=== PATIENT | female | born 1945 | race Caucasian/White ===

== ENCOUNTER 2016-08-24 09:00 | Inpatient (IN) ==
--- NOTE | 2016-08-24 09:12 | Emergency Department Note ---
Disposition Clinical Impression: Acute exacerbation of chronic obstructive airways disease Acute and chronic respiratory failure Qualifiers: Respiratory failure complication: hypoxia Qualified Code(s): J96.21 - Acute and chronic respiratory failure with hypoxia Warfarin toxicity Qualifiers: Encounter type: initial encounter Injury intent: accidental or unintentional Qualified Code(s): T45.511A - Poisoning by anticoagulants, accidental ( unintentional), initial encounter Disposition: Admitted As Inpatient Referrals: Christoph Hughes DO [Primary Care Provider] - SOB HPI - General Stated Complaint: DEBBIE, COPD Time Seen by Provider: 08/24/16 09:10 Source: patient Mode of arrival: ambulatory Limitations: no limitations Nursing Notes Reviewed: Yes Vital Signs Reviewed: Yes - History of Present Illness Pt Subjective Complaint: shortness of breath, cough Onset (ago): day(s) (3) Context: recent illness Severity: moderate Consistency/Duration: constant, gradually worsening Improves with: oxygen, rest, bronchodilators Worsens with: lying flat, exertion Known history of: COPD Treatment prior to arrival: oxygen Cough present: Yes Cough Description: Involuntary Cough Frequency: Intermittent Sputum production: Yes Sputum Amount: Scant Sputum Color: Clear - Related Data Home oxygen amount: 2 liters Home Medications Medication Instructions Recorded Confirmed Albuterol Sulfate [Albuterol 1 - 2 puff IH Q4HR PRN 11/24/15 04/16/16 Inhaler] Allopurinol [Zyloprim 100 MG] 100 mg PO DAILY 11/24/15 04/16/16 Bran/Gum/Fib/Na/Psyl/Kelp/Pec 1,000 mg PO DAILY 11/24/15 04/16/16 [Fiber 6 Tablet] Budesonide/Formoterol 160/4.5 2 puff IH BIDR 11/24/15 04/16/16 [Symbicort 160/4.5] Calcium Carbonate [Calcium] 500 mg PO BID 11/24/15 04/16/16 Cholecalciferol (D-3) [Vitamin D] 2,000 unit PO DAILY 11/24/15 04/16/16 Esomeprazole Magnesium [Nexium] 40 mg PO DAILY 11/24/15 04/16/16 Fluticasone Propionate Nasal 1 spray NS DAILY 11/24/15 04/16/16 [Flonase] Folic Acid 1 mg PO DAILY 11/24/15 04/16/16 Furosemide [Lasix] 40 mg PO BID 11/24/15 04/16/16 Gabapentin [Neurontin] 200 mg PO HS 11/24/15 04/16/16 Loratadine [Claritin] 10 mg PO DAILY 11/24/15 04/16/16 Metoprolol XL (24 HR) Succ [Toprol 12.5 mg PO BID 11/24/15 04/16/16 Xl] Montelukast [Singulair] 10 mg PO DAILY 11/24/15 04/16/16 Nitroglycerin [Nitrostat] 0.4 mg SL AD PRN 11/24/15 04/16/16 Nortriptyline [Pamelor] 10 mg PO HS 11/24/15 04/16/16 Potassium Chloride [K-Tab ER] 20 meq PO BID 11/24/15 04/16/16 Roflumilast [Daliresp] 500 mcg PO DAILY 11/24/15 04/16/16 Vitamin B Complex [B Complex] 1 tab PO DAILY 11/24/15 04/16/16 Warfarin [Coumadin] 5 mg PO AD 11/24/15 04/16/16 L. Rhamnosus GG/Inulin [Culturelle 1 tab PO BID 12/17/15 04/16/16 Capsule] Umeclidinium [place] [Incruse 1 puff IH DAILY 12/17/15 04/16/16 Ellipta] Atorvastatin [Lipitor] 10 mg PO HS 01/01/16 04/16/16 Docusate Sodium [Dok] 200 mg PO BID 01/01/16 04/16/16 Previous Rx's Medication Instructions Recorded Amoxicillin/Clavulanate [Augmentin] 875 mg PO BIDWM #14 tablet 04/12/16 Fluconazole [Diflucan] 100 mg PO DAILY #7 tablet 04/12/16 PredniSONE [Prednisone] 10 mg PO DAILY #63 tab.ds.pk 04/12/16 Pantoprazole [Protonix] 40 mg IV DAILY vial 04/17/16 PredniSONE [Prednisone] 50 mg PO DAILY #5 tablet 06/05/16 Sulfamethoxazole/Trimeth DS 1 each PO BID #14 tablet 06/05/16 [Bactrim DS] Allergies Allergy/AdvReac Type Severity Reaction Status Date / Time ceftriaxone [From Rocephin] Allergy Severe Hives Verified 06/05/16 09:12 ciprofloxacin [From Cipro HC] Allergy Severe Hives Verified 06/05/16 09:12 levofloxacin [From Levaquin] Allergy Severe Hives Verified 06/05/16 09:12 vancomycin Allergy Severe Rash Verified 06/05/16 09:12 hydrocortisone Allergy Intermediate Hives Verified 06/05/16 09:12 [From [facility]] All systems ED: reviewed and negative except as stated. Constitutional: Denies: fever Respiratory: Reports: cough, dyspnea, wheezes Gastrointestinal: Denies: nausea, vomiting, diarrhea Past Medical History - Past Medical History Source: patient, old records reviewed, nursing notes reviewed Medical history: Reports: arthritis, atrial fibrillation, cardiomyopathy, CHF, COPD, fibromyalgia, hypertension, myocardial infarction, osteoporosis, RA, other Surgical history: Reports: colectomy Psychiatric history: Reports: no psych history - Social History Smoking Status: Former smoker Smokeless Tobacco Status: No Alcohol use: Reports: none Drug use: Reports: none Physical Exam - General Limitations: no limitations General appearance: alert, in no apparent distress - Head Head exam: atraumatic, normocephalic, normal inspection - Eye Eye exam: Present: normal appearance, PERRL, EOMI - Expanded Eye Exam Pupils: Left: reactive - ENT ENT exam: normal exam, normal oropharynx, mucous membranes moist - Expanded ENT Exam External ear exam: Present: normal external inspection Mouth exam: Present: normal external inspection Teeth exam: Present: normal inspection Throat exam: Present: normal inspection - Neck Neck exam: Present: normal inspection, full ROM, trachea midline - Chest Chest inspection: Present: normal inspection, symmetric chest wall rise - Respiratory Respiratory exam: Present: wheezes (scattered, dyspneic speaks in short phrases) - Cardiovascular Cardiovascular exam: Present: regular rate, normal rhythm, normal heart sounds - Abdominal Exam Abdominal exam: Present: soft, Non-Tender. Absent: tenderness, distention, guarding, rebound, rigidity - Extremities Exam Extremities exam: Present: normal inspection, full ROM. Absent: tenderness, pedal edema - Expanded Upper Extremity Exam Shoulder exam: Present: normal inspection, full ROM Arm exam: Present: normal inspection, full ROM Elbow exam: Present: normal inspection, full ROM Forearm/Wrist exam: Present: normal inspection, full ROM Hand exam: Present: other (clubbing of nails) Vascular exam: Normal: capillary refill, radial pulse - Expanded Lower Extremity Exam Hip/Pelvis exam: Present: normal inspection, full ROM Upper leg exam: Present: normal inspection, full ROM Knee exam: Present: normal inspection, full ROM Lower leg exam: Present: normal inspection, full ROM Ankle exam: Present: normal inspection, full ROM Foot/toe exam: Present: normal inspection, full ROM Neurovascular/Tendon exam: Absent: motor deficit, sensory deficit, tendon deficit - Back Exam Back exam: Present: normal inspection, full ROM. Absent: tenderness - Neurological Exam Neurological exam: Present: alert, oriented X3 - Expanded Neurological Exam Patient oriented to: Present: person, place, time Coma Scale Eye Opening: Spontaneous Coma Scale Motor Response: Obeys Commands Coma Scale Verbal Response: Oriented Coma Scale Total: 15 - Psychiatric Psychiatric exam: Present: normal affect, normal mood - Skin Skin exam: Present: warm, dry, intact, normal color Course Vital Signs Temperature 98.1 F 08/24/16 09:04 Pulse Rate 86 08/24/16 09:04 Respiratory Rate 20 08/24/16 09:04 Blood Pressure 116/70 08/24/16 09:04 O2 Sat by Pulse Oximetry 100 08/24/16 09:04 Temperature 98.1 F 08/24/16 09:04 Pulse Rate 86 08/24/16 09:04 Respiratory Rate 21 08/24/16 09:45 Blood Pressure 116/70 08/24/16 09:04 O2 Sat by Pulse Oximetry 98 08/24/16 09:45 Oxygen Delivery Oxygen Delivery Nasal Cannula Shortness of Breath/Dyspnea - Differential Diagnosis Likely: acute exacerbation of chronic obstructive airways disease, congestive heart failure, pneumonia, asthma with exacerbation, pulmonary embolism, pneumothorax, arrhythmia - Medical Records Medical records reviewed: Yes I reviewed the patient's medical records. - Lab Data Lab results reviewed: Yes I reviewed the patient's lab results. Result diagrams: 08/24/16 09:44 08/24/16 09:44 Lab Results 08/24/16 08/24/16 08/24/16 Range/Units 09:44 09:44 09:44 WBC 7.6 (4.3-11.1) K/mcL RBC 4.74 (3.82-4.97) M/mcL Hgb 12.7 (11.5-15.4) g/dL Hct 39.5 (35.3-44.9) % MCV 83.3 (83.0-100.0) fL MCH 26.8 L (28.0-33.3) pg MCHC 32.2 (31.6-35.5) g/dL RDW 15.1 H (11.5-14.5) % Plt Count 171 (140-400) K/mcL MPV 10.1 (9.4-12.4) fL Immature Gran % 0.4 (0-4) % Seg Neutrophils % 78.0 % Lymphocytes % 11.6 % Monocytes % 9.5 % Eosinophils % 0.0 % Basophils % 0.5 % Neutrophils # 5.9 (1.6-8.9) K/mcL Lymphocytes # 0.9 (0.6-4.6) K/mcL Monocytes # 0.7 (0.0-1.3) K/mcL Eosinophils # 0.0 (0.0-0.6) K/mcL Basophils # 0.0 (0.0-0.2) K/mcL PT (9.4-12.1) Seconds INR APTT (26.0-36.0) Seconds Sodium 135 L (136-145) mEq/L Potassium 3.2 L (3.5-4.5) mEq/L Chloride 101 (98-109) mEq/L Carbon Dioxide 24 (19-29) mEq/L BUN 17 (7-20) mg/dL Creatinine 0.86 (0.57-1.11) mg/dL Est GFR ( Amer) > 60 (> 60) Est GFR (Non-Af Amer) > 60 (> 60) BUN/Creatinine Ratio 20 (6-26) Glucose 78 (70-99) mg/dL Calculated Osmolality 280 (280-300) Calcium 9.0 (8.6-10.8) mg/dL Troponin I 0.00 (0-0.03) ng/mL B-Natriuretic Peptide (0-100) pg/mL 08/24/16 08/24/16 Range/Units 09:44 09:44 WBC (4.3-11.1) K/mcL RBC (3.82-4.97) M/mcL Hgb (11.5-15.4) g/dL Hct (35.3-44.9) % MCV (83.0-100.0) fL MCH (28.0-33.3) pg MCHC (31.6-35.5) g/dL RDW (11.5-14.5) % Plt Count (140-400) K/mcL MPV (9.4-12.4) fL Immature Gran % (0-4) % Seg Neutrophils % % Lymphocytes % % Monocytes % % Eosinophils % % Basophils % % Neutrophils # (1.6-8.9) K/mcL Lymphocytes # (0.6-4.6) K/mcL Monocytes # (0.0-1.3) K/mcL Eosinophils # (0.0-0.6) K/mcL Basophils # (0.0-0.2) K/mcL PT 88.8 H* (9.4-12.1) Seconds INR 7.7 H* APTT 80.6 H (26.0-36.0) Seconds Sodium (136-145) mEq/L Potassium (3.5-4.5) mEq/L Chloride (98-109) mEq/L Carbon Dioxide (19-29) mEq/L BUN (7-20) mg/dL Creatinine (0.57-1.11) mg/dL Est GFR ( Amer) (> 60) Est GFR (Non-Af Amer) (> 60) BUN/Creatinine Ratio (6-26) Glucose (70-99) mg/dL Calculated Osmolality (280-300) Calcium (8.6-10.8) mg/dL Troponin I (0-0.03) ng/mL B-Natriuretic Peptide 132 H (0-100) pg/mL - Radiology Data Radiology results reviewed: Yes I reviewed the patient's radiology results. - EKG Data EKG attestation: Yes I reviewed and interpreted this EKG. EKG shows normal: Reports: sinus rhythm Rate: Reports: normal (85) Rhythm: Reports: NSR [place]/QRS: Reports: normal Interpretation: Reports: no acute changes
[2016-08-24] MEDS ORDERED: Ipratropium/Albuterol Neb 3 ML IH ONE (09:21)
[2016-08-24] MEDS ORDERED: methylPREDNISolone 125 MG/2 ML VIAL IVP ONE (09:21)
[2016-08-24 09:53] LABS: Basophils % 0.5 %; Hematocrit 39.5 % (35.3-44.9); Hemoglobin 12.7 g/dL (11.5-15.4); Immature Granulocytes % 0.4 % (0-4); Lymphocytes # 0.9 K/mcL (0.6-4.6); Lymphocytes % 11.6 %; Mean Corpuscular HGB Conc 32.2 g/dL (31.6-35.5); Mean Corpuscular Hemoglobin 26.8 pg (28.0-33.3); Mean Corpuscular Volume 83.3 fL (83.0-100.0); Mean Platelet Volume 10.1 fL (9.4-12.4); Monocytes # 0.7 K/mcL (0.0-1.3); Monocytes % 9.5 %; Neutrophils # 5.9 K/mcL (1.6-8.9); Platelet Count 171 K/mcL (140-400); Red Blood Count 4.74 M/mcL (3.82-4.97); Red Cell Distribution Width 15.1 % (11.5-14.5)
[2016-08-24 10:00] LABS: Activated Partial Thrombo Time 80.6 Seconds (26.0-36.0)
[2016-08-24 10:07] LABS: BUN/Creatinine Ratio 20 (6-26); Blood Urea Nitrogen 17 mg/dL (7-20); Carbon Dioxide 24 mEq/L (19-29); Chloride 101 mEq/L (98-109); Glucose 78 mg/dL (70-99); INR 7.7; Osmolality,Calculated 280 (280-300); Potassium 3.2 mEq/L (3.5-4.5); Prothrombin Time 88.8 Seconds (9.4-12.1); Sodium 135 mEq/L (136-145); eGFR For African Americans > 60 (> 60); eGFR For Non-African Americans > 60 (> 60)
[2016-08-24] MEDS ORDERED: Doxycycline 100 MG CAPSULE PO ONE (10:39)
[2016-08-24] MEDS ORDERED: Acetaminophen 325 MG TABLET PO PRN (10:53)
[2016-08-24] MEDS ORDERED: Ondansetron 4 MG/2 ML VIAL IVP PRN (10:53)
[2016-08-24] MEDS: Budesonide/Formoterol 160/4.5 MDI IH SCH ×2 (11:16→19:43)
[2016-08-24] MEDS: Ipratropium/Albuterol Neb 3 ML IH SCH ×3 (11:16→19:43)
--- NOTE | 2016-08-24 11:19 | Internal Med History&Physical ---
Date of Encounter: 08/24/16 Time of Encounter: 10:50 Assessment and Plan (1) Acute exacerbation of chronic obstructive airways disease Current visit: Yes Status: Acute Secondary to sinusitis. Today, she comes because of shortness of breath and productive cough. A week ago she developed upper respiratory symptoms with runny nose and postnasal drip. 2 days later her shortness of breath and cough worsen with increase amount of a brownish color sputum. no fever. No chills. No hemoptysis. Chest x-ray showed unchanged bibasilar opacities and blunting of left costophrenic angle. Albuterol Atrovent nebulizations IV Solu-Medrol Mucinex Oral doxycycline (2) Supratherapeutic INR Current visit: Yes Status: Acute INR 7.7. Upon questioning, patient stated that last June her INR was 2.3, INR goal is 2.5-3.5. She admits not eating well due to her respiratory symptoms and that might have contributed to her INR being so high. History of MVR with St Tj mechanical valve in 2007 on anticoagulation with Coumadin. Patient had an episode of acute blood loss anemia secondary to large retroperitoneal hematoma/right psoas hematoma with hemoperitoneum and right pericolic gutter with associated supratherapeutic INR 7.1 on 04/17/16. Hold Coumadin. close monitoring of INR and hemoglobin. No external bleeding. Patient is hemodynamically stable. (3) Chronic respiratory failure with hypoxia Current visit: Yes Status: Acute COPD, oxygen dependent at 2 L NC at bedtime and prn at baseline. (4) CKD (chronic kidney disease) stage 3, GFR 30-59 ml/min Current visit: No Status: Chronic at baseline. avoid nephrotoxins as possible. (5) H/O mitral valve replacement with mechanical valve Current visit: No Status: Chronic MVR with St Tj mechanical valve in 2007 on anticoagulation with Coumadin. Patient had an episode of acute blood loss anemia secondary to large retroperitoneal hematoma/right psoas hematoma with hemoperitoneum and right pericolic gutter with associated supratherapeutic INR 7.1 on 04/17/16. Patient has a MediPort because of hard to get IV access on her. INR is 7.7. Upon questioning, patient stated that last June her INR was 2.3 , INR goal is 2.5-3.5. She admits not eating well due to her respiratory symptoms and that might have contributed to her INR being so high. (6) Hypertension Current visit: No Status: Chronic BP is adequate Qualifiers: Hypertension type: essential hypertension Qualified Code(s): I10 - Essential (primary) hypertension (7) Warfarin toxicity Current visit: Yes Status: Acute INR 7.7. plan as above Qualifiers: Encounter type: initial encounter Injury intent: accidental or unintentional Qualified Code(s): T45.511A - Poisoning by anticoagulants, accidental (unintentional), initial encounter Internal Medicine - H&P: HPI Chief complaint: Progress shortness of breath and productive cough for 5 days. Admitted From: Home Plans for Post Hospital Care: Home History of present illness: Ms. Dewitt is a 70 year old female with past medical history of COPD, oxygen dependent at 2 L NC at bedtime and prn, CKD 3, and MVR with St Tj mechanical valve in 2007 on anticoagulation with Coumadin. Patient had an episode of acute blood loss anemia secondary to large retroperitoneal hematoma/right psoas hematoma with hemoperitoneum and right pericolic gutter with associated supratherapeutic INR 7.1 on 04/17/16. Patient has a MediPort because of hard to get IV access on her. Today, she comes because of shortness of breath and productive cough. A week ago she developed upper respiratory symptoms with runny nose and postnasal drip. 2 days later her shortness of breath and cough worsen with increase amount of a brownish color sputum. no fever. No chills. No hemoptysis. No bleeding. No abdominal pain. No urinary complaints. No focal deficit. No lower extremity edema. No Skin lesions. In ED, patient was in respiratory distress. She received duo nebs, IV Solu-Medrol 125 mg x 1 and oral doxycycline. INR is 7.7. Upon questioning, patient stated that last June her INR was 2.3, INR goal is 2.5-3.5. She admits not eating well due to her respiratory symptoms and that might have contributed to her INR being so high. Past Med Surg Social Fam HX - Past Medical History Medical history: arthritis, atrial fibrillation, cardiomyopathy, CHF, COPD, fibromyalgia, hypertension, myocardial infarction, osteoporosis, RA, other Psychiatric history: no psych history - Past Surgical History Surgical History: colectomy - Social History Smoking Status: Former smoker Smokeless Tobacco Status: No Alcohol use: none Drug use: none - Family History Mother Living Status: Hx Family Respiratory Disorders: Yes (emphysema) Hx Family Cancer: Yes Internal Medicine - H&P: Meds Albuterol Sulfate [Albuterol Inhaler] 1 - 2 puff IH Q4HR PRN 11/24/15 [History] Allopurinol [Zyloprim 100 MG] 100 mg PO DAILY 11/24/15 [History] Bran/Gum/Fib/Na/Psyl/Kelp/Pec [Fiber 6 Tablet] 1,000 mg PO DAILY 11/24/15 [ History] Budesonide/Formoterol 160/4.5 [Symbicort 160/4.5] 2 puff IH BIDR 11/24/15 [ History] Calcium Carbonate [Calcium] 500 mg PO BID 11/24/15 [History] Cholecalciferol (D-3) [Vitamin D] 2,000 unit PO DAILY 11/24/15 [History] Esomeprazole Magnesium [Nexium] 40 mg PO DAILY 11/24/15 [History] Fluticasone Propionate Nasal [Flonase] 1 spray NS DAILY 11/24/15 [History] Folic Acid 1 mg PO DAILY 11/24/15 [History] Furosemide [Lasix] 40 mg PO BID 11/24/15 [History] Gabapentin [Neurontin] 200 mg PO HS 11/24/15 [History] Loratadine [Claritin] 10 mg PO DAILY 11/24/15 [History] Metoprolol XL (24 HR) Succ [Toprol Xl] 12.5 mg PO BID 11/24/15 [History] Montelukast [Singulair] 10 mg PO DAILY 11/24/15 [History] Nitroglycerin [Nitrostat] 0.4 mg SL AD PRN 11/24/15 [History] Nortriptyline [Pamelor] 10 mg PO HS 11/24/15 [History] Potassium Chloride [K-Tab ER] 20 meq PO BID 11/24/15 [History] Roflumilast [Daliresp] 500 mcg PO DAILY 11/24/15 [History] Vitamin B Complex [B Complex] 1 tab PO DAILY 11/24/15 [History] Warfarin [Coumadin] 5 mg PO AD 11/24/15 [History] L. Rhamnosus GG/Inulin [Culturelle Capsule] 1 tab PO BID 12/17/15 [History] Umeclidinium [place] [Incruse Ellipta] 1 puff IH DAILY 12/17/15 [History] Atorvastatin [Lipitor] 10 mg PO HS 01/01/16 [History] Docusate Sodium [Dok] 200 mg PO BID 01/01/16 [History] Amoxicillin/Clavulanate [Augmentin] 875 mg PO BIDWM #14 tablet 04/12/16 [Rx] Fluconazole [Diflucan] 100 mg PO DAILY #7 tablet 04/12/16 [Rx] PredniSONE [Prednisone] 10 mg PO DAILY #63 tab.ds.pk 04/12/16 [Rx] Pantoprazole [Protonix] 40 mg IV DAILY vial 04/17/16 [Rx] PredniSONE [Prednisone] 50 mg PO DAILY #5 tablet 06/05/16 [Rx] Sulfamethoxazole/Trimeth DS [Bactrim DS] 1 each PO BID #14 tablet 06/05/16 [Rx] Allergies ceftriaxone [From Rocephin] Allergy (Severe, Verified 06/05/16 09:12) Hives ciprofloxacin [From Cipro HC] Allergy (Severe, Verified 06/05/16 09:12) Hives levofloxacin [From Levaquin] Allergy (Severe, Verified 06/05/16 09:12) Hives vancomycin Allergy (Severe, Verified 06/05/16 09:12) Rash hydrocortisone [From Cipro HC] Allergy (Intermediate, Verified 06/05/16 09:12) Hives All Systems PM: A 10-system review of systems was performed and is negative for pertinent findings except as documented above in the HPI. - Constitutional Vitals: Temp Pulse Resp BP Pulse Ox 98.1 F 91 20 116/81 100 08/24/16 09:04 08/24/16 11:00 08/24/16 11:00 08/24/16 11:00 08/24/16 11:00 General appearance: Present: cooperative, A&O X 3, pleasant, no acute distress, answers questions appropriately Exam: Speaking full sentences. - Head Head exam: Present: atraumatic, normocephalic - Eye Eye exam: Present: PERRL, sclera anicteric - ENT ENT exam: Present: mucous membranes dry - Neck Neck exam general surgery: Present: supple, trachea midline. Absent: lymphadenopathy - Respiratory Respiratory exam: Present: decreased breath sounds, wheezes (Mild wheezes) - Cardiovascular Cardiovascular exam: Present: RRR - GI/Abdominal GI/Abdominal exam: Present: normal bowel sounds, soft. Absent: distended, tenderness - Extremities Exam Extremities exam: Present: radial pulses palpable and symetrical. Absent: pedal edema - Back Exam Back exam: Absent: CVA tenderness (L), CVA tenderness (R) - Neurological Exam Neurological exam: Present: alert, oriented X3, no focal deficits, strengths equal and symetr throughout. Absent: facial droop, speech deficit - Skin Skin exam: Absent: rash Internal Med - H&P Results - Labs CBC & Chem 7: 08/24/16 09:44 08/24/16 09:44 - EKG Data Prior EKG available for review: yes When compared to previous EKG: there is no significant change EKG comments: 08/24/16 11:29 SR Hr 85
[2016-08-24] MEDS ORDERED: Albuterol 2.5 MG/3 ML NEBULIZER IH PRN (11:27)
[2016-08-24] MEDS: Doxycycline 100 MG CAPSULE PO SCH (21:39)
[2016-08-25] MEDS: Ipratropium/Albuterol Neb 3 ML IH SCH ×7 (01:02→22:47)
[2016-08-25 05:02] LABS: Basophils % 0.2 %; Hematocrit 33.9 % (35.3-44.9); Immature Granulocytes % 0.2 % (0-4); Lymphocytes % 11.4 %; Mean Corpuscular HGB Conc 32.7 g/dL (31.6-35.5); Mean Corpuscular Hemoglobin 27.3 pg (28.0-33.3); Mean Corpuscular Volume 83.5 fL (83.0-100.0); Mean Platelet Volume 10.8 fL (9.4-12.4); Monocytes # 0.8 K/mcL (0.0-1.3); Neutrophils # 7.1 K/mcL (1.6-8.9); Platelet Count 178 K/mcL (140-400); Red Blood Count 4.06 M/mcL (3.82-4.97); Segmented Neutrophils % 79.2 %
[2016-08-25 05:07] LABS: Hemoglobin 11.1 g/dL (11.5-15.4)
[2016-08-25 05:15] LABS: Prothrombin Time 89.6 Seconds (9.4-12.1)
[2016-08-25 05:16] LABS: INR 7.8
[2016-08-25 05:37] LABS: BUN/Creatinine Ratio 27 (6-26); Blood Urea Nitrogen 29 mg/dL (7-20); Calcium 8.7 mg/dL (8.6-10.8); Carbon Dioxide 24 mEq/L (19-29); Chloride 105 mEq/L (98-109); Glucose 105 mg/dL (70-99); Magnesium 1.5 mg/dL (1.6-2.6); Osmolality,Calculated 292 (280-300); Phosphorous 3.8 mg/dL (2.3-4.7); Potassium 3.5 mEq/L (3.5-4.5); Sodium 138 mEq/L (136-145); eGFR For African Americans > 60 (> 60); eGFR For Non-African Americans 50 (> 60)
[2016-08-25] MEDS: Doxycycline 100 MG CAPSULE PO SCH ×2 (08:14→20:44)
[2016-08-25] MEDS: predniSONE 20 MG TABLET PO SCH (08:15)
[2016-08-25] MEDS: Budesonide/Formoterol 160/4.5 MDI IH SCH ×2 (08:17→20:04)
[2016-08-25] MEDS ORDERED: Benzonatate 100 MG CAPSULE PO PRN (10:12)
[2016-08-25] MEDS ORDERED: *HR* Acetaminophen w/Cod 300-30 mg 1 TAB TABLET PO PRN (10:12)
[2016-08-25] MEDS ORDERED: Roflumilast [Daliresp] 500 MCG) PO SCH (10:15)
--- NOTE | 2016-08-25 10:22 | Internal Med Progress Note ---
Date of Encounter: 08/25/16 Time of Encounter: 09:15 - Assessment and plan (1) Acute exacerbation of chronic obstructive airways disease Current Visit: Yes Status: Acute Assessment and plan: Continue aerosols, prednisone. Added Fenesin. Continue doxycycline. Chest x- ray unremarkable for acute processes. She does currently have increased O2 requirement. Tessalon Perles during the day for cough, codeine at bedtime as needed for cough. She is still more short of breath than usual. She continues to have a mildly productive cough and had a scant amount of hemoptysis this morning, we will continue to trend. She is able to speak in complete sentences. ITS Impressions Chest X-Ray 08/24/16 09:21 IMPRESSION: 1. Grossly unchanged bibasilar opacification. 2. Unchanged blunting of the left costophrenic angle, which may be related to pleural fluid versus volume loss. D/ / Yong Aguila MD / Yong Aguila MD Interpreting Provider: Yong Aguila MD (2) Supratherapeutic INR Current Visit: Yes Status: Acute Assessment and plan: No signs of active bleeding. Patient had a scant amount of hemoptysis this morning, no signs of active bleeding. Likely secondary to bronchial irritation. No indication for reversal agent at this time. (3) Acute and chronic respiratory failure Current Visit: Yes Status: Acute Assessment and plan: At home, patient uses 2 L per nasal cannula intermittently as needed as well as at night. She is currently on 3 L continuously, we will continue to adjust (4) COPD (chronic obstructive pulmonary disease) Current Visit: No Status: Chronic Qualifiers: COPD type: unspecified COPD Qualified Code(s): J44.9 - Chronic obstructive pulmonary disease, unspecified (5) Constipation Current Visit: No Status: Chronic Qualifiers: Constipation type: unspecified constipation type Qualified Code(s): K59.00 - Constipation, unspecified (6) DVT prophylaxis Current Visit: No Status: Acute Assessment and plan: Supratherapeutic INR (7) CKD (chronic kidney disease) stage 3, GFR 30-59 ml/min Current Visit: No Status: Chronic Assessment and plan: stable; will continue to trend (8) Diastolic heart failure Current Visit: No Status: Chronic Assessment and plan: No acute exacerbation. She is on furosemide at home, suspect chronic diastolic heart failure. Lasix and potassium supplementation continued. Euvolemic on examination. Qualifiers: Heart failure chronicity: chronic Qualified Code(s): I50.32 - Chronic diastolic (congestive) heart failure (9) H/O mitral valve replacement with mechanical valve Current Visit: No Status: Chronic Assessment and plan: Goal INR 2.5-3.5 (10) Hypertension Current Visit: No Status: Chronic Assessment and plan: Controlled, borderline hypotensive at times, we will continues to trend and adjust medications as indicated. Qualifiers: Hypertension type: essential hypertension Qualified Code(s): I10 - Essential (primary) hypertension (11) Anxiety Current Visit: No Status: Chronic - Subjective Interval history: Agency and examined. On examination, patient sitting upright in bed watching television. Patient continued to endorse shortness of breath above her norm. She is continuing to endorse coughing. This morning, she had a scant amount of hemoptysis in her sputum. She is endorsing chest pain with coughing. - Constitutional Vitals: Temp Pulse Resp BP Pulse Ox 97.6 F 89 20 107/69 97 08/25/16 07:47 08/25/16 07:47 08/25/16 07:47 08/25/16 07:47 08/25/16 08:17 General appearance: Present: cooperative, mild distress (moderate), A&O X 3, pleasant, answers questions appropriately - Head Head exam: Present: atraumatic, normocephalic - Eye Eye exam: Present: PERRL, conjuntiva pink, sclera anicteric Pupils: Present: PERRL - Neck Neck exam general surgery: Present: supple, trachea midline. Absent: lymphadenopathy - Respiratory Respiratory exam: Present: accessory muscle use, decreased breath sounds, prolonged expiratory phase, respiratory distress. Absent: rales, rhonchi, wheezes - Cardiovascular Cardiovascular exam: Present: RRR, +S1, +S2. Absent: diastolic murmur, gallop, rubs, systolic murmur - GI/Abdominal GI/Abdominal exam: Present: normal bowel sounds, soft, no peritoneal signs. Absent: distended, tenderness - Extremities Exam Extremities exam: Present: warm, radial pulses palpable and symetrical. Absent : calf tenderness, cyanotic, pedal edema - Neurological Exam Neurological exam: Present: alert, CN II-XII intact, oriented X3, no focal deficits, strengths equal and symetr throughout. Absent: pronater drift, facial droop, speech deficit - Skin Skin exam: Present: dry, intact, pallor, warm Internal Medicine: Result - Labs CBC & Chem 7: 08/25/16 04:48 08/25/16 04:48 Labs: Short CBC 08/25/16 Range/Units 04:48 WBC 8.9 (4.3-11.1) K/mcL Hgb 11.1 L D (11.5-15.4) g/dL Hct 33.9 L (35.3-44.9) % Plt Count 178 (140-400) K/mcL Neutrophils # 7.1 (1.6-8.9) K/mcL BMP 08/25/16 04:48 Sodium 138 Potassium 3.5 Chloride 105 Carbon Dioxide 24 BUN 29 H D Creatinine 1.08 Glucose 105 H Calcium 8.7 - ABG Interpretation ABG results: PT/INR, D-dimer PT 89.6 Seconds (9.4-12.1) H* 08/25/16 04:48 Consult Discharge Plan - Plan
[2016-08-25] MEDS: Loratadine 10 MG TABLET PO SCH (11:40)
[2016-08-25] MEDS: Furosemide 40 MG TABLET PO SCH ×2 (11:40→20:45)
[2016-08-25] MEDS: Metoprolol XL (24 HR) Succ 25 MG TAB.ER.24H PO SCH ×2 (11:40→20:44)
[2016-08-25] MEDS: Fluticasone Propionate Nasal 50 MCG/SPRAY BOTTLE NS SCH (13:32)
--- NOTE | 2016-08-25 17:49 | Electrocardiograph Report ---
[place] [id number] Test Date: 2016-08-24 Pat Name: Yasmeen Dewitt Department: 103 Room: 3B48 Gender: F Hub Borer: : 1945 Requested By: Tony Montelongo Order Number: [id number] Reading MD: Amelia Page Measurements Intervals [place] Rate: 85 P: 50 [place]: 148 QRS: 36 QRSD: 87 T: 70 QT: 381 QTc: 423 Interpretive Statements SINUS RHYTHM LOW QRS VOLTAGE IN EXTREMITY LEADS Electronically Signed On 08-25-2016 17:47:34 EST by Amelia Page
[2016-08-25] MEDS ORDERED: Gabapentin 100 MG CAPSULE PO SCH (21:00)
[2016-08-26 04:09] LABS: Basophils % 0.3 %; Eosinophils % 0.1 %; Hematocrit 35.5 % (35.3-44.9); Hemoglobin 11.7 g/dL (11.5-15.4); Immature Granulocytes % 0.7 % (0-4); Lymphocytes # 1.4 K/mcL (0.6-4.6); Lymphocytes % 15.3 %; Mean Corpuscular Hemoglobin 27.4 pg (28.0-33.3); Mean Corpuscular Volume 83.1 fL (83.0-100.0); Mean Platelet Volume 10.5 fL (9.4-12.4); Monocytes # 0.9 K/mcL (0.0-1.3); Monocytes % 9.8 %; Neutrophils # 6.7 K/mcL (1.6-8.9); Platelet Count 194 K/mcL (140-400); Red Blood Count 4.27 M/mcL (3.82-4.97); Red Cell Distribution Width 15.3 % (11.5-14.5); Segmented Neutrophils % 73.8 %
[2016-08-26 04:22] LABS: BUN/Creatinine Ratio 38 (6-26); Blood Urea Nitrogen 34 mg/dL (7-20); Calcium 9.3 mg/dL (8.6-10.8); Carbon Dioxide 27 mEq/L (19-29); Chloride 105 mEq/L (98-109); Glucose 101 mg/dL (70-99); Magnesium 1.5 mg/dL (1.6-2.6); Osmolality,Calculated 300 (280-300); Potassium 3.7 mEq/L (3.5-4.5); Sodium 141 mEq/L (136-145); eGFR For African Americans > 60 (> 60); eGFR For Non-African Americans > 60 (> 60)
[2016-08-26] MEDS: Ipratropium/Albuterol Neb 3 ML IH SCH ×3 (04:23→11:49)
[2016-08-26 04:37] LABS: INR 3.6; Prothrombin Time 40.2 Seconds (9.4-12.1)
[2016-08-26 07:14] VITALS: BP 116/77
[2016-08-26] MEDS: Furosemide 40 MG TABLET PO SCH (08:22)
[2016-08-26] MEDS: Doxycycline 100 MG CAPSULE PO SCH (08:22)
[2016-08-26] MEDS: Fluticasone Propionate Nasal 50 MCG/SPRAY BOTTLE NS SCH (08:23)
[2016-08-26] MEDS: predniSONE 20 MG TABLET PO SCH (08:24)
[2016-08-26] MEDS: Metoprolol XL (24 HR) Succ 25 MG TAB.ER.24H PO SCH (08:24)
[2016-08-26] MEDS: Budesonide/Formoterol 160/4.5 MDI IH SCH (08:41)
[2016-08-26] MEDS ORDERED: Roflumilast [Daliresp] 500 MCG) PO SCH (09:00)
[2016-08-26] MEDS ORDERED: Folic Acid 1 MG TABLET PO SCH (09:00)
--- NOTE | 2016-08-26 09:52 | Discharge Summary ---
Date of Encounter: 08/26/16 Time of Encounter: 08:45 - Discharge Diagnosis (1) Acute exacerbation of chronic obstructive airways disease Priority: Primary Status: Acute Comments: Patient stating she was nearly back to her baseline on day of discharge. She did qualify for 2 L per nasal cannula continuously. Follow-up outpatient. (2) Supratherapeutic INR Priority: Primary Status: Acute Comments: Nearly resolved with INR 3.6 on the discharge. I spoke to Coumadin clinic prior to discharge to adjust her warfarin dosing. (3) Acute and chronic respiratory failure Priority: Primary Status: Acute (4) COPD (chronic obstructive pulmonary disease) Priority: Secondary Status: Chronic Qualifiers: COPD type: unspecified COPD Qualified Code(s): J44.9 - Chronic obstructive pulmonary disease, unspecified (5) Constipation Priority: Secondary Status: Chronic Qualifiers: Constipation type: unspecified constipation type Qualified Code(s): K59.00 - Constipation, unspecified (6) DVT prophylaxis Priority: Primary Status: Acute Comments: Supratherapeutic INR while admitted (7) CKD (chronic kidney disease) stage 3, GFR 30-59 ml/min Priority: Secondary Status: Chronic Comments: Normal renal functioning on the day of discharge, follow-up outpatient (8) Diastolic heart failure Priority: Secondary Status: Chronic Comments: No acute exacerbation. She is on furosemide at home for chronic diastolic heart failure. Lasix and potassium supplementation continued. Euvolemic on examination. Follow-up outpatient. Qualifiers: Heart failure chronicity: chronic Qualified Code(s): I50.32 - Chronic diastolic (congestive) heart failure (9) H/O mitral valve replacement with mechanical valve Priority: Secondary Status: Chronic (10) Hypertension Priority: Secondary Status: Chronic Comments: Controlled, follow-up outpatient Qualifiers: Hypertension type: essential hypertension Qualified Code(s): I10 - Essential (primary) hypertension (11) Anxiety Priority: Secondary Status: Chronic - Discharge Medications Prescriptions: Benzonatate [Tessalon] 100 mg PO TID PRN #20 capsule PRN Reason: Cough Doxycycline 100 mg PO BID #10 capsule GuaiFENesin ER [Mucinex] 600 mg PO BID #14 tbbp.12hr Oxygen 2 l IN CONT #1 each PredniSONE 10 mg PO DAILY #41 tablet Warfarin [Coumadin] 5 mg PO SUMOWETHSA #30 tablet Warfarin [Coumadin] 7.5 mg PO TUFR #15 tablet Home Medications: Albuterol Sulfate [Albuterol Inhaler] 1 - 2 puff IH Q4HR PRN 11/24/15 [History] Allopurinol [Zyloprim 100 MG] 100 mg PO DAILY 11/24/15 [History] Bran/Gum/Fib/Na/Psyl/Kelp/Pec [Fiber 6 Tablet] 1,000 mg PO DAILY 11/24/15 [ History] Budesonide/Formoterol 160/4.5 [Symbicort 160/4.5] 2 puff IH BIDR 11/24/15 [ History] Calcium Carbonate [Calcium] 500 mg PO BID 11/24/15 [History] Cholecalciferol (D-3) [Vitamin D] 2,000 unit PO DAILY 11/24/15 [History] Esomeprazole Magnesium [Nexium] 40 mg PO DAILY 11/24/15 [History] Fluticasone Propionate Nasal [Flonase] 1 spray NS DAILY 11/24/15 [History] Folic Acid 1 mg PO DAILY 11/24/15 [History] Furosemide [Lasix] 40 mg PO BID 11/24/15 [History] Gabapentin [Neurontin] 200 mg PO HS 11/24/15 [History] Loratadine [Claritin] 10 mg PO DAILY 11/24/15 [History] Metoprolol XL (24 HR) Succ [Toprol Xl] 12.5 mg PO BID 11/24/15 [History] Montelukast [Singulair] 10 mg PO DAILY 11/24/15 [History] Nitroglycerin [Nitrostat] 0.4 mg SL Q5M PRN 11/24/15 [History] Nortriptyline [Pamelor] 10 mg PO HS 11/24/15 [History] Potassium Chloride [K-Tab ER] 20 meq PO BID 11/24/15 [History] Roflumilast [Daliresp] 500 mcg PO DAILY 11/24/15 [History] Vitamin B Complex [B Complex] 1 tab PO DAILY 11/24/15 [History] Umeclidinium [place] [Incruse Ellipta] 1 puff IH DAILY 12/17/15 [History] Atorvastatin [Lipitor] 10 mg PO HS 01/01/16 [History] Docusate Sodium [Dok] 300 mg PO BID 01/01/16 [History] Albuterol Neb [Proventil Neb] 2.5 mg IH Q4HR PRN 08/25/16 [History] Bifidobacterium Infantis [Align] 4 mg PO DAILY 08/25/16 [History] Benzonatate [Tessalon] 100 mg PO TID PRN #20 capsule 08/26/16 [Rx] Doxycycline 100 mg PO BID #10 capsule 08/26/16 [Rx] GuaiFENesin ER [Mucinex] 600 mg PO BID #14 tbbp.12hr 08/26/16 [Rx] Oxygen 2 l IN CONT #1 each 08/26/16 [Rx] PredniSONE 10 mg PO DAILY #41 tablet 08/26/16 [Rx] Warfarin [Coumadin] 5 mg PO SUMOWETHSA #30 tablet 08/26/16 [Rx] Warfarin [Coumadin] 7.5 mg PO TUFR #15 tablet 08/26/16 [Rx] Allergies/Adverse Reactions: Allergies ceftriaxone [From Rocephin] Allergy (Severe, Verified 08/25/16 08:19) Hives ciprofloxacin [From Cipro HC] Allergy (Severe, Verified 08/25/16 08:19) Hives levofloxacin [From Levaquin] Allergy (Severe, Verified 08/25/16 08:19) Hives vancomycin Allergy (Severe, Verified 08/25/16 08:19) Rash hydrocortisone [From Cipro HC] Allergy (Intermediate, Verified 08/25/16 08:19) Hives Date of admission: 08/24/16 11:00 Primary care physician: Christoph Hughes Discharging clinician: Rachel Gonzales Anticipated date of discharge: 08/26/16 - Patient Status Disposition: Home, Self-Care Condition: Fair Functional capacity at discharge: independent ambulation Overall status at discharge: patient is progressing back to baseline - Discharge Instructions Follow Up With: Christoph Hughes DO [Primary Care Provider] - (Please follow up with in 5-7 days ) Coagulation, CLinic [Other] Forms: ED Satisfaction Letter Additional Instructions: Follow-up with primary care provider within one to 2 weeks, follow-up with coagulation clinic this Wednesday at 1:30 PM - Diet and Activity Activity: increase activity as tolerated, wear oxygen at all times Diet: regular diet Hospital course: Ms. Dewitt is a 70 year old female with past medical history of COPD on 2 L nasal cannula at night and as needed, chronic kidney disease stage III, mitral valve replacement mechanical valve on Coumadin, diastolic heart failure, former tobacco abuse. Patient presented to the emergency department chief complaint shortness of breath and productive cough 1 week. Patient's symptoms started 1 week prior to presentation with URI symptoms with runny nose and postnasal drip. 2 days after the symptoms, shortness of breath and cough worsened and sputum became brownish colored. She denied fever or chills. She denied hemoptysis or signs of active bleeding. She denied abdominal pain or urinary complaints. She denied lower extremity edema. Workup in the emergency department notable for supratherapeutic INR of 7.7. Chest x-ray unremarkable for acute processes. Patient was admitted to the hospitalist service for further evaluation and management. She was treated for COPD exacerbation. Her Coumadin was held and she was admitted and observed over the course of 3 days. She did not have any signs of active bleeding and she remained hemodynamically stable and no reversal agents were indicated during this admission. On day of discharge, INR 3.6. I spoke to Anthony, the pharmacist at the coagulation clinic, who recommended changing her dosing of Coumadin from 10 mg twice a week and 7.5 mg the other days down to 7.5 mg twice a week and 5 mg on the other days. She is discharged on a Wednesday and is going to follow up with the clinic on Wednesday. She did require continuous oxygen during this admission and on day of discharge, she qualified for continuous supplemental oxygenation. On day of discharge, she stated that her shortness of breath had nearly returned to her baseline. She was discharged home in stable condition with close outpatient follow-up recommended. ITS Impressions Chest X-Ray 08/24/16 09:21 IMPRESSION: 1. Grossly unchanged bibasilar opacification. 2. Unchanged blunting of the left costophrenic angle, which may be related to pleural fluid versus volume loss. D/ / Yong Aguila MD / Yong Aguila MD Interpreting Provider: Yong Aguila MD - Time Spent with Patient Total time spent providing and/or coordinating discharge services: - Constitutional Vitals: Temp Pulse Resp BP Pulse Ox 97.7 F 106 16 116/77 98 08/26/16 07:11 08/26/16 07:11 08/26/16 08:41 08/26/16 07:11 08/26/16 08:41 General appearance: Present: cooperative, mild distress (Baseline), A&O X 3, pleasant, answers questions appropriately - Head Head exam: Present: atraumatic, normocephalic - Eye Eye exam: Present: PERRL, conjuntiva pink, sclera anicteric Pupils: Present: PERRL - Neck Neck exam general surgery: Present: supple, trachea midline. Absent: lymphadenopathy - Respiratory Respiratory exam: Present: accessory muscle use, decreased breath sounds (Fair to good aeration). Absent: rales, respiratory distress, rhonchi, wheezes - Cardiovascular Cardiovascular exam: Present: RRR, +S1, +S2. Absent: diastolic murmur, gallop, rubs, systolic murmur - GI/Abdominal GI/Abdominal exam: Present: normal bowel sounds, soft, no peritoneal signs. Absent: distended, tenderness - Extremities Exam Extremities exam: Present: warm, radial pulses palpable and symetrical. Absent : calf tenderness, cyanotic, pedal edema - Neurological Exam Neurological exam: Present: alert, CN II-XII intact, normal gait, oriented X3, no focal deficits, strengths equal and symetr throughout. Absent: pronater drift, facial droop, speech deficit - Skin Skin exam: Present: dry, intact, normal color, warm
[2016-08-26] MEDS: Loratadine 10 MG TABLET PO SCH (10:29)
== END 2016-08-26 12:28 | disposition home or self-care (01) | DRG 190 ==
LOC: EMEROO 09:00 → 3BNU 09:00 → SUATTDRO 11:00 → 3BNU 11:35
PROVIDERS: ADMIT Internal Medicine; ATTEND Nurse Practitioner Family

== ENCOUNTER 2016-09-13 09:36 | Inpatient (IN) ==
[2016-09-13] MEDS ORDERED: methylPREDNISolone 125 MG/2 ML VIAL IVP ONE (10:01)
[2016-09-13] MEDS ORDERED: Ipratropium/Albuterol Neb 3 ML IH ONE (10:01)
--- NOTE | 2016-09-13 10:06 | Emergency Department Note ---
Disposition Clinical Impression: Pneumonia Qualifiers: Pneumonia type: due to unspecified organism Laterality: bilateral Lung location : lower lobe of lung Qualified Code(s): J18.9 - Pneumonia, unspecified organism Disposition: Admitted As Inpatient Condition: Fair Time of Disposition: 15:44 SOB HPI - General Chief Complaint: ED Shortness of Breath/Dyspnea Stated Complaint: DEBBIE, coughing Time Seen by Provider: 09/13/16 09:42 Source: patient Limitations: no limitations Nursing Notes Reviewed: Yes Vital Signs Reviewed: Yes - History of Present Illness Patient is a 71-year-old female who presents to [facility] ED with a chief complaint of difficulty breathing. States her symptoms have worsened over the last 2 days. She was recently hospitalized for COPD exacerbation/pneumonia and placed on doxycycline and a steroid burst followed by a taper. States she just finished her last bit of medication on and then started getting worse again. Denies any nausea, vomiting, fever or chills. No chest pain or abdominal pain. No problems with urination or bowel movements. Past medical history significant for COPD and mechanical heart valve on Coumadin. Pt Subjective Complaint: shortness of breath, cough Onset (ago): day(s) Context: recent illness Severity: moderate Consistency/Duration: gradually worsening Improves with: nothing Worsens with: coughing Known history of: COPD Associated symptoms: Reports: denies other symptoms, cough, wheezing, sputum production. Denies: chest pain, fever, nausea/vomiting, abdominal pain Treatment prior to arrival: none Cough present: Yes Cough Description: Involuntary Cough Frequency: Intermittent Sputum production: Yes Sputum Amount: Moderate Sputum Color: Yellow - Related Data Home oxygen amount: none Home Medications Medication Instructions Recorded Confirmed Albuterol Sulfate [Albuterol 1 - 2 puff IH Q4HR PRN 11/24/15 08/25/16 Inhaler] Allopurinol [Zyloprim 100 MG] 100 mg PO DAILY 11/24/15 08/25/16 Bran/Gum/Fib/Na/Psyl/Kelp/Pec 1,000 mg PO DAILY 11/24/15 08/25/16 [Fiber 6 Tablet] Budesonide/Formoterol 160/4.5 2 puff IH BIDR 11/24/15 08/25/16 [Symbicort 160/4.5] Calcium Carbonate [Calcium] 500 mg PO BID 11/24/15 08/25/16 Cholecalciferol (D-3) [Vitamin D] 2,000 unit PO DAILY 11/24/15 08/25/16 Esomeprazole Magnesium [Nexium] 40 mg PO DAILY 11/24/15 08/25/16 Fluticasone Propionate Nasal 1 spray NS DAILY 11/24/15 08/25/16 [Flonase] Folic Acid 1 mg PO DAILY 11/24/15 08/25/16 Furosemide [Lasix] 40 mg PO BID 11/24/15 08/25/16 Gabapentin [Neurontin] 200 mg PO HS 11/24/15 08/25/16 Loratadine [Claritin] 10 mg PO DAILY 11/24/15 08/25/16 Metoprolol XL (24 HR) Succ [Toprol 12.5 mg PO BID 11/24/15 08/25/16 Xl] Montelukast [Singulair] 10 mg PO DAILY 11/24/15 08/25/16 Nitroglycerin [Nitrostat] 0.4 mg SL Q5M PRN 11/24/15 08/25/16 Nortriptyline [Pamelor] 10 mg PO HS 11/24/15 08/25/16 Potassium Chloride [K-Tab ER] 20 meq PO BID 11/24/15 08/25/16 Roflumilast [Daliresp] 500 mcg PO DAILY 11/24/15 08/25/16 Vitamin B Complex [B Complex] 1 tab PO DAILY 11/24/15 08/25/16 Umeclidinium [place] [Incruse 1 puff IH DAILY 12/17/15 08/25/16 Ellipta] Atorvastatin [Lipitor] 10 mg PO HS 01/01/16 08/25/16 Docusate Sodium [Dok] 300 mg PO BID 01/01/16 08/25/16 Albuterol Neb [Proventil Neb] 2.5 mg IH Q4HR PRN 08/25/16 08/25/16 Bifidobacterium Infantis [Align] 4 mg PO DAILY 08/25/16 08/25/16 Previous Rx's Medication Instructions Recorded Benzonatate [Tessalon] 100 mg PO TID PRN #20 capsule 08/26/16 Doxycycline 100 mg PO BID #10 capsule 08/26/16 GuaiFENesin ER [Mucinex] 600 mg PO BID #14 tbbp.12hr 08/26/16 Oxygen 2 l IN CONT #1 each 08/26/16 PredniSONE 10 mg PO DAILY #41 tablet 08/26/16 Warfarin [Coumadin] 5 mg PO SUMOWETHSA #30 tablet 08/26/16 Warfarin [Coumadin] 7.5 mg PO TUFR #15 tablet 08/26/16 Allergies Allergy/AdvReac Type Severity Reaction Status Date / Time ceftriaxone [From Rocephin] Allergy Severe Hives Verified 08/25/16 08:19 ciprofloxacin [From Cipro HC] Allergy Severe Hives Verified 08/25/16 08:19 levofloxacin [From Levaquin] Allergy Severe Hives Verified 08/25/16 08:19 vancomycin Allergy Severe Rash Verified 08/25/16 08:19 hydrocortisone Allergy Intermediate Hives Verified 08/25/16 08:19 [From Cipro HC] All systems ED: reviewed and negative except as stated. Past Medical History - Past Medical History Attestation: Yes The following information was validated with the patient. Source: patient Medical history: Reports: arthritis, atrial fibrillation, cardiomyopathy, CHF, COPD, fibromyalgia, hypertension, myocardial infarction, osteoporosis, RA, other Surgical history: Reports: cholecystectomy, coronary bypass (CABG), heart valve replacement Psychiatric history: Reports: no psych history - Social History Smoking Status: Former smoker Smokeless Tobacco Status: No Alcohol use: Reports: none Drug use: Reports: none Physical Exam - General Limitations: no limitations General appearance: alert, in no apparent distress - Head Head exam: atraumatic, normocephalic, normal inspection - Eye Eye exam: Present: normal appearance, PERRL, EOMI - ENT ENT exam: normal exam, normal oropharynx, mucous membranes moist - Neck Neck exam: Present: normal inspection - Chest Chest inspection: Present: normal inspection, symmetric chest wall rise - Respiratory Respiratory exam: Present: wheezes (RLL), other - Cardiovascular Cardiovascular exam: Present: regular rate, normal rhythm, normal heart sounds - Abdominal Exam Abdominal exam: Present: soft, Non-Tender. Absent: tenderness, distention, guarding, rebound, rigidity - Extremities Exam Extremities exam: Present: normal inspection, full ROM. Absent: tenderness, pedal edema - Back Exam Back exam: Present: normal inspection, full ROM. Absent: tenderness - Neurological Exam Neurological exam: Present: alert, oriented X3 - Psychiatric Psychiatric exam: Present: normal affect, normal mood - Skin Skin exam: Present: warm, dry, intact, normal color Course Course Narrative: Patient seen and examined. Difficulty breathing and recent history of COPD/ pneumonia. Cardiopulmonary workup initiated. She does have right lower lobe wheezes and crackles. We will order her a breathing treatment and Solu-Medrol. - Reevaluation(s) Reevaluation #1: Patient's lab work appears unremarkable. Her chest x-ray does show slightly worsening pneumonia in the right lower lobe. We will treat with a dose of IV Zosyn here and she is allergic to multiple other antibiotics. We will do a CTA of the chest to rule out any other pathology and evaluate this persistent pneumonia better. Family is very concerned about the fact that this pneumonia has persisted and she is getting more short of breath. 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 It does show persistent pneumonia right greater than left. Due to failing outpatient treatment, we will go ahead and admit to hospitalist service. I spoke with nurse practitioner Brittany Paez who has accepted patient for admission. Time: 15:43 Vital Signs Temperature 98.3 F 09/13/16 09:36 Pulse Rate 92 09/13/16 09:36 Respiratory Rate 18 09/13/16 09:36 Blood Pressure 104/69 09/13/16 09:36 O2 Sat by Pulse Oximetry 97 09/13/16 09:36 Temperature 98.3 F 09/13/16 09:36 Pulse Rate 92 09/13/16 12:30 Respiratory Rate 16 09/13/16 12:30 Blood Pressure 112/72 09/13/16 12:30 O2 Sat by Pulse Oximetry 99 09/13/16 12:30 Oxygen Delivery Oxygen Delivery Nasal Cannula Shortness of Breath/Dyspnea - Medical Records Medical records reviewed: Yes I reviewed the patient's medical records. - Lab Data Lab results reviewed: Yes I reviewed the patient's lab results. Result diagrams: 09/13/16 10:21 09/13/16 10:21 Lab Results 09/13/16 09/13/16 09/13/16 Range/Units 10:21 10:21 10:21 WBC 7.6 (4.3-11.1) K/mcL RBC 4.83 (3.82-4.97) M/mcL Hgb 13.1 (11.5-15.4) g/dL Hct 41.2 (35.3-44.9) % MCV 85.3 (83.0-100.0) fL MCH 27.1 L (28.0-33.3) pg MCHC 31.8 (31.6-35.5) g/dL RDW 17.0 H (11.5-14.5) % Plt Count 156 (140-400) K/mcL MPV 10.3 (9.4-12.4) fL Immature Gran % 0.7 (0-4) % Seg Neutrophils % 80.8 % Lymphocytes % 9.7 % Monocytes % 8.4 % Eosinophils % 0.0 % Basophils % 0.4 % Neutrophils # 6.1 (1.6-8.9) K/mcL Lymphocytes # 0.7 (0.6-4.6) K/mcL Monocytes # 0.6 (0.0-1.3) K/mcL Eosinophils # 0.0 (0.0-0.6) K/mcL Basophils # 0.0 (0.0-0.2) K/mcL PT (9.4-12.1) Seconds INR APTT (26.0-36.0) Seconds Sodium 138 (136-145) mEq/L Potassium 3.2 L (3.5-4.5) mEq/L Chloride 100 (98-109) mEq/L Carbon Dioxide 28 (19-29) mEq/L BUN 15 (7-20) mg/dL Creatinine 0.86 (0.57-1.11) mg/dL Est GFR ( Amer) > 60 (> 60) Est GFR (Non-Af Amer) > 60 (> 60) BUN/Creatinine Ratio 17 (6-26) Glucose 83 (70-99) mg/dL Calculated Osmolality 286 (280-300) Lactic Acid 1.0 (0.5-2.2) mmol/L Calcium 8.5 L (8.6-10.8) mg/dL Troponin I (0-0.03) ng/mL B-Natriuretic Peptide (0-100) pg/mL 09/13/16 09/13/16 09/13/16 Range/Units 10:21 10:21 10:21 WBC (4.3-11.1) K/mcL RBC (3.82-4.97) M/mcL Hgb (11.5-15.4) g/dL Hct (35.3-44.9) % MCV (83.0-100.0) fL MCH (28.0-33.3) pg MCHC (31.6-35.5) g/dL RDW (11.5-14.5) % Plt Count (140-400) K/mcL MPV (9.4-12.4) fL Immature Gran % (0-4) % Seg Neutrophils % % Lymphocytes % % Monocytes % % Eosinophils % % Basophils % % Neutrophils # (1.6-8.9) K/mcL Lymphocytes # (0.6-4.6) K/mcL Monocytes # (0.0-1.3) K/mcL Eosinophils # (0.0-0.6) K/mcL Basophils # (0.0-0.2) K/mcL PT 30.8 H (9.4-12.1) Seconds INR 2.8 APTT 49.4 H (26.0-36.0) Seconds Sodium (136-145) mEq/L Potassium (3.5-4.5) mEq/L Chloride (98-109) mEq/L Carbon Dioxide (19-29) mEq/L BUN (7-20) mg/dL Creatinine (0.57-1.11) mg/dL Est GFR ( Amer) (> 60) Est GFR (Non-Af Amer) (> 60) BUN/Creatinine Ratio (6-26) Glucose (70-99) mg/dL Calculated Osmolality (280-300) Lactic Acid (0.5-2.2) mmol/L Calcium (8.6-10.8) mg/dL Troponin I 0.01 (0-0.03) ng/mL B-Natriuretic Peptide 80 (0-100) pg/mL - Radiology Data Radiology results reviewed: Yes I reviewed the patient's radiology results. Chest X-Ray 09/13/16 10:01 IMPRESSION: Patchy right basilar airspace disease may represent recurrent or persistent pneumonia slightly more prominent than the prior exam. Minimal blunting of the left costophrenic angle consistent with a miniscule effusion or pleural scar. D/ / Josias Menjivar MD / Josias Menjivar MD Interpreting Provider: Josias Menjivar MD Chest X-Ray 09/13/16 10:01 IMPRESSION: Patchy right basilar airspace disease may represent recurrent or persistent pneumonia slightly more prominent than the prior exam. Minimal blunting of the left costophrenic angle consistent with a miniscule effusion or pleural scar. D/ / Josias Menjivar MD / Josias Menjivar MD Interpreting Provider: Josias Menjivar MD Chest CTA 09/13/16 12:09 IMPRESSION: No findings to suggest large central pulmonary embolism. Improved aeration of the left lower lobe as compared to prior examination though there is heterogeneous consolidation within bilateral lower lobes, right greater than left, suggestive of pneumonia. Bibasilar mucous plugging and bronchiectasis. Enlarged mediastinal and hilar lymph nodes can be reactive or neoplastic. Follow-up to resolution is recommended. 2 subcentimeter pulmonary nodules have increased slightly as compared to prior though remain too small to characterize by PET. Given the underlying emphysema, malignancy cannot be excluded and continued attention on follow-up recommended. Atherosclerosis, including coronary artery calcification. D/ / Josias Moser MD / Josias Moser MD Interpreting Provider: Josias Moser MD - EKG Data EKG attestation: Yes I reviewed and interpreted this EKG. EKG results narrative: EKG done at 949 shows normal sinus rhythm with a rate of [address] elevation or depression. Normal axis. Attestation Statement - Attestation Attestation: Patient was seen with resident physician. I reviewed the history, physical, assessment and plan, and agree with the findings. I also personally evaluated this patient and had [id number] time with this patient. 71-year-old female patient presents to the emergency department with chief complaint shortness of breath. Patient was recently admitted to the hospital for COPD exacerbation recently finished a course of doxycycline. She said that her treatment stopped on she immediately began getting short of breath again. To the point that today she feels very short of breath and she said she is coughing up significant amount of brown stuff. She denies fevers or chills no chest pain no swelling of extremities she is on 2 L of home O2 for her COPD. On examination ENT is unremarkable. Heart normal. Lungs diffuse wheezing and rhonchi throughout slightly worse in the right base. Abdomen is soft and nontender. Extremities no swelling otherwise unremarkable. Neurologically intact. We will do pneumonia workup also treat patient for COPD exacerbation. Her pulse ox was 96% on home O2 2 L, Chest x-ray does appear to show a worsening pneumonia. This correlates with CT scan findings which were obtained because the patient's clinical parents was worse than her labs suggest. Family was concerned about attempting to discharge patient because she has essentially failed outpatient management. At this point we agree she is given a dose of IV Zosyn and will be brought into the hospital for IV antibiotics and further pulmonary management. Hospitalist was notified. I agree with resident physician assessment and plan.
[2016-09-13 10:29] LABS: Basophils % 0.4 %; Hematocrit 41.2 % (35.3-44.9); Hemoglobin 13.1 g/dL (11.5-15.4); Immature Granulocytes % 0.7 % (0-4); Lymphocytes # 0.7 K/mcL (0.6-4.6); Lymphocytes % 9.7 %; Mean Corpuscular HGB Conc 31.8 g/dL (31.6-35.5); Mean Corpuscular Hemoglobin 27.1 pg (28.0-33.3); Mean Corpuscular Volume 85.3 fL (83.0-100.0); Mean Platelet Volume 10.3 fL (9.4-12.4); Monocytes # 0.6 K/mcL (0.0-1.3); Monocytes % 8.4 %; Neutrophils # 6.1 K/mcL (1.6-8.9); Platelet Count 156 K/mcL (140-400); Red Blood Count 4.83 M/mcL (3.82-4.97); Segmented Neutrophils % 80.8 %
[2016-09-13 10:34] LABS: INR 2.8; Prothrombin Time 30.8 Seconds (9.4-12.1)
[2016-09-13 10:37] LABS: Activated Partial Thrombo Time 49.4 Seconds (26.0-36.0)
[2016-09-13 10:46] LABS: BUN/Creatinine Ratio 17 (6-26); Blood Urea Nitrogen 15 mg/dL (7-20); Calcium 8.5 mg/dL (8.6-10.8); Carbon Dioxide 28 mEq/L (19-29); Chloride 100 mEq/L (98-109); Glucose 83 mg/dL (70-99); Osmolality,Calculated 286 (280-300); Potassium 3.2 mEq/L (3.5-4.5); Sodium 138 mEq/L (136-145); eGFR For African Americans > 60 (> 60); eGFR For Non-African Americans > 60 (> 60)
[2016-09-13] MEDS ORDERED: Piperacillin/Tazobactam 3.375 GM in D5% in Water (Mini-Bag+) 100 ML IVPB ONE (10:57)
[2016-09-13] MEDS ORDERED: 0.9 % Sodium Chloride 1,000 ML IVC ONE (12:11)
[2016-09-13] MEDS ORDERED: Naloxone 0.4 MG/ML INJ IVP PRN (18:17)
[2016-09-13] MEDS ORDERED: Nitroglycerin 0.4 MG TAB.SUBL SL PRN (18:22)
[2016-09-13] MEDS ORDERED: *HR* Warfarin 5 MG TABLET PO SCH (18:30)
[2016-09-13] MEDS ORDERED: Albuterol 2.5 MG/3 ML NEBULIZER IH PRN (18:31)
[2016-09-13] MEDS: traMADol 50 MG TABLET PO PRN (20:04)
[2016-09-13] MEDS: Ipratropium/Albuterol Neb 3 ML IH SCH ×2 (20:33→23:32)
--- NOTE | 2016-09-13 22:09 | Internal Med History&Physical ---
<Isamar Cardona M - Last Filed: 09/14/16 01:10> Date of Encounter: 09/13/16 Time of Encounter: 22:07 Assessment and Plan (1) HCAP (healthcare-associated pneumonia) Current visit: Yes Status: Acute Patient presents with increasing productive cough and shortness of breath. She was recently discharged on August 26 for a COPD exacerbation. Chest x-ray showed patchy right basilar airspace disease recurrent or persistent pneumonia. CT of the chest showed heterogeneous consolidation in bilateral lower lobes right greater than left bibasilar mucous plugging and bronchiectasis. On exam patient has bilateral rhonchi and bilateral rales in the bases. Her blood cell count normal at 7.6. She is afebrile. Heart rate is in the 80s to 90s, blood pressure is on the low end of normal. She is satting 94% on 2 L. Lactic acid normal at 1.0. DuoNeb treatments 4 times a day Albuterol nebulizer every 2 hours when necessary Sputum culture ordered Blood cultures ordered Zosyn IV piggyback every 8 hours Patient has allergies to vancomycin, Levaquin and Rocephin. (2) Acute exacerbation of chronic obstructive pulmonary disease (COPD) Current visit: No Status: Acute Patient with productive cough, shortness of breath. She was recently discharged on August 26 with exacerbation of COPD and pneumonia. She was discharged on doxycycline and prednisone taper. She finished prednisone taper on , and has had increasing productive cough and difficulty in breathing since that time. She follows with Dr. Arteaga as an outpatient. Patient with rhonchi and crackles on exam. Continue home dose of Symbicort and Singulair DuoNeb treatments 4 times a day Albuterol every 2 hours when necessary Solu-Medrol 80 mg IV push twice a day Treat HCAP with Zosyn. Titrate oxygen to maintain oxygen saturation greater than 92%. (3) Chronic respiratory failure with hypoxia Current visit: No Status: Acute Patient follows with Dr. Gimenez as an outpatient. She has a diagnosis of COPD. Prior to her previous hospitalization she was not on oxygen. Postdischarge on 2 L nasal cannula in August. She is currently satting 94% on 2 L (4) Hypokalemia Current visit: Yes Status: Acute Potassium of 3.2. 40 mEq of by mouth potassium ordered. Serum Magnesium ordered. Recheck chemistry in the morning. (5) DVT prophylaxis Current visit: No Status: Acute Encourage ambulation Antiembolic stockings Patient on Coumadin and INR is therapeutic. Internal Medicine - H&P: HPI Chief complaint: shortness of breath Admitted From: Emergency Dept Plans for Post Hospital Care: Home History of present illness: Ms. Dewitt is a 71 year old female with hypertension, coronary artery disease, atrial fibrillation, mitral valve replacement on Coumadin, COPD who presented to the emergency department today with complaints of a productive cough and difficulty breathing. She reports she was admitted last month with COPD exacerbation and pneumonia and was discharged with a prednisone taper and antibiotic. She finished up her prednisone taper on and reports her cough started up again. She reports the cough is productive of thick green sputum. She reports shortness of breath. She wears 2 L at home and was satting 94% on 2 L. she denies any chest pain, palpitations, headache, dizziness or lightheadedness. She denies any nausea, vomiting, abdominal pain or diarrhea. Evaluation in the emergency department included a chest x-ray which showed patchy right basilar airspace disease recurrent or persistent pneumonia. CT of the chest showed a heterogeneous consolidation in bilateral lower lobes with right greater than left, bibasilar mucous plugging and bronchiectasis. white blood cell count was normal at 7.6. Patient was mildly hypokalemic with potassium of 3.2. Lactic acid was normal 1.0, troponin was normal at 0.01, BNP was normal at 80. Her INR was therapeutic at 2.8. EKG showed normal sinus rhythm with no ST elevations or depressions. On exam, patient is alert and oriented in no acute distress. Chest bilateral rhonchi and bilateral crackles in the bases. Past Med Surg Social Fam HX - Past Medical History Source: patient Medical history: arthritis, atrial fibrillation, cardiomyopathy, CHF, COPD, fibromyalgia, hypertension, myocardial infarction, osteoporosis, RA, other Psychiatric history: no psych history - Past Surgical History Surgical History: cholecystectomy, coronary bypass (CABG), heart valve replacement, orthopedic, other - Social History Smoking Status: Former smoker Smokeless Tobacco Status: No Alcohol use: none Drug use: none - Family History Mother Living Status: Hx Family Respiratory Disorders: Yes (emphysema) Hx Family Cancer: Yes Father Living Status: Age at : 62 Hx Family Cardiac Disorders: Yes Hx Family Cancer: Yes Internal Medicine - H&P: Meds Albuterol Sulfate [Albuterol Inhaler] 1 - 2 puff IH Q4HR PRN 11/24/15 [History] Allopurinol [Zyloprim 100 MG] 100 mg PO DAILY 11/24/15 [History] Bran/Gum/Fib/Na/Psyl/Kelp/Pec [Fiber 6 Tablet] 1,000 mg PO DAILY 11/24/15 [ History] Budesonide/Formoterol 160/4.5 [Symbicort 160/4.5] 2 puff IH BIDR 11/24/15 [ History] Calcium Carbonate [Calcium] 500 mg PO BID 11/24/15 [History] Cholecalciferol (D-3) [Vitamin D] 2,000 unit PO DAILY 11/24/15 [History] Esomeprazole Magnesium [Nexium] 40 mg PO DAILY 11/24/15 [History] Fluticasone Propionate Nasal [Flonase] 50 mcg NS DAILY 11/24/15 [History] Folic Acid 1 mg PO DAILY 11/24/15 [History] Furosemide [Lasix] 40 mg PO BID 11/24/15 [History] Gabapentin [Neurontin] 200 mg PO HS 11/24/15 [History] Loratadine [Claritin] 10 mg PO DAILY 11/24/15 [History] Metoprolol XL (24 HR) Succ [Toprol Xl] 12.5 mg PO BID 11/24/15 [History] Montelukast [Singulair] 10 mg PO DAILY 11/24/15 [History] Nitroglycerin [Nitrostat] 0.4 mg SL Q5M PRN 11/24/15 [History] Nortriptyline [Pamelor] 10 mg PO HS 11/24/15 [History] Potassium Chloride [K-Tab ER] 20 meq PO DAILY 11/24/15 [History] Roflumilast [Daliresp] 500 mcg PO DAILY 11/24/15 [History] Vitamin B Complex [B Complex] 1 tab PO DAILY 11/24/15 [History] Umeclidinium Telford [Incruse Ellipta] 1 puff IH DAILY 12/17/15 [History] Atorvastatin [Lipitor] 10 mg PO HS 01/01/16 [History] Docusate Sodium [Dok] 300 mg PO BID 01/01/16 [History] Albuterol Neb [Proventil Neb] 2.5 mg IH Q4HR PRN 08/25/16 [History] Bifidobacterium Infantis [Align] 4 mg PO DAILY 08/25/16 [History] Oxygen 2 l IN CONT #1 each 08/26/16 [Rx] Tramadol HCl [Tramadol HCl] 50 - 100 mg PO QID PRN 09/13/16 [History] Warfarin [Coumadin] 7.5 mg PO QPM 09/13/16 [History] Allergies ceftriaxone [From Rocephin] Allergy (Severe, Verified 08/25/16 08:19) Hives ciprofloxacin [From Cipro HC] Allergy (Severe, Verified 08/25/16 08:19) Hives levofloxacin [From Levaquin] Allergy (Severe, Verified 08/25/16 08:19) Hives vancomycin Allergy (Severe, Verified 08/25/16 08:19) Rash hydrocortisone [From Cipro HC] Allergy (Intermediate, Verified 08/25/16 08:19) Hives All Systems PM: A 10-system review of systems was performed and is negative for pertinent findings except as documented above in the HPI. - Constitutional Constitutional: no chills, no fever(s), no night sweats - EENT Eyes: no change in vision, no discharge, no pain, no photophobia Ears: no ear discharge, no ear pain, no tinnitus Nose, mouth and throat: no dysphagia, no nasal discharge, no neck pain, no sore throat - Cardiovascular Cardiovascular ROS IM: no chest pain, no diaphoresis, no dyspnea, no lightheadedness, no palpitations, no syncope - Respiratory Respiratory: cough, dyspnea, dyspnea on exertion, wheezing, excessive phlegm production - Gastrointestinal Gastrointestinal: no abdominal pain, no diarrhea, no hematemesis, no hematochezia, no melena, no nausea, no vomiting - Genitourinary Genitourinary: no change in urinary stream, no dysuria, no flank pain, no hematuria - Musculoskeletal Musculoskeletal ROS IM: no numbness, no tingling - Integumentary Integumentary IM: no rash, no unusual bruising - Neurological Neurological ROS: no confusion, no convulsions, no focal weakness, no numbness, no tingling, no tremor(s) - Hematologic/Lymphatic Hematologic/Lymphatic: no easy bruising - Constitutional Vitals: Temp Pulse Resp BP Pulse Ox 97.9 F 99 18 99/65 98 09/13/16 19:07 09/13/16 19:07 09/13/16 19:07 09/13/16 19:07 09/13/16 19:07 General appearance: Present: A&O X 3, pleasant, no acute distress - Head Head exam: Present: atraumatic, normocephalic - Eye Eye exam: Present: PERRL, conjuntiva pink, sclera anicteric Pupils: Present: PERRL - Neck Neck exam general surgery: Present: supple, trachea midline. Absent: lymphadenopathy - Respiratory Respiratory exam: Present: rales (bilateral bases), rhonchi (bilaterally). Absent: accessory muscle use, wheezes - Cardiovascular Cardiovascular exam: Present: +S1, +S2. Absent: diastolic murmur, gallop, rubs , systolic murmur - GI/Abdominal GI/Abdominal exam: Present: normal bowel sounds, soft, no peritoneal signs. Absent: distended, tenderness - Extremities Exam Extremities exam: Present: warm, radial pulses palpable and symetrical. Absent : calf tenderness, cyanotic, pedal edema - Neurological Exam Neurological exam: Present: CN II-XII intact, oriented X3, no focal deficits. Absent: facial droop, speech deficit - Skin Skin exam: Present: dry, intact Internal Med - H&P Results - Labs CBC & Chem 7: 09/13/16 10:21 09/13/16 10:21 - Diagnostic Studies Chest x-ray Additional comments: Chest X-Ray 09/13/16 10:01 IMPRESSION: Patchy right basilar airspace disease may represent recurrent or persistent pneumonia slightly more prominent than the prior exam. Minimal blunting of the left costophrenic angle consistent with a miniscule effusion or pleural scar. D/ / Josias Menjivar MD / Josias Menjivar MD Interpreting Provider: Josias Menjivar MD CT scan - chest Additional comments: Chest CTA 09/13/16 12:09 IMPRESSION: No findings to suggest large central pulmonary embolism. Improved aeration of the left lower lobe as compared to prior examination though there is heterogeneous consolidation within bilateral lower lobes, right greater than left, suggestive of pneumonia. Bibasilar mucous plugging and bronchiectasis. Enlarged mediastinal and hilar lymph nodes can be reactive or neoplastic. Follow-up to resolution is recommended. 2 subcentimeter pulmonary nodules have increased slightly as compared to prior though remain too small to characterize by PET. Given the underlying emphysema, malignancy cannot be excluded and continued attention on follow-up recommended. Atherosclerosis, including coronary artery calcification. D/ / Josias Moser MD / Josias Moser MD Interpreting Provider: Josias Moser MD <Eugenia Fried R - Last Filed: 09/14/16 03:57> Assessment and Plan (1) Bronchiectasis Current visit: Yes Status: Acute Continue zosyn. Pulmonary consult Qualifiers: Bronchiectasis type: with acute lower respiratory infection Qualified Code( s): J47.0 - Bronchiectasis with acute lower respiratory infection (2) Pulmonary nodule Current visit: Yes Status: Chronic Left upper lobe nodule Internal Medicine - H&P: HPI History of present illness: Ms. Dewitt is a 71 year old female All Systems PM: A 10-system review of systems was performed and is negative for pertinent findings except as documented above in the HPI. - Constitutional Vitals: Temp Pulse Resp BP Pulse Ox 97.5 F L 72 15 98/61 99 09/14/16 03:32 09/14/16 03:32 09/14/16 03:32 09/14/16 03:32 09/14/16 03:32 Internal Med - H&P Results - Labs CBC & Chem 7: 09/14/16 03:40 09/13/16 10:21 Labs: Short CBC 09/14/16 Range/Units 03:40 WBC 6.9 (4.3-11.1) K/mcL Hgb 11.1 L D (11.5-15.4) g/dL Hct 33.9 L (35.3-44.9) % Plt Count 146 (140-400) K/mcL Neutrophils # 5.5 (1.6-8.9) K/mcL - Attending Attestation I examined this patient and my medical decision-making was reviewed with the TELEPHONE DIRECTORY DELIVERER/ Advanced Practice Nurse. I agree with the documented findings, disposition and treatment plan as described except to the extent set forth below. 71 year old female with hypertension, coronary artery disease, atrial fibrillation, mitral valve replacement on Coumadin, COPD - presented to the emergency department today with complaints of shortness of breath and cough with brown/yellow productive sputum. Imaging in the emergency department showed heterogeneous consolidation within bilateral lower lobes, right greater than left, suggestive of pneumonia. Bibasilar mucous plugging and bronchiectasis. Pulmonary nodules and mediastinal and hilar lymphadenopathy. O/E: Bilateral posterior basal crackles heard basal crackles heard. A/P: Bilateral lower lobe pneumonia (R>L): and bronchiectasis. Pt has allergies to multiple antibiotics. Continue Zosyn. Will obtain sputum cultures. Will consult pulmonary physician due to increasing size of the pulmonary nodules.
[2016-09-13] MEDS: Metoprolol XL (24 HR) Succ 25 MG TAB.ER.24H PO SCH (22:16)
[2016-09-13] MEDS: Gabapentin 100 MG CAPSULE PO SCH (22:17)
[2016-09-13] MEDS: Budesonide/Formoterol 160/4.5 MDI IH SCH (23:30)
[2016-09-13] MEDS: Piperacillin/Tazobactam 3.375 GM in D5% in Water (Mini-Bag+) 100 ML IVPB SCH (23:41)
[2016-09-14 03:48] LABS: Basophils % 0.1 %; Hematocrit 33.9 % (35.3-44.9); Immature Granulocytes % 0.4 % (0-4); Immature Platelets 3.8 % (1.1-6.1); Lymphocytes % 10.5 %; Mean Corpuscular HGB Conc 32.7 g/dL (31.6-35.5); Mean Corpuscular Hemoglobin 27.5 pg (28.0-33.3); Mean Corpuscular Volume 83.9 fL (83.0-100.0); Mean Platelet Volume 10.3 fL (9.4-12.4); Monocytes % 8.5 %; Platelet Count 146 K/mcL (140-400); Red Blood Count 4.04 M/mcL (3.82-4.97); Red Cell Distribution Width 16.2 % (11.5-14.5); Segmented Neutrophils % 80.5 %
[2016-09-14 03:49] LABS: Lymphocytes # 0.7 K/mcL (0.6-4.6); Monocytes # 0.6 K/mcL (0.0-1.3); Neutrophils # 5.5 K/mcL (1.6-8.9)
[2016-09-14 03:50] LABS: Hemoglobin 11.1 g/dL (11.5-15.4)
[2016-09-14 04:04] LABS: BUN/Creatinine Ratio 23 (6-26); Blood Urea Nitrogen 22 mg/dL (7-20); Calcium 8.3 mg/dL (8.6-10.8); Carbon Dioxide 29 mEq/L (19-29); Chloride 101 mEq/L (98-109); Glucose 138 mg/dL (70-99); Osmolality,Calculated 290 (280-300); Potassium 3.7 mEq/L (3.5-4.5); Sodium 137 mEq/L (136-145); eGFR For African Americans > 60 (> 60); eGFR For Non-African Americans 57 (> 60)
[2016-09-14] MEDS: Ipratropium/Albuterol Neb 3 ML IH SCH ×4 (04:55→23:36)
[2016-09-14] MEDS ORDERED: methylPREDNISolone 125 MG/2 ML VIAL IVP SCH (06:00)
[2016-09-14] MEDS ORDERED: OXYGEN IH SCH (07:00)
--- NOTE | 2016-09-14 07:35 | Internal Med Progress Note ---
<Yeimi Ballard - Last Filed: 09/14/16 11:30> Date of Encounter: 09/14/16 Time of Encounter: 08:11 - Assessment and plan (1) HCAP (healthcare-associated pneumonia) Current Visit: Yes Status: Acute Assessment and plan: Patient with HCAP, Chest x-ray showed patchy right basilar airspace disease recurrent or persistent pneumonia. CT of the chest showed heterogeneous consolidation in bilateral lower lobes right greater than left bibasilar mucous plugging and bronchiectasis. Recent hospitalization with discharge 08/26 for COPD exacerbation. Zosyn day #2 Remains afebril, WBC 6.9 Patient oxygen saturation 99% on 3L NC, patient is on 2L at home Sputum culture preliminary report: gram positive cocci observed, final report pending Plan: -Continue zosyn -Cancel pulm consult, patient sees Dr. Arteaga who has been following the pulmonary nodules for some time. Plan to f/u outpatient. -Wean oxygent to 2L as able but titrate to keep >92% -Continue duonebs, solumedrol (2) Acute exacerbation of chronic obstructive airways disease Current Visit: Yes Status: Acute Assessment and plan: As above (3) Chronic respiratory failure with hypoxia Current Visit: No Status: Acute Assessment and plan: as above (4) Bronchiectasis Current Visit: Yes Status: Acute Assessment and plan: as above Qualifiers: Bronchiectasis type: with acute lower respiratory infection Qualified Code( s): J47.0 - Bronchiectasis with acute lower respiratory infection (5) Pulmonary nodule Current Visit: Yes Status: Chronic (6) Atrial fibrillation Current Visit: Yes Status: Acute Assessment and plan: History of afib, anticoagulated on coumadin. INR 2.8 09/13 Plan: -PT/INR today -Pharmacy to dose coumadin Qualifiers: Atrial fibrillation type: chronic Qualified Code(s): I48.2 - Chronic atrial fibrillation (7) Anemia Current Visit: Yes Status: Acute Assessment and plan: Hgb 09/14 11.1, Hgb 09/13 13.1 Patient has stated history of JERICHO, not currently on iron supplements. History of colon polyps, last colonoscopy 08/2105. Diarrhea yesterday with no blood or melena noted. Inr 2.8 09/13 May be hemodilutional. Will continue to follow. Plan: -PT/INR -Occult stool test Qualifiers: Anemia type: unspecified type Qualified Code(s): D64.9 - Anemia, unspecified (8) Hypokalemia Current Visit: Yes Status: Resolved Assessment and plan: Resolved, 3.7 (9) DVT prophylaxis Current Visit: Yes Status: Acute Assessment and plan: Encourage ambulation Antiembolic stockings Patient on Coumadin and INR is therapeutic. - Subjective Interval history: Patient seen and examined. She states that she feels better than yesterday. She does note that she feels SOB with ambulation. She is currently on 3L O2 via NC, and is normally on 2L at home. She is still coughing up brown/yellow sputum. She has been experiencing some nausea overnight. She states that she had 2 episodes of diarrhea yesterday that was "very loose." She did not notice any blood or melena, but admits that she did not look to check. She has a history of anemia and has been on iron supplements in the past, but has not been on them recently. She has a history of colon polyps, her last colonoscopy was in August 2015. She denies bloody stool, melena, hematuria, hematemesis or hemoptysis prior to admission. She did state that her INR was around 5 one week ago and that her coumadin dosing was adjusted. She states she was admitted to [facility] ICU for 2 weeks April 2016 with a hematoma. She denies CP, abdominal pain, vomiting, hemoptysis, hematemesis, hematuria, dysuria, bloody stool, melena. - Constitutional Vitals: Temp Pulse Resp BP Pulse Ox 97.8 F 78 20 124/71 99 09/14/16 07:05 09/14/16 07:05 09/14/16 07:05 09/14/16 07:05 09/14/16 07:05 General appearance: Present: cooperative, A&O X 3, pleasant, no acute distress, answers questions appropriately - Head Head exam: Present: atraumatic, normocephalic - Eye Eye exam: Present: EOMI, normal appearance, PERRL. Absent: nystagmus - ENT ENT exam: Present: mucous membranes moist - Neck Neck exam general surgery: Present: supple, trachea midline. Absent: lymphadenopathy, tenderness - Respiratory Respiratory exam: Present: decreased breath sounds, rales (b/l bases), rhonchi ( b/l). Absent: chest wall tenderness, respiratory distress Additional comments: Port in place left anterior chest. No surrounding erythema. Clubbing noted b/l - Cardiovascular Cardiovascular exam: Present: RRR, +S1, +S2. Absent: diastolic murmur, gallop, rubs, systolic murmur - GI/Abdominal GI/Abdominal exam: Present: normal bowel sounds, soft, no peritoneal signs. Absent: distended, tenderness - Extremities Exam Extremities exam: Present: normal capillary refill, warm, radial pulses palpable and symetrical. Absent: calf tenderness, cyanotic, pedal edema - Neurological Exam Neurological exam: Present: alert, oriented X3. Absent: facial droop, speech deficit - Psychiatric Psychiatric exam: Present: normal affect, normal mood - Skin Skin exam: Present: dry, intact, warm. Absent: erythema, rash Internal Medicine: Result - Labs CBC & Chem 7: 09/14/16 03:40 09/14/16 03:40 Labs: Short CBC 09/14/16 Range/Units 03:40 WBC 6.9 (4.3-11.1) K/mcL Hgb 11.1 L D (11.5-15.4) g/dL Hct 33.9 L (35.3-44.9) % Plt Count 146 (140-400) K/mcL Neutrophils # 5.5 (1.6-8.9) K/mcL BMP 09/14/16 03:40 Sodium 137 Potassium 3.7 Chloride 101 Carbon Dioxide 29 BUN 22 H Creatinine 0.97 Glucose 138 H Calcium 8.3 L - ABG Interpretation ABG results: PT/INR, D-dimer PT 30.8 Seconds (9.4-12.1) H 09/13/16 10:21 - VTE Documentation of Mechanical Device: Graduated compression elastic hosiery Consult Discharge Plan - Plan Referrals: Christoph Hughes DO [Primary Care Provider] - <Larry Jean-Baptiste - Last Filed: 09/14/16 18:18> - Constitutional Vitals: Temp Pulse Resp BP Pulse Ox 97.4 F L 93 16 95/61 98 09/14/16 16:12 09/14/16 16:12 09/14/16 16:12 09/14/16 16:12 09/14/16 16:12 Internal Medicine: Result - Labs CBC & Chem 7: 09/14/16 03:40 09/14/16 03:40 Labs: Short CBC 09/14/16 Range/Units 03:40 WBC 6.9 (4.3-11.1) K/mcL Hgb 11.1 L D (11.5-15.4) g/dL Hct 33.9 L (35.3-44.9) % Plt Count 146 (140-400) K/mcL Neutrophils # 5.5 (1.6-8.9) K/mcL BMP 09/14/16 03:40 Sodium 137 Potassium 3.7 Chloride 101 Carbon Dioxide 29 BUN 22 H Creatinine 0.97 Glucose 138 H Calcium 8.3 L - ABG Interpretation ABG results: PT/INR, D-dimer PT 46.4 Seconds (9.4-12.1) H* D 09/14/16 14:00 - Attending Attestation I examined this patient and my medical decision-making was reviewed with the ETHYL BLENDER/PA/Advanced Practice Nurse/Resident Physician. I agree with the documented findings, disposition and treatment plan as described except to the extent set forth below. home soon if start ambulation.
[2016-09-14] MEDS: Furosemide 40 MG TABLET PO SCH ×2 (08:06→17:35)
[2016-09-14] MEDS: Vitamin B Complex/Vit C/Vit E 1 EACH TABLET PO SCH (08:07)
[2016-09-14] MEDS: Metoprolol XL (24 HR) Succ 25 MG TAB.ER.24H PO SCH ×2 (08:07→21:30)
[2016-09-14] MEDS: Loratadine 10 MG TABLET PO SCH (08:08)
[2016-09-14] MEDS: Folic Acid 1 MG TABLET PO SCH (08:08)
[2016-09-14] MEDS: Cholecalciferol (D-3) 1,000 UNIT TABLET PO SCH (08:08)
[2016-09-14] MEDS: (Bifidobacterium Infantis [Align] 4 MG) PO SCH (08:09)
[2016-09-14] MEDS: [UNRECOGNIZED DRUG - OTHER] PO SCH (08:09)
[2016-09-14] MEDS: Piperacillin/Tazobactam 3.375 GM in D5% in Water (Mini-Bag+) 100 ML IVPB SCH ×2 (08:09→17:36)
[2016-09-14] MEDS: Fluticasone Propionate Nasal 50 MCG/SPRAY BOTTLE NS SCH (08:09)
[2016-09-14] MEDS: (Umeclidinium Bromide [Incruse Ellipta] 1 PUFF) IH SCH (08:10)
[2016-09-14] MEDS: (Roflumilast [Daliresp] 500 MCG) PO SCH (08:10)
[2016-09-14] MEDS: traMADol 50 MG TABLET PO PRN ×2 (08:21→19:57)
[2016-09-14] MEDS: Budesonide/Formoterol 160/4.5 MDI IH SCH ×2 (11:15→23:36)
[2016-09-14 14:13] LABS: INR 4.1
[2016-09-14 14:17] LABS: Prothrombin Time 46.4 Seconds (9.4-12.1)
--- NOTE | 2016-09-14 15:30 | Electrocardiograph Report ---
[place] [id number] Test Date: 2016-09-13 Pat Name: Yasmeen Dewitt Department: 105 Room: 3B14 Gender: F Coding Compliance Specialist: : [id number] Requested By: Janell Herrera Order Number: [id number] Reading MD: Greg Cadet MD Measurements Intervals [place] Rate: 89 P: 35 LA: 141 QRS: 32 QRSD: 82 T: 62 QT: 375 QTc: 421 Interpretive Statements SINUS RHYTHM Electronically Signed On 09-14-2016 15:29:07 EDT by Greg Cadet MD
[2016-09-14] MEDS: methylPREDNISolone 125 MG/2 ML VIAL IVP SCH (17:35)
[2016-09-14] MEDS: Gabapentin 100 MG CAPSULE PO SCH (21:37)
[2016-09-15] MEDS: Piperacillin/Tazobactam 3.375 GM in D5% in Water (Mini-Bag+) 100 ML IVPB SCH ×4 (00:11→23:24)
[2016-09-15] MEDS: Ipratropium/Albuterol Neb 3 ML IH SCH ×4 (04:25→22:58)
[2016-09-15 05:14] LABS: Basophils % 0.1 %; Hematocrit 36.6 % (35.3-44.9); Hemoglobin 11.9 g/dL (11.5-15.4); Immature Granulocytes % 0.4 % (0-4); Lymphocytes # 1.1 K/mcL (0.6-4.6); Lymphocytes % 12.1 %; Mean Corpuscular HGB Conc 32.5 g/dL (31.6-35.5); Mean Corpuscular Hemoglobin 27.5 pg (28.0-33.3); Mean Corpuscular Volume 84.7 fL (83.0-100.0); Mean Platelet Volume 10.2 fL (9.4-12.4); Monocytes # 0.5 K/mcL (0.0-1.3); Monocytes % 5.8 %; Neutrophils # 7.4 K/mcL (1.6-8.9); Platelet Count 155 K/mcL (140-400); Red Blood Count 4.32 M/mcL (3.82-4.97); Red Cell Distribution Width 16.6 % (11.5-14.5); Segmented Neutrophils % 81.6 %
[2016-09-15 05:18] LABS: INR 3.2; Prothrombin Time 35.2 Seconds (9.4-12.1)
[2016-09-15 05:24] LABS: BUN/Creatinine Ratio 24 (6-26); Blood Urea Nitrogen 26 mg/dL (7-20); Calcium 8.6 mg/dL (8.6-10.8); Carbon Dioxide 25 mEq/L (19-29); Chloride 104 mEq/L (98-109); Glucose 124 mg/dL (70-99); Osmolality,Calculated 294 (280-300); Potassium 3.4 mEq/L (3.5-4.5); Sodium 139 mEq/L (136-145); eGFR For African Americans > 60 (> 60); eGFR For Non-African Americans 50 (> 60)
[2016-09-15] MEDS: methylPREDNISolone 125 MG/2 ML VIAL IVP SCH ×2 (06:16→17:04)
[2016-09-15] MEDS: (Roflumilast [Daliresp] 500 MCG) PO SCH (08:11)
[2016-09-15] MEDS: [UNRECOGNIZED DRUG - OTHER] PO SCH (08:11)
[2016-09-15] MEDS: (Bifidobacterium Infantis [Align] 4 MG) PO SCH (08:11)
[2016-09-15] MEDS: (Umeclidinium Bromide [Incruse Ellipta] 1 PUFF) IH SCH (08:12)
[2016-09-15] MEDS: Metoprolol XL (24 HR) Succ 25 MG TAB.ER.24H PO SCH ×3 (08:16→21:00)
[2016-09-15] MEDS: Vitamin B Complex/Vit C/Vit E 1 EACH TABLET PO SCH (08:16)
[2016-09-15] MEDS: Cholecalciferol (D-3) 1,000 UNIT TABLET PO SCH (08:16)
[2016-09-15] MEDS: Loratadine 10 MG TABLET PO SCH (08:16)
[2016-09-15] MEDS: Folic Acid 1 MG TABLET PO SCH (08:17)
[2016-09-15] MEDS: Fluticasone Propionate Nasal 50 MCG/SPRAY BOTTLE NS SCH (08:17)
[2016-09-15] MEDS: Furosemide 40 MG TABLET PO SCH ×2 (08:17→17:04)
[2016-09-15] MEDS: Budesonide/Formoterol 160/4.5 MDI IH SCH ×2 (10:33→22:58)
--- NOTE | 2016-09-15 13:03 | Internal Med Progress Note ---
Date of Encounter: 09/15/16 Time of Encounter: 10:30 - Assessment and plan (1) HCAP (healthcare-associated pneumonia) Current Visit: Yes Status: Acute Assessment and plan: Continue Zosyn today Vitals WNL, no fever, no tachycardia WBC 9.0 today on CBC Pt is now back to the normal 2L that she wears at home, will continue Contine duonebs and steroids today. Monitor VS Mucinex 600mg po bid scheduled. Pt states that she just does not feel well still. Lungs with ronchi and wheezing in all post lobes. Pt states that cough is non-productive now and feels "tight". (2) Acute exacerbation of chronic obstructive airways disease Current Visit: Yes Status: Acute Assessment and plan: Plan as above. (3) Atrial fibrillation Current Visit: Yes Status: Acute Assessment and plan: INR therapeutic today 3.2. Pharmacy to continue to dose Coumadin. Monitor labs. Qualifiers: Atrial fibrillation type: chronic Qualified Code(s): I48.2 - Chronic atrial fibrillation (4) Anemia Current Visit: Yes Status: Acute Assessment and plan: Hgb 11.9 today. Pt is not on iron supplementation. Pt is aware that stool sample is needed for occult stool test, however she states that she is normally constipated and may not be able to provide sample. She denies n/v/d, hematachezia, hematemesis, melena, or abd pain. Will continue to monitor labs and vitals. PT/INR and Coumadin dosing by pharmacy. Qualifiers: Anemia type: unspecified type Qualified Code(s): D64.9 - Anemia, unspecified (5) Bronchiectasis Current Visit: Yes Status: Acute Assessment and plan: Plan as above Qualifiers: Bronchiectasis type: with acute lower respiratory infection Qualified Code( s): J47.0 - Bronchiectasis with acute lower respiratory infection (6) Pulmonary nodule Current Visit: Yes Status: Chronic Assessment and plan: Pt sees Dr. Arteaga and it is being monitored. (7) Hypokalemia Current Visit: Yes Status: Resolved Assessment and plan: Today, 3.4 KCl 20meq po now. Monitor labs. (8) Chronic respiratory failure with hypoxia Current Visit: No Status: Acute Assessment and plan: Plan as above - Time Spent With Patient less than 15 minutes - Subjective Interval history: Pt states that she is not feeling much better today. STates that cough is no longer productive and that she feels like it is "tight" now. She does not feel well enough to amb in dept or go home. Denies pain or fevers. - Constitutional Vitals: Temp Pulse Resp BP Pulse Ox 98.1 F 100 18 113/68 98 09/15/16 11:48 09/15/16 11:48 09/15/16 11:48 09/15/16 11:48 09/15/16 11:48 General appearance: Present: cooperative, A&O X 3, pleasant, no acute distress, answers questions appropriately - Head Head exam: Present: atraumatic, normal inspection - Eye Eye exam: Present: normal appearance, conjuntiva pink - ENT ENT exam: Present: mucous membranes moist, normal exam, normal external ear exam , normal oropharynx - Neck Neck exam general surgery: Present: normal inspection. Absent: lymphadenopathy , tenderness - Respiratory Respiratory exam: Present: decreased breath sounds, rhonchi, wheezes. Absent: chest wall tenderness, CTAB, stridor - Cardiovascular Cardiovascular exam: Present: RRR, +S1, +S2. Absent: diastolic murmur, systolic murmur - GI/Abdominal GI/Abdominal exam: Present: normal bowel sounds, soft. Absent: mass, tenderness - Extremities Exam Extremities exam: Present: full ROM, normal capillary refill, normal inspection , warm, radial pulses palpable and symetrical. Absent: calf tenderness, cyanotic, joint swelling, mottling, pedal edema, tenderness Additional comments: +2 johanna pedal pulses. - Neurological Exam Neurological exam: Present: alert, oriented X3. Absent: no focal deficits, facial droop, speech deficit Internal Medicine: Result - Labs CBC & Chem 7: 09/15/16 05:00 09/15/16 05:00 Labs: Short CBC 09/15/16 Range/Units 05:00 WBC 9.0 (4.3-11.1) K/mcL Hgb 11.9 (11.5-15.4) g/dL Hct 36.6 (35.3-44.9) % Plt Count 155 (140-400) K/mcL Neutrophils # 7.4 (1.6-8.9) K/mcL BMP 09/15/16 05:00 Sodium 139 Potassium 3.4 L Chloride 104 Carbon Dioxide 25 BUN 26 H Creatinine 1.08 Glucose 124 H Calcium 8.6 - ABG Interpretation ABG results: PT/INR, D-dimer PT 35.2 Seconds (9.4-12.1) H 09/15/16 05:00 - VTE Documentation of Mechanical Device: Graduated compression elastic hosiery Consult Discharge Plan - Plan Referrals: Christoph Hughes DO [Primary Care Provider] -
[2016-09-15] MEDS ORDERED: *HR* Warfarin 2.5 MG TABLET PO ONE (18:00)
[2016-09-15] MEDS ORDERED: Warfarin perPT PO PRN (18:00)
[2016-09-15] MEDS: Gabapentin 100 MG CAPSULE PO SCH (20:59)
[2016-09-16] MEDS: Ipratropium/Albuterol Neb 3 ML IH SCH ×3 (03:56→15:59)
[2016-09-16 03:58] LABS: Basophils % 0.2 %; Hematocrit 35.4 % (35.3-44.9); Hemoglobin 11.2 g/dL (11.5-15.4); Immature Granulocytes % 0.6 % (0-4); Lymphocytes # 1.1 K/mcL (0.6-4.6); Lymphocytes % 13.6 %; Mean Corpuscular HGB Conc 31.6 g/dL (31.6-35.5); Mean Corpuscular Hemoglobin 27.2 pg (28.0-33.3); Mean Corpuscular Volume 85.9 fL (83.0-100.0); Mean Platelet Volume 10.1 fL (9.4-12.4); Monocytes # 0.6 K/mcL (0.0-1.3); Monocytes % 7.5 %; Neutrophils # 6.5 K/mcL (1.6-8.9); Platelet Count 165 K/mcL (140-400); Red Blood Count 4.12 M/mcL (3.82-4.97); Segmented Neutrophils % 78.1 %
[2016-09-16 04:03] LABS: INR 2.2
[2016-09-16 04:11] LABS: Calcium 8.4 mg/dL (8.6-10.8); Potassium 3.7 mEq/L (3.5-4.5)
[2016-09-16] MEDS: methylPREDNISolone 125 MG/2 ML VIAL IVP SCH (04:58)
[2016-09-16] MEDS: Metoprolol XL (24 HR) Succ 25 MG TAB.ER.24H PO SCH (09:54)
[2016-09-16] MEDS: Loratadine 10 MG TABLET PO SCH (09:54)
[2016-09-16] MEDS: Folic Acid 1 MG TABLET PO SCH (09:54)
[2016-09-16] MEDS: Cholecalciferol (D-3) 1,000 UNIT TABLET PO SCH (09:54)
[2016-09-16] MEDS: Furosemide 40 MG TABLET PO SCH (09:55)
[2016-09-16] MEDS: Vitamin B Complex/Vit C/Vit E 1 EACH TABLET PO SCH (09:55)
[2016-09-16] MEDS: Piperacillin/Tazobactam 3.375 GM in D5% in Water (Mini-Bag+) 100 ML IVPB SCH (09:55)
[2016-09-16] MEDS: (Umeclidinium Bromide [Incruse Ellipta] 1 PUFF) IH SCH (09:56)
[2016-09-16] MEDS: [UNRECOGNIZED DRUG - OTHER] PO SCH (09:56)
[2016-09-16] MEDS: (Bifidobacterium Infantis [Align] 4 MG) PO SCH (09:56)
[2016-09-16] MEDS: Fluticasone Propionate Nasal 50 MCG/SPRAY BOTTLE NS SCH (09:56)
[2016-09-16] MEDS: (Roflumilast [Daliresp] 500 MCG) PO SCH (09:56)
[2016-09-16] MEDS: traMADol 50 MG TABLET PO PRN (10:11)
[2016-09-16] MEDS ORDERED: 0.9 % Sodium Chloride 1,000 ML IVC SCH (10:30)
[2016-09-16] MEDS: Budesonide/Formoterol 160/4.5 MDI IH SCH (11:02)
[2016-09-16 15:14] VITALS: BP 129/76
--- NOTE | 2016-09-16 17:03 | Discharge Summary ---
Date of Encounter: 09/16/16 Time of Encounter: 14:00 - Discharge Diagnosis (1) HCAP (healthcare-associated pneumonia) Priority: Primary Status: Acute Comments: Pt was recently inpatient for pna in Aug, doxycyline at that time. Pt now in Zosyn and states that she tolerates Augmentin well. Will be sent home on Augmentin 875mg po bid x 7 days. Pt states that she feels much better today. Lungs are clear ant and post. Pt has been afebrile, normotensive, and no leukocytosis. Chest xray showed patch y right basilar airspace disease recurrent or persistent pneumonia. Final sputum culture, few gram positive cocci , and moderate yeast. (2) Acute exacerbation of chronic obstructive airways disease Priority: Secondary Status: Chronic Comments: Pt is well controlled at home. Will continue home medications and will be treated for PNA with antibiotic and continue nebulizers and inhalers. Pts sats have been high 90s with 02. (3) Atrial fibrillation Priority: Secondary Status: Chronic Comments: Chronic. EKG on admission shows sinus rhythm rate 89, OK int 141, PRs 82, QTc 421. Apical and radial RRR, s1s2. Qualifiers: Atrial fibrillation type: chronic Qualified Code(s): I48.2 - Chronic atrial fibrillation (4) Anemia Priority: Secondary Status: Acute Comments: Hgb 11.2 today. Pt has stated history of JERICHO, does not take iron supplements. Qualifiers: Anemia type: unspecified type Qualified Code(s): D64.9 - Anemia, unspecified (5) Bronchiectasis Priority: Secondary Status: Acute Comments: Plan as above. Qualifiers: Bronchiectasis type: with acute lower respiratory infection Qualified Code( s): J47.0 - Bronchiectasis with acute lower respiratory infection (6) Pulmonary nodule Priority: Secondary Status: Chronic Comments: Pt follows with Dr. Arteaga for this. Will need to follow up as scheduled. (7) Hypokalemia Priority: Secondary Status: Resolved Comments: Resolved today. 3.7. (8) Chronic respiratory failure with hypoxia Priority: Secondary Status: Chronic Comments: Plan as above. Pt is back to baseline home 02 use of 2L . (9) Diastolic CHF Priority: Secondary Status: Chronic Comments: Chronic. Will continue home medications. Qualifiers: Congestive heart failure chronicity: unspecified congestive heart failure chronicity Qualified Code(s): I50.30 - Unspecified diastolic (congestive) heart failure - Discharge Medications Prescriptions: Amoxicillin/Clavulanate [Augmentin] 875 mg PO BIDWM #14 tablet PredniSONE 10 mg PO DAILY #31 tablet Home Medications: Albuterol Sulfate [Albuterol Inhaler] 1 - 2 puff IH Q4HR PRN 11/24/15 [History] Allopurinol [Zyloprim 100 MG] 100 mg PO DAILY 11/24/15 [History] Bran/Gum/Fib/Na/Psyl/Kelp/Pec [Fiber 6 Tablet] 1,000 mg PO DAILY 11/24/15 [ History] Budesonide/Formoterol 160/4.5 [Symbicort 160/4.5] 2 puff IH BIDR 11/24/15 [ History] Calcium Carbonate [Calcium] 500 mg PO BID 11/24/15 [History] Cholecalciferol (D-3) [Vitamin D] 2,000 unit PO DAILY 11/24/15 [History] Esomeprazole Magnesium [Nexium] 40 mg PO DAILY 11/24/15 [History] Fluticasone Propionate Nasal [Flonase] 50 mcg NS DAILY 11/24/15 [History] Folic Acid 1 mg PO DAILY 11/24/15 [History] Furosemide [Lasix] 40 mg PO BID 11/24/15 [History] Gabapentin [Neurontin] 200 mg PO HS 11/24/15 [History] Loratadine [Claritin] 10 mg PO DAILY 11/24/15 [History] Metoprolol XL (24 HR) Succ [Toprol Xl] 12.5 mg PO BID 11/24/15 [History] Montelukast [Singulair] 10 mg PO DAILY 11/24/15 [History] Nitroglycerin [Nitrostat] 0.4 mg SL Q5M PRN 11/24/15 [History] Nortriptyline [Pamelor] 10 mg PO HS 11/24/15 [History] Potassium Chloride [K-Tab ER] 20 meq PO DAILY 11/24/15 [History] Roflumilast [Daliresp] 500 mcg PO DAILY 11/24/15 [History] Vitamin B Complex [B Complex] 1 tab PO DAILY 11/24/15 [History] Umeclidinium [place] [Incruse Ellipta] 1 puff IH DAILY 12/17/15 [History] Atorvastatin [Lipitor] 10 mg PO HS 01/01/16 [History] Docusate Sodium [Dok] 300 mg PO BID 01/01/16 [History] Albuterol Neb [Proventil Neb] 2.5 mg IH Q4HR PRN 08/25/16 [History] Bifidobacterium Infantis [Align] 4 mg PO DAILY 08/25/16 [History] Oxygen 2 l IN CONT #1 each 08/26/16 [Rx] Tramadol HCl 50 - 100 mg PO QID PRN 09/13/16 [History] Warfarin [Coumadin] 7.5 mg PO QPM 09/13/16 [History] Amoxicillin/Clavulanate [Augmentin] 875 mg PO BIDWM #14 tablet 09/16/16 [Rx] PredniSONE 10 mg PO DAILY #31 tablet 09/16/16 [Rx] Allergies/Adverse Reactions: Allergies ceftriaxone [From Rocephin] Allergy (Severe, Verified 08/25/16 08:19) Hives ciprofloxacin [From Cipro HC] Allergy (Severe, Verified 08/25/16 08:19) Hives levofloxacin [From Levaquin] Allergy (Severe, Verified 08/25/16 08:19) Hives vancomycin Allergy (Severe, Verified 08/25/16 08:19) Rash hydrocortisone [From Cipro HC] Allergy (Intermediate, Verified 08/25/16 08:19) Hives Date of admission: 09/13/16 18:17 Primary care physician: Christoph Hughes Discharging clinician: Lilliam Colon Anticipated date of discharge: 09/16/16 - Patient Status Disposition: Home, Self-Care Functional capacity at discharge: independent ambulation Overall status at discharge: patient is progressing back to baseline - Discharge Instructions Follow Up With: Christoph Hughes DO [Primary Care Provider] - Additional Instructions: Take your medications as written Follow up with Dr. Negrete as scheduled. Please call your primary care physician tomorrow and make an appointment for evaluation within the next week or so. Please return with any problems or concerns. - Diet and Activity Activity: resume usual activities as tolerated Diet: advance to your usual diet Hospital course: Ms. Dewitt is a 71 year old female with history of chronic respiratory failure, home 02 use, chf, copd, recent pneumonia and anemia. Pt was admitted on 09/14 for prod cough and SOB . Pt was recently inpt for pna in Aug, treated with Doxycycline at that time. Chest xray showed R basilar airspace disease and recurrent or persistent pna. CT showed the same with R > L bibasilar mucous plugging and bronchiectasis. Pt states that cough is no longer productive and lungs are clear and diminshed throughout. Pt received zosyn q8h and will be sent home on Augmentin 875mg po bid x 7 days and a steroid taper. No leukocytosis on discharge. Pt with SOLEDAD today, creatinine 1.15, up from 0.86 on admission. I did start fluids for gentle hydration for 6 hours and am redrawing chemistry prior to discharge. Hgb is baseline for pt. She does not take iron supplementation. Pt denies melena , hematochezia, and states that she is aware of her Hgb and will follow up with her pcp for supplementation. - Time Spent with Patient Total time spent providing and/or coordinating discharge services: - Constitutional Vitals: Temp Pulse Resp BP Pulse Ox 97.6 F 99 18 129/76 100 09/16/16 15:14 09/16/16 15:14 09/16/16 16:02 09/16/16 15:14 09/16/16 16:02 General appearance: Present: cooperative, A&O X 3, pleasant, no acute distress, answers questions appropriately - Respiratory Respiratory exam: Present: decreased breath sounds, CTAB. Absent: rales, respiratory distress, rhonchi, stridor, wheezes, tachypnea - Cardiovascular Cardiovascular exam: Present: RRR, +S1, +S2 - Extremities Exam Extremities exam: Present: normal capillary refill, normal inspection, warm, radial pulses palpable and symetrical. Absent: pedal edema, tenderness - Neurological Exam Neurological exam: Present: alert, oriented X3 - VTE Documentation of Mechanical Device: Graduated compression elastic hosiery
[2016-09-16 17:49] LABS: Calcium 8.9 mg/dL (8.6-10.8); Potassium 3.9 mEq/L (3.5-4.5)
[2016-09-16] MEDS ORDERED: *HR* Warfarin 5 MG TABLET PO ONE (18:00)
--- NOTE | 2016-09-16 19:14 | Event Note ---
Date of Encounter: 09/16/16 Time of Encounter: 19:00 Pt was accidentally discharged prior to results of chemistry were back and reviewed by me. Creatinine decreased to 1.12 prior to discharge. Pt states that she does see Dr. Negrete for renal problem and has an appointment with him on . Pt says that she will call her PCP in the a.m for a follow up appointment with Dr. Rory Live in [place], [place]. I did try to call Dr Hughes and Dr Cervantes , his partner, to make them aware, both numbers went to voicemail and I did not leave a message on unsecured line.
== END 2016-09-16 18:47 | disposition home or self-care (01) | DRG 191 ==
LOC: 3BNU 09:36 → EMEROO 09:36 → 3BNU 16:22 → SUATTDRO 18:17
PROVIDERS: ADMIT Nurse Practitioner Acute Care; ATTEND Internal Medicine

== ENCOUNTER 2016-09-25 14:30 | Inpatient (IN) ==
[2016-09-25] MEDS ORDERED: Ipratropium/Albuterol Neb 3 ML IH ONE (15:28)
[2016-09-25] MEDS ORDERED: methylPREDNISolone 125 MG/2 ML VIAL IV ONE (15:28)
--- NOTE | 2016-09-25 15:31 | Emergency Department Note ---
Disposition Clinical Impression: Acute exacerbation of chronic obstructive pulmonary disease (COPD) Chronic respiratory failure Qualifiers: Respiratory failure complication: hypoxia Qualified Code(s): J96.11 - Chronic respiratory failure with hypoxia Dyspnea Qualifiers: Dyspnea type: dyspnea on exertion Qualified Code(s): R06.09 - Other forms of dyspnea Disposition: Admitted As Inpatient Condition: Good Referrals: Christoph Hughes DO [Primary Care Provider] - Forms: ED Satisfaction Letter SOB HPI - General Chief Complaint: ED Shortness of Breath/Dyspnea Stated Complaint: DEBBIE Time Seen by Provider: 09/25/16 14:52 Source: patient Limitations: no limitations Nursing Notes Reviewed: Yes Vital Signs Reviewed: Yes - History of Present Illness Pt Subjective Complaint: shortness of breath, cough, pain with inspiration Onset (ago): week(s) (1) Severity: moderate Consistency/Duration: intermittent, gradually worsening Improves with: oxygen, rest, bronchodilators Worsens with: exertion, coughing Known history of: COPD, recurrent pneumonia Associated symptoms: Reports: pain with inspiration, cough, wheezing. Denies: fever Treatment prior to arrival: oxygen, bronchodilator Cough present: Yes Cough Description: Involuntary Cough Frequency: Intermittent Sputum production: No - Related Data Home Medications Medication Instructions Recorded Confirmed Albuterol Sulfate [Albuterol 1 - 2 puff IH Q4HR PRN 11/24/15 09/13/16 Inhaler] Allopurinol [Zyloprim 100 MG] 100 mg PO DAILY 11/24/15 09/13/16 Bran/Gum/Fib/Na/Psyl/Kelp/Pec 1,000 mg PO DAILY 11/24/15 09/13/16 [Fiber 6 Tablet] Budesonide/Formoterol 160/4.5 2 puff IH BIDR 11/24/15 09/13/16 [Symbicort 160/4.5] Calcium Carbonate [Calcium] 500 mg PO BID 11/24/15 09/13/16 Cholecalciferol (D-3) [Vitamin D] 2,000 unit PO DAILY 11/24/15 09/13/16 Esomeprazole Magnesium [Nexium] 40 mg PO DAILY 11/24/15 09/13/16 Fluticasone Propionate Nasal 50 mcg NS DAILY 11/24/15 09/13/16 [Flonase] Folic Acid 1 mg PO DAILY 11/24/15 09/13/16 Furosemide [Lasix] 40 mg PO BID 11/24/15 09/13/16 Gabapentin [Neurontin] 200 mg PO HS 11/24/15 09/13/16 Loratadine [Claritin] 10 mg PO DAILY 11/24/15 09/13/16 Metoprolol XL (24 HR) Succ [Toprol 12.5 mg PO BID 11/24/15 09/13/16 Xl] Montelukast [Singulair] 10 mg PO DAILY 11/24/15 09/13/16 Nitroglycerin [Nitrostat] 0.4 mg SL Q5M PRN 11/24/15 09/13/16 Nortriptyline [Pamelor] 10 mg PO HS 11/24/15 09/13/16 Potassium Chloride [K-Tab ER] 20 meq PO DAILY 11/24/15 09/13/16 Roflumilast [Daliresp] 500 mcg PO DAILY 11/24/15 09/13/16 Vitamin B Complex [B Complex] 1 tab PO DAILY 11/24/15 09/13/16 Umeclidinium [place] [Incruse 1 puff IH DAILY 12/17/15 09/13/16 Ellipta] Atorvastatin [Lipitor] 10 mg PO HS 01/01/16 09/13/16 Docusate Sodium [Dok] 300 mg PO BID 01/01/16 09/13/16 Albuterol Neb [Proventil Neb] 2.5 mg IH Q4HR PRN 08/25/16 09/13/16 Bifidobacterium Infantis [Align] 4 mg PO DAILY 08/25/16 09/13/16 Tramadol HCl 50 - 100 mg PO QID PRN 09/13/16 09/13/16 Warfarin [Coumadin] 7.5 mg PO QPM 09/13/16 09/13/16 Previous Rx's Medication Instructions Recorded Oxygen 2 l IN CONT #1 each 08/26/16 Amoxicillin/Clavulanate [Augmentin] 875 mg PO BIDWM #14 tablet 09/16/16 PredniSONE 10 mg PO DAILY #31 tablet 09/16/16 Allergies Allergy/AdvReac Type Severity Reaction Status Date / Time ceftriaxone [From Rocephin] Allergy Severe Hives Verified 08/25/16 08:19 ciprofloxacin [From Cipro HC] Allergy Severe Hives Verified 08/25/16 08:19 levofloxacin [From Levaquin] Allergy Severe Hives Verified 08/25/16 08:19 vancomycin Allergy Severe Rash Verified 08/25/16 08:19 hydrocortisone Allergy Intermediate Hives Verified 08/25/16 08:19 [From Cipro HC] All systems ED: reviewed and negative except as stated. Constitutional: Denies: fever Respiratory: Reports: dyspnea, wheezes Gastrointestinal: Denies: nausea, vomiting Past Medical History - Past Medical History Source: patient, old records reviewed, obtained from family, nursing notes reviewed Medical history: Reports: arthritis, atrial fibrillation, cardiomyopathy, CHF, COPD, fibromyalgia, hypertension, myocardial infarction, osteoporosis, RA, other Surgical history: Reports: cholecystectomy, coronary bypass (CABG), heart valve replacement, orthopedic, other Psychiatric history: Reports: no psych history - Social History Smoking Status: Former smoker Smokeless Tobacco Status: No Alcohol use: Reports: none Drug use: Reports: none Physical Exam - General Limitations: no limitations General appearance: alert - Head Head exam: atraumatic, normocephalic, normal inspection - Eye Eye exam: Present: normal appearance, PERRL, EOMI - Expanded Eye Exam Pupils: Left: reactive - ENT ENT exam: normal exam, normal oropharynx, mucous membranes moist - Expanded ENT Exam External ear exam: Present: normal external inspection Mouth exam: Present: normal external inspection Teeth exam: Present: normal inspection Throat exam: Present: normal inspection - Neck Neck exam: Present: normal inspection, full ROM, trachea midline - Chest Chest inspection: Present: normal inspection, symmetric chest wall rise - Respiratory Respiratory exam: Present: prolonged expiratory phase (With in expiratory wheeze ). Absent: respiratory distress - Cardiovascular Cardiovascular exam: Present: systolic murmur (Mechanical) - Abdominal Exam Abdominal exam: Present: soft, Non-Tender. Absent: tenderness, distention, guarding, rebound, rigidity - Extremities Exam Extremities exam: Present: normal inspection, full ROM. Absent: tenderness, pedal edema - Expanded Upper Extremity Exam Shoulder exam: Present: normal inspection, full ROM Arm exam: Present: normal inspection, full ROM Elbow exam: Present: normal inspection, full ROM Forearm/Wrist exam: Present: normal inspection, full ROM Hand exam: Present: normal inspection, full ROM Vascular exam: Normal: capillary refill, radial pulse - Expanded Lower Extremity Exam Hip/Pelvis exam: Present: normal inspection, full ROM Upper leg exam: Present: normal inspection, full ROM Knee exam: Present: normal inspection, full ROM Lower leg exam: Present: normal inspection, full ROM Ankle exam: Present: normal inspection, full ROM Foot/toe exam: Present: normal inspection, full ROM Neurovascular/Tendon exam: Absent: motor deficit, sensory deficit, tendon deficit - Back Exam Back exam: Present: normal inspection, full ROM. Absent: tenderness - Neurological Exam Neurological exam: Present: alert, oriented X3 - Expanded Neurological Exam Patient oriented to: Present: person, place, time Coma Scale Eye Opening: Spontaneous Coma Scale Motor Response: Obeys Commands Coma Scale Verbal Response: Oriented Coma Scale Total: 15 - Psychiatric Psychiatric exam: Present: normal affect, normal mood - Skin Skin exam: Present: warm, dry, intact, normal color Course Vital Signs Temperature 99.2 F 09/25/16 14:45 Pulse Rate 95 09/25/16 14:45 Respiratory Rate 20 09/25/16 14:45 Blood Pressure 109/78 09/25/16 14:45 O2 Sat by Pulse Oximetry 93 L 09/25/16 14:45 Temperature 99.2 F 09/25/16 14:45 Pulse Rate 95 09/25/16 14:45 Respiratory Rate 16 09/25/16 16:27 Blood Pressure 109/78 09/25/16 14:45 O2 Sat by Pulse Oximetry 96 09/25/16 16:27 Oxygen Delivery Oxygen Delivery Nasal Cannula Shortness of Breath/Dyspnea - Differential Diagnosis Likely: acute exacerbation of chronic obstructive airways disease, congestive heart failure, pneumonia, asthma with exacerbation, pulmonary embolism, pneumothorax, arrhythmia - Medical Records Medical records reviewed: Yes I reviewed the patient's medical records. - Lab Data Lab results reviewed: Yes I reviewed the patient's lab results. Result diagrams: 09/25/16 15:39 09/25/16 15:39 Lab Results 09/25/16 09/25/16 09/25/16 Range/Units 15:39 15:39 15:39 WBC 6.2 (4.3-11.1) K/mcL RBC 4.84 (3.82-4.97) M/mcL Hgb 13.2 (11.5-15.4) g/dL Hct 41.3 (35.3-44.9) % MCV 85.3 (83.0-100.0) fL MCH 27.3 L (28.0-33.3) pg MCHC 32.0 (31.6-35.5) g/dL RDW 17.0 H (11.5-14.5) % Plt Count 147 (140-400) K/mcL MPV 10.1 (9.4-12.4) fL Immature Gran % 0.6 (0-4) % Seg Neutrophils % 84.6 % Lymphocytes % 7.4 % Monocytes % 7.1 % Eosinophils % 0.0 % Basophils % 0.3 % Neutrophils # 5.2 (1.6-8.9) K/mcL Lymphocytes # 0.5 L (0.6-4.6) K/mcL Monocytes # 0.4 (0.0-1.3) K/mcL Eosinophils # 0.0 (0.0-0.6) K/mcL Basophils # 0.0 (0.0-0.2) K/mcL Immature Plt Fraction 2.9 (1.1-6.1) % PT 21.0 H (9.4-12.1) Seconds INR 1.9 APTT 48.4 H (26.0-36.0) Seconds Sodium 137 (136-145) mEq/L Potassium 3.7 (3.5-4.5) mEq/L Chloride 103 (98-109) mEq/L Carbon Dioxide 24 (19-29) mEq/L BUN 27 H (7-20) mg/dL Creatinine 0.94 (0.57-1.11) mg/dL Est GFR ( Amer) > 60 (> 60) Est GFR (Non-Af Amer) 59 L (> 60) BUN/Creatinine Ratio 29 H (6-26) Glucose 93 (70-99) mg/dL Calculated Osmolality 289 (280-300) Calcium 8.9 (8.6-10.8) mg/dL Troponin I (0-0.03) ng/mL B-Natriuretic Peptide (0-100) pg/mL 09/25/16 09/25/16 Range/Units 15:39 15:39 WBC (4.3-11.1) K/mcL RBC (3.82-4.97) M/mcL Hgb (11.5-15.4) g/dL Hct (35.3-44.9) % MCV (83.0-100.0) fL MCH (28.0-33.3) pg MCHC (31.6-35.5) g/dL RDW (11.5-14.5) % Plt Count (140-400) K/mcL MPV (9.4-12.4) fL Immature Gran % (0-4) % Seg Neutrophils % % Lymphocytes % % Monocytes % % Eosinophils % % Basophils % % Neutrophils # (1.6-8.9) K/mcL Lymphocytes # (0.6-4.6) K/mcL Monocytes # (0.0-1.3) K/mcL Eosinophils # (0.0-0.6) K/mcL Basophils # (0.0-0.2) K/mcL Immature Plt Fraction (1.1-6.1) % PT (9.4-12.1) Seconds INR APTT (26.0-36.0) Seconds Sodium (136-145) mEq/L Potassium (3.5-4.5) mEq/L Chloride (98-109) mEq/L Carbon Dioxide (19-29) mEq/L BUN (7-20) mg/dL Creatinine (0.57-1.11) mg/dL Est GFR ( Amer) (> 60) Est GFR (Non-Af Amer) (> 60) BUN/Creatinine Ratio (6-26) Glucose (70-99) mg/dL Calculated Osmolality (280-300) Calcium (8.6-10.8) mg/dL Troponin I 0.01 (0-0.03) ng/mL B-Natriuretic Peptide 67 (0-100) pg/mL - Radiology Data Radiology results reviewed: Yes I reviewed the patient's radiology results. - EKG Data EKG attestation: Yes I reviewed and interpreted this EKG. EKG shows normal: Reports: sinus rhythm Rate: Reports: normal Rhythm: Reports: NSR Interpretation: Reports: no acute changes
[2016-09-25 15:47] LABS: Basophils % 0.3 %; Hematocrit 41.3 % (35.3-44.9); Hemoglobin 13.2 g/dL (11.5-15.4); Immature Granulocytes % 0.6 % (0-4); Immature Platelets 2.9 % (1.1-6.1); Lymphocytes # 0.5 K/mcL (0.6-4.6); Lymphocytes % 7.4 %; Mean Corpuscular Hemoglobin 27.3 pg (28.0-33.3); Mean Corpuscular Volume 85.3 fL (83.0-100.0); Mean Platelet Volume 10.1 fL (9.4-12.4); Monocytes # 0.4 K/mcL (0.0-1.3); Monocytes % 7.1 %; Neutrophils # 5.2 K/mcL (1.6-8.9); Platelet Count 147 K/mcL (140-400); Red Blood Count 4.84 M/mcL (3.82-4.97); Segmented Neutrophils % 84.6 %
[2016-09-25 15:52] LABS: INR 1.9
[2016-09-25 15:54] LABS: Activated Partial Thrombo Time 48.4 Seconds (26.0-36.0)
[2016-09-25 16:00] LABS: BUN/Creatinine Ratio 29 (6-26); Blood Urea Nitrogen 27 mg/dL (7-20); Calcium 8.9 mg/dL (8.6-10.8); Carbon Dioxide 24 mEq/L (19-29); Chloride 103 mEq/L (98-109); Glucose 93 mg/dL (70-99); Osmolality,Calculated 289 (280-300); Potassium 3.7 mEq/L (3.5-4.5); Sodium 137 mEq/L (136-145); eGFR For African Americans > 60 (> 60); eGFR For Non-African Americans 59 (> 60)
[2016-09-25] MEDS ORDERED: *HR* Promethazine 25 MG/ML VIAL IVP PRN (21:42)
[2016-09-25] MEDS ORDERED: traMADol 50 MG TABLET PO PRN (21:46)
[2016-09-25] MEDS ORDERED: Albuterol 2.5 MG/3 ML NEBULIZER IH PRN (21:46)
[2016-09-25] MEDS ORDERED: Nitroglycerin 0.4 MG TAB.SUBL SL PRN (21:46)
--- NOTE | 2016-09-25 22:22 | Internal Med History&Physical ---
<Sydnie Akins - Last Filed: 09/26/16 01:24> Date of Encounter: 09/25/16 Time of Encounter: 22:15 Assessment and Plan (1) Acute and chronic respiratory failure Current visit: No Status: Resolved CXR evidence of R basilar patchy airspace disease, acute vs chronic pneumonia COPD poorly controlled with recurrent admissions, last admitted 2 weeks ago for COPD exacerbation, pneumonia allergy to levaquin and cipro recently on zosyn, doxycycline abx IV solumedrol bronchodilator therapy sputum ctx respiratory panel consult to respiratory sees Dr. Siddiqi in outpt Qualifiers: Respiratory failure complication: unspecified whether with hypoxia or hypercapnia Qualified Code(s): J96.20 - Acute and chronic respiratory failure , unspecified whether with hypoxia or hypercapnia (2) Acute exacerbation of chronic obstructive pulmonary disease (COPD) Current visit: Yes Status: Acute (3) Diastolic heart failure Current visit: No Status: Chronic lBNP 678 trop .07 asix Qualifiers: Heart failure chronicity: chronic Qualified Code(s): I50.32 - Chronic diastolic (congestive) heart failure (4) Anxiety Current visit: No Status: Chronic continue home meds (5) CKD (chronic kidney disease) Current visit: No Status: Acute monitor renal fxn Qualifiers: Chronic kidney disease stage: stage 3 (moderate) Qualified Code(s): N18.3 - Chronic kidney disease, stage 3 (moderate) (6) Acute exacerbation of chronic obstructive airways disease Current visit: No Status: Chronic (7) Chronic respiratory failure with hypoxia Current visit: No Status: Chronic (8) Pulmonary nodule Current visit: No Status: Chronic follows with Dr. Siddiqi in outpt (9) Atrial fibrillation Current visit: No Status: Chronic continue warfarin and other home meds monitor coags Qualifiers: Atrial fibrillation type: chronic Qualified Code(s): I48.2 - Chronic atrial fibrillation (10) Dyspnea Current visit: Yes Status: Acute Qualifiers: Dyspnea type: dyspnea on exertion Qualified Code(s): R06.09 - Other forms of dyspnea Internal Medicine - H&P: HPI Chief complaint: SOB Admitted From: Home Plans for Post Hospital Care: Home History of present illness: Ms. Dewitt is a 71 year old female c/o SOB. PMHx Afib, CHF,CABG x3, poorly controlled COPD. Pt c/o worsening dyspnea, cough with yellow-white sputum, wheezing above her baseline COPD symptoms. Pt is on home O2 at 2L, recently had to increase the amount of O2 to 4 L. Pt states she was recently hospitalized for pneumonia less then two weeks ago and has not been back to her baseline since. States she uses her daily inhalers as prescribed by Dr. Siddiqi who she sees for pulmonary, and they have not been as helpful as previously. She also states increased use of rescue inhaler. Denies sick contacts, smoking, any triggering exposure. Denies fever, chills,headache, dizziness CP, hemoptysis, nightsweats, numbness/tingling. Past Med Surg Social Fam HX - Past Medical History Medical history: arthritis, atrial fibrillation, cardiomyopathy, CHF, COPD, fibromyalgia, hypertension, myocardial infarction, osteoporosis, RA, other Psychiatric history: no psych history - Past Surgical History Surgical History: angioplasty/stent, cholecystectomy, coronary bypass (CABG), heart valve replacement, orthopedic, other - Social History Smoking Status: Former smoker Smokeless Tobacco Status: No Alcohol use: none Drug use: none - Family History Father Living Status: Hx Family Cardiac Disorders: Yes Hx Family Cancer: Yes (liver) Mother Living Status: Hx Family Respiratory Disorders: Yes (emphysema) Hx Family Cancer: Yes (bone) Internal Medicine - H&P: Meds Albuterol Sulfate [Albuterol Inhaler] 1 - 2 puff IH Q4HR PRN 11/24/15 [History] Allopurinol [Zyloprim 100 MG] 100 mg PO DAILY 11/24/15 [History] Budesonide/Formoterol 160/4.5 [Symbicort 160/4.5] 2 puff IH BIDR 11/24/15 [ History] Calcium Carbonate [Calcium] 500 mg PO BID 11/24/15 [History] Cholecalciferol (D-3) [Vitamin D] 2,000 unit PO DAILY 11/24/15 [History] Esomeprazole Magnesium [Nexium] 40 mg PO DAILY 11/24/15 [History] Fluticasone Propionate Nasal [Flonase] 50 mcg NS DAILY 11/24/15 [History] Folic Acid 1 mg PO DAILY 11/24/15 [History] Furosemide [Lasix] 40 mg PO BID 11/24/15 [History] Gabapentin [Neurontin] 200 mg PO HS 11/24/15 [History] Loratadine [Claritin] 10 mg PO DAILY 11/24/15 [History] Metoprolol XL (24 HR) Succ [Toprol Xl] 12.5 mg PO BID 11/24/15 [History] Montelukast [Singulair] 10 mg PO DAILY 11/24/15 [History] Nitroglycerin [Nitrostat] 0.4 mg SL Q5M PRN 11/24/15 [History] Nortriptyline [Pamelor] 10 mg PO HS 11/24/15 [History] Potassium Chloride [K-Tab ER] 20 meq PO DAILY 11/24/15 [History] Roflumilast [Daliresp] 500 mcg PO DAILY 11/24/15 [History] Vitamin B Complex [B Complex] 1 tab PO DAILY 11/24/15 [History] Umeclidinium [place] [Incruse Ellipta] 1 puff IH DAILY 12/17/15 [History] Atorvastatin [Lipitor] 10 mg PO HS 01/01/16 [History] Docusate Sodium [Dok] 300 mg PO BID 01/01/16 [History] Albuterol Neb [Proventil Neb] 2.5 mg IH Q4HR PRN 08/25/16 [History] Bifidobacterium Infantis [Align] 4 mg PO DAILY 08/25/16 [History] Oxygen 2 l IN CONT #1 each 08/26/16 [Rx] Tramadol HCl 50 - 100 mg PO QID PRN 09/13/16 [History] Warfarin [Coumadin] 5 mg PO TUWE 09/13/16 [History] Warfarin [Coumadin] 7.5 mg PO SUMOTHFR09/25/16 [History] Allergies ceftriaxone [From Rocephin] Allergy (Severe, Verified 08/25/16 08:19) Hives ciprofloxacin [From Cipro HC] Allergy (Severe, Verified 08/25/16 08:19) Hives levofloxacin [From Levaquin] Allergy (Severe, Verified 08/25/16 08:19) Hives vancomycin Allergy (Severe, Verified 08/25/16 08:19) Rash hydrocortisone [From Cipro HC] Allergy (Intermediate, Verified 08/25/16 08:19) Hives All Systems PM: A 10-system review of systems was performed and is negative for pertinent findings except as documented above in the HPI. - Constitutional Constitutional: no chills, no fever(s), no night sweats - EENT Eyes: no change in vision, no discharge, no pain, no photophobia - Cardiovascular Cardiovascular ROS IM: no chest pain, no diaphoresis, no dyspnea, no lightheadedness, no palpitations, no syncope - Respiratory Respiratory: cough, dyspnea, dyspnea on exertion, wheezing, excessive phlegm production, change in phlegm color, no hemoptysis, no pain on inspiration - Gastrointestinal Gastrointestinal: no abdominal pain, no diarrhea, no hematemesis, no hematochezia, no melena, no nausea, no vomiting - Genitourinary Genitourinary: no change in urinary stream, no dysuria, no flank pain, no hematuria - Musculoskeletal Musculoskeletal ROS IM: no numbness, no tingling - Integumentary Integumentary IM: no rash, no unusual bruising - Neurological Neurological ROS: no confusion, no convulsions, no focal weakness, no numbness, no tingling, no tremor(s) - Constitutional Vitals: Temp Pulse Resp BP Pulse Ox 98.2 F 88 16 114/74 98 09/25/16 19:56 09/25/16 19:56 09/25/16 19:56 09/25/16 19:56 09/25/16 19:56 General appearance: Present: A&O X 3, pleasant, no acute distress, answers questions appropriately - Head Head exam: Present: atraumatic, normocephalic - Eye Eye exam: Present: PERRL, conjuntiva pink, sclera anicteric Pupils: Present: PERRL - ENT ENT exam: Present: mucous membranes moist Additional comments: MP3 - Neck Neck exam general surgery: Present: supple, trachea midline. Absent: lymphadenopathy - Respiratory Respiratory exam: Present: decreased breath sounds, rales, rhonchi, wheezes. Absent: accessory muscle use, chest wall tenderness, respiratory distress, tachypnea - Expanded Respiratory Exam Location: decreased breath sounds: Left, Right, rales: Left, Right, Lower (bases ), rhonchi: Left, Right (lower lung fletcher), wheezes: Left, Right (throughout anterior and posterio) - Cardiovascular Cardiovascular exam: Present: clicks, RRR, +S1, +S2 - GI/Abdominal GI/Abdominal exam: Present: normal bowel sounds, soft, no peritoneal signs. Absent: distended, tenderness - Extremities Exam Extremities exam: Present: warm, radial pulses palpable and symetrical. Absent : calf tenderness, cyanotic, pedal edema - Neurological Exam Neurological exam: Present: CN II-XII intact, oriented X3, no focal deficits. Absent: pronater drift, facial droop, speech deficit Internal Med - H&P Results - Labs CBC & Chem 7: 09/25/16 15:39 09/25/16 15:39 <Ryan Lenz - Last Filed: 09/26/16 05:06> Internal Medicine - H&P: HPI History of present illness: Ms. Dewitt is a 71 year old female All Systems PM: A 10-system review of systems was performed and is negative for pertinent findings except as documented above in the HPI. - Constitutional Vitals: Temp Pulse Resp BP Pulse Ox 97.5 F L 77 16 102/65 100 09/26/16 03:28 09/26/16 03:28 09/26/16 03:28 09/26/16 03:28 09/26/16 03:28 Internal Med - H&P Results - Labs CBC & Chem 7: 09/26/16 04:40 09/25/16 15:39 Labs: Short CBC 09/26/16 Range/Units 04:40 WBC 2.8 L D (4.3-11.1) K/mcL Hgb 12.3 (11.5-15.4) g/dL Hct 37.5 (35.3-44.9) % Plt Count 145 (140-400) K/mcL - Attending Attestation I examined this patient and my medical decision-making was reviewed with the CRYPTOLOGIC TECHNICIAN TECHNICAL/PA/Advanced Practice Nurse/Resident Physician. I agree with the documented findings, disposition and treatment plan as described except to the extent set forth below. Agree with Dr. Akins. Continue with current management. Tamiflu in light of positive influenza testing.
[2016-09-25] MEDS: Furosemide 40 MG TABLET PO SCH (23:04)
[2016-09-25] MEDS: Gabapentin 100 MG CAPSULE PO SCH (23:04)
[2016-09-25] MEDS: methylPREDNISolone 125 MG/2 ML VIAL IVP SCH (23:05)
[2016-09-25] MEDS: *HR* Warfarin 7.5 MG TABLET PO SCH (23:05)
[2016-09-25] MEDS: Loratadine 10 MG TABLET PO SCH (23:05)
[2016-09-25] MEDS: DALIRESP 500 MCG PO SCH (23:27)
[2016-09-25] MEDS: Metoprolol XL (24 HR) Succ 25 MG TAB.ER.24H PO SCH (23:30)
[2016-09-25] MEDS: Fluticasone Propionate Nasal 50 MCG/SPRAY BOTTLE NS SCH (23:44)
[2016-09-26] MEDS ORDERED: Piperacillin/Tazobactam 3.375 GM in D5% in Water (Mini-Bag+) 100 ML IVPB SCH
[2016-09-26 01:13] LABS: Adenovirus Not Detected (Not Detect); Bordetella Pertussis Not Detected (Not Detect); Chlamydophila pneumoniae Not Detected (Not Detect); Coronavirus 229E Not Detected (Not Detect); Coronavirus HKU1 Not Detected (Not Detect); Coronavirus NL63 Not Detected (Not Detect); Coronavirus OC43 Not Detected (Not Detect); Human Metapneumovirus Not Detected (Not Detect); Human Rhinovirus/Enterovirus Not Detected (Not Detect); Influenza A Subtype 2009 H1 Not Detected (Not Detect); Influenza A Untypeable Not Detected (Not Detect); Mycoplasma pneumoniae Not Detected (Not Detect); Parainfluenza Virus 1 Not Detected (Not Detect); Parainfluenza Virus 2 Not Detected (Not Detect); Parainfluenza Virus 3 Not Detected (Not Detect); Parainfluenza Virus 4 Not Detected (Not Detect); Respiratory Syncytial Virus Not Detected (Not Detect)
[2016-09-26 01:15] LABS: Influenza B ***DETECTED*** (Not Detect)
[2016-09-26] MEDS: Budesonide/Formoterol 160/4.5 MDI IH SCH ×3 (03:32→20:16)
[2016-09-26 04:58] LABS: Hematocrit 37.5 % (35.3-44.9); Hemoglobin 12.3 g/dL (11.5-15.4); Mean Corpuscular HGB Conc 32.8 g/dL (31.6-35.5); Mean Corpuscular Hemoglobin 27.8 pg (28.0-33.3); Mean Corpuscular Volume 84.7 fL (83.0-100.0); Mean Platelet Volume 10.5 fL (9.4-12.4); Platelet Count 145 K/mcL (140-400); Red Blood Count 4.43 M/mcL (3.82-4.97); Red Cell Distribution Width 16.7 % (11.5-14.5)
[2016-09-26 05:01] LABS: INR 1.9; Prothrombin Time 20.4 Seconds (9.4-12.1)
[2016-09-26 05:04] LABS: Activated Partial Thrombo Time 42.3 Seconds (26.0-36.0)
[2016-09-26 05:32] LABS: Calcium 8.7 mg/dL (8.6-10.8); Potassium 3.9 mEq/L (3.5-4.5)
[2016-09-26] MEDS ORDERED: Doxycycline 100 MG in 0.9 % Sodium Chloride Mini Bag 100 ML IVPB SCH (06:00)
[2016-09-26] MEDS: Metoprolol XL (24 HR) Succ 25 MG TAB.ER.24H PO SCH ×2 (08:25→19:48)
[2016-09-26] MEDS: Furosemide 40 MG TABLET PO SCH ×2 (08:25→16:59)
[2016-09-26] MEDS: Fluticasone Propionate Nasal 50 MCG/SPRAY BOTTLE NS SCH (08:26)
[2016-09-26] MEDS: methylPREDNISolone 125 MG/2 ML VIAL IVP SCH ×2 (08:26→16:59)
[2016-09-26] MEDS: DALIRESP 500 MCG PO SCH (08:27)
--- NOTE | 2016-09-26 11:40 | Internal Med Progress Note ---
Date of Encounter: 09/26/16 Time of Encounter: 09:15 - Assessment and plan (1) HCAP (healthcare-associated pneumonia) Current Visit: No Status: Acute Assessment and plan: In the last month, this is the patient's third admission. On 08/26/16, patient was admitted for 2 days for a COPD exacerbation and sent home on doxycycline. During this visit, the patient transitioned from 2 L per nasal cannula at night to 2 L per nasal cannula continuously. Then on 09/13/16, she was admitted for 3 days, this time for pneumonia and was treated with Zosyn while admitted and sent home on Augmentin. She is now back 9 days after her most recent discharge and her chest x-ray is again consistent with persistent/recurrent pneumonia. She was treated with Zosyn and emergency department, and is currently on doxycycline. She is allergic to cephalosporins, fluoroquinolones, and vancomycin. It does not appear as if the doxycycline or Zosyn were successful in the past, we will place her on meropenem and gentamicin with sputum culture pending. Will bring pulmonology on board given her recurrent pneumonia. Will also treat for COPD exacerbation. ITS Impressions Chest X-Ray 09/25/16 14:53 IMPRESSION: Right infrahilar and bibasilar airspace disease with a meniscus at the left costophrenic angle which could represent a trace effusion or pleural scar. These changes appear similar, and could represent persistent or recurrent pneumonia. D/ / Elmer Lopez MD / Elmer Lopez MD Interpreting Provider: Elmer Lopez MD (2) Acute exacerbation of chronic obstructive pulmonary disease (COPD) Current Visit: Yes Status: Acute (3) Failure of outpatient treatment Current Visit: No Status: Acute (4) Influenza B Current Visit: Yes Status: Acute Assessment and plan: Tamiflu, isolation precautions (5) Hypertension Current Visit: No Status: Chronic Assessment and plan: Controlled, her home Toprol 12.5 mg twice a day, furosemide 40 mg twice a day have been continued, we will continue to trend Qualifiers: Hypertension type: essential hypertension Qualified Code(s): I10 - Essential (primary) hypertension (6) H/O mitral valve replacement with mechanical valve Current Visit: No Status: Chronic (7) DVT prophylaxis Current Visit: No Status: Acute Assessment and plan: On Coumadin, will trend INR (8) Acute and chronic respiratory failure Current Visit: No Status: Acute Assessment and plan: Patient is on 2 L per nasal cannula at home but over the past couple weeks she had increased that. She is currently on 4 L and is still more short of breath than usual. We will continue to monitor Qualifiers: Respiratory failure complication: unspecified whether with hypoxia or hypercapnia Qualified Code(s): J96.20 - Acute and chronic respiratory failure , unspecified whether with hypoxia or hypercapnia (9) Diastolic heart failure Current Visit: No Status: Chronic Assessment and plan: Appears euvolemic on examination, home dosing of furosemide continued. No acute exacerbation. (10) Anxiety Current Visit: No Status: Chronic (11) COPD (chronic obstructive pulmonary disease) Current Visit: No Status: Chronic Qualifiers: COPD type: unspecified COPD Qualified Code(s): J44.9 - Chronic obstructive pulmonary disease, unspecified (12) CKD (chronic kidney disease) stage 3, GFR 30-59 ml/min Current Visit: No Status: Chronic Assessment and plan: Stable and consistent with her baseline, mild acute kidney injury overnight, will trend (13) Pulmonary nodule Current Visit: No Status: Chronic Assessment and plan: Continue follow-up outpatient (14) Atrial fibrillation Current Visit: No Status: Chronic Assessment and plan: Rate controlled, on Coumadin - Subjective Interval history: Patient seen and examined. On examination, patient is sitting upright in bed watching television. Patient stating she continues to have a persistent, hoarse hacking cough and states she does not feel any better than she did yesterday. She states her cough is no longer productive. She denies pain other than her "normal artery pain." She states she is eating well. - Constitutional Vitals: Temp Pulse Resp BP Pulse Ox 97.9 F 83 16 133/83 99 09/26/16 11:12 09/26/16 11:12 09/26/16 11:31 09/26/16 11:12 09/26/16 11:31 General appearance: Present: A&O X 3, pleasant, no acute distress, answers questions appropriately - Head Head exam: Present: atraumatic, normocephalic - Eye Eye exam: Present: PERRL, conjuntiva pink, sclera anicteric Pupils: Present: PERRL - Neck Neck exam general surgery: Present: supple, trachea midline. Absent: lymphadenopathy - Respiratory Respiratory exam: Present: decreased breath sounds, prolonged expiratory phase. Absent: accessory muscle use, rales, respiratory distress, rhonchi - Cardiovascular Cardiovascular exam: Present: RRR, +S1, +S2. Absent: diastolic murmur, gallop, rubs, systolic murmur - GI/Abdominal GI/Abdominal exam: Present: normal bowel sounds, soft, no peritoneal signs. Absent: distended, tenderness - Extremities Exam Extremities exam: Present: warm, radial pulses palpable and symetrical. Absent : calf tenderness, cyanotic, pedal edema - Neurological Exam Neurological exam: Present: alert, CN II-XII intact, oriented X3, no focal deficits, strengths equal and symetr throughout. Absent: pronater drift, facial droop, speech deficit - Skin Skin exam: Present: dry, intact, pallor, warm Internal Medicine: Result - Labs CBC & Chem 7: 09/26/16 04:40 09/26/16 04:40 - ABG Interpretation ABG results: PT/INR, D-dimer PT 20.4 Seconds (9.4-12.1) H 09/26/16 04:40 Consult Discharge Plan - Plan Referrals: Christoph Hughes DO [Primary Care Provider] -
[2016-09-26] MEDS ORDERED: Albuterol 2.5 MG/3 ML NEBULIZER IH SCH (12:00)
[2016-09-26] MEDS ORDERED: Gentamicin 270 MG in 0.9 % Sodium Chloride 100 ML IVPB SCH (12:00)
[2016-09-26] MEDS ORDERED: Benzonatate 100 MG CAPSULE PO PRN (12:03)
[2016-09-26] MEDS ORDERED: Naloxone 0.4 MG/ML INJ IVP PRN (12:04)
[2016-09-26] MEDS ORDERED: *HR* Morphine 2 MG/ML SYRINGE IVP PRN (12:04)
[2016-09-26] MEDS ORDERED: Albuterol 2.5 MG/3 ML NEBULIZER IH PRN (12:04)
[2016-09-26] MEDS ORDERED: Acetaminophen 325 MG TABLET PO PRN (12:04)
[2016-09-26] MEDS ORDERED: Gentamicin 370 MG in 0.9 % Sodium Chloride 100 ML IVPB SCH (14:00)
[2016-09-26] MEDS: traMADol 50 MG TABLET PO PRN ×2 (14:49→21:06)
[2016-09-26] MEDS: Acetylcysteine 10% 2 ML INHSOL IH SCH ×3 (15:55→20:17)
[2016-09-26] MEDS: Ipratropium/Albuterol Neb 3 ML IH SCH ×3 (15:56→20:17)
[2016-09-26] MEDS: Meropenem 1,000 MG in 0.9 % Sodium Chloride Mini Bag 100 ML IVPB SCH (16:59)
[2016-09-26] MEDS: *HR* Warfarin 7.5 MG TABLET PO SCH (17:04)
[2016-09-26] MEDS: Oseltamivir 6 MG/ML UDC PO SCH (19:48)
[2016-09-26] MEDS: Gabapentin 100 MG CAPSULE PO SCH (19:48)
[2016-09-26] MEDS: Loratadine 10 MG TABLET PO SCH (19:48)
[2016-09-27] MEDS: methylPREDNISolone 125 MG/2 ML VIAL IVP SCH ×4 (00:17→23:58)
[2016-09-27 01:46] LABS: Hematocrit 36.6 % (35.3-44.9); Hemoglobin 11.6 g/dL (11.5-15.4); Immature Granulocytes % 0.6 % (0-4); Lymphocytes # 0.4 K/mcL (0.6-4.6); Lymphocytes % 8.3 %; Mean Corpuscular HGB Conc 31.7 g/dL (31.6-35.5); Mean Corpuscular Hemoglobin 26.9 pg (28.0-33.3); Mean Corpuscular Volume 84.7 fL (83.0-100.0); Mean Platelet Volume 10.4 fL (9.4-12.4); Monocytes # 0.4 K/mcL (0.0-1.3); Monocytes % 7.2 %; Platelet Count 135 K/mcL (140-400); Red Blood Count 4.32 M/mcL (3.82-4.97); Red Cell Distribution Width 16.4 % (11.5-14.5); Segmented Neutrophils % 83.9 %
[2016-09-27 01:49] LABS: Neutrophils # 4.5 K/mcL (1.6-8.9)
[2016-09-27 02:00] LABS: Calcium 8.5 mg/dL (8.6-10.8); Potassium 3.3 mEq/L (3.5-4.5)
[2016-09-27 02:06] LABS: Anisocytosis 1+ (Not Present); Platelet Estimate Slight Decrease (Normal); Reactive Lymphocytes Present (Not Present)
[2016-09-27 02:07] LABS: Microcytosis Present (Not Present)
[2016-09-27 02:10] LABS: INR 2.9; Prothrombin Time 32.3 Seconds (9.4-12.1)
[2016-09-27] MEDS: Ipratropium/Albuterol Neb 3 ML IH SCH ×4 (03:35→20:58)
[2016-09-27] MEDS: Acetylcysteine 10% 2 ML INHSOL IH SCH ×4 (03:35→20:58)
[2016-09-27] MEDS: Meropenem 1,000 MG in 0.9 % Sodium Chloride Mini Bag 100 ML IVPB SCH ×2 (05:52→17:59)
[2016-09-27] MEDS: Metoprolol XL (24 HR) Succ 25 MG TAB.ER.24H PO SCH ×2 (09:15→20:48)
[2016-09-27] MEDS: Furosemide 40 MG TABLET PO SCH ×2 (09:15→16:02)
[2016-09-27] MEDS: Oseltamivir 6 MG/ML UDC PO SCH ×2 (09:16→20:47)
[2016-09-27] MEDS: DALIRESP 500 MCG PO SCH (09:16)
[2016-09-27] MEDS: Fluticasone Propionate Nasal 50 MCG/SPRAY BOTTLE NS SCH (09:16)
[2016-09-27] MEDS ORDERED: Aminoglycoside Consult 1 EACH MC ONE (09:53)
--- NOTE | 2016-09-27 10:13 | Pulmonology Consult Note ---
Date of Encounter: 09/27/16 Time of Encounter: 09:00 Assessment and Plan (1) Mucus plugging of bronchi Current Visit: No Status: Acute Patient feeling better this morning and she has evidence of mucous plugging. I have explained to the patient about bronchoscopy and risks associated with the procedure mainly bleeding since she is on Coumadin and she prefers to wait which is reasonable while trying an alternative method such as Acapella and Mucomyst and given chest PT. (2) Acute exacerbation of chronic obstructive pulmonary disease (COPD) Current Visit: Yes Status: Acute I feel the patient has advanced COPD and it could be a progression of her underlying COPD/emphysema and I expressed this to her and she understand. Patient on appropriate bronchodilators and systemic steroids (3) Anticoagulated on Coumadin Current Visit: Yes Status: Chronic Patient needs to be on pelvic radiation for her cardiac history. (4) Influenza B Current Visit: Yes Status: Acute Patient is being treated and discussed with primary team about adjusting her antibiotics. Thank you for the consultation we will follow History of Present Illness Consult date: 09/27/16 Requesting physician: Rachel Gonzales Reason for consult: pneumonia Chief complaint: Shortness of breath History of present illness: This is very pleasant 71-year-old female with multiple medical problems and she is on warfarin who has been treated for recurrent pneumonia and today she is feeling better. Patient was recently hospitalized for pneumonia less than 2 weeks ago and she is an established patient in the clinic for her COPD. Patient has been having worsening dyspnea as well as productive yellow to white sputum and she has been using rescue inhalers more frequently. Patient has wheezing. Patient denies any smoking or sick contact. She denies any chest pain and no hemoptysis. Past Med Surg Social Fam HX - Past Medical History Medical history: arthritis, atrial fibrillation, cardiomyopathy, CHF, COPD, fibromyalgia, hypertension, myocardial infarction, osteoporosis, RA, other Psychiatric history: no psych history - Past Surgical History Surgical History: angioplasty/stent, cholecystectomy, coronary bypass (CABG), heart valve replacement, orthopedic, other - Social History Smoking Status: Former smoker Smokeless Tobacco Status: No Alcohol use: none Drug use: none - Family History Father Living Status: Hx Family Cardiac Disorders: Yes Hx Family Cancer: Yes (liver) Mother Living Status: Hx Family Respiratory Disorders: Yes (emphysema) Hx Family Cancer: Yes (bone) Medications and Allergies Albuterol Sulfate [Albuterol Inhaler] 1 - 2 puff IH Q4HR PRN 11/24/15 [History] Allopurinol [Zyloprim 100 MG] 100 mg PO DAILY 11/24/15 [History] Budesonide/Formoterol 160/4.5 [Symbicort 160/4.5] 2 puff IH BIDR 11/24/15 [ History] Calcium Carbonate [Calcium] 500 mg PO BID 11/24/15 [History] Cholecalciferol (D-3) [Vitamin D] 2,000 unit PO DAILY 11/24/15 [History] Esomeprazole Magnesium [Nexium] 40 mg PO DAILY 11/24/15 [History] Fluticasone Propionate Nasal [Flonase] 50 mcg NS DAILY 11/24/15 [History] Folic Acid 1 mg PO DAILY 11/24/15 [History] Furosemide [Lasix] 40 mg PO BID 11/24/15 [History] Gabapentin [Neurontin] 200 mg PO HS 11/24/15 [History] Loratadine [Claritin] 10 mg PO DAILY 11/24/15 [History] Metoprolol XL (24 HR) Succ [Toprol Xl] 12.5 mg PO BID 11/24/15 [History] Montelukast [Singulair] 10 mg PO DAILY 11/24/15 [History] Nitroglycerin [Nitrostat] 0.4 mg SL Q5M PRN 11/24/15 [History] Nortriptyline [Pamelor] 10 mg PO HS 11/24/15 [History] Potassium Chloride [K-Tab ER] 20 meq PO DAILY 11/24/15 [History] Roflumilast [Daliresp] 500 mcg PO DAILY 11/24/15 [History] Vitamin B Complex [B Complex] 1 tab PO DAILY 11/24/15 [History] Umeclidinium [place] [Incruse Ellipta] 1 puff IH DAILY 12/17/15 [History] Atorvastatin [Lipitor] 10 mg PO HS 01/01/16 [History] Docusate Sodium [Dok] 300 mg PO BID 01/01/16 [History] Albuterol Neb [Proventil Neb] 2.5 mg IH Q4HR PRN 08/25/16 [History] Bifidobacterium Infantis [Align] 4 mg PO DAILY 08/25/16 [History] Oxygen 2 l IN CONT #1 each 08/26/16 [Rx] Tramadol HCl 50 - 100 mg PO QID PRN 09/13/16 [History] Warfarin [Coumadin] 5 mg PO TUWE 09/13/16 [History] Warfarin [Coumadin] 7.5 mg PO SUMOTHFRSA 09/25/16 [History] Allergies ceftriaxone [From Rocephin] Allergy (Severe, Verified 08/25/16 08:19) Hives ciprofloxacin [From Cipro HC] Allergy (Severe, Verified 08/25/16 08:19) Hives levofloxacin [From Levaquin] Allergy (Severe, Verified 08/25/16 08:19) Hives vancomycin Allergy (Severe, Verified 08/25/16 08:19) Rash hydrocortisone [From Cipro HC] Allergy (Intermediate, Verified 08/25/16 08:19) Hives All Systems: A 10-system review of systems was performed and is negative for pertinent findings except as documented above in the HPI. Physical Examination Vital Signs: Vital Signs, Last 4 Hours Temp Pulse Resp BP Pulse Ox 09/27/16 08:25 100 09/27/16 06:38 97.6 F 65 15 122/78 100 General appearance: no acute distress Eyes: nonicteric ENT: oropharynx moist Mallampati (class): 2 Neck: supple, no lymphadenopathy Effort: normal Inspection: hyperextended Auscultation: right: rhonchi, bilateral: diminished breath sounds Percussion: bilateral: not dull Cardiovascular: regular rate and rhythm, murmur noted Gastrointestinal: normoactive bowel sounds Extremities: no cyanosis, edema normal mental status, non-focal exam mood appropriate Results - Laboratory Findings CBC and BMP: 09/27/16 01:40 09/27/16 01:40 PT/INR, D-dimer PT 32.3 Seconds (9.4-12.1) H D 09/27/16 01:40 Abnormal lab findings: Abnormal lab results MCH 26.9 pg (28.0-33.3) L 09/27/16 01:40 RDW 16.4 % (11.5-14.5) H 09/27/16 01:40 Plt Count 135 K/mcL (140-400) L 09/27/16 01:40 Lymphocytes # 0.4 K/mcL (0.6-4.6) L 09/27/16 01:40 Reactive Lymphocytes Present (Not Present) A 09/27/16 01:40 Platelet Estimate Slight Decrease (Normal) L 09/27/16 01:40 Anisocytosis 1+ (Not Present) A 09/27/16 01:40 Microcytosis Present (Not Present) A 09/27/16 01:40 PT 32.3 Seconds (9.4-12.1) H D 09/27/16 01:40 APTT 42.3 Seconds (26.0-36.0) H 09/26/16 04:40 Potassium 3.3 mEq/L (3.5-4.5) L 09/27/16 01:40 BUN 32 mg/dL (7-20) H 09/27/16 01:40 Creatinine 1.32 mg/dL (0.57-1.11) H 09/27/16 01:40 Est GFR ( Amer) 48 (> 60) L 09/27/16 01:40 Est GFR (Non-Af Amer) 40 (> 60) L 09/27/16 01:40 Glucose 158 mg/dL (70-99) H 09/27/16 01:40 POC Glucose 119 (58-89) H 09/27/16 06:33 Calcium 8.5 mg/dL (8.6-10.8) L 09/27/16 01:40 Influenza Type B (PCR) DETECTED (Not Detect) A 09/25/16 23:46 - Diagnostic Findings CT scan - chest: report reviewed, image reviewed - Clinical Findings Intake & Output: Intake & Output 09/26/16 09/27/16 09/27/16 23:59 07:59 15:59 Intake Total 520 / 520 Output Total 700 / 700 Balance -180 / -180 Weight 57.606 kg Consult Discharge Plan - Plan Referrals: Christoph Hughes, [Primary Care Provider] -
[2016-09-27] MEDS: Budesonide/Formoterol 160/4.5 MDI IH SCH ×2 (10:43→20:58)
[2016-09-27] MEDS: traMADol 50 MG TABLET PO PRN (16:03)
--- NOTE | 2016-09-27 17:52 | Internal Med Progress Note ---
Date of Encounter: 09/27/16 Time of Encounter: 09:30 - Assessment and plan (1) HCAP (healthcare-associated pneumonia) Current Visit: No Status: Acute Assessment and plan: Patient has improved clinically. She was seen by pulmonology this morning who decided a bronchoscopy was not indicated at this time. We will de-escalate her antibiotics and continue to monitor. On examination, fair to good aeration throughout with coarse wheezing present. Will trial Acapella and Mucomyst with chest physiotherapy. Preliminary sputum culture unremarkable, will await final results. 09/03/16 In the last month, this is the patient's third admission. On 08/26/16, patient was admitted for 2 days for a COPD exacerbation and sent home on doxycycline. During this visit, the patient transitioned from 2 L per nasal cannula at night to 2 L per nasal cannula continuously. Then on 09/13/16, she was admitted for 3 days, this time for pneumonia and was treated with Zosyn while admitted and sent home on Augmentin. She is now back 9 days after her most recent discharge and her chest x-ray is again consistent with persistent/recurrent pneumonia. She was treated with Zosyn and emergency department, and is currently on doxycycline. She is allergic to cephalosporins, fluoroquinolones, and vancomycin. It does not appear as if the doxycycline or Zosyn were successful in the past, we will place her on meropenem and gentamicin with sputum culture pending. Will bring pulmonology on board given her recurrent pneumonia. Will also treat for COPD exacerbation. ITS Impressions Chest X-Ray 09/25/16 14:53 IMPRESSION: Right infrahilar and bibasilar airspace disease with a meniscus at the left costophrenic angle which could represent a trace effusion or pleural scar. These changes appear similar, and could represent persistent or recurrent pneumonia. D/ / Elmer Lopez MD / Elmer Lopez MD Interpreting Provider: Elmer Lopez MD (2) Acute exacerbation of chronic obstructive pulmonary disease (COPD) Current Visit: Yes Status: Acute (3) Failure of outpatient treatment Current Visit: No Status: Acute (4) Influenza B Current Visit: Yes Status: Acute Assessment and plan: Tamiflu, isolation precautions (5) Hypertension Current Visit: No Status: Chronic Assessment and plan: Controlled, her home Toprol 12.5 mg twice a day, furosemide 40 mg twice a day have been continued, we will continue to trend Qualifiers: Hypertension type: essential hypertension Qualified Code(s): I10 - Essential (primary) hypertension (6) H/O mitral valve replacement with mechanical valve Current Visit: No Status: Chronic (7) DVT prophylaxis Current Visit: No Status: Acute Assessment and plan: On Coumadin, will trend INR. 1.2 and her INR noted overnight, will hold her Coumadin for tonight and trend her INR (8) Acute and chronic respiratory failure Current Visit: No Status: Acute Assessment and plan: Patient is on 2 L per nasal cannula at home but over the past couple weeks prior to presentation, she required increased oxygen. She is currently on 3 L and is still more short of breath than usual but improving, was on 4L yesterday. We will continue to monitor Qualifiers: Respiratory failure complication: unspecified whether with hypoxia or hypercapnia Qualified Code(s): J96.20 - Acute and chronic respiratory failure , unspecified whether with hypoxia or hypercapnia (9) Diastolic heart failure Current Visit: No Status: Chronic Assessment and plan: Appears euvolemic on examination, home dosing of furosemide continued. No acute exacerbation. (10) Anxiety Current Visit: No Status: Chronic (11) COPD (chronic obstructive pulmonary disease) Current Visit: No Status: Chronic Qualifiers: COPD type: unspecified COPD Qualified Code(s): J44.9 - Chronic obstructive pulmonary disease, unspecified (12) CKD (chronic kidney disease) stage 3, GFR 30-59 ml/min Current Visit: No Status: Chronic Assessment and plan: Stable and consistent with her baseline, mild acute kidney injury overnight, will hold lasix and monitor. Deescalating antibiotics as well. (13) Pulmonary nodule Current Visit: No Status: Chronic Assessment and plan: Continue follow-up outpatient (14) Atrial fibrillation Current Visit: No Status: Chronic Assessment and plan: Rate controlled, on Coumadin - Subjective Interval history: Patient seen and examined. On examination, patient is sitting upright in her chair eating breakfast. On examination, patient is alert and oriented 3 and states that her breathing is improved from yesterday. She denies pain and is endorsing a normal appetite. - Constitutional Vitals: Temp Pulse Resp BP Pulse Ox 98.1 F 90 16 108/74 100 09/27/16 15:05 09/27/16 15:05 09/27/16 16:19 09/27/16 15:05 09/27/16 16:19 General appearance: Present: mild distress, A&O X 3, pleasant, answers questions appropriately - Head Head exam: Present: atraumatic, normocephalic - Eye Eye exam: Present: PERRL, conjuntiva pink, sclera anicteric Pupils: Present: PERRL - Neck Neck exam general surgery: Present: supple, trachea midline. Absent: lymphadenopathy - Respiratory Respiratory exam: Present: decreased breath sounds, rhonchi, wheezes. Absent: accessory muscle use, rales, respiratory distress - Cardiovascular Cardiovascular exam: Present: RRR, +S1, +S2. Absent: diastolic murmur, gallop, rubs, systolic murmur - GI/Abdominal GI/Abdominal exam: Present: normal bowel sounds, soft, no peritoneal signs. Absent: distended, tenderness - Extremities Exam Extremities exam: Present: warm, radial pulses palpable and symetrical. Absent : calf tenderness, cyanotic, pedal edema - Neurological Exam Neurological exam: Present: alert, CN II-XII intact, oriented X3, no focal deficits, strengths equal and symetr throughout. Absent: pronater drift, facial droop, speech deficit - Skin Skin exam: Present: dry, intact, normal color, warm Internal Medicine: Result - Labs CBC & Chem 7: 09/27/16 01:40 09/27/16 01:40 Labs: Short CBC 09/27/16 Range/Units 01:40 WBC 5.3 D (4.3-11.1) K/mcL Hgb 11.6 (11.5-15.4) g/dL Hct 36.6 (35.3-44.9) % Plt Count 135 L (140-400) K/mcL Neutrophils # 4.5 (1.6-8.9) K/mcL BMP 09/27/16 01:40 Sodium 140 Potassium 3.3 L Chloride 102 Carbon Dioxide 28 BUN 32 H Creatinine 1.32 H Glucose 158 H Calcium 8.5 L - ABG Interpretation ABG results: PT/INR, D-dimer PT 32.3 Seconds (9.4-12.1) H D 09/27/16 01:40 - Impressions Impressions Chest CT 09/26/16 12:10 IMPRESSION: 1. Interval development of complete left lower lobe collapse secondary to dense mucous plugging within the left lower lobe bronchi. Pulmonary consultation is suggested. 2. No significant change in appearance of right lower lobe pneumonia. 3. Stable small left pleural effusion. 4. Severe emphysema. 5. Two stable pulmonary nodules, the larger measuring 7 mm within the left upper lobe. Further follow-up of these nodules is as suggested below. 6. Stable mild mediastinal lymphadenopathy. RECOMMENDATIONS: Fleischner Society guidelines for follow-up and management of incidentally detected pulmonary nodules: Multiple Solid Nodules: Nodule size equals 6-8 mm In a low-risk patient, CT at 3-6 months, then consider CT at 18-24 months. In a high-risk patient, CT at 3-6 months, then CT at 18-24 months. - Low risk patients include individuals with minimal or absent history of smoking and other known risk factors. - High risk patients include individuals with a history or smoking or known risk factors. Radiology 2017 http://pubs.rsna.org/doi/full/10.1148/[email or web address] D/ / 09/26/2016 15:52:52 Jose Roberto Sadler MD / nubia Interpreting Provider: Jose Roberto Sadler MD Consult Discharge Plan - Plan Referrals: Christoph Hughes DO [Primary Care Provider] -
[2016-09-27] MEDS ORDERED: Potassium Chloride Elixir 20 MEQ/15 ML UDC PO ONE (18:07)
[2016-09-27] MEDS: Gabapentin 100 MG CAPSULE PO SCH (20:48)
[2016-09-27] MEDS: Loratadine 10 MG TABLET PO SCH (20:49)
--- NOTE | 2016-09-27 21:04 | Electrocardiograph Report ---
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
[2016-09-28 04:09] LABS: Basophils % 0.2 %; Hematocrit 37.4 % (35.3-44.9); Hemoglobin 11.9 g/dL (11.5-15.4); Lymphocytes # 0.6 K/mcL (0.6-4.6); Lymphocytes % 8.8 %; Mean Corpuscular HGB Conc 31.8 g/dL (31.6-35.5); Mean Corpuscular Volume 84.8 fL (83.0-100.0); Mean Platelet Volume 10.5 fL (9.4-12.4); Monocytes # 0.4 K/mcL (0.0-1.3); Monocytes % 5.6 %; Neutrophils # 5.2 K/mcL (1.6-8.9); Platelet Count 143 K/mcL (140-400); Red Blood Count 4.41 M/mcL (3.82-4.97); Red Cell Distribution Width 16.5 % (11.5-14.5); Segmented Neutrophils % 84.4 %
[2016-09-28 04:13] LABS: INR 3.8; Prothrombin Time 42.7 Seconds (9.4-12.1)
[2016-09-28 04:23] LABS: Calcium 8.8 mg/dL (8.6-10.8); Magnesium 1.8 mg/dL (1.6-2.6); Potassium 3.8 mEq/L (3.5-4.5)
[2016-09-28 04:28] LABS: Platelet Estimate Slight Decrease (Normal)
[2016-09-28 04:37] LABS: Poikilocytosis 1+ (Not Present)
[2016-09-28] MEDS: Acetylcysteine 10% 2 ML INHSOL IH SCH ×4 (04:57→23:55)
[2016-09-28] MEDS: Ipratropium/Albuterol Neb 3 ML IH SCH ×5 (04:57→23:55)
[2016-09-28] MEDS: Meropenem 1,000 MG in 0.9 % Sodium Chloride Mini Bag 100 ML IVPB SCH ×2 (06:11→17:50)
[2016-09-28] MEDS: Metoprolol XL (24 HR) Succ 25 MG TAB.ER.24H PO SCH ×2 (09:25→20:08)
[2016-09-28] MEDS: traMADol 50 MG TABLET PO PRN ×2 (09:26→20:14)
[2016-09-28] MEDS: Oseltamivir 6 MG/ML UDC PO SCH ×2 (09:26→20:09)
[2016-09-28] MEDS: Fluticasone Propionate Nasal 50 MCG/SPRAY BOTTLE NS SCH (09:26)
[2016-09-28] MEDS: methylPREDNISolone 125 MG/2 ML VIAL IVP SCH ×2 (09:26→17:51)
[2016-09-28] MEDS: Furosemide 40 MG TABLET PO SCH ×2 (09:26→17:50)
[2016-09-28] MEDS: DALIRESP 500 MCG PO SCH (09:26)
--- NOTE | 2016-09-28 10:12 | Pulmonology Progress Note ---
<Sandra Rubio - Last Filed: 09/28/16 13:25> Date of Encounter: 09/28/16 Time of Encounter: 10:07 Assessment and Plan (1) Mucus plugging of bronchi Current Visit: No Status: Acute CXR concerning for mucus plugging but due to anticoagulation, bronchoscopy is not indicated at this time. Patient is improving with conservative measures. 1. Continue Acapella, mucomyst and chest physiotherapy. (2) Acute exacerbation of chronic obstructive airways disease Current Visit: No Status: Chronic Acute exacerbation of COPD likely secondary to acute influenza B infection. Patient has also recently had multilobular pneumonia with minimal improvement on previous antibiotics. This could also be related to progression of underlying disease. Continue supportive care. 1. Wean O2 as tolerated to baseline of 2L 2. Continue bronchodilators 3. With wheezing, will continue systemic steroids 4. CXR tomorrow to evaluate progression/improvement of disease 5. Sputum cultures negative, may consider narrowing antibiotic range. (3) Influenza B Current Visit: Yes Status: Acute Respiratory panel positive for influenza B. Continue Tamiflu and supportive care. (4) Anticoagulated on Coumadin Current Visit: Yes Status: Chronic Continue anticoagulation with warfarin. Subjective Principal diagnosis: Mucus plugging, acute COPD exacerbation, influenza B Interval history: No acute events overnight. Patient afebrile, vital signs within normal limits. She reports that she is feeling a little better than when she was admitted. She says that her shortness of breath with walking around is not as severe as it was. She still has a dry hacking cough. Breathing treatments help however she is not bringing up any mucous. On exam, patient is awake and alert, in no acute distress. She is conversing with no shortness of breath. O2 saturation 100% on 3L. Lungs with diffuse rhonchi and fine expiratory wheezing. No pedal edema. Objective PUL Vital signs: Last Vital Signs Temp 97.5 F L 09/28/16 06:44 Pulse 83 09/28/16 06:44 Resp 16 09/28/16 06:44 BP 147/81 09/28/16 06:44 Pulse Ox 100 09/28/16 06:44 General appearance: no acute distress, alert Eyes: nonicteric ENT: oropharynx moist Mallampati (class): 2 Effort: normal Auscultation: bilateral: diminished breath sounds, wheezes, rhonchi Cardiovascular: regular rate and rhythm Gastrointestinal: soft, non-tender, non-distended Integumentary: normal Extremities: no cyanosis, no edema Musculoskeletal: no deformities normal mental status, non-focal exam mood appropriate, affect normal Results - Laboratory Findings CBC and BMP: 09/28/16 04:00 09/28/16 04:00 PT/INR, D-dimer PT 42.7 Seconds (9.4-12.1) H 09/28/16 04:00 Abnormal lab findings: Abnormal lab results MCH 27.0 pg (28.0-33.3) L 09/28/16 04:00 RDW 16.5 % (11.5-14.5) H 09/28/16 04:00 Reactive Lymphocytes Present (Not Present) A 09/27/16 01:40 Platelet Estimate Slight Decrease (Normal) L 09/28/16 04:00 Poikilocytosis 1+ (Not Present) A 09/28/16 04:00 Anisocytosis 1+ (Not Present) A 09/27/16 01:40 Microcytosis Present (Not Present) A 09/27/16 01:40 PT 42.7 Seconds (9.4-12.1) H 09/28/16 04:00 APTT 42.3 Seconds (26.0-36.0) H 09/26/16 04:40 Carbon Dioxide 30 mEq/L (19-29) H 09/28/16 04:00 BUN 33 mg/dL (7-20) H 09/28/16 04:00 Creatinine 1.31 mg/dL (0.57-1.11) H 09/28/16 04:00 Est GFR ( Amer) 49 (> 60) L 09/28/16 04:00 Est GFR (Non-Af Amer) 40 (> 60) L 09/28/16 04:00 Glucose 111 mg/dL (70-99) H 09/28/16 04:00 POC Glucose 105 (58-89) H 09/28/16 06:50 Influenza Type B (PCR) DETECTED (Not Detect) A 09/25/16 23:46 - Clinical Findings Intake & Output: Intake & Output 09/27/16 09/28/16 09/28/16 23:59 07:59 15:59 Intake Total 100 / 100 100 / 100 120 / 120 Output Total 1200 / 1200 Balance -1100 / -1100 100 / 100 120 / 120 Weight 57.425 kg Consult Discharge Plan - Plan Referrals: Christoph Hughes DO [Primary Care Provider] - <Wagner Rodarte - Last Filed: 09/28/16 14:21> Objective PUL Vital signs: Last Vital Signs Temp 97.8 F 09/28/16 11:12 Pulse 79 09/28/16 11:12 Resp 16 09/28/16 11:35 BP 124/75 09/28/16 11:12 Pulse Ox 98 09/28/16 11:35 Results - Laboratory Findings CBC and BMP: 09/28/16 04:00 09/28/16 04:00 PT/INR, D-dimer PT 42.7 Seconds (9.4-12.1) H 09/28/16 04:00 Abnormal lab findings: Abnormal lab results MCH 27.0 pg (28.0-33.3) L 09/28/16 04:00 RDW 16.5 % (11.5-14.5) H 09/28/16 04:00 Reactive Lymphocytes Present (Not Present) A 09/27/16 01:40 Platelet Estimate Slight Decrease (Normal) L 09/28/16 04:00 Poikilocytosis 1+ (Not Present) A 09/28/16 04:00 Anisocytosis 1+ (Not Present) A 09/27/16 01:40 Microcytosis Present (Not Present) A 09/27/16 01:40 PT 42.7 Seconds (9.4-12.1) H 09/28/16 04:00 APTT 42.3 Seconds (26.0-36.0) H 09/26/16 04:40 Carbon Dioxide 30 mEq/L (19-29) H 09/28/16 04:00 BUN 33 mg/dL (7-20) H 09/28/16 04:00 Creatinine 1.31 mg/dL (0.57-1.11) H 09/28/16 04:00 Est GFR ( Amer) 49 (> 60) L 09/28/16 04:00 Est GFR (Non-Af Amer) 40 (> 60) L 09/28/16 04:00 Glucose 111 mg/dL (70-99) H 09/28/16 04:00 POC Glucose 93 (58-89) H 09/28/16 11:15 Influenza Type B (PCR) DETECTED (Not Detect) A 09/25/16 23:46 - Clinical Findings Intake & Output: Intake & Output 09/27/16 09/28/16 09/28/16 23:59 07:59 15:59 Intake Total 100 / 100 100 / 100 320 / 320 Output Total 1200 / 1200 Balance -1100 / -1100 100 / 100 320 / 320 Weight 57.425 kg - Attending Attestation I examined this patient and my medical decision-making was reviewed with the WAREHOUSE ASSOCIATE/PA/Advanced Practice Nurse/Resident Physician. I agree with the documented findings, disposition and treatment plan as described except to the extent set forth below. Feeling better today. Cough is still non productive Impression: 1. PNA s/t Influenza B 2. Acute on Chronic Hypoxic respiratory failure 3. COPD with Exacerbation Plan: Cont Ostelamivir cont another day of IV steroid then can transition to enteral prednisone 40mg with 2 week taper cont bronchodilators and MDIs deescalate Abx to azithro x 5 days (z pack) cont BPT via [facility], ambulation, mucomyst, and, Acapella No plan for bronch acutely given risk benefit with LTA- repeat CXR tomorrow
[2016-09-28] MEDS: Budesonide/Formoterol 160/4.5 MDI IH SCH ×2 (11:35→19:49)
--- NOTE | 2016-09-28 17:11 | Internal Med Progress Note ---
Date of Encounter: 09/28/16 Time of Encounter: 15:30 - Assessment and plan (1) HCAP (healthcare-associated pneumonia) Current Visit: No Status: Acute Assessment and plan: Clinically stable from yesterday. She remains with diffuse expiratory wheezing and prolonged expiratory phase with few, scattered coarse breath sounds present. Sputum culture negative. We will continue meropenem and possibly switch her to azithromycin prior to discharge. She has allergies to cephalosporins, fluoroquinolones, and vancomycin. Pulmonology on board, plan is for outpatient bronchoscopy if clinically indicated. We will continue his Acapella, Mucomyst, and chest physiotherapy. She has completed her Tamiflu course. 09/04/16 Patient has improved clinically. She was seen by pulmonology this morning who decided a bronchoscopy was not indicated at this time. We will de-escalate her antibiotics and continue to monitor. On examination, fair to good aeration throughout with coarse wheezing present. Will trial Acapella and Mucomyst with chest physiotherapy. Preliminary sputum culture unremarkable, will await final results. 09/03/16 In the last month, this is the patient's third admission. On 08/26/16, patient was admitted for 2 days for a COPD exacerbation and sent home on doxycycline. During this visit, the patient transitioned from 2 L per nasal cannula at night to 2 L per nasal cannula continuously. Then on 09/13/16, she was admitted for 3 days, this time for pneumonia and was treated with Zosyn while admitted and sent home on Augmentin. She is now back 9 days after her most recent discharge and her chest x-ray is again consistent with persistent/recurrent pneumonia. She was treated with Zosyn and emergency department, and is currently on doxycycline. She is allergic to cephalosporins, fluoroquinolones, and vancomycin. It does not appear as if the doxycycline or Zosyn were successful in the past, we will place her on meropenem and gentamicin with sputum culture pending. Will bring pulmonology on board given her recurrent pneumonia. Will also treat for COPD exacerbation. ITS Impressions Chest X-Ray 09/25/16 14:53 IMPRESSION: Right infrahilar and bibasilar airspace disease with a meniscus at the left costophrenic angle which could represent a trace effusion or pleural scar. These changes appear similar, and could represent persistent or recurrent pneumonia. D/ / Elmer Lopez MD / Elmer Lopez MD Interpreting Provider: Elmer Lopez MD (2) Acute exacerbation of chronic obstructive pulmonary disease (COPD) Current Visit: Yes Status: Acute (3) Failure of outpatient treatment Current Visit: No Status: Acute (4) Influenza B Current Visit: Yes Status: Acute Assessment and plan: Tamiflu course completed, isolation precautions (5) Hypertension Current Visit: No Status: Chronic Assessment and plan: Controlled, her home Toprol 12.5 mg twice a day, furosemide 40 mg twice a day have been continued, we will continue to trend Qualifiers: Hypertension type: essential hypertension Qualified Code(s): I10 - Essential (primary) hypertension (6) H/O mitral valve replacement with mechanical valve Current Visit: No Status: Chronic (7) DVT prophylaxis Current Visit: No Status: Acute Assessment and plan: On Coumadin, will trend INR. A rapid increase in her INR yesterday was noted in her dosage of Coumadin last night was held. She had another one point increase in her INR today, Coumadin dosing per pharmacy. (8) Acute and chronic respiratory failure Current Visit: No Status: Acute Assessment and plan: Patient is on 2 L per nasal cannula at home but over the past couple weeks prior to presentation, she required increased oxygen. She is currently on 3 L and is still more short of breath than usual but improving, was initially on 4L upon being admitted. We will continue to monitor and attempt to wean her back to her baseline at 2 L per nasal cannula continuously. Qualifiers: Respiratory failure complication: unspecified whether with hypoxia or hypercapnia Qualified Code(s): J96.20 - Acute and chronic respiratory failure , unspecified whether with hypoxia or hypercapnia (9) Diastolic heart failure Current Visit: No Status: Chronic Assessment and plan: Appears euvolemic on examination, home dosing of furosemide continued. No acute exacerbation. (10) Anxiety Current Visit: No Status: Chronic Assessment and plan: Patient is endorsing a lot of anxiety regarding returning home. She is worried that she will have to come back into the hospital. This is her third admission over the last couple months. Reassurance provided and will continue to discuss plan of care. (11) COPD (chronic obstructive pulmonary disease) Current Visit: No Status: Chronic Qualifiers: COPD type: unspecified COPD Qualified Code(s): J44.9 - Chronic obstructive pulmonary disease, unspecified (12) CKD (chronic kidney disease) stage 3, GFR 30-59 ml/min Current Visit: No Status: Chronic Assessment and plan: Stable and consistent with her baseline, will continue to hold lasix and monitor. Deescalated antibiotics as well. (13) Pulmonary nodule Current Visit: No Status: Chronic Assessment and plan: Continue follow-up outpatient (14) Atrial fibrillation Current Visit: No Status: Chronic Assessment and plan: Rate controlled, on Coumadin - Subjective Interval history: Patient seen and examined. On examination, patient is sitting upright in her chair watching television. Patient states she has feels about the same as yesterday. She states she is eating well. She states that she is able to get up and go to the bathroom and move about her room but is still more short of breath with exertion than usual. Patient states she is very concerned and worried about being discharged to early for fear of having to come back. - Constitutional Vitals: Temp Pulse Resp BP Pulse Ox 98.3 F 94 16 115/74 92 L 09/28/16 15:29 09/28/16 15:29 09/28/16 15:56 09/28/16 15:29 09/28/16 15:56 General appearance: Present: mild distress, A&O X 3, pleasant, answers questions appropriately - Head Head exam: Present: atraumatic, normocephalic - Eye Eye exam: Present: PERRL, conjuntiva pink, sclera anicteric Pupils: Present: PERRL - Neck Neck exam general surgery: Present: supple, trachea midline. Absent: lymphadenopathy - Respiratory Respiratory exam: Present: decreased breath sounds, prolonged expiratory phase, respiratory distress, rhonchi, wheezes. Absent: accessory muscle use, rales - Cardiovascular Cardiovascular exam: Present: RRR, +S1, +S2. Absent: diastolic murmur, gallop, rubs, systolic murmur - GI/Abdominal GI/Abdominal exam: Present: normal bowel sounds, soft, no peritoneal signs. Absent: distended, tenderness - Extremities Exam Extremities exam: Present: warm, radial pulses palpable and symetrical. Absent : calf tenderness, cyanotic, pedal edema - Neurological Exam Neurological exam: Present: alert, CN II-XII intact, normal gait, oriented X3, no focal deficits, strengths equal and symetr throughout. Absent: pronater drift, facial droop, speech deficit - Skin Skin exam: Present: dry, intact, normal color, warm Internal Medicine: Result - Labs CBC & Chem 7: 09/28/16 04:00 09/28/16 04:00 Labs: Short CBC 09/28/16 Range/Units 04:00 WBC 6.2 (4.3-11.1) K/mcL Hgb 11.9 (11.5-15.4) g/dL Hct 37.4 (35.3-44.9) % Plt Count 143 (140-400) K/mcL Neutrophils # 5.2 (1.6-8.9) K/mcL BMP 09/28/16 04:00 Sodium 139 Potassium 3.8 Chloride 102 Carbon Dioxide 30 H BUN 33 H Creatinine 1.31 H Glucose 111 H Calcium 8.8 - ABG Interpretation ABG results: PT/INR, D-dimer PT 42.7 Seconds (9.4-12.1) H 09/28/16 04:00 Consult Discharge Plan - Plan Referrals: Christoph Hughes DO [Primary Care Provider] -
[2016-09-28] MEDS: Nystatin SUSP 5 ML UD.LIQ PO SCH ×2 (17:50→20:09)
[2016-09-28] MEDS: Gabapentin 100 MG CAPSULE PO SCH (20:08)
[2016-09-28] MEDS: Loratadine 10 MG TABLET PO SCH (20:08)
[2016-09-29] MEDS: methylPREDNISolone 125 MG/2 ML VIAL IVP SCH ×2 (00:26→08:36)
[2016-09-29 03:56] LABS: INR 2.6; Prothrombin Time 28.9 Seconds (9.4-12.1)
[2016-09-29 04:02] LABS: Calcium 9.2 mg/dL (8.6-10.8); Potassium 3.5 mEq/L (3.5-4.5)
[2016-09-29] MEDS: Acetylcysteine 10% 2 ML INHSOL IH SCH ×4 (04:35→19:33)
[2016-09-29] MEDS: Ipratropium/Albuterol Neb 3 ML IH SCH ×6 (04:35→23:41)
[2016-09-29] MEDS: Meropenem 1,000 MG in 0.9 % Sodium Chloride Mini Bag 100 ML IVPB SCH ×2 (05:36→18:05)
[2016-09-29] MEDS: Budesonide/Formoterol 160/4.5 MDI IH SCH ×2 (07:59→19:32)
[2016-09-29] MEDS: Nystatin SUSP 5 ML UD.LIQ PO SCH ×4 (08:36→21:02)
[2016-09-29] MEDS: Furosemide 40 MG TABLET PO SCH ×2 (08:36→18:08)
[2016-09-29] MEDS: Metoprolol XL (24 HR) Succ 25 MG TAB.ER.24H PO SCH ×2 (08:43→21:03)
[2016-09-29] MEDS: Fluticasone Propionate Nasal 50 MCG/SPRAY BOTTLE NS SCH (08:49)
[2016-09-29] MEDS: DALIRESP 500 MCG PO SCH (08:51)
[2016-09-29] MEDS: Oseltamivir 6 MG/ML UDC PO SCH ×2 (09:16→21:04)
[2016-09-29] MEDS: traMADol 50 MG TABLET PO PRN ×2 (09:17→21:02)
--- NOTE | 2016-09-29 11:57 | Pulmonology Progress Note ---
Date of Encounter: 09/29/16 Time of Encounter: 11:57 Assessment and Plan (1) Mucus plugging of bronchi Current Visit: No Status: Acute CXR still with evidence of LLL collapse although generally this has been chronic. Discussed with patient will continue with conservative treatment. cont Acapella add AccuPAP Cont NAC Ambulation and OOBTC Incentive Ang Repeat CXR in 1 month with F/u in Pulmonary Pulmonary will sign off please call with questions (2) Acute exacerbation of chronic obstructive pulmonary disease (COPD) Current Visit: Yes Status: Acute enteral prednisone 40mg wean over 2 weeks at discharge cont home MDIs (3) Dyspnea Current Visit: Yes Status: Acute improving - s/t copd exacerbation Qualifiers: Dyspnea type: dyspnea on exertion Qualified Code(s): R06.09 - Other forms of dyspnea (4) Influenza B Current Visit: Yes Status: Acute treated with Tamiflu (5) H/O mitral valve replacement with mechanical valve Current Visit: No Status: Chronic cont anticoagulation as routine Subjective Principal diagnosis: Mucus plugging, acute COPD exacerbation, influenza B Interval history: Feels much improved overnight. Still with infrequent non productive cough. Objective PUL Vital signs: Last Vital Signs Temp 98.1 F 09/29/16 11:32 Pulse 96 09/29/16 11:32 Resp 16 09/29/16 11:32 BP 131/75 09/29/16 11:32 Pulse Ox 97 09/29/16 11:32 General appearance: no acute distress Auscultation: left: diminished breath sounds, rhonchi (LLL ), bilateral: wheezes (scattered wheeze ) Cardiovascular: regular rate and rhythm Extremities: no edema, other (+ clubbing ) normal mental status, non-focal exam mood appropriate Results - Laboratory Findings CBC and BMP: 09/28/16 04:00 09/29/16 03:45 PT/INR, D-dimer PT 28.9 Seconds (9.4-12.1) H 09/29/16 03:45 Abnormal lab findings: Abnormal lab results MCH 27.0 pg (28.0-33.3) L 09/28/16 04:00 RDW 16.5 % (11.5-14.5) H 09/28/16 04:00 Reactive Lymphocytes Present (Not Present) A 09/27/16 01:40 Platelet Estimate Slight Decrease (Normal) L 09/28/16 04:00 Poikilocytosis 1+ (Not Present) A 09/28/16 04:00 Anisocytosis 1+ (Not Present) A 09/27/16 01:40 Microcytosis Present (Not Present) A 09/27/16 01:40 PT 28.9 Seconds (9.4-12.1) H 09/29/16 03:45 APTT 42.3 Seconds (26.0-36.0) H 09/26/16 04:40 Carbon Dioxide 31 mEq/L (19-29) H 09/29/16 03:45 BUN 34 mg/dL (7-20) H 09/29/16 03:45 Creatinine 1.13 mg/dL (0.57-1.11) H 09/29/16 03:45 Est GFR ( Amer) 58 (> 60) L 09/29/16 03:45 Est GFR (Non-Af Amer) 48 (> 60) L 09/29/16 03:45 BUN/Creatinine Ratio 30 (6-26) H 09/29/16 03:45 Glucose 124 mg/dL (70-99) H 09/29/16 03:45 POC Glucose 138 (58-89) H 09/29/16 11:25 Calculated Osmolality 303 (280-300) H 09/29/16 03:45 Influenza Type B (PCR) DETECTED (Not Detect) A 09/25/16 23:46 - Diagnostic Findings Chest x-ray: report reviewed, image reviewed - Clinical Findings Intake & Output: Intake & Output 09/28/16 09/29/16 09/29/16 23:59 07:59 15:59 Intake Total 690 / 690 450 / 450 Output Total 1300 / 1300 300 / 300 Balance -610 / -610 150 / 150 Weight 57.5 kg Consult Discharge Plan - Plan Referrals: Christoph Hughes DO [Primary Care Provider] -
--- NOTE | 2016-09-29 13:32 | Internal Med Progress Note ---
<Sylvia Almaguer - Last Filed: 09/29/16 15:30> Time of Encounter: 13:25 - Assessment and plan (1) HCAP (healthcare-associated pneumonia) Current Visit: No Status: Acute Assessment and plan: Patient hospitalized three times in past months. Admitted 08/26/16 for 2 days for COPD exacerbation, sent home on doxycycline. Transitioned from 2L NC at night to 2L NC continuously. Admitted 09/13/16 for 3 days for pneumonia, treated with zosyn. Discharged on augmentin. Clinically stable from yesterday. Remains with scattered rhonchi Sputum culture negative. Continue meropenem (has received 6 doses over 4 days), may consider switching to azithromycin on discharge Allergies to cephalosporins, fluoroquinolones, and vancomycin. Pulmonology consulted, appreciate input and expertise. Plan for possible outpatient bronchoscopy Continue his Acapella, Mucomyst, and chest physiotherapy. ITS Impressions Chest X-Ray 09/25/16 14:53 IMPRESSION: Right infrahilar and bibasilar airspace disease with a meniscus at the left costophrenic angle which could represent a trace effusion or pleural scar. These changes appear similar, and could represent persistent or recurrent pneumonia. D/ / Elmer Lopez MD / Elmer Lopez MD Interpreting Provider: Elmer Lopez MD (2) Acute exacerbation of chronic obstructive airways disease Current Visit: No Status: Chronic Assessment and plan: Secondary to Influenza B and HCAP Treat with IV steroids (currently day 4), consider switching to oral steroids COntinnue duo-neb scheduled and albuterol PRN Continue 2L NC continuously Pulmonology consulted, recommend further follow up as outpatient for possible bronchoscopy (3) Influenza B Current Visit: Yes Status: Acute Assessment and plan: RIDP positive for Influenza B Treated with tamiflu, has received 6 of 9 doses Other treatment as per COPD and HCAP (4) Acute and chronic respiratory failure Current Visit: No Status: Acute Assessment and plan: Patient is on 2 L per nasal cannula at home, transitioned at prior visit from 2L NC at night Will continue to monitor and attempt to wean her back to her baseline of 2L NC to keep Sp)2 > 88% Acute worsening of hypoxia likely secondary to undelrying pneumonia and influenza B Qualifiers: Respiratory failure complication: unspecified whether with hypoxia or hypercapnia Qualified Code(s): J96.20 - Acute and chronic respiratory failure , unspecified whether with hypoxia or hypercapnia (5) Hypertension Current Visit: No Status: Chronic Assessment and plan: Controlled, Continue home toprol and lasix Continue to monitor vitals Qualifiers: Hypertension type: essential hypertension Qualified Code(s): I10 - Essential (primary) hypertension (6) H/O mitral valve replacement with mechanical valve Current Visit: No Status: Chronic (7) Diastolic heart failure Current Visit: No Status: Chronic Assessment and plan: Appears euvolemic on examination, no evidence of exacerbation Continue lasix as above. Qualifiers: Heart failure chronicity: chronic Qualified Code(s): I50.32 - Chronic diastolic (congestive) heart failure (8) Anxiety Current Visit: No Status: Chronic Assessment and plan: Patient remains very anxious about returning home. Also seems to believe that IV antibiotics are better than oral. Reassurance provided that IV and oral antibiotics were equally effective. (9) CKD (chronic kidney disease) stage 3, GFR 30-59 ml/min Current Visit: No Status: Chronic Assessment and plan: Stable and consistent with her baseline Continue to monitor (10) Pulmonary nodule Current Visit: No Status: Chronic Assessment and plan: Continue follow-up outpatient (11) Atrial fibrillation Current Visit: No Status: Chronic Assessment and plan: Rate controlled, on Coumadin Qualifiers: Atrial fibrillation type: chronic Qualified Code(s): I48.2 - Chronic atrial fibrillation - Subjective Interval history: Patient is seen and examined, she is sitting in chair resting comfortably. Patient admitted for shortness of breath secondary to COPD exacerbation and was found to be positive for influenza B. She has completed her course of tamiflu. Patient reports that she is stll feeling about the same. She does not feel like her breathing is back to her baseline. She remains concerned about going home and having to come back quickly because she was only home for a short time after last hospitalization prior to having to come back She remains extremely concerned about going home too soon. - Constitutional Vitals: Temp Pulse Resp BP Pulse Ox 98.1 F 96 16 131/75 97 09/29/16 11:32 09/29/16 11:32 09/29/16 11:32 09/29/16 11:32 09/29/16 11:32 General appearance: Present: mild distress, A&O X 3, pleasant, answers questions appropriately - Head Head exam: Present: atraumatic, normocephalic - Eye Eye exam: Present: normal appearance. Absent: conjunctival injection - ENT ENT exam: Present: mucous membranes moist, normal external ear exam Additional comments: nasal canula in place - Neck Neck exam general surgery: Present: supple, trachea midline - Respiratory Respiratory exam: Present: prolonged expiratory phase, rhonchi (bilaterally ). Absent: rales, stridor, wheezes - Cardiovascular Cardiovascular exam: Present: RRR, +S1, +S2. Absent: clicks, diastolic murmur, gallop, rubs, systolic murmur - GI/Abdominal GI/Abdominal exam: Present: normal bowel sounds, soft. Absent: distended, guarding, rebound, tenderness - Extremities Exam Extremities exam: Present: normal capillary refill. Absent: pedal edema - Psychiatric Psychiatric exam: Present: normal affect, normal mood - Skin Skin exam: Present: dry, intact, warm Internal Medicine: Result - Labs CBC & Chem 7: 09/28/16 04:00 09/29/16 03:45 Labs: BMP 09/29/16 03:45 Sodium 142 Potassium 3.5 Chloride 100 Carbon Dioxide 31 H BUN 34 H Creatinine 1.13 H Glucose 124 H Calcium 9.2 - ABG Interpretation ABG results: PT/INR, D-dimer PT 28.9 Seconds (9.4-12.1) H 09/29/16 03:45 - Impressions Impressions Chest X-Ray 09/29/16 07:00 IMPRESSION: Persistent left basilar opacity compatible with small left pleural effusion with associated atelectasis or infiltrate along with complete to near complete collapse of left lower lobe, similar to recent CT exam. Improved aeration to the right lung base with still trace right pleural effusion and associated mild right basilar atelectasis or infiltrate. D/ / 09/29/2016 09:17:37 Ryan Cadet MD / earnold Interpreting Provider: Ryan Cadet MD Consult Discharge Plan - Plan Referrals: Christoph Hughes DO [Primary Care Provider] - <Tadeo Tolbert - Last Filed: 09/29/16 15:47> Date of Encounter: 09/29/16 - Constitutional Vitals: Temp Pulse Resp BP Pulse Ox 98.1 F 103 14 121/79 100 09/29/16 15:22 09/29/16 15:22 09/29/16 15:22 09/29/16 15:22 09/29/16 15:22 Internal Medicine: Result - Labs CBC & Chem 7: 09/28/16 04:00 09/29/16 03:45 Labs: BMP 09/29/16 03:45 Sodium 142 Potassium 3.5 Chloride 100 Carbon Dioxide 31 H BUN 34 H Creatinine 1.13 H Glucose 124 H Calcium 9.2 - ABG Interpretation ABG results: PT/INR, D-dimer PT 28.9 Seconds (9.4-12.1) H 09/29/16 03:45 - Impressions Impressions Chest X-Ray 09/29/16 07:00 IMPRESSION: Persistent left basilar opacity compatible with small left pleural effusion with associated atelectasis or infiltrate along with complete to near complete collapse of left lower lobe, similar to recent CT exam. Improved aeration to the right lung base with still trace right pleural effusion and associated mild right basilar atelectasis or infiltrate. D/ / 09/29/2016 09:17:37 Ryan Cadet MD / earnold Interpreting Provider: Ryan Cadet MD - Attending Attestation Acute COPD exacerbation likely secondary to healthcare associated pneumonia present upon admission and influenza B Decrease dose of IV steroids down to 40 mg twice a day, continue meropenem day 5 and Tamiflu day 4 Mild diffuse wheezing worse on the right I examined this patient and my medical decision-making was reviewed with the SHIRT MARKER/PA/Advanced Practice Nurse/Resident Physician. I agree with the documented findings, disposition and treatment plan as described except to the extent set forth below.
[2016-09-29] MEDS ORDERED: Warfarin perPT PO PRN (18:00)
[2016-09-29] MEDS ORDERED: *HR* Warfarin 5 MG TABLET PO SCH (18:00)
[2016-09-29] MEDS: *HR* Warfarin 5 MG TABLET PO SCH (18:08)
[2016-09-29] MEDS ORDERED: methylPREDNISolone 125 MG/2 ML VIAL IVP SCH (21:00)
[2016-09-29] MEDS: Loratadine 10 MG TABLET PO SCH (21:02)
[2016-09-29] MEDS: Gabapentin 100 MG CAPSULE PO SCH (21:02)
[2016-09-30] MEDS: Ipratropium/Albuterol Neb 3 ML IH SCH ×5 (04:01→20:13)
[2016-09-30] MEDS: Acetylcysteine 10% 2 ML INHSOL IH SCH ×4 (04:01→20:13)
[2016-09-30] MEDS: Meropenem 1,000 MG in 0.9 % Sodium Chloride Mini Bag 100 ML IVPB SCH ×2 (05:08→17:38)
[2016-09-30 05:38] LABS: INR 1.8; Prothrombin Time 19.6 Seconds (9.4-12.1)
[2016-09-30 05:44] LABS: BUN/Creatinine Ratio 42 (6-26); Blood Urea Nitrogen 39 mg/dL (7-20); Calcium 8.9 mg/dL (8.6-10.8); Carbon Dioxide 34 mEq/L (19-29); Chloride 98 mEq/L (98-109); Glucose 126 mg/dL (70-99); Osmolality,Calculated 305 (280-300); Potassium 3.5 mEq/L (3.5-4.5); Sodium 142 mEq/L (136-145); eGFR For African Americans > 60 (> 60); eGFR For Non-African Americans > 60 (> 60)
[2016-09-30] MEDS: Budesonide/Formoterol 160/4.5 MDI IH SCH ×2 (07:32→20:13)
[2016-09-30] MEDS: Nystatin SUSP 5 ML UD.LIQ PO SCH ×4 (09:22→21:13)
[2016-09-30] MEDS: Fluticasone Propionate Nasal 50 MCG/SPRAY BOTTLE NS SCH (09:22)
[2016-09-30] MEDS: traMADol 50 MG TABLET PO PRN ×2 (09:23→17:52)
[2016-09-30] MEDS: MethylPREDNISolone 40 MG/ML VIAL IVP SCH ×2 (09:23→21:16)
[2016-09-30] MEDS: Furosemide 40 MG TABLET PO SCH ×3 (09:23→21:14)
[2016-09-30] MEDS: Metoprolol XL (24 HR) Succ 25 MG TAB.ER.24H PO SCH ×2 (09:24→21:13)
[2016-09-30] MEDS: DALIRESP 500 MCG PO SCH (09:25)
[2016-09-30] MEDS: Oseltamivir 6 MG/ML UDC PO SCH ×2 (09:34→21:16)
--- NOTE | 2016-09-30 11:09 | Internal Med Progress Note ---
<Sylvia Almaguer - Last Filed: 09/30/16 11:24> Date of Encounter: 09/30/16 Time of Encounter: 11:06 - Assessment and plan (1) Acute exacerbation of chronic obstructive airways disease Current Visit: No Status: Chronic Assessment and plan: Acute exacerbation of COPD likely secondary to influenza B and healthcare associated oneum[place] present on admission Treat with IV steroids (currently day 5), switched from q6 hours to q 12 hours, will continue to wean and transition to an oral taper Continue duo-neb scheduled and albuterol PRN Continue 2L NC continuously Pulmonology consulted, recommend further follow up as outpatient for possible bronchoscopy. Have signed off. (2) HCAP (healthcare-associated pneumonia) Current Visit: No Status: Acute Assessment and plan: Present on admission. Patient hospitalized three times in past months. Admitted 08/26/16 for 2 days for COPD exacerbation, sent home on doxycycline. Transitioned from 2L NC at night to 2L NC continuously. Admitted 09/13/16 for 3 days for pneumonia, treated with zosyn. Discharged on augmentin. Clinically stable from yesterday. Sputum culture negative. Continue meropenem (day 5) Allergies to cephalosporins, fluoroquinolones, and vancomycin which limit outpatient treatment options Pulmonology consulted, appreciate input and expertise. Plan for possible outpatient bronchoscopy Continue his Acapella, Mucomyst, and chest physiotherapy. ITS Impressions Chest X-Ray 09/25/16 14:53 IMPRESSION: Right infrahilar and bibasilar airspace disease with a meniscus at the left costophrenic angle which could represent a trace effusion or pleural scar. These changes appear similar, and could represent persistent or recurrent pneumonia. D/ / Elmer Lopez MD / Elmer Lopez MD Interpreting Provider: Elmer Lopez MD (3) Influenza B Current Visit: Yes Status: Acute Assessment and plan: RIDP positive for Influenza B. Present on admission. Treated with tamiflu, has completed 8 of 9 doses. Last dose today. Other treatment as per COPD and HCAP (4) Acute and chronic respiratory failure Current Visit: No Status: Acute Assessment and plan: Acute worsening of hypoxia likely secondary to underlying pneumonia and influenza B which were both present on admission. Patient is on 2 L per nasal cannula at home, transitioned at prior visit from 2L NC at night Will continue to monitor and attempt to wean her back to her baseline of 2L NC to keep Sp02 > 88% Qualifiers: Respiratory failure complication: unspecified whether with hypoxia or hypercapnia Qualified Code(s): J96.20 - Acute and chronic respiratory failure , unspecified whether with hypoxia or hypercapnia (5) Hypertension Current Visit: No Status: Chronic Assessment and plan: Controlled, Continue home toprol and lasix Continue to monitor vitals Qualifiers: Hypertension type: essential hypertension Qualified Code(s): I10 - Essential (primary) hypertension (6) H/O mitral valve replacement with mechanical valve Current Visit: No Status: Chronic (7) Diastolic heart failure Current Visit: No Status: Chronic Assessment and plan: Appears euvolemic on examination, no evidence of exacerbation Continue lasix as above. Qualifiers: Heart failure chronicity: chronic Qualified Code(s): I50.32 - Chronic diastolic (congestive) heart failure (8) Anxiety Current Visit: No Status: Chronic Assessment and plan: Patient remains very anxious about returning home. Reassurance provided. (9) CKD (chronic kidney disease) stage 3, GFR 30-59 ml/min Current Visit: No Status: Chronic Assessment and plan: Stable and consistent with her baseline Continue to monitor (10) Pulmonary nodule Current Visit: No Status: Chronic Assessment and plan: Continue follow-up outpatient (11) Atrial fibrillation Current Visit: No Status: Chronic Assessment and plan: Rate controlled, on Coumadin Qualifiers: Atrial fibrillation type: chronic Qualified Code(s): I48.2 - Chronic atrial fibrillation - Subjective Interval history: Patient is seen and examined, she is sitting in chair resting comfortably. Patient admitted for shortness of breath secondary to COPD exacerbation and was found to be positive for influenza B. She has beenr eceiving tamiflu and merrepenem. Patient reports that she continues to feel slowly better. She feels like she is making slow but steady improvement daily. She states she feels like her shortness of breath with walking is improving and she can walk to the bathroom with no increasing dyspnea. She is tolerating diet with no nausea or vomiting. She has no additional concerns or complaints today. - Constitutional Vitals: Temp Pulse Resp BP Pulse Ox 97.9 F 85 16 129/79 95 09/30/16 07:26 09/30/16 07:26 09/30/16 07:32 09/30/16 07:32 09/30/16 07:32 General appearance: Present: mild distress, A&O X 3, pleasant, answers questions appropriately - Head Head exam: Present: atraumatic, normocephalic - Eye Eye exam: Present: normal appearance. Absent: conjunctival injection - ENT ENT exam: Present: mucous membranes moist, normal external ear exam Additional comments: nasal canula in place - Neck Neck exam general surgery: Present: supple, trachea midline - Respiratory Respiratory exam: Present: prolonged expiratory phase, wheezes (expiratory wheezes bilaterally, improved from yesterday ). Absent: rales, rhonchi, stridor - Cardiovascular Cardiovascular exam: Present: RRR, +S1, +S2. Absent: clicks, diastolic murmur, gallop, rubs, systolic murmur - GI/Abdominal GI/Abdominal exam: Present: normal bowel sounds, soft. Absent: distended, guarding, rebound, tenderness - Extremities Exam Extremities exam: Present: normal capillary refill. Absent: pedal edema - Psychiatric Psychiatric exam: Present: normal affect, normal mood Internal Medicine: Result - Labs CBC & Chem 7: 09/28/16 04:00 09/30/16 05:15 Labs: BMP 09/30/16 05:15 Sodium 142 Potassium 3.5 Chloride 98 Carbon Dioxide 34 H BUN 39 H Creatinine 0.92 Glucose 126 H Calcium 8.9 - ABG Interpretation ABG results: PT/INR, D-dimer PT 19.6 Seconds (9.4-12.1) H 09/30/16 05:15 - Impressions Impressions Chest X-Ray 09/29/16 07:00 IMPRESSION: Persistent left basilar opacity compatible with small left pleural effusion with associated atelectasis or infiltrate along with complete to near complete collapse of left lower lobe, similar to recent CT exam. Improved aeration to the right lung base with still trace right pleural effusion and associated mild right basilar atelectasis or infiltrate. D/ / 09/29/2016 09:17:37 Ryan Cadet MD / earnold Interpreting Provider: Ryan Cadet MD Consult Discharge Plan - Plan Referrals: Christoph Hughes DO [Primary Care Provider] - <Tadeo Tolbert - Last Filed: 09/30/16 11:42> - Constitutional Vitals: Temp Pulse Resp BP Pulse Ox 97.9 F 88 20 129/79 97 09/30/16 11:37 09/30/16 11:37 09/30/16 11:37 09/30/16 11:37 09/30/16 11:37 Internal Medicine: Result - Labs CBC & Chem 7: 09/28/16 04:00 09/30/16 05:15 Labs: BMP 09/30/16 05:15 Sodium 142 Potassium 3.5 Chloride 98 Carbon Dioxide 34 H BUN 39 H Creatinine 0.92 Glucose 126 H Calcium 8.9 - ABG Interpretation ABG results: PT/INR, D-dimer PT 19.6 Seconds (9.4-12.1) H 09/30/16 05:15 - Impressions Impressions Chest X-Ray 09/29/16 07:00 IMPRESSION: Persistent left basilar opacity compatible with small left pleural effusion with associated atelectasis or infiltrate along with complete to near complete collapse of left lower lobe, similar to recent CT exam. Improved aeration to the right lung base with still trace right pleural effusion and associated mild right basilar atelectasis or infiltrate. D/ / 09/29/2016 09:17:37 Ryan Cadet MD / earnold Interpreting Provider: Ryan Cadet MD - Attending Attestation Hypoxia due to Acute COPD exacerbation likely secondary to healthcare associated pneumonia present upon admission and influenza B, in combination with possible acute diastolic chf exacerbation COntinue Solumedrol 40 mg twice a day, continue meropenem day 5 and Tamiflu day 5 increase lasix to 40 mg TID Mild diffuse wheezing and crackles worse on the right I examined this patient and my medical decision-making was reviewed with the ACTIVITIES OFFICER/PA/Advanced Practice Nurse/Resident Physician. I agree with the documented findings, disposition and treatment plan as described except to the extent set forth below.
[2016-09-30] MEDS: *HR* Warfarin 5 MG TABLET PO SCH (17:38)
[2016-09-30] MEDS: Loratadine 10 MG TABLET PO SCH (21:14)
[2016-09-30] MEDS: Gabapentin 100 MG CAPSULE PO SCH (21:15)
[2016-10-01] MEDS: Ipratropium/Albuterol Neb 3 ML IH SCH ×7 (00:21→23:15)
[2016-10-01] MEDS: Acetylcysteine 10% 2 ML INHSOL IH SCH ×4 (04:25→19:33)
[2016-10-01] MEDS: Meropenem 1,000 MG in 0.9 % Sodium Chloride Mini Bag 100 ML IVPB SCH ×2 (05:20→17:03)
[2016-10-01 05:46] LABS: INR 1.9; Prothrombin Time 21.4 Seconds (9.4-12.1)
[2016-10-01] MEDS: Budesonide/Formoterol 160/4.5 MDI IH SCH ×2 (07:35→19:34)
[2016-10-01] MEDS: Nystatin SUSP 5 ML UD.LIQ PO SCH ×4 (08:02→21:17)
[2016-10-01] MEDS: MethylPREDNISolone 40 MG/ML VIAL IVP SCH ×2 (08:02→21:17)
[2016-10-01] MEDS: Furosemide 40 MG TABLET PO SCH ×3 (08:02→21:20)
[2016-10-01] MEDS: Metoprolol XL (24 HR) Succ 25 MG TAB.ER.24H PO SCH ×2 (08:02→21:20)
[2016-10-01] MEDS: DALIRESP 500 MCG PO SCH (08:03)
[2016-10-01] MEDS: Fluticasone Propionate Nasal 50 MCG/SPRAY BOTTLE NS SCH (08:04)
--- NOTE | 2016-10-01 08:31 | ECHO - Doppler Report ---
Echocardiogram Name: Yasmeen Dewitt Date of Study: 09/30/2016 Date: 1945 Ht: 62.0 in Medical Record#: [id number] Age: 71 Wt: 127.0 lb Gender: Female BSA: 1.58 Order #: [id number] Location: [facility] Room #: [id number] Reading Physician: Star Lees MD, [facility] Straightedge Man: Janneth Delaney RDCS Ordering Physician: Tadeo Tolbert MD Primary Physician: Christoph Hughes DO Indications: Congestive heart failure Impressions: Normal LV systolic function, LVEF 65-70%. Atypical septal motion consistent with prior cardiac surgery. Mild left ventricular diastolic dysfunction. Normal right ventricular size and function. Severely dilated left atrium. Mechanical mitral valve with normal function. Unable to estimate RVSP due to lack of TR jet. Left Ventricular Wall Motion: Rest Echo Findings All wall segments showed normal motion. Findings: Study Quality * Technically sub-optimal due to poor echocardiographic windows. ECG Findings * Normal sinus rhythm. Left Ventricle * Normal LV systolic function, LVEF 65-70%. * Atypical septal motion consistent with prior cardiac surgery. * Normal LV chamber size and wall thickness. * Mild left ventricular diastolic dysfunction. Right Ventricle * Normal right ventricular size and function. Left Atrium * Severely dilated left atrium. Right Atrium * Normal right atrial size. Aorta * Normally sized aortic root. Pericardium * There is a trivial pericardial effusion present. IVC * Normal IVC dimensions and inspiratory collapse. Aortic Valve * Aortic valve not well visualized. * No aortic stenosis. * No aortic regurgitation. Mitral Valve * Mechanical mitral valve with normal function. * No mitral stenosis. Trace mitral regurgitation. Tricuspid Valve * Tricuspid valve not well visualized. * No tricuspid stenosis. * Trace tricuspid regurgitation. * Unable to estimate RVSP due to lack of TR jet. Pulmonic Valve * Pulmonic valve not well visualized. * No pulmonic stenosis. * No pulmonic regurgitation. History Hypertension Family History of CAD History of CAD/PTCA Myocardial Infarction Congestive Heart Failure Valvular Disease Valve Replacement MV Prosthesis Mechanical 12/29/2014 a Previous Echo was performed. Measurements: BP: 117/ 74 2D Normal Values RVIDd: 2.76 cm IVSd: .72 cm 0.6 - 1.0 cm LVIDd: 3.51 cm 3.7 - 5.6 cm LVPWd: .79 cm 0.6 - 1.1 cm LVIDs: 2.02 cm 1.5 - 3.6 cm AO: 3.00 cm < 4.0 cm %FS: 42.50 cm >25 % LA volume: 80 Mitral Valve Peak Velocity 1.54 m/sec Peak Grad:9.00 mmHg Mean Grad:4.00 mmHg Peak E:1.14 m/sec Peak A:1.54 m/sec E/A Ratio:0.7 Updated by Star Lees MD, [facility] on 10/01/2016 8:25:02 AM electronically signed on 10/01/2016 8:25:32 AM with status of Final Wall Motion Hemphill: 1=Normal, 2=Hypokinesis, 3=Akinesis, 4=Dyskinesis, 5=Aneurysmal, 6=Hyperkinetic, X=Not Visualized (Blank)=Missing
--- NOTE | 2016-10-01 09:47 | Internal Med Progress Note ---
<Sylvia Almaguer - Last Filed: 10/01/16 09:44> Date of Encounter: 09/30/16 Time of Encounter: 09:45 - Assessment and plan (1) Acute exacerbation of chronic obstructive airways disease Current Visit: No Status: Chronic Assessment and plan: Acute exacerbation of COPD likely secondary to influenza B and healthcare associated oneumonia present on admission Treat with IV steroids (currently day 6), continue every 12 hours will plan on 12 day taper on discharge Continue duo-neb scheduled and albuterol PRN Continue 2L NC continuously Pulmonology consulted, recommend further follow up as outpatient for possible bronchoscopy. Have signed off. (2) HCAP (healthcare-associated pneumonia) Current Visit: No Status: Acute Assessment and plan: Present on admission. Patient hospitalized three times in past months. Admitted 08/26/16 for 2 days for COPD exacerbation, sent home on doxycycline. Transitioned from 2L NC at night to 2L NC continuously. Admitted 09/13/16 for 3 days for pneumonia, treated with zosyn. Discharged on augmentin. Clinically stable from yesterday. Sputum culture negative. Continue meropenem (day 6 of 7) Allergies to cephalosporins, fluoroquinolones, and vancomycin which limit outpatient treatment options Pulmonology consulted, appreciate input and expertise. Plan for possible outpatient bronchoscopy Continue his Acapella, Mucomyst, and chest physiotherapy. ITS Impressions Chest X-Ray 09/25/16 14:53 IMPRESSION: Right infrahilar and bibasilar airspace disease with a meniscus at the left costophrenic angle which could represent a trace effusion or pleural scar. These changes appear similar, and could represent persistent or recurrent pneumonia. D/ / Elmer Lopez MD / Elmer Lopez MD Interpreting Provider: Elmer Lopez MD (3) Influenza B Current Visit: Yes Status: Acute Assessment and plan: RIDP positive for Influenza B. Present on admission. Treated with tamiflu, has completed course of tamiflu Other treatment as per COPD and HCAP (4) Acute and chronic respiratory failure Current Visit: No Status: Acute Assessment and plan: Acute worsening of hypoxia likely secondary to underlying pneumonia and influenza B which were both present on admission in presence of underlying COPD Patient is on 2 L per nasal cannula at home, transitioned at prior visit from 2L NC at night Will continue to monitor and attempt to wean her back to her baseline of 2L NC to keep Sp02 > 88% Qualifiers: Respiratory failure complication: unspecified whether with hypoxia or hypercapnia Qualified Code(s): J96.20 - Acute and chronic respiratory failure , unspecified whether with hypoxia or hypercapnia (5) Hypertension Current Visit: No Status: Chronic Assessment and plan: Controlled, Continue home toprol and lasix Continue to monitor vitals Qualifiers: Hypertension type: essential hypertension Qualified Code(s): I10 - Essential (primary) hypertension (6) H/O mitral valve replacement with mechanical valve Current Visit: No Status: Chronic (7) Diastolic heart failure Current Visit: No Status: Chronic Assessment and plan: Will increase lasix from BID to TID, plan to decrease back to BID prior to discharge Moinitor electrolytes and kidney function Qualifiers: Heart failure chronicity: chronic Qualified Code(s): I50.32 - Chronic diastolic (congestive) heart failure (8) CKD (chronic kidney disease) stage 3, GFR 30-59 ml/min Current Visit: No Status: Chronic Assessment and plan: Stable and consistent with her baseline Continue to monitor Will recheck BMP given administration of extra lasix in morning (9) Pulmonary nodule Current Visit: No Status: Chronic Assessment and plan: Continue follow-up outpatient (10) Atrial fibrillation Current Visit: No Status: Chronic Assessment and plan: Rate controlled, on Coumadin Qualifiers: Atrial fibrillation type: chronic Qualified Code(s): I48.2 - Chronic atrial fibrillation - Subjective Interval history: Patient is seen and examined, she is sitting in chair resting comfortably. Patient admitted for shortness of breath secondary to COPD exacerbation and was found to be positive for influenza B. She has completed her course of tamiflu, she continues to be on merrepenem. Patient reports that she continues to feel slowly better. She continues to feel like she is making slow but steady progress on a daily basis. She remains able to walk to the bathroom with no increase in dyspnea. She is tolerating diet with no nausea or vomiting. She has no additional concerns or complaints today. - Constitutional Vitals: Temp Pulse Resp BP Pulse Ox 97.6 F 83 14 128/85 88 L 10/01/16 08:09 10/01/16 08:09 10/01/16 08:09 10/01/16 08:09 10/01/16 08:09 General appearance: Present: mild distress, A&O X 3, pleasant, answers questions appropriately - Head Head exam: Present: atraumatic, normocephalic - Eye Eye exam: Present: normal appearance. Absent: conjunctival injection - ENT ENT exam: Present: mucous membranes moist, normal external ear exam Additional comments: nasal canula in place - Neck Neck exam general surgery: Present: supple, trachea midline - Respiratory Respiratory exam: Present: decreased breath sounds (right lower lobe), prolonged expiratory phase, rhonchi (bilaterally ), wheezes (end expiratory bilaterally ). Absent: accessory muscle use, rales, respiratory distress, stridor - Cardiovascular Cardiovascular exam: Present: RRR, +S1, +S2. Absent: clicks, diastolic murmur, gallop, rubs, systolic murmur - GI/Abdominal GI/Abdominal exam: Present: normal bowel sounds, soft. Absent: distended, guarding, rebound, tenderness - Extremities Exam Extremities exam: Present: normal capillary refill. Absent: pedal edema - Psychiatric Psychiatric exam: Present: normal affect, normal mood Internal Medicine: Result - Labs CBC & Chem 7: 09/28/16 04:00 09/30/16 05:15 - ABG Interpretation ABG results: PT/INR, D-dimer PT 21.4 Seconds (9.4-12.1) H 10/01/16 05:20 Consult Discharge Plan - Plan Referrals: Christoph Hughes DO [Primary Care Provider] - <Tadeo Tolbert H - Last Filed: 10/01/16 11:07> Date of Encounter: 09/30/16 - Constitutional Vitals: Temp Pulse Resp BP Pulse Ox 97.6 F 83 14 128/85 88 L 10/01/16 08:09 10/01/16 08:09 10/01/16 08:09 10/01/16 08:09 10/01/16 08:09 Internal Medicine: Result - Labs CBC & Chem 7: 09/28/16 04:00 09/30/16 05:15 - ABG Interpretation ABG results: PT/INR, D-dimer PT 21.4 Seconds (9.4-12.1) H 10/01/16 05:20 - Attending Attestation Hypoxia due to Acute COPD exacerbation likely secondary to healthcare associated pneumonia present upon admission and influenza B, in combination with possible acute diastolic chf exacerbation COntinue Solumedrol 40 mg twice a day, continue meropenem day 6 and completed Tamiflu increased lasix to 40 mg TID Mild diffuse wheezing and crackles worse on the right I examined this patient and my medical decision-making was reviewed with the STOCK PARTS INSPECTOR/PA/Advanced Practice Nurse/Resident Physician. I agree with the documented findings, disposition and treatment plan as described except to the extent set forth below.
[2016-10-01] MEDS: traMADol 50 MG TABLET PO PRN ×2 (11:22→21:18)
[2016-10-01] MEDS: *HR* Warfarin 5 MG TABLET PO SCH (16:01)
[2016-10-01] MEDS: Gabapentin 100 MG CAPSULE PO SCH (21:19)
[2016-10-01] MEDS: Loratadine 10 MG TABLET PO SCH (21:20)
[2016-10-02 03:10] LABS: Hemoglobin 13.3 g/dL (11.5-15.4); Mean Corpuscular HGB Conc 31.7 g/dL (31.6-35.5); Mean Corpuscular Hemoglobin 27.7 pg (28.0-33.3); Mean Corpuscular Volume 87.5 fL (83.0-100.0); Mean Platelet Volume 10.3 fL (9.4-12.4); Platelet Count 199 K/mcL (140-400); Red Cell Distribution Width 17.4 % (11.5-14.5)
[2016-10-02 03:29] LABS: Prothrombin Time 22.4 Seconds (9.4-12.1)
[2016-10-02] MEDS: Acetylcysteine 10% 2 ML INHSOL IH SCH ×4 (04:03→20:14)
[2016-10-02] MEDS: Ipratropium/Albuterol Neb 3 ML IH SCH ×6 (04:03→23:28)
[2016-10-02 04:19] LABS: Calcium 8.7 mg/dL (8.6-10.8); Potassium 3.7 mEq/L (3.5-4.5)
[2016-10-02] MEDS: Meropenem 1,000 MG in 0.9 % Sodium Chloride Mini Bag 100 ML IVPB SCH ×2 (06:05→18:18)
[2016-10-02] MEDS: Budesonide/Formoterol 160/4.5 MDI IH SCH ×2 (07:57→20:14)
[2016-10-02] MEDS: Metoprolol XL (24 HR) Succ 25 MG TAB.ER.24H PO SCH ×2 (08:31→20:49)
[2016-10-02] MEDS: MethylPREDNISolone 40 MG/ML VIAL IVP SCH (08:31)
[2016-10-02] MEDS: Nystatin SUSP 5 ML UD.LIQ PO SCH ×4 (08:31→20:40)
[2016-10-02] MEDS: Furosemide 40 MG TABLET PO SCH ×2 (08:31→20:40)
[2016-10-02] MEDS: Fluticasone Propionate Nasal 50 MCG/SPRAY BOTTLE NS SCH (08:32)
[2016-10-02] MEDS: DALIRESP 500 MCG PO SCH (08:32)
--- NOTE | 2016-10-02 08:51 | Internal Med Progress Note ---
Date of Encounter: 10/02/16 Time of Encounter: 08:49 - Assessment and plan (1) Acute and chronic respiratory failure Current Visit: No Status: Acute Assessment and plan: Acute worsening of hypoxia secondary to Acute COPD exacerbation secondary to healthcare associated pneumonia present on admission and influenza B in combination with acute diastolic CHF exacerbation Patient is on 2 L per nasal cannula at home, transitioned at prior visit from 2L NC at night Improving Initial increasing supplemental oxygen requirements, currently back to baseline of 2L NC Qualifiers: Respiratory failure complication: hypoxia Qualified Code(s): J96.21 - Acute and chronic respiratory failure with hypoxia (2) Acute exacerbation of chronic obstructive airways disease Current Visit: No Status: Chronic Assessment and plan: Acute exacerbation of COPD likely secondary to influenza B and healthcare associated oneumonia present on admission Treat with IV steroids (currently day 7), continue every 12 hours will plan on 12 day taper on discharge Continue duo-neb scheduled and albuterol PRN Continue 2L NC continuously Pulmonology consulted, recommend further follow up as outpatient for possible bronchoscopy. Have signed off. (3) HCAP (healthcare-associated pneumonia) Current Visit: No Status: Acute Assessment and plan: Present on admission. Patient hospitalized three times in past months. Admitted 08/26/16 for 2 days for COPD exacerbation, sent home on doxycycline. Transitioned from 2L NC at night to 2L NC continuously. Admitted 09/13/16 for 3 days for pneumonia, treated with zosyn. Discharged on augmentin. Sputum culture negative. Continue meropenem (day 7) Allergies to cephalosporins, fluoroquinolones, and vancomycin which limit outpatient treatment options Pulmonology consulted, appreciate input and expertise. Plan for possible outpatient bronchoscopy Continue his Acapella, Mucomyst, and chest physiotherapy. (4) Influenza B Current Visit: Yes Status: Acute Assessment and plan: RIDP positive for Influenza B. Present on admission. Treated with tamiflu, has completed course of tamiflu Other treatment as per COPD and HCAP (5) Diastolic heart failure Current Visit: No Status: Chronic Assessment and plan: Possible component of acute exacerbation of chronic diastolic heart failure Monitor electrolytes and kidney function Qualifiers: Heart failure chronicity: acute on chronic Qualified Code(s): I50.33 - Acute on chronic diastolic (congestive) heart failure (6) Hypertension Current Visit: No Status: Chronic Qualifiers: Hypertension type: essential hypertension Qualified Code(s): I10 - Essential (primary) hypertension (7) H/O mitral valve replacement with mechanical valve Current Visit: No Status: Chronic (8) CKD (chronic kidney disease) stage 3, GFR 30-59 ml/min Current Visit: No Status: Chronic (9) Pulmonary nodule Current Visit: No Status: Chronic (10) Atrial fibrillation Current Visit: No Status: Chronic Qualifiers: Atrial fibrillation type: chronic Qualified Code(s): I48.2 - Chronic atrial fibrillation - Subjective Interval history: Patient is seen and examined, she is sitting in chair resting comfortably. Patient admitted for shortness of breath secondary to COPD exacerbation and was found to be positive for influenza B. She has completed her course of tamiflu, she continues to be on merrepenem. Patient reports that she continues to feel slowly better. She continues to feel like she is making slow but steady progress on a daily basis. She reports that she is able to walk farther before becoming short of breath. She feels as if she is approximately 75% of the way back to her baseline, she states she feels as if she may be ready to go home today. She is tolerating diet with no nausea or vomiting. She has no additional concerns or complaints today. - Constitutional Vitals: Temp Pulse Resp BP Pulse Ox 97.8 F 69 17 115/82 94 L 10/02/16 07:59 10/02/16 07:59 10/02/16 07:59 10/02/16 07:59 10/02/16 07:59 General appearance: Present: mild distress, A&O X 3, pleasant, answers questions appropriately - Head Head exam: Present: atraumatic, normocephalic - Eye Eye exam: Present: normal appearance. Absent: conjunctival injection - ENT ENT exam: Present: mucous membranes moist, normal external ear exam Additional comments: nasal canula in place - Neck Neck exam general surgery: Present: supple, trachea midline - Respiratory Respiratory exam: Present: prolonged expiratory phase, rhonchi (bilaterally), wheezes (scattered bilaterally ). Absent: rales, stridor - Cardiovascular Cardiovascular exam: Present: RRR, +S1, +S2. Absent: clicks, diastolic murmur, gallop, rubs, systolic murmur - GI/Abdominal GI/Abdominal exam: Present: normal bowel sounds, soft. Absent: distended, guarding, rebound, tenderness - Extremities Exam Extremities exam: Present: normal capillary refill. Absent: pedal edema Internal Medicine: Result - Labs CBC & Chem 7: 10/02/16 03:00 10/02/16 03:00 Labs: Short CBC 10/02/16 Range/Units 03:00 WBC 12.5 H D (4.3-11.1) K/mcL Hgb 13.3 (11.5-15.4) g/dL Hct 42.0 (35.3-44.9) % Plt Count 199 (140-400) K/mcL BMP 10/02/16 03:00 Sodium 142 Potassium 3.7 Chloride 95 L Carbon Dioxide 38 H BUN 47 H Creatinine 1.26 H Glucose 145 H Calcium 8.7 - ABG Interpretation ABG results: PT/INR, D-dimer PT 22.4 Seconds (9.4-12.1) H 10/02/16 03:00 Consult Discharge Plan - Plan Referrals: Christoph Hughes DO [Primary Care Provider] - 10/07/16 10:15 am
--- NOTE | 2016-10-02 10:14 | Internal Med Progress Note ---
<Sylvia Almaguer - Last Filed: 10/02/16 10:11> Date of Encounter: 10/02/16 Time of Encounter: 10:11 - Assessment and plan (1) Acute and chronic respiratory failure Current Visit: No Status: Acute Assessment and plan: Acute worsening of hypoxia secondary to acute exacerbation of COPD due to health care associated pneumonia and Influenza B with possible acute exacerbation of chronic diastolic heart failure. Patient was previously on 2L NC at night and at prio admission was transitioned to 2L NC continuously Improved currently Initially required > 2L NC to maintain O2 saturations, she is currently back down to her baseline of 2L NC continuously Qualifiers: Respiratory failure complication: hypoxia Qualified Code(s): J96.21 - Acute and chronic respiratory failure with hypoxia (2) Acute exacerbation of chronic obstructive airways disease Current Visit: No Status: Chronic Assessment and plan: Acute exacerbation of COPD secondary to healthcare associated pneumonia present on admission and influenza B treat with IV steroids (day 7) q 12 hours, will plan on prolonged taper outpatient COntinue duo-neb scheduled and albuterol prn Pulmonology consulted, recommend further follow up as outpatient for possible bronchoscopy. Have signed off. Continue 2L NC continuously (3) Diastolic heart failure Current Visit: No Status: Chronic Assessment and plan: Component of acute exacerbation on admission Continue lasix TID Will transition to oral lasix on discharge Continue to monitor I/O's Qualifiers: Heart failure chronicity: acute on chronic Qualified Code(s): I50.33 - Acute on chronic diastolic (congestive) heart failure (4) HCAP (healthcare-associated pneumonia) Current Visit: No Status: Acute Assessment and plan: present on admission Patient hospitalized three times in past 3 months. Admitted 08/26/16 for 2 days for COPD exacerbation, sent home on doxycycline. Transitioned from 2L NC at night to 2L NC continously. Admitted 09/13/16 for 3 days for pneumonia, treated with zosyn and discharged on augmentin. Clinically stable and continues to improve Sputum culture negative Finished dose of meropenem (day 7) Allergies to cephalosporins, fluroquinolones and vancomycine which limit options for treatment outpatient Pulmonology consulted, appreciate input and expertise. Recommend outpateint follow up with possible bronchoscopy. continue acapella, mucomyst and chest physiotherapy. (5) Influenza B Current Visit: Yes Status: Acute Assessment and plan: RIDP positive for influenza B, present on admission Patient had completed course of tamiflu while in hospital Other treatment as detailed in COPD and HCAP (6) Hypertension Current Visit: No Status: Chronic Assessment and plan: Controlled, Continue home toprol Continue to monitor vitals Qualifiers: Hypertension type: essential hypertension Qualified Code(s): I10 - Essential (primary) hypertension (7) H/O mitral valve replacement with mechanical valve Current Visit: No Status: Chronic (8) CKD (chronic kidney disease) stage 3, GFR 30-59 ml/min Current Visit: No Status: Chronic Assessment and plan: Stable and consistent with her baseline BUN and creatinine increased today form yesterday to 47 and 1.28, likely secondary to administration of lasix Will continue to monitor BMP (9) Pulmonary nodule Current Visit: No Status: Chronic Assessment and plan: Continue follow-up outpatient (10) Atrial fibrillation Current Visit: No Status: Chronic Assessment and plan: Rate controlled, on Coumadin Qualifiers: Atrial fibrillation type: chronic Qualified Code(s): I48.2 - Chronic atrial fibrillation - Subjective Interval history: Patient seend and examined, she is resting comfortably in bed. Patient admitted for shortness of breath secondaryto COPD exacerbation and was found to be positive for influenza B. She has completed her course of tamiflu and merrepenem. Patient today reports she continues to slowly feel better day by day. She is able to walk farther around the room without becoming short of breath. She feels as if she is approximately 76% back to her normal baseline function. She is tolerating diet with no nausea or vomiting. She has no additional concerns or complaints at this time. - Constitutional Vitals: Temp Pulse Resp BP Pulse Ox 97.8 F 69 17 115/82 94 L 10/02/16 07:59 10/02/16 07:59 10/02/16 07:59 10/02/16 07:59 10/02/16 07:59 General appearance: Present: mild distress, A&O X 3, pleasant, answers questions appropriately - Head Head exam: Present: atraumatic, normocephalic - Eye Eye exam: Present: normal appearance. Absent: conjunctival injection - ENT ENT exam: Present: mucous membranes moist, normal external ear exam Additional comments: nasal canula in place - Neck Neck exam general surgery: Present: supple, trachea midline - Respiratory Respiratory exam: Present: prolonged expiratory phase, rhonchi (bilaterally ), wheezes (scattered end expiratory bilaterally R>L ). Absent: rales, stridor - Cardiovascular Cardiovascular exam: Present: RRR, +S1, +S2. Absent: clicks, diastolic murmur, gallop, rubs, systolic murmur - GI/Abdominal GI/Abdominal exam: Present: normal bowel sounds, soft. Absent: distended, guarding, rebound, tenderness - Extremities Exam Extremities exam: Present: normal capillary refill. Absent: pedal edema - Psychiatric Psychiatric exam: Present: normal affect, normal mood Internal Medicine: Result - Labs CBC & Chem 7: 10/02/16 03:00 10/02/16 03:00 Labs: Short CBC 10/02/16 Range/Units 03:00 WBC 12.5 H D (4.3-11.1) K/mcL Hgb 13.3 (11.5-15.4) g/dL Hct 42.0 (35.3-44.9) % Plt Count 199 (140-400) K/mcL BMP 10/02/16 03:00 Sodium 142 Potassium 3.7 Chloride 95 L Carbon Dioxide 38 H BUN 47 H Creatinine 1.26 H Glucose 145 H Calcium 8.7 - ABG Interpretation ABG results: PT/INR, D-dimer PT 22.4 Seconds (9.4-12.1) H 10/02/16 03:00 Consult Discharge Plan - Plan Referrals: Christoph Hughes DO [Primary Care Provider] - 10/07/16 10:15 am <Tadeo Tolbert H - Last Filed: 10/02/16 10:53> Date of Encounter: 10/02/16 - Constitutional Vitals: Temp Pulse Resp BP Pulse Ox 97.8 F 69 17 115/82 94 L 10/02/16 07:59 10/02/16 07:59 10/02/16 07:59 10/02/16 07:59 10/02/16 07:59 Internal Medicine: Result - Labs CBC & Chem 7: 10/02/16 03:00 10/02/16 03:00 Labs: Short CBC 10/02/16 Range/Units 03:00 WBC 12.5 H D (4.3-11.1) K/mcL Hgb 13.3 (11.5-15.4) g/dL Hct 42.0 (35.3-44.9) % Plt Count 199 (140-400) K/mcL BMP 10/02/16 03:00 Sodium 142 Potassium 3.7 Chloride 95 L Carbon Dioxide 38 H BUN 47 H Creatinine 1.26 H Glucose 145 H Calcium 8.7 - ABG Interpretation ABG results: PT/INR, D-dimer PT 22.4 Seconds (9.4-12.1) H 10/02/16 03:00 - Attending Attestation decrease lasix to BID, continue solumedrol. COmplete last doses of merrem today , completed tamiflu. May discharge in the morning if stable I examined this patient and my medical decision-making was reviewed with the FLOOR LAYER HELPER/PA/Advanced Practice Nurse/Resident Physician. I agree with the documented findings, disposition and treatment plan as described except to the extent set forth below.
[2016-10-02] MEDS: *HR* Warfarin 5 MG TABLET PO SCH (18:18)
[2016-10-02] MEDS: traMADol 50 MG TABLET PO PRN (20:00)
[2016-10-02] MEDS: Gabapentin 100 MG CAPSULE PO SCH (20:39)
[2016-10-02] MEDS: Loratadine 10 MG TABLET PO SCH (20:39)
[2016-10-03] MEDS: Ipratropium/Albuterol Neb 3 ML IH SCH ×2 (04:25→07:16)
[2016-10-03] MEDS: Acetylcysteine 10% 2 ML INHSOL IH SCH (04:25)
[2016-10-03 04:53] LABS: Hematocrit 42.6 % (35.3-44.9); Mean Corpuscular HGB Conc 30.5 g/dL (31.6-35.5); Mean Corpuscular Hemoglobin 27.1 pg (28.0-33.3); Mean Corpuscular Volume 88.8 fL (83.0-100.0); Mean Platelet Volume 10.9 fL (9.4-12.4); Platelet Count 193 K/mcL (140-400); Red Cell Distribution Width 17.2 % (11.5-14.5)
[2016-10-03 04:57] LABS: INR 2.2; Prothrombin Time 24.3 Seconds (9.4-12.1)
[2016-10-03 05:17] LABS: BUN/Creatinine Ratio 52 (6-26); Blood Urea Nitrogen 47 mg/dL (7-20); Calcium 8.8 mg/dL (8.6-10.8); Carbon Dioxide 39 mEq/L (19-29); Chloride 95 mEq/L (98-109); Glucose 80 mg/dL (70-99); Osmolality,Calculated 307 (280-300); Potassium 3.5 mEq/L (3.5-4.5); Sodium 143 mEq/L (136-145); eGFR For African Americans > 60 (> 60); eGFR For Non-African Americans > 60 (> 60)
[2016-10-03] MEDS ORDERED: Nystatin POWDER 30 GM BOTTLE TP SCH (05:30)
[2016-10-03] MEDS: Meropenem 1,000 MG in 0.9 % Sodium Chloride Mini Bag 100 ML IVPB SCH (06:29)
[2016-10-03] MEDS: Budesonide/Formoterol 160/4.5 MDI IH SCH (07:21)
[2016-10-03 08:03] VITALS: BP 111/80
--- NOTE | 2016-10-03 08:15 | Discharge Summary ---
Date of Encounter: 10/03/16 Time of Encounter: 08:13 - Discharge Diagnosis (1) Acute and chronic respiratory failure Priority: Primary Status: Acute Comments: Acute on chronic hypoxic respiratory failure secondary to acute COPD exacerbation due to health care associated pneumonia present upon admission / gram negative pneumonia and Influenza B in conbination with acute exacerbation of chronic diastolic heart failure. Qualifiers: Respiratory failure complication: hypoxia Qualified Code(s): J96.21 - Acute and chronic respiratory failure with hypoxia (2) Pneumonia Priority: Primary Status: Acute Qualifiers: Pneumonia type: due to unspecified organism Laterality: right Lung location: lower lobe of lung Qualified Code(s): J18.9 - Pneumonia, unspecified organism (3) Diastolic heart failure Priority: Primary Status: Chronic Qualifiers: Heart failure chronicity: acute on chronic Qualified Code(s): I50.33 - Acute on chronic diastolic (congestive) heart failure (4) Acute exacerbation of chronic obstructive pulmonary disease (COPD) Priority: Primary Status: Acute (5) CKD (chronic kidney disease) stage 3, GFR 30-59 ml/min Priority: Secondary Status: Chronic (6) HCAP (healthcare-associated pneumonia) Priority: Primary Status: Acute (7) Atrial fibrillation Priority: Secondary Status: Chronic Qualifiers: Atrial fibrillation type: chronic Qualified Code(s): I48.2 - Chronic atrial fibrillation (8) Influenza B Priority: Primary Status: Acute - Discharge Medications Prescriptions: Esomeprazole Magnesium [Nexium] 40 mg PO DAILY #30 capsule.dr Furosemide [Lasix] 40 mg PO BID #60 tablet Potassium Chloride [K-Tab ER] 20 meq PO DAILY #30 tablet.er PredniSONE 10 mg PO DAILY 20 Days Home Medications: Albuterol Sulfate [Albuterol Inhaler] 1 - 2 puff IH Q4HR PRN 11/24/15 [History] Allopurinol [Zyloprim 100 MG] 100 mg PO DAILY 11/24/15 [History] Budesonide/Formoterol 160/4.5 [Symbicort 160/4.5] 2 puff IH BIDR 11/24/15 [ History] Calcium Carbonate [Calcium] 500 mg PO BID 11/24/15 [History] Cholecalciferol (D-3) [Vitamin D] 2,000 unit PO DAILY 11/24/15 [History] Fluticasone Propionate Nasal [Flonase] 50 mcg NS DAILY 11/24/15 [History] Folic Acid 1 mg PO DAILY 11/24/15 [History] Gabapentin [Neurontin] 200 mg PO HS 11/24/15 [History] Loratadine [Claritin] 10 mg PO DAILY 11/24/15 [History] Metoprolol XL (24 HR) Succ [Toprol Xl] 12.5 mg PO BID 11/24/15 [History] Montelukast [Singulair] 10 mg PO DAILY 11/24/15 [History] Nitroglycerin [Nitrostat] 0.4 mg SL Q5M PRN 11/24/15 [History] Nortriptyline [Pamelor] 10 mg PO HS 11/24/15 [History] Roflumilast [Daliresp] 500 mcg PO DAILY 11/24/15 [History] Vitamin B Complex [B Complex] 1 tab PO DAILY 11/24/15 [History] Umeclidinium [place] [Incruse Ellipta] 1 puff IH DAILY 12/17/15 [History] Atorvastatin [Lipitor] 10 mg PO HS 01/01/16 [History] Docusate Sodium [Dok] 300 mg PO BID 01/01/16 [History] Albuterol Neb [Proventil Neb] 2.5 mg IH Q4HR PRN 08/25/16 [History] Bifidobacterium Infantis [Align] 4 mg PO DAILY 08/25/16 [History] Oxygen 2 l IN CONT #1 each 08/26/16 [Rx] Tramadol HCl 50 - 100 mg PO QID PRN 09/13/16 [History] Warfarin [Coumadin] 5 mg PO TUWE 09/13/16 [History] Warfarin [Coumadin] 7.5 mg PO SUMOTHFR09/25/16 [History] Esomeprazole Magnesium [Nexium] 40 mg PO DAILY #30 capsule. 10/03/16 [Rx] Furosemide [Lasix] 40 mg PO BID #60 tablet 10/03/16 [Rx] Potassium Chloride [K-Tab ER] 20 meq PO DAILY #30 tablet.er 10/03/16 [Rx] PredniSONE 10 mg PO DAILY 20 Days 10/03/16 [Rx] Allergies/Adverse Reactions: Allergies ceftriaxone [From Rocephin] Allergy (Severe, Verified 08/25/16 08:19) Hives ciprofloxacin [From Cipro HC] Allergy (Severe, Verified 08/25/16 08:19) Hives levofloxacin [From Levaquin] Allergy (Severe, Verified 08/25/16 08:19) Hives vancomycin Allergy (Severe, Verified 08/25/16 08:19) Rash hydrocortisone [From Cipro HC] Allergy (Intermediate, Verified 08/25/16 08:19) Hives Procedures/tests Complete & Pending: Procedures Performed prior 72 hours Category Date Time Status EV echocardiogram Routine Y 09/30/16 11:39 Completed Date of admission: 09/26/16 05:04 Primary care physician: Christoph Hughes Consults: 09/26/16 12:01 Consult to Pulmonology [CONS] Routine Consulting Provider: [facility] Reason for Consult: 3rd admission for pna this month. increased 02 need Time Notified: 12:02 Call Completed: Yes 09/29/16 11:13 Consult to Respiratory Therapy [CONS] Routine Reason for Consult: BEDSIDE PAP THERAPY 4X DAILY Call Completed: Yes - Patient Status Disposition: Home Health Service Condition: Fair Overall status at discharge: patient is progressing back to baseline - Discharge Instructions Follow Up With: Christoph Hughes DO [Primary Care Provider] - 10/07/16 10:15 am Additional Instructions: Follow with primary care physician within the next 7 days. Continue prednisone taper. Continue Lasix and decrease fluid intake. Continue oxygen therapy and follow up with pulmonary service within the next 4-6 weeks. - Diet and Activity Activity: increase activity as tolerated, wear oxygen at all times Diet: low fat, low cholesterol Hospital course: Ms. Dewitt is a 71 year old female with a past medical history of mechanical mitral valve, Afib, diastolic CHF,CABG x3, poorly controlled COPD oxygen dependent. Pt c/o worsening dyspnea, cough with yellow-white sputum, wheezing above her baseline COPD symptoms. Pt is on home O2 at 2L, recently had to increase the amount of O2 to 4 L. Pt stated she was recently hospitalized for pneumonia less then two weeks prior to this new admission and has not been back to her baseline since. Stated she used her daily inhalers as prescribed by Dr. Siddiqi who she sees for pulmonary, and they were not as helpful as previously. Patient hospitalized three times in past 3 months. Admitted 08/26/16 for 2 days for COPD exacerbation, sent home on doxycycline. Transitioned from 2L NC at night to 2L NC continously. Admitted on 09/13/16 for 3 days for pneumonia, treated with zosyn and discharged on augmentin. CT scan of the chest showed dense mucus plugging in the left lower lobe, persistent right lower lobe pneumonia, severe emphysema and 2 stable pulmonary nodules with mild mid mediastinal lymphadenopathy. The patient tested positive for influenza B and was started on Tamiflu, she completed 5 days. She was continued on Merrem and completed 7 days. Sputum culture negative Finished dose of meropenem (day 7) Echocardiogram showed an ejection fraction of 65-70% with atypical septal motion is severely dilated left atrium, mechanical mitral valve with normal function Solu-Medrol and Lasix were continued. Warfarin was continued. - Time Spent with Patient Total time spent providing and/or coordinating discharge services: Greater than 30 minutes (40 min) - Constitutional Vitals: Temp Pulse Resp BP Pulse Ox 97.8 F 86 16 111/80 90 10/03/16 08:02 10/03/16 08:02 10/03/16 08:02 10/03/16 08:02 10/03/16 08:02 General appearance: Present: mild distress, A&O X 3, pleasant, answers questions appropriately - Head Head exam: Present: atraumatic, normocephalic - Eye Eye exam: Present: PERRL, conjuntiva pink, sclera anicteric Pupils: Present: PERRL - Neck Neck exam general surgery: Present: supple, trachea midline. Absent: lymphadenopathy - Respiratory Respiratory exam: Present: CTAB, rales (Minimal bibasilar fine crackles). Absent: accessory muscle use, rhonchi, wheezes - Cardiovascular Cardiovascular exam: Present: RRR, +S1, +S2. Absent: diastolic murmur, gallop, rubs, systolic murmur - GI/Abdominal GI/Abdominal exam: Present: normal bowel sounds, soft, no peritoneal signs. Absent: distended, tenderness - Extremities Exam Extremities exam: Present: warm, radial pulses palpable and symetrical. Absent : calf tenderness, cyanotic, pedal edema - Neurological Exam Neurological exam: Present: CN II-XII intact, oriented X3, no focal deficits. Absent: pronater drift, facial droop, speech deficit - Skin Skin exam: Present: dry, intact
[2016-10-03] MEDS: Furosemide 40 MG TABLET PO SCH (08:30)
[2016-10-03] MEDS: Metoprolol XL (24 HR) Succ 25 MG TAB.ER.24H PO SCH (08:30)
[2016-10-03] MEDS: DALIRESP 500 MCG PO SCH (08:31)
[2016-10-03] MEDS: Nystatin SUSP 5 ML UD.LIQ PO SCH (08:31)
[2016-10-03] MEDS: Fluticasone Propionate Nasal 50 MCG/SPRAY BOTTLE NS SCH (08:31)
--- NOTE | 2016-10-03 08:35 | Physician Discharge Referral ---
Home Health/Hosp Referral Info Transfer to: Home Health Provider in Charge Post Discharge: PCP - Diagnosis (1) Acute and chronic respiratory failure Status: Acute (2) Pneumonia Status: Acute (3) Diastolic heart failure Status: Chronic (4) Acute exacerbation of chronic obstructive pulmonary disease (COPD) Status: Acute (5) CKD (chronic kidney disease) stage 3, GFR 30-59 ml/min Status: Chronic (6) HCAP (healthcare-associated pneumonia) Status: Acute (7) Atrial fibrillation Status: Chronic (8) Influenza B Status: Acute - Respiratory Orders Oxygen / L per min (2 L) Smoking Cessation: Smoking cessation has been advised. For more information, call the [place] Tobacco Quit Line at 6-792-LKXZ-NOW. - Diet/Nutrition Diet/Nutrition Orders: No Added Salt (CHATO) - Services Needed Following services are medically necessary services: Physical Therapy Home Care Orders: Follow with primary care physician within the next 7 days. Continue prednisone taper. Continue Lasix and decrease fluid intake. Continue oxygen therapy and follow up with pulmonary service within the next 4-6 weeks. - Transfer Medications Prescriptions: Esomeprazole Magnesium [Nexium] 40 mg PO DAILY #30 capsule. Furosemide [Lasix] 40 mg PO BID #60 tablet Potassium Chloride [K-Tab ER] 20 meq PO DAILY #30 tablet.er PredniSONE 10 mg PO DAILY 20 Days Home Medications: Albuterol Sulfate [Albuterol Inhaler] 1 - 2 puff IH Q4HR PRN 11/24/15 [History] Allopurinol [Zyloprim 100 MG] 100 mg PO DAILY 11/24/15 [History] Budesonide/Formoterol 160/4.5 [Symbicort 160/4.5] 2 puff IH BIDR 11/24/15 [ History] Calcium Carbonate [Calcium] 500 mg PO BID 11/24/15 [History] Cholecalciferol (D-3) [Vitamin D] 2,000 unit PO DAILY 11/24/15 [History] Fluticasone Propionate Nasal [Flonase] 50 mcg NS DAILY 11/24/15 [History] Folic Acid 1 mg PO DAILY 11/24/15 [History] Gabapentin [Neurontin] 200 mg PO HS 11/24/15 [History] Loratadine [Claritin] 10 mg PO DAILY 11/24/15 [History] Metoprolol XL (24 HR) Succ [Toprol Xl] 12.5 mg PO BID 11/24/15 [History] Montelukast [Singulair] 10 mg PO DAILY 11/24/15 [History] Nitroglycerin [Nitrostat] 0.4 mg SL Q5M PRN 11/24/15 [History] Nortriptyline [Pamelor] 10 mg PO HS 11/24/15 [History] Roflumilast [Daliresp] 500 mcg PO DAILY 11/24/15 [History] Vitamin B Complex [B Complex] 1 tab PO DAILY 11/24/15 [History] Umeclidinium [place] [Incruse Ellipta] 1 puff IH DAILY 12/17/15 [History] Atorvastatin [Lipitor] 10 mg PO HS 01/01/16 [History] Docusate Sodium [Dok] 300 mg PO BID 01/01/16 [History] Albuterol Neb [Proventil Neb] 2.5 mg IH Q4HR PRN 08/25/16 [History] Bifidobacterium Infantis [Align] 4 mg PO DAILY 08/25/16 [History] Oxygen 2 l IN CONT #1 each 08/26/16 [Rx] Tramadol HCl 50 - 100 mg PO QID PRN 09/13/16 [History] Warfarin [Coumadin] 5 mg PO TUWE 09/13/16 [History] Warfarin [Coumadin] 7.5 mg PO SUMOTHFRSA 09/25/16 [History] Esomeprazole Magnesium [Nexium] 40 mg PO DAILY #30 capsule. 10/03/16 [Rx] Furosemide [Lasix] 40 mg PO BID #60 tablet 10/03/16 [Rx] Potassium Chloride [K-Tab ER] 20 meq PO DAILY #30 tablet.er 10/03/16 [Rx] PredniSONE 10 mg PO DAILY 20 Days 10/03/16 [Rx] Allergies/Adverse Reactions: Allergies ceftriaxone [From Rocephin] Allergy (Severe, Verified 08/25/16 08:19) Hives ciprofloxacin [From Cipro HC] Allergy (Severe, Verified 08/25/16 08:19) Hives levofloxacin [From Levaquin] Allergy (Severe, Verified 08/25/16 08:19) Hives vancomycin Allergy (Severe, Verified 08/25/16 08:19) Rash hydrocortisone [From Cipro HC] Allergy (Intermediate, Verified 08/25/16 08:19) Hives Certification: Further, I certify that my clinical findings support that this patient is homebound (i.e. absences from home require considerable and taxing effort and are for medical reasons or christianity services or infrequently or short duration when for other reasons) because: Homebound Reason: Patient requires assistance of a person or device to safely leave home Attestation: My signature below is to certify that this patient is under my care and that I, or nurse practitioner, or a physician's legal administrative assistant working with me, has a face-to -face encounter with this patient.
[2016-10-03] MEDS: traMADol 50 MG TABLET PO PRN (08:40)
[2016-10-03] MEDS ORDERED: MethylPREDNISolone 40 MG/ML VIAL IVP SCH (09:00)
== END 2016-10-03 11:11 | disposition home health service (06) | DRG 177 ==
LOC: EMEROO 14:30 → 3BNU 14:30 → SUATTDRO 09-26 05:04
PROVIDERS: ADMIT Nurse Practitioner Family; ATTEND Internal Medicine

== ENCOUNTER 2016-10-08 11:52 | Inpatient (IN) ==
--- NOTE | 2016-10-08 12:06 | Emergency Department Note ---
Disposition Clinical Impression: COPD exacerbation, Hypoxemia, Hospital-acquired pneumonia Disposition: Admitted As Inpatient Condition: Fair SOB HPI - General Chief Complaint: ED Shortness of Breath/Dyspnea Stated Complaint: SOB Time Seen by Provider: 10/08/16 12:03 Source: patient, family Limitations: no limitations - History of Present Illness Presents with shortness of breath which is severe and she does have a history of emphysema as well as coronary artery disease and she was admitted for 9 days and discharged 4 days ago. The patient states that she is short of breath with exertion but also now short of breath at rest and is worsened at home this morning. Is here with her . Postoperative cough productive of yellow sputum. No hemoptysis. Does have rhinorrhea. No sneezing. No fever or blurred vision. No chest pain. No blood in the urine or stool, pain or swelling or numbness of extremities. No skin rash or bruising of the skin. Social history: Stopped smoking 25 years ago. She does use home oxygen - Related Data Home Medications Medication Instructions Recorded Confirmed Albuterol Sulfate [Albuterol 1 - 2 puff IH Q4HR PRN 11/24/15 10/08/16 Inhaler] Allopurinol [Zyloprim 100 MG] 100 mg PO DAILY 11/24/15 10/08/16 Budesonide/Formoterol 160/4.5 2 puff IH BIDR 11/24/15 10/08/16 [Symbicort 160/4.5] Calcium Carbonate [Calcium] 500 mg PO BID 11/24/15 10/08/16 Cholecalciferol (D-3) [Vitamin D] 2,000 unit PO DAILY 11/24/15 10/08/16 Fluticasone Propionate Nasal 50 mcg NS DAILY 11/24/15 10/08/16 [Flonase] Folic Acid 1 mg PO DAILY 11/24/15 10/08/16 Gabapentin [Neurontin] 200 mg PO HS 11/24/15 10/08/16 Loratadine [Claritin] 10 mg PO DAILY 11/24/15 10/08/16 Metoprolol XL (24 HR) Succ [Toprol 12.5 mg PO BID 11/24/15 10/08/16 Xl] Montelukast [Singulair] 10 mg PO DAILY 11/24/15 10/08/16 Nitroglycerin [Nitrostat] 0.4 mg SL Q5M PRN 11/24/15 10/08/16 Nortriptyline [Pamelor] 10 mg PO HS 11/24/15 10/08/16 Roflumilast [Daliresp] 500 mcg PO DAILY 11/24/15 10/08/16 Vitamin B Complex [B Complex] 1 tab PO DAILY 11/24/15 10/08/16 Umeclidinium [place] [Incruse 1 puff IH DAILY 12/17/15 10/08/16 Ellipta] Atorvastatin [Lipitor] 10 mg PO HS 01/01/16 10/08/16 Docusate Sodium [Dok] 300 mg PO BID 01/01/16 10/08/16 Albuterol Neb [Proventil Neb] 2.5 mg IH Q4HR PRN 08/25/16 10/08/16 Bifidobacterium Infantis [Align] 4 mg PO DAILY 08/25/16 10/08/16 Tramadol HCl 50 - 100 mg PO QID PRN 09/13/16 10/08/16 Warfarin [Coumadin] 5 mg PO TUWE 09/13/16 10/08/16 Warfarin [Coumadin] 7.5 mg PO SUMOTHFRSA 09/25/16 10/08/16 Acetylcysteine 600 mg PO BID 10/08/16 10/08/16 [S-Abgcuw-t-Cysteine] Previous Rx's Medication Instructions Recorded Oxygen 2 l IN CONT #1 each 08/26/16 Esomeprazole Magnesium [Nexium] 40 mg PO DAILY #30 capsule. 10/03/16 Furosemide [Lasix] 40 mg PO BID #60 tablet 10/03/16 Potassium Chloride [K-Tab ER] 20 meq PO DAILY #30 tablet.er 10/03/16 PredniSONE 10 mg PO DAILY 20 Days 10/03/16 Allergies Allergy/AdvReac Type Severity Reaction Status Date / Time ceftriaxone [From Rocephin] Allergy Severe Hives Verified 08/25/16 08:19 ciprofloxacin [From Cipro HC] Allergy Severe Hives Verified 08/25/16 08:19 levofloxacin [From Levaquin] Allergy Severe Hives Verified 08/25/16 08:19 vancomycin Allergy Severe Rash Verified 08/25/16 08:19 hydrocortisone Allergy Intermediate Hives Verified 08/25/16 08:19 [From Cipro HC] Review of Systems: Refer to history of present illness Past Medical History - Past Medical History Medical history: Reports: arthritis, atrial fibrillation, cardiomyopathy, CHF, COPD, fibromyalgia, hypertension, myocardial infarction, osteoporosis, RA, other Surgical history: Reports: angioplasty/stent, cholecystectomy, coronary bypass ( CABG), heart valve replacement, orthopedic, other Psychiatric history: Reports: no psych history - Social History Smoking Status: Former smoker Smokeless Tobacco Status: No Alcohol use: Reports: none Drug use: Reports: none Physical Exam CONSTITUTIONAL: Well-appearing; well-nourished; A&O X 3, in moderate respiratory distress HEAD: Normocephalic; atraumatic EYES: PERRL, no scleral icterus NOSE: The nose is normal in appearance without rhinorrhea NECK: No JVD or distended neck veins RESP: Normal chest excursion with respiration; breath sounds with bilateral wheezing and rhonchi CARD: Regular rhythm, without murmurs, rub or gallop ABD: Non-distended; non-tender, soft, without rigidity, rebound or guarding,no pulsatile mass CHEST: No pain with palpation SKIN: Normal for age and race; warm and dry without diaphoresis ; no apparent lesions EXTREMITIES: Pulses are 2 plus and equal times 4 extremities, no peripheral edema or calf muscle pain - General Limitations: no limitations General appearance: alert, in no apparent distress Course Vital Signs Temperature 98.4 F 10/08/16 11:53 Pulse Rate 93 10/08/16 11:53 Respiratory Rate 22 10/08/16 11:53 Blood Pressure 152/90 10/08/16 11:53 O2 Sat by Pulse Oximetry 94 10/08/16 11:53 Temperature 98 F 10/08/16 18:51 Pulse Rate 81 10/08/16 18:51 Respiratory Rate 20 10/08/16 20:00 Blood Pressure 103/68 10/08/16 18:51 O2 Sat by Pulse Oximetry 97 10/08/16 20:00 Oxygen Delivery Oxygen Delivery Nasal Cannula Shortness of Breath/Dyspnea - [facility] Narrative Medical decision making narrative: Patient's symptoms most consistent with COPD exacerbation and will receive Decadron 10 mg IV, DuoNeb and chest x-rays pending for consideration of antibiotic selection. The patient will be admitted. Oxygen saturation currently 91% on nasal cannula 1206 I did review the patient's EKG showed normal sinus rhythm with a rate of 87 without acute ischemic change. I did compare this to previous EKG from September 25 which is similar in appearance 1232 I did review the patient's labs. CT scan is pending. X-ray without acute change. I did speak with Dr. Fischer who accepted the patient for admission. 1401 I did just see the patient again several minutes ago but she does have worsening infiltrates on chest x-rays will be admitted and treated with IV Zosyn. She does have an allergy to ceftriaxone but not to penicillin. We will hold on vancomycin as she is allergic to that. Clinically she is somewhat improved at this time. 1403 - Medical Records Medical records reviewed: Yes I reviewed the patient's medical records. - Lab Data Lab results reviewed: Yes I reviewed the patient's lab results. Result diagrams: 10/08/16 12:17 10/08/16 12:17 Lab Results 10/08/16 10/08/16 10/08/16 Range/Units 12:17 12:17 12:17 WBC 12.1 H (4.3-11.1) K/mcL RBC 4.62 (3.82-4.97) M/mcL Hgb 12.6 (11.5-15.4) g/dL Hct 40.5 (35.3-44.9) % MCV 87.7 (83.0-100.0) fL MCH 27.3 L (28.0-33.3) pg MCHC 31.1 L (31.6-35.5) g/dL RDW 17.2 H (11.5-14.5) % Plt Count 155 (140-400) K/mcL MPV 11.0 (9.4-12.4) fL Immature Gran % 0.7 (0-4) % Seg Neutrophils % 91.2 % Lymphocytes % 3.6 % Monocytes % 4.3 % Eosinophils % 0.0 % Basophils % 0.2 % Neutrophils # 11.0 H (1.6-8.9) K/mcL Lymphocytes # 0.4 L (0.6-4.6) K/mcL Monocytes # 0.5 (0.0-1.3) K/mcL Eosinophils # 0.0 (0.0-0.6) K/mcL Basophils # 0.0 (0.0-0.2) K/mcL PT (9.4-12.1) Seconds INR Sodium 141 (136-145) mEq/L Potassium 3.9 (3.5-4.5) mEq/L Chloride 104 (98-109) mEq/L Carbon Dioxide 28 (19-29) mEq/L BUN 29 H (7-20) mg/dL Creatinine 0.91 (0.57-1.11) mg/dL Est GFR ( Amer) > 60 (> 60) Est GFR (Non-Af Amer) > 60 (> 60) BUN/Creatinine Ratio 32 H (6-26) Glucose 132 H (70-99) mg/dL Calculated Osmolality 300 (280-300) Calcium 8.6 (8.6-10.8) mg/dL Troponin I 0.01 (0-0.03) ng/mL B-Natriuretic Peptide (0-100) pg/mL 10/08/16/12/19 Range/Units 12:17 12:17 WBC (4.3-11.1) K/mcL RBC (3.82-4.97) M/mcL Hgb (11.5-15.4) g/dL Hct (35.3-44.9) % MCV (83.0-100.0) fL MCH (28.0-33.3) pg MCHC (31.6-35.5) g/dL RDW (11.5-14.5) % Plt Count (140-400) K/mcL MPV (9.4-12.4) fL Immature Gran % (0-4) % Seg Neutrophils % % Lymphocytes % % Monocytes % % Eosinophils % % Basophils % % Neutrophils # (1.6-8.9) K/mcL Lymphocytes # (0.6-4.6) K/mcL Monocytes # (0.0-1.3) K/mcL Eosinophils # (0.0-0.6) K/mcL Basophils # (0.0-0.2) K/mcL PT 35.3 H (9.4-12.1) Seconds INR 3.2 Sodium (136-145) mEq/L Potassium (3.5-4.5) mEq/L Chloride (98-109) mEq/L Carbon Dioxide (19-29) mEq/L BUN (7-20) mg/dL Creatinine (0.57-1.11) mg/dL Est GFR ( Amer) (> 60) Est GFR (Non-Af Amer) (> 60) BUN/Creatinine Ratio (6-26) Glucose (70-99) mg/dL Calculated Osmolality (280-300) Calcium (8.6-10.8) mg/dL Troponin I (0-0.03) ng/mL B-Natriuretic Peptide 104 H (0-100) pg/mL - Radiology Data Radiology results reviewed: Yes I reviewed the patient's radiology results. Chest X-Ray 10/08/16 12:06 IMPRESSION: Bibasilar airspace disease and small pleural effusions, mildly worsened. No new infiltrate. COPD. D/ / Elmer Lopez MD / Elmer Lopez MD Interpreting Provider: Elmer Lopez MD
[2016-10-08] MEDS ORDERED: Dexamethasone 4 MG/ML VIAL IVP ONE (12:07)
[2016-10-08] MEDS ORDERED: Ipratropium/Albuterol Neb 3 ML IH ONE (12:07)
[2016-10-08 12:36] LABS: Basophils % 0.2 %; Hematocrit 40.5 % (35.3-44.9); Hemoglobin 12.6 g/dL (11.5-15.4); Immature Granulocytes % 0.7 % (0-4); Lymphocytes # 0.4 K/mcL (0.6-4.6); Lymphocytes % 3.6 %; Mean Corpuscular HGB Conc 31.1 g/dL (31.6-35.5); Mean Corpuscular Hemoglobin 27.3 pg (28.0-33.3); Mean Corpuscular Volume 87.7 fL (83.0-100.0); Monocytes # 0.5 K/mcL (0.0-1.3); Monocytes % 4.3 %; Platelet Count 155 K/mcL (140-400); Red Blood Count 4.62 M/mcL (3.82-4.97); Red Cell Distribution Width 17.2 % (11.5-14.5); Segmented Neutrophils % 91.2 %
[2016-10-08 12:41] LABS: INR 3.2; Prothrombin Time 35.3 Seconds (9.4-12.1)
[2016-10-08 12:49] LABS: BUN/Creatinine Ratio 32 (6-26); Blood Urea Nitrogen 29 mg/dL (7-20); Calcium 8.6 mg/dL (8.6-10.8); Carbon Dioxide 28 mEq/L (19-29); Chloride 104 mEq/L (98-109); Glucose 132 mg/dL (70-99); Osmolality,Calculated 300 (280-300); Potassium 3.9 mEq/L (3.5-4.5); Sodium 141 mEq/L (136-145); eGFR For African Americans > 60 (> 60); eGFR For Non-African Americans > 60 (> 60)
[2016-10-08] MEDS ORDERED: Piperacillin/Tazobactam 4.5 GM in D5% in Water (Mini-Bag+) 100 ML IVPB ONE (13:59)
--- NOTE | 2016-10-08 16:04 | Electrocardiograph Report ---
[address] [address] Test Date: 2016-10-08 Pat Name: Yasmeen Dewitt Department: 103 Room: 3B Gender: F Assistant Media Planner: JEFRY : 1945 Requested By: Star Meraz Order Number: [id number] Reading MD: Greg Cadet MD Measurements Intervals [place] Rate: 87 P: 44 NE: 138 QRS: 38 QRSD: 76 T: 62 QT: 353 QTc: 398 Interpretive Statements SINUS RHYTHM Electronically Signed On 10-08-2016 16:02:56 EDT by Greg Cadet MD
[2016-10-08] MEDS ORDERED: Ondansetron 4 MG/2 ML VIAL IVP PRN (16:26)
[2016-10-08] MEDS ORDERED: Naloxone 0.4 MG/ML INJ IVP PRN (16:26)
[2016-10-08] MEDS ORDERED: Nitroglycerin 0.4 MG TAB.SUBL SL PRN (16:29)
[2016-10-08] MEDS ORDERED: 0.9 % Sodium Chloride 1,000 ML IVC SCH (16:30)
--- NOTE | 2016-10-08 16:52 | Internal Med History&Physical ---
<Brittany Paez - Last Filed: 10/08/16 17:09> Date of Encounter: 10/08/16 Time of Encounter: 16:00 Assessment and Plan (1) Acute exacerbation of chronic obstructive pulmonary disease (COPD) Current visit: No Status: Acute 1 patient has history of COPD she is oxygen dependent at home. She has audible wheezes scattered rhonchi throughout. She has been experiencing increasing shortness of breath not relieved with oxygen or nebulizers. We will continue with oxygen titrated to maintain SPO2 greater than 92% 2 she was discharged 4 days ago and is on steroid taper and will continue with the 40 mg prednisone and extend taper 3 we will continue with bronchodilators Singulair daily rasp 4 we will consult pulmonary rehabilitation as well as physical therapy (2) Chronic respiratory failure with hypoxia Current visit: No Status: Chronic 1 over the past 2 months patient has been experiencing a decline in respiratory status requiring increasing oxygen. We will continue with O2 titrated to maintain SPO2 greater than 92% 2 we will continue with bronchodilators 3 pulmonary rehabilitation 4 patient to follow-up with pulmonary as outpatient we will consult as needed (3) Anticoagulated on Coumadin Current visit: No Status: Chronic 1 she is on Coumadin for mechanical valve. We will continue with Coumadin and monitor INR daily maintain INR between 2.5 and 3 pharmacy to dose (4) CKD (chronic kidney disease) stage 3, GFR 30-59 ml/min Current visit: No Status: Chronic 1 presently creatinine is stable at 0.91. We will continue to monitor creatinine 2 we will avoid nephrotoxins 3 monitor intake and output daily weights (5) Diastolic CHF Current visit: No Status: Chronic 1 presently stable. We will continue with Lasix 2 low sodium diet 3 monitor intake and output 4 daily weights Qualifiers: Congestive heart failure chronicity: unspecified congestive heart failure chronicity Qualified Code(s): I50.30 - Unspecified diastolic (congestive) heart failure (6) Paroxysmal a-fib Current visit: Yes Status: Acute 1 is only in sinus rhythm controlled rate. We will continue with metoprolol as well as Coumadin (7) Physical deconditioning Current visit: Yes Status: Acute 1 patient has been experiencing increased weakness and fatigue she has had several hospitalizations over the past 3 months. She is unable to complete her ADLs due to weakness and shortness of breath. We will consult physical therapy as well as pulmonary rehabilitation for strengthening and reconditioning (8) DVT prophylaxis Current visit: Yes Status: Acute Patient is on Coumadin-continue Internal Medicine - H&P: HPI Chief complaint: SOB Admitted From: Emergency Dept Plans for Post Hospital Care: Home History of present illness: Ms. Dewitt is a 71 year old female Past history of rheumatoid arthritis atrial fibrillation cardiomyopathy congestive heart failure COPD hypertension fibromyalgia CABG mechanical mitral valve. Patient has had several admissions over the past 3 months approximate 4 altogether related to COPD exacerbation and pneumonia. She was recently admitted on 325 was positive for influenza B it was treated for age. She received 7 days of meropenem and 5 days of Tamiflu and was discharged home on a steroid taper. She did home approximately 4 days and has been experiencing a increasing shortness of breath on exertion, weakness and fatigue. She is unable to complete her ADLs and her has been assisting her. She denies any fevers chills nausea vomiting diarrhea she does have a productive cough with yellow sputum however she states this is unchanged from previous. She denies any sick contacts at this time she is on continuous home oxygen at 2 L nasal cannula she uses breathing treatments which do not relieve her symptoms. She has been taking her medication as prescribed. She presented to the ER with the above complaints. According to records patient presented tachypneic oxygen saturation is 91% on nasal cannula. EKG was obtained normal sinus rhythm x-ray will without any acute changes. Lab work did reveal a WBC of 12.1 she is on steroids at home rest of lab work unremarkable. She was given breathing treatments as well as steroids she was given Zosyn IV. Patient was admitted for further workup and evaluation. Presently patient does not appear to be in respiratory distress she denies any shortness of breath or chest pain at this time. Upon auscultation of lungs sounds patient does have an audible expiratory wheeze with scattered rhonchi throughout. Heart sounds with S1-S2 with notable click. No murmurs rubs gallops noted presently she appears to be hemodynamically stable. I reviewed this case with who agrees with plan. Past Med Surg Social Fam HX - Past Medical History Medical history: arthritis, atrial fibrillation, cardiomyopathy, CHF, COPD, fibromyalgia, hypertension, myocardial infarction, osteoporosis, RA, other Psychiatric history: no psych history - Past Surgical History Surgical History: angioplasty/stent, cholecystectomy, coronary bypass (CABG), heart valve replacement, orthopedic, other - Social History Smoking Status: Former smoker Smokeless Tobacco Status: No Alcohol use: none Drug use: none - Family History Father Living Status: Hx Family Cardiac Disorders: Yes (open heart surgery) Hx Family Respiratory Disorders: No Hx Family Cancer: Yes (Liver cancer w/ mets) Hx Family GI Disorders: No Hx Family Genitourinary Disorders: No Hx Family Endocrine Disorder: No Hx Family Musculoskeletal Disorders: No Hx Family Neuromuscular Disorders: No Hx Family Neurologic Disorders: No Hx Family HEENT Disorders: No Hx Family Autoimmune Disorders: No Hx Family Reproductive Disorders: No Hx Family Psychosocial Disorders: No Hx Family Medical Disorders: No Mother Living Status: Hx Family Cardiac Disorders: No Hx Family Respiratory Disorders: Yes Hx Family Cancer: Yes (bone, lung) Hx Family GI Disorders: No Hx Family Genitourinary Disorders: No Hx Family Endocrine Disorder: No Hx Family Musculoskeletal Disorders: No Hx Family Neuromuscular Disorders: No Hx Family Neurologic Disorders: No Hx Family HEENT Disorders: No Hx Family Autoimmune Disorders: No Hx Family Reproductive Disorders: No Hx Family Psychosocial Disorders: No Hx Family Medical Disorders: No Internal Medicine - H&P: Meds Albuterol Sulfate [Albuterol Inhaler] 1 - 2 puff IH Q4HR PRN 11/24/15 [History] Allopurinol [Zyloprim 100 MG] 100 mg PO DAILY 11/24/15 [History] Budesonide/Formoterol 160/4.5 [Symbicort 160/4.5] 2 puff IH BIDR 11/24/15 [ History] Calcium Carbonate [Calcium] 500 mg PO BID 11/24/15 [History] Cholecalciferol (D-3) [Vitamin D] 2,000 unit PO DAILY 11/24/15 [History] Fluticasone Propionate Nasal [Flonase] 50 mcg NS DAILY 11/24/15 [History] Folic Acid 1 mg PO DAILY 11/24/15 [History] Gabapentin [Neurontin] 200 mg PO HS 11/24/15 [History] Loratadine [Claritin] 10 mg PO DAILY 11/24/15 [History] Metoprolol XL (24 HR) Succ [Toprol Xl] 12.5 mg PO BID 11/24/15 [History] Montelukast [Singulair] 10 mg PO DAILY 11/24/15 [History] Nitroglycerin [Nitrostat] 0.4 mg SL Q5M PRN 11/24/15 [History] Nortriptyline [Pamelor] 10 mg PO HS 11/24/15 [History] Roflumilast [Daliresp] 500 mcg PO DAILY 11/24/15 [History] Vitamin B Complex [B Complex] 1 tab PO DAILY 11/24/15 [History] Umeclidinium Jasper [Incruse Ellipta] 1 puff IH DAILY 12/17/15 [History] Atorvastatin [Lipitor] 10 mg PO HS 01/01/16 [History] Docusate Sodium [Dok] 300 mg PO BID 01/01/16 [History] Albuterol Neb [Proventil Neb] 2.5 mg IH Q4HR PRN 08/25/16 [History] Bifidobacterium Infantis [Align] 4 mg PO DAILY 08/25/16 [History] Oxygen 2 l IN CONT #1 each 08/26/16 [Rx] Tramadol HCl 50 - 100 mg PO QID PRN 09/13/16 [History] Warfarin [Coumadin] 5 mg PO TUWE 09/13/16 [History] Warfarin [Coumadin] 7.5 mg PO SUMOTHFRSA 09/25/16 [History] Esomeprazole Magnesium [Nexium] 40 mg PO DAILY #30 capsule. 10/03/16 [Rx] Furosemide [Lasix] 40 mg PO BID #60 tablet 10/03/16 [Rx] Potassium Chloride [K-Tab ER] 20 meq PO DAILY #30 tablet.er 10/03/16 [Rx] PredniSONE 10 mg PO DAILY 20 Days 10/03/16 [Rx] Acetylcysteine [T-Hxyfkz-v-Cysteine] 600 mg PO BID 10/08/16 [History] Allergies ceftriaxone [From Rocephin] Allergy (Severe, Verified 08/25/16 08:19) Hives ciprofloxacin [From Cipro HC] Allergy (Severe, Verified 08/25/16 08:19) Hives levofloxacin [From Levaquin] Allergy (Severe, Verified 08/25/16 08:19) Hives vancomycin Allergy (Severe, Verified 08/25/16 08:19) Rash hydrocortisone [From Cipro HC] Allergy (Intermediate, Verified 08/25/16 08:19) Hives All Systems PM: A 10-system review of systems was performed and is negative for pertinent findings except as documented above in the HPI. - Constitutional Constitutional: fatigue, lethargy - Cardiovascular Cardiovascular ROS IM: no chest pain, no diaphoresis, no dyspnea, no lightheadedness, no palpitations, no syncope - Respiratory Respiratory: cough, dyspnea, dyspnea on exertion, wheezing - Gastrointestinal Gastrointestinal: no abdominal pain, no diarrhea, no hematemesis, no hematochezia, no melena, no nausea, no vomiting - Genitourinary Genitourinary: no change in urinary stream, no dysuria, no flank pain, no hematuria - Musculoskeletal Musculoskeletal ROS IM: no numbness, no tingling - Integumentary Integumentary IM: no rash, no unusual bruising - Neurological Neurological ROS: no confusion, no convulsions, no focal weakness, no numbness, no tingling, no tremor(s) - Hematologic/Lymphatic Hematologic/Lymphatic: no easy bruising - Constitutional Vitals: Temp Pulse Resp BP Pulse Ox 97.6 F 78 16 118/69 95 10/08/16 14:59 10/08/16 14:59 10/08/16 14:59 10/08/16 14:59 10/08/16 14:59 General appearance: Present: A&O X 3, answers questions appropriately - Head Head exam: Present: atraumatic, normocephalic - Respiratory Respiratory exam: Present: rhonchi, wheezes - Cardiovascular Cardiovascular exam: Present: clicks, RRR, +S1, +S2. Absent: diastolic murmur, gallop, rubs, systolic murmur - GI/Abdominal GI/Abdominal exam: Present: normal bowel sounds, soft, no peritoneal signs. Absent: distended, tenderness - Extremities Exam Extremities exam: Present: warm, radial pulses palpable and symetrical. Absent : calf tenderness, cyanotic, pedal edema - Neurological Exam Neurological exam: Present: CN II-XII intact, oriented X3, no focal deficits. Absent: pronater drift, facial droop, speech deficit - Skin Skin exam: Present: dry, intact Internal Med - H&P Results - Labs CBC & Chem 7: 10/08/16 12:17 10/08/16 12:17 - EKG Data EKG shows normal: sinus rhythm - EKG Data Prior EKG available for review: yes When compared to previous EKG: there is no significant change - Diagnostic Studies Chest x-ray Additional comments: Chest X-Ray 10/08/16 12:06 IMPRESSION: Bibasilar airspace disease and small pleural effusions, mildly worsened. No new infiltrate. COPD. D/ / Elmer Lopez MD / Elmer Lopez MD Interpreting Provider: Elmer Lopez MD <[email or web address] T - Last Filed: 10/08/16 17:41> Date of Encounter: 10/08/16 Internal Medicine - H&P: HPI History of present illness: Ms. Dewitt is a 71 year old female All Systems PM: A 10-system review of systems was performed and is negative for pertinent findings except as documented above in the HPI. - Constitutional Vitals: Temp Pulse Resp BP Pulse Ox 97.6 F 78 16 118/69 95 10/08/16 14:59 10/08/16 14:59 10/08/16 14:59 10/08/16 14:59 10/08/16 14:59 Internal Med - H&P Results - Labs CBC & Chem 7: 10/08/16 12:17 10/08/16 12:17 - Attending Attestation I have independently interviewed and examined this patient. I agree with the resident/nurse practitioner with extensions as stated below. The plan of care has been discussed with the patient 71 Y/O F with chronic hypoxic respiratory failure, recently discharged from this facility 10/04/16, she also has a PMH of COPD, CHFpEF, Afib , CAD s/p CABG, MVR on Coumadin, CKD III. She represented to the hospital because of exertional dyspnea, she believes her breathing has not changed since she was discharged especially when she ambulates or exerts herself with her daily chores. She denies new fever or chills, new or worsening cough, no other symptoms. She has not been requiring higher doses of her oxygen. Physical exam reveals a deconditioned elderly female, diffuse bilateral wheezing and rhonchi. Other systemic exam unremarkable. Labs and Imaging reviewed and noted: Leukpcytosis improved from values at discharge, even though patient was on prednisone at home, labs are otherwise unremarkable, INR is therapeutic, CXR is not different from CXR done on 09/29. Assessment/Plan: COPDE, physical deconditioning, continue steroids, and nebs, consult pulmonary rehab and PT/OT eval. Other chronic conditions stable, resume home meds. Rest of details as in [facility] documentation..
[2016-10-08] MEDS ORDERED: *HR* Warfarin 7.5 MG TABLET PO SCH (18:00)
[2016-10-08] MEDS ORDERED: Warfarin perPT PO PRN (18:00)
[2016-10-08] MEDS: Budesonide/Formoterol 160/4.5 MDI IH SCH (19:58)
[2016-10-08] MEDS: Albuterol 2.5 MG/3 ML NEBULIZER IH PRN (19:58)
[2016-10-08] MEDS: Gabapentin 100 MG CAPSULE PO SCH (20:27)
[2016-10-08] MEDS: Metoprolol XL (24 HR) Succ 25 MG TAB.ER.24H PO SCH (20:28)
[2016-10-08] MEDS: Furosemide 40 MG TABLET PO SCH (20:28)
[2016-10-08] MEDS: traMADol 50 MG TABLET PO PRN (20:36)
[2016-10-09] MEDS: Albuterol 2.5 MG/3 ML NEBULIZER IH PRN ×3 (00:15→08:05)
[2016-10-09 05:05] LABS: Basophils % 0.1 %; Hematocrit 33.8 % (35.3-44.9); Immature Granulocytes % 0.8 % (0-4); Lymphocytes # 0.8 K/mcL (0.6-4.6); Lymphocytes % 8.8 %; Mean Corpuscular HGB Conc 31.7 g/dL (31.6-35.5); Mean Corpuscular Hemoglobin 27.5 pg (28.0-33.3); Mean Corpuscular Volume 86.9 fL (83.0-100.0); Monocytes # 0.8 K/mcL (0.0-1.3); Monocytes % 8.2 %; Neutrophils # 7.5 K/mcL (1.6-8.9); Platelet Count 132 K/mcL (140-400); Red Blood Count 3.89 M/mcL (3.82-4.97); Red Cell Distribution Width 16.9 % (11.5-14.5); Segmented Neutrophils % 82.1 %
[2016-10-09 05:10] LABS: Hemoglobin 10.7 g/dL (11.5-15.4)
[2016-10-09 05:19] LABS: BUN/Creatinine Ratio 33 (6-26); Blood Urea Nitrogen 27 mg/dL (7-20); Carbon Dioxide 28 mEq/L (19-29); Chloride 106 mEq/L (98-109); Glucose 58 mg/dL (70-99); Osmolality,Calculated 299 (280-300); Potassium 3.6 mEq/L (3.5-4.5); Sodium 143 mEq/L (136-145); eGFR For African Americans > 60 (> 60); eGFR For Non-African Americans > 60 (> 60)
[2016-10-09] MEDS: Budesonide/Formoterol 160/4.5 MDI IH SCH ×2 (08:05→20:49)
[2016-10-09] MEDS: Folic Acid 1 MG TABLET PO SCH (08:21)
[2016-10-09] MEDS: Vitamin B Complex/Vit C/Vit E 1 EACH TABLET PO SCH (08:21)
[2016-10-09] MEDS: traMADol 50 MG TABLET PO PRN ×2 (08:21→21:08)
[2016-10-09] MEDS: Loratadine 10 MG TABLET PO SCH (08:21)
[2016-10-09] MEDS: Furosemide 40 MG TABLET PO SCH ×2 (08:21→21:09)
[2016-10-09] MEDS: Metoprolol XL (24 HR) Succ 25 MG TAB.ER.24H PO SCH ×2 (08:22→21:09)
[2016-10-09] MEDS: Cholecalciferol (D-3) 1,000 UNIT TABLET PO SCH (08:22)
[2016-10-09] MEDS: (Roflumilast [Daliresp] 500 MCG) PO SCH (08:23)
[2016-10-09] MEDS: (Umeclidinium Bromide [Incruse Ellipta] 1 PUFF) IH SCH (08:23)
[2016-10-09] MEDS: Fluticasone Propionate Nasal 50 MCG/SPRAY BOTTLE NS SCH (08:51)
[2016-10-09] MEDS ORDERED: predniSONE 20 MG TABLET PO SCH (09:00)
[2016-10-09] MEDS: Ipratropium/Albuterol Neb 3 ML IH SCH ×4 (11:11→23:04)
--- NOTE | 2016-10-09 13:51 | Internal Med Progress Note ---
Date of Encounter: 10/09/16 Time of Encounter: 09:30 - Assessment and plan (1) Acute exacerbation of chronic obstructive pulmonary disease (COPD) Current Visit: No Status: Acute Assessment and plan: Patient has had several recent admissions for the same. This is her fourth admission in 3 months. Chest x-ray consistent with COPD. She has had increased need for supplemental oxygenation. Of note, patient was on CPAP at home and use it every night when she was asleep for 7 years but her insurance changed and she is no longer able to afford her CPAP. She has not used since July which could likely be a contributing factor for frequent readmissions since the beginning of this year. We will order CPAP while she is here and bring psychologist social on board to hopefully assist with resources. We will also bring pulmonology on board due to her frequent readmissions. Last admission, she was noted to have mucus plugging and collapse of her left lower lobe. Initially, we are going to proceed with a bronchoscopy however we chose to hold off as her INR was elevated and she also had influenza. Possible bronchoscopy this admission, we will hold Coumadin and placed on Lovenox. We will repeat a chest CT. (2) Mucus plugging of bronchi Current Visit: No Status: Acute Assessment and plan: Acute on chronic. Last time she was admitted last week, initial thought was for a possible bronchoscopy however patient's INR was elevated and she also had influenza since the decision was made to wait. We will bring pulmonology on board for possible bronchoscopy. Will hold her Coumadin and place her on Lovenox. (3) Hypertension Current Visit: No Status: Chronic Assessment and plan: Controlled. At home, patient is on metoprolol XL 12.5 mg twice a day, furosemide 40 mg twice a day and these both have been continued. We will continue to trend. Qualifiers: Hypertension type: essential hypertension Qualified Code(s): I10 - Essential (primary) hypertension (4) H/O mitral valve replacement with mechanical valve Current Visit: No Status: Chronic Assessment and plan: INR therapeutic (5) DVT prophylaxis Current Visit: No Status: Acute Assessment and plan: On Coumadin with therapeutic INR (6) Acute and chronic respiratory failure Current Visit: No Status: Chronic Assessment and plan: Acute on chronic. At home, patient is on 2 L per nasal cannula continuously. At home over the last couple weeks, she has had increase her oxygen to 3-3-1/2 L. She is currently on 3.5 L here. We will continue to titrate oxygen as needed. Patient also stating she used to wear CPAP every night for 7 years but states her insurance changed in July she has not been able to wear it. We will order here and bring psychologist social on board for resources. Strong suspicion that inability to use her CPAP may be contributing to her frequent readmissions this year. Qualifiers: Respiratory failure complication: hypoxia Qualified Code(s): J96.21 - Acute and chronic respiratory failure with hypoxia (7) Diastolic heart failure Current Visit: No Status: Chronic Assessment and plan: She is euvolemic on examination. We will continue to monitor. Chronic diastolic heart failure. Qualifiers: Heart failure chronicity: chronic Qualified Code(s): I50.32 - Chronic diastolic (congestive) heart failure (8) Anxiety Current Visit: No Status: Chronic (9) Leukocytosis Current Visit: No Status: Resolved Qualifiers: Leukocytosis type: unspecified Qualified Code(s): D72.829 - Elevated white blood cell count, unspecified (10) COPD (chronic obstructive pulmonary disease) Current Visit: No Status: Chronic Qualifiers: COPD type: unspecified COPD Qualified Code(s): J44.9 - Chronic obstructive pulmonary disease, unspecified (11) Atrial fibrillation Current Visit: No Status: Chronic Assessment and plan: Rate controlled, therapeutic on Coumadin Qualifiers: Atrial fibrillation type: chronic Qualified Code(s): I48.2 - Chronic atrial fibrillation (12) Anticoagulated on Coumadin Current Visit: No Status: Chronic (13) Physical deconditioning Current Visit: Yes Status: Acute Assessment and plan: Acute on chronic and likely related to her advancing COPD. PT is on board. Pulmonology rehabilitation also on board. - Subjective Interval history: Patient seen and examined. On examination, patient sitting upright on the side of her bed. Patient alert and oriented 3 and quite verbose. She continues to endorse shortness of breath above her norm. She is endorsing a normal appetite. Patient stating she also feels pretty weak but states she is still able to get around her room pretty well. - Constitutional Vitals: Temp Pulse Resp BP Pulse Ox 98.0 F 98 17 113/72 99 10/09/16 10:35 10/09/16 10:35 10/09/16 11:12 10/09/16 10:35 10/09/16 11:12 General appearance: Present: mild distress (moderate), A&O X 3, pleasant, answers questions appropriately - Head Head exam: Present: atraumatic, normocephalic - Eye Eye exam: Present: PERRL, conjuntiva pink, sclera anicteric Pupils: Present: PERRL - Neck Neck exam general surgery: Present: supple, trachea midline. Absent: lymphadenopathy - Respiratory Respiratory exam: Present: accessory muscle use, decreased breath sounds, prolonged expiratory phase, respiratory distress, rhonchi, wheezes. Absent: CTAB, rales - Cardiovascular Cardiovascular exam: Present: RRR, +S1, +S2. Absent: diastolic murmur, gallop, rubs, systolic murmur - GI/Abdominal GI/Abdominal exam: Present: normal bowel sounds, soft, no peritoneal signs. Absent: distended, tenderness - Extremities Exam Extremities exam: Present: warm, radial pulses palpable and symetrical. Absent : calf tenderness, cyanotic, pedal edema - Neurological Exam Neurological exam: Present: alert, CN II-XII intact, oriented X3, no focal deficits, strengths equal and symetr throughout. Absent: pronater drift, facial droop, speech deficit - Skin Skin exam: Present: dry, intact, pallor, warm Internal Medicine: Result - Labs CBC & Chem 7: 10/09/16 04:00 10/09/16 04:00 Labs: Short CBC 10/09/16 Range/Units 04:00 WBC 9.2 (4.3-11.1) K/mcL Hgb 10.7 L D (11.5-15.4) g/dL Hct 33.8 L (35.3-44.9) % Plt Count 132 L (140-400) K/mcL Neutrophils # 7.5 (1.6-8.9) K/mcL BMP 10/09/16 04:00 Sodium 143 Potassium 3.6 Chloride 106 Carbon Dioxide 28 BUN 27 H Creatinine 0.83 Glucose 58 L Calcium 8.0 L - ABG Interpretation ABG results: PT/INR, D-dimer PT 35.3 Seconds (9.4-12.1) H 10/08/16 12:17 Consult Discharge Plan - Plan Referrals: Christoph Hughes DO [Primary Care Provider] -
[2016-10-09] MEDS ORDERED: *HR* Morphine 2 MG/ML SYRINGE IVP PRN (14:04)
[2016-10-09] MEDS ORDERED: Acetaminophen 325 MG TABLET PO PRN (14:04)
[2016-10-09] MEDS ORDERED: Albuterol 2.5 MG/3 ML NEBULIZER IH PRN (14:06)
--- NOTE | 2016-10-09 14:32 | Pulmonology Consult Note ---
<Edy Wang - Last Filed: 10/09/16 16:16> Date of Encounter: 10/09/16 Time of Encounter: 14:25 Assessment and Plan (1) Acute and chronic respiratory failure Current Visit: Yes Status: Acute 71 F admitted multiple times in the past three months for COPD exacerbation and pneumonia. CT scan om 09/26 showed LLL collapse due to mucous plugging. SHe was evaluated by pulmonology then for bronchoscopy however, due to elevated INR from warfarin use and influenza infection the decision was made not to undergo the procedure. Patient was readmitted yesterday for COPD exacerbation. Her symptoms have improved with bronchodialators, steroids and antibiotics. She is on 3L O2 with SPO2 96%. 2nd to severe COPD in setting of diastolic CHF, deconditioning Plan: -continue steroids, symbicort, -descalate antibiotics if sputum and blood cultures normal. -will undergo bronchoscopy onece INR is <1.5 -patient is already being transitioned to lovenox from coumadin -CBC, PT/INR in morning. Patient's insurance was changed and she cannot affort CPAP, symbicort, daliresp. litigation services manager on board. Qualifiers: Respiratory failure complication: hypoxia Qualified Code(s): J96.21 - Acute and chronic respiratory failure with hypoxia (2) Mucus plugging of bronchi Current Visit: Yes Status: Acute plan as above. History of Present Illness Consult date: 10/09/16 Requesting physician: Rachel Gonzales Reason for consult: other (mucous plugging) Chief complaint: sob History of present illness: 71 y/o female hx of RA, afib, CHF, COPD, CABG and mechanical mitral valve. Presents with SOB. Has had repeat admissions in the last three months related to COPD exacerbation and pneumonia. During previous visit Patient had CT scan of chest showing complete collapse of LLL due to mucous plugging. She was evaluated by press feeder and decision was made to wait for bronchoscopy as patient is on warfarin and had elevated INR and also was admitted for influenza. However, patient is now back due to COPD exacerbation. Her symptoms have improved with steroids, antibiotics and nebulizer treatments. She is on 2L saturating at 96%. Due to frequent admissions, pulmonology was consulted to evaluate for possible bronchoscopy for mucous plugging. Patient has no hx of cancer but has stable pulmonary nodules 7mm within left upper lobe and stable mild mediastinal lympadenopathy. SHe is a former smoker quit 30 years ago and smoked for 15 years. Past Med Surg Social Fam HX - Past Medical History Medical history: arthritis, atrial fibrillation, cardiomyopathy, CHF, COPD, fibromyalgia, hypertension, myocardial infarction, osteoporosis, RA, other Psychiatric history: no psych history - Past Surgical History Surgical History: angioplasty/stent, cholecystectomy, coronary bypass (CABG), heart valve replacement, orthopedic, other - Social History Smoking Status: Former smoker Smokeless Tobacco Status: No Alcohol use: none Drug use: none - Family History Father Living Status: Hx Family Cardiac Disorders: Yes (open heart surgery) Hx Family Respiratory Disorders: No Hx Family Cancer: Yes (Liver cancer w/ mets) Hx Family GI Disorders: No Hx Family Genitourinary Disorders: No Hx Family Endocrine Disorder: No Hx Family Musculoskeletal Disorders: No Hx Family Neuromuscular Disorders: No Hx Family Neurologic Disorders: No Hx Family HEENT Disorders: No Hx Family Autoimmune Disorders: No Hx Family Reproductive Disorders: No Hx Family Psychosocial Disorders: No Hx Family Medical Disorders: No Mother Living Status: Hx Family Cardiac Disorders: No Hx Family Respiratory Disorders: Yes Hx Family Cancer: Yes (bone, lung) Hx Family GI Disorders: No Hx Family Genitourinary Disorders: No Hx Family Endocrine Disorder: No Hx Family Musculoskeletal Disorders: No Hx Family Neuromuscular Disorders: No Hx Family Neurologic Disorders: No Hx Family HEENT Disorders: No Hx Family Autoimmune Disorders: No Hx Family Reproductive Disorders: No Hx Family Psychosocial Disorders: No Hx Family Medical Disorders: No Medications and Allergies Albuterol Sulfate [Albuterol Inhaler] 1 - 2 puff IH Q4HR PRN 11/24/15 [History] Allopurinol [Zyloprim 100 MG] 100 mg PO DAILY 11/24/15 [History] Budesonide/Formoterol 160/4.5 [Symbicort 160/4.5] 2 puff IH BIDR 11/24/15 [ History] Calcium Carbonate [Calcium] 500 mg PO BID 11/24/15 [History] Cholecalciferol (D-3) [Vitamin D] 2,000 unit PO DAILY 11/24/15 [History] Fluticasone Propionate Nasal [Flonase] 50 mcg NS DAILY 11/24/15 [History] Folic Acid 1 mg PO DAILY 11/24/15 [History] Gabapentin [Neurontin] 200 mg PO HS 11/24/15 [History] Loratadine [Claritin] 10 mg PO DAILY 11/24/15 [History] Metoprolol XL (24 HR) Succ [Toprol Xl] 12.5 mg PO BID 11/24/15 [History] Montelukast [Singulair] 10 mg PO DAILY 11/24/15 [History] Nitroglycerin [Nitrostat] 0.4 mg SL Q5M PRN 11/24/15 [History] Nortriptyline [Pamelor] 10 mg PO HS 11/24/15 [History] Roflumilast [Daliresp] 500 mcg PO DAILY 11/24/15 [History] Vitamin B Complex [B Complex] 1 tab PO DAILY 11/24/15 [History] Umeclidinium [place] [Incruse Ellipta] 1 puff IH DAILY 12/17/15 [History] Atorvastatin [Lipitor] 10 mg PO HS 01/01/16 [History] Docusate Sodium [Dok] 300 mg PO BID 01/01/16 [History] Albuterol Neb [Proventil Neb] 2.5 mg IH Q4HR PRN 08/25/16 [History] Bifidobacterium Inf[place] [Align] 4 mg PO DAILY 08/25/16 [History] Oxygen 2 l IN CONT #1 each 08/26/16 [Rx] Tramadol HCl 50 - 100 mg PO QID PRN 09/13/16 [History] Warfarin [Coumadin] 5 mg PO TUWE 09/13/16 [History] Warfarin [Coumadin] 7.5 mg PO SUMOTHFRSA 09/25/16 [History] Esomeprazole Magnesium [Nexium] 40 mg PO DAILY #30 capsule. 10/03/16 [Rx] Furosemide [Lasix] 40 mg PO BID #60 tablet 10/03/16 [Rx] Potassium Chloride [K-Tab ER] 20 meq PO DAILY #30 tablet.er 10/03/16 [Rx] PredniSONE 10 mg PO DAILY 20 Days 10/03/16 [Rx] Acetylcysteine [H-Lcsjat-q-Cysteine] 600 mg PO BID 10/08/16 [History] Allergies ceftriaxone [From Rocephin] Allergy (Severe, Verified 08/25/16 08:19) Hives ciprofloxacin [From Cipro HC] Allergy (Severe, Verified 08/25/16 08:19) Hives levofloxacin [From Levaquin] Allergy (Severe, Verified 08/25/16 08:19) Hives vancomycin Allergy (Severe, Verified 08/25/16 08:19) Rash hydrocortisone [From Cipro HC] Allergy (Intermediate, Verified 08/25/16 08:19) Hives All Systems: A 10-system review of systems was performed and is negative for pertinent findings except as documented above in the HPI. - Constitutional Constitutional: fatigue, weakness, no chills, no fever(s) - EENT Nose, mouth and throat: no dizziness, no sore throat - Cardiovascular Cardiovascular: dyspnea, dyspnea on exertion, edema, leg edema, orthopnea, no chest pain, no diaphoresis - Respiratory Respiratory: cough, dyspnea, chest congestion, excessive phlegm production - Gastrointestinal Gastrointestinal: no abdominal pain, no cramping, no diarrhea - Genitourinary Genitourinary: no difficulty urinating - Musculoskeletal Musculoskeletal: weakness, back pain - Neurological Neurological: no numbness, no tingling Physical Examination Vital Signs: Vital Signs, Last 4 Hours Temp Pulse Resp BP Pulse Ox 10/09/16 11:12 17 99 10/09/16 10:35 98.0 F 98 17 113/72 99 General appearance: no acute distress, alert Eyes: nonicteric ENT: oropharynx moist Mallampati (class): 2 Neck: no lymphadenopathy Effort: normal Inspection: kyphosis Auscultation: bilateral: diminished breath sounds Percussion: bilateral: dull Cardiovascular: regular rate and rhythm Gastrointestinal: normoactive bowel sounds, soft, non-tender, non-distended Integumentary: normal Extremities: no cyanosis, pink and warm, pulses normal, edema (1+), other ( clubbing b/l upper digits ) normal mental status mood appropriate, affect normal Results - Laboratory Findings CBC and BMP: 10/09/16 04:00 10/09/16 04:00 PT/INR, D-dimer PT 35.3 Seconds (9.4-12.1) H 10/08/16 12:17 Abnormal lab findings: Abnormal lab results Hgb 10.7 g/dL (11.5-15.4) L D 10/09/16 04:00 Hct 33.8 % (35.3-44.9) L 10/09/16 04:00 MCH 27.5 pg (28.0-33.3) L 10/09/16 04:00 RDW 16.9 % (11.5-14.5) H 10/09/16 04:00 Plt Count 132 K/mcL (140-400) L 10/09/16 04:00 PT 35.3 Seconds (9.4-12.1) H 10/08/16 12:17 BUN 27 mg/dL (7-20) H 10/09/16 04:00 BUN/Creatinine Ratio 33 (6-26) H 10/09/16 04:00 Glucose 58 mg/dL (70-99) L 10/09/16 04:00 Calcium 8.0 mg/dL (8.6-10.8) L 10/09/16 04:00 B-Natriuretic Peptide 104 pg/mL (0-100) H 10/08/16 12:17 - Diagnostic Findings Chest x-ray: report reviewed CT scan - chest: report reviewed - Clinical Findings Intake & Output: Intake & Output 10/08/16 10/09/16 10/09/16 23:59 07:59 15:59 Intake Total 1000 / 1000 480 / 480 Output Total 200 / 200 800 / 800 300 / 300 Balance -200 / -200 200 / 200 180 / 180 Weight 59.874 kg Consult Discharge Plan - Plan Referrals: Christoph Hughes DO [Primary Care Provider] - 10/19/16 3:30 pm <Jose Siddiqi - Last Filed: 10/10/16 00:04> Date of Encounter: 10/10/16 All Systems: A 10-system review of systems was performed and is negative for pertinent findings except as documented above in the HPI. Results - Laboratory Findings CBC and BMP: 10/09/16 04:00 10/09/16 04:00 PT/INR, D-dimer PT 25.6 Seconds (9.4-12.1) H 10/09/16 15:44 Abnormal lab findings: Abnormal lab results Hgb 10.7 g/dL (11.5-15.4) L D 10/09/16 04:00 Hct 33.8 % (35.3-44.9) L 10/09/16 04:00 MCH 27.5 pg (28.0-33.3) L 10/09/16 04:00 RDW 16.9 % (11.5-14.5) H 10/09/16 04:00 Plt Count 132 K/mcL (140-400) L 10/09/16 04:00 PT 25.6 Seconds (9.4-12.1) H 10/09/16 15:44 BUN 27 mg/dL (7-20) H 10/09/16 04:00 BUN/Creatinine Ratio 33 (6-26) H 10/09/16 04:00 Glucose 58 mg/dL (70-99) L 10/09/16 04:00 Calcium 8.0 mg/dL (8.6-10.8) L 10/09/16 04:00 B-Natriuretic Peptide 104 pg/mL (0-100) H 10/08/16 12:17 - Attending Attestation I examined this patient and my medical decision-making was reviewed with the DESIGN ENGINEER/PA/Advanced Practice Nurse/Resident Physician. I agree with the documented findings, disposition and treatment plan as described except to the extent set forth below. Patient seen and examined. Labs, radiology, chart personally reviewed. Agree with resident's history and physical, assessment, plan with following comments: NEWS WRITER: Patient follows commands, Pulmonary: Acceptable oxygenation and ventilation. Patient has mucus plugging and will plan for bronchoscopy. Explained to patient all risks, mainly bleeding , benefits and alternatives of procedure and she agreed to have it done. Patient will be on therapeutic Lovenox and hold her Coumadin for now. I'm hoping this help patient and need social worker psychiatric consult to make sure patient can take recommended inhalers and treatment for her copd. Cardiovascular: Patient understand having mechanical valve and holding anticoagulation, it put patient at risks for clot formation. Thanks for the consult will follow up.
[2016-10-09] MEDS ORDERED: Piperacillin/Tazobactam 3.375 GM in D5% in Water (Mini-Bag+) 100 ML IVPB SCH (15:00)
[2016-10-09] MEDS: Acetylcysteine 10% 2 ML INHSOL IH SCH ×3 (15:54→23:04)
[2016-10-09 16:05] LABS: INR 2.3; Prothrombin Time 25.6 Seconds (9.4-12.1)
[2016-10-09] MEDS: Piperacillin/Tazobactam 3.375 GM in D5% in Water (Mini-Bag+) 100 ML IVPB SCH (17:12)
[2016-10-09] MEDS: MethylPREDNISolone 40 MG/ML VIAL IVP SCH (17:12)
[2016-10-09] MEDS: *HR* Enoxaparin 60 MG/0.6 ML SYRINGE SQ SCH (17:13)
[2016-10-09] MEDS ORDERED: *HR* Warfarin 5 MG TABLET PO SCH (18:00)
[2016-10-09] MEDS ORDERED: *HR* Enoxaparin 60 MG/0.6 ML SYRINGE SQ SCH (18:00)
[2016-10-09 18:27] LABS: Adenovirus Not Detected (Not Detect); Bordetella Pertussis Not Detected (Not Detect); Chlamydophila pneumoniae Not Detected (Not Detect); Coronavirus 229E Not Detected (Not Detect); Coronavirus HKU1 Not Detected (Not Detect); Coronavirus NL63 Not Detected (Not Detect); Coronavirus OC43 Not Detected (Not Detect); Human Metapneumovirus Not Detected (Not Detect); Human Rhinovirus/Enterovirus Not Detected (Not Detect); Influenza A Subtype 2009 H1 Not Detected (Not Detect); Influenza A Untypeable Not Detected (Not Detect); Influenza B Not Detected (Not Detect); Parainfluenza Virus 1 Not Detected (Not Detect); Parainfluenza Virus 2 Not Detected (Not Detect); Parainfluenza Virus 3 Not Detected (Not Detect); Parainfluenza Virus 4 Not Detected (Not Detect); Respiratory Syncytial Virus Not Detected (Not Detect)
[2016-10-09 18:28] LABS: Mycoplasma pneumoniae Not Detected (Not Detect)
[2016-10-09] MEDS: Gabapentin 100 MG CAPSULE PO SCH (21:09)
[2016-10-10] MEDS: MethylPREDNISolone 40 MG/ML VIAL IVP SCH ×4 (00:04→23:49)
[2016-10-10] MEDS: Piperacillin/Tazobactam 3.375 GM in D5% in Water (Mini-Bag+) 100 ML IVPB SCH ×4 (00:04→23:49)
[2016-10-10] MEDS: Acetylcysteine 10% 2 ML INHSOL IH SCH ×6 (03:51→23:13)
[2016-10-10] MEDS: Ipratropium/Albuterol Neb 3 ML IH SCH ×6 (03:51→23:13)
[2016-10-10 04:50] LABS: Basophils % 0.1 %; Hematocrit 37.9 % (35.3-44.9); Hemoglobin 11.9 g/dL (11.5-15.4); Lymphocytes # 0.5 K/mcL (0.6-4.6); Lymphocytes % 4.8 %; Mean Corpuscular HGB Conc 31.4 g/dL (31.6-35.5); Mean Corpuscular Hemoglobin 27.5 pg (28.0-33.3); Mean Corpuscular Volume 87.5 fL (83.0-100.0); Mean Platelet Volume 10.8 fL (9.4-12.4); Monocytes # 0.3 K/mcL (0.0-1.3); Monocytes % 3.4 %; Neutrophils # 8.9 K/mcL (1.6-8.9); Platelet Count 131 K/mcL (140-400); Red Blood Count 4.33 M/mcL (3.82-4.97); Segmented Neutrophils % 90.7 %
[2016-10-10 04:56] LABS: INR 1.7; Prothrombin Time 18.8 Seconds (9.4-12.1)
[2016-10-10 05:06] LABS: Calcium 8.5 mg/dL (8.6-10.8); Potassium 3.9 mEq/L (3.5-4.5)
[2016-10-10] MEDS ORDERED: *HR* Enoxaparin 40 MG/0.4 ML SYRINGE SQ SCH (07:00)
[2016-10-10] MEDS ORDERED: Lidocaine Viscous Oral Soln 15 ML SOLUTION ONE (07:29)
[2016-10-10] MEDS ORDERED: *HR* FentaNYL (PF) 100 MCG/2 ML VIAL ONE (07:29)
[2016-10-10] MEDS ORDERED: *HR* Midazolam HCl 5 MG/5 ML VIAL IVP ONE (07:29)
[2016-10-10] MEDS ORDERED: *HR* EPINEPHrine 1 MG/10 ML SYRINGE INTRATRACH PRN (07:33)
[2016-10-10] MEDS: Budesonide/Formoterol 160/4.5 MDI IH SCH ×2 (07:33→19:50)
[2016-10-10] MEDS ORDERED: Tetracaine/Benzocaine/Butamben 200MG/SPRAY (100SPY/BOT) MM ONE (07:33)
[2016-10-10] MEDS ORDERED: *HR* Midazolam HCl 5 MG/5 ML VIAL IVP PRN (07:33)
[2016-10-10] MEDS ORDERED: Lidocaine Viscous Oral Soln 15 ML SOLUTION MM ONE (07:33)
--- NOTE | 2016-10-10 07:33 | Pre-Sedation Evaluation ---
Pre-sedation evaluation - Pre-sedation checklist Date of procedure: 10/10/16 Procedure: bronch Recent Vitals: Last Vital Signs Temp 97.9 F 10/10/16 07:27 Pulse 86 10/10/16 07:27 Resp 15 10/10/16 07:27 BP 107/54 10/10/16 07:27 Pulse Ox 92 10/10/16 07:27 H&P (including ROS) documented in medical record: Yes Previous reaction to sedatives/anesthetics: No Dietary Status: NPO after Midnight Dentition: dentures removed Possible difficult airway: No ASA Classification *see protocol: CLASS III-Severe systemic disease Plan of Care: Pt appropriate candidate for procedure/moderate/conscious sedation , Risks/benefits of procedure/sedation discussed w/ patient/family
[2016-10-10] MEDS ORDERED: 0.9 % Sodium Chloride 1,000 ML IVC SCH (07:45)
[2016-10-10] MEDS: *HR* FentaNYL (PF) 100 MCG/2 ML VIAL IVP PRN ×2 (07:59→08:14)
[2016-10-10] MEDS ORDERED: Albuterol 2.5 MG/3 ML NEBULIZER IH ONE (08:08)
[2016-10-10] MEDS ORDERED: Albuterol 2.5 MG/3 ML NEBULIZER ONE (08:08)
[2016-10-10] MEDS: (Roflumilast [Daliresp] 500 MCG) PO SCH (09:50)
[2016-10-10] MEDS: (Umeclidinium Bromide [Incruse Ellipta] 1 PUFF) IH SCH (09:51)
[2016-10-10] MEDS: Cholecalciferol (D-3) 1,000 UNIT TABLET PO SCH (09:56)
[2016-10-10] MEDS: Folic Acid 1 MG TABLET PO SCH (09:57)
[2016-10-10] MEDS: Loratadine 10 MG TABLET PO SCH (09:57)
[2016-10-10] MEDS: Furosemide 40 MG TABLET PO SCH ×2 (09:57→22:01)
[2016-10-10] MEDS: Vitamin B Complex/Vit C/Vit E 1 EACH TABLET PO SCH (09:57)
[2016-10-10] MEDS: Metoprolol XL (24 HR) Succ 25 MG TAB.ER.24H PO SCH ×2 (09:58→22:01)
[2016-10-10] MEDS: Fluticasone Propionate Nasal 50 MCG/SPRAY BOTTLE NS SCH (09:58)
[2016-10-10] MEDS: traMADol 50 MG TABLET PO PRN ×3 (10:02→22:00)
[2016-10-10 11:26] LABS: Appearance of Body Fluid Cloudy (Clear); Volume of Body Fluid 10 mL
--- NOTE | 2016-10-10 12:17 | Internal Med Progress Note ---
Date of Encounter: 10/10/16 Time of Encounter: 09:30 - Assessment and plan (1) Acute exacerbation of chronic obstructive pulmonary disease (COPD) Current Visit: No Status: Acute Assessment and plan: Much improved today. Status post bronchoscopy from yesterday. Per endoscopy report, copious secretions were noted with partially obstruction dynamic collapse of the trachea, mucous plugs in the right lower lobe. BAL performed a left lower lobe. Patient states she feels much better today. On examination, respirations are less labored and aeration has improved from yesterday. She remains with fair to good aeration and coarse rales noted bilateral lower lobes. She is much more alert and interactive. For some reason her ordered CPAP was not delivered, we will ensure's delivery today and have her use it tonight. We will continue Zosyn. Continue current plan of care. ITS Impressions Chest X-Ray 10/08/16 12:06 IMPRESSION: Bibasilar airspace disease and small pleural effusions, mildly worsened. No new infiltrate. COPD. D/ / Elmer Lopez MD / Elmer Lopez MD Interpreting Provider: Elmer Lopez MD Chest CT 10/09/16 16:00 IMPRESSION: 1. Stable consolidation in the right lower lobe suspected to represent pneumonia. 2. Mucous plugging is observed in both lower lobes with near complete atelectasis of the left lower lobe, slightly improved from prior exam. 3. Centrilobular emphysema with 2 stable pulmonary nodules dating back over period of at least 2 years. RECOMMENDATIONS: Fleischner Society guidelines for follow-up and management of incidentally detected pulmonary nodules: Single Solid Nodule: Nodule size less than 6 mm In a low-risk patient, no routine follow-up. In a high-risk patient, optional CT at 12 months. Nodule size equals 6-8 mm In a low-risk patient, CT at 6-12 months, then consider CT at 18-24 months. In a high-risk patient, CT at 6-12 months, then CT at 18-24 months. Nodule size greater than 8 mm In a low-risk patient, consider CT, PET/CT, or tissue sampling at 3 months. In a high-risk patient, consider CT, PET/CT, or tissue sampling at 3 months. Multiple Solid Nodules: Nodule size less than 6 mm In a low-risk patient, no routine follow-up. In a high-risk patient, optional CT at 12 months. Nodule size equals 6-8 mm In a low-risk patient, CT at 3-6 months, then consider CT at 18-24 months. In a high-risk patient, CT at 3-6 months, then CT at 18-24 months. Nodule size greater than 8 mm In a low-risk patient, CT at 3-6 months, then consider CT at 18-24 months. In a high-risk patient, CT at 3-6 months, then CT at 18-24 months. - Low risk patients include individuals with minimal or absent history of smoking and other known risk factors. - High risk patients include individuals with a history or smoking or known risk factors. Radiology 2017 http://pubs.rsna.org/doi/full/10.1148/radiol.[email or web address] D/ / Liu Escobar MD / Liu Escobar MD Interpreting Provider: Liu Escobar MD Bronchoscopy impression: Bilateral atelectasis. Mucous plug. Abnormal CT scan of the chest. Copious, mucopurulent secretions were found throughout the tracheobronchial tree. Dynamic collapse was found in the trachea. A mucous plug was found in the right lower lobe. Bronchial alveolar lavage was performed. Recommendation: Await BAL results. Bronchial hygiene. 10/09/16 Patient has had several recent admissions for the same. This is her fourth admission in 3 months. Chest x-ray consistent with COPD. She has had increased need for supplemental oxygenation. Of note, patient was on CPAP at home and use it every night when she was asleep for 7 years but her insurance changed and she is no longer able to afford her CPAP. She has not used since July which could likely be a contributing factor for frequent readmissions since the beginning of this year. We will order CPAP while she is here and bring high school social studies tutor on board to hopefully assist with resources. We will also bring pulmonology on board due to her frequent readmissions. Last admission, she was noted to have mucus plugging and collapse of her left lower lobe. Initially, we are going to proceed with a bronchoscopy however we chose to hold off as her INR was elevated and she also had influenza. Possible bronchoscopy this admission, we will hold Coumadin and placed on Lovenox. We will repeat a chest CT. (2) Mucus plugging of bronchi Current Visit: Yes Status: Acute Assessment and plan: Acute on chronic. Status post BAL. Continue to follow BAL results. Continue Zosyn. Aeration has improved after her bronchoscopy. Resuming her Coumadin with Lovenox bridge (3) Hypertension Current Visit: No Status: Chronic Assessment and plan: Controlled. At home, patient is on metoprolol XL 12.5 mg twice a day, furosemide 40 mg twice a day and these both have been continued. We will continue to trend. Qualifiers: Hypertension type: essential hypertension Qualified Code(s): I10 - Essential (primary) hypertension (4) H/O mitral valve replacement with mechanical valve Current Visit: No Status: Chronic Assessment and plan: INR slightly subtherapeutic, Coumadin resumed, Lovenox bridge (5) DVT prophylaxis Current Visit: No Status: Acute Assessment and plan: On Coumadin with Lovenox bridge (6) Acute and chronic respiratory failure Current Visit: Yes Status: Acute Assessment and plan: Acute on chronic. At home, patient is on 2 L per nasal cannula continuously. Currently tolerating 2 L, will continue to trend. Again, CPAP was ordered, will ensure she has it for tonight. Qualifiers: Respiratory failure complication: hypoxia Qualified Code(s): J96.21 - Acute and chronic respiratory failure with hypoxia (7) Diastolic heart failure Current Visit: No Status: Chronic Assessment and plan: She is euvolemic on examination. We will continue to monitor. Chronic diastolic heart failure. Qualifiers: Heart failure chronicity: chronic Qualified Code(s): I50.32 - Chronic diastolic (congestive) heart failure (8) Anxiety Current Visit: No Status: Chronic (9) Leukocytosis Current Visit: No Status: Resolved Qualifiers: Leukocytosis type: unspecified Qualified Code(s): D72.829 - Elevated white blood cell count, unspecified (10) COPD (chronic obstructive pulmonary disease) Current Visit: No Status: Chronic Qualifiers: COPD type: unspecified COPD Qualified Code(s): J44.9 - Chronic obstructive pulmonary disease, unspecified (11) Atrial fibrillation Current Visit: No Status: Chronic Assessment and plan: Rate controlled, on Coumadin with Lovenox bridge Qualifiers: Atrial fibrillation type: chronic Qualified Code(s): I48.2 - Chronic atrial fibrillation (12) Anticoagulated on Coumadin Current Visit: No Status: Chronic (13) Physical deconditioning Current Visit: Yes Status: Acute Assessment and plan: Acute on chronic and likely related to her advancing COPD. PT surmised she has no needs. Pulmonology rehabilitation also on board. (14) CKD (chronic kidney disease) stage 3, GFR 30-59 ml/min Current Visit: Yes Status: Chronic Assessment and plan: It appears as if the patient had acute kidney injury overnight however current values are more consistent with her baseline. We will continue to trend. - Subjective Interval history: Patient seen and examined. On examination, patient sitting upright in bed watching television. Patient stating she feels a lot better today. She states that she is less short of breath and feels that her coughing has lessened. She is endorsing a normal appetite. - Constitutional Vitals: Temp Pulse Resp BP Pulse Ox 98.1 F 97 15 132/85 97 10/10/16 10:39 10/10/16 10:39 10/10/16 10:39 10/10/16 10:39 10/10/16 10:39 General appearance: Present: mild distress, A&O X 3, pleasant, answers questions appropriately - Head Head exam: Present: atraumatic, normocephalic - Eye Eye exam: Present: PERRL, conjuntiva pink, sclera anicteric Pupils: Present: PERRL - Neck Neck exam general surgery: Present: supple, trachea midline. Absent: lymphadenopathy - Respiratory Respiratory exam: Present: accessory muscle use, rales, respiratory distress ( mild). Absent: CTAB, rhonchi, wheezes - Cardiovascular Cardiovascular exam: Present: RRR, +S1, +S2. Absent: diastolic murmur, gallop, rubs, systolic murmur - GI/Abdominal GI/Abdominal exam: Present: normal bowel sounds, soft, no peritoneal signs. Absent: distended, tenderness - Extremities Exam Extremities exam: Present: warm, radial pulses palpable and symetrical. Absent : calf tenderness, cyanotic, pedal edema - Neurological Exam Neurological exam: Present: alert, CN II-XII intact, normal gait, oriented X3, no focal deficits, strengths equal and symetr throughout. Absent: pronater drift, facial droop, speech deficit - Skin Skin exam: Present: dry, intact, normal color, warm Internal Medicine: Result - Labs CBC & Chem 7: 10/10/16 04:40 10/10/16 04:40 Labs: Short CBC 10/10/16 Range/Units 04:40 WBC 9.9 (4.3-11.1) K/mcL Hgb 11.9 (11.5-15.4) g/dL Hct 37.9 (35.3-44.9) % Plt Count 131 L (140-400) K/mcL Neutrophils # 8.9 (1.6-8.9) K/mcL BMP 10/10/16 04:40 Sodium 141 Potassium 3.9 Chloride 104 Carbon Dioxide 29 BUN 29 H Creatinine 1.25 H D Glucose 167 H Calcium 8.5 L - ABG Interpretation ABG results: PT/INR, D-dimer PT 18.8 Seconds (9.4-12.1) H 10/10/16 04:40 Consult Discharge Plan - Plan Referrals: Christoph Hughes DO [Primary Care Provider] - 10/19/16 3:30 pm
[2016-10-10] MEDS: *HR* Enoxaparin 60 MG/0.6 ML SYRINGE SQ SCH (12:29)
[2016-10-10] MEDS ORDERED: *HR* Warfarin 7.5 MG TABLET PO ONE (18:00)
[2016-10-10] MEDS ORDERED: Warfarin perPT PO PRN (18:00)
[2016-10-10] MEDS: Gabapentin 100 MG CAPSULE PO SCH (22:02)
[2016-10-11 04:14] LABS: INR 1.2; Prothrombin Time 13.2 Seconds (9.4-12.1)
[2016-10-11] MEDS: Acetylcysteine 10% 2 ML INHSOL IH SCH ×6 (04:24→23:39)
[2016-10-11] MEDS: Ipratropium/Albuterol Neb 3 ML IH SCH ×6 (04:24→23:39)
[2016-10-11 07:27] LABS: Calcium 9.7 mg/dL (8.6-10.8); Potassium 3.9 mEq/L (3.5-4.5)
[2016-10-11] MEDS: Budesonide/Formoterol 160/4.5 MDI IH SCH ×2 (07:36→20:03)
[2016-10-11] MEDS: Cholecalciferol (D-3) 1,000 UNIT TABLET PO SCH (09:33)
[2016-10-11] MEDS: Furosemide 40 MG TABLET PO SCH ×2 (09:33→20:52)
[2016-10-11] MEDS: Loratadine 10 MG TABLET PO SCH (09:33)
[2016-10-11] MEDS: Vitamin B Complex/Vit C/Vit E 1 EACH TABLET PO SCH (09:33)
[2016-10-11] MEDS: traMADol 50 MG TABLET PO PRN (09:34)
[2016-10-11] MEDS: Folic Acid 1 MG TABLET PO SCH (09:34)
[2016-10-11] MEDS: MethylPREDNISolone 40 MG/ML VIAL IVP SCH ×2 (09:35→17:47)
[2016-10-11] MEDS: Metoprolol XL (24 HR) Succ 25 MG TAB.ER.24H PO SCH ×2 (09:35→20:52)
[2016-10-11] MEDS: Piperacillin/Tazobactam 3.375 GM in D5% in Water (Mini-Bag+) 100 ML IVPB SCH ×2 (09:35→17:49)
[2016-10-11] MEDS: (Roflumilast [Daliresp] 500 MCG) PO SCH (10:00)
[2016-10-11] MEDS: (Umeclidinium Bromide [Incruse Ellipta] 1 PUFF) IH SCH (10:00)
[2016-10-11] MEDS: Fluticasone Propionate Nasal 50 MCG/SPRAY BOTTLE NS SCH (10:01)
--- NOTE | 2016-10-11 10:56 | Pulmonology Progress Note ---
Date of Encounter: 10/11/16 Time of Encounter: 09:10 Assessment and Plan (1) Pneumonia Current Visit: No Status: Acute Continue current antibiotic and follow up on culture and sensitivity from the BAL from bronchoscopy. Patient has multiple allergies to different antibiotics. Qualifiers: Pneumonia type: due to unspecified organism Laterality: right Lung location: lower lobe of lung Qualified Code(s): J18.1 - Lobar pneumonia, unspecified organism (2) Acute and chronic respiratory failure Current Visit: Yes Status: Suspected Wean off FiO2 to keep his PO2 around 92% Qualifiers: Respiratory failure complication: hypoxia Qualified Code(s): J96.21 - Acute and chronic respiratory failure with hypoxia (3) Mucus plugging of bronchi Current Visit: Yes Status: Resolved Status post bronchoscopy and continue pulmonary hygiene with incentive spirometry/acapella. (4) COPD exacerbation Current Visit: No Status: Resolved Recurrent exacerbation due to not being able to afford treatment and case management social worker follow-up. This was discussed with primary team. (5) KYLIE (obstructive sleep apnea) Current Visit: Yes Status: Chronic Patient on CPAP as outpatient and not able to afford it. BiPAP is acceptable to use it while she is in the hospital. extension worker to evaluate. Subjective Principal diagnosis: Recurrent pneumonia Interval history: Patient is feeling better today after bronchoscopy and denies any complaints Objective PUL Vital signs: Last Vital Signs Temp 97.6 F 10/11/16 07:27 Pulse 87 10/11/16 07:27 Resp 16 10/11/16 07:38 BP 132/88 10/11/16 07:27 Pulse Ox 98 10/11/16 07:38 General appearance: no acute distress Eyes: nonicteric ENT: oropharynx moist Neck: supple Effort: normal Auscultation: bilateral: diminished breath sounds Percussion: bilateral: not dull Cardiovascular: regular rate and rhythm, murmur noted Gastrointestinal: normoactive bowel sounds, non-distended Extremities: no cyanosis normal mental status, non-focal exam mood appropriate Results - Laboratory Findings CBC and BMP: 10/10/16 04:40 10/11/16 05:04 PT/INR, D-dimer PT 13.2 Seconds (9.4-12.1) H 10/11/16 04:05 Abnormal lab findings: Abnormal lab results MCH 27.5 pg (28.0-33.3) L 10/10/16 04:40 MCHC 31.4 g/dL (31.6-35.5) L 10/10/16 04:40 RDW 17.0 % (11.5-14.5) H 10/10/16 04:40 Plt Count 131 K/mcL (140-400) L 10/10/16 04:40 Lymphocytes # 0.5 K/mcL (0.6-4.6) L 10/10/16 04:40 PT 13.2 Seconds (9.4-12.1) H 10/11/16 04:05 BUN 38 mg/dL (7-20) H 10/11/16 05:04 Creatinine 1.43 mg/dL (0.57-1.11) H 10/11/16 05:04 Est GFR ( Amer) 44 (> 60) L 10/11/16 05:04 Est GFR (Non-Af Amer) 36 (> 60) L 10/11/16 05:04 BUN/Creatinine Ratio 27 (6-26) H 10/11/16 05:04 Glucose 138 mg/dL (70-99) H 10/11/16 05:04 B-Natriuretic Peptide 104 pg/mL (0-100) H 10/08/16 12:17 Fluid Appearance Cloudy (Clear) A 10/10/16 08:38 - Microbiology Findings Microbiology Findings: Microbiology, Last 48 Hours 10/10/16 08:38 Gram Stain - Final Left Lower Lobe Lung - Clinical Findings Intake & Output: Intake & Output 10/10/16 10/11/16 10/11/16 23:59 07:59 15:59 Intake Total 840 / 840 600 / 600 120 / 120 Output Total 600 / 600 1000 / 1000 Balance 840 / 840 0 / 0 -880 / -880 Weight 59.874 kg Consult Discharge Plan - Plan Referrals: Christoph Hughes DO [Primary Care Provider] - 10/19/16 3:30 pm
--- NOTE | 2016-10-11 13:35 | Internal Med Progress Note ---
Date of Encounter: 10/11/16 Time of Encounter: 10:30 - Assessment and plan (1) Acute exacerbation of chronic obstructive pulmonary disease (COPD) Current Visit: No Status: Acute Assessment and plan: Patient continues to improve and remained stable. She has diffuse expiratory wheezing with fair to good aeration. No coarse breath sounds present on examination. We will continue Zosyn. Awaiting bronchoscopy BAL cultures. She wore BiPAP last night and states she cannot tell difference or treated BiPAP versus CPAP. Spoke to Dr. Siddiqi this morning as he wrote for CPAP for her. He states that the sleep study indicated that it was her KYLIE that was causing her desaturations and not her COPD since he states that CPAP would be more appropriate for this patient. We will continue to assist her to get resources said that she can have her replacement parts and start using her CPAP again. Of note, she has changed oxygen companies, oncology social worker on board. Possible discharge tomorrow pending clinical outcomes. This is her fourth admission in 6 weeks. 10/10/16 Much improved today. Status post bronchoscopy from yesterday. Per endoscopy report, copious secretions were noted with partially obstruction dynamic collapse of the trachea, mucous plugs in the right lower lobe. BAL performed a left lower lobe. Patient states she feels much better today. On examination, respirations are less labored and aeration has improved from yesterday. She remains with fair to good aeration and coarse rales noted bilateral lower lobes. She is much more alert and interactive. For some reason her ordered CPAP was not delivered, we will ensure's delivery today and have her use it tonight. We will continue Zosyn. Continue current plan of care. ITS Impressions Chest X-Ray 10/08/16 12:06 IMPRESSION: Bibasilar airspace disease and small pleural effusions, mildly worsened. No new infiltrate. COPD. D/ / Elmer Lopez MD / Elmer Lopez MD Interpreting Provider: Elmer Lopez MD Chest CT 10/09/16 16:00 IMPRESSION: 1. Stable consolidation in the right lower lobe suspected to represent pneumonia. 2. Mucous plugging is observed in both lower lobes with near complete atelectasis of the left lower lobe, slightly improved from prior exam. 3. Centrilobular emphysema with 2 stable pulmonary nodules dating back over period of at least 2 years. RECOMMENDATIONS: Fleischner Society guidelines for follow-up and management of incidentally detected pulmonary nodules: Single Solid Nodule: Nodule size less than 6 mm In a low-risk patient, no routine follow-up. In a high-risk patient, optional CT at 12 months. Nodule size equals 6-8 mm In a low-risk patient, CT at 6-12 months, then consider CT at 18-24 months. In a high-risk patient, CT at 6-12 months, then CT at 18-24 months. Nodule size greater than 8 mm In a low-risk patient, consider CT, PET/CT, or tissue sampling at 3 months. In a high-risk patient, consider CT, PET/CT, or tissue sampling at 3 months. Multiple Solid Nodules: Nodule size less than 6 mm In a low-risk patient, no routine follow-up. In a high-risk patient, optional CT at 12 months. Nodule size equals 6-8 mm In a low-risk patient, CT at 3-6 months, then consider CT at 18-24 months. In a high-risk patient, CT at 3-6 months, then CT at 18-24 months. Nodule size greater than 8 mm In a low-risk patient, CT at 3-6 months, then consider CT at 18-24 months. In a high-risk patient, CT at 3-6 months, then CT at 18-24 months. - Low risk patients include individuals with minimal or absent history of smoking and other known risk factors. - High risk patients include individuals with a history or smoking or known risk factors. Radiology 2017 http://pubs.rsna.org/doi/full/10.1148/radiol.[email or web address] D/ / Liu Escobar MD / Liu Escobar MD Interpreting Provider: Liu Escobar MD Bronchoscopy impression: Bilateral atelectasis. Mucous plug. Abnormal CT scan of the chest. Copious, mucopurulent secretions were found throughout the tracheobronchial tree. Dynamic collapse was found in the trachea. A mucous plug was found in the right lower lobe. Bronchial alveolar lavage was performed. Recommendation: Await BAL results. Bronchial hygiene. 10/09/16 Patient has had several recent admissions for the same. This is her fourth admission in 3 months. Chest x-ray consistent with COPD. She has had increased need for supplemental oxygenation. Of note, patient was on CPAP at home and use it every night when she was asleep for 7 years but her insurance changed and she is no longer able to afford her CPAP. She has not used since July which could likely be a contributing factor for frequent readmissions since the beginning of this year. We will order CPAP while she is here and bring oncology social worker on board to hopefully assist with resources. We will also bring pulmonology on board due to her frequent readmissions. Last admission, she was noted to have mucus plugging and collapse of her left lower lobe. Initially, we are going to proceed with a bronchoscopy however we chose to hold off as her INR was elevated and she also had influenza. Possible bronchoscopy this admission, we will hold Coumadin and placed on Lovenox. We will repeat a chest CT. (2) Mucus plugging of bronchi Current Visit: Yes Status: Resolved Assessment and plan: Acute on chronic. Status post BAL. Continue to follow BAL results. Continue Zosyn. Aeration has improved after her bronchoscopy. Resumed her Coumadin with Lovenox bridge (3) Hypertension Current Visit: No Status: Chronic Assessment and plan: Controlled. At home, patient is on metoprolol XL 12.5 mg twice a day, furosemide 40 mg twice a day and these both have been continued. We will continue to trend. Qualifiers: Hypertension type: essential hypertension Qualified Code(s): I10 - Essential (primary) hypertension (4) H/O mitral valve replacement with mechanical valve Current Visit: No Status: Chronic Assessment and plan: Coumadin resumed yesterday. Lovenox bridge INR subtherapeutic at 1.2. Continue Lovenox bridge. (5) DVT prophylaxis Current Visit: No Status: Acute Assessment and plan: On Coumadin with Lovenox bridge (6) Acute and chronic respiratory failure Current Visit: Yes Status: Suspected Assessment and plan: Acute on chronic. At home, patient is on 2 L per nasal cannula continuously. Currently tolerating 2 L, will continue to trend. She tolerated BiPAP well last night. Qualifiers: Respiratory failure complication: hypoxia Qualified Code(s): J96.21 - Acute and chronic respiratory failure with hypoxia (7) Diastolic heart failure Current Visit: No Status: Chronic Assessment and plan: She is euvolemic on examination. We will continue to monitor. Chronic diastolic heart failure. Qualifiers: Heart failure chronicity: chronic Qualified Code(s): I50.32 - Chronic diastolic (congestive) heart failure (8) Anxiety Current Visit: No Status: Chronic (9) Leukocytosis Current Visit: No Status: Resolved Qualifiers: Leukocytosis type: unspecified Qualified Code(s): D72.829 - Elevated white blood cell count, unspecified (10) COPD (chronic obstructive pulmonary disease) Current Visit: No Status: Chronic Qualifiers: COPD type: unspecified COPD Qualified Code(s): J44.9 - Chronic obstructive pulmonary disease, unspecified (11) Atrial fibrillation Current Visit: No Status: Chronic Assessment and plan: Rate controlled, on Coumadin with Lovenox bridge Qualifiers: Atrial fibrillation type: chronic Qualified Code(s): I48.2 - Chronic atrial fibrillation (12) Anticoagulated on Coumadin Current Visit: No Status: Chronic (13) Physical deconditioning Current Visit: Yes Status: Acute Assessment and plan: Acute on chronic and likely related to her advancing COPD. PT surmised she has no needs. Pulmonology rehabilitation also on board. (14) CKD (chronic kidney disease) stage 3, GFR 30-59 ml/min Current Visit: Yes Status: Chronic Assessment and plan: Mild acute kidney injury superimposed on chronic kidney disease stage III. The patient has good by mouth intake, we will continue to trend. No indication for IV fluids at this time. - Subjective Interval history: Patient seen and examined. On examination, patient sitting upright in her chair. She states she feels really good right now. She states her shortness of breath has much improved but she states she is no more back to her baseline from prior to these last couple months. She states she is eating well. She states she is ambulatory about the room without his much shortness of breath with exertion as she had on the last several months. - Constitutional Vitals: Temp Pulse Resp BP Pulse Ox 98.0 F 56 18 115/85 98 10/11/16 11:14 10/11/16 11:14 10/11/16 11:25 10/11/16 11:14 10/11/16 11:25 General appearance: Present: mild distress (baseline), A&O X 3, pleasant, answers questions appropriately - Head Head exam: Present: atraumatic, normocephalic - Eye Eye exam: Present: PERRL, conjuntiva pink, sclera anicteric Pupils: Present: PERRL - Neck Neck exam general surgery: Present: supple, trachea midline. Absent: lymphadenopathy - Respiratory Respiratory exam: Present: accessory muscle use, decreased breath sounds, respiratory distress (mild; baseline), wheezes. Absent: CTAB, rales, rhonchi - Cardiovascular Cardiovascular exam: Present: RRR, +S1, +S2. Absent: diastolic murmur, gallop, rubs, systolic murmur - GI/Abdominal GI/Abdominal exam: Present: normal bowel sounds, soft, no peritoneal signs. Absent: distended, tenderness - Extremities Exam Extremities exam: Present: warm, radial pulses palpable and symetrical. Absent : calf tenderness, cyanotic, pedal edema - Neurological Exam Neurological exam: Present: alert, CN II-XII intact, normal gait, oriented X3, no focal deficits, strengths equal and symetr throughout. Absent: pronater drift, facial droop, speech deficit - Skin Skin exam: Present: dry, intact, normal color, warm Internal Medicine: Result - Labs CBC & Chem 7: 10/10/16 04:40 10/11/16 05:04 Labs: BMP 10/11/16 05:04 Sodium 139 Potassium 3.9 Chloride 102 Carbon Dioxide 24 BUN 38 H Creatinine 1.43 H Glucose 138 H Calcium 9.7 - ABG Interpretation ABG results: PT/INR, D-dimer PT 13.2 Seconds (9.4-12.1) H 10/11/16 04:05 Consult Discharge Plan - Plan Referrals: Christoph Hughes DO [Primary Care Provider] - 10/19/16 3:30 pm
[2016-10-11] MEDS: *HR* Enoxaparin 60 MG/0.6 ML SYRINGE SQ SCH (17:45)
[2016-10-11] MEDS ORDERED: *HR* Warfarin 7.5 MG TABLET PO SCH (18:00)
[2016-10-11] MEDS: Nystatin SUSP 5 ML UD.LIQ PO SCH (20:52)
[2016-10-11] MEDS: Gabapentin 100 MG CAPSULE PO SCH (20:52)
[2016-10-12] MEDS: MethylPREDNISolone 40 MG/ML VIAL IVP SCH ×4 (03:02→23:27)
[2016-10-12] MEDS: Piperacillin/Tazobactam 3.375 GM in D5% in Water (Mini-Bag+) 100 ML IVPB SCH ×3 (03:02→18:01)
[2016-10-12] MEDS: Ipratropium/Albuterol Neb 3 ML IH SCH ×6 (04:37→23:44)
[2016-10-12] MEDS: Acetylcysteine 10% 2 ML INHSOL IH SCH ×6 (04:37→23:44)
[2016-10-12 07:27] LABS: INR 1.8; Prothrombin Time 19.2 Seconds (9.4-12.1)
[2016-10-12] MEDS: Budesonide/Formoterol 160/4.5 MDI IH SCH ×2 (07:37→19:57)
[2016-10-12 07:43] LABS: Calcium 9.5 mg/dL (8.6-10.8); Potassium 4.3 mEq/L (3.5-4.5)
[2016-10-12] MEDS ORDERED: 0.9 % Sodium Chloride 1,000 ML ONE (08:58)
[2016-10-12] MEDS ORDERED: 0.9 % Sodium Chloride 1,000 ML IVC SCH (09:00)
[2016-10-12] MEDS: Fluticasone Propionate Nasal 50 MCG/SPRAY BOTTLE NS SCH (09:09)
[2016-10-12] MEDS: Metoprolol XL (24 HR) Succ 25 MG TAB.ER.24H PO SCH ×2 (09:09→20:28)
[2016-10-12] MEDS: Cholecalciferol (D-3) 1,000 UNIT TABLET PO SCH (09:10)
[2016-10-12] MEDS: Vitamin B Complex/Vit C/Vit E 1 EACH TABLET PO SCH (09:11)
[2016-10-12] MEDS: Nystatin SUSP 5 ML UD.LIQ PO SCH ×4 (09:11→20:28)
[2016-10-12] MEDS: Loratadine 10 MG TABLET PO SCH (09:11)
[2016-10-12] MEDS: Folic Acid 1 MG TABLET PO SCH (09:11)
[2016-10-12] MEDS: (Roflumilast [Daliresp] 500 MCG) PO SCH (09:12)
[2016-10-12] MEDS: (Umeclidinium Bromide [Incruse Ellipta] 1 PUFF) IH SCH (09:12)
[2016-10-12] MEDS: *HR* Enoxaparin 60 MG/0.6 ML SYRINGE SQ SCH ×2 (11:34→18:00)
--- NOTE | 2016-10-12 13:44 | Internal Med Progress Note ---
Date of Encounter: 10/12/16 Time of Encounter: 10:30 - Assessment and plan (1) Acute exacerbation of chronic obstructive pulmonary disease (COPD) Current Visit: No Status: Acute Assessment and plan: Patient had an eventful night after her port was leaking and there were several attempts to place a peripheral IV. She states she did not sleep longer than about an hour or 2 and states that she feels fatigued and shortness of breath is slightly worsened today. Vital examination: She is attempting to speak to her family but she has to stop to take breaths which is new for her during this admission. Slightly decreased breath sounds on the left lower lobe, will obtain chest x-ray. Preliminary BAL results gram-negative rods, awaiting sensitivities prior to discharge. 10/11/16 Patient continues to improve and remained stable. She has diffuse expiratory wheezing with fair to good aeration. No coarse breath sounds present on examination. We will continue Zosyn. Awaiting bronchoscopy BAL cultures. She wore BiPAP last night and states she cannot tell difference or treated BiPAP versus CPAP. Spoke to Dr. Siddiqi this morning as he wrote for CPAP for her. He states that the sleep study indicated that it was her KYLIE that was causing her desaturations and not her COPD since he states that CPAP would be more appropriate for this patient. We will continue to assist her to get resources said that she can have her replacement parts and start using her CPAP again. Of note, she has changed oxygen companies, hospital social worker on board. Possible discharge tomorrow pending clinical outcomes. This is her fourth admission in 6 weeks. 10/10/16 Much improved today. Status post bronchoscopy from yesterday. Per endoscopy report, copious secretions were noted with partially obstruction dynamic collapse of the trachea, mucous plugs in the right lower lobe. BAL performed a left lower lobe. Patient states she feels much better today. On examination, respirations are less labored and aeration has improved from yesterday. She remains with fair to good aeration and coarse rales noted bilateral lower lobes. She is much more alert and interactive. For some reason her ordered CPAP was not delivered, we will ensure's delivery today and have her use it tonight. We will continue Zosyn. Continue current plan of care. ITS Impressions Chest X-Ray 10/08/16 12:06 IMPRESSION: Bibasilar airspace disease and small pleural effusions, mildly worsened. No new infiltrate. COPD. D/ / Elmer Lopez MD / Elmer Lopez MD Interpreting Provider: Elmer Lopez MD Chest CT 10/09/16 16:00 IMPRESSION: 1. Stable consolidation in the right lower lobe suspected to represent pneumonia. 2. Mucous plugging is observed in both lower lobes with near complete atelectasis of the left lower lobe, slightly improved from prior exam. 3. Centrilobular emphysema with 2 stable pulmonary nodules dating back over period of at least 2 years. RECOMMENDATIONS: Fleischner Society guidelines for follow-up and management of incidentally detected pulmonary nodules: Single Solid Nodule: Nodule size less than 6 mm In a low-risk patient, no routine follow-up. In a high-risk patient, optional CT at 12 months. Nodule size equals 6-8 mm In a low-risk patient, CT at 6-12 months, then consider CT at 18-24 months. In a high-risk patient, CT at 6-12 months, then CT at 18-24 months. Nodule size greater than 8 mm In a low-risk patient, consider CT, PET/CT, or tissue sampling at 3 months. In a high-risk patient, consider CT, PET/CT, or tissue sampling at 3 months. Multiple Solid Nodules: Nodule size less than 6 mm In a low-risk patient, no routine follow-up. In a high-risk patient, optional CT at 12 months. Nodule size equals 6-8 mm In a low-risk patient, CT at 3-6 months, then consider CT at 18-24 months. In a high-risk patient, CT at 3-6 months, then CT at 18-24 months. Nodule size greater than 8 mm In a low-risk patient, CT at 3-6 months, then consider CT at 18-24 months. In a high-risk patient, CT at 3-6 months, then CT at 18-24 months. - Low risk patients include individuals with minimal or absent history of smoking and other known risk factors. - High risk patients include individuals with a history or smoking or known risk factors. Radiology 2017 http://pubs.rsna.org/doi/full/10.1148/[email or web address] D/ / Liu Escobar MD / Liu Escobar MD Interpreting Provider: Liu Escobar MD Bronchoscopy impression: Bilateral atelectasis. Mucous plug. Abnormal CT scan of the chest. Copious, mucopurulent secretions were found throughout the tracheobronchial tree. Dynamic collapse was found in the trachea. A mucous plug was found in the right lower lobe. Bronchial alveolar lavage was performed. Recommendation: Await BAL results. Bronchial hygiene. 10/09/16 Patient has had several recent admissions for the same. This is her fourth admission in 3 months. Chest x-ray consistent with COPD. She has had increased need for supplemental oxygenation. Of note, patient was on CPAP at home and use it every night when she was asleep for 7 years but her insurance changed and she is no longer able to afford her CPAP. She has not used since July which could likely be a contributing factor for frequent readmissions since the beginning of this year. We will order CPAP while she is here and bring hospital social worker on board to hopefully assist with resources. We will also bring pulmonology on board due to her frequent readmissions. Last admission, she was noted to have mucus plugging and collapse of her left lower lobe. Initially, we are going to proceed with a bronchoscopy however we chose to hold off as her INR was elevated and she also had influenza. Possible bronchoscopy this admission, we will hold Coumadin and placed on Lovenox. We will repeat a chest CT. (2) Mucus plugging of bronchi Current Visit: Yes Status: Resolved Assessment and plan: Acute on chronic. Status post BAL. Continue to follow BAL results. Continue Zosyn. Aeration has improved after her bronchoscopy. Resumed her Coumadin with Lovenox bridge (3) Hypertension Current Visit: No Status: Chronic Assessment and plan: Controlled. At home, patient is on metoprolol XL 12.5 mg twice a day, furosemide 40 mg twice a day and these both have been continued. We will continue to trend. Qualifiers: Hypertension type: essential hypertension Qualified Code(s): I10 - Essential (primary) hypertension (4) H/O mitral valve replacement with mechanical valve Current Visit: No Status: Chronic Assessment and plan: Coumadin resumed yesterday. Lovenox bridge INR subtherapeutic at 1.8. Continue Lovenox bridge-she may need Lovenox shots at home which is going to be difficult given that she has no prescription coverage right now. environmental field services technician on board. Goal 2.5-3.5. (5) DVT prophylaxis Current Visit: No Status: Acute Assessment and plan: On Coumadin with Lovenox bridge (6) Acute and chronic respiratory failure Current Visit: Yes Status: Chronic Assessment and plan: Acute on chronic. At home, patient is on 2 L per nasal cannula continuously. Currently tolerating 2 L, will continue to trend. She tolerated BiPAP well 2 nights ago. She did not have any positive pressure overnight last night because she did not sleep very long. We will have her wear BiPAP tonight. Qualifiers: Respiratory failure complication: hypoxia Qualified Code(s): J96.21 - Acute and chronic respiratory failure with hypoxia (7) Diastolic heart failure Current Visit: No Status: Chronic Assessment and plan: She is euvolemic on examination. We will continue to monitor. Chronic diastolic heart failure. Qualifiers: Heart failure chronicity: chronic Qualified Code(s): I50.32 - Chronic diastolic (congestive) heart failure (8) Anxiety Current Visit: No Status: Chronic (9) Leukocytosis Current Visit: No Status: Resolved Qualifiers: Leukocytosis type: unspecified Qualified Code(s): D72.829 - Elevated white blood cell count, unspecified (10) COPD (chronic obstructive pulmonary disease) Current Visit: No Status: Chronic Qualifiers: COPD type: unspecified COPD Qualified Code(s): J44.9 - Chronic obstructive pulmonary disease, unspecified (11) Atrial fibrillation Current Visit: No Status: Chronic Assessment and plan: Rate controlled, on Coumadin with Lovenox bridge Qualifiers: Atrial fibrillation type: chronic Qualified Code(s): I48.2 - Chronic atrial fibrillation (12) Anticoagulated on Coumadin Current Visit: No Status: Chronic (13) Physical deconditioning Current Visit: Yes Status: Acute Assessment and plan: Acute on chronic and likely related to her advancing COPD. PT surmised she has no needs. Pulmonology rehabilitation also on board. (14) CKD (chronic kidney disease) stage 3, GFR 30-59 ml/min Current Visit: Yes Status: Chronic Assessment and plan: Mild acute kidney injury superimposed on chronic kidney disease stage III. Furosemide held for today and gentle IV fluids totaling 500 mL's initiated. She is not to receive more than 500 mL's for IV fluids, will recheck in the morning. - Subjective Interval history: Patient seen and examined. On examination, patient sitting upright on the side of her bed conversing with her and niece. She states she feels a little bit rough today stating that she did not sleep very well last night secondary to peripheral IV attempts after her port leaked. She states she is eating well. She states shortness of breath is slightly worsened since yesterday. - Constitutional Vitals: Temp Pulse Resp BP Pulse Ox 97.7 F 91 17 103/68 92 10/12/16 10:59 10/12/16 10:59 10/12/16 10:59 10/12/16 10:59 10/12/16 10:59 General appearance: Present: mild distress (baseline), A&O X 3, pleasant, answers questions appropriately - Head Head exam: Present: atraumatic, normocephalic - Eye Eye exam: Present: PERRL, conjuntiva pink, sclera anicteric Pupils: Present: PERRL - Neck Neck exam general surgery: Present: supple, trachea midline. Absent: lymphadenopathy - Respiratory Respiratory exam: Present: decreased breath sounds (LLL), prolonged expiratory phase, rales, respiratory distress (mild/baseline), wheezes. Absent: accessory muscle use, CTAB, rhonchi - Cardiovascular Cardiovascular exam: Present: RRR, +S1, +S2. Absent: diastolic murmur, gallop, rubs, systolic murmur - GI/Abdominal GI/Abdominal exam: Present: normal bowel sounds, soft, no peritoneal signs. Absent: distended, tenderness - Extremities Exam Extremities exam: Present: warm, radial pulses palpable and symetrical. Absent : calf tenderness, cyanotic, pedal edema - Neurological Exam Neurological exam: Present: alert, CN II-XII intact, normal gait, oriented X3, no focal deficits, strengths equal and symetr throughout. Absent: pronater drift, facial droop, speech deficit - Skin Skin exam: Present: dry, intact, normal color, warm Internal Medicine: Result - Labs CBC & Chem 7: 10/10/16 04:40 10/12/16 06:52 Labs: BMP 10/12/16 06:52 Sodium 139 Potassium 4.3 Chloride 99 Carbon Dioxide 25 BUN 49 H D Creatinine 1.52 H Glucose 127 H Calcium 9.5 - ABG Interpretation ABG results: PT/INR, D-dimer PT 19.2 Seconds (9.4-12.1) H 10/12/16 06:52 Consult Discharge Plan - Plan Referrals: Christoph Hughes DO [Primary Care Provider] - 10/19/16 3:30 pm
[2016-10-12] MEDS ORDERED: *HR* Warfarin 5 MG TABLET PO ONE (18:00)
[2016-10-12] MEDS: Gabapentin 100 MG CAPSULE PO SCH (20:27)
[2016-10-12] MEDS: traMADol 50 MG TABLET PO PRN (20:27)
[2016-10-13] MEDS: Piperacillin/Tazobactam 3.375 GM in D5% in Water (Mini-Bag+) 100 ML IVPB SCH ×3 (02:37→17:49)
[2016-10-13] MEDS: Ipratropium/Albuterol Neb 3 ML IH SCH ×5 (03:47→20:22)
[2016-10-13] MEDS: Acetylcysteine 10% 2 ML INHSOL IH SCH ×5 (03:47→20:22)
[2016-10-13 06:10] LABS: INR 2.4; Prothrombin Time 26.3 Seconds (9.4-12.1)
[2016-10-13 06:19] LABS: Potassium 4.1 mEq/L (3.5-4.5)
[2016-10-13] MEDS: Budesonide/Formoterol 160/4.5 MDI IH SCH ×2 (07:52→20:22)
[2016-10-13] MEDS: Fluticasone Propionate Nasal 50 MCG/SPRAY BOTTLE NS SCH (09:53)
[2016-10-13] MEDS: MethylPREDNISolone 40 MG/ML VIAL IVP SCH ×2 (09:53→16:20)
[2016-10-13] MEDS: Vitamin B Complex/Vit C/Vit E 1 EACH TABLET PO SCH (09:54)
[2016-10-13] MEDS: Cholecalciferol (D-3) 1,000 UNIT TABLET PO SCH (09:54)
[2016-10-13] MEDS: Metoprolol XL (24 HR) Succ 25 MG TAB.ER.24H PO SCH ×2 (09:54→21:42)
[2016-10-13] MEDS: Loratadine 10 MG TABLET PO SCH (09:55)
[2016-10-13] MEDS: Folic Acid 1 MG TABLET PO SCH (09:55)
[2016-10-13] MEDS: Nystatin SUSP 5 ML UD.LIQ PO SCH ×4 (09:55→21:42)
[2016-10-13] MEDS: (Umeclidinium Bromide [Incruse Ellipta] 1 PUFF) IH SCH (09:55)
[2016-10-13] MEDS: (Roflumilast [Daliresp] 500 MCG) PO SCH (09:55)
[2016-10-13] MEDS: traMADol 50 MG TABLET PO PRN ×2 (10:00→21:42)
[2016-10-13] MEDS: *HR* Enoxaparin 60 MG/0.6 ML SYRINGE SQ SCH (17:49)
[2016-10-13] MEDS ORDERED: *HR* Warfarin 2.5 MG TABLET PO ONE (18:00)
[2016-10-13] MEDS ORDERED: *HR* Warfarin 5 MG TABLET PO SCH ×2 (18:00)
--- NOTE | 2016-10-13 18:09 | Internal Med Progress Note ---
Date of Encounter: 10/13/16 Time of Encounter: 09:45 - Assessment and plan (1) Acute exacerbation of chronic obstructive pulmonary disease (COPD) Current Visit: No Status: Acute Assessment and plan: Today patient is wearing oxygen at 3 L by nasal cannula to maintain her room air sats above 92%. Patient states that she is feeling better, but states that she has not better enough to go home. She has coarse rhonchi throughout all lung fletcher anterior and posteriorly. Faint expiratory wheezing in left base. Patient has been afebrile. Labs within normal limits. Continue breathing treatments scheduled and when necessary Continue inhalers Continue oxygen to maintain sats greater than 92% Pulse ox Continue steroids Continue Zosyn. (2) Dyspnea Current Visit: No Status: Acute Assessment and plan: Plan as above. Qualifiers: Dyspnea type: dyspnea on exertion Qualified Code(s): R06.09 - Other forms of dyspnea (3) Pneumonia Current Visit: No Status: Acute Assessment and plan: Patient had BAL done with bronchoscopy on October 10. BAL culture shows Stenotrophomonas maltophilia. Patient is being treated with Zosyn. This bacteria is susceptible to Levaquin and Bactrim. Patient is allergic to Levaquin. May treat with Bactrim outpatient switchover. Continue to monitor Plan as above Qualifiers: Pneumonia type: due to unspecified organism Laterality: right Lung location: lower lobe of lung Qualified Code(s): J18.1 - Lobar pneumonia, unspecified organism (4) Hypertension Current Visit: No Status: Chronic Assessment and plan: Chronic. Well-controlled as inpatient. Continue home medications. Qualifiers: Hypertension type: essential hypertension Qualified Code(s): I10 - Essential (primary) hypertension (5) H/O mitral valve replacement with mechanical valve Current Visit: No Status: Chronic Assessment and plan: INR is 2.4 today. food and nutrition services supervisor on board for prescriptions, resources have been given. Patient is doing both Coumadin and Lovenox at this time. Bridging (6) DVT prophylaxis Current Visit: No Status: Acute Assessment and plan: Patient on Coumadin and Lovenox. (7) Acute and chronic respiratory failure Current Visit: Yes Status: Chronic Assessment and plan: Chronic. Acute on chronic now. Plan as above Qualifiers: Respiratory failure complication: hypoxia Qualified Code(s): J96.21 - Acute and chronic respiratory failure with hypoxia (8) Diastolic heart failure Current Visit: No Status: Chronic Assessment and plan: Patient had echo done on 09/30/2016. LVEF 65-70% with normal systolic function. Atypical septal motion consistent with prior cardiac surgery. Mild LV diastolic dysfunction. Normal RV size and function. Severely dilated left atrium. Mechanical mitral valve with normal function. Patient has no peripheral edema. She is euvolemic at this time. We will continue to monitor. Phosphoric Acid Supervisor labs Monitor patient condition Qualifiers: Heart failure chronicity: chronic Qualified Code(s): I50.32 - Chronic diastolic (congestive) heart failure (9) Anxiety Current Visit: No Status: Chronic Assessment and plan: Chronic. Continue home medications. - Time Spent With Patient less than 15 minutes - Subjective Interval history: Patient was seen at about 945 this morning. She was sitting up on her bedside wearing her oxygen. She had family at bedside. She reports dyspnea on exertion and shortness of breath with walking even a short distance. She does have rhonchi throughout all lung fletcher. Expiratory wheezing heard in left base. She has no peripheral edema. She says that she is better, but states that she is not well enough to go home at this time. Patient does speak in long phrases. - Constitutional Vitals: Temp Pulse Resp BP Pulse Ox 98.4 F 96 18 139/82 99 10/13/16 15:04 10/13/16 15:04 10/13/16 16:07 10/13/16 15:04 10/13/16 16:07 General appearance: Present: mild distress (baseline), A&O X 3, pleasant, answers questions appropriately - Head Head exam: Present: normal inspection - Eye Eye exam: Present: normal appearance, conjuntiva pink - ENT ENT exam: Present: mucous membranes moist, normal exam - Neck Neck exam general surgery: Present: normal inspection. Absent: lymphadenopathy , tenderness - Respiratory Respiratory exam: Present: respiratory distress, rhonchi, wheezes. Absent: rales Additional comments: Patient in mild respiratory distress on oxygen.. Speaks in long phrases. - Cardiovascular Cardiovascular exam: Present: RRR, +S1, +S2. Absent: diastolic murmur, systolic murmur, tachycardia - Expanded Cardiovascular Exam Peripheral pulses: 2+: Dorsalis Pedis (L) PM, Dorsalis Pedis (R) PM - GI/Abdominal GI/Abdominal exam: Present: normal bowel sounds. Absent: distended, tenderness - Extremities Exam Extremities exam: Present: normal capillary refill, radial pulses palpable and symetrical. Absent: pedal edema, tenderness - Neurological Exam Neurological exam: Present: alert, oriented X3, no focal deficits. Absent: facial droop, speech deficit Internal Medicine: Result - Labs CBC & Chem 7: 10/10/16 04:40 10/13/16 05:33 Labs: BMP 10/13/16 05:33 Sodium 140 Potassium 4.1 Chloride 106 Carbon Dioxide 26 BUN 42 H Creatinine 1.25 H Glucose 137 H Calcium 9.0 - ABG Interpretation ABG results: PT/INR, D-dimer PT 26.3 Seconds (9.4-12.1) H 10/13/16 05:33 Consult Discharge Plan - Plan Referrals: Christoph Hughes DO [Primary Care Provider] - 10/19/16 3:30 pm
[2016-10-13] MEDS: Gabapentin 100 MG CAPSULE PO SCH (21:41)
[2016-10-14] MEDS: MethylPREDNISolone 40 MG/ML VIAL IVP SCH ×3 (00:18→17:54)
[2016-10-14] MEDS: Ipratropium/Albuterol Neb 3 ML IH SCH ×5 (00:21→16:16)
[2016-10-14] MEDS: Acetylcysteine 10% 2 ML INHSOL IH SCH ×5 (00:21→16:16)
[2016-10-14] MEDS: Piperacillin/Tazobactam 3.375 GM in D5% in Water (Mini-Bag+) 100 ML IVPB SCH ×2 (03:20→10:30)
[2016-10-14 03:46] LABS: Hematocrit 32.8 % (35.3-44.9); Hemoglobin 10.4 g/dL (11.5-15.4); Immature Granulocytes % 1.9 % (0-4); Lymphocytes # 0.5 K/mcL (0.6-4.6); Lymphocytes % 6.1 %; Mean Corpuscular HGB Conc 31.7 g/dL (31.6-35.5); Mean Corpuscular Hemoglobin 28.3 pg (28.0-33.3); Mean Corpuscular Volume 89.1 fL (83.0-100.0); Mean Platelet Volume 11.3 fL (9.4-12.4); Monocytes # 0.3 K/mcL (0.0-1.3); Monocytes % 4.4 %; Neutrophils # 6.6 K/mcL (1.6-8.9); Platelet Count 126 K/mcL (140-400); Red Blood Count 3.68 M/mcL (3.82-4.97); Red Cell Distribution Width 17.3 % (11.5-14.5); Segmented Neutrophils % 87.6 %
[2016-10-14 03:56] LABS: BUN/Creatinine Ratio 39 (6-26); Blood Urea Nitrogen 34 mg/dL (7-20); Calcium 8.2 mg/dL (8.6-10.8); Carbon Dioxide 24 mEq/L (19-29); Chloride 107 mEq/L (98-109); Glucose 139 mg/dL (70-99); Osmolality,Calculated 298 (280-300); Potassium 4.4 mEq/L (3.5-4.5); Sodium 139 mEq/L (136-145); eGFR For African Americans > 60 (> 60); eGFR For Non-African Americans > 60 (> 60)
[2016-10-14] MEDS: Budesonide/Formoterol 160/4.5 MDI IH SCH (07:35)
[2016-10-14] MEDS: Vitamin B Complex/Vit C/Vit E 1 EACH TABLET PO SCH (08:02)
[2016-10-14] MEDS: Nystatin SUSP 5 ML UD.LIQ PO SCH ×3 (08:02→17:54)
[2016-10-14] MEDS: Cholecalciferol (D-3) 1,000 UNIT TABLET PO SCH (08:03)
[2016-10-14] MEDS: Folic Acid 1 MG TABLET PO SCH (08:03)
[2016-10-14] MEDS: Metoprolol XL (24 HR) Succ 25 MG TAB.ER.24H PO SCH (08:03)
[2016-10-14] MEDS: Loratadine 10 MG TABLET PO SCH (08:04)
[2016-10-14] MEDS: Fluticasone Propionate Nasal 50 MCG/SPRAY BOTTLE NS SCH (08:08)
[2016-10-14] MEDS: (Roflumilast [Daliresp] 500 MCG) PO SCH (08:08)
[2016-10-14] MEDS: (Umeclidinium Bromide [Incruse Ellipta] 1 PUFF) IH SCH (08:08)
[2016-10-14] MEDS: traMADol 50 MG TABLET PO PRN (08:12)
[2016-10-14 13:05] LABS: INR 1.9; Prothrombin Time 21.3 Seconds (9.4-12.1)
--- NOTE | 2016-10-14 13:56 | Pulmonology Progress Note ---
Date of Encounter: 10/14/16 Time of Encounter: 12:00 Assessment and Plan (1) Pneumonia Current Visit: No Status: Acute BAL cx reveals presence of Stenotrophomonas. First line recommended therapy is Bactrim and agree with planned change. Recommend total course of at least 14 days. Pt to follow up with Pulmonary as outpt. Qualifiers: Pneumonia type: due to other aerobic Gram-negative bacteria Laterality: bilateral Lung location: lower lobe of lung Qualified Code(s): J15.6 - Pneumonia due to other aerobic Gram-negative bacteria (2) Acute exacerbation of chronic obstructive pulmonary disease (COPD) Current Visit: No Status: Acute Clinically improved but remaining coarse rhonchi and wheezing. Pt nearing baseline respiratory and will follow up with Pulmonary as outpt. Subjective Principal diagnosis: Recurrent pneumonia Interval history: Pt feeling well today. States that breathing has improved close to baseline. BAL cx results show S.maltophilia. Pt feels close to be ready for discharge. Objective PUL Vital signs: Last Vital Signs Temp 98.2 F 10/14/16 11:23 Pulse 83 10/14/16 11:23 Resp 16 10/14/16 11:23 BP 131/72 10/14/16 11:23 Pulse Ox 98 10/14/16 11:23 General appearance: no acute distress Eyes: nonicteric Effort: normal Auscultation: bilateral: wheezes (diffuse, mild expiratory wheezing), rhonchi ( Coarse rhonchi diffusely) Gastrointestinal: non-tender Extremities: no cyanosis normal mental status mood appropriate, affect normal Results - Laboratory Findings CBC and BMP: 10/14/16 03:25 10/14/16 03:25 PT/INR, D-dimer PT 21.3 Seconds (9.4-12.1) H 10/14/16 12:53 Abnormal lab findings: Abnormal lab results RBC 3.68 M/mcL (3.82-4.97) L 10/14/16 03:25 Hgb 10.4 g/dL (11.5-15.4) L D 10/14/16 03:25 Hct 32.8 % (35.3-44.9) L 10/14/16 03:25 RDW 17.3 % (11.5-14.5) H 10/14/16 03:25 Plt Count 126 K/mcL (140-400) L 10/14/16 03:25 Lymphocytes # 0.5 K/mcL (0.6-4.6) L 10/14/16 03:25 PT 21.3 Seconds (9.4-12.1) H 10/14/16 12:53 BUN 34 mg/dL (7-20) H 10/14/16 03:25 BUN/Creatinine Ratio 39 (6-26) H 10/14/16 03:25 Glucose 139 mg/dL (70-99) H 10/14/16 03:25 Calcium 8.2 mg/dL (8.6-10.8) L 10/14/16 03:25 B-Natriuretic Peptide 104 pg/mL (0-100) H 10/08/16 12:17 Fluid Appearance Cloudy (Clear) A 10/10/16 08:38 - Microbiology Findings Microbiology Findings: Microbiology, Last 48 Hours 10/10/16 08:38 Respiratory Culture - Final Left Lower Lobe Lung Stenotrophomonas maltophilia - Clinical Findings Intake & Output: Intake & Output 10/13/16 10/14/16 10/14/16 23:59 07:59 15:59 Intake Total 1040 / 1040 100 / 100 480 / 480 Output Total 700 / 700 Balance 1040 / 1040 -600 / -600 480 / 480 Consult Discharge Plan - Plan Referrals: Christoph Hughes DO [Primary Care Provider] - 10/19/16 3:30 pm
--- NOTE | 2016-10-14 15:14 | Discharge Summary ---
Date of Encounter: 10/14/16 Time of Encounter: 09:30 - Discharge Diagnosis (1) Acute exacerbation of chronic obstructive pulmonary disease (COPD) Priority: Primary Status: Acute Comments: Patient was admitted on 10/09/2016 for acute exacerbation of chronic obstructive pulmonary disease. Patient is wearing 3 L oxygen by nasal cannula. Room air sats above 92%. She does have home O2. Patient states that today she feels better and is ready to go home. Patient actually has improved aeration today, however coarse rhonchi and faint expiratory wheezing at bases remain she remains afebrile. No leukocytosis. Patient has been having difficulty affording some of her medications at home. She has been given resources by the clinical social work therapist to obtain medications at a lower cost or with some assistance. Patient states that she has plenty of inhalers and nebulizer treatments at home. Patient will follow up with pulmonary outpatient as scheduled. I will send patient home on a steroid taper. (2) Pneumonia Priority: Secondary Status: Acute Comments: Patient is being treated for S. Maltophilia. She has been on Zosyn 3 times a day. We will change her over to Bactrim DS one tablet by mouth twice a day for 14 days. I did discuss this with Dr. Tolentino who agrees with plan. She remains afebrile and without leukocytosis. Patient does wear home oxygen. She is on 3 L here. She actually has better aeration in her posterior lung fletcher today. She still has coarse rhonchi, which actually sounds looser today. Faint expiratory wheezing remains in basis. Patient will follow up with pulmonology outpatient as scheduled. Qualifiers: Pneumonia type: due to other aerobic Gram-negative bacteria Laterality: bilateral Lung location: lower lobe of lung Qualified Code(s): J15.6 - Pneumonia due to other aerobic Gram-negative bacteria (3) Dyspnea Priority: Secondary Status: Acute Comments: Patient was sitting up in chair today. She is able speak in full sentences. She says that she is feeling better and is almost back at her baseline. Patient has home O2 We will continue plan as above. Qualifiers: Dyspnea type: dyspnea on exertion Qualified Code(s): R06.09 - Other forms of dyspnea (4) Hypertension Priority: Secondary Status: Chronic Qualifiers: Hypertension type: essential hypertension Qualified Code(s): I10 - Essential (primary) hypertension (5) H/O mitral valve replacement with mechanical valve Priority: Secondary Status: Chronic Comments: Pt will be given her normal dose of Coumadin tonight, in addition to her Lovenox 60mg. She will be given a prescription for Lovenox for 3 syringes. Pt will take her normal dose of both and follow up with the Coumadin clinic tomorrow for redraw and to make future appointments. (6) DVT prophylaxis Priority: Secondary Status: Acute Comments: Plan as above. (7) Acute and chronic respiratory failure Priority: Secondary Status: Chronic Comments: Plan as above. Pt has home 02. She denies need for prescriptions for anything other than antibiotic for home. Qualifiers: Respiratory failure complication: hypoxia Qualified Code(s): J96.21 - Acute and chronic respiratory failure with hypoxia (8) Diastolic heart failure Priority: Secondary Status: Chronic Comments: Chronic. Continue home medications. Qualifiers: Heart failure chronicity: chronic Qualified Code(s): I50.32 - Chronic diastolic (congestive) heart failure (9) Anxiety Priority: Secondary Status: Chronic Comments: Chronic. Continue home medications. - Discharge Medications Prescriptions: Enoxaparin [Lovenox] 60 mg SQ DAILY@1800 #3 syringe Sulfamethoxazole/Trimeth DS [Bactrim DS] 1 each PO BID #28 tablet Home Medications: Albuterol Sulfate [Albuterol Inhaler] 1 - 2 puff IH Q4HR PRN 11/24/15 [History] Allopurinol [Zyloprim 100 MG] 100 mg PO DAILY 11/24/15 [History] Budesonide/Formoterol 160/4.5 [Symbicort 160/4.5] 2 puff IH BIDR 11/24/15 [ History] Calcium Carbonate [Calcium] 500 mg PO BID 11/24/15 [History] Cholecalciferol (D-3) [Vitamin D] 2,000 unit PO DAILY 11/24/15 [History] Fluticasone Propionate Nasal [Flonase] 50 mcg NS DAILY 11/24/15 [History] Folic Acid 1 mg PO DAILY 11/24/15 [History] Gabapentin [Neurontin] 200 mg PO HS 11/24/15 [History] Loratadine [Claritin] 10 mg PO DAILY 11/24/15 [History] Metoprolol XL (24 HR) Succ [Toprol Xl] 12.5 mg PO BID 11/24/15 [History] Montelukast [Singulair] 10 mg PO DAILY 11/24/15 [History] Nitroglycerin [Nitrostat] 0.4 mg SL Q5M PRN 11/24/15 [History] Nortriptyline [Pamelor] 10 mg PO HS 11/24/15 [History] Roflumilast [Daliresp] 500 mcg PO DAILY 11/24/15 [History] Vitamin B Complex [B Complex] 1 tab PO DAILY 11/24/15 [History] Umeclidinium [place] [Incruse Ellipta] 1 puff IH DAILY 12/17/15 [History] Atorvastatin [Lipitor] 10 mg PO HS 01/01/16 [History] Docusate Sodium [Dok] 300 mg PO BID 01/01/16 [History] Albuterol Neb [Proventil Neb] 2.5 mg IH Q4HR PRN 08/25/16 [History] Bifidobacterium Infantis [Align] 4 mg PO DAILY 08/25/16 [History] Oxygen 2 l IN CONT #1 each 08/26/16 [Rx] Tramadol HCl 50 - 100 mg PO QID PRN 09/13/16 [History] Warfarin [Coumadin] 5 mg PO TUWE 09/13/16 [History] Esomeprazole Magnesium [Nexium] 40 mg PO DAILY #30 capsule. 10/03/16 [Rx] Furosemide [Lasix] 40 mg PO BID #60 tablet 10/03/16 [Rx] Potassium Chloride [K-Tab ER] 20 meq PO DAILY #30 tablet.er 10/03/16 [Rx] PredniSONE 10 mg PO DAILY 20 Days 10/03/16 [Rx] Acetylcysteine [X-Bjlbhn-k-Cysteine] 600 mg PO BID 10/08/16 [History] Enoxaparin [Lovenox] 60 mg SQ DAILY@1800 #3 syringe 10/14/16 [Rx] Sulfamethoxazole/Trimeth DS [Bactrim DS] 1 each PO BID #28 tablet 10/14/16 [Rx] Allergies/Adverse Reactions: Allergies ceftriaxone [From Rocephin] Allergy (Severe, Verified 08/25/16 08:19) Hives ciprofloxacin [From Cipro HC] Allergy (Severe, Verified 08/25/16 08:19) Hives levofloxacin [From Levaquin] Allergy (Severe, Verified 08/25/16 08:19) Hives vancomycin Allergy (Severe, Verified 08/25/16 08:19) Rash hydrocortisone [From Cipro HC] Allergy (Intermediate, Verified 08/25/16 08:19) Hives Date of admission: 10/09/16 16:04 Primary care physician: Christoph Hughes Discharging clinician: Lilliam Colon Anticipated date of discharge: 10/14/16 - Patient Status Disposition: Home, Self-Care Condition: Good Functional capacity at discharge: uses cane/walker Overall status at discharge: patient is progressing back to baseline - Discharge Instructions Instructions: Chronic Obstructive Pulmonary Disease (DC), Pneumonia (DC) Follow Up With: Christoph Hughes, [Primary Care Provider] - 10/19/16 3:30 pm Additional Instructions: Please follow up with the Coumadin clinic on Wednesday. Take your medications as directed. Continue all of your other home medications, except for the 7.5mg Coumadin. Take 5mg Coumadin until you follow up at the Coumadin clinic. Take your antibiotic, Bactrim twice daily (every 12 hours) until they are gone. Keep them on schedule and take them until they are gone . Please return to the ED for any problems, concerns, or change in your condition. - Diet and Activity Activity: increase activity as tolerated, wear oxygen at all times Diet: advance to your usual diet Hospital course: Ms. Dewitt is a 71 year old female with a history of COPD/emphysema, coronary artery disease, atrial valve replacement, atrial fibrillation, cardiomyopathy, congestive heart failure, fibromyalgia, hypertension, [place], osteoporosis, RA. She presented to the emergency department on October 08 with shortness of breath. She has several recent admissions for the same. She reported shortness of breath with exertion, but was short of breath at rest as well as at that time. She complains of a productive cough and yellow sputum, no hemoptysis. She reported clear rhinorrhea without fevers. Patient was seen by pulmonology the next day. Her CAT scan dated 09/26 showed left lower lobe collapse due to mucous plugging. She did not have a bronchoscopy at that time due to her elevated INR flu. She had a bronchoscopy done on October 12. She revealed copious amounts of mucus and bronchial plugging. BAL results were positive for S. maltophilia. She was treated inpatient with Zosyn IV every 8 hours. She is being discharged on Bactrim DS 1 tablet twice daily for 14 days. Patient's INR is 1.4 today. She is bridging with Lovenox from Coumadin due to bleeding issues prior to the last bronchoscopy. She does need to be anticoagulated due to the prosthetic valve. Patient will get 7.5 mg by mouth Coumadin in addition to her Lovenox tonight before leaving. She will take 5 mg by mouth Coumadin tomorrow as well as Lovenox subcutaneous. She will follow up with the Coumadin clinic on Wednesday for reevaluation. I will be sending her home with 3 syringes of Lovenox. Patient states that she feels better today and that she is ready to go home. This is quite a change from yesterday where she said she did not feel well enough to go home. Patient has multiple resources from clinical social work therapist upon how to obtain her medications. She has had difficulty obtaining her medications due to cost recently. [employer] worker is working on getting her Lovenox paid for , as well as her antibiotics. Patient will resume her home medications as normal other than the Coumadin as described above. Patient does wear home oxygen, she will also maintain that. is here to take patient home. She is stable for discharge. - Time Spent with Patient Total time spent providing and/or coordinating discharge services: - Constitutional Vitals: Temp Pulse Resp BP Pulse Ox 98.2 F 83 16 131/72 98 10/14/16 11:23 10/14/16 11:23 10/14/16 11:23 10/14/16 11:23 10/14/16 11:23 General appearance: Present: mild distress (baseline), A&O X 3, pleasant, answers questions appropriately - Head Head exam: Present: normal inspection - Eye Eye exam: Present: normal appearance, conjuntiva pink - ENT ENT exam: Present: mucous membranes moist, normal exam - Neck Neck exam general surgery: Present: normal inspection. Absent: lymphadenopathy , tenderness - Respiratory Respiratory exam: Present: decreased breath sounds, rhonchi, wheezes. Absent: rales, respiratory distress, stridor, tachypnea - Cardiovascular Cardiovascular exam: Present: RRR Additional comments: Prosthetic mitral valve. - Extremities Exam Extremities exam: Present: normal capillary refill, warm, radial pulses palpable and symetrical. Absent: pedal edema, tenderness Additional comments: Patient has +2 nonpitting pretibial edema bilaterally. No pedal edema. +2 palpable pedal pulses bilaterally. - Neurological Exam Neurological exam: Present: alert, oriented X3, no focal deficits, strengths equal and symetr throughout
[2016-10-14 15:35] VITALS: BP 146/81
[2016-10-14] MEDS: *HR* Enoxaparin 60 MG/0.6 ML SYRINGE SQ SCH (17:49)
[2016-10-14] MEDS ORDERED: *HR* Warfarin 7.5 MG TABLET PO ONE (18:00)
== END 2016-10-14 18:22 | disposition home or self-care (01) | DRG 166 ==
LOC: EMEROO 11:52 → 3BNU 11:52
PROVIDERS: ADMIT Internal Medicine; ATTEND Registered Nurse

== ENCOUNTER 2016-12-31 10:00 | Inpatient (IN) ==
--- NOTE | 2016-12-31 10:10 | Emergency Department Note ---
Disposition Clinical Impression: Pneumonia, Acute exacerbation of chronic obstructive pulmonary disease (COPD) Disposition: Admitted As Inpatient SOB HPI - General Chief Complaint: ED Shortness of Breath/Dyspnea Stated Complaint: DEBBIE Source: patient Limitations: no limitations Nursing Notes Reviewed: Yes Vital Signs Reviewed: Yes - History of Present Illness Pt Subjective Complaint: shortness of breath, cough Onset (ago): day(s) (3) Context: recent illness Severity: moderate Consistency/Duration: intermittent Improves with: oxygen, rest, bronchodilators Worsens with: exertion Known history of: COPD, recurrent pneumonia Associated symptoms: Reports: cough, wheezing, sputum production. Denies: fever Treatment prior to arrival: oxygen, bronchodilator Cough present: Yes Cough Description: Involuntary Cough Frequency: Intermittent Sputum production: Yes Sputum Amount: Small Sputum Color: Yellow - Related Data Home oxygen amount: 2 liters Home Medications Medication Instructions Recorded Confirmed Albuterol Sulfate [Albuterol 1 - 2 puff IH Q4HR PRN 11/24/15 12/31/16 Inhaler] Allopurinol [Zyloprim 100 MG] 100 mg PO DAILY 11/24/15 12/31/16 Budesonide/Formoterol 160/4.5 2 puff IH BIDR 11/24/15 12/31/16 [Symbicort 160/4.5] Calcium Carbonate [Calcium] 500 mg PO BID 11/24/15 12/31/16 Cholecalciferol (D-3) [Vitamin D] 2,000 unit PO DAILY 11/24/15 12/31/16 Fluticasone Propionate Nasal 1 spray NS DAILY 11/24/15 12/31/16 [Flonase] Gabapentin [Neurontin] 200 mg PO HS 11/24/15 12/31/16 Loratadine [Claritin] 10 mg PO DAILY 11/24/15 12/31/16 Metoprolol XL (24 HR) Succ [Toprol 12.5 mg PO BID 11/24/15 12/31/16 Xl] Montelukast [Singulair] 10 mg PO DAILY 11/24/15 12/31/16 Nitroglycerin [Nitrostat] 0.4 mg SL Q5M PRN 11/24/15 12/31/16 Nortriptyline [Pamelor] 10 mg PO HS 11/24/15 12/31/16 Roflumilast [Daliresp] 500 mcg PO DAILY 11/24/15 12/31/16 Vitamin B Complex [B Complex] 1 tab PO DAILY 11/24/15 12/31/16 Umeclidinium [place] [Incruse 1 puff IH DAILY 12/17/15 12/31/16 Ellipta] Atorvastatin [Lipitor] 10 mg PO HS 01/01/16 12/31/16 Docusate Sodium [Dok] 300 mg PO BID 01/01/16 12/31/16 Albuterol Neb [Proventil Neb] 2.5 mg IH Q4HR PRN 08/25/16 12/31/16 Bifidobacterium Infantis [Align] 4 mg PO DAILY 08/25/16 12/31/16 Tramadol HCl 50 - 100 mg PO QID PRN 09/13/16 12/31/16 Warfarin [Coumadin] 5 mg PO [id number] 09/13/16 12/31/16 Acetylcysteine 600 mg PO BID 10/08/16 12/31/16 [O-Vtjynf-e-Cysteine] Warfarin [Coumadin] 7.5 mg PO SUTUTH 12/31/16 12/31/16 Previous Rx's Medication Instructions Recorded Oxygen 2 l IN CONT #1 each 08/26/16 Esomeprazole Magnesium [Nexium] 40 mg PO DAILY #30 capsule. 10/03/16 Furosemide [Lasix] 40 mg PO BID #60 tablet 10/03/16 Potassium Chloride [K-Tab ER] 20 meq PO DAILY #30 tablet.er 10/03/16 Allergies Allergy/AdvReac Type Severity Reaction Status Date / Time ceftriaxone [From Rocephin] Allergy Severe Hives Verified 12/31/16 10:05 ciprofloxacin [From Cipro HC] Allergy Severe Hives Verified 12/31/16 10:05 levofloxacin [From Levaquin] Allergy Severe Hives Verified 12/31/16 10:05 vancomycin Allergy Severe Rash Verified 12/31/16 10:05 hydrocortisone Allergy Intermediate Hives Verified 12/31/16 10:05 [From Cipro HC] All systems ED: reviewed and negative except as stated. Constitutional: Denies: fever, chills, weakness Respiratory: Reports: dyspnea, wheezes Gastrointestinal: Denies: nausea, vomiting Past Medical History - Past Medical History Source: patient, old records reviewed, nursing notes reviewed Medical history: Reports: arthritis, atrial fibrillation, cardiomyopathy, CHF, COPD, fibromyalgia, hypertension, myocardial infarction, osteoporosis, RA, other Surgical history: Reports: angioplasty/stent, cholecystectomy, coronary bypass ( CABG), heart valve replacement, orthopedic, other Psychiatric history: Reports: no psych history - Social History Smoking Status: Former smoker Smokeless Tobacco Status: No Alcohol use: Reports: none Drug use: Reports: none Physical Exam - General Limitations: no limitations General appearance: alert, in no apparent distress - Head Head exam: atraumatic, normocephalic, normal inspection - Eye Eye exam: Present: normal appearance, PERRL, EOMI - Expanded Eye Exam Pupils: Left: reactive - ENT ENT exam: normal exam, normal oropharynx, mucous membranes moist - Expanded ENT Exam External ear exam: Present: normal external inspection Mouth exam: Present: normal external inspection Teeth exam: Present: normal inspection Throat exam: Present: normal inspection - Neck Neck exam: Present: normal inspection, full ROM, trachea midline - Chest Chest inspection: Present: normal inspection, symmetric chest wall rise - Respiratory Respiratory exam: Present: prolonged expiratory phase (scattered rhonchi and wheezing). Absent: respiratory distress - Cardiovascular Cardiovascular exam: Present: regular rate, normal rhythm, normal heart sounds - Abdominal Exam Abdominal exam: Present: soft, Non-Tender. Absent: tenderness, distention, guarding, rebound, rigidity - Extremities Exam Extremities exam: Present: normal inspection, full ROM. Absent: tenderness, pedal edema - Expanded Upper Extremity Exam Shoulder exam: Present: normal inspection, full ROM Arm exam: Present: normal inspection, full ROM Elbow exam: Present: normal inspection, full ROM Forearm/Wrist exam: Present: normal inspection, full ROM Hand exam: Present: normal inspection, full ROM Vascular exam: Normal: capillary refill, radial pulse - Expanded Lower Extremity Exam Hip/Pelvis exam: Present: normal inspection, full ROM Upper leg exam: Present: normal inspection, full ROM Knee exam: Present: normal inspection, full ROM Lower leg exam: Present: normal inspection, full ROM Ankle exam: Present: normal inspection, full ROM Foot/toe exam: Present: normal inspection, full ROM Neurovascular/Tendon exam: Absent: motor deficit, sensory deficit, tendon deficit - Back Exam Back exam: Present: normal inspection, full ROM. Absent: tenderness - Neurological Exam Neurological exam: Present: alert, oriented X3 - Expanded Neurological Exam Patient oriented to: Present: person, place, time Coma Scale Eye Opening: Spontaneous Coma Scale Motor Response: Obeys Commands Coma Scale Verbal Response: Oriented Coma Scale Total: 15 - Psychiatric Psychiatric exam: Present: normal affect, normal mood - Skin Skin exam: Present: warm, dry, intact, normal color Course Vital Signs Temperature 98 F 12/31/16 10:02 Pulse Rate 89 12/31/16 10:02 Respiratory Rate 18 12/31/16 10:02 Blood Pressure 104/61 12/31/16 10:02 O2 Sat by Pulse Oximetry 93 12/31/16 10:02 Temperature 98 F 12/31/16 10:02 Pulse Rate 89 12/31/16 10:02 Respiratory Rate 18 12/31/16 12:47 Blood Pressure 110/64 12/31/16 12:47 O2 Sat by Pulse Oximetry 94 12/31/16 11:34 Oxygen Delivery Oxygen Delivery Room Air Shortness of Breath/Dyspnea - Differential Diagnosis Likely: acute exacerbation of chronic obstructive airways disease, congestive heart failure, pneumonia, asthma with exacerbation, pneumothorax - Medical Records Medical records reviewed: Yes I reviewed the patient's medical records. - Lab Data Lab results reviewed: Yes I reviewed the patient's lab results. Result diagrams: 12/31/16 10:56 12/31/16 10:56 Lab Results 12/31/16 12/31/16 12/31/16 Range/Units 10:56 10:56 10:56 WBC 6.7 (4.3-11.1) K/mcL RBC 4.85 (3.82-4.97) M/mcL Hgb 12.5 (11.5-15.4) g/dL Hct 40.3 (35.3-44.9) % MCV 83.1 (83.0-100.0) fL MCH 25.8 L (28.0-33.3) pg MCHC 31.0 L (31.6-35.5) g/dL RDW 15.3 H (11.5-14.5) % Plt Count 222 (140-400) K/mcL MPV 10.4 (9.4-12.4) fL Immature Gran % 0.1 (0-4) % Seg Neutrophils % 77.8 % Lymphocytes % 12.0 % Monocytes % 9.4 % Eosinophils % 0.0 % Basophils % 0.7 % Neutrophils # 5.2 (1.6-8.9) K/mcL Lymphocytes # 0.8 (0.6-4.6) K/mcL Monocytes # 0.6 (0.0-1.3) K/mcL Eosinophils # 0.0 (0.0-0.6) K/mcL Basophils # 0.1 (0.0-0.2) K/mcL PT 35.1 H (9.4-12.1) Seconds INR 3.1 APTT 65.7 H (26.0-36.0) Seconds Sodium 137 (136-145) mEq/L Potassium 3.4 L (3.5-4.5) mEq/L Chloride 104 (98-109) mEq/L Carbon Dioxide 25 (19-29) mEq/L BUN 16 (7-20) mg/dL Creatinine 0.84 (0.57-1.11) mg/dL Est GFR ( Amer) > 60 (> 60) Est GFR (Non-Af Amer) > 60 (> 60) BUN/Creatinine Ratio 19 (6-26) Glucose 97 (70-99) mg/dL Calculated Osmolality 285 (280-300) Lactic Acid (0.5-2.2) mmol/L Calcium 8.5 L (8.6-10.8) mg/dL Troponin I (0-0.03) ng/mL B-Natriuretic Peptide (0-100) pg/mL 12/31/16 12/31/16 12/31/16 Range/Units 10:56 10:56 10:56 WBC (4.3-11.1) K/mcL RBC (3.82-4.97) M/mcL Hgb (11.5-15.4) g/dL Hct (35.3-44.9) % MCV (83.0-100.0) fL MCH (28.0-33.3) pg MCHC (31.6-35.5) g/dL RDW (11.5-14.5) % Plt Count (140-400) K/mcL MPV (9.4-12.4) fL Immature Gran % (0-4) % Seg Neutrophils % % Lymphocytes % % Monocytes % % Eosinophils % % Basophils % % Neutrophils # (1.6-8.9) K/mcL Lymphocytes # (0.6-4.6) K/mcL Monocytes # (0.0-1.3) K/mcL Eosinophils # (0.0-0.6) K/mcL Basophils # (0.0-0.2) K/mcL PT (9.4-12.1) Seconds INR APTT (26.0-36.0) Seconds Sodium (136-145) mEq/L Potassium (3.5-4.5) mEq/L Chloride (98-109) mEq/L Carbon Dioxide (19-29) mEq/L BUN (7-20) mg/dL Creatinine (0.57-1.11) mg/dL Est GFR ( Amer) (> 60) Est GFR (Non-Af Amer) (> 60) BUN/Creatinine Ratio (6-26) Glucose (70-99) mg/dL Calculated Osmolality (280-300) Lactic Acid 1.1 (0.5-2.2) mmol/L Calcium (8.6-10.8) mg/dL Troponin I 0.00 (0-0.03) ng/mL B-Natriuretic Peptide 127 H (0-100) pg/mL - Radiology Data Radiology results reviewed: Yes I reviewed the patient's radiology results.
[2016-12-31] MEDS ORDERED: methylPREDNISolone 125 MG/2 ML VIAL IVP ONE (10:46)
[2016-12-31] MEDS ORDERED: Ipratropium/Albuterol Neb 3 ML IH ONE (10:46)
[2016-12-31 11:09] LABS: Basophils # 0.1 K/mcL (0.0-0.2); Basophils % 0.7 %; Hematocrit 40.3 % (35.3-44.9); Hemoglobin 12.5 g/dL (11.5-15.4); Immature Granulocytes % 0.1 % (0-4); Lymphocytes # 0.8 K/mcL (0.6-4.6); Mean Corpuscular Hemoglobin 25.8 pg (28.0-33.3); Mean Corpuscular Volume 83.1 fL (83.0-100.0); Mean Platelet Volume 10.4 fL (9.4-12.4); Monocytes # 0.6 K/mcL (0.0-1.3); Monocytes % 9.4 %; Neutrophils # 5.2 K/mcL (1.6-8.9); Platelet Count 222 K/mcL (140-400); Red Blood Count 4.85 M/mcL (3.82-4.97); Red Cell Distribution Width 15.3 % (11.5-14.5); Segmented Neutrophils % 77.8 %
[2016-12-31 11:10] LABS: INR 3.1; Prothrombin Time 35.1 Seconds (9.4-12.1)
[2016-12-31 11:12] LABS: Activated Partial Thrombo Time 65.7 Seconds (26.0-36.0)
[2016-12-31 11:17] LABS: BUN/Creatinine Ratio 19 (6-26); Blood Urea Nitrogen 16 mg/dL (7-20); Calcium 8.5 mg/dL (8.6-10.8); Carbon Dioxide 25 mEq/L (19-29); Chloride 104 mEq/L (98-109); Glucose 97 mg/dL (70-99); Osmolality,Calculated 285 (280-300); Potassium 3.4 mEq/L (3.5-4.5); Sodium 137 mEq/L (136-145); eGFR For African Americans > 60 (> 60); eGFR For Non-African Americans > 60 (> 60)
[2016-12-31] MEDS ORDERED: Naloxone 0.4 MG/ML INJ IVP PRN (12:50)
[2016-12-31] MEDS ORDERED: Acetaminophen 325 MG TABLET PO PRN (12:50)
[2016-12-31] MEDS ORDERED: Albuterol 2.5 MG/3 ML NEBULIZER IH PRN (12:52)
--- NOTE | 2016-12-31 13:21 | Internal Med History&Physical ---
<Brittany Paez - Last Filed: 12/31/16 13:31> Date of Encounter: 12/31/16 Time of Encounter: 13:17 Assessment and Plan (1) Pneumonia Current visit: Yes Status: Acute 1 patient has been experiencing increased shortness of breath on exertion cough with yellow sputum production chest x-ray showed infiltrate versus atelectasis the leukocytosis. Blood cultures have been obtained we will obtain sputum culture. 2. Initiate patient on doxycycline as well as Zosyn 3 bronchodilators 4 oxygen as needed to maintain SPO2 greater than 92% Qualifiers: Pneumonia type: due to unspecified organism Laterality: right Lung location: lower lobe of lung Qualified Code(s): J18.1 - Lobar pneumonia, unspecified organism (2) H/O mitral valve replacement with mechanical valve Current visit: No Status: Chronic 1 patient is anticoagulated on Coumadin present INR is 3.1 we will continue to check INR daily, goal 2.5-3 pharmacy to dose Coumadin (3) Diastolic heart failure Current visit: No Status: Chronic 1 e September of this year EF 6570% mild diastolic dysfunction. We will continue with Lasix 2 monitor intake and output daily weight 3 low sodium diet Qualifiers: Heart failure chronicity: chronic Qualified Code(s): I50.32 - Chronic diastolic (congestive) heart failure (4) COPD (chronic obstructive pulmonary disease) Current visit: No Status: Chronic 1 presently appears to be stable no wheezes noted. We will continue with oxygen as needed to maintain SPO2 greater than 92% 2 continue with bronchodilators Qualifiers: COPD type: unspecified COPD Qualified Code(s): J44.9 - Chronic obstructive pulmonary disease, unspecified (5) CKD (chronic kidney disease) stage 3, GFR 30-59 ml/min Current visit: No Status: Chronic 1 presently creatinine stable at 0.84 we will continue to monitor 2 avoid nephrotoxins 3 monitor intake and output daily weights (6) Hypokalemia Current visit: Yes Status: Acute 1 potassium is 3.4 we will replace and recheck (7) DVT prophylaxis Current visit: No Status: Acute 1 patient is on Coumadin Internal Medicine - H&P: HPI Chief complaint: SOB cough Admitted From: Emergency Dept Plans for Post Hospital Care: Home History of present illness: Ms. Dewitt is a 71 year old female past medical history of COPD oxygen dependent atrial fibrillation mechanical mitral valve on Coumadin diastolic heart failure C KD stage III. Patient has been experiencing increasing shortness of breath and cough for the past 3 days. She was breathless worse with exertion and relieved with rest as well as oxygen use and bronchodilators. Cough is producing small amounts of yellow sputum. She denies any fevers or chills abdominal pain chest pain nausea vomiting or diarrhea. Denies any swelling to extremities. She presented to the ER with the above complaint. ER records chest x-ray did show some infiltrate versus atelectasis right lower lung. Lab work did show some hypokalemia noted leukocytosis patient is afebrile lactate is 1.1 BNP was 1.7. She was given duo nebs as well as Solu-Medrol blood cultures were obtained. She has been admitted for further work reevaluation. Presently patient is to appear to be in any respiratory distress she denies any chest pain. Lung sounds are clear except for occasional faint expiratory wheeze she does have a moist cough. Heart sounds are regular S1-S2 no rubs gallops or murmurs noted there is a click noted. Abdomen soft nontender no pedal edema noted. Presently she is hemodynamically stable. I reviewed this case with DR Fischer who agrees with plan Past Med Surg Social Fam HX - Past Medical History Medical history: arthritis, atrial fibrillation, cardiomyopathy, CHF, COPD, fibromyalgia, hypertension, myocardial infarction, osteoporosis, RA, other Psychiatric history: no psych history - Past Surgical History Surgical History: angioplasty/stent, cholecystectomy, coronary bypass (CABG), heart valve replacement, orthopedic, other - Social History Smoking Status: Former smoker Smokeless Tobacco Status: No Alcohol use: none Drug use: none - Family History Father Living Status: Hx Family Cardiac Disorders: Yes (open heart surgery) Hx Family Respiratory Disorders: No Hx Family Cancer: Yes (Liver cancer w/ mets) Hx Family GI Disorders: No Hx Family Endocrine Disorder: No Hx Family Neuromuscular Disorders: No Hx Family Neurologic Disorders: No Hx Family HEENT Disorders: No Hx Family Autoimmune Disorders: No Mother Living Status: Hx Family Cardiac Disorders: No Hx Family Respiratory Disorders: Yes Hx Family Cancer: Yes (bone, lung) Hx Family GI Disorders: No Hx Family Endocrine Disorder: No Hx Family Neuromuscular Disorders: No Hx Family Neurologic Disorders: No Hx Family HEENT Disorders: No Hx Family Autoimmune Disorders: No Internal Medicine - H&P: Meds Albuterol Sulfate [Albuterol Inhaler] 1 - 2 puff IH Q4HR PRN 11/24/15 [History] Allopurinol [Zyloprim 100 MG] 100 mg PO DAILY 11/24/15 [History] Budesonide/Formoterol 160/4.5 [Symbicort 160/4.5] 2 puff IH BIDR 11/24/15 [ History] Calcium Carbonate [Calcium] 500 mg PO BID 11/24/15 [History] Cholecalciferol (D-3) [Vitamin D] 2,000 unit PO DAILY 11/24/15 [History] Fluticasone Propionate Nasal [Flonase] 1 spray NS DAILY 11/24/15 [History] Gabapentin [Neurontin] 200 mg PO HS 11/24/15 [History] Loratadine [Claritin] 10 mg PO DAILY 11/24/15 [History] Metoprolol XL (24 HR) Succ [Toprol Xl] 12.5 mg PO BID 11/24/15 [History] Montelukast [Singulair] 10 mg PO DAILY 11/24/15 [History] Nitroglycerin [Nitrostat] 0.4 mg SL Q5M PRN 11/24/15 [History] Nortriptyline [Pamelor] 10 mg PO HS 11/24/15 [History] Roflumilast [Daliresp] 500 mcg PO DAILY 11/24/15 [History] Vitamin B Complex [B Complex] 1 tab PO DAILY 11/24/15 [History] Umeclidinium [place] [Incruse Ellipta] 1 puff IH DAILY 12/17/15 [History] Atorvastatin [Lipitor] 10 mg PO HS 01/01/16 [History] Docusate Sodium [Dok] 300 mg PO BID 01/01/16 [History] Albuterol Neb [Proventil Neb] 2.5 mg IH Q4HR PRN 08/25/16 [History] Bifidobacterium Infantis [Align] 4 mg PO DAILY 08/25/16 [History] Oxygen 2 l IN CONT #1 each 08/26/16 [Rx] Tramadol HCl 50 - 100 mg PO QID PRN 09/13/16 [History] Warfarin [Coumadin] 5 mg PO MOWEFRSA 09/13/16 [History] Esomeprazole Magnesium [Nexium] 40 mg PO DAILY #30 capsule. 10/03/16 [Rx] Furosemide [Lasix] 40 mg PO BID #60 tablet 10/03/16 [Rx] Potassium Chloride [K-Tab ER] 20 meq PO DAILY #30 tablet.er 10/03/16 [Rx] Acetylcysteine [Y-Fbpzhc-u-Cysteine] 600 mg PO BID 10/08/16 [History] Warfarin [Coumadin] 7.5 mg PO SUTUTH 12/31/16 [History] Allergies ceftriaxone [From Rocephin] Allergy (Severe, Verified 12/31/16 10:05) Hives ciprofloxacin [From Cipro HC] Allergy (Severe, Verified 12/31/16 10:05) Hives levofloxacin [From Levaquin] Allergy (Severe, Verified 12/31/16 10:05) Hives vancomycin Allergy (Severe, Verified 12/31/16 10:05) Rash hydrocortisone [From Cipro HC] Allergy (Intermediate, Verified 12/31/16 10:05) Hives All Systems PM: A 10-system review of systems was performed and is negative for pertinent findings except as documented above in the HPI. - Constitutional Constitutional: no chills, no fever(s), no night sweats - EENT Eyes: no change in vision, no discharge, no pain, no photophobia - Cardiovascular Cardiovascular ROS IM: no chest pain, no diaphoresis, no dyspnea, no lightheadedness, no palpitations, no syncope - Respiratory Respiratory: cough, dyspnea on exertion, change in phlegm color - Gastrointestinal Gastrointestinal: no abdominal pain, no diarrhea, no hematemesis, no hematochezia, no melena, no nausea, no vomiting - Genitourinary Genitourinary: no change in urinary stream, no dysuria, no flank pain, no hematuria - Musculoskeletal Musculoskeletal ROS IM: no numbness, no tingling - Integumentary Integumentary IM: no rash, no unusual bruising - Neurological Neurological ROS: no confusion, no convulsions, no focal weakness, no numbness, no tingling, no tremor(s) - Hematologic/Lymphatic Hematologic/Lymphatic: no easy bruising - Constitutional Vitals: Temp Pulse Resp BP Pulse Ox 98 F 89 18 110/64 94 12/31/16 10:02 12/31/16 10:02 12/31/16 12:47 12/31/16 12:47 12/31/16 11:34 General appearance: Present: A&O X 3, answers questions appropriately - Head Head exam: Present: atraumatic, normocephalic - Eye Eye exam: Present: PERRL, conjuntiva pink, sclera anicteric Pupils: Present: PERRL - Neck Neck exam general surgery: Present: supple, trachea midline. Absent: lymphadenopathy - Respiratory Respiratory exam: Present: CTAB, wheezes. Absent: accessory muscle use, rales, rhonchi - Cardiovascular Cardiovascular exam: Present: RRR, +S1, +S2. Absent: diastolic murmur, gallop, rubs, systolic murmur - GI/Abdominal GI/Abdominal exam: Present: normal bowel sounds, soft, no peritoneal signs. Absent: distended, tenderness - Extremities Exam Extremities exam: Present: warm, radial pulses palpable and symetrical. Absent : calf tenderness, cyanotic, pedal edema - Neurological Exam Neurological exam: Present: CN II-XII intact, oriented X3, no focal deficits. Absent: pronater drift, facial droop, speech deficit - Skin Skin exam: Present: dry, intact Internal Med - H&P Results - Labs CBC & Chem 7: 12/31/16 10:56 12/31/16 10:56 - EKG Data EKG shows normal: sinus rhythm - EKG Data Prior EKG available for review: yes When compared to previous EKG: there is no significant change - Diagnostic Studies Other Images Additional comments: Chest X-Ray 12/31/16 10:08 IMPRESSION: 1. Increased density involving the right lower lung zone likely representing atelectasis and/or infiltrate. 2. COPD. D/ / Kelvin Hernandez MD / Kelvin Hernandez MD Interpreting Provider: Kelvin Hernandez MD <Santos Fischer T - Last Filed: 12/31/16 14:12> Date of Encounter: 12/31/16 Internal Medicine - H&P: HPI History of present illness: Ms. Dewitt is a 71 year old female All Systems PM: A 10-system review of systems was performed and is negative for pertinent findings except as documented above in the HPI. - Constitutional Vitals: Temp Pulse Resp BP Pulse Ox 98 F 89 18 110/64 94 12/31/16 10:02 12/31/16 10:02 12/31/16 12:47 12/31/16 12:47 12/31/16 11:34 Internal Med - H&P Results - Labs CBC & Chem 7: 12/31/16 10:56 12/31/16 10:56 - Attending Attestation I have independently seen and examined this patient and discussed plan of care with VANESSA Paez Ms Dewitt is a 71 F with PMH of s/p MVR on warfarin, HTN, CHFpEF, CKD III, and Chronic respiratory failure on home O2, COPD She presents with worsening cough and copious sputum production, yellowish, no fever or chills. She has not required more O2 than her baseline. ON physical exam, vital signs are stable, she has Right lung zone rhonchi, no wheezing, heart sounds S1, S2, systolic murmur, abdomen is benign, no pedal edema Labs and Imaging reviewed: K 3.4, CR at baseline, CXR with R LL pneumonia A/P: Pneumonia: Obtain sputum culture: Zosyn and Doxy-Patient with multiple antibiotic allergies, anticipate early discharge, IRNR is therapeutic for Mechanical valve, replace K, other chronic medical conditions remain stable Rest of details as in MIS Paez documentation
[2016-12-31] MEDS ORDERED: Nitroglycerin 0.4 MG TAB.SUBL SL PRN (13:31)
--- NOTE | 2016-12-31 14:05 | Electrocardiograph Report ---
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
[2016-12-31] MEDS: Piperacillin/Tazobactam 3.375 GM in D5% in Water (Mini-Bag+) 100 ML IVPB SCH ×2 (16:12→23:15)
[2016-12-31] MEDS: Ipratropium/Albuterol Neb 3 ML IH SCH ×2 (16:37→22:59)
[2016-12-31] MEDS ORDERED: Warfarin perPT PO PRN (18:00)
[2016-12-31] MEDS ORDERED: *HR* Warfarin 5 MG TABLET PO SCH (18:00)
[2016-12-31] MEDS: Doxycycline 100 MG in 0.9 % Sodium Chloride Mini Bag 100 ML IVPB SCH (20:26)
[2016-12-31] MEDS: Metoprolol XL (24 HR) Succ 25 MG TAB.ER.24H PO SCH (20:27)
[2016-12-31] MEDS: Furosemide 40 MG TABLET PO SCH (20:27)
[2016-12-31] MEDS: Gabapentin 100 MG CAPSULE PO SCH (20:28)
[2016-12-31] MEDS: traMADol 50 MG TABLET PO PRN (20:35)
[2016-12-31] MEDS: Budesonide/Formoterol 160/4.5 MDI IH SCH (22:59)
[2017-01-01] MEDS: Ipratropium/Albuterol Neb 3 ML IH SCH ×4 (04:42→22:02)
[2017-01-01 05:47] LABS: INR 3.4; Prothrombin Time 38.3 Seconds (9.4-12.1)
[2017-01-01 05:52] LABS: Basophils % 0.3 %; Hematocrit 35.6 % (35.3-44.9); Hemoglobin 11.4 g/dL (11.5-15.4); Immature Granulocytes % 0.3 % (0-4); Lymphocytes # 1.1 K/mcL (0.6-4.6); Lymphocytes % 16.5 %; Mean Corpuscular Hemoglobin 26.6 pg (28.0-33.3); Mean Platelet Volume 10.7 fL (9.4-12.4); Monocytes # 0.6 K/mcL (0.0-1.3); Monocytes % 9.6 %; Neutrophils # 4.9 K/mcL (1.6-8.9); Platelet Count 202 K/mcL (140-400); Red Blood Count 4.29 M/mcL (3.82-4.97); Red Cell Distribution Width 15.2 % (11.5-14.5); Segmented Neutrophils % 73.3 %
[2017-01-01 06:03] LABS: BUN/Creatinine Ratio 25 (6-26); Blood Urea Nitrogen 25 mg/dL (7-20); Calcium 9.5 mg/dL (8.6-10.8); Carbon Dioxide 26 mEq/L (19-29); Chloride 107 mEq/L (98-109); Glucose 97 mg/dL (70-99); Magnesium 1.8 mg/dL (1.6-2.6); Osmolality,Calculated 294 (280-300); Potassium 3.6 mEq/L (3.5-4.5); Sodium 140 mEq/L (136-145); eGFR For African Americans > 60 (> 60); eGFR For Non-African Americans 54 (> 60)
[2017-01-01] MEDS: Piperacillin/Tazobactam 3.375 GM in D5% in Water (Mini-Bag+) 100 ML IVPB SCH ×3 (06:07→22:49)
[2017-01-01] MEDS: Metoprolol XL (24 HR) Succ 25 MG TAB.ER.24H PO SCH ×2 (07:27→21:12)
[2017-01-01] MEDS: Vitamin B Complex/Vit C/Vit E 1 EACH TABLET PO SCH (07:27)
[2017-01-01] MEDS: Lactobacillus 1 EACH CAP.SPRINK PO SCH (07:28)
[2017-01-01] MEDS: Furosemide 40 MG TABLET PO SCH ×2 (07:28→16:10)
[2017-01-01] MEDS: Loratadine 10 MG TABLET PO SCH (07:28)
[2017-01-01] MEDS: Cholecalciferol (D-3) 1,000 UNIT TABLET PO SCH (07:28)
[2017-01-01] MEDS: Fluticasone Propionate Nasal 50 MCG/SPRAY BOTTLE NS SCH (07:29)
[2017-01-01] MEDS: traMADol 50 MG TABLET PO PRN ×2 (07:52→16:23)
[2017-01-01] MEDS ORDERED: (Umeclidinium Bromide [Incruse Ellipta] 1 PUFF) IH SCH (09:00)
[2017-01-01] MEDS ORDERED: (Roflumilast [Daliresp] 500 MCG) PO SCH (09:00)
[2017-01-01] MEDS: Budesonide/Formoterol 160/4.5 MDI IH SCH ×2 (11:14→22:02)
[2017-01-01] MEDS: Doxycycline 100 MG in 0.9 % Sodium Chloride Mini Bag 100 ML IVPB SCH (11:33)
--- NOTE | 2017-01-01 12:46 | Discharge Summary ---
Date of Encounter: 01/01/17 Time of Encounter: 08:45 - Discharge Medications Prescriptions: Enoxaparin [Lovenox] 60 mg SQ Q12HR #10 syr Home Medications: Albuterol Sulfate [Albuterol Inhaler] 1 - 2 puff IH Q4HR PRN 11/24/15 [History] Allopurinol [Zyloprim 100 MG] 100 mg PO DAILY 11/24/15 [History] Budesonide/Formoterol 160/4.5 [Symbicort 160/4.5] 2 puff IH BIDR 11/24/15 [ History] Calcium Carbonate [Calcium] 500 mg PO BID 11/24/15 [History] Cholecalciferol (D-3) [Vitamin D] 2,000 unit PO DAILY 11/24/15 [History] Fluticasone Propionate Nasal [Flonase] 1 spray NS DAILY 11/24/15 [History] Gabapentin [Neurontin] 200 mg PO HS 11/24/15 [History] Loratadine [Claritin] 10 mg PO DAILY 11/24/15 [History] Metoprolol XL (24 HR) Succ [Toprol Xl] 12.5 mg PO BID 11/24/15 [History] Montelukast [Singulair] 10 mg PO DAILY 11/24/15 [History] Nitroglycerin [Nitrostat] 0.4 mg SL Q5M PRN 11/24/15 [History] Nortriptyline [Pamelor] 10 mg PO HS 11/24/15 [History] Roflumilast [Daliresp] 500 mcg PO DAILY 11/24/15 [History] Vitamin B Complex [B Complex] 1 tab PO DAILY 11/24/15 [History] Umeclidinium [place] [Incruse Ellipta] 1 puff IH DAILY 12/17/15 [History] Atorvastatin [Lipitor] 10 mg PO HS 01/01/16 [History] Docusate Sodium [Dok] 300 mg PO BID 01/01/16 [History] Albuterol Neb [Proventil Neb] 2.5 mg IH Q4HR PRN 08/25/16 [History] Bifidobacterium Infantis [Align] 4 mg PO DAILY 08/25/16 [History] Oxygen 2 l IN CONT #1 each 08/26/16 [Rx] Tramadol HCl 50 - 100 mg PO QID PRN 09/13/16 [History] Warfarin [Coumadin] 5 mg PO MOWEFRSA 09/13/16 [History] Esomeprazole Magnesium [Nexium] 40 mg PO DAILY #30 capsule. 10/03/16 [Rx] Furosemide [Lasix] 40 mg PO BID #60 tablet 10/03/16 [Rx] Potassium Chloride [K-Tab ER] 20 meq PO DAILY #30 tablet.er 10/03/16 [Rx] Acetylcysteine [D-Jksnqp-y-Cysteine] 600 mg PO BID 10/08/16 [History] Warfarin [Coumadin] 7.5 mg PO SUTUTH 12/31/16 [History] Enoxaparin [Lovenox] 60 mg SQ Q12HR #10 syr 01/01/17 [Rx] Allergies/Adverse Reactions: Allergies ceftriaxone [From Rocephin] Allergy (Severe, Verified 12/31/16 10:05) Hives ciprofloxacin [From Cipro HC] Allergy (Severe, Verified 12/31/16 10:05) Hives levofloxacin [From Levaquin] Allergy (Severe, Verified 12/31/16 10:05) Hives hydrocortisone [From Cipro HC] Allergy (Intermediate, Verified 12/31/16 10:05) Hives vancomycin Allergy (Mild, Verified 12/31/16 14:42) Rash Spoke with ID from [facility], in 2007 presented with skin rash which was subsequently attributed to either vancomycin, amiodarone, or another medicine as all other causes were ruled out. Important to note this was recorded as a rash and not hives, trouble breathing, etc. Procedures/tests Complete & Pending: Procedures Performed prior 72 hours Category Date Time Status IR contrast injection percutan [IR] Routine IR 01/01/17 Taken Date of admission: 12/31/16 12:38 Primary care physician: Christoph Hughes Consults: 01/01/17 09:29 Consult to Interventional Radiology [CONS] Routine Consulting Provider: Radiology Interventional Cols Reason for Consult: Port Study Time Notified: 09:32 Call Completed: Yes 01/01/17 12:37 Consult to Interventional Radiology [CONS] Routine Consulting Provider: Radiology Interventional Cols Reason for Consult: Port Replacement. Okay to do Wednesday. Time Notified: 12:38 Call Completed: Yes - Patient Status Condition: Fair - Discharge Instructions Follow Up With: Christoph Hughes DO [Primary Care Provider] - Hospital course: Ms. Dewitt is a 71 year old female - Time Spent with Patient Total time spent providing and/or coordinating discharge services: - Constitutional Vitals: Temp Pulse Resp BP Pulse Ox 98.3 F 99 16 108/72 94 01/01/17 11:00 01/01/17 11:00 01/01/17 11:16 01/01/17 11:00 01/01/17 11:16 General appearance: Present: A&O X 3, answers questions appropriately
[2017-01-01] MEDS ORDERED: *HR* Warfarin 5 MG TABLET PO SCH (18:00)
--- NOTE | 2017-01-01 18:44 | Internal Med Progress Note ---
Date of Encounter: 01/01/17 Time of Encounter: 13:00 - Assessment and plan (1) Acute respiratory failure with hypoxia Current Visit: Yes Status: Acute Assessment and plan: Oxygen supplementation weaning as able. (2) Pneumonia Current Visit: Yes Status: Suspected Assessment and plan: ON IV abx. Slow improvement. Qualifiers: Pneumonia type: due to Pneumococcus Laterality: right Lung location: lower lobe of lung Qualified Code(s): J13 - Pneumonia due to Streptococcus pneumoniae (3) COPD exacerbation Current Visit: Yes Status: Acute Assessment and plan: Oxygen, aerosols, supportive care. (4) CKD (chronic kidney disease) stage 3, GFR 30-59 ml/min Current Visit: No Status: Chronic Assessment and plan: Monitor and avoid nephrotoxins. (5) Diastolic CHF Current Visit: No Status: Chronic Assessment and plan: Supportive care for now. Qualifiers: Congestive heart failure chronicity: chronic Qualified Code(s): I50.32 - Chronic diastolic (congestive) heart failure (6) Hypertension Current Visit: No Status: Chronic Assessment and plan: Monitor. Home meds. Qualifiers: Hypertension type: essential hypertension Qualified Code(s): I10 - Essential (primary) hypertension (7) H/O mitral valve replacement with mechanical valve Current Visit: Yes Status: Chronic Assessment and plan: Coumadin on hold - needs port replaced. - Subjective Interval history: Ms. Dewitt is currently admitted for acute pneumonia and COPD. She is moderate to high risk due to potential for worsening respiratory status. Ms. Dewitt is still coughing and congested. She is more wheezy today. Had port study and is cracked and needs removed (next week). No fever. No GI symptoms. - Constitutional Vitals: Temp Pulse Resp BP Pulse Ox 98.1 F 93 18 120/79 97 01/01/17 15:20 01/01/17 15:20 01/01/17 15:20 01/01/17 15:20 01/01/17 15:20 General appearance: Present: A&O X 3, answers questions appropriately - Head Head exam: Present: normocephalic - Eye Eye exam: Present: EOMI, conjuntiva pink - ENT ENT exam: Present: mucous membranes dry - Respiratory Respiratory exam: Present: rhonchi, wheezes - Cardiovascular Cardiovascular exam: Present: clicks, RRR. Absent: tachycardia - GI/Abdominal GI/Abdominal exam: Present: soft. Absent: tenderness - Extremities Exam Extremities exam: Present: warm. Absent: tenderness - Neurological Exam Neurological exam: Present: alert, oriented X3 - Skin Skin exam: Present: dry, warm. Absent: rash Internal Medicine: Result - Labs CBC & Chem 7: 01/01/17 05:02 01/01/17 05:02 Labs: Short CBC 01/01/17 Range/Units 05:02 WBC 6.7 (4.3-11.1) K/mcL Hgb 11.4 L (11.5-15.4) g/dL Hct 35.6 (35.3-44.9) % Plt Count 202 (140-400) K/mcL Neutrophils # 4.9 (1.6-8.9) K/mcL BMP 01/01/17 05:02 Sodium 140 Potassium 3.6 Chloride 107 Carbon Dioxide 26 BUN 25 H Creatinine 1.02 Glucose 97 Calcium 9.5 - ABG Interpretation ABG results: PT/INR, D-dimer PT 38.3 Seconds (9.4-12.1) H 01/01/17 05:02 - Impressions Impressions Contrast Injection 01/01/17 00:00 IMPRESSION: Fibrin sheath at the tip of the chest port catheter within the proximal superior vena cava. There is leakage of contrast from the port, possibly related to breakdown of the accessible portion given the number of times this port has been accessed over the many years this patient has had this in. If a port is still needed, removal of this port is recommended, with placement of a new port as well as catheter. D/ / Elmer Lopez MD / Elmer Lopez MD Interpreting Provider: Elmer Lopez MD Consult Discharge Plan - Plan Referrals: Christoph Hughes DO [Primary Care Provider] - Prescriptions: Enoxaparin [Lovenox] 60 mg SQ Q12HR #10 syr
[2017-01-01] MEDS: Gabapentin 100 MG CAPSULE PO SCH (21:12)
[2017-01-02] MEDS: Ipratropium/Albuterol Neb 3 ML IH SCH ×4 (04:08→22:35)
[2017-01-02] MEDS: Piperacillin/Tazobactam 3.375 GM in D5% in Water (Mini-Bag+) 100 ML IVPB SCH ×3 (05:44→21:21)
[2017-01-02 06:04] LABS: Hematocrit 36.9 % (35.3-44.9); Hemoglobin 11.9 g/dL (11.5-15.4); Immature Platelets 2.5 % (1.1-6.1); Mean Corpuscular HGB Conc 32.2 g/dL (31.6-35.5); Mean Corpuscular Hemoglobin 26.9 pg (28.0-33.3); Mean Corpuscular Volume 83.5 fL (83.0-100.0); Mean Platelet Volume 10.3 fL (9.4-12.4); Red Blood Count 4.42 M/mcL (3.82-4.97); Red Cell Distribution Width 15.5 % (11.5-14.5)
[2017-01-02 06:11] LABS: INR 2.3; Prothrombin Time 25.3 Seconds (9.4-12.1)
[2017-01-02 06:22] LABS: BUN/Creatinine Ratio 27 (6-26); Blood Urea Nitrogen 29 mg/dL (7-20); Calcium 9.9 mg/dL (8.6-10.8); Carbon Dioxide 27 mEq/L (19-29); Chloride 102 mEq/L (98-109); Glucose 89 mg/dL (70-99); Magnesium 1.7 mg/dL (1.6-2.6); Osmolality,Calculated 293 (280-300); Potassium 3.6 mEq/L (3.5-4.5); Sodium 139 mEq/L (136-145); eGFR For African Americans > 60 (> 60); eGFR For Non-African Americans 51 (> 60)
--- NOTE | 2017-01-02 08:59 | Internal Med Progress Note ---
Date of Encounter: 01/02/17 Time of Encounter: 08:00 - Assessment and plan (1) Acute respiratory failure with hypoxia Current Visit: Yes Status: Acute Assessment and plan: Oxygen supplementation weaning as able. Seems to be slowly improving with treatment. (2) Pneumonia Current Visit: Yes Status: Suspected Assessment and plan: Continues on IV abx. Slow improvement. Steroids added today. Qualifiers: Pneumonia type: due to Pneumococcus Laterality: right Lung location: lower lobe of lung Qualified Code(s): J13 - Pneumonia due to Streptococcus pneumoniae (3) COPD exacerbation Current Visit: No Status: Acute Assessment and plan: Currently on aerosols, abx, oxygen. Steroids added today. (4) Hypertension Current Visit: No Status: Chronic Assessment and plan: Monitor. Home meds. Qualifiers: Hypertension type: essential hypertension Qualified Code(s): I10 - Essential (primary) hypertension (5) H/O mitral valve replacement with mechanical valve Current Visit: Yes Status: Chronic Assessment and plan: Coumadin on hold and INR now 2.4. Start Lovenox tonight. (6) CKD (chronic kidney disease) stage 3, GFR 30-59 ml/min Current Visit: No Status: Chronic Assessment and plan: Supportive care. Avoid nephrotoxins. (7) Diastolic CHF Current Visit: No Status: Chronic Assessment and plan: Supportive care for now. Qualifiers: Congestive heart failure chronicity: chronic Qualified Code(s): I50.32 - Chronic diastolic (congestive) heart failure (8) KYLIE (obstructive sleep apnea) Current Visit: No Status: Chronic Assessment and plan: Home treatment. - Subjective Interval history: Ms. Dewitt is currently admitted for acute pneumonia and COPD. She is moderate to high risk due to potential for worsening respiratory status. Ms. Dewitt slept a little better last evening but is still coughing quite a bit. No fever or chills. She can tolerate steroids. No GI symptoms. Still wheezing. - Constitutional Vitals: Temp Pulse Resp BP Pulse Ox 98 F 90 19 114/77 96 01/02/17 08:13 01/02/17 08:13 01/02/17 08:13 01/02/17 08:13 01/02/17 08:13 General appearance: Present: A&O X 3, answers questions appropriately - Head Head exam: Present: normocephalic - Eye Eye exam: Present: EOMI, conjuntiva pink - ENT ENT exam: Present: mucous membranes moist - Respiratory Respiratory exam: Present: prolonged expiratory phase, rhonchi, wheezes - Cardiovascular Cardiovascular exam: Present: RRR. Absent: tachycardia - GI/Abdominal GI/Abdominal exam: Present: soft. Absent: tenderness - Extremities Exam Extremities exam: Present: warm Additional comments: Changes consistent with RA - Neurological Exam Neurological exam: Present: alert, oriented X3, no focal deficits - Psychiatric Psychiatric exam: Present: normal affect, normal mood - Skin Skin exam: Present: dry, warm. Absent: rash Internal Medicine: Result - Labs CBC & Chem 7: 01/02/17 05:39 01/02/17 05:39 Labs: Short CBC 01/02/17 Range/Units 05:39 WBC 5.5 (4.3-11.1) K/mcL Hgb 11.9 (11.5-15.4) g/dL Hct 36.9 (35.3-44.9) % Plt Count 205 (140-400) K/mcL BMP 01/02/17 05:39 Sodium 139 Potassium 3.6 Chloride 102 Carbon Dioxide 27 BUN 29 H Creatinine 1.07 Glucose 89 Calcium 9.9 - ABG Interpretation ABG results: PT/INR, D-dimer PT 25.3 Seconds (9.4-12.1) H 01/02/17 05:39 - Impressions Impressions Contrast Injection 01/01/17 00:00 IMPRESSION: Fibrin sheath at the tip of the chest port catheter within the proximal superior vena cava. There is leakage of contrast from the port, possibly related to breakdown of the accessible portion given the number of times this port has been accessed over the many years this patient has had this in. If a port is still needed, removal of this port is recommended, with placement of a new port as well as catheter. D/ / Elmer Lopez MD / Elmer Lopez MD Interpreting Provider: Elmer Lopez MD Consult Discharge Plan - Plan Referrals: Christoph Hughes DO [Primary Care Provider] - Prescriptions: Enoxaparin [Lovenox] 60 mg SQ Q12HR #10 syr
[2017-01-02] MEDS: Lactobacillus 1 EACH CAP.SPRINK PO SCH (09:18)
[2017-01-02] MEDS: Loratadine 10 MG TABLET PO SCH (09:18)
[2017-01-02] MEDS: Furosemide 40 MG TABLET PO SCH ×2 (09:18→17:19)
[2017-01-02] MEDS: Vitamin B Complex/Vit C/Vit E 1 EACH TABLET PO SCH (09:18)
[2017-01-02] MEDS: Cholecalciferol (D-3) 1,000 UNIT TABLET PO SCH (09:18)
[2017-01-02] MEDS: Fluticasone Propionate Nasal 50 MCG/SPRAY BOTTLE NS SCH (09:19)
[2017-01-02] MEDS: Metoprolol XL (24 HR) Succ 25 MG TAB.ER.24H PO SCH ×2 (09:19→21:21)
[2017-01-02] MEDS: traMADol 50 MG TABLET PO PRN ×2 (09:31→21:20)
[2017-01-02] MEDS: Budesonide/Formoterol 160/4.5 MDI IH SCH ×2 (10:08→22:35)
[2017-01-02] MEDS: methylPREDNISolone 125 MG/2 ML VIAL IVP SCH ×2 (17:19→23:26)
[2017-01-02] MEDS: *HR* Enoxaparin 60 MG/0.6 ML SYRINGE SQ SCH (19:29)
[2017-01-02] MEDS: Gabapentin 100 MG CAPSULE PO SCH (21:21)
[2017-01-02] MEDS: GuaiFENesin/Codeine Oral Soln 5 ML UDC PO PRN (21:37)
[2017-01-03] MEDS ORDERED: 0.9 % Sodium Chloride 500 ML ONE (02:15)
[2017-01-03] MEDS: Ipratropium/Albuterol Neb 3 ML IH SCH ×4 (04:28→22:56)
[2017-01-03 05:21] LABS: Hematocrit 37.6 % (35.3-44.9); Hemoglobin 12.1 g/dL (11.5-15.4); INR 1.4; Mean Corpuscular HGB Conc 32.2 g/dL (31.6-35.5); Mean Corpuscular Hemoglobin 26.7 pg (28.0-33.3); Mean Corpuscular Volume 82.8 fL (83.0-100.0); Mean Platelet Volume 10.8 fL (9.4-12.4); Platelet Count 228 K/mcL (140-400); Prothrombin Time 15.2 Seconds (9.4-12.1); Red Blood Count 4.54 M/mcL (3.82-4.97); Red Cell Distribution Width 15.4 % (11.5-14.5)
[2017-01-03 05:28] LABS: Calcium 10.1 mg/dL (8.6-10.8); Potassium 3.8 mEq/L (3.5-4.5)
[2017-01-03] MEDS: Piperacillin/Tazobactam 3.375 GM in D5% in Water (Mini-Bag+) 100 ML IVPB SCH ×3 (05:47→21:01)
[2017-01-03] MEDS: *HR* Enoxaparin 60 MG/0.6 ML SYRINGE SQ SCH (05:48)
[2017-01-03] MEDS: Metoprolol XL (24 HR) Succ 25 MG TAB.ER.24H PO SCH ×2 (08:33→21:01)
[2017-01-03] MEDS: methylPREDNISolone 125 MG/2 ML VIAL IVP SCH ×3 (08:33→23:49)
[2017-01-03] MEDS: Cholecalciferol (D-3) 1,000 UNIT TABLET PO SCH (08:34)
[2017-01-03] MEDS: Vitamin B Complex/Vit C/Vit E 1 EACH TABLET PO SCH (08:34)
[2017-01-03] MEDS: Furosemide 40 MG TABLET PO SCH ×2 (08:35→16:37)
[2017-01-03] MEDS: Lactobacillus 1 EACH CAP.SPRINK PO SCH (08:35)
[2017-01-03] MEDS: Loratadine 10 MG TABLET PO SCH (08:35)
[2017-01-03] MEDS: Fluticasone Propionate Nasal 50 MCG/SPRAY BOTTLE NS SCH (08:40)
[2017-01-03] MEDS: Benzonatate 100 MG CAPSULE PO PRN ×2 (08:49→13:33)
[2017-01-03] MEDS: traMADol 50 MG TABLET PO PRN ×2 (08:49→16:42)
[2017-01-03] MEDS: Diltiazem CD (24hr) 120 MG CAPSULE PO SCH (09:58)
[2017-01-03] MEDS: Budesonide/Formoterol 160/4.5 MDI IH SCH ×2 (10:43→22:56)
--- NOTE | 2017-01-03 16:55 | Internal Med Progress Note ---
Date of Encounter: 01/03/17 Time of Encounter: 07:45 - Assessment and plan (1) Atrial fibrillation Current Visit: No Status: Chronic Assessment and plan: Episode of rapid a fib during the night. Now on Card drip. Will transition to PO. Qualifiers: Atrial fibrillation type: paroxysmal Qualified Code(s): I48.0 - Paroxysmal atrial fibrillation (2) Acute respiratory failure with hypoxia Current Visit: Yes Status: Acute Assessment and plan: Weaning oxygen as able. Seems to be doing better with addition of steroids. Continue supportive care. (3) Pneumonia Current Visit: Yes Status: Suspected Assessment and plan: Continues on IV abx. Doing somewhat better on IV steroids as well. Qualifiers: Pneumonia type: due to Pneumococcus Laterality: right Lung location: lower lobe of lung Qualified Code(s): J13 - Pneumonia due to Streptococcus pneumoniae (4) COPD exacerbation Current Visit: No Status: Acute Assessment and plan: Currently on aerosols, abx, oxygen and steroids. Slow improvement. (5) Hypertension Current Visit: No Status: Chronic Assessment and plan: Monitor. Home meds. Qualifiers: Hypertension type: essential hypertension Qualified Code(s): I10 - Essential (primary) hypertension (6) H/O mitral valve replacement with mechanical valve Current Visit: Yes Status: Chronic Assessment and plan: Coumadin on hold. Bridging with Lovenox. Hold Lovenox for potential line placement tomorrow. (7) CKD (chronic kidney disease) stage 3, GFR 30-59 ml/min Current Visit: No Status: Chronic Assessment and plan: Supportive care. Avoid nephrotoxins. (8) Diastolic CHF Current Visit: No Status: Chronic Assessment and plan: Supportive care for now. Qualifiers: Congestive heart failure chronicity: chronic Qualified Code(s): I50.32 - Chronic diastolic (congestive) heart failure (9) KYLIE (obstructive sleep apnea) Current Visit: No Status: Chronic Assessment and plan: Home treatment. - Subjective Interval history: Ms. Dewitt is currently admitted for acute pneumonia and COPD. She is moderate to high risk due to potential for worsening respiratory status. Ms. Dewitt had episode of rapid a fib last night and was placed on cardizem drip. Rate is better now. No CP or worsening dyspnea. No fever or chills. Seems to be less congested. - Constitutional Vitals: Temp Pulse Resp BP Pulse Ox 97.9 F 84 19 118/68 94 07/02/17 16:00 01/03/17 16:00 01/03/17 16:00 01/03/17 16:00 01/03/17 16:00 General appearance: Present: A&O X 3, pleasant, answers questions appropriately - Head Head exam: Present: normocephalic - Eye Eye exam: Present: EOMI, conjuntiva pink - ENT ENT exam: Present: mucous membranes moist - Respiratory Respiratory exam: Present: decreased breath sounds, rhonchi, wheezes Additional comments: Rhonchi and wheeze less than yesterday. - Cardiovascular Cardiovascular exam: Present: RRR. Absent: tachycardia - GI/Abdominal GI/Abdominal exam: Present: soft. Absent: tenderness - Extremities Exam Extremities exam: Present: warm. Absent: tenderness - Neurological Exam Neurological exam: Present: alert, oriented X3, no focal deficits - Skin Skin exam: Present: warm. Absent: rash Internal Medicine: Result - Labs CBC & Chem 7: 01/03/17 05:07 01/03/17 05:07 Labs: Short CBC 01/03/17 Range/Units 05:07 WBC 4.1 L (4.3-11.1) K/mcL Hgb 12.1 (11.5-15.4) g/dL Hct 37.6 (35.3-44.9) % Plt Count 228 (140-400) K/mcL [facility] 01/03/17 05:07 Sodium 139 Potassium 3.8 Chloride 101 Carbon Dioxide 28 BUN 31 H Creatinine 1.20 H Glucose 172 H Calcium 10.1 - ABG Interpretation ABG results: PT/INR, D-dimer PT 15.2 Seconds (9.4-12.1) H 01/03/17 05:07 Consult Discharge Plan - Plan Instructions: Implanted Venous Access Port (GEN) Referrals: Christoph Hughes DO [Primary Care Provider] -
[2017-01-03] MEDS: GuaiFENesin/Codeine Oral Soln 5 ML UDC PO PRN (21:00)
[2017-01-03] MEDS: Gabapentin 100 MG CAPSULE PO SCH (21:01)
[2017-01-04] MEDS: Ipratropium/Albuterol Neb 3 ML IH SCH ×4 (04:23→23:04)
[2017-01-04] MEDS: Piperacillin/Tazobactam 3.375 GM in D5% in Water (Mini-Bag+) 100 ML IVPB SCH ×3 (05:25→21:39)
[2017-01-04] MEDS ORDERED: *HR* Enoxaparin 60 MG/0.6 ML SYRINGE SQ SCH (06:00)
[2017-01-04] MEDS ORDERED: Heparin 1,000 UNITS/500 mL NS 500 ML ONE ×2 (08:11→08:43)
[2017-01-04] MEDS ORDERED: Clindamycin 600 MG/50 ML 600 MG/50 ML IV.SOLN IVPB ONE (08:17)
[2017-01-04] MEDS ORDERED: *HR* Midazolam HCl 2 MG/2 ML VIAL IVP PRN (08:17)
[2017-01-04] MEDS ORDERED: 0.9 % Sodium Chloride 500 ML ONE (08:36)
[2017-01-04] MEDS: *HR* FentaNYL (PF) 100 MCG/2 ML VIAL IVP PRN ×2 (08:57→09:10)
--- NOTE | 2017-01-04 09:45 | IR Procedure Note ---
Date of procedure: 01/04/17 Consent Obtained: Written consent Timeout: Correct patient and procedure verified, Correct site verified, Time out performed, Skin prep completed Local anesthetic: Lidocaine 1% Indications: Port malfuction on left, leak, in since 2006 Procedure Performed: Left port removal. New right port placement Site/Technique: Left removed without difficulty. RIJV access for new port. Results/Findings: Working well. Ok to use. Estimated blood loss (cc): 2 Complications: None; Tolerated procedure well Post Procedure Treatment Plan: Monitoring in pts room
[2017-01-04] MEDS: Budesonide/Formoterol 160/4.5 MDI IH SCH ×2 (10:35→23:06)
[2017-01-04] MEDS: Vitamin B Complex/Vit C/Vit E 1 EACH TABLET PO SCH (11:15)
[2017-01-04] MEDS: Lactobacillus 1 EACH CAP.SPRINK PO SCH (11:15)
[2017-01-04] MEDS: Loratadine 10 MG TABLET PO SCH (11:15)
[2017-01-04] MEDS: Metoprolol XL (24 HR) Succ 25 MG TAB.ER.24H PO SCH ×2 (11:15→21:37)
[2017-01-04] MEDS: Cholecalciferol (D-3) 1,000 UNIT TABLET PO SCH (11:15)
[2017-01-04] MEDS: Diltiazem CD (24hr) 120 MG CAPSULE PO SCH (11:16)
[2017-01-04] MEDS: methylPREDNISolone 125 MG/2 ML VIAL IVP SCH (11:16)
[2017-01-04] MEDS: Furosemide 40 MG TABLET PO SCH ×2 (11:16→17:27)
[2017-01-04] MEDS: Fluticasone Propionate Nasal 50 MCG/SPRAY BOTTLE NS SCH (11:17)
[2017-01-04] MEDS: traMADol 50 MG TABLET PO PRN ×2 (12:22→23:13)
--- NOTE | 2017-01-04 15:28 | Electrocardiograph Report ---
[place] [id number] Test Date: 2017-01-03 Pat Name: Yasmeen Dewitt Department: 112 Room: [facility] Gender: F Director Of Quality Control: CORRINE : 1945 Requested By: Naveen Hatfield Order Number: [id number] Reading MD: Teddy Fierro Measurements Intervals [place] Rate: 152 P: OR: 0 QRS: 58 QRSD: 81 T: 0 QT: 233 QTc: 319 Interpretive Statements ATRIAL FIBRILLATION WITH RAPID VENTRICULAR RESPONSE NONSPECIFIC ST \T\ T-WAVE ABNORMALITY ABNORMAL RHYTHM ECG Electronically Signed On 01-04-2017 15:26:59 EDT by Teddy Fierro
[2017-01-04] MEDS: *HR* Enoxaparin 60 MG/0.6 ML SYRINGE SQ SCH (15:33)
[2017-01-04] MEDS: *HR* Warfarin 5 MG TABLET PO SCH (17:27)
[2017-01-04] MEDS: Benzonatate 100 MG CAPSULE PO PRN (17:29)
[2017-01-04] MEDS ORDERED: Warfarin perPT PO PRN (18:00)
--- NOTE | 2017-01-04 19:25 | Internal Med Progress Note ---
Date of Encounter: 01/04/17 Time of Encounter: 12:50 - Assessment and plan (1) Atrial fibrillation Current Visit: No Status: Chronic Assessment and plan: In sinus now. On PO Cardizem. Continue as is for now. Qualifiers: Atrial fibrillation type: paroxysmal Qualified Code(s): I48.0 - Paroxysmal atrial fibrillation (2) Acute respiratory failure with hypoxia Current Visit: Yes Status: Acute Assessment and plan: Weaning oxygen as able. Slowly improving at this time. (3) Pneumonia Current Visit: Yes Status: Suspected Assessment and plan: Continues on IV abx. Will complete 7 days of IV Qualifiers: Pneumonia type: due to Pneumococcus Laterality: right Lung location: lower lobe of lung Qualified Code(s): J13 - Pneumonia due to Streptococcus pneumoniae (4) COPD exacerbation Current Visit: No Status: Acute Assessment and plan: Currently on aerosols, abx, oxygen and steroids. Slow improvement. (5) Hypertension Current Visit: No Status: Chronic Assessment and plan: Monitor. Home meds. Qualifiers: Hypertension type: essential hypertension Qualified Code(s): I10 - Essential (primary) hypertension (6) H/O mitral valve replacement with mechanical valve Current Visit: Yes Status: Chronic Assessment and plan: Bridging with Lovenox. Restart coumadin tonight. (7) CKD (chronic kidney disease) stage 3, GFR 30-59 ml/min Current Visit: No Status: Chronic Assessment and plan: Supportive care. Avoid nephrotoxins. (8) Diastolic CHF Current Visit: No Status: Chronic Assessment and plan: Supportive care for now. Qualifiers: Congestive heart failure chronicity: chronic Qualified Code(s): I50.32 - Chronic diastolic (congestive) heart failure (9) KYLIE (obstructive sleep apnea) Current Visit: No Status: Chronic Assessment and plan: Home treatment. - Subjective Interval history: Ms. Dewitt is currently admitted for acute pneumonia and COPD. She is moderate to high risk due to potential for worsening respiratory status. Ms. Dewitt had line replaced today. No further a fib. Less cough. No fever or chills. No GI symptoms. - Constitutional Vitals: Temp Pulse Resp BP Pulse Ox 97.5 F L 90 18 124/78 96 01/04/17 15:53 01/04/17 15:53 01/04/17 16:01 01/04/17 15:53 01/04/17 16:01 General appearance: Present: A&O X 3, pleasant, answers questions appropriately - Head Head exam: Present: normocephalic - Eye Eye exam: Present: EOMI, conjuntiva pink - ENT ENT exam: Present: mucous membranes moist - Respiratory Respiratory exam: Present: decreased breath sounds, wheezes - Cardiovascular Cardiovascular exam: Present: RRR. Absent: tachycardia - GI/Abdominal GI/Abdominal exam: Present: soft. Absent: tenderness - Extremities Exam Extremities exam: Present: warm. Absent: tenderness - Neurological Exam Neurological exam: Present: alert, oriented X3, no focal deficits - Skin Skin exam: Present: warm. Absent: rash Internal Medicine: Result - Labs CBC & Chem 7: 01/03/17 05:07 01/03/17 05:07 - ABG Interpretation ABG results: PT/INR, D-dimer PT 15.2 Seconds (9.4-12.1) H 01/03/17 05:07 - Impressions Impressions Guidance Ultrasound 01/04/17 00:00 IMPRESSION: Successful left chest port removal. Successful right chest port placement. This may be used immediately. D/ / Elmer Lopez MD / Elmer Lopez MD Interpreting Provider: Elmer Lopez MD Insertion Tunneled Catheter 01/04/17 00:00 IMPRESSION: Successful left chest port removal. Successful right chest port placement. This may be used immediately. D/ / Elmer Lopez MD / Elmer Lopez MD Interpreting Provider: Elmer Lopez MD Tunnelled Catheter Removal 01/04/17 00:00 IMPRESSION: Successful left chest port removal. Successful right chest port placement. This may be used immediately. D/ / Elmer Lopez MD / Elmer Lopez MD Interpreting Provider: Elmer Lopez MD Consult Discharge Plan - Plan Instructions: Implanted Venous Access Port (GEN) Referrals: Christoph Hughes DO [Primary Care Provider] -
[2017-01-04] MEDS: Gabapentin 100 MG CAPSULE PO SCH (21:37)
[2017-01-04] MEDS: GuaiFENesin/Codeine Oral Soln 5 ML UDC PO PRN (21:37)
[2017-01-05] MEDS: Ipratropium/Albuterol Neb 3 ML IH SCH ×4 (04:43→23:28)
[2017-01-05] MEDS: predniSONE 20 MG TABLET PO SCH (06:00)
[2017-01-05] MEDS: Piperacillin/Tazobactam 3.375 GM in D5% in Water (Mini-Bag+) 100 ML IVPB SCH ×3 (06:00→21:47)
[2017-01-05] MEDS: Vitamin B Complex/Vit C/Vit E 1 EACH TABLET PO SCH (07:45)
[2017-01-05] MEDS: Metoprolol XL (24 HR) Succ 25 MG TAB.ER.24H PO SCH ×2 (07:45→21:46)
[2017-01-05] MEDS: Lactobacillus 1 EACH CAP.SPRINK PO SCH (07:45)
[2017-01-05] MEDS: Furosemide 40 MG TABLET PO SCH ×2 (07:45→17:01)
[2017-01-05] MEDS: Loratadine 10 MG TABLET PO SCH (07:46)
[2017-01-05] MEDS: Diltiazem CD (24hr) 120 MG CAPSULE PO SCH (07:46)
[2017-01-05] MEDS: Cholecalciferol (D-3) 1,000 UNIT TABLET PO SCH (07:46)
[2017-01-05] MEDS: Fluticasone Propionate Nasal 50 MCG/SPRAY BOTTLE NS SCH (07:49)
--- NOTE | 2017-01-05 08:03 | Internal Med Progress Note ---
<Talon Bobo - Last Filed: 01/05/17 13:43> Date of Encounter: 01/05/17 Time of Encounter: 07:45 - Assessment and plan (1) Acute respiratory failure with hypoxia Current Visit: Yes Status: Acute Assessment and plan: - Likely secondary to pneumonia and COPD exacerbation. - Improved as patient is able to maintain O2 sat on 2L oxygen. - Continue IV Zosyn for pneumonia. - Continue steroid and bronchodilators for COPD. (2) Pneumonia Current Visit: Yes Status: Suspected Assessment and plan: - Continue IV Zosyn (since 12/31) and plan to complete 7-day course. Qualifiers: Pneumonia type: due to Pneumococcus Laterality: right Lung location: lower lobe of lung Qualified Code(s): J13 - Pneumonia due to Streptococcus pneumoniae (3) COPD exacerbation Current Visit: Yes Status: Acute Assessment and plan: - Continue steroid, bronchodilators and supplemental oxygen. (4) Atrial fibrillation Current Visit: No Status: Chronic Assessment and plan: - Currently on sinus rhythm. - Continue PO Cardizem for rate control. - Currently anticoagulated with Lovenox and Coumadin. Qualifiers: Atrial fibrillation type: paroxysmal Qualified Code(s): I48.0 - Paroxysmal atrial fibrillation (5) H/O mitral valve replacement with mechanical valve Current Visit: Yes Status: Chronic Assessment and plan: - Currently on Coumadin with bridging with Lovenox. - INR 1.1 today. - Continue to monitor as therapeutic INR goal is 3.0. (6) Diastolic heart failure Current Visit: No Status: Chronic Assessment and plan: - Continue Lasix. Qualifiers: Heart failure chronicity: chronic Qualified Code(s): I50.32 - Chronic diastolic (congestive) heart failure (7) Hypertension Current Visit: No Status: Chronic Assessment and plan: - BP within normal range. - Continue current antihypertensive regimen. Qualifiers: Hypertension type: essential hypertension Qualified Code(s): I10 - Essential (primary) hypertension (8) Constipation Current Visit: No Status: Chronic Assessment and plan: - Will give Ducolax. Qualifiers: Constipation type: unspecified constipation type Qualified Code(s): K59.00 - Constipation, unspecified - Subjective Interval history: Patient was seen and examined at bedside this morning. Patient still has some soreness from port replacement yesterday. Patient reports breathing better with decreased sputum production. Patient denies fever, chills, nausea, vomiting, diarrhea, abdominal pain, chest pain. - Constitutional Vitals: Temp Pulse Resp BP Pulse Ox 98.4 F 86 16 122/75 100 01/05/17 07:34 01/05/17 07:34 01/05/17 07:34 01/05/17 07:34 01/05/17 07:34 General appearance: Present: A&O X 3, pleasant, answers questions appropriately - Head Head exam: Present: atraumatic, normocephalic - Eye Eye exam: Present: EOMI, PERRL, conjuntiva pink, sclera anicteric - Neck Neck exam general surgery: Present: supple, trachea midline. Absent: lymphadenopathy - Respiratory Respiratory exam: Present: chest wall tenderness (around port site.), CTAB. Absent: accessory muscle use, rales, rhonchi, wheezes - Cardiovascular Cardiovascular exam: Present: RRR, +S1, +S2. Absent: diastolic murmur, gallop, rubs, systolic murmur - GI/Abdominal GI/Abdominal exam: Present: normal bowel sounds, soft, no peritoneal signs. Absent: distended, tenderness - Extremities Exam Extremities exam: Present: warm, radial pulses palpable and symetrical. Absent : calf tenderness, cyanotic, pedal edema - Neurological Exam Neurological exam: Present: CN II-XII intact, oriented X3, no focal deficits. Absent: pronater drift, facial droop, speech deficit - Skin Skin exam: Present: dry, intact, warm Internal Medicine: Result - Labs CBC & Chem 7: 01/05/17 07:54 01/05/17 07:54 - ABG Interpretation ABG results: PT/INR, D-dimer PT 15.2 Seconds (9.4-12.1) H 01/03/17 05:07 - Impressions Impressions Guidance Ultrasound 01/04/17 00:00 IMPRESSION: Successful left chest port removal. Successful right chest port placement. This may be used immediately. D/ / Elmer Lopez MD / Elmer Lopez MD Interpreting Provider: Elmer Lopez MD Insertion Tunneled Catheter 01/04/17 00:00 IMPRESSION: Successful left chest port removal. Successful right chest port placement. This may be used immediately. D/ / Elmer Lopez MD / Elmer Lopez MD Interpreting Provider: Elmer Lopez MD Tunnelled Catheter Removal 01/04/17 00:00 IMPRESSION: Successful left chest port removal. Successful right chest port placement. This may be used immediately. D/ / Elmer Lopez MD / Elmer Lopez MD Interpreting Provider: Elmer Lopez MD Consult Discharge Plan - Plan Instructions: Implanted Venous Access Port (GEN) Referrals: Christoph Hughes DO [Primary Care Provider] - <Naveen Hatfield - Last Filed: 01/05/17 14:11> Date of Encounter: 01/05/17 - Assessment and plan (1) Acute respiratory failure with hypoxia Current Visit: Yes Status: Acute (2) Pneumonia Current Visit: Yes Status: Suspected Qualifiers: Pneumonia type: due to Pneumococcus Laterality: right Lung location: lower lobe of lung Qualified Code(s): J13 - Pneumonia due to Streptococcus pneumoniae (3) Atrial fibrillation Current Visit: Yes Status: Chronic Qualifiers: Atrial fibrillation type: paroxysmal Qualified Code(s): I48.0 - Paroxysmal atrial fibrillation (4) COPD exacerbation Current Visit: Yes Status: Acute (5) Hypertension Current Visit: Yes Status: Chronic Qualifiers: Hypertension type: essential hypertension Qualified Code(s): I10 - Essential (primary) hypertension (6) H/O mitral valve replacement with mechanical valve Current Visit: Yes Status: Chronic (7) CKD (chronic kidney disease) stage 3, GFR 30-59 ml/min Current Visit: Yes Status: Chronic (8) Diastolic CHF Current Visit: Yes Status: Chronic Qualifiers: Congestive heart failure chronicity: chronic Qualified Code(s): I50.32 - Chronic diastolic (congestive) heart failure (9) KYLIE (obstructive sleep apnea) Current Visit: Yes Status: Chronic - Constitutional Vitals: Temp Pulse Resp BP Pulse Ox 97.5 F L 108 20 142/84 95 01/05/17 11:19 01/05/17 11:19 01/05/17 11:19 01/05/17 11:19 01/05/17 11:19 Internal Medicine: Result - Labs CBC & Chem 7: 01/05/17 07:54 01/05/17 07:54 Labs: Short CBC 01/05/17 Range/Units 07:54 WBC 9.7 D (4.3-11.1) K/mcL Hgb 13.1 (11.5-15.4) g/dL Hct 42.1 (35.3-44.9) % Plt Count 240 (140-400) K/mcL BMP 01/05/17 07:54 Sodium 140 Potassium 3.7 Chloride 101 Carbon Dioxide 31 H BUN 40 H Creatinine 1.05 Glucose 106 H Calcium 9.9 - ABG Interpretation ABG results: PT/INR, D-dimer PT 11.7 Seconds (9.4-12.1) 01/05/17 07:44 - Attending Attestation I examined this patient and my medical decision-making was reviewed with the Resident Physician on 01/05/17. I agree with the documented findings, disposition and treatment plan as described except to the extent set forth below. Ms. Dewitt is currently admitted for acute hypoxic resp failure related to pneumonia and COPD. She is moderate to high risk due to med adjustments and potential worsening of respiratory status. Ms. Dewitt feels OK. No issues with new port. Still on IV abx to cover gram neg. (multiple allergies). INR still low. On PO steroids. Unable to mobilize sputum at this time. Constipated. Exam Alert. Comfortable Heart reg Scant end exp wheeze Abd soft No edema I/P 1. Hypoxia 2. COPD/Pneumonia - ? pneumococcus or gram neg Further diagnoses and plan as above.
[2017-01-05] MEDS: GuaiFENesin/Codeine Oral Soln 5 ML UDC PO PRN ×3 (08:17→23:31)
[2017-01-05 08:20] LABS: Hematocrit 42.1 % (35.3-44.9); Hemoglobin 13.1 g/dL (11.5-15.4); Immature Platelets 4.1 % (1.1-6.1); Mean Corpuscular HGB Conc 31.1 g/dL (31.6-35.5); Mean Corpuscular Hemoglobin 26.4 pg (28.0-33.3); Mean Corpuscular Volume 84.7 fL (83.0-100.0); Mean Platelet Volume 10.6 fL (9.4-12.4); Red Blood Count 4.97 M/mcL (3.82-4.97); Red Cell Distribution Width 15.6 % (11.5-14.5)
[2017-01-05 08:25] LABS: INR 1.1; Prothrombin Time 11.7 Seconds (9.4-12.1)
[2017-01-05 08:31] LABS: BUN/Creatinine Ratio 38 (6-26); Blood Urea Nitrogen 40 mg/dL (7-20); Calcium 9.9 mg/dL (8.6-10.8); Carbon Dioxide 31 mEq/L (19-29); Chloride 101 mEq/L (98-109); Glucose 106 mg/dL (70-99); Magnesium 1.9 mg/dL (1.6-2.6); Osmolality,Calculated 300 (280-300); Potassium 3.7 mEq/L (3.5-4.5); Sodium 140 mEq/L (136-145); eGFR For African Americans > 60 (> 60); eGFR For Non-African Americans 52 (> 60)
[2017-01-05] MEDS: Budesonide/Formoterol 160/4.5 MDI IH SCH ×2 (10:58→23:28)
[2017-01-05] MEDS: Benzonatate 100 MG CAPSULE PO PRN (14:13)
[2017-01-05] MEDS: traMADol 50 MG TABLET PO PRN (14:13)
[2017-01-05] MEDS: *HR* Enoxaparin 60 MG/0.6 ML SYRINGE SQ SCH (14:14)
[2017-01-05] MEDS ORDERED: *HR* Warfarin 7.5 MG TABLET PO SCH (18:00)
[2017-01-05] MEDS: Gabapentin 100 MG CAPSULE PO SCH (21:46)
[2017-01-05] MEDS ORDERED: Sennosides 8.6 MG TABLET PO PRN (23:37)
[2017-01-06] MEDS: Ipratropium/Albuterol Neb 3 ML IH SCH ×4 (04:35→23:24)
[2017-01-06 05:06] LABS: INR 1.1; Prothrombin Time 11.6 Seconds (9.4-12.1)
[2017-01-06 05:11] LABS: Calcium 9.6 mg/dL (8.6-10.8); Potassium 3.4 mEq/L (3.5-4.5)
[2017-01-06 05:23] LABS: Basophils % 0.2 %; Hematocrit 41.3 % (35.3-44.9); Hemoglobin 12.7 g/dL (11.5-15.4); Immature Granulocytes % 0.8 % (0-4); Lymphocytes # 1.7 K/mcL (0.6-4.6); Lymphocytes % 16.2 %; Mean Corpuscular HGB Conc 30.8 g/dL (31.6-35.5); Mean Corpuscular Volume 84.5 fL (83.0-100.0); Mean Platelet Volume 10.4 fL (9.4-12.4); Monocytes # 1.3 K/mcL (0.0-1.3); Monocytes % 12.4 %; Neutrophils # 7.5 K/mcL (1.6-8.9); Platelet Count 257 K/mcL (140-400); Red Blood Count 4.89 M/mcL (3.82-4.97); Red Cell Distribution Width 15.6 % (11.5-14.5); Segmented Neutrophils % 70.4 %
[2017-01-06] MEDS: Piperacillin/Tazobactam 3.375 GM in D5% in Water (Mini-Bag+) 100 ML IVPB SCH ×3 (05:32→21:14)
[2017-01-06] MEDS: Diltiazem CD (24hr) 120 MG CAPSULE PO SCH (07:45)
[2017-01-06] MEDS: Metoprolol XL (24 HR) Succ 25 MG TAB.ER.24H PO SCH ×2 (07:46→21:13)
[2017-01-06] MEDS: Cholecalciferol (D-3) 1,000 UNIT TABLET PO SCH (07:47)
[2017-01-06] MEDS: Vitamin B Complex/Vit C/Vit E 1 EACH TABLET PO SCH (07:48)
[2017-01-06] MEDS: Lactobacillus 1 EACH CAP.SPRINK PO SCH (07:48)
[2017-01-06] MEDS: Furosemide 40 MG TABLET PO SCH ×2 (07:49→17:26)
[2017-01-06] MEDS: predniSONE 20 MG TABLET PO SCH (07:50)
[2017-01-06] MEDS: Loratadine 10 MG TABLET PO SCH (07:56)
[2017-01-06] MEDS: GuaiFENesin/Codeine Oral Soln 5 ML UDC PO PRN ×2 (07:56→21:25)
--- NOTE | 2017-01-06 09:04 | Internal Med Progress Note ---
<Talon Bobo - Last Filed: 01/06/17 11:16> Date of Encounter: 01/06/17 Time of Encounter: 08:45 - Assessment and plan (1) Acute respiratory failure with hypoxia Current Visit: Yes Status: Acute Assessment and plan: - Likely secondary to pneumonia and COPD exacerbation. - Improved as patient is able to maintain good O2 sat on 2L oxygen. - Continue IV Zosyn for pneumonia. - Continue steroid and bronchodilators for COPD. (2) Pneumonia Current Visit: Yes Status: Suspected Assessment and plan: - Continue IV Zosyn (since 12/31) and plan to complete 7-day course with last dose later today. Qualifiers: Pneumonia type: due to Pneumococcus Laterality: right Lung location: lower lobe of lung Qualified Code(s): J13 - Pneumonia due to Streptococcus pneumoniae (3) COPD exacerbation Current Visit: Yes Status: Acute Assessment and plan: - Continue steroid, bronchodilators and supplemental oxygen. (4) Atrial fibrillation Current Visit: Yes Status: Chronic Assessment and plan: - Sinus rhythm at this time. - PO Cardizem was held this morning given low BP. - Currently anticoagulated with Lovenox and Coumadin. - Continue to monitor. Qualifiers: Atrial fibrillation type: paroxysmal Qualified Code(s): I48.0 - Paroxysmal atrial fibrillation (5) H/O mitral valve replacement with mechanical valve Current Visit: Yes Status: Chronic Assessment and plan: - Currently on Coumadin with bridging with Lovenox. - INR 1.1 today. - Continue to monitor as therapeutic INR goal is 3.0. (6) Diastolic heart failure Current Visit: No Status: Chronic Assessment and plan: - Continue Lasix. Qualifiers: Heart failure chronicity: chronic Qualified Code(s): I50.32 - Chronic diastolic (congestive) heart failure (7) Hypertension Current Visit: Yes Status: Chronic Assessment and plan: - Low BP this morning and PO Cardizem has been held. - Continue to monitor BP. Qualifiers: Hypertension type: essential hypertension Qualified Code(s): I10 - Essential (primary) hypertension (8) Constipation Current Visit: No Status: Chronic Assessment and plan: - Patient still reports no bowel movement yet. - Will give one dose of milk of magnesium. Qualifiers: Constipation type: unspecified constipation type Qualified Code(s): K59.00 - Constipation, unspecified (9) Hypokalemia Current Visit: Yes Status: Acute Assessment and plan: - K 3.4 today. - Will replenish with 20 meq of KCl. - Subjective Interval history: Patient was seen and examined at bedside this morning. Patient has no complaint except constipation. She has some cough but no sputum production and her breathing stays well. Patient denies fever, chills, nausea, vomiting, diarrhea, abdominal pain, chest pain. - Constitutional Vitals: Temp Pulse Resp BP Pulse Ox 97.7 F 86 20 112/74 95 01/06/17 08:01 01/06/17 08:01 01/06/17 08:01 01/06/17 08:01 01/06/17 08:01 General appearance: Present: A&O X 3, pleasant, answers questions appropriately - Head Head exam: Present: atraumatic, normocephalic - Eye Eye exam: Present: EOMI, PERRL, conjuntiva pink, sclera anicteric - Neck Neck exam general surgery: Present: supple, trachea midline. Absent: lymphadenopathy - Respiratory Respiratory exam: Present: chest wall tenderness (Around port site), wheezes ( Occasional wheezes). Absent: accessory muscle use, rales, rhonchi - Cardiovascular Cardiovascular exam: Present: RRR, +S1, +S2. Absent: diastolic murmur, gallop, rubs, systolic murmur - GI/Abdominal GI/Abdominal exam: Present: normal bowel sounds, soft, no peritoneal signs. Absent: distended, tenderness - Extremities Exam Extremities exam: Present: warm, radial pulses palpable and symetrical. Absent : calf tenderness, cyanotic, pedal edema - Neurological Exam Neurological exam: Present: CN II-XII intact, oriented X3, no focal deficits. Absent: pronater drift, facial droop, speech deficit - Skin Skin exam: Present: dry, intact, warm Internal Medicine: Result - Labs CBC & Chem 7: 01/06/17 04:23 01/06/17 04:23 Labs: Short CBC 01/06/17 Range/Units 04:23 WBC 10.6 (4.3-11.1) K/mcL Hgb 12.7 (11.5-15.4) g/dL Hct 41.3 (35.3-44.9) % Plt Count 257 (140-400) K/mcL Neutrophils # 7.5 (1.6-8.9) K/mcL BMP 01/06/17 04:23 Sodium 140 Potassium 3.4 L Chloride 100 Carbon Dioxide 30 H BUN 42 H Creatinine 1.10 Glucose 96 Calcium 9.6 - ABG Interpretation ABG results: PT/INR, D-dimer PT 11.6 Seconds (9.4-12.1) 01/06/17 04:23 Consult Discharge Plan - Plan Instructions: Implanted Venous Access Port (GEN) Referrals: Christoph Hughes, [Primary Care Provider] - 01/13/17 11:15 am (please follow up as schedule...) <Naveen Hatfield - Last Filed: 01/06/17 14:59> Date of Encounter: 01/06/17 - Assessment and plan (1) Acute respiratory failure with hypoxia Current Visit: Yes Status: Acute (2) Pneumonia Current Visit: Yes Status: Suspected Qualifiers: Pneumonia type: due to Pneumococcus Laterality: right Lung location: lower lobe of lung Qualified Code(s): J13 - Pneumonia due to Streptococcus pneumoniae (3) Atrial fibrillation Current Visit: Yes Status: Chronic Qualifiers: Atrial fibrillation type: paroxysmal Qualified Code(s): I48.0 - Paroxysmal atrial fibrillation (4) COPD exacerbation Current Visit: Yes Status: Acute (5) Hypertension Current Visit: Yes Status: Chronic Qualifiers: Hypertension type: essential hypertension Qualified Code(s): I10 - Essential (primary) hypertension (6) H/O mitral valve replacement with mechanical valve Current Visit: Yes Status: Chronic (7) CKD (chronic kidney disease) stage 3, GFR 30-59 ml/min Current Visit: Yes Status: Chronic (8) Diastolic CHF Current Visit: Yes Status: Chronic Qualifiers: Congestive heart failure chronicity: chronic Qualified Code(s): I50.32 - Chronic diastolic (congestive) heart failure (9) KYLIE (obstructive sleep apnea) Current Visit: Yes Status: Chronic - Constitutional Vitals: Temp Pulse Resp BP Pulse Ox 97.5 F L 95 20 126/84 98 01/06/17 11:35 01/06/17 11:35 01/06/17 11:35 01/06/17 11:35 01/06/17 11:35 Internal Medicine: Result - Labs CBC & Chem 7: 01/06/17 04:23 01/06/17 04:23 Labs: Short CBC 01/06/17 Range/Units 04:23 WBC 10.6 (4.3-11.1) K/mcL Hgb 12.7 (11.5-15.4) g/dL Hct 41.3 (35.3-44.9) % Plt Count 257 (140-400) K/mcL Neutrophils # 7.5 (1.6-8.9) K/mcL BMP 01/06/17 04:23 Sodium 140 Potassium 3.4 L Chloride 100 Carbon Dioxide 30 H BUN 42 H Creatinine 1.10 Glucose 96 Calcium 9.6 - ABG Interpretation ABG results: PT/INR, D-dimer PT 11.6 Seconds (9.4-12.1) 01/06/17 04:23 - Attending Attestation I examined this patient and my medical decision-making was reviewed with the Resident Physician on 01/06/17. I agree with the documented findings, disposition and treatment plan as described except to the extent set forth below. Ms. Dewitt is currently admitted for acute exac COPD/pneumonia. She remains moderate to high risk due to potential for worsening respiratory status. Ms. Dewitt is doing OK but still has a lot of chest congestion. She is still having difficulty mobilizing it. Thinks she may need a bronch if doesn't improve. Today is day 7 antibiotics. No GI symptoms. INR still low. Exam Alert. Comfortable Heart reg Lungs with coarse rhonchi bilaterally. Abd soft No edema I/P 1. Hypoxia 2. Pneumonia 3. Parox a fib Further diagnoses and plan as above.
[2017-01-06] MEDS ORDERED: MOM Conc 10 ML UD.LIQ PO ONE (09:24)
[2017-01-06] MEDS: Fluticasone Propionate Nasal 50 MCG/SPRAY BOTTLE NS SCH (09:54)
[2017-01-06] MEDS: traMADol 50 MG TABLET PO PRN ×2 (09:54→21:25)
[2017-01-06] MEDS: Budesonide/Formoterol 160/4.5 MDI IH SCH ×2 (10:26→23:24)
[2017-01-06] MEDS: *HR* Enoxaparin 60 MG/0.6 ML SYRINGE SQ SCH (14:02)
[2017-01-06] MEDS ORDERED: NON-FORMULARY MEDICATION 1 EACH EACH (Oxygen [Oxygen] 2 L) IN SCH (15:15)
[2017-01-06] MEDS: *HR* Warfarin 5 MG TABLET PO SCH (17:26)
[2017-01-06] MEDS: Gabapentin 100 MG CAPSULE PO SCH (21:13)
[2017-01-07] MEDS: Ipratropium/Albuterol Neb 3 ML IH SCH ×4 (04:07→22:58)
[2017-01-07 05:00] LABS: INR 1.2; Prothrombin Time 12.6 Seconds (9.4-12.1)
[2017-01-07 05:10] LABS: BUN/Creatinine Ratio 36 (6-26); Blood Urea Nitrogen 38 mg/dL (7-20); Calcium 9.1 mg/dL (8.6-10.8); Carbon Dioxide 30 mEq/L (19-29); Chloride 100 mEq/L (98-109); Glucose 116 mg/dL (70-99); Magnesium 2.2 mg/dL (1.6-2.6); Osmolality,Calculated 300 (280-300); Potassium 3.4 mEq/L (3.5-4.5); Sodium 140 mEq/L (136-145); eGFR For African Americans > 60 (> 60); eGFR For Non-African Americans 51 (> 60)
[2017-01-07] MEDS: Piperacillin/Tazobactam 3.375 GM in D5% in Water (Mini-Bag+) 100 ML IVPB SCH (05:58)
--- NOTE | 2017-01-07 08:26 | Internal Med Progress Note ---
<Talon Bobo - Last Filed: 01/07/17 16:13> Date of Encounter: 01/07/17 Time of Encounter: 08:00 - Assessment and plan (1) Acute respiratory failure with hypoxia Current Visit: Yes Status: Acute Assessment and plan: - Likely secondary to pneumonia and COPD exacerbation. - Improved as patient is able to maintain good O2 sat on 2L oxygen. - Patient has finished 7-day course of IV Zosyn for pneumonia. - Continue steroid and bronchodilators for COPD. (2) Pneumonia Current Visit: Yes Status: Suspected Assessment and plan: - CXR on admission found increased density involving the right lower lung, likely pneumonia. - Patient had finished 7-day course of IV Zosyn. - Pulmonology was consulted for potential bronchoscopy given persistent cough raises the concern of other underlying causes such as mucus plug. - Pulmonology recommends starting patient on Bactrim and may have bronchoscopy later. Qualifiers: Pneumonia type: due to unspecified organism Laterality: unspecified laterality Lung location: unspecified part of lung Qualified Code(s): J18.9 - Pneumonia, unspecified organism (3) COPD exacerbation Current Visit: Yes Status: Acute Assessment and plan: - Continue steroid, bronchodilators and supplemental oxygen. (4) Atrial fibrillation Current Visit: Yes Status: Chronic Assessment and plan: - Sinus rhythm at this time. - PO Cardizem was held this morning given low BP. - Currently anticoagulated with Lovenox and Coumadin. - Continue to monitor. Qualifiers: Atrial fibrillation type: paroxysmal Qualified Code(s): I48.0 - Paroxysmal atrial fibrillation (5) H/O mitral valve replacement with mechanical valve Current Visit: Yes Status: Chronic Assessment and plan: - Therapeutic INR goal is 3.0 for mechanical mitral valve. - Currently on Coumadin with bridging with Lovenox. - INR 1.2 today. - Pulmonology recommends to hold Coumadin for now for possible bronchoscopy - Continue to monitor. (6) Diastolic heart failure Current Visit: No Status: Chronic Assessment and plan: - Continue Lasix. Qualifiers: Heart failure chronicity: chronic Qualified Code(s): I50.32 - Chronic diastolic (congestive) heart failure (7) Hypertension Current Visit: Yes Status: Chronic Assessment and plan: - Continue to monitor BP. Qualifiers: Hypertension type: essential hypertension Qualified Code(s): I10 - Essential (primary) hypertension (8) Hypokalemia Current Visit: Yes Status: Acute Assessment and plan: - K 3.4 today. - Continue KCl supplement. - Subjective Interval history: No significant event noted overnight. Patient was seen and examined at bedside this morning. Patient has no complaint except persistent cough. Patient reports no sputum production or significant shortness of breath. Patient denies fever, chills, nausea, vomiting, diarrhea, abdominal pain, chest pain. Patient reports constipation resolved she had bowel movement last night. - Constitutional Vitals: Temp Pulse Resp BP Pulse Ox 97.7 F 93 18 110/76 96 01/07/17 06:54 01/07/17 06:54 01/07/17 06:54 01/07/17 06:54 01/07/17 06:54 General appearance: Present: A&O X 3, pleasant, answers questions appropriately - Head Head exam: Present: atraumatic, normocephalic - Eye Eye exam: Present: EOMI, PERRL, conjuntiva pink, sclera anicteric - Neck Neck exam general surgery: Present: supple, trachea midline. Absent: lymphadenopathy - Respiratory Respiratory exam: Present: wheezes (Few). Absent: accessory muscle use, rales, rhonchi - Cardiovascular Cardiovascular exam: Present: RRR, +S1, +S2. Absent: diastolic murmur, gallop, rubs, systolic murmur - GI/Abdominal GI/Abdominal exam: Present: normal bowel sounds, soft, no peritoneal signs. Absent: distended, tenderness - Extremities Exam Extremities exam: Present: warm, radial pulses palpable and symetrical. Absent : calf tenderness, cyanotic, pedal edema - Neurological Exam Neurological exam: Present: CN II-XII intact, oriented X3, no focal deficits. Absent: pronater drift, facial droop, speech deficit - Skin Skin exam: Present: dry, intact, warm Internal Medicine: Result - Labs CBC & Chem 7: 01/06/17 04:23 01/07/17 04:43 Labs: BMP 01/07/17 04:43 Sodium 140 Potassium 3.4 L Chloride 100 Carbon Dioxide 30 H BUN 38 H Creatinine 1.07 Glucose 116 H Calcium 9.1 - ABG Interpretation ABG results: PT/INR, D-dimer PT 12.6 Seconds (9.4-12.1) H 01/07/17 04:43 Consult Discharge Plan - Plan Instructions: Implanted Venous Access Port (GEN) Referrals: Christoph Hughes DO [Primary Care Provider] - 01/13/17 11:15 am (please follow up as schedule...) <Naveen Hatfield - Last Filed: 01/07/17 18:11> Date of Encounter: 01/07/17 - Assessment and plan (1) Acute respiratory failure with hypoxia Current Visit: Yes Status: Acute (2) Pneumonia Current Visit: Yes Status: Suspected Qualifiers: Pneumonia type: due to unspecified organism Laterality: unspecified laterality Lung location: unspecified part of lung Qualified Code(s): J18.9 - Pneumonia, unspecified organism (3) Atrial fibrillation Current Visit: Yes Status: Chronic Qualifiers: Atrial fibrillation type: paroxysmal Qualified Code(s): I48.0 - Paroxysmal atrial fibrillation (4) COPD exacerbation Current Visit: Yes Status: Acute (5) Hypertension Current Visit: Yes Status: Chronic Qualifiers: Hypertension type: essential hypertension Qualified Code(s): I10 - Essential (primary) hypertension (6) H/O mitral valve replacement with mechanical valve Current Visit: Yes Status: Chronic (7) CKD (chronic kidney disease) stage 3, GFR 30-59 ml/min Current Visit: Yes Status: Chronic (8) Diastolic CHF Current Visit: Yes Status: Chronic Qualifiers: Congestive heart failure chronicity: chronic Qualified Code(s): I50.32 - Chronic diastolic (congestive) heart failure (9) KYLIE (obstructive sleep apnea) Current Visit: Yes Status: Chronic - Constitutional Vitals: Temp Pulse Resp BP Pulse Ox 97.6 F 95 18 115/56 99 01/07/17 15:33 01/07/17 15:33 01/07/17 15:33 01/07/17 15:33 01/07/17 15:33 Internal Medicine: Result - Labs CBC & Chem 7: 01/06/17 04:23 01/07/17 04:43 Labs: BMP 01/07/17 04:43 Sodium 140 Potassium 3.4 L Chloride 100 Carbon Dioxide 30 H BUN 38 H Creatinine 1.07 Glucose 116 H Calcium 9.1 - ABG Interpretation ABG results: PT/INR, D-dimer PT 12.6 Seconds (9.4-12.1) H 01/07/17 04:43 - Attending Attestation I examined this patient and my medical decision-making was reviewed with the Resident Physician on 01/07/17. I agree with the documented findings, disposition and treatment plan as described except to the extent set forth below. Ms. Dewitt is currently admitted for hypoxia and pneumonia. She is moderate to high risk due to potential for worsening respiratory status. Ms. Dewitt is still congested and coughing. Her abx are now different. Appreciate pulm input. No fever or chills. No GI symptoms. Exam Alert. Comfortable Heart reg Rhonchi heard I/P 1. Hypoxia 2. Pneumonia Further diagnoses and plan as above.
--- NOTE | 2017-01-07 09:30 | Pulmonology Consult Note ---
Date of Encounter: 01/07/17 Time of Encounter: 09:30 Assessment and Plan (1) Pneumonia Current Visit: Yes Status: Suspected Impression: 71-year-old woman with long-standing COPD complicated by bronchiectasis with recurrent exacerbation here for worsening shortness of breath overall picture consistent with likely acute infectious process and its reasonable to call this pneumonia which is triggered COPD exacerbation despite antimicrobial therapy steroids and bronchodilators which she has been slow to resolve. I suspect this is in part related to antimicrobial selection given history of stenotrophomonas and nature of organism causing repeated complicated infections in individuals with chronic structural lung disease such as advanced and emphysema, it is likely the cause of this acute infection/exacerbation. Patient remains at high-risk for complications related to bronchoscopy given need for chronic long-term anticoagulation for mitral valve and thus given limitations I favor conservative approach at present and can reevaluate the need for bronchoscopy over the next 24-72 hours Recs: -I have consulted respiratory therapy to perform induced sputum on patient we will send this for broad sputum culture including AFB (NTM) -I have added N-acetylcysteine 3 times a day to her current regimen -Agree with continued use of steroids enteral prednisone 40 mg a day is reasonable -Continue schedule bronchodilators and metered-dose inhalers -Continue to wean FiO2 to keep saturation around 89-92% -Stop Zosyn start Bactrim (DS) twice a day; I discussed this with pharmacist regarding dosing. INR and kidney monitoring -I would go ahead and allow patient to return resume normal diet today keep nothing by mouth at midnight -Would maintain patient on Lovenox for the next 24-48 hours pending possible bronchoscopy -Recommend out of bed to chair ambulation as tolerated and thrice daily Accapella (airway clearance) We will continue to follow; thank you for consulting on this patient Qualifiers: Pneumonia type: due to unspecified organism Laterality: unspecified laterality Lung location: unspecified part of lung Qualified Code(s): J18.9 - Pneumonia, unspecified organism (2) H/O mitral valve replacement with mechanical valve Current Visit: Yes Status: Chronic (3) Acute and chronic respiratory failure Current Visit: No Status: Chronic Qualifiers: Respiratory failure complication: hypoxia Qualified Code(s): J96.21 - Acute and chronic respiratory failure with hypoxia (4) Acute exacerbation of chronic obstructive pulmonary disease (COPD) Current Visit: Yes Status: Acute History of Present Illness Consult date: 01/07/17 Requesting physician: Naveen Hatfield Chief complaint: Shortness of Breath History of present illness: This is a pleasant 71-year-old woman who is well-known to the pulmonary service and follows with Dr. Siddiqi for advanced COPD with chronic bronchiectasis. She is subject to frequent exacerbations precipitated by infection. On this admission she presented with worsening shortness of breath and cough which was primarily nonproductive but occasionally productive of yellow sputum. Chest x- ray was suggestive of right lower lobe opacification and she has been treated for pneumonia for nearly a week. Despite treatment she has not progressed and there was a question whether she would benefit from repeat bronchoscopy. She underwent bronchoscopy last in October of this year with the BAL microbiology positive for stenotrophomonas she was treated with Bactrim and did well for last several months at home. She denies fevers chills weight loss or increased fatigue she has not had a significant increase in oxygen requirement. Her past medical history is also significant for a mechanical heart valve for which she is on long-term anticoagulation with warfarin on this admission she is currently on Lovenox as she was still subtherapeutic with warfarin for several days. Additionally, she has several drug allergies which makes empiric antimicrobial selection challenging When I spoke with her at the bedside today she was her usual pleasant self joined by her and while she does not feel "terrible" she still has quite a bit of congestion in her chest and is anxious to improve to get back home. Past Med Surg Social Fam HX - Past Medical History Medical history: arthritis, atrial fibrillation, cardiomyopathy, CHF, COPD, fibromyalgia, hypertension, myocardial infarction, osteoporosis, RA, other Psychiatric history: no psych history - Past Surgical History Surgical History: angioplasty/stent, cholecystectomy, coronary bypass (CABG), heart valve replacement, orthopedic, other - Social History Smoking Status: Former smoker Smokeless Tobacco Status: No Alcohol use: none Drug use: none - Family History Father Living Status: Hx Family Cardiac Disorders: Yes (open heart surgery) Hx Family Respiratory Disorders: No Hx Family Cancer: Yes (Liver cancer w/ mets) Hx Family GI Disorders: No Hx Family Endocrine Disorder: No Hx Family Neuromuscular Disorders: No Hx Family Neurologic Disorders: No Hx Family HEENT Disorders: No Hx Family Autoimmune Disorders: No Mother Living Status: Hx Family Cardiac Disorders: No Hx Family Respiratory Disorders: Yes Hx Family Cancer: Yes (bone, lung) Hx Family GI Disorders: No Hx Family Endocrine Disorder: No Hx Family Neuromuscular Disorders: No Hx Family Neurologic Disorders: No Hx Family HEENT Disorders: No Hx Family Autoimmune Disorders: No Medications and Allergies Albuterol Sulfate [Albuterol Inhaler] 1 - 2 puff IH Q4HR PRN 11/24/15 [History] Allopurinol [Zyloprim 100 MG] 100 mg PO DAILY 11/24/15 [History] Budesonide/Formoterol 160/4.5 [Symbicort 160/4.5] 2 puff IH BIDR 11/24/15 [ History] Calcium Carbonate [Calcium] 500 mg PO BID 11/24/15 [History] Cholecalciferol (D-3) [Vitamin D] 2,000 unit PO DAILY 11/24/15 [History] Fluticasone Propionate Nasal [Flonase] 1 spray NS DAILY 11/24/15 [History] Gabapentin [Neurontin] 200 mg PO HS 11/24/15 [History] Loratadine [Claritin] 10 mg PO DAILY 11/24/15 [History] Metoprolol XL (24 HR) Succ [Toprol Xl] 12.5 mg PO BID 11/24/15 [History] Montelukast [Singulair] 10 mg PO DAILY 11/24/15 [History] Nitroglycerin [Nitrostat] 0.4 mg SL Q5M PRN 11/24/15 [History] Nortriptyline [Pamelor] 10 mg PO HS 11/24/15 [History] Roflumilast [Daliresp] 500 mcg PO DAILY 11/24/15 [History] Vitamin B Complex [B Complex] 1 tab PO DAILY 11/24/15 [History] Umeclidinium Harlan [Incruse Ellipta] 1 puff IH DAILY 12/17/15 [History] Atorvastatin [Lipitor] 10 mg PO HS 01/01/16 [History] Docusate Sodium [Dok] 300 mg PO BID 01/01/16 [History] Albuterol Neb [Proventil Neb] 2.5 mg IH Q4HR PRN 08/25/16 [History] Bifidobacterium Infantis [Align] 4 mg PO DAILY 08/25/16 [History] Oxygen 2 l IN CONT #1 each 08/26/16 [Rx] Tramadol HCl 50 - 100 mg PO QID PRN 09/13/16 [History] Warfarin [Coumadin] 5 mg PO MOWEFRSA 09/13/16 [History] Esomeprazole Magnesium [Nexium] 40 mg PO DAILY #30 capsule.dr 10/03/16 [Rx] Furosemide [Lasix] 40 mg PO BID #60 tablet 10/03/16 [Rx] Potassium Chloride [K-Tab ER] 20 meq PO DAILY #30 tablet.er 10/03/16 [Rx] Acetylcysteine [N-Dwgxmm-v-Cysteine] 600 mg PO BID 10/08/16 [History] Warfarin [Coumadin] 7.5 mg PO SUTUTH 12/31/16 [History] Enoxaparin [Lovenox] 60 mg SQ Q12HR #10 syr 01/01/17 [Rx] Allergies ceftriaxone [From Rocephin] Allergy (Severe, Verified 12/31/16 10:05) Hives ciprofloxacin [From Cipro HC] Allergy (Severe, Verified 12/31/16 10:05) Hives levofloxacin [From Levaquin] Allergy (Severe, Verified 12/31/16 10:05) Hives hydrocortisone [From Cipro HC] Allergy (Intermediate, Verified 12/31/16 10:05) Hives vancomycin Allergy (Mild, Verified 12/31/16 14:42) Rash Spoke with ID from [facility], in 2007 presented with skin rash which was subsequently attributed to either vancomycin, amiodarone, or another medicine as all other causes were ruled out. Important to note this was recorded as a rash and not hives, trouble breathing, etc. All Systems: A 10-system review of systems was performed and is negative for pertinent findings except as documented above in the HPI. Physical Examination Vital Signs: Vital Signs, Last 4 Hours Temp Pulse Resp BP Pulse Ox 01/07/17 06:54 97.7 F 93 18 110/76 96 General appearance: no acute distress Eyes: nonicteric Effort: normal Auscultation: bilateral: diminished breath sounds, rhonchi Cardiovascular: regular rate and rhythm Gastrointestinal: normoactive bowel sounds, non-tender Integumentary: normal Extremities: no edema Musculoskeletal: no deformities normal mental status, non-focal exam mood appropriate Results - Laboratory Findings CBC and BMP: 01/06/17 04:23 01/07/17 04:43 PT/INR, D-dimer PT 12.6 Seconds (9.4-12.1) H 01/07/17 04:43 Abnormal lab findings: Abnormal lab results MCH 26.0 pg (28.0-33.3) L 01/06/17 04:23 MCHC 30.8 g/dL (31.6-35.5) L 01/06/17 04:23 RDW 15.6 % (11.5-14.5) H 01/06/17 04:23 PT 12.6 Seconds (9.4-12.1) H 01/07/17 04:43 APTT 65.7 Seconds (26.0-36.0) H 12/31/16 10:56 Potassium 3.4 mEq/L (3.5-4.5) L 01/07/17 04:43 Carbon Dioxide 30 mEq/L (19-29) H 01/07/17 04:43 BUN 38 mg/dL (7-20) H 01/07/17 04:43 Est GFR (Non-Af Amer) 51 (> 60) L 01/07/17 04:43 BUN/Creatinine Ratio 36 (6-26) H 01/07/17 04:43 Glucose 116 mg/dL (70-99) H 01/07/17 04:43 B-Natriuretic Peptide 127 pg/mL (0-100) H 12/31/16 10:56 - Diagnostic Findings Chest x-ray: report reviewed, image reviewed - Clinical Findings Intake & Output: Intake & Output 01/06/17 01/07/17 01/07/17 23:59 07:59 15:59 Intake Total 540 / 540 640 / 640 Output Total 0 / 0 Balance 540 / 540 640 / 640 Weight 59.058 kg Consult Discharge Plan - Plan Instructions: Implanted Venous Access Port (GEN) Referrals: Christoph Hughes DO [Primary Care Provider] - 01/13/17 11:15 am (please follow up as schedule...)
[2017-01-07] MEDS ORDERED: Sodium Chloride for inhalation 3 ML VIAL IH ONE (09:40)
[2017-01-07] MEDS: Lactobacillus 1 EACH CAP.SPRINK PO SCH (10:19)
[2017-01-07] MEDS: Furosemide 40 MG TABLET PO SCH ×2 (10:19→17:50)
[2017-01-07] MEDS: predniSONE 20 MG TABLET PO SCH (10:19)
[2017-01-07] MEDS: Metoprolol XL (24 HR) Succ 25 MG TAB.ER.24H PO SCH ×2 (10:19→20:42)
[2017-01-07] MEDS: Cholecalciferol (D-3) 1,000 UNIT TABLET PO SCH (10:20)
[2017-01-07] MEDS: Fluticasone Propionate Nasal 50 MCG/SPRAY BOTTLE NS SCH (10:20)
[2017-01-07] MEDS: Vitamin B Complex/Vit C/Vit E 1 EACH TABLET PO SCH (10:20)
[2017-01-07] MEDS: Loratadine 10 MG TABLET PO SCH (10:20)
[2017-01-07] MEDS: Diltiazem CD (24hr) 120 MG CAPSULE PO SCH (10:20)
[2017-01-07] MEDS: Sulfamethoxazole/Trimeth DS 1 EACH TABLET PO SCH ×2 (10:24→20:42)
[2017-01-07] MEDS: Budesonide/Formoterol 160/4.5 MDI IH SCH ×2 (11:13→22:57)
[2017-01-07] MEDS: Acetylcysteine 10% 2 ML INHSOL IH SCH ×2 (15:27→22:58)
[2017-01-07] MEDS: *HR* Enoxaparin 60 MG/0.6 ML SYRINGE SQ SCH (17:50)
[2017-01-07] MEDS: Gabapentin 100 MG CAPSULE PO SCH (20:41)
[2017-01-07] MEDS: traMADol 50 MG TABLET PO PRN (21:18)
[2017-01-07] MEDS: GuaiFENesin/Codeine Oral Soln 5 ML UDC PO PRN (21:18)
[2017-01-08] MEDS: traMADol 50 MG TABLET PO PRN ×2 (03:41→21:12)
[2017-01-08] MEDS: Ipratropium/Albuterol Neb 3 ML IH SCH ×4 (04:54→22:32)
[2017-01-08 05:52] LABS: INR 1.3; Prothrombin Time 14.1 Seconds (9.4-12.1)
[2017-01-08 06:10] LABS: Hematocrit 37.6 % (35.3-44.9); Hemoglobin 11.8 g/dL (11.5-15.4); Mean Corpuscular HGB Conc 31.4 g/dL (31.6-35.5); Mean Corpuscular Hemoglobin 26.2 pg (28.0-33.3); Mean Corpuscular Volume 83.6 fL (83.0-100.0); Platelet Count 217 K/mcL (140-400); Red Cell Distribution Width 15.9 % (11.5-14.5)
--- NOTE | 2017-01-08 07:17 | Pulmonology Progress Note ---
Date of Encounter: 01/08/17 Time of Encounter: 07: Assessment and Plan (1) Pneumonia Current Visit: Yes Status: Suspected IMpression: 1. PNA with concern for stenotrophomonas 2. COPD exacerbation 3. Chronic Bronchiectasis 4. Need for long-term anticoagulation Recs: - Continue Bactrim pending cultures continue daily monitoring of renal function -Continue steroids for COPD exacerbation along with bronchodilators dilators which been scheduled and metered-dose inhalers -Continue inhaled Mucomyst 3-4 times daily -Aggressive airway clearance including percussor out of bed to chair ambulation acappella -Continue Lovenox we will reevaluate need for bronchoscopy tomorrow if it appears that she continues to make progress she can be transitioned to oral vitamin K antagonist Qualifiers: Qualified Code(s): J18.9 - Pneumonia, unspecified organism (2) H/O mitral valve replacement with mechanical valve Current Visit: Yes Status: Chronic (3) Acute and chronic respiratory failure Current Visit: No Status: Chronic Qualifiers: Qualified Code(s): J96.21 - Acute and chronic respiratory failure with hypoxia (4) Acute exacerbation of chronic obstructive pulmonary disease (COPD) Current Visit: Yes Status: Acute Subjective Principal diagnosis: COPD exacerbation Interval history: Mrs. Dewitt feels little bit better overnight she was able to bring up some more sputum with the interventions yesterday including inhaled Mucomyst Objective PUL Vital signs: Last Vital Signs Temp 98.2 F 01/08/17 04:44 Pulse 84 01/08/17 04:44 Resp 18 01/08/17 04:54 BP 108/70 01/08/17 04:44 Pulse Ox 96 01/08/17 04:54 General appearance: no acute distress Auscultation: bilateral: diminished breath sounds, rhonchi Cardiovascular: regular rate and rhythm Extremities: no edema normal mental status Results - Laboratory Findings CBC and BMP: 01/08/17 05:35 01/07/17 04:43 PT/INR, D-dimer PT 14.1 Seconds (9.4-12.1) H 01/08/17 05:35 Abnormal lab findings: Abnormal lab results MCH 26.2 pg (28.0-33.3) L 01/08/17 05:35 MCHC 31.4 g/dL (31.6-35.5) L 01/08/17 05:35 RDW 15.9 % (11.5-14.5) H 01/08/17 05:35 PT 14.1 Seconds (9.4-12.1) H 01/08/17 05:35 APTT 65.7 Seconds (26.0-36.0) H 12/31/16 10:56 Potassium 3.4 mEq/L (3.5-4.5) L 01/07/17 04:43 Carbon Dioxide 30 mEq/L (19-29) H 01/07/17 04:43 BUN 38 mg/dL (7-20) H 01/07/17 04:43 Est GFR (Non-Af Amer) 51 (> 60) L 01/07/17 04:43 BUN/Creatinine Ratio 36 (6-26) H 01/07/17 04:43 Glucose 116 mg/dL (70-99) H 01/07/17 04:43 B-Natriuretic Peptide 127 pg/mL (0-100) H 12/31/16 10:56 - Microbiology Findings Microbiology Findings: Microbiology, Last 48 Hours 01/07/17 15:29 Sputum Culture - Preliminary Sputum - Clinical Findings Intake & Output: Intake & Output 01/07/17 01/07/17 01/08/17 15:59 23:59 07:59 Intake Total 120 / 120 0 / 0 Balance 120 / 120 0 / 0 Weight 59.058 kg 59 kg Consult Discharge Plan - Plan Instructions: Implanted Venous Access Port (GEN) Referrals: Christoph Hughes DO [Primary Care Provider] - 01/13/17 11:15 am (please follow up as schedule...)
[2017-01-08] MEDS: Acetylcysteine 10% 2 ML INHSOL IH SCH ×4 (08:30→22:32)
[2017-01-08] MEDS: Loratadine 10 MG TABLET PO SCH (09:41)
[2017-01-08] MEDS: predniSONE 20 MG TABLET PO SCH (09:41)
[2017-01-08] MEDS: Vitamin B Complex/Vit C/Vit E 1 EACH TABLET PO SCH (09:41)
[2017-01-08] MEDS: Lactobacillus 1 EACH CAP.SPRINK PO SCH (09:41)
[2017-01-08] MEDS: Sulfamethoxazole/Trimeth DS 1 EACH TABLET PO SCH ×2 (09:41→21:12)
[2017-01-08] MEDS: Furosemide 40 MG TABLET PO SCH ×2 (09:41→16:38)
[2017-01-08] MEDS: Cholecalciferol (D-3) 1,000 UNIT TABLET PO SCH (09:41)
[2017-01-08] MEDS: Diltiazem CD (24hr) 120 MG CAPSULE PO SCH (09:41)
[2017-01-08] MEDS: Metoprolol XL (24 HR) Succ 25 MG TAB.ER.24H PO SCH ×2 (09:41→21:12)
[2017-01-08] MEDS: *HR* Enoxaparin 60 MG/0.6 ML SYRINGE SQ SCH ×2 (09:42→16:38)
[2017-01-08] MEDS: Fluticasone Propionate Nasal 50 MCG/SPRAY BOTTLE NS SCH (09:46)
[2017-01-08] MEDS: Budesonide/Formoterol 160/4.5 MDI IH SCH ×2 (10:19→22:31)
--- NOTE | 2017-01-08 10:54 | Internal Med Progress Note ---
<Talon Bobo - Last Filed: 01/08/17 15:39> Date of Encounter: 01/08/17 Time of Encounter: 09:30 - Assessment and plan (1) Acute respiratory failure with hypoxia Current Visit: Yes Status: Acute Assessment and plan: - Likely secondary to pneumonia and COPD exacerbation. - Improved as patient is able to maintain good O2 sat on 2L oxygen. - Patient has finished 7-day course of IV Zosyn for pneumonia. Currently on Bactrim. - Continue steroid and bronchodilators for COPD. (2) Pneumonia Current Visit: Yes Status: Suspected Assessment and plan: - CXR on admission found increased density involving the right lower lung, likely pneumonia. - Induced sputum culture from 01/07/17 is negative. - Patient had finished 7-day course of IV Zosyn. Currently on Bactrim as recommended by pulmonology - Based on patient's clinical progression, pulmonology may consider bronchoscopy for further evaluation.. Qualifiers: Pneumonia type: due to unspecified organism Laterality: unspecified laterality Lung location: unspecified part of lung Qualified Code(s): J18.9 - Pneumonia, unspecified organism (3) Atrial fibrillation Current Visit: Yes Status: Chronic Assessment and plan: - Sinus rhythm at this time. - Currently anticoagulated with Lovenox. - Continue rate control with PO Cardizem and Toprol XL. May consider increase dose of Toprol XL if patient continues to have episode(s) of A-fib RVR. - Continue to monitor. Qualifiers: Atrial fibrillation type: paroxysmal Qualified Code(s): I48.0 - Paroxysmal atrial fibrillation (4) COPD exacerbation Current Visit: Yes Status: Acute Assessment and plan: - Continue steroid, bronchodilators and supplemental oxygen. (5) H/O mitral valve replacement with mechanical valve Current Visit: Yes Status: Chronic Assessment and plan: - Therapeutic INR goal is 3.0 for mechanical mitral valve. - Currently on Lovenox. - INR 1.3 today. - Pulmonology recommends to hold Coumadin for now for possible bronchoscopy - Continue to monitor. (6) Diastolic heart failure Current Visit: No Status: Chronic Assessment and plan: - Continue Lasix. Qualifiers: Heart failure chronicity: chronic Qualified Code(s): I50.32 - Chronic diastolic (congestive) heart failure (7) Hypertension Current Visit: Yes Status: Chronic Assessment and plan: - Continue to monitor BP. Qualifiers: Hypertension type: essential hypertension Qualified Code(s): I10 - Essential (primary) hypertension (8) Hypokalemia Current Visit: Yes Status: Acute Assessment and plan: - K 3.4 yesterday. - Continue KCl supplement as needed. - Subjective Interval history: Per nurse, patient had A-fib with rate as high as 150s last night but self- converted in a hour. Patient was seen and examined at bedside this morning. Patient still has some cough but reports able to cough up some sputum. Patient denies fever, chills, nausea, vomiting, diarrhea, abdominal pain, chest pain. - Constitutional Vitals: Temp Pulse Resp BP Pulse Ox 97.9 F 80 20 121/79 97 01/08/17 08:00 01/08/17 08:00 01/08/17 10:20 01/08/17 08:00 01/08/17 10:20 General appearance: Present: cooperative, A&O X 3, pleasant, answers questions appropriately - Head Head exam: Present: atraumatic, normocephalic - Eye Eye exam: Present: EOMI, PERRL, conjuntiva pink, sclera anicteric - Neck Neck exam general surgery: Present: supple, trachea midline. Absent: lymphadenopathy - Respiratory Respiratory exam: Present: rhonchi (Occasional), wheezes (occasional). Absent: accessory muscle use, rales - Cardiovascular Cardiovascular exam: Present: RRR, +S1, +S2. Absent: diastolic murmur, gallop, rubs, systolic murmur - GI/Abdominal GI/Abdominal exam: Present: normal bowel sounds, soft, no peritoneal signs. Absent: distended, tenderness - Extremities Exam Extremities exam: Present: warm, radial pulses palpable and symetrical. Absent : calf tenderness, cyanotic, pedal edema - Neurological Exam Neurological exam: Present: CN II-XII intact, oriented X3, no focal deficits. Absent: pronater drift, facial droop, speech deficit - Skin Skin exam: Present: dry, intact, warm Internal Medicine: Result - Labs CBC & Chem 7: 01/08/17 05:35 01/07/17 04:43 Labs: Short CBC 01/08/17 Range/Units 05:35 WBC 9.7 (4.3-11.1) K/mcL Hgb 11.8 (11.5-15.4) g/dL Hct 37.6 (35.3-44.9) % Plt Count 217 (140-400) K/mcL - ABG Interpretation ABG results: PT/INR, D-dimer PT 14.1 Seconds (9.4-12.1) H 01/08/17 05:35 Consult Discharge Plan - Plan Instructions: Implanted Venous Access Port (GEN) Referrals: Christoph Hughes, [Primary Care Provider] - 01/13/17 11:15 am (please follow up as schedule...) <Naveen Hatfield - Last Filed: 01/08/17 17:37> Date of Encounter: 01/08/17 - Assessment and plan (1) Acute respiratory failure with hypoxia Current Visit: Yes Status: Acute (2) Pneumonia Current Visit: Yes Status: Suspected Qualifiers: Pneumonia type: due to unspecified organism Laterality: unspecified laterality Lung location: unspecified part of lung Qualified Code(s): J18.9 - Pneumonia, unspecified organism (3) Atrial fibrillation Current Visit: Yes Status: Chronic Qualifiers: Atrial fibrillation type: paroxysmal Qualified Code(s): I48.0 - Paroxysmal atrial fibrillation (4) COPD exacerbation Current Visit: Yes Status: Acute (5) Hypertension Current Visit: Yes Status: Chronic Qualifiers: Hypertension type: essential hypertension Qualified Code(s): I10 - Essential (primary) hypertension (6) H/O mitral valve replacement with mechanical valve Current Visit: Yes Status: Chronic (7) CKD (chronic kidney disease) stage 3, GFR 30-59 ml/min Current Visit: Yes Status: Chronic (8) Diastolic CHF Current Visit: Yes Status: Chronic Qualifiers: Congestive heart failure chronicity: chronic Qualified Code(s): I50.32 - Chronic diastolic (congestive) heart failure (9) KYLIE (obstructive sleep apnea) Current Visit: Yes Status: Chronic - Constitutional Vitals: Temp Pulse Resp BP Pulse Ox 98.3 F 96 18 109/68 96 01/08/17 15:01 01/08/17 15:01 01/08/17 16:17 01/08/17 15:01 01/08/17 16:17 Internal Medicine: Result - Labs CBC & Chem 7: 01/08/17 05:35 01/07/17 04:43 Labs: Short CBC 01/08/17 Range/Units 05:35 WBC 9.7 (4.3-11.1) K/mcL Hgb 11.8 (11.5-15.4) g/dL Hct 37.6 (35.3-44.9) % Plt Count 217 (140-400) K/mcL - ABG Interpretation ABG results: PT/INR, D-dimer PT 14.1 Seconds (9.4-12.1) H 01/08/17 05:35 - Attending Attestation I examined this patient and my medical decision-making was reviewed with the Resident Physician on 01/08/17. I agree with the documented findings, disposition and treatment plan as described except to the extent set forth below. Ms. Dewitt is currently admitted for acute pneumonia and hypoxia. She is moderate to high risk due to potential for worsening respiratory status. Ms. Dewitt feels OK at this time. She is still coughing quite a bit. No fever or chills. No abd pain. Has noticed a small lump in R axillary area. Had some rapid a fib yesterday. Exam Alert. Comfortable Heart irreg - not tachy Lungs with rhonchi ? small lymph node in R side I/P 1. Pneumonia 2 Hypoxia 3. Lymph node - outpatient mammogram Further diagnoses and plan as above.
--- NOTE | 2017-01-08 17:46 | Electrocardiograph Report ---
[address] [address] Test Date: 2017-01-08 Pat Name: Yasmeen Dewitt Department: 112 Room: 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
[2017-01-08 18:50] LABS: Calcium 9.8 mg/dL (8.6-10.8)
[2017-01-08 20:00] LABS: Potassium 4.6 mEq/L (3.5-4.5)
[2017-01-08] MEDS: GuaiFENesin/Codeine Oral Soln 5 ML UDC PO PRN (21:11)
[2017-01-08] MEDS: Gabapentin 100 MG CAPSULE PO SCH (21:12)
[2017-01-09] MEDS: Ipratropium/Albuterol Neb 3 ML IH SCH ×4 (04:49→22:27)
[2017-01-09] MEDS: Acetylcysteine 10% 2 ML INHSOL IH SCH ×4 (04:49→22:27)
[2017-01-09] MEDS: *HR* Enoxaparin 60 MG/0.6 ML SYRINGE SQ SCH (06:13)
[2017-01-09 06:57] LABS: INR 1.1; Prothrombin Time 11.7 Seconds (9.4-12.1)
[2017-01-09 07:07] LABS: Calcium 9.2 mg/dL (8.6-10.8)
--- NOTE | 2017-01-09 07:07 | Pulmonology Progress Note ---
Date of Encounter: 01/09/17 Time of Encounter: 07:07 Assessment and Plan (1) Pneumonia Current Visit: Yes Status: Suspected IMpression: 1. PNA with concern for stenotrophomonas 2. COPD exacerbation 3. Chronic Bronchiectasis 4. Need for long-term anticoagulation Recs: - Continue Bactrim pending cultures continue daily monitoring of renal function -Continue steroids for COPD exacerbation along with bronchodilators dilators which been scheduled and metered-dose inhalers -Continue inhaled Mucomyst 3-4 times daily -Aggressive airway clearance including percussor out of bed to chair ambulation acappella -Continue Lovenox we will reevaluate need for bronchoscopy tomorrow if it appears that she continues to make progress she can be transitioned to oral vitamin K antagonist Qualifiers: Pneumonia type: due to unspecified organism Laterality: unspecified laterality Lung location: unspecified part of lung Qualified Code(s): J18.9 - Pneumonia, unspecified organism (2) H/O mitral valve replacement with mechanical valve Current Visit: Yes Status: Chronic (3) Acute and chronic respiratory failure Current Visit: No Status: Chronic Qualifiers: Respiratory failure complication: hypoxia Qualified Code(s): J96.21 - Acute and chronic respiratory failure with hypoxia (4) Acute exacerbation of chronic obstructive pulmonary disease (COPD) Current Visit: Yes Status: Acute Subjective Principal diagnosis: COPD exacerbation Interval history: Mrs. Dewitt feels little bit better overnight she was able to bring up some more sputum with the interventions yesterday including inhaled Mucomyst Objective PUL Vital signs: Last Vital Signs Temp 97.7 F 01/09/17 04:44 Pulse 82 01/09/17 04:44 Resp 18 01/09/17 04:49 BP 103/65 01/09/17 04:44 Pulse Ox 97 01/09/17 04:51 Results - Laboratory Findings CBC and BMP: 01/08/17 05:35 01/08/17 17:25 PT/INR, D-dimer PT 11.7 Seconds (9.4-12.1) 01/09/17 06:36 Abnormal lab findings: Abnormal lab results MCH 26.2 pg (28.0-33.3) L 01/08/17 05:35 MCHC 31.4 g/dL (31.6-35.5) L 01/08/17 05:35 RDW 15.9 % (11.5-14.5) H 01/08/17 05:35 APTT 65.7 Seconds (26.0-36.0) H 12/31/16 10:56 Potassium 4.6 mEq/L (3.5-4.5) H D 01/08/17 17:25 BUN 37 mg/dL (7-20) H 01/08/17 17:25 Creatinine 1.27 mg/dL (0.57-1.11) H 01/08/17 17:25 Est GFR ( Amer) 51 (> 60) L 01/08/17 17:25 Est GFR (Non-Af Amer) 42 (> 60) L 01/08/17 17:25 BUN/Creatinine Ratio 29 (6-26) H 01/08/17 17:25 Glucose 142 mg/dL (70-99) H 01/08/17 17:25 B-Natriuretic Peptide 127 pg/mL (0-100) H 12/31/16 10:56 - Microbiology Findings Microbiology Findings: Microbiology, Last 48 Hours 01/07/17 15:29 Sputum Culture - Preliminary Sputum Gram Negative Aleks 01/07/17 15:29 Acid Fast Stain - Final Sputum - Clinical Findings Intake & Output: Intake & Output 01/08/17 01/08/17 01/09/17 15:59 23:59 07:59 Intake Total 480 / 480 1040 / 1040 Output Total 0 / 0 Balance 480 / 480 1040 / 1040 Weight 59 kg 54.4 kg Consult Discharge Plan - Plan Instructions: Implanted Venous Access Port (GEN) Referrals: Christoph Hughes DO [Primary Care Provider] - 01/13/17 11:15 am (please follow up as schedule...)
[2017-01-09 07:08] LABS: Potassium 3.4 mEq/L (3.5-4.5)
[2017-01-09] MEDS: Lactobacillus 1 EACH CAP.SPRINK PO SCH (09:57)
[2017-01-09] MEDS: Furosemide 40 MG TABLET PO SCH ×2 (09:57→17:15)
[2017-01-09] MEDS: predniSONE 20 MG TABLET PO SCH (09:57)
[2017-01-09] MEDS: Loratadine 10 MG TABLET PO SCH (09:57)
[2017-01-09] MEDS: Metoprolol XL (24 HR) Succ 25 MG TAB.ER.24H PO SCH ×2 (09:58→21:48)
[2017-01-09] MEDS: Vitamin B Complex/Vit C/Vit E 1 EACH TABLET PO SCH (09:58)
[2017-01-09] MEDS: Diltiazem CD (24hr) 120 MG CAPSULE PO SCH (09:58)
[2017-01-09] MEDS: Sulfamethoxazole/Trimeth DS 1 EACH TABLET PO SCH ×2 (09:59→21:48)
[2017-01-09] MEDS: Cholecalciferol (D-3) 1,000 UNIT TABLET PO SCH (09:59)
[2017-01-09] MEDS: Fluticasone Propionate Nasal 50 MCG/SPRAY BOTTLE NS SCH (10:00)
--- NOTE | 2017-01-09 10:55 | Internal Med Progress Note ---
<Talon Bobo - Last Filed: 01/09/17 12:49> Date of Encounter: 01/09/17 Time of Encounter: 09:00 - Assessment and plan (1) Acute respiratory failure with hypoxia Current Visit: Yes Status: Acute Assessment and plan: - Likely secondary to pneumonia and COPD exacerbation. - Improved as patient is able to maintain good O2 sat on 2L oxygen. - Patient has finished 7-day course of IV Zosyn for pneumonia. Currently on Bactrim. - Continue steroid and bronchodilators for COPD. (2) Pneumonia Current Visit: Yes Status: Suspected Assessment and plan: - CXR on admission found increased density involving the right lower lung, likely pneumonia. - Induced sputum culture from 01/07/17 is negative. - Patient had finished 7-day course of IV Zosyn. Currently on Bactrim (since 01/07 ). - Pulmonology plans to have bronchoscopy tomorrow for further evaluation. Qualifiers: Pneumonia type: due to unspecified organism Laterality: unspecified laterality Lung location: unspecified part of lung Qualified Code(s): J18.9 - Pneumonia, unspecified organism (3) Atrial fibrillation Current Visit: Yes Status: Chronic Assessment and plan: - Sinus rhythm at this time. - Currently anticoagulated with Lovenox. - Continue rate control with PO Cardizem and Toprol XL. May consider increase dose of Toprol XL if patient continues to have episode(s) of A-fib RVR. - Continue to monitor. Qualifiers: Atrial fibrillation type: paroxysmal Qualified Code(s): I48.0 - Paroxysmal atrial fibrillation (4) COPD exacerbation Current Visit: Yes Status: Acute Assessment and plan: - Continue steroid, bronchodilators and supplemental oxygen. (5) H/O mitral valve replacement with mechanical valve Current Visit: Yes Status: Chronic Assessment and plan: - Therapeutic INR goal is 3.0 for mechanical mitral valve. - Currently on Lovenox. - INR 1.1 today. - Will hold Lovenox given pulmonology plans to have bronchoscopy tomorrow. - Continue to monitor. (6) Diastolic heart failure Current Visit: No Status: Chronic Assessment and plan: - Continue Lasix. Qualifiers: Heart failure chronicity: chronic Qualified Code(s): I50.32 - Chronic diastolic (congestive) heart failure (7) Hypertension Current Visit: Yes Status: Chronic Assessment and plan: - Continue to monitor BP. Qualifiers: Hypertension type: essential hypertension Qualified Code(s): I10 - Essential (primary) hypertension (8) Hypokalemia Current Visit: Yes Status: Acute Assessment and plan: - K 3.4 today. - Continue KCl supplement. (9) Axillary lymphadenopathy Current Visit: Yes Status: Acute Assessment and plan: - Right axillary lymph node on palpation. - Likely associated with new port placement on right chest. - Patient has been complaint on her routine mammogram and is scheduled to have one after discharge. - Subjective Interval history: No significant event noted overnight. Patient was seen and examined at bedside this morning. Patient still has some cough but feels being able to move mucus better. Patient denies fever, chills, nausea, vomiting, diarrhea, abdominal pain , chest pain. - Constitutional Vitals: Temp Pulse Resp BP Pulse Ox 98.8 F 82 16 107/71 96 01/09/17 07:45 01/09/17 07:45 01/09/17 07:45 01/09/17 07:45 01/09/17 07:45 General appearance: Present: cooperative, A&O X 3, pleasant, answers questions appropriately - Head Head exam: Present: atraumatic, normocephalic - Eye Eye exam: Present: EOMI, PERRL, conjuntiva pink, sclera anicteric - Neck Neck exam general surgery: Present: supple, trachea midline. Absent: lymphadenopathy - Respiratory Respiratory exam: Present: rhonchi (Few). Absent: accessory muscle use, rales, wheezes - Cardiovascular Cardiovascular exam: Present: RRR, +S1, +S2. Absent: diastolic murmur, gallop, rubs, systolic murmur - GI/Abdominal GI/Abdominal exam: Present: normal bowel sounds, soft, no peritoneal signs. Absent: distended, tenderness - Extremities Exam Extremities exam: Present: warm, radial pulses palpable and symetrical. Absent : calf tenderness, cyanotic, pedal edema Additional comments: Right axillary lymph node noted with no tenderness to palpation. - Neurological Exam Neurological exam: Present: CN II-XII intact, oriented X3, no focal deficits. Absent: pronater drift, facial droop, speech deficit - Skin Skin exam: Present: dry, intact, warm Internal Medicine: Result - Labs CBC & Chem 7: 01/08/17 05:35 01/09/17 06:36 Labs: BMP 01/08/17 01/09/17 17:25 06:36 Sodium 137 138 Potassium 4.6 H D 3.4 L D Chloride 99 98 Carbon Dioxide 24 31 H BUN 37 H 41 H Creatinine 1.27 H 1.30 H Glucose 142 H 106 H Calcium 9.8 9.2 - ABG Interpretation ABG results: PT/INR, D-dimer PT 11.7 Seconds (9.4-12.1) 01/09/17 06:36 Consult Discharge Plan - Plan Instructions: Implanted Venous Access Port (GEN) Referrals: Christoph Hughes DO [Primary Care Provider] - 01/13/17 11:15 am (please follow up as schedule...) <Naveen Hatfield - Last Filed: 01/09/17 17:05> Date of Encounter: 01/09/17 - Assessment and plan (1) Acute respiratory failure with hypoxia Current Visit: Yes Status: Acute (2) Pneumonia Current Visit: Yes Status: Suspected Qualifiers: Pneumonia type: due to unspecified organism Laterality: unspecified laterality Lung location: unspecified part of lung Qualified Code(s): J18.9 - Pneumonia, unspecified organism (3) Atrial fibrillation Current Visit: Yes Status: Chronic Qualifiers: Atrial fibrillation type: paroxysmal Qualified Code(s): I48.0 - Paroxysmal atrial fibrillation (4) COPD exacerbation Current Visit: Yes Status: Acute (5) Hypertension Current Visit: Yes Status: Chronic Qualifiers: Hypertension type: essential hypertension Qualified Code(s): I10 - Essential (primary) hypertension (6) CKD (chronic kidney disease) stage 3, GFR 30-59 ml/min Current Visit: Yes Status: Chronic (7) H/O mitral valve replacement with mechanical valve Current Visit: Yes Status: Chronic (8) Diastolic CHF Current Visit: Yes Status: Chronic Qualifiers: Congestive heart failure chronicity: chronic Qualified Code(s): I50.32 - Chronic diastolic (congestive) heart failure (9) KYLIE (obstructive sleep apnea) Current Visit: Yes Status: Chronic - Constitutional Vitals: Temp Pulse Resp BP Pulse Ox 97.9 F 88 16 108/72 97 01/09/17 11:13 01/09/17 11:13 01/09/17 16:05 01/09/17 11:13 07/08/17 16:05 Internal Medicine: Result - Labs CBC & Chem 7: 01/08/17 05:35 01/09/17 06:36 Labs: BMP 01/08/17 01/09/17 17:25 06:36 Sodium 137 138 Potassium 4.6 H D 3.4 L D Chloride 99 98 Carbon Dioxide 24 31 H BUN 37 H 41 H Creatinine 1.27 H 1.30 H Glucose 142 H 106 H Calcium 9.8 9.2 - ABG Interpretation ABG results: PT/INR, D-dimer PT 11.7 Seconds (9.4-12.1) 01/09/17 06:36 - Attending Attestation I examined this patient and my medical decision-making was reviewed with the Resident Physician on 01/09/17. I agree with the documented findings, disposition and treatment plan as described except to the extent set forth below. Ms. Dewitt is currently admitted for acute PNA and COPD exacerbation. She remains moderate to high risk due to potential for worsening respiratory status. Ms. Dewitt is still coughing a lot. No fever or chills. No pain. Up a lot at night. No GI symptoms. Exam Alert. Comfortable Heart reg Rhonchi throughout No edema Abd soft I/P 1. Hypoxia 2. Pneumonia Plan is for bronch tomorrow. Sputum cx final pending.
[2017-01-09] MEDS: Budesonide/Formoterol 160/4.5 MDI IH SCH ×2 (11:16→22:27)
--- NOTE | 2017-01-09 15:50 | Event Note ---
Date of Encounter: 01/09/17 Time of Encounter: 15:48 She remains congested despite ongoing airway clearance antimicrobials bronchodilators and st plan to proceed with bronchoscopy tomorrow for suctioning and additional microbiological samples. Of note she is growing gram- negative rods from sputum this may be consistent with resistant pseudomonas we will have to see what the final cultures come back as. I would not change any of her antimicrobials in the interim. Keep nothing by mouth at midnight would not give evening dose of Lovenox she will need a set of coags including PTT and PT/INR prior to bronchoscopy tomorrow which should happen early approximately 7 to 7:30 AM I discussed my observations and plan with the primary medicine service under the care of Dr. Hatfield
[2017-01-09] MEDS: traMADol 50 MG TABLET PO PRN (18:25)
[2017-01-09] MEDS: Gabapentin 100 MG CAPSULE PO SCH (21:48)
[2017-01-09] MEDS: GuaiFENesin/Codeine Oral Soln 5 ML UDC PO PRN (21:55)
[2017-01-10] MEDS: Ipratropium/Albuterol Neb 3 ML IH SCH ×4 (03:35→21:09)
[2017-01-10] MEDS: Acetylcysteine 10% 2 ML INHSOL IH SCH ×4 (03:35→21:09)
[2017-01-10 03:53] LABS: Hematocrit 39.9 % (35.3-44.9); Hemoglobin 12.6 g/dL (11.5-15.4); Mean Corpuscular HGB Conc 31.6 g/dL (31.6-35.5); Mean Corpuscular Hemoglobin 26.5 pg (28.0-33.3); Mean Corpuscular Volume 83.8 fL (83.0-100.0); Platelet Count 259 K/mcL (140-400); Red Blood Count 4.76 M/mcL (3.82-4.97); Red Cell Distribution Width 15.9 % (11.5-14.5)
[2017-01-10 03:58] LABS: INR 1.1; Prothrombin Time 11.4 Seconds (9.4-12.1)
[2017-01-10 04:12] LABS: Calcium 9.3 mg/dL (8.6-10.8); Potassium 3.6 mEq/L (3.5-4.5)
[2017-01-10] MEDS ORDERED: *HR* Midazolam HCl 5 MG/5 ML VIAL IVP ONE (06:37)
[2017-01-10] MEDS ORDERED: *HR* FentaNYL (PF) 100 MCG/2 ML VIAL ONE (06:38)
[2017-01-10] MEDS ORDERED: Lidocaine Viscous Oral Soln 15 ML SOLUTION ONE (06:38)
[2017-01-10] MEDS ORDERED: *HR* FentaNYL (PF) 100 MCG/2 ML VIAL IVP PRN (07:04)
[2017-01-10] MEDS ORDERED: Tetracaine/Benzocaine/Butamben 200MG/SPRAY (100SPY/BOT) MM ONE (07:04)
[2017-01-10] MEDS ORDERED: *HR* EPINEPHrine 1 MG/10 ML SYRINGE INTRATRACH PRN (07:04)
[2017-01-10] MEDS ORDERED: *HR* Midazolam HCl 5 MG/5 ML VIAL IVP PRN (07:04)
--- NOTE | 2017-01-10 07:04 | Pre-Sedation Evaluation ---
Pre-sedation evaluation - Pre-sedation checklist Date of procedure: 01/10/17 Procedure: Broncoscopy Recent Vitals: Last Vital Signs Temp 98.2 F 01/10/17 06:54 Pulse 88 01/10/17 06:54 Resp 18 01/10/17 06:54 BP 120/78 01/10/17 06:54 Pulse Ox 95 01/10/17 06:54 H&P (including ROS) documented in medical record: Yes Previous reaction to sedatives/anesthetics: No Dietary Status: NPO after Midnight Airway Assessment: Patient can open mouth completely, TMJ function normal Dentition: dentures removed Possible difficult airway: No ASA Classification *see protocol: CLASS IV-Severe systemic disease/constant threat to pt's life Plan of Care: Pt appropriate candidate for procedure/moderate/conscious sedation , Risks/benefits of procedure/sedation discussed w/ patient/family
[2017-01-10] MEDS ORDERED: 0.9 % Sodium Chloride 1,000 ML IVC SCH (07:15)
[2017-01-10] MEDS ORDERED: *HR* EPINEPHrine 1 MG/10 ML SYRINGE ONE (08:33)
[2017-01-10] MEDS: Vitamin B Complex/Vit C/Vit E 1 EACH TABLET PO SCH (09:44)
[2017-01-10] MEDS: Cholecalciferol (D-3) 1,000 UNIT TABLET PO SCH (09:44)
[2017-01-10] MEDS: Metoprolol XL (24 HR) Succ 25 MG TAB.ER.24H PO SCH ×2 (09:45→22:42)
[2017-01-10] MEDS: Furosemide 40 MG TABLET PO SCH ×2 (09:45→18:30)
[2017-01-10] MEDS: Loratadine 10 MG TABLET PO SCH (09:45)
[2017-01-10] MEDS: Lactobacillus 1 EACH CAP.SPRINK PO SCH (09:45)
[2017-01-10] MEDS: Sulfamethoxazole/Trimeth DS 1 EACH TABLET PO SCH (09:45)
[2017-01-10] MEDS: predniSONE 20 MG TABLET PO SCH (09:45)
[2017-01-10] MEDS: Diltiazem CD (24hr) 120 MG CAPSULE PO SCH (09:46)
[2017-01-10] MEDS: Fluticasone Propionate Nasal 50 MCG/SPRAY BOTTLE NS SCH (09:47)
[2017-01-10] MEDS: Budesonide/Formoterol 160/4.5 MDI IH SCH ×2 (10:58→21:09)
--- NOTE | 2017-01-10 11:28 | Internal Med Progress Note ---
<Talon Bobo - Last Filed: 01/10/17 13:55> Date of Encounter: 01/10/17 Time of Encounter: 08:45 - Assessment and plan (1) Acute respiratory failure with hypoxia Current Visit: Yes Status: Acute Assessment and plan: - Likely secondary to pneumonia and COPD exacerbation. - Improved as patient is able to maintain good O2 sat on 2L oxygen. - Continue Bactrim for pneumonia. - Continue steroid, bronchodilators and supplemental oxygen for COPD. - Continue to monitor. (2) Pneumonia Current Visit: Yes Status: Suspected Assessment and plan: - CXR on admission found increased density involving the right lower lung, likely pneumonia. - Induced sputum culture from 01/07/17 grew Stenotrophomonas maltophilia, sensitive to levofloxacin and Bactrim. - Bronchoscopy today found acute on chronic bronchitic changes with mucopurulent secretions throughout the tracheobronchial tree, especially in the right lower lobe. - Pending BAL culture. - Continue Bactrim (since 01/07). - Pulmonology on board. Appreciate recommendations. Qualifiers: Pneumonia type: due to other aerobic Gram-negative bacteria Laterality: bilateral Lung location: unspecified part of lung Qualified Code(s): J15.6 - Pneumonia due to other aerobic Gram-negative bacteria (3) COPD exacerbation Current Visit: Yes Status: Acute Assessment and plan: - Continue steroid, bronchodilators and supplemental oxygen. (4) Atrial fibrillation Current Visit: Yes Status: Chronic Assessment and plan: - Sinus rhythm at this time. - Currently anticoagulated with Lovenox and Coumadin - Continue rate control with PO Cardizem and Toprol XL. May consider increase dose of Toprol XL if patient continues to have episode(s) of A-fib RVR. - Continue to monitor. Qualifiers: Atrial fibrillation type: paroxysmal Qualified Code(s): I48.0 - Paroxysmal atrial fibrillation (5) H/O mitral valve replacement with mechanical valve Current Visit: Yes Status: Chronic Assessment and plan: - Therapeutic INR goal is 3.0 for mechanical mitral valve. - INR 1.1 today. - Will restart Lovenox and Coumadin. - Continue to monitor. (6) Diastolic heart failure Current Visit: No Status: Chronic Assessment and plan: - Continue Lasix. Qualifiers: Heart failure chronicity: chronic Qualified Code(s): I50.32 - Chronic diastolic (congestive) heart failure (7) Hypertension Current Visit: Yes Status: Chronic Assessment and plan: - Continue to monitor BP. Qualifiers: Hypertension type: essential hypertension Qualified Code(s): I10 - Essential (primary) hypertension (8) Hypokalemia Current Visit: Yes Status: Acute Assessment and plan: - Resolved as K 3.6 today. - Continue KCl supplement. (9) Axillary lymphadenopathy Current Visit: Yes Status: Acute Assessment and plan: - Right axillary lymph node on palpation. - Likely associated with new port placement on right chest. - Patient has been compliant on her routine mammogram and is scheduled to have one after discharge. - Subjective Interval history: No significant event noted overnight. Patient was seen and examined this morning right after patient coming back from bronchoscopy. Patient still has some cough but overall feels better for her breathing. Patient denies fever, chills, nausea, vomiting, diarrhea, abdominal pain, chest pain. - Constitutional Vitals: Temp Pulse Resp BP Pulse Ox 97.4 F L 83 16 104/70 94 01/10/17 08:05 01/10/17 08:05 01/10/17 08:05 01/10/17 10:02 01/10/17 08:05 General appearance: Present: cooperative, A&O X 3, pleasant, answers questions appropriately - Head Head exam: Present: atraumatic, normocephalic - Eye Eye exam: Present: EOMI, PERRL, conjuntiva pink, sclera anicteric - Neck Neck exam general surgery: Present: supple, trachea midline. Absent: lymphadenopathy - Respiratory Respiratory exam: Present: CTAB. Absent: accessory muscle use, rales, rhonchi, wheezes - Cardiovascular Cardiovascular exam: Present: RRR, +S1, +S2. Absent: diastolic murmur, gallop, rubs, systolic murmur - GI/Abdominal GI/Abdominal exam: Present: normal bowel sounds, soft, no peritoneal signs. Absent: distended, tenderness - Extremities Exam Extremities exam: Present: warm, radial pulses palpable and symetrical. Absent : calf tenderness, cyanotic, pedal edema - Neurological Exam Neurological exam: Present: CN II-XII intact, oriented X3, no focal deficits. Absent: pronater drift, facial droop, speech deficit - Skin Skin exam: Present: dry, intact, warm Internal Medicine: Result - Labs CBC & Chem 7: 01/10/17 03:06 01/10/17 03:06 Labs: Short CBC 01/10/17 Range/Units 03:06 WBC 13.3 H (4.3-11.1) K/mcL Hgb 12.6 (11.5-15.4) g/dL Hct 39.9 (35.3-44.9) % Plt Count 259 (140-400) K/mcL BMP 01/10/17 03:06 Sodium 138 Potassium 3.6 Chloride 99 Carbon Dioxide 32 H BUN 42 H Creatinine 1.26 H Glucose 93 Calcium 9.3 - ABG Interpretation ABG results: PT/INR, D-dimer PT 11.4 Seconds (9.4-12.1) 01/10/17 03:06 Consult Discharge Plan - Plan Instructions: Implanted Venous Access Port (GEN) Referrals: Christoph Hughes DO [Primary Care Provider] - 01/13/17 11:15 am (please follow up as schedule...) <Naveen Hatfield - Last Filed: 01/10/17 15:10> Date of Encounter: 01/10/17 - Assessment and plan (1) Acute respiratory failure with hypoxia Current Visit: Yes Status: Acute (2) Pneumonia Current Visit: Yes Status: Suspected Qualifiers: Pneumonia type: due to other aerobic Gram-negative bacteria Laterality: bilateral Lung location: unspecified part of lung Qualified Code(s): J15.6 - Pneumonia due to other aerobic Gram-negative bacteria (3) Infection due to multidrug-resistant Stenotrophomonas maltophilia Current Visit: Yes Status: Acute (4) Atrial fibrillation Current Visit: Yes Status: Chronic Qualifiers: Atrial fibrillation type: paroxysmal Qualified Code(s): I48.0 - Paroxysmal atrial fibrillation (5) COPD exacerbation Current Visit: Yes Status: Acute (6) Hypertension Current Visit: Yes Status: Chronic Qualifiers: Hypertension type: essential hypertension Qualified Code(s): I10 - Essential (primary) hypertension (7) CKD (chronic kidney disease) stage 3, GFR 30-59 ml/min Current Visit: Yes Status: Chronic (8) H/O mitral valve replacement with mechanical valve Current Visit: Yes Status: Chronic (9) Diastolic CHF Current Visit: Yes Status: Chronic Qualifiers: Congestive heart failure chronicity: chronic Qualified Code(s): I50.32 - Chronic diastolic (congestive) heart failure (10) KYLIE (obstructive sleep apnea) Current Visit: Yes Status: Chronic - Constitutional Vitals: Temp Pulse Resp BP Pulse Ox 97.4 F L 83 16 104/70 94 01/10/17 08:05 01/10/17 08:05 01/10/17 08:05 01/10/17 10:02 01/10/17 08:05 Internal Medicine: Result - Labs CBC & Chem 7: 01/10/17 03:06 01/10/17 03:06 Labs: Short CBC 01/10/17 Range/Units 03:06 WBC 13.3 H (4.3-11.1) K/mcL Hgb 12.6 (11.5-15.4) g/dL Hct 39.9 (35.3-44.9) % Plt Count 259 (140-400) K/mcL BMP 01/10/17 03:06 Sodium 138 Potassium 3.6 Chloride 99 Carbon Dioxide 32 H BUN 42 H Creatinine 1.26 H Glucose 93 Calcium 9.3 - ABG Interpretation ABG results: PT/INR, D-dimer PT 11.4 Seconds (9.4-12.1) 01/10/17 03:06 - Attending Attestation I examined this patient and my medical decision-making was reviewed with the Resident Physician on 01/10/17. I agree with the documented findings, disposition and treatment plan as described except to the extent set forth below. Ms. Dewitt is currently admitted for hypoxia and pneumonia. She is currently moderate to high risk due to potential for worsening resp status. Ms. Dewitt had bronch this AM. Secretions removed. Culture with Stenotrophomonas. She feels OK now. No fever or chills. No GI symptoms. Exam Alert. Comfortable Mucus membranes dry Heart reg Coarse rhonchi present Abd soft I/P 1. Hypoxia 2. Pneumonia - Stenotrophomonas Further diagnoses and plan as above. Restart coumadin today.
--- NOTE | 2017-01-10 12:04 | Event Note ---
Date of Encounter: 01/10/17 Time of Encounter: 12:01 Status post bronchoscopy which she tolerated fairly well. She had evidence of acute on chronic bronchitic changes with mucopurulent secretions throughout the tracheobronchial tree but most notable in the right lower lobe. I performed suctioning on both sides of the tracheobronchial tree and perform BAL in the right middle lobe.Sputum culture from sample obtained 2 days ago is positive for stenotrophomonas and she remains on Bactrim therapy We do follow-up the results of BAL and see if there is any additional antimicrobials that would be necessary. From pulmonary standpoint she can be restarted on her senior care anticoagulation whenever the primary medicine team is ready. Continue all other therapies as outlined in Dr. Siddiqi will be made aware of the patient being in the hospital and he will stop by early part of this week to check in on her
[2017-01-10] MEDS ORDERED: Warfarin perPT PO PRN (18:00)
[2017-01-10] MEDS ORDERED: *HR* Warfarin 7.5 MG TABLET PO SCH (18:00)
[2017-01-10] MEDS: GuaiFENesin/Codeine Oral Soln 5 ML UDC PO PRN (22:41)
[2017-01-10] MEDS: Gabapentin 100 MG CAPSULE PO SCH (22:41)
[2017-01-10] MEDS: Sulfamethoxazole/Trimeth SS 1 TAB PO SCH (22:41)
[2017-01-10] MEDS: traMADol 50 MG TABLET PO PRN (22:41)
[2017-01-11 03:38] LABS: Hematocrit 38.1 % (35.3-44.9); Hemoglobin 11.8 g/dL (11.5-15.4); Mean Corpuscular Hemoglobin 26.4 pg (28.0-33.3); Mean Corpuscular Volume 85.2 fL (83.0-100.0); Mean Platelet Volume 10.7 fL (9.4-12.4); Platelet Count 201 K/mcL (140-400); Red Blood Count 4.47 M/mcL (3.82-4.97); Red Cell Distribution Width 15.9 % (11.5-14.5)
[2017-01-11 03:48] LABS: Prothrombin Time 11.3 Seconds (9.4-12.1)
[2017-01-11 03:51] LABS: Calcium 9.1 mg/dL (8.6-10.8)
[2017-01-11] MEDS: Ipratropium/Albuterol Neb 3 ML IH SCH ×4 (04:47→22:22)
[2017-01-11] MEDS: Acetylcysteine 10% 2 ML INHSOL IH SCH ×4 (04:49→22:22)
[2017-01-11] MEDS: *HR* Enoxaparin 60 MG/0.6 ML SYRINGE SQ SCH (05:41)
[2017-01-11] MEDS: traMADol 50 MG TABLET PO PRN ×2 (08:08→21:58)
[2017-01-11] MEDS: Vitamin B Complex/Vit C/Vit E 1 EACH TABLET PO SCH (08:08)
[2017-01-11] MEDS: Diltiazem CD (24hr) 120 MG CAPSULE PO SCH (08:08)
[2017-01-11] MEDS: Sulfamethoxazole/Trimeth SS 1 TAB PO SCH (08:08)
[2017-01-11] MEDS: Metoprolol XL (24 HR) Succ 25 MG TAB.ER.24H PO SCH ×2 (08:09→21:56)
[2017-01-11] MEDS: Lactobacillus 1 EACH CAP.SPRINK PO SCH (08:09)
[2017-01-11] MEDS: predniSONE 20 MG TABLET PO SCH (08:09)
[2017-01-11] MEDS: Loratadine 10 MG TABLET PO SCH (08:09)
[2017-01-11] MEDS: Cholecalciferol (D-3) 1,000 UNIT TABLET PO SCH (08:09)
[2017-01-11] MEDS: Furosemide 40 MG TABLET PO SCH ×2 (08:09→17:03)
[2017-01-11] MEDS: Fluticasone Propionate Nasal 50 MCG/SPRAY BOTTLE NS SCH (08:14)
--- NOTE | 2017-01-11 10:51 | Internal Med Progress Note ---
<Talon Bobo - Last Filed: 01/11/17 15:00> Date of Encounter: 01/11/17 Time of Encounter: 09:30 - Assessment and plan (1) Acute respiratory failure with hypoxia Current Visit: Yes Status: Acute Assessment and plan: - Likely secondary to pneumonia and COPD exacerbation. - Improved as patient is able to maintain good O2 sat on 2L oxygen. - Continue Bactrim for pneumonia. - Continue steroid, bronchodilators and supplemental oxygen for COPD. - Continue to monitor. (2) Pneumonia Current Visit: Yes Status: Suspected Assessment and plan: - CXR on admission found increased density involving the right lower lung, likely pneumonia. - Induced sputum culture from 01/07/17 grew Stenotrophomonas maltophilia, sensitive to levofloxacin and Bactrim. - Bronchoscopy on 01/10/17 found acute on chronic bronchitic changes with mucopurulent secretions throughout the tracheobronchial tree, especially in the right lower lobe. Extensive suctioning on both lungs were performed. - BAL culture from 01/10/17 grew normal upper respiratory tract brenda. - Continue Bactrim (since 01/07). Typically needs 7-day course for pneumonia but may consider longer duration (10-14 days) given this is second time this year patient has respiratory infection from Stenotrophomonas. - Pulmonology on board. Appreciate recommendations. Qualifiers: Pneumonia type: due to other aerobic Gram-negative bacteria Laterality: bilateral Lung location: unspecified part of lung Qualified Code(s): J15.6 - Pneumonia due to other aerobic Gram-negative bacteria (3) Atrial fibrillation Current Visit: Yes Status: Chronic Assessment and plan: - Sinus rhythm at this time. - Continue rate control with PO Cardizem and Toprol XL. - Currently anticoagulated with Lovenox and Coumadin - Continue to monitor. Qualifiers: Atrial fibrillation type: paroxysmal Qualified Code(s): I48.0 - Paroxysmal atrial fibrillation (4) COPD exacerbation Current Visit: Yes Status: Acute Assessment and plan: - Continue steroid, bronchodilators and supplemental oxygen. (5) H/O mitral valve replacement with mechanical valve Current Visit: Yes Status: Chronic Assessment and plan: - Therapeutic INR goal is 3.0 for mechanical mitral valve. - INR 1.0 today. - Continue Lovenox and Coumadin. - Continue to monitor. (6) Diastolic heart failure Current Visit: No Status: Chronic Assessment and plan: - Continue Lasix. Qualifiers: Heart failure chronicity: chronic Qualified Code(s): I50.32 - Chronic diastolic (congestive) heart failure (7) Hypertension Current Visit: Yes Status: Chronic Assessment and plan: - Continue to monitor BP. Qualifiers: Hypertension type: essential hypertension Qualified Code(s): I10 - Essential (primary) hypertension (8) Hypokalemia Current Visit: Yes Status: Acute Assessment and plan: - Resolved as K 4.0 today. - Continue KCl supplement. (9) Axillary lymphadenopathy Current Visit: Yes Status: Acute Assessment and plan: - Right axillary lymph node on palpation. - Likely associated with new port placement on right chest. - Patient has been compliant on her routine mammogram and is scheduled to have one after discharge. - Subjective Interval history: No significant event noted overnight. Patient was seen and examined this morning. Patient reports breathing is still not her baseline yet but overall is better than before. Patient still has some cough but feels being able to move mucus better. Patient denies fever, chills, nausea, vomiting, diarrhea, abdominal pain, chest pain. - Constitutional Vitals: Temp Pulse Resp BP Pulse Ox 98.1 F 87 20 123/81 93 01/11/17 07:51 01/11/17 07:51 01/11/17 07:51 01/11/17 07:51 01/11/17 08:16 General appearance: Present: cooperative, A&O X 3, pleasant, answers questions appropriately - Head Head exam: Present: atraumatic, normocephalic - Eye Eye exam: Present: EOMI, PERRL, conjuntiva pink, sclera anicteric - Neck Neck exam general surgery: Present: supple, trachea midline. Absent: lymphadenopathy - Respiratory Respiratory exam: Present: wheezes (occasional). Absent: accessory muscle use, rales, rhonchi - Cardiovascular Cardiovascular exam: Present: RRR, +S1, +S2. Absent: diastolic murmur, gallop, rubs, systolic murmur - GI/Abdominal GI/Abdominal exam: Present: normal bowel sounds, soft, no peritoneal signs. Absent: distended, tenderness - Extremities Exam Extremities exam: Present: warm, radial pulses palpable and symetrical. Absent : calf tenderness, cyanotic, pedal edema - Neurological Exam Neurological exam: Present: CN II-XII intact, oriented X3, no focal deficits. Absent: pronater drift, facial droop, speech deficit - Skin Skin exam: Present: dry, intact, warm Internal Medicine: Result - Labs CBC & Chem 7: 01/11/17 03:24 01/11/17 03:24 Labs: Short CBC 01/11/17 Range/Units 03:24 WBC 10.5 (4.3-11.1) K/mcL Hgb 11.8 (11.5-15.4) g/dL Hct 38.1 (35.3-44.9) % Plt Count 201 (140-400) K/mcL BMP 01/11/17 03:24 Sodium 139 Potassium 4.0 Chloride 101 Carbon Dioxide 31 H BUN 42 H Creatinine 1.42 H Glucose 90 Calcium 9.1 - ABG Interpretation ABG results: PT/INR, D-dimer PT 11.3 Seconds (9.4-12.1) 01/11/17 03:24 Consult Discharge Plan - Plan Instructions: Implanted Venous Access Port (GEN) Referrals: Christoph Hughes DO [Primary Care Provider] - 01/13/17 11:15 am (please follow up as schedule...) <Naveen Hatfield - Last Filed: 01/11/17 17:53> Date of Encounter: 01/11/17 - Assessment and plan (1) Acute respiratory failure with hypoxia Current Visit: Yes Status: Acute (2) Pneumonia Current Visit: Yes Status: Suspected Qualifiers: Pneumonia type: due to other aerobic Gram-negative bacteria Laterality: bilateral Lung location: unspecified part of lung Qualified Code(s): J15.6 - Pneumonia due to other aerobic Gram-negative bacteria (3) Infection due to multidrug-resistant Stenotrophomonas maltophilia Current Visit: Yes Status: Acute (4) Atrial fibrillation Current Visit: Yes Status: Chronic Qualifiers: Atrial fibrillation type: paroxysmal Qualified Code(s): I48.0 - Paroxysmal atrial fibrillation (5) COPD exacerbation Current Visit: Yes Status: Acute (6) Hypertension Current Visit: Yes Status: Chronic Qualifiers: Hypertension type: essential hypertension Qualified Code(s): I10 - Essential (primary) hypertension (7) CKD (chronic kidney disease) stage 3, GFR 30-59 ml/min Current Visit: Yes Status: Chronic (8) H/O mitral valve replacement with mechanical valve Current Visit: Yes Status: Chronic (9) Diastolic CHF Current Visit: Yes Status: Chronic Qualifiers: Congestive heart failure chronicity: chronic Qualified Code(s): I50.32 - Chronic diastolic (congestive) heart failure (10) KYLIE (obstructive sleep apnea) Current Visit: Yes Status: Chronic - Constitutional Vitals: Temp Pulse Resp BP Pulse Ox 97.4 F L 83 20 127/71 99 01/11/17 16:48 01/11/17 16:48 01/11/17 16:48 01/11/17 16:48 01/11/17 16:48 Internal Medicine: Result - Labs CBC & Chem 7: 01/11/17 03:24 01/11/17 03:24 Labs: Short CBC 01/11/17 Range/Units 03:24 WBC 10.5 (4.3-11.1) K/mcL Hgb 11.8 (11.5-15.4) g/dL Hct 38.1 (35.3-44.9) % Plt Count 201 (140-400) K/mcL BMP 01/11/17 03:24 Sodium 139 Potassium 4.0 Chloride 101 Carbon Dioxide 31 H BUN 42 H Creatinine 1.42 H Glucose 90 Calcium 9.1 - ABG Interpretation ABG results: PT/INR, D-dimer PT 11.3 Seconds (9.4-12.1) 01/11/17 03:24 - Attending Attestation I examined this patient and my medical decision-making was reviewed with the Resident Physician on 01/11/17. I agree with the documented findings, disposition and treatment plan as described except to the extent set forth below. Ms. Dewitt is currently admitted for hypoxic resp failure and parox a fib. She remains moderate risk due to potential for worsening respiratory status. Ms Dewitt feels a little better today. Still with a lot of congestion. No fever. No GI symptoms. Slept OK. Exam Alert. Comfortable Heart irreg Still with rhonchi Abd soft I/P 1. Hypoxia 2. Pna Further diagnoses and plan as above. Currently bridging coumadin with Lovenox.
[2017-01-11] MEDS: Budesonide/Formoterol 160/4.5 MDI IH SCH ×2 (10:54→22:22)
--- NOTE | 2017-01-11 13:10 | Pulmonology Progress Note ---
Date of Encounter: 01/11/17 Time of Encounter: 07:45 Assessment and Plan (1) Mucus plugging of bronchi Current Visit: No Status: Resolved I have explained to the patient even when she was seen in the clinic that this is will be a chronic problem due to her underlying chronic lung disease and pulmonary hygiene is extremely important with bronchodilators and percussion device. Continue current treatment. (2) Pneumonia Current Visit: No Status: Acute Qualifiers: Pneumonia type: due to unspecified organism Laterality: right Lung location: lower lobe of lung Qualified Code(s): J18.9 - Pneumonia, unspecified organism Subjective Principal diagnosis: COPD exacerbation Interval history: Patient feels slightly better after bronchoscopy Objective PUL Vital signs: Last Vital Signs Temp 98.4 F 01/11/17 11:30 Pulse 91 01/11/17 11:30 Resp 20 01/11/17 11:30 BP 125/77 01/11/17 11:30 Pulse Ox 94 01/11/17 11:30 General appearance: no acute distress ENT: oropharynx moist Neck: supple Auscultation: bilateral: diminished breath sounds Percussion: bilateral: not dull Cardiovascular: regular rate and rhythm, murmur noted Gastrointestinal: normoactive bowel sounds normal mental status, non-focal exam mood appropriate Results - Laboratory Findings CBC and BMP: 01/11/17 03:24 01/11/17 03:24 PT/INR, D-dimer PT 11.3 Seconds (9.4-12.1) 01/11/17 03:24 Abnormal lab findings: Abnormal lab results MCH 26.4 pg (28.0-33.3) L 01/11/17 03:24 MCHC 31.0 g/dL (31.6-35.5) L 01/11/17 03:24 RDW 15.9 % (11.5-14.5) H 01/11/17 03:24 APTT 65.7 Seconds (26.0-36.0) H 12/31/16 10:56 Carbon Dioxide 31 mEq/L (19-29) H 01/11/17 03:24 BUN 42 mg/dL (7-20) H 01/11/17 03:24 Creatinine 1.42 mg/dL (0.57-1.11) H 01/11/17 03:24 Est GFR ( Amer) 44 (> 60) L 01/11/17 03:24 Est GFR (Non-Af Amer) 37 (> 60) L 01/11/17 03:24 BUN/Creatinine Ratio 30 (6-26) H 01/11/17 03:24 B-Natriuretic Peptide 127 pg/mL (0-100) H 12/31/16 10:56 - Microbiology Findings Microbiology Findings: Microbiology, Last 48 Hours 01/10/17 07:27 Respiratory Culture - Preliminary Right Middle Lobe Lung Normal upper respiratory tract brenda. No apparent pathogens isolated. 01/10/17 07:27 Gram Stain - Final Right Middle Lobe Lung 01/07/17 15:29 Sputum Culture - Final Sputum Stenotrophomonas maltophilia - Clinical Findings Intake & Output: Intake & Output 01/10/17 01/11/17 01/11/17 23:59 07:59 15:59 Intake Total 240 / 240 170 / 170 Balance 240 / 240 170 / 170 Weight 53.2 kg Consult Discharge Plan - Plan Instructions: Implanted Venous Access Port (GEN) Referrals: Christoph Hughes DO [Primary Care Provider] - 01/13/17 11:15 am (please follow up as schedule...)
--- NOTE | 2017-01-11 16:01 | Electrocardiograph Report ---
[place] [id number] Test Date: 2017-01-10 Pat Name: Yasmeen Dewitt Department: 112 Room: 2A Gender: F Child Care Director: CORRINE : 1945 Requested By: Naveen Hatfield Order Number: [id number] Reading MD: Teddy Fierro Measurements Intervals [place] Rate: 120 P: SD: 0 QRS: 48 QRSD: 89 T: 63 QT: 331 QTc: 402 Interpretive Statements ATRIAL FIBRILLATION WITH RAPID VENTRICULAR RESPONSE MODERATE ST DEPRESSION Electronically Signed On 01-11-2017 15:59:25 EDT by Teddy Fierro
[2017-01-11] MEDS ORDERED: *HR* Warfarin 5 MG TABLET PO SCH (18:00)
[2017-01-11] MEDS: Gabapentin 100 MG CAPSULE PO SCH (21:42)
[2017-01-11] MEDS: Sulfamethoxazole/Trimeth DS 1 EACH TABLET PO SCH (21:55)
[2017-01-11] MEDS: GuaiFENesin/Codeine Oral Soln 5 ML UDC PO PRN (21:58)
[2017-01-11] MEDS ORDERED: 0.9 % Sodium Chloride 500 ML IVC ONE (23:44)
[2017-01-11] MEDS ORDERED: 0.9 % Sodium Chloride 500 ML ONE (23:51)
[2017-01-12] MEDS: Ipratropium/Albuterol Neb 3 ML IH SCH ×3 (03:36→16:18)
[2017-01-12] MEDS: Acetylcysteine 10% 2 ML INHSOL IH SCH ×3 (03:37→16:17)
[2017-01-12] MEDS: *HR* Enoxaparin 60 MG/0.6 ML SYRINGE SQ SCH (05:25)
[2017-01-12 05:47] LABS: INR 1.1; Prothrombin Time 11.4 Seconds (9.4-12.1)
[2017-01-12 05:54] LABS: Potassium 3.8 mEq/L (3.5-4.5)
[2017-01-12 05:59] LABS: Hemoglobin 12.5 g/dL (11.5-15.4); Mean Corpuscular HGB Conc 30.5 g/dL (31.6-35.5); Mean Corpuscular Hemoglobin 25.9 pg (28.0-33.3); Mean Corpuscular Volume 84.9 fL (83.0-100.0); Mean Platelet Volume 10.4 fL (9.4-12.4); Platelet Count 227 K/mcL (140-400); Red Blood Count 4.83 M/mcL (3.82-4.97); Red Cell Distribution Width 15.9 % (11.5-14.5)
[2017-01-12] MEDS: Vitamin B Complex/Vit C/Vit E 1 EACH TABLET PO SCH (08:24)
[2017-01-12] MEDS: predniSONE 20 MG TABLET PO SCH (08:25)
[2017-01-12] MEDS: Cholecalciferol (D-3) 1,000 UNIT TABLET PO SCH (08:25)
[2017-01-12] MEDS: Lactobacillus 1 EACH CAP.SPRINK PO SCH (08:25)
[2017-01-12] MEDS: Diltiazem CD (24hr) 120 MG CAPSULE PO SCH (08:25)
[2017-01-12] MEDS: Metoprolol XL (24 HR) Succ 25 MG TAB.ER.24H PO SCH (08:26)
[2017-01-12] MEDS: Furosemide 40 MG TABLET PO SCH (08:26)
[2017-01-12] MEDS: Loratadine 10 MG TABLET PO SCH (08:26)
[2017-01-12] MEDS: Sulfamethoxazole/Trimeth DS 1 EACH TABLET PO SCH (08:26)
[2017-01-12] MEDS: Fluticasone Propionate Nasal 50 MCG/SPRAY BOTTLE NS SCH (08:29)
[2017-01-12] MEDS: Budesonide/Formoterol 160/4.5 MDI IH SCH (10:59)
[2017-01-12 11:49] VITALS: BP 91/53
--- NOTE | 2017-01-12 13:47 | Discharge Summary ---
<Santos Fischer T - Last Filed: 01/12/17 16:28> Date of Encounter: 01/12/17 - Discharge Medications Prescriptions: Diltiazem CD (24hr) [Cardizem CD] 120 mg PO DAILY #30 cap.er.24h Enoxaparin [Lovenox] 60 mg SQ Q24H #5 syringe predniSONE [PredniSONE] See Taper PO DAILY #18 tablet Sulfamethoxazole/Trimeth DS [Bactrim Ds] 1 each PO BID #17 tablet Home Medications: Albuterol Sulfate [Albuterol Inhaler] 1 - 2 puff IH Q4HR PRN 11/24/15 [History] Allopurinol [Zyloprim 100 MG] 100 mg PO DAILY 11/24/15 [History] Budesonide/Formoterol 160/4.5 [Symbicort 160/4.5] 2 puff IH BIDR 11/24/15 [ History] Calcium Carbonate [Calcium] 500 mg PO BID 11/24/15 [History] Cholecalciferol (D-3) [Vitamin D] 2,000 unit PO DAILY 11/24/15 [History] Fluticasone Propionate Nasal [Flonase] 1 spray NS DAILY 11/24/15 [History] Gabapentin [Neurontin] 200 mg PO HS 11/24/15 [History] Loratadine [Claritin] 10 mg PO DAILY 11/24/15 [History] Metoprolol XL (24 HR) Succ [Toprol Xl] 12.5 mg PO BID 11/24/15 [History] Montelukast [Singulair] 10 mg PO DAILY 11/24/15 [History] Nitroglycerin [Nitrostat] 0.4 mg SL Q5M PRN 11/24/15 [History] Nortriptyline [Pamelor] 10 mg PO HS 11/24/15 [History] Roflumilast [Daliresp] 500 mcg PO DAILY 11/24/15 [History] Vitamin B Complex [B Complex] 1 tab PO DAILY 11/24/15 [History] Umeclidinium [place] [Incruse Ellipta] 1 puff IH DAILY 12/17/15 [History] Atorvastatin [Lipitor] 10 mg PO HS 01/01/16 [History] Docusate Sodium [Dok] 300 mg PO BID 01/01/16 [History] Albuterol Neb [Proventil Neb] 2.5 mg IH Q4HR PRN 08/25/16 [History] Bifidobacterium Infantis [Align] 4 mg PO DAILY 08/25/16 [History] Oxygen 2 l IN CONT #1 each 08/26/16 [Rx] Tramadol HCl 50 - 100 mg PO QID PRN 09/13/16 [History] Esomeprazole Magnesium [Nexium] 40 mg PO DAILY #30 capsule.dr 10/03/16 [Rx] Furosemide [Lasix] 40 mg PO BID #60 tablet 10/03/16 [Rx] Potassium Chloride [K-Tab ER] 20 meq PO DAILY #30 tablet.er 10/03/16 [Rx] Acetylcysteine [S-Tahqqp-i-Cysteine] 600 mg PO BID 10/08/16 [History] Enoxaparin [Lovenox] 60 mg SQ Q12HR #10 syr 01/01/17 [Rx] Diltiazem CD (24hr) [Cardizem CD] 120 mg PO DAILY #30 cap.er.24h 01/12/17 [Rx] Enoxaparin [Lovenox] 60 mg SQ Q24H #5 syringe 01/12/17 [Rx] Sulfamethoxazole/Trimeth DS [Bactrim Ds] 1 each PO BID #17 tablet 01/12/17 [Rx] Warfarin [Coumadin] 7.5 mg PO DAILY #0 01/12/17 [Rx] predniSONE [PredniSONE] See Taper PO DAILY #18 tablet 01/12/17 [Rx] Allergies/Adverse Reactions: Allergies ceftriaxone [From Rocephin] Allergy (Severe, Verified 12/31/16 10:05) Hives ciprofloxacin [From Cipro HC] Allergy (Severe, Verified 12/31/16 10:05) Hives levofloxacin [From Levaquin] Allergy (Severe, Verified 12/31/16 10:05) Hives hydrocortisone [From Cipro HC] Allergy (Intermediate, Verified 12/31/16 10:05) Hives vancomycin Allergy (Mild, Verified 12/31/16 14:42) Rash Spoke with ID from [facility], in 2007 presented with skin rash which was subsequently attributed to either vancomycin, amiodarone, or another medicine as all other causes were ruled out. Important to note this was recorded as a rash and not hives, trouble breathing, etc. Procedures/tests Complete & Pending: Procedures Performed prior 72 hours Category Date Time Status ECG 12 lead ECG [ECG] Routine Y 01/10/17 04:21 Completed Date of admission: 01/02/17 18:10 Primary care physician: Christoph Hughes Consults: 01/05/17 11:30 Consult to Public Relations Manager [CONS] Routine Reason for SW Consult: financial concerns with prescriptions/supplies for cpap 01/07/17 08:22 Consult to Pulmonology [CONS] Routine Consulting Provider: [facility] Jennifer Reason for Consult: Finished 7-day IV Zosyn for PNA. Sutum production resolved but cough persists. Appreciate bronchoscopy for possible mucus plug. Dr. Hatfield has discussed the case with Dr. Rodarte. INR 1.2 today Call Completed: Yes 01/07/17 09:32 Consult to Respiratory Therapy [CONS] Routine Reason for Consult: induced sputum Call Completed: Yes 01/08/17 07:29 Consult to Respiratory Therapy [CONS] Routine Reason for Consult: Flutter valve Time Notified: 07:31 Call Completed: Yes 01/08/17 08:30 Consult to Respiratory Therapy [CONS] Routine Reason for Consult: CPT Qshift Time Notified: 08:31 Call Completed: Yes - Patient Status Disposition: Home, Self-Care Condition: Fair - Discharge Instructions Instructions: Diltiazem (By mouth), Enoxaparin (Injection), Atrial Fibrillation (DC), Implanted Venous Access Port (GEN) Follow Up With: Clinic, Anticoagulation [Other] - 01/15/17 8:15 am Manuel Andrade CNP [Advanced Practice Nurse] - Christoph Hughes DO [Primary Care Provider] - 01/13/17 11:15 am (please follow up as schedule...) Jose Siddiqi MD [Partnered Physician] - Additional Instructions: Please take Coumadin 7.5 mg daily until further adjustment by Anticoagulation clinic. Please continue bridging Lovenox 60 mg subcutaneous every 24 hours until your INR reaches therapeutic level (between 2.5 and 3.5) Please follow up with Anticoagulation clinic at 8:15 am on 01/15/17. Please continue Bactrim DS 1 tablet twice a day for 8 more days to finish total 14-day course of treatment for pneumonia. Please follow up with your primary care physician within a week. Please follow up with outpatient cardiology and pulmonology. Hospital course: Ms. Dewitt is a 71 year old female - Time Spent with Patient Total time spent providing and/or coordinating discharge services: - Constitutional Vitals: Temp Pulse Resp BP Pulse Ox 98.0 F 84 16 91/53 95 01/12/17 11:48 01/12/17 11:48 01/12/17 11:48 01/12/17 11:48 01/12/17 11:48 - Attending Attestation I examined this patient and my medical decision-making was reviewed with the Resident Physician on 01/12/17. I agree with the documented findings, disposition and treatment plan as described except to the extent set forth below. Patient seen and evaluated at bedside Has multiple chronic problems, no new complains today Physical exam with rhonchi, chronic Discharge patient home on Loveno-she states she has had to use LOvenox in the past, also discharge on Bactrim, ensure follow up at INR clinic this week-3 days , continue coumadin Rest of details as in resident's documentation Patient is clinically stable <Talon Bobo - Last Filed: 01/12/17 18:31> Date of Encounter: 01/12/17 Time of Encounter: 10:15 - Discharge Diagnosis (1) Acute respiratory failure with hypoxia Priority: Primary Status: Acute (2) Pneumonia Priority: Primary Status: Suspected Qualifiers: Pneumonia type: due to other aerobic Gram-negative bacteria Laterality: bilateral Lung location: unspecified part of lung Qualified Code(s): J15.6 - Pneumonia due to other aerobic Gram-negative bacteria (3) Atrial fibrillation Priority: Primary Status: Chronic Qualifiers: Atrial fibrillation type: paroxysmal Qualified Code(s): I48.0 - Paroxysmal atrial fibrillation (4) COPD exacerbation Priority: Secondary Status: Acute (5) H/O mitral valve replacement with mechanical valve Priority: Secondary Status: Chronic (6) Diastolic heart failure Priority: Secondary Status: Chronic Qualifiers: Heart failure chronicity: chronic Qualified Code(s): I50.32 - Chronic diastolic (congestive) heart failure (7) Hypertension Priority: Secondary Status: Chronic Qualifiers: Hypertension type: essential hypertension Qualified Code(s): I10 - Essential (primary) hypertension (8) Hypokalemia Priority: Secondary Status: Acute (9) Axillary lymphadenopathy Priority: Secondary Status: Acute Procedures/tests Complete & Pending: Procedures Performed prior 72 hours Category Date Time Status ECG 12 lead ECG [ECG] Routine Y 01/10/17 04:21 Completed Date of admission: 01/02/17 18:10 Primary care physician: Christoph Hughes Consults: 01/05/17 11:30 Consult to Public Relations Manager [CONS] Routine Reason for SW Consult: financial concerns with prescriptions/supplies for cpap 01/07/17 08:22 Consult to Pulmonology [CONS] Routine Consulting Provider: [facility] Jennifer Reason for Consult: Finished 7-day IV Zosyn for PNA. Sutum production resolved but cough persists. Appreciate bronchoscopy for possible mucus plug. Dr. Hatfield has discussed the case with Dr. Rodarte. INR 1.2 today Call Completed: Yes 01/07/17 09:32 Consult to Respiratory Therapy [CONS] Routine Reason for Consult: induced sputum Call Completed: Yes 01/08/17 07:29 Consult to Respiratory Therapy [CONS] Routine Reason for Consult: Flutter valve Time Notified: 07:31 Call Completed: Yes 01/08/17 08:30 Consult to Respiratory Therapy [CONS] Routine Reason for Consult: CPT Qshift Time Notified: 08:31 Call Completed: Yes Discharging clinician: Talon Bobo Anticipated date of discharge: 01/12/17 - Patient Status Functional capacity at discharge: independent ambulation Overall status at discharge: patient is progressing back to baseline - Diet and Activity Activity: increase activity as tolerated Diet: low fat, low cholesterol, low salt diet Hospital course: Ms. Dewitt is a 71 year old female with PMH of COPD (on 2L home oxygen), diastolic CHF, A-fib and mechanical mitral valve on Coumadin. Patient presented with 3-day history of worsening shortness of breath and cough with yellow sputum. CXR in ED showed increased density involving the right lower lung suggestive of infiltrates. Patient was admitted on 12/31/16 for pneumonia and started on doxycycline and Zosyn. Patient had cracked port needing removal so patient's Coumadin was held and started on Lovenox. Patient had an episode of A- fib RVR on 01/02/17 night and started on cardizem drip, which was later changed to PO Cardizem. Patient had old port (on left chest) removed and new port placed (on right chest) by IR on 01/04/17. Patient finished 7-day course of Zosyn on 01/07/17 with breathing and sputum production improved but cough persisted. Pulmonology was consulted for possible bronchoscopy for further evaluation and Bactrim was started on 01/07/17 given patient had BAL culture from 10/10/16 positive for Stenotrophomonas maltophilia. Bronchoscopy on 01/10/17 found acute on chronic bronchitis with diffuse mucopurulent secretions which were extensively suctioned. Sputum culture from 01/07/17 grew Stenotrophomonas maltophilia sensitive to Bactrim and levofloxacin. BAL culture from 01/10/17 preliminarily grew GNR. Patient's respiratory status continues to improve with Bactrim. Patient was resumed on Coumadin with Lovenox for bridging. Latest INR at 1.1 on 01/12/17. Patient will be discharged home today with Bactrim DS 1 tablet twice a day for 8 more days to finish total 14-day course of treatment for pneumonia. Patient will also continue prescribed Cardizem CD 120 mg PO daily. Patient is instructed to take Coumadin 7.5 mg daily until further adjustment by Anticoagulation clinic, which will see patient at 8:15 am on . Patient will also continue bridging Lovenox 60 mg subcutaneous every 24 hours until INR reaches therapeutic level (between 2.5 and 3.5). Patient will follow up with her primary care physician within a week and with outpatient cardiology and pulmonology as well. Patient and her verbalized their understanding and agreed with the plan. All questions answered. - Time Spent with Patient Total time spent providing and/or coordinating discharge services: Greater than 30 minutes - Constitutional Vitals: Temp Pulse Resp BP Pulse Ox 98.0 F 84 16 91/53 95 01/12/17 11:48 01/12/17 11:48 01/12/17 11:48 01/12/17 11:48 01/12/17 11:48 General appearance: Present: cooperative, A&O X 3, pleasant, answers questions appropriately - Head Head exam: Present: atraumatic, normocephalic - Eye Eye exam: Present: EOMI, PERRL, conjuntiva pink, sclera anicteric - Neck Neck exam general surgery: Present: supple, trachea midline. Absent: lymphadenopathy - Respiratory Respiratory exam: Present: CTAB. Absent: accessory muscle use, rales, rhonchi, wheezes - Cardiovascular Cardiovascular exam: Present: RRR, +S1, +S2. Absent: diastolic murmur, gallop, rubs, systolic murmur - GI/Abdominal GI/Abdominal exam: Present: normal bowel sounds, soft, no peritoneal signs. Absent: distended, tenderness - Extremities Exam Extremities exam: Present: warm, radial pulses palpable and symetrical. Absent : calf tenderness, cyanotic, pedal edema - Neurological Exam Neurological exam: Present: CN II-XII intact, oriented X3, no focal deficits. Absent: pronater drift, facial droop, speech deficit - Skin Skin exam: Present: dry, intact, warm
== END 2017-01-12 16:19 | disposition home or self-care (01) | DRG 166 ==
LOC: EMEROO 10:00 → 2ANU 10:00 → SUATTDRO 01-02 18:10
PROVIDERS: ADMIT Internal Medicine; ATTEND Internal Medicine

== ENCOUNTER 2017-01-18 09:11 | Inpatient (IN) ==
[2017-01-18] MEDS ORDERED: Ipratropium/Albuterol Neb 3 ML IH ONE (09:25)
--- NOTE | 2017-01-18 09:26 | Emergency Department Note ---
Disposition Clinical Impression: COPD exacerbation, Abnormal chest x-ray, History of atrial fibrillation Dyspnea Qualifiers: Dyspnea type: unspecified Qualified Code(s): R06.00 - Dyspnea, unspecified Disposition: Admitted As Inpatient Condition: Fair Referrals: Christoph Hughes DO [Primary Care Provider] - Forms: ED Satisfaction Letter Time of Disposition: 11:21 Arrhythmia/Palpitations HPI - General Chief Complaint: ED Arrhythmia/Palpitations Stated Complaint: A-fib, DEBBIE Time Seen by Provider: 01/18/17 09:21 Source: patient, family Mode of arrival: ambulatory Limitations: no limitations Nursing Notes Reviewed: Yes Vital Signs Reviewed: Yes - History of Present Illness HPI Narrative: Patient is a 71-year-old female with past medical history of CHF, COPD, A. fib. She was recently admitted to the hospital for shortness of breath and A. fib. She was also recently started on diltiazem for rate control. She was discharged from the hospital on the and sent home with Bactrim for a diagnosed pneumonia and prednisone. She is currently on prednisone 10 mg daily and continuing her Bactrim, has 2-3 days left of this medication. She presents today due to palpitations and shortness of breath, productive cough. She says that her breathing has worsened since discharge, she is usually on 2-3 L of nasal cannula oxygen at home but has become significantly worse short of breath , producing sputum above baseline. She denies any chest pain, fevers, nausea, vomiting, abdominal pain. She is concerned that her pneumonia can be worsening. Otherwise, she is on chronic inhalers, and inhaled steroids. - Related Data Home Medications Medication Instructions Recorded Confirmed Albuterol Sulfate [Albuterol 1 - 2 puff IH Q4HR PRN 11/24/15 12/31/16 Inhaler] Allopurinol [Zyloprim 100 MG] 100 mg PO DAILY 11/24/15 12/31/16 Budesonide/Formoterol 160/4.5 2 puff IH BIDR 11/24/15 12/31/16 [Symbicort 160/4.5] Calcium Carbonate [Calcium] 500 mg PO BID 11/24/15 12/31/16 Cholecalciferol (D-3) [Vitamin D] 2,000 unit PO DAILY 11/24/15 12/31/16 Fluticasone Propionate Nasal 1 spray NS DAILY 11/24/15 12/31/16 [Flonase] Gabapentin [Neurontin] 200 mg PO HS 11/24/15 12/31/16 Loratadine [Claritin] 10 mg PO DAILY 11/24/15 12/31/16 Metoprolol XL (24 HR) Succ [Toprol 12.5 mg PO BID 11/24/15 12/31/16 Xl] Montelukast [Singulair] 10 mg PO DAILY 11/24/15 12/31/16 Nitroglycerin [Nitrostat] 0.4 mg SL Q5M PRN 11/24/15 12/31/16 Nortriptyline [Pamelor] 10 mg PO HS 11/24/15 12/31/16 Roflumilast [Daliresp] 500 mcg PO DAILY 11/24/15 12/31/16 Vitamin B Complex [B Complex] 1 tab PO DAILY 11/24/15 12/31/16 Umeclidinium Rhame [Incruse 1 puff IH DAILY 12/17/15 12/31/16 Ellipta] Atorvastatin [Lipitor] 10 mg PO HS 01/01/16 12/31/16 Docusate Sodium [Dok] 300 mg PO BID 01/01/16 12/31/16 Albuterol Neb [Proventil Neb] 2.5 mg IH Q4HR PRN 08/25/16 12/31/16 Bifidobacterium Infantis [Align] 4 mg PO DAILY 08/25/16 12/31/16 Tramadol HCl 50 - 100 mg PO QID PRN 09/13/16 12/31/16 Acetylcysteine 600 mg PO BID 10/08/16 12/31/16 [U-Zzstsn-l-Cysteine] Previous Rx's Medication Instructions Recorded Oxygen 2 l IN CONT #1 each 08/26/16 Esomeprazole Magnesium [Nexium] 40 mg PO DAILY #30 capsule. 10/03/16 Furosemide [Lasix] 40 mg PO BID #60 tablet 10/03/16 Potassium Chloride [K-Tab ER] 20 meq PO DAILY #30 tablet.er 10/03/16 Enoxaparin [Lovenox] 60 mg SQ Q12HR #10 syr 01/01/17 Diltiazem CD (24hr) [Cardizem CD] 120 mg PO DAILY #30 cap.er.24h 01/12/17 Enoxaparin [Lovenox] 60 mg SQ Q24H #5 syringe 01/12/17 Sulfamethoxazole/Trimeth DS 1 each PO BID #17 tablet 01/12/17 [Bactrim Ds] Warfarin [Coumadin] 7.5 mg PO DAILY #0 01/12/17 predniSONE [PredniSONE] See Taper PO DAILY #18 tablet 01/12/17 Allergies Allergy/AdvReac Type Severity Reaction Status Date / Time ceftriaxone [From Rocephin] Allergy Severe Hives Verified 01/18/17 09:26 ciprofloxacin [From Cipro HC] Allergy Severe Hives Verified 01/18/17 09:26 levofloxacin [From Levaquin] Allergy Severe Hives Verified 01/18/17 09:26 hydrocortisone Allergy Intermediate Hives Verified 01/18/17 09:26 [From Cipro HC] vancomycin Allergy Mild Rash Verified 01/18/17 09:26 All systems ED: reviewed and negative except as stated. Constitutional: Denies: fever Cardiovascular: Reports: dyspnea on exertion. Denies: chest pain Respiratory: Reports: dyspnea Gastrointestinal: Denies: abdominal pain, nausea, vomiting, diarrhea Neurological: Denies: headache, weakness, numbness, paresthesias Past Medical History - Past Medical History Attestation: Yes The following information was validated with the patient. Source: patient Medical history: Reports: arthritis, atrial fibrillation, cardiomyopathy, CHF, COPD, fibromyalgia, hypertension, myocardial infarction, osteoporosis, RA, other Surgical history: Reports: angioplasty/stent, cholecystectomy, coronary bypass ( CABG), heart valve replacement, orthopedic, other Psychiatric history: Reports: no psych history - Social History Smoking Status: Former smoker Smokeless Tobacco Status: No Alcohol use: Reports: none Drug use: Reports: none Physical Exam - General Limitations: no limitations General appearance: alert - Head Head exam: atraumatic, normocephalic, normal inspection - Eye Eye exam: Present: normal appearance, PERRL, EOMI - ENT ENT exam: normal exam, normal oropharynx, mucous membranes moist - Neck Neck exam: Present: normal inspection, full ROM, trachea midline - Chest Chest inspection: Present: normal inspection, symmetric chest wall rise - Respiratory Respiratory exam: Present: respiratory distress (Moderate), accessory muscle use , other (Decreased breath sounds in all lung fletcher.) - Cardiovascular Cardiovascular exam: Present: tachycardia, irregular rhythm, normal heart sounds - Abdominal Exam Abdominal exam: Present: soft, Non-Tender. Absent: tenderness, distention, guarding, rebound, rigidity - Extremities Exam Extremities exam: Present: normal inspection, full ROM. Absent: tenderness, pedal edema - Neurological Exam Neurological exam: Present: alert, oriented X3 - Psychiatric Psychiatric exam: Present: normal affect, normal mood - Skin Skin exam: Present: warm, dry, intact, normal color Course Course Narrative: Patient afebrile, mildly tachycardic and low 100s. Moderate respiratory distress, decreased aeration in all lung fletcher. The rest of the physical exam was fairly benign. DuoNeb 3, Solu-Medrol, dyspnea workup including EKG, chest x-ray, troponin ordered. Patient is currently on Bactrim twice a day for pneumonia diagnosis. Patient will likely be readmitted to the significant shortness of breath and bounce back. 11:17 labs show leukocytosis. Creatinine is near baseline for the patient. Troponin negative. Chest x-ray showed stable right lower lobe infiltrate/ airspace disease that could represent pneumonia, atelectasis, aspiration, malignancy could also be considered. She said that she had bronch done last week during her most recent stay. She believes that a BAL or biopsy was completed but she has not heard any results from this. Due to shortness of breath, patient only satting 93% on 4 L nasal cannula oxygen which is increased from her home oxygen, desaturation when ambulating, and she will right lower lobe infiltrate versus malignancy, will admit for further care. Will not start antibiotics at this time as the right lower lobe lesion has been present for at least 2-3 months on previous x-rays and CT scans. I am not convinced that this is pneumonia at this time. Chest X-Ray 01/18/17 09:21 IMPRESSION: Stable chest x-ray at over the past 3 weeks with ill-defined airspace disease of the right lung base which may be due to pneumonia, atelectasis, aspiration or a combination. Underlying malignancy is a consideration given the lack of change. Unchanged atelectasis of the left lower lobe. Advanced emphysema D/ / Jewel Collins MD / Jewel Collins MD Interpreting Provider: Jewel Collins MD Vital Signs Temperature 97.8 F 01/18/17 09:15 Pulse Rate 105 01/18/17 09:15 Respiratory Rate 26 01/18/17 09:15 Blood Pressure 138/88 01/18/17 09:15 O2 Sat by Pulse Oximetry 96 01/18/17 09:15 Temperature 97.8 F 01/18/17 09:15 Pulse Rate 22 01/18/17 10:23 Respiratory Rate 108 01/18/17 10:23 Blood Pressure 116/83 01/18/17 10:23 O2 Sat by Pulse Oximetry 95 01/18/17 10:23 Oxygen Delivery Oxygen Delivery Nasal Cannula Arrhythmia/Palpitations - [facility] Narrative Medical decision making narrative: I examined this patient and my medical decision-making was reviewed with the Resident Physician. I agree with the documented findings, disposition and treatment plan as described except to the extent set forth below. Patient seen and evaluated by Dr. Quiles and myself, I agree with his evaluation and management plan, and supervised the care of the patient's stay. Patient has some COPD exacerbation today has a history of A. fib but is in sinus rhythm now. Check a chest x-ray lab work and reassess. - Kazee: labs show leukocytosis. Creatinine is near baseline for the patient. Troponin negative. Chest x-ray showed stable right lower lobe infiltrate/ airspace disease that could represent pneumonia, atelectasis, aspiration, malignancy could also be considered. She said that she had bronch done last week during her most recent stay. She believes that a BAL or biopsy was completed but she has not heard any results from this. Due to shortness of breath, patient only satting 93% on 4 L nasal cannula oxygen which is increased from her home oxygen, desaturation when ambulating, and she will right lower lobe infiltrate versus malignancy, will admit for further care. Will not start antibiotics at this time as the right lower lobe lesion has been present for at least 2-3 months on previous x-rays and CT scans. I am not convinced that this is pneumonia at this time. - Medical Records Medical records reviewed: Yes I reviewed the patient's medical records. - Lab Data Lab results reviewed: Yes I reviewed the patient's lab results. Result diagrams: 01/18/17 09:42 01/18/17 09:42 Lab Results 0701/18/17 01/18/17 Range/Units 09:42 09:42 09:42 WBC 13.6 H (4.3-11.1) K/mcL RBC 5.10 H (3.82-4.97) M/mcL Hgb 13.5 (11.5-15.4) g/dL Hct 42.7 (35.3-44.9) % MCV 83.7 (83.0-100.0) fL MCH 26.5 L (28.0-33.3) pg MCHC 31.6 (31.6-35.5) g/dL RDW 17.0 H (11.5-14.5) % Plt Count 198 (140-400) K/mcL MPV 10.6 (9.4-12.4) fL Immature Gran % 0.6 (0-4) % Seg Neutrophils % 76.9 % Lymphocytes % 11.1 % Monocytes % 11.0 % Eosinophils % 0.0 % Basophils % 0.4 % Neutrophils # 10.5 H (1.6-8.9) K/mcL Lymphocytes # 1.5 (0.6-4.6) K/mcL Monocytes # 1.5 H (0.0-1.3) K/mcL Eosinophils # 0.0 (0.0-0.6) K/mcL Basophils # 0.1 (0.0-0.2) K/mcL Sodium 138 (136-145) mEq/L Potassium 3.2 L (3.5-4.5) mEq/L Chloride 103 (98-109) mEq/L Carbon Dioxide 27 (19-29) mEq/L BUN 31 H (7-20) mg/dL Creatinine 1.27 H (0.57-1.11) mg/dL Est GFR ( Amer) 51 L (> 60) Est GFR (Non-Af Amer) 42 L (> 60) BUN/Creatinine Ratio 24 (6-26) Glucose 93 (70-99) mg/dL Calculated Osmolality 292 (280-300) Lactic Acid 1.4 (0.5-2.2) mmol/L Calcium 8.6 (8.6-10.8) mg/dL Troponin I (0-0.03) ng/mL B-Natriuretic Peptide (0-100) pg/mL 01/18/17 01/18/17 Range/Units 09:42 09:42 WBC (4.3-11.1) K/mcL RBC (3.82-4.97) M/mcL Hgb (11.5-15.4) g/dL Hct (35.3-44.9) % MCV (83.0-100.0) fL MCH (28.0-33.3) pg MCHC (31.6-35.5) g/dL RDW (11.5-14.5) % Plt Count (140-400) K/mcL MPV (9.4-12.4) fL Immature Gran % (0-4) % Seg Neutrophils % % Lymphocytes % % Monocytes % % Eosinophils % % Basophils % % Neutrophils # (1.6-8.9) K/mcL Lymphocytes # (0.6-4.6) K/mcL Monocytes # (0.0-1.3) K/mcL Eosinophils # (0.0-0.6) K/mcL Basophils # (0.0-0.2) K/mcL Sodium (136-145) mEq/L Potassium (3.5-4.5) mEq/L Chloride (98-109) mEq/L Carbon Dioxide (19-29) mEq/L BUN (7-20) mg/dL Creatinine (0.57-1.11) mg/dL Est GFR ( Amer) (> 60) Est GFR (Non-Af Amer) (> 60) BUN/Creatinine Ratio (6-26) Glucose (70-99) mg/dL Calculated Osmolality (280-300) Lactic Acid (0.5-2.2) mmol/L Calcium (8.6-10.8) mg/dL Troponin I 0.02 (0-0.03) ng/mL B-Natriuretic Peptide 214 H (0-100) pg/mL - Radiology Data Radiology results reviewed: Yes I reviewed the patient's radiology results. Chest X-Ray 01/18/17 09:21 IMPRESSION: Stable chest x-ray at over the past 3 weeks with ill-defined airspace disease of the right lung base which may be due to pneumonia, atelectasis, aspiration or a combination. Underlying malignancy is a consideration given the lack of change. Unchanged atelectasis of the left lower lobe. Advanced emphysema D/ / Jewel Collins MD / Jewel Collins MD Interpreting Provider: Jewel Collins MD - EKG Data EKG attestation: Yes I reviewed and interpreted this EKG. EKG results narrative: 01/18/2017 and 09:20. A. fib. Rate 11. ME 100. QRS 80. QTC 388. No acute ST elevation or depression. T-wave inversion in V2, V1. This is chronic for the patient. Previous EKG comparison was 01/10/2017 Katya - Katya Situation: Demographics, MOA Background: Presenting Complaint, Relevant PMH, Meds, & Allergies Assessment: Vital Signs, Course and respsone to treatment, Exam Concerns, Patient/Family Expectation, Pertinant Lab Results Recommendation: Barrier(s) to disposition, Recommendation based on pending studies, treatments, or consults Katya Report Given to: Dr. Carmen Aldana Repor Time: 11:21
[2017-01-18 09:50] LABS: Basophils # 0.1 K/mcL (0.0-0.2); Basophils % 0.4 %; Hematocrit 42.7 % (35.3-44.9); Hemoglobin 13.5 g/dL (11.5-15.4); Immature Granulocytes % 0.6 % (0-4); Lymphocytes # 1.5 K/mcL (0.6-4.6); Lymphocytes % 11.1 %; Mean Corpuscular HGB Conc 31.6 g/dL (31.6-35.5); Mean Corpuscular Hemoglobin 26.5 pg (28.0-33.3); Mean Corpuscular Volume 83.7 fL (83.0-100.0); Mean Platelet Volume 10.6 fL (9.4-12.4); Monocytes # 1.5 K/mcL (0.0-1.3); Neutrophils # 10.5 K/mcL (1.6-8.9); Platelet Count 198 K/mcL (140-400); Segmented Neutrophils % 76.9 %
[2017-01-18 10:06] LABS: Calcium 8.6 mg/dL (8.6-10.8); Potassium 3.2 mEq/L (3.5-4.5)
[2017-01-18] MEDS ORDERED: Naloxone 0.4 MG/ML INJ IVP PRN (12:17)
[2017-01-18] MEDS ORDERED: Ondansetron 4 MG/2 ML VIAL IVP PRN (12:17)
[2017-01-18] MEDS ORDERED: Albuterol 2.5 MG/3 ML NEBULIZER IH PRN (12:19)
--- NOTE | 2017-01-18 12:47 | Internal Med History&Physical ---
Date of Encounter: 01/18/17 Time of Encounter: 12:00 Assessment and Plan (1) Pneumonia Current visit: Yes Status: Acute 1 patiently was recently admitted to this facility with pneumonia sputum and bronchial cultures did reveal stenotrophomonas patient was started on Bactrim as well as steroid tapering was discharged home. She continued to experience increasing shortness of breath despite the use of her oxygen and inhalers and presented back to the ER. She has been compliant with her medications. Cytopathology report prompted reveal some atypical cells suspicious for malignancy patient's chest x-ray ill-defined airspace diseaseof the right lung base which may be due to pneumonia, atelectasis, aspiration or a combination. Underlying malignancy is a consideration- will continue with oxygen titrated maintaining SPO2 greater than 92% 2 continue with bronchodilators and on some Mucomyst due to increased sputum production 3 we will continue with Bactrim patient has 3 days left 4 steroid taper 5 we did consult pulmonary 6 blood cultures have been obtained we will obtain sputum culture Qualifiers: Pneumonia type: due to other aerobic Gram-negative bacteria Laterality: bilateral Lung location: unspecified part of lung Qualified Code(s): J15.6 - Pneumonia due to other aerobic Gram-negative bacteria (2) H/O mitral valve replacement with mechanical valve Current visit: No Status: Chronic 1 patient is on Coumadin and we will check INR pharmacy to adjust (3) Diastolic heart failure Current visit: No Status: Chronic EF 65-70% -recently stable-continue with home medications Low-sodium diet Qualifiers: Heart failure chronicity: chronic Qualified Code(s): I50.32 - Chronic diastolic (congestive) heart failure (4) COPD (chronic obstructive pulmonary disease) Current visit: No Status: Chronic Continue with oxygen and bronchodilators Qualifiers: COPD type: unspecified COPD Qualified Code(s): J44.9 - Chronic obstructive pulmonary disease, unspecified (5) CKD (chronic kidney disease) stage 3, GFR 30-59 ml/min Current visit: No Status: Chronic Creatinine is 1.27 which appears to be baseline we will continue to monitor 2 avoid nephrotoxins 3 monitor intake and output daily weights (6) Hypokalemia Current visit: No Status: Acute Replace potassium and recheck (7) DVT prophylaxis Current visit: No Status: Acute Patient is on Coumadin Internal Medicine - H&P: HPI Chief complaint: SOB Admitted From: Emergency Dept Plans for Post Hospital Care: Home History of present illness: Ms. Dewitt is a 71 year old female status of cardiac history including CABG w/ mitral valve replacement with mechanical valve (2007) diastolic heart failure COPD oxygen dependent CK D stage III atrial fibrillation. She was recently admitted to this hospital on 12/31/16 for shortness of breath and during admission she had an episode of A. fib RVR she was started on diltiazem for rate control. Sputum cultures revealed stenotrophonas, bronchoscopy completed on 01/10/17 which also confirmed growth of stenotrophonas, sensitive to Levaquin as well as Bactrim. She was discharged home on prednisone taper as well as 14 day regime of Bactrim which she has approximately 2-3 days left. She has been compliant with her medications however has been experiencing increasing shortness of breath on exertion as well as cough with some yellow sputum production. The symptoms have been present since discharge however the symptoms were relieved with rest as well as breathing treatments. Over the past few days, exertional dyspnea has worsened to the point that difficult to recover with rest even with oxygen use. She is frequently using her bronchodilators with little relief. She denies any fevers or chills chest pain abdominal pain nausea vomiting or diarrhea. Early in the morning patient was awakened to her heart racing she checked her pulse it was 148 she was having difficulty breathing and gave herself multiple breathing treatments. She somewhat improved however her dyspnea continued and she came to the ER for evaluation. Presently patient does not appear to be in any respiratory distress however she does display some conversational dyspnea. Her heart sounds are irregular S1-S2 with a click noted. Lungs sounds with coarse rhonchi patient does have a moist cough. Abdomen soft and nontender no pedal edema. Atrial fibrillation on the monitor with a rate 98-100 SPO2 is 96% on 2 L nasal cannula. She is hemodynamic stable this time. I reviewed this case with who agrees with plan. Past Med Surg Social Fam HX - Past Medical History Medical history: arthritis, atrial fibrillation, cardiomyopathy, CHF, COPD, fibromyalgia, hypertension, myocardial infarction, osteoporosis, RA, other Psychiatric history: no psych history - Past Surgical History Surgical History: angioplasty/stent, cholecystectomy, coronary bypass (CABG), heart valve replacement, orthopedic, other - Social History Smoking Status: Former smoker Smokeless Tobacco Status: No Alcohol use: none Drug use: none - Family History Father Living Status: Hx Family Cardiac Disorders: Yes (open heart surgery) Hx Family Respiratory Disorders: No Hx Family Cancer: Yes (Liver cancer w/ mets) Hx Family GI Disorders: No Hx Family Endocrine Disorder: No Hx Family Neuromuscular Disorders: No Hx Family Neurologic Disorders: No Hx Family HEENT Disorders: No Hx Family Autoimmune Disorders: No Mother Living Status: Hx Family Cardiac Disorders: No Hx Family Respiratory Disorders: Yes Hx Family Cancer: Yes (bone, lung) Hx Family GI Disorders: No Hx Family Endocrine Disorder: No Hx Family Neuromuscular Disorders: No Hx Family Neurologic Disorders: No Hx Family HEENT Disorders: No Hx Family Autoimmune Disorders: No Internal Medicine - H&P: Meds Albuterol Sulfate [Albuterol Inhaler] 1 - 2 puff IH Q4HR PRN 11/24/15 [History] Allopurinol [Zyloprim 100 MG] 100 mg PO DAILY 11/24/15 [History] Budesonide/Formoterol 160/4.5 [Symbicort 160/4.5] 2 puff IH BIDR 11/24/15 [ History] Calcium Carbonate [Calcium] 500 mg PO BID 11/24/15 [History] Cholecalciferol (D-3) [Vitamin D] 2,000 unit PO DAILY 11/24/15 [History] Fluticasone Propionate Nasal [Flonase] 1 spray NS DAILY 11/24/15 [History] Gabapentin [Neurontin] 200 mg PO HS 11/24/15 [History] Loratadine [Claritin] 10 mg PO DAILY 11/24/15 [History] Metoprolol XL (24 HR) Succ [Toprol Xl] 12.5 mg PO BID 11/24/15 [History] Montelukast [Singulair] 10 mg PO DAILY 11/24/15 [History] Nitroglycerin [Nitrostat] 0.4 mg SL Q5M PRN 11/24/15 [History] Nortriptyline [Pamelor] 10 mg PO HS 11/24/15 [History] Roflumilast [Daliresp] 500 mcg PO DAILY 11/24/15 [History] Vitamin B Complex [B Complex] 1 tab PO DAILY 11/24/15 [History] Umeclidinium [place] [Incruse Ellipta] 1 puff IH DAILY 12/17/15 [History] Atorvastatin [Lipitor] 10 mg PO HS 01/01/16 [History] Docusate Sodium [Dok] 300 mg PO BID 01/01/16 [History] Albuterol Neb [Proventil Neb] 2.5 mg IH Q4HR PRN 08/25/16 [History] Bifidobacterium Infantis [Align] 4 mg PO DAILY 08/25/16 [History] Oxygen 2 l IN CONT #1 each 08/26/16 [Rx] Tramadol HCl 50 - 100 mg PO QID PRN 09/13/16 [History] Esomeprazole Magnesium [Nexium] 40 mg PO DAILY #30 capsule.dr 10/03/16 [Rx] Furosemide [Lasix] 40 mg PO BID #60 tablet 10/03/16 [Rx] Potassium Chloride [K-Tab ER] 20 meq PO DAILY #30 tablet.er 10/03/16 [Rx] Acetylcysteine [T-Hljpls-b-Cysteine] 600 mg PO BID 10/08/16 [History] Enoxaparin [Lovenox] 60 mg SQ Q12HR #10 syr 01/01/17 [Rx] Diltiazem CD (24hr) [Cardizem CD] 120 mg PO DAILY #30 cap.er.24h 01/12/17 [Rx] Enoxaparin [Lovenox] 60 mg SQ Q24H #5 syringe 01/12/17 [Rx] Sulfamethoxazole/Trimeth DS [Bactrim Ds] 1 each PO BID #17 tablet 01/12/17 [Rx] Warfarin [Coumadin] 7.5 mg PO DAILY #0 01/12/17 [Rx] predniSONE [PredniSONE] See Taper PO DAILY #18 tablet 01/12/17 [Rx] Allergies ceftriaxone [From Rocephin] Allergy (Severe, Verified 01/18/17 09:26) Hives ciprofloxacin [From Cipro HC] Allergy (Severe, Verified 01/18/17 09:26) Hives levofloxacin [From Levaquin] Allergy (Severe, Verified 01/18/17 09:26) Hives hydrocortisone [From Cipro HC] Allergy (Intermediate, Verified 01/18/17 09:26) Hives vancomycin Allergy (Mild, Verified 01/18/17 09:26) Rash Spoke with ID from [facility], in 2007 presented with skin rash which was subsequently attributed to either vancomycin, amiodarone, or another medicine as all other causes were ruled out. Important to note this was recorded as a rash and not hives, trouble breathing, etc. All Systems PM: A 10-system review of systems was performed and is negative for pertinent findings except as documented above in the HPI. - Constitutional Constitutional: weakness - EENT Eyes: no change in vision, no discharge, no pain, no photophobia Nose, mouth and throat: no dysphagia, no nasal discharge, no neck pain, no sore throat - Cardiovascular Cardiovascular ROS IM: no chest pain, no diaphoresis, no dyspnea, no lightheadedness, no palpitations, no syncope - Respiratory Respiratory: cough, dyspnea on exertion, no dyspnea, no wheezing, no excessive phlegm production - Gastrointestinal Gastrointestinal: no abdominal pain, no diarrhea, no hematemesis, no hematochezia, no melena, no nausea, no vomiting - Genitourinary Genitourinary: no change in urinary stream, no dysuria, no flank pain, no hematuria - Musculoskeletal Musculoskeletal ROS IM: no numbness, no tingling - Integumentary Integumentary IM: no rash, no unusual bruising - Neurological Neurological ROS: no confusion, no convulsions, no focal weakness, no numbness, no tingling, no tremor(s) - Hematologic/Lymphatic Hematologic/Lymphatic: easy bruising - Constitutional Vitals: Temp Pulse Resp BP Pulse Ox 97.8 F 22 20 106/58 95 01/18/17 09:15 01/18/17 10:23 01/18/17 11:51 01/18/17 11:51 01/18/17 10:23 General appearance: Present: A&O X 3 - Head Head exam: Present: atraumatic, normocephalic - Eye Eye exam: Present: PERRL, conjuntiva pink, sclera anicteric Pupils: Present: PERRL - Neck Neck exam general surgery: Present: supple, trachea midline. Absent: lymphadenopathy - Respiratory Respiratory exam: Present: rhonchi. Absent: accessory muscle use, rales, wheezes - Cardiovascular Cardiovascular exam: Present: RRR, +S1, +S2. Absent: diastolic murmur, gallop, rubs, systolic murmur - GI/Abdominal GI/Abdominal exam: Present: normal bowel sounds, soft, no peritoneal signs. Absent: distended, tenderness - Extremities Exam Extremities exam: Present: warm, radial pulses palpable and symetrical. Absent : calf tenderness, cyanotic, pedal edema - Neurological Exam Neurological exam: Present: CN II-XII intact, oriented X3, no focal deficits. Absent: pronater drift, facial droop, speech deficit - Skin Skin exam: Present: dry, intact Internal Med - H&P Results - Labs CBC & Chem 7: 01/18/17 09:42 01/18/17 09:42 - Impressions Atrial fibrillation - Diagnostic Studies Chest x-ray Additional comments: Chest X-Ray 01/18/17 09:21 IMPRESSION: Stable chest x-ray at over the past 3 weeks with ill-defined airspace disease of the right lung base which may be due to pneumonia, atelectasis, aspiration or a combination. Underlying malignancy is a consideration given the lack of change. Unchanged atelectasis of the left lower lobe. Advanced emphysema D/ / Jewel Collins MD / Jewel Collins MD Interpreting Provider: Jewel Collins MD
[2017-01-18 13:16] LABS: INR 3.1; Prothrombin Time 34.3 Seconds (9.4-12.1)
[2017-01-18] MEDS ORDERED: Acetylcysteine 10% 2 ML INHSOL IH SCH (13:30)
--- NOTE | 2017-01-18 14:07 | Pulmonology Consult Note ---
Date of Encounter: 01/18/17 Time of Encounter: 14:02 Assessment and Plan (1) Acute on chronic respiratory failure with hypoxemia Current Visit: Yes Status: Acute Acute chronic respiratory failure with hypoxia in this particular individual is mainly due to advanced COPD ("acute-chronic exacerbation") with emphysematous and bronchitic clinical features. Per evaluation of the radiograph of the chest (including CT scans), the patient also has mild fibrosis and bronchiectasis and bronchiolitis. The chest imaging study also suggests propensity for mucous obstruction of airways particularly right lower lobe. At this time, I do not believe that the patient has an active respiratory infection. The patient has nearly completed a two-week course of Bactrim for treatment of possible Stenotrophomonas respiratory infection and aside from change in the character of her sputum, treatment directed towards this pathogen is not provided a substantial clinical respiratory improvement. Therefore, at this point, I think it would be prudent to not provide any additional antibiotic therapy rather direct treatment towards improvement of pulmonary hygiene aggressive management of COPD. I did tell the patient that atypical cells were identified from bronchoscopy. Atypical cells may be due to high airway inflammatory atypia as opposed to malignancy however, this patient certainly is at increased risk of chest malignancy and I believe would be best served by undergoing repeat bronchoscopy with sampling within the next 4-6 weeks (assuming that she progresses in the favorable manner). Aside from supplemental oxygen, bronchodilator therapy and systemic steroids ( which can be provided anterolaterally), the patient should utilize a flutter valve for enhancement of pulmonary hygiene. I would recommend early mobilization as much as possible. Although the patient does have a history of atrial fibrillation and prosthetic valve replacement, I do not think that her cardiac status is currently culprit for the development of respiratory issues. Patient longer smokes. Immunizations are up-to-date. She has attended pulmonary rehabilitation in the past and I recommended at some point would be to her advantage to re-attending pulmonary rehabilitation. I reviewed my impressions and recommendations with the patient as well as her son-in-law. Margaret Cloud [phone] Code(s): J96.21 - Acute and chronic respiratory failure with hypoxia SNOMED Code(s): 32465327151656514 History of Present Illness Consult date: 01/18/17 Chief complaint: Dyspnea History of present illness: Is is no is a 71-year-old female well known to the pulmonary service to was just recently admitted to the hospital discharged after an approximate 7-8 day stay within the facility. She was originally admitted to the hospital with progressive dyspnea, cough with dark pablo sputum production, increasing volume of secretions, progressive breathlessness and activity limitation and fatigue. The evaluation during her last hospitalization included bronchoscopy with assessment of the right lower lobe given the progressive unresolving infiltrate noted from chest imaging. Reportedly, Stenotrophomonas was identified from the microbiological analysis specimens from the right lower lobe (atypical cells were also noted as well) and hence the patient was placed on Bactrim. In spite of completing a nearly 14 day course of therapy, the patient noted no significant improvement in her respiratory symptoms (other than a modest clearing of the crease color). She sought evaluation and readmission to the hospital given her lack of substantial improvement. In fact, other than the clearing of the secretion color, she really did not note any substantial overall improvement of her clinical and functional status at the time of discharge versus the time of her initial admission to the hospital. Currently, the patient denies fever, chills, hemoptysis. Furthermore, she denies any substantial change in her weight. Patient admits to easy fatigability malaise mild depression but additional comprehensive review of systems unremarkable. She is a former extensive smoker. She has well-defined COPD with emphysematous bronchitic clinical features. She would be deemed a frequent exacerbator phenotype based upon her history and clinical features. The patient also likely has underlying mild pulmonary fibrosis and bronchiectasis based upon my review of imaging studies. Past Med Surg Social Fam HX - Past Medical History Medical history: arthritis, atrial fibrillation, cardiomyopathy, CHF, COPD, fibromyalgia, hypertension, myocardial infarction, osteoporosis, RA, other Psychiatric history: no psych history - Past Surgical History Surgical History: angioplasty/stent, cholecystectomy, coronary bypass (CABG), heart valve replacement, orthopedic, other - Social History Smoking Status: Former smoker Smokeless Tobacco Status: No Alcohol use: none Drug use: none - Family History Father Living Status: Hx Family Cardiac Disorders: Yes (open heart surgery) Hx Family Respiratory Disorders: No Hx Family Cancer: Yes (Liver cancer w/ mets) Hx Family GI Disorders: No Hx Family Genitourinary Disorders: No Hx Family Endocrine Disorder: No Hx Family Musculoskeletal Disorders: No Hx Family Neuromuscular Disorders: No Hx Family Neurologic Disorders: No Hx Family HEENT Disorders: No Hx Family Autoimmune Disorders: No Hx Family Reproductive Disorders: No Hx Family Psychosocial Disorders: No Hx Family Medical Disorders: No Mother Living Status: Hx Family Cardiac Disorders: No Hx Family Respiratory Disorders: Yes Hx Family Cancer: Yes (bone, lung) Hx Family GI Disorders: No Hx Family Genitourinary Disorders: No Hx Family Endocrine Disorder: No Hx Family Musculoskeletal Disorders: No Hx Family Neuromuscular Disorders: No Hx Family Neurologic Disorders: No Hx Family HEENT Disorders: No Hx Family Autoimmune Disorders: No Hx Family Reproductive Disorders: No Hx Family Psychosocial Disorders: No Hx Family Medical Disorders: No Medications and Allergies Albuterol Sulfate [Albuterol Inhaler] 1 - 2 puff IH Q4HR PRN 11/24/15 [History] Allopurinol [Zyloprim 100 MG] 100 mg PO DAILY 11/24/15 [History] Budesonide/Formoterol 160/4.5 [Symbicort 160/4.5] 2 puff IH BIDR 11/24/15 [ History] Calcium Carbonate [Calcium] 500 mg PO BID 11/24/15 [History] Cholecalciferol (D-3) [Vitamin D] 2,000 unit PO DAILY 11/24/15 [History] Fluticasone Propionate Nasal [Flonase] 1 spray NS DAILY 11/24/15 [History] Gabapentin [Neurontin] 200 mg PO HS 11/24/15 [History] Loratadine [Claritin] 10 mg PO DAILY 11/24/15 [History] Metoprolol XL (24 HR) Succ [Toprol Xl] 12.5 mg PO BID 11/24/15 [History] Montelukast [Singulair] 10 mg PO DAILY 11/24/15 [History] Nitroglycerin [Nitrostat] 0.4 mg SL Q5M PRN 11/24/15 [History] Nortriptyline [Pamelor] 10 mg PO HS 11/24/15 [History] Roflumilast [Daliresp] 500 mcg PO DAILY 11/24/15 [History] Vitamin B Complex [B Complex] 1 tab PO DAILY 11/24/15 [History] Umeclidinium [place] [Incruse Ellipta] 1 puff IH DAILY 12/17/15 [History] Atorvastatin [Lipitor] 10 mg PO HS 01/01/16 [History] Docusate Sodium [Dok] 300 mg PO BID 01/01/16 [History] Albuterol Neb [Proventil Neb] 2.5 mg IH Q4HR PRN 08/25/16 [History] Bifidobacterium Infantis [Align] 4 mg PO DAILY 08/25/16 [History] Oxygen 2 l IN CONT #1 each 08/26/16 [Rx] Tramadol HCl 50 - 100 mg PO QID PRN 09/13/16 [History] Esomeprazole Magnesium [Nexium] 40 mg PO DAILY #30 capsule.dr 10/03/16 [Rx] Furosemide [Lasix] 40 mg PO BID #60 tablet 10/03/16 [Rx] Potassium Chloride [K-Tab ER] 20 meq PO DAILY #30 tablet.er 10/03/16 [Rx] Acetylcysteine [J-Uympgq-y-Cysteine] 600 mg PO BID 10/08/16 [History] Enoxaparin [Lovenox] 60 mg SQ Q12HR #10 syr 01/01/17 [Rx] Diltiazem CD (24hr) [Cardizem CD] 120 mg PO DAILY #30 cap.er.24h 01/12/17 [Rx] Enoxaparin [Lovenox] 60 mg SQ Q24H #5 syringe 01/12/17 [Rx] Sulfamethoxazole/Trimeth DS [Bactrim Ds] 1 each PO BID #17 tablet 01/12/17 [Rx] Warfarin [Coumadin] 7.5 mg PO DAILY #0 01/12/17 [Rx] predniSONE [PredniSONE] See Taper PO DAILY #18 tablet 01/12/17 [Rx] Allergies ceftriaxone [From Rocephin] Allergy (Severe, Verified 01/18/17 09:26) Hives ciprofloxacin [From Cipro HC] Allergy (Severe, Verified 01/18/17 09:26) Hives levofloxacin [From Levaquin] Allergy (Severe, Verified 01/18/17 09:26) Hives hydrocortisone [From Cipro HC] Allergy (Intermediate, Verified 01/18/17 09:26) Hives vancomycin Allergy (Mild, Verified 01/18/17 09:26) Rash Spoke with ID from [facility], in 2007 presented with skin rash which was subsequently attributed to either vancomycin, amiodarone, or another medicine as all other causes were ruled out. Important to note this was recorded as a rash and not hives, trouble breathing, etc. All Systems: A 10-system review of systems was performed and is negative for pertinent findings except as documented above in the HPI. - Constitutional Constitutional: as per HPI - Cardiovascular Cardiovascular: as per HPI - Respiratory Respiratory: as per HPI Physical Examination Vital Signs: Vital Signs, Last 4 Hours Resp BP 01/18/17 11:51 20 106/58 General appearance: no acute distress, other (Cushingoid-appearing female appears much older than her stated age, vitals reviewed.) Eyes: nonicteric ENT: oropharynx moist Neck: supple, no lymphadenopathy, JVD Effort: mildly labored Inspection: kyphosis Auscultation: bilateral: diminished breath sounds, other (No prolonged expiratory phase with end expiratory wheeze and inspiratory squeaks within the right lower lobe distribution.) Cardiovascular: regular rate and rhythm, murmur noted, other (Prosthetic valve click noted. Anterior chest notable for well-healed sternotomy.) Gastrointestinal: normoactive bowel sounds, non-distended Integumentary: other (Ecchymosis of the upper extremities and lower extremities , mild venous stasis changes lower extremities.) Extremities: no cyanosis, edema, other (Mild clubbing of the fingers) Musculoskeletal: other (Osteoarthritic deformity of hands) normal mental status, non-focal exam mood appropriate Results - Laboratory Findings CBC and BMP: 01/18/17 09:42 01/18/17 09:42 PT/INR, D-dimer PT 34.3 Seconds (9.4-12.1) H D 01/18/17 13:00 Abnormal lab findings: Abnormal lab results WBC 13.6 K/mcL (4.3-11.1) H 01/18/17 09:42 RBC 5.10 M/mcL (3.82-4.97) H 01/18/17 09:42 MCH 26.5 pg (28.0-33.3) L 01/18/17 09:42 RDW 17.0 % (11.5-14.5) H 01/18/17 09:42 Neutrophils # 10.5 K/mcL (1.6-8.9) H 01/18/17 09:42 Monocytes # 1.5 K/mcL (0.0-1.3) H 01/18/17 09:42 PT 34.3 Seconds (9.4-12.1) H D 01/18/17 13:00 Potassium 3.2 mEq/L (3.5-4.5) L 01/18/17 09:42 BUN 31 mg/dL (7-20) H 01/18/17 09:42 Creatinine 1.27 mg/dL (0.57-1.11) H 01/18/17 09:42 Est GFR ( Amer) 51 (> 60) L 01/18/17 09:42 Est GFR (Non-Af Amer) 42 (> 60) L 01/18/17 09:42 B-Natriuretic Peptide 214 pg/mL (0-100) H 01/18/17 09:42 Consult Discharge Plan - Plan Referrals: Christoph Hughes DO [Primary Care Provider] -
[2017-01-18] MEDS ORDERED: Nitroglycerin 0.4 MG TAB.SUBL SL PRN (15:02)
[2017-01-18] MEDS: Ipratropium/Albuterol Neb 3 ML IH SCH ×3 (15:44→23:53)
[2017-01-18] MEDS: Acetylcysteine 10% 2 ML INHSOL IH SCH ×3 (15:44→20:06)
[2017-01-18] MEDS ORDERED: *HR* Warfarin 5 MG TABLET PO ONE (18:00)
[2017-01-18] MEDS ORDERED: Warfarin perPT PO PRN (18:00)
[2017-01-18] MEDS: MethylPREDNISolone 40 MG/ML VIAL IVP SCH (18:01)
[2017-01-18] MEDS: Budesonide/Formoterol 160/4.5 MDI IH SCH (20:06)
[2017-01-18] MEDS: Sulfamethoxazole/Trimeth DS 1 EACH TABLET PO SCH (21:19)
[2017-01-18] MEDS: Gabapentin 100 MG CAPSULE PO SCH (21:20)
[2017-01-18] MEDS: Furosemide 40 MG TABLET PO SCH (21:20)
[2017-01-18] MEDS: Metoprolol XL (24 HR) Succ 25 MG TAB.ER.24H PO SCH (21:20)
[2017-01-19] MEDS: MethylPREDNISolone 40 MG/ML VIAL IVP SCH ×5 (00:15→23:39)
[2017-01-19] MEDS: Ipratropium/Albuterol Neb 3 ML IH SCH ×6 (03:57→23:09)
[2017-01-19] MEDS: Acetylcysteine 10% 2 ML INHSOL IH SCH ×4 (03:57→19:53)
[2017-01-19 04:06] LABS: Hematocrit 36.9 % (35.3-44.9); Immature Granulocytes % 0.9 % (0-4); Lymphocytes # 0.3 K/mcL (0.6-4.6); Lymphocytes % 4.6 %; Mean Corpuscular HGB Conc 31.7 g/dL (31.6-35.5); Mean Corpuscular Hemoglobin 26.4 pg (28.0-33.3); Mean Corpuscular Volume 83.3 fL (83.0-100.0); Mean Platelet Volume 10.6 fL (9.4-12.4); Monocytes # 0.2 K/mcL (0.0-1.3); Monocytes % 2.6 %; Neutrophils # 6.5 K/mcL (1.6-8.9); Platelet Count 172 K/mcL (140-400); Red Blood Count 4.43 M/mcL (3.82-4.97); Red Cell Distribution Width 16.4 % (11.5-14.5); Segmented Neutrophils % 91.9 %
[2017-01-19 04:07] LABS: Hemoglobin 11.7 g/dL (11.5-15.4)
[2017-01-19 04:10] LABS: INR 3.5; Prothrombin Time 39.7 Seconds (9.4-12.1)
[2017-01-19 04:16] LABS: Calcium 8.9 mg/dL (8.6-10.8); Potassium 4.2 mEq/L (3.5-4.5)
--- NOTE | 2017-01-19 06:28 | Electrocardiograph Report ---
[address] [address] Test Date: 2017-01-18 Pat Name: Yasmeen Dewitt Department: 105 Room: 3B22 Gender: F Post Closer: [facility] : 1945 Requested By: Hang Paris Order Number: [id number] Reading MD: Greg Cadet MD Measurements Intervals [place] Rate: 101 P: -39 HI: 100 QRS: 52 QRSD: 80 T: 70 QT: 330 QTc: 388 Interpretive Statements ACCELERATED JUNCTION RHYTHM WITH INTERPOLATED PACS OR SINUS BEATS Electronically Signed On 01-19-2017 6:26:24 EDT by Greg Cadet MD
[2017-01-19] MEDS: Budesonide/Formoterol 160/4.5 MDI IH SCH ×2 (07:43→19:53)
[2017-01-19] MEDS: Metoprolol XL (24 HR) Succ 25 MG TAB.ER.24H PO SCH ×2 (09:17→20:44)
[2017-01-19] MEDS: Cholecalciferol (D-3) 1,000 UNIT TABLET PO SCH (09:17)
[2017-01-19] MEDS: Vitamin B Complex/Vit C/Vit E 1 EACH TABLET PO SCH (09:17)
[2017-01-19] MEDS: Sulfamethoxazole/Trimeth DS 1 EACH TABLET PO SCH (09:17)
[2017-01-19] MEDS: Umeclidinium Bromide [Incruse Ellipta] 1 PUFF IH SCH (09:18)
[2017-01-19] MEDS: Roflumilast [Daliresp] 500 MCG PO SCH (09:18)
[2017-01-19] MEDS: Diltiazem CD (24hr) 120 MG CAPSULE PO SCH (09:18)
[2017-01-19] MEDS: Bifidobacterium Infantis [Align] 4 MG PO SCH (09:18)
[2017-01-19] MEDS: Furosemide 40 MG TABLET PO SCH ×2 (09:18→20:44)
[2017-01-19] MEDS: Fluticasone Propionate Nasal 50 MCG/SPRAY BOTTLE NS SCH (10:12)
--- NOTE | 2017-01-19 12:11 | Internal Med Progress Note ---
Date of Encounter: 01/19/17 Time of Encounter: 09:20 - Assessment and plan (1) Pneumonia Current Visit: Yes Status: Acute Assessment and plan: Patient reports increased shortness breath over the last few days despite use for oxygen and inhalers. She says she is consistently diligent with taking her medications as prescribed. Patient continued course of Bactrim by mouth that she started. She will also continue her normal amount of home O2, IV steroids, breathing treatments, and Mucomyst treatments. Patient has been seen by pulmonology during this visit. They do not feel that she has an active respiratory infection. We will finish her Bactrim, as they do not recommend providing additional antibiotic therapy. I also recommend that she follow up outpatient for repeat bronchoscopy in 4-6 weeks. Patient is aware. We will continue her flutter valve here, patient is also getting up to the bedside and ambulating in her room. She says she feels better and has noticed a difference because she did not do that when she arrived and was admitted. Lungs are diminished, sound tight, with expiratory wheezing in all posterior fletcher. There is no stridor, rhonchi, or rales. Patient speaks easily in long phrases. Continue telemetry Finish antibiotic Breathing treatments and Mucomyst treatments Qualifiers: Pneumonia type: due to other aerobic Gram-negative bacteria Laterality: bilateral Lung location: unspecified part of lung Qualified Code(s): J15.6 - Pneumonia due to other aerobic Gram-negative bacteria (2) Hypertension Current Visit: Yes Status: Chronic Assessment and plan: Continue home medications. Continue to monitor vital signs her blood pressure. Qualifiers: Hypertension type: essential hypertension Qualified Code(s): I10 - Essential (primary) hypertension (3) H/O mitral valve replacement with mechanical valve Current Visit: Yes Status: Chronic Assessment and plan: Continue Coumadin. INR is 3.5 today. Pharmacy is dosing. Continue to monitor. (4) Acute and chronic respiratory failure Current Visit: Yes Status: Chronic Assessment and plan: Plan as above. Patient is maintaining sats greater than 92% on 3 L of oxygen. Patient does have home O2 at 3 L. Qualifiers: Respiratory failure complication: hypoxia Qualified Code(s): J96.21 - Acute and chronic respiratory failure with hypoxia (5) Diastolic heart failure Current Visit: Yes Status: Chronic Assessment and plan: No acute exacerbation. Continue home medications. Qualifiers: Heart failure chronicity: chronic Qualified Code(s): I50.32 - Chronic diastolic (congestive) heart failure (6) COPD (chronic obstructive pulmonary disease) Current Visit: Yes Status: Chronic Assessment and plan: Plan as above. Qualifiers: COPD type: unspecified COPD Qualified Code(s): J44.9 - Chronic obstructive pulmonary disease, unspecified (7) Hypokalemia Current Visit: Yes Status: Resolved Assessment and plan: Resolved. Potassium 4.2 today. Continue to monitor. (8) DVT prophylaxis Current Visit: Yes Status: Acute Assessment and plan: Patient is on Coumadin. Patient is also ambulatory in room as much as possible. Continue to monitor. - Time Spent With Patient less than 15 minutes - Subjective Interval history: Pt sitting up in chair at bedside. She reports 4-5 day history of DEBBIE, states that she did not ever get better after her last admission and discharge on . Pt does appear to be in mild respiratory distress. She is wearing 02 at 4L during exam and lungs are diminished with faint expiratory wheezing in all post fletcher. Due to patient's history and recent admissions, I will keep her for a few more days and monitor her and continue the IV Solumedrol. Pt speaks easily in long phrases. - Constitutional Vitals: Temp Pulse Resp BP Pulse Ox 98.1 F 66 16 112/63 95 01/19/17 11:01 01/19/17 11:01 01/19/17 11:01 01/19/17 11:01 01/19/17 11:01 General appearance: Present: cooperative, A&O X 3, pleasant, answers questions appropriately Exam: moderate distress - Head Head exam: Present: normal inspection - Eye Eye exam: Present: EOMI, normal appearance, conjuntiva pink - ENT ENT exam: Present: mucous membranes moist, normal exam, normal external ear exam - Neck Neck exam general surgery: Present: normal inspection. Absent: lymphadenopathy , tenderness - Respiratory Respiratory exam: Present: decreased breath sounds, prolonged expiratory phase, respiratory distress, wheezes. Absent: chest wall tenderness, rales, rhonchi, stridor, tachypnea - Cardiovascular Cardiovascular exam: Present: RRR, +S1, +S2. Absent: clicks, diastolic murmur, gallop, systolic murmur - GI/Abdominal GI/Abdominal exam: Present: distended, normal bowel sounds, soft. Absent: hepatomegaly, tenderness - Extremities Exam Extremities exam: Present: normal capillary refill, warm, radial pulses palpable and symetrical. Absent: pedal edema, tenderness - Neurological Exam Neurological exam: Present: alert, oriented X3, no focal deficits, strengths equal and symetr throughout. Absent: facial droop, speech deficit - Skin Skin exam: Present: dry, intact, normal color, warm. Absent: petechiae, rash Internal Medicine: Result - Labs CBC & Chem 7: 01/19/17 03:50 01/19/17 03:50 Labs: Short CBC 01/19/17 Range/Units 03:50 WBC 7.0 (4.3-11.1) K/mcL Hgb 11.7 D (11.5-15.4) g/dL Hct 36.9 (35.3-44.9) % Plt Count 172 (140-400) K/mcL Neutrophils # 6.5 (1.6-8.9) K/mcL BMP 01/19/17 03:50 Sodium 135 L Potassium 4.2 D Chloride 102 Carbon Dioxide 28 BUN 30 H Creatinine 1.17 H Glucose 141 H Calcium 8.9 Cardiac Enzymes 01/18/17 01/18/17 Range/Units 15:00 23:00 Troponin I 0.01 0.01 (0-0.03) ng/mL - ABG Interpretation ABG results: PT/INR, D-dimer PT 39.7 Seconds (9.4-12.1) H 01/19/17 03:50 Consult Discharge Plan - Plan Referrals: Christoph Hughes DO [Primary Care Provider] -
--- NOTE | 2017-01-19 12:22 | Pulmonology Progress Note ---
Date of Encounter: 01/19/17 Time of Encounter: 09:00 Assessment and Plan (1) Acute on chronic respiratory failure with hypoxemia Current Visit: Yes Status: Acute Acute chronic respiratory failure with hypoxia this individual is due to advanced COPD combined with interstitial fibrotic lung disease, bronchiectasis and bronchiolitis. I have a recommend continued bronchodilator therapy as provided by the primary service to be using conjunction with the flutter valve device for enhanced pulmonary toilet. I agree with the current use of systemic steroids, these could be switched to enteral route within the next 24 hours. Given the severity of her lung disease, I think she should undergo a gradual taper of steroid as opposed to just the 5-7 day course as typically provided. I have stopped Bactrim since I do not believe the patient has an active respiratory infection. Stenotrophomonas identified at the time of bronchoscopy may very well represent colonization (edification of this organism from pulmonary cultures is always a sign of advanced lung disease). The patient will require follow-up evaluation in several weeks with the outpatient pulmonary service in light of atypical cells noted from bronchoscopy during evaluation of right lower lobe abnormality (likely mucoid retained secretions bronchiectasis as the radiographic abnormality). I did review with the patient the importance of really attending pulmonary rehabilitation a local facility ([facility]). 5 patient's clinical respiratory status continued to improve, she may be a candidate for release within the next 48 hours. Please feel free to call if you have any questions. Marleny Cloud [phone] Code(s): J96.21 - Acute and chronic respiratory failure with hypoxia SNOMED Code(s): [id number] Subjective Principal diagnosis: COPD, abnormal chest CT scan Interval history: Since admission, the patient notes an improvement in her sense of breathlessness. She continues to cough expectorating secretions following use of nebulizer treatments as well as a flutter valve notes a mucoid character to the secretions. She also notes an improvement in her ability to perform perform volitional activities within the hospital room. Objective PUL Vital signs: Last Vital Signs Temp 98.1 F 01/19/17 11:01 Pulse 66 01/19/17 11:01 Resp 16 01/19/17 11:01 BP 112/63 01/19/17 11:01 Pulse Ox 95 01/19/17 11:01 General appearance: no acute distress, other (Patient appears older than her stated age) Eyes: nonicteric ENT: oropharynx moist Auscultation: right: rhonchi (Faint rhonchi and inspiratory squeaks noted within the right lower lung zone, improved in comparison to yesterday's evaluation.), bilateral: diminished breath sounds Cardiovascular: regular rate and rhythm Gastrointestinal: normoactive bowel sounds, non-distended Extremities: edema, other (Mild nailbed clubbing) Results - Laboratory Findings CBC and BMP: 01/19/17 03:50 01/19/17 03:50 PT/INR, D-dimer PT 39.7 Seconds (9.4-12.1) H 01/19/17 03:50 Abnormal lab findings: Abnormal lab results MCH 26.4 pg (28.0-33.3) L 01/19/17 03:50 RDW 16.4 % (11.5-14.5) H 01/19/17 03:50 Lymphocytes # 0.3 K/mcL (0.6-4.6) L 01/19/17 03:50 PT 39.7 Seconds (9.4-12.1) H 01/19/17 03:50 Sodium 135 mEq/L (136-145) L 01/19/17 03:50 BUN 30 mg/dL (7-20) H 01/19/17 03:50 Creatinine 1.17 mg/dL (0.57-1.11) H 01/19/17 03:50 Est GFR ( Amer) 56 (> 60) L 01/19/17 03:50 Est GFR (Non-Af Amer) 46 (> 60) L 01/19/17 03:50 Glucose 141 mg/dL (70-99) H 01/19/17 03:50 B-Natriuretic Peptide 214 pg/mL (0-100) H 01/18/17 09:42 - Microbiology Findings Microbiology Findings: Microbiology, Last 48 Hours 01/19/17 06:45 Sputum Culture - Preliminary Sputum - Clinical Findings Intake & Output: Intake & Output 01/18/17 01/19/17 01/19/17 23:59 07:59 15:59 Intake Total 240 / 240 Balance 240 / 240 Weight 55.5 kg Consult Discharge Plan - Plan Referrals: Christoph Hughes DO [Primary Care Provider] -
[2017-01-19] MEDS ORDERED: *HR* Warfarin 2.5 MG TABLET PO ONE (18:00)
[2017-01-19] MEDS: Acetaminophen 325 MG TABLET PO PRN (20:43)
[2017-01-19] MEDS: Gabapentin 100 MG CAPSULE PO SCH (20:44)
[2017-01-20] MEDS: Ipratropium/Albuterol Neb 3 ML IH SCH ×6 (04:01→23:53)
[2017-01-20] MEDS: Acetylcysteine 10% 2 ML INHSOL IH SCH ×4 (04:01→19:59)
[2017-01-20 04:03] LABS: Hematocrit 35.5 % (35.3-44.9); Hemoglobin 11.5 g/dL (11.5-15.4); Immature Granulocytes % 0.7 % (0-4); Lymphocytes # 0.5 K/mcL (0.6-4.6); Lymphocytes % 4.5 %; Mean Corpuscular HGB Conc 32.4 g/dL (31.6-35.5); Mean Corpuscular Hemoglobin 26.8 pg (28.0-33.3); Mean Corpuscular Volume 82.8 fL (83.0-100.0); Mean Platelet Volume 10.6 fL (9.4-12.4); Monocytes # 0.5 K/mcL (0.0-1.3); Neutrophils # 9.4 K/mcL (1.6-8.9); Platelet Count 167 K/mcL (140-400); Red Blood Count 4.29 M/mcL (3.82-4.97); Red Cell Distribution Width 16.7 % (11.5-14.5); Segmented Neutrophils % 89.8 %
[2017-01-20 04:19] LABS: Prothrombin Time 44.3 Seconds (9.4-12.1)
[2017-01-20 04:20] LABS: INR 3.9
[2017-01-20 04:35] LABS: Calcium 9.2 mg/dL (8.6-10.8); Potassium 4.1 mEq/L (3.5-4.5)
[2017-01-20] MEDS: MethylPREDNISolone 40 MG/ML VIAL IVP SCH ×4 (06:16→23:56)
[2017-01-20] MEDS: Budesonide/Formoterol 160/4.5 MDI IH SCH ×2 (07:55→20:00)
[2017-01-20] MEDS: Fluticasone Propionate Nasal 50 MCG/SPRAY BOTTLE NS SCH (08:34)
[2017-01-20] MEDS: Furosemide 40 MG TABLET PO SCH ×2 (09:47→20:06)
[2017-01-20] MEDS: Cholecalciferol (D-3) 1,000 UNIT TABLET PO SCH (09:48)
[2017-01-20] MEDS: Acetaminophen 325 MG TABLET PO PRN ×2 (09:48→21:04)
[2017-01-20] MEDS: Diltiazem CD (24hr) 120 MG CAPSULE PO SCH (09:49)
[2017-01-20] MEDS: Metoprolol XL (24 HR) Succ 25 MG TAB.ER.24H PO SCH ×2 (09:50→20:06)
[2017-01-20] MEDS: Vitamin B Complex/Vit C/Vit E 1 EACH TABLET PO SCH (09:51)
[2017-01-20] MEDS: Umeclidinium Bromide [Incruse Ellipta] 1 PUFF IH SCH (09:52)
[2017-01-20] MEDS: Roflumilast [Daliresp] 500 MCG PO SCH (09:52)
[2017-01-20] MEDS: Bifidobacterium Infantis [Align] 4 MG PO SCH (09:52)
--- NOTE | 2017-01-20 10:42 | Palliative - Consult Note ---
Date of Encounter: 01/20/17 Time of Encounter: 10:00 - Assessment and Plan (1) Dyspnea Current Visit: Yes Status: Acute Assessment and plan: This is secondary to her COPD and CHF. I believe this is primarily due to her COPD. Is currently being followed by pulmonary, pulmonary's note indicates the patient's Jackie slow taper with her steroids. The patient states categorically that this is something that works for her and is also part of the problem she feels with her number of hospitalizations. Patient is currently responding well to medications, and you current medications per hospitalist and pulmonary plans and plan for slow taper as per pulmonary instructions. Qualifiers: Dyspnea type: shortness of breath Qualified Code(s): R06.02 - Shortness of breath (2) COPD exacerbation Current Visit: Yes Status: Acute Assessment and plan: Patient certainly has COPD the patient is still able to get around pretty well. Patient does use 2 L/m at home as needed and she knows when to use it and how to use it. Her the pulmonary note the Teare identified on bronchoscopy presents colonization is a sign of advanced lung disease pulmonary does not believe the patient requires any further Bactrim. (3) Goals of care, counseling/discussion Current Visit: Yes Status: Acute Assessment and plan: Long very good discussion with patient, and her also came in towards the end. The patient wishes to be a full code and understands the ramifications of this. We did discuss at length for goals of care and she wishes to return home. She understands were hospice fits in this situation given her multiple hospitalizations, however at this time she is not feeling sick and tired of being sick and tired he feels that she has a good chance at returning back to a more reasonable baseline. Paco her self of hospice when she feels this is appropriate. More important is the patient does now understand the need for a medical power of workers compensation defense attorney and doing her advanced directives and she is open to getting this done. I will discuss with social work. (4) Failure of outpatient treatment Current Visit: No Status: Acute Assessment and plan: Per the pulmonary note the patient will require a (5) Constipation Current Visit: No Status: Chronic Assessment and plan: Patient states is normal for her to have a bowel movement about every day. She has not had one for several days. She is on large doses of Colace, but on no bowel stimulant I will place her on bowel stimulation regimen for this at this time. Qualifiers: Constipation type: slow transit constipation Qualified Code(s): K59.01 - Slow transit constipation Palliative-CN HPI - Data of Consult Patient: new to practice Requesting Physician: Samantha Everett Primary Care Provider: Christoph Hughes - Consult Narrative Palliative Care/Comfort Measures: Palliative care Reason for consult: goals of care, code status History of present illness: Ms. Dewitt is a 71 year old female History of COPD, A. fib chronic kidney disease post mitral valve replacement recently hospitalized for right lower lobe pneumonia and acute COPD. Patient presented to the back to the emergency room stated that she really never felt better and was discharged. She felt like she was discharged bit early. She has been hospitalized multiple times this last 6 months and although she does state that this has been a worsening six-month for her she feels that her hospitalizations have been largely due to being discharged to soon or having her steroids not tapered off in an appropriate fashion. She states she does much better with a long taper rather than just a short burst. He has been complaining about difficulty with shortness of breath is present with any exertion. She does use oxygen at home but does not need to have it on all the time especially if she is at rest moving around she does not feel much need for it. She states that she does not have much in the way of leg swelling unless her salt gets out of whack, she does recognize she has congestive heart failure and knows that if she just takes too much salt he will have swelling and more trouble breathing. Has not had much cough she has had no fever there has been no production with little bit of cough that she has had. Had no chest pain he has no nausea vomiting no diarrhea she does have trouble with constipation. The only pain issues is that she has rheumatoid arthritis which of course gets better when she is on her steroids for her COPD. He states this is a very deep achy pain that is primarily in her hands and feet and is worse in the morning and takes a while to wring out. Steroids do help. Palliative care is consulted regarding the number of hospitalizations patient's had the last 6 months. Please see above patient really feels that if she had longer tapers on her steroids and was not aggressive out of the hospital quite so quick she would have had nearly so many hospitalizations. We see the assessment and plan for full for full discussion. CC: Samantha Everett sob Past Med Surg Social Fam HX - Past Medical History Medical history: arthritis, atrial fibrillation, cardiomyopathy, CHF, COPD, fibromyalgia, hypertension, myocardial infarction, osteoporosis, RA, other Psychiatric history: no psych history - Past Surgical History Surgical History: angioplasty/stent, cholecystectomy, coronary bypass (CABG), heart valve replacement, orthopedic, other - Social History Smoking Status: Former smoker Smokeless Tobacco Status: No Alcohol use: none Drug use: none - Family History Father Living Status: Hx Family Cardiac Disorders: Yes (open heart surgery) Hx Family Respiratory Disorders: No Hx Family Cancer: Yes (Liver cancer w/ mets) Hx Family GI Disorders: No Hx Family Genitourinary Disorders: No Hx Family Endocrine Disorder: No Hx Family Musculoskeletal Disorders: No Hx Family Neuromuscular Disorders: No Hx Family Neurologic Disorders: No Hx Family HEENT Disorders: No Hx Family Autoimmune Disorders: No Hx Family Reproductive Disorders: No Hx Family Psychosocial Disorders: No Hx Family Medical Disorders: No Mother Living Status: Hx Family Cardiac Disorders: No Hx Family Respiratory Disorders: Yes Hx Family Cancer: Yes (bone, lung) Hx Family GI Disorders: No Hx Family Genitourinary Disorders: No Hx Family Endocrine Disorder: No Hx Family Musculoskeletal Disorders: No Hx Family Neuromuscular Disorders: No Hx Family Neurologic Disorders: No Hx Family HEENT Disorders: No Hx Family Autoimmune Disorders: No Hx Family Reproductive Disorders: No Hx Family Psychosocial Disorders: No Hx Family Medical Disorders: No Medications and Allergies Albuterol Sulfate [Albuterol Inhaler] 1 - 2 puff IH Q4HR PRN 11/24/15 [History] Allopurinol [Zyloprim 100 MG] 100 mg PO DAILY 11/24/15 [History] Budesonide/Formoterol 160/4.5 [Symbicort 160/4.5] 2 puff IH BIDR 11/24/15 [ History] Calcium Carbonate [Calcium] 500 mg PO BID 11/24/15 [History] Cholecalciferol (D-3) [Vitamin D] 2,000 unit PO DAILY 11/24/15 [History] Fluticasone Propionate Nasal [Flonase] 1 spray NS DAILY 11/24/15 [History] Gabapentin [Neurontin] 200 mg PO HS 11/24/15 [History] Loratadine [Claritin] 10 mg PO DAILY 11/24/15 [History] Metoprolol XL (24 HR) Succ [Toprol Xl] 12.5 mg PO BID 11/24/15 [History] Montelukast [Singulair] 10 mg PO DAILY 11/24/15 [History] Nitroglycerin [Nitrostat] 0.4 mg SL Q5M PRN 11/24/15 [History] Nortriptyline [Pamelor] 10 mg PO HS 11/24/15 [History] Roflumilast [Daliresp] 500 mcg PO DAILY 11/24/15 [History] Vitamin B Complex [B Complex] 1 tab PO DAILY 11/24/15 [History] Umeclidinium Bucks [Incruse Ellipta] 1 puff IH DAILY 12/17/15 [History] Atorvastatin [Lipitor] 10 mg PO HS 01/01/16 [History] Docusate Sodium [Dok] 300 mg PO BID 01/01/16 [History] Albuterol Neb [Proventil Neb] 2.5 mg IH Q4HR PRN 08/25/16 [History] Bifidobacterium Infantis [Align] 4 mg PO DAILY 08/25/16 [History] Oxygen 2 l IN CONT #1 each 08/26/16 [Rx] Tramadol HCl 50 - 100 mg PO QID PRN 09/13/16 [History] Esomeprazole Magnesium [Nexium] 40 mg PO DAILY #30 capsule. 10/03/16 [Rx] Furosemide [Lasix] 40 mg PO BID #60 tablet 10/03/16 [Rx] Potassium Chloride [K-Tab ER] 20 meq PO DAILY #30 tablet.er 10/03/16 [Rx] Acetylcysteine [S-Wtemzd-r-Cysteine] 600 mg PO BID 10/08/16 [History] Diltiazem CD (24hr) [Cardizem CD] 120 mg PO DAILY #30 cap.er.24h 01/12/17 [Rx] Sulfamethoxazole/Trimeth DS [Bactrim Ds] 1 each PO BID #17 tablet 01/12/17 [Rx] predniSONE [PredniSONE] See Taper PO DAILY #18 tablet 01/12/17 [Rx] Warfarin [Coumadin] 2.5 mg PO FR 01/18/17 [History] Warfarin [Coumadin] 5 mg PO [place] 01/18/17 [History] Warfarin [Coumadin] 7.5 mg PO TUTH 01/18/17 [History] Allergies ceftriaxone [From Rocephin] Allergy (Severe, Verified 01/18/17 09:26) Hives ciprofloxacin [From Cipro HC] Allergy (Severe, Verified 01/18/17 09:26) Hives levofloxacin [From Levaquin] Allergy (Severe, Verified 01/18/17 09:26) Hives hydrocortisone [From Cipro HC] Allergy (Intermediate, Verified 01/18/17 09:26) Hives vancomycin Allergy (Mild, Verified 01/18/17 09:26) Rash Spoke with ID from [facility], in 2007 presented with skin rash which was subsequently attributed to either vancomycin, amiodarone, or another medicine as all other causes were ruled out. Important to note this was recorded as a rash and not hives, trouble breathing, etc. - Constitutional Constitutional ROS PAL: no decreased appetite, no anorexia, no chills, no fever( s), no lethargy, no malaise - EENT Eyes: no discharge, no pain Ears: no ear discharge, no ear pain Ears, nose, mouth, throat: no nasal congestion, no nasal discharge, no neck mass - Cardiovascular Cardiovascular ROS: dyspnea on exertion, edema, irregular heart rhythm, no chest pain, no chest pain at rest, no chest pain with activity - Respiratory Respiratory: cough (Slight), dyspnea, dyspnea on exertion, wheezing, chest congestion, no pain on inspiration, no excessive phlegm production - Gastrointestinal Gastrointestinal: constipation, no diarrhea, no nausea, no vomiting - Genitourinary Palliative ROS female: no flank pain, no nocturia, no pelvic pain, no urinary incontinence, no urinary urgency - Musculoskeletal Musculoskeletal ROS IM: arthralgias, joint swelling, no muscle weakness, no myalgias, no neck pain - Integumentary ROS Integumentary: no rash, no wounds, no jaundice - Neurological Neurological ROS: no behavioral changes, no burning sensations, no confusion, no focal weakness, no frequent falls - Psychiatric Psychiatric general PM: no anxiety, no change in appetite, no confusion, no depression, no difficulty concentrating, no homicidal ideation, no memory loss - Endocrine Endocrine IM: as per HPI Palliative Care-Exam - Constitutional Vitals: Temp Pulse Resp BP Pulse Ox 98.1 F 81 14 122/84 98 01/20/17 08:00 01/20/17 08:00 01/20/17 08:00 01/20/17 08:00 01/20/17 08:00 General appearance: Present: no acute distress - Head Head Exam: Present: atraumatic, normal inspection - Eye Eye exam: Present: EOMI, normal appearance - ENT ENT exam: Present: mucous membranes moist - Respiratory Respiratory exam: Present: decreased breath sounds - Cardiovascular Cardiovascular exam: Present: irregular rhythm - GI/Abdominal Exam GI/Abdominal exam: Present: normal bowel sounds, soft. Absent: tenderness - Extremities Exam Extremities exam: Present: pedal edema. Absent: normal inspection, tenderness - Neurological Exam Neurological exam: Present: alert, CN II-XII intact, oriented X3 - Psychiatric Psychiatric exam: Present: normal affect, normal mood. Absent: agitated, anxious - Skin Skin exam: Present: dry, warm Internal Medicine - CN: Reslt - Labs CBC & Chem 7: 01/20/17 03:50 01/20/17 03:50 Labs: Short CBC 01/20/17 Range/Units 03:50 WBC 10.5 (4.3-11.1) K/mcL Hgb 11.5 (11.5-15.4) g/dL Hct 35.5 (35.3-44.9) % Plt Count 167 (140-400) K/mcL Neutrophils # 9.4 H (1.6-8.9) K/mcL BMP 01/20/17 03:50 Sodium 138 Potassium 4.1 Chloride 103 Carbon Dioxide 29 BUN 45 H D Creatinine 1.37 H Glucose 125 H Calcium 9.2 - ABG Interpretation ABG results: PT/INR, D-dimer PT 44.3 Seconds (9.4-12.1) H* 01/20/17 03:50 Consult Discharge Plan - Plan Referrals: Christoph Hughes DO [Primary Care Provider] - Palliative Quality Palliative Quality: Screen for Code Status: Yes, Screen for Goals of Care: Yes, Screen for Pain: Yes, If Pain Regimen Started, Initiate Bowel Regimen: Yes, Screen for Nausea/Vomitting: Yes
--- NOTE | 2017-01-20 17:30 | Internal Med Progress Note ---
Date of Encounter: 01/20/17 Time of Encounter: 14:00 - Assessment and plan (1) Acute on chronic respiratory failure with hypoxemia Current Visit: Yes Status: Acute Assessment and plan: Secondary to acute exacerbation of COPD, Patient presented with a chief complaint of progressive shortness of breath. She is known to have advanced emphysema, interstitial fibrotic lung disease, bronchiectasis and bronchiolitis. She is oxygen dependent on 2 L nasal cannula. Patient recently underwent bronchoscopy and atrial stenotrophomonas that could be colonization. Chest x-ray shows ill defined area spaces disease over the right lung base, unchanged atelectasis of the left lower lobe, advanced emphysema. Appreciate pulmonology input. Continue nebulizations, glucocorticosteroids, Mucinex. No need for antibiotics. Continue slowly improving. (2) COPD exacerbation Current Visit: Yes Status: Acute Assessment and plan: Plan as above. (3) Atrial fibrillation Current Visit: No Status: Chronic Assessment and plan: Heart rate is controlled. Continue home medications. Qualifiers: Atrial fibrillation type: paroxysmal Qualified Code(s): I48.0 - Paroxysmal atrial fibrillation (4) CKD (chronic kidney disease) stage 3, GFR 30-59 ml/min Current Visit: No Status: Chronic Assessment and plan: At baseline. Avoid nephrotoxic agents as possible. (5) Diastolic heart failure Current Visit: Yes Status: Chronic Assessment and plan: No acute exacerbation. Continue home medications. Qualifiers: Heart failure chronicity: chronic Qualified Code(s): I50.32 - Chronic diastolic (congestive) heart failure (6) Goals of care, counseling/discussion Current Visit: Yes Status: Acute Assessment and plan: Appreciate palliative input. (7) Hypertension Current Visit: Yes Status: Chronic Assessment and plan: Continue home medications. Well-controlled. Qualifiers: Hypertension type: essential hypertension Qualified Code(s): I10 - Essential (primary) hypertension - Subjective Interval history: patient reports her shortness of breath is improved, she still has dyspnea on exertion. no chest pain. - Constitutional Vitals: Temp Pulse Resp BP Pulse Ox 98.4 F 100 17 119/69 99 01/20/17 16:05 01/20/17 16:05 01/20/17 16:05 01/20/17 16:05 01/20/17 16:05 General appearance: Present: cooperative, A&O X 3, pleasant, answers questions appropriately - Neck Neck exam general surgery: Present: supple, trachea midline. Absent: lymphadenopathy - Respiratory Respiratory exam: Present: CTAB - Cardiovascular Cardiovascular exam: Present: RRR - GI/Abdominal GI/Abdominal exam: Present: normal bowel sounds, soft. Absent: distended, tenderness - Extremities Exam Extremities exam: Present: pedal edema (1+ LE edema) - Back Exam Back exam: Absent: CVA tenderness (L), CVA tenderness (R) - Neurological Exam Neurological exam: Present: alert, oriented X3, no focal deficits, strengths equal and symetr throughout. Absent: facial droop, speech deficit - Skin Skin exam: Absent: rash Internal Medicine: Result - Labs CBC & Chem 7: 01/20/17 03:50 01/20/17 03:50 Labs: Short CBC 01/20/17 Range/Units 03:50 WBC 10.5 (4.3-11.1) K/mcL Hgb 11.5 (11.5-15.4) g/dL Hct 35.5 (35.3-44.9) % Plt Count 167 (140-400) K/mcL Neutrophils # 9.4 H (1.6-8.9) K/mcL BMP 01/20/17 03:50 Sodium 138 Potassium 4.1 Chloride 103 Carbon Dioxide 29 BUN 45 H D Creatinine 1.37 H Glucose 125 H Calcium 9.2 - ABG Interpretation ABG results: PT/INR, D-dimer PT 44.3 Seconds (9.4-12.1) H* 01/20/17 03:50 - VTE Documentation of Mechanical Device: Graduated compression elastic hosiery Consult Discharge Plan - Plan Referrals: Manuel Andrade CNP [Advanced Practice Nurse] - 02/08/17 4:00 pm Christoph Hughes DO [Primary Care Provider] -
[2017-01-20] MEDS ORDERED: *HR* Warfarin 2.5 MG TABLET PO ONE (18:00)
[2017-01-20] MEDS: Sennosides/Docusate Sodium TABLET PO SCH (20:06)
[2017-01-20] MEDS: Gabapentin 100 MG CAPSULE PO SCH (20:07)
[2017-01-20] MEDS ORDERED: traMADol 50 MG TABLET PO PRN (20:42)
[2017-01-21] MEDS ORDERED: 0.9 % Sodium Chloride 1,000 ML ONE (00:03)
[2017-01-21] MEDS ORDERED: *HR* Digoxin 0.5 MG/2 ML AMPUL IVP ONE (01:49)
[2017-01-21] MEDS: Acetylcysteine 10% 2 ML INHSOL IH SCH ×2 (04:08→07:56)
[2017-01-21] MEDS: Ipratropium/Albuterol Neb 3 ML IH SCH ×6 (04:08→23:52)
[2017-01-21 06:03] LABS: Basophils % 0.1 %; Hematocrit 37.5 % (35.3-44.9); Hemoglobin 11.9 g/dL (11.5-15.4); Immature Granulocytes % 0.7 % (0-4); Lymphocytes # 0.5 K/mcL (0.6-4.6); Mean Corpuscular HGB Conc 31.7 g/dL (31.6-35.5); Mean Corpuscular Hemoglobin 26.6 pg (28.0-33.3); Mean Corpuscular Volume 83.7 fL (83.0-100.0); Mean Platelet Volume 10.5 fL (9.4-12.4); Monocytes # 0.6 K/mcL (0.0-1.3); Monocytes % 5.9 %; Neutrophils # 9.5 K/mcL (1.6-8.9); Platelet Count 176 K/mcL (140-400); Red Blood Count 4.48 M/mcL (3.82-4.97); Red Cell Distribution Width 16.4 % (11.5-14.5); Segmented Neutrophils % 88.3 %
[2017-01-21 06:08] LABS: INR 2.5; Prothrombin Time 27.4 Seconds (9.4-12.1)
[2017-01-21] MEDS: MethylPREDNISolone 40 MG/ML VIAL IVP SCH ×2 (06:13→11:53)
[2017-01-21 06:26] LABS: Calcium 8.9 mg/dL (8.6-10.8); Potassium 3.8 mEq/L (3.5-4.5)
[2017-01-21] MEDS: Budesonide/Formoterol 160/4.5 MDI IH SCH ×2 (07:54→19:49)
[2017-01-21] MEDS: Cholecalciferol (D-3) 1,000 UNIT TABLET PO SCH (08:32)
[2017-01-21] MEDS: Sennosides/Docusate Sodium TABLET PO SCH ×2 (08:33→20:53)
[2017-01-21] MEDS: Metoprolol XL (24 HR) Succ 25 MG TAB.ER.24H PO SCH ×2 (08:33→20:54)
[2017-01-21] MEDS: Diltiazem CD (24hr) 120 MG CAPSULE PO SCH (08:33)
[2017-01-21] MEDS: Furosemide 40 MG TABLET PO SCH ×2 (08:33→20:54)
[2017-01-21] MEDS: Vitamin B Complex/Vit C/Vit E 1 EACH TABLET PO SCH (08:33)
[2017-01-21] MEDS: Roflumilast [Daliresp] 500 MCG PO SCH (08:34)
[2017-01-21] MEDS: Umeclidinium Bromide [Incruse Ellipta] 1 PUFF IH SCH (08:34)
[2017-01-21] MEDS: Bifidobacterium Infantis [Align] 4 MG PO SCH (08:34)
[2017-01-21] MEDS: Fluticasone Propionate Nasal 50 MCG/SPRAY BOTTLE NS SCH (08:35)
--- NOTE | 2017-01-21 09:50 | Palliative - Consult Note ---
Date of Encounter: 01/21/17 Time of Encounter: 07:40 - Assessment and Plan (1) Dyspnea Current Visit: Yes Status: Acute Qualifiers: Dyspnea type: shortness of breath Qualified Code(s): R06.02 - Shortness of breath (2) COPD exacerbation Current Visit: Yes Status: Acute (3) Goals of care, counseling/discussion Current Visit: Yes Status: Acute (4) Failure of outpatient treatment Current Visit: No Status: Acute (5) Constipation Current Visit: No Status: Chronic Qualifiers: Constipation type: slow transit constipation Qualified Code(s): K59.01 - Slow transit constipation Palliative-CN HPI - Data of Consult Patient: new to practice Requesting Physician: Samantha Everett Primary Care Provider: Christoph Hughes - Consult Narrative Palliative Care/Comfort Measures: Palliative care History of present illness: Ms. Dewitt is a 71 year old female CC: Samantha Everett Shortness of breath Past Med Surg Social Fam HX - Past Medical History Medical history: arthritis, atrial fibrillation, cardiomyopathy, CHF, COPD, fibromyalgia, hypertension, myocardial infarction, osteoporosis, RA, other Psychiatric history: no psych history - Past Surgical History Surgical History: angioplasty/stent, cholecystectomy, coronary bypass (CABG), heart valve replacement, orthopedic, other - Social History Smoking Status: Former smoker Smokeless Tobacco Status: No Alcohol use: none Drug use: none - Family History Father Living Status: Hx Family Cardiac Disorders: Yes (open heart surgery) Hx Family Respiratory Disorders: No Hx Family Cancer: Yes (Liver cancer w/ mets) Hx Family GI Disorders: No Hx Family Genitourinary Disorders: No Hx Family Endocrine Disorder: No Hx Family Musculoskeletal Disorders: No Hx Family Neuromuscular Disorders: No Hx Family Neurologic Disorders: No Hx Family HEENT Disorders: No Hx Family Autoimmune Disorders: No Hx Family Reproductive Disorders: No Hx Family Psychosocial Disorders: No Hx Family Medical Disorders: No Mother Living Status: Hx Family Cardiac Disorders: No Hx Family Respiratory Disorders: Yes Hx Family Cancer: Yes (bone, lung) Hx Family GI Disorders: No Hx Family Genitourinary Disorders: No Hx Family Endocrine Disorder: No Hx Family Musculoskeletal Disorders: No Hx Family Neuromuscular Disorders: No Hx Family Neurologic Disorders: No Hx Family HEENT Disorders: No Hx Family Autoimmune Disorders: No Hx Family Reproductive Disorders: No Hx Family Psychosocial Disorders: No Hx Family Medical Disorders: No Medications and Allergies Albuterol Sulfate [Albuterol Inhaler] 1 - 2 puff IH Q4HR PRN 11/24/15 [History] Allopurinol [Zyloprim 100 MG] 100 mg PO DAILY 11/24/15 [History] Budesonide/Formoterol 160/4.5 [Symbicort 160/4.5] 2 puff IH BIDR 11/24/15 [ History] Calcium Carbonate [Calcium] 500 mg PO BID 11/24/15 [History] Cholecalciferol (D-3) [Vitamin D] 2,000 unit PO DAILY 11/24/15 [History] Fluticasone Propionate Nasal [Flonase] 1 spray NS DAILY 11/24/15 [History] Gabapentin [Neurontin] 200 mg PO HS 11/24/15 [History] Loratadine [Claritin] 10 mg PO DAILY 11/24/15 [History] Metoprolol XL (24 HR) Succ [Toprol Xl] 12.5 mg PO BID 11/24/15 [History] Montelukast [Singulair] 10 mg PO DAILY 11/24/15 [History] Nitroglycerin [Nitrostat] 0.4 mg SL Q5M PRN 11/24/15 [History] Nortriptyline [Pamelor] 10 mg PO HS 11/24/15 [History] Roflumilast [Daliresp] 500 mcg PO DAILY 11/24/15 [History] Vitamin B Complex [B Complex] 1 tab PO DAILY 11/24/15 [History] Umeclidinium [place] [Incruse Ellipta] 1 puff IH DAILY 12/17/15 [History] Atorvastatin [Lipitor] 10 mg PO HS 01/01/16 [History] Docusate Sodium [Dok] 300 mg PO BID 01/01/16 [History] Albuterol Neb [Proventil Neb] 2.5 mg IH Q4HR PRN 08/25/16 [History] Bifidobacterium Infantis [Align] 4 mg PO DAILY 08/25/16 [History] Oxygen 2 l IN CONT #1 each 08/26/16 [Rx] Tramadol HCl 50 - 100 mg PO QID PRN 09/13/16 [History] Esomeprazole Magnesium [Nexium] 40 mg PO DAILY #30 dianne. 10/03/16 [Rx] Furosemide [Lasix] 40 mg PO BID #60 tablet 10/03/16 [Rx] Potassium Chloride [K-Tab ER] 20 meq PO DAILY #30 tablet.er 10/03/16 [Rx] Acetylcysteine [P-Rpuxwg-k-Cysteine] 600 mg PO BID 10/08/16 [History] Diltiazem CD (24hr) [Cardizem CD] 120 mg PO DAILY #30 cap.er.24h 01/12/17 [Rx] Sulfamethoxazole/Trimeth DS [Bactrim Ds] 1 each PO BID #17 tablet 01/12/17 [Rx] predniSONE [PredniSONE] See Taper PO DAILY #18 tablet 01/12/17 [Rx] Warfarin [Coumadin] 2.5 mg PO FR 01/18/17 [History] Warfarin [Coumadin] 5 mg PO [place] 01/18/17 [History] Warfarin [Coumadin] 7.5 mg PO TUTH 01/18/17 [History] Allergies ceftriaxone [From Rocephin] Allergy (Severe, Verified 01/18/17 09:26) Hives ciprofloxacin [From Cipro HC] Allergy (Severe, Verified 01/18/17 09:26) Hives levofloxacin [From Levaquin] Allergy (Severe, Verified 01/18/17 09:26) Hives hydrocortisone [From Cipro HC] Allergy (Intermediate, Verified 01/18/17 09:26) Hives vancomycin Allergy (Mild, Verified 01/18/17 09:26) Rash Spoke with ID from [facility], in 2007 presented with skin rash which was subsequently attributed to either vancomycin, amiodarone, or another medicine as all other causes were ruled out. Important to note this was recorded as a rash and not hives, trouble breathing, etc. Palliative Care-Exam - Constitutional Vitals: Temp Pulse Resp BP Pulse Ox 98.2 F 95 18 108/75 98 01/21/17 07:15 01/21/17 07:15 01/21/17 07:57 01/21/17 07:15 01/21/17 07:57 General appearance: Present: no acute distress Internal Medicine - CN: Reslt - Labs CBC & Chem 7: 01/21/17 05:45 01/21/17 05:45 Labs: Short CBC 01/21/17 Range/Units 05:45 WBC 10.7 (4.3-11.1) K/mcL Hgb 11.9 (11.5-15.4) g/dL Hct 37.5 (35.3-44.9) % Plt Count 176 (140-400) K/mcL Neutrophils # 9.5 H (1.6-8.9) K/mcL BMP 01/21/17 05:45 Sodium 135 L Potassium 3.8 Chloride 100 Carbon Dioxide 33 H BUN 44 H Creatinine 1.18 H Glucose 158 H Calcium 8.9 - ABG Interpretation ABG results: PT/INR, D-dimer PT 27.4 Seconds (9.4-12.1) H 01/21/17 05:45 Consult Discharge Plan - Plan Referrals: Manuel Andrade, VANESSA [Advanced Practice Nurse] - 02/08/17 4:00 pm Christoph Hughes DO [Primary Care Provider] - Palliative Quality Palliative Quality: Screen for Code Status: Yes, Screen for Goals of Care: Yes, Screen for Pain: Yes, If Pain Regimen Started, Initiate Bowel Regimen: Yes, Screen for Nausea/Vomitting: Yes
--- NOTE | 2017-01-21 09:52 | Palliative Progress Note ---
Date of Encounter: 01/21/17 Time of Encounter: 07:40 - Assessment and plan (1) Dyspnea Current Visit: Yes Status: Acute Assessment and plan: Doing better this morning, last night he did have problems with atrial fibrillation and was short of breath during that period of time but this has resolved with current medications. Qualifiers: Dyspnea type: shortness of breath Qualified Code(s): R06.02 - Shortness of breath (2) COPD exacerbation Current Visit: Yes Status: Acute Assessment and plan: This seems to be resolving slowly, plan per hospitalist team and pulmonary (3) Goals of care, counseling/discussion Current Visit: Yes Status: Acute Assessment and plan: Patient is a full code, she is discussing this actively with her family, however at this time it will remain full code. Her goal of care is to return home. (4) Failure of outpatient treatment Current Visit: No Status: Acute Assessment and plan: Per the patient and also looking at pulmonary notes this may have been due to adequate steroid taper. She believes that this has been part of the problem with her being hospitalized so many times thus far this year. He did share with her that pulmonary does not feel that she has any infection at this time. (5) Constipation Current Visit: No Status: Chronic Assessment and plan: No BM recorded, patient is on a bowel regimen we will continue to watch. Qualifiers: Constipation type: slow transit constipation Qualified Code(s): K59.01 - Slow transit constipation - Time Spent With Patient Total time spent is greater than 50% in coordination of care (as documented) at patient's floor/unit and/or counseling patient: - Subjective Interval history: She reports having had a bad night due to atrial fibrillation, however this morning she is breathing much better. He also does not feel her heart thumping out of her chest this morning. - Constitutional Vitals: Abnormal lab results MCH 26.6 pg (28.0-33.3) L 01/21/17 05:45 RDW 16.4 % (11.5-14.5) H 01/21/17 05:45 Neutrophils # 9.5 K/mcL (1.6-8.9) H 01/21/17 05:45 Lymphocytes # 0.5 K/mcL (0.6-4.6) L 01/21/17 05:45 PT 27.4 Seconds (9.4-12.1) H 01/21/17 05:45 Sodium 135 mEq/L (136-145) L 01/21/17 05:45 Carbon Dioxide 33 mEq/L (19-29) H 01/21/17 05:45 BUN 44 mg/dL (7-20) H 01/21/17 05:45 Creatinine 1.18 mg/dL (0.57-1.11) H 01/21/17 05:45 Est GFR ( Amer) 55 (> 60) L 01/21/17 05:45 Est GFR (Non-Af Amer) 45 (> 60) L 01/21/17 05:45 BUN/Creatinine Ratio 37 (6-26) H 01/21/17 05:45 Glucose 158 mg/dL (70-99) H 01/21/17 05:45 B-Natriuretic Peptide 214 pg/mL (0-100) H 01/18/17 09:42 General appearance: Present: no acute distress - Head Head exam: Present: atraumatic, normal inspection - Eye Eye exam: Present: normal appearance - ENT ENT exam: Present: mucous membranes moist - Neck Neck exam: Present: normal inspection - Respiratory Respiratory exam: Present: decreased breath sounds - Cardiovascular Cardiovascular exam: Present: irregular rhythm (Rate is well-controlled) - GI/Abdominal GI/Abdominal exam: Present: normal bowel sounds, soft. Absent: tenderness - Extremities Exam Extremities exam: Present: normal inspection. Absent: pedal edema, tenderness - Neurological Exam Neurological exam: Present: alert, oriented X3 - Psychiatric Psychiatric exam: Absent: agitated, anxious - Skin Skin exam: Present: dry, warm Palliative Quality Palliative Quality: Screen for Code Status: Yes, Screen for Goals of Care: Yes, Screen for Pain: Yes, If Pain Regimen Started, Initiate Bowel Regimen: Yes, Screen for Nausea/Vomitting: Yes - Labs CBC & Chem 7: 01/21/17 05:45 01/21/17 05:45 Labs: Laboratory Results - last 24 hr 01/21/17 01/21/17 01/21/17 05:45 05:45 05:45 WBC 10.7 RBC 4.48 Hgb 11.9 Hct 37.5 MCV 83.7 MCH 26.6 L MCHC 31.7 RDW 16.4 H Plt Count 176 MPV 10.5 Immature Gran % 0.7 Seg Neutrophils % 88.3 Lymphocytes % 5.0 Monocytes % 5.9 Eosinophils % 0.0 Basophils % 0.1 Neutrophils # 9.5 H Lymphocytes # 0.5 L Monocytes # 0.6 Eosinophils # 0.0 Basophils # 0.0 PT 27.4 H INR 2.5 Sodium 135 L Potassium 3.8 Chloride 100 Carbon Dioxide 33 H BUN 44 H Creatinine 1.18 H Est GFR ( Amer) 55 L Est GFR (Non-Af Amer) 45 L BUN/Creatinine Ratio 37 H Glucose 158 H Calculated Osmolality 294 Calcium 8.9 Magnesium 2.0 - ABG Interpretation ABG results: PT/INR, D-dimer PT 27.4 Seconds (9.4-12.1) H 01/21/17 05:45 Consult Discharge Plan - Plan Referrals: Manuel Andrade CNP [Advanced Practice Nurse] - 02/08/17 4:00 pm Christoph Hughes DO [Primary Care Provider] -
--- NOTE | 2017-01-21 10:40 | Cardiology Consult Note ---
Date of Encounter: 01/21/17 Time of Encounter: 09:30 Assessment and Plan (1) Acute exacerbation of chronic obstructive pulmonary disease (COPD) Current Visit: No Status: Acute Per cardiology: -ADmitted for acute exacerbation of COPD. -ON nebulizers and steroids. -Seen by pulmonary. -Has long standing history of pulmonary issues. -Management per primary and pulmonary services. (2) Paroxysmal a-fib Current Visit: No Status: Chronic Per cardiology: -Known PAF. -Had episode last night of atrial fibrillation with RVR. Was started on cardizem drip briefly and given one time IV dose of digoxin per primary service. -Currently on cardizem CD 120mg and toprol 12.5mg BID. -AVerage HR overnight noted to be 118. -AT time of assessment, patient's HR 90-100s sinus rhythm. -Chads 2 vasc score 5 (age, HTN, CHF, gender, and vascular disease). ON coumadin. INR supratherpeutic yesterday. Today, INR 2.5. -Denies bleeding or blood loss. -Will increase cardizem to 180mg daily. -Will continue to monitor HR and BP. (3) H/O mitral valve replacement with mechanical valve Current Visit: Yes Status: Chronic Per cardiology: -Known mitral disease with mitral valve replacement 2007 at [facility]. -Last echo 09/30/16 with mechanical mitral valve with normal function. (4) CAD (coronary artery disease) Current Visit: Yes Status: Acute Per cardiology: -Known CAD with CABG x3 2007 at [facility]. -Denies chest pain. -Echo 09/2016 with LVEF 65-70%, mild diastolic dysfunction, severely dilated left atrium, mechanical mitral valve with normal function, all wall segments with normal motion. -Nuclear stress 2013 negative for ischemia or infarct. -ECG with no ischemic changes. -Troponins negative x3. -On statin, beta halle. Patient refuses to take asa due to hematoma that occurred while on asa. -Will continue to monitor. Qualifiers: Coronary Disease-Associated Artery/Lesion type: [place] artery [place] vs. transplanted heart: [place] heart Associated angina: without angina Qualified Code(s): I25.10 - Atherosclerotic heart disease of [place] coronary artery without angina pectoris Discussion w patient/family: The assessment and plan as outlined above was discussed with the patient who expressed understanding and agreement. All questions were answered. Thank you for involving us in the care of your patient. Please call with any questions. Discussed and reviewed with . History of Present Illness Consult date: 01/21/17 Requesting physician: Adelso Obrien Consult reason: [email or web address] RVR Chief complaint: shortness of breath History of present illness: Ms. Dewitt is a 71 year old female with a relevant past medical history of COPD, emphysema, HTN, pulmonary hypertension, CHF, [place], CAD with CABG x3, mitral valve stenosis with replacement, atrial fibrillation, hematoma to right side. Patient has long standing history of pulmonary issues and wears home O2 at all times. Patient states she was at home and could not catch her breath. She presented to [facility] and was subsequently admitted for COPD exacerbation. Cardiology has been consulted for atrial fibrillation with RVR. Per review of records, patient was briefly on cardizem drip and was given one dose of IV digoxin. At time of assessment, patient's HRs 90-100s Sinus rhythm. Patient denies palpitations/ fluttering. Patient denies chest pain. Patient is on coumadin for atrial fibrillation and denies bleeding or blood loss. Past Med Surg Social Fam HX - Past Medical History Attestation: Yes The following information was validated with the patient. Source: patient, old records reviewed Medical history: arthritis, atrial fibrillation, cardiomyopathy, CHF, COPD, fibromyalgia, hypertension, myocardial infarction, osteoporosis, RA, other Psychiatric history: no psych history - Past Surgical History Surgical History: angioplasty/stent, cholecystectomy, coronary bypass (CABG), heart valve replacement, orthopedic, other - Social History Smoking Status: Former smoker Smokeless Tobacco Status: No Alcohol use: none Drug use: none - Family History Father Living Status: Hx Family Cardiac Disorders: Yes (open heart surgery) Hx Family Respiratory Disorders: No Hx Family Cancer: Yes (Liver cancer w/ mets) Hx Family GI Disorders: No Hx Family Genitourinary Disorders: No Hx Family Endocrine Disorder: No Hx Family Musculoskeletal Disorders: No Hx Family Neuromuscular Disorders: No Hx Family Neurologic Disorders: No Hx Family HEENT Disorders: No Hx Family Autoimmune Disorders: No Hx Family Reproductive Disorders: No Hx Family Psychosocial Disorders: No Hx Family Medical Disorders: No Mother Living Status: Hx Family Cardiac Disorders: No Hx Family Respiratory Disorders: Yes Hx Family Cancer: Yes (bone, lung) Hx Family GI Disorders: No Hx Family Genitourinary Disorders: No Hx Family Endocrine Disorder: No Hx Family Musculoskeletal Disorders: No Hx Family Neuromuscular Disorders: No Hx Family Neurologic Disorders: No Hx Family HEENT Disorders: No Hx Family Autoimmune Disorders: No Hx Family Reproductive Disorders: No Hx Family Psychosocial Disorders: No Hx Family Medical Disorders: No Medications and Allergies Albuterol Sulfate [Albuterol Inhaler] 1 - 2 puff IH Q4HR PRN 11/24/15 [History] Allopurinol [Zyloprim 100 MG] 100 mg PO DAILY 11/24/15 [History] Budesonide/Formoterol 160/4.5 [Symbicort 160/4.5] 2 puff IH BIDR 11/24/15 [ History] Calcium Carbonate [Calcium] 500 mg PO BID 11/24/15 [History] Cholecalciferol (D-3) [Vitamin D] 2,000 unit PO DAILY 11/24/15 [History] Fluticasone Propionate Nasal [Flonase] 1 spray NS DAILY 11/24/15 [History] Gabapentin [Neurontin] 200 mg PO HS 11/24/15 [History] Loratadine [Claritin] 10 mg PO DAILY 11/24/15 [History] Metoprolol XL (24 HR) Succ [Toprol Xl] 12.5 mg PO BID 11/24/15 [History] Montelukast [Singulair] 10 mg PO DAILY 11/24/15 [History] Nitroglycerin [Nitrostat] 0.4 mg SL Q5M PRN 11/24/15 [History] Nortriptyline [Pamelor] 10 mg PO HS 11/24/15 [History] Roflumilast [Daliresp] 500 mcg PO DAILY 11/24/15 [History] Vitamin B Complex [B Complex] 1 tab PO DAILY 11/24/15 [History] Umeclidinium [place] [Incruse Ellipta] 1 puff IH DAILY 12/17/15 [History] Atorvastatin [Lipitor] 10 mg PO HS 01/01/16 [History] Docusate Sodium [Dok] 300 mg PO BID 01/01/16 [History] Albuterol Neb [Proventil Neb] 2.5 mg IH Q4HR PRN 08/25/16 [History] Bifidobacterium Infantis [Align] 4 mg PO DAILY 08/25/16 [History] Oxygen 2 l IN CONT #1 each 08/26/16 [Rx] Tramadol HCl 50 - 100 mg PO QID PRN 09/13/16 [History] Esomeprazole Magnesium [Nexium] 40 mg PO DAILY #30 capsule. 10/03/16 [Rx] Furosemide [Lasix] 40 mg PO BID #60 tablet 10/03/16 [Rx] Potassium Chloride [K-Tab ER] 20 meq PO DAILY #30 tablet.er 10/03/16 [Rx] Acetylcysteine [B-Nrhkgg-r-Cysteine] 600 mg PO BID 10/08/16 [History] Diltiazem CD (24hr) [Cardizem CD] 120 mg PO DAILY #30 cap.er.24h 01/12/17 [Rx] Sulfamethoxazole/Trimeth DS [Bactrim Ds] 1 each PO BID #17 tablet 01/12/17 [Rx] predniSONE [PredniSONE] See Taper PO DAILY #18 tablet 01/12/17 [Rx] Warfarin [Coumadin] 2.5 mg PO FR 01/18/17 [History] Warfarin [Coumadin] 5 mg PO [place] 01/18/17 [History] Warfarin [Coumadin] 7.5 mg PO TUTH 01/18/17 [History] Allergies ceftriaxone [From Rocephin] Allergy (Severe, Verified 01/18/17 09:26) Hives ciprofloxacin [From Cipro HC] Allergy (Severe, Verified 01/18/17 09:26) Hives levofloxacin [From Levaquin] Allergy (Severe, Verified 01/18/17 09:26) Hives hydrocortisone [From Cipro HC] Allergy (Intermediate, Verified 01/18/17 09:26) Hives vancomycin Allergy (Mild, Verified 01/18/17 09:26) Rash Spoke with ID from [facility], in 2007 presented with skin rash which was subsequently attributed to either vancomycin, amiodarone, or another medicine as all other causes were ruled out. Important to note this was recorded as a rash and not hives, trouble breathing, etc. All Systems Review: A 10-system review of systems was performed and is negative for pertinent findings except as documented above in the HPI. - Cardiovascular Cardiovascular: as per HPI, dyspnea on exertion Physical Examination Vital Signs, Last 4 Hours Temp Pulse Resp BP Pulse Ox 01/21/17 07:57 18 98 01/21/17 07:15 98.2 F 95 18 108/75 96 General: Conversant, No Apparent Distress HEENT: Atraumatic, Normocephaly, Mucus Membranes Moist Neck: No JVD, Normal carotid pulses Cardiac: Reg Rate and Rhythm, Normal S1 and S2, No Murmur Lungs: Other (Expiratory wheezes noted throughout. ) Neuro: Alert and responsive, No focal deficits noted Abdomen: Soft, Non-Tender Skin: No rashes noted on visualized skin Musculoskeletal: No Chest Wall Tenderness Extremities: No Clubbing, No Cyanosis, No Edema, Normal Pulses Results 01/21/17 05:45 01/21/17 05:45 Lab Results Active Medications Acetaminophen (Tylenol) 650 mg PO Q6HR PRN PRN Reason: Mild Pain (1-3) Stop: 07/20/17 12:18 Last Admin: 01/20/17 21:04 Dose: 650 mg Acetylcysteine (Acetylcysteine 10%) 2 ml IH [id number] [facility] Stop: 07/20/17 16:01 Last Admin: 01/21/17 07:56 Dose: 2 ml Albuterol Sulfate (Proventil Neb) 2.5 mg IH Q2H PRN PRN Reason: Shortness Of Breath/Wheezing Stop: 07/20/17 12:20 Albuterol/Ipratropium (Duoneb) 3 ml IH [id number] [facility] Stop: 07/20/17 16:01 Last Admin: 01/21/17 07:54 Dose: 3 ml Allopurinol (Zyloprim) 100 mg PO DAILY [facility] Stop: 07/21/17 09:01 Last Admin: 01/21/17 08:33 Dose: 100 mg Atorvastatin Calcium (Lipitor) 10 mg PO HS [facility] Stop: 07/20/17 21:01 Last Admin: 01/20/17 20:06 Dose: 10 mg Budesonide/Formoterol Fumarate (Symbicort) 2 puff IH BIDR [facility] PRN Reason: Protocol Stop: 07/20/17 22:01 Last Admin: 01/21/17 07:54 Dose: 2 puff Calcium Carbonate (Tums) 500 mg PO BID [facility] Stop: 07/20/17 21:01 Last Admin: 01/21/17 08:32 Dose: 500 mg Diltiazem HCl (Cardizem Cd) 120 mg PO DAILY [facility] Stop: 07/21/17 09:01 Last Admin: 01/21/17 08:33 Dose: 120 mg Docusate Sodium (Colace) 300 mg PO BID [facility] PRN Reason: Protocol Stop: 07/20/17 21:01 Last Admin: 01/21/17 08:32 Dose: 300 mg Fluticasone Propionate (Flonase) 50 mcg NS DAILY [facility] PRN Reason: Protocol Stop: 07/21/17 09:01 Last Admin: 01/21/17 08:35 Dose: 50 mcg Furosemide (Lasix) 40 mg PO BID [facility] Stop: 07/20/17 21:01 Last Admin: 01/21/17 08:33 Dose: 40 mg Gabapentin (Neurontin) 200 mg PO HS [facility] Stop: 07/20/17 21:01 Last Admin: 01/20/17 20:07 Dose: 200 mg Diltiazem HCl 125 mg/ Dextrose 125 mls @ 5 mls/hr IVC .Q24H CAYLA; 5 MG/HR PRN Reason: Protocol Stop: 07/22/17 23:16 Last Titration: 01/21/17 05:23 Dose: 0 mg/hr, 0 mls/hr Methylprednisolone (Solu-Medrol) 40 mg IVP Q6HR [facility] Stop: 07/20/17 18:01 Last Admin: 01/21/17 06:13 Dose: 40 mg Metoprolol Succinate (Toprol Xl) 12.5 mg PO BID [facility] Stop: 07/20/17 21:01 Last Admin: 01/21/17 08:33 Dose: 12.5 mg Naloxone HCl (Narcan) 0.4 mg IVP Q2MIN PRN PRN Reason: Opioid Reversal Stop: 07/20/17 12:18 Nitroglycerin (Nitroglycerin) 0.4 mg SL Q5M PRN PRN Reason: Chest Pain Stop: 07/20/17 15:03 Nortriptyline HCl (Pamelor) 10 mg PO HS [facility] Stop: 07/20/17 21:01 Last Admin: 01/20/17 20:07 Dose: 10 mg Omeprazole (Prilosec) 40 mg PO DAILY [facility] PRN Reason: Protocol Stop: 07/21/17 09:01 Last Admin: 01/21/17 08:32 Dose: 40 mg Ondansetron HCl (Zofran) 4 mg IVP Q8HR PRN PRN Reason: Nausea And Vomiting Stop: 07/20/17 12:18 Pharmacy Profile Note (Patient Taking Own Medication) 4 each PO DAILY [facility] Stop: 07/21/17 09:01 Last Admin: 01/21/17 08:34 Dose: Not Given Pharmacy Profile Note (Patient Taking Own Medication) 500 each PO DAILY [facility] Stop: 07/21/17 09:01 Last Admin: 01/21/17 08:34 Dose: Not Given Pharmacy Profile Note (Patient Taking Own Medication) 1 each IH DAILY [facility] Stop: 07/21/17 09:01 Last Admin: 01/21/17 08:34 Dose: Not Given Potassium Chloride (Potassium Chloride) 20 meq PO DAILY [facility] Stop: 07/21/17 09:01 Last Admin: 01/21/17 08:33 Dose: 20 meq Senna/Docusate Sodium (Senna Plus) 2 each PO BID [facility] PRN Reason: Protocol Stop: 07/22/17 21:01 Last Admin: 01/21/17 08:33 Dose: 2 each Tramadol HCl (Ultram) 50 mg PO QID PRN PRN Reason: Pain Stop: 07/22/17 20:43 Vitamin B Complex/Vit C/Vit E (Stresstab) 1 each PO DAILY [facility] Stop: 07/21/17 09:01 Last Admin: 01/21/17 08:33 Dose: 1 each Vitamin D (Vitamin D) 2,000 unit PO DAILY [facility] Stop: 07/21/17 09:01 Last Admin: 01/21/17 08:32 Dose: 2,000 unit Warfarin Sodium (Coumadin Perpt) 1 each PO DAILY@1800 PRN PRN Reason: SEE COMMENTS Stop: 07/20/17 18:01 Warfarin Sodium (Coumadin) 7.5 mg PO 1800 ONE Stop: 01/21/17 15:01 Laboratory Tests 01/18/17 01/18/17 01/18/17 09:42 15:00 23:00 Hgb INR Potassium Creatinine Magnesium Troponin I 0.02 0.01 0.01 01/21/17 01/21/17 01/21/17 05:45 05:45 05:45 Hgb 11.9 INR 2.5 Potassium 3.8 Creatinine 1.18 H Magnesium 2.0 Troponin I - Imaging and Cardiology Chest Xray: report reviewed Echo: report reviewed - EKG Interpretation EKG results cardiology: personally reviewed (ECG with atrial fibrillation with RVR, HR 165.), other (Telemetry reviewed with average HR previous 12 hours noted to be 118. Intermittent atrial fibrillation and sinus rhythm. PVCs noted.) Consult Discharge Plan - Plan Referrals: Manuel Andrade, VANESSA [Advanced Practice Nurse] - 02/08/17 4:00 pm Christoph Hughes DO [Primary Care Provider] -
[2017-01-21] MEDS ORDERED: *HR* Warfarin 7.5 MG TABLET PO ONE ×2 (15:00→18:00)
[2017-01-21] MEDS: Acetaminophen 325 MG TABLET PO PRN (15:04)
--- NOTE | 2017-01-21 15:16 | Electrocardiograph Report ---
[place] [id number] Test Date: 2017-01-20 Pat Name: Yasmeen Dewitt Department: 113 Room: 3B22 Gender: F Ssis Developer: EDILBERTO : 1945 Requested By: Samantha Everett Order Number: [id number] Reading MD: Greg Cadet MD Measurements Intervals [place] Rate: 165 P: LA: 0 QRS: 50 QRSD: 80 T: 65 QT: 261 QTc: 352 Interpretive Statements ATRIAL FIBRILLATION WITH RAPID VENTRICULAR RESPONSE Electronically Signed On 01-21-2017 15:14:45 EDT by Greg Cadet MD
--- NOTE | 2017-01-21 18:26 | Internal Med Progress Note ---
Date of Encounter: 01/21/17 Time of Encounter: 18:00 - Assessment and plan (1) Atrial fibrillation with RVR Current Visit: Yes Status: Acute Assessment and plan: Overnight heart rate went up to 150s. She was started on Cardizem drip. After she had cardiology input. Diltiazem increased to 180 mg daily. 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 (2) Acute on chronic respiratory failure with hypoxemia Current Visit: Yes Status: Acute Assessment and plan: Secondary to acute exacerbation of COPD, Patient presented with a chief complaint of progressive shortness of breath. She is known to have advanced emphysema, interstitial fibrotic lung disease, bronchiectasis and bronchiolitis. She is oxygen dependent on 2 L nasal cannula. Patient recently underwent bronchoscopy and atrial stenotrophomonas that could be colonization. Chest x-ray shows ill defined area spaces disease over the right lung base, unchanged atelectasis of the left lower lobe, advanced emphysema. Appreciate pulmonology input. Continue nebulizations, glucocorticosteroids, and Mucinex. No need for antibiotics. Continue slowly improving. (3) COPD exacerbation Current Visit: Yes Status: Acute Assessment and plan: Plan as above. (4) CKD (chronic kidney disease) stage 3, GFR 30-59 ml/min Current Visit: No Status: Chronic Assessment and plan: At baseline. Avoid nephrotoxic agents as possible. (5) Diastolic heart failure Current Visit: Yes Status: Chronic Assessment and plan: No acute exacerbation. Continue home medications. Qualifiers: Heart failure chronicity: chronic Qualified Code(s): I50.32 - Chronic diastolic (congestive) heart failure (6) Goals of care, counseling/discussion Current Visit: Yes Status: Acute Assessment and plan: Appreciate palliative input. (7) Hypertension Current Visit: Yes Status: Chronic Assessment and plan: Continue home medications. Well-controlled. Qualifiers: Hypertension type: essential hypertension Qualified Code(s): I10 - Essential (primary) hypertension - Subjective Interval history: patient went into afib with rvr overnight and was started on cardizem drip. - Constitutional Vitals: Temp Pulse Resp BP Pulse Ox 98.2 F 90 20 104/66 99 01/21/17 15:18 01/21/17 15:18 01/21/17 15:51 01/21/17 15:18 01/21/17 15:51 General appearance: Present: cooperative, A&O X 3, pleasant, answers questions appropriately - Neck Neck exam general surgery: Present: supple, trachea midline. Absent: lymphadenopathy - Respiratory Respiratory exam: Present: decreased breath sounds, wheezes - Cardiovascular Cardiovascular exam: Present: irregular rhythm, tachycardia - GI/Abdominal GI/Abdominal exam: Present: normal bowel sounds, soft. Absent: distended, tenderness - Back Exam Back exam: Absent: CVA tenderness (L), CVA tenderness (R) - Neurological Exam Neurological exam: Present: alert, oriented X3, no focal deficits, strengths equal and symetr throughout. Absent: facial droop, speech deficit - Skin Skin exam: Absent: rash Internal Medicine: Result - Labs CBC & Chem 7: 01/21/17 05:45 01/21/17 05:45 Labs: Short CBC 01/21/17 Range/Units 05:45 WBC 10.7 (4.3-11.1) K/mcL Hgb 11.9 (11.5-15.4) g/dL Hct 37.5 (35.3-44.9) % Plt Count 176 (140-400) K/mcL Neutrophils # 9.5 H (1.6-8.9) K/mcL BMP 01/21/17 05:45 Sodium 135 L Potassium 3.8 Chloride 100 Carbon Dioxide 33 H BUN 44 H Creatinine 1.18 H Glucose 158 H Calcium 8.9 - ABG Interpretation ABG results: PT/INR, D-dimer PT 27.4 Seconds (9.4-12.1) H 01/21/17 05:45 - VTE Documentation of Mechanical Device: Graduated compression elastic hosiery Consult Discharge Plan - Plan Referrals: Manuel Andrade CNP [Advanced Practice Nurse] - 02/08/17 4:00 pm Christoph Hughes DO [Primary Care Provider] -
[2017-01-21] MEDS: Gabapentin 100 MG CAPSULE PO SCH (20:54)
[2017-01-22] MEDS: Ipratropium/Albuterol Neb 3 ML IH SCH ×3 (03:48→11:17)
[2017-01-22 05:03] LABS: Basophils % 0.1 %; Hematocrit 38.5 % (35.3-44.9); Hemoglobin 12.2 g/dL (11.5-15.4); Immature Granulocytes % 0.7 % (0-4); Lymphocytes # 1.6 K/mcL (0.6-4.6); Lymphocytes % 11.8 %; Mean Corpuscular HGB Conc 31.7 g/dL (31.6-35.5); Mean Corpuscular Hemoglobin 26.8 pg (28.0-33.3); Mean Corpuscular Volume 84.4 fL (83.0-100.0); Mean Platelet Volume 10.4 fL (9.4-12.4); Monocytes # 1.2 K/mcL (0.0-1.3); Monocytes % 8.8 %; Neutrophils # 10.5 K/mcL (1.6-8.9); Platelet Count 173 K/mcL (140-400); Red Blood Count 4.56 M/mcL (3.82-4.97); Red Cell Distribution Width 16.3 % (11.5-14.5); Segmented Neutrophils % 78.6 %
[2017-01-22 05:12] LABS: INR 1.6; Prothrombin Time 17.1 Seconds (9.4-12.1)
[2017-01-22 05:16] LABS: Calcium 9.2 mg/dL (8.6-10.8); Magnesium 1.9 mg/dL (1.6-2.6); Potassium 3.4 mEq/L (3.5-4.5)
[2017-01-22] MEDS: Budesonide/Formoterol 160/4.5 MDI IH SCH (07:27)
[2017-01-22 07:41] VITALS: BP 104/70
[2017-01-22] MEDS: Sennosides/Docusate Sodium TABLET PO SCH (08:26)
[2017-01-22] MEDS: Cholecalciferol (D-3) 1,000 UNIT TABLET PO SCH (08:26)
[2017-01-22] MEDS: Metoprolol XL (24 HR) Succ 25 MG TAB.ER.24H PO SCH (08:26)
[2017-01-22] MEDS: Furosemide 40 MG TABLET PO SCH (08:27)
[2017-01-22] MEDS: Vitamin B Complex/Vit C/Vit E 1 EACH TABLET PO SCH (08:27)
[2017-01-22] MEDS: Fluticasone Propionate Nasal 50 MCG/SPRAY BOTTLE NS SCH (08:28)
[2017-01-22] MEDS ORDERED: Diltiazem CD (24hr) 180 MG CAPSULE PO SCH (09:00)
--- NOTE | 2017-01-22 09:12 | Palliative Progress Note ---
Date of Encounter: 01/22/17 Time of Encounter: 07:45 - Assessment and plan (1) Dyspnea Current Visit: Yes Status: Acute Assessment and plan: Doing better this morning, no further problems with A. fib with rapid ventricular response.. Qualifiers: Dyspnea type: shortness of breath Qualified Code(s): R06.02 - Shortness of breath (2) COPD exacerbation Current Visit: Yes Status: Acute Assessment and plan: This seems to be resolving slowly, plan per hospitalist team and pulmonary (3) Goals of care, counseling/discussion Current Visit: Yes Status: Acute Assessment and plan: Patient is a full code, she is discussing this actively with her family, however at this time it will remain full code. Her goal of care is to return home. She has started the discussion with the family, however she has made no changes thus far, has no questions at this time she does have all the forms. She has had full discussions on all of this. I believe she will probably be discharged soon, palliative, will follow from a distance at this point. (4) Failure of outpatient treatment Current Visit: No Status: Acute Assessment and plan: Per the patient and also looking at pulmonary notes this may have been due to adequate steroid taper. She believes that this has been part of the problem with her being hospitalized so many times thus far this year. sHe did share with her that pulmonary does not feel that she has any infection at this time. (5) Constipation Current Visit: No Status: Chronic Assessment and plan: No BM recorded, patient is on a bowel regimen she is having small amounts of stool has not been recorded. We will continue to follow. Qualifiers: Constipation type: slow transit constipation Qualified Code(s): K59.01 - Slow transit constipation - Time Spent With Patient Total time spent is greater than 50% in coordination of care (as documented) at patient's floor/unit and/or counseling patient: - Subjective Interval history: She reports having had a a good night, no further problems with A. fib. Breathing is the somewhat better. No complaints of this morning she had no questions regarding her aunts directives.. - Constitutional Vitals: Abnormal lab results WBC 13.3 K/mcL (4.3-11.1) H 01/22/17 04:45 MCH 26.8 pg (28.0-33.3) L 01/22/17 04:45 RDW 16.3 % (11.5-14.5) H 01/22/17 04:45 Neutrophils # 10.5 K/mcL (1.6-8.9) H 01/22/17 04:45 PT 17.1 Seconds (9.4-12.1) H 01/22/17 04:45 Potassium 3.4 mEq/L (3.5-4.5) L 01/22/17 04:45 Carbon Dioxide 31 mEq/L (19-29) H 01/22/17 04:45 BUN 42 mg/dL (7-20) H 01/22/17 04:45 Est GFR (Non-Af Amer) 49 (> 60) L 01/22/17 04:45 BUN/Creatinine Ratio 38 (6-26) H 01/22/17 04:45 B-Natriuretic Peptide 214 pg/mL (0-100) H 01/18/17 09:42 General appearance: Present: no acute distress - Head Head exam: Present: atraumatic, normal inspection - Eye Eye exam: Present: normal appearance - ENT ENT exam: Present: mucous membranes moist - Neck Neck exam: Present: normal inspection - Respiratory Respiratory exam: Present: decreased breath sounds, wheezes - Cardiovascular Cardiovascular exam: Present: irregular rhythm (The rate is very well controlled and it is nearly regular.) - GI/Abdominal GI/Abdominal exam: Present: normal bowel sounds, soft. Absent: tenderness - Extremities Exam Extremities exam: Present: normal inspection. Absent: tenderness - Neurological Exam Neurological exam: Present: alert, oriented X3 - Psychiatric Psychiatric exam: Absent: agitated, anxious - Skin Skin exam: Present: dry, warm Palliative Quality Palliative Quality: Screen for Code Status: Yes, Screen for Goals of Care: Yes, Screen for Pain: Yes, If Pain Regimen Started, Initiate Bowel Regimen: Yes, Screen for Nausea/Vomitting: Yes - Labs CBC & Chem 7: 01/22/17 04:45 01/22/17 04:45 Labs: Laboratory Results - last 24 hr 01/22/17 01/22/17 01/22/17 04:45 04:45 04:45 WBC 13.3 H RBC 4.56 Hgb 12.2 Hct 38.5 MCV 84.4 MCH 26.8 L MCHC 31.7 RDW 16.3 H Plt Count 173 MPV 10.4 Immature Gran % 0.7 Seg Neutrophils % 78.6 Lymphocytes % 11.8 Monocytes % 8.8 Eosinophils % 0.0 Basophils % 0.1 Neutrophils # 10.5 H Lymphocytes # 1.6 Monocytes # 1.2 Eosinophils # 0.0 Basophils # 0.0 PT 17.1 H INR 1.6 Sodium 140 Potassium 3.4 L Chloride 102 Carbon Dioxide 31 H BUN 42 H Creatinine 1.10 Est GFR ( Amer) 60 Est GFR (Non-Af Amer) 49 L BUN/Creatinine Ratio 38 H Glucose 94 Calculated Osmolality 300 Calcium 9.2 Magnesium 1.9 - ABG Interpretation ABG results: PT/INR, D-dimer PT 17.1 Seconds (9.4-12.1) H 01/22/17 04:45 Consult Discharge Plan - Plan Referrals: Manuel Andrade CNP [Advanced Practice Nurse] - 02/08/17 4:00 pm Christoph Hughes DO [Primary Care Provider] -
[2017-01-22] MEDS ORDERED: predniSONE 20 MG TABLET PO ONE (09:30)
--- NOTE | 2017-01-22 10:10 | Discharge Summary ---
Date of Encounter: 01/23/17 Time of Encounter: 10:08 - Discharge Diagnosis (1) Atrial fibrillation with RVR Priority: Primary Status: Acute (2) Acute on chronic respiratory failure with hypoxemia Priority: Primary Status: Acute (3) COPD exacerbation Priority: Primary Status: Acute (4) CKD (chronic kidney disease) stage 3, GFR 30-59 ml/min Priority: Secondary Status: Chronic (5) Diastolic heart failure Priority: Secondary Status: Chronic Qualifiers: Heart failure chronicity: chronic Qualified Code(s): I50.32 - Chronic diastolic (congestive) heart failure (6) Goals of care, counseling/discussion Priority: Primary Status: Acute (7) Hypertension Priority: Secondary Status: Chronic Qualifiers: Hypertension type: essential hypertension Qualified Code(s): I10 - Essential (primary) hypertension - Discharge Medications Prescriptions: Diltiazem CD (24hr) [Cardizem CD] 180 mg PO DAILY #30 predniSONE [PredniSONE] 40 mg PO AD #21 tablet Home Medications: Albuterol Sulfate [Albuterol Inhaler] 1 - 2 puff IH Q4HR PRN 11/24/15 [History] Allopurinol [Zyloprim 100 MG] 100 mg PO DAILY 11/24/15 [History] Budesonide/Formoterol 160/4.5 [Symbicort 160/4.5] 2 puff IH BIDR 11/24/15 [ History] Calcium Carbonate [Calcium] 500 mg PO BID 11/24/15 [History] Cholecalciferol (D-3) [Vitamin D] 2,000 unit PO DAILY 11/24/15 [History] Fluticasone Propionate Nasal [Flonase] 1 spray NS DAILY 11/24/15 [History] Gabapentin [Neurontin] 200 mg PO HS 11/24/15 [History] Loratadine [Claritin] 10 mg PO DAILY 11/24/15 [History] Metoprolol XL (24 HR) Succ [Toprol Xl] 12.5 mg PO BID 11/24/15 [History] Montelukast [Singulair] 10 mg PO DAILY 11/24/15 [History] Nitroglycerin [Nitrostat] 0.4 mg SL Q5M PRN 11/24/15 [History] Nortriptyline [Pamelor] 10 mg PO HS 11/24/15 [History] Roflumilast [Daliresp] 500 mcg PO DAILY 11/24/15 [History] Vitamin B Complex [B Complex] 1 tab PO DAILY 11/24/15 [History] Umeclidinium Parker [Incruse Ellipta] 1 puff IH DAILY 12/17/15 [History] Atorvastatin [Lipitor] 10 mg PO HS 01/01/16 [History] Docusate Sodium [Dok] 300 mg PO BID 01/01/16 [History] Albuterol Neb [Proventil Neb] 2.5 mg IH Q4HR PRN 08/25/16 [History] Bifidobacterium Infantis [Align] 4 mg PO DAILY 08/25/16 [History] Oxygen 2 l IN CONT #1 each 08/26/16 [Rx] Tramadol HCl 50 - 100 mg PO QID PRN 09/13/16 [History] Esomeprazole Magnesium [Nexium] 40 mg PO DAILY #30 capsule. 10/03/16 [Rx] Furosemide [Lasix] 40 mg PO BID #60 tablet 10/03/16 [Rx] Potassium Chloride [K-Tab ER] 20 meq PO DAILY #30 tablet.er 10/03/16 [Rx] Acetylcysteine [E-Xjnpcz-l-Cysteine] 600 mg PO BID 10/08/16 [History] Warfarin [Coumadin] 2.5 mg PO FR 01/18/17 [History] Warfarin [Coumadin] 5 mg PO [place] 01/18/17 [History] Warfarin [Coumadin] 7.5 mg PO TUTH 01/18/17 [History] Diltiazem CD (24hr) [Cardizem CD] 180 mg PO DAILY #30 01/22/17 [Rx] predniSONE [PredniSONE] 40 mg PO AD #21 tablet 01/22/17 [Rx] Allergies/Adverse Reactions: Allergies ceftriaxone [From Rocephin] Allergy (Severe, Verified 01/18/17 09:26) Hives ciprofloxacin [From Cipro HC] Allergy (Severe, Verified 01/18/17 09:26) Hives levofloxacin [From Levaquin] Allergy (Severe, Verified 01/18/17 09:26) Hives hydrocortisone [From Cipro HC] Allergy (Intermediate, Verified 01/18/17 09:26) Hives vancomycin Allergy (Mild, Verified 01/18/17 09:26) Rash Spoke with ID from [facility], in 2007 presented with skin rash which was subsequently attributed to either vancomycin, amiodarone, or another medicine as all other causes were ruled out. Important to note this was recorded as a rash and not hives, trouble breathing, etc. Procedures/tests Complete & Pending: Procedures Performed prior 72 hours Category Date Time Status ECG 12 lead ECG [ECG] Routine Y 01/20/17 22:46 Completed Date of admission: 01/19/17 12:05 Primary care physician: Christoph Hughes Consults: 01/19/17 17:34 Consult to Palliative Care [CONS] Routine Comment: Consulting Provider: Palliative Care Jennifer Reason for Consult: patient has long-term diagnoses. Multipul re-admissions. Call Completed: No 01/21/17 02:57 Consult to Cardiology [CONS] Routine Comment: Consulting Provider: Cardiology Jennifer Reason for Consult: a.fib with RVR Call Completed: No - Patient Status Disposition: Home, Self-Care Condition: Fair Functional capacity at discharge: uses cane/walker Overall status at discharge: patient is progressing back to baseline - Discharge Instructions Instructions: Chronic Obstructive Pulmonary Disease (DC), Chronic Hypertension (DC) Follow Up With: Manuel Andrade CNP [Advanced Practice Nurse] - 02/08/17 4:00 pm Christoph Hughes DO [Primary Care Provider] - 02/03/17 9:45 am - Diet and Activity Activity: resume usual activities as tolerated, wear oxygen at all times (3L NC) Diet: low fat, low cholesterol Interval History: patient feels better. she reports unchanged brownish productive cough. Hospital course: Ms. Dewitt is a 71 year old female with past medical history of advanced COPD/ emphysema, interstitial fibrotic lung disease, bronchiectasis and bronchiolitis uses 2 L of oxygen at home. She recently underwent bronchoscopy and BAL revealed stenotrophomonas that could be colonization. She presented with a chief complaint of progressive shortness of breath and was admitted with acute exacerbation of COPD. Chest x-ray showed unchanged atelectasis and advanced emphysema. She continue nebulization, IV glucocorticoid steroids and Mucinex with no improvement. Her hospital course was complicated by A. fib with RVR that required Cardizem drip and then she was transitioned to an increased dose of Cardizem. Plan: Follow-up in the pulmonology clinic in 1-2 weeks. - Time Spent with Patient Total time spent providing and/or coordinating discharge services: - Constitutional Vitals: Temp Pulse Resp BP Pulse Ox 97.1 F L 100 17 104/70 96 01/22/17 07:35 01/22/17 07:35 01/22/17 07:35 01/22/17 07:35 01/22/17 07:35 General appearance: Present: cooperative, A&O X 3, pleasant, answers questions appropriately - Neck Neck exam general surgery: Present: supple, trachea midline - Respiratory Respiratory exam: Present: decreased breath sounds, wheezes - Cardiovascular Cardiovascular exam: Present: RRR - GI/Abdominal GI/Abdominal exam: Present: soft. Absent: distended, tenderness - Extremities Exam Extremities exam: Absent: pedal edema - Neurological Exam Neurological exam: Present: alert, oriented X3, no focal deficits, strengths equal and symetr throughout. Absent: facial droop, speech deficit - VTE Documentation of Mechanical Device: Graduated compression elastic hosiery
[2017-01-22] MEDS ORDERED: *HR* Warfarin 7.5 MG TABLET PO ONE (18:00)
== END 2017-01-22 12:15 | disposition home or self-care (01) | DRG 190 ==
LOC: 3BNU 09:11 → EMEROO 09:11 → 3BNU 12:15 → SUATTDRO 01-19 12:05
PROVIDERS: ADMIT Internal Medicine; ATTEND Internal Medicine

== ENCOUNTER 2017-02-01 15:35 | Inpatient (IN) ==
[2017-02-01 17:12] LABS: Red Blood Count 4.97 M/mcL (3.82-4.97)
[2017-02-01 17:13] LABS: Basophils % 0.1 %; Hematocrit 41.2 % (35.3-44.9); Immature Granulocytes % 0.6 % (0-4); Lymphocytes # 0.5 K/mcL (0.6-4.6); Lymphocytes % 4.5 %; Mean Corpuscular HGB Conc 31.6 g/dL (31.6-35.5); Mean Corpuscular Hemoglobin 26.2 pg (28.0-33.3); Mean Corpuscular Volume 82.9 fL (83.0-100.0); Mean Platelet Volume 10.9 fL (9.4-12.4); Monocytes # 0.4 K/mcL (0.0-1.3); Monocytes % 3.6 %; Platelet Count 181 K/mcL (140-400); Red Cell Distribution Width 16.7 % (11.5-14.5); Segmented Neutrophils % 91.2 %
[2017-02-01 17:18] LABS: Activated Partial Thrombo Time 47.6 Seconds (26.0-36.0)
[2017-02-01 17:22] LABS: BUN/Creatinine Ratio 24 (6-26); Blood Urea Nitrogen 21 mg/dL (7-20); Calcium 9.1 mg/dL (8.6-10.8); Carbon Dioxide 29 mEq/L (19-29); Chloride 101 mEq/L (98-109); Glucose 132 mg/dL (70-99); INR 4.7; Osmolality,Calculated 295 (280-300); Potassium 3.7 mEq/L (3.5-4.5); Prothrombin Time 53.3 Seconds (9.4-12.1); Sodium 140 mEq/L (136-145); eGFR For African Americans > 60 (> 60); eGFR For Non-African Americans > 60 (> 60)
--- NOTE | 2017-02-01 17:26 | Emergency Department Note ---
Disposition Clinical Impression: Atrial flutter Qualifiers: Atrial flutter type: typical Qualified Code(s): I48.3 - Typical atrial flutter Pneumonia Qualifiers: Pneumonia type: due to unspecified organism Laterality: right Lung location: lower lobe of lung Qualified Code(s): J18.1 - Lobar pneumonia, unspecified organism Disposition: Admitted As Inpatient Condition: Fair Time of Disposition: 18:45 General Adult HPI - General Chief complaint: ED Arrhythmia/Palpitations Stated complaint: In A-fib i think Time Seen by Provider: 02/01/17 16:48 Source: patient Limitations: no limitations Nursing Notes Reviewed: Yes Vital Signs Reviewed: Yes - History of Present Illness HPI Narrative: Patient emergency department. Patient was shortness of breath palpitations. History of A. fib. She has had multiple episodes over the past 8 months. Recent admission and started on Cardizem. She is on Coumadin as well. Pain Scale: 4 - Related Data Home Medications Medication Instructions Recorded Confirmed Albuterol Sulfate [Albuterol 1 - 2 puff IH Q4HR PRN 11/24/15 02/01/17 Inhaler] Allopurinol [Zyloprim 100 MG] 100 mg PO DAILY 11/24/15 02/01/17 Budesonide/Formoterol 160/4.5 2 puff IH BIDR 11/24/15 02/01/17 [Symbicort 160/4.5] Calcium Carbonate [Calcium] 500 mg PO BID 11/24/15 02/01/17 Cholecalciferol (D-3) [Vitamin D] 2,000 unit PO DAILY 11/24/15 02/01/17 Fluticasone Propionate Nasal 1 spray NS DAILY 11/24/15 02/01/17 [Flonase] Gabapentin [Neurontin] 200 mg PO HS 11/24/15 02/01/17 Loratadine [Claritin] 10 mg PO DAILY 11/24/15 02/01/17 Metoprolol XL (24 HR) Succ [Toprol 12.5 mg PO BID 11/24/15 02/01/17 Xl] Montelukast [Singulair] 10 mg PO DAILY 11/24/15 02/01/17 Nitroglycerin [Nitrostat] 0.4 mg SL Q5M PRN 11/24/15 02/01/17 Nortriptyline [Pamelor] 10 mg PO HS 11/24/15 02/01/17 Roflumilast [Daliresp] 500 mcg PO DAILY 11/24/15 02/01/17 Vitamin B Complex [B Complex] 1 tab PO DAILY 11/24/15 02/01/17 Umeclidinium Almo [Incruse 1 puff IH DAILY 12/17/15 02/01/17 Ellipta] Atorvastatin [Lipitor] 10 mg PO HS 01/01/16 02/01/17 Albuterol Neb [Proventil Neb] 2.5 mg IH Q4HR PRN 08/25/16 02/01/17 Bifidobacterium Infantis [Align] 4 mg PO DAILY 08/25/16 02/01/17 Tramadol HCl 50 - 100 mg PO QID PRN 09/13/16 02/01/17 Acetylcysteine 600 mg PO BID 10/08/16 02/01/17 [D-Juegka-z-Cysteine] Warfarin [Coumadin] 2.5 mg PO FRSA 01/18/17 02/01/17 Warfarin [Coumadin] 5 mg PO SUWE 01/18/17 02/01/17 Warfarin [Coumadin] 7.5 mg PO TUTH 01/18/17 02/01/17 Potassium Chloride [K-Tab ER] 30 meq PO DAILY 02/01/17 02/01/17 predniSONE [PredniSONE] See Taper PO TAPER 02/01/17 02/01/17 Previous Rx's Medication Instructions Recorded Oxygen 2 l IN CONT #1 each 08/26/16 Esomeprazole Magnesium [Nexium] 40 mg PO DAILY #30 capsule. 10/03/16 Furosemide [Lasix] 40 mg PO BID #60 tablet 10/03/16 Diltiazem CD (24hr) [Cardizem CD] 180 mg PO DAILY #30 01/22/17 Allergies Allergy/AdvReac Type Severity Reaction Status Date / Time ceftriaxone [From Rocephin] Allergy Severe Hives Verified 01/18/17 09:26 ciprofloxacin [From Cipro HC] Allergy Severe Hives Verified 01/18/17 09:26 levofloxacin [From Levaquin] Allergy Severe Hives Verified 01/18/17 09:26 hydrocortisone Allergy Intermediate Hives Verified 01/18/17 09:26 [From Cipro HC] vancomycin Allergy Mild Rash Verified 01/18/17 09:26 All systems ED: reviewed and negative except as stated. Constitutional: Denies: fever Cardiovascular: Reports: palpitations. Denies: chest pain Respiratory: Reports: dyspnea Gastrointestinal: Denies: abdominal pain Past Medical History - Past Medical History Attestation: Yes The following information was validated with the patient. Source: patient Medical history: Reports: arthritis, atrial fibrillation, cardiomyopathy, CHF, COPD, fibromyalgia, hypertension, myocardial infarction, osteoporosis, RA, other Surgical history: Reports: angioplasty/stent, cholecystectomy, coronary bypass ( CABG), heart valve replacement, orthopedic, other Psychiatric history: Reports: no psych history - Social History Smoking Status: Former smoker Smokeless Tobacco Status: No Alcohol use: Reports: none Drug use: Reports: none Physical Exam Patient sitting up in bed in no acute distress. Heart tachycardia and regular. Lungs diminished. No pedal edema. - General Limitations: no limitations General appearance: alert, in no apparent distress - Head Head exam: atraumatic, normocephalic - Eye Eye exam: Present: normal appearance, PERRL - ENT ENT exam: normal exam - Neck Neck exam: Present: normal inspection - Chest Chest inspection: Present: normal inspection, symmetric chest wall rise - Respiratory Respiratory exam: Absent: respiratory distress - Cardiovascular Cardiovascular exam: Present: normal rhythm, tachycardia - Abdominal Exam Abdominal exam: Present: soft, Non-Tender - Neurological Exam Neurological exam: Present: alert, oriented X3 - Psychiatric Psychiatric exam: Present: normal affect - Skin Skin exam: Present: warm, dry, intact Course - Reevaluation(s) Reevaluation #1: Patient saw the heart rate in the 150s. Increasing Cardizem at this time. Blood pressure stable 110 systolic. Patient has a worsening infiltrate in the right lung base. Cultures from early January reveal stenotrophomonas. It was sensitive to Bactrim. We will give her dose of Bactrim and also give her a dose of meropenem to cover her for hospital-acquired pneumonia. Patient hemodynamically stable other than her elevated heart rate at this time. He has elevated white blood cell count, however this is improved. Her heart rate is high from a flutter. She is not felt to be septic. She is admitted to medicine. Time: 18:03 - Consultations Consultation #1: Brittany ABEBE accepts Time: 18:04 Vital Signs Temperature 98.7 F 02/01/17 16:20 Pulse Rate 165 07/31/17 16:20 Respiratory Rate 16 02/01/17 16:20 Blood Pressure 98/69 02/01/17 16:20 O2 Sat by Pulse Oximetry 99 02/01/17 16:20 Temperature 98.7 F 02/01/17 16:20 Pulse Rate 154 02/01/17 18:22 Respiratory Rate 18 02/01/17 18:48 Blood Pressure 118/84 02/01/17 18:48 O2 Sat by Pulse Oximetry 97 02/01/17 18:22 Oxygen Delivery Oxygen Delivery Nasal Cannula Medical Decision Making - Lab Data Result diagrams: 02/01/17 16:58 02/01/17 16:58 Lab Results 02/01/17 02/01/17 02/01/17 Range/Units 16:58 16:58 16:58 WBC 12.1 H (4.3-11.1) K/mcL RBC 4.97 (3.82-4.97) M/mcL Hgb 13.0 (11.5-15.4) g/dL Hct 41.2 (35.3-44.9) % MCV 82.9 L (83.0-100.0) fL MCH 26.2 L (28.0-33.3) pg MCHC 31.6 (31.6-35.5) g/dL RDW 16.7 H (11.5-14.5) % Plt Count 181 (140-400) K/mcL MPV 10.9 (9.4-12.4) fL Immature Gran % 0.6 (0-4) % Seg Neutrophils % 91.2 % Lymphocytes % 4.5 % Monocytes % 3.6 % Eosinophils % 0.0 % Basophils % 0.1 % Neutrophils # 11.0 H (1.6-8.9) K/mcL Lymphocytes # 0.5 L (0.6-4.6) K/mcL Monocytes # 0.4 (0.0-1.3) K/mcL Eosinophils # 0.0 (0.0-0.6) K/mcL Basophils # 0.0 (0.0-0.2) K/mcL PT 53.3 H* (9.4-12.1) Seconds INR 4.7 H* APTT 47.6 H (26.0-36.0) Seconds Sodium 140 (136-145) mEq/L Potassium 3.7 (3.5-4.5) mEq/L Chloride 101 (98-109) mEq/L Carbon Dioxide 29 (19-29) mEq/L BUN 21 H (7-20) mg/dL Creatinine 0.86 (0.57-1.11) mg/dL Est GFR ( Amer) > 60 (> 60) Est GFR (Non-Af Amer) > 60 (> 60) BUN/Creatinine Ratio 24 (6-26) Glucose 132 H (70-99) mg/dL Calculated Osmolality 295 (280-300) Lactic Acid (0.5-2.2) mmol/L Calcium 9.1 (8.6-10.8) mg/dL Troponin I (0-0.03) ng/mL TSH 1.510 (0.350-4.840) mcIU/mL 02/01/17 02/01/17 Range/Units 16:58 18:28 WBC (4.3-11.1) K/mcL RBC (3.82-4.97) M/mcL Hgb (11.5-15.4) g/dL Hct (35.3-44.9) % MCV (83.0-100.0) fL MCH (28.0-33.3) pg MCHC (31.6-35.5) g/dL RDW (11.5-14.5) % Plt Count (140-400) K/mcL MPV (9.4-12.4) fL Immature Gran % (0-4) % Seg Neutrophils % % Lymphocytes % % Monocytes % % Eosinophils % % Basophils % % Neutrophils # (1.6-8.9) K/mcL Lymphocytes # (0.6-4.6) K/mcL Monocytes # (0.0-1.3) K/mcL Eosinophils # (0.0-0.6) K/mcL Basophils # (0.0-0.2) K/mcL PT (9.4-12.1) Seconds INR APTT (26.0-36.0) Seconds Sodium (136-145) mEq/L Potassium (3.5-4.5) mEq/L Chloride (98-109) mEq/L Carbon Dioxide (19-29) mEq/L BUN (7-20) mg/dL Creatinine (0.57-1.11) mg/dL Est GFR ( Amer) (> 60) Est GFR (Non-Af Amer) (> 60) BUN/Creatinine Ratio (6-26) Glucose (70-99) mg/dL Calculated Osmolality (280-300) Lactic Acid 2.0 (0.5-2.2) mmol/L Calcium (8.6-10.8) mg/dL Troponin I 0.01 (0-0.03) ng/mL TSH (0.350-4.840) mcIU/mL - Radiology Data Radiology results reviewed: Yes I reviewed the patient's radiology results. Chest X-Ray 02/01/17 16:49 IMPRESSION: 1. Chronic ill-defined airspace disease of the right lower lobe with supra ankle post increased right basilar opacities. Recommend clinical correlation to exclude pneumonia. 2. Findings suggesting bilateral pleural effusions. 3. Chronic emphysematous changes. D/ / Carrillo Mcclelland MD / Carrillo Mcclelland MD Interpreting Provider: Carrillo Mcclelland MD - EKG Data EKG #1 EKG attestation: Yes I reviewed and interpreted this EKG. EKG results narrative: Atrial flutter 164. Anteroseptal ST depressions. Normal axis. QTC to 55 QTC 345 Critical Care Time Critical Care Time: Yes Total Critical Care Time: 40 Attestation: 40 minutes of critical care exclusive of separately billable procedures
[2017-02-01] MEDS ORDERED: 0.9 % Sodium Chloride 500 ML ONE (17:30)
[2017-02-01] MEDS ORDERED: Piperacillin/Tazobactam 3.375 GM in D5% in Water (Mini-Bag+) 100 ML IVPB ONE (17:56)
[2017-02-01] MEDS ORDERED: Meropenem 1,000 MG in 0.9 % Sodium Chloride Mini Bag 100 ML IVPB STA (17:57)
[2017-02-01] MEDS ORDERED: Sulfamethoxazole/Trimeth DS 1 EACH TABLET PO ONE (18:03)
[2017-02-01] MEDS ORDERED: *HR* Digoxin 0.5 MG/2 ML AMPUL IVP ONE (20:39)
[2017-02-01] MEDS ORDERED: Naloxone 0.4 MG/ML INJ IVP PRN (20:45)
[2017-02-01] MEDS ORDERED: Ondansetron 4 MG/2 ML VIAL IVP PRN (20:45)
--- NOTE | 2017-02-01 21:13 | Internal Med History&Physical ---
<Brittany Paez - Last Filed: 02/01/17 21:53> Date of Encounter: 02/01/17 Time of Encounter: 20:00 Assessment and Plan (1) Atrial flutter with rapid ventricular response Current visit: Yes Status: Acute 1 patient has a history of paroxysmal atrial fibrillation she recently had her Cardizem increased from 120-180.Today she has been experiencing shortness of breath and palpitations. Today she presented to the ER in atrial flutter with rapid ventricular response rate of 164. She was initiated on a Cardizem drip which we will continue 2 we will give IV digoxin 0.25 now and repeat 2 doses then we will continue .125 every 6 hours starting tomorrow 3 consult cardiology-consult order placed day shift will follow up on consult in a.m. 4 continuous cardiac monitoring 5. Patient is anticoagulated on Coumadin however being held presently due to supratherapeutic INR-will resume once back to baseline 6 continue with beta halle (2) Supratherapeutic INR Current visit: No Status: Acute 1 patient is on Coumadin for mechanical valve INR today is 4.7. We will hold for now-goal is 2.5-3-however anticipating possible bronchoscopy we will continue to hold/ monitor INR (3) Chronic respiratory failure Current visit: Yes Status: Chronic 1 patient experiencing increasing shortness of breath and requiring increase in oxygen supplementation. She stable at this 0.4 L nasal cannula 96%. She has been experiencing atrial flutter with RVR as well as a continued pneumonia. We will attempt to control her heart rate with Cardizem drip as well as digoxin 2 we will continue with oxygen titrating to maintain SPO2 greater than 92% 3 we will continue with bronchodilators and aggressive pulmonary toilet - 4 Mucomyst for sputum production Qualifiers: Respiratory failure complication: unspecified whether with hypoxia or hypercapnia Qualified Code(s): J96.10 - Chronic respiratory failure, unspecified whether with hypoxia or hypercapnia (4) CAD (coronary artery disease) Current visit: No Status: Acute 1 continue with statin beta halle nitrates and oxygen 2 continuous cardiac monitoring Qualifiers: Coronary Disease-Associated Artery/Lesion type: [place] artery [place] vs. transplanted heart: [place] heart Associated angina: without angina Qualified Code(s): I25.10 - Atherosclerotic heart disease of [place] coronary artery without angina pectoris (5) Pneumonia Current visit: No Status: Acute 1 patiently was admitted to this facility 01/18/2017 with pneumonia- sputum and bronchial cultures did reveal stenotrophomonas patient was started on Bactrim as well as steroid tapering was discharged home. She continued to experience increasing shortness of breath readmitted on 01/22/2017 for COPD exacerbation-blood cultures and sputum cultures at that time -with no growth She has been compliant with her medications. patient's chest x-ray ill- defined airspace diseaseof the right lung base. She was discharged home on steroid taper. She presented back today with increasing shortness of breath chest x-ray did reveal an infiltrate in right lung base. She was scheduled to follow-up with as an outpatient on 02/02/17 for bronchoscopy. She was initiated on meropenem in the ER which we will continue. We will continue with Bactrim since it was sensitive prior in January. 2 continue with bronchodilators and on some Mucomyst due to increased sputum production 3 aggressive pulmonary toilet 4 steroid taper 5 we did consult pulmonary 6 blood cultures have been obtained we will obtain sputum culture 7 we will consult pulmonary-consult has been ordered, follow-up with consult per day team 8 we will consult infectious disease-consult has been ordered, follow-up with consult per day team Qualifiers: Pneumonia type: due to other aerobic Gram-negative bacteria Laterality: right Lung location: lower lobe of lung Qualified Code(s): J15.6 - Pneumonia due to other aerobic Gram-negative bacteria (6) CKD (chronic kidney disease) stage 3, GFR 30-59 ml/min Current visit: No Status: Chronic 1 presently stable creatinine 0.86 we will continue to monitor 2 monitor intake and output daily weights 3 avoid nephrotoxins 4 renal dose antibiotics (7) COPD (chronic obstructive pulmonary disease) Current visit: No Status: Chronic 1 we will continue with oxygen and bronchodilators 2 continue with steroids Qualifiers: COPD type: unspecified COPD Qualified Code(s): J44.9 - Chronic obstructive pulmonary disease, unspecified (8) Diastolic CHF Current visit: No Status: Chronic F 65-70% -recently stable-continue with Lasix Low-sodium diet Monitor intake and output daily weights Qualifiers: Congestive heart failure chronicity: chronic Qualified Code(s): I50.32 - Chronic diastolic (congestive) heart failure (9) H/O mitral valve replacement with mechanical valve Current visit: No Status: Chronic Patient is on Coumadin for mechanical valve presently supratherapeutic at 4.7. We will hold for now continue to monitor INR. Goal is 2.5-3 (10) DVT prophylaxis Current visit: No Status: Acute Patient is on Coumadin-we will add SCDs Internal Medicine - H&P: HPI Chief complaint: SOB Admitted From: Emergency Dept Plans for Post Hospital Care: Home History of present illness: Ms. Dewitt is a 71 year old female past medical history of CABG with mitral valve replacement mechanical valve(2007) diastolic heart failure COPD oxygen dependent CK D stage III atrial fibrillation.She was admitted to this hospital on 12/31/16 for shortness of breath and during admission she had an episode of Juma eli RVR she was started on diltiazem for rate control. Sputum cultures revealed stenotrophonas, bronchoscopy completed on 01/10/17 which also confirmed growth of stenotrophonas, sensitive to Levaquin as well as Bactrim. She was discharged home on prednisone taper as well as 14 day regime of Bactrim she was recently readmitted on 01/18/2017 for increasing shortness of breath she was admitted with acute exacerbation of COPD at that time chest x-ray showed unchanged atelectasis and advanced emphysema she was continued on nebulizers and IV glucorticoid steroids and Mucinex. Her hospital course was called. By Juma eli with RVR that required Cardizem drip and she was transitioned to oral and increased dose. She was discharged home on oral steroid taper and increased dose of Cardizem and was to follow up as outpatient with pulmonary as well as cardiology. Over the past couple days the patient has been experiencing increasing shortness of breath despite the use of oxygen as well as palpitations. She continues to have a productive cough of yellow to orange color sputum. She denies any fevers chills nausea vomiting or diarrhea. She does have an appointment with pulmonary on 02/02/2017 for an outpatient bronchoscopy. She did call her mail handler sorter who advised her to go to the ER palpitations continued. Patient presented to the ER with the above complaints. According to ER records from presentation EKG did reveal atrial flutter with rapid ventricular response heart rate of 164. She was given bolus of IV Cardizem and started on Cardizem drip titrating to maintain rate. Lab work revealed that she had a supratherapeutic INR 4.7 white count was 12.1 she was afebrile SPO2 is 99%. Chest x-ray did reveal worsening infiltrate in the right lung base. Blood cultures were obtained as well sputum culture ordered. She was given meropenem as well as Bactrim since culture in January stenotrophomonas sensitive to Bactrim. She has been admitted for further work up evaluation. Oneil patient does not appear to be restaurant distress oxygen saturation is 98% on 4 L nasal cannula she continues to be an atrial flutter heart rate of 110 -120. Systolic blood pressure is 118. She is at the maximum dose of Cardizem at 15 mL's an hour. Her lung sounds have scattered rhonchi throughout she has a moist cough. Heart sounds are irregular S1-S2 with a noted click no murmurs or gallops. No pedal edema. She denies any chest pain at this time. She appears hemodynamically stable at this time.I reviewed this case with DR Evans who agrees with plan ( Past Med Surg Social Fam HX - Past Medical History Medical history: arthritis, atrial fibrillation, cardiomyopathy, CHF, COPD, fibromyalgia, hypertension, myocardial infarction, osteoporosis, RA, other Psychiatric history: no psych history - Past Surgical History Surgical History: angioplasty/stent, cholecystectomy, coronary bypass (CABG), heart valve replacement, orthopedic, other - Social History Smoking Status: Former smoker Smokeless Tobacco Status: No Alcohol use: none Drug use: none - Family History Father Living Status: Hx Family Cardiac Disorders: Yes (open heart surgery) Hx Family Respiratory Disorders: No Hx Family Cancer: Yes (Liver cancer w/ mets) Hx Family GI Disorders: No Hx Family Endocrine Disorder: No Hx Family Neuromuscular Disorders: No Hx Family Neurologic Disorders: No Hx Family HEENT Disorders: No Hx Family Autoimmune Disorders: No Mother Living Status: Hx Family Cardiac Disorders: No Hx Family Respiratory Disorders: Yes Hx Family Cancer: Yes (bone, lung) Hx Family GI Disorders: No Hx Family Endocrine Disorder: No Hx Family Neuromuscular Disorders: No Hx Family Neurologic Disorders: No Hx Family HEENT Disorders: No Hx Family Autoimmune Disorders: No Internal Medicine - H&P: Meds Albuterol Sulfate [Albuterol Inhaler] 1 - 2 puff IH Q4HR PRN 11/24/15 [History] Allopurinol [Zyloprim 100 MG] 100 mg PO DAILY 11/24/15 [History] Budesonide/Formoterol 160/4.5 [Symbicort 160/4.5] 2 puff IH BIDR 11/24/15 [ History] Calcium Carbonate [Calcium] 500 mg PO BID 11/24/15 [History] Cholecalciferol (D-3) [Vitamin D] 2,000 unit PO DAILY 11/24/15 [History] Fluticasone Propionate Nasal [Flonase] 1 spray NS DAILY 11/24/15 [History] Gabapentin [Neurontin] 200 mg PO HS 11/24/15 [History] Loratadine [Claritin] 10 mg PO DAILY 11/24/15 [History] Metoprolol XL (24 HR) Succ [Toprol Xl] 12.5 mg PO BID 11/24/15 [History] Montelukast [Singulair] 10 mg PO DAILY 11/24/15 [History] Nitroglycerin [Nitrostat] 0.4 mg SL Q5M PRN 11/24/15 [History] Nortriptyline [Pamelor] 10 mg PO HS 11/24/15 [History] Roflumilast [Daliresp] 500 mcg PO DAILY 11/24/15 [History] Vitamin B Complex [B Complex] 1 tab PO DAILY 11/24/15 [History] Umeclidinium Benedict [Incruse Ellipta] 1 puff IH DAILY 12/17/15 [History] Atorvastatin [Lipitor] 10 mg PO HS 01/01/16 [History] Albuterol Neb [Proventil Neb] 2.5 mg IH Q4HR PRN 08/25/16 [History] Bifidobacterium Infantis [Align] 4 mg PO DAILY 08/25/16 [History] Oxygen 2 l IN CONT #1 each 08/26/16 [Rx] Tramadol HCl 50 - 100 mg PO QID PRN 09/13/16 [History] Esomeprazole Magnesium [Nexium] 40 mg PO DAILY #30 capsule. 10/03/16 [Rx] Furosemide [Lasix] 40 mg PO BID #60 tablet 10/03/16 [Rx] Acetylcysteine [M-Ypbhlf-t-Cysteine] 600 mg PO BID 10/08/16 [History] Warfarin [Coumadin] 2.5 mg PO FRSA 01/18/17 [History] Warfarin [Coumadin] 5 mg PO SUWE 01/18/17 [History] Warfarin [Coumadin] 7.5 mg PO TUTH 01/18/17 [History] Diltiazem CD (24hr) [Cardizem CD] 180 mg PO DAILY #30 01/22/17 [Rx] Potassium Chloride [K-Tab ER] 30 meq PO DAILY 02/01/17 [History] predniSONE [PredniSONE] See Taper PO TAPER 02/01/17 [History] Allergies ceftriaxone [From Rocephin] Allergy (Severe, Verified 01/18/17 09:26) Hives ciprofloxacin [From Cipro HC] Allergy (Severe, Verified 01/18/17 09:26) Hives levofloxacin [From Levaquin] Allergy (Severe, Verified 01/18/17 09:26) Hives hydrocortisone [From Cipro HC] Allergy (Intermediate, Verified 01/18/17 09:26) Hives vancomycin Allergy (Mild, Verified 01/18/17 09:26) Rash Spoke with ID from [facility], in 2007 presented with skin rash which was subsequently attributed to either vancomycin, amiodarone, or another medicine as all other causes were ruled out. Important to note this was recorded as a rash and not hives, trouble breathing, etc. All Systems PM: A 10-system review of systems was performed and is negative for pertinent findings except as documented above in the HPI. - Constitutional Constitutional: no chills, no fever(s), no night sweats - EENT Eyes: no change in vision, no discharge, no pain, no photophobia Nose, mouth and throat: no dysphagia, no nasal discharge, no neck pain, no sore throat - Cardiovascular Cardiovascular ROS IM: dyspnea, no chest pain, no diaphoresis, no lightheadedness, no palpitations, no syncope - Respiratory Respiratory: cough, dyspnea, excessive phlegm production, change in phlegm color - Gastrointestinal Gastrointestinal: no abdominal pain, no diarrhea, no hematemesis, no hematochezia, no melena, no nausea, no vomiting - Genitourinary Genitourinary: no change in urinary stream, no dysuria, no flank pain, no hematuria - Musculoskeletal Musculoskeletal ROS IM: no numbness, no tingling - Integumentary Integumentary IM: no rash, no unusual bruising - Neurological Neurological ROS: no confusion, no convulsions, no focal weakness, no numbness, no tingling, no tremor(s) - Hematologic/Lymphatic Hematologic/Lymphatic: no easy bruising - Constitutional Vitals: Temp Pulse Resp BP Pulse Ox 98.7 F 154 18 118/84 97 02/01/17 16:20 02/01/17 18:22 02/01/17 18:48 02/01/17 18:48 02/01/17 18:22 General appearance: Present: A&O X 3, answers questions appropriately - Head Head exam: Present: atraumatic, normocephalic - Eye Eye exam: Present: PERRL, conjuntiva pink, sclera anicteric Pupils: Present: PERRL - Neck Neck exam general surgery: Present: supple, trachea midline. Absent: lymphadenopathy - Respiratory Respiratory exam: Present: rhonchi. Absent: accessory muscle use, rales, wheezes - Cardiovascular Cardiovascular exam: Present: clicks, irregular rhythm, +S1, +S2. Absent: diastolic murmur, gallop, rubs, systolic murmur - GI/Abdominal GI/Abdominal exam: Present: normal bowel sounds, soft, no peritoneal signs. Absent: distended, tenderness - Extremities Exam Extremities exam: Present: warm, radial pulses palpable and symetrical. Absent : calf tenderness, cyanotic, pedal edema - Neurological Exam Neurological exam: Present: CN II-XII intact, oriented X3, no focal deficits. Absent: pronater drift, facial droop, speech deficit - Skin Skin exam: Present: dry, intact Internal Med - H&P Results - Labs CBC & Chem 7: 02/01/17 16:58 02/01/17 16:58 - EKG Data EKG comments: 02/01/17 21:27 Atrial flutter with rapid ventricular response rate of 164 - Diagnostic Studies Chest x-ray Additional comments: Chest X-Ray 02/01/17 16:49 IMPRESSION: 1. Chronic ill-defined airspace disease of the right lower lobe with supra ankle post increased right basilar opacities. Recommend clinical correlation to exclude pneumonia. 2. Findings suggesting bilateral pleural effusions. 3. Chronic emphysematous changes. D/ / Carrillo Mcclelland MD / Carrillo Mcclelland MD Interpreting Provider: Carrillo Mcclelland MD <Otf Evans - Last Filed: 02/01/17 23:58> Date of Encounter: 02/01/17 Internal Medicine - H&P: HPI History of present illness: Ms. Dewitt is a 71 year old female All Systems PM: A 10-system review of systems was performed and is negative for pertinent findings except as documented above in the HPI. - Constitutional Vitals: Temp Pulse Resp BP Pulse Ox 98.2 F 115 18 112/85 96 02/01/17 21:55 02/01/17 21:55 02/01/17 23:04 02/01/17 21:55 02/01/17 23:04 Internal Med - H&P Results - Labs CBC & Chem 7: 02/01/17 16:58 02/01/17 16:58 - Attending Attestation I independently obtained history and examined this patient and my medical decision-making was reviewed with the nurse practitioner, Brittany Paez. I agree with the documented findings, disposition and treatment plan as described. My findings are summarized below: Patient with significant shortness of breath and cough. On exam heart is irregularly irregular and tachycardic. Plan we will treat her with meropenem and Bactrim. Consult cardiology. Consult pulmonary.
[2017-02-01] MEDS: Acetylcysteine 10% 2 ML INHSOL IH SCH (22:28)
[2017-02-01] MEDS: Budesonide/Formoterol 160/4.5 MDI IH SCH (22:38)
[2017-02-01] MEDS: Albuterol 2.5 MG/3 ML NEBULIZER IH PRN (23:02)
[2017-02-01] MEDS: Gabapentin 100 MG CAPSULE PO SCH (23:17)
[2017-02-01] MEDS: Furosemide 40 MG TABLET PO SCH (23:55)
[2017-02-01] MEDS: Metoprolol XL (24 HR) Succ 25 MG TAB.ER.24H PO SCH (23:56)
[2017-02-02] MEDS ORDERED: *HR* Digoxin 0.5 MG/2 ML AMPUL IVP SCH (03:00)
[2017-02-02] MEDS: Acetylcysteine 10% 2 ML INHSOL IH SCH ×4 (04:27→22:45)
[2017-02-02] MEDS: Albuterol 2.5 MG/3 ML NEBULIZER IH PRN ×2 (04:27→10:48)
[2017-02-02 05:48] LABS: Basophils % 0.1 %; Hematocrit 33.7 % (35.3-44.9); Hemoglobin 10.6 g/dL (11.5-15.4); Immature Granulocytes % 0.6 % (0-4); Lymphocytes # 1.2 K/mcL (0.6-4.6); Lymphocytes % 13.1 %; Mean Corpuscular HGB Conc 31.5 g/dL (31.6-35.5); Mean Corpuscular Hemoglobin 25.9 pg (28.0-33.3); Mean Corpuscular Volume 82.2 fL (83.0-100.0); Mean Platelet Volume 10.7 fL (9.4-12.4); Monocytes # 0.7 K/mcL (0.0-1.3); Monocytes % 7.4 %; Neutrophils # 7.1 K/mcL (1.6-8.9); Platelet Count 159 K/mcL (140-400); Red Cell Distribution Width 16.4 % (11.5-14.5); Segmented Neutrophils % 78.8 %
[2017-02-02 05:56] LABS: INR 5.1
[2017-02-02 05:57] LABS: Prothrombin Time 57.5 Seconds (9.4-12.1)
[2017-02-02] MEDS ORDERED: Meropenem 1,000 MG in 0.9 % Sodium Chloride Mini Bag 100 ML IVPB SCH (07:00)
[2017-02-02 07:59] LABS: BUN/Creatinine Ratio 26 (6-26); Blood Urea Nitrogen 24 mg/dL (7-20); Calcium 8.3 mg/dL (8.6-10.8); Carbon Dioxide 27 mEq/L (19-29); Chloride 106 mEq/L (98-109); Glucose 74 mg/dL (70-99); Osmolality,Calculated 293 (280-300); Potassium 3.5 mEq/L (3.5-4.5); Sodium 140 mEq/L (136-145); eGFR For African Americans > 60 (> 60); eGFR For Non-African Americans 59 (> 60)
[2017-02-02] MEDS ORDERED: (Umeclidinium Bromide [Incruse Ellipta] 1 PUFF) IH SCH (09:00)
[2017-02-02] MEDS ORDERED: predniSONE 20 MG TABLET PO SCH ×2 (09:00)
[2017-02-02] MEDS ORDERED: (Roflumilast [Daliresp] 500 MCG) PO SCH (09:00)
[2017-02-02] MEDS ORDERED: (Bifidobacterium Infantis [Align] 4 MG) PO SCH (09:00)
[2017-02-02] MEDS: Metoprolol XL (24 HR) Succ 25 MG TAB.ER.24H PO SCH ×2 (09:11→21:01)
[2017-02-02] MEDS: Loratadine 10 MG TABLET PO SCH (09:12)
[2017-02-02] MEDS: Sulfamethoxazole/Trimeth DS 1 EACH TABLET PO SCH ×2 (09:12→21:01)
[2017-02-02] MEDS: Cholecalciferol (D-3) 1,000 UNIT TABLET PO SCH (09:12)
[2017-02-02] MEDS: Furosemide 40 MG TABLET PO SCH (09:12)
[2017-02-02] MEDS: Budesonide/Formoterol 160/4.5 MDI IH SCH (10:47)
--- NOTE | 2017-02-02 13:54 | Infectious Disease Consult ---
Date of Encounter: 02/02/17 Time of Encounter: 13:24 Assessment and Plan (1) Hospital-acquired pneumonia Status: Acute Assessment and plan: questionable pneumonia vs chronic left base infiltrate Labs on admission revealed a initial white blood count 12.1 with 91% neutrophils and lactic acid of 2.0, She has met two SIRS criteria with WBC 12.1 and tachycardia. Chest x-ray revealed worsening infiltrates in the right lung base. Blood and sputum Cultures were collected. Patient was given Bactrim given prior sensitivity results and Merrem to cover for Hospital acquired pneumonia. Recommendations: Sputum culture collected. Blood cultures pending. CT chest w/o contrast pending Discontinue Merrem. Start Zosyn. Continue Bactrim. Duration of antibiotics will depend on clinical picture. Please continue to monitor for drug toxicities. Creatinine clearance 53. Please continue to follow renal function. (2) Failure of outpatient treatment Status: Acute Assessment and plan: Patient has been admitted multiple times since October 2016 for pneumonia and was previously treated with Doxycycline, Bactrim, and Zosyn. Patient reports she has very limited IV access and required new port placement by IR on 01/04/17. Bronchoscopy completed on 01/10/17 confirmed growth of persistent Stenotrophomonas maltophilia found on sputum culture as far back as 10/10/2016 sensitive to Bactrim and levofloxacin. She was most recently discharged on 01/12 with Bactrim DS to finish total 14-day course of treatment for pneumonia. (3) Acute exacerbation of chronic obstructive pulmonary disease (COPD) Status: Acute Assessment and plan: Current management per primary team (4) Mucus plugging of bronchi Status: Chronic Assessment and plan: Pulmonology following (5) Atrial flutter with rapid ventricular response Status: Acute Assessment and plan: Heart rate currently controlled on sotalol. Cardiology following Infectious Disease HPI - Data of Consult Requesting Physician: eJssie Fernandez MD Primary Care Provider: Christoph Hughes - Consult Narrative Reason for consult: continued pneumonia- previous culture stenotrophomonas History of present illness: Ms. Dewitt is a 71 year old female that was admitted on 02/01/17 for palpitations and increased shortness of breath. Infectious disease is consulted on 02/01/17 for continued pneumonia- previous culture stenotrophomonas Ms. Dewitt is a 71 year old female with pmh significant for diastolic heart failure, oxygen dependent COPD, CKD stage III, atrial fibrillation, CAD, mechanical mitral valve on Coumadin, and recent hospitalization on 01/02/17 for pneumonia and A. fib with a RVR. Of note, patient has been admitted multiple times since October 2016 for pneumonia and was previously treated with Doxycycline , Bactrim, and Zosyn. Patient reports she has very limited IV access and required new port placement by IR on 01/04/17. Bronchoscopy completed on 01/10/17 confirmed growth of persistent Stenotrophomonas maltophilia found on sputum culture as far back as 10/10/2016 sensitive to Bactrim and levofloxacin. She was most recently discharged on 01/12/17 with Bactrim DS to finish total 14-day course of treatment for pneumonia. In the ED, patient's heart rate was in the 150s and hemodynamically stable. Since admission she has met two SIRS criteria with WBC 12.1 and tachycardia. Heart rate is now controlled on Sotalol. Labs on admission revealed a initial white blood count 12.1 with 91% neutrophils and lactic acid of 2.0 Chest x-ray revealed worsening infiltrates in the right lung base. Blood and sputum Cultures were collected. Patient was given Bactrim given prior sensitivity results and Merrom to cover for Hospital acquired pneumonia. Other consultants include cardiology and pulmonology. Today the patient complains of increasing shortness of breath despite the use of oxygen as well as palpitations. She continues to have a productive cough of yellow to orange colored sputum. She denies fevers, chills, nausea, vomiting, or diarrhea. CC: Jessie Fernandez MD Past Med Surg Social Fam HX - Past Medical History Medical history: arthritis, atrial fibrillation, cardiomyopathy, CHF, COPD, fibromyalgia, hypertension, myocardial infarction, osteoporosis, RA, other Psychiatric history: no psych history - Past Surgical History Surgical History: angioplasty/stent, cholecystectomy, coronary bypass (CABG), heart valve replacement, orthopedic, other - Social History Smoking Status: Former smoker Smokeless Tobacco Status: No Alcohol use: none Drug use: none - Family History Father Living Status: Hx Family Cardiac Disorders: Yes (open heart surgery) Hx Family Respiratory Disorders: No Hx Family Cancer: Yes (Liver cancer w/ mets) Hx Family GI Disorders: No Hx Family Endocrine Disorder: No Hx Family Neuromuscular Disorders: No Hx Family Neurologic Disorders: No Hx Family HEENT Disorders: No Hx Family Autoimmune Disorders: No Mother Living Status: Hx Family Cardiac Disorders: No Hx Family Respiratory Disorders: Yes Hx Family Cancer: Yes (bone, lung) Hx Family GI Disorders: No Hx Family Endocrine Disorder: No Hx Family Neuromuscular Disorders: No Hx Family Neurologic Disorders: No Hx Family HEENT Disorders: No Hx Family Autoimmune Disorders: No Infectious Disease-CN:Meds Albuterol Sulfate [Albuterol Inhaler] 1 - 2 puff IH Q4HR PRN 11/24/15 [History] Allopurinol [Zyloprim 100 MG] 100 mg PO DAILY 11/24/15 [History] Budesonide/Formoterol 160/4.5 [Symbicort 160/4.5] 2 puff IH BIDR 11/24/15 [ History] Calcium Carbonate [Calcium] 500 mg PO BID 11/24/15 [History] Cholecalciferol (D-3) [Vitamin D] 2,000 unit PO DAILY 11/24/15 [History] Fluticasone Propionate Nasal [Flonase] 1 spray NS DAILY 11/24/15 [History] Gabapentin [Neurontin] 200 mg PO HS 11/24/15 [History] Loratadine [Claritin] 10 mg PO DAILY 11/24/15 [History] Metoprolol XL (24 HR) Succ [Toprol Xl] 12.5 mg PO BID 11/24/15 [History] Montelukast [Singulair] 10 mg PO DAILY 11/24/15 [History] Nitroglycerin [Nitrostat] 0.4 mg SL Q5M PRN 11/24/15 [History] Nortriptyline [Pamelor] 10 mg PO HS 11/24/15 [History] Roflumilast [Daliresp] 500 mcg PO DAILY 11/24/15 [History] Vitamin B Complex [B Complex] 1 tab PO DAILY 11/24/15 [History] Umeclidinium [place] [Incruse Ellipta] 1 puff IH DAILY 12/17/15 [History] Atorvastatin [Lipitor] 10 mg PO HS 01/01/16 [History] Albuterol Neb [Proventil Neb] 2.5 mg IH Q4HR PRN 08/25/16 [History] Bifidobacterium Infantis [Align] 4 mg PO DAILY 08/25/16 [History] Oxygen 2 l IN CONT #1 each 08/26/16 [Rx] Tramadol HCl 50 - 100 mg PO QID PRN 09/13/16 [History] Esomeprazole Magnesium [Nexium] 40 mg PO DAILY #30 capsule. 10/03/16 [Rx] Furosemide [Lasix] 40 mg PO BID #60 tablet 10/03/16 [Rx] Acetylcysteine [A-Efqpav-j-Cysteine] 600 mg PO BID 10/08/16 [History] Warfarin [Coumadin] 2.5 mg PO FRSA 01/18/17 [History] Warfarin [Coumadin] 5 mg PO SUWE 01/18/17 [History] Warfarin [Coumadin] 7.5 mg PO TUTH 01/18/17 [History] Diltiazem CD (24hr) [Cardizem CD] 180 mg PO DAILY #30 01/22/17 [Rx] Potassium Chloride [K-Tab ER] 30 meq PO DAILY 02/01/17 [History] predniSONE [PredniSONE] See Taper PO TAPER 02/01/17 [History] Allergies ceftriaxone [From Rocephin] Allergy (Severe, Verified 01/18/17 09:26) Hives ciprofloxacin [From Cipro HC] Allergy (Severe, Verified 01/18/17 09:26) Hives levofloxacin [From Levaquin] Allergy (Severe, Verified 01/18/17 09:26) Hives hydrocortisone [From Cipro HC] Allergy (Intermediate, Verified 01/18/17 09:26) Hives vancomycin Allergy (Mild, Verified 01/18/17 09:26) Rash Spoke with ID from [facility], in 2007 presented with skin rash which was subsequently attributed to either vancomycin, amiodarone, or another medicine as all other causes were ruled out. Important to note this was recorded as a rash and not hives, trouble breathing, etc. Review of systems: Travel: denies recent travel Animal exposure: Denies Sick contacts: Denies. Denies exposure to sick contacts Diet: denies ingestion of undercooked or raw meats. Dental: denies recent dental procedures - Constitutional Constitutional: Present: fatigue. Absent: chills, fever(s), night sweats, weight gain, weight loss - EENT Eyes: Absent: change in vision Nose, mouth and throat: Present: sore throat. Absent: nasal congestion, nasal discharge - Cardiovascular Cardiovascular: Present: irregular heart rhythm, orthopnea, palpitations - Respiratory Respiratory: Present: cough, dyspnea on exertion, wheezing, chest congestion, excessive phlegm production, change in phlegm color (Yellow to green). Absent: pain on inspiration - Gastrointestinal Gastrointestinal: Absent: abdominal pain, constipation, diarrhea, loose stools, nausea, vomiting - Genitourinary Genitourinary: Absent: dysuria, urinary frequency - Musculoskeletal Musculoskeletal: Absent: arthralgias, myalgias - Integumentary Integumentary: Absent: change in hair, change in nails, lesions, rash, swelling - Neurological Neurological: Absent: dizziness, numbness, tingling, weakness - Endocrine Endocrine: Absent: cold intolerance, palpitations, polydipsia, polyphagia, polyuria Exam - Constitutional Vitals: Temp Pulse Resp BP Pulse Ox 98.1 F 105 18 144/80 92 02/02/17 12:13 02/02/17 12:13 02/02/17 12:13 02/02/17 12:13 02/02/17 12:13 General appearance: cooperative, no acute distress, no febrile - Head Head exam: Present: atraumatic, normal inspection, normocephalic - Eye Eye exam: Present: PERRL - ENT ENT exam: Present: mucous membranes moist, normal oropharynx - Neck Neck exam: Present: normal inspection. Absent: lymphadenopathy, tenderness, thyromegaly - Respiratory Respiratory exam: Present: decreased breath sounds, prolonged expiratory phase, rales. Absent: CTAB - Cardiovascular Cardiovascular exam: Present: +S1, +S2, systolic murmur, tachycardia. Absent: diastolic murmur Additional comments: Port-A-Cath present right chest - GI/Abdominal GI/Abdominal exam: Present: normal bowel sounds, soft. Absent: distended, guarding, rebound - Extremities Exam Extremities exam: Present: full ROM, normal inspection. Absent: pedal edema, tenderness - Skin Skin exam: Present: normal color, warm. Absent: erythema, rash Additional comments: Port-A-Cath present right upper chest with no surrounding erythema Infectious Disease CN: Results - Labs CBC & Chem 7: 02/02/17 05:39 02/02/17 05:39 Cultures: Cultures 02/01/17 23:52 Sputum Culture - Preliminary Sputum Consult Discharge Plan - Plan Referrals: Christoph Hughes DO [Primary Care Provider] - - Attending Attestation I examined this patient and my medical decision-making was reviewed with the Resident Physician. I agree with the documented findings, disposition and treatment plan as described except to the extent set forth below. Patient is a 71-year-old woman who has an extensive past medical history mentioned below was admitted to [facility] for worsening shortness of breath and A. fib with RVR. Patient apparently with severe COPD on home oxygen who has severe emphysema noted on the CT chest in November of this year has been having worsening shortness of breath, dyspnea on exertion and palpitation. Patient apparently was admitted back here for times this year the most recent time was in January where she was noted to have pneumonia on the left base. Patient's previous sputum culture were positive for Stenotrophomonas maltophilia that is resistant to ceftazidime and resistant to levofloxacin. Patient was started with Bactrim. Ration states she went home and she did not feel any better with Bactrim. Patient came back to the hospital where she finished a course of Bactrim and was on high dose steroids and continued to not feel better. Patient was discharged in a few days later came back with continued to have significant shortness of breath and A. fib with RVR. After reviewing everything I'm not sure if this patient has an active pneumonia on the left base or infiltrates for other reasoning including malignancy or pleural effusion or fibrosis. I would repeat a CT scan without contrast to compare with the one in November. Consult Dr. villanueva who was supposed to be seeing the patient in clinic in the next day or 2 to schedule a bronchoscopy as per patient's information. [facility] [place] [facility] [place] she still here. I'm not sure what we are treating right now, consider either stopping all antibiotics or discontinue Bactrim and Zosyn while Dr. villanueva evaluates the patient. Overall prognosis is very poor based on her pulmonary function. We'll continue to follow closely. Monitor labs and for drug toxicity.
[2017-02-02] MEDS ORDERED: Albuterol 2.5 MG/3 ML NEBULIZER IH PRN (14:28)
[2017-02-02] MEDS ORDERED: Furosemide 40 MG/4 ML VIAL IVP ONE (14:41)
--- NOTE | 2017-02-02 15:13 | Cardiology Consult Note ---
Date of Encounter: 02/02/17 Time of Encounter: 08:30 Assessment and Plan (1) Atrial fibrillation with RVR Current Visit: No Status: Acute Per Cardiology: History of paroxysmal atrial fibrillation at outside hospital late 2016 in setting of retroperitoneal bleed with cirrhosis hematoma with small left hemoperitoneum while on aspirin and Coumadin. Aspirin discontinued at that time. Was on amiodarone with no recurrence of A. fib noted. Patient now with hospitalization a few weeks ago with A. fib with RVR with rate control strategy during that hospital stay. Patient now readmitted with A. fib with RVR. Received digoxin IV load by primary service. Remains on beta halle. Currently A. fib in the 90s to 100s upon evaluation. Remains anticoagulated with Coumadin be managed by [facility]. Per discussion with Dr. Teddy Fierro, will initiate sotalol 80 mg by mouth twice a day and monitor ECGs. Patient reevaluated now in sinus rhythm in the 80s. (2) Acute blood loss anemia Current Visit: No Status: Acute Per Cardiology: Again on Coumadin being managed by [facility]. INR supratherapeutic upon arrival. Hemoglobin now down from 13-10. Coumadin on hold. Continue to monitor for any active bleeding or blood loss. Resume Coumadin when able. (3) Acute and chronic respiratory failure Current Visit: No Status: Acute Per Cardiology: Pulmonology and ID consult pending. Qualifiers: Respiratory failure complication: hypoxia Qualified Code(s): J96.21 - Acute and chronic respiratory failure with hypoxia (4) CAD (coronary artery disease) Current Visit: No Status: Chronic Per Cardiology: Known history of CAD with CABG 3 including the clinic in 2007 with negative stress test September 2013. Last echo September 2016 showed EF 65-70%, no segment wall motion abnormalities, mild diastolic dysfunction, normal RV size and function, severe dilated left atrium, chemical mitral valve with normal function. Chest pain-free. Troponin negative 1. Qualifiers: Coronary Disease-Associated Artery/Lesion type: [place] artery [place] vs. transplanted heart: [place] heart Associated angina: without angina Qualified Code(s): I25.10 - Atherosclerotic heart disease of [place] coronary artery without angina pectoris (5) Supratherapeutic INR Current Visit: No Status: Acute Per Cardiology: Present with supratherapeutic INR. Coumadin on hold. Denies any active bleeding and blood loss. Continue to monitor closely. (6) H/O mitral valve replacement with mechanical valve Current Visit: No Status: Chronic Per Cardiology: Again history of mechanical mitral valve with normal function on echo September 2016. Coumadin will need to be resumed once INR improves. Discussion w patient/family: The assessment and plan as outlined above was discussed with the patient and/or family members who expressed understanding and agreement. All questions were answered. Thank you for involving us in the care of your patient. Please call with any questions. History of Present Illness Consult date: 02/02/17 Consult reason: afib Chief complaint: fast HR History of present illness: Ms. Dewitt is a 71 year old female with a relevant past medical history of CAD with CABG 3 at [facility] in 2007 and mechanical mitral valve replacement on Coumadin being managed by [facility], history of paroxysmal atrial fibrillation late 2015 at outside facility in setting of retroperitoneal bleed with acute blood loss anemia requiring transfusion with short-term use of amiodarone, COPD, emphysema, hypertension, pulmonary hypertension, objective sleep apnea, restless leg syndrome, history of CHF. Patient has had multiple hospitalizations over the past year for COPD exacerbations, pneumonia, and influenza. Patient reports pending repeat bronchoscopy with pulmonology in the future. Also reports pending ID consult during this hospitalization. Patient recently seen by cardiology team during hospitalization a few weeks ago with recurrent A. fib with RVR. At that time rate control strategy implemented and continued with anticoagulation. Patient scheduled for follow-up with myself next week for hospital follow-up. Patient seen today with at bedside. She reports since discharge to home intermittent episodes of rapid heart rates. She reports over the past few days episodes of heart rates in the 110s to 120s and yesterday was elevated in the 140s to 150s. She reports compliance with medications. She reports she is on Coumadin managed by [facility] denies any active bleeding or blood loss. She reports worsening shortness of breath at rest and with exertion over the past few days as well. Denies any fever, chills, nausea, vomiting, diarrhea. Past Med Surg Social Fam HX - Past Medical History Attestation: Yes The following information was validated with the patient. Source: patient, old records reviewed, obtained from family Medical history: arthritis, atrial fibrillation, cardiomyopathy, CHF, COPD, fibromyalgia, hypertension, myocardial infarction, osteoporosis, RA, other Psychiatric history: no psych history - Past Surgical History Surgical History: angioplasty/stent, cholecystectomy, coronary bypass (CABG), heart valve replacement, orthopedic, other - Social History Smoking Status: Former smoker Smokeless Tobacco Status: No Alcohol use: none Drug use: none - Family History Father Living Status: Hx Family Cardiac Disorders: Yes (open heart surgery) Hx Family Respiratory Disorders: No Hx Family Cancer: Yes (Liver cancer w/ mets) Hx Family GI Disorders: No Hx Family Endocrine Disorder: No Hx Family Neuromuscular Disorders: No Hx Family Neurologic Disorders: No Hx Family HEENT Disorders: No Hx Family Autoimmune Disorders: No Mother Living Status: Hx Family Cardiac Disorders: No Hx Family Respiratory Disorders: Yes Hx Family Cancer: Yes (bone, lung) Hx Family GI Disorders: No Hx Family Endocrine Disorder: No Hx Family Neuromuscular Disorders: No Hx Family Neurologic Disorders: No Hx Family HEENT Disorders: No Hx Family Autoimmune Disorders: No Medications and Allergies Albuterol Sulfate [Albuterol Inhaler] 1 - 2 puff IH Q4HR PRN 11/24/15 [History] Allopurinol [Zyloprim 100 MG] 100 mg PO DAILY 11/24/15 [History] Budesonide/Formoterol 160/4.5 [Symbicort 160/4.5] 2 puff IH BIDR 11/24/15 [ History] Calcium Carbonate [Calcium] 500 mg PO BID 11/24/15 [History] Cholecalciferol (D-3) [Vitamin D] 2,000 unit PO DAILY 11/24/15 [History] Fluticasone Propionate Nasal [Flonase] 1 spray NS DAILY 11/24/15 [History] Gabapentin [Neurontin] 200 mg PO HS 11/24/15 [History] Loratadine [Claritin] 10 mg PO DAILY 11/24/15 [History] Metoprolol XL (24 HR) Succ [Toprol Xl] 12.5 mg PO BID 11/24/15 [History] Montelukast [Singulair] 10 mg PO DAILY 11/24/15 [History] Nitroglycerin [Nitrostat] 0.4 mg SL Q5M PRN 11/24/15 [History] Nortriptyline [Pamelor] 10 mg PO HS 11/24/15 [History] Roflumilast [Daliresp] 500 mcg PO DAILY 05/22/16 [History] Vitamin B Complex [B Complex] 1 tab PO DAILY 11/24/15 [History] Umeclidinium [place] [Incruse Ellipta] 1 puff IH DAILY 12/17/15 [History] Atorvastatin [Lipitor] 10 mg PO HS 01/01/16 [History] Albuterol Neb [Proventil Neb] 2.5 mg IH Q4HR PRN 08/25/16 [History] Bifidobacterium Infantis [Align] 4 mg PO DAILY 08/25/16 [History] Oxygen 2 l IN CONT #1 each 08/26/16 [Rx] Tramadol HCl 50 - 100 mg PO QID PRN 09/13/16 [History] Esomeprazole [place] [Nexium] 40 mg PO DAILY #30 capsule. 10/03/16 [Rx] Furosemide [Lasix] 40 mg PO BID #60 tablet 10/03/16 [Rx] Acetylcysteine [Y-Daemqd-u-Cysteine] 600 mg PO BID 10/08/16 [History] Warfarin [Coumadin] 2.5 mg PO FRSA 01/18/17 [History] Warfarin [Coumadin] 5 mg PO SUWE 01/18/17 [History] Warfarin [Coumadin] 7.5 mg PO TUTH 01/18/17 [History] Diltiazem CD (24hr) [Cardizem CD] 180 mg PO DAILY #30 01/22/17 [Rx] Potassium Chloride [K-Tab ER] 30 meq PO DAILY 02/01/17 [History] predniSONE [PredniSONE] See Taper PO TAPER 02/01/17 [History] Allergies ceftriaxone [From Rocephin] Allergy (Severe, Verified 01/18/17 09:26) Hives ciprofloxacin [From Cipro HC] Allergy (Severe, Verified 01/18/17 09:26) Hives levofloxacin [From Levaquin] Allergy (Severe, Verified 01/18/17 09:26) Hives hydrocortisone [From Cipro HC] Allergy (Intermediate, Verified 01/18/17 09:26) Hives vancomycin Allergy (Mild, Verified 01/18/17 09:26) Rash Spoke with ID from [facility], in 2007 presented with skin rash which was subsequently attributed to either vancomycin, amiodarone, or another medicine as all other causes were ruled out. Important to note this was recorded as a rash and not hives, trouble breathing, etc. All Systems Review: A 10-system review of systems was performed and is negative for pertinent findings except as documented above in the HPI. - Constitutional Constitutional: fatigue - Cardiovascular Cardiovascular: as per HPI, dyspnea at rest, dyspnea on exertion, irregular heart rhythm, palpitations, rapid heart rate - Respiratory Respiratory: cough, dyspnea, wheezing Physical Examination Vital Signs, Last 4 Hours Temp Pulse Resp BP Pulse Ox 02/02/17 12:13 98.1 F 105 18 144/80 92 General: Conversant, No Apparent Distress HEENT: Atraumatic, Normocephaly, Mucus Membranes Moist Neck: No JVD, Normal carotid pulses Cardiac: Normal S1 and S2, No Murmur, Other (Irregular rate and rhythm) Lungs: Other (Expiratory wheezes noted, diminished breath sounds throughout, respirations mildly labored at rest and with conversation) Neuro: Alert and responsive, No focal deficits noted Abdomen: Soft, Non-Tender Skin: No rashes noted on visualized skin Musculoskeletal: No Chest Wall Tenderness Extremities: No Clubbing, No Cyanosis, No Edema, Normal Pulses Results 02/02/17 05:39 02/02/17 05:39 Lab Results - Imaging and Cardiology Chest Xray: report reviewed Stress Test: report reviewed Echo: report reviewed - EKG Interpretation EKG results cardiology: personally reviewed (afib RVR 160's), other (afib 90-100 's on tele) Consult Discharge Plan - Plan Referrals: Christoph Hughes DO [Primary Care Provider] -
--- NOTE | 2017-02-02 15:26 | Electrocardiograph Report ---
[address] [address] Test Date: 2017-02-01 Pat Name: Yasmeen Dewitt Department: 102 Room: [facility] Gender: F Drilling Manager: Tamie : 1945 Requested By: Janneth See Order Number: [id number] Reading MD: Lori Fierro Measurements Intervals [facility] Rate: 164 P: ND: 0 QRS: 67 QRSD: 70 T: 0 QT: 255 QTc: 345 Interpretive Statements Atrial fibrillation with rapid ventricular response MODERATE ST DEPRESSION [0.05+ mV ST DEPRESSION] Electronically Signed On 02-02-2017 15:24:55 EDT by Lori Fierro
[2017-02-02] MEDS: Ipratropium/Albuterol Neb 3 ML IH SCH ×2 (16:10→22:17)
[2017-02-02] MEDS: Levalbuterol Neb 1.25 MG/3 ML IH SCH ×2 (16:12→22:44)
[2017-02-02] MEDS: MethylPREDNISolone 40 MG/ML VIAL IVP SCH (16:35)
[2017-02-02] MEDS: Gabapentin 100 MG CAPSULE PO SCH (21:01)
[2017-02-02] MEDS: traMADol 50 MG TABLET PO PRN (21:14)
[2017-02-03] MEDS: MethylPREDNISolone 40 MG/ML VIAL IVP SCH ×4 (00:36→22:46)
[2017-02-03] MEDS: Piperacillin/Tazobactam 3.375 GM in D5% in Water (Mini-Bag+) 100 ML IVPB SCH ×3 (00:36→16:29)
[2017-02-03] MEDS: Ipratropium/Albuterol Neb 3 ML IH SCH ×4 (01:07→10:23)
[2017-02-03] MEDS: Levalbuterol Neb 1.25 MG/3 ML IH SCH ×4 (04:44→22:10)
[2017-02-03] MEDS: Acetylcysteine 10% 2 ML INHSOL IH SCH ×4 (04:44→22:10)
[2017-02-03 05:16] LABS: Hematocrit 35.6 % (35.3-44.9); Immature Granulocytes % 0.6 % (0-4); Lymphocytes # 0.6 K/mcL (0.6-4.6); Lymphocytes % 6.9 %; Mean Corpuscular HGB Conc 30.9 g/dL (31.6-35.5); Mean Corpuscular Hemoglobin 25.3 pg (28.0-33.3); Mean Corpuscular Volume 81.8 fL (83.0-100.0); Mean Platelet Volume 10.7 fL (9.4-12.4); Monocytes # 0.2 K/mcL (0.0-1.3); Monocytes % 2.1 %; Neutrophils # 7.3 K/mcL (1.6-8.9); Platelet Count 172 K/mcL (140-400); Red Blood Count 4.35 M/mcL (3.82-4.97); Red Cell Distribution Width 16.1 % (11.5-14.5); Segmented Neutrophils % 90.4 %
[2017-02-03 05:20] LABS: INR 2.4; Prothrombin Time 26.6 Seconds (9.4-12.1)
--- NOTE | 2017-02-03 08:17 | Infectious Disease Progress No ---
Date of Encounter: 02/03/17 Time of Encounter: 08:16 - Assessment and Plan (1) Hospital-acquired pneumonia Current Visit: No Status: Acute Patient with severe COPD on home oxygen who has severe emphysema noted on the CT chest from November 2016 and has been having worsening shortness of breath, dyspnea on exertion, and palpitations. Patient was admitted here four times this year, the most recent time was in January where she was noted to have pneumonia. Patient's previous sputum culture were positive for Stenotrophomonas maltophilia that is resistant to ceftazidime and resistant to levofloxacin. Patient was started with Bactrim. Patient states she went home and she did not feel any better with Bactrim. Patient came back to the hospital where she finished a course of Bactrim and was on high dose steroids and continued to not feel better. Patient was discharged in a few days later and came back with continued shortness of breath and A. fib with RVR. Differential diagnosis for infiltrates on the left base includes active pneumonia, malignancy, pleural effusion or fibrosis. 02/02/17 CT chest without contrast reveals interval development of small right pleural effusion with increased dense consolidation in the right lower lobe, most compatible with pneumonia. Set opacification of basilar segmental bronchi suggesting mucous secretions and/or aspiration. Mediastinal and right hilar adenopathy is identified; the right hilar adenopathy is confluent with very dense perihilar masslike consolidation. Underlying neoplasm should be considered. Blood cultures collected 02/01/17 reveal no growth to date Sputum cultures collected 02/01/17 reveal normal upper respiratory tract brenda Currently on Bactrim DS PO BID and Zosyn 3.375mg IV q8h since 02/02/17 Recommendations: Bronchoscopy on 01/11/17 revealed atypical cells, suspicious for malignancy on right middle lobe, bronchoalveolar lavage and CT chest 02/02/17 suggests underlying neoplasm should be considered. Pulmonary consulted, Dr. Siddiqi was supposed to see the patient in clinic in the next day or 2 to schedule a bronchoscopy. He might want to perform a bronchoscopy while she still here. I'm not sure what we are treating right now, consider either stopping all antibiotics or continue Bactrim and Zosyn until Dr. Siddiqi evaluates the patient. Overall prognosis is very poor based on her pulmonary function. We'll continue to follow closely. Monitor renal function/ labs for drug toxicity, will renally adjust antibiotic dose as needed. (2) Failure of outpatient treatment Current Visit: No Status: Acute Patient has been admitted multiple times since October 2016 for pneumonia and was previously treated with Doxycycline, Bactrim, and Zosyn. Patient reports she has very limited IV access and required new port placement by IR on 01/04/17. Bronchoscopy completed on 01/10/17 confirmed growth of persistent Stenotrophomonas maltophilia found on sputum culture as far back as 10/10/2016. She was most recently discharged on 01/12/17 with Bactrim DS to finish total 14 -day course of treatment for pneumonia. (3) Acute exacerbation of chronic obstructive pulmonary disease (COPD) Current Visit: No Status: Acute Current management per primary team: Solu-Medrol, Bactrim, Zosyn Duonebs, Mucinex (4) Mucus plugging of bronchi Current Visit: No Status: Chronic See above. Pulmonology following (5) Atrial flutter with rapid ventricular response Current Visit: Yes Status: Chronic Heart rate currently controlled on sotalol. Cardiology following - Subjective Interval history: Patient seen and examined. Patient is sitting up at bedside eating breakfast and reports no acute events overnight. Her fecal occult blood test was positive and her INR has decreased from 5.1 to 2.4. Her heart rate is currently between 70 - 80 on Sotalol. Patient is requiring less supplemental oxygen today and is currently on 3L O2 via [place]. Her baseline O2 requirement is 2L. She reports yellow sputum production and denies fever, chills, CP, worsening SOB, abd pain, N/V/D/C, dysuria, or leg edema. Family is not present during the time of exam. Infect Dis PN-Objective Data - Labs CBC & Chem 7: 02/04/17 04:55 02/04/17 04:55 Labs: Laboratory Results - last 24 hr 02/03/17 02/03/17 02/03/17 00:45 03:58 03:58 WBC 8.1 RBC 4.35 Hgb 11.0 L Hct 35.6 MCV 81.8 L MCH 25.3 L MCHC 30.9 L RDW 16.1 H Plt Count 172 MPV 10.7 Immature Gran % 0.6 Seg Neutrophils % 90.4 Lymphocytes % 6.9 Monocytes % 2.1 Eosinophils % 0.0 Basophils % 0.0 Neutrophils # 7.3 Lymphocytes # 0.6 Monocytes # 0.2 Eosinophils # 0.0 Basophils # 0.0 PT 26.6 H D INR 2.4 D Stool Occult Blood Positive A Cultures: Cultures 02/01/17 23:52 Sputum Culture - Preliminary Sputum Serology 02/03/17 Range/Units 00:45 Stool Occult Blood Positive A (Negative) - Impressions Impressions Chest CT 02/02/17 18:30 IMPRESSION: Interval development of small right pleural effusion with increased dense consolidation in the right lower lobe, most compatible with pneumonia. Set opacification of basilar segmental bronchi suggesting mucous secretions and/or aspiration. Mediastinal and right hilar adenopathy is identified; the right hilar adenopathy is confluent with very dense perihilar masslike consolidation. Underlying neoplasm should be considered. Follow-up to complete resolution or PET-CT would be helpful to further evaluate. D/ / Norma Burnett Cha, MD / Norma Burnett Cha, MD Interpreting Provider: Nroma Burnett Cha, MD Exam - Constitutional Vitals: Temp Pulse Resp BP Pulse Ox 98.1 F 77 16 115/68 96 02/03/17 07:53 02/03/17 07:53 02/03/17 07:53 02/03/17 07:53 02/03/17 07:53 General appearance: cooperative, no acute distress, no febrile, no obese - Head Head exam: Present: atraumatic, normal inspection, normocephalic - Eye Eye exam: Present: PERRL, conjuntiva pink - ENT ENT exam: Present: mucous membranes moist, normal oropharynx - Neck Neck exam: Present: normal inspection. Absent: lymphadenopathy, tenderness, thyromegaly - Respiratory Respiratory exam: Present: decreased breath sounds, prolonged expiratory phase, wheezes (Right lower lobe) - Cardiovascular Cardiovascular exam: Present: RRR, +S1, +S2. Absent: diastolic murmur, systolic murmur Additional comments: Port-A-Cath present right upper chest - GI/Abdominal GI/Abdominal exam: Present: normal bowel sounds, soft. Absent: distended, guarding, organomegaly, tenderness - Extremities Exam Extremities exam: Present: normal inspection. Absent: pedal edema, tenderness - Neurological Exam Neurological exam: Present: alert, altered, oriented X3. Absent: motor sensory deficit, no focal deficits - Psychiatric Psychiatric exam: Present: flat affect, normal affect - Skin Skin exam: Present: dry, normal color, warm. Absent: erythema, pallor Additional comments: Port-A-Cath present right upper chest with no surrounding erythema Consult Discharge Plan - Plan Referrals: Christoph Hughes DO [Primary Care Provider] - - Attending Attestation I examined this patient and my medical decision-making was reviewed with the Resident Physician. I agree with the documented findings, disposition and treatment plan as described except to the extent set forth below. Patient has been seen by Dr. kay mac. Awaiting pulmonary evaluation and recommendations.
[2017-02-03] MEDS: Metoprolol XL (24 HR) Succ 25 MG TAB.ER.24H PO SCH (09:53)
[2017-02-03] MEDS: Sulfamethoxazole/Trimeth DS 1 EACH TABLET PO SCH (10:42)
[2017-02-03] MEDS: Cholecalciferol (D-3) 1,000 UNIT TABLET PO SCH (10:42)
[2017-02-03] MEDS: Loratadine 10 MG TABLET PO SCH (10:43)
[2017-02-03 10:55] LABS: Calcium 9.4 mg/dL (8.6-10.8); Potassium 3.9 mEq/L (3.5-4.5)
--- NOTE | 2017-02-03 11:27 | Cardiology Progress Note ---
Date of Encounter: 02/03/17 Time of Encounter: 10:00 Assessment and Plan (1) Atrial fibrillation with RVR Current Visit: No Status: Acute Per Cardiology: History of paroxysmal atrial fibrillation at outside hospital late 2016 in setting of retroperitoneal bleed with cirrhosis hematoma with small left hemoperitoneum while on aspirin and Coumadin. Aspirin discontinued at that time. Was on amiodarone with no recurrence of A. fib noted. Patient now with hospitalization a few weeks ago with A. fib with RVR with rate control strategy during that hospital stay. Patient now readmitted with A. fib with RVR. Received digoxin IV load by primary service. Per discussion with Dr. Teddy Fierro, on sotalol 80 mg by mouth twice a day and monitor ECGs. Currently sinus rhythm in the 70s and 80s on telemetry. Upon review medications sotalol dose last night held by primary service due to concerns of hypotension. Will discontinue Toprol. Per discussion with Dr. Teddy Fierro, will continue with sotalol and please do not hold unless directed by cardiology. QT/QTc baseline 331/382 ms and current ECG 388/413 ms. We'll continue to monitor ECGs and adjust sotalol accordingly. Remains anticoagulated with Coumadin be managed by [facility]. Supratherapeutic INR now improved to 2.4. Patient has mechanical mitral valve and atrial fibrillation. Target INR 2.5-3.5. H&H slightly downward trend, however stable. Concern for dark tarry stool this morning with occult stool positive. Unfortunately, Coumadin needs to be resumed due to her mechanical mitral valve. Will continue. May need heparin drip bridging if INR becomes subtherapeutic. Continue to monitor closely for any significant bleeding or blood loss. Recommend consideration for GI evaluation. Discussed and reviewed with Dr. Teddy Fierro. (2) H/O mitral valve replacement with mechanical valve Current Visit: No Status: Chronic Per Cardiology: Again history of mechanical mitral valve with normal function on echo September 2016. Anticoagulation as above. (3) Acute blood loss anemia Current Visit: No Status: Acute Per Cardiology: Again, on Coumadin being managed by [facility]. See above. (4) Acute and chronic respiratory failure Current Visit: No Status: Acute Per Cardiology: Pulmonology consult pending. ID following. Qualifiers: Respiratory failure complication: hypoxia Qualified Code(s): J96.21 - Acute and chronic respiratory failure with hypoxia (5) CAD (coronary artery disease) Current Visit: No Status: Chronic Per Cardiology: Known history of CAD with CABG 3 including the clinic in 2007 with negative stress test September 2013. Last echo September 2016 showed EF 65-70%, no segment wall motion abnormalities, mild diastolic dysfunction, normal RV size and function, severe dilated left atrium, chemical mitral valve with normal function. Chest pain-free. Troponin negative 1. Qualifiers: Coronary Disease-Associated Artery/Lesion type: [place] artery [place] vs. transplanted heart: [place] heart Associated angina: without angina Qualified Code(s): I25.10 - Atherosclerotic heart disease of [place] coronary artery without angina pectoris Discussion w patient/family: The assessment and plan as outlined above was discussed with the patient and/or family members who expressed understanding and agreement. All questions were answered. Thank you for involving us in the care of your patient. Please call with any questions. Subjective Principal diagnosis: Afib Interval history: Patient reports improvement in palpitations and chest tightness. She reports her shortness of breath at rest remains about baseline. She reports a brief episode of coughing up some bright red blood which is now resolved. Reports dark tarry stool this morning. Prior to admission denies any awareness to active bleeding or blood loss. Objective Vital Signs, Last 4 Hours Temp Pulse Resp BP Pulse Ox 02/03/17 10:23 18 94 02/03/17 07:53 98.1 F 77 16 115/68 96 General: Conversant, No Apparent Distress HEENT: Atraumatic, Normocephaly, Mucus Membranes Moist Neck: No JVD, Normal carotid pulses Cardiac: Reg Rate and Rhythm, Normal S1 and S2, No Murmur Lungs: Other (Diminished breath sounds throughout) Neuro: Alert and responsive, No focal deficits noted Abdomen: Soft, Non-Tender Skin: No rashes noted on visualized skin Musculoskeletal: No Chest Wall Tenderness Extremities: No Clubbing, No Cyanosis, Normal Pulses, Other (+1 nonpitting edema to bilateral lower extremities) Results 02/03/17 03:58 02/03/17 10:30 Lab Results Laboratory Tests 02/01/17 02/01/17 02/01/17 16:58 16:58 16:58 Hgb 13.0 Hct 41.2 INR 4.7 H* Potassium Creatinine Est GFR (Non-Af Amer) Troponin I TSH 1.510 Stool Occult Blood 02/01/17 02/02/17 02/02/17 16:58 05:39 05:39 Hgb 10.6 L D Hct 33.7 L INR 5.1 H* Potassium Creatinine Est GFR (Non-Af Amer) Troponin I 0.01 TSH Stool Occult Blood 02/03/17 02/03/17 02/03/17 00:45 03:58 03:58 Hgb 11.0 L Hct 35.6 INR 2.4 D Potassium Creatinine Est GFR (Non-Af Amer) Troponin I TSH Stool Occult Blood Positive A 02/03/17 10:30 Hgb Hct INR Potassium 3.9 Creatinine 1.29 H Est GFR (Non-Af Amer) 41 L Troponin I TSH Stool Occult Blood Impressions Chest CT 02/02/17 18:30 IMPRESSION: Interval development of small right pleural effusion with increased dense consolidation in the right lower lobe, most compatible with pneumonia. Set opacification of basilar segmental bronchi suggesting mucous secretions and/or aspiration. Mediastinal and right hilar adenopathy is identified; the right hilar adenopathy is confluent with very dense perihilar masslike consolidation. Underlying neoplasm should be considered. Follow-up to complete resolution or PET-CT would be helpful to further evaluate. D/ / Norma Burnett Cha, MD / Norma Burnett Cha, MD Interpreting Provider: Norma Burnett Cha, MD Intake & Output 01/31/17 02/01/17 02/02/17 02/03/17 23:59 23:59 23:59 23:59 Intake Total 100 / 100 640 / 640 340 / 340 Output Total 300 / 300 1500 / 1500 Balance 100 / 100 340 / 340 -1160 / -1160 Weight 59.3 kg 59.3 kg Active Medications Acetylcysteine (Acetylcysteine 10%) 2 ml IH [id number] [facility] Stop: 08/03/17 22:01 Last Admin: 02/03/17 10:23 Dose: 2 ml Albuterol/Ipratropium (Duoneb) 3 ml IH [id number] [facility] Stop: 08/04/17 16:01 Last Admin: 02/03/17 10:23 Dose: Not Given Allopurinol (Zyloprim) 100 mg PO DAILY [facility] Stop: 08/04/17 09:01 Last Admin: 02/03/17 10:44 Dose: 100 mg Atorvastatin Calcium (Lipitor) 10 mg PO HS [facility] Stop: 08/03/17 21:01 Last Admin: 02/02/17 21:01 Dose: 10 mg Calcium Carbonate (Tums) 500 mg PO BID [facility] Stop: 08/03/17 21:01 Last Admin: 02/03/17 10:43 Dose: 500 mg Gabapentin (Neurontin) 200 mg PO HS [facility] Stop: 08/03/17 21:01 Last Admin: 02/02/17 21:01 Dose: 200 mg Guaifenesin (Mucinex) 1,200 mg PO BID [facility] Stop: 08/04/17 21:01 Last Admin: 02/03/17 10:43 Dose: 1,200 mg Piperacillin Sod/Tazobactam (Sod 3.375 gm/ Dextrose) 100 mls @ 25 mls/hr IVPB Q8HR [facility] Stop: 08/05/17 00:01 Last Admin: 02/03/17 10:43 Dose: 25 mls/hr Levalbuterol HCl (Xopenex) 1.25 mg IH [id number] [facility] Stop: 08/04/17 16:01 Last Admin: 02/03/17 10:22 Dose: 1.25 mg Loratadine (Claritin) 10 mg PO DAILY [facility] PRN Reason: Protocol Stop: 08/04/17 09:01 Last Admin: 02/03/17 10:43 Dose: 10 mg Methylprednisolone (Solu-Medrol) 40 mg IVP Q8H [facility] Stop: 08/04/17 14:31 Last Admin: 02/03/17 06:41 Dose: 40 mg Montelukast Sodium (Singulair) 10 mg PO DAILY [facility] Stop: 08/04/17 09:01 Last Admin: 02/03/17 10:43 Dose: 10 mg Naloxone HCl (Narcan) 0.4 mg IVP Q2MIN PRN PRN Reason: Opioid Reversal Stop: 08/03/17 20:46 Nortriptyline HCl (Pamelor) 10 mg PO HS [facility] Stop: 08/03/17 21:01 Last Admin: 02/02/17 21:01 Dose: 10 mg Omeprazole (Prilosec) 40 mg PO DAILY [facility] Stop: 08/04/17 09:01 Last Admin: 02/03/17 10:43 Dose: 40 mg Potassium Chloride (Potassium Chloride) 40 meq PO DAILY [facility] Stop: 08/04/17 14:31 Last Admin: 02/03/17 10:43 Dose: 40 meq Sotalol HCl (Betapace) 80 mg PO Q12H [facility] Stop: 08/04/17 12:01 Last Admin: 02/03/17 10:43 Dose: 80 mg Tramadol HCl (Ultram) 50 mg PO QID PRN PRN Reason: Moderate Pain Stop: 08/03/17 21:56 Last Admin: 02/02/17 21:14 Dose: 50 mg Trimethoprim/Sulfamethoxazole (Bactrim Ds) 1 each PO BID [facility] Stop: 08/04/17 09:01 Last Admin: 02/03/17 10:42 Dose: 1 each Vitamin D (Vitamin D) 1,000 unit PO DAILY [facility] Stop: 08/04/17 09:01 Last Admin: 02/03/17 10:42 Dose: 1,000 unit Warfarin Sodium (Coumadin Perpt) 1 each PO DAILY@1800 PRN PRN Reason: SEE COMMENTS Stop: 08/05/17 18:01 - EKG Interpretation EKG results cardiology: other (Tele shows avg HR 78, SR) Consult Discharge Plan - Plan Referrals: Christoph Hughes DO [Primary Care Provider] -
[2017-02-03] MEDS ORDERED: *HR* Heparin 5,000 UNIT/ML VIAL IVP ONE (12:51)
[2017-02-03] MEDS ORDERED: *HR* Heparin 5,000 UNIT/ML VIAL IVP PRN ×2 (12:51)
[2017-02-03] MEDS ORDERED: Ipratropium/Albuterol Neb 3 ML IH PRN (13:30)
[2017-02-03] MEDS: Heparin 25,000 UNIT/500 ML D5W 25,000 UNIT/500 ML MLS IVC SCH (13:43)
[2017-02-03] MEDS: Ipratropium Neb 0.5 MG NEBULIZER IH SCH ×2 (15:43→22:10)
--- NOTE | 2017-02-03 17:34 | Internal Med Progress Note ---
Date of Encounter: 02/03/17 Time of Encounter: 17:27 - Assessment and plan (1) Pneumonia Current Visit: Yes Status: Acute Qualifiers: Pneumonia type: due to other aerobic Gram-negative bacteria Laterality: right Lung location: lower lobe of lung Qualified Code(s): J15.6 - Pneumonia due to other aerobic Gram-negative bacteria (2) Diastolic CHF Current Visit: Yes Status: Chronic Qualifiers: Congestive heart failure chronicity: chronic Qualified Code(s): I50.32 - Chronic diastolic (congestive) heart failure (3) CKD (chronic kidney disease) stage 3, GFR 30-59 ml/min Current Visit: Yes Status: Chronic (4) COPD exacerbation Current Visit: Yes Status: Acute (5) Atrial fibrillation with RVR Current Visit: Yes Status: Acute (6) GI bleed Current Visit: Yes Status: Acute Qualifiers: Qualified Code(s): K92.2 - Gastrointestinal hemorrhage, unspecified - Subjective Interval history: Mrs. Chris Dewitt s a 71-year-old female admitted founcontrolled atrial fibrillation. Previously she was tried on beta Blockers and amiodarone. Cardiologyconsulted who have restarted her on sotalol Patient is in sinus rhythm. She has prosthetic mitral valve A. fib and she is on Coumadin with target INR 2.5-3.5. However on admission her INR was 5 therefore Coumadin was put on hold. patient was noted to have right sided consolidation and lymphadenopathy and previous BAL showed atypical cells. Since she planned to have bronchoscopy therefore Coumadin is on hold and per cardiology she will be bridgewith IV heparinin the meantime. Pulmonology was consulted. Apparently she was scheduled to get bronchoscopy as outpatient According o cardiologypractitioner she had ablack tarry stool this morning. Her hemoglobin is only modestly dropped from admission from 13-11 and seems reasonably stable. GI is consulted as this would be a high time to do while she will be off Coumadin. She will be on PPI. this morning and noted that she has bilateral rales and extra dose of IV Lasix given. For her COPD she has been started on IV steroids nebulizers and Mucinex.cardiology has requested to switch her from albuterol to Xopenex. she has left-sided consolidation with effusioni consistent with pneumonia. Previous BAL showed Stenotrophomonas maltophilia. Infectious disease is on case. - Constitutional Vitals: Temp Pulse Resp BP Pulse Ox 97 F L 72 18 122/74 99 02/03/17 15:29 02/03/17 15:29 02/03/17 15:43 02/03/17 15:29 02/03/17 15:43 General appearance: Present: A&O X 3, answers questions appropriately - Head Head exam: Present: atraumatic, normocephalic - Eye Eye exam: Present: PERRL, conjuntiva pink, sclera anicteric Pupils: Present: PERRL - Neck Neck exam general surgery: Present: supple, trachea midline. Absent: lymphadenopathy - Respiratory Respiratory exam: Present: CTAB. Absent: accessory muscle use, rales, rhonchi, wheezes Additional comments: left basal Ralesand breath sounds are shallowscattered wheezing - Cardiovascular Cardiovascular exam: Present: RRR, +S1, +S2. Absent: diastolic murmur, gallop, rubs, systolic murmur - GI/Abdominal GI/Abdominal exam: Present: normal bowel sounds, soft, no peritoneal signs. Absent: distended, tenderness - Extremities Exam Extremities exam: Present: warm, radial pulses palpable and symetrical. Absent : calf tenderness, cyanotic, pedal edema - Neurological Exam Neurological exam: Present: CN II-XII intact, oriented X3, no focal deficits. Absent: pronater drift, facial droop, speech deficit - Skin Skin exam: Present: dry, intact Internal Medicine: Result - Labs CBC & Chem 7: 02/03/17 03:58 02/03/17 10:30 Labs: Short CBC 02/03/17 Range/Units 03:58 WBC 8.1 (4.3-11.1) K/mcL Hgb 11.0 L (11.5-15.4) g/dL Hct 35.6 (35.3-44.9) % Plt Count 172 (140-400) K/mcL Neutrophils # 7.3 (1.6-8.9) K/mcL BMP 02/03/17 10:30 Sodium 137 Potassium 3.9 Chloride 102 Carbon Dioxide 28 BUN 34 H D Creatinine 1.29 H Glucose 168 H Calcium 9.4 - ABG Interpretation ABG results: PT/INR, D-dimer PT 26.6 Seconds (9.4-12.1) H D 02/03/17 03:58 - Impressions Impressions Chest CT 02/02/17 18:30 IMPRESSION: Interval development of small right pleural effusion with increased dense consolidation in the right lower lobe, most compatible with pneumonia. Set opacification of basilar segmental bronchi suggesting mucous secretions and/or aspiration. Mediastinal and right hilar adenopathy is identified; the right hilar adenopathy is confluent with very dense perihilar masslike consolidation. Underlying neoplasm should be considered. Follow-up to complete resolution or PET-CT would be helpful to further evaluate. D/ / Norma Burnett Cha, MD / Norma Burnett Cha, MD Interpreting Provider: Norma Burnett Cha, MD Consult Discharge Plan - Plan Referrals: Christoph Hughes DO [Primary Care Provider] -
--- NOTE | 2017-02-03 17:45 | Internal Med Progress Note ---
Date of Encounter: 02/03/17 (late entry) Time of Encounter: 17:44 (late entry) - Assessment and plan (1) Pneumonia Current Visit: Yes Status: Acute Qualifiers: Pneumonia type: due to other aerobic Gram-negative bacteria Laterality: right Lung location: lower lobe of lung Qualified Code(s): J15.6 - Pneumonia due to other aerobic Gram-negative bacteria (2) Diastolic CHF Current Visit: Yes Status: Chronic Qualifiers: Congestive heart failure chronicity: chronic Qualified Code(s): I50.32 - Chronic diastolic (congestive) heart failure (3) CKD (chronic kidney disease) stage 3, GFR 30-59 ml/min Current Visit: Yes Status: Chronic (4) COPD exacerbation Current Visit: Yes Status: Acute (5) Atrial fibrillation with RVR Current Visit: Yes Status: Acute - Subjective Interval history: Mrs. Chris Dewitt s a 71-year-old female admitted founcontrolled atrial fibrillation. Previously she was tried on beta Blockers and amiodarone. Cardiologyconsulted who have restarted her on sotalol Patient is in sinus rhythm. She has prosthetic mitral valve A. fib and she is on Coumadin with target INR 2.5-3.5. However on admission her INR was 5 therefore Coumadin was put on hold. patient was noted to have right sided consolidation and lymphadenopathy and previous BAL showed atypical cells. Since she planned to have bronchoscopy therefore Coumadin is on hold and per cardiology she will be bridgewith IV heparinin the meantime. Pulmonology was consulted. Apparently she was scheduled to get bronchoscopy as outpatient According o cardiologypractitioner she had ablack tarry stool this morning. Her hemoglobin is only modestly dropped from admission from 13-11 and seems reasonably stable. GI is consulted as this would be a high time to do while she will be off Coumadin. She will be on PPI. she has left-sided consolidation with effusioni consistent with pneumonia. Previous BAL showed Stenotrophomonas maltophilia. Infectious disease is on case. - Constitutional Vitals: Temp Pulse Resp BP Pulse Ox 97 F L 72 18 122/74 99 02/03/17 15:29 02/03/17 15:29 02/03/17 15:43 02/03/17 15:29 02/03/17 15:43 General appearance: Present: A&O X 3, answers questions appropriately - Head Head exam: Present: atraumatic, normocephalic - Eye Eye exam: Present: PERRL, conjuntiva pink, sclera anicteric Pupils: Present: PERRL - Neck Neck exam general surgery: Present: supple, trachea midline. Absent: lymphadenopathy - Respiratory Respiratory exam: Present: decreased breath sounds, CTAB, rales, rhonchi, wheezes. Absent: accessory muscle use - Cardiovascular Cardiovascular exam: Present: RRR, +S1, +S2. Absent: diastolic murmur, gallop, rubs, systolic murmur - GI/Abdominal GI/Abdominal exam: Present: normal bowel sounds, soft, no peritoneal signs. Absent: distended, tenderness - Extremities Exam Extremities exam: Present: warm, radial pulses palpable and symetrical. Absent : calf tenderness, cyanotic, pedal edema - Neurological Exam Neurological exam: Present: CN II-XII intact, oriented X3, no focal deficits. Absent: pronater drift, facial droop, speech deficit - Skin Skin exam: Present: dry, intact Internal Medicine: Result - Labs CBC & Chem 7: 02/03/17 03:58 02/03/17 10:30 Labs: Short CBC 02/03/17 Range/Units 03:58 WBC 8.1 (4.3-11.1) K/mcL Hgb 11.0 L (11.5-15.4) g/dL Hct 35.6 (35.3-44.9) % Plt Count 172 (140-400) K/mcL Neutrophils # 7.3 (1.6-8.9) K/mcL BMP 02/03/17 10:30 Sodium 137 Potassium 3.9 Chloride 102 Carbon Dioxide 28 BUN 34 H D Creatinine 1.29 H Glucose 168 H Calcium 9.4 - ABG Interpretation ABG results: PT/INR, D-dimer PT 26.6 Seconds (9.4-12.1) H D 02/03/17 03:58 - Impressions Impressions Chest CT 02/02/17 18:30 IMPRESSION: Interval development of small right pleural effusion with increased dense consolidation in the right lower lobe, most compatible with pneumonia. Set opacification of basilar segmental bronchi suggesting mucous secretions and/or aspiration. Mediastinal and right hilar adenopathy is identified; the right hilar adenopathy is confluent with very dense perihilar masslike consolidation. Underlying neoplasm should be considered. Follow-up to complete resolution or PET-CT would be helpful to further evaluate. D/ / Norma Burnett Cha, MD / Norma Burnett Cha, MD Interpreting Provider: Norma Burnett Cha, MD Consult Discharge Plan - Plan Referrals: Christoph Hughes DO [Primary Care Provider] -
[2017-02-03] MEDS ORDERED: *HR* Warfarin 5 MG TABLET PO SCH (18:00)
[2017-02-03] MEDS ORDERED: *HR* Warfarin 2.5 MG TABLET PO ONE (18:00)
[2017-02-03] MEDS ORDERED: Warfarin perPT PO PRN (18:00)
--- NOTE | 2017-02-03 20:36 | Electrocardiograph Report ---
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
[2017-02-03 21:06] LABS: Activated Partial Thrombo Time 172.3 Seconds (26.0-36.0)
[2017-02-03 21:13] LABS: Heparin anti-factor XA UFH 0.37 IU/mL (0.30-0.70)
[2017-02-03] MEDS: traMADol 50 MG TABLET PO PRN (21:52)
[2017-02-03] MEDS: Gabapentin 100 MG CAPSULE PO SCH (21:53)
[2017-02-03] MEDS: Sulfamethoxazole/Trimeth SS 1 TAB PO SCH (22:46)
--- NOTE | 2017-02-03 22:53 | Electrocardiograph Report ---
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
[2017-02-04] MEDS: Piperacillin/Tazobactam 3.375 GM in D5% in Water (Mini-Bag+) 100 ML IVPB SCH ×3 (00:46→16:31)
[2017-02-04] MEDS: Levalbuterol Neb 1.25 MG/3 ML IH SCH ×2 (03:59→08:01)
[2017-02-04] MEDS: Ipratropium Neb 0.5 MG NEBULIZER IH SCH ×4 (03:59→08:01)
[2017-02-04] MEDS: Acetylcysteine 10% 2 ML INHSOL IH SCH ×4 (03:59→20:05)
[2017-02-04 05:33] LABS: Basophils % 0.1 %; Hematocrit 36.2 % (35.3-44.9); Hemoglobin 11.3 g/dL (11.5-15.4); Immature Granulocytes % 0.8 % (0-4); Lymphocytes # 0.7 K/mcL (0.6-4.6); Lymphocytes % 4.6 %; Mean Corpuscular HGB Conc 31.2 g/dL (31.6-35.5); Mean Corpuscular Hemoglobin 25.7 pg (28.0-33.3); Mean Corpuscular Volume 82.5 fL (83.0-100.0); Mean Platelet Volume 10.7 fL (9.4-12.4); Monocytes % 4.2 %; Neutrophils # 13.9 K/mcL (1.6-8.9); Platelet Count 210 K/mcL (140-400); Red Blood Count 4.39 M/mcL (3.82-4.97); Red Cell Distribution Width 16.2 % (11.5-14.5); Segmented Neutrophils % 90.3 %
[2017-02-04 05:34] LABS: INR 2.1; Prothrombin Time 22.8 Seconds (9.4-12.1)
[2017-02-04 05:50] LABS: Calcium 9.3 mg/dL (8.6-10.8); Potassium 4.7 mEq/L (3.5-4.5)
[2017-02-04 05:59] LABS: Monocytes # 0.7 K/mcL (0.0-1.3)
[2017-02-04 06:25] LABS: Activated Partial Thrombo Time 103.7 Seconds (26.0-36.0)
[2017-02-04 06:31] LABS: ABG Base Excess 2.4 mEq/L (-2.0 to 3.0); ABG HCO3 27.2 mEQ/L (21-27); ABG Oxygen Saturation 99 % (95-98); ABG PCO2 42 mmHg (35-45); ABG PH 7.42 pH Units (7.32-7.45); ABG PO2 129 mmHg (85-104); ABG TCO2 28.5 mEq/L (20-26); Blood Gas FiO2 32 %; Blood Gas Liter Flow 3 L/MIN
[2017-02-04] MEDS: MethylPREDNISolone 40 MG/ML VIAL IVP SCH ×3 (06:33→21:48)
--- NOTE | 2017-02-04 08:05 | Infectious Disease Progress No ---
Date of Encounter: 02/04/17 Time of Encounter: 08:05 - Assessment and Plan (1) Hospital-acquired pneumonia Current Visit: No Status: Acute Differential diagnosis for infiltrates on the left base includes active pneumonia, malignancy, pleural effusion or fibrosis. 02/02/17 CT chest without contrast reveals interval development of small right pleural effusion with increased dense consolidation in the right lower lobe, most compatible with pneumonia. Set opacification of basilar segmental bronchi suggesting mucous secretions and/or aspiration. Mediastinal and right hilar adenopathy is identified; the right hilar adenopathy is confluent with very dense perihilar masslike consolidation. Underlying neoplasm should be considered. Blood cultures collected 02/01/17 reveal no growth to date Sputum cultures collected 02/01/17 reveal gram positive cocci WBC 15.4, but patient is currently on Solumedrol Currently on Bactrim DS PO BID and Zosyn 3.375mg IV q8h since 02/02/17 Recommendations: Bronchoscopy on 01/11/17 revealed atypical cells, suspicious for malignancy on right middle lobe, bronchoalveolar lavage and CT chest 02/02/17 suggests underlying neoplasm should be considered. Case discussed with Pulmonary, Dr. Siddiqi. Patient has agreed to bronchoscopy after consultation with her family. She agrees that a bronchoscopy is the best way to diagnose her condition. Given elevated WBC and gram positive cocci on sputum culture, continue Bactrim and Zosyn at this time. Will adjust antibiotic regimen based on bronchoscopy results. Overall prognosis is very poor based on her pulmonary function. We'll continue to follow closely. Monitor renal function/ labs for drug toxicity, will renally adjust antibiotic dose as needed. (2) Failure of outpatient treatment Current Visit: No Status: Acute Patient has been admitted multiple times since October 2016 for pneumonia and was previously treated with Doxycycline, Bactrim, and Zosyn. Patient reports she has very limited IV access and required new port placement by IR on 01/04/17. Bronchoscopy completed on 01/10/17 confirmed growth of persistent Stenotrophomonas maltophilia found on sputum culture as far back as 10/10/2016. She was most recently discharged on 01/12/17 with Bactrim DS to finish total 14 -day course of treatment for pneumonia. (3) Acute exacerbation of chronic obstructive pulmonary disease (COPD) Current Visit: No Status: Acute Current management per primary team: Solu-Medrol, Bactrim, Zosyn Duonebs, Mucinex (4) Mucus plugging of bronchi Current Visit: No Status: Chronic Pulmonology following. Anticipate Bronchoscopy 02/05/17. (5) Atrial flutter with rapid ventricular response Current Visit: Yes Status: Chronic Heart rate currently controlled on sotalol. Cardiology following - Subjective Interval history: Patient seen and examined. Patient is sitting up at bedside and reports worsening SOB overnight and nonproductive cough. Patient is requiring 4 L supplemental oxygen today, her baseline 2L O2 requirement. She reports yellow sputum production and denies fever, chills, CP, abd pain, N/V/D/C, dysuria, or leg edema. Family is not present during the time of exam. Infect Dis PN-Objective Data - Labs CBC & Chem 7: 02/04/17 04:55 02/04/17 04:55 Labs: Laboratory Results - last 24 hr 02/03/17 02/03/17 02/04/17 10:30 20:34 04:55 WBC 15.4 H D RBC 4.39 Hgb 11.3 L Hct 36.2 MCV 82.5 L MCH 25.7 L MCHC 31.2 L RDW 16.2 H Plt Count 210 MPV 10.7 Immature Gran % 0.8 Seg Neutrophils % 90.3 Lymphocytes % 4.6 Monocytes % 4.2 Eosinophils % 0.0 Basophils % 0.1 Neutrophils # 13.9 H Lymphocytes # 0.7 Monocytes # 0.7 Eosinophils # 0.0 Basophils # 0.0 PT INR APTT 172.3 H* D Heparin Anti-Xa, Unfract 0.37 ABG pH ABG pCO2 ABG pO2 ABG HCO3 ABG Total CO2 ABG O2 Saturation ABG Base Excess Liter Flow Blood Gas Modality Inspired O2 Sodium 137 Potassium 3.9 Chloride 102 Carbon Dioxide 28 BUN 34 H D Creatinine 1.29 H Est GFR ( Amer) 50 L Est GFR (Non-Af Amer) 41 L BUN/Creatinine Ratio 26 Glucose 168 H Calculated Osmolality 295 Calcium 9.4 02/04/17 02/04/17 02/04/17 04:55 04:55 06:20 WBC RBC Hgb Hct MCV MCH MCHC RDW Plt Count MPV Immature Gran % Seg Neutrophils % Lymphocytes % Monocytes % Eosinophils % Basophils % Neutrophils # Lymphocytes # Monocytes # Eosinophils # Basophils # PT 22.8 H INR 2.1 APTT 103.7 H Heparin Anti-Xa, Unfract ABG pH 7.42 ABG pCO2 42 ABG pO2 129 H ABG HCO3 27.2 H ABG Total CO2 28.5 H ABG O2 Saturation 99 H ABG Base Excess 2.4 Liter Flow 3 Blood Gas Modality NC Inspired O2 32 Sodium 137 Potassium 4.7 H Chloride 106 Carbon Dioxide 28 BUN 38 H Creatinine 1.17 H Est GFR ( Amer) 56 L Est GFR (Non-Af Amer) 46 L BUN/Creatinine Ratio 32 H Glucose 112 H Calculated Osmolality 294 Calcium 9.3 Cultures: Cultures 02/01/17 23:52 Sputum Culture - Preliminary Sputum Gram Positive Cocci Serology 02/03/17 Range/Units 00:45 Stool Occult Blood Positive A (Negative) Exam - Constitutional Vitals: Temp Pulse Resp BP Pulse Ox 97.6 F 73 16 151/83 99 02/04/17 05:19 02/04/17 08:00 02/04/17 08:02 02/04/17 08:00 02/04/17 08:02 - Head Head exam: Present: atraumatic, normal inspection, normocephalic - Eye Eye exam: Present: PERRL, conjuntiva pink - ENT ENT exam: Present: mucous membranes moist, normal oropharynx - Neck Neck exam: Present: normal inspection. Absent: lymphadenopathy, tenderness, thyromegaly - Respiratory Respiratory exam: Present: prolonged expiratory phase, wheezes (Expiratory wheezing bilateral bases). Absent: accessory muscle use, decreased breath sounds, rales, respiratory distress - Cardiovascular Cardiovascular exam: Present: RRR, +S1, +S2. Absent: diastolic murmur, systolic murmur - GI/Abdominal GI/Abdominal exam: Present: normal bowel sounds, soft. Absent: organomegaly, tenderness - Extremities Exam Extremities exam: Present: normal inspection. Absent: pedal edema - Neurological Exam Neurological exam: Present: alert, oriented X3. Absent: altered - Psychiatric Psychiatric exam: Present: normal affect, normal mood - Skin Skin exam: Present: dry, warm. Absent: rash Consult Discharge Plan - Plan Referrals: Christoph Hughes DO [Primary Care Provider] - - Attending Attestation I examined this patient and my medical decision-making was reviewed with the Resident Physician. I agree with the documented findings, disposition and treatment plan as described except to the extent set forth below.
[2017-02-04] MEDS: Furosemide 40 MG TABLET PO SCH ×2 (08:26→16:31)
[2017-02-04] MEDS: Cholecalciferol (D-3) 1,000 UNIT TABLET PO SCH (08:26)
[2017-02-04] MEDS: Sulfamethoxazole/Trimeth SS 1 TAB PO SCH ×2 (08:26→21:46)
[2017-02-04] MEDS: Loratadine 10 MG TABLET PO SCH (08:26)
[2017-02-04] MEDS: traMADol 50 MG TABLET PO PRN ×2 (08:30→21:46)
--- NOTE | 2017-02-04 09:07 | Pulmonology Consult Note ---
<Compa Walker - Last Filed: 02/04/17 10:42> Date of Encounter: 02/04/17 Assessment and Plan (1) Pneumonia Current Visit: Yes Status: Acute Patient's CT scan showed right pleural effusion, right lower lobe pneumonia, mediastinal and right hilar adenopathy. -Blood cultures were collected on 02/01/17; revealed no growth -Sputum cultures collected on 02/01/17 revealed gram-positive cocci -Patient's white count is currently 15.4, up from 12.1 on admission. -Ration is currently on Bactrim double strength by mouth twice a day and Zosyn 3.375 mg IV every 8 since 02/02/17. -Chest CT performed on 02/02/17 suggests possible under not underlying neoplasm. Previous bronchoscopy on 01/11/17 revealed atypical cells. -Patient's Coumadin has been held. Patient has agreed to bronchoscopy after consultation with her family. She agrees that a bronchoscopy is the best way to diagnose her condition. Qualifiers: Pneumonia type: due to other aerobic Gram-negative bacteria Laterality: right Lung location: lower lobe of lung Qualified Code(s): J15.6 - Pneumonia due to other aerobic Gram-negative bacteria (2) Atrial fibrillation with RVR Current Visit: Yes Status: Acute Patient is currently receiving sotalol for her heart rate. -Initial EKG showed atrial flutter with a rate of 164 bpm. -Patient's heart rate is currently stable. -Was previously on Cardizem, but this was ineffective. -Patient normally takes Coumadin for atrial fibrillation. -Patient's Coumadin has been held for possible bronchoscopy. (3) COPD exacerbation Current Visit: Yes Status: Acute Patient admits to being a former smoker. Patient states that she started smoking when she was 22 years old. She quit when she was 42. -During this time she smoked approximately 1 pack per day. -Patient is normally on 2 L of home oxygen. -Patient is currently on oxygen via nasal cannula. -Patient is short of breath this morning, although does not display any signs of acute distress. -Continue oxygen and bronchodilators. (4) Diastolic CHF Current Visit: Yes Status: Chronic Patient's last echocardiogram was performed in September 2016. Ejection fraction 65 -70%. Severe dilated left atrium. -Patient was given a dose of Lasix earlier. -Low-sodium diet -Continue to monitor intake and output. Qualifiers: Congestive heart failure chronicity: chronic Qualified Code(s): I50.32 - Chronic diastolic (congestive) heart failure History of Present Illness Consult date: 02/04/17 Requesting physician: Compa Walker Reason for consult: dyspnea, cough, COPD, pneumonia, abnormal CXR/CT Chief complaint: Shortness of breath History of present illness: Patient was seen and examined at bedside this morning. Patient states the shortness of breath as she was having on admission has been persistent since her arrival. She states that that this has been an ongoing problem for the last 6 months. She has had a number of admissions to the hospital, all of which have similar presentations. She states that she becomes short of breath and has a productive cough, and that her condition never completely resolves. She states that this morning, she is having difficulty breathing, especially with exertion. Patient however does not appear to be in acute distress. Patient denies having any chest pain or palpitations. Patient's heart rate has been well controlled since her admission. She currently denies having any fever or chills. This morning, she has not had much of a productive cough. When she does bring up sputum, she describes it as being brown in color. She denies seeing any blood in her sputum. She currently denies having any nausea, vomiting, hemoptysis, chest pain, palpitations, or wheezing. When asked about a bronchoscopy, patient says that she wants to have it done. She states that she has spoken with her family about being scoped, and she agrees that this is the best option to treat the underlying cause. Medications and Allergies Albuterol Sulfate [Albuterol Inhaler] 1 - 2 puff IH Q4HR PRN 11/24/15 [History] Allopurinol [Zyloprim 100 MG] 100 mg PO DAILY 11/24/15 [History] Budesonide/Formoterol 160/4.5 [Symbicort 160/4.5] 2 puff IH BIDR 11/24/15 [ History] Calcium Carbonate [Calcium] 500 mg PO BID 11/24/15 [History] Cholecalciferol (D-3) [Vitamin D] 2,000 unit PO DAILY 11/24/15 [History] Fluticasone Propionate Nasal [Flonase] 1 spray NS DAILY 11/24/15 [History] Gabapentin [Neurontin] 200 mg PO HS 11/24/15 [History] Loratadine [Claritin] 10 mg PO DAILY 11/24/15 [History] Metoprolol XL (24 HR) Succ [Toprol Xl] 12.5 mg PO BID 11/24/15 [History] Montelukast [Singulair] 10 mg PO DAILY 11/24/15 [History] Nitroglycerin [Nitrostat] 0.4 mg SL Q5M PRN 11/24/15 [History] Nortriptyline [Pamelor] 10 mg PO HS 11/24/15 [History] Roflumilast [Daliresp] 500 mcg PO DAILY 11/24/15 [History] Vitamin B Complex [B Complex] 1 tab PO DAILY 11/24/15 [History] Umeclidinium Delano [Incruse Ellipta] 1 puff IH DAILY 12/17/15 [History] Atorvastatin [Lipitor] 10 mg PO HS 01/01/16 [History] Albuterol Neb [Proventil Neb] 2.5 mg IH Q4HR PRN 08/25/16 [History] Bifidobacterium Infantis [Align] 4 mg PO DAILY 08/25/16 [History] Oxygen 2 l IN CONT #1 each 08/26/16 [Rx] Tramadol HCl 50 - 100 mg PO QID PRN 09/13/16 [History] Esomeprazole Magnesium [Nexium] 40 mg PO DAILY #30 capsule. 10/03/16 [Rx] Furosemide [Lasix] 40 mg PO BID #60 tablet 10/03/16 [Rx] Acetylcysteine [Q-Idhdbm-m-Cysteine] 600 mg PO BID 10/08/16 [History] Warfarin [Coumadin] 2.5 mg PO FRSA 01/18/17 [History] Warfarin [Coumadin] 5 mg PO SUWE 01/18/17 [History] Warfarin [Coumadin] 7.5 mg PO TUTH 01/18/17 [History] Diltiazem CD (24hr) [Cardizem CD] 180 mg PO DAILY #30 01/22/17 [Rx] Potassium Chloride [K-Tab ER] 30 meq PO DAILY 02/01/17 [History] predniSONE [PredniSONE] See Taper PO TAPER 02/01/17 [History] Allergies ceftriaxone [From Rocephin] Allergy (Severe, Verified 01/18/17 09:26) Hives ciprofloxacin [From Cipro HC] Allergy (Severe, Verified 01/18/17 09:26) Hives levofloxacin [From Levaquin] Allergy (Severe, Verified 01/18/17 09:26) Hives hydrocortisone [From Cipro HC] Allergy (Intermediate, Verified 01/18/17 09:26) Hives vancomycin Allergy (Mild, Verified 01/18/17 09:26) Rash Spoke with ID from [facility], in 2007 presented with skin rash which was subsequently attributed to either vancomycin, amiodarone, or another medicine as all other causes were ruled out. Important to note this was recorded as a rash and not hives, trouble breathing, etc. All Systems: A 10-system review of systems was performed and is negative for pertinent findings except as documented above in the HPI. - Constitutional Constitutional: no chills, no fever(s), no witnessed apnea - EENT Nose, mouth and throat: dry mouth, no nasal congestion - Cardiovascular Cardiovascular: dyspnea, dyspnea on exertion, irregular heart rhythm (Patient has atrial fibrillation.), no chest pain, no chest pain at rest - Respiratory Respiratory: cough, dyspnea - Hematologic/Lymphatic Hematologic/Lymphatic: no lymphadenopathy Physical Examination Vital Signs: Vital Signs, Last 4 Hours Pulse Resp BP Pulse Ox 02/04/17 08:02 16 99 02/04/17 08:00 73 18 151/83 95 Auscultation: bilateral: rhonchi (Rhonchi are heard bilaterally, primarily in the right lower lung fletcher.) Percussion: right: dull Cardiovascular: irregular rhythm Extremities: no edema Results - Laboratory Findings CBC and BMP: 02/04/17 04:55 02/04/17 04:55 ABG ABG pH 7.42 pH Units (7.32-7.45) 02/04/17 06:20 ABG pCO2 42 mmHg (35-45) 02/04/17 06:20 ABG pO2 129 mmHg (85-104) H 02/04/17 06:20 ABG O2 Saturation 99 % (95-98) H 02/04/17 06:20 PT/INR, D-dimer PT 22.8 Seconds (9.4-12.1) H 02/04/17 04:55 Abnormal lab findings: Abnormal lab results WBC 15.4 K/mcL (4.3-11.1) H D 02/04/17 04:55 Hgb 11.3 g/dL (11.5-15.4) L 02/04/17 04:55 MCV 82.5 fL (83.0-100.0) L 02/04/17 04:55 MCH 25.7 pg (28.0-33.3) L 02/04/17 04:55 MCHC 31.2 g/dL (31.6-35.5) L 02/04/17 04:55 RDW 16.2 % (11.5-14.5) H 02/04/17 04:55 Neutrophils # 13.9 K/mcL (1.6-8.9) H 02/04/17 04:55 PT 22.8 Seconds (9.4-12.1) H 02/04/17 04:55 APTT 103.7 Seconds (26.0-36.0) H 02/04/17 04:55 ABG pO2 129 mmHg (85-104) H 02/04/17 06:20 ABG HCO3 27.2 mEQ/L (21-27) H 02/04/17 06:20 ABG Total CO2 28.5 mEq/L (20-26) H 02/04/17 06:20 ABG O2 Saturation 99 % (95-98) H 02/04/17 06:20 Potassium 4.7 mEq/L (3.5-4.5) H 02/04/17 04:55 BUN 38 mg/dL (7-20) H 02/04/17 04:55 Creatinine 1.17 mg/dL (0.57-1.11) H 02/04/17 04:55 Est GFR ( Amer) 56 (> 60) L 02/04/17 04:55 Est GFR (Non-Af Amer) 46 (> 60) L 02/04/17 04:55 BUN/Creatinine Ratio 32 (6-26) H 02/04/17 04:55 Glucose 112 mg/dL (70-99) H 02/04/17 04:55 Stool Occult Blood Positive (Negative) A 02/03/17 00:45 - Microbiology Findings Microbiology Findings: Microbiology, Last 48 Hours 02/01/17 23:52 Sputum Culture - Preliminary Sputum Gram Positive Cocci - Clinical Findings Intake & Output: Intake & Output 02/03/17 02/04/17 02/04/17 23:59 07:59 15:59 Intake Total 230 / 230 1220 / 1220 Output Total 3000 / 3000 Balance 230 / 230 -1780 / -1780 Weight 60.3 kg Consult Discharge Plan - Plan Referrals: Christoph Hughes DO [Primary Care Provider] - <Jose Siddiqi - Last Filed: 02/04/17 20:24> Date of Encounter: 02/04/17 Time of Encounter: 08:30 Past Med Surg Social Fam HX - Past Medical History Medical history: arthritis, atrial fibrillation, cardiomyopathy, CHF, COPD, fibromyalgia, hypertension, myocardial infarction, osteoporosis, RA, other Psychiatric history: no psych history - Past Surgical History Surgical History: angioplasty/stent, cholecystectomy, coronary bypass (CABG), heart valve replacement, orthopedic, other - Social History Smoking Status: Former smoker Smokeless Tobacco Status: No Alcohol use: none Drug use: none - Family History Father Living Status: Hx Family Cardiac Disorders: Yes (open heart surgery) Hx Family Respiratory Disorders: No Hx Family Cancer: Yes (Liver cancer w/ mets) Hx Family GI Disorders: No Hx Family Endocrine Disorder: No Hx Family Neuromuscular Disorders: No Hx Family Neurologic Disorders: No Hx Family HEENT Disorders: No Hx Family Autoimmune Disorders: No Mother Living Status: Hx Family Cardiac Disorders: No Hx Family Respiratory Disorders: Yes Hx Family Cancer: Yes (bone, lung) Hx Family GI Disorders: No Hx Family Endocrine Disorder: No Hx Family Neuromuscular Disorders: No Hx Family Neurologic Disorders: No Hx Family HEENT Disorders: No Hx Family Autoimmune Disorders: No All Systems: A 10-system review of systems was performed and is negative for pertinent findings except as documented above in the HPI. Physical Examination Vital Signs: Vital Signs, Last 4 Hours Temp Pulse Resp BP Pulse Ox 02/04/17 08:02 16 99 02/04/17 08:00 73 18 151/83 95 02/04/17 05:19 97.6 F 72 12 100/65 94 Results - Laboratory Findings CBC and BMP: 02/04/17 04:55 02/04/17 04:55 ABG ABG pH 7.42 pH Units (7.32-7.45) 02/04/17 06:20 ABG pCO2 42 mmHg (35-45) 02/04/17 06:20 ABG pO2 129 mmHg (85-104) H 02/04/17 06:20 ABG O2 Saturation 99 % (95-98) H 02/04/17 06:20 PT/INR, D-dimer PT 22.8 Seconds (9.4-12.1) H 02/04/17 04:55 Abnormal lab findings: Abnormal lab results WBC 15.4 K/mcL (4.3-11.1) H D 02/04/17 04:55 Hgb 11.3 g/dL (11.5-15.4) L 02/04/17 04:55 MCV 82.5 fL (83.0-100.0) L 02/04/17 04:55 MCH 25.7 pg (28.0-33.3) L 02/04/17 04:55 MCHC 31.2 g/dL (31.6-35.5) L 02/04/17 04:55 RDW 16.2 % (11.5-14.5) H 02/04/17 04:55 Neutrophils # 13.9 K/mcL (1.6-8.9) H 02/04/17 04:55 PT 22.8 Seconds (9.4-12.1) H 02/04/17 04:55 APTT 103.7 Seconds (26.0-36.0) H 02/04/17 04:55 ABG pO2 129 mmHg (85-104) H 02/04/17 06:20 ABG HCO3 27.2 mEQ/L (21-27) H 02/04/17 06:20 ABG Total CO2 28.5 mEq/L (20-26) H 02/04/17 06:20 ABG O2 Saturation 99 % (95-98) H 02/04/17 06:20 Potassium 4.7 mEq/L (3.5-4.5) H 02/04/17 04:55 BUN 38 mg/dL (7-20) H 02/04/17 04:55 Creatinine 1.17 mg/dL (0.57-1.11) H 02/04/17 04:55 Est GFR ( Amer) 56 (> 60) L 02/04/17 04:55 Est GFR (Non-Af Amer) 46 (> 60) L 02/04/17 04:55 BUN/Creatinine Ratio 32 (6-26) H 02/04/17 04:55 Glucose 112 mg/dL (70-99) H 02/04/17 04:55 Stool Occult Blood Positive (Negative) A 02/03/17 00:45 - Microbiology Findings Microbiology Findings: Microbiology, Last 48 Hours 02/01/17 23:52 Sputum Culture - Preliminary Sputum Gram Positive Cocci - Clinical Findings Intake & Output: Intake & Output 02/03/17 02/04/17 02/04/17 23:59 07:59 15:59 Intake Total 230 / 230 1220 / 1220 Output Total 3000 / 3000 Balance 230 / 230 -1780 / -1780 Weight 60.3 kg - Attending Attestation I examined this patient and my medical decision-making was reviewed with the Resident Physician. I agree with the documented findings, disposition and treatment plan as described except to the extent set forth below. Patient seen and examined. Labs, radiology, chart personally reviewed. Agree with resident's history and physical, assessment, plan with following comments: WOOD [employer] HAND: Patient follows commands, Pulmonary: Acceptable oxygenation and ventilation. Reviewed CT chest and I still feel this is most likely mucus plugs and chronic lung disease. Since there is question about pneumonia versus reactive adenopathy versus malignancies due finding atypical cells, will plan for bronchoscopy. All the risks, alternatives and benefits of the procedure explained to the patient and she agreed to have it done. Heme: DVT prophylaxis per routine. Patient will be on heparin drip. This is discussed with primary team and thanks for the consult. Will proceed to arrange bronchoscopy tomorrow.
--- NOTE | 2017-02-04 09:57 | Gastroenterology Consult Note ---
<Ryann Ahn - Last Filed: 02/04/17 11:27> Date of Encounter: 02/04/17 Time of Encounter: 10:40 - Assessment and plan (1) Melena Current Visit: Yes Status: Acute Assessment and plan: Plan for EGD tomorrow if INR < 1.5. Heparin gtt needs to be d/c 6 hours prior to procedure. (2) Atrial flutter with rapid ventricular response Current Visit: Yes Status: Chronic Assessment and plan: on Sotalol (3) Pneumonia Current Visit: No Status: Chronic Assessment and plan: Being managed by ID and pulmonology. Patient had abnormal bronchoscopy. (4) Supratherapeutic INR Current Visit: No Status: Acute (5) Anemia Current Visit: No Status: Chronic Assessment and plan: Mild drop in hgb, 11.3 this am. Continue to monitor - Time Spent With Patient Total time spent is greater than 50% in coordination of care (as documented) at patient's floor/unit and/or counseling patient: less than 15 minutes GI History of Present Illness - Data of Consult Patient: known to practice within the last 3 years Consult date: 02/04/17 Requesting Physician: Jessie Fernandez MD - Consult Narrative Reason for consult: melena History of present illness: Ms. Dewitt is a 71 year old female with PMH of diastolic heart failure, COPD, oxygen dependence, CKD III, a fib, CAD, mechanical heart valve on long-term anticoagulation. Recent hospitalization on 01/02/17 for pneumonia and A. fib with RVR. Patient has been admitted multiple times since October 2016 for pneumonia and was previously treated with Doxycycline, Bactrim, and Zosyn. Patient reports she has very limited IV access and required new port placement by IR on 01/04/17. Bronchoscopy completed on 01/10/17 confirmed growth of persistent Stenotrophomonas maltophilia found on sputum culture as far back as 10/10/2016 sensitive to Bactrim and levofloxacin. She was most recently discharged on 01/12 with Bactrim DS to finish total 14-day course of treatment for pneumonia. In the ED, patient's heart rate was in the 150s and hemodynamically stable. Since admission she has met two SIRS criteria with WBC 12.1 and tachycardia. Heart rate is now controlled on Sotalol. Cardiology, ID and pulmonology are consulted. GI consulted today due to appearance of black stools yesterday x 1. Patient states dysphagia symptoms are stable, increase in acid reflux symptoms over the past month or so. Prior to admission, stools were brown, no blood or black stools. Colonoscopy: 09/2015 G - 3 5-6mm tubular adenoma, diverticulosis EGD: 09/2015 G - wnl, s/p dilation Past Med Surg Social Fam HX - Past Medical History Medical history: arthritis, atrial fibrillation, cardiomyopathy, CHF, COPD, fibromyalgia, hypertension, myocardial infarction, osteoporosis, RA, other Psychiatric history: no psych history - Past Surgical History Surgical History: angioplasty/stent, cholecystectomy, coronary bypass (CABG), heart valve replacement, orthopedic, other - Social History Smoking Status: Former smoker Smokeless Tobacco Status: No Alcohol use: none Drug use: none - Family History Father Living Status: Hx Family Cardiac Disorders: Yes (open heart surgery) Hx Family Respiratory Disorders: No Hx Family Cancer: Yes (Liver cancer w/ mets) Hx Family GI Disorders: No Hx Family Endocrine Disorder: No Hx Family Neuromuscular Disorders: No Hx Family Neurologic Disorders: No Hx Family HEENT Disorders: No Hx Family Autoimmune Disorders: No Mother Living Status: Hx Family Cardiac Disorders: No Hx Family Respiratory Disorders: Yes Hx Family Cancer: Yes (bone, lung) Hx Family GI Disorders: No Hx Family Endocrine Disorder: No Hx Family Neuromuscular Disorders: No Hx Family Neurologic Disorders: No Hx Family HEENT Disorders: No Hx Family Autoimmune Disorders: No - Gastrointestinal NSAID use: None noted Anticoagulation Use: Coumadin, now heparin gtt Number of BM Per Day: daily Gastrointestinal: Present: dyspepsia, heartburn, melena - Constitutional Constitutional: as per HPI - EENT Eyes: as per HPI Ears: Present: as per HPI Nose, mouth and throat: Present: dysphagia - Cardiovascular Cardiovascular ROS: Present: irregular heart rhythm, palpitations - Respiratory Respiratory IM: Present: dyspnea - Neurological ROS Neurological GI: Present: as per HPI - Hematologic/Lymphatic Hematologic/Lymphatic pediatric: Present: as per HPI - Musculoskeletal Musculoskeletal ROS GI: Present: as per HPI - Integumentary Integumentary GI: Present: as per HPI - Psychiatric ROS Psychiatric GI: Present: as per HPI - Endocrine Endocrine IM: Present: as per HPI - Constitutional Vitals: Temp Pulse Resp BP Pulse Ox 97.6 F 73 16 151/83 99 02/04/17 05:19 02/04/17 08:00 02/04/17 08:02 02/04/17 08:00 02/04/17 08:02 General appearance: Present: cooperative, A&O X 3, no acute distress, answers questions appropriately - Head Head exam: Present: atraumatic, normocephalic - Eye Eye exam: Present: normal appearance, sclera anicteric - ENT ENT exam: Present: mucous membranes moist - Neck Neck exam general surgery: Present: normal inspection, trachea midline - Respiratory Respiratory exam: Present: decreased breath sounds, wheezes - Cardiovascular Cardiovascular exam: Present: RRR, +S1, +S2 - GI/Abdominal GI/Abdominal exam: Present: normal bowel sounds, soft, no peritoneal signs - Rectal Rectal exam: Present: deferred - Extremities Exam Extremities exam: Present: warm - Neurological Exam Neurological exam: Present: no focal deficits - Psychiatric Psychiatric exam: Present: normal affect, normal mood - Skin Skin exam: Present: dry, intact, normal color, warm Results - Labs CBC & Chem 7: 02/04/17 04:55 02/04/17 04:55 Labs: Last Result Calcium 9.3 mg/dL (8.6-10.8) 02/04/17 04:55 Troponin I 0.01 ng/mL (0-0.03) 02/01/17 16:58 Stool Occult Blood Positive (Negative) A 02/03/17 00:45 Entire Visit Hgb 11.3 g/dL (11.5-15.4) L 02/04/17 04:55 Hct 36.2 % (35.3-44.9) 02/04/17 04:55 PT 22.8 Seconds (9.4-12.1) H 02/04/17 04:55 - ABG ABG results: ABG ABG pH 7.42 pH Units (7.32-7.45) 02/04/17 06:20 ABG pCO2 42 mmHg (35-45) 02/04/17 06:20 ABG pO2 129 mmHg (85-104) H 02/04/17 06:20 ABG O2 Saturation 99 % (95-98) H 02/04/17 06:20 PT/INR, D-dimer PT 22.8 Seconds (9.4-12.1) H 02/04/17 04:55 Consult Discharge Plan - Plan Referrals: Christoph Hughes DO [Primary Care Provider] - <Yael Robertheed - Last Filed: 02/04/17 18:56> Date of Encounter: 02/04/17 Time of Encounter: 17:30 - Time Spent With Patient Total time spent is greater than 50% in coordination of care (as documented) at patient's floor/unit and/or counseling patient: GI History of Present Illness - Data of Consult Requesting Physician: Jessie Fernandez MD - Consult Narrative History of present illness: Ms. Dewitt is a 71 year old female - Constitutional Vitals: Temp Pulse Resp BP Pulse Ox 97.6 F 75 16 118/71 98 02/04/17 05:19 02/04/17 15:00 02/04/17 16:11 02/04/17 15:00 02/04/17 16:11 Results - Labs CBC & Chem 7: 02/04/17 04:55 02/04/17 04:55 Labs: Last Result Calcium 9.3 mg/dL (8.6-10.8) 02/04/17 04:55 Troponin I 0.01 ng/mL (0-0.03) 02/01/17 16:58 Stool Occult Blood Positive (Negative) A 02/03/17 00:45 Entire Visit Hgb 11.3 g/dL (11.5-15.4) L 02/04/17 04:55 Hct 36.2 % (35.3-44.9) 02/04/17 04:55 PT 22.8 Seconds (9.4-12.1) H 02/04/17 04:55 - ABG ABG results: ABG ABG pH 7.42 pH Units (7.32-7.45) 02/04/17 06:20 ABG pCO2 42 mmHg (35-45) 02/04/17 06:20 ABG pO2 129 mmHg (85-104) H 02/04/17 06:20 ABG O2 Saturation 99 % (95-98) H 02/04/17 06:20 PT/INR, D-dimer PT 22.8 Seconds (9.4-12.1) H 02/04/17 04:55 - Attending Attestation I examined this patient and my medical decision-making was reviewed with the Resident Physician. I agree with the documented findings, disposition and treatment plan as described except to the extent set forth below.
--- NOTE | 2017-02-04 10:30 | Internal Med Progress Note ---
Date of Encounter: 02/05/17 Time of Encounter: 10:25 - Assessment and plan (1) Pneumonia Current Visit: Yes Status: Acute Qualifiers: Pneumonia type: due to other aerobic Gram-negative bacteria Laterality: right Lung location: lower lobe of lung Qualified Code(s): J15.6 - Pneumonia due to other aerobic Gram-negative bacteria (2) Diastolic CHF Current Visit: Yes Status: Chronic Qualifiers: Congestive heart failure chronicity: chronic Qualified Code(s): I50.32 - Chronic diastolic (congestive) heart failure (3) CKD (chronic kidney disease) stage 3, GFR 30-59 ml/min Current Visit: Yes Status: Chronic (4) COPD exacerbation Current Visit: Yes Status: Acute (5) Atrial fibrillation with RVR Current Visit: Yes Status: Acute - Subjective Interval history: Mrs. Chris Dewitt s a 71-year-old female admitted founcontrolled atrial fibrillation. Previously she was tried on beta Blockers and amiodarone. Cardiologyconsulted who have restarted her on sotalol Patient is in sinus rhythm. She has prosthetic mitral valve A. fib and she is on Coumadin with target INR 2.5-3.5. However on admission her INR was 5 therefore Coumadin was put on hold. patient was noted to have right sided consolidation and lymphadenopathy and previous BAL showed atypical cells. Since she planned to have bronchoscopy therefore Coumadin is on hold and per cardiology she will be bridgewith IV heparinin the meantime. Pulmonology was consulted. Apparently she was scheduled to get bronchoscopy as outpatient According o cardiologypractitioner she had ablack tarry stool this morning. Her hemoglobin is only modestly dropped from admission from 13-11 and seems reasonably stable. GI is consulted as this would be a high time to do while she will be off Coumadin. She will be on PPI. she has left-sided consolidation with effusioni consistent with pneumonia. Previous BAL showed Stenotrophomonas maltophilia. Infectious disease is on case. 02/04 #1 admitted for uncontrolled A. fib and now very well controlled with sotalol. She has a prosthetic mitral valve and therefore target INR is between 2.5 and 3.5 on Coumadin which is on hold for possible bronchoscopy #2 recurrent pneumonia with Stenotrophomonas maltophilia. On recent CT chest bilateral infiltrates with effusion off which left infiltrate has been present for a while. Currently on Zosyn and Bactrim. Renal functions are satisfactory and will be monitored as well as CBC. This morning white count has increased to 15,000. Patient has failed multiple antibiotic treatment in the past. Infectious disease on the case. Also has COPD for which she gets nebulizer treatments and seems to have responded well as reflected by the ABG drawn yesterday. She will be okay with 1-2 L oxygen only. #3 consent for malignancy raised from infectious disease especially because she has confluent right hilar lymphadenopathy and also bilateral to basal consolidation which could be pneumonia versus malignancy especially tender on the left side. Previous bronchoscopy yielded not satisfactory and Dr. Schultz plans to do another one after INR drops down further. She is on IV heparin and Coumadin is on hold for the same reason. #4 positive Hemoccult of stool but hemoglobin is quite stable and actually improving. She has seen Dr. Chauhan in the past who presented to endoscopy's as outpatient. I think continue current morbidity and her stable hemoglobin we can hold on her colonoscopy. #5 her CHF COPD CKD - Constitutional Vitals: Temp Pulse Resp BP Pulse Ox 97.6 F 73 16 151/83 99 02/04/17 05:19 02/04/17 08:00 02/04/17 08:02 02/04/17 08:00 02/04/17 08:02 General appearance: Present: A&O X 3, answers questions appropriately - Head Head exam: Present: atraumatic, normocephalic - Eye Eye exam: Present: PERRL, conjuntiva pink, sclera anicteric Pupils: Present: PERRL - Neck Neck exam general surgery: Present: supple, trachea midline. Absent: lymphadenopathy - Respiratory Respiratory exam: Present: CTAB. Absent: accessory muscle use, rales, rhonchi, wheezes - Cardiovascular Cardiovascular exam: Present: RRR, +S1, +S2. Absent: diastolic murmur, gallop, rubs, systolic murmur - GI/Abdominal GI/Abdominal exam: Present: normal bowel sounds, soft, no peritoneal signs. Absent: distended, tenderness - Extremities Exam Extremities exam: Present: warm, radial pulses palpable and symetrical. Absent : calf tenderness, cyanotic, pedal edema - Neurological Exam Neurological exam: Present: CN II-XII intact, oriented X3, no focal deficits. Absent: pronater drift, facial droop, speech deficit - Skin Skin exam: Present: dry, intact Internal Medicine: Result - Labs CBC & Chem 7: 02/05/17 04:20 02/04/17 04:55 Labs: Short CBC 02/04/17 Range/Units 04:55 WBC 15.4 H D (4.3-11.1) K/mcL Hgb 11.3 L (11.5-15.4) g/dL Hct 36.2 (35.3-44.9) % Plt Count 210 (140-400) K/mcL Neutrophils # 13.9 H (1.6-8.9) K/mcL BMP 02/03/17 02/04/17 10:30 04:55 Sodium 137 137 Potassium 3.9 4.7 H Chloride 102 106 Carbon Dioxide 28 28 BUN 34 H D 38 H Creatinine 1.29 H 1.17 H Glucose 168 H 112 H Calcium 9.4 9.3 - ABG Interpretation ABG results: ABG ABG pH 7.42 pH Units (7.32-7.45) 02/04/17 06:20 ABG pCO2 42 mmHg (35-45) 02/04/17 06:20 ABG pO2 129 mmHg (85-104) H 02/04/17 06:20 ABG O2 Saturation 99 % (95-98) H 02/04/17 06:20 PT/INR, D-dimer PT 22.8 Seconds (9.4-12.1) H 02/04/17 04:55 Consult Discharge Plan - Plan Referrals: Christoph Hughes DO [Primary Care Provider] -
--- NOTE | 2017-02-04 11:19 | Cardiology Progress Note ---
Date of Encounter: 02/04/17 Time of Encounter: 11:18 Assessment and Plan (1) Atrial fibrillation with RVR Current Visit: Yes Status: Acute Per Cardiology: History of paroxysmal atrial fibrillation at outside hospital late 2016 in setting of retroperitoneal bleed with cirrhosis hematoma with small left hemoperitoneum while on aspirin and Coumadin. Aspirin discontinued at that time. Was on amiodarone with no recurrence of A. fib noted. Patient now with hospitalization a few weeks ago with A. fib with RVR with rate control strategy during that hospital stay. Patient now readmitted with A. fib with RVR. Received digoxin IV load by primary service. Per discussion with Dr. Teddy Fierro, on sotalol 80 mg by mouth twice a day and monitor ECGs. Currently sinus rhythm in the 70s and 80s on telemetry. One dose was held evening of 02/02 due to concerns of hypotension. Will discontinue Toprol. Per discussion with Dr. Teddy Fierro, will continue with sotalol and please do not hold unless directed by cardiology. QT/QTc baseline 331/382 ms and current ECG 395/411 ms. We'll continue to monitor ECGs and adjust sotalol accordingly. Daily EKGs demonstrate QTc has remained <500ms. Will continue to monitor for 5 doses, which will be tomorrow AM. Anticoagulated with Coumadin be managed by [facility]. Supratherapeutic INR initially , now subtherapeutic due to Coumadin being held pending possible bronchoscopy and EGD. INR 2.1 today. Patient has mechanical mitral valve and atrial fibrillation. Target INR 2.5-3.5. H&H slightly downward trended, however stable today. Concern for dark tarry stool yesterday morning with occult stool positive. Coumadin needs to be resumed when able due to her mechanical mitral valve. Will need to continue heparin gtt in the meantime. If heparin gtt needs to be stopped for procedures, recommend stopping 4 hours prior to procedures, with a maximum time of 6 hours off heparin due to her mechanical mitral valve and need for lowering the risk of thrombosis. (2) Acute and chronic respiratory failure Current Visit: No Status: Acute Per Cardiology: Pulmonology following. ID following. Pt with HCAP, pleural effusion, COPD exacerbation. Potential bronchoscopy per pulm. Qualifiers: Respiratory failure complication: hypoxia Qualified Code(s): J96.21 - Acute and chronic respiratory failure with hypoxia (3) Acute blood loss anemia Current Visit: No Status: Acute Per Cardiology: GI following with plan for EGD once INR <1.5. Coumadin on hold with heparin gtt bridging. Need to continue heparin gtt until Coumadin can be resumed/target INR achieved of 2.5-3.5 due to mechanical mitral valve. If heparin gtt needs to be stopped for procedures, recommend stopping 4 hours prior to procedures, with a maximum time of 6 hours off heparin due to her mechanical mitral valve and need for lowering the risk of thrombosis. (4) CAD (coronary artery disease) Current Visit: No Status: Chronic Per Cardiology: Known history of CAD with CABG 3 including the clinic in 2007 with negative stress test September 2013. Last echo September 2016 showed EF 65-70%, no segment wall motion abnormalities, mild diastolic dysfunction, normal RV size and function, severe dilated left atrium, chemical mitral valve with normal function. Chest pain-free. Troponin negative 1. Qualifiers: Coronary Disease-Associated Artery/Lesion type: [place] artery [place] vs. transplanted heart: [place] heart Associated angina: without angina Qualified Code(s): I25.10 - Atherosclerotic heart disease of [place] coronary artery without angina pectoris (5) H/O mitral valve replacement with mechanical valve Current Visit: No Status: Chronic Per Cardiology: Again history of mechanical mitral valve with normal function on echo September 2016. Anticoagulation as above, goal 2.5-3.5. On heparin gtt for now with Coumadin on hold for upcoming procedures. If heparin gtt needs to be stopped for procedures, recommend stopping 4 hours prior to procedures, with a maximum time of 6 hours off heparin due to her mechanical mitral valve and need for lowering the risk of valve thrombosis. Discussion w patient/family: The assessment and plan as outlined above was discussed with the patient and/or family members who expressed understanding and agreement. All questions were answered. Thank you for involving us in the care of your patient. Please call with any questions. I will discuss all the above with Dr. Teddy Fierro and make changes as necessary. Subjective Principal diagnosis: Afib Interval history: Pt reports dyspnea has worsened. She denies palpitations or chest pain this AM. SR on telemetry. Denies any recurrence of blood in stool or sputum. HGB stable. Has received 3 doses of Sotalol. Coumadin on hold due to possible bronchoscopy and EGD. INR subtherapeutic 2.1 (goal 2.5-3.5), on heparin gtt. Objective Vital Signs, Last 4 Hours Pulse Resp BP Pulse Ox 02/04/17 08:02 16 99 02/04/17 08:00 73 18 151/83 95 Vital Signs Temp Pulse Resp BP Pulse Ox 02/04/17 08:02 16 99 02/04/17 08:00 73 18 151/83 95 02/04/17 05:19 97.6 F 72 12 100/65 94 02/04/17 04:04 15 95 02/03/17 22:13 15 97 02/03/17 19:10 98.0 F 82 16 117/67 98 02/03/17 15:43 18 99 02/03/17 15:29 97 F L 72 16 122/74 98 Intake and Output 02/03/17 02/04/17 02/04/17 23:59 07:59 15:59 Intake Total 230 / 230 1220 / 1220 200 / 200 Output Total 3000 / 3000 Balance 230 / 230 -1780 / -1780 200 / 200 Intake: IV Fluids 230 / 230 220 / 220 Heparin 25,000 UNIT/500 130 / 130 120 / 120 ML D5W 25,000 unit In 500 ml @ 14 UNIT/KG/HR 16. 604 mls/hr IVC .Q24H [facility] Rx#:[id number] Zosyn 3.375 GM In 100 / 100 100 / 100 Dextrose 5% (Minibag+) 100 ML 100 ML @ 25 mls/hr IVPB Q8HR [facility] Rx#: [id number] Oral 0 / 0 1000 / 1000 200 / 200 Output: Urine 3000 / 3000 Other: Meal Breakfast Percent of Meal Consumed 90% # Voids 1 Weight 60.3 kg Patient Weight 02/04/17 23:59 Weight 60.3 kg General: Conversant, No Apparent Distress HEENT: Atraumatic, Normocephaly, Mucus Membranes Moist Neck: No JVD, Normal carotid pulses Cardiac: Reg Rate and Rhythm, Normal S1 and S2, No Murmur Lungs: Other (diminished) Neuro: Alert and responsive, No focal deficits noted Abdomen: Soft, Non-Tender Skin: No rashes noted on visualized skin Musculoskeletal: No Chest Wall Tenderness Extremities: No Clubbing, No Cyanosis, No Edema, Normal Pulses Results 02/04/17 04:55 02/04/17 04:55 Lab Results 02/03/17 02/04/17 02/04/17 20:34 04:55 04:55 WBC 15.4 H D Hgb 11.3 L Hct 36.2 Plt Count 210 INR APTT 172.3 H* D Sodium 137 Potassium 4.7 H Chloride 106 Carbon Dioxide 28 BUN 38 H Creatinine 1.17 H Glucose 112 H Calcium 9.3 02/04/17 04:55 WBC Hgb Hct Plt Count INR 2.1 APTT 103.7 H Sodium Potassium Chloride Carbon Dioxide BUN Creatinine Glucose Calcium Short CBC 02/04/17 Range/Units 04:55 WBC 15.4 H D (4.3-11.1) K/mcL Hgb 11.3 L (11.5-15.4) g/dL Hct 36.2 (35.3-44.9) % Plt Count 210 (140-400) K/mcL Neutrophils # 13.9 H (1.6-8.9) K/mcL BMP 02/04/17 Range/Units 04:55 Sodium 137 (136-145) mEq/L Potassium 4.7 H (3.5-4.5) mEq/L Chloride 106 (98-109) mEq/L Carbon Dioxide 28 (19-29) mEq/L BUN 38 H (7-20) mg/dL Creatinine 1.17 H (0.57-1.11) mg/dL Glucose 112 H (70-99) mg/dL Calcium 9.3 (8.6-10.8) mg/dL Active Medications Acetylcysteine (Acetylcysteine 10%) 2 ml IH [id number] [facility] Stop: 08/03/17 22:01 Last Admin: 02/04/17 08:01 Dose: 2 ml Albuterol/Ipratropium (Duoneb) 3 ml IH [id number] [facility] Stop: 08/06/17 12:01 Allopurinol (Zyloprim) 100 mg PO DAILY [facility] Stop: 08/04/17 09:01 Last Admin: 02/04/17 08:26 Dose: 100 mg Atorvastatin Calcium (Lipitor) 10 mg PO HS [facility] Stop: 08/03/17 21:01 Last Admin: 02/03/17 21:53 Dose: 10 mg Budesonide/Formoterol Fumarate (Symbicort) 2 puff IH BIDR [facility] PRN Reason: Protocol Stop: 08/06/17 11:16 Calcium Carbonate (Tums) 500 mg PO BID [facility] Stop: 08/03/17 21:01 Last Admin: 02/04/17 08:26 Dose: 500 mg Furosemide (Lasix) 40 mg PO BIDDIURETIC [facility] Stop: 08/06/17 08:01 Last Admin: 02/04/17 08:26 Dose: 40 mg Gabapentin (Neurontin) 200 mg PO HS [facility] Stop: 08/03/17 21:01 Last Admin: 02/03/17 21:53 Dose: 200 mg Guaifenesin (Mucinex) 1,200 mg PO BID [facility] Stop: 08/04/17 21:01 Last Admin: 02/04/17 08:27 Dose: 1,200 mg Heparin Sodium (Porcine) (Heparin) 4,200 unit 70 unit/kg (4200 unit) IVP Q6HR PRN PRN Reason: SEE COMMENTS Stop: 08/05/17 12:52 Heparin Sodium (Porcine) (Heparin) 2,100 unit 35 unit/kg (2100 unit) IVP Q6H PRN PRN Reason: SEE COMMENTS Stop: 08/05/17 12:52 Piperacillin Sod/Tazobactam (Sod 3.375 gm/ Dextrose) 100 mls @ 25 mls/hr IVPB Q8HR [facility] Stop: 08/05/17 00:01 Last Admin: 02/04/17 08:27 Dose: 25 mls/hr Heparin Sodium/Dextrose (Heparin 25,000 Unit/500 Ml D5w) 25,000 unit in 500 mls @ 16.604 mls/hr IVC .Q24H [facility]; 14 UNIT/KG/HR PRN Reason: Protocol Stop: 08/05/17 12:46 Last Titration: 02/04/17 06:35 Dose: 8.43 unit/kg/hr, 10 mls/hr Loratadine (Claritin) 10 mg PO DAILY [facility] PRN Reason: Protocol Stop: 08/04/17 09:01 Last Admin: 02/04/17 08:26 Dose: 10 mg Methylprednisolone (Solu-Medrol) 40 mg IVP Q8H [facility] Stop: 08/04/17 14:31 Last Admin: 02/04/17 06:33 Dose: 40 mg Montelukast Sodium (Singulair) 10 mg PO DAILY [facility] Stop: 08/04/17 09:01 Last Admin: 02/04/17 08:26 Dose: 10 mg Naloxone HCl (Narcan) 0.4 mg IVP Q2MIN PRN PRN Reason: Opioid Reversal Stop: 08/03/17 20:46 Nortriptyline HCl (Pamelor) 10 mg PO HS [facility] Stop: 08/03/17 21:01 Last Admin: 02/03/17 21:53 Dose: 10 mg Omeprazole (Prilosec) 40 mg PO DAILY [facility] Stop: 08/04/17 09:01 Last Admin: 02/04/17 08:26 Dose: 40 mg Potassium Chloride (Potassium Chloride) 40 meq PO DAILY [facility] Stop: 08/04/17 14:31 Last Admin: 02/04/17 08:26 Dose: 40 meq Sotalol HCl (Betapace) 80 mg PO Q12H [facility] Stop: 08/04/17 12:01 Last Admin: 02/04/17 00:46 Dose: 80 mg Tramadol HCl (Ultram) 50 mg PO QID PRN PRN Reason: Moderate Pain Stop: 08/03/17 21:56 Last Admin: 02/04/17 08:30 Dose: 50 mg Trimethoprim/Sulfamethoxazole (Bactrim Ss) 1 tab PO BID [facility] Stop: 08/04/17 09:01 Last Admin: 02/04/17 08:26 Dose: 1 tab Vitamin D (Vitamin D) 1,000 unit PO DAILY [facility] Stop: 08/04/17 09:01 Last Admin: 02/04/17 08:26 Dose: 1,000 unit - EKG Interpretation EKG results cardiology: other (12 hr tele AVG HR 76, appears to be maintaining SR.) Consult Discharge Plan - Plan Referrals: Christoph Hughes DO [Primary Care Provider] -
[2017-02-04] MEDS: Budesonide/Formoterol 160/4.5 MDI IH SCH ×2 (11:30→20:05)
[2017-02-04] MEDS: Ipratropium/Albuterol Neb 3 ML IH SCH ×4 (11:30→23:32)
[2017-02-04] MEDS ORDERED: Ipratropium/Albuterol Neb 3 ML IH PRN (16:25)
[2017-02-04] MEDS: Pantoprazole 40 MG VIAL IVP SCH (16:30)
[2017-02-04] MEDS: Gabapentin 100 MG CAPSULE PO SCH (21:47)
[2017-02-05] MEDS: Piperacillin/Tazobactam 3.375 GM in D5% in Water (Mini-Bag+) 100 ML IVPB SCH ×2 (00:42→09:11)
[2017-02-05] MEDS: Heparin 25,000 UNIT/500 ML D5W 25,000 UNIT/500 ML MLS IVC SCH (03:07)
[2017-02-05] MEDS: Acetylcysteine 10% 2 ML INHSOL IH SCH ×2 (03:54→10:50)
[2017-02-05] MEDS: Ipratropium/Albuterol Neb 3 ML IH SCH ×7 (03:56→23:13)
[2017-02-05 04:36] LABS: Hematocrit 35.6 % (35.3-44.9); Hemoglobin 11.2 g/dL (11.5-15.4); Immature Granulocytes % 1.1 % (0-4); Lymphocytes # 0.8 K/mcL (0.6-4.6); Mean Corpuscular HGB Conc 31.5 g/dL (31.6-35.5); Mean Corpuscular Hemoglobin 25.9 pg (28.0-33.3); Mean Corpuscular Volume 82.2 fL (83.0-100.0); Mean Platelet Volume 10.6 fL (9.4-12.4); Monocytes # 0.5 K/mcL (0.0-1.3); Monocytes % 4.5 %; Neutrophils # 9.5 K/mcL (1.6-8.9); Platelet Count 200 K/mcL (140-400); Red Blood Count 4.33 M/mcL (3.82-4.97); Segmented Neutrophils % 87.4 %
[2017-02-05 04:43] LABS: INR 1.4; Prothrombin Time 15.5 Seconds (9.4-12.1)
[2017-02-05 04:56] LABS: Activated Partial Thrombo Time 168.1 Seconds (26.0-36.0)
[2017-02-05 05:05] LABS: Heparin anti-factor XA UFH 0.38 IU/mL (0.30-0.70)
[2017-02-05] MEDS: Pantoprazole 40 MG VIAL IVP SCH ×2 (05:47→17:48)
[2017-02-05] MEDS: MethylPREDNISolone 40 MG/ML VIAL IVP SCH ×3 (05:47→22:06)
--- NOTE | 2017-02-05 07:48 | Electrocardiograph Report ---
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
--- NOTE | 2017-02-05 08:00 | Infectious Disease Progress No ---
Date of Encounter: 02/05/17 Time of Encounter: 08:00 - Assessment and Plan (1) Hospital-acquired pneumonia Current Visit: No Status: Acute Differential diagnosis for infiltrates on the left base includes active pneumonia, malignancy, pleural effusion or fibrosis. 02/02/17 CT chest without contrast reveals interval development of small right pleural effusion with increased dense consolidation in the right lower lobe, most compatible with pneumonia. Set opacification of basilar segmental bronchi suggesting mucous secretions and/or aspiration. Mediastinal and right hilar adenopathy is identified; the right hilar adenopathy is confluent with very dense perihilar masslike consolidation. Underlying neoplasm should be considered. Blood cultures collected 02/01/17 reveal no growth to date Sputum cultures collected 02/01/17 reveal Staphylococcus aureus sensitive to Bactrim, Zyvox, doxycycline, vancomycin, (patient is allergic to Rocephin, Cipro , Levaquin, and vancomycin) Leukocytosis resolved Currently on Bactrim DS PO BID and Zosyn 3.375mg IV q8h since 02/02/17 Recommendations: Bronchoscopy on 01/11/17 revealed atypical cells, suspicious for malignancy on right middle lobe, bronchoalveolar lavage and CT chest 02/02/17 suggests underlying neoplasm should be considered. Case discussed with Pulmonary, Dr. Siddiqi. Anticipate bronchoscopy today. Staphylococcus aureus on sputum culture, continue Zosyn at this time. Stop Bactrim. Will further adjust antibiotic regimen as needed based on bronchoscopy results. Will start Augmentin upon discharge. Overall prognosis is very poor based on her pulmonary function. We'll continue to follow closely. Monitor renal function/ labs for drug toxicity, will renally adjust antibiotic dose as needed. (2) Failure of outpatient treatment Current Visit: No Status: Acute Patient has been admitted multiple times since October 2016 for pneumonia and was previously treated with Doxycycline, Bactrim, and Zosyn. Patient reports she has very limited IV access and required new port placement by IR on 01/04/17. Bronchoscopy completed on 01/10/17 confirmed growth of persistent Stenotrophomonas maltophilia found on sputum culture as far back as 10/10/2016. She was most recently discharged on 01/12/17 with Bactrim DS to finish total 14 -day course of treatment for pneumonia. (3) Acute exacerbation of chronic obstructive pulmonary disease (COPD) Current Visit: No Status: Acute Current management per primary team: Solu-Medrol, Bactrim, Zosyn Duonebs, Mucinex (4) Mucus plugging of bronchi Current Visit: No Status: Chronic Pulmonology following. Anticipate Bronchoscopy 02/05/17. (5) Atrial flutter with rapid ventricular response Current Visit: Yes Status: Chronic Heart rate currently controlled on sotalol. Cardiology following - Subjective Interval history: Patient seen and examined. Patient is sitting up at bedside and reports decreased difficulty breathing today. She reports shortness of breath while showering earlier this morning. She is currently nothing by mouth status awaiting bronchoscopy and EGD this afternoon. Patient is requiring 3 L supplemental oxygen today, her baseline 2L O2 requirement. She denies fever, chills, CP, abd pain, N/V/D/C, dysuria, or leg edema. Family is not present during the time of exam. Infect Dis PN-Objective Data - Labs CBC & Chem 7: 02/05/17 04:20 02/04/17 04:55 Labs: Laboratory Results - last 24 hr 02/04/17 02/04/17 02/05/17 15:20 22:05 04:20 WBC 10.9 RBC 4.33 Hgb 11.2 L Hct 35.6 MCV 82.2 L MCH 25.9 L MCHC 31.5 L RDW 16.0 H Plt Count 200 MPV 10.6 Immature Gran % 1.1 Seg Neutrophils % 87.4 Lymphocytes % 7.0 Monocytes % 4.5 Eosinophils % 0.0 Basophils % 0.0 Neutrophils # 9.5 H Lymphocytes # 0.8 Monocytes # 0.5 Eosinophils # 0.0 Basophils # 0.0 PT INR APTT 49.6 H D 84.5 H D Heparin Anti-Xa, Unfract 02/05/17 04:20 WBC RBC Hgb Hct MCV MCH MCHC RDW Plt Count MPV Immature Gran % Seg Neutrophils % Lymphocytes % Monocytes % Eosinophils % Basophils % Neutrophils # Lymphocytes # Monocytes # Eosinophils # Basophils # PT 15.5 H INR 1.4 APTT 168.1 H* D Heparin Anti-Xa, Unfract 0.38 Cultures: Cultures 02/01/17 23:52 Sputum Culture - Final Sputum Staphylococcus aureus Serology 02/03/17 Range/Units 00:45 Stool Occult Blood Positive A (Negative) Exam - Constitutional Vitals: Temp Pulse Resp BP Pulse Ox 97.8 F 70 18 114/72 94 08/04/17 07:46 02/05/17 07:46 02/05/17 07:46 02/05/17 07:46 02/05/17 07:46 General appearance: average body habitus, cooperative, no acute distress, no febrile Exam: Conversational dyspnea - Head Head exam: Present: atraumatic, normal inspection, normocephalic - Eye Eye exam: Present: conjuntiva pink Pupils: Present: PERRL - ENT ENT exam: Present: mucous membranes moist, normal oropharynx Additional comments: No leukoplakia - Neck Neck exam: Present: normal inspection. Absent: lymphadenopathy, meningismus, tenderness, thyromegaly - Respiratory Respiratory exam: Present: decreased breath sounds, prolonged expiratory phase. Absent: rales, rhonchi, wheezes Additional comments: Good air movement bilaterally - Cardiovascular Cardiovascular exam: Present: RRR, +S1, +S2 - GI/Abdominal GI/Abdominal exam: Present: normal bowel sounds, soft. Absent: guarding, tenderness - Extremities Exam Extremities exam: Present: normal inspection, pedal edema (1+ edema bilateral lower extremities) Additional comments: clubbing - Neurological Exam Neurological exam: Present: alert, altered, CN II-XII intact - Psychiatric Psychiatric exam: Present: anxious, normal mood - Skin Skin exam: Present: dry, warm. Absent: rash Consult Discharge Plan - Plan Referrals: Christoph Hughes DO [Primary Care Provider] - - Attending Attestation I examined this patient and my medical decision-making was reviewed with the Resident Physician. I agree with the documented findings, disposition and treatment plan as described except to the extent set forth below.
--- NOTE | 2017-02-05 09:38 | Cardiology Progress Note ---
Date of Encounter: 02/05/17 Time of Encounter: 09:37 Assessment and Plan (1) Atrial fibrillation with RVR Current Visit: Yes Status: Acute Per Cardiology: Hx of PAF, now on sotalol 80 mg by mouth twice a day. Currently sinus rhythm in the 70s and 80s on telemetry. One dose was held evening of 8 due to concerns of hypotension. Discontinued Toprol. Continue with sotalol and please do not hold unless directed by cardiology. QT/QTc baseline 331/382 ms and current ECG 456/459ms. Daily EKGs demonstrate QTc has remained <500ms. Pt has received 5 doses. Anticoagulated with Coumadin managed by [facility]. INR subtherapeutic due to Coumadin being held pending bronchoscopy and EGD. INR 1.4 today. Patient has mechanical mitral valve and atrial fibrillation. Target INR 2.5-3.5. Coumadin needs to be resumed when able due to her mechanical mitral valve. Heparin gtt stopped this AM for procedures (EGD and bronchoscopy) today. Recommend stopping 4 hours prior to procedures, with a maximum time of 6 hours off heparin due to her mechanical mitral valve and need for lowering the risk of thrombosis. Resume Coumadin tonight. Restart heparin gtt once back from procedures. Will need bridged until INR at goal of 2.5-3.5. Cardiology signing off. Reconsult PRN. Follow-up as outpt in 2-3 weeks. Will coordinate. (2) Acute and chronic respiratory failure Current Visit: No Status: Acute Per Cardiology: Pulmonology following. ID following. Pt with HCAP, pleural effusion, COPD exacerbation. Qualifiers: Respiratory failure complication: hypoxia Qualified Code(s): J96.21 - Acute and chronic respiratory failure with hypoxia (3) Acute blood loss anemia Current Visit: No Status: Acute Per Cardiology: GI following with plan for EGD today. Coumadin on hold with heparin gtt bridging , currently on hold. Need to continue heparin gtt after procedures until target INR achieved of 2.5-3.5 due to mechanical mitral valve. Heparin stopped tis AM. Recommend stopping 4 hours prior to procedures, with a maximum time of 6 hours off heparin due to her mechanical mitral valve and need for lowering the risk of thrombosis. (4) CAD (coronary artery disease) Current Visit: No Status: Chronic Per Cardiology: Known history of CAD with CABG 3 including the clinic in 2007 with negative stress test September 2013. Last echo September 2016 showed EF 65-70%, no segment wall motion abnormalities, mild diastolic dysfunction, normal RV size and function, severe dilated left atrium, chemical mitral valve with normal function. Chest pain-free. Troponin negative 1. Qualifiers: Coronary Disease-Associated Artery/Lesion type: king [place] artery [place] vs. transplanted heart: king salmon heart Associated angina: without angina Qualified Code(s): I25.10 - Atherosclerotic heart disease of king salmon coronary artery without angina pectoris (5) H/O mitral valve replacement with mechanical valve Current Visit: No Status: Chronic Per Cardiology: Again history of mechanical mitral valve with normal function on echo September 2016. Anticoagulation as above, goal 2.5-3.5. Resume heparin gtt after procedures. Resume Coumadin tonight. Needs bridging until INR at goal of 2.5- 3.5. Discussion w patient/family: The assessment and plan as outlined above was discussed with the patient and/or family members who expressed understanding and agreement. All questions were answered. Thank you for involving us in the care of your patient. Please call with any questions. I will discuss all the above with Dr. Teddy Fierro and make changes as necessary. Subjective Principal diagnosis: Afib Interval history: Pt reports dyspnea has improved since yesterday, but still persists. She denies palpitations or chest pain this AM. SR on telemetry. Denies any recurrence of blood in stool or sputum. HGB stable. Has received 5 doses of Sotalol. Coumadin on hold due to bronchoscopy and EGD today. INR subtherapeutic 1.4 (goal 2.5-3.5) , heparin gtt on hold as of 729 for procedures today. Objective Vital Signs, Last 4 Hours Temp Pulse Resp BP Pulse Ox 02/05/17 07:46 97.8 F 70 18 114/72 94 Vital Signs Temp Pulse Resp BP Pulse Ox 02/05/17 07:46 97.8 F 70 18 114/72 94 02/05/17 04:15 97.7 F 65 15 100/61 96 02/05/17 03:56 20 96 02/04/17 23:32 16 02/04/17 22:00 96 02/04/17 20:26 18 96 02/04/17 19:18 98 F 75 18 112/74 96 08/03/17 16:11 16 98 02/04/17 15:00 75 17 118/71 96 02/04/17 11:31 16 93 Intake and Output 02/04/17 02/05/17 02/05/17 23:59 07:59 15:59 Intake Total 560 / 560 155 / 155 Output Total 3400 / 3400 Balance -2840 / -2840 155 / 155 Intake: IV Fluids 320 / 320 155 / 155 Heparin 25,000 UNIT/500 220 / 220 55 / 55 ML D5W 25,000 unit In 500 ml @ 14 UNIT/KG/HR 16. 604 mls/hr IVC .Q24H [facility] Rx#:[id number] Zosyn 3.375 GM In 100 / 100 100 / 100 Dextrose 5% (Minibag+) 100 ML 100 ML @ 25 mls/hr IVPB Q8HR CAYLA Rx#: [id number] Oral 240 / 240 Output: Urine 3400 / 3400 Other: Meal Dinner Percent of Meal Consumed 80% Weight 59 kg Patient Weight 02/05/17 23:59 Weight 59 kg General: Conversant, No Apparent Distress HEENT: Atraumatic, Normocephaly, Mucus Membranes Moist Neck: No JVD, Normal carotid pulses Cardiac: Reg Rate and Rhythm, Normal S1 and S2, No Murmur Lungs: Other (diminished) Neuro: Alert and responsive, No focal deficits noted Abdomen: Soft, Non-Tender Skin: No rashes noted on visualized skin Musculoskeletal: No Chest Wall Tenderness Extremities: Other (mild BLE edema) Results 02/05/17 04:20 02/04/17 04:55 Lab Results 02/04/17 02/04/17 02/05/17 15:20 22:05 04:20 WBC 10.9 Hgb 11.2 L Hct 35.6 Plt Count 200 INR APTT 49.6 H D 84.5 H D 02/05/17 04:20 WBC Hgb Hct Plt Count INR 1.4 APTT 168.1 H* D Short CBC 02/05/17 Range/Units 04:20 WBC 10.9 (4.3-11.1) K/mcL Hgb 11.2 L (11.5-15.4) g/dL Hct 35.6 (35.3-44.9) % Plt Count 200 (140-400) K/mcL Neutrophils # 9.5 H (1.6-8.9) K/mcL Active Medications Acetylcysteine (Acetylcysteine 10%) 2 ml IH [id number] [facility] Stop: 08/03/17 22:01 Last Admin: 02/05/17 03:54 Dose: 2 ml Albuterol/Ipratropium (Duoneb) 3 ml IH [id number] [facility] Stop: 08/06/17 12:01 Last Admin: 02/05/17 03:56 Dose: 3 ml Albuterol/Ipratropium (Duoneb) 3 ml IH Q2HR PRN PRN Reason: Shortness Of Breath/Wheezing Stop: 08/06/17 16:26 Allopurinol (Zyloprim) 100 mg PO DAILY [facility] Stop: 08/04/17 09:01 Last Admin: 02/04/17 08:26 Dose: 100 mg Atorvastatin Calcium (Lipitor) 10 mg PO HS [facility] Stop: 08/03/17 21:01 Last Admin: 02/04/17 21:46 Dose: 10 mg Budesonide/Formoterol Fumarate (Symbicort) 2 puff IH BIDR [facility]LA PRN Reason: Protocol Stop: 08/06/17 11:16 Last Admin: 02/04/17 20:05 Dose: 2 puff Calcium Carbonate (Tums) 500 mg PO BID [facility] Stop: 08/03/17 21:01 Last Admin: 02/04/17 21:47 Dose: 500 mg Furosemide (Lasix) 40 mg PO BIDDIURETIC [facility] Stop: 08/06/17 08:01 Last Admin: 02/04/17 16:31 Dose: 40 mg Gabapentin (Neurontin) 200 mg PO HS [facility] Stop: 08/03/17 21:01 Last Admin: 02/04/17 21:47 Dose: 200 mg Guaifenesin (Mucinex) 1,200 mg PO BID [facility] Stop: 08/04/17 21:01 Last Admin: 02/05/17 09:14 Dose: Not Given Heparin Sodium (Porcine) (Heparin) 4,200 unit 70 unit/kg (4200 unit) IVP Q6HR PRN PRN Reason: SEE COMMENTS Stop: 08/05/17 12:52 Heparin Sodium (Porcine) (Heparin) 2,100 unit 35 unit/kg (2100 unit) IVP Q6H PRN PRN Reason: SEE COMMENTS Stop: 08/05/17 12:52 Last Admin: 02/04/17 16:30 Dose: 2,100 unit Piperacillin Sod/Tazobactam (Sod 3.375 gm/ Dextrose) 100 mls @ 25 mls/hr IVPB Q8HR [facility] Stop: 08/05/17 00:01 Last Admin: 02/05/17 09:11 Dose: 25 mls/hr Heparin Sodium/Dextrose (Heparin 25,000 Unit/500 Ml D5w) 25,000 unit in 500 mls @ 16.604 mls/hr IVC .Q24H [facility]LA; 14 UNIT/KG/HR PRN Reason: Protocol Stop: 08/05/17 12:46 Last Titration: 02/05/17 06:20 Dose: 7.96 unit/kg/hr, 9.441 mls/hr Loratadine (Claritin) 10 mg PO DAILY [facility] PRN Reason: Protocol Stop: 08/04/17 09:01 Last Admin: 02/04/17 08:26 Dose: 10 mg Methylprednisolone (Solu-Medrol) 40 mg IVP Q8H [facility] Stop: 08/04/17 14:31 Last Admin: 02/05/17 05:47 Dose: 40 mg Montelukast Sodium (Singulair) 10 mg PO DAILY [facility] Stop: 08/04/17 09:01 Last Admin: 02/04/17 08:26 Dose: 10 mg Naloxone HCl (Narcan) 0.4 mg IVP Q2MIN PRN PRN Reason: Opioid Reversal Stop: 08/03/17 20:46 Nortriptyline HCl (Pamelor) 10 mg PO HS [facility] Stop: 08/03/17 21:01 Last Admin: 02/04/17 21:47 Dose: 10 mg Pantoprazole Sodium (Protonix) 40 mg IVP Q12HR [facility] Stop: 08/06/17 18:01 Last Admin: 02/05/17 05:47 Dose: 40 mg Potassium Chloride (Potassium Chloride) 40 meq PO DAILY [facility] Stop: 08/04/17 14:31 Last Admin: 02/04/17 08:26 Dose: 40 meq Sotalol HCl (Betapace) 80 mg PO Q12H [facility] Stop: 08/06/17 22:01 Last Admin: 02/05/17 09:28 Dose: 80 mg Tramadol HCl (Ultram) 50 mg PO QID PRN PRN Reason: Moderate Pain Stop: 08/03/17 21:56 Last Admin: 02/04/17 21:46 Dose: 50 mg Trimethoprim/Sulfamethoxazole (Bactrim Ss) 1 tab PO BID [facility] Stop: 08/04/17 09:01 Last Admin: 02/04/17 21:46 Dose: 1 tab Vitamin D (Vitamin D) 1,000 unit PO DAILY [facility] Stop: 08/04/17 09:01 Last Admin: 02/04/17 08:26 Dose: 1,000 unit - EKG Interpretation EKG results cardiology: other (12 hr tele AVG HR 69, SR. No significant pauses or arrhythmias) Consult Discharge Plan - Plan Referrals: Christoph Hughes DO [Primary Care Provider] -
[2017-02-05] MEDS ORDERED: Lidocaine -MPF 4% 5 ML AMPUL TP ONE (09:48)
[2017-02-05] MEDS ORDERED: EPHEDrine 50 MG/ML VIAL IVP ONE (09:48)
[2017-02-05] MEDS ORDERED: *HR* Propofol 500 MG/50 ML BOTTLE IVC ONE (09:48)
[2017-02-05] MEDS ORDERED: *HR* Propofol 200 MG/20 ML VIAL IVP ONE (09:48)
--- NOTE | 2017-02-05 10:39 | Anesthesia Evaluation PreOp ---
Date of Encounter: 02/05/17 Time of Encounter: 10:37 - Past History Planned Operation: EGD/EBUS/Bronchoscopy Cardiac History: MA, HTN, Hyperlipidemia, Arrhythmia (Afib RVR this admission), Cardiac Surgery (MVE), Cardiac Stent Pulmonary History: Former smoker, COPD (O2 as needed at night), KYLIE Dx, Other ( Chronic Resp fauilure) DIRECTOR OF INVESTIGATIONS History: Denies Any Significant HX Other Medical History: GERD (Hiatal hernia) Anesthesia History: No Prior Anesthetic Complications, Past Anesthesia ( mastoidectomy, tubal, L-TSR, CABG, MVR, aport, Bronchoscopy) : No Alcohol Use: none Drug use: none Medications and Allergies Albuterol Sulfate [Albuterol Inhaler] 1 - 2 puff IH Q4HR PRN 11/24/15 [History] Allopurinol [Zyloprim 100 MG] 100 mg PO DAILY 11/24/15 [History] Budesonide/Formoterol 160/4.5 [Symbicort 160/4.5] 2 puff IH BIDR 11/24/15 [ History] Calcium Carbonate [Calcium] 500 mg PO BID 11/24/15 [History] Cholecalciferol (D-3) [Vitamin D] 2,000 unit PO DAILY 11/24/15 [History] Fluticasone Propionate Nasal [Flonase] 1 spray NS DAILY 11/24/15 [History] Gabapentin [Neurontin] 200 mg PO HS 11/24/15 [History] Loratadine [Claritin] 10 mg PO DAILY 11/24/15 [History] Metoprolol XL (24 HR) Succ [Toprol Xl] 12.5 mg PO BID 11/24/15 [History] Montelukast [Singulair] 10 mg PO DAILY 11/24/15 [History] Nitroglycerin [Nitrostat] 0.4 mg SL Q5M PRN 11/24/15 [History] Nortriptyline [Pamelor] 10 mg PO HS 11/24/15 [History] Roflumilast [Daliresp] 500 mcg PO DAILY 11/24/15 [History] Vitamin B Complex [B Complex] 1 tab PO DAILY 11/24/15 [History] Umeclidinium Dunnegan [Incruse Ellipta] 1 puff IH DAILY 12/17/15 [History] Atorvastatin [Lipitor] 10 mg PO HS 01/01/16 [History] Albuterol Neb [Proventil Neb] 2.5 mg IH Q4HR PRN 08/25/16 [History] Bifidobacterium Infantis [Align] 4 mg PO DAILY 08/25/16 [History] Oxygen 2 l IN CONT #1 each 08/26/16 [Rx] Tramadol HCl 50 - 100 mg PO QID PRN 09/13/16 [History] Esomeprazole Magnesium [Nexium] 40 mg PO DAILY #30 capsule. 10/03/16 [Rx] Furosemide [Lasix] 40 mg PO BID #60 tablet 10/03/16 [Rx] Acetylcysteine [E-Exoivt-e-Cysteine] 600 mg PO BID 10/08/16 [History] Warfarin [Coumadin] 2.5 mg PO FRSA 01/18/17 [History] Warfarin [Coumadin] 5 mg PO SUWE 01/18/17 [History] Warfarin [Coumadin] 7.5 mg PO TUTH 01/18/17 [History] Diltiazem CD (24hr) [Cardizem CD] 180 mg PO DAILY #30 01/22/17 [Rx] Potassium Chloride [K-Tab ER] 30 meq PO DAILY 02/01/17 [History] predniSONE [PredniSONE] See Taper PO TAPER 02/01/17 [History] Allergies ceftriaxone [From Rocephin] Allergy (Severe, Verified 01/18/17 09:26) Hives ciprofloxacin [From Cipro HC] Allergy (Severe, Verified 01/18/17 09:26) Hives levofloxacin [From Levaquin] Allergy (Severe, Verified 01/18/17 09:26) Hives hydrocortisone [From Cipro HC] Allergy (Intermediate, Verified 01/18/17 09:26) Hives vancomycin Allergy (Mild, Verified 01/18/17 09:26) Rash Spoke with ID from [facility], in 2007 presented with skin rash which was subsequently attributed to either vancomycin, amiodarone, or another medicine as all other causes were ruled out. Important to note this was recorded as a rash and not hives, trouble breathing, etc. - Meds/Allergy Pre-op Review Medications Reviewed: Yes Allergies Reviewed: Yes Beta Blockers on Current Med List: Yes If Beta Blockers taken, Date/Time (Last Dose taken): 09:28 02/05/2017 Anesthesia Results - Labs 02/05/17 04:20 02/04/17 04:55 echocardiogram Name: aYsmeen Dewitt Date of Study: 09/30/2016 Indications: Congestive heart failure Impressions: Normal LV systolic function, LVEF 65-70%. Atypical septal motion consistent with prior cardiac surgery. Mild left ventricular diastolic dysfunction. Normal right ventricular size and function. Severely dilated left atrium. Mechanical mitral valve with normal function. Unable to estimate RVSP due to lack of TR jet. Stress 2014 EF-75% No ischemia - Imaging EKG: report reviewed (SINUS RHYTHM WITH SINUS ARRHYTHMIA LOW QRS VOLTAGE IN EXTREMITY LEADS) Anesthesia Exam O2 Sat Weight 59 kg Weight 60.3 kg O2 Sat by Pulse Oximetry 94 O2 Sat by Pulse Oximetry 96 O2 Sat by Pulse Oximetry 96 O2 Sat by Pulse Oximetry 96 O2 Sat by Pulse Oximetry 96 O2 Sat by Pulse Oximetry 96 O2 Sat by Pulse Oximetry 98 O2 Sat by Pulse Oximetry 96 O2 Sat by Pulse Oximetry 93 Vital Signs Temp Pulse Resp BP Pulse Ox 98.7 F 165 16 98/69 99 02/01/17 16:20 02/01/17 16:20 02/01/17 16:20 02/01/17 16:20 02/01/17 16:20 Vital Signs/O2 Sat, Most Current Temp Pulse Resp BP Pulse Ox 97.8 F 70 18 114/72 94 02/05/17 07:46 02/05/17 07:46 02/05/17 07:46 02/05/17 07:46 02/05/17 07:46 Height: 4'9'' Weight: 130# NPO (# of Hours): > 8 hrs Pain Scale: 0 Pain Scale Used: Numeric (1 - 10) - HEENT Pupil (Motor): Pupils equal, EOMI Teeth: Edentulous Oral Opening: Greater than 3 - DIRECTOR OF INVESTIGATIONS LOC: Oriented DIRECTOR OF INVESTIGATIONS Motor: Normal RUE, Normal LUE, Normal RLE, Normal LLE, Normal Face DIRECTOR OF INVESTIGATIONS Sensory: Normal: RUE, LUE, RLE, LLE, Face - Cardiac Rhythm: Regular Murmur: None JVD: No Carotid Bruit: No - Pulmonary Breath Sounds: bilateral Clear Respiratory Effort: Symmetrical Anesthesia Assess/Plan ASA Score: 4 Modified Erich Scale for Level of Consciousness: Cooperative, oriented, and tranquil Anesthetic Plan: General Autologous Blood: Yes Monitoring Plan: Standard Monitors Recovery Plan: PACU
[2017-02-05] MEDS: Budesonide/Formoterol 160/4.5 MDI IH SCH ×2 (10:50→20:27)
--- NOTE | 2017-02-05 11:45 | Electrocardiograph Report ---
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
[2017-02-05] MEDS ORDERED: Ondansetron 4 MG/2 ML VIAL IVP ONE ×2 (12:37→16:29)
[2017-02-05] MEDS ORDERED: *HR* Promethazine 25 MG/ML VIAL IVP PRN (12:37)
[2017-02-05] MEDS ORDERED: Albuterol 2.5 MG/3 ML NEBULIZER IH ONE (12:37)
[2017-02-05] MEDS ORDERED: *HR* EPINEPHrine 1 MG/10 ML SYRINGE IVP ONE (13:02)
[2017-02-05] MEDS ORDERED: *HR* FentaNYL (PF) 100 MCG/2 ML VIAL ONE (14:59)
[2017-02-05] MEDS ORDERED: *HR* EPINEPHrine 1 MG/10 ML SYRINGE ONE (14:59)
[2017-02-05 15:30] LABS: Appearance of Body Fluid Cloudy (Clear); Volume of Body Fluid 24 mL
[2017-02-05] MEDS: Loratadine 10 MG TABLET PO SCH (16:08)
[2017-02-05] MEDS: Cholecalciferol (D-3) 1,000 UNIT TABLET PO SCH (16:08)
[2017-02-05] MEDS: Furosemide 40 MG TABLET PO SCH ×2 (16:09)
[2017-02-05] MEDS ORDERED: *HR* Water for inj. (sterile) 10 ML VIAL IV ONE (16:29)
[2017-02-05] MEDS ORDERED: 0.9 % Sodium Chloride 10 ML PF VIAL IVP ONE (16:29)
[2017-02-05] MEDS ORDERED: *HR* Phenylephrine 10 MG/ML VIAL IVC ONE (16:29)
[2017-02-05] MEDS ORDERED: *HR* Succinylcholine 200 MG/10 ML VIAL IVP ONE (16:29)
[2017-02-05] MEDS ORDERED: Lidocaine -MPF 2% 5 ML VIAL INFILT ONE (16:29)
[2017-02-05] MEDS: Amoxicillin/Clavulanate 500 MG TABLET PO SCH (17:53)
[2017-02-05] MEDS: *HR* Enoxaparin 60 MG/0.6 ML SYRINGE SQ SCH (17:53)
[2017-02-05] MEDS ORDERED: Warfarin perPT PO PRN (18:00)
[2017-02-05] MEDS ORDERED: *HR* Warfarin 5 MG TABLET PO ONE (18:00)
--- NOTE | 2017-02-05 18:09 | Internal Med Progress Note ---
Date of Encounter: 02/05/17 Time of Encounter: 18:08 - Assessment and plan (1) Pneumonia Current Visit: Yes Status: Acute Qualifiers: Pneumonia type: due to other aerobic Gram-negative bacteria Laterality: right Lung location: lower lobe of lung Qualified Code(s): J15.6 - Pneumonia due to other aerobic Gram-negative bacteria (2) Diastolic CHF Current Visit: Yes Status: Chronic Qualifiers: Congestive heart failure chronicity: chronic Qualified Code(s): I50.32 - Chronic diastolic (congestive) heart failure (3) CKD (chronic kidney disease) stage 3, GFR 30-59 ml/min Current Visit: Yes Status: Chronic (4) COPD exacerbation Current Visit: Yes Status: Acute (5) Atrial fibrillation with RVR Current Visit: Yes Status: Acute - Subjective Interval history: Mrs. Chris Dewitt s a 71-year-old female admitted founcontrolled atrial fibrillation. Previously she was tried on beta Blockers and amiodarone. Cardiologyconsulted who have restarted her on sotalol Patient is in sinus rhythm. She has prosthetic mitral valve A. fib and she is on Coumadin with target INR 2.5-3.5. However on admission her INR was 5 therefore Coumadin was put on hold. patient was noted to have right sided consolidation and lymphadenopathy and previous BAL showed atypical cells. Since she planned to have bronchoscopy therefore Coumadin is on hold and per cardiology she will be bridgewith IV heparinin the meantime. Pulmonology was consulted. Apparently she was scheduled to get bronchoscopy as outpatient According o cardiologypractitioner she had ablack tarry stool this morning. Her hemoglobin is only modestly dropped from admission from 13-11 and seems reasonably stable. GI is consulted as this would be a high time to do while she will be off Coumadin. She will be on PPI. she has left-sided consolidation with effusioni consistent with pneumonia. Previous BAL showed Stenotrophomonas maltophilia. Infectious disease is on case. 02/04 #1 admitted for uncontrolled A. fib and now very well controlled with sotalol. She has a prosthetic mitral valve and therefore target INR is between 2.5 and 3.5 on Coumadin which is on hold for possible bronchoscopy #2 recurrent pneumonia with Stenotrophomonas maltophilia. On recent CT chest bilateral infiltrates with effusion off which left infiltrate has been present for a while. Currently on Zosyn and Bactrim. Renal functions are satisfactory and will be monitored as well as CBC. This morning white count has increased to 15,000. Patient has failed multiple antibiotic treatment in the past. Infectious disease on the case. Also has COPD for which she gets nebulizer treatments and seems to have responded well as reflected by the ABG drawn yesterday. She will be okay with 1-2 L oxygen only. #3 consent for malignancy raised from infectious disease especially because she has confluent right hilar lymphadenopathy and also bilateral to basal consolidation which could be pneumonia versus malignancy especially tender on the left side. Previous bronchoscopy yielded not satisfactory and Dr. Schultz plans to do another one after INR drops down further. She is on IV heparin and Coumadin is on hold for the same reason. #4 positive Hemoccult of stool but hemoglobin is quite stable and actually improving. She has seen Dr. Chauhan in the past who presented to endoscopy's as outpatient. I think continue current morbidity and her stable hemoglobin we can hold on her colonoscopy. #5 her CHF COPD CKD No complaints. INR is below 1.4. Plan to get endoscopies and bronched/biopsy today. Infectious disease plan to keep her on Augmentin and Bactrim as outpatient. If she goes home she will be on Coumadin and Lovenox for bridging as he has prosthetic mitral valve and will certainly need bridging. I will keep her day after procedures to see if she remains stable. - Constitutional Vitals: Temp Pulse Resp BP Pulse Ox 97.7 F 67 18 123/67 95 02/05/17 15:13 02/05/17 15:13 02/05/17 16:38 02/05/17 15:13 02/05/17 16:38 General appearance: Present: A&O X 3, answers questions appropriately - Head Head exam: Present: atraumatic, normocephalic - Eye Eye exam: Present: PERRL, conjuntiva pink, sclera anicteric Pupils: Present: PERRL - Neck Neck exam general surgery: Present: supple, trachea midline. Absent: lymphadenopathy - Respiratory Respiratory exam: Present: CTAB. Absent: accessory muscle use, rales, rhonchi, wheezes - Cardiovascular Cardiovascular exam: Present: RRR, +S1, +S2. Absent: diastolic murmur, gallop, rubs, systolic murmur - GI/Abdominal GI/Abdominal exam: Present: normal bowel sounds, soft, no peritoneal signs. Absent: distended, tenderness - Extremities Exam Extremities exam: Present: warm, radial pulses palpable and symetrical. Absent : calf tenderness, cyanotic, pedal edema - Neurological Exam Neurological exam: Present: CN II-XII intact, oriented X3, no focal deficits. Absent: pronater drift, facial droop, speech deficit - Skin Skin exam: Present: dry, intact Internal Medicine: Result - Labs CBC & Chem 7: 02/05/17 04:20 02/04/17 04:55 Labs: Short CBC 02/05/17 Range/Units 04:20 WBC 10.9 (4.3-11.1) K/mcL Hgb 11.2 L (11.5-15.4) g/dL Hct 35.6 (35.3-44.9) % Plt Count 200 (140-400) K/mcL Neutrophils # 9.5 H (1.6-8.9) K/mcL - ABG Interpretation ABG results: ABG ABG pH 7.42 pH Units (7.32-7.45) 02/04/17 06:20 ABG pCO2 42 mmHg (35-45) 02/04/17 06:20 ABG pO2 129 mmHg (85-104) H 02/04/17 06:20 ABG O2 Saturation 99 % (95-98) H 02/04/17 06:20 PT/INR, D-dimer PT 15.5 Seconds (9.4-12.1) H 02/05/17 04:20 Consult Discharge Plan - Plan Referrals: Christoph Hughes DO [Primary Care Provider] -
[2017-02-05] MEDS: Gabapentin 100 MG CAPSULE PO SCH (22:06)
[2017-02-05] MEDS: traMADol 50 MG TABLET PO PRN (22:06)
[2017-02-06] MEDS: Ipratropium/Albuterol Neb 3 ML IH SCH ×6 (04:01→23:50)
[2017-02-06] MEDS: Pantoprazole 40 MG VIAL IVP SCH ×2 (05:29→17:52)
[2017-02-06] MEDS: MethylPREDNISolone 40 MG/ML VIAL IVP SCH ×3 (05:29→22:15)
[2017-02-06 05:49] LABS: INR 1.2; Prothrombin Time 12.6 Seconds (9.4-12.1)
[2017-02-06 05:57] LABS: Alanine Aminotransferase 20 Units/L (0-55); Albumin 2.6 g/dL (3.5-5.0); Alkaline Phosphatase 134 Units/L (38-126); Aspartate Amino Transferase 16 Units/L (5-34); BUN/Creatinine Ratio 34 (6-26); Blood Urea Nitrogen 38 mg/dL (7-20); Calcium 8.3 mg/dL (8.6-10.8); Carbon Dioxide 33 mEq/L (19-29); Chloride 102 mEq/L (98-109); Globulin 2.6 g/dL (2.4-3.5); Glucose 108 mg/dL (70-99); Osmolality,Calculated 298 (280-300); Potassium 4.8 mEq/L (3.5-4.5); Sodium 139 mEq/L (136-145); Total Protein 5.2 g/dL (6.0-8.3); eGFR For African Americans 58 (> 60); eGFR For Non-African Americans 48 (> 60)
[2017-02-06 06:04] LABS: Bilirubin,Total < 0.3 mg/dL (0.2-1.2)
[2017-02-06] MEDS: Budesonide/Formoterol 160/4.5 MDI IH SCH ×2 (08:01→19:38)
[2017-02-06] MEDS: Cholecalciferol (D-3) 1,000 UNIT TABLET PO SCH (09:09)
[2017-02-06] MEDS: Loratadine 10 MG TABLET PO SCH (09:09)
[2017-02-06] MEDS: Amoxicillin/Clavulanate 500 MG TABLET PO SCH ×2 (09:09→17:52)
[2017-02-06] MEDS: Furosemide 40 MG TABLET PO SCH ×2 (09:09→17:52)
--- NOTE | 2017-02-06 11:18 | Pulmonology Progress Note ---
Date of Encounter: 02/06/17 Time of Encounter: 10:35 Assessment and Plan (1) Mediastinal adenopathy Current Visit: Yes Status: Acute Status post bronchoscopy and biopsy and preliminary are normal waiting for final report. This is discussed with the patient as well as family. (2) Chronic respiratory failure Current Visit: Yes Status: Chronic Keep SPO2 around 90% Qualifiers: Respiratory failure complication: unspecified whether with hypoxia or hypercapnia Qualified Code(s): J96.10 - Chronic respiratory failure, unspecified whether with hypoxia or hypercapnia (3) Pneumonia Current Visit: Yes Status: Acute Patient is on antibiotics and the BAL result is pending. Qualifiers: Pneumonia type: due to other aerobic Gram-negative bacteria Laterality: right Lung location: lower lobe of lung Qualified Code(s): J15.6 - Pneumonia due to other aerobic Gram-negative bacteria Subjective Principal diagnosis: Afib Interval history: Patient is feeling slightly better after bronchoscopy Objective PUL Vital signs: Last Vital Signs Temp 97.8 F 02/06/17 07:00 Pulse 65 02/06/17 07:00 Resp 17 02/06/17 07:00 BP 125/76 02/06/17 07:00 Pulse Ox 98 02/06/17 08:00 General appearance: no acute distress Eyes: nonicteric ENT: oropharynx moist Neck: supple, no lymphadenopathy Effort: normal Auscultation: bilateral: egophony Percussion: bilateral: not dull Cardiovascular: irregular rhythm, murmur noted Gastrointestinal: normoactive bowel sounds, non-distended Extremities: no cyanosis, edema normal mental status, non-focal exam mood appropriate Results - Laboratory Findings CBC and BMP: 02/05/17 04:20 02/06/17 05:36 ABG ABG pH 7.42 pH Units (7.32-7.45) 02/04/17 06:20 ABG pCO2 42 mmHg (35-45) 02/04/17 06:20 ABG pO2 129 mmHg (85-104) H 02/04/17 06:20 ABG O2 Saturation 99 % (95-98) H 02/04/17 06:20 PT/INR, D-dimer PT 12.6 Seconds (9.4-12.1) H 02/06/17 05:36 Abnormal lab findings: Abnormal lab results Hgb 11.2 g/dL (11.5-15.4) L 02/05/17 04:20 MCV 82.2 fL (83.0-100.0) L 02/05/17 04:20 MCH 25.9 pg (28.0-33.3) L 02/05/17 04:20 MCHC 31.5 g/dL (31.6-35.5) L 02/05/17 04:20 RDW 16.0 % (11.5-14.5) H 02/05/17 04:20 Neutrophils # 9.5 K/mcL (1.6-8.9) H 02/05/17 04:20 PT 12.6 Seconds (9.4-12.1) H 02/06/17 05:36 APTT 168.1 Seconds (26.0-36.0) H* D 02/05/17 04:20 ABG pO2 129 mmHg (85-104) H 02/04/17 06:20 ABG HCO3 27.2 mEQ/L (21-27) H 02/04/17 06:20 ABG Total CO2 28.5 mEq/L (20-26) H 02/04/17 06:20 ABG O2 Saturation 99 % (95-98) H 02/04/17 06:20 Potassium 4.8 mEq/L (3.5-4.5) H 02/06/17 05:36 Carbon Dioxide 33 mEq/L (19-29) H 02/06/17 05:36 BUN 38 mg/dL (7-20) H 02/06/17 05:36 Creatinine 1.13 mg/dL (0.57-1.11) H 02/06/17 05:36 Est GFR ( Amer) 58 (> 60) L 02/06/17 05:36 Est GFR (Non-Af Amer) 48 (> 60) L 02/06/17 05:36 BUN/Creatinine Ratio 34 (6-26) H 02/06/17 05:36 Glucose 108 mg/dL (70-99) H 02/06/17 05:36 Calcium 8.3 mg/dL (8.6-10.8) L 02/06/17 05:36 Alkaline Phosphatase 134 Units/L (38-126) H 02/06/17 05:36 Serum Total Protein 5.2 g/dL (6.0-8.3) L 02/06/17 05:36 Albumin 2.6 g/dL (3.5-5.0) L 02/06/17 05:36 Albumin/Globulin Ratio 1.0 (1.1-2.2) L 02/06/17 05:36 Fluid Appearance Cloudy (Clear) A 02/05/17 15:14 Stool Occult Blood Positive (Negative) A 02/03/17 00:45 - Microbiology Findings Microbiology Findings: Microbiology, Last 48 Hours 02/05/17 15:14 Gram Stain - Final Right Lower Lobe Lung 02/01/17 23:52 Sputum Culture - Final Sputum Staphylococcus aureus - Clinical Findings Intake & Output: Intake & Output 02/05/17 02/06/17 02/06/17 23:59 07:59 15:59 Intake Total 390 / 390 240 / 240 Balance 390 / 390 240 / 240 Weight 58.6 kg Consult Discharge Plan - Plan Referrals: Christoph Hughes DO [Primary Care Provider] -
[2017-02-06] MEDS ORDERED: Vancomycin 1,000 MG in D5% in Water 250 ML IVPB SCH ×2 (17:00→18:00)
--- NOTE | 2017-02-06 17:05 | Internal Med Progress Note ---
Date of Encounter: 02/06/17 Time of Encounter: 17:00 - Assessment and plan (1) Pneumonia Current Visit: Yes Status: Acute Qualifiers: Pneumonia type: due to methicillin-resistant Staphylococcus aureus (MRSA) Laterality: right Lung location: lower lobe of lung Qualified Code(s): J15.212 - Pneumonia due to Methicillin resistant Staphylococcus aureus (2) Diastolic CHF Current Visit: Yes Status: Chronic Qualifiers: Congestive heart failure chronicity: acute on chronic Qualified Code(s): I50.33 - Acute on chronic diastolic (congestive) heart failure (3) CKD (chronic kidney disease) stage 3, GFR 30-59 ml/min Current Visit: Yes Status: Chronic (4) COPD exacerbation Current Visit: Yes Status: Acute (5) Atrial fibrillation with RVR Current Visit: Yes Status: Acute - Subjective Interval history: Mrs. Chris Dewitt s a 71-year-old female admitted founcontrolled atrial fibrillation. Previously she was tried on beta Blockers and amiodarone. Cardiologyconsulted who have restarted her on sotalol Patient is in sinus rhythm. She has prosthetic mitral valve A. fib and she is on Coumadin with target INR 2.5-3.5. However on admission her INR was 5 therefore Coumadin was put on hold. patient was noted to have right sided consolidation and lymphadenopathy and previous BAL showed atypical cells. Since she planned to have bronchoscopy therefore Coumadin is on hold and per cardiology she will be bridgewith IV heparinin the meantime. Pulmonology was consulted. Apparently she was scheduled to get bronchoscopy as outpatient According o cardiologypractitioner she had ablack tarry stool this morning. Her hemoglobin is only modestly dropped from admission from 13-11 and seems reasonably stable. GI is consulted as this would be a high time to do while she will be off Coumadin. She will be on PPI. she has left-sided consolidation with effusioni consistent with pneumonia. Previous BAL showed Stenotrophomonas maltophilia. Infectious disease is on case. 02/04 #1 admitted for uncontrolled A. fib and now very well controlled with sotalol. She has a prosthetic mitral valve and therefore target INR is between 2.5 and 3.5 on Coumadin which is restarted. Bridging lovenox. #2 recurrent pneumonia with Stenotrophomonas maltophilia. On recent CT chest bilateral infiltrates with effusion off which left infiltrate has been present for a while. Currently on Augmentin SPUTUM CULTURE SHOWED MRSA THEREFORE VANCOMYCIN ADDED, PHARMACY TO DOSE.. Renal functions are satisfactory and will be monitored as well as CBC. Patient has failed multiple antibiotic treatment in the past. Infectious disease on the case. Also has COPD for which she gets nebulizer treatments and seems to have responded well as reflected by the ABG drawn yesterday. She will be okay with 1-2 L oxygen only. #3 Concern for malignancy raised from infectious disease especially because she has confluent right hilar lymphadenopathy and also bilateral to basal consolidation which could be pneumonia versus malignancy especially tender on the left side. Dr. Matias did bronch/biopsy and results are pending. #4 positive Hemoccult of stool but hemoglobin is quite stable and actually improving. Dr. Chauhan did EGD which showed prepyloric gastritis. Biopsy pending. #5 her CHF COPD CKD she will be on Coumadin and Lovenox for bridging as she has prosthetic mitral valve and will certainly need bridging. Dr Cohen asked to keep her until biopsy results. - Constitutional Vitals: Temp Pulse Resp BP Pulse Ox 97.5 F L 63 19 131/72 100 02/06/17 15:00 02/06/17 15:00 02/06/17 15:00 02/06/17 15:00 02/06/17 15:00 General appearance: Present: A&O X 3, answers questions appropriately - Head Head exam: Present: atraumatic, normocephalic - Eye Eye exam: Present: PERRL, conjuntiva pink, sclera anicteric Pupils: Present: PERRL - Neck Neck exam general surgery: Present: supple, trachea midline. Absent: lymphadenopathy - Respiratory Respiratory exam: Present: CTAB. Absent: accessory muscle use, rales, rhonchi, wheezes - Cardiovascular Cardiovascular exam: Present: RRR, +S1, +S2. Absent: diastolic murmur, gallop, rubs, systolic murmur - GI/Abdominal GI/Abdominal exam: Present: normal bowel sounds, soft, no peritoneal signs. Absent: distended, tenderness - Extremities Exam Extremities exam: Present: warm, radial pulses palpable and symetrical. Absent : calf tenderness, cyanotic, pedal edema - Neurological Exam Neurological exam: Present: CN II-XII intact, oriented X3, no focal deficits. Absent: pronater drift, facial droop, speech deficit - Skin Skin exam: Present: dry, intact Internal Medicine: Result - Labs CBC & Chem 7: 02/05/17 04:20 02/06/17 05:36 Labs: BMP 02/06/17 05:36 Sodium 139 Potassium 4.8 H Chloride 102 Carbon Dioxide 33 H BUN 38 H Creatinine 1.13 H Glucose 108 H Calcium 8.3 L Liver Function 02/06/17 Range/Units 05:36 Total Bilirubin < 0.3 (0.2-1.2) mg/dL AST 16 (5-34) Units/L ALT 20 (0-55) Units/L Alkaline Phosphatase 134 H (38-126) Units/L Albumin 2.6 L (3.5-5.0) g/dL - ABG Interpretation ABG results: ABG ABG pH 7.42 pH Units (7.32-7.45) 02/04/17 06:20 ABG pCO2 42 mmHg (35-45) 02/04/17 06:20 ABG pO2 129 mmHg (85-104) H 02/04/17 06:20 ABG O2 Saturation 99 % (95-98) H 02/04/17 06:20 PT/INR, D-dimer PT 12.6 Seconds (9.4-12.1) H 02/06/17 05:36 Consult Discharge Plan - Plan Referrals: Christoph Hughes DO [Primary Care Provider] -
[2017-02-06] MEDS: *HR* Enoxaparin 60 MG/0.6 ML SYRINGE SQ SCH (17:52)
[2017-02-06] MEDS ORDERED: *HR* Warfarin 5 MG TABLET PO ONE (18:00)
[2017-02-06] MEDS: Gabapentin 100 MG CAPSULE PO SCH (21:13)
[2017-02-06] MEDS: traMADol 50 MG TABLET PO PRN (22:15)
[2017-02-07] MEDS: Ipratropium/Albuterol Neb 3 ML IH SCH ×6 (03:44→23:40)
[2017-02-07 04:34] LABS: INR 1.3; Prothrombin Time 13.7 Seconds (9.4-12.1)
[2017-02-07 04:45] LABS: Alanine Aminotransferase 21 Units/L (0-55); Albumin 2.7 g/dL (3.5-5.0); Alkaline Phosphatase 152 Units/L (38-126); Aspartate Amino Transferase 21 Units/L (5-34); BUN/Creatinine Ratio 34 (6-26); Bilirubin,Total < 0.3 mg/dL (0.2-1.2); Blood Urea Nitrogen 38 mg/dL (7-20); Calcium 8.2 mg/dL (8.6-10.8); Carbon Dioxide 32 mEq/L (19-29); Chloride 98 mEq/L (98-109); Globulin 2.7 g/dL (2.4-3.5); Glucose 154 mg/dL (70-99); Osmolality,Calculated 296 (280-300); Potassium 4.3 mEq/L (3.5-4.5); Sodium 137 mEq/L (136-145); Total Protein 5.4 g/dL (6.0-8.3); eGFR For African Americans 59 (> 60); eGFR For Non-African Americans 49 (> 60)
[2017-02-07] MEDS: Pantoprazole 40 MG VIAL IVP SCH (05:40)
[2017-02-07] MEDS: MethylPREDNISolone 40 MG/ML VIAL IVP SCH ×3 (05:43→21:57)
[2017-02-07] MEDS: Budesonide/Formoterol 160/4.5 MDI IH SCH ×2 (08:02→19:54)
--- NOTE | 2017-02-07 08:40 | Pulmonology Progress Note ---
Date of Encounter: 02/07/17 Time of Encounter: 08:40 Assessment and Plan (1) Mediastinal adenopathy Current Visit: Yes Status: Acute This was biopsied and final pathology result is pending. Suspicious for malignancies. (2) Chronic respiratory failure Current Visit: Yes Status: Chronic Patient is on long-term oxygen therapy and to keep SPO2 around 90%. Qualifiers: Respiratory failure complication: unspecified whether with hypoxia or hypercapnia Qualified Code(s): J96.10 - Chronic respiratory failure, unspecified whether with hypoxia or hypercapnia (3) Pneumonia Current Visit: Yes Status: Acute Final result on the BAL showed normal upper respiratory tract brenda and I was to recommend to continue current antibiotics. Qualifiers: Pneumonia type: due to methicillin-resistant Staphylococcus aureus (MRSA) Laterality: right Lung location: lower lobe of lung Qualified Code(s): J15.212 - Pneumonia due to Methicillin resistant Staphylococcus aureus Subjective Principal diagnosis: Afib Interval history: Patient continued to improve clinically after bronchoscopy. Objective PUL Vital signs: Last Vital Signs Temp 97.9 F 02/07/17 07:00 Pulse 72 02/07/17 07:00 Resp 16 02/07/17 08:09 BP 129/82 02/07/17 07:00 Pulse Ox 96 02/07/17 08:09 General appearance: no acute distress Eyes: nonicteric ENT: oropharynx moist Neck: supple Effort: normal Auscultation: bilateral: rhonchi Tactile fremitus: bilateral: normal Cardiovascular: irregular rhythm, murmur noted Gastrointestinal: normoactive bowel sounds Extremities: no cyanosis, edema normal mental status, non-focal exam mood appropriate Results - Laboratory Findings CBC and BMP: 02/05/17 04:20 02/07/17 04:16 ABG ABG pH 7.42 pH Units (7.32-7.45) 02/04/17 06:20 ABG pCO2 42 mmHg (35-45) 02/04/17 06:20 ABG pO2 129 mmHg (85-104) H 02/04/17 06:20 ABG O2 Saturation 99 % (95-98) H 02/04/17 06:20 PT/INR, D-dimer PT 13.7 Seconds (9.4-12.1) H 02/07/17 04:16 Abnormal lab findings: Abnormal lab results Hgb 11.2 g/dL (11.5-15.4) L 02/05/17 04:20 MCV 82.2 fL (83.0-100.0) L 02/05/17 04:20 MCH 25.9 pg (28.0-33.3) L 02/05/17 04:20 MCHC 31.5 g/dL (31.6-35.5) L 02/05/17 04:20 RDW 16.0 % (11.5-14.5) H 02/05/17 04:20 Neutrophils # 9.5 K/mcL (1.6-8.9) H 02/05/17 04:20 PT 13.7 Seconds (9.4-12.1) H 02/07/17 04:16 APTT 168.1 Seconds (26.0-36.0) H* D 02/05/17 04:20 ABG pO2 129 mmHg (85-104) H 02/04/17 06:20 ABG HCO3 27.2 mEQ/L (21-27) H 02/04/17 06:20 ABG Total CO2 28.5 mEq/L (20-26) H 02/04/17 06:20 ABG O2 Saturation 99 % (95-98) H 02/04/17 06:20 Carbon Dioxide 32 mEq/L (19-29) H 02/07/17 04:16 BUN 38 mg/dL (7-20) H 02/07/17 04:16 Est GFR ( Amer) 59 (> 60) L 02/07/17 04:16 Est GFR (Non-Af Amer) 49 (> 60) L 02/07/17 04:16 BUN/Creatinine Ratio 34 (6-26) H 02/07/17 04:16 Glucose 154 mg/dL (70-99) H 02/07/17 04:16 Calcium 8.2 mg/dL (8.6-10.8) L 02/07/17 04:16 Alkaline Phosphatase 152 Units/L (38-126) H 02/07/17 04:16 Serum Total Protein 5.4 g/dL (6.0-8.3) L 02/07/17 04:16 Albumin 2.7 g/dL (3.5-5.0) L 02/07/17 04:16 Albumin/Globulin Ratio 1.0 (1.1-2.2) L 02/07/17 04:16 Fluid Appearance Cloudy (Clear) A 02/05/17 15:14 Stool Occult Blood Positive (Negative) A 02/03/17 00:45 - Microbiology Findings Microbiology Findings: Microbiology, Last 48 Hours 02/05/17 15:14 Acid Fast Stain - Final Right Lower Lobe Lung 02/05/17 15:14 Respiratory Culture - Preliminary Right Lower Lobe Lung Normal upper respiratory tract brenda. No apparent pathogens isolated. 02/05/17 15:14 Gram Stain - Final Right Lower Lobe Lung 02/01/17 23:52 Sputum Culture - Final Sputum Staphylococcus aureus - Clinical Findings Intake & Output: Intake & Output 02/06/17 02/07/17 02/07/17 23:59 07:59 15:59 Intake Total 120 / 120 Balance 120 / 120 Consult Discharge Plan - Plan Referrals: Christoph Hughes DO [Primary Care Provider] -
[2017-02-07] MEDS: Loratadine 10 MG TABLET PO SCH (09:21)
[2017-02-07] MEDS: traMADol 50 MG TABLET PO PRN ×2 (09:21→15:46)
[2017-02-07] MEDS: Amoxicillin/Clavulanate 500 MG TABLET PO SCH ×2 (09:21→16:56)
[2017-02-07] MEDS: Furosemide 40 MG TABLET PO SCH ×2 (09:21→16:56)
[2017-02-07] MEDS: Cholecalciferol (D-3) 1,000 UNIT TABLET PO SCH (09:21)
--- NOTE | 2017-02-07 15:54 | Internal Med Progress Note ---
Date of Encounter: 02/07/17 Time of Encounter: 15:49 - Assessment and plan (1) Pneumonia Current Visit: Yes Status: Acute Qualifiers: Pneumonia type: due to methicillin-resistant Staphylococcus aureus (MRSA) Laterality: right Lung location: lower lobe of lung Qualified Code(s): J15.212 - Pneumonia due to Methicillin resistant Staphylococcus aureus (2) Diastolic CHF Current Visit: Yes Status: Chronic Qualifiers: Congestive heart failure chronicity: acute on chronic Qualified Code(s): I50.33 - Acute on chronic diastolic (congestive) heart failure (3) CKD (chronic kidney disease) stage 3, GFR 30-59 ml/min Current Visit: Yes Status: Chronic (4) COPD exacerbation Current Visit: Yes Status: Acute (5) Atrial fibrillation with RVR Current Visit: Yes Status: Acute - Subjective Interval history: Mrs. Chris Dewitt s a 71-year-old female admitted founcontrolled atrial fibrillation. Previously she was tried on beta Blockers and amiodarone. Cardiologyconsulted who have restarted her on sotalol Patient is in sinus rhythm. She has prosthetic mitral valve A. fib and she is on Coumadin with target INR 2.5-3.5. However on admission her INR was 5 therefore Coumadin was put on hold. patient was noted to have right sided consolidation and lymphadenopathy and previous BAL showed atypical cells. Since she planned to have bronchoscopy therefore Coumadin is on hold and per cardiology she will be bridgewith IV heparinin the meantime. Pulmonology was consulted. Apparently she was scheduled to get bronchoscopy as outpatient According o cardiologypractitioner she had ablack tarry stool this morning. Her hemoglobin is only modestly dropped from admission from 13-11 and seems reasonably stable. GI is consulted as this would be a high time to do while she will be off Coumadin. She will be on PPI. she has left-sided consolidation with effusioni consistent with pneumonia. Previous BAL showed Stenotrophomonas maltophilia. Infectious disease is on case. 02/07 #1 admitted for uncontrolled A. fib and now very well controlled with sotalol. She has a prosthetic mitral valve and therefore target INR is between 2.5 and 3.5 on Coumadin which is restarted. Bridging lovenox. #2 recurrent pneumonia with Stenotrophomonas maltophilia historically but NOW sputum cultures have shown MRSA. On recent CT chest bilateral infiltrates with effusion of which left infiltrate has been present for a while. Currently on Augmentin SPUTUM CULTURE SHOWED MRSA THEREFORE VANCOMYCIN ADDED yesterday but nursing did not start it as patient has hx of turning red on Vanc??? , I have switch him to Doxycycline. Renal functions are satisfactory and will be monitored as well as CBC. Patient has failed multiple antibiotic treatment in the past. Infectious disease on the case #3 COPD. Also has COPD for which she gets nebulizer treatments and seems to have responded well as reflected by the ABG drawn previously. She will be okay with 1-2 L oxygen only. #4 Concern for malignancy raised from infectious disease especially because she has confluent right hilar lymphadenopathy and also bilateral to basal consolidation which could be pneumonia versus malignancy especially tender on the left side. Dr. Matias did bronch/biopsy and results are pending. #5 positive Hemoccult of stool but hemoglobin is quite stable and actually improving. Dr. Chauhan did EGD which showed prepyloric gastritis. Biopsy pending. On protonix. #5 her CHF COPD CKD. Patient is a full soft. She has noted increased and pedal edema. Lungs are still clear. I will resume her Lasix now. she will be on Coumadin and Lovenox for bridging as she has prosthetic mitral valve and will certainly need bridging. Dr Cohen asked to keep her until biopsy results. Patient will use gentle biopsy results are available upon request of pulmonology. - Constitutional Vitals: Temp Pulse Resp BP Pulse Ox 97.9 F 72 16 129/82 97 02/07/17 07:00 02/07/17 07:00 02/07/17 11:41 02/07/17 07:00 02/07/17 11:41 General appearance: Present: A&O X 3, answers questions appropriately - Head Head exam: Present: atraumatic, normocephalic - Eye Eye exam: Present: PERRL, conjuntiva pink, sclera anicteric Pupils: Present: PERRL - Neck Neck exam general surgery: Present: supple, trachea midline. Absent: lymphadenopathy - Respiratory Respiratory exam: Present: CTAB. Absent: accessory muscle use, rales, rhonchi, wheezes - Cardiovascular Cardiovascular exam: Present: RRR, +S1, +S2. Absent: diastolic murmur, gallop, rubs, systolic murmur - GI/Abdominal GI/Abdominal exam: Present: normal bowel sounds, soft, no peritoneal signs. Absent: distended, tenderness - Extremities Exam Extremities exam: Present: warm, radial pulses palpable and symetrical. Absent : calf tenderness, cyanotic, pedal edema - Neurological Exam Neurological exam: Present: CN II-XII intact, oriented X3, no focal deficits. Absent: pronater drift, facial droop, speech deficit - Skin Skin exam: Present: dry, intact Internal Medicine: Result - Labs CBC & Chem 7: 02/05/17 04:20 02/07/17 04:16 Labs: BMP 02/07/17 04:16 Sodium 137 Potassium 4.3 Chloride 98 Carbon Dioxide 32 H BUN 38 H Creatinine 1.11 Glucose 154 H Calcium 8.2 L Liver Function 02/07/17 Range/Units 04:16 Total Bilirubin < 0.3 (0.2-1.2) mg/dL AST 21 (5-34) Units/L ALT 21 (0-55) Units/L Alkaline Phosphatase 152 H (38-126) Units/L Albumin 2.7 L (3.5-5.0) g/dL - ABG Interpretation ABG results: ABG ABG pH 7.42 pH Units (7.32-7.45) 02/04/17 06:20 ABG pCO2 42 mmHg (35-45) 02/04/17 06:20 ABG pO2 129 mmHg (85-104) H 02/04/17 06:20 ABG O2 Saturation 99 % (95-98) H 02/04/17 06:20 PT/INR, D-dimer PT 13.7 Seconds (9.4-12.1) H 02/07/17 04:16 Consult Discharge Plan - Plan Referrals: Christoph Hughes DO [Primary Care Provider] -
[2017-02-07] MEDS: Doxycycline 100 MG in 0.9 % Sodium Chloride Mini Bag 100 ML IVPB SCH (16:56)
[2017-02-07] MEDS: *HR* Enoxaparin 60 MG/0.6 ML SYRINGE SQ SCH (16:57)
[2017-02-07] MEDS ORDERED: *HR* Warfarin 7.5 MG TABLET PO ONE (18:00)
[2017-02-07] MEDS: Gabapentin 100 MG CAPSULE PO SCH (20:14)
[2017-02-08] MEDS: traMADol 50 MG TABLET PO PRN ×2 (01:11→09:54)
[2017-02-08] MEDS: Ipratropium/Albuterol Neb 3 ML IH SCH ×5 (03:27→19:56)
[2017-02-08 04:21] LABS: INR 1.4; Prothrombin Time 14.8 Seconds (9.4-12.1)
[2017-02-08 04:29] LABS: Albumin 2.9 g/dL (3.5-5.0); Albumin/Globulin Ratio 0.9 (1.1-2.2); Bilirubin,Total 0.3 mg/dL (0.2-1.2); Calcium 8.8 mg/dL (8.6-10.8); Globulin 3.2 g/dL (2.4-3.5); Potassium 4.2 mEq/L (3.5-4.5); Total Protein 6.1 g/dL (6.0-8.3)
[2017-02-08] MEDS: MethylPREDNISolone 40 MG/ML VIAL IVP SCH (05:35)
[2017-02-08] MEDS: Doxycycline 100 MG in 0.9 % Sodium Chloride Mini Bag 100 ML IVPB SCH (05:37)
[2017-02-08] MEDS: Budesonide/Formoterol 160/4.5 MDI IH SCH ×2 (07:45→19:56)
--- NOTE | 2017-02-08 07:56 | Infectious Disease Progress No ---
Date of Encounter: 02/08/17 Time of Encounter: 07:54 - Assessment and Plan (1) Hospital-acquired pneumonia Current Visit: No Status: Acute Differential diagnosis for infiltrates on the left base includes active pneumonia, malignancy, pleural effusion or fibrosis. 02/02/17 CT chest without contrast reveals interval development of small right pleural effusion with increased dense consolidation in the right lower lobe, most compatible with pneumonia. Set opacification of basilar segmental bronchi suggesting mucous secretions and/or aspiration. Mediastinal and right hilar adenopathy is identified; the right hilar adenopathy is confluent with very dense perihilar masslike consolidation. Underlying neoplasm should be considered. Blood cultures collected 02/01/17 reveal no growth to date Sputum cultures collected 02/01/17 revealed MRSA sensitive to Bactrim, Zyvox, doxycycline, vancomycin, (patient is allergic to Rocephin, Cipro, Levaquin, and vancomycin) Previously on Bactrim and Zosyn since 02/02/17 Currently on Augmentin 500 mg by mouth BID since 02/05/17 Started on Doxycycline 100 mg IV twice a day since 02/07/17 Recommendations: MSSA on sputum culture, continue Augmentin and doxycycline Bronchoscopy biopsy results pending. Pulmonary, Dr. Siddiqi following Final result on the BAL showed normal upper respiratory tract brenda. Will further adjust antibiotic regimen as needed based on bronchoscopy results. Monitor renal function/ labs for drug toxicity, will renally adjust antibiotic dose as needed. Overall prognosis is very poor based on her pulmonary function. We'll continue to follow closely. (2) Failure of outpatient treatment Current Visit: No Status: Acute Patient has been admitted multiple times since October 2016 for pneumonia and was previously treated with Doxycycline, Bactrim, and Zosyn. Patient reports she has very limited IV access and required new port placement by IR on 01/04/17. Bronchoscopy completed on 01/10/17 confirmed growth of persistent Stenotrophomonas maltophilia found on sputum culture as far back as 10/10/2016. She was most recently discharged on 01/12/17 with Bactrim DS to finish total 14 -day course of treatment for pneumonia. (3) Acute exacerbation of chronic obstructive pulmonary disease (COPD) Current Visit: No Status: Acute Continue management per primary team (4) Mucus plugging of bronchi Current Visit: No Status: Chronic Pulmonology following. (5) Atrial flutter with rapid ventricular response Current Visit: Yes Status: Chronic Heart rate currently controlled on sotalol. Cardiology following - Subjective Interval history: Patient seen and examined. Patient is sitting up at bedside eating breakfast. Patient inquiring if biopsy results her back yet. She is requiring 2.5 L supplemental oxygen today, her baseline 2L O2 requirement. She denies fever, chills, worsening shortness of breath, CP, abd pain, N/V/D/C, dysuria, or leg edema. is a bedside during the time of exam. Infect Dis PN-Objective Data - Labs CBC & Chem 7: 02/05/17 04:20 02/08/17 04:00 Labs: Laboratory Results - last 24 hr 02/08/17 02/08/17 04:00 04:00 PT 14.8 H INR 1.4 Sodium 141 Potassium 4.2 Chloride 101 Carbon Dioxide 32 H BUN 48 H D Creatinine 1.36 H Est GFR ( Amer) 47 L Est GFR (Non-Af Amer) 39 L BUN/Creatinine Ratio 35 H Glucose 176 H Calculated Osmolality 309 H Calcium 8.8 Total Bilirubin 0.3 AST 22 ALT 24 Alkaline Phosphatase 176 H Serum Total Protein 6.1 Albumin 2.9 L Globulin 3.2 Albumin/Globulin Ratio 0.9 L Cultures: Cultures 02/05/17 15:14 Respiratory Culture - Final Right Lower Lobe Lung Normal upper respiratory tract brenda. No apparent pathogens isolated. 02/05/17 15:14 Acid Fast Stain - Final Right Lower Lobe Lung 02/05/17 15:14 Gram Stain - Final Right Lower Lobe Lung 02/01/17 23:52 Sputum Culture - Final Sputum Staphylococcus aureus Serology 02/05/17 02/03/17 Range/Units 15:14 00:45 Fluid Source rll bal Fluid Volume 24 mL Fluid Appearance Cloudy A (Clear) Fluid RBC TNP Fld Tot Nucleated Cell TNP Fluid Seg Neutrophil % 23.0 % Fld Band Neutrophil % Test Not Performed Fluid Lymphocytes % 13.0 % Fluid Monocytes % 1.0 % Fluid Eosinophils % Test Not Performed Fluid Basophils % Test Not Performed Fluid Other Cells % 63.0 % Stool Occult Blood Positive A (Negative) Exam - Constitutional Vitals: Temp Pulse Resp BP Pulse Ox 97.9 F 86 16 147/92 95 02/08/17 06:55 02/08/17 06:55 02/08/17 07:48 02/08/17 06:55 02/08/17 07:48 General appearance: cooperative, no acute distress, no febrile - Head Head exam: Present: atraumatic, normal inspection, normocephalic - Eye Eye exam: Present: PERRL - ENT ENT exam: Present: mucous membranes moist, normal oropharynx - Neck Neck exam: Present: normal inspection. Absent: lymphadenopathy, tenderness, thyromegaly - Respiratory Respiratory exam: Present: decreased breath sounds, prolonged expiratory phase Additional comments: Good air movement bilaterally - Cardiovascular Cardiovascular exam: Present: RRR, +S1, +S2 - GI/Abdominal GI/Abdominal exam: Present: normal bowel sounds, soft. Absent: distended, guarding - Extremities Exam Extremities exam: Absent: pedal edema Additional comments: Clubbing - Neurological Exam Neurological exam: Present: alert. Absent: altered, motor sensory deficit, speech deficit - Skin Skin exam: Present: dry, warm. Absent: rash - VTE Documentation of Mechanical Device: Intermittent pneumatic compression device Consult Discharge Plan - Plan Referrals: Christoph Hughes DO [Primary Care Provider] - 02/11/17 3:00 pm - Attending Attestation I examined this patient and my medical decision-making was reviewed with the Resident Physician. I agree with the documented findings, disposition and treatment plan as described except to the extent set forth below.
--- NOTE | 2017-02-08 09:16 | Internal Med Progress Note ---
Date of Encounter: 02/08/17 Time of Encounter: 09:08 - Assessment and plan (1) Pneumonia Current Visit: Yes Status: Acute Qualifiers: Pneumonia type: due to methicillin-resistant Staphylococcus aureus (MRSA) Laterality: right Lung location: lower lobe of lung Qualified Code(s): J15.212 - Pneumonia due to Methicillin resistant Staphylococcus aureus (2) Diastolic CHF Current Visit: Yes Status: Chronic Qualifiers: Congestive heart failure chronicity: acute on chronic Qualified Code(s): I50.33 - Acute on chronic diastolic (congestive) heart failure (3) CKD (chronic kidney disease) stage 3, GFR 30-59 ml/min Current Visit: Yes Status: Chronic (4) COPD exacerbation Current Visit: Yes Status: Acute (5) Atrial fibrillation with RVR Current Visit: Yes Status: Acute - Subjective Interval history: Mrs. Chris Dewitt s a 71-year-old female admitted founcontrolled atrial fibrillation. Previously she was tried on beta Blockers and amiodarone. Cardiologyconsulted who have restarted her on sotalol Patient is in sinus rhythm. She has prosthetic mitral valve A. fib and she is on Coumadin with target INR 2.5-3.5. However on admission her INR was 5 therefore Coumadin was put on hold. patient was noted to have right sided consolidation and lymphadenopathy and previous BAL showed atypical cells. Since she planned to have bronchoscopy therefore Coumadin is on hold and per cardiology she will be bridgewith IV heparinin the meantime. Pulmonology was consulted. Apparently she was scheduled to get bronchoscopy as outpatient According o cardiologypractitioner she had ablack tarry stool this morning. Her hemoglobin is only modestly dropped from admission from 13-11 and seems reasonably stable. GI is consulted as this would be a high time to do while she will be off Coumadin. She will be on PPI. she has left-sided consolidation with effusioni consistent with pneumonia. Previous BAL showed Stenotrophomonas maltophilia. Infectious disease is on case. 02/08 #1 admitted for uncontrolled A. fib and now very well controlled with sotalol. She has a prosthetic mitral valve and therefore target INR is between 2.5 and 3.5 on Coumadin which is restarted. Bridging lovenox. Pharmacy is managing Coumadin dosing #2 recurrent pneumonia with Stenotrophomonas maltophilia historically but NOW sputum cultures have shown MRSA. On recent CT chest bilateral infiltrates with effusion of which left infiltrate has been present for a while. Currently on Augmentin SPUTUM CULTURE SHOWED MRSA THEREFORE VANCOMYCIN ADDED yesterday but nursing did not start it as patient has hx of turning red on Vanc??? , I have switch him to Doxycycline. Renal functions are satisfactory and will be monitored as well as CBC. Patient has failed multiple antibiotic treatment in the past. Infectious disease on the case and will decide about MRSA coverage #3 COPD. Also has COPD for which she gets nebulizer treatments and seems to have responded well as reflected by the ABG drawn previously. She will be okay with 1-2 L oxygen only. #4 Concern for malignancy raised from infectious disease especially because she has confluent right hilar lymphadenopathy and also bilateral to basal consolidation which could be pneumonia versus malignancy especially tender on the left side. Dr. Matias did bronch/biopsy and results are pending. #5 positive Hemoccult of stool but hemoglobin is quite stable and actually improving. Dr. Chauhan did EGD which showed prepyloric gastritis. Biopsy pending. On protonix. #5 her CHF COPD CKD. Patient is a full soft. She has noted increased and pedal edema. Lungs are still clear. I will resume her Lasix now. she will be on Coumadin and Lovenox for bridging as she has prosthetic mitral valve and will certainly need bridging. Dr Cohen asked to keep her until biopsy results. Patient will use gentle biopsy results are available upon request of pulmonology. Today I heard a few rhonchi bilaterally. Did give an extra dose of Lasix yesterday and this morning she is -1600 but as a consequence creatinine has also gone up. We have restarted her Lasix 40 by mouth twice a day which she can use at home and will continue to monitor her creatinine. I will switch her from IV Solu-Medrol to prednisone 40 twice a day and that does need to be tapered down very slowly. - Constitutional Vitals: Temp Pulse Resp BP Pulse Ox 97.9 F 86 16 147/92 95 02/08/17 06:55 02/08/17 06:55 02/08/17 07:48 02/08/17 06:55 02/08/17 07:48 General appearance: Present: A&O X 3, answers questions appropriately - Head Head exam: Present: atraumatic, normocephalic - Eye Eye exam: Present: PERRL, conjuntiva pink, sclera anicteric Pupils: Present: PERRL - Neck Neck exam general surgery: Present: supple, trachea midline. Absent: lymphadenopathy - Respiratory Respiratory exam: Present: CTAB, rhonchi. Absent: accessory muscle use, rales, wheezes - Cardiovascular Cardiovascular exam: Present: RRR, +S1, +S2. Absent: diastolic murmur, gallop, rubs, systolic murmur - GI/Abdominal GI/Abdominal exam: Present: normal bowel sounds, soft, no peritoneal signs. Absent: distended, tenderness - Extremities Exam Extremities exam: Present: warm, radial pulses palpable and symetrical. Absent : calf tenderness, cyanotic, pedal edema - Neurological Exam Neurological exam: Present: CN II-XII intact, oriented X3, no focal deficits. Absent: pronater drift, facial droop, speech deficit - Skin Skin exam: Present: dry, intact Internal Medicine: Result - Labs CBC & Chem 7: 02/05/17 04:20 02/08/17 04:00 Labs: BMP 02/08/17 04:00 Sodium 141 Potassium 4.2 Chloride 101 Carbon Dioxide 32 H BUN 48 H D Creatinine 1.36 H Glucose 176 H Calcium 8.8 Liver Function 02/08/17 Range/Units 04:00 Total Bilirubin 0.3 (0.2-1.2) mg/dL AST 22 (5-34) Units/L ALT 24 (0-55) Units/L Alkaline Phosphatase 176 H (38-126) Units/L Albumin 2.9 L (3.5-5.0) g/dL - ABG Interpretation ABG results: ABG ABG pH 7.42 pH Units (7.32-7.45) 02/04/17 06:20 ABG pCO2 42 mmHg (35-45) 02/04/17 06:20 ABG pO2 129 mmHg (85-104) H 02/04/17 06:20 ABG O2 Saturation 99 % (95-98) H 02/04/17 06:20 PT/INR, D-dimer PT 14.8 Seconds (9.4-12.1) H 02/08/17 04:00 - VTE Documentation of Mechanical Device: Intermittent pneumatic compression device Consult Discharge Plan - Plan Referrals: Christoph Hughes DO [Primary Care Provider] -
[2017-02-08] MEDS: Cholecalciferol (D-3) 1,000 UNIT TABLET PO SCH (09:53)
[2017-02-08] MEDS: Furosemide 40 MG TABLET PO SCH ×2 (09:53→17:50)
[2017-02-08] MEDS: Amoxicillin/Clavulanate 500 MG TABLET PO SCH ×2 (09:53→17:50)
[2017-02-08] MEDS: Loratadine 10 MG TABLET PO SCH (09:54)
[2017-02-08] MEDS: *HR* Enoxaparin 60 MG/0.6 ML SYRINGE SQ SCH (17:49)
[2017-02-08] MEDS: predniSONE 20 MG TABLET PO SCH (17:50)
[2017-02-08] MEDS ORDERED: *HR* Warfarin 7.5 MG TABLET PO ONE (18:00)
[2017-02-08] MEDS: Gabapentin 100 MG CAPSULE PO SCH (22:10)
[2017-02-09] MEDS: Ipratropium/Albuterol Neb 3 ML IH SCH ×7 (00:15→23:34)
[2017-02-09 04:14] LABS: Prothrombin Time 22.2 Seconds (9.4-12.1)
[2017-02-09 04:18] LABS: Alanine Aminotransferase 23 Units/L (0-55); Albumin 2.8 g/dL (3.5-5.0); Alkaline Phosphatase 170 Units/L (38-126); Aspartate Amino Transferase 21 Units/L (5-34); BUN/Creatinine Ratio 46 (6-26); Bilirubin,Total 0.3 mg/dL (0.2-1.2); Blood Urea Nitrogen 47 mg/dL (7-20); Calcium 8.3 mg/dL (8.6-10.8); Carbon Dioxide 34 mEq/L (19-29); Chloride 102 mEq/L (98-109); Globulin 2.8 g/dL (2.4-3.5); Glucose 156 mg/dL (70-99); Osmolality,Calculated 311 (280-300); Sodium 143 mEq/L (136-145); Total Protein 5.6 g/dL (6.0-8.3); eGFR For African Americans > 60 (> 60); eGFR For Non-African Americans 54 (> 60)
[2017-02-09 04:19] LABS: Potassium 4.1 mEq/L (3.5-4.5)
[2017-02-09] MEDS: Budesonide/Formoterol 160/4.5 MDI IH SCH ×2 (07:56→20:09)
--- NOTE | 2017-02-09 08:45 | Infectious Disease Progress No ---
Date of Encounter: 02/09/17 Time of Encounter: 08:44 - Assessment and Plan (1) Adenocarcinoma of lung Current Visit: Yes Status: Acute Bronchoscopy biopsy results 02/05/17 Subcarinal, fine-needle aspiration: Positive for metastatic carcinoma. Immunohistochemical stains performed are consistent with adenocarcinoma of lung origin. Qualifiers: Laterality: unspecified laterality Qualified Code(s): C34.90 - Malignant neoplasm of unspecified part of unspecified bronchus or lung (2) Hospital-acquired pneumonia Current Visit: No Status: Acute 02/02/17 CT chest without contrast reveals interval development of small right pleural effusion with increased dense consolidation in the right lower lobe, most compatible with pneumonia. Set opacification of basilar segmental bronchi suggesting mucous secretions and/or aspiration. Mediastinal and right hilar adenopathy is identified; the right hilar adenopathy is confluent with very dense perihilar masslike consolidation. Underlying neoplasm should be considered. Blood cultures collected 02/01/17 reveal no growth to date Sputum cultures collected 02/01/17 revealed MRSA sensitive to Bactrim, Zyvox, doxycycline, vancomycin, (patient is allergic to Rocephin, Cipro, Levaquin, and vancomycin) Previously on Bactrim and Zosyn since 02/02/17 Currently on Augmentin 500 mg by mouth BID since 02/05/17 Recommendations: MSSA on sputum culture, continue Augmentin for duration of inpatient course. Bronchoscopy biopsy results 02/05/17 Subcarinal, fine-needle aspiration: Positive for metastatic carcinoma. Immunohistochemical stains performed are consistent with adenocarcinoma of lung origin. Pulmonary, Dr. Siddiqi following Final result on the BAL showed normal upper respiratory tract brenda. Monitor renal function/ labs for drug toxicity, will renally adjust antibiotic dose as needed. Overall prognosis is very poor based on her pulmonary function. We'll continue to follow closely. (3) Failure of outpatient treatment Current Visit: No Status: Acute Patient has been admitted multiple times since October 2016 for pneumonia and was previously treated with Doxycycline, Bactrim, and Zosyn. Patient reports she has very limited IV access and required new port placement by IR on 01/04/17. Bronchoscopy completed on 01/10/17 confirmed growth of persistent Stenotrophomonas maltophilia found on sputum culture as far back as 10/10/2016. She was most recently discharged on 01/12/17 with Bactrim DS to finish total 14 -day course of treatment for pneumonia. (4) Acute exacerbation of chronic obstructive pulmonary disease (COPD) Current Visit: No Status: Acute Continue management per primary team (5) Mucus plugging of bronchi Current Visit: No Status: Chronic Pulmonology following. (6) Atrial flutter with rapid ventricular response Current Visit: Yes Status: Chronic Heart rate currently controlled on sotalol. Cardiology following - Subjective Interval history: Patient seen and examined. Patient is sitting up at bedside. Patient still waiting for biopsy results this AM. She is requiring 2 L supplemental oxygen today, her baseline 2L O2 requirement. She denies fever, chills, worsening shortness of breath, CP, abd pain, N/V/D/C, dysuria, or leg edema. Infect Dis PN-Objective Data - Labs CBC & Chem 7: 02/05/17 04:20 02/10/17 05:50 Labs: Laboratory Results - last 24 hr 02/09/17 02/09/17 03:50 03:50 PT 22.2 H INR 2.0 Sodium 143 Potassium 4.1 Chloride 102 Carbon Dioxide 34 H BUN 47 H Creatinine 1.02 Est GFR ( Amer) > 60 Est GFR (Non-Af Amer) 54 L BUN/Creatinine Ratio 46 H Glucose 156 H Calculated Osmolality 311 H Calcium 8.3 L Total Bilirubin 0.3 AST 21 ALT 23 Alkaline Phosphatase 170 H Serum Total Protein 5.6 L Albumin 2.8 L Globulin 2.8 Albumin/Globulin Ratio 1.0 L Pathology report: 02/05/17 Subcarinal, fine-needle aspiration: Positive for metastatic carcinoma. Immunohistochemical stains performed are consistent with adenocarcinoma of lung origin. Cultures: Cultures 02/05/17 15:14 Respiratory Culture - Final Right Lower Lobe Lung Normal upper respiratory tract brenda. No apparent pathogens isolated. 02/05/17 15:14 Acid Fast Stain - Final Right Lower Lobe Lung 02/05/17 15:14 Gram Stain - Final Right Lower Lobe Lung 02/01/17 23:52 Sputum Culture - Final Sputum Staphylococcus aureus Serology 02/05/17 02/03/17 Range/Units 15:14 00:45 Fluid Source rll bal Fluid Volume 24 mL Fluid Appearance Cloudy A (Clear) Fluid RBC TNP Fld Tot Nucleated Cell TNP Fluid Seg Neutrophil % 23.0 % Fld Band Neutrophil % Test Not Performed Fluid Lymphocytes % 13.0 % Fluid Monocytes % 1.0 % Fluid Eosinophils % Test Not Performed Fluid Basophils % Test Not Performed Fluid Other Cells % 63.0 % Stool Occult Blood Positive A (Negative) Exam - Constitutional Vitals: Temp Pulse Resp BP Pulse Ox 97.6 F 75 16 100/80 94 02/09/17 07:14 02/09/17 07:14 02/09/17 07:58 02/09/17 07:14 02/09/17 07:58 General appearance: cooperative, no acute distress, no febrile - Head Head exam: Present: atraumatic, normal inspection, normocephalic - Eye Eye exam: Present: PERRL. Absent: conjuntiva pink - ENT ENT exam: Present: mucous membranes moist, normal oropharynx - Neck Neck exam: Present: normal inspection. Absent: lymphadenopathy, tenderness, thyromegaly - Respiratory Respiratory exam: Absent: accessory muscle use Additional comments: Good air movement bilaterally. Back to baseline O2 requirement. - Cardiovascular Cardiovascular exam: Present: RRR, +S1, +S2 - GI/Abdominal GI/Abdominal exam: Present: normal bowel sounds, soft. Absent: distended, guarding, rebound - Extremities Exam Extremities exam: Absent: pedal edema Additional comments: clubbing - Neurological Exam Neurological exam: Present: alert, oriented X3. Absent: altered, motor sensory deficit - Psychiatric Psychiatric exam: Present: anxious, normal affect - Skin Skin exam: Present: dry, warm. Absent: rash - VTE Documentation of Mechanical Device: Intermittent pneumatic compression device Consult Discharge Plan - Plan Referrals: Christoph Hughes DO [Primary Care Provider] - 02/11/17 3:00 pm - Attending Attestation I examined this patient and my medical decision-making was reviewed with the Resident Physician. I agree with the documented findings, disposition and treatment plan as described except to the extent set forth below.
[2017-02-09] MEDS: Amoxicillin/Clavulanate 500 MG TABLET PO SCH ×2 (08:53→17:20)
[2017-02-09] MEDS: predniSONE 20 MG TABLET PO SCH ×2 (08:53→17:21)
[2017-02-09] MEDS: Cholecalciferol (D-3) 1,000 UNIT TABLET PO SCH (08:53)
[2017-02-09] MEDS: Furosemide 40 MG TABLET PO SCH ×2 (08:53→17:20)
[2017-02-09] MEDS: Loratadine 10 MG TABLET PO SCH (08:54)
[2017-02-09] MEDS: *HR* Enoxaparin 60 MG/0.6 ML SYRINGE SQ SCH (17:21)
[2017-02-09] MEDS ORDERED: *HR* Warfarin 5 MG TABLET PO ONE (18:00)
--- NOTE | 2017-02-09 18:05 | Internal Med Progress Note ---
Date of Encounter: 02/09/17 Time of Encounter: 12:00 - Assessment and plan (1) Atrial fibrillation Current Visit: Yes Status: Chronic Assessment and plan: Patient presented with atrial fibrillation with rapid ventricular response, has been evaluated by cardiology and started on sotalol. Currently heart rate is well controlled. Continue anticoagulation with bridging Lovenox and Coumadin. Qualifiers: Atrial fibrillation type: paroxysmal Qualified Code(s): I48.0 - Paroxysmal atrial fibrillation (2) Acute and chronic respiratory failure Current Visit: Yes Status: Chronic Assessment and plan: Due to underlying COPD and CHF. Noted to be on home oxygen at 4 L/m via nasal cannula. Continue when necessary supplemental oxygen. Qualifiers: Respiratory failure complication: hypoxia Qualified Code(s): J96.21 - Acute and chronic respiratory failure with hypoxia (3) GI bleed Current Visit: Yes Status: Resolved Assessment and plan: Patient was noted to have suspicion for GI bleed during this admission, GI evaluation was completed and patient underwent EGD which showed no evidence of active bleed. Anti-coagulation has been subsequently restarted. Qualifiers: GI bleed type/associated pathology: melena Qualified Code(s): K92.1 - Melena (4) Pneumonia Current Visit: Yes Status: Acute Assessment and plan: Patient was noted to have multiple admissions with recurrent pneumonias and imaging showing infiltrates/mass like opacity suggestive of infection versus underlying malignancy. Pulmonology was consulted and patient underwent bronchoscopy with EBUS, pathology reports pending. Infectious diseases on board , currently recommend oral Augmentin therapy. Continue supportive care and supplemental oxygen. Qualifiers: Pneumonia type: due to methicillin-sensitive Staphylococcus aureus (MSSA) Laterality: right Lung location: lower lobe of lung Qualified Code(s): J15.211 - Pneumonia due to Methicillin susceptible Staphylococcus aureus (5) Hypertension Current Visit: Yes Status: Chronic Qualifiers: Hypertension type: essential hypertension Qualified Code(s): I10 - Essential (primary) hypertension (6) H/O mitral valve replacement with mechanical valve Current Visit: Yes Status: Chronic Assessment and plan: Continue anticoagulation with Lovenox bridging and Coumadin for goal INR 2.5- 3.5. (7) Anxiety Current Visit: Yes Status: Chronic (8) CKD (chronic kidney disease) stage 3, GFR 30-59 ml/min Current Visit: Yes Status: Chronic (9) KYLIE (obstructive sleep apnea) Current Visit: Yes Status: Chronic (10) CAD (coronary artery disease) Current Visit: Yes Status: Chronic Qualifiers: Coronary Disease-Associated Artery/Lesion type: [place] artery [place] vs. transplanted heart: [place] heart Associated angina: without angina Qualified Code(s): I25.10 - Atherosclerotic heart disease of [place] coronary artery without angina pectoris - Subjective Interval history: Reports feeling well; no chest pain, palpitations, has intermittent cough and dyspnea; waiting Pathology results from bronchoscopy; - Constitutional Vitals: Temp Pulse Resp BP Pulse Ox 98.1 F 82 16 119/78 95 02/09/17 16:14 02/09/17 16:14 02/09/17 16:14 02/09/17 16:14 02/09/17 16:14 General appearance: Present: A&O X 3, answers questions appropriately - Respiratory Respiratory exam: Present: CTAB. Absent: accessory muscle use, rales, rhonchi, wheezes - Cardiovascular Cardiovascular exam: Present: irregular rhythm, +S1, +S2. Absent: diastolic murmur, gallop, rubs, systolic murmur - GI/Abdominal GI/Abdominal exam: Present: normal bowel sounds, soft, no peritoneal signs. Absent: distended, tenderness - Neurological Exam Neurological exam: Present: CN II-XII intact, oriented X3, no focal deficits. Absent: pronater drift, facial droop, speech deficit Internal Medicine: Result - Labs CBC & Chem 7: 02/05/17 04:20 02/10/17 05:50 Labs: BMP 02/09/17 03:50 Sodium 143 Potassium 4.1 Chloride 102 Carbon Dioxide 34 H BUN 47 H Creatinine 1.02 Glucose 156 H Calcium 8.3 L Liver Function 02/09/17 Range/Units 03:50 Total Bilirubin 0.3 (0.2-1.2) mg/dL AST 21 (5-34) Units/L ALT 23 (0-55) Units/L Alkaline Phosphatase 170 H (38-126) Units/L Albumin 2.8 L (3.5-5.0) g/dL - ABG Interpretation ABG results: ABG ABG pH 7.42 pH Units (7.32-7.45) 02/04/17 06:20 ABG pCO2 42 mmHg (35-45) 02/04/17 06:20 ABG pO2 129 mmHg (85-104) H 02/04/17 06:20 ABG O2 Saturation 99 % (95-98) H 02/04/17 06:20 PT/INR, D-dimer PT 22.2 Seconds (9.4-12.1) H 02/09/17 03:50 - VTE Documentation of Mechanical Device: Intermittent pneumatic compression device Consult Discharge Plan - Plan Referrals: Christoph Hughes DO [Primary Care Provider] - 02/11/17 3:00 pm
[2017-02-09] MEDS: Gabapentin 100 MG CAPSULE PO SCH (20:36)
[2017-02-09] MEDS: traMADol 50 MG TABLET PO PRN (22:55)
[2017-02-10] MEDS: Ipratropium/Albuterol Neb 3 ML IH SCH ×6 (03:57→23:17)
[2017-02-10 06:09] LABS: INR 2.4; Prothrombin Time 26.7 Seconds (9.4-12.1)
[2017-02-10 06:18] LABS: Alanine Aminotransferase 24 Units/L (0-55); Albumin 2.8 g/dL (3.5-5.0); Albumin/Globulin Ratio 0.9 (1.1-2.2); Alkaline Phosphatase 163 Units/L (38-126); Aspartate Amino Transferase 25 Units/L (5-34); BUN/Creatinine Ratio 51 (6-26); Bilirubin,Total 0.3 mg/dL (0.2-1.2); Blood Urea Nitrogen 46 mg/dL (7-20); Calcium 8.6 mg/dL (8.6-10.8); Carbon Dioxide 33 mEq/L (19-29); Chloride 101 mEq/L (98-109); Glucose 125 mg/dL (70-99); Osmolality,Calculated 307 (280-300); Potassium 4.3 mEq/L (3.5-4.5); Sodium 142 mEq/L (136-145); Total Protein 5.8 g/dL (6.0-8.3); eGFR For African Americans > 60 (> 60); eGFR For Non-African Americans > 60 (> 60)
--- NOTE | 2017-02-10 06:49 | Pulmonology Progress Note ---
Date of Encounter: 02/10/17 Time of Encounter: 06:49 Assessment and Plan (1) Adenocarcinoma of lung Current Visit: Yes Status: Acute Impression: 1. Acute on Chronic Hypoxic Hypercarbic Respiratory failure 2. AdenoCA of the Lung 3. MSSA PNA 4. COPD with acute flare Recs: -Wean Fio2 to keep O2 sat around 89-92%, Chest physiotherapy. IS, Acapella OOBTC ambulation -Oncology Consult, will need likely outpatient staging I discussed with the patient this new diagnosis and answered all question -ID follwoing cont ABx for a least 7 days -Cont Scheduled MDIs and Bronchodilators as needed. I do not feel she has clear need for enteral steroids at this time. Qualifiers: Laterality: unspecified laterality Qualified Code(s): C34.90 - Malignant neoplasm of unspecified part of unspecified bronchus or lung (2) COPD exacerbation Current Visit: Yes Status: Acute (3) Pneumonia Current Visit: Yes Status: Acute Qualifiers: Pneumonia type: due to methicillin-resistant Staphylococcus aureus (MRSA) Laterality: right Lung location: lower lobe of lung Qualified Code(s): J15.212 - Pneumonia due to Methicillin resistant Staphylococcus aureus (4) Chronic respiratory failure Current Visit: Yes Status: Chronic Qualifiers: Respiratory failure complication: unspecified whether with hypoxia or hypercapnia Qualified Code(s): J96.10 - Chronic respiratory failure, unspecified whether with hypoxia or hypercapnia Subjective Principal diagnosis: Afib Interval history: Feels pretty good today. She was up eating breakfast. Feels like she has improved enough to go home. Objective PUL Vital signs: Last Vital Signs Temp 97.9 F 02/10/17 04:47 Pulse 74 02/10/17 04:47 Resp 16 02/10/17 04:47 BP 119/69 02/10/17 04:47 Pulse Ox 94 02/10/17 04:47 General appearance: no acute distress Auscultation: right: diminished breath sounds Cardiovascular: regular rate and rhythm Extremities: no edema normal mental status, non-focal exam Results - Laboratory Findings CBC and BMP: 02/05/17 04:20 02/10/17 05:50 ABG ABG pH 7.42 pH Units (7.32-7.45) 02/04/17 06:20 ABG pCO2 42 mmHg (35-45) 02/04/17 06:20 ABG pO2 129 mmHg (85-104) H 02/04/17 06:20 ABG O2 Saturation 99 % (95-98) H 02/04/17 06:20 PT/INR, D-dimer PT 26.7 Seconds (9.4-12.1) H 02/10/17 05:50 Abnormal lab findings: Abnormal lab results Hgb 11.2 g/dL (11.5-15.4) L 02/05/17 04:20 MCV 82.2 fL (83.0-100.0) L 02/05/17 04:20 MCH 25.9 pg (28.0-33.3) L 02/05/17 04:20 MCHC 31.5 g/dL (31.6-35.5) L 02/05/17 04:20 RDW 16.0 % (11.5-14.5) H 02/05/17 04:20 Neutrophils # 9.5 K/mcL (1.6-8.9) H 02/05/17 04:20 PT 26.7 Seconds (9.4-12.1) H 02/10/17 05:50 APTT 168.1 Seconds (26.0-36.0) H* D 02/05/17 04:20 ABG pO2 129 mmHg (85-104) H 02/04/17 06:20 ABG HCO3 27.2 mEQ/L (21-27) H 02/04/17 06:20 ABG Total CO2 28.5 mEq/L (20-26) H 02/04/17 06:20 ABG O2 Saturation 99 % (95-98) H 02/04/17 06:20 Carbon Dioxide 33 mEq/L (19-29) H 02/10/17 05:50 BUN 46 mg/dL (7-20) H 02/10/17 05:50 BUN/Creatinine Ratio 51 (6-26) H 02/10/17 05:50 Glucose 125 mg/dL (70-99) H 02/10/17 05:50 Calculated Osmolality 307 (280-300) H 02/10/17 05:50 Alkaline Phosphatase 163 Units/L (38-126) H 02/10/17 05:50 Serum Total Protein 5.8 g/dL (6.0-8.3) L 02/10/17 05:50 Albumin 2.8 g/dL (3.5-5.0) L 02/10/17 05:50 Albumin/Globulin Ratio 0.9 (1.1-2.2) L 02/10/17 05:50 Fluid Appearance Cloudy (Clear) A 02/05/17 15:14 Stool Occult Blood Positive (Negative) A 02/03/17 00:45 - Clinical Findings Intake & Output: Intake & Output 02/09/17 02/09/17 02/10/17 15:59 23:59 07:59 Intake Total 360 / 360 240 / 240 Balance 360 / 360 240 / 240 - VTE Documentation of Mechanical Device: Intermittent pneumatic compression device Consult Discharge Plan - Plan Referrals: Christoph Hughes DO [Primary Care Provider] - 02/11/17 3:00 pm
[2017-02-10] MEDS: Budesonide/Formoterol 160/4.5 MDI IH SCH ×2 (07:29→20:34)
--- NOTE | 2017-02-10 08:16 | Infectious Disease Progress No ---
Date of Encounter: 02/10/17 Time of Encounter: 08:15 - Assessment and Plan (1) Adenocarcinoma of lung Current Visit: Yes Status: Acute Bronchoscopy biopsy results 02/05/17 Subcarinal, fine-needle aspiration: Positive for metastatic carcinoma. Immunohistochemical stains performed are consistent with adenocarcinoma of lung origin. Oncology Consult, will need outpatient staging, new diagnosis discussed with the patient and answered all questions. Qualifiers: Laterality: unspecified laterality Qualified Code(s): C34.90 - Malignant neoplasm of unspecified part of unspecified bronchus or lung (2) Hospital-acquired pneumonia Current Visit: No Status: Acute 02/02/17 CT chest without contrast reveals interval development of small right pleural effusion with increased dense consolidation in the right lower lobe, most compatible with pneumonia. Set opacification of basilar segmental bronchi suggesting mucous secretions and/or aspiration. Mediastinal and right hilar adenopathy is identified; the right hilar adenopathy is confluent with very dense perihilar masslike consolidation. Underlying neoplasm should be considered. Blood cultures collected 02/01/17 reveal no growth to date Sputum cultures collected 02/01/17 revealed MRSA sensitive to Bactrim, Zyvox, doxycycline, vancomycin, (patient is allergic to Rocephin, Cipro, Levaquin, and vancomycin) Previously on Bactrim and Zosyn since 02/02/17 Currently on Augmentin 500 mg by mouth BID since 02/05/17 Recommendations: MSSA pneumonia on sputum culture, continue Augmentin for duration of inpatient course. Bronchoscopy biopsy results 02/05/17 Subcarinal, fine-needle aspiration: Positive for metastatic carcinoma. Immunohistochemical stains performed are consistent with adenocarcinoma of lung origin. Oncology consulted Pulmonary, Dr. Rodarte following Final result on the BAL showed normal upper respiratory tract brenda. Monitor renal function/ labs for drug toxicity, will renally adjust antibiotic dose as needed. Overall prognosis is very poor based on her pulmonary function. We'll continue to follow closely. (3) Failure of outpatient treatment Current Visit: No Status: Acute Patient has been admitted multiple times since October 2016 for pneumonia and was previously treated with Doxycycline, Bactrim, and Zosyn. Patient reports she has very limited IV access and required new port placement by IR on 01/04/17. Bronchoscopy completed on 01/10/17 confirmed growth of persistent Stenotrophomonas maltophilia found on sputum culture as far back as 10/10/2016. She was most recently discharged on 01/12/17 with Bactrim DS to finish total 14 -day course of treatment for pneumonia. (4) Acute exacerbation of chronic obstructive pulmonary disease (COPD) Current Visit: No Status: Acute Continue management per primary team and pulmonology (5) Mucus plugging of bronchi Current Visit: No Status: Chronic Pulmonology following. (6) Atrial flutter with rapid ventricular response Current Visit: Yes Status: Chronic Heart rate currently controlled on sotalol. Cardiology following - Subjective Interval history: Patient seen and examined. Patient is sitting up at bedside this morning after she was told about adenocarcinoma on biopsy results. Oncology has been consulted and all questions were answered. She is requiring 2 L supplemental oxygen today, her baseline 2L O2 requirement. She denies fever, chills, worsening shortness of breath, CP, abd pain, N/V/D/C, dysuria, or leg edema. Infect Dis PN-Objective Data - Labs CBC & Chem 7: 02/05/17 04:20 02/10/17 05:50 Labs: Laboratory Results - last 24 hr 02/10/17 02/10/17 05:50 05:50 PT 26.7 H INR 2.4 Sodium 142 Potassium 4.3 Chloride 101 Carbon Dioxide 33 H BUN 46 H Creatinine 0.91 Est GFR ( Amer) > 60 Est GFR (Non-Af Amer) > 60 BUN/Creatinine Ratio 51 H Glucose 125 H Calculated Osmolality 307 H Calcium 8.6 Total Bilirubin 0.3 AST 25 ALT 24 Alkaline Phosphatase 163 H Serum Total Protein 5.8 L Albumin 2.8 L Globulin 3.0 Albumin/Globulin Ratio 0.9 L Cultures: Cultures 02/05/17 15:14 Respiratory Culture - Final Right Lower Lobe Lung Normal upper respiratory tract brenda. No apparent pathogens isolated. 02/05/17 15:14 Acid Fast Stain - Final Right Lower Lobe Lung 02/05/17 15:14 Gram Stain - Final Right Lower Lobe Lung 02/01/17 23:52 Sputum Culture - Final Sputum Staphylococcus aureus Serology 02/05/17 02/03/17 Range/Units 15:14 00:45 Fluid Source rll bal Fluid Volume 24 mL Fluid Appearance Cloudy A (Clear) Fluid RBC TNP Fld Tot Nucleated Cell TNP Fluid Seg Neutrophil % 23.0 % Fld Band Neutrophil % Test Not Performed Fluid Lymphocytes % 13.0 % Fluid Monocytes % 1.0 % Fluid Eosinophils % Test Not Performed Fluid Basophils % Test Not Performed Fluid Other Cells % 63.0 % Stool Occult Blood Positive A (Negative) Exam - Constitutional Vitals: Temp Pulse Resp BP Pulse Ox 97.6 F 65 20 132/84 93 02/10/17 07:01 02/10/17 07:01 02/10/17 07:31 02/10/17 07:01 02/10/17 07:31 General appearance: cooperative, no acute distress, no febrile - Head Head exam: Present: atraumatic, normal inspection, normocephalic - Eye Eye exam: Present: PERRL, conjuntiva pink - ENT ENT exam: Present: mucous membranes moist, normal oropharynx - Neck Neck exam: Present: normal inspection. Absent: lymphadenopathy, tenderness, thyromegaly - Respiratory Respiratory exam: Present: decreased breath sounds (Right greater than left), prolonged expiratory phase, wheezes (mild expiratory wheezes) - Cardiovascular Cardiovascular exam: Present: RRR, +S1, +S2 - GI/Abdominal GI/Abdominal exam: Present: normal bowel sounds. Absent: firm, guarding, rebound, soft, tenderness - Extremities Exam Extremities exam: Present: normal inspection. Absent: pedal edema, tenderness - Neurological Exam Neurological exam: Present: alert, oriented X3. Absent: altered, motor sensory deficit - Psychiatric Psychiatric exam: Present: anxious, flat affect - Skin Skin exam: Present: dry, rash. Absent: erythema - VTE Documentation of Mechanical Device: Intermittent pneumatic compression device Consult Discharge Plan - Plan Referrals: Christoph Hughes DO [Primary Care Provider] - 02/11/17 3:00 pm - Attending Attestation I examined this patient and my medical decision-making was reviewed with the Resident Physician. I agree with the documented findings, disposition and treatment plan as described except to the extent set forth below.
[2017-02-10] MEDS: predniSONE 20 MG TABLET PO SCH (10:10)
[2017-02-10] MEDS: Amoxicillin/Clavulanate 500 MG TABLET PO SCH ×2 (10:10→16:17)
[2017-02-10] MEDS: Furosemide 40 MG TABLET PO SCH ×2 (10:13→16:17)
[2017-02-10] MEDS: traMADol 50 MG TABLET PO PRN ×3 (10:13→22:25)
[2017-02-10] MEDS: Loratadine 10 MG TABLET PO SCH (10:13)
[2017-02-10] MEDS: Cholecalciferol (D-3) 1,000 UNIT TABLET PO SCH (10:13)
--- NOTE | 2017-02-10 17:11 | Oncology Inp Consult Note ---
Date of Encounter: 02/10/17 Time of Encounter: 17:00 Assessment and Plan (1) Adenocarcinoma of lung Status: Acute Assessment and plan: s/p bx 02/05/17 bronchoscopy and a subcarinal lymph node biopsy shows a TTF-1 positive, and one positive metastatic carcinoma suggestive of lung primary. We reviewed lab results in detail with patient currently she is also treated with antibiotics for staph in sputum culture clinically improving. CT imaging findings showing right hilar lung consolidation and subcarinal mediastinal lymphadenopathy. We discussed up PET imaging MRI scan to further stage, possibly treated with chemoradiation therapy if there is no evidence of distant metastatic disease. She will be scheduled on outpatient basis for these testing upon discharge from the hospital. Multiple comorbidities noted, recurrent pneumonia, COPD on O2 rheumatoid arthritis currently not taking any immunosuppressive sense. She also has a Mediport. Plan as above was discussed with the patient and her daughters in detail Qualifiers: Laterality: unspecified laterality Qualified Code(s): C34.90 - Malignant neoplasm of unspecified part of unspecified bronchus or lung - Data of Consult Requesting Physician: Suzanna Pierre MD Primary Care Provider: Christoph Hughes - Consult Narrative Reason for consult: lung cancer History of present illness: Ms. Dewitt is a 71 year old female with multiple medical history, significant for emphysema, COPD, atrial fibrillation, history of congestive heart failure, myocardial infarction hypertension, rheumatoid arthritis with deformity, cardiomyopathy status post cardiac valve replacement, history of adenocarcinoma of the lungs status post bronchoscopy and subcarinal lymph node biopsy from 10/2016, patient also has some MRSA pneumonia in sputum culture, she is hospitalized with shortness of breath which is improved, she is baseline at home oxygen. She denies any chest discomfort or back pain she has joint aches from arthritis. Patient has been admitted several times since October 2016 for pneumonia treated with multiple antibiotics, for organisms in sputum culture infectious disease following the patient. Patient had a CT imaging without contrast 02/02/2017 that shows mediastinal and right hilar adenopathy, masslike consolidation in the right lung, right hilum small right pleural effusion and consolidation right lower lobe compatible with postobstructive pneumonia/aspiration. Past Med Surg Social Fam HX - Past Medical History Medical history: arthritis, atrial fibrillation, cardiomyopathy, CHF, COPD, fibromyalgia, hypertension, myocardial infarction, osteoporosis, RA, other Psychiatric history: no psych history - Past Surgical History Surgical History: angioplasty/stent, cholecystectomy, coronary bypass (CABG), heart valve replacement, orthopedic, other - Social History Smoking Status: Former smoker Smokeless Tobacco Status: No Alcohol use: none Drug use: none - Family History Father Living Status: Hx Family Cardiac Disorders: Yes (open heart surgery) Hx Family Respiratory Disorders: No Hx Family Cancer: Yes (Liver cancer w/ mets) Hx Family GI Disorders: No Hx Family Endocrine Disorder: No Hx Family Neuromuscular Disorders: No Hx Family Neurologic Disorders: No Hx Family HEENT Disorders: No Hx Family Autoimmune Disorders: No Mother Living Status: Hx Family Cardiac Disorders: No Hx Family Respiratory Disorders: Yes Hx Family Cancer: Yes (bone, lung) Hx Family GI Disorders: No Hx Family Endocrine Disorder: No Hx Family Neuromuscular Disorders: No Hx Family Neurologic Disorders: No Hx Family HEENT Disorders: No Hx Family Autoimmune Disorders: No Medications and Allergies Albuterol Sulfate [Albuterol Inhaler] 1 - 2 puff IH Q4HR PRN 11/24/15 [History] Allopurinol [Zyloprim 100 MG] 100 mg PO DAILY 11/24/15 [History] Budesonide/Formoterol 160/4.5 [Symbicort 160/4.5] 2 puff IH BIDR 11/24/15 [ History] Calcium Carbonate [Calcium] 500 mg PO BID 11/24/15 [History] Cholecalciferol (D-3) [Vitamin D] 2,000 unit PO DAILY 11/24/15 [History] Fluticasone Propionate Nasal [Flonase] 1 spray NS DAILY 11/24/15 [History] Gabapentin [Neurontin] 200 mg PO HS 11/24/15 [History] Loratadine [Claritin] 10 mg PO DAILY 11/24/15 [History] Metoprolol XL (24 HR) Succ [Toprol Xl] 12.5 mg PO BID 11/24/15 [History] Montelukast [Singulair] 10 mg PO DAILY 11/24/15 [History] Nitroglycerin [Nitrostat] 0.4 mg SL Q5M PRN 11/24/15 [History] Nortriptyline [Pamelor] 10 mg PO HS 11/24/15 [History] Roflumilast [Daliresp] 500 mcg PO DAILY 11/24/15 [History] Vitamin B Complex [B Complex] 1 tab PO DAILY 11/24/15 [History] Umeclidinium [place] [Incruse Ellipta] 1 puff IH DAILY 12/17/15 [History] Atorvastatin [Lipitor] 10 mg PO HS 01/01/16 [History] Albuterol Neb [Proventil Neb] 2.5 mg IH Q4HR PRN 08/25/16 [History] Bifidobacterium Infantis [Align] 4 mg PO DAILY 08/25/16 [History] Oxygen 2 l IN CONT #1 each 08/26/16 [Rx] Tramadol HCl 50 - 100 mg PO QID PRN 09/13/16 [History] Esomeprazole Magnesium [Nexium] 40 mg PO DAILY #30 capsule. 10/03/16 [Rx] Furosemide [Lasix] 40 mg PO BID #60 tablet 10/03/16 [Rx] Acetylcysteine [K-Noibkn-n-Cysteine] 600 mg PO BID 10/08/16 [History] Warfarin [Coumadin] 2.5 mg PO FRSA 01/18/17 [History] Warfarin [Coumadin] 5 mg PO SUWE 01/18/17 [History] Warfarin [Coumadin] 7.5 mg PO TUTH 01/18/17 [History] Diltiazem CD (24hr) [Cardizem CD] 180 mg PO DAILY #30 01/22/17 [Rx] Potassium Chloride [K-Tab ER] 30 meq PO DAILY 02/01/17 [History] predniSONE [PredniSONE] See Taper PO TAPER 02/01/17 [History] Allergies ceftriaxone [From Rocephin] Allergy (Severe, Verified 01/18/17 09:26) Hives ciprofloxacin [From Cipro HC] Allergy (Severe, Verified 01/18/17 09:26) Hives levofloxacin [From Levaquin] Allergy (Severe, Verified 01/18/17 09:26) Hives vancomycin Allergy (Severe, Verified 02/07/17 09:49) Rash 02/07/17: pt states when given vancomycin before she "broke out in a rash all over and itching"-Isamar Yates.......Spoke with ID from [facility], in 2007 presented with skin rash which was subsequently attributed to either vancomycin, amiodarone, or another medicine as all other causes were ruled out. Important to note this was recorded as a rash and not hives, trouble breathing, etc. hydrocortisone [From Cipro ] Allergy (Intermediate, Verified 01/18/17 09:26) Hives All systems: reviewed and no additional remarkable complaints except as stated Review of systems: as noted in hpi Oncology - Exam - Constitutional Vitals: Temp Pulse Resp BP Pulse Ox 97.9 F 75 16 115/60 95 02/10/17 16:27 02/10/17 16:27 02/10/17 16:27 02/10/17 16:27 02/10/17 16:27 General appearance: mild distress - Head Head exam: Present: atraumatic, normal inspection - Eye Eye exam: Present: sclera anicteric - ENT ENT exam: Present: mucous membranes moist - Respiratory Respiratory exam: Present: CTAB - Cardiovascular Cardiovascular exam: Present: +S1, +S2 - GI/Abdominal GI/Abdominal exam: Present: normal bowel sounds, soft - Extremities Exam Extremities exam: Present: joint swelling, normal inspection - Back Exam Back exam: Present: normal inspection - Psychiatric Psychiatric exam: Present: normal affect Oncology - Results - Labs Labs: [facility] 02/10/17 05:50 Sodium 142 Potassium 4.3 Chloride 101 Carbon Dioxide 33 H BUN 46 H Creatinine 0.91 Glucose 125 H Calcium 8.6 Liver Function 02/10/17 Range/Units 05:50 Total Bilirubin 0.3 (0.2-1.2) mg/dL AST 25 (5-34) Units/L ALT 24 (0-55) Units/L Alkaline Phosphatase 163 H (38-126) Units/L Albumin 2.8 L (3.5-5.0) g/dL - Imaging and Cardiology CT scan - chest Status: image reviewed by me Consult Discharge Plan - Plan Referrals: Christoph Hughes DO [Primary Care Provider] - 02/11/17 3:00 pm
--- NOTE | 2017-02-10 17:46 | Internal Med Progress Note ---
Date of Encounter: 02/10/17 Time of Encounter: 12:00 - Assessment and plan (1) Atrial fibrillation Current Visit: Yes Status: Chronic Assessment and plan: Patient presented with atrial fibrillation with rapid ventricular response, has been evaluated by cardiology and started on sotalol. Currently heart rate is well controlled. Continue anticoagulation with bridging Lovenox and Coumadin. INR noted to be 2.4 today, target INR 2.5-3.5. Qualifiers: Atrial fibrillation type: paroxysmal Qualified Code(s): I48.0 - Paroxysmal atrial fibrillation (2) Acute and chronic respiratory failure Current Visit: Yes Status: Chronic Assessment and plan: Due to underlying COPD and CHF. Noted to be on home oxygen at 2-3 L/m via nasal cannula. Continue when necessary supplemental oxygen. Qualifiers: Respiratory failure complication: hypoxia Qualified Code(s): J96.21 - Acute and chronic respiratory failure with hypoxia (3) GI bleed Current Visit: Yes Status: Resolved Qualifiers: GI bleed type/associated pathology: melena Qualified Code(s): K92.1 - Melena (4) Pneumonia Current Visit: Yes Status: Acute Assessment and plan: Patient was noted to have multiple admissions with recurrent pneumonias and imaging showing infiltrates/mass like opacity suggestive of infection versus underlying malignancy. Pulmonology was consulted and patient underwent bronchoscopy with EBUS, pathology report noted-consistent with adenocarcinoma of the right lung involving subcarinal lymph nodes . Consulted oncology. Sputum culture grows MSSA, continue Augmentin. Infectious diseases on board, currently recommend oral Augmentin therapy. Continue supportive care and supplemental oxygen. Qualifiers: Pneumonia type: due to methicillin-sensitive Staphylococcus aureus (MSSA) Laterality: right Lung location: lower lobe of lung Qualified Code(s): J15.211 - Pneumonia due to Methicillin susceptible Staphylococcus aureus (5) Hypertension Current Visit: Yes Status: Chronic Qualifiers: Hypertension type: essential hypertension Qualified Code(s): I10 - Essential (primary) hypertension (6) H/O mitral valve replacement with mechanical valve Current Visit: Yes Status: Chronic Assessment and plan: Continue anticoagulation with Lovenox bridging and Coumadin for goal INR 2.5- 3.5. (7) Anxiety Current Visit: Yes Status: Chronic (8) CKD (chronic kidney disease) stage 3, GFR 30-59 ml/min Current Visit: Yes Status: Chronic (9) KYLIE (obstructive sleep apnea) Current Visit: Yes Status: Chronic (10) CAD (coronary artery disease) Current Visit: Yes Status: Chronic Qualifiers: Coronary Disease-Associated Artery/Lesion type: [place] artery [place] vs. transplanted heart: [place] heart Associated angina: without angina Qualified Code(s): I25.10 - Atherosclerotic heart disease of [place] coronary artery without angina pectoris - Subjective Interval history: Reports feeling well; no chest pain, palpitations, has intermittent cough and dyspnea; - Constitutional Vitals: Temp Pulse Resp BP Pulse Ox 97.9 F 75 16 115/60 95 02/10/17 16:27 02/10/17 16:27 02/10/17 16:27 02/10/17 16:27 02/10/17 16:27 General appearance: Present: A&O X 3, answers questions appropriately - Respiratory Respiratory exam: Present: CTAB. Absent: accessory muscle use, rales, rhonchi, wheezes - Cardiovascular Cardiovascular exam: Present: RRR, +S1, +S2. Absent: diastolic murmur, gallop, rubs, systolic murmur - GI/Abdominal GI/Abdominal exam: Present: normal bowel sounds, soft, no peritoneal signs. Absent: distended, tenderness Internal Medicine: Result - Labs CBC & Chem 7: 02/05/17 04:20 02/10/17 05:50 Labs: BMP 02/10/17 05:50 Sodium 142 Potassium 4.3 Chloride 101 Carbon Dioxide 33 H BUN 46 H Creatinine 0.91 Glucose 125 H Calcium 8.6 Liver Function 02/10/17 Range/Units 05:50 Total Bilirubin 0.3 (0.2-1.2) mg/dL AST 25 (5-34) Units/L ALT 24 (0-55) Units/L Alkaline Phosphatase 163 H (38-126) Units/L Albumin 2.8 L (3.5-5.0) g/dL - ABG Interpretation ABG results: ABG ABG pH 7.42 pH Units (7.32-7.45) 02/04/17 06:20 ABG pCO2 42 mmHg (35-45) 02/04/17 06:20 ABG pO2 129 mmHg (85-104) H 02/04/17 06:20 ABG O2 Saturation 99 % (95-98) H 02/04/17 06:20 PT/INR, D-dimer PT 26.7 Seconds (9.4-12.1) H 02/10/17 05:50 - VTE Documentation of Mechanical Device: Intermittent pneumatic compression device Consult Discharge Plan - Plan Instructions: Atrial Flutter (DC), Atrial Fibrillation (DC), Acute Respiratory Distress Syndrome (DC), Chronic Obstructive Pulmonary Disease (DC), Sepsis (DC) , Anemia (GEN), Pneumonia (DC) Additional Instructions: office will call patient with new appointment F/up with [facility]- in 1 week; she needs appointment prior to discharge Referrals: Christoph Hughes DO [Primary Care Provider] - 02/11/17 3:00 pm Prescriptions: Amoxicillin/Clavulanate [Augmentin] 500 mg PO BIDWM #10 tab predniSONE [PredniSONE] 40 mg PO DAILY #8 tab
[2017-02-10] MEDS ORDERED: *HR* Warfarin 7.5 MG TABLET PO ONE (18:00)
[2017-02-10] MEDS: Gabapentin 100 MG CAPSULE PO SCH (22:25)
[2017-02-11] MEDS: Ipratropium/Albuterol Neb 3 ML IH SCH ×3 (04:46→11:43)
[2017-02-11 05:34] LABS: Prothrombin Time 33.6 Seconds (9.4-12.1)
[2017-02-11] MEDS: Budesonide/Formoterol 160/4.5 MDI IH SCH (07:38)
[2017-02-11 07:57] VITALS: BP 110/74
[2017-02-11] MEDS: Amoxicillin/Clavulanate 500 MG TABLET PO SCH (08:37)
[2017-02-11] MEDS: Loratadine 10 MG TABLET PO SCH (08:37)
[2017-02-11] MEDS: Cholecalciferol (D-3) 1,000 UNIT TABLET PO SCH (08:37)
[2017-02-11] MEDS: Furosemide 40 MG TABLET PO SCH (08:38)
[2017-02-11] MEDS ORDERED: predniSONE 20 MG TABLET PO SCH (09:00)
[2017-02-11] MEDS: traMADol 50 MG TABLET PO PRN (11:00)
--- NOTE | 2017-02-11 11:04 | Discharge Summary ---
Date of Encounter: 02/11/17 Time of Encounter: 10:54 - Discharge Diagnosis (1) Adenocarcinoma of lung Priority: Primary Status: Acute Qualifiers: Laterality: right Qualified Code(s): C34.91 - Malignant neoplasm of unspecified part of right bronchus or lung (2) Atrial fibrillation Priority: Primary Status: Chronic Qualifiers: Atrial fibrillation type: paroxysmal Qualified Code(s): I48.0 - Paroxysmal atrial fibrillation (3) Acute and chronic respiratory failure Priority: Primary Status: Chronic Qualifiers: Respiratory failure complication: hypoxia Qualified Code(s): J96.21 - Acute and chronic respiratory failure with hypoxia (4) GI bleed Priority: Primary Status: Resolved Qualifiers: GI bleed type/associated pathology: melena Qualified Code(s): K92.1 - Melena (5) Pneumonia Priority: Primary Status: Acute Qualifiers: Pneumonia type: due to methicillin-sensitive Staphylococcus aureus (MSSA) Laterality: right Lung location: lower lobe of lung Qualified Code(s): J15.211 - Pneumonia due to Methicillin susceptible Staphylococcus aureus (6) Hypertension Priority: Secondary Status: Chronic Qualifiers: Hypertension type: essential hypertension Qualified Code(s): I10 - Essential (primary) hypertension (7) H/O mitral valve replacement with mechanical valve Priority: Secondary Status: Chronic (8) Anxiety Priority: Secondary Status: Chronic (9) CKD (chronic kidney disease) stage 3, GFR 30-59 ml/min Priority: Secondary Status: Chronic (10) KYLIE (obstructive sleep apnea) Priority: Secondary Status: Chronic (11) CAD (coronary artery disease) Priority: Secondary Status: Chronic Qualifiers: Coronary Disease-Associated Artery/Lesion type: [place] artery [place] vs. transplanted heart: [place] heart Associated angina: without angina Qualified Code(s): I25.10 - Atherosclerotic heart disease of [place] coronary artery without angina pectoris - Discharge Medications Prescriptions: Amoxicillin/Clavulanate [Augmentin] 500 mg PO BIDWM #10 tab predniSONE [PredniSONE] 40 mg PO DAILY #8 tab Home Medications: Albuterol Sulfate [Albuterol Inhaler] 1 - 2 puff IH Q4HR PRN 11/24/15 [History] Allopurinol [Zyloprim 100 MG] 100 mg PO DAILY 11/24/15 [History] Budesonide/Formoterol 160/4.5 [Symbicort 160/4.5] 2 puff IH BIDR 11/24/15 [ History] Calcium Carbonate [Calcium] 500 mg PO BID 11/24/15 [History] Cholecalciferol (D-3) [Vitamin D] 2,000 unit PO DAILY 11/24/15 [History] Fluticasone Propionate Nasal [Flonase] 1 spray NS DAILY 11/24/15 [History] Gabapentin [Neurontin] 200 mg PO HS 11/24/15 [History] Loratadine [Claritin] 10 mg PO DAILY 11/24/15 [History] Montelukast [Singulair] 10 mg PO DAILY 11/24/15 [History] Nitroglycerin [Nitrostat] 0.4 mg SL Q5M PRN 11/24/15 [History] Nortriptyline [Pamelor] 10 mg PO HS 11/24/15 [History] Roflumilast [Daliresp] 500 mcg PO DAILY 11/24/15 [History] Vitamin B Complex [B Complex] 1 tab PO DAILY 11/24/15 [History] Umeclidinium [place] [Incruse Ellipta] 1 puff IH DAILY 12/17/15 [History] Atorvastatin [Lipitor] 10 mg PO HS 01/01/16 [History] Albuterol Neb [Proventil Neb] 2.5 mg IH Q4HR PRN 08/25/16 [History] Bifidobacterium Infantis [Align] 4 mg PO DAILY 08/25/16 [History] Oxygen 2 l IN CONT #1 each 08/26/16 [Rx] Tramadol HCl 50 - 100 mg PO QID PRN 09/13/16 [History] Esomeprazole Magnesium [Nexium] 40 mg PO DAILY #30 capsule. 10/03/16 [Rx] Furosemide [Lasix] 40 mg PO BID #60 tablet 10/03/16 [Rx] Acetylcysteine [E-Ldjzgz-q-Cysteine] 600 mg PO BID 10/08/16 [History] Warfarin [Coumadin] 2.5 mg PO FRSA 01/18/17 [History] Warfarin [Coumadin] 5 mg PO SUWE 01/18/17 [History] Warfarin [Coumadin] 7.5 mg PO TUTH 01/18/17 [History] Potassium Chloride [K-Tab ER] 30 meq PO DAILY 02/01/17 [History] Amoxicillin/Clavulanate [Augmentin] 500 mg PO BIDWM #10 tab 02/11/17 [Rx] Sotalol [Betapace] 80 mg PO Q12H tab 02/11/17 [Rx] predniSONE [PredniSONE] 40 mg PO DAILY #8 tab 02/11/17 [Rx] Allergies/Adverse Reactions: Allergies ceftriaxone [From Rocephin] Allergy (Severe, Verified 01/18/17 09:26) Hives ciprofloxacin [From Cipro HC] Allergy (Severe, Verified 01/18/17 09:26) Hives levofloxacin [From Levaquin] Allergy (Severe, Verified 01/18/17 09:26) Hives vancomycin Allergy (Severe, Verified 02/07/17 09:49) Rash 02/07/17: pt states when given vancomycin before she "broke out in a rash all over and itching"-Isamar Yates.......Spoke with ID from [facility], in 2007 presented with skin rash which was subsequently attributed to either vancomycin, amiodarone, or another medicine as all other causes were ruled out. Important to note this was recorded as a rash and not hives, trouble breathing, etc. hydrocortisone [From Cipro HC] Allergy (Intermediate, Verified 01/18/17 09:26) Hives Date of admission: 02/01/17 20:45 Primary care physician: Christoph Hughes Consults: 02/01/17 20:47 Consult to Cardiology [CONS] Routine Comment: Consulting Provider: Cardiology Jennifer Reason for Consult: afib RVR Time Notified: 20:48 Call Completed: No 02/01/17 20:48 Consult to Infectious Diseases [CONS] Routine Consulting Provider: Infectious Disease Jennifer Reason for Consult: continued pneumonia- previous culture stenotrophomonas Time Notified: 20:50 Call Completed: No 02/01/17 20:50 Consult to Pulmonology [CONS] Routine Consulting Provider: [facility] [place] Reason for Consult: pneumonia stenotrophomonas in past- COPD Time Notified: 20:52 Call Completed: No 02/01/17 21:09 Consult to Respiratory Therapy [CONS] Routine Reason for Consult: Flutter valve Time Notified: 21:09 Call Completed: No 02/03/17 12:54 Consult to Respiratory Therapy [CONS] Routine Reason for Consult: Patient needs to get nocturnal pulse ox study done to determine if patient needs bipap on discharge. Call Completed: Yes 02/03/17 17:26 Consult to Gastroenterology [CONS] Routine Consulting Provider: Jessie Rodriguez Reason for Consult: michelle Time Notified: 17:27 Call Completed: No 02/10/17 11:04 Consult to Oncology Hematology [CONS] Routine Consulting Provider: Capri Jordan Reason for Consult: New right lung cancer Call Completed: Yes Discharging clinician: Suzanna Pierre Anticipated date of discharge: 02/11/17 - Patient Status Disposition: Home Health Service Condition: Fair Functional capacity at discharge: uses cane/walker Overall status at discharge: patient is progressing back to baseline - Discharge Instructions Instructions: Atrial Flutter (DC), Atrial Fibrillation (DC), Acute Respiratory Distress Syndrome (DC), Chronic Obstructive Pulmonary Disease (DC), Sepsis (DC) , Anemia (GEN), Pneumonia (DC) Follow Up With: Christoph Hughes DO [Primary Care Provider] - 02/11/17 3:00 pm Additional Instructions: office will call patient with new appointment F/up with [facility]- in 1 week; she needs appointment prior to discharge - Diet and Activity Activity: as per physical therapy, wear oxygen at all times Diet: low fat, low cholesterol, low salt diet Hospital course: Ms. Dewitt is a 71 year old female with the above medical problems who was initially admitted with shortness of breath and palpitations. She was noted to have atrial fibrillation with rapid ventricular response and has been on oral Cardizem at home. Cardiology was consulted and she was subsequently stabilized on oral sotalol, beta halle and calcium channel halle have been held. Patient has been on Coumadin for long-term anticoagulation with target INR 2.5- 3.54 mechanical mitral valve and atrial fibrillation. She was also noted to have recurrent episodes of pneumonia at least 2 in January 2017 and chest x-ray during this admission also revealed right basal infiltrate. Patient has been compliant to her medications/antibiotics in the past. At this point, underlying malignancy and postobstructive pneumonia is suspected. Infectious diseases has been on board and patient was subsequently started on a short course of oral Augmentin, with which she is currently being discharged. Pulmonology was consulted and patient underwent bronchoscopy and pathology report eventually was consistent with right lung adenocarcinoma involving subcarinal lymph nodes. Oncology was consulted and patient would need outpatient follow-up for further testing and staging before deciding treatment options. Patient is otherwise medically stable for discharge. Referral for home health services has been completed. - Time Spent with Patient Total time spent providing and/or coordinating discharge services: Greater than 30 minutes (40 min) - Constitutional Vitals: Temp Pulse Resp BP Pulse Ox 97.6 F 77 24 110/74 87 02/11/17 07:00 02/11/17 07:00 02/11/17 07:38 02/11/17 07:00 02/11/17 09:02 General appearance: Present: A&O X 3, answers questions appropriately - Respiratory Respiratory exam: Present: CTAB. Absent: accessory muscle use, rales, rhonchi, wheezes - Cardiovascular Cardiovascular exam: Present: RRR, +S1, +S2. Absent: diastolic murmur, gallop, rubs, systolic murmur - VTE Documentation of Mechanical Device: Intermittent pneumatic compression device
--- NOTE | 2017-02-11 11:08 | Physician Discharge Referral ---
Home Health/Hosp Referral Info Transfer to: Home Health Attending Provider: Suzanna Pierre Provider in Charge Post Discharge: PCP - Diagnosis (1) Adenocarcinoma of lung Priority: Primary Status: Acute (2) Atrial fibrillation Priority: Primary Status: Chronic (3) Acute and chronic respiratory failure Priority: Primary Status: Chronic (4) GI bleed Priority: Primary Status: Resolved (5) Pneumonia Priority: Primary Status: Acute (6) Hypertension Priority: Secondary Status: Chronic (7) H/O mitral valve replacement with mechanical valve Priority: Secondary Status: Chronic (8) Anxiety Priority: Secondary Status: Chronic (9) CKD (chronic kidney disease) stage 3, GFR 30-59 ml/min Priority: Secondary Status: Chronic (10) KYLIE (obstructive sleep apnea) Priority: Secondary Status: Chronic (11) CAD (coronary artery disease) Priority: Secondary Status: Chronic - Respiratory Orders Oxygen / L per min (2-3L/min via NC) Smoking Cessation: Smoking cessation has been advised. For more information, call the [facility] Quit Line at 7-807-OKSO-NOW. - Diet/Nutrition Diet/Nutrition Orders: Renal, Cardiac - Activity Activity Orders: Ambulate - Services Needed Following services are medically necessary services: Nursing, Physical Therapy, Occupational Therapy - Transfer Medications Prescriptions: Amoxicillin/Clavulanate [Augmentin] 500 mg PO BIDWM #10 tab predniSONE [PredniSONE] 40 mg PO DAILY #8 tab Home Medications: Albuterol Sulfate [Albuterol Inhaler] 1 - 2 puff IH Q4HR PRN 11/24/15 [History] Allopurinol [Zyloprim 100 MG] 100 mg PO DAILY 11/24/15 [History] Budesonide/Formoterol 160/4.5 [Symbicort 160/4.5] 2 puff IH BIDR 11/24/15 [ History] Calcium Carbonate [Calcium] 500 mg PO BID 11/24/15 [History] Cholecalciferol (D-3) [Vitamin D] 2,000 unit PO DAILY 11/24/15 [History] Fluticasone Propionate Nasal [Flonase] 1 spray NS DAILY 11/24/15 [History] Gabapentin [Neurontin] 200 mg PO HS 11/24/15 [History] Loratadine [Claritin] 10 mg PO DAILY 11/24/15 [History] Montelukast [Singulair] 10 mg PO DAILY 11/24/15 [History] Nitroglycerin [Nitrostat] 0.4 mg SL Q5M PRN 11/24/15 [History] Nortriptyline [Pamelor] 10 mg PO HS 11/24/15 [History] Roflumilast [Daliresp] 500 mcg PO DAILY 11/24/15 [History] Vitamin B Complex [B Complex] 1 tab PO DAILY 11/24/15 [History] Umeclidinium [place] [Incruse Ellipta] 1 puff IH DAILY 12/17/15 [History] Atorvastatin [Lipitor] 10 mg PO HS 01/01/16 [History] Albuterol Neb [Proventil Neb] 2.5 mg IH Q4HR PRN 08/25/16 [History] Bifidobacterium Infantis [Align] 4 mg PO DAILY 08/25/16 [History] Oxygen 2 l IN CONT #1 each 08/26/16 [Rx] Tramadol HCl 50 - 100 mg PO QID PRN 09/13/16 [History] Esomeprazole Magnesium [Nexium] 40 mg PO DAILY #30 capsule. 10/03/16 [Rx] Furosemide [Lasix] 40 mg PO BID #60 tablet 10/03/16 [Rx] Acetylcysteine [N-Gdrtsx-o-Cysteine] 600 mg PO BID 10/08/16 [History] Warfarin [Coumadin] 2.5 mg PO FRSA 01/18/17 [History] Warfarin [Coumadin] 5 mg PO SUWE 01/18/17 [History] Warfarin [Coumadin] 7.5 mg PO TUTH 01/18/17 [History] Potassium Chloride [K-Tab ER] 30 meq PO DAILY 02/01/17 [History] Amoxicillin/Clavulanate [Augmentin] 500 mg PO BIDWM #10 tab 02/11/17 [Rx] Sotalol [Betapace] 80 mg PO Q12H tab 02/11/17 [Rx] predniSONE [PredniSONE] 40 mg PO DAILY #8 tab 02/11/17 [Rx] Allergies/Adverse Reactions: Allergies ceftriaxone [From Rocephin] Allergy (Severe, Verified 01/18/17 09:26) Hives ciprofloxacin [From Cipro HC] Allergy (Severe, Verified 01/18/17 09:26) Hives levofloxacin [From Levaquin] Allergy (Severe, Verified 01/18/17 09:26) Hives vancomycin Allergy (Severe, Verified 02/07/17 09:49) Rash 02/07/17: pt states when given vancomycin before she "broke out in a rash all over and itching"-Isamar Yates.......Spoke with ID from [facility], in 2007 presented with skin rash which was subsequently attributed to either vancomycin, amiodarone, or another medicine as all other causes were ruled out. Important to note this was recorded as a rash and not hives, trouble breathing, etc. hydrocortisone [From Cipro HC] Allergy (Intermediate, Verified 01/18/17 09:26) Hives Certification: Further, I certify that my clinical findings support that this patient is homebound (i.e. absences from home require considerable and taxing effort and are for medical reasons or latter-day services or infrequently or short duration when for other reasons) because: Homebound Reason: Patient requires assistance of a person or device to safely leave home, Severity of cardiac or pulmonary status limits activity tolerance Attestation: My signature below is to certify that this patient is under my care and that I, or nurse practitioner, or a physician's fleet assistant working with me, has a face-to -face encounter with this patient.
[2017-02-11] MEDS ORDERED: Aminoglycoside Consult 1 EACH MC ONE (16:29)
[2017-02-11] MEDS ORDERED: *HR* Warfarin 3 MG TABLET PO ONE (18:00)
== END 2017-02-11 16:30 | disposition home health service (06) | DRG 166 ==
LOC: 2NENU 15:35 → EMEROO 15:35 → 2NENU 19:32 → SUATTDRO 20:45
PROVIDERS: ADMIT Internal Medicine; ATTEND Internal Medicine
PROC: ENDOEBX (2017-02-05 12:00)

== ENCOUNTER 2017-02-23 14:07 | Inpatient (IN) ==
[2017-02-23] MEDS ORDERED: methylPREDNISolone 125 MG/2 ML VIAL IVP ONE (16:27)
[2017-02-23] MEDS ORDERED: Ipratropium/Albuterol Neb 3 ML IH ONE (16:27)
--- NOTE | 2017-02-23 16:27 | Emergency Department Note ---
Disposition Clinical Impression: Hypoxia, Pleural effusion Disposition: Admitted As Inpatient Condition: Good Referrals: Christoph Hughes DO [Primary Care Provider] - Forms: ED Satisfaction Letter Time of Disposition: 19:49 SOB HPI - General Chief Complaint: ED Shortness of Breath/Dyspnea Stated Complaint: DEBBIE Time Seen by Provider: 02/23/17 15:49 Source: patient, family Limitations: no limitations Nursing Notes Reviewed: Yes Vital Signs Reviewed: Yes - History of Present Illness 71 year old female with HX of COPD, and newly diagnosed lung cancer and was recently admitted to the hospital and discharged a few days ago. Bobbi and her family at bedside state that she has been in the hospital all summer for pneumonia, lung cancer She most recently had a lung bronchoscopy and biopsy done for the lung cancer. Kalen states she feels like she is retaining fluid but also has a productive cough with red/brown/yellow sputum. Patient sttes that she is increasingly more short of breath but denies chest pain. She has a history fo 3x bypass, artifical valve, and 2 stents placed all since 2007. Patient denies fevers, abdominal pain, nausea, vomitting, UTI symptoms or hemturia/bloody stool. She rayo shave a history of atrial fibrillation and was most recently taken off cardizem and started on sotalol, she is not on digoxin therapy. - Related Data Home Medications Medication Instructions Recorded Confirmed Albuterol Sulfate [Albuterol 1 - 2 puff IH Q4HR PRN 11/24/15 02/23/17 Inhaler] Allopurinol [Zyloprim 100 MG] 100 mg PO DAILY 11/24/15 02/23/17 Budesonide/Formoterol 160/4.5 2 puff IH BIDR 11/24/15 02/23/17 [Symbicort 160/4.5] Calcium Carbonate [Calcium] 500 mg PO BID 11/24/15 02/23/17 Cholecalciferol (D-3) [Vitamin D] 2,000 unit PO DAILY 11/24/15 02/23/17 Fluticasone Propionate Nasal 1 spray NS DAILY 11/24/15 02/23/17 [Flonase] Gabapentin [Neurontin] 200 mg PO HS 11/24/15 02/23/17 Loratadine [Claritin] 10 mg PO DAILY 11/24/15 02/23/17 Montelukast [Singulair] 10 mg PO DAILY 11/24/15 02/23/17 Nitroglycerin [Nitrostat] 0.4 mg SL Q5M PRN 11/24/15 02/23/17 Nortriptyline [Pamelor] 10 mg PO HS 11/24/15 02/23/17 Roflumilast [Daliresp] 500 mcg PO DAILY 11/24/15 02/23/17 Vitamin B Complex [B Complex] 1 tab PO DAILY 11/24/15 02/23/17 Umeclidinium [place] [Incruse 1 puff IH DAILY 12/17/15 02/23/17 Ellipta] Atorvastatin [Lipitor] 10 mg PO HS 01/01/16 02/23/17 Albuterol Neb [Proventil Neb] 2.5 mg IH Q4HR PRN 08/25/16 02/23/17 Bifidobacterium Inf[place] [Align] 4 mg PO DAILY 08/25/16 02/23/17 Tramadol HCl 50 - 100 mg PO QID PRN 09/13/16 02/23/17 Warfarin [Coumadin] 5 mg PO SUMOWEFRSA 01/18/17 02/23/17 Warfarin [Coumadin] 7.5 mg PO TUTH 01/18/17 02/23/17 Potassium Chloride [K-Tab ER] 20 meq PO DAILY 02/01/17 02/23/17 Docusate [Colace] 300 mg PO BID 02/19/17 02/23/17 Diltiazem CD (24hr) [Cardizem CD] 180 mg PO DAILY 02/23/17 02/23/17 Enoxaparin [Lovenox] 60 mg SQ Q12HR 02/23/17 02/23/17 Previous Rx's Medication Instructions Recorded Oxygen 2 l IN CONT #1 each 08/26/16 Esomeprazole Magnesium [Nexium] 40 mg PO DAILY #30 capsule. 10/03/16 Furosemide [Lasix] 40 mg PO BID #60 tablet 10/03/16 Sotalol [Betapace] 80 mg PO Q12H tab 02/11/17 Allergies Allergy/AdvReac Type Severity Reaction Status Date / Time ceftriaxone Allergy Hives Verified 02/18/17 16:28 ciprofloxacin Allergy Hives Verified 02/18/17 16:28 levofloxacin Allergy Hives Verified 02/18/17 16:28 vancomycin Allergy Rash Verified 02/18/17 16:28 Constitutional: Denies: fever, chills, weakness, weight change Eyes: Denies: eye pain, eye discharge, vision change ENT ED: Denies: ear pain, throat pain, dental pain, hearing loss, epistaxis, congestion, dysphagia Cardiovascular: Reports: dyspnea on exertion. Denies: chest pain, palpitations , edema, syncope Respiratory: Denies: cough, dyspnea, wheezes, hemoptysis, stridor Gastrointestinal: Denies: abdominal pain, nausea, vomiting, diarrhea, constipation, hematemesis, melena, hematochezia Genitourinary: Denies: dysuria, frequency, hematuria, discharge Musculoskeletal: Denies: back pain, neck pain, arthralgia, myalgia Integumentary: Denies: rash, abrasion, lesions Neurological: Denies: headache, weakness, numbness, paresthesias, confusion, abnormal gait, vertigo Psychiatric: Denies: anxiety, depression, suicidal thoughts, homicidal thoughts , auditory hallucinations, visual hallucinations Endocrine: Denies: fatigue Hematological/Lymphatic: Denies: easy bleeding, easy bruising Allergic/Immunologic: Denies: facial swelling, urticaria Past Medical History - Past Medical History Medical history: Reports: arthritis, atrial fibrillation, cancer, cardiomyopathy , CHF, COPD, fibromyalgia, hypertension, myocardial infarction, osteoporosis, RA , other Surgical history: Reports: angioplasty/stent, cholecystectomy, coronary bypass ( CABG), heart valve replacement, orthopedic, other Psychiatric history: Reports: no psych history - Social History Smoking Status: Former smoker Smokeless Tobacco Status: No Alcohol use: Reports: none Drug use: Reports: none Physical Exam - General Limitations: no limitations General appearance: alert - Head Head exam: atraumatic, normocephalic, normal inspection - Eye Eye exam: Present: normal appearance, PERRL, EOMI - Expanded Eye Exam Pupils: Left: reactive - ENT ENT exam: normal exam, normal oropharynx, mucous membranes moist - Expanded ENT Exam External ear exam: Present: normal external inspection Mouth exam: Present: normal external inspection Teeth exam: Present: normal inspection Throat exam: Present: normal inspection - Neck Neck exam: Present: normal inspection, full ROM, trachea midline - Chest Chest inspection: Present: normal inspection, symmetric chest wall rise - Respiratory Respiratory exam: Present: wheezes - Cardiovascular Cardiovascular exam: Present: regular rate, normal rhythm, normal heart sounds - Abdominal Exam Abdominal exam: Present: soft, Non-Tender. Absent: tenderness, distention, guarding, rebound, rigidity - Extremities Exam Extremities exam: Present: normal inspection, full ROM. Absent: tenderness, pedal edema - Expanded Upper Extremity Exam Shoulder exam: Present: normal inspection, full ROM Arm exam: Present: normal inspection, full ROM Elbow exam: Present: normal inspection, full ROM Forearm/Wrist exam: Present: normal inspection, full ROM Hand exam: Present: normal inspection, full ROM Vascular exam: Normal: capillary refill, radial pulse - Expanded Lower Extremity Exam Hip/Pelvis exam: Present: normal inspection, full ROM Upper leg exam: Present: normal inspection, full ROM Knee exam: Present: normal inspection, full ROM Lower leg exam: Present: normal inspection, full ROM Ankle exam: Present: normal inspection, full ROM Foot/toe exam: Present: normal inspection, full ROM Neurovascular/Tendon exam: Absent: motor deficit, sensory deficit, tendon deficit - Back Exam Back exam: Present: normal inspection, full ROM. Absent: tenderness - Neurological Exam Neurological exam: Present: alert, oriented X3 - Expanded Neurological Exam Patient oriented to: Present: person, place, time Coma Scale Eye Opening: Spontaneous Coma Scale Motor Response: Obeys Commands Coma Scale Verbal Response: Oriented Coma Scale Total: 15 - Psychiatric Psychiatric exam: Present: normal affect, normal mood - Skin Skin exam: Present: warm, dry, intact, normal color Course Course Narrative: we will do a CTA chest to rule out PE, and dyspnea workup to evaluate for pneumonia. - Consultations Consultation #1: discussed case with Dr. Jara and he accepts patient to his service. Time: 19:48 Vital Signs Temperature 97.8 F 02/23/17 14:22 Pulse Rate 89 02/23/17 14:22 Respiratory Rate 18 02/23/17 14:22 Blood Pressure 102/70 02/23/17 14:22 O2 Sat by Pulse Oximetry 93 02/23/17 14:22 Temperature 98.1 F 02/23/17 16:00 Pulse Rate 88 02/23/17 19:48 Respiratory Rate 20 02/23/17 19:48 Blood Pressure 95/67 02/23/17 19:48 O2 Sat by Pulse Oximetry 94 02/23/17 19:48 Oxygen Delivery Oxygen Delivery Nasal Cannula Shortness of Breath/Dyspnea - Lab Data Result diagrams: 02/23/17 16:24 02/23/17 16:24 Lab Results 02/23/17 02/23/17 02/23/17 Range/Units 16:24 16:24 16:24 WBC 8.5 (4.3-11.1) K/mcL RBC 4.31 (3.82-4.97) M/mcL Hgb 11.2 L (11.5-15.4) g/dL Hct 35.2 L (35.3-44.9) % MCV 81.7 L (83.0-100.0) fL MCH 26.0 L (28.0-33.3) pg MCHC 31.8 (31.6-35.5) g/dL RDW 17.2 H (11.5-14.5) % Plt Count 123 L (140-400) K/mcL MPV 10.9 (9.4-12.4) fL Immature Gran % 0.5 (0-4) % Seg Neutrophils % 75.4 % Lymphocytes % 15.9 % Monocytes % 7.8 % Eosinophils % 0.0 % Basophils % 0.4 % Neutrophils # 6.4 (1.6-8.9) K/mcL Lymphocytes # 1.4 (0.6-4.6) K/mcL Monocytes # 0.7 (0.0-1.3) K/mcL Eosinophils # 0.0 (0.0-0.6) K/mcL Basophils # 0.0 (0.0-0.2) K/mcL PT (9.4-12.1) Seconds INR APTT (26.0-36.0) Seconds D-Dimer (0-500) ng/mLFEU ABG pH (7.32-7.45) pH Units ABG pCO2 (35-45) mmHg ABG pO2 (85-104) mmHg ABG HCO3 (21-27) mEQ/L ABG Total CO2 (20-26) mEq/L ABG O2 Saturation (95-98) % ABG Base Excess (-2.0 to 3.0) mEq/L Liter Flow L/MIN Blood Gas Modality Inspired O2 % Sodium 139 (136-145) mEq/L Potassium 3.2 L (3.5-4.5) mEq/L Chloride 103 (98-109) mEq/L Carbon Dioxide 30 H (19-29) mEq/L BUN 24 H (7-20) mg/dL Creatinine 0.70 (0.57-1.11) mg/dL Est GFR ( Amer) > 60 (> 60) Est GFR (Non-Af Amer) > 60 (> 60) BUN/Creatinine Ratio 34 H (6-26) Glucose 98 (70-99) mg/dL Calculated Osmolality 292 (280-300) Lactic Acid 0.8 (0.5-2.2) mmol/L Calcium 9.0 (8.6-10.8) mg/dL Total Bilirubin (0.2-1.2) mg/dL Direct Bilirubin (0.0-0.5) mg/dL Indirect Bilirubin (0.0-1.2) mg/dL AST (5-34) Units/L ALT (0-55) Units/L Alkaline Phosphatase (38-126) Units/L Troponin I (0-0.03) ng/mL B-Natriuretic Peptide (0-100) pg/mL Serum Total Protein (6.0-8.3) g/dL Albumin (3.5-5.0) g/dL Globulin (2.4-3.5) g/dL Albumin/Globulin Ratio (1.1-2.2) Lipase (8-78) Units/L 02/23/17 02/23/17 02/23/17 Range/Units 16:24 16:24 16:24 WBC (4.3-11.1) K/mcL RBC (3.82-4.97) M/mcL Hgb (11.5-15.4) g/dL Hct (35.3-44.9) % MCV (83.0-100.0) fL MCH (28.0-33.3) pg MCHC (31.6-35.5) g/dL RDW (11.5-14.5) % Plt Count (140-400) K/mcL MPV (9.4-12.4) fL Immature Gran % (0-4) % Seg Neutrophils % % Lymphocytes % % Monocytes % % Eosinophils % % Basophils % % Neutrophils # (1.6-8.9) K/mcL Lymphocytes # (0.6-4.6) K/mcL Monocytes # (0.0-1.3) K/mcL Eosinophils # (0.0-0.6) K/mcL Basophils # (0.0-0.2) K/mcL PT 13.7 H (9.4-12.1) Seconds INR 1.3 APTT 55.5 H (26.0-36.0) Seconds D-Dimer (0-500) ng/mLFEU ABG pH (7.32-7.45) pH Units ABG pCO2 (35-45) mmHg ABG pO2 (85-104) mmHg ABG HCO3 (21-27) mEQ/L ABG Total CO2 (20-26) mEq/L ABG O2 Saturation (95-98) % ABG Base Excess (-2.0 to 3.0) mEq/L Liter Flow L/MIN Blood Gas Modality Inspired O2 % Sodium (136-145) mEq/L Potassium (3.5-4.5) mEq/L Chloride (98-109) mEq/L Carbon Dioxide (19-29) mEq/L BUN (7-20) mg/dL Creatinine (0.57-1.11) mg/dL Est GFR ( Amer) (> 60) Est GFR (Non-Af Amer) (> 60) BUN/Creatinine Ratio (6-26) Glucose (70-99) mg/dL Calculated Osmolality (280-300) Lactic Acid (0.5-2.2) mmol/L Calcium (8.6-10.8) mg/dL Total Bilirubin (0.2-1.2) mg/dL Direct Bilirubin (0.0-0.5) mg/dL Indirect Bilirubin (0.0-1.2) mg/dL AST (5-34) Units/L ALT (0-55) Units/L Alkaline Phosphatase (38-126) Units/L Troponin I 0.02 (0-0.03) ng/mL B-Natriuretic Peptide 239 H (0-100) pg/mL Serum Total Protein (6.0-8.3) g/dL Albumin (3.5-5.0) g/dL Globulin (2.4-3.5) g/dL Albumin/Globulin Ratio (1.1-2.2) Lipase (8-78) Units/L 02/23/17 02/23/17 02/23/17 Range/Units 16:24 16:24 16:24 WBC (4.3-11.1) K/mcL RBC (3.82-4.97) M/mcL Hgb (11.5-15.4) g/dL Hct (35.3-44.9) % MCV (83.0-100.0) fL MCH (28.0-33.3) pg MCHC (31.6-35.5) g/dL RDW (11.5-14.5) % Plt Count (140-400) K/mcL MPV (9.4-12.4) fL Immature Gran % (0-4) % Seg Neutrophils % % Lymphocytes % % Monocytes % % Eosinophils % % Basophils % % Neutrophils # (1.6-8.9) K/mcL Lymphocytes # (0.6-4.6) K/mcL Monocytes # (0.0-1.3) K/mcL Eosinophils # (0.0-0.6) K/mcL Basophils # (0.0-0.2) K/mcL PT (9.4-12.1) Seconds INR APTT (26.0-36.0) Seconds D-Dimer 1718 H (0-500) ng/mLFEU ABG pH (7.32-7.45) pH Units ABG pCO2 (35-45) mmHg ABG pO2 (85-104) mmHg ABG HCO3 (21-27) mEQ/L ABG Total CO2 (20-26) mEq/L ABG O2 Saturation (95-98) % ABG Base Excess (-2.0 to 3.0) mEq/L Liter Flow L/MIN Blood Gas Modality Inspired O2 % Sodium (136-145) mEq/L Potassium (3.5-4.5) mEq/L Chloride (98-109) mEq/L Carbon Dioxide (19-29) mEq/L BUN (7-20) mg/dL Creatinine (0.57-1.11) mg/dL Est GFR ( Amer) (> 60) Est GFR (Non-Af Amer) (> 60) BUN/Creatinine Ratio (6-26) Glucose (70-99) mg/dL Calculated Osmolality (280-300) Lactic Acid (0.5-2.2) mmol/L Calcium (8.6-10.8) mg/dL Total Bilirubin 0.6 (0.2-1.2) mg/dL Direct Bilirubin 0.2 (0.0-0.5) mg/dL Indirect Bilirubin 0.4 (0.0-1.2) mg/dL AST 17 (5-34) Units/L ALT 15 (0-55) Units/L Alkaline Phosphatase 131 H (38-126) Units/L Troponin I (0-0.03) ng/mL B-Natriuretic Peptide 245 H (0-100) pg/mL Serum Total Protein 5.5 L (6.0-8.3) g/dL Albumin 2.4 L (3.5-5.0) g/dL Globulin 3.1 (2.4-3.5) g/dL Albumin/Globulin Ratio 0.8 L (1.1-2.2) Lipase (8-78) Units/L 02/23/17 02/23/17 Range/Units 16:24 18:06 WBC (4.3-11.1) K/mcL RBC (3.82-4.97) M/mcL Hgb (11.5-15.4) g/dL Hct (35.3-44.9) % MCV (83.0-100.0) fL MCH (28.0-33.3) pg MCHC (31.6-35.5) g/dL RDW (11.5-14.5) % Plt Count (140-400) K/mcL MPV (9.4-12.4) fL Immature Gran % (0-4) % Seg Neutrophils % % Lymphocytes % % Monocytes % % Eosinophils % % Basophils % % Neutrophils # (1.6-8.9) K/mcL Lymphocytes # (0.6-4.6) K/mcL Monocytes # (0.0-1.3) K/mcL Eosinophils # (0.0-0.6) K/mcL Basophils # (0.0-0.2) K/mcL PT (9.4-12.1) Seconds INR APTT (26.0-36.0) Seconds D-Dimer (0-500) ng/mLFEU ABG pH 7.46 H (7.32-7.45) pH Units ABG pCO2 37 (35-45) mmHg ABG pO2 92 (85-104) mmHg ABG HCO3 26.3 (21-27) mEQ/L ABG Total CO2 27.4 H (20-26) mEq/L ABG O2 Saturation 98 (95-98) % ABG Base Excess 2.5 (-2.0 to 3.0) mEq/L Liter Flow 5 L/MIN Blood Gas Modality [place] Inspired O2 40 % Sodium (136-145) mEq/L Potassium (3.5-4.5) mEq/L Chloride (98-109) mEq/L Carbon Dioxide (19-29) mEq/L BUN (7-20) mg/dL Creatinine (0.57-1.11) mg/dL Est GFR ( Amer) (> 60) Est GFR (Non-Af Amer) (> 60) BUN/Creatinine Ratio (6-26) Glucose (70-99) mg/dL Calculated Osmolality (280-300) Lactic Acid (0.5-2.2) mmol/L Calcium (8.6-10.8) mg/dL Total Bilirubin (0.2-1.2) mg/dL Direct Bilirubin (0.0-0.5) mg/dL Indirect Bilirubin (0.0-1.2) mg/dL AST (5-34) Units/L ALT (0-55) Units/L Alkaline Phosphatase (38-126) Units/L Troponin I (0-0.03) ng/mL B-Natriuretic Peptide (0-100) pg/mL Serum Total Protein (6.0-8.3) g/dL Albumin (3.5-5.0) g/dL Globulin (2.4-3.5) g/dL Albumin/Globulin Ratio (1.1-2.2) Lipase 18 (8-78) Units/L - EKG Data EKG attestation: Yes I reviewed and interpreted this EKG. EKG results narrative: NSR with rate of 85. NO STEMI. normal intervals. T wave inversion present in leads V1-3 although no change from 02/05/17. 1603 EKG #2: atrial fibrillation with rate of 128. EKG #3: NSR with rate of 83.
[2017-02-23 16:51] LABS: Basophils % 0.4 %; Hematocrit 35.2 % (35.3-44.9); Hemoglobin 11.2 g/dL (11.5-15.4); Immature Granulocytes % 0.5 % (0-4); Lymphocytes # 1.4 K/mcL (0.6-4.6); Lymphocytes % 15.9 %; Mean Corpuscular HGB Conc 31.8 g/dL (31.6-35.5); Mean Corpuscular Volume 81.7 fL (83.0-100.0); Mean Platelet Volume 10.9 fL (9.4-12.4); Monocytes # 0.7 K/mcL (0.0-1.3); Monocytes % 7.8 %; Neutrophils # 6.4 K/mcL (1.6-8.9); Platelet Count 123 K/mcL (140-400); Red Blood Count 4.31 M/mcL (3.82-4.97); Red Cell Distribution Width 17.2 % (11.5-14.5); Segmented Neutrophils % 75.4 %
[2017-02-23 16:55] LABS: INR 1.3; Prothrombin Time 13.7 Seconds (9.4-12.1)
[2017-02-23 16:58] LABS: Activated Partial Thrombo Time 55.5 Seconds (26.0-36.0)
[2017-02-23 17:03] LABS: BUN/Creatinine Ratio 34 (6-26); Blood Urea Nitrogen 24 mg/dL (7-20); Carbon Dioxide 30 mEq/L (19-29); Chloride 103 mEq/L (98-109); Glucose 98 mg/dL (70-99); Osmolality,Calculated 292 (280-300); Potassium 3.2 mEq/L (3.5-4.5); Sodium 139 mEq/L (136-145); eGFR For African Americans > 60 (> 60); eGFR For Non-African Americans > 60 (> 60)
[2017-02-23 17:04] LABS: Albumin 2.4 g/dL (3.5-5.0); Albumin/Globulin Ratio 0.8 (1.1-2.2); Bilirubin,Direct 0.2 mg/dL (0.0-0.5); Bilirubin,Indirect 0.4 mg/dL (0.0-1.2); Bilirubin,Total 0.6 mg/dL (0.2-1.2); Globulin 3.1 g/dL (2.4-3.5); Total Protein 5.5 g/dL (6.0-8.3)
[2017-02-23 18:15] LABS: ABG Base Excess 2.5 mEq/L (-2.0 to 3.0); ABG HCO3 26.3 mEQ/L (21-27); ABG Oxygen Saturation 98 % (95-98); ABG PCO2 37 mmHg (35-45); ABG PH 7.46 pH Units (7.32-7.45); ABG PO2 92 mmHg (85-104); ABG TCO2 27.4 mEq/L (20-26)
[2017-02-23 18:16] LABS: Blood Gas Liter Flow 5 L/MIN
[2017-02-23 18:17] LABS: Blood Gas FiO2 40 %
[2017-02-23 20:19] LABS: Bilirubin,Urine Negative (Negative); Blood,Urine Negative (Negative); Clarity,Urine Clear (Clear); Color,Urine Yellow (Yellow); Glucose,Urine (UA) Normal (Normal); Ketones,Urine Negative (Negative); Leukocyte Esterase,Urine Moderate (Negative); Nitrite,Urine Negative (Negative); Protein,Urine Negative (Neg-Trace); Specific Gravity,Urine > 1.030 (1.010-1.025); Urobilinogen,Urine Normal (Normal)
[2017-02-23 20:21] LABS: Bacteria,Urine None Seen per hpf (None-Few); Hyaline Casts,Urine None Seen per lpf (None-Few); Squamous Epithelial Cell,Urine Many per lpf (None-Few)
[2017-02-23] MEDS ORDERED: Naloxone 0.4 MG/ML INJ IVP PRN (21:06)
[2017-02-23] MEDS ORDERED: traMADol 50 MG TABLET PO PRN (21:08)
[2017-02-23] MEDS ORDERED: predniSONE 20 MG TABLET PO SCH (21:15)
--- NOTE | 2017-02-23 21:23 | Internal Med History&Physical ---
<Edy Wang - Last Filed: 02/23/17 23:22> Date of Encounter: 02/23/17 Time of Encounter: 21:17 Assessment and Plan (1) Acute on chronic respiratory failure with hypoxemia Current visit: Yes Status: Acute 71 F hx of stage IV adenocarcinoma presents with cc of sob O2 requirements increased from 2 L to 5 L afebrile, WBC WNL, HR<100 ABG shows pH 7.46 with P CO2 37 and bicarbonate of 26 CXR and CTA scan indicate stable right plueral effusion/ consolidation. Negative for PE lungs: diminished breath sounds, end expiratory ronchi diffuse, right lung base crackles b/l LE edema Worsening respiratory status 2nd to lung cancer, PNA Plan: solumedrol, chris duonebs, chest precussion theraphy, mucinex, symbicort, daliresp and incruse ellipta linezolid and zosyn (allergic to floroquinlonoes) if patient develops signs and symptoms of pneumonia may start antibiotics continue supplemental O2 procalcitonin regular diet (2) Diastolic CHF Current visit: Yes Status: Chronic BNP 245 Last echo September 2016 showed EF 65-70%, no segment wall motion abnormalities, mild diastolic dysfunction, normal RV size and function, severe dilated left atrium, chemical mitral valve with normal function. LE edema 1+ b/l which patient states is worsening Plan: patient reports fluid overload yet states she has barely taken in any fluids in the past week due to poor appetitie. Chemistry and ABG indicate contraction alkalosis. Will monitor strict I/O LE edema may be 2nd to albuminemia in setting of poor diet/stage IV lung cancer replace K+ continue home lasix but decrease dose to 40 daily. Qualifiers: Congestive heart failure chronicity: acute on chronic Qualified Code(s): I50.33 - Acute on chronic diastolic (congestive) heart failure (3) Adenocarcinoma of lung Current visit: Yes Status: Acute Stage IV PET shows left adrenal metastasis [facility] following. NO treatment started yet as patient was scheduled to undergo left adrenal biopsy this . [facility] on right chest, flushes with no discharge Plan: Oncology was notified and stated to hold patient's Lovenox (afib/ mitral valve replacement) for morning biopsy by IR. IR consult Regular diet, Ensure TID NPO midnight Qualifiers: Laterality: right Qualified Code(s): C34.91 - Malignant neoplasm of unspecified part of right bronchus or lung (4) DVT prophylaxis Current visit: Yes Status: Acute ON lovenox for mitral vavle replacement and afib plan: EPCD, withhold anticoagulation for morning IR biopsy (5) Goals of care, counseling/discussion Current visit: Yes Status: Acute Patient DNR-CCA-DNI would like to discuss goals of care consult to palliative care (6) H/O mitral valve replacement with mechanical valve Current visit: Yes Status: Chronic patient usually on warfarin for anticoagulation, however whas switched to lovenox as palnned for outpatient adrenal biopsy for evaluation of stage IV adenocarcinoma of lung with met to adrenal glads plan: hold Lovenox for biopsy tomorrow. Internal Medicine - H&P: HPI Chief complaint: sob Admitted From: Home Plans for Post Hospital Care: Home History of present illness: Ms. Dewitt is a 71 year old female recently diagnosed stage IV adenocarcinoma presents with chief complaint of shortness of breath. Patient states she was recently discharged on February 11 for MSSA pneumonia/postobstructive pneumonia secondary to lung cancer, COPD exacerbation. After that discharge patient states her respiratory symptoms were stable for a few days. Shortness of breath became worse in the last 5 days, requiring increased amount of oxygen from 2 L to 5 L. Patient reports chronic orange/yellow productive sputum. Reports worsening lower extremity edema bilaterally. Reports completing prednisone and Augmentin therapy after discharge. Reports that she has Acapella treatment at home which helped minimally. Denies fevers, chills, chest pain. Reports palpitations she has history of atrial fibrillation and this is chronic. Currently patient is in sinus rhythm with a heart rate of 80. Reports poor appetitie, but reviewing past records weight is stable (55-56kgs) . Past Med Surg Social Fam HX - Past Medical History Medical history: arthritis, atrial fibrillation, cancer, cardiomyopathy, CHF, COPD, fibromyalgia, hypertension, myocardial infarction, osteoporosis, RA, other Psychiatric history: no psych history - Past Surgical History Surgical History: angioplasty/stent, cholecystectomy, coronary bypass (CABG), heart valve replacement, orthopedic, other - Social History Smoking Status: Former smoker Smokeless Tobacco Status: No Alcohol use: none Drug use: none - Family History Father Living Status: Hx Family Cardiac Disorders: Yes (open heart surgery) Hx Family Respiratory Disorders: No Hx Family Cancer: Yes (Liver cancer w/ mets) Hx Family GI Disorders: No Hx Family Endocrine Disorder: No Hx Family Neuromuscular Disorders: No Hx Family Neurologic Disorders: No Hx Family HEENT Disorders: No Hx Family Autoimmune Disorders: No Mother Living Status: Hx Family Cardiac Disorders: No Hx Family Respiratory Disorders: Yes Hx Family Cancer: Yes (bone, lung) Hx Family GI Disorders: No Hx Family Endocrine Disorder: No Hx Family Neuromuscular Disorders: No Hx Family Neurologic Disorders: No Hx Family HEENT Disorders: No Hx Family Autoimmune Disorders: No Internal Medicine - H&P: Meds Albuterol Sulfate [Albuterol Inhaler] 1 - 2 puff IH Q4HR PRN 11/24/15 [History] Allopurinol [Zyloprim 100 MG] 100 mg PO DAILY 11/24/15 [History] Budesonide/Formoterol 160/4.5 [Symbicort 160/4.5] 2 puff IH BIDR 11/24/15 [ History] Calcium Carbonate [Calcium] 500 mg PO BID 11/24/15 [History] Cholecalciferol (D-3) [Vitamin D] 2,000 unit PO DAILY 11/24/15 [History] Fluticasone Propionate Nasal [Flonase] 1 spray NS DAILY 11/24/15 [History] Gabapentin [Neurontin] 200 mg PO HS 11/24/15 [History] Loratadine [Claritin] 10 mg PO DAILY 11/24/15 [History] Montelukast [Singulair] 10 mg PO DAILY 11/24/15 [History] Nitroglycerin [Nitrostat] 0.4 mg SL Q5M PRN 11/24/15 [History] Nortriptyline [Pamelor] 10 mg PO HS 11/24/15 [History] Roflumilast [Daliresp] 500 mcg PO DAILY 11/24/15 [History] Vitamin B Complex [B Complex] 1 tab PO DAILY 11/24/15 [History] Umeclidinium [place] [Incruse Ellipta] 1 puff IH DAILY 12/17/15 [History] Atorvastatin [Lipitor] 10 mg PO HS 01/01/16 [History] Albuterol Neb [Proventil Neb] 2.5 mg IH Q4HR PRN 08/25/16 [History] Bifidobacterium Infantis [Align] 4 mg PO DAILY 08/25/16 [History] Oxygen 2 l IN CONT #1 each 08/26/16 [Rx] Tramadol HCl 50 - 100 mg PO QID PRN 09/13/16 [History] Esomeprazole Magnesium [Nexium] 40 mg PO DAILY #30 capsule. 10/03/16 [Rx] Furosemide [Lasix] 40 mg PO BID #60 tablet 10/03/16 [Rx] Warfarin [Coumadin] 5 mg PO SUMOWEFRSA 01/18/17 [History] Warfarin [Coumadin] 7.5 mg PO TUTH 01/18/17 [History] Potassium Chloride [K-Tab ER] 20 meq PO DAILY 02/01/17 [History] Sotalol [Betapace] 80 mg PO Q12H tab 02/11/17 [Rx] Docusate [Colace] 300 mg PO BID 02/19/17 [History] Diltiazem CD (24hr) [Cardizem CD] 180 mg PO DAILY 02/23/17 [History] Enoxaparin [Lovenox] 60 mg SQ Q12HR 02/23/17 [History] 3 Allergy/AdvReac Type Severity Reaction Status Date / Time ceftriaxone Allergy Hives Verified 02/18/17 16:28 ciprofloxacin Allergy Hives Verified 02/18/17 16:28 levofloxacin Allergy Hives Verified 02/18/17 16:28 vancomycin Allergy Rash Verified 02/18/17 16:28 All Systems PM: A 10-system review of systems was performed and is negative for pertinent findings except as documented above in the HPI. Review of systems: Constitutional: Denies fever, chills HEENT: Denies headache, vision changes, neck pain, sore throat, rhinorrhea Heart: Denies chest pain. Reports palpitations Lungs: Reports worsening shortness of breath, yellow/orange productive sputum. Denies hemoptysis Abdomen: Denies abdominal pain nausea vomiting diarrhea, melena, hematemesis, hematochezia Back: Reports chronic low back pain Kidney: Denies dysuria, hematuria Extremities: Reports worsening lower extremity swelling, denies pain Skin: Denies bleeding, rash, open sores, wounds Neuro: Denies numbness, and tingling - Constitutional Vitals: Temp Pulse Resp BP Pulse Ox 98.2 F 78 22 101/73 97 02/23/17 21:07 02/23/17 21:07 02/23/17 21:07 02/23/17 21:07 02/23/17 21:07 - Other Additional findings: General: Pleasant without distress elderly female. HEENT: Head atraumatic, normocephalic, EOMI, PERRLA, neck nontender to palpation , Moist Mucous Membranes, Heart: Regular rate and rhythm with no murmur Chest: mediport on right flushes with no discharge Lungs: Diffuse expiratory rhonchi with crackles in the right lower base and diffuse diminished lung sounds. Abdomen: Soft nontender, nondistended positive bowel sounds Skin: Absent bruising, rash, open sores or wounds Extremities: 1+ pitting edema bilaterally Neuro: Cranial nerves II through XII intact, sensation equal bilaterally, strength upper and lower extremity 5/5, alert oriented 3 Vascular: Pedal and radial pulses 2 out of 4 Internal Med - H&P Results - Labs CBC & Chem 7: 02/23/17 16:24 02/23/17 16:24 <Otf Evans - Last Filed: 02/23/17 23:31> Date of Encounter: 02/23/17 Internal Medicine - H&P: HPI History of present illness: Ms. Dewitt is a 71 year old female All Systems PM: A 10-system review of systems was performed and is negative for pertinent findings except as documented above in the HPI. - Constitutional Vitals: Temp Pulse Resp BP Pulse Ox 98.2 F 78 18 101/73 96 02/23/17 21:07 02/23/17 21:07 02/23/17 22:41 02/23/17 21:07 02/23/17 22:41 Internal Med - H&P Results - Labs CBC & Chem 7: 02/23/17 16:24 02/23/17 16:24 - Attending Attestation I examined this patient and my medical decision-making was reviewed with the Resident Physician, Dr. Edy Perera. I agree with the documented findings, disposition and treatment plan as described except to the extent set forth below. I have independently obtained history and examined the patient and my findings are summarized below: The patient is in no acute distress, heart is regular S1-S2, lung auscultation reveals bilateral rhonchi Assessment: Acute hypoxic respiratory failure secondary to lung malignancy, postobstructive pneumonia and COPD. Plan: IV antibiotics Zosyn and later nasal and, IV Solu-Medrol for COPD, supplemental oxygen. Hold warfarin for planned biopsy. Check daily INR. Prognosis is poor. Consult palliative care.
[2017-02-23] MEDS ORDERED: Potassium Chloride Elixir 20 MEQ/15 ML UDC PO ONE (22:01)
[2017-02-23] MEDS: Budesonide/Formoterol 160/4.5 MDI IH SCH (22:39)
[2017-02-23] MEDS: Ipratropium/Albuterol Neb 3 ML IH SCH (22:39)
[2017-02-23] MEDS: Albuterol 2.5 MG/3 ML NEBULIZER IH SCH (23:33)
[2017-02-24] MEDS: *HR* Enoxaparin 60 MG/0.6 ML SYRINGE SQ SCH (00:02)
[2017-02-24] MEDS: Piperacillin/Tazobactam 3.375 GM in D5% in Water (Mini-Bag+) 100 ML IVPB SCH ×4 (00:23→22:54)
[2017-02-24] MEDS: Albuterol 2.5 MG/3 ML NEBULIZER IH SCH ×3 (04:11→10:51)
[2017-02-24] MEDS: Ipratropium/Albuterol Neb 3 ML IH SCH ×4 (05:10→22:27)
[2017-02-24] MEDS: MethylPREDNISolone 40 MG/ML VIAL IVP SCH ×2 (05:54→18:25)
[2017-02-24 06:03] LABS: Basophils % 0.2 %; Hematocrit 32.1 % (35.3-44.9); Hemoglobin 10.1 g/dL (11.5-15.4); Immature Granulocytes % 0.9 % (0-4); Lymphocytes # 0.7 K/mcL (0.6-4.6); Lymphocytes % 10.5 %; Mean Corpuscular HGB Conc 31.5 g/dL (31.6-35.5); Mean Corpuscular Hemoglobin 25.6 pg (28.0-33.3); Mean Corpuscular Volume 81.3 fL (83.0-100.0); Mean Platelet Volume 10.6 fL (9.4-12.4); Monocytes # 0.4 K/mcL (0.0-1.3); Monocytes % 6.4 %; Neutrophils # 5.3 K/mcL (1.6-8.9); Platelet Count 121 K/mcL (140-400); Red Blood Count 3.95 M/mcL (3.82-4.97)
[2017-02-24 06:09] LABS: INR 1.1; Prothrombin Time 12.2 Seconds (9.4-12.1)
[2017-02-24 06:13] LABS: BUN/Creatinine Ratio 32 (6-26); Blood Urea Nitrogen 23 mg/dL (7-20); Calcium 8.6 mg/dL (8.6-10.8); Carbon Dioxide 27 mEq/L (19-29); Chloride 108 mEq/L (98-109); Glucose 99 mg/dL (70-99); Magnesium 1.7 mg/dL (1.6-2.6); Osmolality,Calculated 296 (280-300); Sodium 141 mEq/L (136-145); eGFR For African Americans > 60 (> 60); eGFR For Non-African Americans > 60 (> 60)
[2017-02-24 06:18] LABS: Potassium 4.3 mEq/L (3.5-4.5)
--- NOTE | 2017-02-24 08:54 | Palliative - Consult Note ---
Date of Encounter: 02/24/17 Time of Encounter: 07:30 - Assessment and Plan (1) Acute exacerbation of chronic obstructive pulmonary disease (COPD) Current Visit: Yes Status: Acute Assessment and plan: At this point her lungs are probably her biggest problem, is being managed by the hospitalist team with oxygen bronchodilators and steroids. (2) Adenocarcinoma of lung Current Visit: Yes Status: Acute Assessment and plan: New diagnosis, the workup is ongoing. PET scan does reveal widely metastatic lung cancer. Patient understands that the treatment for this probably be palliative in nature but she is awaiting hearing from the oncology group. I did tell her that there was some possibility that some of the newer treatments may offer and even better prognosis, however overall health status we will have to improve to take advantage of them. She does understand this as does her family is interested in pursuing it as long as it is offered to her. Qualifiers: Laterality: right Qualified Code(s): C34.91 - Malignant neoplasm of unspecified part of right bronchus or lung (3) Goals of care, counseling/discussion Current Visit: Yes Status: Acute Assessment and plan: Patient and family have already decided on DNR CCA DNI status. And the patient' s problems with her lungs I think this is very reasonable. Also of care: Interested in knowing what is going on a type of cancer that she has, she is interested in any treatment for that that may be available. Understand that this will probably be palliative in nature she would like to try to slow down at that is possible. Course, if a curative treatment is available she will certainly avail herself of that. (4) HCAP (healthcare-associated pneumonia) Current Visit: No Status: Acute Assessment and plan: Treatment is ongoing, and per hospitalist team. (5) Constipation Current Visit: No Status: Chronic Assessment and plan: Start patient on senna and try to make bowel movements a little bit more frequent than once every 3-4 days. Qualifiers: Constipation type: slow transit constipation Qualified Code(s): K59.01 - Slow transit constipation Palliative-CN HPI - Data of Consult Patient: known to practice within the last 3 years Requesting Physician: Crista Rea MD Primary Care Provider: Christoph Hughes - Consult Narrative Palliative Care/Comfort Measures: Palliative care History of present illness: Ms. Dewitt is a 71 year old female With a history of severe COPD and multiple hospitalizations over the last year for her COPD. She states it has been a very long time since she has been able to walk 2 blocks without requiring rest and on oxygen at home as well. She was very recently diagnosed with lung cancer as well. There is a distinct possibility the lung cancer may be disposing her to pneumonia. She was recently treated for bacillin sensitive staph aureus area and she comes back in today with increasing shortness of breath and cough productive of a yellow sputum back pain which she rates it may be 4-5/10 but is easily controlled think seems to provoke relieve it. She has undergone PET scan which does show early metastatic lung cancer. She is due for a biopsy today, and then after that they will decide what kind of chemotherapy can be offered. Patient is also noticed increasing of her legs. And palpitations which she has a chronic history of atrial fibrillation. 5 care was consulted regarding CODE STATUS which has already been decided to be DNR CCA DNI, goals of care with her. They see the assessment and plan. She also reports chronic constipation no bowel movements usually for about 2-3 days. But no nausea or vomiting. Her appetite is down. There has been no weight loss that she is aware of. CC: Crista Rea MD sob Past Med Surg Social Fam HX - Past Medical History Medical history: arthritis, atrial fibrillation, cancer, cardiomyopathy, CHF, COPD, fibromyalgia, hypertension, myocardial infarction, osteoporosis, RA, other Psychiatric history: no psych history - Past Surgical History Surgical History: angioplasty/stent, cholecystectomy, coronary bypass (CABG), heart valve replacement, orthopedic, other - Social History Smoking Status: Former smoker Smokeless Tobacco Status: No Alcohol use: none Drug use: none - Family History Father Living Status: Hx Family Cardiac Disorders: Yes (open heart surgery) Hx Family Respiratory Disorders: No Hx Family Cancer: Yes (Liver cancer w/ mets) Hx Family GI Disorders: No Hx Family Endocrine Disorder: No Hx Family Neuromuscular Disorders: No Hx Family Neurologic Disorders: No Hx Family HEENT Disorders: No Hx Family Autoimmune Disorders: No Mother Living Status: Hx Family Cardiac Disorders: No Hx Family Respiratory Disorders: Yes Hx Family Cancer: Yes (bone, lung) Hx Family GI Disorders: No Hx Family Endocrine Disorder: No Hx Family Neuromuscular Disorders: No Hx Family Neurologic Disorders: No Hx Family HEENT Disorders: No Hx Family Autoimmune Disorders: No Medications and Allergies Albuterol Sulfate [Albuterol Inhaler] 1 - 2 puff IH Q4HR PRN 11/24/15 [History] Allopurinol [Zyloprim 100 MG] 100 mg PO DAILY 11/24/15 [History] Budesonide/Formoterol 160/4.5 [Symbicort 160/4.5] 2 puff IH BIDR 11/24/15 [ History] Calcium Carbonate [Calcium] 500 mg PO BID 11/24/15 [History] Cholecalciferol (D-3) [Vitamin D] 2,000 unit PO DAILY 11/24/15 [History] Fluticasone Propionate Nasal [Flonase] 1 spray NS DAILY 11/24/15 [History] Gabapentin [Neurontin] 200 mg PO HS 11/24/15 [History] Loratadine [Claritin] 10 mg PO DAILY 11/24/15 [History] Montelukast [Singulair] 10 mg PO DAILY 11/24/15 [History] Nitroglycerin [Nitrostat] 0.4 mg SL Q5M PRN 11/24/15 [History] Nortriptyline [Pamelor] 10 mg PO HS 11/24/15 [History] Roflumilast [Daliresp] 500 mcg PO DAILY 11/24/15 [History] Vitamin B Complex [B Complex] 1 tab PO DAILY 11/24/15 [History] Umeclidinium [place] [Incruse Ellipta] 1 puff IH DAILY 12/17/15 [History] Atorvastatin [Lipitor] 10 mg PO HS 01/01/16 [History] Albuterol Neb [Proventil Neb] 2.5 mg IH Q4HR PRN 08/25/16 [History] Bifidobacterium Infantis [Align] 4 mg PO DAILY 08/25/16 [History] Oxygen 2 l IN CONT #1 each 08/26/16 [Rx] Tramadol HCl 50 - 100 mg PO QID PRN 09/13/16 [History] Esomeprazole Magnesium [Nexium] 40 mg PO DAILY #30 capsule. 10/03/16 [Rx] Furosemide [Lasix] 40 mg PO BID #60 tablet 10/03/16 [Rx] Warfarin [Coumadin] 5 mg PO SUMOWEFRSA 01/18/17 [History] Warfarin [Coumadin] 7.5 mg PO TUTH 01/18/17 [History] Potassium Chloride [K-Tab ER] 20 meq PO DAILY 02/01/17 [History] Sotalol [Betapace] 80 mg PO Q12H tab 02/11/17 [Rx] Docusate [Colace] 300 mg PO BID 02/19/17 [History] Diltiazem CD (24hr) [Cardizem CD] 180 mg PO DAILY 02/23/17 [History] Enoxaparin [Lovenox] 60 mg SQ Q12HR 02/23/17 [History] 3 Allergy/AdvReac Type Severity Reaction Status Date / Time ceftriaxone Allergy Hives Verified 02/18/17 16:28 ciprofloxacin Allergy Hives Verified 02/18/17 16:28 levofloxacin Allergy Hives Verified 02/18/17 16:28 vancomycin Allergy Rash Verified 02/18/17 16:28 - Constitutional Constitutional ROS PAL: decreased appetite, anorexia, no weight loss - EENT Eyes: no discharge, no loss of vision, no pain Ears: no ear discharge, no ear pain Ears, nose, mouth, throat: no facial pain, no hoarseness, no lip swelling, no mouth pain - Cardiovascular Cardiovascular ROS: dyspnea on exertion, irregular heart rhythm, leg edema, no chest pain, no chest pain at rest, no chest pain with activity - Respiratory Respiratory: cough, dyspnea, dyspnea on exertion, excessive phlegm production, change in phlegm color, no hemoptysis, no pain on inspiration - Gastrointestinal Gastrointestinal: constipation, no diarrhea, no nausea, no vomiting - Genitourinary Palliative ROS female: no urinary frequency, no urinary hesitancy, no urinary incontinence, no urinary urgency - Musculoskeletal Musculoskeletal ROS IM: arthralgias, back pain - Integumentary ROS Integumentary: no skin ulcer, no sores - Neurological Neurological ROS: no confusion, no convulsions, no frequent falls, no headache(s ), no lack of coordination - Psychiatric Psychiatric general PM: no anxiety, no depression - Endocrine Additional comments: No diabetes or thyroid problems. Palliative Care-Exam - Constitutional Vitals: Temp Pulse Resp BP Pulse Ox 97.1 F L 72 16 138/83 99 02/24/17 07:57 02/24/17 07:57 02/24/17 07:57 02/24/17 07:57 02/24/17 07:57 General appearance: Present: no acute distress - Head Head Exam: Present: atraumatic, normal inspection - Eye Eye exam: Present: EOMI, normal appearance - ENT ENT exam: Present: mucous membranes moist, normal exam - Neck Neck exam: Present: normal inspection - Respiratory Respiratory exam: Present: decreased breath sounds, rhonchi - Cardiovascular Cardiovascular exam: Present: irregular rhythm - GI/Abdominal Exam GI/Abdominal exam: Present: normal bowel sounds, soft. Absent: tenderness - Extremities Exam Extremities exam: Present: pedal edema. Absent: normal inspection, tenderness - Neurological Exam Neurological exam: Present: alert, oriented X3 - Psychiatric Psychiatric exam: Present: normal affect, normal mood. Absent: agitated, anxious, depressed, flat affect, homicidal ideation, suicidal ideation - Skin Skin exam: Present: dry, warm Internal Medicine - CN: Reslt - Labs CBC & Chem 7: 02/24/17 05:30 02/24/17 05:30 Labs: Short CBC 02/24/17 Range/Units 05:30 WBC 6.5 (4.3-11.1) K/mcL Hgb 10.1 L (11.5-15.4) g/dL Hct 32.1 L (35.3-44.9) % Plt Count 121 L (140-400) K/mcL Neutrophils # 5.3 (1.6-8.9) K/mcL BMP 02/24/17 05:30 Sodium 141 Potassium 4.3 D Chloride 108 Carbon Dioxide 27 BUN 23 H Creatinine 0.72 Glucose 99 Calcium 8.6 - ABG Interpretation ABG results: ABG ABG pH 7.46 pH Units (7.32-7.45) H 02/23/17 18:06 ABG pCO2 37 mmHg (35-45) 02/23/17 18:06 ABG pO2 92 mmHg (85-104) 02/23/17 18:06 ABG O2 Saturation 98 % (95-98) 02/23/17 18:06 PT/INR, D-dimer PT 12.2 Seconds (9.4-12.1) H 02/24/17 05:30 D-Dimer 1718 ng/mLFEU (0-500) H 02/23/17 16:24 Consult Discharge Plan - Plan Referrals: Christoph Hughes DO [Primary Care Provider] - Palliative Quality Palliative Quality: Screen for Code Status: Yes, Screen for Goals of Care: Yes, Screen for Pain: Yes, If Pain Regimen Started, Initiate Bowel Regimen: Yes, Screen for Nausea/Vomitting: Yes
[2017-02-24] MEDS ORDERED: Furosemide 40 MG TABLET PO SCH (09:00)
[2017-02-24] MEDS ORDERED: *HR* Midazolam HCl 2 MG/2 ML VIAL IVP PRN (09:20)
[2017-02-24] MEDS ORDERED: *HR* FentaNYL (PF) 100 MCG/2 ML VIAL IVP PRN (09:20)
--- NOTE | 2017-02-24 09:22 | Pre-Sedation Evaluation ---
Pre-sedation evaluation - Pre-sedation checklist Date of procedure: 02/24/17 Procedure: Biopsy Recent Vitals: Last Vital Signs Temp 97.1 F L 02/24/17 07:57 Pulse 72 02/24/17 07:57 Resp 16 02/24/17 07:57 BP 138/83 02/24/17 07:57 Pulse Ox 99 02/24/17 07:57 H&P (including ROS) documented in medical record: Yes Previous reaction to sedatives/anesthetics: Yes; explain in comment Dietary Status: NPO after Midnight Airway Assessment: Patient can open mouth completely, TMJ function normal, Micrognathia (under-bite, receding chin) absent, Neck with adequate range of motion Dentition: dentures removed Possible difficult airway: No ASA Classification *see protocol: CLASS II-Mild systemic disease Plan of Care: Pt appropriate candidate for procedure/moderate/conscious sedation , Risks/benefits of procedure/sedation discussed w/ patient/family, If not NPO; Risk of intake outweiged by necessity to perform procedure
[2017-02-24] MEDS ORDERED: 0.9 % Sodium Chloride 500 ML ONE (09:31)
--- NOTE | 2017-02-24 10:04 | IR Procedure Note ---
Date of procedure: 02/24/17 Consent Obtained: Written consent Timeout: Correct patient and procedure verified, Correct site verified, Time out performed, Skin prep completed Indications: left adrenal mass Procedure Performed: adrenal biopsy Site/Technique: left Results/Findings: 4 18G cores, positive Estimated blood loss (cc): 2 Complications: None; Tolerated procedure well Post Procedure Treatment Plan: dc to floor
[2017-02-24] MEDS: Sennosides/Docusate Sodium TABLET PO SCH ×2 (10:30→20:38)
[2017-02-24] MEDS: Furosemide 40 MG TABLET PO SCH (10:30)
[2017-02-24] MEDS: (Roflumilast [Daliresp] 500 MCG) PO SCH (10:31)
[2017-02-24] MEDS: (Incruse Ellipta] 1 PUFF) IH SCH (10:31)
[2017-02-24] MEDS: (Bifidobacterium Infantis [Align] 4 MG) PO SCH (10:31)
[2017-02-24] MEDS: Budesonide/Formoterol 160/4.5 MDI IH SCH ×2 (10:51→22:27)
[2017-02-24] MEDS ORDERED: Acetaminophen 325 MG TABLET PO PRN (14:32)
--- NOTE | 2017-02-24 14:50 | Electrocardiograph Report ---
[address] [place], [place] [address] Test Date: 2017-02-23 Pat Name: Yasmeen Dewitt Department: 102 Room: 2NE29 Gender: F Optician: Shaylee : 1945 Requested By: Yong Saenz Order Number: [id number] Reading MD: Greg Cadet MD Measurements Intervals [place] Rate: 85 P: 35 TX: 154 QRS: 38 QRSD: 83 T: 62 QT: 394 QTc: 437 Interpretive Statements SINUS RHYTHM ANTERIOR ISCHEMIA Electronically Signed On 02-24-2017 14:48:31 EDT by Greg Cadet MD
--- NOTE | 2017-02-24 16:35 | Oncology Inp Consult Note ---
Date of Encounter: 02/25/17 Time of Encounter: 12:00 Assessment and Plan (1) Adenocarcinoma of lung Status: Acute Assessment and plan: Metastatic adenocarcinoma-s/p bx 02/05/17 bronchoscopy and a subcarinal lymph node biopsy shows a TTF-1 positive, and one positive metastatic carcinoma suggestive of lung primary. PET skeletal mets, lt lung, left adrenal uptake stage IV disease s/p adrenal bx for sequencing studies/PDL1 status, completed, await results which could take a wk or longer Rx to begin with immunotherapy if PDL1 >50% and targetable mutations neg. Otherwise plan chemotherapy Rx is palliative and patient and family wanted to pusue after knowing the options DEnosumab for bone mets. She takes toradol and is not in need of narcotics Hx MRSA pneumonia s/p abx symptoms improved COPD on home O2, requiring 6lt NC today Hospitalized with COPD exacerbation/SOB/CHF. Ct no changes or progression per report Hx rheumatoid arthritis currently not taking any immunosuppressive agents She also has a Mediport. Plan as above was discussed with the patient and her daughters in detail Qualifiers: Laterality: right Qualified Code(s): C34.91 - Malignant neoplasm of unspecified part of right bronchus or lung - Data of Consult Requesting Physician: Crista Rea MD Primary Care Provider: Christoph Hughes - Consult Narrative Reason for consult: lung cancer History of present illness: Ms. Dewitt is a 71 year old female with multiple medical history, significant for emphysema, COPD, atrial fibrillation, history of congestive heart failure, myocardial infarction hypertension, rheumatoid arthritis with deformity, cardiomyopathy status post cardiac valve replacement, history of adenocarcinoma of the lungs status post bronchoscopy and subcarinal lymph node biopsy from 10/2016--metastatic carcinoma TTF1 positive. She also had MRSA pneumonia in sputum culture, she was hospitalized with shortness of breath which is improved. She is baseline at home oxygen, hospitalized with SOB. Patient had a CT imaging without contrast 02/02/2017 that showed mediastinal and right hilar adenopathy, masslike consolidation in the right lung, right hilum small right pleural effusion and consolidation right lower lobe compatible with postobstructive pneumonia/aspiration. PET imaging 02/18 showed FDG activity rt perihilar mass 5X3.4cm, SUV max 10.8, RLL uptake (pneumonia), FRANCIS nodule, rt paratracheal, subcarinal adenopathy, left adrenal uptake and numerous skeletal mets CT imaging 02/18--no significant changes or PE. She has had adrenal bx for more studies Past Med Surg Social Fam HX - Past Medical History Medical history: arthritis, atrial fibrillation, cancer, cardiomyopathy, CHF, COPD, fibromyalgia, hypertension, myocardial infarction, osteoporosis, RA, other Psychiatric history: no psych history - Past Surgical History Surgical History: angioplasty/stent, cholecystectomy, coronary bypass (CABG), heart valve replacement, orthopedic, other - Social History Smoking Status: Former smoker Smokeless Tobacco Status: No Alcohol use: none Drug use: none - Family History Father Living Status: Hx Family Cardiac Disorders: Yes (open heart surgery) Hx Family Respiratory Disorders: No Hx Family Cancer: Yes (Liver cancer w/ mets) Hx Family GI Disorders: No Hx Family Endocrine Disorder: No Hx Family Neuromuscular Disorders: No Hx Family Neurologic Disorders: No Hx Family HEENT Disorders: No Hx Family Autoimmune Disorders: No Mother Living Status: Hx Family Cardiac Disorders: No Hx Family Respiratory Disorders: Yes Hx Family Cancer: Yes (bone, lung) Hx Family GI Disorders: No Hx Family Endocrine Disorder: No Hx Family Neuromuscular Disorders: No Hx Family Neurologic Disorders: No Hx Family HEENT Disorders: No Hx Family Autoimmune Disorders: No Medications and Allergies Albuterol Sulfate [Albuterol Inhaler] 1 - 2 puff IH Q4HR PRN 11/24/15 [History] Allopurinol [Zyloprim 100 MG] 100 mg PO DAILY 11/24/15 [History] Budesonide/Formoterol 160/4.5 [Symbicort 160/4.5] 2 puff IH BIDR 11/24/15 [ History] Calcium Carbonate [Calcium] 500 mg PO BID 11/24/15 [History] Cholecalciferol (D-3) [Vitamin D] 2,000 unit PO DAILY 11/24/15 [History] Fluticasone Propionate Nasal [Flonase] 1 spray NS DAILY 11/24/15 [History] Gabapentin [Neurontin] 200 mg PO HS 11/24/15 [History] Loratadine [Claritin] 10 mg PO DAILY 11/24/15 [History] Montelukast [Singulair] 10 mg PO DAILY 11/24/15 [History] Nitroglycerin [Nitrostat] 0.4 mg SL Q5M PRN 11/24/15 [History] Nortriptyline [Pamelor] 10 mg PO HS 11/24/15 [History] Roflumilast [Daliresp] 500 mcg PO DAILY 11/24/15 [History] Vitamin B Complex [B Complex] 1 tab PO DAILY 11/24/15 [History] Umeclidinium Maud [Incruse Ellipta] 1 puff IH DAILY 12/17/15 [History] Atorvastatin [Lipitor] 10 mg PO HS 01/01/16 [History] Albuterol Neb [Proventil Neb] 2.5 mg IH Q4HR PRN 08/25/16 [History] Bifidobacterium Infantis [Align] 4 mg PO DAILY 08/25/16 [History] Oxygen 2 l IN CONT #1 each 08/26/16 [Rx] Tramadol HCl 50 - 100 mg PO QID PRN 09/13/16 [History] Esomeprazole Magnesium [Nexium] 40 mg PO DAILY #30 capsule. 10/03/16 [Rx] Furosemide [Lasix] 40 mg PO BID #60 tablet 10/03/16 [Rx] Warfarin [Coumadin] 5 mg PO SUMOWEFRSA 01/18/17 [History] Warfarin [Coumadin] 7.5 mg PO TUTH 01/18/17 [History] Potassium Chloride [K-Tab ER] 20 meq PO DAILY 02/01/17 [History] Sotalol [Betapace] 80 mg PO Q12H tab 02/11/17 [Rx] Docusate [Colace] 300 mg PO BID 02/19/17 [History] Diltiazem CD (24hr) [Cardizem CD] 180 mg PO DAILY 02/23/17 [History] Enoxaparin [Lovenox] 60 mg SQ Q12HR 02/23/17 [History] 3 Allergy/AdvReac Type Severity Reaction Status Date / Time ceftriaxone Allergy Hives Verified 02/18/17 16:28 ciprofloxacin Allergy Hives Verified 02/18/17 16:28 levofloxacin Allergy Hives Verified 02/18/17 16:28 vancomycin Allergy Rash Verified 02/18/17 16:28 Respiratory: Present: cough, dyspnea Oncology - Exam - Constitutional Vitals: Temp Pulse Resp BP Pulse Ox 98 F 72 16 114/73 98 02/24/17 15:20 02/24/17 15:20 02/24/17 15:48 02/24/17 15:20 02/24/17 15:48 General appearance: mild distress - Head Head exam: Present: atraumatic - Eye Eye exam: Present: sclera anicteric - ENT ENT exam: Present: mucous membranes moist - Neck Neck exam: Present: full ROM, normal inspection - Respiratory Respiratory exam: Present: CTAB - Cardiovascular Cardiovascular exam: Present: +S1, +S2 - GI/Abdominal GI/Abdominal exam: Present: normal bowel sounds, soft - Extremities Exam Extremities exam: Present: pedal edema - Neurological Exam Neurological exam: Present: alert, CN II-XII intact, oriented X3 - Psychiatric Psychiatric exam: Present: normal mood - Skin Skin exam: Present: normal color Oncology - Results Labs: Short CBC 02/24/17 Range/Units 05:30 WBC 6.5 (4.3-11.1) K/mcL Hgb 10.1 L (11.5-15.4) g/dL Hct 32.1 L (35.3-44.9) % Plt Count 121 L (140-400) K/mcL Neutrophils # 5.3 (1.6-8.9) K/mcL BMP 02/24/17 05:30 Sodium 141 Potassium 4.3 D Chloride 108 Carbon Dioxide 27 BUN 23 H Creatinine 0.72 Glucose [address] CAP reviewed Consult Discharge Plan - Plan Referrals: Christoph Hughes DO [Primary Care Provider] -
[2017-02-24] MEDS ORDERED: Cyanocobalamin (B-12) 1,000 MCG/ML VIAL SQ ONE (17:27)
--- NOTE | 2017-02-24 19:00 | Internal Med Progress Note ---
Date of Encounter: 02/24/17 Time of Encounter: 18:57 - Assessment and plan (1) COPD exacerbation Current Visit: Yes Status: Acute (2) Adenocarcinoma of lung Current Visit: Yes Status: Acute Qualifiers: Laterality: right Qualified Code(s): C34.91 - Malignant neoplasm of unspecified part of right bronchus or lung (3) Pleural effusion Current Visit: Yes Status: Acute (4) Diastolic CHF Current Visit: Yes Status: Chronic Qualifiers: Congestive heart failure chronicity: acute on chronic Qualified Code(s): I50.33 - Acute on chronic diastolic (congestive) heart failure (5) H/O mitral valve replacement with mechanical valve Current Visit: Yes Status: Chronic (6) CKD (chronic kidney disease) Current Visit: Yes Status: Acute Qualifiers: Chronic kidney disease stage: stage 3 (moderate) Qualified Code(s): N18.3 - Chronic kidney disease, stage 3 (moderate) (7) Hypertension Current Visit: Yes Status: Chronic Qualifiers: Hypertension type: essential hypertension Qualified Code(s): I10 - Essential (primary) hypertension (8) KYLIE (obstructive sleep apnea) Current Visit: Yes Status: Chronic (9) DVT prophylaxis Current Visit: Yes Status: Acute (10) Goals of care, counseling/discussion Current Visit: Yes Status: Acute - Subjective Interval history: Mrs. Dennis is a 71-year-old female very well-known to me from previous admission. She has returned with increased shortness of breath and her oxygen demand increased from 3 L to 5 L. 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 Left-sided renal shows a mass which was biopsied today. Oncology is offering her palliative treatment. Admitting hospitalist has a started patient on nebulizer treatments. I looked at her chest x-ray which is not too different from the chest x-ray 2 weeks ago when I saw her last time. It has shows right-sided consolidation with some effusion and some pulmonary edema. I do not think she has accumulated too much fluid competitively. We discussed the possibility of thoracentesis however it appears that her lungs x-ray has not changed a lot and probably her symptomatology is more due to underlying lung cancer. Following is my previous note from last admission which outlined all her medical conditions Previous note: Mrs. Chris Dewitt s a 71-year-old female admitted founcontrolled atrial fibrillation. Previously she was tried on beta Blockers and amiodarone. Cardiologyconsulted who have restarted her on sotalol Patient is in sinus rhythm. She has prosthetic mitral valve A. fib and she is on Coumadin with target INR 2.5-3.5. However on admission her INR was 5 therefore Coumadin was put on hold. patient was noted to have right sided consolidation and lymphadenopathy and previous BAL showed atypical cells. Since she planned to have bronchoscopy therefore Coumadin is on hold and per cardiology she will be bridgewith IV heparinin the meantime. Pulmonology was consulted. Apparently she was scheduled to get bronchoscopy as outpatient According o cardiologypractitioner she had ablack tarry stool this morning. Her hemoglobin is only modestly dropped from admission from 13-11 and seems reasonably stable. GI is consulted as this would be a high time to do while she will be off Coumadin. She will be on PPI. she has left-sided consolidation with effusioni consistent with pneumonia. Previous BAL showed Stenotrophomonas maltophilia. Infectious disease is on case. 02/08 #1 admitted for uncontrolled A. fib and now very well controlled with sotalol. She has a prosthetic mitral valve and therefore target INR is between 2.5 and 3.5 on Coumadin which is restarted. Bridging lovenox. Pharmacy is managing Coumadin dosing #2 recurrent pneumonia with Stenotrophomonas maltophilia historically but NOW sputum cultures have shown MRSA. On recent CT chest bilateral infiltrates with effusion of which left infiltrate has been present for a while. Currently on Augmentin SPUTUM CULTURE SHOWED MRSA THEREFORE VANCOMYCIN ADDED yesterday but nursing did not start it as patient has hx of turning red on Vanc??? , I have switch him to Doxycycline. Renal functions are satisfactory and will be monitored as well as CBC. Patient has failed multiple antibiotic treatment in the past. Infectious disease on the case and will decide about MRSA coverage #3 COPD. Also has COPD for which she gets nebulizer treatments and seems to have responded well as reflected by the ABG drawn previously. She will be okay with 1-2 L oxygen only. #4 Concern for malignancy raised from infectious disease especially because she has confluent right hilar lymphadenopathy and also bilateral to basal consolidation which could be pneumonia versus malignancy especially tender on the left side. Dr. Matias did bronch/biopsy and results are pending. #5 positive Hemoccult of stool but hemoglobin is quite stable and actually improving. Dr. Chauhan did EGD which showed prepyloric gastritis. Biopsy pending. On protonix. #5 her CHF COPD CKD. Patient is a full soft. She has noted increased and pedal edema. Lungs are still clear. I will resume her Lasix now. she will be on Coumadin and Lovenox for bridging as she has prosthetic mitral valve and will certainly need bridging. Dr Cohen asked to keep her until biopsy results. Patient will use gentle biopsy results are available upon request of pulmonology. Today I heard a few rhonchi bilaterally. Did give an extra dose of Lasix yesterday and this morning she is -1600 but as a consequence creatinine has also gone up. We have restarted her Lasix 40 by mouth twice a day which she can use at home and will continue to monitor her creatinine. I will switch her from IV Solu-Medrol to prednisone 40 twice a day and that does need to be tapered down very slowly. - Constitutional Vitals: Temp Pulse Resp BP Pulse Ox 98 F 72 16 114/73 98 02/24/17 15:20 02/24/17 15:20 02/24/17 15:48 02/24/17 15:20 02/24/17 15:48 - Head Head exam: Present: atraumatic, normocephalic - Eye Eye exam: Present: PERRL, conjuntiva pink, sclera anicteric Pupils: Present: PERRL - Neck Neck exam general surgery: Present: supple, trachea midline. Absent: lymphadenopathy - Respiratory Respiratory exam: Present: CTAB. Absent: accessory muscle use, rales, rhonchi, wheezes Additional comments: Breath sounds are shallow on the right without any significant wheezing or rales - Cardiovascular Cardiovascular exam: Present: RRR, +S1, +S2. Absent: diastolic murmur, gallop, rubs, systolic murmur - GI/Abdominal GI/Abdominal exam: Present: normal bowel sounds, soft, no peritoneal signs. Absent: distended, tenderness - Extremities Exam Extremities exam: Present: warm, radial pulses palpable and symmetrical. Absent : calf tenderness, cyanotic, pedal edema - Neurological Exam Neurological exam: Present: CN II-XII intact, oriented X3, no focal deficits. Absent: pronater drift, facial droop, speech deficit - Skin Skin exam: Present: dry, intact Internal Medicine: Result - Labs CBC & Chem 7: 02/24/17 05:30 02/24/17 05:30 Labs: Short CBC 02/24/17 Range/Units 05:30 WBC 6.5 (4.3-11.1) K/mcL Hgb 10.1 L (11.5-15.4) g/dL Hct 32.1 L (35.3-44.9) % Plt Count 121 L (140-400) K/mcL Neutrophils # 5.3 (1.6-8.9) K/mcL BMP 02/24/17 05:30 Sodium 141 Potassium 4.3 D Chloride 108 Carbon Dioxide 27 BUN 23 H Creatinine 0.72 Glucose 99 Calcium 8.6 - ABG Interpretation ABG results: ABG ABG pH 7.46 pH Units (7.32-7.45) H 02/23/17 18:06 ABG pCO2 37 mmHg (35-45) 02/23/17 18:06 ABG pO2 92 mmHg (85-104) 02/23/17 18:06 ABG O2 Saturation 98 % (95-98) 02/23/17 18:06 PT/INR, D-dimer PT 12.2 Seconds (9.4-12.1) H 02/24/17 05:30 D-Dimer 1718 ng/mLFEU (0-500) H 02/23/17 16:24 - Impressions Impressions Biopsy CT 02/24/17 00:00 IMPRESSION: Successful CT guided core biopsy of the left adrenal mass. D/ / 02/24/2017 14:47:19 Kizzy Quevedo MD / [email or web address] Interpreting Provider: Kizzy Quevedo MD Consult Discharge Plan - Plan Referrals: Christoph Hughes DO [Primary Care Provider] -
[2017-02-24] MEDS: Gabapentin 100 MG CAPSULE PO SCH (20:38)
[2017-02-24] MEDS: *HR* HYDROcodone/Acet 5/325 mg TABLET PO PRN (20:38)
[2017-02-25 03:49] LABS: INR 1.1; Prothrombin Time 11.4 Seconds (9.4-12.1)
[2017-02-25] MEDS: Ipratropium/Albuterol Neb 3 ML IH SCH ×4 (04:23→22:57)
[2017-02-25] MEDS: MethylPREDNISolone 40 MG/ML VIAL IVP SCH ×2 (06:18→17:18)
[2017-02-25] MEDS: Piperacillin/Tazobactam 3.375 GM in D5% in Water (Mini-Bag+) 100 ML IVPB SCH ×2 (08:00→15:50)
[2017-02-25] MEDS: Sennosides/Docusate Sodium TABLET PO SCH ×2 (08:01→20:53)
[2017-02-25] MEDS: Folic Acid 1 MG TABLET PO SCH (08:01)
[2017-02-25] MEDS: Furosemide 40 MG TABLET PO SCH (08:01)
[2017-02-25] MEDS: (Roflumilast [Daliresp] 500 MCG) PO SCH (08:22)
[2017-02-25] MEDS: (Incruse Ellipta] 1 PUFF) IH SCH (08:22)
[2017-02-25] MEDS: (Bifidobacterium Infantis [Align] 4 MG) PO SCH (08:22)
[2017-02-25] MEDS: *HR* HYDROcodone/Acet 5/325 mg TABLET PO PRN ×2 (08:22→17:18)
[2017-02-25] MEDS: Budesonide/Formoterol 160/4.5 MDI IH SCH ×2 (10:36→22:57)
--- NOTE | 2017-02-25 12:38 | Infectious Disease Consult ---
Date of Encounter: 02/25/17 Time of Encounter: 12:33 Assessment and Plan (1) Pleural effusion Status: Acute Assessment and plan: Likely secondary to malignancy. The patient has no SIRS criteria. I am not sure there is an infectious process ongoing at this time. CT scan of the chest showed similar appearance of the right plerual effusion and mass-like consolidative changes throughout the RLL with opacification of the bilateral lower lobe bronchi with mucous or aspiration. Unchanged since previous admission. Consult pulmonology for evaluation. Will discuss CT results with Dr. Bojorquez. If thoracentesis performed, please send for culture (aerobic, anaerobic, AFB, and fungal), cell count with differential, LDH, and protein. Continue Zosyn 3.375 grams IV Q8H. Continue linezolid 600mg IV BID (patient is allergic to Vancomycin). Duration of treatment depends on the clinical picture. Monitor renal function and dose-adjust antibiotics. Will likely de-escalate soon. (2) Acute on chronic respiratory failure with hypoxemia Status: Acute Assessment and plan: Likely multifactorial--> COPD + lung mass + pleural effusion +?pneumonia + fluid overload. Improved per patient report. Continue supportive care as outlined by the primary team. Consult pulmonology. (3) Atrial fibrillation Status: Chronic Assessment and plan: Rate-controlled. Management per the primary team. Qualifiers: Atrial fibrillation type: paroxysmal Qualified Code(s): I48.0 - Paroxysmal atrial fibrillation (4) CKD (chronic kidney disease) stage 3, GFR 30-59 ml/min Status: Chronic Assessment and plan: Serum creatinine normal on admission. Continue to trend. Dose-adjust antibiotics. Avoid nephrotoxins as able. (5) CAD (coronary artery disease) Status: Chronic Qualifiers: Coronary Disease-Associated Artery/Lesion type: [place] artery [place] vs. transplanted heart: [place] heart Associated angina: without angina Qualified Code(s): I25.10 - Atherosclerotic heart disease of [place] coronary artery without angina pectoris (6) Adenocarcinoma of lung Status: Acute Assessment and plan: Newly-diagnosed adenocarcinoma of the lung with likely mets to the adrenal gland. Follows with [facility]. Status post adrenal mass biopsy yesterday. Pathology pending. Hem/Onc consulted and following. Qualifiers: Laterality: right Qualified Code(s): C34.91 - Malignant neoplasm of unspecified part of right bronchus or lung Infectious Disease HPI - Data of Consult Patient: known to practice within the last 3 years Consult date: 02/25/17 Requesting Physician: Crista Rea MD Primary Care Provider: Christoph Hughes - Consult Narrative Reason for consult: Pleural effusion History of present illness: Ms. Dewitt is a 71 year old female with a past medical history of COPD, A. fib, cardiomyopathy, CHF, hypertension, [place], rheumatoid arthritis, and newly diagnosed lung cancer. The patient was a mention the hospital February 23 for hypoxemia and pleural effusion. We are consulted February 25 for further evaluation and treatment recommendations regarding right-sided pleural effusion. The patient is a 71-year-old female, known to the infectious disease service as we have been consulted on her case during her recent hospitalization. The patient presented to the emergency department on the day of admission with complaints of worsening shortness of breath. Upon arrival, the patient was afebrile hemodynamically stable. Her white blood cell count was normal. Laboratory studies revealed a normal basic metabolic panel. Her lactic acid was normal as well. She had an elevated d-dimer and underwent a CTA of the chest that showed a similar appearance of a right-sided pleural effusion and masslike consolidative changes throughout the right lower lobe with opacification of the bilateral lower lobe bronchi with mucous or aspiration. The patient was started on empiric IV antibiotics and was admitted to the hospital for further evaluation and treatment. Since admission, the patient has remained afebrile hemodynamically stable. Her white blood cell count has remained normal. Blood cultures obtained February 24 are no growth to date 2 out of 2 sets. She did undergo a left adrenal mass biopsy yesterday and those results are currently pending. Palliative care team has been consulted to discuss long-term goals of care. Additionally, oncology is been consulted as well and the recommendations have been noted. Currently, the patient is on IV linezolid and Zosyn. We have been asked to evaluate and make further recommendations. During my exam today, the patient endorses a history as stated above. She denies any fevers or chills or rigors. She denies any headache or neck pain. She denies the congestion, earache, or sore throat. She reports shortness of breath that is chronic, but was worse over the past couple of days. She also reports a moist productive cough with yellow sputum. She denies any pain in her chest. She denies any vomiting or diarrhea or constipation. She does report some nausea prior to admission, but states this has resolved. She states that her appetite is okay and she denies any abdominal pain. She denies any dysuria, hematuria, or foul odor to her urine, but does report urinary frequency likely secondary to her diuretics. She reports some swelling to the bilateral lower extremities prior to admission, this is improved as well. She denies any oral thrush or new skin lesions. CC: Crista Rea MD Past Med Surg Social Fam HX - Past Medical History Attestation: Yes The following information was validated with the patient. Source: patient, old records reviewed, nursing notes reviewed Medical history: arthritis, atrial fibrillation, cancer (lung cancer), cardiomyopathy, CHF, COPD, fibromyalgia, hypertension, myocardial infarction, osteoporosis, RA, other Psychiatric history: no psych history - Past Surgical History Surgical History: angioplasty/stent, cholecystectomy, coronary bypass (CABG), heart valve replacement, orthopedic, other - Social History Smoking Status: Former smoker Smokeless Tobacco Status: No Alcohol use: none Drug use: none Occupational status: retired Current living situation: Home - Independent - Family History Father Living Status: Hx Family Cardiac Disorders: Yes (open heart surgery) Hx Family Respiratory Disorders: No Hx Family Cancer: Yes (Liver cancer w/ mets) Hx Family GI Disorders: No Hx Family Endocrine Disorder: No Hx Family Neuromuscular Disorders: No Hx Family Neurologic Disorders: No Hx Family HEENT Disorders: No Hx Family Autoimmune Disorders: No Mother Living Status: Hx Family Cardiac Disorders: No Hx Family Respiratory Disorders: Yes Hx Family Cancer: Yes (bone, lung) Hx Family GI Disorders: No Hx Family Endocrine Disorder: No Hx Family Neuromuscular Disorders: No Hx Family Neurologic Disorders: No Hx Family HEENT Disorders: No Hx Family Autoimmune Disorders: No Infectious Disease-CN:Meds Albuterol Sulfate [Albuterol Inhaler] 1 - 2 puff IH Q4HR PRN 11/24/15 [History] Allopurinol [Zyloprim 100 MG] 100 mg PO DAILY 11/24/15 [History] Budesonide/Formoterol 160/4.5 [Symbicort 160/4.5] 2 puff IH BIDR 11/24/15 [ History] Calcium Carbonate [Calcium] 500 mg PO BID 11/24/15 [History] Cholecalciferol (D-3) [Vitamin D] 2,000 unit PO DAILY 11/24/15 [History] Fluticasone Propionate Nasal [Flonase] 1 spray NS DAILY 11/24/15 [History] Gabapentin [Neurontin] 200 mg PO HS 11/24/15 [History] Loratadine [Claritin] 10 mg PO DAILY 11/24/15 [History] Montelukast [Singulair] 10 mg PO DAILY 11/24/15 [History] Nitroglycerin [Nitrostat] 0.4 mg SL Q5M PRN 11/24/15 [History] Nortriptyline [Pamelor] 10 mg PO HS 11/24/15 [History] Roflumilast [Daliresp] 500 mcg PO DAILY 11/24/15 [History] Vitamin B Complex [B Complex] 1 tab PO DAILY 11/24/15 [History] Umeclidinium [place] [Incruse Ellipta] 1 puff IH DAILY 12/17/15 [History] Atorvastatin [Lipitor] 10 mg PO HS 01/01/16 [History] Albuterol Neb [Proventil Neb] 2.5 mg IH Q4HR PRN 08/25/16 [History] Bifidobacterium Infantis [Align] 4 mg PO DAILY 08/25/16 [History] Oxygen 2 l IN CONT #1 each 08/26/16 [Rx] Tramadol HCl 50 - 100 mg PO QID PRN 09/13/16 [History] Esomeprazole Magnesium [Nexium] 40 mg PO DAILY #30 capsule. 10/03/16 [Rx] Furosemide [Lasix] 40 mg PO BID #60 tablet 10/03/16 [Rx] Warfarin [Coumadin] 5 mg PO SUMOWEFRSA 01/18/17 [History] Warfarin [Coumadin] 7.5 mg PO TUTH 01/18/17 [History] Potassium Chloride [K-Tab ER] 20 meq PO DAILY 02/01/17 [History] Sotalol [Betapace] 80 mg PO Q12H tab 02/11/17 [Rx] Docusate [Colace] 300 mg PO BID 02/19/17 [History] Diltiazem CD (24hr) [Cardizem CD] 180 mg PO DAILY 02/23/17 [History] Enoxaparin [Lovenox] 60 mg SQ Q12HR 02/23/17 [History] 3 Allergy/AdvReac Type Severity Reaction Status Date / Time ceftriaxone Allergy Hives Verified 02/18/17 16:28 ciprofloxacin Allergy Hives Verified 02/18/17 16:28 levofloxacin Allergy Hives Verified 02/18/17 16:28 vancomycin Allergy Rash Verified 02/18/17 16:28 All systems: reviewed and no additional remarkable complaints except as stated Exam - Constitutional Vitals: Temp Pulse Resp BP Pulse Ox 97.9 F 68 20 114/78 97 02/25/17 07:00 02/25/17 07:00 02/25/17 10:36 02/25/17 07:00 02/25/17 10:36 General appearance: average body habitus, cooperative, no acute distress - Head Head exam: Present: atraumatic, normal inspection, normocephalic - Eye Eye exam: Present: EOMI, normal appearance, PERRL Pupils: Present: normal accommodation - ENT ENT exam: Present: mucous membranes moist - Neck Neck exam: Present: normal inspection - Respiratory Respiratory exam: Present: rhonchi (throughout), wheezes (fine expiratory wheezes scattered.). Absent: rales, respiratory distress, tachypnea - Cardiovascular Cardiovascular exam: Present: irregular rhythm. Absent: tachycardia - GI/Abdominal GI/Abdominal exam: Present: normal bowel sounds, soft. Absent: distended, tenderness - Extremities Exam Extremities exam: Present: normal inspection, pedal edema (1+ BLE). Absent: joint swelling, tenderness - Neurological Exam Neurological exam: Present: alert, oriented X3, no focal deficits - Psychiatric Psychiatric exam: Present: normal affect, normal mood - Skin Skin exam: Present: dry, intact, normal color, warm Infectious Disease CN: Results - Labs CBC & Chem 7: 02/24/17 05:30 02/24/17 05:30 Cultures: Cultures 02/24/17 01:29 Blood Culture - Preliminary Peripheral Venipuncture No growth. 02/24/17 01:29 Blood Culture - Preliminary Peripheral Venipuncture No growth. Consult Discharge Plan - Plan Referrals: Christoph Hughes DO [Primary Care Provider] -
--- NOTE | 2017-02-25 14:24 | Pulmonology Consult Note ---
Date of Encounter: 02/25/17 Time of Encounter: 14:24 Assessment and Plan (1) Acute and chronic respiratory failure Current Visit: No Status: Chronic Impression: Ms. Dewitt returns for worsening respiratory status and increased oxygen requirement along with productive cough. She has radiographic evidence of an unresolved right lower lobe consolidation with a small pleural effusion. From the standpoint of the pleural effusion I do not think that this is continuing watched her symptomatology and if drainage is pursued would have to be done with interventional radiology. The standpoint of unresolved infiltrate this could be a representation of underlying lung malignancy versus unresolved infection. In the past she has been noted to have stenotrophomonas from the sputum this may be potential organism that could be contributing to her symptomatology and she also had fungal elements that grew out of last bronchoscopy unclear the significance of this finding although she would be at increased risk of chronic fungal infection given advanced lung disease and structural lung disease. This may all be a manifestation of worsening lung cancer I do not think that she has a new pneumonia on top of chronic findings. She may have a mild COPD exacerbation most likely the acute cause of her shortness of breath may be a reflection of heart failure with preserved ejection fraction requiring increased diuretics support. Infectious diseases also been consulted Recs: -I do not see an acute indication to start antimicrobials will continue to monitor -I will add acetylcysteine to her breathing treatments in addition to aggressive bronchopulmonary toileting has been outlined in the primary hospitalist note in addition she should continue Accupril a therapy at least 3 times a day incentives spirometry and out of bed to chair ambulation as tolerated -Increase diuretic regimen for goal negative at least 1/2 L to 1 L over the next 12-24 hours monitor renal function -Continue supplemental oxygen to keep saturation greater than 89% -Please add sputum culture 2 -I will send fungal serologies. -I think it is reasonable to continue empiric steroids although I think she can be transitioned to oral prednisone 40 mg. -Follow up on adrenal biopsy for further chemotherapeutic options. Oncology was also seen the patient -Long-term anticoagulation management per primary medicine service for mechanical heart valve -Overall prognosis is poor agree with palliative care consult; I also spoke candidly with the family and patient at bedside given new finding of metastatic lung cancer and underlying severity of her lung function continued to decline is unfortunately anticipated. Remain optimistic that a newer chemotherapeutic option for adenocarcinoma can be employed which has fewer side effects and generally relatively effective at least in the short-term Qualifiers: Respiratory failure complication: hypoxia and hypercapnia Qualified Code(s) : J96.21 - Acute and chronic respiratory failure with hypoxia; J96.22 - Acute and chronic respiratory failure with hypercapnia (2) Pneumonia Current Visit: No Status: Acute Qualifiers: Pneumonia type: due to methicillin-sensitive Staphylococcus aureus (MSSA) Laterality: right Lung location: lower lobe of lung Qualified Code(s): J15.211 - Pneumonia due to Methicillin susceptible Staphylococcus aureus (3) H/O mitral valve replacement with mechanical valve Current Visit: Yes Status: Chronic (4) DVT prophylaxis Current Visit: Yes Status: Acute (5) Diastolic heart failure Current Visit: No Status: Chronic Qualifiers: Heart failure chronicity: chronic Qualified Code(s): I50.32 - Chronic diastolic (congestive) heart failure (6) Acute exacerbation of chronic obstructive pulmonary disease (COPD) Current Visit: Yes Status: Acute (7) Diastolic CHF Current Visit: Yes Status: Chronic Qualifiers: Congestive heart failure chronicity: acute on chronic Qualified Code(s): I50.33 - Acute on chronic diastolic (congestive) heart failure (8) Adenocarcinoma of lung Current Visit: Yes Status: Acute Qualifiers: Laterality: right Qualified Code(s): C34.91 - Malignant neoplasm of unspecified part of right bronchus or lung (9) Pleural effusion Current Visit: Yes Status: Acute History of Present Illness Consult date: 02/25/17 Requesting physician: Crista Rea Reason for consult: abnormal CXR/CT Chief complaint: Shortness of breath History of present illness: This is a pleasant 71-year-old woman well known to the pulmonary service because of chronic respiratory failure advanced COPD recently diagnosed adenocarcinoma of the long heart failure and status post mechanical valve with long-term anticoagulation. She has been admitted to the hospital nearly every month for the last 4 months and returned for increasing shortness of breath. Had been discharged after treatment for MSSA pneumonia unfortunately at that admission she had endobronchial ultrasound performed for lymphadenopathy which was positive for adenocarcinoma staging appears to be advanced and including likely skeletal metastases and involvement in the adrenal gland recent biopsy during this admission for that results pending. She is at increase sputum with cough productive of orange yellow sputum she denies hemoptysis fevers chills sweating at night. She has had increased lower extremity edema despite a Lasix regimen for her heart failure. Since admission she has required 5 L up from normal to liters and remains dyspneic. Past Med Surg Social Fam HX - Past Medical History Medical history: arthritis, atrial fibrillation, cancer (lung cancer), cardiomyopathy, CHF, COPD, fibromyalgia, hypertension, myocardial infarction, osteoporosis, RA, other Psychiatric history: no psych history - Past Surgical History Surgical History: angioplasty/stent, cholecystectomy, coronary bypass (CABG), heart valve replacement, orthopedic, other - Social History Smoking Status: Former smoker Smokeless Tobacco Status: No Alcohol use: none Drug use: none - Family History Father Living Status: Hx Family Cardiac Disorders: Yes (open heart surgery) Hx Family Respiratory Disorders: No Hx Family Cancer: Yes (Liver cancer w/ mets) Hx Family GI Disorders: No Hx Family Endocrine Disorder: No Hx Family Neuromuscular Disorders: No Hx Family Neurologic Disorders: No Hx Family HEENT Disorders: No Hx Family Autoimmune Disorders: No Mother Living Status: Hx Family Cardiac Disorders: No Hx Family Respiratory Disorders: Yes Hx Family Cancer: Yes (bone, lung) Hx Family GI Disorders: No Hx Family Endocrine Disorder: No Hx Family Neuromuscular Disorders: No Hx Family Neurologic Disorders: No Hx Family HEENT Disorders: No Hx Family Autoimmune Disorders: No Medications and Allergies Albuterol Sulfate [Albuterol Inhaler] 1 - 2 puff IH Q4HR PRN 11/24/15 [History] Allopurinol [Zyloprim 100 MG] 100 mg PO DAILY 11/24/15 [History] Budesonide/Formoterol 160/4.5 [Symbicort 160/4.5] 2 puff IH BIDR 11/24/15 [ History] Calcium Carbonate [Calcium] 500 mg PO BID 11/24/15 [History] Cholecalciferol (D-3) [Vitamin D] 2,000 unit PO DAILY 11/24/15 [History] Fluticasone Propionate Nasal [Flonase] 1 spray NS DAILY 11/24/15 [History] Gabapentin [Neurontin] 200 mg PO HS 11/24/15 [History] Loratadine [Claritin] 10 mg PO DAILY 11/24/15 [History] Montelukast [Singulair] 10 mg PO DAILY 11/24/15 [History] Nitroglycerin [Nitrostat] 0.4 mg SL Q5M PRN 11/24/15 [History] Nortriptyline [Pamelor] 10 mg PO HS 11/24/15 [History] Roflumilast [Daliresp] 500 mcg PO DAILY 11/24/15 [History] Vitamin B Complex [B Complex] 1 tab PO DAILY 11/24/15 [History] Umeclidinium [place] [Incruse Ellipta] 1 puff IH DAILY 12/17/15 [History] Atorvastatin [Lipitor] 10 mg PO HS 01/01/16 [History] Albuterol Neb [Proventil Neb] 2.5 mg IH Q4HR PRN 08/25/16 [History] Bifidobacterium Infantis [Align] 4 mg PO DAILY 08/25/16 [History] Oxygen 2 l IN CONT #1 each 08/26/16 [Rx] Tramadol HCl 50 - 100 mg PO QID PRN 09/13/16 [History] Esomeprazole Magnesium [Nexium] 40 mg PO DAILY #30 capsule. 10/03/16 [Rx] Furosemide [Lasix] 40 mg PO BID #60 tablet 10/03/16 [Rx] Warfarin [Coumadin] 5 mg PO SUMOWEFRSA 01/18/17 [History] Warfarin [Coumadin] 7.5 mg PO TUTH 01/18/17 [History] Potassium Chloride [K-Tab ER] 20 meq PO DAILY 02/01/17 [History] Sotalol [Betapace] 80 mg PO Q12H tab 02/11/17 [Rx] Docusate [Colace] 300 mg PO BID 02/19/17 [History] Diltiazem CD (24hr) [Cardizem CD] 180 mg PO DAILY 02/23/17 [History] Enoxaparin [Lovenox] 60 mg SQ Q12HR 02/23/17 [History] 3 Allergy/AdvReac Type Severity Reaction Status Date / Time ceftriaxone Allergy Hives Verified 02/18/17 16:28 ciprofloxacin Allergy Hives Verified 02/18/17 16:28 levofloxacin Allergy Hives Verified 02/18/17 16:28 vancomycin Allergy Rash Verified 02/18/17 16:28 All Systems: A 10-system review of systems was performed and is negative for pertinent findings except as documented above in the HPI. Physical Examination Vital Signs: Vital Signs, Last 4 Hours Resp Pulse Ox 02/25/17 10:36 20 97 General appearance: no acute distress Eyes: nonicteric Effort: mildly labored Auscultation: right: rhonchi, bilateral: diminished breath sounds, rales Cardiovascular: regular rate and rhythm Integumentary: normal Extremities: edema Musculoskeletal: no deformities normal mental status, non-focal exam mood appropriate Results - Laboratory Findings CBC and BMP: 02/24/17 05:30 02/24/17 05:30 ABG ABG pH 7.46 pH Units (7.32-7.45) H 02/23/17 18:06 ABG pCO2 37 mmHg (35-45) 02/23/17 18:06 ABG pO2 92 mmHg (85-104) 02/23/17 18:06 ABG O2 Saturation 98 % (95-98) 02/23/17 18:06 PT/INR, D-dimer PT 11.4 Seconds (9.4-12.1) 02/25/17 03:20 D-Dimer 1718 ng/mLFEU (0-500) H 02/23/17 16:24 Abnormal lab findings: Abnormal lab results Hgb 10.1 g/dL (11.5-15.4) L 02/24/17 05:30 Hct 32.1 % (35.3-44.9) L 02/24/17 05:30 MCV 81.3 fL (83.0-100.0) L 02/24/17 05:30 MCH 25.6 pg (28.0-33.3) L 02/24/17 05:30 MCHC 31.5 g/dL (31.6-35.5) L 02/24/17 05:30 RDW 17.0 % (11.5-14.5) H 02/24/17 05:30 Plt Count 121 K/mcL (140-400) L 02/24/17 05:30 APTT 55.5 Seconds (26.0-36.0) H 02/23/17 16:24 D-Dimer 1718 ng/mLFEU (0-500) H 02/23/17 16:24 ABG pH 7.46 pH Units (7.32-7.45) H 02/23/17 18:06 ABG Total CO2 27.4 mEq/L (20-26) H 02/23/17 18:06 BUN 23 mg/dL (7-20) H 02/24/17 05:30 BUN/Creatinine Ratio 32 (6-26) H 02/24/17 05:30 Alkaline Phosphatase 131 Units/L (38-126) H 02/23/17 16:24 B-Natriuretic Peptide 245 pg/mL (0-100) H 02/23/17 16:24 Serum Total Protein 5.5 g/dL (6.0-8.3) L 02/23/17 16:24 Albumin 2.4 g/dL (3.5-5.0) L 02/23/17 16:24 Albumin/Globulin Ratio 0.8 (1.1-2.2) L 02/23/17 16:24 Procalcitonin 0.13 ng/mL (<=0.10) H 02/24/17 00:04 Ur Specific [place] > 1.030 (1.010-1.025) H 02/23/17 20:10 Ur Leukocyte Esterase Moderate (Negative) H 02/23/17 20:10 Urine Microscopic RBC 3-5 per hpf (0-3) H 02/23/17 20:10 Urine Microscopic WBC 3-5 per hpf (0-3) H 02/23/17 20:10 Ur Squamous Epith Cells Many per lpf (None-Few) H 02/23/17 20:10 Ur Culture Indicated? YES (NO) A 02/23/17 20:10 - Microbiology Findings Microbiology Findings: Microbiology, Last 48 Hours 02/24/17 01:29 Blood Culture - Preliminary Peripheral Venipuncture No growth. 02/24/17 01:29 Blood Culture - Preliminary Peripheral Venipuncture No growth. - Diagnostic Findings Chest x-ray: report reviewed, image reviewed CT scan - chest: report reviewed, image reviewed - Clinical Findings Intake & Output: Intake & Output 02/24/17 02/25/17 02/25/17 23:59 07:59 15:59 Intake Total 740 / 740 100 / 100 460 / 460 Output Total 0 / 0 600 / 600 Balance 740 / 740 100 / 100 -140 / -140 Weight 55.5 kg Consult Discharge Plan - Plan Referrals: Christoph Hughes, [Primary Care Provider] -
[2017-02-25] MEDS: Acetylcysteine 10% 2 ML INHSOL IH SCH ×2 (16:28→22:53)
[2017-02-25] MEDS: Furosemide 40 MG/4 ML VIAL IVP SCH (17:18)
[2017-02-25] MEDS ORDERED: *HR* Warfarin 10 MG TABLET PO ONE (17:50)
--- NOTE | 2017-02-25 17:54 | Internal Med Progress Note ---
Date of Encounter: 02/25/17 Time of Encounter: 17:52 - Assessment and plan (1) COPD exacerbation Current Visit: Yes Status: Acute (2) Adenocarcinoma of lung Current Visit: Yes Status: Acute Qualifiers: Laterality: right Qualified Code(s): C34.91 - Malignant neoplasm of unspecified part of right bronchus or lung (3) Pleural effusion Current Visit: Yes Status: Acute (4) Diastolic CHF Current Visit: Yes Status: Chronic Qualifiers: Congestive heart failure chronicity: acute on chronic Qualified Code(s): I50.33 - Acute on chronic diastolic (congestive) heart failure (5) H/O mitral valve replacement with mechanical valve Current Visit: Yes Status: Chronic (6) CKD (chronic kidney disease) Current Visit: Yes Status: Acute Qualifiers: Chronic kidney disease stage: stage 3 (moderate) Qualified Code(s): N18.3 - Chronic kidney disease, stage 3 (moderate) (7) Hypertension Current Visit: Yes Status: Chronic Qualifiers: Hypertension type: essential hypertension Qualified Code(s): I10 - Essential (primary) hypertension (8) YKLIE (obstructive sleep apnea) Current Visit: Yes Status: Chronic (9) DVT prophylaxis Current Visit: Yes Status: Acute (10) Goals of care, counseling/discussion Current Visit: Yes Status: Acute - Subjective Interval history: Mrs. Dennis is a 71-year-old female very well-known to me from previous admission. She has returned with increased shortness of breath and her oxygen demand increased from 3 L to 5 L. 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 Left-sided renal shows a mass which was biopsied today. Oncology is offering her palliative treatment. Admitting hospitalist has a started patient on nebulizer treatments. I looked at her chest x-ray which is not too different from the chest x-ray 2 weeks ago when I saw her last time. It has shows right-sided consolidation with some effusion and some pulmonary edema. I do not think she has accumulated too much fluid comparatively. We discussed the possibility of thoracentesis however it appears that her lungs x-ray has not changed a lot and probably her symptomatology is more due to underlying lung cancer. I did discuss the case with pulmonology who patient has been requesting to see her. Considering that she would not be a candidate for thoracentesis this time I will restart her Coumadin while she is on Lovenox. I have also changed her home Lasix 40 mg daily to 40 mg IV twice a day to keep her in negative as per pulmonology recommendations. Following is my previous note from last admission which outlined all her medical conditions Previous note: Mrs. Chris Dewitt s a 71-year-old female admitted founcontrolled atrial fibrillation. Previously she was tried on beta Blockers and amiodarone. Cardiologyconsulted who have restarted her on sotalol Patient is in sinus rhythm. She has prosthetic mitral valve A. fib and she is on Coumadin with target INR 2.5-3.5. However on admission her INR was 5 therefore Coumadin was put on hold. patient was noted to have right sided consolidation and lymphadenopathy and previous BAL showed atypical cells. Since she planned to have bronchoscopy therefore Coumadin is on hold and per cardiology she will be bridgewith IV heparinin the meantime. Pulmonology was consulted. Apparently she was scheduled to get bronchoscopy as outpatient According o cardiologypractitioner she had ablack tarry stool this morning. Her hemoglobin is only modestly dropped from admission from 13-11 and seems reasonably stable. GI is consulted as this would be a high time to do while she will be off Coumadin. She will be on PPI. she has left-sided consolidation with effusioni consistent with pneumonia. Previous BAL showed Stenotrophomonas maltophilia. Infectious disease is on case. 02/08 #1 admitted for uncontrolled A. fib and now very well controlled with sotalol. She has a prosthetic mitral valve and therefore target INR is between 2.5 and 3.5 on Coumadin which is restarted. Bridging lovenox. Pharmacy is managing Coumadin dosing #2 recurrent pneumonia with Stenotrophomonas maltophilia historically but NOW sputum cultures have shown MRSA. On recent CT chest bilateral infiltrates with effusion of which left infiltrate has been present for a while. Currently on Augmentin SPUTUM CULTURE SHOWED MRSA THEREFORE VANCOMYCIN ADDED yesterday but nursing did not start it as patient has hx of turning red on Vanc??? , I have switch him to Doxycycline. Renal functions are satisfactory and will be monitored as well as CBC. Patient has failed multiple antibiotic treatment in the past. Infectious disease on the case and will decide about MRSA coverage #3 COPD. Also has COPD for which she gets nebulizer treatments and seems to have responded well as reflected by the ABG drawn previously. She will be okay with 1-2 L oxygen only. #4 Concern for malignancy raised from infectious disease especially because she has confluent right hilar lymphadenopathy and also bilateral to basal consolidation which could be pneumonia versus malignancy especially tender on the left side. Dr. Matias did bronch/biopsy and results are pending. #5 positive Hemoccult of stool but hemoglobin is quite stable and actually improving. Dr. Chauhan did EGD which showed prepyloric gastritis. Biopsy pending. On protonix. #5 her CHF COPD CKD. Patient is a full soft. She has noted increased and pedal edema. Lungs are still clear. I will resume her Lasix now. she will be on Coumadin and Lovenox for bridging as she has prosthetic mitral valve and will certainly need bridging. Dr Cohen asked to keep her until biopsy results. Patient will use gentle biopsy results are available upon request of pulmonology. Today I heard a few rhonchi bilaterally. Did give an extra dose of Lasix yesterday and this morning she is -1600 but as a consequence creatinine has also gone up. We have restarted her Lasix 40 by mouth twice a day which she can use at home and will continue to monitor her creatinine. I will switch her from IV Solu-Medrol to prednisone 40 twice a day and that does need to be tapered down very slowly. - Constitutional Vitals: Temp Pulse Resp BP Pulse Ox 97.9 F 82 18 114/78 92 02/25/17 15:00 02/25/17 15:00 02/25/17 16:12 02/25/17 15:00 02/25/17 16:12 - Head Head exam: Present: atraumatic, normocephalic - Eye Eye exam: Present: PERRL, conjuntiva pink, sclera anicteric Pupils: Present: PERRL - Neck Neck exam general surgery: Present: supple, trachea midline. Absent: lymphadenopathy - Respiratory Respiratory exam: Present: CTAB. Absent: accessory muscle use, rales, rhonchi, wheezes - Cardiovascular Cardiovascular exam: Present: RRR, +S1, +S2. Absent: diastolic murmur, gallop, rubs, systolic murmur - GI/Abdominal GI/Abdominal exam: Present: normal bowel sounds, soft, no peritoneal signs. Absent: distended, tenderness - Extremities Exam Extremities exam: Present: warm, radial pulses palpable and symmetrical. Absent : calf tenderness, cyanotic, pedal edema - Neurological Exam Neurological exam: Present: CN II-XII intact, oriented X3, no focal deficits. Absent: pronater drift, facial droop, speech deficit - Skin Skin exam: Present: dry, intact Internal Medicine: Result - Labs CBC & Chem 7: 02/24/17 05:30 02/24/17 05:30 - ABG Interpretation ABG results: ABG ABG pH 7.46 pH Units (7.32-7.45) H 02/23/17 18:06 ABG pCO2 37 mmHg (35-45) 02/23/17 18:06 ABG pO2 92 mmHg (85-104) 02/23/17 18:06 ABG O2 Saturation 98 % (95-98) 02/23/17 18:06 PT/INR, D-dimer PT 11.4 Seconds (9.4-12.1) 02/25/17 03:20 D-Dimer 1718 ng/mLFEU (0-500) H 02/23/17 16:24 Consult Discharge Plan - Plan Referrals: Christoph Hughes DO [Primary Care Provider] -
[2017-02-25] MEDS ORDERED: Warfarin perPT PO PRN (18:00)
[2017-02-25] MEDS ORDERED: *HR* Warfarin 7.5 MG TABLET PO ONE (18:15)
[2017-02-25] MEDS: Gabapentin 100 MG CAPSULE PO SCH (20:53)
[2017-02-25] MEDS: *HR* Enoxaparin 60 MG/0.6 ML SYRINGE SQ SCH (20:54)
[2017-02-26] MEDS: Piperacillin/Tazobactam 3.375 GM in D5% in Water (Mini-Bag+) 100 ML IVPB SCH ×2 (00:33→08:52)
[2017-02-26] MEDS: *HR* HYDROcodone/Acet 5/325 mg TABLET PO PRN ×3 (00:40→20:10)
[2017-02-26 04:04] LABS: INR 1.1; Prothrombin Time 11.6 Seconds (9.4-12.1)
[2017-02-26 04:10] LABS: BUN/Creatinine Ratio 27 (6-26); Blood Urea Nitrogen 24 mg/dL (7-20); Calcium 8.2 mg/dL (8.6-10.8); Carbon Dioxide 30 mEq/L (19-29); Chloride 101 mEq/L (98-109); Glucose 105 mg/dL (70-99); Magnesium 1.6 mg/dL (1.6-2.6); Osmolality,Calculated 290 (280-300); Potassium 3.5 mEq/L (3.5-4.5); Sodium 138 mEq/L (136-145); eGFR For African Americans > 60 (> 60); eGFR For Non-African Americans > 60 (> 60)
[2017-02-26] MEDS: Ipratropium/Albuterol Neb 3 ML IH SCH ×2 (04:33→09:54)
[2017-02-26] MEDS: Acetylcysteine 10% 2 ML INHSOL IH SCH ×3 (04:34→22:34)
[2017-02-26] MEDS ORDERED: 0.9 % Sodium Chloride 500 ML IVC ONE (05:06)
[2017-02-26] MEDS: MethylPREDNISolone 40 MG/ML VIAL IVP SCH (06:08)
--- NOTE | 2017-02-26 06:33 | Pulmonology Progress Note ---
Date of Encounter: 02/26/17 Time of Encounter: 06:33 Assessment and Plan (1) Acute and chronic respiratory failure Current Visit: No Status: Chronic Qualifiers: Respiratory failure complication: hypoxia and hypercapnia Qualified Code(s) : J96.21 - Acute and chronic respiratory failure with hypoxia; J96.22 - Acute and chronic respiratory failure with hypercapnia (2) Pneumonia Current Visit: No Status: Acute Qualifiers: Pneumonia type: due to methicillin-sensitive Staphylococcus aureus (MSSA) Laterality: right Lung location: lower lobe of lung Qualified Code(s): J15.211 - Pneumonia due to Methicillin susceptible Staphylococcus aureus (3) H/O mitral valve replacement with mechanical valve Current Visit: Yes Status: Chronic (4) DVT prophylaxis Current Visit: Yes Status: Acute (5) Diastolic heart failure Current Visit: No Status: Chronic Qualifiers: Heart failure chronicity: chronic Qualified Code(s): I50.32 - Chronic diastolic (congestive) heart failure (6) Acute exacerbation of chronic obstructive pulmonary disease (COPD) Current Visit: Yes Status: Acute (7) Diastolic CHF Current Visit: Yes Status: Chronic Qualifiers: Congestive heart failure chronicity: acute on chronic Qualified Code(s): I50.33 - Acute on chronic diastolic (congestive) heart failure (8) Adenocarcinoma of lung Current Visit: Yes Status: Acute Qualifiers: Laterality: right Qualified Code(s): C34.91 - Malignant neoplasm of unspecified part of right bronchus or lung (9) Pleural effusion Current Visit: Yes Status: Acute Subjective Principal diagnosis: Respiratory Failure Interval history: [place] better after diuresis and had more productive cough with NAC however had Afib with RVR and low pressure and was given fluid back feels more short of breath now. Remains afebrile Objective PUL Vital signs: Last Vital Signs Temp 98.7 F 02/26/17 04:56 Pulse 128 02/26/17 04:56 Resp 20 02/26/17 04:56 BP 92/67 02/26/17 04:56 Pulse Ox 98 02/26/17 04:56 General appearance: no acute distress Auscultation: bilateral: diminished breath sounds Cardiovascular: regular rate and rhythm Gastrointestinal: normoactive bowel sounds Extremities: edema Results - Laboratory Findings CBC and BMP: 02/24/17 05:30 02/26/17 03:50 ABG ABG pH 7.46 pH Units (7.32-7.45) H 02/23/17 18:06 ABG pCO2 37 mmHg (35-45) 02/23/17 18:06 ABG pO2 92 mmHg (85-104) 02/23/17 18:06 ABG O2 Saturation 98 % (95-98) 02/23/17 18:06 PT/INR, D-dimer PT 11.6 Seconds (9.4-12.1) 02/26/17 03:50 D-Dimer 1718 ng/mLFEU (0-500) H 02/23/17 16:24 Abnormal lab findings: Abnormal lab results Hgb 10.1 g/dL (11.5-15.4) L 02/24/17 05:30 Hct 32.1 % (35.3-44.9) L 02/24/17 05:30 MCV 81.3 fL (83.0-100.0) L 02/24/17 05:30 MCH 25.6 pg (28.0-33.3) L 02/24/17 05:30 MCHC 31.5 g/dL (31.6-35.5) L 02/24/17 05:30 RDW 17.0 % (11.5-14.5) H 02/24/17 05:30 Plt Count 121 K/mcL (140-400) L 02/24/17 05:30 APTT 55.5 Seconds (26.0-36.0) H 02/23/17 16:24 D-Dimer 1718 ng/mLFEU (0-500) H 02/23/17 16:24 ABG pH 7.46 pH Units (7.32-7.45) H 02/23/17 18:06 ABG Total CO2 27.4 mEq/L (20-26) H 02/23/17 18:06 Carbon Dioxide 30 mEq/L (19-29) H 02/26/17 03:50 BUN 24 mg/dL (7-20) H 02/26/17 03:50 BUN/Creatinine Ratio 27 (6-26) H 02/26/17 03:50 Glucose 105 mg/dL (70-99) H 02/26/17 03:50 Calcium 8.2 mg/dL (8.6-10.8) L 02/26/17 03:50 Alkaline Phosphatase 131 Units/L (38-126) H 02/23/17 16:24 B-Natriuretic Peptide 245 pg/mL (0-100) H 02/23/17 16:24 Serum Total Protein 5.5 g/dL (6.0-8.3) L 02/23/17 16:24 Albumin 2.4 g/dL (3.5-5.0) L 02/23/17 16:24 Albumin/Globulin Ratio 0.8 (1.1-2.2) L 02/23/17 16:24 Procalcitonin 0.13 ng/mL (<=0.10) H 02/24/17 00:04 Ur Specific [place] > 1.030 (1.010-1.025) H 02/23/17 20:10 Ur Leukocyte Esterase Moderate (Negative) H 02/23/17 20:10 Urine Microscopic RBC 3-5 per hpf (0-3) H 02/23/17 20:10 Urine Microscopic WBC 3-5 per hpf (0-3) H 02/23/17 20:10 Ur Squamous Epith Cells Many per lpf (None-Few) H 02/23/17 20:10 Ur Culture Indicated? YES (NO) A 02/23/17 20:10 - Microbiology Findings Microbiology Findings: Microbiology, Last 48 Hours 02/25/17 23:27 Sputum Culture - Preliminary Sputum 02/24/17 01:29 Blood Culture - Preliminary Peripheral Venipuncture No growth. 02/24/17 01:29 Blood Culture - Preliminary Peripheral Venipuncture No growth. - Clinical Findings Intake & Output: Intake & Output 02/25/17 02/25/17 02/26/17 15:59 23:59 07:59 Intake Total 760 / 760 400 / 400 Output Total 900 / 900 Balance -140 / -140 400 / 400 Weight 56.1 kg Consult Discharge Plan - Plan Referrals: Christoph Hughes DO [Primary Care Provider] - Impression 1. Acute on chronic hypoxic respiratory failure increased O2 requirements 2. HFpEF volume overloaded on exam 3. Unresolved RLL Infiltrate: ?Maligancy vs PNA (possible albeit less likely chronic fungal PNA) 4. COPD with Bronchitic phenotypical features 5. Metastatic AdenoCa of lung s/p adrenal biopsy Oncology following 6. LTA for Mechanical Heart Valve RECS: -Cont Diuresis as BP tolerates daily renal function/electrolyte pain -cont supplemental O2 to keep SaO2 >88% -cont BDs and Steroids. Cont Aerosolized NAC treatments; aggressive Pulmonary Toilet -f/u stop ABx for now as low likelihood of active infection (Procalcitonin only very modestly elevated) Sputum culture and Fungal Serologies -Cont anticoagulation per primary Medicine Service.
--- NOTE | 2017-02-26 08:49 | Palliative Progress Note ---
Date of Encounter: 02/26/17 Time of Encounter: 07:45 - Assessment and plan (1) Acute exacerbation of chronic obstructive pulmonary disease (COPD) Current Visit: Yes Status: Acute Assessment and plan: Being followed by hospitalist team and pulmonary. Patient does have a pneumonia. He is on antibiotics. So being followed by ID. (2) Adenocarcinoma of lung Current Visit: Yes Status: Acute Assessment and plan: Awaiting full results of the biopsy. However here that oncology has [facility] for the patient. She wishes to avail herself of whatever is available. Qualifiers: Laterality: right Qualified Code(s): C34.91 - Malignant neoplasm of unspecified part of right bronchus or lung (3) Goals of care, counseling/discussion Current Visit: Yes Status: Acute Assessment and plan: She has already been established DNR CCA DNI. This is been reconfirmed. Also care: Patient wishes to be treated for her ammonia aggressively, to be treated aggressively for her cancer. She does understand that this cancer treatment may very well be palliative in nature she wants to see if she can shrink these tumors and oral awls are to be at home with her family joining them. Allergies of care was consulted regarding confirming status, and reaffirming the goals of care. This has been done we will sign off please feel free to reconsult if we can help in any way. (4) HCAP (healthcare-associated pneumonia) Current Visit: No Status: Acute Assessment and plan: Being followed by infectious disease, pulmonary in the hospitalist team. Plan per those 3. (5) Constipation Current Visit: No Status: Chronic Assessment and plan: She is now having bowel movements. Continue bowel regimen. Qualifiers: Constipation type: slow transit constipation Qualified Code(s): K59.01 - Slow transit constipation - Time Spent With Patient Total time spent is greater than 50% in coordination of care (as documented) at patient's floor/unit and/or counseling patient: - Subjective Interval history: Breathing better this morning, no complaints of. sHe is hopeful about the cancer treatment. - Constitutional Vitals: Abnormal lab results Hgb 10.1 g/dL (11.5-15.4) L 02/24/17 05:30 Hct 32.1 % (35.3-44.9) L 02/24/17 05:30 MCV 81.3 fL (83.0-100.0) L 02/24/17 05:30 MCH 25.6 pg (28.0-33.3) L 02/24/17 05:30 MCHC 31.5 g/dL (31.6-35.5) L 02/24/17 05:30 RDW 17.0 % (11.5-14.5) H 02/24/17 05:30 Plt Count 121 K/mcL (140-400) L 02/24/17 05:30 APTT 55.5 Seconds (26.0-36.0) H 02/23/17 16:24 D-Dimer 1718 ng/mLFEU (0-500) H 02/23/17 16:24 ABG pH 7.46 pH Units (7.32-7.45) H 02/23/17 18:06 ABG Total CO2 27.4 mEq/L (20-26) H 02/23/17 18:06 Carbon Dioxide 30 mEq/L (19-29) H 02/26/17 03:50 BUN 24 mg/dL (7-20) H 02/26/17 03:50 BUN/Creatinine Ratio 27 (6-26) H 02/26/17 03:50 Glucose 105 mg/dL (70-99) H 02/26/17 03:50 Calcium 8.2 mg/dL (8.6-10.8) L 02/26/17 03:50 Alkaline Phosphatase 131 Units/L (38-126) H 02/23/17 16:24 B-Natriuretic Peptide 245 pg/mL (0-100) H 02/23/17 16:24 Serum Total Protein 5.5 g/dL (6.0-8.3) L 02/23/17 16:24 Albumin 2.4 g/dL (3.5-5.0) L 02/23/17 16:24 Albumin/Globulin Ratio 0.8 (1.1-2.2) L 02/23/17 16:24 Procalcitonin 0.13 ng/mL (<=0.10) H 02/24/17 00:04 Ur Specific [place] > 1.030 (1.010-1.025) H 02/23/17 20:10 Ur Leukocyte Esterase Moderate (Negative) H 02/23/17 20:10 Urine Microscopic RBC 3-5 per hpf (0-3) H 02/23/17 20:10 Urine Microscopic WBC 3-5 per hpf (0-3) H 02/23/17 20:10 Ur Squamous Epith Cells Many per lpf (None-Few) H 02/23/17 20:10 Ur Culture Indicated? YES (NO) A 02/23/17 20:10 General appearance: Present: no acute distress - Head Head exam: Present: atraumatic, normal inspection - Eye Eye exam: Present: normal appearance - ENT ENT exam: Present: mucous membranes moist - Neck Neck exam: Present: normal inspection - Respiratory Respiratory exam: Present: decreased breath sounds - Cardiovascular Cardiovascular exam: Present: irregular rhythm (Mild) - Extremities Exam Extremities exam: Present: pedal edema. Absent: tenderness - Neurological Exam Neurological exam: Present: alert, oriented X3 - Psychiatric Psychiatric exam: Present: normal affect, normal mood. Absent: agitated, anxious - Skin Skin exam: Present: dry, warm Palliative Quality Palliative Quality: Screen for Code Status: Yes, Screen for Goals of Care: Yes, Screen for Pain: Yes, If Pain Regimen Started, Initiate Bowel Regimen: Yes, Screen for Nausea/Vomitting: Yes - Labs CBC & Chem 7: 02/24/17 05:30 02/26/17 03:50 Labs: Laboratory Results - last 24 hr 02/24/17 02/26/17 02/26/17 00:04 03:50 03:50 PT 11.6 INR 1.1 Sodium 138 Potassium 3.5 Chloride 101 Carbon Dioxide 30 H BUN 24 H Creatinine 0.88 Est GFR ( Amer) > 60 Est GFR (Non-Af Amer) > 60 BUN/Creatinine Ratio 27 H Glucose 105 H Calculated Osmolality 290 Calcium 8.2 L Magnesium 1.6 Troponin I Procalcitonin 0.13 H 02/26/17 06:25 PT INR Sodium Potassium Chloride Carbon Dioxide BUN Creatinine Est GFR ( Amer) Est GFR (Non-Af Amer) BUN/Creatinine Ratio Glucose Calculated Osmolality Calcium Magnesium Troponin I 0.03 Procalcitonin - ABG Interpretation ABG results: ABG ABG pH 7.46 pH Units (7.32-7.45) H 02/23/17 18:06 ABG pCO2 37 mmHg (35-45) 02/23/17 18:06 ABG pO2 92 mmHg (85-104) 02/23/17 18:06 ABG O2 Saturation 98 % (95-98) 02/23/17 18:06 PT/INR, D-dimer PT 11.6 Seconds (9.4-12.1) 02/26/17 03:50 D-Dimer 1718 ng/mLFEU (0-500) H 02/23/17 16:24 Consult Discharge Plan - Plan Referrals: Christoph Hughes DO [Primary Care Provider] -
[2017-02-26] MEDS: Furosemide 40 MG/4 ML VIAL IVP SCH (08:50)
[2017-02-26] MEDS: Folic Acid 1 MG TABLET PO SCH (09:02)
[2017-02-26] MEDS: predniSONE 20 MG TABLET PO SCH (09:02)
[2017-02-26] MEDS: Sennosides/Docusate Sodium TABLET PO SCH ×2 (09:02→20:04)
[2017-02-26] MEDS: *HR* Enoxaparin 60 MG/0.6 ML SYRINGE SQ SCH ×2 (09:03→20:10)
[2017-02-26] MEDS: Budesonide/Formoterol 160/4.5 MDI IH SCH ×2 (09:54→22:34)
--- NOTE | 2017-02-26 10:25 | Event Note ---
Date of Encounter: 02/26/17 Time of Encounter: 10:21 [employer] notes reviewed and case discussed with Dr. Bojorquez with pulmonology. Imaging and clinical picture not convincing for acute infection. Antibiotics have been stopped. Fungal serologies pending, although if they come back positive, I am not sure that the patient would be a good candidate for antifungals. Will defer further management to the pulmonology team at this time. Will sign off. Please re-consult if needed. We will be happy to re- evaluate.
[2017-02-26] MEDS: (Roflumilast [Daliresp] 500 MCG) PO SCH (10:51)
[2017-02-26] MEDS: (Incruse Ellipta] 1 PUFF) IH SCH (10:51)
[2017-02-26] MEDS: (Bifidobacterium Infantis [Align] 4 MG) PO SCH (10:51)
--- NOTE | 2017-02-26 15:22 | Electrocardiograph Report ---
[place] [id number] Test Date: 2017-02-23 Pat Name: Yasmeen Dewitt Department: 102 Room: 2NE29 Gender: F Psychologist Engineering: Shaylee : 1945 Requested By: Bill Patino Order Number: [id number] Reading MD: Amelia Page Measurements Intervals [place] Rate: 128 P: CT: 0 QRS: 55 QRSD: 81 T: 66 QT: 327 QTc: 403 Interpretive Statements ATRIAL FIBRILLATION WITH RAPID VENTRICULAR RESPONSE Electronically Signed On 02-26-2017 15:21:14 EDT by Amelia Page
--- NOTE | 2017-02-26 16:47 | Internal Med Progress Note ---
Date of Encounter: 02/26/17 Time of Encounter: 15:00 - Assessment and plan (1) Acute on chronic respiratory failure with hypoxemia Current Visit: Yes Status: Acute Assessment and plan: Pulmonology on board. Case discussed with pulmonology. Appreciate input and assistance. Continue oxygen supplementation. Gentle diuresis as blood pressure tolerates. Patient will be resumed on by mouth Lasix tomorrow. Patient is high risk due to risk of worsening respiratory failure. (2) Hypertension Current Visit: Yes Status: Chronic Assessment and plan: Controlled blood pressure. Continue current medications. Qualifiers: Hypertension type: essential hypertension Qualified Code(s): I10 - Essential (primary) hypertension (3) Atrial fibrillation Current Visit: Yes Status: Chronic Assessment and plan: Currently in sinus rhythm. Continue sotalol. On anticoagulation. Qualifiers: Atrial fibrillation type: paroxysmal Qualified Code(s): I48.0 - Paroxysmal atrial fibrillation (4) COPD (chronic obstructive pulmonary disease) Current Visit: Yes Status: Chronic Qualifiers: COPD type: unspecified COPD Qualified Code(s): J44.9 - Chronic obstructive pulmonary disease, unspecified (5) H/O mitral valve replacement with mechanical valve Current Visit: No Status: Chronic (6) Adenocarcinoma of lung Current Visit: No Status: Chronic Assessment and plan: Palliative onboard. Outpatient follow-up with oncology for possible chemotherapy. Qualifiers: Laterality: right Qualified Code(s): C34.91 - Malignant neoplasm of unspecified part of right bronchus or lung - Subjective Interval history: Patient states that her breathing is better. Overnight, the patient had an episode of rapid ventricular response due to atrial fibrillation. She received intravenous Cardizem. The patient also received Lasix yesterday. Her blood pressure was borderline low this morning and she received a 500 cc bolus of normal saline. Currently, denies any cough or sputum production. Reports intermittent wheezing. Denies any chest pain. Reports feeling weak. - Constitutional Vitals: Temp Pulse Resp BP Pulse Ox 97.6 F 79 19 120/71 94 02/26/17 15:23 02/26/17 15:23 02/26/17 15:23 02/26/17 15:23 02/26/17 15:23 Exam: Gen.: Lying in bed. No acute distress. Chest: Reduced breath sounds right lower lobe CVS: First and second heart sounds present. No murmurs, rubs or gallops. Abdomen: Soft, nontender. Bowel sounds present. No hepatosplenomegaly. Internal Medicine: Result - Labs CBC & Chem 7: 02/24/17 05:30 02/26/17 03:50 Labs: BMP 02/26/17 03:50 Sodium 138 Potassium 3.5 Chloride 101 Carbon Dioxide 30 H BUN 24 H Creatinine 0.88 Glucose 105 H Calcium 8.2 L Cardiac Enzymes 02/26/17 Range/Units 06:25 Troponin I 0.03 (0-0.03) ng/mL - ABG Interpretation ABG results: ABG ABG pH 7.46 pH Units (7.32-7.45) H 02/23/17 18:06 ABG pCO2 37 mmHg (35-45) 02/23/17 18:06 ABG pO2 92 mmHg (85-104) 02/23/17 18:06 ABG O2 Saturation 98 % (95-98) 02/23/17 18:06 PT/INR, D-dimer PT 11.6 Seconds (9.4-12.1) 02/26/17 03:50 D-Dimer 1718 ng/mLFEU (0-500) H 02/23/17 16:24 - Impressions Case discussed with pulmonology Consult Discharge Plan - Plan Referrals: Christoph Hughes DO [Primary Care Provider] -
[2017-02-26] MEDS: Ipratropium Neb 0.5 MG NEBULIZER IH SCH ×2 (16:49→22:34)
[2017-02-26] MEDS ORDERED: *HR* Warfarin 7.5 MG TABLET PO ONE (18:00)
[2017-02-26] MEDS: Gabapentin 100 MG CAPSULE PO SCH (20:10)
[2017-02-27] MEDS: Acetylcysteine 10% 2 ML INHSOL IH SCH ×3 (04:01→22:54)
[2017-02-27] MEDS: Ipratropium Neb 0.5 MG NEBULIZER IH SCH ×4 (04:01→22:53)
[2017-02-27 04:49] LABS: INR 1.5; Prothrombin Time 15.8 Seconds (9.4-12.1)
[2017-02-27] MEDS: Folic Acid 1 MG TABLET PO SCH (09:16)
[2017-02-27] MEDS: *HR* Enoxaparin 60 MG/0.6 ML SYRINGE SQ SCH ×2 (09:16→21:14)
[2017-02-27] MEDS: predniSONE 20 MG TABLET PO SCH (09:16)
[2017-02-27] MEDS: Sennosides/Docusate Sodium TABLET PO SCH ×3 (09:17→21:19)
[2017-02-27] MEDS: Furosemide 40 MG TABLET PO SCH ×2 (09:17→16:43)
[2017-02-27] MEDS: *HR* HYDROcodone/Acet 5/325 mg TABLET PO PRN ×3 (09:20→21:21)
[2017-02-27] MEDS: Budesonide/Formoterol 160/4.5 MDI IH SCH ×2 (11:01→22:53)
--- NOTE | 2017-02-27 13:19 | Internal Med Progress Note ---
Date of Encounter: 02/27/17 Time of Encounter: 13:17 - Assessment and plan (1) Acute on chronic respiratory failure with hypoxemia Current Visit: Yes Status: Acute Assessment and plan: Continue oxygen supplementation. Resume by mouth Lasix twice a day today. Patient is high risk due to risk of worsening respiratory failure and need for close monitoring. (2) Hypertension Current Visit: Yes Status: Chronic Assessment and plan: Stable blood pressure. Continue current medications. Qualifiers: Hypertension type: essential hypertension Qualified Code(s): I10 - Essential (primary) hypertension (3) Atrial fibrillation Current Visit: Yes Status: Chronic Assessment and plan: Continue sotalol. On anticoagulation. Continue bridging to Coumadin with subcutaneous Lovenox. Qualifiers: Atrial fibrillation type: paroxysmal Qualified Code(s): I48.0 - Paroxysmal atrial fibrillation (4) COPD (chronic obstructive pulmonary disease) Current Visit: Yes Status: Chronic Assessment and plan: Continue steroid therapy. Continue breathing treatments. Qualifiers: COPD type: COPD with acute exacerbation Qualified Code(s): J44.1 - Chronic obstructive pulmonary disease with (acute) exacerbation (5) H/O mitral valve replacement with mechanical valve Current Visit: No Status: Chronic Assessment and plan: Continue Coumadin (6) Adenocarcinoma of lung Current Visit: No Status: Chronic Assessment and plan: Palliative onboard. Outpatient follow-up with oncology for possible chemotherapy. Qualifiers: Laterality: right Qualified Code(s): C34.91 - Malignant neoplasm of unspecified part of right bronchus or lung - Subjective Interval history: Patient states that her shortness of breath is improving. She continues to require 5 L of oxygen. She denies any sputum production or wheezing. - Constitutional Vitals: Temp Pulse Resp BP Pulse Ox 97.6 F 84 16 139/95 91 02/27/17 08:36 02/27/17 08:36 02/27/17 11:01 02/27/17 08:36 02/27/17 11:01 Exam: Gen.: Sitting in bed. No acute distress. Chest: Clear to auscultation bilaterally. No adventitious sounds present. CVS: First and second heart sounds present. No murmurs, rubs or gallops. Abdomen: Soft, nontender, nondistended. Bowel sounds present. No hepatosplenomegaly. Internal Medicine: Result - Labs CBC & Chem 7: 02/24/17 05:30 02/26/17 03:50 - ABG Interpretation ABG results: ABG ABG pH 7.46 pH Units (7.32-7.45) H 02/23/17 18:06 ABG pCO2 37 mmHg (35-45) 02/23/17 18:06 ABG pO2 92 mmHg (85-104) 02/23/17 18:06 ABG O2 Saturation 98 % (95-98) 02/23/17 18:06 PT/INR, D-dimer PT 15.8 Seconds (9.4-12.1) H 02/27/17 04:34 D-Dimer 1718 ng/mLFEU (0-500) H 02/23/17 16:24 Consult Discharge Plan - Plan Referrals: Christoph Hughes DO [Primary Care Provider] -
[2017-02-27] MEDS ORDERED: *HR* Warfarin 7.5 MG TABLET PO ONE (18:00)
[2017-02-27] MEDS: Gabapentin 100 MG CAPSULE PO SCH (21:14)
[2017-02-28 00:30] LABS: A.galactomannan Ag Index 0.04
[2017-02-28 04:02] LABS: Basophils % 0.1 %; Hematocrit 37.7 % (35.3-44.9); Hemoglobin 11.5 g/dL (11.5-15.4); Immature Granulocytes % 0.3 % (0-4); Lymphocytes # 1.7 K/mcL (0.6-4.6); Lymphocytes % 19.4 %; Mean Corpuscular HGB Conc 30.5 g/dL (31.6-35.5); Mean Corpuscular Hemoglobin 25.1 pg (28.0-33.3); Mean Corpuscular Volume 82.3 fL (83.0-100.0); Mean Platelet Volume 10.4 fL (9.4-12.4); Monocytes # 0.9 K/mcL (0.0-1.3); Monocytes % 9.8 %; Neutrophils # 6.1 K/mcL (1.6-8.9); Platelet Count 194 K/mcL (140-400); Red Blood Count 4.58 M/mcL (3.82-4.97); Segmented Neutrophils % 70.4 %
[2017-02-28 04:12] LABS: BUN/Creatinine Ratio 27 (6-26); Blood Urea Nitrogen 26 mg/dL (7-20); Calcium 8.5 mg/dL (8.6-10.8); Carbon Dioxide 31 mEq/L (19-29); Chloride 103 mEq/L (98-109); Glucose 86 mg/dL (70-99); Osmolality,Calculated 298 (280-300); Potassium 3.4 mEq/L (3.5-4.5); Sodium 142 mEq/L (136-145); eGFR For African Americans > 60 (> 60); eGFR For Non-African Americans 58 (> 60)
[2017-02-28 04:14] LABS: INR 2.3; Prothrombin Time 24.8 Seconds (9.4-12.1)
[2017-02-28] MEDS: Ipratropium Neb 0.5 MG NEBULIZER IH SCH ×4 (04:21→23:17)
--- NOTE | 2017-02-28 05:40 | Event Note ---
Date of Encounter: 02/28/17 Time of Encounter: 02:00 Patient went back into A. fib with RVR. She has a history of paroxysmal A. fib currently being treated with sotalol. I gave her a bolus of IV Cardizem and started Cardizem drip, currently heart rate is controlled. She will likely need to resume her oral Cardizem prior to discharge.
[2017-02-28] MEDS ORDERED: Diltiazem CD (24hr) 180 MG CAPSULE PO SCH (09:00)
[2017-02-28] MEDS: *HR* Enoxaparin 60 MG/0.6 ML SYRINGE SQ SCH ×2 (09:20→21:31)
[2017-02-28] MEDS: Sennosides/Docusate Sodium TABLET PO SCH ×2 (09:20→21:31)
[2017-02-28] MEDS: Folic Acid 1 MG TABLET PO SCH (09:20)
[2017-02-28] MEDS: predniSONE 20 MG TABLET PO SCH ×2 (09:20→17:20)
[2017-02-28] MEDS: Furosemide 40 MG TABLET PO SCH ×2 (09:20→17:20)
--- NOTE | 2017-02-28 09:49 | Event Note ---
Date of Encounter: 02/28/17 Time of Encounter: 09:46 No clear evidence of acute infectious process. Follow up on possible chronic fungal pneumonia will take at least a week or longer to get full serology workup back she can follow up as outpatient for further investigation of this although again this appears less likely. The yeast species out of sputum is likely contaminated of Gaby and I will do not believe she needs treated for this. Overall picture of worsening A. fib with RVR and cardiogenic pulmonary edema is likely cause of worsening respiratory failure on this admission as noted multiple times she has extremely poor lung function and metastatic lung cancer which are also contributing factors. Biopsy of her adrenal gland has come back positive for adenocarcinoma this will need to be followed up by oncology. I agree with cardiology evaluation for antiarrhythmic therapy given persistence of atrial fibrillation. Pulmonary we will continue to follow peripherally and she will need close pulmonary clinic follow-up at time of discharge. Her primary timing machine operator Dr. Siddiqi is coming on service tomorrow and I will notify him of her admission and update him with plan of care. Thank you for this consultation I did directly discuss this case with the primary hospitalist Dr. Patino.
[2017-02-28] MEDS: Acetylcysteine 10% 2 ML INHSOL IH SCH ×3 (10:06→23:17)
[2017-02-28] MEDS: Budesonide/Formoterol 160/4.5 MDI IH SCH ×2 (10:06→23:17)
[2017-02-28] MEDS ORDERED: Potassium Chloride Elixir 20 MEQ/15 ML UDC PO ONE (13:05)
--- NOTE | 2017-02-28 13:42 | Internal Med Progress Note ---
Date of Encounter: 02/28/17 Time of Encounter: 13:40 - Assessment and plan (1) Atrial fibrillation Current Visit: Yes Status: Chronic Assessment and plan: Patient had rapid ventricular response overnight. Was on Cardizem drip. Cardiology has been consulted. Case discussed with cardiology. Will follow up recommendations by cardiology. Qualifiers: Atrial fibrillation type: paroxysmal Qualified Code(s): I48.0 - Paroxysmal atrial fibrillation (2) Acute on chronic respiratory failure with hypoxemia Current Visit: Yes Status: Acute Assessment and plan: Continue oxygen supplementation. Continue Lasix twice a day. Moderate risk due to risk of lethal arrhythmias. Case discussed with pulmonology. No further recommendations. Patient can follow up as outpatient with pulmonology regarding the results of fungal culture. (3) Hypertension Current Visit: Yes Status: Chronic Assessment and plan: Stable blood pressure. Continue current medications. Qualifiers: Hypertension type: essential hypertension Qualified Code(s): I10 - Essential (primary) hypertension (4) COPD (chronic obstructive pulmonary disease) Current Visit: Yes Status: Chronic Assessment and plan: Continue steroid therapy. Continue breathing treatments. Case discussed with pulmonology. Outpatient follow-up with pulmonology regarding the results of fungal cultures. Qualifiers: COPD type: COPD with acute exacerbation Qualified Code(s): J44.1 - Chronic obstructive pulmonary disease with (acute) exacerbation (5) H/O mitral valve replacement with mechanical valve Current Visit: No Status: Chronic Assessment and plan: Continue Coumadin (6) Adenocarcinoma of lung Current Visit: No Status: Chronic Assessment and plan: Outpatient follow-up with oncology for possible chemotherapy. Adrenal biopsy positive for adenocarcinoma. Qualifiers: Laterality: right Qualified Code(s): C34.91 - Malignant neoplasm of unspecified part of right bronchus or lung - Subjective Interval history: Patient states that she had a rough night. Overnight, patient had another episode of atrial fibrillation with rapid ventricular response. She was placed on Cardizem drip. Currently, she reports that her breathing is a little better. However, she states that she feels tired. - Constitutional Vitals: Temp Pulse Resp BP Pulse Ox 98.7 F 94 16 96/67 97 02/28/17 03:48 02/28/17 07:00 02/28/17 10:06 02/28/17 07:00 02/28/17 10:06 Exam: Gen.: Lying in bed. No acute distress. Chest: Reduced air entry bilaterally CVS: First and second heart sounds present. No murmurs, rubs or gallops. Abdomen: Soft, nontender, nondistended. Bowel sounds present. No hepatosplenomegaly. Internal Medicine: Result - Labs CBC & Chem 7: 02/28/17 03:51 02/28/17 03:51 Labs: Short CBC 02/28/17 Range/Units 03:51 WBC 8.6 (4.3-11.1) K/mcL Hgb 11.5 (11.5-15.4) g/dL Hct 37.7 (35.3-44.9) % Plt Count 194 D (140-400) K/mcL Neutrophils # 6.1 (1.6-8.9) K/mcL BMP 02/28/17 03:51 Sodium 142 Potassium 3.4 L Chloride 103 Carbon Dioxide 31 H BUN 26 H Creatinine 0.95 Glucose 86 Calcium 8.5 L - ABG Interpretation ABG results: ABG ABG pH 7.46 pH Units (7.32-7.45) H 02/23/17 18:06 ABG pCO2 37 mmHg (35-45) 02/23/17 18:06 ABG pO2 92 mmHg (85-104) 02/23/17 18:06 ABG O2 Saturation 98 % (95-98) 02/23/17 18:06 PT/INR, D-dimer PT 24.8 Seconds (9.4-12.1) H D 02/28/17 03:51 D-Dimer 1718 ng/mLFEU (0-500) H 02/23/17 16:24 Consult Discharge Plan - Plan Referrals: Christoph Hughes DO [Primary Care Provider] -
--- NOTE | 2017-02-28 15:19 | Cardiology Consult Note ---
Date of Encounter: 02/28/17 Time of Encounter: 15:17 Assessment and Plan (1) PAF (paroxysmal atrial fibrillation) Current Visit: Yes Status: Acute History of PAF. Previously placed on Sotalol 80 mg BID. Underlying pulmonary issues will make it difficult to maintain NSR. Since already on Sotalol and maintaining NSR a fair amount of time, we'll attempt increasing dose of Sotalol to 120 mg BID. Monitor ECG. Continue Coumadin therapy. We'll continue to monitor. (2) CAD in [place] artery Current Visit: Yes Status: Acute [place] CAD, prior CABG. Recommend continue statin. Already on Coumadin for mechanical MV and AF with prior anemia issues. Hold aspirin for now. (3) H/O mitral valve replacement with mechanical valve Current Visit: No Status: Chronic Mechanical MV. Recommend continue coumadin with goal INR 2.5 to 3.5. SBE prophylaxis recommended. Discussion w patient/family: The assessment and plan as outlined above was discussed with the patient and/or family members who expressed understanding and agreement. All questions were answered. Thank you for involving us in the care of your patient. Please call with any questions. History of Present Illness Consult date: 02/28/17 Requesting physician: Bill Patino Consult reason: PAF Chief complaint: Dyspnea, palpitations History of present illness: Ms. Dewitt is a 71 year old female with newly diagnosed lung adenocarcinoma, COPD. Known history of PAF. Periods of AF noted overnight. She is aware - becomes more short of breath. Placed on sotalol in 02/2017 - 80 mg BID. [place] history of CAD, prior CABG, mechanical MV replacement. Past Med Surg Social Fam HX - Past Medical History Medical history: arthritis, atrial fibrillation, cancer (lung cancer), cardiomyopathy, CHF, COPD, fibromyalgia, hypertension, myocardial infarction, osteoporosis, RA, other Psychiatric history: no psych history - Past Surgical History Surgical History: angioplasty/stent, cholecystectomy, coronary bypass (CABG), heart valve replacement, orthopedic, other - Social History Smoking Status: Former smoker Smokeless Tobacco Status: No Alcohol use: none Drug use: none - Family History Father Living Status: Hx Family Cardiac Disorders: Yes (open heart surgery) Hx Family Respiratory Disorders: No Hx Family Cancer: Yes (Liver cancer w/ mets) Hx Family GI Disorders: No Hx Family Endocrine Disorder: No Hx Family Neuromuscular Disorders: No Hx Family Neurologic Disorders: No Hx Family HEENT Disorders: No Hx Family Autoimmune Disorders: No Mother Living Status: Hx Family Cardiac Disorders: No Hx Family Respiratory Disorders: Yes Hx Family Cancer: Yes (bone, lung) Hx Family GI Disorders: No Hx Family Endocrine Disorder: No Hx Family Neuromuscular Disorders: No Hx Family Neurologic Disorders: No Hx Family HEENT Disorders: No Hx Family Autoimmune Disorders: No Medications and Allergies Albuterol Sulfate [Albuterol Inhaler] 1 - 2 puff IH Q4HR PRN 11/24/15 [History] Allopurinol [Zyloprim 100 MG] 100 mg PO DAILY 11/24/15 [History] Budesonide/Formoterol 160/4.5 [Symbicort 160/4.5] 2 puff IH BIDR 11/24/15 [ History] Calcium Carbonate [Calcium] 500 mg PO BID 11/24/15 [History] Cholecalciferol (D-3) [Vitamin D] 2,000 unit PO DAILY 11/24/15 [History] Fluticasone Propionate Nasal [Flonase] 1 spray NS DAILY 11/24/15 [History] Gabapentin [Neurontin] 200 mg PO HS 11/24/15 [History] Loratadine [Claritin] 10 mg PO DAILY 11/24/15 [History] Montelukast [Singulair] 10 mg PO DAILY 11/24/15 [History] Nitroglycerin [Nitrostat] 0.4 mg SL Q5M PRN 11/24/15 [History] Nortriptyline [Pamelor] 10 mg PO HS 11/24/15 [History] Roflumilast [Daliresp] 500 mcg PO DAILY 11/24/15 [History] Vitamin B Complex [B Complex] 1 tab PO DAILY 11/24/15 [History] Umeclidinium [place] [Incruse Ellipta] 1 puff IH DAILY 12/17/15 [History] Atorvastatin [Lipitor] 10 mg PO HS 01/01/16 [History] Albuterol Neb [Proventil Neb] 2.5 mg IH Q4HR PRN 08/25/16 [History] Bifidobacterium Infantis [Align] 4 mg PO DAILY 08/25/16 [History] Oxygen 2 l IN CONT #1 each 08/26/16 [Rx] Tramadol HCl 50 - 100 mg PO QID PRN 09/13/16 [History] Esomeprazole Magnesium [Nexium] 40 mg PO DAILY #30 capsule. 10/03/16 [Rx] Furosemide [Lasix] 40 mg PO BID #60 tablet 10/03/16 [Rx] Warfarin [Coumadin] 5 mg PO SUMOWEFRSA 01/18/17 [History] Warfarin [Coumadin] 7.5 mg PO TUTH 01/18/17 [History] Potassium Chloride [K-Tab ER] 20 meq PO DAILY 02/01/17 [History] Sotalol [Betapace] 80 mg PO Q12H tab 02/11/17 [Rx] Docusate [Colace] 300 mg PO BID 02/19/17 [History] Diltiazem CD (24hr) [Cardizem CD] 180 mg PO DAILY 02/23/17 [History] Enoxaparin [Lovenox] 60 mg SQ Q12HR 02/23/17 [History] 3 Allergy/AdvReac Type Severity Reaction Status Date / Time ceftriaxone Allergy Hives Verified 02/18/17 16:28 ciprofloxacin Allergy Hives Verified 02/18/17 16:28 levofloxacin Allergy Hives Verified 02/18/17 16:28 vancomycin Allergy Rash Verified 02/18/17 16:28 All Systems Review: A 10-system review of systems was performed and is negative for pertinent findings except as documented above in the HPI. Physical Examination General: Conversant, Other (Chronically ill appearing. ) Neck: No JVD, Normal carotid pulses Cardiac: Reg Rate and Rhythm, Normal S1 and S2, No Murmur Lungs: Other (Shallow breath sounds, rhochi, wheezing throughout) Neuro: Alert and responsive, No focal deficits noted Abdomen: Soft, Non-Tender Skin: No rashes noted on visualized skin Musculoskeletal: No Chest Wall Tenderness Extremities: No Clubbing, No Cyanosis Results 02/28/17 03:51 02/28/17 03:51 Lab Results 02/28/17 02/28/17 02/28/17 03:51 03:51 03:51 WBC 8.6 Hgb 11.5 Hct 37.7 Plt Count 194 D INR 2.3 D Sodium 142 Potassium 3.4 L Chloride 103 Carbon Dioxide 31 H BUN 26 H Creatinine 0.95 Glucose 86 Calcium 8.5 L - Imaging and Cardiology Echo: report reviewed - EKG Interpretation EKG results cardiology: personally reviewed Consult Discharge Plan - Plan Referrals: Christoph Hughes DO [Primary Care Provider] -
[2017-02-28] MEDS: *HR* HYDROcodone/Acet 5/325 mg TABLET PO PRN ×2 (17:28→21:40)
[2017-02-28] MEDS ORDERED: *HR* Warfarin 5 MG TABLET PO ONE (18:00)
[2017-02-28] MEDS: Gabapentin 100 MG CAPSULE PO SCH (21:30)
[2017-03-01] MEDS: Ipratropium Neb 0.5 MG NEBULIZER IH SCH ×4 (04:25→23:30)
[2017-03-01] MEDS: Acetylcysteine 10% 2 ML INHSOL IH SCH ×3 (04:25→23:34)
[2017-03-01 05:01] LABS: INR 2.6; Prothrombin Time 29.1 Seconds (9.4-12.1)
[2017-03-01] MEDS: Furosemide 40 MG TABLET PO SCH ×2 (09:55→17:07)
[2017-03-01] MEDS: predniSONE 20 MG TABLET PO SCH (09:55)
[2017-03-01] MEDS: Folic Acid 1 MG TABLET PO SCH (09:55)
[2017-03-01] MEDS: Sennosides/Docusate Sodium TABLET PO SCH ×2 (09:56→21:41)
[2017-03-01] MEDS: Budesonide/Formoterol 160/4.5 MDI IH SCH ×2 (10:01→23:30)
[2017-03-01] MEDS: Albuterol 2.5 MG/3 ML NEBULIZER IH PRN ×2 (10:02→16:08)
--- NOTE | 2017-03-01 12:06 | Cardiology Progress Note ---
Date of Encounter: 03/01/17 Time of Encounter: 11:00 Assessment and Plan (1) PAF (paroxysmal atrial fibrillation) Current Visit: Yes Status: Acute Per cardiology: -History of PAF. -Sotalol increased to 120mg BID per yesterday. -Underlying pulmonary issues will make it difficult to maintain NSR. -ECG today with SR, HR 67 Qt 514/ Qtc 530. Baseline QTC 459. -Patient currently SR with HR 70s. -ON coumadin for anticoagulation. -Will decrease sotalol back to 80mg q12 due to QTC prolongation. -Close telemetry monitoring. -Repeat ECG in am. -WIll continue to monitor. (2) CAD in [place] artery Current Visit: Yes Status: Acute Per cardiology: -[place] CAD, prior CABG. -Recommend continue statin. -Already on Coumadin for mechanical MV and AF with prior anemia issues. Hold aspirin for now. -Denies chest pain. -ECG with no ischemic changes. -Will continue to monitor. (3) H/O mitral valve replacement with mechanical valve Current Visit: No Status: Chronic Per cardiology: -Mechanical MV. -Recommend continue coumadin with goal INR 2.5 to 3.5. -Will continue to monitor. Discussion w patient/family: The assessment and plan as outlined above was discussed with the patient and/or family members who expressed understanding and agreement. All questions were answered. Thank you for involving us in the care of your patient. Please call with any questions. Discussed and reviewed with . Subjective Principal diagnosis: Respiratory Failure Interval history: Patient states she feels somewhat better today. Patient denies chest pain, admits to shortness of breath. Patient denies palpitations or fluttering. Objective Vital Signs, Last 4 Hours Temp Pulse Resp BP Pulse Ox 03/01/17 11:12 98.2 F 74 16 130/74 93 03/01/17 10:01 16 95 General: Conversant, Other (Conversational dyspnea noted. ) HEENT: Atraumatic, Normocephaly, Mucus Membranes Moist Neck: No JVD, Normal carotid pulses Cardiac: Reg Rate and Rhythm, Normal S1 and S2, No Murmur Lungs: Other (Lung sounds with rhonchi throughout. ) Neuro: Alert and responsive, No focal deficits noted Abdomen: Soft, Non-Tender Skin: No rashes noted on visualized skin Musculoskeletal: No Chest Wall Tenderness Extremities: No Clubbing, No Cyanosis, Normal Pulses, Other (Mild lower extremity pedal edema, non-pitting. ) Results 02/28/17 03:51 02/28/17 03:51 Lab Results Active Medications Acetaminophen (Tylenol) 650 mg PO Q6HR PRN PRN Reason: Pain Stop: 08/26/17 14:33 Last Admin: 02/24/17 15:33 Dose: 650 mg Hydrocodone Bitart/Acetaminophen ([place] 5-325 Mg) 1 tab PO Q4HR PRN PRN Reason: Severe Pain (7-10) Stop: 08/26/17 20:19 Last Admin: 02/28/17 21:40 Dose: 1 tab Acetylcysteine (Acetylcysteine 10%) 2 ml IH [id number] CAYLA Stop: 08/27/17 16:16 Last Admin: 03/01/17 04:25 Dose: 2 ml Albuterol Sulfate (Proventil Neb) 2.5 mg IH [id number] PRN; Protocol PRN Reason: Shortness Of Breath Stop: 08/26/17 00:01 Last Admin: 03/01/17 10:02 Dose: 2.5 mg Allopurinol (Zyloprim) 100 mg PO DAILY CAYLA Stop: 08/26/17 09:01 Last Admin: 03/01/17 09:55 Dose: 100 mg Atorvastatin Calcium (Lipitor) 10 mg PO HS CAYLA Stop: 08/26/17 21:01 Last Admin: 02/28/17 21:30 Dose: 10 mg Budesonide/Formoterol Fumarate (Symbicort) 2 puff IH BIDRESP CAYLA PRN Reason: Protocol Stop: 08/25/17 22:01 Last Admin: 03/01/17 10:01 Dose: 2 puff Folic Acid (Folic Acid) 1 mg PO DAILY CAYLA Stop: 08/27/17 09:01 Last Admin: 03/01/17 09:55 Dose: 1 mg Furosemide (Lasix) 40 mg PO BIDDIURETIC CAYLA Stop: 08/29/17 08:01 Last Admin: 03/01/17 09:55 Dose: 40 mg Gabapentin (Neurontin) 200 mg PO HS CAYLA Stop: 08/26/17 21:01 Last Admin: 02/28/17 21:30 Dose: 200 mg Ipratropium [place] (Atrovent Neb) 0.5 mg IH QIDR CAYLA Stop: 08/28/17 17:01 Last Admin: 03/01/17 10:01 Dose: 0.5 mg Montelukast Sodium (Singulair) 10 mg PO DAILY [facility] Stop: 08/26/17 09:01 Last Admin: 03/01/17 09:56 Dose: 10 mg Naloxone HCl (Narcan) 0.4 mg IVP Q2MIN PRN PRN Reason: Opioid Reversal Stop: 08/25/17 21:07 Omeprazole (Prilosec) 40 mg PO DAILY [facility] Stop: 08/26/17 09:01 Last Admin: 03/01/17 09:56 Dose: 40 mg Prednisone (Prednisone) 40 mg PO BIDWM [facility] Stop: 08/30/17 17:01 Last Admin: 03/01/17 09:55 Dose: 40 mg Senna/Docusate Sodium (Senna Plus) 2 each PO BID CAYLA PRN Reason: Protocol Stop: 08/26/17 09:01 Last Admin: 03/01/17 09:56 Dose: Not Given Sotalol HCl (Betapace) 80 mg PO Q12HR [facility] Stop: 08/31/17 18:01 Warfarin Sodium (Coumadin Perpt) 1 each PO DAILY@1800 PRN PRN Reason: SEE COMMENTS Stop: 08/27/17 18:01 Warfarin Sodium (Coumadin) 5 mg PO 1800 ONE Stop: 03/01/17 18:01 Laboratory Tests 02/28/17 02/28/17 03/01/17 03:51 03:51 04:40 Hgb 11.5 INR 2.6 Creatinine 0.95 - Imaging and Cardiology Chest Xray: report reviewed Echo: report reviewed - EKG Interpretation EKG results cardiology: other (Telemetry reviewed with average HR previous 12 hours noted to be 70, sinus rhythm. PVCs noted. 24 hour telemetry reviewed and patient converted to SR around 1200 02/28/17.) Consult Discharge Plan - Plan Additional Instructions: appt at cancer center on mar 10 at 10:30 for chemo and mar 11 at 2:00 for an injection Referrals: Niesha Cherry MD [Partnered Physician] - 03/04/17 1:20 pm Christoph Hughes DO [Primary Care Provider] -
--- NOTE | 2017-03-01 13:36 | Electrocardiograph Report ---
[place] [id number] Test Date: 2017-02-28 Pat Name: Yasmeen Dewitt Department: 111 Room: 2NE29 Gender: F Drum Tester: [facility] : 1945 Requested By: Juan Jose Stephens Order Number: [id number] Reading MD: Amelia Page Measurements Intervals [place] Rate: 77 P: 48 [place]: 147 QRS: 37 QRSD: 77 T: 80 QT: 439 QTc: 471 Interpretive Statements SINUS RHYTHM MODERATE T-WAVE ABNORMALITY, CONSIDER ANTERIOR ISCHEMIA Electronically Signed On 03-01-2017 13:34:46 EDT by Amelia Page
--- NOTE | 2017-03-01 14:04 | Internal Med Progress Note ---
Date of Encounter: 03/01/17 Time of Encounter: 11:45 - Assessment and plan (1) Atrial fibrillation Current Visit: Yes Status: Chronic Assessment and plan: Case discussed with cardiology. Sotalol has been reduced back to 80 mg by mouth twice a day due to QTC prolonging agent. Patient being monitored on her current medications. Will follow further determinations from cardiac. Patient is moderate risk due to risk of lethal arrhythmias. Qualifiers: Atrial fibrillation type: paroxysmal Qualified Code(s): I48.0 - Paroxysmal atrial fibrillation (2) Acute on chronic respiratory failure with hypoxemia Current Visit: Yes Status: Acute Assessment and plan: Continue oxygen supplementation and diuresis. Patient can follow up as outpatient with pulmonology regarding the results of fungal culture. (3) Hypertension Current Visit: Yes Status: Chronic Assessment and plan: Continue current medications. Qualifiers: Hypertension type: essential hypertension Qualified Code(s): I10 - Essential (primary) hypertension (4) COPD (chronic obstructive pulmonary disease) Current Visit: Yes Status: Chronic Assessment and plan: Continue steroid therapy. Will start dose reduction. Continue breathing treatments. Qualifiers: COPD type: COPD with acute exacerbation Qualified Code(s): J44.1 - Chronic obstructive pulmonary disease with (acute) exacerbation (5) H/O mitral valve replacement with mechanical valve Current Visit: No Status: Chronic Assessment and plan: Continue Coumadin to maintain an INR of 2.5-3.5 Discontinue Lovenox (6) Adenocarcinoma of lung Current Visit: No Status: Chronic Assessment and plan: Outpatient follow-up with oncology for possible chemotherapy. Adrenal biopsy positive for adenocarcinoma. Qualifiers: Laterality: right Qualified Code(s): C34.91 - Malignant neoplasm of unspecified part of right bronchus or lung - Subjective Interval history: Patient was placed on sotalol 120 mg twice a day last night. However, she has increase in her QTc interval. Hence, sotalol has been reduced back to 80 mg twice a day by cardiology. Patient states that she is feeling better today. She continues to report shortness of breath that worsens with exertion. Denies any cough, wheezing. Denies feeling lightheaded. - Constitutional Vitals: Temp Pulse Resp BP Pulse Ox 98.2 F 74 16 130/74 93 03/01/17 11:12 03/01/17 11:12 03/01/17 11:12 03/01/17 11:12 03/01/17 11:12 Exam: Gen.: Lying in bed. Mild to moderate distress. Chest: Clear to auscultation bilaterally. No adventitious sounds present. CVS: First and second heart sounds present. No murmurs, rubs or gallops. Abdomen: Soft, nontender, nondistended. Bowel sounds present. No hepatosplenomegaly. Internal Medicine: Result - Labs CBC & Chem 7: 02/28/17 03:51 02/28/17 03:51 - ABG Interpretation ABG results: ABG ABG pH 7.46 pH Units (7.32-7.45) H 02/23/17 18:06 ABG pCO2 37 mmHg (35-45) 02/23/17 18:06 ABG pO2 92 mmHg (85-104) 02/23/17 18:06 ABG O2 Saturation 98 % (95-98) 02/23/17 18:06 PT/INR, D-dimer PT 29.1 Seconds (9.4-12.1) H 03/01/17 04:40 D-Dimer 1718 ng/mLFEU (0-500) H 02/23/17 16:24 Consult Discharge Plan - Plan Additional Instructions: appt at cancer center on mar 10 at 10:30 for chemo and mar 11 at 2:00 for an injection Referrals: Niesha Cherry MD [Partnered Physician] - 03/04/17 1:20 pm Christoph Hughes DO [Primary Care Provider] -
--- NOTE | 2017-03-01 16:09 | Pulmonology Progress Note ---
Date of Encounter: 03/01/17 Time of Encounter: 15:30 Assessment and Plan (1) Acute and chronic respiratory failure Current Visit: No Status: Chronic Patient with cardiopulmonary diseases and with a recent diagnosis of lung cancer , combination of all makes the prognosis is poor. Keep SPO2 around 90% and titrate FiO2 according to that. Qualifiers: Respiratory failure complication: hypoxia and hypercapnia Qualified Code(s) : J96.21 - Acute and chronic respiratory failure with hypoxia; J96.22 - Acute and chronic respiratory failure with hypercapnia (2) COPD (chronic obstructive pulmonary disease) Current Visit: Yes Status: Chronic Continue bronchodilators and patient had questions about using rescue inhalers and I explained to her to use it. Qualifiers: COPD type: COPD with acute exacerbation Qualified Code(s): J44.1 - Chronic obstructive pulmonary disease with (acute) exacerbation (3) Adenocarcinoma of lung Current Visit: No Status: Chronic This is will be treated as outpatient. Qualifiers: Laterality: right Qualified Code(s): C34.91 - Malignant neoplasm of unspecified part of right bronchus or lung Subjective Principal diagnosis: Respiratory Failure Interval history: Patient continued to have issues with her heart rate and fluid retention, overall her breathing is stable Objective PUL Vital signs: Last Vital Signs Temp 98.5 F 03/01/17 15:55 Pulse 78 03/01/17 15:55 Resp 16 03/01/17 15:55 BP 131/82 03/01/17 15:55 Pulse Ox 93 03/01/17 15:55 General appearance: no acute distress Eyes: nonicteric ENT: oropharynx moist Neck: supple Effort: mildly labored Auscultation: bilateral: rhonchi Percussion: bilateral: not dull Cardiovascular: irregular rhythm, murmur noted Gastrointestinal: normoactive bowel sounds, non-distended Extremities: edema normal mental status, non-focal exam mood appropriate Results - Laboratory Findings CBC and BMP: 02/28/17 03:51 02/28/17 03:51 ABG ABG pH 7.46 pH Units (7.32-7.45) H 02/23/17 18:06 ABG pCO2 37 mmHg (35-45) 02/23/17 18:06 ABG pO2 92 mmHg (85-104) 02/23/17 18:06 ABG O2 Saturation 98 % (95-98) 02/23/17 18:06 PT/INR, D-dimer PT 29.1 Seconds (9.4-12.1) H 03/01/17 04:40 D-Dimer 1718 ng/mLFEU (0-500) H 02/23/17 16:24 Abnormal lab findings: Abnormal lab results MCV 82.3 fL (83.0-100.0) L 02/28/17 03:51 MCH 25.1 pg (28.0-33.3) L 02/28/17 03:51 MCHC 30.5 g/dL (31.6-35.5) L 02/28/17 03:51 RDW 17.0 % (11.5-14.5) H 02/28/17 03:51 PT 29.1 Seconds (9.4-12.1) H 03/01/17 04:40 APTT 55.5 Seconds (26.0-36.0) H 02/23/17 16:24 D-Dimer 1718 ng/mLFEU (0-500) H 02/23/17 16:24 ABG pH 7.46 pH Units (7.32-7.45) H 02/23/17 18:06 ABG Total CO2 27.4 mEq/L (20-26) H 02/23/17 18:06 Potassium 3.4 mEq/L (3.5-4.5) L 02/28/17 03:51 Carbon Dioxide 31 mEq/L (19-29) H 02/28/17 03:51 BUN 26 mg/dL (7-20) H 02/28/17 03:51 Est GFR (Non-Af Amer) 58 (> 60) L 02/28/17 03:51 BUN/Creatinine Ratio 27 (6-26) H 02/28/17 03:51 Calcium 8.5 mg/dL (8.6-10.8) L 02/28/17 03:51 Alkaline Phosphatase 131 Units/L (38-126) H 02/23/17 16:24 B-Natriuretic Peptide 245 pg/mL (0-100) H 02/23/17 16:24 Serum Total Protein 5.5 g/dL (6.0-8.3) L 02/23/17 16:24 Albumin 2.4 g/dL (3.5-5.0) L 02/23/17 16:24 Albumin/Globulin Ratio 0.8 (1.1-2.2) L 02/23/17 16:24 Procalcitonin 0.13 ng/mL (<=0.10) H 02/24/17 00:04 Ur Specific [place] > 1.030 (1.010-1.025) H 02/23/17 20:10 Ur Leukocyte Esterase Moderate (Negative) H 02/23/17 20:10 Urine Microscopic RBC 3-5 per hpf (0-3) H 02/23/17 20:10 Urine Microscopic WBC 3-5 per hpf (0-3) H 02/23/17 20:10 Ur Squamous Epith Cells Many per lpf (None-Few) H 02/23/17 20:10 Ur Culture Indicated? YES (NO) A 02/23/17 20:10 B-(1,3)-D-Glucan Intrp POSITIVE (Negative) A 02/26/17 09:10 - Microbiology Findings Microbiology Findings: Microbiology, Last 48 Hours 02/24/17 01:29 Blood Culture - Final Peripheral Venipuncture No growth. 02/24/17 01:29 Blood Culture - Final Peripheral Venipuncture No growth. 02/25/17 23:27 Sputum Culture - Final Sputum Gaby tropicalis - Clinical Findings Intake & Output: Intake & Output 03/01/17 03/01/17 03/01/17 07:59 15:59 23:59 Intake Total 800 / 800 360 / 360 Output Total 0 / 0 Balance 800 / 800 360 / 360 Weight 56.9 kg 56.9 kg Consult Discharge Plan - Plan Additional Instructions: appt at cancer center on mar 10 at 10:30 for chemo and mar 11 at 2:00 for an injection Referrals: Niesha Cherry MD [Partnered Physician] - 03/04/17 1:20 pm Christoph Hughes DO [Primary Care Provider] -
--- NOTE | 2017-03-01 17:14 | Electrocardiograph Report ---
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
[2017-03-01] MEDS ORDERED: *HR* Warfarin 5 MG TABLET PO ONE (18:00)
[2017-03-01] MEDS: Gabapentin 100 MG CAPSULE PO SCH (21:39)
[2017-03-01] MEDS: *HR* HYDROcodone/Acet 5/325 mg TABLET PO PRN (21:39)
[2017-03-02] MEDS: Ipratropium Neb 0.5 MG NEBULIZER IH SCH ×3 (04:13→16:27)
[2017-03-02 05:45] LABS: INR 3.1
[2017-03-02] MEDS ORDERED: predniSONE 20 MG TABLET PO SCH (09:00)
[2017-03-02] MEDS: Sennosides/Docusate Sodium TABLET PO SCH (09:51)
[2017-03-02] MEDS: Furosemide 40 MG TABLET PO SCH (09:52)
[2017-03-02] MEDS: Folic Acid 1 MG TABLET PO SCH (09:52)
[2017-03-02] MEDS: *HR* HYDROcodone/Acet 5/325 mg TABLET PO PRN (09:58)
--- NOTE | 2017-03-02 10:28 | Cardiology Progress Note ---
Date of Encounter: 03/02/17 Time of Encounter: 09:30 Assessment and Plan (1) PAF (paroxysmal atrial fibrillation) Current Visit: Yes Status: Acute Per cardiology: -History of PAF. -Sotalol increased to 120mg BID this admission. -Underlying pulmonary issues will make it difficult to maintain NSR. -ECG yesterday with SR, HR 67 Qt 514/ Qtc 530. Baseline QTC 459. -Sotalol was decreased back to previous dose of 80mg BID due to qtc prolongation. -ECG today with SR, HR 69, Qt 449, Qtc 466. -Patient currently SR with HR 70s. -ON coumadin for anticoagulation. -Recommend patient continue sotalol 80mg BID dose. -Can consider addition of low dose cardizem in outpatient setting. -Patient encouraged to call cardiology for elevated heart rates or worsening symptoms at home. -Cardiology will sign off and will follow in oupatient setting. Follow up set. -Can consider referral to EP, Dr.John Fierro in outpatient setting for further management/suggestions regarding atrial fibrillation. (2) CAD in [place] artery Current Visit: Yes Status: Acute Per cardiology: -[place] CAD, prior CABG. -Recommend continue statin. -Already on Coumadin for mechanical MV and AF with prior anemia issues. Hold aspirin for now. -Denies chest pain. -ECG with no ischemic changes. -Will continue to monitor in outpatient setting. (3) H/O mitral valve replacement with mechanical valve Current Visit: No Status: Chronic Per cardiology: -Mechanical MV. -Recommend continue coumadin with goal INR 2.5 to 3.5. -INR 3.1 today. -Will continue to monitor in outpatient setting. Discussion w patient/family: The assessment and plan as outlined above was discussed with the patient and/or family members who expressed understanding and agreement. All questions were answered. Thank you for involving us in the care of your patient. Please call with any questions. Discussed and reviewed with . Subjective Principal diagnosis: Respiratory Failure Interval history: Patient states she feels somewhat better today. Patient denies chest pain, admits to shortness of breath, however states improving. Patient denies palpitations or fluttering. Objective Vital Signs, Last 4 Hours Temp Pulse Resp BP Pulse Ox 03/02/17 07:46 97.9 F 77 17 129/64 94 General: Conversant, No Apparent Distress HEENT: Atraumatic, Normocephaly, Mucus Membranes Moist Neck: No JVD, Normal carotid pulses Cardiac: Reg Rate and Rhythm, Normal S1 and S2, No Murmur Lungs: Other (Expiratory wheezes noted throughout. ) Neuro: Alert and responsive, No focal deficits noted Abdomen: Soft, Non-Tender Skin: No rashes noted on visualized skin Musculoskeletal: No Chest Wall Tenderness Extremities: No Clubbing, No Cyanosis, Normal Pulses, Other (Mild bilateral pedal edema noted, non-pitting. ) Results 02/28/17 03:51 02/28/17 03:51 Lab Results Active Medications Acetaminophen (Tylenol) 650 mg PO Q6HR PRN PRN Reason: Pain Stop: 08/26/17 14:33 Last Admin: 02/24/17 15:33 Dose: 650 mg Hydrocodone Bitart/Acetaminophen ([place] 5-325 Mg) 1 tab PO Q4HR PRN PRN Reason: Severe Pain (7-10) Stop: 08/26/17 20:19 Last Admin: 03/02/17 09:58 Dose: 1 tab Acetylcysteine (Acetylcysteine 10%) 2 ml IH [id number] CAYLA Stop: 08/27/17 16:16 Last Admin: 03/01/17 23:34 Dose: Not Given Albuterol Sulfate (Proventil Neb) 2.5 mg IH [id number] PRN; Protocol PRN Reason: Shortness Of Breath Stop: 08/26/17 00:01 Last Admin: 03/01/17 16:08 Dose: 2.5 mg Allopurinol (Zyloprim) 100 mg PO DAILY CAYLA Stop: 08/26/17 09:01 Last Admin: 03/02/17 09:52 Dose: 100 mg Atorvastatin Calcium (Lipitor) 10 mg PO HS CAYLA Stop: 08/26/17 21:01 Last Admin: 03/01/17 21:39 Dose: 10 mg Budesonide/Formoterol Fumarate (Symbicort) 2 puff IH BIDRESP CAYLA PRN Reason: Protocol Stop: 08/25/17 22:01 Last Admin: 03/01/17 23:30 Dose: 2 puff Folic Acid (Folic Acid) 1 mg PO DAILY CAYLA Stop: 08/27/17 09:01 Last Admin: 03/02/17 09:52 Dose: 1 mg Furosemide (Lasix) 40 mg PO BIDDIURETIC CAYLA Stop: 08/29/17 08:01 Last Admin: 03/02/17 09:52 Dose: 40 mg Gabapentin (Neurontin) 200 mg PO HS CAYLA Stop: 08/26/17 21:01 Last Admin: 03/01/17 21:39 Dose: 200 mg Ipratropium [place] (Atrovent Neb) 0.5 mg IH QIDR CAYLA Stop: 08/28/17 17:01 Last Admin: 03/02/17 04:13 Dose: 0.5 mg Montelukast Sodium (Singulair) 10 mg PO DAILY CAYLA Stop: 08/26/17 09:01 Last Admin: 03/02/17 09:52 Dose: 10 mg Naloxone HCl (Narcan) 0.4 mg IVP Q2MIN PRN PRN Reason: Opioid Reversal Stop: 08/25/17 21:07 Omeprazole (Prilosec) 40 mg PO DAILY [facility] Stop: 08/26/17 09:01 Last Admin: 03/02/17 09:53 Dose: 40 mg Prednisone (Prednisone) 60 mg PO DAILY [facility] Stop: 09/01/17 09:01 Last Admin: 03/02/17 09:51 Dose: 60 mg Senna/Docusate Sodium (Senna Plus) 2 each PO BID CAYLA PRN Reason: Protocol Stop: 08/26/17 09:01 Last Admin: 03/02/17 09:51 Dose: 1 each Sotalol HCl (Betapace) 80 mg PO Q12HR [facility] Stop: 08/31/17 18:01 Last Admin: 03/02/17 05:31 Dose: 80 mg Warfarin Sodium (Coumadin Perpt) 1 each PO DAILY@1800 PRN PRN Reason: SEE COMMENTS Stop: 08/27/17 18:01 Laboratory Tests 02/28/17 03/02/17 03:51 05:28 WBC 8.6 INR 3.1 - Imaging and Cardiology Chest Xray: report reviewed Echo: report reviewed - EKG Interpretation EKG results cardiology: other (Telemetry reviewed with average HR previous 12 hours noted to be 75, sinus rhythm. PVCs, couplets, and PACs noted.) Consult Discharge Plan - Plan Additional Instructions: appt at cancer center on mar 10 at 10:30 for chemo and mar 11 at 2:00 for an injection Referrals: Niesha Cherry MD [Partnered Physician] - 03/04/17 1:20 pm Christoph Hughes, [Primary Care Provider] -
[2017-03-02] MEDS: Budesonide/Formoterol 160/4.5 MDI IH SCH (10:41)
[2017-03-02] MEDS: Acetylcysteine 10% 2 ML INHSOL IH SCH ×2 (10:41→16:27)
--- NOTE | 2017-03-02 13:29 | Discharge Summary ---
Date of Encounter: 03/02/17 Time of Encounter: 10:45 - Discharge Diagnosis (1) Acute on chronic respiratory failure with hypoxemia Priority: Primary Status: Acute (2) Atrial fibrillation Priority: Secondary Status: Chronic Qualifiers: Atrial fibrillation type: paroxysmal Qualified Code(s): I48.0 - Paroxysmal atrial fibrillation (3) Hypertension Priority: Secondary Status: Chronic Qualifiers: Hypertension type: essential hypertension Qualified Code(s): I10 - Essential (primary) hypertension (4) COPD (chronic obstructive pulmonary disease) Priority: Secondary Status: Chronic Qualifiers: COPD type: COPD with acute exacerbation Qualified Code(s): J44.1 - Chronic obstructive pulmonary disease with (acute) exacerbation (5) H/O mitral valve replacement with mechanical valve Priority: Secondary Status: Chronic (6) Adenocarcinoma of lung Priority: Secondary Status: Chronic Qualifiers: Laterality: right Qualified Code(s): C34.91 - Malignant neoplasm of unspecified part of right bronchus or lung (7) Diastolic CHF Priority: Secondary Status: Chronic Qualifiers: Congestive heart failure chronicity: chronic Qualified Code(s): I50.32 - Chronic diastolic (congestive) heart failure - Discharge Medications Prescriptions: HYDROcodone/Acet 5/325 mg [[place] 5-325 mg] 1 tab PO Q4HR PRN #14 tab PRN Reason: Severe Pain (7-10) Acetylcysteine 10% 2 ml IH Q8H #90 inhsol Folic Acid 1 mg PO DAILY #30 tablet predniSONE [PredniSONE] 20 mg PO AD #20 tablet Sennosides/Docusate Sodium [Senna Plus] 2 each PO BID #90 tab Home Medications: Albuterol Sulfate [Albuterol Inhaler] 1 - 2 puff IH Q4HR PRN 11/24/15 [History] Allopurinol [Zyloprim 100 MG] 100 mg PO DAILY 11/24/15 [History] Budesonide/Formoterol 160/4.5 [Symbicort 160/4.5] 2 puff IH BIDR 11/24/15 [ History] Calcium Carbonate [Calcium] 500 mg PO BID 11/24/15 [History] Cholecalciferol (D-3) [Vitamin D] 2,000 unit PO DAILY 11/24/15 [History] Fluticasone Propionate Nasal [Flonase] 1 spray NS DAILY 11/24/15 [History] Gabapentin [Neurontin] 200 mg PO HS 11/24/15 [History] Loratadine [Claritin] 10 mg PO DAILY 11/24/15 [History] Montelukast [Singulair] 10 mg PO DAILY 11/24/15 [History] Nitroglycerin [Nitrostat] 0.4 mg SL Q5M PRN 11/24/15 [History] Nortriptyline [Pamelor] 10 mg PO HS 11/24/15 [History] Roflumilast [Daliresp] 500 mcg PO DAILY 11/24/15 [History] Vitamin B Complex [B Complex] 1 tab PO DAILY 11/24/15 [History] Umeclidinium [place] [Incruse Ellipta] 1 puff IH DAILY 12/17/15 [History] Atorvastatin [Lipitor] 10 mg PO HS 01/01/16 [History] Albuterol Neb [Proventil Neb] 2.5 mg IH Q4HR PRN 08/25/16 [History] Bifidobacterium Infantis [Align] 4 mg PO DAILY 08/25/16 [History] Oxygen 2 l IN CONT #1 each 08/26/16 [Rx] Esomeprazole Magnesium [Nexium] 40 mg PO DAILY #30 capsule. 10/03/16 [Rx] Furosemide [Lasix] 40 mg PO BID #60 tablet 10/03/16 [Rx] Potassium Chloride [K-Tab ER] 20 meq PO DAILY 02/01/17 [History] Sotalol [Betapace] 80 mg PO Q12H tab 02/11/17 [Rx] Acetylcysteine 10% 2 ml IH Q8H #90 inhsol 03/02/17 [Rx] Folic Acid 1 mg PO DAILY #30 tablet 03/02/17 [Rx] HYDROcodone/Acet 5/325 mg [[place] 5-325 mg] 1 tab PO Q4HR PRN #14 tab 03/02/17 [ Rx] Sennosides/Docusate Sodium [Senna Plus] 2 each PO BID #90 tab 03/02/17 [Rx] Warfarin [Coumadin] 5 mg PO DAILY #0 03/02/17 [Rx] predniSONE [PredniSONE] 20 mg PO AD #20 tablet 03/02/17 [Rx] Allergies/Adverse Reactions: 3 Allergy/AdvReac Type Severity Reaction Status Date / Time ceftriaxone Allergy Hives Verified 02/18/17 16:28 ciprofloxacin Allergy Hives Verified 02/18/17 16:28 levofloxacin Allergy Hives Verified 02/18/17 16:28 vancomycin Allergy Rash Verified 02/18/17 16:28 Procedures/tests Complete & Pending: Procedures Performed prior 72 hours Category Date Time Status ECG 12 lead ECG [ECG] AM 0600 Y 03/02/17 06:00 Completed ECG 12 lead ECG [ECG] AM 0600 Y 03/03/17 06:00 Ordered ECG 12 lead ECG [ECG] Routine Y 02/28/17 19:42 Completed ECG 12 lead ECG [ECG] Stat Y 02/28/17 15:31 Completed ECG 12 lead ECG [ECG] Stat Y 03/01/17 19:38 Completed Date of admission: 02/23/17 23:26 Primary care physician: Christoph Hughes Consults: 02/24/17 13:27 Consult to Pulmonology [CONS] Routine Consulting Provider: Pulm Crit Care & Sleep Jennifer Reason for Consult: pulm effusion Call Completed: No 02/24/17 13:29 Consult to Infectious Diseases [CONS] Routine Consulting Provider: Infectious Disease Jennifer Reason for Consult: pulm effusion Call Completed: No 02/25/17 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 [Consult to Nutrition] [CONS] Routine Comment: add an ensure with meals, least amt of vit K Consulting Provider: NUTRITION Reason for Dietary Consult: PO Supplementation 02/28/17 08:17 Consult to Cardiology [CONS] Routine Comment: Consulting Provider: Cardiology [place] Reason for Consult: A.Fib with RVR on Sotalol Call Completed: Yes Discharging clinician: Bill Patino Anticipated date of discharge: 03/02/17 - Patient Status Disposition: Home Health Service Condition: Fair Functional capacity at discharge: uses cane/walker Overall status at discharge: patient is not back to baseline - Discharge Instructions Follow Up With: Niesha Cherry MD [Partnered Physician] - 03/04/17 1:20 pm Christoph Hughes DO [Primary Care Provider] - Juan Jose Stephens DO [Partnered Physician] - Jose Siddiqi MD [Partnered Physician] - (1-2 weeks) Additional Instructions: appt at cancer center on mar 10 at 10:30 for chemo and sept 7th at 2:00 for an injection - Diet and Activity Activity: increase activity as tolerated, resume usual activities as tolerated Diet: advance to your usual diet Hospital course: Ms. Dewitt is a 71 year old female with a history of recently diagnosed stage IV adenocarcinoma, COPD, diastolic CHF, coronary artery disease, atrial fibrillation presented to the emergency department due to shortness of breath. The patient was recently discharged from the hospital after treatment for MSSA postobstructive pneumonia due to lung cancer. She was admitted with a diagnosis of CHF and COPD exacerbation causing acute on chronic respiratory failure with hypoxia. She was given intravenous Lasix. She was placed on intravenous steroids. Palliative care, oncology, pulmonology were consulted. It was recommended by oncology that the patient have biopsy of a left adrenal mass which was found during the current admission. For this reason, her Coumadin was held. After the biopsy, the patient was placed on Lovenox and her Coumadin was resumed as the patient has a mechanical mitral valve. She was also elevated by infectious disease. There was a suspicion for fungal pneumonia. The patient had cultures sent for the same. Pulmonology was following the patient and the patient's respiratory status improved marginally with conservative management. Her steroids were tapered. The patient was continued on sotalol 80 mg twice a day for her atrial fibrillation. However, even though the patient was staying in sinus rhythm for most of the time, she was having episodes of atrial fibrillation with rapid ventilatory response. Hence, cardiology was consulted. Her sotalol was increased to 120 mg by mouth twice a day. However, the patient experienced prolonged additional for QT interval. Hence, sotalol was reduced back to 80 mg twice a day by mouth. The patient has remained in sinus rhythm on this regimen. Cardiology has signed off and cleared the patient from discharge from their standpoint on 80 mg twice a day of sotalol with instructions to follow-up as an outpatient. The patient is supposed to follow up with pulmonology as an outpatient for results of fungal cultures to determine if she requires antifungal antibiotic therapy. The patient is also to follow up with oncology as an outpatient to follow up on the results of adrenal biopsy and the neurological marker testing to determine if the patient would benefit from chemotherapy/immunotherapy. The patient required 5 L of oxygen to maintain her saturations. She has been qualified at this higher rate of oxygen supplementation. A prescription has been provided for the same. The patient has been deemed stable to be discharged home today. - Time Spent with Patient Total time spent providing and/or coordinating discharge services: Greater than 30 minutes (45 min) - Constitutional Vitals: Temp Pulse Resp BP Pulse Ox 97.9 F 77 20 129/64 80 03/02/17 07:46 03/02/17 07:46 03/02/17 10:44 03/02/17 07:46 03/02/17 11:00 Exam: Gen.: Sitting in bed. No acute distress. Chest: Clear to auscultation bilaterally. No adventitious sounds present. CVS: First and second heart sounds present. No murmurs, rubs or gallops.
--- NOTE | 2017-03-02 13:38 | Physician Discharge Referral ---
Home Health/Hosp Referral Info Transfer to: Home Health (O.P. Palliative care referral) Attending Provider: Dr. Bill Patino Provider in Charge Post Discharge: PCP - Diagnosis (1) Acute on chronic respiratory failure with hypoxemia Priority: Primary Status: Acute (2) Atrial fibrillation Priority: Secondary Status: Chronic (3) Hypertension Priority: Secondary Status: Chronic (4) COPD (chronic obstructive pulmonary disease) Priority: Secondary Status: Chronic (5) H/O mitral valve replacement with mechanical valve Priority: Secondary Status: Chronic (6) Adenocarcinoma of lung Priority: Secondary Status: Chronic (7) Diastolic CHF Priority: Secondary Status: Chronic - Respiratory Orders Oxygen / L per min (5) Smoking Cessation: Smoking cessation has been advised. For more information, call the [place] Tobacco Quit Line at 5-533-GVYQ-NOW. - Diet/Nutrition Diet/Nutrition Orders: Regular - Activity Activity Orders: Chair, Walker - Services Needed Following services are medically necessary services: Nursing, Home Health Aide - Transfer Medications Prescriptions: HYDROcodone/Acet 5/325 mg [[place] 5-325 mg] 1 tab PO Q4HR PRN #14 tab PRN Reason: Severe Pain (7-10) Acetylcysteine 10% 2 ml IH Q8H #90 inhsol Folic Acid 1 mg PO DAILY #30 tablet predniSONE [PredniSONE] 20 mg PO AD #20 tablet Sennosides/Docusate Sodium [Senna Plus] 2 each PO BID #90 tab Home Medications: Albuterol Sulfate [Albuterol Inhaler] 1 - 2 puff IH Q4HR PRN 11/24/15 [History] Allopurinol [Zyloprim 100 MG] 100 mg PO DAILY 11/24/15 [History] Budesonide/Formoterol 160/4.5 [Symbicort 160/4.5] 2 puff IH BIDR 11/24/15 [ History] Calcium Carbonate [Calcium] 500 mg PO BID 11/24/15 [History] Cholecalciferol (D-3) [Vitamin D] 2,000 unit PO DAILY 11/24/15 [History] Fluticasone Propionate Nasal [Flonase] 1 spray NS DAILY 11/24/15 [History] Gabapentin [Neurontin] 200 mg PO HS 11/24/15 [History] Loratadine [Claritin] 10 mg PO DAILY 11/24/15 [History] Montelukast [Singulair] 10 mg PO DAILY 11/24/15 [History] Nitroglycerin [Nitrostat] 0.4 mg SL Q5M PRN 11/24/15 [History] Nortriptyline [Pamelor] 10 mg PO HS 11/24/15 [History] Roflumilast [Daliresp] 500 mcg PO DAILY 11/24/15 [History] Vitamin B Complex [B Complex] 1 tab PO DAILY 11/24/15 [History] Umeclidinium [place] [Incruse Ellipta] 1 puff IH DAILY 12/17/15 [History] Atorvastatin [Lipitor] 10 mg PO HS 01/01/16 [History] Albuterol Neb [Proventil Neb] 2.5 mg IH Q4HR PRN 08/25/16 [History] Bifidobacterium Infantis [Align] 4 mg PO DAILY 08/25/16 [History] Oxygen 2 l IN CONT #1 each 08/26/16 [Rx] Esomeprazole Magnesium [Nexium] 40 mg PO DAILY #30 capsule. 10/03/16 [Rx] Furosemide [Lasix] 40 mg PO BID #60 tablet 10/03/16 [Rx] Potassium Chloride [K-Tab ER] 20 meq PO DAILY 02/01/17 [History] Sotalol [Betapace] 80 mg PO Q12H tab 02/11/17 [Rx] Acetylcysteine 10% 2 ml IH Q8H #90 inhsol 03/02/17 [Rx] Folic Acid 1 mg PO DAILY #30 tablet 03/02/17 [Rx] HYDROcodone/Acet 5/325 mg [[place] 5-325 mg] 1 tab PO Q4HR PRN #14 tab 03/02/17 [ Rx] Sennosides/Docusate Sodium [Senna Plus] 2 each PO BID #90 tab 03/02/17 [Rx] Warfarin [Coumadin] 5 mg PO DAILY #0 03/02/17 [Rx] predniSONE [PredniSONE] 20 mg PO AD #20 tablet 03/02/17 [Rx] Allergies/Adverse Reactions: 3 Allergy/AdvReac Type Severity Reaction Status Date / Time ceftriaxone Allergy Hives Verified 02/18/17 16:28 ciprofloxacin Allergy Hives Verified 02/18/17 16:28 levofloxacin Allergy Hives Verified 02/18/17 16:28 vancomycin Allergy Rash Verified 02/18/17 16:28 Certification: Further, I certify that my clinical findings support that this patient is homebound (i.e. absences from home require considerable and taxing effort and are for medical reasons or voodoo services or infrequently or short duration when for other reasons) because: Homebound Reason: Patient requires assistance of a person or device to safely leave home, Leaving home requires considerable and taxing effort due to condition, Severity of cardiac or pulmonary status limits activity tolerance Attestation: My signature below is to certify that this patient is under my care and that I, or nurse practitioner, or a physician's payroll human resources assistant working with me, has a face-to -face encounter with this patient.
--- NOTE | 2017-03-02 16:13 | Electrocardiograph Report ---
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
[2017-03-02 16:14] VITALS: BP 139/79
--- NOTE | 2017-03-02 17:06 | Electrocardiograph Report ---
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
--- NOTE | 2017-03-02 17:09 | Electrocardiograph Report ---
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
[2017-03-02] MEDS ORDERED: *HR* Warfarin 2.5 MG TABLET PO ONE (18:00)
--- NOTE | 2017-03-03 16:35 | Electrocardiograph Report ---
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
== END 2017-03-02 17:41 | disposition home health service (06) | DRG 190 ==
LOC: EMEROO 14:07 → 2NENU 14:07 → SUATTDRO 23:26
PROVIDERS: ADMIT Internal Medicine Hematology & Oncology; ATTEND Internal Medicine Sleep Medicine

== ENCOUNTER 2017-03-06 13:47 | Inpatient (IN) ==
--- NOTE | 2017-03-06 14:08 | Emergency Department Note ---
Disposition Clinical Impression: Atrial fibrillation with rapid ventricular response Disposition: Admitted As Inpatient Condition: Fair Arrhythmia/Palpitations HPI - General Chief Complaint: ED Arrhythmia/Palpitations Stated Complaint: been in and out of a fib// Dr. Feirro sent Time Seen by Provider: 03/06/17 13:56 Source: patient Mode of arrival: private vehicle Limitations: no limitations Nursing Notes Reviewed: Yes Vital Signs Reviewed: Yes - History of Present Illness HPI Narrative: 71-year-old female history of paroxysmal atrial fibrillation, COPD, newly diagnosed lung cancer who presents to the ER due to A. fib. Patient states she started getting short of breath last night. She states it feels like when she is in A. fib. They called her power regulator today who told her to come to the ER for evaluation. Family reports her heart rate has been in the 120s to 130s at home. She denies chest pain, dizziness, lightheadedness, nausea, vomiting. Has experienced worsening shortness of breath. Reports she wears 5 L nasal cannula at home. She was just recently hospitalized and discharged on steroids. She reports prior medications of amiodarone and Cardizem without improvement of her A. fib. I reviewed her last inpatient note showing they attempted to titrate sotalol but her QTC was prolonged she was placed on 80 mg twice a day. Denies any history of DVT or PE. Has not received chemotherapy for lung cancer today. No other complaints. Pt Subjective Complaint: palpitations Onset (ago): day(s) Duration: constant Severity: moderate Context: occurred during rest Arrhythmia History: atrial fibrillation Associated symptoms: Reports: shortness of breath. Denies: chest pain, syncope , near-syncope, nausea, vomiting - Related Data Home Medications Medication Instructions Recorded Confirmed Albuterol Sulfate [Albuterol 1 - 2 puff IH Q4HR PRN 11/24/15 03/06/17 Inhaler] Allopurinol [Zyloprim 100 MG] 100 mg PO DAILY 11/24/15 03/06/17 Budesonide/Formoterol 160/4.5 2 puff IH BIDR 11/24/15 03/06/17 [Symbicort 160/4.5] Calcium Carbonate [Calcium] 500 mg PO BID 11/24/15 03/06/17 Cholecalciferol (D-3) [Vitamin D] 2,000 unit PO DAILY 11/24/15 03/06/17 Fluticasone Propionate Nasal 1 spray NS DAILY 11/24/15 03/06/17 [Flonase] Gabapentin [Neurontin] 200 mg PO HS 11/24/15 03/06/17 Loratadine [Claritin] 10 mg PO DAILY 11/24/15 03/06/17 Montelukast [Singulair] 10 mg PO DAILY 11/24/15 03/06/17 Nitroglycerin [Nitrostat] 0.4 mg SL Q5M PRN 11/24/15 03/06/17 Nortriptyline [Pamelor] 10 mg PO HS 11/24/15 03/06/17 Roflumilast [Daliresp] 500 mcg PO DAILY 11/24/15 03/06/17 Vitamin B Complex [B Complex] 1 tab PO DAILY 11/24/15 03/06/17 Umeclidinium [place] [Incruse 1 puff IH DAILY 12/17/15 03/06/17 Ellipta] Atorvastatin [Lipitor] 10 mg PO HS 01/01/16 03/06/17 Albuterol Neb [Proventil Neb] 2.5 mg IH Q4HR PRN 08/25/16 03/06/17 Bifidobacterium Infantis [Align] 4 mg PO DAILY 08/25/16 03/06/17 Potassium Chloride [K-Tab ER] 20 meq PO DAILY 02/01/17 03/06/17 Enoxaparin [Lovenox] 60 mg SQ Q12HR 03/06/17 03/06/17 predniSONE [PredniSONE] See Taper PO AD 03/06/17 03/06/17 Previous Rx's Medication Instructions Recorded Oxygen 2 l IN CONT #1 each 08/26/16 Esomeprazole Magnesium [Nexium] 40 mg PO DAILY #30 capsule. 10/03/16 Furosemide [Lasix] 40 mg PO BID #60 tablet 10/03/16 Sotalol [Betapace] 80 mg PO Q12H tab 02/11/17 Acetylcysteine 10% 2 ml IH Q8H #90 inhsol 03/02/17 Folic Acid 1 mg PO DAILY #30 tablet 03/02/17 HYDROcodone/Acet 5/325 mg [[place] 1 tab PO Q4HR PRN #14 tab 03/02/17 5-325 mg] Sennosides/Docusate Sodium [Senna 2 each PO BID #90 tab 03/02/17 Plus] Warfarin [Coumadin] 5 mg PO DAILY #0 03/02/17 Allergies Allergy/AdvReac Type Severity Reaction Status Date / Time ceftriaxone Allergy Hives Verified 02/18/17 16:28 ciprofloxacin Allergy Hives Verified 02/18/17 16:28 levofloxacin Allergy Hives Verified 02/18/17 16:28 vancomycin Allergy Rash Verified 02/18/17 16:28 All systems ED: reviewed and negative except as stated. Constitutional: Denies: fever Cardiovascular: Reports: palpitations. Denies: chest pain Respiratory: Reports: cough, dyspnea Gastrointestinal: Denies: abdominal pain, nausea, vomiting, diarrhea Musculoskeletal: Denies: back pain, neck pain Past Medical History - Past Medical History Attestation: Yes The following information was validated with the patient. Source: patient Medical history: Reports: arthritis, atrial fibrillation, cancer, cardiomyopathy , CHF, COPD, fibromyalgia, hypertension, myocardial infarction, osteoporosis, RA , other Surgical history: Reports: angioplasty/stent, cholecystectomy, coronary bypass ( CABG), heart valve replacement, orthopedic, other Psychiatric history: Reports: no psych history - Social History Smoking Status: Former smoker Smokeless Tobacco Status: No Alcohol use: Reports: none Drug use: Reports: none Physical Exam - General Limitations: no limitations General appearance: alert, in no apparent distress - Head Head exam: atraumatic, normocephalic, normal inspection - Eye Eye exam: Present: normal appearance, EOMI - ENT ENT exam: normal exam - Neck Neck exam: Present: normal inspection, full ROM - Chest Chest inspection: Present: normal inspection, symmetric chest wall rise - Respiratory Respiratory exam: Present: wheezes (bilateral wheezing), prolonged expiratory phase. Absent: respiratory distress - Cardiovascular Cardiovascular exam: Present: tachycardia, irregular rhythm, normal heart sounds - Abdominal Exam Abdominal exam: Present: soft, Non-Tender. Absent: tenderness - Extremities Exam Extremities exam: Present: normal inspection, full ROM - Expanded Upper Extremity Exam Shoulder exam: Present: normal inspection, full ROM Arm exam: Present: normal inspection, full ROM Elbow exam: Present: normal inspection, full ROM Forearm/Wrist exam: Present: normal inspection, full ROM Hand exam: Present: normal inspection, full ROM Vascular exam: Normal: radial pulse - Expanded Lower Extremity Exam Hip/Pelvis exam: Present: normal inspection, full ROM Upper leg exam: Present: normal inspection, full ROM Knee exam: Present: normal inspection, full ROM Lower leg exam: Present: normal inspection, full ROM Ankle exam: Present: normal inspection, full ROM Foot/toe exam: Present: normal inspection, full ROM Neurovascular/Tendon exam: Absent: motor deficit, sensory deficit - Neurological Exam Neurological exam: Present: alert, other (GCS 15. Nonfocal neurologic exam. Moves all extremities equally.) - Psychiatric Psychiatric exam: Present: normal affect, normal mood - Skin Skin exam: Present: warm, dry, intact, normal color Course Course Narrative: Patient seen and examined. Tachycardic to 124 in triage. We will obtain EKG, chest x-ray as well as labs including INR, troponin and BNP. Patient will likely require rate control and admission for A. fib RVR. - Reevaluation(s) Reevaluation #1: I discussed results of imaging and lab work with the patient. Her heart rate is better controlled now on the low 100s with a stable blood pressure. She is accepted to the hospitalist service for A. fib RVR. Reevaluation #2: Hospital is called back requesting I speak with the power regulator on and make him aware that the patient is here. The power regulator has been paged. - Consultations Consultation #1: I spoke with the on-call power regulator at the request of the hospitalist. They are aware of the patient and a consult has been placed. Vital Signs Temperature 98.5 F 03/06/17 13:53 Pulse Rate 124 03/06/17 13:53 Respiratory Rate 18 03/06/17 13:53 Blood Pressure 84/63 03/06/17 13:53 O2 Sat by Pulse Oximetry 92 03/06/17 13:53 Temperature 98.5 F 03/06/17 13:53 Pulse Rate 108 03/06/17 14:55 Respiratory Rate 18 03/06/17 16:47 Blood Pressure 99/68 03/06/17 16:47 O2 Sat by Pulse Oximetry 91 03/06/17 15:49 Oxygen Delivery Oxygen Delivery Nasal Cannula Arrhythmia/Palpitations - [facility] Narrative Medical decision making narrative: 71-year-old female presents to the ER due to A. fib RVR. She has a history of poorly-controlled atrial fibrillation the past. She reports shortness of breath since last night otherwise no other symptoms. Denies any history of PE. She did have a CTA performed within the last month which was negative for pulmonary embolism. Her heart rate was initially in the 130s with hypotension. This is improved after Cardizem bolus and drip. Troponin is negative. Patient accepted to the hospitalist service. - Lab Data Lab results reviewed: Yes I reviewed the patient's lab results. Result diagrams: 03/06/17 14:20 03/06/17 14:20 Lab Results 03/06/17 03/06/17 03/06/17 Range/Units 14:20 14:20 14:20 WBC 12.9 H (4.3-11.1) K/mcL RBC 4.91 (3.82-4.97) M/mcL Hgb 12.5 (11.5-15.4) g/dL Hct 40.7 (35.3-44.9) % MCV 82.9 L (83.0-100.0) fL MCH 25.5 L (28.0-33.3) pg MCHC 30.7 L (31.6-35.5) g/dL RDW 17.4 H (11.5-14.5) % Plt Count 265 (140-400) K/mcL MPV 10.4 (9.4-12.4) fL Immature Gran % 1.4 (0-4) % Seg Neutrophils % 83.1 % Lymphocytes % 7.4 % Monocytes % 7.9 % Eosinophils % 0.0 % Basophils % 0.2 % Neutrophils # 10.7 H (1.6-8.9) K/mcL Lymphocytes # 1.0 (0.6-4.6) K/mcL Monocytes # 1.0 (0.0-1.3) K/mcL Eosinophils # 0.0 (0.0-0.6) K/mcL Basophils # 0.0 (0.0-0.2) K/mcL PT 35.5 H (9.4-12.1) Seconds INR 3.2 APTT 60.2 H (26.0-36.0) Seconds Sodium 142 (136-145) mEq/L Potassium 3.8 (3.5-4.5) mEq/L Chloride 102 (98-109) mEq/L Carbon Dioxide 32 H (19-29) mEq/L BUN 21 H (7-20) mg/dL Creatinine 0.81 (0.57-1.11) mg/dL Est GFR ( Amer) > 60 (> 60) Est GFR (Non-Af Amer) > 60 (> 60) BUN/Creatinine Ratio 26 (6-26) Glucose 137 H (70-99) mg/dL Calculated Osmolality 299 (280-300) Calcium 9.1 (8.6-10.8) mg/dL Troponin I (0-0.03) ng/mL TSH 3.068 (0.350-4.840) mcIU/mL 03/06/17 Range/Units 14:20 WBC (4.3-11.1) K/mcL RBC (3.82-4.97) M/mcL Hgb (11.5-15.4) g/dL Hct (35.3-44.9) % MCV (83.0-100.0) fL MCH (28.0-33.3) pg MCHC (31.6-35.5) g/dL RDW (11.5-14.5) % Plt Count (140-400) K/mcL MPV (9.4-12.4) fL Immature Gran % (0-4) % Seg Neutrophils % % Lymphocytes % % Monocytes % % Eosinophils % % Basophils % % Neutrophils # (1.6-8.9) K/mcL Lymphocytes # (0.6-4.6) K/mcL Monocytes # (0.0-1.3) K/mcL Eosinophils # (0.0-0.6) K/mcL Basophils # (0.0-0.2) K/mcL PT (9.4-12.1) Seconds INR APTT (26.0-36.0) Seconds Sodium (136-145) mEq/L Potassium (3.5-4.5) mEq/L Chloride (98-109) mEq/L Carbon Dioxide (19-29) mEq/L BUN (7-20) mg/dL Creatinine (0.57-1.11) mg/dL Est GFR ( Amer) (> 60) Est GFR (Non-Af Amer) (> 60) BUN/Creatinine Ratio (6-26) Glucose (70-99) mg/dL Calculated Osmolality (280-300) Calcium (8.6-10.8) mg/dL Troponin I 0.02 (0-0.03) ng/mL TSH (0.350-4.840) mcIU/mL - Radiology Data Radiology results reviewed: Yes I reviewed the patient's radiology results. Chest X-Ray 03/06/17 13:58 IMPRESSION: Stable chronic right lower lobe airspace disease unchanged from previous chest radiograph Small bilateral pleural effusions D/ / 03/06/2017 14:20:52 Gab Victor MD / ina Interpreting Provider: Gab Victor MD - EKG Data EKG attestation: Yes I reviewed and interpreted this EKG. EKG results narrative: EKG demonstrates atrial fibrillation with rapid ventricular response with a rate of 135. Normal axis. QRS duration 75 QTc 390. T-wave flattening in the lateral and inferior leads. No gross ST elevations or depressions. No acute ischemic findings. Changes from previous EKG and include atrial fibrillation with RVR. S.B.A.R. - S.B.A.R. Situation: Demographics, MOA Background: Presenting Complaint, Relevant PMH, Meds, & Allergies Assessment: Vital Signs, Course and respsone to treatment, Exam Concerns, Patient/Family Expectation, Pertinant Lab Results, Outstanding Labs Recommendation: Barrier(s) to disposition, Recommendation based on pending studies, treatments, or consults S.B.A.R. Report Given to: Brittany Aldana Repor Time: 16:12
[2017-03-06 14:31] LABS: Basophils % 0.2 %; Hematocrit 40.7 % (35.3-44.9); Hemoglobin 12.5 g/dL (11.5-15.4); Immature Granulocytes % 1.4 % (0-4); Lymphocytes % 7.4 %; Mean Corpuscular HGB Conc 30.7 g/dL (31.6-35.5); Mean Corpuscular Hemoglobin 25.5 pg (28.0-33.3); Mean Corpuscular Volume 82.9 fL (83.0-100.0); Mean Platelet Volume 10.4 fL (9.4-12.4); Monocytes % 7.9 %; Neutrophils # 10.7 K/mcL (1.6-8.9); Platelet Count 265 K/mcL (140-400); Red Blood Count 4.91 M/mcL (3.82-4.97); Red Cell Distribution Width 17.4 % (11.5-14.5); Segmented Neutrophils % 83.1 %
[2017-03-06 14:35] LABS: INR 3.2; Prothrombin Time 35.5 Seconds (9.4-12.1)
[2017-03-06 14:38] LABS: Activated Partial Thrombo Time 60.2 Seconds (26.0-36.0)
--- NOTE | 2017-03-06 14:43 | Emergency Department Note ---
Disposition Clinical Impression: Atrial fibrillation with rapid ventricular response Disposition: Admitted As Inpatient Condition: Fair General Adult HPI - General Chief complaint: ED Arrhythmia/Palpitations Stated complaint: been in and out of a fib// Dr. Fierro sent Time Seen by Provider: 03/06/17 13:56 Source: patient Mode of arrival: private vehicle Limitations: no limitations - History of Present Illness Pain Scale: 0 - Related Data Home Medications Medication Instructions Recorded Confirmed Albuterol Sulfate [Albuterol 1 - 2 puff IH Q4HR PRN 11/24/15 03/06/17 Inhaler] Allopurinol [Zyloprim 100 MG] 100 mg PO DAILY 11/24/15 03/06/17 Budesonide/Formoterol 160/4.5 2 puff IH BIDR 11/24/15 03/06/17 [Symbicort 160/4.5] Calcium Carbonate [Calcium] 500 mg PO BID 11/24/15 03/06/17 Cholecalciferol (D-3) [Vitamin D] 2,000 unit PO DAILY 11/24/15 03/06/17 Fluticasone Propionate Nasal 1 spray NS DAILY 11/24/15 03/06/17 [Flonase] Gabapentin [Neurontin] 200 mg PO HS 11/24/15 03/06/17 Loratadine [Claritin] 10 mg PO DAILY 11/24/15 03/06/17 Montelukast [Singulair] 10 mg PO DAILY 11/24/15 03/06/17 Nitroglycerin [Nitrostat] 0.4 mg SL Q5M PRN 11/24/15 03/06/17 Nortriptyline [Pamelor] 10 mg PO HS 11/24/15 03/06/17 Roflumilast [Daliresp] 500 mcg PO DAILY 11/24/15 03/06/17 Vitamin B Complex [B Complex] 1 tab PO DAILY 11/24/15 03/06/17 Umeclidinium [place] [Incruse 1 puff IH DAILY 12/17/15 03/06/17 Ellipta] Atorvastatin [Lipitor] 10 mg PO HS 01/01/16 03/06/17 Albuterol Neb [Proventil Neb] 2.5 mg IH Q4HR PRN 08/25/16 03/06/17 Bifidobacterium Infantis [Align] 4 mg PO DAILY 08/25/16 03/06/17 Potassium Chloride [K-Tab ER] 20 meq PO DAILY 02/01/17 03/06/17 Enoxaparin [Lovenox] 60 mg SQ Q12HR 03/06/17 03/06/17 predniSONE [PredniSONE] See Taper PO AD 03/06/17 03/06/17 Previous Rx's Medication Instructions Recorded Oxygen 2 l IN CONT #1 each 08/26/16 Esomeprazole Magnesium [Nexium] 40 mg PO DAILY #30 capsule. 10/03/16 Furosemide [Lasix] 40 mg PO BID #60 tablet 10/03/16 Sotalol [Betapace] 80 mg PO Q12H tab 02/11/17 Acetylcysteine 10% 2 ml IH Q8H #90 inhsol 03/02/17 Folic Acid 1 mg PO DAILY #30 tablet 03/02/17 HYDROcodone/Acet 5/325 mg [[place] 1 tab PO Q4HR PRN #14 tab 03/02/17 5-325 mg] Sennosides/Docusate Sodium [Senna 2 each PO BID #90 tab 03/02/17 Plus] Warfarin [Coumadin] 5 mg PO DAILY #0 03/02/17 Allergies Allergy/AdvReac Type Severity Reaction Status Date / Time ceftriaxone Allergy Hives Verified 02/18/17 16:28 ciprofloxacin Allergy Hives Verified 02/18/17 16:28 levofloxacin Allergy Hives Verified 02/18/17 16:28 vancomycin Allergy Rash Verified 02/18/17 16:28 Constitutional: Denies: fever Cardiovascular: Reports: palpitations. Denies: chest pain Respiratory: Reports: cough, dyspnea Gastrointestinal: Denies: abdominal pain, nausea, vomiting, diarrhea Musculoskeletal: Denies: back pain, neck pain Past Medical History - Past Medical History Medical history: Reports: arthritis, atrial fibrillation, cancer, cardiomyopathy , CHF, COPD, fibromyalgia, hypertension, myocardial infarction, osteoporosis, RA , other Surgical history: Reports: angioplasty/stent, cholecystectomy, coronary bypass ( CABG), heart valve replacement, orthopedic, other Psychiatric history: Reports: no psych history - Social History Smoking Status: Former smoker Smokeless Tobacco Status: No Alcohol use: Reports: none Drug use: Reports: none Physical Exam - General Limitations: no limitations General appearance: alert, in no apparent distress Course - Reevaluation(s) Reevaluation #1: I saw the patient with the resident, Dr. Lyons. patient presents with atrial fibrillation that she feels started last night. She has a history of same. On examination she is in atrial fibrillation with a rate between 1:30 and 140. Her blood pressure is 90 systolic. She says her normal blood pressure is in the low 100s but never usually in the 90s. Those weaker and more short of breath with exertion since slipping back into this atrial fibrillation. She has a recent diagnosis of lung cancer and is supposed to get her first chemotherapy on Wednesday. We will review the rate controlled and see if that brings the blood pressure back up. We will start her on [facility] area she will need to be admitted. Her INR is 3.2 at this time so we will need any other aggressive anticoagulation. Time: 14:43 Vital Signs Temperature 98.5 F 03/06/17 13:53 Pulse Rate 124 03/06/17 13:53 Respiratory Rate 18 03/06/17 13:53 Blood Pressure 84/63 03/06/17 13:53 O2 Sat by Pulse Oximetry 92 03/06/17 13:53 Temperature 98.3 F 03/06/17 17:49 Pulse Rate 119 03/06/17 17:49 Respiratory Rate 14 03/06/17 17:49 Blood Pressure 103/75 03/06/17 17:49 O2 Sat by Pulse Oximetry 91 03/06/17 17:49 Oxygen Delivery Oxygen Delivery Nasal Cannula Medical Decision Making - Lab Data Result diagrams: 03/06/17 14:20 03/06/17 14:20 Lab Results 03/06/17 03/06/17 03/06/17 Range/Units 14:20 14:20 14:20 WBC 12.9 H (4.3-11.1) K/mcL RBC 4.91 (3.82-4.97) M/mcL Hgb 12.5 (11.5-15.4) g/dL Hct 40.7 (35.3-44.9) % MCV 82.9 L (83.0-100.0) fL MCH 25.5 L (28.0-33.3) pg MCHC 30.7 L (31.6-35.5) g/dL RDW 17.4 H (11.5-14.5) % Plt Count 265 (140-400) K/mcL MPV 10.4 (9.4-12.4) fL Immature Gran % 1.4 (0-4) % Seg Neutrophils % 83.1 % Lymphocytes % 7.4 % Monocytes % 7.9 % Eosinophils % 0.0 % Basophils % 0.2 % Neutrophils # 10.7 H (1.6-8.9) K/mcL Lymphocytes # 1.0 (0.6-4.6) K/mcL Monocytes # 1.0 (0.0-1.3) K/mcL Eosinophils # 0.0 (0.0-0.6) K/mcL Basophils # 0.0 (0.0-0.2) K/mcL PT 35.5 H (9.4-12.1) Seconds INR 3.2 APTT 60.2 H (26.0-36.0) Seconds Sodium 142 (136-145) mEq/L Potassium 3.8 (3.5-4.5) mEq/L Chloride 102 (98-109) mEq/L Carbon Dioxide 32 H (19-29) mEq/L BUN 21 H (7-20) mg/dL Creatinine 0.81 (0.57-1.11) mg/dL Est GFR ( Amer) > 60 (> 60) Est GFR (Non-Af Amer) > 60 (> 60) BUN/Creatinine Ratio 26 (6-26) Glucose 137 H (70-99) mg/dL Calculated Osmolality 299 (280-300) Calcium 9.1 (8.6-10.8) mg/dL Troponin I (0-0.03) ng/mL TSH 3.068 (0.350-4.840) mcIU/mL 03/06/17 Range/Units 14:20 WBC (4.3-11.1) K/mcL RBC (3.82-4.97) M/mcL Hgb (11.5-15.4) g/dL Hct (35.3-44.9) % MCV (83.0-100.0) fL MCH (28.0-33.3) pg MCHC (31.6-35.5) g/dL RDW (11.5-14.5) % Plt Count (140-400) K/mcL MPV (9.4-12.4) fL Immature Gran % (0-4) % Seg Neutrophils % % Lymphocytes % % Monocytes % % Eosinophils % % Basophils % % Neutrophils # (1.6-8.9) K/mcL Lymphocytes # (0.6-4.6) K/mcL Monocytes # (0.0-1.3) K/mcL Eosinophils # (0.0-0.6) K/mcL Basophils # (0.0-0.2) K/mcL PT (9.4-12.1) Seconds INR APTT (26.0-36.0) Seconds Sodium (136-145) mEq/L Potassium (3.5-4.5) mEq/L Chloride (98-109) mEq/L Carbon Dioxide (19-29) mEq/L BUN (7-20) mg/dL Creatinine (0.57-1.11) mg/dL Est GFR ( Amer) (> 60) Est GFR (Non-Af Amer) (> 60) BUN/Creatinine Ratio (6-26) Glucose (70-99) mg/dL Calculated Osmolality (280-300) Calcium (8.6-10.8) mg/dL Troponin I 0.02 (0-0.03) ng/mL TSH (0.350-4.840) mcIU/mL Attestation Statement - Attestation Attestation: I, Dr. Tijerina, examined this patient [id number] and my medical decision- making was reviewed with the Resident Physician, Dr. Lyons. I agree with the documented findings, disposition and treatment plan as described except to the extent set forth below. Please see my progress notes for details.
[2017-03-06 14:44] LABS: BUN/Creatinine Ratio 26 (6-26); Blood Urea Nitrogen 21 mg/dL (7-20); Calcium 9.1 mg/dL (8.6-10.8); Carbon Dioxide 32 mEq/L (19-29); Chloride 102 mEq/L (98-109); Glucose 137 mg/dL (70-99); Osmolality,Calculated 299 (280-300); Potassium 3.8 mEq/L (3.5-4.5); Sodium 142 mEq/L (136-145); eGFR For African Americans > 60 (> 60); eGFR For Non-African Americans > 60 (> 60)
[2017-03-06] MEDS ORDERED: 0.9 % Sodium Chloride 250 ML IVC ONE (14:46)
[2017-03-06 15:06] LABS: Thyroid Stimulating Hormone 3.068 mcIU/mL (0.350-4.840)
[2017-03-06] MEDS ORDERED: Ipratropium/Albuterol Neb 3 ML IH ONE (15:23)
[2017-03-06] MEDS ORDERED: Nitroglycerin 0.4 MG TAB.SUBL SL PRN (18:23)
[2017-03-06] MEDS ORDERED: Naloxone 0.4 MG/ML INJ IVP PRN (18:29)
[2017-03-06] MEDS ORDERED: *HR* Morphine 2 MG/ML SYRINGE IVP PRN (18:29)
[2017-03-06] MEDS ORDERED: Acetaminophen 325 MG TABLET PO PRN (18:29)
[2017-03-06] MEDS ORDERED: Ondansetron 4 MG/2 ML VIAL IVP PRN (18:29)
[2017-03-06] MEDS ORDERED: D5% in Water 1,000 ML IVC PRN (18:47)
[2017-03-06] MEDS ORDERED: *HR* Dextrose 50 % in Water (Syg) 50 ML SYRINGE IVP PRN (18:47)
[2017-03-06] MEDS ORDERED: Dextrose Gel 15 GM PO PRN ×2 (18:47)
--- NOTE | 2017-03-06 18:54 | Internal Med History&Physical ---
<Kenneth Carrero - Last Filed: 03/06/17 21:44> Date of Encounter: 03/06/17 Time of Encounter: 16:00 Assessment and Plan (1) Atrial fibrillation with rapid ventricular response Current visit: Yes Status: Acute Patient presents with history of chronic paroxysmal atrial fibrillation and now presents with RVR during this admission. Initial troponin level on admission was 0.02. Patient reports that during previous admission amiodarone and Cardizem were used to control her HR which were ineffective. Patient also failed IV sotalol due to QT prolongation and was placed on PO sotalol on discharge. Cardiology consult ordered. Patient is currently on Cardizem drip per cardiology. Patient also placed on continuous cardiac telemetry and supplemental O2. Troponin to be trended x2. (2) Leukocytosis Current visit: Yes Status: Acute Patient presents with WBC of 12.9 on admission today. Patient was placed on PO outpatient steroid therapy during last admission last week for dyspnea which is most likely responsible for patient's current leukocytosis and hyperglycemia. Will monitor patient for signs of increasing WBC through follow-up labs and consider adding antibiotic coverage if infection is suspected or warranted. Qualifiers: Leukocytosis type: unspecified Qualified Code(s): D72.829 - Elevated white blood cell count, unspecified (3) Dyspnea Current visit: Yes Status: Acute Patient presents with acute dyspnea related to current acute exacerbation of COPD. Patient also reports recent diagnosis of lung cancer. DuoNebs ordered Q4 scheduled. Patient to be placed on supplemental O2 at 4L with titration if SpO2 <92%. Continuous SpO2 monitoring. Monitor patient and VS. CPAP ordered HS. ABGs ordered. Pulmonology consult ordered and discussed with Dr. Arteaga. Qualifiers: Dyspnea type: dyspnea on exertion Qualified Code(s): R06.09 - Other forms of dyspnea (4) Lung cancer Current visit: Yes Status: Acute Patient reports being recently diagnosed with lung cancer. 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 Patient is followed by Dr. Jeter and will need to follow up as outpatient. Qualifiers: Laterality: unspecified laterality Lung location: unspecified part of lung Qualified Code(s): C34.90 - Malignant neoplasm of unspecified part of unspecified bronchus or lung (5) CAD (coronary artery disease) Current visit: Yes Status: Chronic Patient presents with history of chronic coronary artery disease. No acute signs of angina present at this time. Will continue patient's home medications. Patient placed on continuous cardiac telemetry due to current A. fib with RVR. Qualifiers: Coronary Disease-Associated Artery/Lesion type: [place] artery Habematolel vs. transplanted heart: [place]ze heart Associated angina: without angina Qualified Code(s): I25.10 - Atherosclerotic heart disease of [place] coronary artery without angina pectoris (6) Diastolic CHF Current visit: Yes Status: Chronic Patient presents with history of chronic diastolic CHF. Patient is currently asymptomatic for CHF exacerbation versus acute exacerbation of COPD. Will continue patient's PO lasix daily. Qualifiers: Congestive heart failure chronicity: chronic Qualified Code(s): I50.32 - Chronic diastolic (congestive) heart failure (7) Hypertension Current visit: Yes Status: Chronic Patient presents with history of chronic hypertension. Patient has been hypotensive since admission today with latest BP at 96/84. Will monitor patient and VS and hold sotalol since patient is on cardizem drip currently. Qualifiers: Hypertension type: essential hypertension Qualified Code(s): I10 - Essential (primary) hypertension (8) HLD (hyperlipidemia) Current visit: Yes Status: Chronic Patient presents with history of chronic hyperlipidemia. Lipid panel ordered and will continue patient's Lipitor Qualifiers: Hyperlipidemia type: pure hypercholesterolemia Qualified Code(s): E78.00 - Pure hypercholesterolemia, unspecified; E78.0 - Pure hypercholesterolemia (9) DVT prophylaxis Current visit: Yes Status: Acute Patient to be placed on DVT prophylaxis due to current admission protocol and symptoms. Patient is currently on Warfarin daily and will be dosed through pharmacy. Per pharmacy, will hold patient's Warfarin due to current PT of 35.5, INR of 3.2, and APTT of 60.2. Bilateral SCDs to be placed on patient's LEs. Internal Medicine - H&P: HPI Chief complaint: Arrhythmia/Palpitations Admitted From: Emergency Dept Plans for Post Hospital Care: Home History of present illness: Ms. Dewitt is a 71 year old female who presents from the ED with chief complaint of heart arrhythmia and palpitations caused by atrial fibrillation with RVR. Patient reports she started to feel short of breath last night and felt it was the same as when her heart goes into Afib. She called her thermometer tester who told her to come to the ED. She states that her HR was >120 at home. Upon admission to the ED, patient's HR was 124. She states that she uses home O2 @ 5L. Patient denies nausea, vomiting, fever, chills, chest pain, DVT hx, PE hx, dizziness, lightheadedness, abdominal pain, changes in vision, pre-syncope, or syncope. Patient was hospitalized and discharged last week and sent home on PO steroids. During previous admission, they attempted to titrate sotalol but due to QT prolongation, she was discharged with 80 mg BID PO daily. She reports they attempted amiodarone and Cardizem which were ineffective. Patient was recently diagnosed with lung cancer and sees Dr. Jeter. She states that she has not started treatments yet. 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 Patient had angioplasty with 2 stents placed, CABG, and mitral valve replacement. Patient continues to have cough with production excessive sputum. Cardiology consult placed in ED and will need to address current RVR. Pulmonology consult ordered and discussed with Dr. Arteaga for current acute exacerbation of COPD. Patient is currently hemodynamically stable and in no acute distress. Time spent with patient and family >40 minutes. Past Med Surg Social Fam HX - Past Medical History Source: patient Medical history: arthritis, atrial fibrillation, cancer (Adenocarcinoma of the spine and adrenal gland), cardiomyopathy, CHF, COPD, fibromyalgia, hypertension , myocardial infarction, osteoporosis, RA, other Psychiatric history: no psych history - Past Surgical History Surgical History: angioplasty/stent, cholecystectomy, coronary bypass (CABG), heart valve replacement (Mitral valve), orthopedic, other - Social History Smoking Status: Former smoker Packs per day: 1.5 PPD - reports quitting 20 years ago Smokeless Tobacco Status: No Alcohol use: none Drug use: none Current living situation: Home, With Family Activity Level: Uses cane/walker Recent Out of Country Travel Within the Last 8 Weeks: No Exposure or Possible Exposure to Illness During Travel: No - Family History Father Race: Family Member Ethnicity: Non- Living Status: Age at : 61 Cause of : Lung cancer Hx Family Cardiac Disorders: Yes (VA, HTN, HD) Hx Family Cancer: Yes (Lung ) Mother Age: 63 Race: Family Member Ethnicity: Non- Living Status: Age at : 62 Cause of : Lung cancer Hx Family Cancer: Yes (Lung, bone) Brother Race: Family Member Ethnicity: Non- Living Status: Age at : 38 Cause of : VA Hx Family Cardiac Disorders: Yes (VA) Hx Family Psychosocial Disorders: Yes Internal Medicine - H&P: Meds Albuterol Sulfate [Albuterol Inhaler] 1 - 2 puff IH Q4HR PRN 11/24/15 [History] Allopurinol [Zyloprim 100 MG] 100 mg PO DAILY 11/24/15 [History] Budesonide/Formoterol 160/4.5 [Symbicort 160/4.5] 2 puff IH BIDR 11/24/15 [ History] Calcium Carbonate [Calcium] 500 mg PO BID 11/24/15 [History] Cholecalciferol (D-3) [Vitamin D] 2,000 unit PO DAILY 11/24/15 [History] Fluticasone Propionate Nasal [Flonase] 1 spray NS DAILY 11/24/15 [History] Gabapentin [Neurontin] 200 mg PO HS 11/24/15 [History] Loratadine [Claritin] 10 mg PO DAILY 11/24/15 [History] Montelukast [Singulair] 10 mg PO DAILY 11/24/15 [History] Nitroglycerin [Nitrostat] 0.4 mg SL Q5M PRN 11/24/15 [History] Nortriptyline [Pamelor] 10 mg PO HS 11/24/15 [History] Roflumilast [Daliresp] 500 mcg PO DAILY 11/24/15 [History] Vitamin B Complex [B Complex] 1 tab PO DAILY 11/24/15 [History] Umeclidinium [place] [Incruse Ellipta] 1 puff IH DAILY 12/17/15 [History] Atorvastatin [Lipitor] 10 mg PO HS 01/01/16 [History] Albuterol Neb [Proventil Neb] 2.5 mg IH Q4HR PRN 08/25/16 [History] Bifidobacterium Infantis [Align] 4 mg PO DAILY 08/25/16 [History] Oxygen 2 l IN CONT #1 each 08/26/16 [Rx] Esomeprazole Magnesium [Nexium] 40 mg PO DAILY #30 capsule. 10/03/16 [Rx] Furosemide [Lasix] 40 mg PO BID #60 tablet 10/03/16 [Rx] Potassium Chloride [K-Tab ER] 20 meq PO DAILY 02/01/17 [History] Sotalol [Betapace] 80 mg PO Q12H tab 02/11/17 [Rx] Acetylcysteine 10% 2 ml IH Q8H #90 inhsol 03/02/17 [Rx] Folic Acid 1 mg PO DAILY #30 tablet 03/02/17 [Rx] HYDROcodone/Acet 5/325 mg [[place] 5-325 mg] 1 tab PO Q4HR PRN #14 tab 03/02/17 [ Rx] Sennosides/Docusate Sodium [Senna Plus] 2 each PO BID #90 tab 03/02/17 [Rx] Warfarin [Coumadin] 5 mg PO DAILY #0 03/02/17 [Rx] Enoxaparin [Lovenox] 60 mg SQ Q12HR 03/06/17 [History] predniSONE [PredniSONE] See Taper PO AD 03/06/17 [History] 3 Allergy/AdvReac Type Severity Reaction Status Date / Time ceftriaxone Allergy Hives Verified 02/18/17 16:28 ciprofloxacin Allergy Hives Verified 02/18/17 16:28 levofloxacin Allergy Hives Verified 02/18/17 16:28 vancomycin Allergy Rash Verified 02/18/17 16:28 All Systems PM: A 10-system review of systems was performed and is negative for pertinent findings except as documented above in the HPI. - Constitutional Constitutional: no chills, no fever(s), no night sweats - EENT Eyes: no change in vision, no discharge, no pain, no photophobia Ears: no ear discharge, no ear pain, no tinnitus Nose, mouth and throat: no dysphagia, no nasal discharge, no neck pain, no sore throat - Breasts Breasts: as per HPI - Cardiovascular Cardiovascular ROS IM: dyspnea, dyspnea on exertion, irregular heart rhythm, no chest pain, no diaphoresis, no lightheadedness, no palpitations, no syncope - Respiratory Respiratory: as per HPI, cough, dyspnea, dyspnea on exertion, wheezing, excessive phlegm production, change in phlegm color - Gastrointestinal Gastrointestinal: no abdominal pain, no diarrhea, no hematemesis, no hematochezia, no melena, no nausea, no vomiting - Genitourinary Genitourinary: no change in urinary stream, no dysuria, no flank pain, no hematuria Menstruation: as per HPI - Musculoskeletal Musculoskeletal ROS IM: no numbness, no tingling - Integumentary Integumentary IM: no rash, no unusual bruising - Neurological Neurological ROS: no confusion, no convulsions, no focal weakness, no numbness, no tingling, no tremor(s) - Psychiatric Psychiatric: as per HPI - Endocrine Endocrine IM: as per HPI - Hematologic/Lymphatic Hematologic/Lymphatic: no easy bruising - Allergic/Immunologic Allergic/Immunologic: as per HPI - Constitutional Vitals: Temp Pulse Resp BP Pulse Ox 98.3 F 119 14 103/75 91 03/06/17 17:49 03/06/17 17:49 03/06/17 17:49 03/06/17 17:49 03/06/17 17:49 General appearance: Present: cooperative, mild distress, A&O X 3, pleasant, obese, answers questions appropriately - Eye Eye exam: Present: PERRL, conjuntiva pink, sclera anicteric Pupils: Present: PERRL - ENT ENT exam: Present: normal exam, normal external ear exam - Neck Neck exam general surgery: Present: normal inspection, supple, trachea midline. Absent: lymphadenopathy - Respiratory Respiratory exam: Present: accessory muscle use, decreased breath sounds, wheezes - Cardiovascular Cardiovascular exam: Present: irregular rhythm - GI/Abdominal GI/Abdominal exam: Present: normal bowel sounds, soft, no peritoneal signs. Absent: distended, tenderness - Rectal Rectal exam: Present: deferred - Additional comments: exam deferred. - Extremities Exam Extremities exam: Present: warm, radial pulses palpable and symmetrical. Absent : calf tenderness, cyanotic, pedal edema - Back Exam Back exam: Present: normal inspection - Neurological Exam Neurological exam: Present: CN II-XII intact, oriented X3, no focal deficits. Absent: pronater drift, facial droop, speech deficit - Psychiatric Psychiatric exam: Present: normal affect, normal mood - Skin Skin exam: Present: dry, intact Internal Med - H&P Results - Labs CBC & Chem 7: 03/06/17 14:20 03/06/17 14:20 - EKG Data Prior EKG available for review: yes When compared to previous EKG: there are significant changes EKG comments: 03/06/17 20:56 EKG dated 03/02/17 shows sinus rhythm with low QRS voltage in precordial leads. EKG dated 03/06/17 shows atrial fibrillation with rapid ventricular response, minimal ST depression, abnormal rhythm ECG. - Diagnostic Studies Chest x-ray Additional comments: Impressions Chest X-Ray 03/06/17 13:58 IMPRESSION: Stable chronic right lower lobe airspace disease unchanged from previous chest radiograph Small bilateral pleural effusions D/ / 03/06/2017 14:20:52 Gab Victor MD / ina Interpreting Provider: Gab Victor MD <NoelRichard - Last Filed: 03/07/17 03:02> Date of Encounter: 03/07/17 Internal Medicine - H&P: HPI History of present illness: Ms. Dewitt is a 71 year old female All Systems PM: A 10-system review of systems was performed and is negative for pertinent findings except as documented above in the HPI. - Constitutional Vitals: Temp Pulse Resp BP Pulse Ox 98.5 F 71 16 97/73 92 03/06/17 23:56 03/06/17 23:56 03/06/17 23:56 03/06/17 23:56 03/06/17 23:56 Internal Med - H&P Results - Labs CBC & Chem 7: 03/06/17 14:20 03/06/17 14:20 Labs: Cardiac Enzymes 03/06/17 Range/Units 21:48 Troponin I 0.02 (0-0.03) ng/mL - Attending Attestation I saw and examined this patient independently. I have discussed the with ESTHETICIAN Mr Carrero regarding the management plan. I have reviewed and agree with the documentation. Patient presented with A. fib with RVR. On Cardizem drip. When I saw patient, heart rate switched to sinus already. Vital signs stable. Will continue close loop monitor patient. Cardiac consult for further medication adjustment.
[2017-03-06] MEDS: Ipratropium/Albuterol Neb 3 ML IH SCH ×2 (19:47→23:08)
[2017-03-06] MEDS: Pantoprazole 40 MG VIAL IVP SCH (19:51)
[2017-03-06] MEDS ORDERED: *HR* Warfarin 2 MG TABLET PO ONE (20:57)
[2017-03-06] MEDS: Sennosides/Docusate Sodium TABLET PO SCH (22:46)
[2017-03-06] MEDS: Gabapentin 100 MG CAPSULE PO SCH (22:46)
[2017-03-06] MEDS: Furosemide 40 MG TABLET PO SCH (22:49)
[2017-03-06] MEDS: Insulin LISPRO 300 UNITS/3 ML VIAL SQ SCH (22:50)
[2017-03-06] MEDS: Acetylcysteine 10% 2 ML INHSOL IH SCH (23:08)
[2017-03-07] MEDS: Ipratropium/Albuterol Neb 3 ML IH SCH ×5 (04:37→21:05)
[2017-03-07 05:43] LABS: Basophils % 0.1 %; Hematocrit 39.1 % (35.3-44.9); Hemoglobin 11.8 g/dL (11.5-15.4); Immature Granulocytes % 1.4 % (0-4); Lymphocytes # 1.8 K/mcL (0.6-4.6); Lymphocytes % 14.7 %; Mean Corpuscular HGB Conc 30.2 g/dL (31.6-35.5); Mean Corpuscular Hemoglobin 24.7 pg (28.0-33.3); Mean Corpuscular Volume 81.8 fL (83.0-100.0); Mean Platelet Volume 9.8 fL (9.4-12.4); Monocytes # 1.3 K/mcL (0.0-1.3); Monocytes % 10.5 %; Platelet Count 246 K/mcL (140-400); Red Blood Count 4.78 M/mcL (3.82-4.97); Red Cell Distribution Width 17.2 % (11.5-14.5); Segmented Neutrophils % 73.3 %
[2017-03-07 05:50] LABS: INR 3.1; Prothrombin Time 34.1 Seconds (9.4-12.1)
[2017-03-07 05:52] LABS: Activated Partial Thrombo Time 43.1 Seconds (26.0-36.0)
[2017-03-07 05:58] LABS: BUN/Creatinine Ratio 24 (6-26); Blood Urea Nitrogen 20 mg/dL (7-20); Calcium 8.9 mg/dL (8.6-10.8); Carbon Dioxide 35 mEq/L (19-29); Chloride 100 mEq/L (98-109); Chol/HDL Ratio 3.7 (0-4.9); Cholesterol 184 mg/dL (< 200); Glucose 75 mg/dL (70-99); HDL Cholesterol 50 mg/dL (40-59); LDL Cholesterol,Calculated 84 mg/dL (0-99); Magnesium 1.7 mg/dL (1.6-2.6); Osmolality,Calculated 295 (280-300); Potassium 3.2 mEq/L (3.5-4.5); Sodium 142 mEq/L (136-145); Triglycerides 249 mg/dL (< 150); eGFR For African Americans > 60 (> 60); eGFR For Non-African Americans > 60 (> 60)
[2017-03-07] MEDS ORDERED: ENOXAPARIN 60 MG SQ SCH (06:00)
[2017-03-07] MEDS: Acetylcysteine 10% 2 ML INHSOL IH SCH ×2 (07:36→16:43)
[2017-03-07] MEDS: Insulin LISPRO 300 UNITS/3 ML VIAL SQ SCH ×4 (08:32→20:24)
[2017-03-07] MEDS: Folic Acid 1 MG TABLET PO SCH (08:39)
[2017-03-07] MEDS: Furosemide 40 MG TABLET PO SCH ×2 (08:39→16:29)
[2017-03-07] MEDS: Sennosides/Docusate Sodium TABLET PO SCH ×2 (08:39→20:22)
[2017-03-07] MEDS: Loratadine 10 MG TABLET PO SCH (08:39)
[2017-03-07] MEDS: (Roflumilast [Daliresp] 500 MCG) PO SCH (08:39)
[2017-03-07] MEDS: Pantoprazole 40 MG VIAL IVP SCH (08:39)
[2017-03-07] MEDS: Cholecalciferol (D-3) 1,000 UNIT TABLET PO SCH (08:39)
[2017-03-07] MEDS: (Bifidobacterium Infantis [Align] 4 MG) PO SCH (08:39)
[2017-03-07] MEDS: Fluticasone Propionate Nasal 50 MCG/SPRAY BOTTLE NS SCH (08:40)
[2017-03-07] MEDS: *HR* HYDROcodone/Acet 5/325 mg TABLET PO PRN ×2 (08:47→16:40)
--- NOTE | 2017-03-07 10:03 | Pulmonology Consult Note ---
Date of Encounter: 03/07/17 Time of Encounter: 08:35 Assessment and Plan (1) Acute and chronic respiratory failure Current Visit: No Status: Acute Patient has recently been discharged from the hospital and also she was seen in the office, even though her COPD have played a role in this hospitalization and was acute on chronic respiratory failure, however patient stated her breathing is worse and after she started to have palpitation which could be triggering by hypoxia. She has been treated multiple times with systemic steroid and they do not feel strongly this is a COPD exacerbation as an etiology, but primarily her A. fib RVR. Cardiology has seen the patient. Keep SPO2 around 90% and will have office staff to follow up with the [employer] company about her oxygen concentrator. Qualifiers: Respiratory failure complication: hypoxia Qualified Code(s): J96.21 - Acute and chronic respiratory failure with hypoxia (2) Chronic respiratory failure with hypoxia Current Visit: No Status: Chronic I do not feel this is a COPD exacerbation and presumed tear Symbicort and to continue her bronchodilators. I have explained this to the patient and also her family at the bedside. Overall prognosis is poor. (3) Atrial fibrillation with RVR Current Visit: No Status: Acute (4) Adenocarcinoma of lung Current Visit: No Status: Chronic Treatment has not been started yet Qualifiers: Laterality: right Qualified Code(s): C34.91 - Malignant neoplasm of unspecified part of right bronchus or lung History of Present Illness Consult date: 03/07/17 Requesting physician: Kenneth Carrero Reason for consult: COPD Chief complaint: Palpitation History of present illness: This is a pleasant 71-year-old female with multiple comorbidities mainly cardiopulmonary and she has been previously hospitalized multiple times for essentially the same diagnosis. Patient presented to the ED complaining of palpitation and she stated when she felt that her breathing became worse and was difficult for her to breathe and patient was found to have A. fib RVR and she is feeling somewhat better now with her heart rate and rate uncontrolled. Patient with advanced COPD and she is on long-term oxygen therapy. Recently she discharged from the hospital and she required 5 L/m that is what she is on at this time keeping her SPO2 around 90%. Patient denies any chest pain and wheezing as well as sputum production which is difficult for her to bring it out is about the same. She denies any hemoptysis. She was recently diagnosed with adenocarcinoma and has not started treatment yet. She was recently seen in the office for the oxygen qualification and she needed 3 L/m at that time. Past Med Surg Social Fam HX - Past Medical History Medical history: arthritis, atrial fibrillation, cancer (Adenocarcinoma of the spine and adrenal gland), cardiomyopathy, CHF, COPD, fibromyalgia, hypertension , myocardial infarction, osteoporosis, RA, other Psychiatric history: no psych history - Past Surgical History Surgical History: angioplasty/stent, cholecystectomy, coronary bypass (CABG), heart valve replacement (Mitral valve), orthopedic, other - Social History Smoking Status: Former smoker Packs per day: 1.5 PPD - reports quitting 20 years ago Smokeless Tobacco Status: No Alcohol use: none Drug use: none - Family History Father Age: 62 Race: Family Member Ethnicity: Non- Living Status: Age at : 61 Cause of : Lung cancer Hx Family Cardiac Disorders: Yes (DC, HTN, HD) Hx Family Respiratory Disorders: No Hx Family Cancer: Yes (Lung ) Hx Family GI Disorders: No Hx Family Endocrine Disorder: No Hx Family Neuromuscular Disorders: No Hx Family Neurologic Disorders: No Hx Family HEENT Disorders: No Hx Family Autoimmune Disorders: No Brother Race: Family Member Ethnicity: Non- Living Status: Age at : 38 Cause of : DC Hx Family Cardiac Disorders: Yes (DC) Hx Family Psychosocial Disorders: Yes Mother Age: 63 Race: Family Member Ethnicity: Non- Living Status: Age at : 62 Cause of : Lung cancer Hx Family Cardiac Disorders: No Hx Family Respiratory Disorders: Yes (COPD) Hx Family Cancer: Yes (Lung, bone) Hx Family GI Disorders: No Hx Family Endocrine Disorder: No Hx Family Neuromuscular Disorders: No Hx Family Neurologic Disorders: No Hx Family HEENT Disorders: No Hx Family Autoimmune Disorders: No Medications and Allergies Albuterol Sulfate [Albuterol Inhaler] 1 - 2 puff IH Q4HR PRN 11/24/15 [History] Allopurinol [Zyloprim 100 MG] 100 mg PO DAILY 11/24/15 [History] Budesonide/Formoterol 160/4.5 [Symbicort 160/4.5] 2 puff IH BIDR 11/24/15 [ History] Calcium Carbonate [Calcium] 500 mg PO BID 11/24/15 [History] Cholecalciferol (D-3) [Vitamin D] 2,000 unit PO DAILY 11/24/15 [History] Fluticasone Propionate Nasal [Flonase] 1 spray NS DAILY 11/24/15 [History] Gabapentin [Neurontin] 200 mg PO HS 11/24/15 [History] Loratadine [Claritin] 10 mg PO DAILY 11/24/15 [History] Montelukast [Singulair] 10 mg PO DAILY 11/24/15 [History] Nitroglycerin [Nitrostat] 0.4 mg SL Q5M PRN 11/24/15 [History] Nortriptyline [Pamelor] 10 mg PO HS 11/24/15 [History] Roflumilast [Daliresp] 500 mcg PO DAILY 11/24/15 [History] Vitamin B Complex [B Complex] 1 tab PO DAILY 11/24/15 [History] Umeclidinium [place] [Incruse Ellipta] 1 puff IH DAILY 12/17/15 [History] Atorvastatin [Lipitor] 10 mg PO HS 01/01/16 [History] Albuterol Neb [Proventil Neb] 2.5 mg IH Q4HR PRN 08/25/16 [History] Bifidobacterium Infantis [Align] 4 mg PO DAILY 08/25/16 [History] Oxygen 2 l IN CONT #1 each 08/26/16 [Rx] Esomeprazole Magnesium [Nexium] 40 mg PO DAILY #30 capsule. 10/03/16 [Rx] Furosemide [Lasix] 40 mg PO BID #60 tablet 10/03/16 [Rx] Potassium Chloride [K-Tab ER] 20 meq PO DAILY 02/01/17 [History] Sotalol [Betapace] 80 mg PO Q12H tab 02/11/17 [Rx] Acetylcysteine 10% 2 ml IH Q8H #90 inhsol 03/02/17 [Rx] Folic Acid 1 mg PO DAILY #30 tablet 03/02/17 [Rx] HYDROcodone/Acet 5/325 mg [[place] 5-325 mg] 1 tab PO Q4HR PRN #14 tab 03/02/17 [ Rx] Sennosides/Docusate Sodium [Senna Plus] 2 each PO BID #90 tab 03/02/17 [Rx] Warfarin [Coumadin] 5 mg PO DAILY #0 03/02/17 [Rx] Enoxaparin [Lovenox] 60 mg SQ Q12HR 03/06/17 [History] predniSONE [PredniSONE] See Taper PO AD 03/06/17 [History] 3 Allergy/AdvReac Type Severity Reaction Status Date / Time ceftriaxone Allergy Hives Verified 02/18/17 16:28 ciprofloxacin Allergy Hives Verified 02/18/17 16:28 levofloxacin Allergy Hives Verified 02/18/17 16:28 vancomycin Allergy Rash Verified 02/18/17 16:28 All Systems: A 10-system review of systems was performed and is negative for pertinent findings except as documented above in the HPI. Physical Examination Vital Signs: Vital Signs, Last 4 Hours Temp Pulse Resp BP Pulse Ox 03/07/17 06:51 97.4 F L 89 16 103/67 91 General appearance: no acute distress Eyes: nonicteric ENT: oropharynx moist Mallampati (class): 3 Neck: supple Effort: mildly labored Inspection: hyperextended Auscultation: bilateral: diminished breath sounds, rhonchi Percussion: bilateral: not dull Cardiovascular: irregular rhythm, murmur noted Gastrointestinal: normoactive bowel sounds, non-distended Extremities: no cyanosis, edema, other (Clubbing so fingers) normal mental status, non-focal exam mood appropriate Results - Laboratory Findings CBC and BMP: 03/07/17 05:30 03/07/17 05:30 PT/INR, D-dimer PT 34.1 Seconds (9.4-12.1) H 03/07/17 05:30 Abnormal lab findings: Abnormal lab results WBC 12.2 K/mcL (4.3-11.1) H 03/07/17 05:30 MCV 81.8 fL (83.0-100.0) L 03/07/17 05:30 MCH 24.7 pg (28.0-33.3) L 03/07/17 05:30 MCHC 30.2 g/dL (31.6-35.5) L 03/07/17 05:30 RDW 17.2 % (11.5-14.5) H 03/07/17 05:30 Neutrophils # 9.0 K/mcL (1.6-8.9) H 03/07/17 05:30 PT 34.1 Seconds (9.4-12.1) H 03/07/17 05:30 APTT 43.1 Seconds (26.0-36.0) H 03/07/17 05:30 Potassium 3.2 mEq/L (3.5-4.5) L 03/07/17 05:30 Carbon Dioxide 35 mEq/L (19-29) H 03/07/17 05:30 POC Glucose 91 (58-89) H 03/07/17 06:55 Triglycerides 249 mg/dL (< 150) H 03/07/17 05:30 VLDL Cholesterol, Calc 50 mg/dL (< 31) H 03/07/17 05:30 - Diagnostic Findings Chest x-ray: report reviewed, image reviewed - Clinical Findings Intake & Output: Intake & Output 03/06/17 03/07/17 03/07/17 23:59 07:59 15:59 Intake Total 280 / 280 40 / 40 240 / 240 Output Total 400 / 400 1000 / 1000 Balance -120 / -120 -960 / -960 240 / 240 Consult Discharge Plan - Plan Referrals: Christoph Hughes DO [Primary Care Provider] -
--- NOTE | 2017-03-07 10:16 | Cardiology Consult Note ---
Date of Encounter: 03/07/17 Time of Encounter: 09:30 Assessment and Plan (1) Atrial fibrillation with rapid ventricular response Current Visit: Yes Status: Acute Per Cardiology: History of paroxysmal atrial fibrillation that initially developed in setting of retroperitoneal bleed with acute blood loss with transfusion. Patient with recurrent A. fib with RVR during recent hospitalization and now on sotalol 80 mg by mouth twice a day. Continues to have recurrent episodes of afib RVR. Nos in SR. IV Cardizem gtt off. Discussed and reviewed with Dr. Teddy Fierro, will dc sotalol (had am dose) and washout. Plan to start amiodarone 200mg PO BID tomorrow evening. On Coumadin managed by [facility]. INR ok. Will need to monitor closely and adjust Coumadin with addition of amiodarone. (2) Acute and chronic respiratory failure Current Visit: No Status: Acute Per Cardiology: Pulm following. Clinically stable and appears about her baseline. 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 Pulm following. Reports starting chemo Wednesday. Qualifiers: Laterality: unspecified laterality Lung location: unspecified part of lung Qualified Code(s): C34.90 - Malignant neoplasm of unspecified part of unspecified bronchus or lung (4) CAD (coronary artery disease) Current Visit: Yes Status: Chronic Per Cardiology: Trops negative x 3. CP free. Known history of CAD with CABG 3 at [facility] in 2007. Negative stress test 2013. Qualifiers: Coronary Disease-Associated Artery/Lesion type: [place] artery [place] vs. transplanted heart: [place] heart Associated angina: without angina Qualified Code(s): I25.10 - Atherosclerotic heart disease of [place] coronary artery without angina pectoris (5) H/O mitral valve replacement with mechanical valve Current Visit: No Status: Chronic Per Cardiology: Has a history of mechanical mitral valve replacement with [facility] T[facility] valve at [facility] in 2007 with last echo September 2016 showing normal functioning mechanical mitral valve. Remains on Coumadin being managed by [facility] with target INR 2.5-3.5 Discussion w patient/family: The assessment and plan as outlined above was discussed with the patient and/or family members who expressed understanding and agreement. All questions were answered. Thank you for involving us in the care of your patient. Please call with any questions. History of Present Illness Consult date: 03/07/17 Consult reason: Afib RVR Chief complaint: SOB, Palps History of present illness: 71-year-old female I last saw in November 2016 with a relevant past medical history of CAD/CABG, mechanical mitral valve replacement on Coumadin being managed by [facility], paroxysmal atrial fibrillation, COPD, obstructive sleep apnea, restless leg syndrome, hypertension, and history of CHF. Patient recently seen during hospitalization January 2017 for COPD exacerbation and A. fib with RVR. Patient started on sotalol therapy. I last saw patient a few weeks ago for hosp f/u and had outpatient eval for her newly diagnosed lung cancer. Has had recurrent admit for COPD exac and was supposed to see me this week in clinic (Cardiology not consulted during that stay, but she reports she had episodes of afib RVR at that time as well).. Cardiology consult for afib RVR. Patient reports developed episode yesterday of rapid HR 120's-130's and worsening anxiety, SOB. Denies any CP. Denies any infectious process. Reports remains on Sotalol 80mg PO BID and Coumadin followed by [facility]. Reports starting chemo Wednesday for new lung cancer. Currently symptoms resolved and breathing back to her baseline. Past Med Surg Social Fam HX - Past Medical History Attestation: Yes The following information was validated with the patient. Source: patient, old records reviewed Medical history: arthritis, atrial fibrillation, cancer (Adenocarcinoma of the spine and adrenal gland), cardiomyopathy, CHF, COPD, fibromyalgia, hypertension , myocardial infarction, osteoporosis, RA, other Psychiatric history: no psych history - Past Surgical History Surgical History: angioplasty/stent, cholecystectomy, coronary bypass (CABG), heart valve replacement (Mitral valve), orthopedic, other - Social History Smoking Status: Former smoker Packs per day: 1.5 PPD - reports quitting 20 years ago Smokeless Tobacco Status: No Alcohol use: none Drug use: none - Family History Father Age: 62 Race: Family Member Ethnicity: Non- Living Status: Age at : 61 Cause of : Lung cancer Hx Family Cardiac Disorders: Yes (MA, HTN, HD) Hx Family Respiratory Disorders: No Hx Family Cancer: Yes (Lung ) Hx Family GI Disorders: No Hx Family Endocrine Disorder: No Hx Family Neuromuscular Disorders: No Hx Family Neurologic Disorders: No Hx Family HEENT Disorders: No Hx Family Autoimmune Disorders: No Brother Race: Family Member Ethnicity: Non- Living Status: Age at : 38 Cause of : MA Hx Family Cardiac Disorders: Yes (MA) Hx Family Psychosocial Disorders: Yes Mother Age: 63 Race: Family Member Ethnicity: Non- Living Status: Age at : 62 Cause of : Lung cancer Hx Family Cardiac Disorders: No Hx Family Respiratory Disorders: Yes (COPD) Hx Family Cancer: Yes (Lung, bone) Hx Family GI Disorders: No Hx Family Endocrine Disorder: No Hx Family Neuromuscular Disorders: No Hx Family Neurologic Disorders: No Hx Family HEENT Disorders: No Hx Family Autoimmune Disorders: No Medications and Allergies Albuterol Sulfate [Albuterol Inhaler] 1 - 2 puff IH Q4HR PRN 11/24/15 [History] Allopurinol [Zyloprim 100 MG] 100 mg PO DAILY 11/24/15 [History] Budesonide/Formoterol 160/4.5 [Symbicort 160/4.5] 2 puff IH BIDR 11/24/15 [ History] Calcium Carbonate [Calcium] 500 mg PO BID 11/24/15 [History] Cholecalciferol (D-3) [Vitamin D] 2,000 unit PO DAILY 11/24/15 [History] Fluticasone Propionate Nasal [Flonase] 1 spray NS DAILY 11/24/15 [History] Gabapentin [Neurontin] 200 mg PO HS 11/24/15 [History] Loratadine [Claritin] 10 mg PO DAILY 11/24/15 [History] Montelukast [Singulair] 10 mg PO DAILY 11/24/15 [History] Nitroglycerin [Nitrostat] 0.4 mg SL Q5M PRN 11/24/15 [History] Nortriptyline [Pamelor] 10 mg PO HS 11/24/15 [History] Roflumilast [Daliresp] 500 mcg PO DAILY 11/24/15 [History] Vitamin B Complex [B Complex] 1 tab PO DAILY 11/24/15 [History] Umeclidinium [place] [Incruse Ellipta] 1 puff IH DAILY 12/17/15 [History] Atorvastatin [Lipitor] 10 mg PO HS 01/01/16 [History] Albuterol Neb [Proventil Neb] 2.5 mg IH Q4HR PRN 08/25/16 [History] Bifidobacterium Infantis [Align] 4 mg PO DAILY 08/25/16 [History] Oxygen 2 l IN CONT #1 each 08/26/16 [Rx] Esomeprazole Magnesium [Nexium] 40 mg PO DAILY #30 capsule. 10/03/16 [Rx] Furosemide [Lasix] 40 mg PO BID #60 tablet 10/03/16 [Rx] Potassium Chloride [K-Tab ER] 20 meq PO DAILY 02/01/17 [History] Sotalol [Betapace] 80 mg PO Q12H tab 02/11/17 [Rx] Acetylcysteine 10% 2 ml IH Q8H #90 inhsol 03/02/17 [Rx] Folic Acid 1 mg PO DAILY #30 tablet 03/02/17 [Rx] HYDROcodone/Acet 5/325 mg [[place] 5-325 mg] 1 tab PO Q4HR PRN #14 tab 03/02/17 [ Rx] Sennosides/Docusate Sodium [Senna Plus] 2 each PO BID #90 tab 03/02/17 [Rx] Warfarin [Coumadin] 5 mg PO DAILY #0 03/02/17 [Rx] Enoxaparin [Lovenox] 60 mg SQ Q12HR 03/06/17 [History] predniSONE [PredniSONE] See Taper PO AD 03/06/17 [History] 3 Allergy/AdvReac Type Severity Reaction Status Date / Time ceftriaxone Allergy Hives Verified 02/18/17 16:28 ciprofloxacin Allergy Hives Verified 02/18/17 16:28 levofloxacin Allergy Hives Verified 02/18/17 16:28 vancomycin Allergy Rash Verified 02/18/17 16:28 All Systems Review: A 10-system review of systems was performed and is negative for pertinent findings except as documented above in the HPI. - Constitutional Constitutional: fatigue - Cardiovascular Cardiovascular: as per HPI, dyspnea at rest, dyspnea on exertion, irregular heart rhythm, leg edema (intermittent), palpitations - Psychiatric Psychiatric: anxiety Physical Examination Vital Signs, Last 4 Hours Temp Pulse Resp BP Pulse Ox 03/07/17 06:51 97.4 F L 89 16 103/67 91 General: Conversant, No Apparent Distress HEENT: Atraumatic, Normocephaly Cardiac: Reg Rate and Rhythm, Normal S1 and S2, No Murmur Lungs: Other (mildly labored at rest, diminished throughout) Neuro: Alert and responsive, No focal deficits noted Abdomen: Soft, Non-Tender Skin: No rashes noted on visualized skin Musculoskeletal: No Chest Wall Tenderness Extremities: No Edema Results 03/07/17 05:30 03/07/17 05:30 Lab Results Laboratory Tests 03/06/17 03/06/17 03/06/17 14:20 14:20 21:48 INR Potassium Troponin I 0.02 0.02 LDL Cholesterol, Calc TSH 3.068 03/07/17 03/07/17 03/07/17 05:30 05:30 05:30 INR 3.1 Potassium 3.2 L Troponin I 0.02 LDL Cholesterol, Calc 84 TSH ITS Impressions Chest X-Ray 03/06/17 13:58 IMPRESSION: Stable chronic right lower lobe airspace disease unchanged from previous chest radiograph Small bilateral pleural effusions D/ / 03/06/2017 14:20:52 Gab Victor MD / [facility] Interpreting Provider: Gab Victor MD Active Medications Acetaminophen (Tylenol) 650 mg PO Q6HR PRN PRN Reason: Mild Pain (1-3) Stop: 09/05/17 18:30 Hydrocodone Bitart/Acetaminophen ([place] 5-325 Mg) 1 tab PO Q4HR PRN PRN Reason: Moderate Pain (4-6) Stop: 09/05/17 18:30 Last Admin: 03/07/17 08:47 Dose: 1 tab Acetylcysteine (Acetylcysteine 10%) 2 ml IH [id number] [facility] Stop: 09/05/17 23:01 Last Admin: 03/07/17 07:36 Dose: 2 ml Albuterol/Ipratropium (Duoneb) 3 ml IH [id number] [facility] Stop: 09/05/17 20:01 Last Admin: 03/07/17 07:36 Dose: 3 ml Allopurinol (Zyloprim) 100 mg PO DAILY [facility] Stop: 09/06/17 09:01 Last Admin: 03/07/17 08:39 Dose: 100 mg Atorvastatin Calcium (Lipitor) 10 mg PO HS [facility] Stop: 09/05/17 21:01 Last Admin: 03/06/17 22:46 Dose: 10 mg Budesonide/Formoterol Fumarate (Symbicort) 2 puff IH BIDR [facility] PRN Reason: Protocol Stop: 09/06/17 10:01 Calcium Carbonate (Tums) 500 mg PO BID [facility] Stop: 09/05/17 21:01 Last Admin: 03/07/17 08:39 Dose: 500 mg Dextrose/Water (Dextrose 50% (Syg)) 25 ml IVP AD PRN PRN Reason: Hypoglycemia Stop: 09/05/17 18:48 Fluticasone Propionate (Flonase) 50 mcg NS DAILY [facility] PRN Reason: Protocol Stop: 09/06/17 09:01 Last Admin: 03/07/17 08:40 Dose: 50 mcg Folic Acid (Folic Acid) 1 mg PO DAILY [facility] Stop: 09/06/17 09:01 Last Admin: 03/07/17 08:39 Dose: 1 mg Furosemide (Lasix) 40 mg PO BIDDIURETIC CAYLA Stop: 09/05/17 21:01 Last Admin: 03/07/17 08:39 Dose: 40 mg Gabapentin (Neurontin) 200 mg PO HS [facility] Stop: 09/05/17 21:01 Last Admin: 03/06/17 22:46 Dose: 200 mg Glucagon (Glucagen) 1 mg IM ONCE PRN PRN Reason: Hypoglycemia Stop: 09/05/17 18:48 Glucose (Gluctose) 15 gm PO ONCE PRN PRN Reason: Hypoglycemia Stop: 09/05/17 18:48 Glucose (Gluctose) 30 gm PO ONCE PRN PRN Reason: Hypoglycemia Stop: 09/05/17 18:48 Dextrose (Dextrose 5%) 1,000 mls @ 100 mls/hr IVC .Q10H PRN PRN Reason: HYPOGLYCEMIA Stop: 09/05/17 18:48 Insulin Human Lispro (Humalog) 0 units SQ TIDAC [facility] PRN Reason: Protocol Stop: 09/06/17 07:31 Last Admin: 03/07/17 08:32 Dose: Not Given Insulin Human Lispro (Humalog) 0 units SQ [facility] PRN Reason: Protocol Stop: 09/05/17 21:01 Last Admin: 03/06/17 22:50 Dose: Not Given Loratadine (Claritin) 10 mg PO DAILY [facility] PRN Reason: Protocol Stop: 09/06/17 09:01 Last Admin: 03/07/17 08:39 Dose: 10 mg Montelukast Sodium (Singulair) 10 mg PO DAILY [facility] Stop: 09/06/17 09:01 Last Admin: 03/07/17 08:39 Dose: 10 mg Morphine Sulfate (Morphine Sulfate) 2 mg IVP Q4HR PRN PRN Reason: Severe Pain (7-10) Stop: 09/05/17 18:30 Naloxone HCl (Narcan) 0.4 mg IVP Q2MIN PRN PRN Reason: Opioid Reversal Stop: 09/05/17 18:30 Nitroglycerin (Nitroglycerin) 0.4 mg SL Q5M PRN PRN Reason: Chest Pain Stop: 09/05/17 18:24 Nortriptyline HCl (Pamelor) 10 mg PO HS [facility] Stop: 09/05/17 21:01 Last Admin: 03/06/17 22:45 Dose: 10 mg Ondansetron HCl (Zofran) 4 mg IVP Q8HR PRN PRN Reason: Nausea And Vomiting Stop: 09/05/17 18:30 Pantoprazole Sodium (Protonix) 40 mg IVP DAILY [facility] Stop: 09/05/17 18:31 Last Admin: 03/07/17 08:39 Dose: 40 mg Pharmacy Profile Note (Patient Taking Own Medication) 0 each PO DAILY [facility] Stop: 09/06/17 09:01 Last Admin: 03/07/17 08:39 Dose: Not Given Pharmacy Profile Note (Patient Taking Own Medication) 0 each PO DAILY [facility] Stop: 09/06/17 09:01 Last Admin: 03/07/17 08:39 Dose: Not Given Potassium Chloride (Potassium Chloride) 20 meq PO DAILY [facility] Stop: 09/06/17 09:01 Last Admin: 03/07/17 08:39 Dose: 20 meq Senna/Docusate Sodium (Senna Plus) 2 each PO BID [facility] PRN Reason: Protocol Stop: 09/05/17 21:01 Last Admin: 03/07/17 08:39 Dose: Not Given Vitamin D (Vitamin D) 1,000 unit PO DAILY [facility] Stop: 09/06/17 09:01 Last Admin: 03/07/17 08:39 Dose: 1,000 unit Warfarin Sodium (Coumadin Perpt) 1 each PO DAILY@1800 PRN PRN Reason: SEE COMMENTS Stop: 09/06/17 18:01 - Imaging and Cardiology Chest Xray: report reviewed - EKG Interpretation EKG results cardiology: personally reviewed (afib RVR 130's), other (currently SR 80's) Consult Discharge Plan - Plan Referrals: Christoph Hughes DO [Primary Care Provider] -
[2017-03-07] MEDS: Budesonide/Formoterol 160/4.5 MDI IH SCH (12:00)
--- NOTE | 2017-03-07 15:37 | Internal Med Progress Note ---
Date of Encounter: 03/07/17 Time of Encounter: 15:34 - Assessment and plan (1) Atrial fibrillation with rapid ventricular response Current Visit: Yes Status: Acute Assessment and plan: Followed by cardiology Sotalol has been stopped, planning to start amiodarone tomorrow's night Continue warfarin, may hold tonight's dose as the INR is supratherapeutic (2) COPD (chronic obstructive pulmonary disease) Current Visit: No Status: Chronic Assessment and plan: Followed by pulmonary service Treated for COPD exacerbation during last admission, Continue prednisone taper Qualifiers: COPD type: COPD with acute exacerbation Qualified Code(s): J44.1 - Chronic obstructive pulmonary disease with (acute) exacerbation (3) Acute on chronic respiratory failure with hypoxemia Current Visit: No Status: Acute Assessment and plan: Continue oxygen therapy (4) CKD (chronic kidney disease) stage 3, GFR 30-59 ml/min Current Visit: No Status: Chronic Assessment and plan: Stable (5) Adenocarcinoma of lung Current Visit: No Status: Chronic Assessment and plan: Follow-up with oncology Qualifiers: Laterality: right Qualified Code(s): C34.91 - Malignant neoplasm of unspecified part of right bronchus or lung (6) Pleural effusion Current Visit: No Status: Acute Assessment and plan: Likely related to chronic diastolic CHF and atrial fibrillation with rapid ventricular response Chest x-ray shows small bilateral pleural effusions and the right lower lobe airspace disease/patchy opacity unchanged from prior exams Continue Lasix (7) CAD in [place] artery Current Visit: No Status: Acute Assessment and plan: Continue Lipitor (8) HLD (hyperlipidemia) Current Visit: Yes Status: Chronic Qualifiers: Hyperlipidemia type: pure hypercholesterolemia Qualified Code(s): E78.00 - Pure hypercholesterolemia, unspecified; E78.0 - Pure hypercholesterolemia - Subjective Interval history: Feels mildly short of breath, denies any chest pain, no further palpitations, no abdominal pain, no dysuria, no diarrhea no fevers - Constitutional Vitals: Temp Pulse Resp BP Pulse Ox 98 F 85 20 98/70 89 03/07/17 11:28 03/07/17 11:28 03/07/17 11:59 03/07/17 11:28 03/07/17 11:59 General appearance: Present: cooperative, mild distress, A&O X 3, pleasant, obese, answers questions appropriately - Head Head exam: Present: atraumatic, normocephalic - Eye Eye exam: Present: PERRL, conjuntiva pink, sclera anicteric Pupils: Present: PERRL - Neck Neck exam general surgery: Present: supple, trachea midline. Absent: lymphadenopathy - Respiratory Respiratory exam: Present: CTAB, rales (Bibasilar fine crackles). Absent: accessory muscle use, rhonchi, wheezes - Cardiovascular Cardiovascular exam: Present: RRR, +S1, +S2. Absent: diastolic murmur, gallop, rubs, systolic murmur - GI/Abdominal GI/Abdominal exam: Present: normal bowel sounds, soft, no peritoneal signs. Absent: distended, tenderness - Extremities Exam Extremities exam: Present: pedal edema (+1 pitting edema in both lower extremities), warm, radial pulses palpable and symmetrical. Absent: calf tenderness, cyanotic - Neurological Exam Neurological exam: Present: CN II-XII intact, oriented X3, no focal deficits. Absent: pronater drift, facial droop, speech deficit - Skin Skin exam: Present: dry, intact Internal Medicine: Result - Labs CBC & Chem 7: 03/07/17 05:30 03/07/17 05:30 Labs: Short CBC 03/07/17 Range/Units 05:30 WBC 12.2 H (4.3-11.1) K/mcL Hgb 11.8 (11.5-15.4) g/dL Hct 39.1 (35.3-44.9) % Plt Count 246 (140-400) K/mcL Neutrophils # 9.0 H (1.6-8.9) K/mcL BMP 03/07/17 05:30 Sodium 142 Potassium 3.2 L Chloride 100 Carbon Dioxide 35 H BUN 20 Creatinine 0.83 Glucose 75 Calcium 8.9 Cardiac Enzymes 03/06/17 03/07/17 Range/Units 21:48 05:30 Troponin I 0.02 0.02 (0-0.03) ng/mL - ABG Interpretation ABG results: PT/INR, D-dimer PT 34.1 Seconds (9.4-12.1) H 03/07/17 05:30 Consult Discharge Plan - Plan Referrals: Christoph Hughes DO [Primary Care Provider] -
[2017-03-07] MEDS: predniSONE 20 MG TABLET PO SCH (16:29)
[2017-03-07] MEDS ORDERED: Warfarin perPT PO PRN (18:00)
[2017-03-07] MEDS: Gabapentin 100 MG CAPSULE PO SCH (20:22)
[2017-03-07 20:40] LABS: Bilirubin,Urine Negative (Negative); Blood,Urine Negative (Negative); Clarity,Urine Clear (Clear); Color,Urine Yellow (Yellow); Glucose,Urine (UA) Normal (Normal); Ketones,Urine Negative (Negative); Leukocyte Esterase,Urine Negative (Negative); Nitrite,Urine Negative (Negative); PH,Urine 6.5 pH Units (5.0-8.0); Protein,Urine Negative (Neg-Trace); Specific Gravity,Urine 1.013 (1.010-1.025); Urobilinogen,Urine Normal (Normal)
[2017-03-08] MEDS: Budesonide/Formoterol 160/4.5 MDI IH SCH ×3 (00:25→21:31)
[2017-03-08] MEDS: Ipratropium/Albuterol Neb 3 ML IH SCH ×6 (00:26→21:31)
[2017-03-08] MEDS: Acetylcysteine 10% 2 ML INHSOL IH SCH ×3 (00:26→15:49)
[2017-03-08 04:36] LABS: INR 2.7; Prothrombin Time 29.6 Seconds (9.4-12.1)
[2017-03-08 04:40] LABS: BUN/Creatinine Ratio 29 (6-26); Blood Urea Nitrogen 26 mg/dL (7-20); Calcium 8.8 mg/dL (8.6-10.8); Carbon Dioxide 31 mEq/L (19-29); Chloride 104 mEq/L (98-109); Glucose 102 mg/dL (70-99); Osmolality,Calculated 297 (280-300); Potassium 4.1 mEq/L (3.5-4.5); Sodium 141 mEq/L (136-145); eGFR For African Americans > 60 (> 60); eGFR For Non-African Americans > 60 (> 60)
--- NOTE | 2017-03-08 08:27 | Cardiology Progress Note ---
Date of Encounter: 03/08/17 Time of Encounter: 08:25 Assessment and Plan (1) Atrial fibrillation with rapid ventricular response Current Visit: Yes Status: Acute Per Cardiology: History of paroxysmal atrial fibrillation that initially developed in setting of retroperitoneal bleed with acute blood loss with transfusion. Continues to have recurrent episodes of afib RVR. Sotalol washout. On IV Cardizem gtt at 5mg/ hr. Plan to start amiodarone 200mg PO BID tonight. On Coumadin managed by [facility]. INR ok. Will need to monitor closely and adjust Coumadin with addition of amiodarone. (2) Acute and chronic respiratory failure Current Visit: No Status: Acute Per Cardiology: Pulm following. Clinically stable and appears about her baseline. 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 Pulm following. Reports starting chemo Wednesday. Patient is DNR /DNI/CCA. Qualifiers: Laterality: right Lung location: unspecified part of lung Qualified Code( s): C34.91 - Malignant neoplasm of unspecified part of right bronchus or lung (4) CAD (coronary artery disease) Current Visit: Yes Status: Chronic Per Cardiology: Trops negative x 3. CP free. Known history of CAD with CABG 3 at [facility] in 2007. Negative stress test 2013. Qualifiers: Coronary Disease-Associated Artery/Lesion type: deering artery [place] vs. transplanted heart: deering heart Associated angina: without angina Qualified Code(s): I25.10 - Atherosclerotic heart disease of deering coronary artery without angina pectoris (5) H/O mitral valve replacement with mechanical valve Current Visit: No Status: Chronic Per Cardiology: Has a history of mechanical mitral valve replacement with St. Tj valve at [facility] in 2007 with last echo September 2016 showing normal functioning mechanical mitral valve. Remains on Coumadin being managed by [facility] with target INR 2.5-3.5. Discussion w patient/family: The assessment and plan as outlined above was discussed with the patient and/or family members who expressed understanding and agreement. All questions were answered. Thank you for involving us in the care of your patient. Please call with any questions. Subjective Principal diagnosis: Afib RVR Interval history: Reports SOB stable. Objective Vital Signs, Last 4 Hours Temp Pulse Resp BP Pulse Ox 03/08/17 07:58 16 86 03/08/17 07:15 98.2 F 103 16 93/72 88 03/08/17 05:44 97.9 F 140 20 86/78 92 03/08/17 04:27 19 91 General: Conversant, No Apparent Distress HEENT: Atraumatic, Normocephaly, Mucus Membranes Moist Cardiac: No Murmur, Other (ierregularly irregular) Lungs: Normal Breath Sounds, No Wheeze, Rales, Rhonchi Neuro: Alert and responsive, No focal deficits noted Abdomen: Soft, Non-Tender Skin: No rashes noted on visualized skin Extremities: No Clubbing, No Cyanosis, No Edema, Normal Pulses Results 03/07/17 05:30 03/08/17 04:00 Lab Results Laboratory Tests 03/08/17 04:00 INR 2.7 Active Medications Acetaminophen (Tylenol) 650 mg PO Q6HR PRN PRN Reason: Mild Pain (1-3) Stop: 09/05/17 18:30 Hydrocodone Bitart/Acetaminophen (Denio 5-325 Mg) 1 tab PO Q4HR PRN PRN Reason: Moderate Pain (4-6) Stop: 09/05/17 18:30 Last Admin: 03/07/17 16:40 Dose: 1 tab Acetylcysteine (Acetylcysteine 10%) 2 ml IH [id number] [facility] Stop: 09/05/17 23:01 Last Admin: 03/08/17 07:55 Dose: 2 ml Albuterol/Ipratropium (Duoneb) 3 ml IH [id number] [facility] Stop: 09/05/17 20:01 Last Admin: 03/08/17 07:55 Dose: 3 ml Allopurinol (Zyloprim) 100 mg PO DAILY [facility] Stop: 09/06/17 09:01 Last Admin: 03/07/17 08:39 Dose: 100 mg Atorvastatin Calcium (Lipitor) 10 mg PO HS [facility] Stop: 09/05/17 21:01 Last Admin: 03/07/17 20:22 Dose: 10 mg Budesonide/Formoterol Fumarate (Symbicort) 2 puff IH BIDR [facility] PRN Reason: Protocol Stop: 09/06/17 10:01 Last Admin: 03/08/17 07:55 Dose: 2 puff Calcium Carbonate (Tums) 500 mg PO BID [facility] Stop: 09/05/17 21:01 Last Admin: 03/07/17 20:22 Dose: 500 mg Dextrose/Water (Dextrose 50% (Syg)) 25 ml IVP AD PRN PRN Reason: Hypoglycemia Stop: 09/05/17 18:48 Fluticasone Propionate (Flonase) 50 mcg NS DAILY [facility] PRN Reason: Protocol Stop: 09/06/17 09:01 Last Admin: 03/07/17 08:40 Dose: 50 mcg Folic Acid (Folic Acid) 1 mg PO DAILY [facility] Stop: 09/06/17 09:01 Last Admin: 03/07/17 08:39 Dose: 1 mg Furosemide (Lasix) 40 mg PO BIDDIURETIC [facility] Stop: 09/05/17 21:01 Last Admin: 03/07/17 16:29 Dose: 40 mg Gabapentin (Neurontin) 200 mg PO HS [facility] Stop: 09/05/17 21:01 Last Admin: 03/07/17 20:22 Dose: 200 mg Glucagon (Glucagen) 1 mg IM ONCE PRN PRN Reason: Hypoglycemia Stop: 09/05/17 18:48 Glucose (Gluctose) 15 gm PO ONCE PRN PRN Reason: Hypoglycemia Stop: 09/05/17 18:48 Glucose (Gluctose) 30 gm PO ONCE PRN PRN Reason: Hypoglycemia Stop: 09/05/17 18:48 Dextrose (Dextrose 5%) 1,000 mls @ 100 mls/hr IVC .Q10H PRN PRN Reason: HYPOGLYCEMIA Stop: 09/05/17 18:48 Diltiazem HCl 125 mg/ Dextrose 125 mls @ 5 mls/hr IVC .Q24H [facility]; 5 MG/HR PRN Reason: Protocol Stop: 09/07/17 00:16 Last Admin: 03/08/17 03:32 Dose: 5 mg/hr, 5 mls/hr Insulin Human Lispro (Humalog) 0 units SQ TIDAC [facility] PRN Reason: Protocol Stop: 09/06/17 07:31 Last Admin: 03/07/17 16:26 Dose: Not Given Insulin Human Lispro (Humalog) 0 units SQ HS [facility] PRN Reason: Protocol Stop: 09/05/17 21:01 Last Admin: 03/07/17 20:24 Dose: Not Given Loratadine (Claritin) 10 mg PO DAILY [facility] PRN Reason: Protocol Stop: 09/06/17 09:01 Last Admin: 03/07/17 08:39 Dose: 10 mg Montelukast Sodium (Singulair) 10 mg PO DAILY [facility] Stop: 09/06/17 09:01 Last Admin: 03/07/17 08:39 Dose: 10 mg Morphine Sulfate (Morphine Sulfate) 2 mg IVP Q4HR PRN PRN Reason: Severe Pain (7-10) Stop: 09/05/17 18:30 Naloxone HCl (Narcan) 0.4 mg IVP Q2MIN PRN PRN Reason: Opioid Reversal Stop: 09/05/17 18:30 Nitroglycerin (Nitroglycerin) 0.4 mg SL Q5M PRN PRN Reason: Chest Pain Stop: 09/05/17 18:24 Nortriptyline HCl (Pamelor) 10 mg PO HS [facility] Stop: 09/05/17 21:01 Last Admin: 03/07/17 20:22 Dose: 10 mg Omeprazole (Prilosec) 40 mg PO DAILY [facility] Stop: 09/07/17 09:01 Ondansetron HCl (Zofran) 4 mg IVP Q8HR PRN PRN Reason: Nausea And Vomiting Stop: 09/05/17 18:30 Pantoprazole Sodium (Protonix) 40 mg IVP DAILY [facility] Stop: 09/05/17 18:31 Last Admin: 03/07/17 08:39 Dose: 40 mg Pharmacy Profile Note (Patient Taking Own Medication) 0 each PO DAILY [facility] Stop: 09/06/17 09:01 Last Admin: 03/07/17 08:39 Dose: Not Given Pharmacy Profile Note (Patient Taking Own Medication) 0 each PO DAILY [facility] Stop: 09/06/17 09:01 Last Admin: 03/07/17 08:39 Dose: Not Given Potassium Chloride (Potassium Chloride) 20 meq PO DAILY [facility] Stop: 09/06/17 09:01 Last Admin: 03/07/17 08:39 Dose: 20 meq Prednisone (Prednisone) 20 mg PO DAILY [facility] Stop: 09/06/17 15:46 Last Admin: 03/07/17 16:29 Dose: 20 mg Senna/Docusate Sodium (Senna Plus) 2 each PO BID [facility] PRN Reason: Protocol Stop: 09/05/17 21:01 Last Admin: 03/07/17 20:22 Dose: Not Given Vitamin D (Vitamin D) 1,000 unit PO DAILY [facility] Stop: 09/06/17 09:01 Last Admin: 03/07/17 08:39 Dose: 1,000 unit Warfarin Sodium (Coumadin Perpt) 1 each PO DAILY@1800 PRN PRN Reason: SEE COMMENTS Stop: 09/06/17 18:01 - EKG Interpretation EKG results cardiology: other (Telemetry reviewed with average heart rate the past 12 hours 107, sinus rhythm/sinus tach with episodes of paroxysmal A. fib with RVR, currently sinus tachycardia in the 110s on telemetry) Consult Discharge Plan - Plan Referrals: Christoph Hughes DO [Primary Care Provider] -
[2017-03-08] MEDS: Insulin LISPRO 300 UNITS/3 ML VIAL SQ SCH ×4 (08:48→21:13)
[2017-03-08] MEDS: (Roflumilast [Daliresp] 500 MCG) PO SCH (08:49)
[2017-03-08] MEDS: (Bifidobacterium Infantis [Align] 4 MG) PO SCH (08:49)
[2017-03-08] MEDS: Furosemide 40 MG TABLET PO SCH ×2 (09:41→16:58)
[2017-03-08] MEDS: Fluticasone Propionate Nasal 50 MCG/SPRAY BOTTLE NS SCH (09:42)
[2017-03-08] MEDS: Pantoprazole 40 MG VIAL IVP SCH (09:42)
[2017-03-08] MEDS: predniSONE 20 MG TABLET PO SCH (09:42)
[2017-03-08] MEDS: Sennosides/Docusate Sodium TABLET PO SCH ×3 (09:42→21:04)
[2017-03-08] MEDS: *HR* HYDROcodone/Acet 5/325 mg TABLET PO PRN ×2 (09:42→21:04)
[2017-03-08] MEDS: Folic Acid 1 MG TABLET PO SCH (09:42)
[2017-03-08] MEDS: Cholecalciferol (D-3) 1,000 UNIT TABLET PO SCH (09:42)
[2017-03-08] MEDS: Loratadine 10 MG TABLET PO SCH (09:42)
--- NOTE | 2017-03-08 10:01 | Pulmonology Progress Note ---
Date of Encounter: 03/08/17 Time of Encounter: 09:00 Assessment and Plan (1) Acute and chronic respiratory failure Current Visit: No Status: Chronic Patient says she uses 4-5 litres at home. Patient currently on 5-6 litres. This episode more look like diastolic dysfunction secondary to atrial fibrillation with RVR . I dont think it is COPD exacerbation . Qualifiers: Qualified Code(s): J96.21 - Acute and chronic respiratory failure with hypoxia; J96.22 - Acute and chronic respiratory failure with hypercapnia (2) COPD (chronic obstructive pulmonary disease) Current Visit: No Status: Chronic To continue Symbicort , if she has episodic wheezing it is reasonable try to Xopenex as needed for wheezing . Will hold off oral steroids will monitor her symptoms. Qualifiers: Qualified Code(s): J44.1 - Chronic obstructive pulmonary disease with (acute ) exacerbation (3) Lung cancer Current Visit: Yes Status: Acute Doesnt look like disease progression might able to start chemotherapy this week if she gets stabilized Qualifiers: Qualified Code(s): C34.91 - Malignant neoplasm of unspecified part of right bronchus or lung (4) Atrial fibrillation with RVR Current Visit: No Status: Acute Patient had few episodes of paroxysmal a fib , patient is on cardizem she is transitioned to PO amiodarone.Cardiology following. To continue diuresis. Subjective Principal diagnosis: Afib RVR Interval history: Patient says she had rough morning today now she is lot better , her cough and sputum are at baseline , she says whenever the heart rate goes she gets shortness of breadth , denies any chest pain or chest tightness. Objective PUL Vital signs: Last Vital Signs Temp 98.2 F 03/08/17 07:15 Pulse 103 03/08/17 07:15 Resp 16 03/08/17 07:58 BP 93/72 03/08/17 07:15 Pulse Ox 86 03/08/17 07:58 General appearance: other (Mild respiratory distress) Effort: mildly labored Auscultation: bilateral: clear (no wheezes ) Cardiovascular: irregular rhythm (Paroxysmal atrial fibrillation) Results - Laboratory Findings CBC and BMP: 03/07/17 05:30 03/08/17 04:00 PT/INR, D-dimer PT 29.6 Seconds (9.4-12.1) H 03/08/17 04:00 Abnormal lab findings: Abnormal lab results WBC 12.2 K/mcL (4.3-11.1) H 03/07/17 05:30 MCV 81.8 fL (83.0-100.0) L 03/07/17 05:30 MCH 24.7 pg (28.0-33.3) L 03/07/17 05:30 MCHC 30.2 g/dL (31.6-35.5) L 03/07/17 05:30 RDW 17.2 % (11.5-14.5) H 03/07/17 05:30 Neutrophils # 9.0 K/mcL (1.6-8.9) H 03/07/17 05:30 PT 29.6 Seconds (9.4-12.1) H 03/08/17 04:00 APTT 43.1 Seconds (26.0-36.0) H 03/07/17 05:30 Carbon Dioxide 31 mEq/L (19-29) H 03/08/17 04:00 BUN 26 mg/dL (7-20) H 03/08/17 04:00 BUN/Creatinine Ratio 29 (6-26) H 03/08/17 04:00 Glucose 102 mg/dL (70-99) H 03/08/17 04:00 POC Glucose 100 (58-89) H 03/08/17 07:16 Triglycerides 249 mg/dL (< 150) H 03/07/17 05:30 VLDL Cholesterol, Calc 50 mg/dL (< 31) H 03/07/17 05:30 - Clinical Findings Intake & Output: Intake & Output 03/07/17 03/08/17 03/08/17 23:59 07:59 15:59 Intake Total 0 / 0 0 / 0 120 / 120 Output Total 600 / 600 2 / 2 Balance -600 / -600 -2 / -2 120 / 120 Weight 55 kg Consult Discharge Plan - Plan Referrals: Christoph Hughes DO [Primary Care Provider] -
--- NOTE | 2017-03-08 15:05 | Internal Med Progress Note ---
Date of Encounter: 03/08/17 Time of Encounter: 15:03 - Assessment and plan (1) Atrial fibrillation with rapid ventricular response Current Visit: Yes Status: Acute Assessment and plan: Followed by cardiology Sotalol has been stopped, planning to start amiodarone tonight Continue Cardizem drip Continue warfarin, pharmacy to manage dosing, check INR in the morning (2) COPD (chronic obstructive pulmonary disease) Current Visit: No Status: Chronic Assessment and plan: Followed by pulmonary service Treated for COPD exacerbation during last admission, Pulmonary service recommended to hold steroids Qualifiers: COPD type: COPD with acute exacerbation Qualified Code(s): J44.1 - Chronic obstructive pulmonary disease with (acute) exacerbation (3) Acute on chronic respiratory failure with hypoxemia Current Visit: No Status: Acute Assessment and plan: Continue oxygen therapy (4) CKD (chronic kidney disease) stage 3, GFR 30-59 ml/min Current Visit: No Status: Chronic Assessment and plan: Stable (5) Adenocarcinoma of lung Current Visit: No Status: Chronic Assessment and plan: Follow-up with oncology Qualifiers: Laterality: right Qualified Code(s): C34.91 - Malignant neoplasm of unspecified part of right bronchus or lung (6) Pleural effusion Current Visit: No Status: Acute Assessment and plan: Likely related to chronic diastolic CHF and atrial fibrillation with rapid ventricular response Chest x-ray shows small bilateral pleural effusions and the right lower lobe airspace disease/patchy opacity unchanged from prior exams Continue Lasix (7) CAD in three affiliated artery Current Visit: No Status: Acute Assessment and plan: Continue Lipitor (8) HLD (hyperlipidemia) Current Visit: Yes Status: Chronic Qualifiers: Hyperlipidemia type: pure hypercholesterolemia Qualified Code(s): E78.00 - Pure hypercholesterolemia, unspecified; E78.0 - Pure hypercholesterolemia - Subjective Interval history: Less short of breath, denies any chest pain, no palpitations, no abdominal pain , no dysuria, no diarrhea no fevers - Constitutional Vitals: Temp Pulse Resp BP Pulse Ox 98.6 F 107 16 103/64 90 03/08/17 10:46 03/08/17 10:46 03/08/17 11:34 03/08/17 10:46 03/08/17 11:34 General appearance: Present: cooperative, mild distress, A&O X 3, pleasant, obese, answers questions appropriately - Head Head exam: Present: atraumatic, normocephalic - Eye Eye exam: Present: PERRL, conjuntiva pink, sclera anicteric Pupils: Present: PERRL - Neck Neck exam general surgery: Present: supple, trachea midline. Absent: lymphadenopathy - Respiratory Respiratory exam: Present: CTAB. Absent: accessory muscle use, rales, rhonchi, wheezes - Cardiovascular Cardiovascular exam: Present: RRR, +S1, +S2. Absent: diastolic murmur, gallop, rubs, systolic murmur - GI/Abdominal GI/Abdominal exam: Present: normal bowel sounds, soft, no peritoneal signs. Absent: distended, tenderness - Extremities Exam Extremities exam: Present: warm, radial pulses palpable and symmetrical. Absent : calf tenderness, cyanotic, pedal edema - Neurological Exam Neurological exam: Present: CN II-XII intact, oriented X3, no focal deficits. Absent: pronater drift, facial droop, speech deficit - Skin Skin exam: Present: dry, intact Internal Medicine: Result - Labs CBC & Chem 7: 03/07/17 05:30 03/08/17 04:00 Labs: BMP 03/08/17 04:00 Sodium 141 Potassium 4.1 Chloride 104 Carbon Dioxide 31 H BUN 26 H Creatinine 0.89 Glucose 102 H Calcium 8.8 Urine 03/07/17 Range/Units 20:30 Urine Color Yellow (Yellow) Urine Clarity Clear (Clear) Urine pH 6.5 (5.0-8.0) pH Units Ur Specific [place] 1.013 (1.010-1.025) Urine Protein Negative (Neg-Trace) mg/dL Urine Glucose (UA) Normal (Normal) mg/dL - ABG Interpretation ABG results: PT/INR, D-dimer PT 29.6 Seconds (9.4-12.1) H 03/08/17 04:00 Consult Discharge Plan - Plan Referrals: Christoph Hughes DO [Primary Care Provider] -
[2017-03-08] MEDS ORDERED: *HR* Warfarin 4 MG TABLET PO SCH (18:00)
[2017-03-08] MEDS: *HR* Amiodarone 200 MG TABLET PO SCH (21:05)
[2017-03-08] MEDS: Gabapentin 100 MG CAPSULE PO SCH (21:05)
[2017-03-09] MEDS: Ipratropium/Albuterol Neb 3 ML IH SCH ×3 (00:24→07:48)
[2017-03-09] MEDS: Acetylcysteine 10% 2 ML INHSOL IH SCH ×5 (00:24→21:41)
[2017-03-09 04:23] LABS: INR 2.5; Prothrombin Time 27.4 Seconds (9.4-12.1)
--- NOTE | 2017-03-09 07:34 | Pulmonology Progress Note ---
Date of Encounter: 03/09/17 Time of Encounter: 07:30 Assessment and Plan (1) COPD (chronic obstructive pulmonary disease) Current Visit: No Status: Chronic To continue Symbicort , if she has episodic wheezing it is reasonable try to Xopenex as needed for wheezing . Will hold off oral steroids will monitor her symptoms. Qualifiers: COPD type: COPD with acute exacerbation Qualified Code(s): J44.1 - Chronic obstructive pulmonary disease with (acute) exacerbation (2) Acute and chronic respiratory failure Current Visit: No Status: Chronic Patient says she uses 4-5 litres at home. Patient currently on 5-6 litres. This episode more look like diastolic dysfunction secondary to atrial fibrillation with RVR . Patient had some rhonchi i discontinued the duo neb which can worsen the Afib with RVR started on Xopenex and to continue symbicort . Becuase of recent change in color of the sputum . Will start on doxycycline. Qualifiers: Respiratory failure complication: hypoxia and hypercapnia Qualified Code(s) : J96.21 - Acute and chronic respiratory failure with hypoxia; J96.22 - Acute and chronic respiratory failure with hypercapnia (3) Lung cancer Current Visit: Yes Status: Acute Doesnt look like disease progression might able to start chemotherapy this week if she gets stabilized . To start with advanced stage of Lung cancer going to get chemotherapy if this acute condition resolves Qualifiers: Laterality: right Lung location: unspecified part of lung Qualified Code( s): C34.91 - Malignant neoplasm of unspecified part of right bronchus or lung (4) Atrial fibrillation with RVR Current Visit: No Status: Acute Patient worsening Atrial fibrillation with RVR refractory current regimen most likely due to underlying pulmonary issues. Cardiology team is going to start with Amiodarone bolus and Amiodarone gtt. Subjective Principal diagnosis: Afib RVR Interval history: Patient had recurrent episodes of Atrial fibrillation paroxysmal in nature , Cardizem gtt was increased, amiodarone started yesterday . Patient is worsened shortness of breadth , she also had recent change in color of the sputum . HR'S in the monitor shows atrial fibrillation with RVR with HR'S 140-150. Objective PUL Vital signs: Last Vital Signs Temp 97.8 F 03/09/17 06:53 Pulse 100 03/09/17 06:53 Resp 110 03/09/17 06:53 BP 127/95 03/09/17 06:53 Pulse Ox 92 03/09/17 06:53 General appearance: other (mild distress) Effort: mildly labored Auscultation: bilateral: rhonchi Cardiovascular: irregular rhythm Gastrointestinal: normoactive bowel sounds Extremities: edema Results - Laboratory Findings CBC and BMP: 03/07/17 05:30 03/08/17 04:00 PT/INR, D-dimer PT 27.4 Seconds (9.4-12.1) H 03/09/17 04:10 Abnormal lab findings: Abnormal lab results WBC 12.2 K/mcL (4.3-11.1) H 03/07/17 05:30 MCV 81.8 fL (83.0-100.0) L 03/07/17 05:30 MCH 24.7 pg (28.0-33.3) L 03/07/17 05:30 MCHC 30.2 g/dL (31.6-35.5) L 03/07/17 05:30 RDW 17.2 % (11.5-14.5) H 03/07/17 05:30 Neutrophils # 9.0 K/mcL (1.6-8.9) H 03/07/17 05:30 PT 27.4 Seconds (9.4-12.1) H 03/09/17 04:10 APTT 43.1 Seconds (26.0-36.0) H 03/07/17 05:30 Carbon Dioxide 31 mEq/L (19-29) H 03/08/17 04:00 BUN 26 mg/dL (7-20) H 03/08/17 04:00 BUN/Creatinine Ratio 29 (6-26) H 03/08/17 04:00 Glucose 102 mg/dL (70-99) H 03/08/17 04:00 POC Glucose 163 (58-89) H 03/08/17 20:36 Triglycerides 249 mg/dL (< 150) H 03/07/17 05:30 VLDL Cholesterol, Calc 50 mg/dL (< 31) H 03/07/17 05:30 - Clinical Findings Intake & Output: Intake & Output 03/08/17 03/08/17 03/09/17 15:59 23:59 07:59 Intake Total 240 / 240 201.1 / 201.1 23.9 / 23.9 Output Total 250 / 250 Balance 240 / 240 -48.9 / -48.9 23.9 / 23.9 Weight 54 kg Consult Discharge Plan - Plan Referrals: Manuel Andrade, VANESSA [Advanced Practice Nurse] - 03/23/17 1:00 pm Christoph Hughes DO [Primary Care Provider] -
[2017-03-09] MEDS: Budesonide/Formoterol 160/4.5 MDI IH SCH ×2 (07:48→21:40)
--- NOTE | 2017-03-09 08:12 | Cardiology Progress Note ---
Date of Encounter: 03/09/17 Time of Encounter: 08:15 Assessment and Plan (1) Atrial fibrillation with rapid ventricular response Current Visit: Yes Status: Acute Per Cardiology: History of paroxysmal atrial fibrillation that initially developed in setting of retroperitoneal bleed with acute blood loss with transfusion. Continues to have recurrent episodes of afib RVR. Sotalol washout-- last dose Wednesday am. On IV Cardizem gtt at 15mg/hr. Now on amiodarone 200mg PO BID. Currently afib RVR 130's-150's, will obtain ECG and discuss with Dr. Nabeel Parry gtt. On Coumadin managed by [facility]. INR 2.5. Will need to monitor closely and adjust Coumadin with addition of amiodarone. (2) Acute and chronic respiratory failure Current Visit: No Status: Acute Per Cardiology: Pulm following. Clinically stable and appears about her baseline. 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 Pulm following. Reports starting chemo Wednesday. Patient is DNR /DNI/CCA. I had preliminary discussions with family regarding re-consult palliative to evaluate long-term goals (Hospice). Qualifiers: Laterality: right Lung location: unspecified part of lung Qualified Code( s): C34.91 - Malignant neoplasm of unspecified part of right bronchus or lung (4) CAD (coronary artery disease) Current Visit: Yes Status: Chronic Per Cardiology: Trops negative x 3. CP free. Known history of CAD with CABG x 3 at [facility] in 2007. Negative stress test 2013. Last echo 09/2016 showed EF 65-70%, mechanical MV well seated, NSWMA. Qualifiers: Coronary Disease-Associated Artery/Lesion type: [place] artery [place] vs. transplanted heart: [place] heart Associated angina: without angina Qualified Code(s): I25.10 - Atherosclerotic heart disease of [place] coronary artery without angina pectoris (5) H/O mitral valve replacement with mechanical valve Current Visit: No Status: Chronic Per Cardiology: Has a history of mechanical mitral valve replacement with [facility] Tj valve at [facility] in 2007 with last echo September 2016 showing normal functioning mechanical mitral valve. Remains on Coumadin being managed by [facility] with target INR 2.5-3.5. Discussion w patient/family: The assessment and plan as outlined above was discussed with the patient and/or family members who expressed understanding and agreement. All questions were answered. Thank you for involving us in the care of your patient. Please call with any questions. Subjective Principal diagnosis: Afib RVR Interval history: Patient reports she "had a rough night ". Reports rapid heart rate with palpitations, increased shortness of breath from baseline and overall anxiousness. She denies any chest pain. Denies any dizziness. Denies any active bleeding or blood loss. Objective Vital Signs, Last 4 Hours Temp Pulse Resp BP Pulse Ox 03/09/17 06:53 97.8 F 100 110 127/95 92 03/09/17 06:43 108 114/70 03/09/17 06:30 105 113/76 03/09/17 06:15 106 109/73 03/09/17 05:45 91 118/75 03/09/17 05:30 99 113/70 03/09/17 05:15 110 104/78 03/09/17 05:00 120 100/72 03/09/17 04:45 86 99/65 03/09/17 04:30 87 96/79 03/09/17 04:15 97.9 F 111 18 112/82 99 General: Conversant HEENT: Atraumatic, Normocephaly, Mucus Membranes Moist Cardiac: No Murmur, Other (Irregularly irregular) Lungs: Other (Diminished throughout, mild conversational dyspnea noted) Neuro: Alert and responsive, No focal deficits noted Skin: No rashes noted on visualized skin Extremities: No Edema, Normal Pulses Results 03/07/17 05:30 03/08/17 04:00 Lab Results 03/09/17 04:10 INR 2.5 Active Medications Acetaminophen (Tylenol) 650 mg PO Q6HR PRN PRN Reason: Mild Pain (1-3) Stop: 09/05/17 18:30 Hydrocodone Bitart/Acetaminophen ([place] 5-325 Mg) 1 tab PO Q4HR PRN PRN Reason: Moderate Pain (4-6) Stop: 09/05/17 18:30 Last Admin: 03/08/17 21:04 Dose: 1 tab Acetylcysteine (Acetylcysteine 10%) 2 ml IH [id number] CAYLA Stop: 09/05/17 23:01 Last Admin: 03/09/17 07:48 Dose: Not Given Albuterol/Ipratropium (Duoneb) 3 ml IH [id number] [facility] Stop: 09/05/17 20:01 Last Admin: 03/09/17 07:48 Dose: Not Given Allopurinol (Zyloprim) 100 mg PO DAILY CAYLA Stop: 09/06/17 09:01 Last Admin: 03/08/17 09:42 Dose: 100 mg Amiodarone HCl (Cordarone) 200 mg PO BID [facility] Stop: 09/07/17 21:01 Last Admin: 03/08/17 21:05 Dose: 200 mg Atorvastatin Calcium (Lipitor) 10 mg PO HS [facility] Stop: 09/05/17 21:01 Last Admin: 03/08/17 21:04 Dose: 10 mg Budesonide/Formoterol Fumarate (Symbicort) 2 puff IH BIDR [facility] PRN Reason: Protocol Stop: 09/06/17 10:01 Last Admin: 03/09/17 07:48 Dose: 2 puff Calcium Carbonate (Tums) 500 mg PO BID [facility] Stop: 09/05/17 21:01 Last Admin: 03/08/17 21:05 Dose: 500 mg Dextrose/Water (Dextrose 50% (Syg)) 25 ml IVP AD PRN PRN Reason: Hypoglycemia Stop: 09/05/17 18:48 Fluticasone Propionate (Flonase) 50 mcg NS DAILY [facility] PRN Reason: Protocol Stop: 09/06/17 09:01 Last Admin: 03/08/17 09:42 Dose: 50 mcg Folic Acid (Folic Acid) 1 mg PO DAILY [facility] Stop: 09/06/17 09:01 Last Admin: 03/08/17 09:42 Dose: 1 mg Furosemide (Lasix) 40 mg PO BIDDIURETIC [facility] Stop: 09/05/17 21:01 Last Admin: 03/08/17 16:58 Dose: 40 mg Gabapentin (Neurontin) 200 mg PO HS [facility] Stop: 09/05/17 21:01 Last Admin: 03/08/17 21:05 Dose: 200 mg Glucagon (Glucagen) 1 mg IM ONCE PRN PRN Reason: Hypoglycemia Stop: 09/05/17 18:48 Glucose (Gluctose) 15 gm PO ONCE PRN PRN Reason: Hypoglycemia Stop: 09/05/17 18:48 Glucose (Gluctose) 30 gm PO ONCE PRN PRN Reason: Hypoglycemia Stop: 09/05/17 18:48 Dextrose (Dextrose 5%) 1,000 mls @ 100 mls/hr IVC .Q10H PRN PRN Reason: HYPOGLYCEMIA Stop: 09/05/17 18:48 Diltiazem HCl 125 mg/ Dextrose 125 mls @ 5 mls/hr IVC .Q24H CAYLA; 5 MG/HR PRN Reason: Protocol Stop: 09/07/17 00:16 Last Admin: 03/09/17 00:51 Dose: 15 mg/hr, 15 mls/hr Doxycycline Hyclate 100 mg/ (Sodium Chloride) 100 mls @ 100 mls/hr IVPB Q12HR [facility] Stop: 09/08/17 18:01 Insulin Human Lispro (Humalog) 0 units SQ TIDAC [facility] PRN Reason: Protocol Stop: 09/06/17 07:31 Last Admin: 03/08/17 16:58 Dose: 4 units Insulin Human Lispro (Humalog) 0 units SQ HS [facility] PRN Reason: Protocol Stop: 09/05/17 21:01 Last Admin: 03/08/17 21:13 Dose: Not Given Levalbuterol HCl (Xopenex) 0.63 mg IH [id number] SCH Stop: 09/08/17 08:01 Loratadine (Claritin) 10 mg PO DAILY [facility] PRN Reason: Protocol Stop: 09/06/17 09:01 Last Admin: 03/08/17 09:42 Dose: 10 mg Montelukast Sodium (Singulair) 10 mg PO DAILY [facility] Stop: 09/06/17 09:01 Last Admin: 03/08/17 09:42 Dose: 10 mg Morphine Sulfate (Morphine Sulfate) 2 mg IVP Q4HR PRN PRN Reason: Severe Pain (7-10) Stop: 09/05/17 18:30 Naloxone HCl (Narcan) 0.4 mg IVP Q2MIN PRN PRN Reason: Opioid Reversal Stop: 09/05/17 18:30 Nitroglycerin (Nitroglycerin) 0.4 mg SL Q5M PRN PRN Reason: Chest Pain Stop: 09/05/17 18:24 Nortriptyline HCl (Pamelor) 10 mg PO [facility] Stop: 09/05/17 21:01 Last Admin: 03/08/17 21:05 Dose: 10 mg Omeprazole (Prilosec) 40 mg PO DAILY [facility] Stop: 09/07/17 09:01 Last Admin: 03/08/17 09:42 Dose: 40 mg Ondansetron HCl (Zofran) 4 mg IVP Q8HR PRN PRN Reason: Nausea And Vomiting Stop: 09/05/17 18:30 Pantoprazole Sodium (Protonix) 40 mg IVP DAILY [facility] Stop: 09/05/17 18:31 Last Admin: 03/08/17 09:42 Dose: 40 mg Pharmacy Profile Note (Patient Taking Own Medication) 0 each PO DAILY [facility] Stop: 09/06/17 09:01 Last Admin: 03/08/17 08:49 Dose: Not Given Pharmacy Profile Note (Patient Taking Own Medication) 0 each PO DAILY [facility] Stop: 09/06/17 09:01 Last Admin: 03/08/17 08:49 Dose: Not Given Potassium Chloride (Potassium Chloride) 20 meq PO DAILY [facility] Stop: 09/06/17 09:01 Last Admin: 03/08/17 09:41 Dose: 20 meq Senna/Docusate Sodium (Senna Plus) 2 each PO BID [facility] PRN Reason: Protocol Stop: 09/05/17 21:01 Last Admin: 03/08/17 21:04 Dose: Not Given Vitamin D (Vitamin D) 1,000 unit PO DAILY [facility] Stop: 09/06/17 09:01 Last Admin: 03/08/17 09:42 Dose: 1,000 unit Warfarin Sodium (Coumadin Perpt) 1 each PO DAILY@1800 PRN PRN Reason: SEE COMMENTS Stop: 09/06/17 18:01 Warfarin Sodium (Coumadin) 4 mg PO DAILY@1800 [facility] Stop: 09/07/17 18:01 Last Admin: 03/08/17 16:58 Dose: 4 mg - EKG Interpretation EKG results cardiology: other (afib 130's-140's) Consult Discharge Plan - Plan Referrals: Christoph Hughes DO [Primary Care Provider] -
--- NOTE | 2017-03-09 08:16 | Electrocardiograph Report ---
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
[2017-03-09] MEDS: Levalbuterol Neb 0.63 MG/3 ML IH SCH ×4 (08:26→21:40)
[2017-03-09] MEDS: (Bifidobacterium Infantis [Align] 4 MG) PO SCH (08:29)
[2017-03-09] MEDS: (Roflumilast [Daliresp] 500 MCG) PO SCH (08:29)
[2017-03-09] MEDS: Insulin LISPRO 300 UNITS/3 ML VIAL SQ SCH ×4 (08:29→20:24)
[2017-03-09] MEDS: Fluticasone Propionate Nasal 50 MCG/SPRAY BOTTLE NS SCH (08:48)
[2017-03-09] MEDS: Cholecalciferol (D-3) 1,000 UNIT TABLET PO SCH (08:48)
[2017-03-09] MEDS: Loratadine 10 MG TABLET PO SCH (08:48)
[2017-03-09] MEDS: Folic Acid 1 MG TABLET PO SCH (08:48)
[2017-03-09] MEDS: Furosemide 40 MG TABLET PO SCH ×2 (08:48→17:15)
[2017-03-09] MEDS: *HR* HYDROcodone/Acet 5/325 mg TABLET PO PRN ×2 (08:48→20:17)
[2017-03-09] MEDS: *HR* Amiodarone 200 MG TABLET PO SCH ×2 (08:48→20:14)
[2017-03-09] MEDS: Sennosides/Docusate Sodium TABLET PO SCH ×2 (08:49→20:13)
[2017-03-09] MEDS ORDERED: Amiodarone Premix 150 MG/100 ML BAG IVPB ONE (11:34)
[2017-03-09] MEDS ORDERED: Amiodarone Premix 360 MG/200 ML BAG IVC ONE ×2 (11:34→12:19)
--- NOTE | 2017-03-09 11:42 | Event Note ---
Date of Encounter: 03/09/17 Time of Encounter: 11:30 - Cardiology Event Note Remains afib RVR. Discussed with Nabeel Francis, will transfer to and proceed with amio bolus and gtt.
[2017-03-09] MEDS ORDERED: Amiodarone Premix 360 MG/200 ML BAG IVC SCH (11:45)
[2017-03-09] MEDS ORDERED: Dextrose Gel 15 GM PO PRN ×2 (12:19)
[2017-03-09] MEDS ORDERED: Nitroglycerin 0.4 MG TAB.SUBL SL PRN (12:19)
[2017-03-09] MEDS ORDERED: *HR* Dextrose 50 % in Water (Syg) 50 ML SYRINGE IVP PRN (12:19)
[2017-03-09] MEDS ORDERED: Acetaminophen 325 MG TABLET PO PRN (12:19)
[2017-03-09] MEDS ORDERED: Warfarin perPT PO PRN (12:19)
[2017-03-09] MEDS ORDERED: Ondansetron 4 MG/2 ML VIAL IVP PRN (12:19)
[2017-03-09] MEDS ORDERED: *HR* Morphine 2 MG/ML SYRINGE IVP PRN (12:19)
[2017-03-09] MEDS ORDERED: Naloxone 0.4 MG/ML INJ IVP PRN (12:19)
[2017-03-09] MEDS ORDERED: D5% in Water 1,000 ML IVC PRN (12:19)
[2017-03-09] MEDS: Doxycycline 100 MG in 0.9 % Sodium Chloride Mini Bag 100 ML IVPB SCH (14:53)
[2017-03-09] MEDS ORDERED: Ipratropium/Albuterol Neb 3 ML IH SCH (16:00)
[2017-03-09] MEDS ORDERED: *HR* Warfarin 3 MG TABLET PO ONE (18:00)
[2017-03-09] MEDS ORDERED: Doxycycline 100 MG in 0.9 % Sodium Chloride Mini Bag 100 ML IVPB SCH (18:00)
[2017-03-09] MEDS ORDERED: *HR* Warfarin 4 MG TABLET PO SCH (18:00)
[2017-03-09] MEDS: Amiodarone Premix 360 MG/200 ML BAG IVC SCH (18:18)
--- NOTE | 2017-03-09 18:32 | Oncology Inp Consult Note ---
Date of Encounter: 03/09/17 Time of Encounter: 17:00 Assessment and Plan (1) Lung cancer Status: Acute Assessment and plan: Metastatic bony disease, stage IV, PDL1/ sequencing studies sent awaiting report - on repeat adrenal gland biopsy. She was scheduled to begin carboplatin, pemetrexed today, patient is again hospitalized with atrial fibrillation and rapid ventricular rate, we discussed in detail multiple comorbidities and risks benefits of chemotherapy again. Hospice option was also discussed in detail. A family wanted to discuss this again with palliative care team. We will obtain PDL1 results soon as available as she wants to consider immunotherapy option once she feels improved. Imaging from 02/23/17 reviewed, patient's family is also concerned about any progression of cancer in the interim, consider reimaging. Will reschedule treatments in a wk. Plan discussed bedside with patient and two daughters. Qualifiers: Laterality: right Lung location: unspecified part of lung Qualified Code( s): C34.91 - Malignant neoplasm of unspecified part of right bronchus or lung - Data of Consult Requesting Physician: Otf Evans MD Primary Care Provider: Christoph Hughes - Consult Narrative Reason for consult: lung cancer History of present illness: Ms. Dewitt is a 71 year old female with a recent diagnosis of metastatic adenocarcinoma-s/p bx 02/05/17 bronchoscopy and a subcarinal lymph node biopsy showed a TTF-1 positive, metastatic carcinoma suggestive of lung primary. PET skeletal mets, lt lung, left adrenal uptake stage IV disease She has then undergone additional biopsy of adrenal for sequencing studies/PDL1 status, results pending. she has been hospitalized twice since then, once with COPD exacerbation, she was scheduled to begin chemotherapy this week but hospitalized with atrial fibrillation, rapid ventricular rate. Patient is on amiodarone, was started on Cardizem drip per records, on coumadin for valuvular/A fib, COPD on home oxygen. That she has not felt well over the last few weeks and wants to feel better. She is short of breath with minimal exertion, palpitations and denies chest pain. Past Med Surg Social Fam HX - Past Medical History Medical history: arthritis, atrial fibrillation, cancer (Adenocarcinoma of the spine and adrenal gland), cardiomyopathy, CHF, COPD, fibromyalgia, hypertension , myocardial infarction, osteoporosis, RA, other Psychiatric history: no psych history - Past Surgical History Surgical History: angioplasty/stent, cholecystectomy, coronary bypass (CABG), heart valve replacement (Mitral valve), orthopedic, other - Social History Smoking Status: Former smoker Packs per day: 1.5 PPD - reports quitting 20 years ago Smokeless Tobacco Status: No Alcohol use: none Drug use: none - Family History Father Age: 62 Race: Family Member Ethnicity: Non- Living Status: Age at : 61 Cause of : Lung cancer Hx Family Cardiac Disorders: Yes (OK, HTN, HD) Hx Family Respiratory Disorders: No Hx Family Cancer: Yes (Lung ) Hx Family GI Disorders: No Hx Family Endocrine Disorder: No Hx Family Neuromuscular Disorders: No Hx Family Neurologic Disorders: No Hx Family HEENT Disorders: No Hx Family Autoimmune Disorders: No Brother Race: Family Member Ethnicity: Non- Living Status: Age at : 38 Cause of : OK Hx Family Cardiac Disorders: Yes (OK) Hx Family Psychosocial Disorders: Yes Mother Age: 63 Race: Family Member Ethnicity: Non- Living Status: Age at : 62 Cause of : Lung cancer Hx Family Cardiac Disorders: No Hx Family Respiratory Disorders: Yes (COPD) Hx Family Cancer: Yes (Lung, bone) Hx Family GI Disorders: No Hx Family Endocrine Disorder: No Hx Family Neuromuscular Disorders: No Hx Family Neurologic Disorders: No Hx Family HEENT Disorders: No Hx Family Autoimmune Disorders: No Medications and Allergies Albuterol Sulfate [Albuterol Inhaler] 1 - 2 puff IH Q4HR PRN 11/24/15 [History] Allopurinol [Zyloprim 100 MG] 100 mg PO DAILY 11/24/15 [History] Budesonide/Formoterol 160/4.5 [Symbicort 160/4.5] 2 puff IH BIDR 11/24/15 [ History] Calcium Carbonate [Calcium] 500 mg PO BID 11/24/15 [History] Cholecalciferol (D-3) [Vitamin D] 2,000 unit PO DAILY 11/24/15 [History] Fluticasone Propionate Nasal [Flonase] 1 spray NS DAILY 11/24/15 [History] Gabapentin [Neurontin] 200 mg PO HS 11/24/15 [History] Loratadine [Claritin] 10 mg PO DAILY 11/24/15 [History] Montelukast [Singulair] 10 mg PO DAILY 11/24/15 [History] Nitroglycerin [Nitrostat] 0.4 mg SL Q5M PRN 11/24/15 [History] Nortriptyline [Pamelor] 10 mg PO HS 11/24/15 [History] Roflumilast [Daliresp] 500 mcg PO DAILY 11/24/15 [History] Vitamin B Complex [B Complex] 1 tab PO DAILY 11/24/15 [History] Umeclidinium [place] [Incruse Ellipta] 1 puff IH DAILY 12/17/15 [History] Atorvastatin [Lipitor] 10 mg PO HS 01/01/16 [History] Albuterol Neb [Proventil Neb] 2.5 mg IH Q4HR PRN 08/25/16 [History] Bifidobacterium Infantis [Align] 4 mg PO DAILY 08/25/16 [History] Oxygen 2 l IN CONT #1 each 08/26/16 [Rx] Esomeprazole Magnesium [Nexium] 40 mg PO DAILY #30 capsule. 10/03/16 [Rx] Furosemide [Lasix] 40 mg PO BID #60 tablet 10/03/16 [Rx] Potassium Chloride [K-Tab ER] 20 meq PO DAILY 02/01/17 [History] Sotalol [Betapace] 80 mg PO Q12H tab 02/11/17 [Rx] Acetylcysteine 10% 2 ml IH Q8H #90 inhsol 03/02/17 [Rx] Folic Acid 1 mg PO DAILY #30 tablet 03/02/17 [Rx] HYDROcodone/Acet 5/325 mg [[place] 5-325 mg] 1 tab PO Q4HR PRN #14 tab 03/02/17 [ Rx] Sennosides/Docusate Sodium [Senna Plus] 2 each PO BID #90 tab 03/02/17 [Rx] Warfarin [Coumadin] 5 mg PO DAILY #0 03/02/17 [Rx] Enoxaparin [Lovenox] 60 mg SQ Q12HR 03/06/17 [History] predniSONE [PredniSONE] See Taper PO AD 03/06/17 [History] 3 Allergy/AdvReac Type Severity Reaction Status Date / Time ceftriaxone Allergy Hives Verified 02/18/17 16:28 ciprofloxacin Allergy Hives Verified 02/18/17 16:28 levofloxacin Allergy Hives Verified 02/18/17 16:28 vancomycin Allergy Rash Verified 02/18/17 16:28 Review of systems: as in HPI otherwise neg Oncology - Exam - Constitutional Vitals: Temp Pulse Resp BP Pulse Ox 97.9 F 133 18 111/89 93 03/09/17 15:58 03/09/17 15:58 03/09/17 16:01 03/09/17 15:58 03/09/17 16:01 General appearance: mild distress - Head Head exam: Present: atraumatic, normal inspection - Eye Eye exam: Present: sclera anicteric - ENT Additional comments: O2 NC - Neck Neck exam: Present: full ROM - Respiratory Respiratory exam: Present: CTAB, wheezes - Cardiovascular Cardiovascular exam: Present: irregular rhythm, +S1, +S2 - GI/Abdominal GI/Abdominal exam: Present: normal bowel sounds, soft - Extremities Exam Extremities exam: Present: normal inspection - Neurological Exam Neurological exam: Present: alert, CN II-XII intact, oriented X3 - Psychiatric Psychiatric exam: Present: normal mood Oncology - Results CTA 02/23/17-Grossly similar appearance of right pleural effusion and masslike consolidative changes throughout the right lower lobe as well as opacification of the bilateral lower lobe bronchi with mucous and/or aspiration. 3. Re- demonstration of mediastinal and right hilar adenopathy 1 which also appears grossly similar to prior exams. 4. 1.5 cm left adrenal lesion corresponding to findings on prior PET-CT and again concerning for metastasis.- Consult Discharge Plan - Plan Referrals: Manuel Andrade CNP [Advanced Practice Nurse] - 03/23/17 1:00 pm Christoph Hughes DO [Primary Care Provider] -
[2017-03-09] MEDS: Gabapentin 100 MG CAPSULE PO SCH (20:12)
[2017-03-09] MEDS: Lactobacillus 1 EACH CAP.SPRINK PO SCH (20:14)
[2017-03-10] MEDS: Doxycycline 100 MG in 0.9 % Sodium Chloride Mini Bag 100 ML IVPB SCH ×2 (02:47→15:21)
[2017-03-10] MEDS: Levalbuterol Neb 0.63 MG/3 ML IH SCH ×4 (03:52→21:54)
[2017-03-10 05:27] LABS: INR 3.1
[2017-03-10] MEDS: Amiodarone Premix 360 MG/200 ML BAG IVC SCH (06:36)
[2017-03-10] MEDS: Insulin LISPRO 300 UNITS/3 ML VIAL SQ SCH ×4 (07:47→20:34)
[2017-03-10] MEDS: Loratadine 10 MG TABLET PO SCH (08:57)
[2017-03-10] MEDS: Folic Acid 1 MG TABLET PO SCH (08:57)
[2017-03-10] MEDS: Lactobacillus 1 EACH CAP.SPRINK PO SCH ×2 (08:57→20:27)
[2017-03-10] MEDS: *HR* Amiodarone 200 MG TABLET PO SCH ×2 (08:58→20:27)
[2017-03-10] MEDS: Furosemide 40 MG TABLET PO SCH ×2 (08:58→18:19)
[2017-03-10] MEDS: Cholecalciferol (D-3) 1,000 UNIT TABLET PO SCH (08:58)
[2017-03-10] MEDS: Fluticasone Propionate Nasal 50 MCG/SPRAY BOTTLE NS SCH (08:59)
[2017-03-10] MEDS: Sennosides/Docusate Sodium TABLET PO SCH ×2 (08:59→20:27)
[2017-03-10] MEDS ORDERED: (Bifidobacterium Infantis [Align] 4 MG) PO SCH (09:00)
[2017-03-10] MEDS ORDERED: Pantoprazole 40 MG VIAL IVP SCH (09:00)
--- NOTE | 2017-03-10 09:40 | Cardiology Progress Note ---
Date of Encounter: 03/10/17 Time of Encounter: 09:38 Assessment and Plan (1) Atrial fibrillation with rapid ventricular response Current Visit: Yes Status: Acute Per Cardiology: History of paroxysmal atrial fibrillation that initially developed in setting of retroperitoneal bleed with acute blood loss with transfusion. Continues to have recurrent episodes of afib RVR. Sotalol washout-- last dose Wednesday am. On IV Cardizem gtt at 7.5mg/hr, amiodarone 200mg PO BID. RVR with HR 130s-150s yesterday so amiodarone gtt was started--currently at 0.5mg/min. HR 110s-120s at beside, improved but still RVR. 12 hr tele AVG HR 100, A-Fib. Obtain EKG today. Continue current meds. Will check back later today. Once rate controlled will transition to PO Cardizem and d/c amio gtt. On Coumadin managed by [facility]. INR 3.1. Will need to monitor closely and adjust Coumadin with addition of amiodarone. (2) H/O mitral valve replacement with mechanical valve Current Visit: No Status: Chronic Per Cardiology: Has a history of mechanical mitral valve replacement with [facility] Tj valve at [facility] in 2007 with last echo September 2016 showing normal functioning mechanical mitral valve. Remains on Coumadin being managed by [facility] with target INR 2.5-3.5. INR 3.1 today. (3) CAD (coronary artery disease) Current Visit: Yes Status: Chronic Per Cardiology: Trops negative x 3. CP free. Known history of CAD with CABG x [address] [facility] in 2007. Negative stress test 2013. Last echo 09/2016 showed EF 65-70%, mechanical MV well seated, [place]MA. Qualifiers: Coronary Disease-Associated Artery/Lesion type: [place] artery [place] vs. 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 Pulm following. Reports starting chemo Wednesday. Patient is DNR /DNI/CCA. Qualifiers: Laterality: right Lung location: unspecified part of lung Qualified Code( s): C34.91 - Malignant neoplasm of unspecified part of right bronchus or lung (5) Acute and chronic respiratory failure Current Visit: No Status: Acute Per Cardiology: Pulm following. Clinically stable and appears about her baseline. Qualifiers: Respiratory failure complication: hypoxia Qualified Code(s): J96.21 - Acute and chronic respiratory failure with hypoxia Discussion w patient/family: The assessment and plan as outlined above was discussed with the patient and/or family members who expressed understanding and agreement. All questions were answered. Thank you for involving us in the care of your patient. Please call with any questions. I will discuss all the above with Dr. Lees and make changes as necessary. Subjective Principal diagnosis: Afib RVR Interval history: Pt reports breathing is mildly improved today. She denies chest pain. She does report palpitations. 12 hr tele AVG HR 100 A-Fib. Objective Vital Signs, Last 4 Hours Pulse Resp BP Pulse Ox 03/10/17 07:00 109 22 103/75 91 03/10/17 06:00 101 18 107/69 97 Vital Signs Temp Pulse Resp BP Pulse Ox 03/10/17 07:00 109 22 103/75 91 03/10/17 06:00 101 18 107/69 97 03/10/17 05:00 91 117/70 03/10/17 04:05 103 104/68 03/10/17 03:53 17 100 03/10/17 03:00 96 104/72 03/10/17 02:00 97 106/67 03/10/17 01:00 97 120/73 03/10/17 00:00 97.9 F 98 104/73 03/09/17 23:00 96 111/70 03/09/17 22:33 119 124/91 03/09/17 21:42 17 92 03/09/17 21:00 104 114/67 03/09/17 20:00 106 18 100/83 91 03/09/17 19:00 98 F 106 18 117/72 91 03/09/17 18:00 110 120/79 03/09/17 17:00 127 99/43 03/09/17 16:01 18 93 03/09/17 16:00 142 112/80 03/09/17 15:58 97.9 F 133 18 111/89 91 03/09/17 15:00 136 101/88 03/09/17 14:00 124 111/89 09/05/17 13:00 134 106/77 03/09/17 12:00 115 96/78 03/09/17 10:30 144 106/79 03/09/17 10:21 20 94 03/09/17 10:00 142 107/55 Intake and Output 03/09/17 03/10/17 03/10/17 23:59 07:59 15:59 Intake Total 365 / 365 550 / 550 240 / 240 Output Total 800 / 800 Balance 365 / 365 -250 / -250 240 / 240 Intake: IV Fluids 125 / 125 300 / 300 Amiodarone Drip Premix 200 / 200 360mg/200mL 360 mg In 200 ml @ 0.5 MG/MIN 16.667 mls/hr IVC CONT [facility] Rx#: [id number] Cardizem 125 MG In 25 / 25 100 / 100 Dextrose 5% 100 ML @ 5 MG /HR 5 mls/hr IVC .Q24H [facility] Rx#:[id number] Doxycycline 100 MG In 0.9 100 / 100 % Sodium Chloride (Mini- Bag +) 100 ML @ 100 mls/ hr IVPB Q12H [facility] Rx#: [id number] Oral 240 / 240 250 / 250 240 / 240 Output: Urine 800 / 800 Other: Meal Dinner Breakfast Percent of Meal Consumed 30% 95% # Voids 2 Blood Glucose* 130 99 General: Conversant, No Apparent Distress HEENT: Atraumatic, Normocephaly, Mucus Membranes Moist Neck: No JVD, Normal carotid pulses Cardiac: Other (irregularly irregular) Lungs: Other (diminished) Neuro: Alert and responsive, No focal deficits noted Abdomen: Soft, Non-Tender Skin: No rashes noted on visualized skin Musculoskeletal: No Chest Wall Tenderness Extremities: No Clubbing, No Cyanosis, No Edema, Normal Pulses Results 03/07/17 05:30 03/08/17 04:00 Lab Results 03/10/17 05:10 INR 3.1 Active Medications Acetaminophen (Tylenol) 650 mg PO Q6HR PRN PRN Reason: Mild Pain (1-3) Stop: 09/05/17 18:30 Hydrocodone Bitart/Acetaminophen ([place] 5-325 Mg) 1 tab PO Q4HR PRN PRN Reason: Moderate Pain (4-6) Stop: 09/05/17 18:30 Last Admin: 03/09/17 20:17 Dose: 1 tab Acetylcysteine (Acetylcysteine 10%) 2 ml IH [id number] [facility] Stop: 09/05/17 23:01 Last Admin: 03/09/17 21:41 Dose: 2 ml Allopurinol (Zyloprim) 100 mg PO DAILY [facility] Stop: 09/06/17 09:01 Last Admin: 03/10/17 08:58 Dose: 100 mg Amiodarone HCl (Cordarone) 200 mg PO BID [facility] Stop: 09/07/17 21:01 Last Admin: 03/10/17 08:58 Dose: 200 mg Atorvastatin Calcium (Lipitor) 10 mg PO HS [facility] Stop: 09/05/17 21:01 Last Admin: 03/09/17 20:14 Dose: 10 mg Budesonide/Formoterol Fumarate (Symbicort) 2 puff IH BIDR [facility] PRN Reason: Protocol Stop: 09/06/17 10:01 Last Admin: 03/09/17 21:40 Dose: 2 puff Calcium Carbonate (Tums) 500 mg PO BID [facility] Stop: 09/05/17 21:01 Last Admin: 03/10/17 08:58 Dose: 500 mg Dextrose/Water (Dextrose 50% (Syg)) 25 ml IVP AD PRN PRN Reason: Hypoglycemia Stop: 09/05/17 18:48 Fluticasone Propionate (Flonase) 50 mcg NS DAILY [facility] PRN Reason: Protocol Stop: 09/06/17 09:01 Last Admin: 03/10/17 08:59 Dose: 50 mcg Folic Acid (Folic Acid) 1 mg PO DAILY [facility] Stop: 09/06/17 09:01 Last Admin: 03/10/17 08:57 Dose: 1 mg Furosemide (Lasix) 40 mg PO BIDDIURETIC [facility] Stop: 09/05/17 21:01 Last Admin: 03/10/17 08:58 Dose: 40 mg Gabapentin (Neurontin) 200 mg PO HS [facility] Stop: 09/05/17 21:01 Last Admin: 03/09/17 20:12 Dose: 200 mg Glucagon (Glucagen) 1 mg IM ONCE PRN PRN Reason: Hypoglycemia Stop: 09/05/17 18:48 Glucose (Gluctose) 15 gm PO ONCE PRN PRN Reason: Hypoglycemia Stop: 09/05/17 18:48 Glucose (Gluctose) 30 gm PO ONCE PRN PRN Reason: Hypoglycemia Stop: 09/05/17 18:48 Amiodarone HCl/Dextrose (Amiodarone Drip Premix 360mg/200ml) 360 mg in 200 mls @ 16.667 mls/hr IVC CONT [facility] PRN Reason: 0.5 MG/MIN Stop: 09/08/17 11:46 Last Admin: 03/10/17 06:36 Dose: 0.5 mg/min, 16.667 mls/hr Dextrose (Dextrose 5%) 1,000 mls @ 100 mls/hr IVC .Q10H PRN PRN Reason: HYPOGLYCEMIA Stop: 09/05/17 18:48 Diltiazem HCl 125 mg/ Dextrose 125 mls @ 5 mls/hr IVC .Q24H [facility]; 5 MG/HR PRN Reason: Protocol Stop: 09/07/17 00:16 Last Admin: 03/10/17 06:35 Dose: 7.5 mg/hr, 7.5 mls/hr Doxycycline Hyclate 100 mg/ (Sodium Chloride) 100 mls @ 100 mls/hr IVPB Q12H [facility] Stop: 09/08/17 14:01 Last Admin: 03/10/17 02:47 Dose: 100 mls/hr Insulin Human Lispro (Humalog) 0 units SQ TIDAC [facility] PRN Reason: Protocol Stop: 09/06/17 07:31 Last Admin: 03/10/17 07:47 Dose: Not Given Insulin Human Lispro (Humalog) 0 units SQ HS [facility] PRN Reason: Protocol Stop: 09/05/17 21:01 Last Admin: 03/09/17 20:24 Dose: Not Given Lactobacillus Acidophilus/Rhamnosus (Culturelle) 1 each PO BID [facility] Stop: 09/08/17 21:01 Last Admin: 03/10/17 08:57 Dose: 1 each Levalbuterol HCl (Xopenex) 0.63 mg IH [id number] [facility] Stop: 09/08/17 08:01 Last Admin: 03/10/17 03:52 Dose: 0.63 mg Loratadine (Claritin) 10 mg PO DAILY [facility] PRN Reason: Protocol Stop: 09/06/17 09:01 Last Admin: 03/10/17 08:57 Dose: 10 mg Montelukast Sodium (Singulair) 10 mg PO DAILY [facility] Stop: 09/06/17 09:01 Last Admin: 03/10/17 08:57 Dose: 10 mg Morphine Sulfate (Morphine Sulfate) 2 mg IVP Q4HR PRN PRN Reason: Severe Pain (7-10) Stop: 09/05/17 18:30 Naloxone HCl (Narcan) 0.4 mg IVP Q2MIN PRN PRN Reason: Opioid Reversal Stop: 09/05/17 18:30 Nitroglycerin (Nitroglycerin) 0.4 mg SL Q5M PRN PRN Reason: Chest Pain Stop: 09/05/17 18:24 Nortriptyline HCl (Pamelor) 10 mg PO HS [facility] Stop: 09/05/17 21:01 Last Admin: 03/09/17 20:25 Dose: Not Given Omeprazole (Prilosec) 40 mg PO DAILY@0730 [facility] Stop: 09/09/17 09:01 Last Admin: 03/10/17 08:59 Dose: 40 mg Ondansetron HCl (Zofran) 4 mg IVP Q8HR PRN PRN Reason: Nausea And Vomiting Stop: 09/05/17 18:30 Pharmacy Profile Note (Patient Taking Own Medication) 0 each PO DAILY [facility] Stop: 09/06/17 09:01 Potassium Chloride (Potassium Chloride) 20 meq PO DAILY [facility] Stop: 09/06/17 09:01 Last Admin: 03/10/17 08:59 Dose: 20 meq Senna/Docusate Sodium (Senna Plus) 2 each PO BID [facility] PRN Reason: Protocol Stop: 09/05/17 21:01 Last Admin: 03/10/17 08:59 Dose: Not Given Vitamin D (Vitamin D) 1,000 unit PO DAILY [facility] Stop: 09/06/17 09:01 Last Admin: 03/10/17 08:58 Dose: 1,000 unit Warfarin Sodium (Coumadin Perpt) 1 each PO DAILY@1800 PRN PRN Reason: SEE COMMENTS Stop: 09/06/17 18:01 - EKG Interpretation EKG results cardiology: other (12 hr tele AVG HR 100bpm, A-Fib) Consult Discharge Plan - Plan Referrals: Manuel Andrade CNP [Advanced Practice Nurse] - 03/23/17 1:00 pm Christoph Hughes DO [Primary Care Provider] - 03/19/17 10:00 am ()
[2017-03-10] MEDS: Budesonide/Formoterol 160/4.5 MDI IH SCH ×2 (10:03→21:55)
[2017-03-10] MEDS: Acetylcysteine 10% 2 ML INHSOL IH SCH ×3 (10:03→21:55)
[2017-03-10] MEDS: (Roflumilast [Daliresp] 500 MCG) PO SCH (10:39)
[2017-03-10 11:46] LABS: Basophils % 0.2 %; Hematocrit 39.2 % (35.3-44.9); Hemoglobin 11.9 g/dL (11.5-15.4); Immature Granulocytes % 1.8 % (0-4); Lymphocytes # 1.1 K/mcL (0.6-4.6); Mean Corpuscular HGB Conc 30.4 g/dL (31.6-35.5); Mean Corpuscular Hemoglobin 24.7 pg (28.0-33.3); Mean Corpuscular Volume 81.3 fL (83.0-100.0); Mean Platelet Volume 9.8 fL (9.4-12.4); Monocytes # 1.4 K/mcL (0.0-1.3); Monocytes % 8.5 %; Neutrophils # 13.4 K/mcL (1.6-8.9); Nucleated Red Blood Cells 0.1 /100 WBC (0); Platelet Count 230 K/mcL (140-400); Red Blood Count 4.82 M/mcL (3.82-4.97); Red Cell Distribution Width 17.2 % (11.5-14.5); Segmented Neutrophils % 82.5 %
[2017-03-10] MEDS: Diltiazem CD (24hr) 240 MG CAPSULE PO SCH (11:47)
[2017-03-10 11:59] LABS: BUN/Creatinine Ratio 21 (6-26); Blood Urea Nitrogen 23 mg/dL (7-20); Calcium 8.4 mg/dL (8.6-10.8); Carbon Dioxide 29 mEq/L (19-29); Chloride 99 mEq/L (98-109); Glucose 226 mg/dL (70-99); Magnesium 1.5 mg/dL (1.6-2.6); Osmolality,Calculated 295 (280-300); Sodium 137 mEq/L (136-145); eGFR For African Americans > 60 (> 60); eGFR For Non-African Americans 50 (> 60)
[2017-03-10 12:00] LABS: Potassium 2.8 mEq/L (3.5-4.5)
--- NOTE | 2017-03-10 12:11 | Pulmonology Progress Note ---
Date of Encounter: 03/10/17 Time of Encounter: 12:30 Assessment and Plan (1) Acute and chronic respiratory failure Current Visit: No Status: Chronic Patient says she uses 4-5 litres at home. Patient currently on 5-6 litres. This episode more look like diastolic dysfunction secondary to atrial fibrillation with RVR . Patient had some rhonchi i discontinued the duo neb which can worsen the Afib with RVR started on Xopenex and to continue symbicort . Becuase of recent change in color of the sputum . Will start on doxycycline. Qualifiers: Respiratory failure complication: hypoxia and hypercapnia Qualified Code(s) : J96.21 - Acute and chronic respiratory failure with hypoxia; J96.22 - Acute and chronic respiratory failure with hypercapnia (2) COPD (chronic obstructive pulmonary disease) Current Visit: No Status: Chronic To continue Symbicort , if she has episodic wheezing it is reasonable to continue Xopenex as needed for wheezing . Will hold off oral steroids will monitor her symptoms. Qualifiers: COPD type: COPD with acute exacerbation Qualified Code(s): J44.1 - Chronic obstructive pulmonary disease with (acute) exacerbation (3) Lung cancer Current Visit: Yes Status: Acute Waiting for Chemotherapy as outpatient Qualifiers: Laterality: right Lung location: unspecified part of lung Qualified Code( s): C34.91 - Malignant neoplasm of unspecified part of right bronchus or lung (4) Atrial fibrillation with RVR Current Visit: No Status: Acute Patient is still in Atrial fibrillation with RVR patient is on amiodarone infusion cardiology following . Subjective Principal diagnosis: Afib RVR Interval history: Patient had recurrent episodes of Atrial fibrillation paroxysmal in nature patient had amiodarone bolus now on infusion still she is A fib with RVR , cardiology is following . Patient has this on and off wheezing same as before . Objective PUL Vital signs: Last Vital Signs Temp 97.4 F L 03/10/17 11:00 Pulse 113 03/10/17 11:00 Resp 20 03/10/17 11:00 BP 118/73 03/10/17 11:00 Pulse Ox 91 03/10/17 11:00 Auscultation: bilateral: wheezes Cardiovascular: irregular rhythm Results - Laboratory Findings CBC and BMP: 03/10/17 11:37 03/10/17 11:37 PT/INR, D-dimer PT 34.0 Seconds (9.4-12.1) H 03/10/17 05:10 Abnormal lab findings: Abnormal lab results WBC 16.2 K/mcL (4.3-11.1) H 03/10/17 11:37 MCV 81.3 fL (83.0-100.0) L 03/10/17 11:37 MCH 24.7 pg (28.0-33.3) L 03/10/17 11:37 MCHC 30.4 g/dL (31.6-35.5) L 03/10/17 11:37 RDW 17.2 % (11.5-14.5) H 03/10/17 11:37 Neutrophils # 13.4 K/mcL (1.6-8.9) H 03/10/17 11:37 Monocytes # 1.4 K/mcL (0.0-1.3) H 03/10/17 11:37 Nucleated RBCs/100 WBC 0.1 /100 WBC (0) H 03/10/17 11:37 PT 34.0 Seconds (9.4-12.1) H 03/10/17 05:10 APTT 43.1 Seconds (26.0-36.0) H 03/07/17 05:30 Potassium 2.8 mEq/L (3.5-4.5) L D 03/10/17 11:37 BUN 23 mg/dL (7-20) H 03/10/17 11:37 Est GFR (Non-Af Amer) 50 (> 60) L 03/10/17 11:37 Glucose 226 mg/dL (70-99) H 03/10/17 11:37 POC Glucose 130 (58-89) H 03/09/17 20:24 Calcium 8.4 mg/dL (8.6-10.8) L 03/10/17 11:37 Magnesium 1.5 mg/dL (1.6-2.6) L 03/10/17 11:37 Triglycerides 249 mg/dL (< 150) H 03/07/17 05:30 VLDL Cholesterol, Calc 50 mg/dL (< 31) H 03/07/17 05:30 - Clinical Findings Intake & Output: Intake & Output 03/09/17 03/10/17 03/10/17 23:59 07:59 15:59 Intake Total 365 / 365 550 / 550 240 / 240 Output Total 800 / 800 Balance 365 / 365 -250 / -250 240 / 240 Consult Discharge Plan - Plan Referrals: Manuel Andrade CNP [Advanced Practice Nurse] - 03/23/17 1:00 pm Christoph Hughes DO [Primary Care Provider] - 03/19/17 10:00 am ()
--- NOTE | 2017-03-10 12:28 | Electrocardiograph Report ---
[place] [address] Test Date: 2017-03-07 Pat Name: Yasmeen Dewitt Department: 111 Room: 11 Gender: F Director Of Science: [facility] : 1945 Requested By: Otf Evans Order Number: [id number] Reading MD: Lori Fierro Measurements Intervals [place] Rate: 143 P: [place]: 0 QRS: 51 QRSD: 70 T: 33 QT: 288 QTc: 371 Interpretive Statements ATRIAL FIBRILLATION WITH RAPID VENTRICULAR RESPONSE MODERATE ST DEPRESSION Electronically Signed On 03-10-2017 12:26:32 EDT by Lori Fierro
[2017-03-10] MEDS ORDERED: Magnesium Sulfate 2 GM in D5% in Water 100 ML IVPB ONE (14:07)
--- NOTE | 2017-03-10 14:18 | Oncology Inp Progress Note ---
<Capri Jordan - Last Filed: 03/10/17 14:12> Date of Encounter: 03/10/17 Time of Encounter: 13:15 (1) Lung cancer Current Visit: Yes Status: Acute Assessment and plan: Awaiting Adrenal bx results, and PDL1 testing. Will ask palliative care to see patient Plan to start chemotherapy next week. Will need f/u scheduled upon discharge. Qualifiers: Laterality: right Lung location: unspecified part of lung Qualified Code( s): C34.91 - Malignant neoplasm of unspecified part of right bronchus or lung Oncology: Subj Interval history: Patient seen and examined at bedside, records reviewed. Patient reports that she does not really feel much better. Still short of breath even with talking. She does want to have chemotherapy after discharge. She understands that chemotherapy doses with be reduced secondary to her overall condition and other health problems. We are waiting PDL1 testing to determine if immunotherapy is an option. She is concerned about not having proper O2 concentrator at home to meet her needs. Upon discharge she will need f/u with oncology. - Constitutional Vitals: Vital Signs Temp Pulse Resp BP Pulse Ox 03/10/17 11:00 97.4 F L 113 20 118/73 91 03/10/17 10:04 20 95 03/10/17 07:00 109 22 103/75 91 03/10/17 06:00 101 18 107/69 97 03/10/17 05:00 91 117/70 03/10/17 04:05 103 104/68 03/10/17 03:53 17 100 03/10/17 03:00 96 104/72 03/10/17 02:00 97 106/67 03/10/17 01:00 97 120/73 03/10/17 00:00 97.9 F 98 104/73 03/09/17 23:00 96 111/70 03/09/17 22:33 119 124/91 03/09/17 21:42 17 92 03/09/17 21:00 104 114/67 03/09/17 20:00 106 18 100/83 91 03/09/17 19:00 98 F 106 18 117/72 91 03/09/17 18:00 110 120/79 03/09/17 17:00 127 99/43 03/09/17 16:01 18 93 03/09/17 16:00 142 112/80 09/05/17 15:58 97.9 F 133 18 111/89 91 03/09/17 15:00 136 101/88 Intake and Output 03/09/17 03/10/17 03/10/17 23:59 07:59 15:59 Intake Total 365 / 365 550 / 550 240 / 240 Output Total 800 / 800 Balance 365 / 365 -250 / -250 240 / 240 Intake: IV Fluids 125 / 125 300 / 300 Amiodarone Drip Premix 200 / 200 360mg/200mL 360 mg In 200 ml @ 0.5 MG/MIN 16.667 mls/hr IVC CONT [facility] Rx#: [id number] Cardizem 125 MG In 25 / 25 100 / 100 Dextrose 5% 100 ML @ 5 MG /HR 5 mls/hr IVC .Q24H [facility] Rx#:[id number] Doxycycline 100 MG In 0.9 100 / 100 % Sodium Chloride (Mini- Bag +) 100 ML @ 100 mls/ hr IVPB Q12H [facility] Rx#: [id number] Oral 240 / 240 250 / 250 240 / 240 Output: Urine 800 / 800 Other: Meal Dinner Breakfast Percent of Meal Consumed 30% 95% # Voids 2 Blood Glucose* 130 99 General appearance: cooperative, mild distress - Head Head exam: Present: normal inspection, normocephalic - ENT ENT exam: Present: mucous membranes moist - Respiratory Respiratory exam: Present: decreased breath sounds, rhonchi, wheezes Additional comments: bilateral, O2 on at 6 LMP - Cardiovascular Cardiovascular exam: Present: RRR - GI/Abdominal GI/Abdominal exam: Present: soft (non tender) - Extremities Exam Extremities exam: Present: pedal edema (mild with brownish discoloration of lower legs.) Oncology: Obj Data - Labs CBC & Chem 7: 03/10/17 11:37 03/10/17 11:37 Labs: Laboratory Results - last 24 hr 03/09/17 03/09/17 03/10/17 15:56 20:24 05:10 WBC RBC Hgb Hct MCV MCH MCHC RDW Plt Count MPV Immature Gran % Seg Neutrophils % Lymphocytes % Monocytes % Eosinophils % Basophils % Neutrophils # Lymphocytes # Monocytes # Eosinophils # Basophils # Nucleated RBCs/100 WBC PT 34.0 H INR 3.1 Sodium Potassium Chloride Carbon Dioxide BUN Creatinine Est GFR ( Amer) Est GFR (Non-Af Amer) BUN/Creatinine Ratio Glucose POC Glucose 134 H 130 H Calculated Osmolality Calcium Magnesium 03/10/17 03/10/17 11:37 11:37 WBC 16.2 H RBC 4.82 Hgb 11.9 Hct 39.2 MCV 81.3 L MCH 24.7 L MCHC 30.4 L RDW 17.2 H Plt Count 230 MPV 9.8 Immature Gran % 1.8 Seg Neutrophils % 82.5 Lymphocytes % 7.0 Monocytes % 8.5 Eosinophils % 0.0 Basophils % 0.2 Neutrophils # 13.4 H Lymphocytes # 1.1 Monocytes # 1.4 H Eosinophils # 0.0 Basophils # 0.0 Nucleated RBCs/100 WBC 0.1 H PT INR Sodium 137 Potassium 2.8 L D Chloride 99 Carbon Dioxide 29 BUN 23 H Creatinine 1.09 Est GFR ( Amer) > 60 Est GFR (Non-Af Amer) 50 L BUN/Creatinine Ratio 21 Glucose 226 H POC Glucose Calculated Osmolality 295 Calcium 8.4 L Magnesium 1.5 L - ABG Interpretation ABG results: PT/INR, D-dimer PT 34.0 Seconds (9.4-12.1) H 03/10/17 05:10 Consult Discharge Plan - Plan Referrals: Manuel Andrade CNP [Advanced Practice Nurse] - 03/23/17 1:00 pm Christoph Hughes DO [Primary Care Provider] - 03/19/17 10:00 am () <Niesha Cherry - Last Filed: 03/10/17 17:19> Date of Encounter: 03/10/17 (1) Lung cancer Current Visit: Yes Status: Acute Assessment and plan: I examined this patient and my medical decision-making was reviewed with the Advanced Practice Nurse. I agree with the documented findings, disposition and treatment plan as described except to the extent set forth below. Qualifiers: Laterality: right Lung location: unspecified part of lung Qualified Code( s): C34.91 - Malignant neoplasm of unspecified part of right bronchus or lung - Constitutional Vitals: Vital Signs Temp Pulse Resp BP Pulse Ox 03/10/17 16:29 97.7 F 120 22 110/85 93 03/10/17 15:51 20 92 03/10/17 11:00 97.4 F L 113 20 118/73 91 03/10/17 10:04 20 95 03/10/17 07:00 109 22 103/75 91 03/10/17 06:00 101 18 107/69 97 03/10/17 05:00 91 117/70 03/10/17 04:05 103 104/68 03/10/17 03:53 17 100 03/10/17 03:00 96 104/72 03/10/17 02:00 97 106/67 03/10/17 01:00 97 120/73 03/10/17 00:00 97.9 F 98 104/73 03/09/17 23:00 96 111/70 03/09/17 22:33 119 124/91 03/09/17 21:42 17 92 03/09/17 21:00 104 114/67 03/09/17 20:00 106 18 100/83 91 03/09/17 19:00 98 F 106 18 117/72 91 03/09/17 18:00 110 120/79 Intake and Output 03/10/17 03/10/17 03/10/17 07:59 15:59 23:59 Intake Total 650 / 650 240 / 240 Output Total 800 / 800 Balance -150 / -150 240 / 240 Intake: IV Fluids 400 / 400 Amiodarone Drip Premix 200 / 200 360mg/200mL 360 mg In 200 ml @ 0.5 MG/MIN 16.667 mls/hr IVC CONT [facility] Rx#: [id number] Cardizem 125 MG In 100 / 100 Dextrose 5% 100 ML @ 5 MG /HR 5 mls/hr IVC .Q24H [facility] Rx#:[id number] Doxycycline 100 MG In 0.9 100 / 100 % Sodium Chloride (Mini- Bag +) 100 ML @ 100 mls/ hr IVPB Q12H [facility] Rx#: [id number] Oral 250 / 250 240 / 240 Output: Urine 800 / 800 Other: Meal Breakfast Percent of Meal Consumed 95% Blood Glucose* 99 149 Oncology: Obj Data - Labs CBC & Chem 7: 03/10/17 11:37 03/10/17 11:37 Labs: Laboratory Results - last 24 hr 03/09/17 03/09/17 03/10/17 15:56 20:24 05:10 WBC RBC Hgb Hct MCV MCH MCHC RDW Plt Count MPV Immature Gran % Seg Neutrophils % Lymphocytes % Monocytes % Eosinophils % Basophils % Neutrophils # Lymphocytes # Monocytes # Eosinophils # Basophils # Nucleated RBCs/100 WBC PT 34.0 H INR 3.1 Sodium Potassium Chloride Carbon Dioxide BUN Creatinine Est GFR ( Amer) Est GFR (Non-Af Amer) BUN/Creatinine Ratio Glucose POC Glucose 134 H 130 H Calculated Osmolality Calcium Magnesium 03/10/17 03/10/17 11:37 11:37 WBC 16.2 H RBC 4.82 Hgb 11.9 Hct 39.2 MCV 81.3 L MCH 24.7 L MCHC 30.4 L RDW 17.2 H Plt Count 230 MPV 9.8 Immature Gran % 1.8 Seg Neutrophils % 82.5 Lymphocytes % 7.0 Monocytes % 8.5 Eosinophils % 0.0 Basophils % 0.2 Neutrophils # 13.4 H Lymphocytes # 1.1 Monocytes # 1.4 H Eosinophils # 0.0 Basophils # 0.0 Nucleated RBCs/100 WBC 0.1 H PT INR Sodium 137 Potassium 2.8 L D Chloride 99 Carbon Dioxide 29 BUN 23 H Creatinine 1.09 Est GFR ( Amer) > 60 Est GFR (Non-Af Amer) 50 L BUN/Creatinine Ratio 21 Glucose 226 H POC Glucose Calculated Osmolality 295 Calcium 8.4 L Magnesium 1.5 L - ABG Interpretation ABG results: PT/INR, D-dimer PT 34.0 Seconds (9.4-12.1) H 03/10/17 05:10
--- NOTE | 2017-03-10 14:51 | Electrocardiograph Report ---
[place] [id number] Test Date: 2017-03-09 Pat Name: Yasmeen Dewitt Department: 111 Room: 11 Gender: F [employer] Vehicle [employer] Officer: [facility] : 1945 Requested By: Otf Evans Order Number: [id number] Reading MD: Lori Fierro Measurements Intervals [place] Rate: 125 P: [place]: 0 QRS: 48 QRSD: 74 T: 0 QT: 223 QTc: 297 Interpretive Statements ATRIAL FIBRILLATION WITH RAPID VENTRICULAR RESPONSE NONSPECIFIC ST & T-WAVE ABNORMALITY ABNORMAL RHYTHM ECG Electronically Signed On 03-10-2017 14:49:20 EDT by Lori Fierro
--- NOTE | 2017-03-10 15:35 | Palliative - Consult Note ---
Date of Encounter: 03/10/17 Time of Encounter: 14:00 - Assessment and Plan (1) Constipation by delayed colonic transit Current Visit: Yes Status: Acute Assessment and plan: No bowel movement since the fourth bowel regimen was started yesterday, patient did refuse dose this morning. Continue to watch. (2) Acute and chronic respiratory failure Current Visit: No Status: Chronic Assessment and plan: This is slowly resolving, pulmonary is following plan per pulmonary and hospitalist team. Qualifiers: Respiratory failure complication: hypoxia and hypercapnia Qualified Code(s) : J96.21 - Acute and chronic respiratory failure with hypoxia; J96.22 - Acute and chronic respiratory failure with hypercapnia (3) Diastolic heart failure Current Visit: No Status: Chronic Assessment and plan: Probably made worse by rapid ventricular response atrial fibrillation A. fib is coming into better control being managed by cardiology plan per cardiology. Qualifiers: Heart failure chronicity: chronic Qualified Code(s): I50.32 - Chronic diastolic (congestive) heart failure (4) Rapid atrial fibrillation Current Visit: No Status: Acute Assessment and plan: Being followed by cardiology, plan per cardiology. (5) Goals of care, counseling/discussion Current Visit: No Status: Acute Assessment and plan: CODE STATUS was previously determined to be DNR CCA, DNI patient has reconfirm this. Goals of care as wish to continue to get therapy for her cancer if this is at all possible and this is being planned for by the cancer Center currently. Have some specific questions regarding home care especially palliative home care. No the aides were available, she was told yes about qualifying for higher oxygen social work is working on this currently. Family was also concerned about getting blood drawn through home care and regarding run for the [facility]. At this time social work is working on that as well. (6) Lung cancer Current Visit: Yes Status: Acute Assessment and plan: Patient plans to start chemotherapy as soon as possible. The patient was supposed to start today, be put off until next week, as already noted the patient is excited to start chemotherapy. Qualifiers: Laterality: right Lung location: unspecified part of lung Qualified Code( s): C34.91 - Malignant neoplasm of unspecified part of right bronchus or lung Palliative-CN HPI - Data of Consult Patient: known to practice within the last 3 years Requesting Physician: Otf Evans MD Primary Care Provider: Christoph Hughes - Consult Narrative Palliative Care/Comfort Measures: Palliative care History of present illness: Ms. Dewitt is a 71 year old female Well-known to me from previous hospitalization and previous consultation. She has a history of metastatic lung cancer for which she was supposed to get chemotherapy started today. Civics of the chemotherapy are still pending regarding some of her wincing specifically PDL 1. She is looking forward to starting her chemotherapy. She get out of the hospital for possibly 4 days and had to come back in because of atrial fibrillation with rapid ventricular response COPD and acute on chronic respiratory failure. At this point in time the palliative care team was consult because the patient and family had rested his regarding palliative home care and wear that fit into the picture with her chemotherapy as were hospice fit in. The patient has no complaints her atrial fibrillation is feeling much better her breathing is much better she has no pain. 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), cardiomyopathy, CHF, COPD, fibromyalgia, hypertension , myocardial infarction, osteoporosis, RA, other Psychiatric history: no psych history - Past Surgical History Surgical History: angioplasty/stent, cholecystectomy, coronary bypass (CABG), heart valve replacement (Mitral valve), orthopedic, other - Social History Smoking Status: Former smoker Packs per day: 1.5 PPD - reports quitting 20 years ago Smokeless Tobacco Status: No Alcohol use: none Drug use: none - Family History Father Age: 62 Race: Family Member Ethnicity: Non- Living Status: Age at : 61 Cause of : Lung cancer Hx Family Cardiac Disorders: Yes (NV, HTN, HD) Hx Family Respiratory Disorders: No Hx Family Cancer: Yes (Lung ) Hx Family GI Disorders: No Hx Family Endocrine Disorder: No Hx Family Neuromuscular Disorders: No Hx Family Neurologic Disorders: No Hx Family HEENT Disorders: No Hx Family Autoimmune Disorders: No Brother Race: Family Member Ethnicity: Non- Living Status: Age at : 38 Cause of : NV Hx Family Cardiac Disorders: Yes (NV) Hx Family Psychosocial Disorders: Yes Mother Age: 63 Race: Family Member Ethnicity: Non- Living Status: Age at : 62 Cause of : Lung cancer Hx Family Cardiac Disorders: No Hx Family Respiratory Disorders: Yes (COPD) Hx Family Cancer: Yes (Lung, bone) Hx Family GI Disorders: No Hx Family Endocrine Disorder: No Hx Family Neuromuscular Disorders: No Hx Family Neurologic Disorders: No Hx Family HEENT Disorders: No Hx Family Autoimmune Disorders: No Medications and Allergies Albuterol Sulfate [Albuterol Inhaler] 1 - 2 puff IH Q4HR PRN 11/24/15 [History] Allopurinol [Zyloprim 100 MG] 100 mg PO DAILY 11/24/15 [History] Budesonide/Formoterol 160/4.5 [Symbicort 160/4.5] 2 puff IH BIDR 11/24/15 [ History] Calcium Carbonate [Calcium] 500 mg PO BID 11/24/15 [History] Cholecalciferol (D-3) [Vitamin D] 2,000 unit PO DAILY 11/24/15 [History] Fluticasone Propionate Nasal [Flonase] 1 spray NS DAILY 11/24/15 [History] Gabapentin [Neurontin] 200 mg PO HS 11/24/15 [History] Loratadine [Claritin] 10 mg PO DAILY 11/24/15 [History] Montelukast [Singulair] 10 mg PO DAILY 11/24/15 [History] Nitroglycerin [Nitrostat] 0.4 mg SL Q5M PRN 11/24/15 [History] Nortriptyline [Pamelor] 10 mg PO HS 11/24/15 [History] Roflumilast [Daliresp] 500 mcg PO DAILY 11/24/15 [History] Vitamin B Complex [B Complex] 1 tab PO DAILY 11/24/15 [History] Umeclidinium [place] [Incruse Ellipta] 1 puff IH DAILY 12/17/15 [History] Atorvastatin [Lipitor] 10 mg PO HS 01/01/16 [History] Albuterol Neb [Proventil Neb] 2.5 mg IH Q4HR PRN 08/25/16 [History] Bifidobacterium Infantis [Align] 4 mg PO DAILY 08/25/16 [History] Oxygen 2 l IN CONT #1 each 08/26/16 [Rx] Esomeprazole Magnesium [Nexium] 40 mg PO DAILY #30 capsule. 10/03/16 [Rx] Furosemide [Lasix] 40 mg PO BID #60 tablet 10/03/16 [Rx] Potassium Chloride [K-Tab ER] 20 meq PO DAILY 02/01/17 [History] Sotalol [Betapace] 80 mg PO Q12H tab 02/11/17 [Rx] Acetylcysteine 10% 2 ml IH Q8H #90 inhsol 03/02/17 [Rx] Folic Acid 1 mg PO DAILY #30 tablet 03/02/17 [Rx] HYDROcodone/Acet 5/325 mg [Darfur 5-325 mg] 1 tab PO Q4HR PRN #14 tab 03/02/17 [ Rx] Sennosides/Docusate Sodium [Senna Plus] 2 each PO BID #90 tab 03/02/17 [Rx] Warfarin [Coumadin] 5 mg PO DAILY #0 03/02/17 [Rx] Enoxaparin [Lovenox] 60 mg SQ Q12HR 03/06/17 [History] predniSONE [PredniSONE] See Taper PO AD 03/06/17 [History] 3 Allergy/AdvReac Type Severity Reaction Status Date / Time ceftriaxone Allergy Hives Verified 02/18/17 16:28 ciprofloxacin Allergy Hives Verified 02/18/17 16:28 levofloxacin Allergy Hives Verified 02/18/17 16:28 vancomycin Allergy Rash Verified 02/18/17 16:28 - Constitutional Constitutional ROS PAL: no decreased appetite, no anorexia, no weight loss - EENT Eyes: no discharge, no pain Ears: no ear discharge, no ear pain Ears, nose, mouth, throat: no facial pain, no hoarseness, no lip swelling - Cardiovascular Cardiovascular ROS: irregular heart rhythm, palpitations, no chest pain at rest , no chest pain with activity - Respiratory Respiratory: dyspnea, chest congestion - Gastrointestinal Gastrointestinal: constipation (No bowel movement since the second), no diarrhea , no nausea, no vomiting - Genitourinary Palliative ROS female: no urinary frequency, no urinary hesitancy, no urinary incontinence - Musculoskeletal Musculoskeletal ROS IM: no back pain, no joint swelling, no muscle weakness - Integumentary ROS Integumentary: no skin pain, no sores - Neurological Neurological ROS: no burning sensations, no confusion, no convulsions - Psychiatric Psychiatric general PM: no depression (No diabetes or thyroid problems.), no difficulty concentrating, no homicidal ideation, no suicidal ideation Palliative Care-Exam - Constitutional Vitals: Temp Pulse Resp BP Pulse Ox 97.4 F L 113 20 118/73 91 03/10/17 11:00 03/10/17 11:00 03/10/17 11:00 03/10/17 11:00 03/10/17 11:00 General appearance: Present: cooperative, mild distress - Head Head Exam: Present: atraumatic, normal inspection - Eye Eye exam: Present: EOMI, normal appearance - ENT ENT exam: Present: mucous membranes moist - Respiratory Respiratory exam: Present: decreased breath sounds - Cardiovascular Cardiovascular exam: Present: irregular rhythm, tachycardia - GI/Abdominal Exam GI/Abdominal exam: Present: normal bowel sounds, soft. Absent: tenderness - Extremities Exam Extremities exam: Present: normal inspection. Absent: pedal edema, tenderness - Neurological Exam Neurological exam: Present: alert, oriented X3 - Psychiatric Psychiatric exam: Present: normal affect, normal mood. Absent: agitated, anxious, flat affect, homicidal ideation, suicidal ideation - Skin Skin exam: Present: dry, warm Internal Medicine - CN: Reslt - Labs CBC & Chem 7: 03/10/17 11:37 03/10/17 11:37 Labs: Short CBC 03/10/17 Range/Units 11:37 WBC 16.2 H (4.3-11.1) K/mcL Hgb 11.9 (11.5-15.4) g/dL Hct 39.2 (35.3-44.9) % Plt Count 230 (140-400) K/mcL Neutrophils # 13.4 H (1.6-8.9) K/mcL BMP 03/10/17 11:37 Sodium 137 Potassium 2.8 L D Chloride 99 Carbon Dioxide 29 BUN 23 H Creatinine 1.09 Glucose 226 H Calcium 8.4 L - ABG Interpretation ABG results: PT/INR, D-dimer PT 34.0 Seconds (9.4-12.1) H 03/10/17 05:10 Consult Discharge Plan - Plan Referrals: Manuel Andrade CNP [Advanced Practice Nurse] - 03/23/17 1:00 pm Christoph Hughes DO [Primary Care Provider] - 03/19/17 10:00 am () Palliative Quality Palliative Quality: Screen for Code Status: Yes, Screen for Goals of Care: Yes, Screen for Pain: Yes, Screen for Nausea/Vomitting: Yes
--- NOTE | 2017-03-10 18:31 | Internal Med Progress Note ---
Date of Encounter: 03/09/17 Time of Encounter: 13:00 - Assessment and plan (1) CKD (chronic kidney disease) stage 3, GFR 30-59 ml/min Current Visit: No Status: Chronic Assessment and plan: Avoid nephrotoxins. Adjust medications according to GFR. Monitor BUN and creatinine daily. (2) Acute respiratory failure with hypoxia Current Visit: No Status: Acute Assessment and plan: Supplemental oxygen by nasal cannula. 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 Continue warfarin, pharmacy to manage dosing, check INR in the morning - Subjective Interval history: This is a late entry note for date of service 03/09/2017 laboratory data are inaccurate. Patient reported shortness of breath, no chest pain, mild to moderate rest, exacerbation by minimal exertion. Unchanged over the last 2 days. She was in A. fib with RVR. - Constitutional Vitals: Temp Pulse Resp BP Pulse Ox 97.7 F 111 22 107/67 93 03/10/17 16:29 03/10/17 18:00 03/10/17 16:29 03/10/17 18:00 03/10/17 16:29 General appearance: Present: cooperative, mild distress, A&O X 3, pleasant, obese, answers questions appropriately - Eye Eye exam: Present: PERRL, conjuntiva pink, sclera anicteric Pupils: Present: PERRL - Respiratory Respiratory exam: Present: CTAB. Absent: accessory muscle use, rales, rhonchi, wheezes - Cardiovascular Cardiovascular exam: Present: irregular rhythm, +S1, +S2, tachycardia. Absent: diastolic murmur, gallop, rubs, systolic murmur - GI/Abdominal GI/Abdominal exam: Present: normal bowel sounds, soft, no peritoneal signs. Absent: distended, tenderness - Extremities Exam Extremities exam: Present: warm, radial pulses palpable and symmetrical. Absent : calf tenderness, cyanotic, pedal edema - Skin Skin exam: Present: dry, intact Internal Medicine: Result - Labs CBC & Chem 7: 03/10/17 11:37 03/10/17 11:37 Labs: Short CBC 03/10/17 Range/Units 11:37 WBC 16.2 H (4.3-11.1) K/mcL Hgb 11.9 (11.5-15.4) g/dL Hct 39.2 (35.4\ 9) % Plt Count 230 (140-400) K/mcL Neutrophils # 13.4 H (1.6-8.9) K/mcL BMP 03/10/17 11:37 Sodium 137 Potassium 2.8 L D Chloride 99 Carbon Dioxide 29 BUN 23 H Creatinine 1.09 Glucose 226 H Calcium 8.4 L - ABG Interpretation ABG results: PT/INR, D-dimer PT 34.0 Seconds (9.4-12.1) H 03/10/17 05:10 Consult Discharge Plan - Plan Referrals: Manuel Andrade CNP [Advanced Practice Nurse] - 03/23/17 1:00 pm Christoph Hughes DO [Primary Care Provider] - 03/19/17 10:00 am ()
--- NOTE | 2017-03-10 18:34 | Internal Med Progress Note ---
Date of Encounter: 03/10/17 Time of Encounter: 15:00 - Assessment and plan (1) CKD (chronic kidney disease) stage 3, GFR 30-59 ml/min Current Visit: No Status: Chronic Assessment and plan: Avoid nephrotoxins. Adjust medications according to GFR. Monitor BUN and creatinine daily. (2) Acute respiratory failure with hypoxia Current Visit: No Status: Acute Assessment and plan: Supplemental oxygen by nasal cannula. 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 Stop oral amiodarone while IV loading. Continue with diltiazem. Appreciated cardiology recommendations. Continue anticoagulation with warfarin. Continue warfarin, pharmacy to manage dosing, check INR in the morning - Subjective Interval history: Patient reported mild shortness of breath, improved from yesterday no chest pain , mild to moderate rest, exacerbation by minimal exertion. She continues to be in atrial fibrillation. - Constitutional Vitals: Temp Pulse Resp BP Pulse Ox 97.7 F 111 22 107/67 93 03/10/17 16:29 03/10/17 18:00 03/10/17 16:29 03/10/17 18:00 03/10/17 16:29 General appearance: Present: cooperative, mild distress, A&O X 3, pleasant, obese, answers questions appropriately - Head Head exam: Present: atraumatic, normocephalic - Respiratory Respiratory exam: Present: CTAB. Absent: accessory muscle use, rales, rhonchi, wheezes - Cardiovascular Cardiovascular exam: Present: irregular rhythm, +S1, +S2, tachycardia. Absent: diastolic murmur, gallop, rubs - GI/Abdominal GI/Abdominal exam: Present: normal bowel sounds, soft, no peritoneal signs. Absent: distended, tenderness - Neurological Exam Neurological exam: Present: CN II-XII intact, oriented X3, no focal deficits. Absent: pronater drift, facial droop, speech deficit Internal Medicine: Result - Labs CBC & Chem 7: 03/10/17 11:37 03/10/17 11:37 Labs: Short CBC 03/10/17 Range/Units 11:37 WBC 16.2 H (4.3-11.1) K/mcL Hgb 11.9 (11.5-15.4) g/dL Hct 39.2 (35.3-44.9) % Plt Count 230 (140-400) K/mcL Neutrophils # 13.4 H (1.6-8.9) K/mcL BMP 03/10/17 11:37 Sodium 137 Potassium 2.8 L D Chloride 99 Carbon Dioxide 29 BUN 23 H Creatinine 1.09 Glucose 226 H Calcium 8.4 L - ABG Interpretation ABG results: PT/INR, D-dimer PT 34.0 Seconds (9.4-12.1) H 03/10/17 05:10 Consult Discharge Plan - Plan Referrals: Manuel Andrade CNP [Advanced Practice Nurse] - 03/23/17 1:00 pm Christoph Hughes DO [Primary Care Provider] - 03/19/17 10:00 am ()
[2017-03-10] MEDS: Gabapentin 100 MG CAPSULE PO SCH (20:27)
[2017-03-10] MEDS: *HR* HYDROcodone/Acet 5/325 mg TABLET PO PRN (20:28)
[2017-03-11] MEDS: Doxycycline 100 MG in 0.9 % Sodium Chloride Mini Bag 100 ML IVPB SCH ×2 (02:52→13:15)
[2017-03-11] MEDS: Levalbuterol Neb 0.63 MG/3 ML IH SCH ×4 (04:14→22:21)
[2017-03-11 04:39] LABS: Basophils % 0.2 %; Hematocrit 34.9 % (35.3-44.9); Hemoglobin 10.9 g/dL (11.5-15.4); Immature Granulocytes % 1.9 % (0-4); Lymphocytes # 1.5 K/mcL (0.6-4.6); Lymphocytes % 12.2 %; Mean Corpuscular HGB Conc 31.2 g/dL (31.6-35.5); Mean Corpuscular Hemoglobin 25.6 pg (28.0-33.3); Mean Corpuscular Volume 81.9 fL (83.0-100.0); Mean Platelet Volume 10.7 fL (9.4-12.4); Monocytes # 1.4 K/mcL (0.0-1.3); Neutrophils # 9.3 K/mcL (1.6-8.9); Nucleated Red Blood Cells 0.2 /100 WBC (0); Platelet Count 197 K/mcL (140-400); Red Blood Count 4.26 M/mcL (3.82-4.97); Red Cell Distribution Width 17.3 % (11.5-14.5); Segmented Neutrophils % 74.7 %
[2017-03-11 04:43] LABS: Prothrombin Time 21.7 Seconds (9.4-12.1)
[2017-03-11 04:53] LABS: BUN/Creatinine Ratio 23 (6-26); Blood Urea Nitrogen 20 mg/dL (7-20); Calcium 8.6 mg/dL (8.6-10.8); Carbon Dioxide 30 mEq/L (19-29); Chloride 101 mEq/L (98-109); Glucose 112 mg/dL (70-99); Magnesium 1.7 mg/dL (1.6-2.6); Osmolality,Calculated 295 (280-300); Potassium 3.1 mEq/L (3.5-4.5); Sodium 141 mEq/L (136-145); eGFR For African Americans > 60 (> 60); eGFR For Non-African Americans > 60 (> 60)
[2017-03-11] MEDS: Diltiazem CD (24hr) 240 MG CAPSULE PO SCH (08:47)
[2017-03-11] MEDS: Lactobacillus 1 EACH CAP.SPRINK PO SCH ×2 (08:47→20:34)
[2017-03-11] MEDS: Loratadine 10 MG TABLET PO SCH (08:48)
[2017-03-11] MEDS: Cholecalciferol (D-3) 1,000 UNIT TABLET PO SCH (08:48)
[2017-03-11] MEDS: Furosemide 40 MG TABLET PO SCH ×2 (08:48→17:46)
[2017-03-11] MEDS: Folic Acid 1 MG TABLET PO SCH (08:48)
[2017-03-11] MEDS: Sennosides/Docusate Sodium TABLET PO SCH ×2 (08:48→20:34)
[2017-03-11] MEDS: *HR* Amiodarone 200 MG TABLET PO SCH ×2 (08:48→20:34)
[2017-03-11] MEDS: Insulin LISPRO 300 UNITS/3 ML VIAL SQ SCH ×4 (08:49→20:29)
[2017-03-11] MEDS: (Roflumilast [Daliresp] 500 MCG) PO SCH (08:50)
[2017-03-11] MEDS: Fluticasone Propionate Nasal 50 MCG/SPRAY BOTTLE NS SCH (08:51)
--- NOTE | 2017-03-11 09:01 | Cardiology Progress Note ---
Date of Encounter: 03/11/17 Time of Encounter: 08:58 Assessment and Plan (1) Atrial fibrillation with rapid ventricular response Current Visit: Yes Status: Acute Per Cardiology: History of paroxysmal atrial fibrillation that initially developed in setting of retroperitoneal bleed with acute blood loss with transfusion. Continues to have recurrent episodes of afib RVR. Sotalol washout-- last dose Wednesday am. Transitioned to PO Cardizem yesterday, CD 240mg daily and weaned off IV Cardizem gtt. Pt on amiodarone 200mg PO BID and amio gtt at 0.5mg/min. RVR with HR 110s. Will stop amio gtt today since she has completed IV loading. Continue PO. Discussed with Dr. Lees, will load with IV Digoxin 250mcg x 3 doses, then start PO tomorrow AM 125mcg. Renal function currently normal. K 3.1 and Mag 1.7--will replace. On Coumadin managed by [facility]. INR 2.0. Goal INR is 2.5-3.5 given her hx of MVR. Will not bridge at this time since INR is borderline--discussed with Dr. Lees. (2) H/O mitral valve replacement with mechanical valve Current Visit: No Status: Chronic Per Cardiology: Has a history of mechanical mitral valve replacement with [facility] T[facility] valve at [facility] in 2007 with last echo September 2016 showing normal functioning mechanical mitral valve. Remains on Coumadin being managed by [facility] with target INR 2.5-3.5. INR 2.0 today. Will not bridge at this time since INR is borderline. Check INR in AM. (3) CAD (coronary artery disease) Current Visit: Yes Status: Chronic Per Cardiology: Trops negative x 3. CP free. Known history of CAD with CABG x 3 at [facility] in 2007. Negative stress test 2013. Last echo 09/2016 showed EF 65-70%, mechanical MV well seated, [place]. Qualifiers: Coronary Disease-Associated Artery/Lesion type: havas[place]ai artery [place] vs. 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 Pulm following. Reports starting chemo Wednesday. Patient is DNR /DNI/CCA. Qualifiers: Laterality: right Lung location: unspecified part of lung Qualified Code( s): C34.91 - Malignant neoplasm of unspecified part of right bronchus or lung (5) Acute and chronic respiratory failure Current Visit: No Status: Acute Per Cardiology: Pulm following. Per pt, dyspnea has worsened since yesterday. Wheezes noted on exam today bilaterally. Qualifiers: Respiratory failure complication: hypoxia Qualified Code(s): J96.21 - Acute and chronic respiratory failure with hypoxia Discussion w patient/family: The assessment and plan as outlined above was discussed with the patient and/or family members who expressed understanding and agreement. All questions were answered. Thank you for involving us in the care of your patient. Please call with any questions. I will discuss all the above with Dr. Lees and make changes as necessary. Subjective Principal diagnosis: Afib RVR Interval history: Pt reports breathing is worse today. She denies chest pain. She reports palpitations. 12 hr tele AVG HR 114 A-Fib. K and Mag remain low--K 3.1, Mag 1.7. INR 2.0. Objective Vital Signs, Last 4 Hours Temp Pulse Resp BP Pulse Ox 03/11/17 08:30 97.9 F 121 24 115/81 85 03/11/17 08:00 97.9 F 121 24 115/81 85 03/11/17 07:31 90/61 Vital Signs Temp Pulse Resp BP Pulse Ox 03/11/17 08:30 97.9 F 121 24 115/81 85 03/11/17 08:00 97.9 F 121 24 115/81 85 03/11/17 07:31 90/61 03/11/17 04:32 114 03/11/17 04:15 16 91 03/11/17 03:05 98.5 F 113 19 94/68 95 03/10/17 23:12 128 03/10/17 23:03 98.4 F 134 16 110/72 92 03/10/17 21:56 20 95 03/10/17 20:15 112 03/10/17 19:30 98.4 F 109 16 115/71 95 03/10/17 18:00 111 107/67 03/10/17 17:00 108 106/77 03/10/17 16:29 97.7 F 120 22 110/85 93 03/10/17 16:00 108 110/85 03/10/17 15:51 20 92 03/10/17 15:00 92 115/76 03/10/17 14:00 115 111/74 03/10/17 13:00 119 111/76 03/10/17 12:00 113 118/69 03/10/17 11:00 97.4 F L 113 20 118/73 91 03/10/17 10:04 20 95 03/10/17 10:00 112 118/73 Intake and Output 03/10/17 03/11/17 03/11/17 23:59 07:59 15:59 Intake Total 100 / 100 350 / 350 0 / 0 Output Total 900 / 900 100 / 100 Balance 100 / 100 -550 / -550 -100 / -100 Intake: IV Fluids 100 / 100 Doxycycline 100 MG In 0.9 100 / 100 % Sodium Chloride (Mini- Bag +) 100 ML @ 100 mls/ hr IVPB Q12H [facility] Rx#: [id number] Oral 350 / 350 0 / 0 Output: Urine 900 / 900 100 / 100 Other: Percent of Meal Consumed 60% Weight 54 kg Blood Glucose* 134 109 109 Patient Weight 03/11/17 23:59 Weight 54 kg Active Medications Acetaminophen (Tylenol) 650 mg PO Q6HR PRN PRN Reason: Mild Pain (1-3) Stop: 09/05/17 18:30 Hydrocodone Bitart/Acetaminophen ([place] 5-325 Mg) 1 tab PO Q4HR PRN PRN Reason: Moderate Pain (4-6) Stop: 09/05/17 18:30 Last Admin: 03/10/17 20:28 Dose: 1 tab Acetylcysteine (Acetylcysteine 10%) 2 ml IH [id number] [facility] Stop: 09/05/17 23:01 Last Admin: 03/10/17 21:55 Dose: 2 ml Allopurinol (Zyloprim) 100 mg PO DAILY [facility] Stop: 09/06/17 09:01 Last Admin: 03/11/17 08:46 Dose: 100 mg Amiodarone HCl (Cordarone) 200 mg PO BID [facility] Stop: 09/07/17 21:01 Last Admin: 03/11/17 08:48 Dose: 200 mg Atorvastatin Calcium (Lipitor) 10 mg PO HS [facility] Stop: 09/05/17 21:01 Last Admin: 03/10/17 20:27 Dose: 10 mg Budesonide/Formoterol Fumarate (Symbicort) 2 puff IH BIDR [facility] PRN Reason: Protocol Stop: 09/06/17 10:01 Last Admin: 03/10/17 21:55 Dose: 2 puff Calcium Carbonate (Tums) 500 mg PO BID [facility] Stop: 09/05/17 21:01 Last Admin: 03/11/17 08:45 Dose: 500 mg Dextrose/Water (Dextrose 50% (Syg)) 25 ml IVP AD PRN PRN Reason: Hypoglycemia Stop: 09/05/17 18:48 Diltiazem HCl (Cardizem Cd) 240 mg PO DAILY [facility] Stop: 09/09/17 11:16 Last Admin: 03/11/17 08:47 Dose: 240 mg Fluticasone Propionate (Flonase) 50 mcg NS DAILY [facility] PRN Reason: Protocol Stop: 09/06/17 09:01 Last Admin: 03/11/17 08:51 Dose: 50 mcg Folic Acid (Folic Acid) 1 mg PO DAILY [facility] Stop: 09/06/17 09:01 Last Admin: 03/11/17 08:48 Dose: 1 mg Furosemide (Lasix) 40 mg PO BIDDIURETIC [facility] Stop: 09/05/17 21:01 Last Admin: 03/11/17 08:48 Dose: 40 mg Gabapentin (Neurontin) 200 mg PO HS [facility] Stop: 09/05/17 21:01 Last Admin: 03/10/17 20:27 Dose: 200 mg Glucagon (Glucagen) 1 mg IM ONCE PRN PRN Reason: Hypoglycemia Stop: 09/05/17 18:48 Glucose (Gluctose) 15 gm PO ONCE PRN PRN Reason: Hypoglycemia Stop: 09/05/17 18:48 Glucose (Gluctose) 30 gm PO ONCE PRN PRN Reason: Hypoglycemia Stop: 09/05/17 18:48 Amiodarone HCl/Dextrose (Amiodarone Drip Premix 360mg/200ml) 360 mg in 200 mls @ 16.667 mls/hr IVC CONT [facility]YLA PRN Reason: 0.5 MG/MIN Stop: 09/08/17 11:46 Last Admin: 03/10/17 06:36 Dose: 0.5 mg/min, 16.667 mls/hr Dextrose (Dextrose 5%) 1,000 mls @ 100 mls/hr IVC .Q10H PRN PRN Reason: HYPOGLYCEMIA Stop: 09/05/17 18:48 Doxycycline Hyclate 100 mg/ (Sodium Chloride) 100 mls @ 100 mls/hr IVPB Q12H [facility] Stop: 09/08/17 14:01 Last Admin: 03/11/17 02:52 Dose: 100 mls/hr Insulin Human Lispro (Humalog) 0 units SQ TIDAC [facility] PRN Reason: Protocol Stop: 09/06/17 07:31 Last Admin: 03/11/17 08:49 Dose: Not Given Insulin Human Lispro (Humalog) 0 units SQ HS [facility] PRN Reason: Protocol Stop: 09/05/17 21:01 Last Admin: 03/10/17 20:34 Dose: Not Given Lactobacillus Acidophilus/Rhamnosus (Culturelle) 1 each PO BID [facility] Stop: 09/08/17 21:01 Last Admin: 03/11/17 08:47 Dose: 1 each Levalbuterol HCl (Xopenex) 0.63 mg IH [id number] [facility] Stop: 09/08/17 08:01 Last Admin: 03/11/17 04:14 Dose: 0.63 mg Loratadine (Claritin) 10 mg PO DAILY [facility] PRN Reason: Protocol Stop: 09/06/17 09:01 Last Admin: 03/11/17 08:48 Dose: 10 mg Montelukast Sodium (Singulair) 10 mg PO DAILY [facility] Stop: 09/06/17 09:01 Last Admin: 03/11/17 08:47 Dose: 10 mg Morphine Sulfate (Morphine Sulfate) 2 mg IVP Q4HR PRN PRN Reason: Severe Pain (7-10) Stop: 09/05/17 18:30 Naloxone HCl (Narcan) 0.4 mg IVP Q2MIN PRN PRN Reason: Opioid Reversal Stop: 09/05/17 18:30 Nitroglycerin (Nitroglycerin) 0.4 mg SL Q5M PRN PRN Reason: Chest Pain Stop: 09/05/17 18:24 Nortriptyline HCl (Pamelor) 10 mg PO HS [facility] Stop: 09/05/17 21:01 Last Admin: 03/10/17 20:27 Dose: 10 mg Omeprazole (Prilosec) 40 mg PO DAILY@0730 [facility] Stop: 09/09/17 09:01 Last Admin: 03/11/17 08:48 Dose: 40 mg Ondansetron HCl (Zofran) 4 mg IVP Q8HR PRN PRN Reason: Nausea And Vomiting Stop: 09/05/17 18:30 Pharmacy Profile Note (Patient Taking Own Medication) 0 each PO DAILY [facility] Stop: 09/06/17 09:01 Last Admin: 03/11/17 08:50 Dose: Not Given Potassium Chloride (Potassium Chloride) 20 meq PO DAILY [facility] Stop: 09/06/17 09:01 Last Admin: 03/11/17 08:47 Dose: 20 meq Senna/Docusate Sodium (Senna Plus) 2 each PO BID [facility] PRN Reason: Protocol Stop: 09/05/17 21:01 Last Admin: 03/11/17 08:48 Dose: 2 each Vitamin D (Vitamin D) 1,000 unit PO DAILY [facility] Stop: 09/06/17 09:01 Last Admin: 03/11/17 08:48 Dose: 1,000 unit Warfarin Sodium (Coumadin Perpt) 1 each PO DAILY@1800 PRN PRN Reason: SEE COMMENTS Stop: 09/06/17 18:01 General: Conversant, No Apparent Distress HEENT: Atraumatic, Normocephaly, Mucus Membranes Moist Neck: No JVD, Normal carotid pulses Cardiac: Other (irregularly irregular) Lungs: Other (bilateral wheezes throughout) Neuro: Alert and responsive, No focal deficits noted Abdomen: Soft, Non-Tender Skin: No rashes noted on visualized skin Musculoskeletal: No Chest Wall Tenderness Extremities: No Clubbing, No Cyanosis, No Edema, Normal Pulses Results 03/11/17 04:26 03/11/17 04:26 Lab Results 03/10/17 03/10/17 03/11/17 11:37 11:37 04:26 WBC 16.2 H Hgb 11.9 Hct 39.2 Plt Count 230 INR 2.0 Sodium 137 Potassium 2.8 L D Chloride 99 Carbon Dioxide 29 BUN 23 H Creatinine 1.09 Glucose 226 H Calcium 8.4 L Magnesium 1.5 L 03/11/17 03/11/17 04:26 04:26 WBC 12.5 H Hgb 10.9 L Hct 34.9 L Plt Count 197 INR Sodium 141 Potassium 3.1 L Chloride 101 Carbon Dioxide 30 H BUN 20 Creatinine 0.86 Glucose 112 H Calcium 8.6 Magnesium 1.7 - Imaging and Cardiology Echo: report reviewed - EKG Interpretation EKG results cardiology: other (12 hr tele AVG HR 114, A-Fib) - VTE Documentation of Mechanical Device: Graduated compression elastic hosiery Consult Discharge Plan - Plan Referrals: Manuel Andrade CNP [Advanced Practice Nurse] - 03/23/17 1:00 pm Christoph Hughes DO [Primary Care Provider] - 03/19/17 10:00 am ()
[2017-03-11] MEDS: *HR* HYDROcodone/Acet 5/325 mg TABLET PO PRN ×2 (09:03→20:38)
[2017-03-11] MEDS: Budesonide/Formoterol 160/4.5 MDI IH SCH ×2 (09:42→22:22)
[2017-03-11] MEDS: Acetylcysteine 10% 2 ML INHSOL IH SCH ×3 (09:43→22:22)
[2017-03-11] MEDS ORDERED: Potassium Chloride 40 MEQ, Lidocaine 1% 2 ML in D5% in Water 500 ML IVPB ONE (10:01)
[2017-03-11] MEDS ORDERED: Magnesium Sulfate 2 GM in D5% in Water 100 ML IVPB ONE (10:02)
[2017-03-11] MEDS: *HR* Digoxin 0.5 MG/2 ML AMPUL IVP SCH ×3 (10:23→17:55)
[2017-03-11] MEDS ORDERED: *HR* Warfarin 3 MG TABLET PO ONE (18:00)
--- NOTE | 2017-03-11 18:25 | Internal Med Progress Note ---
Date of Encounter: 03/11/17 Time of Encounter: 13:00 - Assessment and plan (1) CKD (chronic kidney disease) stage 3, GFR 30-59 ml/min Current Visit: No Status: Chronic Assessment and plan: Avoid nephrotoxins. Adjust medications according to GFR. Monitor BUN and creatinine daily. (2) Acute respiratory failure with hypoxia Current Visit: No Status: Acute Assessment and plan: We will increase supplemental oxygen by nasal cannula to 6 L/m to maintain saturation above 89%. (3) Atrial fibrillation with rapid ventricular response Current Visit: Yes Status: Acute Assessment and plan: Continue director of cardiac rehabilitation, management per cardiology with amiodarone and diltiazem. Continue anticoagulation with warfarin. check INR in the morning - Subjective Interval history: Patient reported moderate shortness of breath, unchanged from yesterday no chest pain, mild to moderate rest, worse with minimal exertion. She continues to be in atrial fibrillation with rapid ventricular response. She requires slightly more oxygen than yesterday, on her usual 5 L she is anywhere from 85-95 %.. - Constitutional Vitals: Temp Pulse Resp BP Pulse Ox 98.1 F 103 20 114/71 96 03/11/17 16:32 03/11/17 16:32 03/11/17 16:32 03/11/17 16:32 03/11/17 16:32 General appearance: Present: cooperative, mild distress, A&O X 3, pleasant, obese, answers questions appropriately - Respiratory Respiratory exam: Present: CTAB. Absent: accessory muscle use, rales, rhonchi, wheezes - Cardiovascular Cardiovascular exam: Present: irregular rhythm, +S1, +S2, tachycardia. Absent: diastolic murmur, gallop, rubs, systolic murmur - GI/Abdominal GI/Abdominal exam: Present: normal bowel sounds, soft, no peritoneal signs. Absent: distended, tenderness - Extremities Exam Extremities exam: Present: warm, radial pulses palpable and symmetrical. Absent : calf tenderness, cyanotic, pedal edema - Neurological Exam Neurological exam: Present: CN II-XII intact, oriented X3, no focal deficits. Absent: pronater drift, facial droop, speech deficit - Skin Skin exam: Present: dry, intact Internal Medicine: Result - Labs CBC & Chem 7: 03/11/17 04:26 03/11/17 04:26 Labs: Short CBC 03/11/17 Range/Units 04:26 WBC 12.5 H (4.3-11.1) K/mcL Hgb 10.9 L (11.5-15.4) g/dL Hct 34.9 L (35.3-44.9) % Plt Count 197 (140-400) K/mcL Neutrophils # 9.3 H (1.6-8.9) K/mcL BMP 03/11/17 04:26 Sodium 141 Potassium 3.1 L Chloride 101 Carbon Dioxide 30 H BUN 20 Creatinine 0.86 Glucose 112 H Calcium 8.6 - ABG Interpretation ABG results: PT/INR, D-dimer PT 21.7 Seconds (9.4-12.1) H 03/11/17 04:26 - VTE Documentation of Mechanical Device: Graduated compression elastic hosiery Consult Discharge Plan - Plan Referrals: Manuel Andrade CNP [Advanced Practice Nurse] - 03/23/17 1:00 pm Christoph Hughes DO [Primary Care Provider] - 03/19/17 10:00 am ()
[2017-03-11] MEDS: Gabapentin 100 MG CAPSULE PO SCH (20:35)
[2017-03-12] MEDS: Doxycycline 100 MG in 0.9 % Sodium Chloride Mini Bag 100 ML IVPB SCH ×2 (03:57→14:31)
[2017-03-12] MEDS: Levalbuterol Neb 0.63 MG/3 ML IH SCH ×4 (04:37→20:31)
[2017-03-12 05:14] LABS: Basophils % 0.3 %; Hematocrit 32.2 % (35.3-44.9); Hemoglobin 9.7 g/dL (11.5-15.4); Immature Granulocytes % 1.9 % (0-4); Lymphocytes # 1.1 K/mcL (0.6-4.6); Lymphocytes % 9.8 %; Mean Corpuscular HGB Conc 30.1 g/dL (31.6-35.5); Mean Corpuscular Hemoglobin 24.7 pg (28.0-33.3); Mean Corpuscular Volume 82.1 fL (83.0-100.0); Mean Platelet Volume 9.7 fL (9.4-12.4); Monocytes # 1.1 K/mcL (0.0-1.3); Monocytes % 9.8 %; Neutrophils # 8.8 K/mcL (1.6-8.9); Nucleated Red Blood Cells 0.2 /100 WBC (0); Platelet Count 166 K/mcL (140-400); Red Blood Count 3.92 M/mcL (3.82-4.97); Red Cell Distribution Width 17.3 % (11.5-14.5); Segmented Neutrophils % 78.2 %
[2017-03-12 05:26] LABS: BUN/Creatinine Ratio 24 (6-26); Blood Urea Nitrogen 19 mg/dL (7-20); Calcium 8.1 mg/dL (8.6-10.8); Carbon Dioxide 30 mEq/L (19-29); Chloride 102 mEq/L (98-109); Glucose 88 mg/dL (70-99); Magnesium 1.6 mg/dL (1.6-2.6); Osmolality,Calculated 288 (280-300); Potassium 3.3 mEq/L (3.5-4.5); Sodium 138 mEq/L (136-145); eGFR For African Americans > 60 (> 60); eGFR For Non-African Americans > 60 (> 60)
[2017-03-12 06:51] LABS: INR 1.6; Prothrombin Time 17.7 Seconds (9.4-12.1)
[2017-03-12] MEDS ORDERED: *HR* Heparin 5,000 UNIT/ML VIAL IVP ONE (07:57)
[2017-03-12] MEDS ORDERED: *HR* Heparin 5,000 UNIT/ML VIAL IVP PRN ×2 (07:57)
[2017-03-12 08:48] LABS: Activated Partial Thrombo Time 34.3 Seconds (26.0-36.0)
[2017-03-12] MEDS: Insulin LISPRO 300 UNITS/3 ML VIAL SQ SCH ×4 (09:10→20:40)
[2017-03-12] MEDS: (Roflumilast [Daliresp] 500 MCG) PO SCH (09:22)
[2017-03-12] MEDS: Fluticasone Propionate Nasal 50 MCG/SPRAY BOTTLE NS SCH (09:22)
[2017-03-12] MEDS: Heparin 25,000 UNIT/500 ML D5W 25,000 UNIT/500 ML MLS IVC SCH (09:23)
[2017-03-12] MEDS: Loratadine 10 MG TABLET PO SCH (09:24)
[2017-03-12] MEDS: *HR* Amiodarone 200 MG TABLET PO SCH ×2 (09:24→20:47)
[2017-03-12] MEDS: Diltiazem CD (24hr) 240 MG CAPSULE PO SCH (09:24)
[2017-03-12] MEDS: Furosemide 40 MG TABLET PO SCH ×2 (09:24→18:24)
[2017-03-12] MEDS: Lactobacillus 1 EACH CAP.SPRINK PO SCH ×2 (09:25→20:47)
[2017-03-12] MEDS: *HR* Digoxin 0.125 MG TABLET PO SCH (09:25)
[2017-03-12] MEDS: Folic Acid 1 MG TABLET PO SCH (09:25)
[2017-03-12] MEDS: Sennosides/Docusate Sodium TABLET PO SCH ×2 (09:25→20:47)
[2017-03-12] MEDS: *HR* HYDROcodone/Acet 5/325 mg TABLET PO PRN ×3 (09:26→20:48)
[2017-03-12] MEDS: Cholecalciferol (D-3) 1,000 UNIT TABLET PO SCH (09:26)
--- NOTE | 2017-03-12 10:14 | Cardiology Progress Note ---
Date of Encounter: 03/12/17 Time of Encounter: 10:12 Assessment and Plan (1) Atrial fibrillation with rapid ventricular response Current Visit: Yes Status: Acute Per Cardiology: History of paroxysmal atrial fibrillation that initially developed in setting of retroperitoneal bleed with acute blood loss with transfusion. Continues to have recurrent episodes of afib RVR. Sotalol washout-- last dose Wednesday am. Has been transitioned to PO Cardizem CD 240mg daily and weaned off IV Cardizem gtt. Pt on amiodarone 200mg PO BID and completed IV amio loading. Loaded with IV Digoxin yesterday, transitioned to PO Digoxin today. HR 90s-110s at bedside. 12 hr tele AVG HR 105, A-Fib. K 3.3 and Mag 1.6--will replace. Increase Cardizem CD to 360mg daily. On Coumadin managed by [facility]. INR 1.6. Goal INR is 2.5-3.5 given her hx of MVR. Started heparin gtt for bridging. Coumadin dosing per pharmacy while inpt. Continue to follow/monitor. (2) H/O mitral valve replacement with mechanical valve Current Visit: No Status: Chronic Per Cardiology: Has a history of mechanical mitral valve replacement with [facility] Tj valve at [facility] in 2007 with last echo September 2016 showing normal functioning mechanical mitral valve. Remains on Coumadin being managed by [facility] with target INR 2.5-3.5. INR 1.6 today. Start heparin gtt for bridging. (3) CAD (coronary artery disease) Current Visit: Yes Status: Chronic Per Cardiology: Trops negative x 3. CP free. Known history of CAD with CABG x 3 at [facility] in 2007. Negative stress test 2013. Last echo 09/2016 showed EF 65-70%, mechanical MV well seated, [place]. Qualifiers: Coronary Disease-Associated Artery/Lesion type: [place] artery [place] vs. 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 Pulm following. Reports starting chemo Wednesday. Patient is DNR /DNI/CCA. Qualifiers: Laterality: right Lung location: unspecified part of lung Qualified Code( s): C34.91 - Malignant neoplasm of unspecified part of right bronchus or lung (5) Acute and chronic respiratory failure Current Visit: No Status: Acute Per Cardiology: Pulm following. Per pt, dyspnea has not improved. Wheezes noted on exam today bilaterally. Qualifiers: Respiratory failure complication: hypoxia Qualified Code(s): J96.21 - Acute and chronic respiratory failure with hypoxia Discussion w patient/family: The assessment and plan as outlined above was discussed with the patient and/or family members who expressed understanding and agreement. All questions were answered. Thank you for involving us in the care of your patient. Please call with any questions. I will discuss all the above with Dr. Lees and make changes as necessary. Subjective Principal diagnosis: Afib RVR Interval history: Pt reports symptoms unchanged from yesterday--still short of breath and having palpitations. Denies chest pain. 12 hr tele AVG HR 105. K 3.3, Mag 1.6, INR 1.6. Objective Vital Signs, Last 4 Hours Temp Pulse Resp BP Pulse Ox 03/12/17 09:18 111 98 03/12/17 07:38 97.4 F L 112 24 140/75 85 Vital Signs Temp Pulse Resp BP Pulse Ox 03/12/17 09:18 111 98 03/12/17 07:38 97.4 F L 112 24 140/75 85 03/12/17 05:00 100 03/12/17 04:38 18 92 03/12/17 03:58 98.3 F 100 18 100/48 95 03/12/17 01:00 117 03/12/17 00:31 97.9 F 104 20 102/56 87 03/11/17 22:25 18 91 03/11/17 21:31 93 03/11/17 20:15 108 03/11/17 20:06 98.5 F 108 18 117/73 91 03/11/17 16:32 98.1 F 103 20 114/71 96 03/11/17 16:30 98.1 F 103 20 114/71 96 03/11/17 15:40 20 96 03/11/17 11:30 98.3 F 110 20 128/71 89 03/11/17 11:16 98.3 F 110 20 128/71 89 Intake and Output 03/11/17 03/12/17 03/12/17 23:59 07:59 15:59 Intake Total 120 / 120 400 / 400 120 / 120 Output Total 0 / 0 600 / 600 Balance 120 / 120 -200 / -200 120 / 120 Intake: Oral 120 / 120 400 / 400 120 / 120 Output: Urine 0 / 0 600 / 600 Other: Meal Dinner Breakfast Percent of Meal Consumed 40% 50% Blood Glucose* 147 116 Vital Signs Temp Pulse Resp BP Pulse Ox 03/12/17 09:18 111 98 03/12/17 07:38 97.4 F L 112 24 140/75 85 03/12/17 05:00 100 03/12/17 04:38 18 92 03/12/17 03:58 98.3 F 100 18 100/48 95 03/12/17 01:00 117 03/12/17 00:31 97.9 F 104 20 102/56 87 03/11/17 22:25 18 91 03/11/17 21:31 93 03/11/17 20:15 108 03/11/17 20:06 98.5 F 108 18 117/73 91 03/11/17 16:32 98.1 F 103 20 114/71 96 03/11/17 16:30 98.1 F 103 20 114/71 96 03/11/17 15:40 20 96 03/11/17 11:30 98.3 F 110 20 128/71 89 03/11/17 11:16 98.3 F 110 20 128/71 89 Intake and Output 03/11/17 03/12/17 03/12/17 23:59 07:59 15:59 Intake Total 120 / 120 400 / 400 120 / 120 Output Total 0 / 0 600 / 600 Balance 120 / 120 -200 / -200 120 / 120 Intake: Oral 120 / 120 400 / 400 120 / 120 Output: Urine 0 / 0 600 / 600 Other: Meal Dinner Breakfast Percent of Meal Consumed 40% 50% Blood Glucose* 147 116 General: Conversant, No Apparent Distress HEENT: Atraumatic, Normocephaly, Mucus Membranes Moist Neck: No JVD, Normal carotid pulses Cardiac: Other (irregularly irregular) Lungs: Other (wheezes bilaterally) Neuro: Alert and responsive, No focal deficits noted Abdomen: Soft, Non-Tender Skin: No rashes noted on visualized skin Musculoskeletal: No Chest Wall Tenderness Extremities: Other (mild LE edema) Results 03/12/17 05:07 03/12/17 05:07 Lab Results 03/12/17 03/12/17 03/12/17 05:07 05:07 06:25 WBC 11.2 H Hgb 9.7 L Hct 32.2 L Plt Count 166 INR 1.6 APTT 34.3 Sodium 138 Potassium 3.3 L Chloride 102 Carbon Dioxide 30 H BUN 19 Creatinine 0.80 Glucose 88 Calcium 8.1 L Magnesium 1.6 Short CBC 03/12/17 Range/Units 05:07 WBC 11.2 H (4.3-11.1) K/mcL Hgb 9.7 L (11.5-15.4) g/dL Hct 32.2 L (35.3-44.9) % Plt Count 166 (140-400) K/mcL Neutrophils # 8.8 (1.6-8.9) K/mcL BMP 03/12/17 Range/Units 05:07 Sodium 138 (136-145) mEq/L Potassium 3.3 L (3.5-4.5) mEq/L Chloride 102 (98-109) mEq/L Carbon Dioxide 30 H (19-29) mEq/L BUN 19 (7-20) mg/dL Creatinine 0.80 (0.57-1.11) mg/dL Glucose 88 (70-99) mg/dL Calcium 8.1 L (8.6-10.8) mg/dL Active Medications Acetaminophen (Tylenol) 650 mg PO Q6HR PRN PRN Reason: Mild Pain (1-3) Stop: 09/05/17 18:30 Hydrocodone Bitart/Acetaminophen ([place] 5-325 Mg) 1 tab PO Q4HR PRN PRN Reason: Moderate Pain (4-6) Stop: 09/05/17 18:30 Last Admin: 03/12/17 09:26 Dose: 1 tab Acetylcysteine (Acetylcysteine 10%) 2 ml IH [id number] [facility] Stop: 09/05/17 23:01 Last Admin: 03/11/17 22:22 Dose: 2 ml Allopurinol (Zyloprim) 100 mg PO DAILY [facility] Stop: 09/06/17 09:01 Last Admin: 03/12/17 09:26 Dose: 100 mg Amiodarone HCl (Cordarone) 200 mg PO BID [facility] Stop: 09/07/17 21:01 Last Admin: 03/12/17 09:24 Dose: 200 mg Atorvastatin Calcium (Lipitor) 10 mg PO HS [facility] Stop: 09/05/17 21:01 Last Admin: 03/11/17 20:35 Dose: 10 mg Budesonide/Formoterol Fumarate (Symbicort) 2 puff IH BIDR CAYLA PRN Reason: Protocol Stop: 09/06/17 10:01 Last Admin: 03/11/17 22:22 Dose: 2 puff Calcium Carbonate (Tums) 500 mg PO BID CAYLA Stop: 09/05/17 21:01 Last Admin: 03/12/17 09:26 Dose: 500 mg Dextrose/Water (Dextrose 50% (Syg)) 25 ml IVP AD PRN PRN Reason: Hypoglycemia Stop: 09/05/17 18:48 Digoxin (Lanoxin) 0.125 mg PO DAILY [facility] Stop: 09/11/17 09:01 Last Admin: 03/12/17 09:25 Dose: 0.125 mg Diltiazem HCl (Cardizem Cd) 240 mg PO DAILY [facility] Stop: 09/09/17 11:16 Last Admin: 03/12/17 09:24 Dose: 240 mg Fluticasone Propionate (Flonase) 50 mcg NS DAILY [facility] PRN Reason: Protocol Stop: 09/06/17 09:01 Last Admin: 03/12/17 09:22 Dose: 50 mcg Folic Acid (Folic Acid) 1 mg PO DAILY CAYLA Stop: 09/06/17 09:01 Last Admin: 03/12/17 09:25 Dose: 1 mg Furosemide (Lasix) 40 mg PO BIDDIURETIC CAYLA Stop: 09/05/17 21:01 Last Admin: 03/12/17 09:24 Dose: 40 mg Gabapentin (Neurontin) 200 mg PO HS [facility] Stop: 09/05/17 21:01 Last Admin: 03/11/17 20:35 Dose: 200 mg Glucagon (Glucagen) 1 mg IM ONCE PRN PRN Reason: Hypoglycemia Stop: 09/05/17 18:48 Glucose (Gluctose) 15 gm PO ONCE PRN PRN Reason: Hypoglycemia Stop: 09/05/17 18:48 Glucose (Gluctose) 30 gm PO ONCE PRN PRN Reason: Hypoglycemia Stop: 09/05/17 18:48 Heparin Sodium (Porcine) (Heparin) 3,800 unit 70 unit/kg (3800 unit) IVP Q6HR PRN PRN Reason: SEE COMMENTS Stop: 09/11/17 07:58 Heparin Sodium (Porcine) (Heparin) 1,900 unit 35 unit/kg (1900 unit) IVP Q6H PRN PRN Reason: SEE COMMENTS Stop: 09/11/17 07:58 Dextrose (Dextrose 5%) 1,000 mls @ 100 mls/hr IVC .Q10H PRN PRN Reason: HYPOGLYCEMIA Stop: 09/05/17 18:48 Doxycycline Hyclate 100 mg/ (Sodium Chloride) 100 mls @ 100 mls/hr IVPB Q12H CAYLA Stop: 09/08/17 14:01 Last Admin: 03/12/17 03:57 Dose: 100 mls/hr Heparin Sodium/Dextrose (Heparin 25,000 Unit/500 Ml D5w) 25,000 unit in 500 mls @ 15.12 mls/hr IVC .Q24H CAYLA; 14 UNIT/KG/HR PRN Reason: Protocol Stop: 09/11/17 08:01 Last Admin: 03/12/17 09:23 Dose: 14 unit/kg/hr, 15.12 mls/hr Insulin Human Lispro (Humalog) 0 units SQ TIDAC CAYLA PRN Reason: Protocol Stop: 09/06/17 07:31 Last Admin: 03/12/17 09:10 Dose: Not Given Insulin Human Lispro (Humalog) 0 units SQ HS CAYLA PRN Reason: Protocol Stop: 09/05/17 21:01 Last Admin: 03/11/17 20:29 Dose: Not Given Lactobacillus Acidophilus/Rhamnosus (Culturelle) 1 each PO BID [facility] Stop: 09/08/17 21:01 Last Admin: 03/12/17 09:25 Dose: 1 each Levalbuterol HCl (Xopenex) 0.63 mg IH [id number] CAYLA Stop: 09/08/17 08:01 Last Admin: 03/12/17 04:37 Dose: 0.63 mg Loratadine (Claritin) 10 mg PO DAILY CAYLA PRN Reason: Protocol Stop: 09/06/17 09:01 Last Admin: 03/12/17 09:24 Dose: 10 mg Montelukast Sodium (Singulair) 10 mg PO DAILY [facility] Stop: 09/06/17 09:01 Last Admin: 03/12/17 09:25 Dose: 10 mg Morphine Sulfate (Morphine Sulfate) 2 mg IVP Q4HR PRN PRN Reason: Severe Pain (7-10) Stop: 09/05/17 18:30 Naloxone HCl (Narcan) 0.4 mg IVP Q2MIN PRN PRN Reason: Opioid Reversal Stop: 09/05/17 18:30 Nitroglycerin (Nitroglycerin) 0.4 mg SL Q5M PRN PRN Reason: Chest Pain Stop: 09/05/17 18:24 Nortriptyline HCl (Pamelor) 10 mg PO HS [facility] Stop: 09/05/17 21:01 Last Admin: 03/11/17 20:34 Dose: 10 mg Omeprazole (Prilosec) 40 mg PO DAILY@0730 [facility] Stop: 09/09/17 09:01 Last Admin: 03/12/17 09:23 Dose: 40 mg Ondansetron HCl (Zofran) 4 mg IVP Q8HR PRN PRN Reason: Nausea And Vomiting Stop: 09/05/17 18:30 Pharmacy Profile Note (Patient Taking Own Medication) 0 each PO DAILY [facility] Stop: 09/06/17 09:01 Last Admin: 03/12/17 09:22 Dose: Not Given Potassium Chloride (Potassium Chloride) 20 meq PO DAILY [facility] Stop: 09/06/17 09:01 Last Admin: 03/12/17 09:25 Dose: 20 meq Senna/Docusate Sodium (Senna Plus) 2 each PO BID CAYLA PRN Reason: Protocol Stop: 09/05/17 21:01 Last Admin: 03/12/17 09:25 Dose: 2 each Vitamin D (Vitamin D) 1,000 unit PO DAILY [facility] Stop: 09/06/17 09:01 Last Admin: 03/12/17 09:26 Dose: 1,000 unit Warfarin Sodium (Coumadin Perpt) 1 each PO DAILY@1800 PRN PRN Reason: SEE COMMENTS Stop: 09/06/17 18:01 - EKG Interpretation EKG results cardiology: other (12 hr tele AVG HR 105, A-Fib) - VTE Documentation of Mechanical Device: Graduated compression elastic hosiery Consult Discharge Plan - Plan Referrals: Manuel Andrade, PRINCIPAL SYSTEMS ARCHITECT [Advanced Practice Nurse] - 03/23/17 1:00 pm Christoph Hughes DO [Primary Care Provider] - 03/19/17 10:00 am ()
[2017-03-12] MEDS ORDERED: Diltiazem CD (24hr) 120 MG CAPSULE PO ONE (10:21)
[2017-03-12] MEDS: Acetylcysteine 10% 2 ML INHSOL IH SCH ×3 (10:41→20:31)
[2017-03-12] MEDS: Budesonide/Formoterol 160/4.5 MDI IH SCH ×2 (10:42→20:32)
--- NOTE | 2017-03-12 13:00 | Event Note ---
Date of Encounter: 03/12/17 Time of Encounter: 10:30 Patient up in chair taking nebulizer. Daughter at bedside. Patient reports still short of breath. Pain controlled with current medications. She is being followed closely by cardiology for afib. Patient still desires to proceed with cancer treatment. Advanced directive were completed during last hospital stay. INR 1.6. Awaiting therapeutic level. Family desires to discuss with cardiology parameters on heart rate for when she should return to hospital. Communicated this to Conrad Valentino TRAIN BRAKE OPERATOR. Palliative will follow from a distance. .
[2017-03-12] MEDS ORDERED: *HR* Warfarin 5 MG TABLET PO ONE (18:00)
--- NOTE | 2017-03-12 18:05 | Internal Med Progress Note ---
Date of Encounter: 03/12/17 Time of Encounter: 18:03 - Assessment and plan (1) CKD (chronic kidney disease) stage 3, GFR 30-59 ml/min Current Visit: No Status: Chronic Assessment and plan: Avoid nephrotoxins. Adjust medications according to GFR. Monitor BUN and creatinine daily. (2) Acute respiratory failure with hypoxia Current Visit: No Status: Acute Assessment and plan: Likely secondary to CHF exacerbation now with a combination of COPD exacerbation. We will treat COPD exacerbation and acute bronchitis with azithromycin and prednisone. Will use bronchodilators. Continue with supplemental oxygen by high flow nasal cannula at 6 L/m to maintain saturation above 89%. (3) Atrial fibrillation with rapid ventricular response Current Visit: Yes Status: Acute Assessment and plan: Appreciate cardiology recommendations. She completed loaded with amiodarone and digoxin. Continue these oral. Continue with diltiazem. 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 Continue anticoagulation with warfarin. check INR in the morning (4) COPD exacerbation Current Visit: No Status: Acute Assessment and plan: This is a new problem for today. I will start prednisone, azithromycin and continued albuterol and ipratropium. - Subjective Interval history: 03/12/2017: Patient reports severe shortness of breath and dyspnea on exertion with minimal exertion which she says is worse from yesterday. She appears very comfortable lying in bed speaking in full sentences while using high flow nasal cannula at 6 L/m. Denies associated chest pain she continues to have cough productive of sputum. 03/11/2017: Patient reported moderate shortness of breath, unchanged from yesterday no chest pain, mild to moderate rest, worse with minimal exertion. She continues to be in atrial fibrillation with rapid ventricular response. She requires slightly more oxygen than yesterday, on her usual 5 L she is anywhere from 85-95%.. - Constitutional Vitals: Temp Pulse Resp BP Pulse Ox 98.3 F 102 20 125/77 98 03/12/17 15:17 03/12/17 15:17 03/12/17 15:17 03/12/17 15:17 03/12/17 15:17 General appearance: Present: cooperative, mild distress, A&O X 3, pleasant, obese, answers questions appropriately - Eye Eye exam: Present: PERRL, conjuntiva pink, sclera anicteric Pupils: Present: PERRL - Respiratory Respiratory exam: Present: wheezes. Absent: accessory muscle use, rales, rhonchi - Cardiovascular Cardiovascular exam: Present: RRR, +S1, +S2. Absent: diastolic murmur, gallop, rubs, systolic murmur - GI/Abdominal GI/Abdominal exam: Present: normal bowel sounds, soft, no peritoneal signs. Absent: distended, tenderness - Extremities Exam Extremities exam: Present: warm, radial pulses palpable and symmetrical. Absent : calf tenderness, cyanotic, pedal edema - Skin Skin exam: Present: dry, intact Internal Medicine: Result - Labs CBC & Chem 7: 03/12/17 05:07 03/12/17 05:07 Labs: Short CBC 03/12/17 Range/Units 05:07 WBC 11.2 H (4.3-11.1) K/mcL Hgb 9.7 L (11.5-15.4) g/dL Hct 32.2 L (35.3-44.9) % Plt Count 166 (140-400) K/mcL Neutrophils # 8.8 (1.6-8.9) K/mcL BMP 03/12/17 05:07 Sodium 138 Potassium 3.3 L Chloride 102 Carbon Dioxide 30 H BUN 19 Creatinine 0.80 Glucose 88 Calcium 8.1 L - ABG Interpretation ABG results: PT/INR, D-dimer PT 17.7 Seconds (9.4-12.1) H 03/12/17 06:25 - VTE Documentation of Mechanical Device: Graduated compression elastic hosiery Consult Discharge Plan - Plan Referrals: Manuel Andrade CNP [Advanced Practice Nurse] - 03/23/17 1:00 pm Christoph Hughes DO [Primary Care Provider] - 03/19/17 10:00 am ()
[2017-03-12] MEDS ORDERED: Ipratropium/Albuterol Neb 3 ML IH SCH (18:15)
[2017-03-12] MEDS: predniSONE 20 MG TABLET PO SCH (18:25)
[2017-03-12] MEDS: Ipratropium Neb 0.5 MG NEBULIZER IH SCH (20:31)
[2017-03-12] MEDS: Doxycycline 100 MG CAPSULE PO SCH (20:47)
[2017-03-12] MEDS: Gabapentin 100 MG CAPSULE PO SCH (20:47)
[2017-03-13] MEDS ORDERED: *HR* LORazepam 0.5 MG TABLET PO ONE (01:43)
[2017-03-13] MEDS: Ipratropium Neb 0.5 MG NEBULIZER IH SCH ×4 (03:50→21:13)
[2017-03-13] MEDS: Levalbuterol Neb 0.63 MG/3 ML IH SCH ×4 (03:50→21:13)
[2017-03-13 05:26] LABS: Basophils % 0.3 %; Hematocrit 34.1 % (35.3-44.9); Hemoglobin 10.3 g/dL (11.5-15.4); Immature Granulocytes % 2.9 % (0-4); Lymphocytes # 0.3 K/mcL (0.6-4.6); Lymphocytes % 4.3 %; Mean Corpuscular HGB Conc 30.2 g/dL (31.6-35.5); Mean Corpuscular Hemoglobin 25.7 pg (28.0-33.3); Mean Platelet Volume 10.9 fL (9.4-12.4); Monocytes # 0.1 K/mcL (0.0-1.3); Monocytes % 1.7 %; Neutrophils # 6.9 K/mcL (1.6-8.9); Platelet Count 148 K/mcL (140-400); Red Blood Count 4.01 M/mcL (3.82-4.97); Red Cell Distribution Width 17.4 % (11.5-14.5); Segmented Neutrophils % 90.8 %
[2017-03-13 05:31] LABS: INR 1.7; Prothrombin Time 18.5 Seconds (9.4-12.1)
[2017-03-13 05:34] LABS: Activated Partial Thrombo Time 80.1 Seconds (26.0-36.0)
[2017-03-13 05:41] LABS: BUN/Creatinine Ratio 22 (6-26); Blood Urea Nitrogen 19 mg/dL (7-20); Calcium 8.2 mg/dL (8.6-10.8); Carbon Dioxide 25 mEq/L (19-29); Chloride 101 mEq/L (98-109); Glucose 176 mg/dL (70-99); Magnesium 1.5 mg/dL (1.6-2.6); Osmolality,Calculated 289 (280-300); Potassium 3.7 mEq/L (3.5-4.5); Sodium 136 mEq/L (136-145); eGFR For African Americans > 60 (> 60); eGFR For Non-African Americans > 60 (> 60)
[2017-03-13] MEDS: *HR* HYDROcodone/Acet 5/325 mg TABLET PO PRN ×3 (08:32→21:17)
[2017-03-13] MEDS: Fluticasone Propionate Nasal 50 MCG/SPRAY BOTTLE NS SCH (08:37)
[2017-03-13] MEDS: Diltiazem CD (24hr) 180 MG CAPSULE PO SCH (08:37)
[2017-03-13] MEDS: Furosemide 40 MG TABLET PO SCH ×2 (08:38→17:40)
[2017-03-13] MEDS: Cholecalciferol (D-3) 1,000 UNIT TABLET PO SCH (08:38)
[2017-03-13] MEDS: predniSONE 20 MG TABLET PO SCH (08:38)
[2017-03-13] MEDS: Sennosides/Docusate Sodium TABLET PO SCH ×2 (08:38→21:02)
[2017-03-13] MEDS: Folic Acid 1 MG TABLET PO SCH (08:38)
[2017-03-13] MEDS: Doxycycline 100 MG CAPSULE PO SCH ×2 (08:38→21:01)
[2017-03-13] MEDS: *HR* Digoxin 0.125 MG TABLET PO SCH (08:38)
[2017-03-13] MEDS: Loratadine 10 MG TABLET PO SCH (08:38)
[2017-03-13] MEDS: Lactobacillus 1 EACH CAP.SPRINK PO SCH ×2 (08:38→21:01)
[2017-03-13] MEDS: *HR* Amiodarone 200 MG TABLET PO SCH (08:38)
[2017-03-13] MEDS: Insulin LISPRO 300 UNITS/3 ML VIAL SQ SCH ×4 (08:43→21:17)
[2017-03-13] MEDS: (Roflumilast [Daliresp] 500 MCG) PO SCH (08:44)
[2017-03-13] MEDS: Heparin 25,000 UNIT/500 ML D5W 25,000 UNIT/500 ML MLS IVC SCH ×2 (08:46→17:40)
[2017-03-13] MEDS: Acetylcysteine 10% 2 ML INHSOL IH SCH ×3 (09:09→21:15)
[2017-03-13] MEDS: Budesonide/Formoterol 160/4.5 MDI IH SCH ×2 (09:10→21:16)
--- NOTE | 2017-03-13 09:42 | Cardiology Progress Note ---
Date of Encounter: 03/13/17 Time of Encounter: 09:40 Assessment and Plan (1) Atrial fibrillation with rapid ventricular response Current Visit: Yes Status: Acute Per Cardiology: History of PAF that initially developed in setting of retroperitoneal bleed with acute blood loss with transfusion. Continues to have recurrent episodes of afib RVR. Sotalol washout-- last dose Wednesday am. Has been transitioned to PO Cardizem CD--increased to 360mg daily. Pt on amiodarone 200mg PO BID and completed IV amio loading. On 125mcg daily PO Digoxin. HR 90s-low 100s at bedside. 12 hr tele AVG HR 95, A-Fib with occasional sinus tach episodes. K 3.7 and Mag 1.5--will replace. On Coumadin managed by [facility]. INR 1.7. Goal INR is 2.5-3.5 given her hx of MVR. On heparin gtt for bridging. Coumadin dosing per pharmacy while inpt. Reports episode of hemoptysis this AM. Stable H&H, known diagnosis of lung cancer. Reports significant worsening dyspnea--now being treated for COPD exacerbation. Symptoms seem to pulmonary related, likely driving the A-Fib. Decrease PO Amio to 200mg daily maintenance dose. ALT, AST and TSH all WNL. Follow-up as outpt in 2-3 weeks. Cardiology signing off. Reconsult PRN. (2) H/O mitral valve replacement with mechanical valve Current Visit: No Status: Chronic Per Cardiology: Has a history of mechanical mitral valve replacement with [facility] valve at [facility] in 2007 with last echo September 2016 showing normal functioning mechanical mitral valve. Remains on Coumadin being managed by [facility] with target INR 2.5-3.5. INR 1.7 today. On heparin gtt for bridging. (3) CAD (coronary artery disease) Current Visit: Yes Status: Chronic Per Cardiology: Trops negative x 3. CP free. Known history of CAD with CABG x 3 at [facility] in 2007. Negative stress test 2013. Last echo 09/2016 showed EF 65-70%, mechanical MV well seated, [place]. Qualifiers: Coronary Disease-Associated Artery/Lesion type: [place] artery [place] vs. 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 Pulm following. Reports starting chemo Wednesday. Patient is DNR /DNI/CCA. Qualifiers: Laterality: right Lung location: unspecified part of lung Qualified Code( s): C34.91 - Malignant neoplasm of unspecified part of right bronchus or lung (5) Acute and chronic respiratory failure Current Visit: No Status: Acute Per Cardiology: Dyspnea worsening--rhonchi on exam. Now being treated for COPD exacerbation. Qualifiers: Respiratory failure complication: hypoxia Qualified Code(s): J96.21 - Acute and chronic respiratory failure with hypoxia Discussion w patient/family: The assessment and plan as outlined above was discussed with the patient and/or family members who expressed understanding and agreement. All questions were answered. Thank you for involving us in the care of your patient. Please call with any questions. I will discuss all the above with Dr. Lees and make changes as necessary. Subjective Principal diagnosis: Afib RVR Interval history: Pt reports shortness of breath has significantly worsened, reports cough--now being treated for COPD exacerbation. Reports having palpitations. Denies chest pain. 12 hr tele AVG HR 95, PAF--mostly A-Fib, occasional sinus tach. K 3.7, Mag 1.5, INR 1.7. Objective Vital Signs, Last 4 Hours Resp Pulse Ox 03/13/17 09:33 16 99 Vital Signs Temp Pulse Resp BP Pulse Ox 03/13/17 09:33 16 99 03/13/17 04:13 22 97 03/13/17 03:50 22 112/70 91 03/13/17 03:45 89 03/12/17 23:43 98.0 F 103 20 112/70 92 03/12/17 23:38 103 03/12/17 22:40 23 96 03/12/17 21:08 100 03/12/17 21:06 95 03/12/17 20:33 98.3 F 102 20 139/70 93 03/12/17 20:31 19 93 03/12/17 18:20 96 95 03/12/17 15:45 20 98 03/12/17 15:17 98.3 F 102 20 125/77 98 03/12/17 14:29 109 99 03/12/17 11:52 98.4 F 109 20 126/58 97 03/12/17 10:49 18 140/75 100 Intake and Output 03/12/17 03/13/17 03/13/17 23:59 07:59 15:59 Intake Total 120 / 120 590 / 590 Output Total 1000 / 1000 Balance 120 / 120 -1000 / -1000 590 / 590 Intake: IV Fluids 350 / 350 Heparin 25,000 UNIT/500 350 / 350 ML D5W 25,000 unit In 500 ml @ 14 UNIT/KG/HR 15.12 mls/hr IVC .Q24H [facility] Rx# :[id number] Oral 120 / 120 240 / 240 Output: Urine 1000 / 1000 Other: Meal Dinner Breakfast Percent of Meal Consumed 75% 70% Blood Glucose* 169 163 General: Conversant, Other (conversational dyspnea) HEENT: Atraumatic, Normocephaly, Mucus Membranes Moist Neck: Normal carotid pulses Cardiac: Other (irregularly irregular) Lungs: Other (rhonchi bilaterally) Neuro: Alert and responsive, No focal deficits noted Abdomen: Soft, Non-Tender Skin: No rashes noted on visualized skin Musculoskeletal: No Chest Wall Tenderness Extremities: No Clubbing, No Cyanosis, No Edema, Normal Pulses Results 03/13/17 04:51 03/13/17 04:51 Lab Results 03/12/17 03/13/17 03/13/17 19:19 04:51 04:51 WBC 7.6 Hgb 10.3 L Hct 34.1 L Plt Count 148 INR APTT 67.6 H D Sodium 136 Potassium 3.7 Chloride 101 Carbon Dioxide 25 BUN 19 Creatinine 0.87 Glucose 176 H Calcium 8.2 L Magnesium 1.5 L 03/13/17 04:51 WBC Hgb Hct Plt Count INR 1.7 APTT 80.1 H Sodium Potassium Chloride Carbon Dioxide BUN Creatinine Glucose Calcium Magnesium Short CBC 03/13/17 Range/Units 04:51 WBC 7.6 (4.3-11.1) K/mcL Hgb 10.3 L (11.5-15.4) g/dL Hct 34.1 L (35.3-44.9) % Plt Count 148 (140-400) K/mcL Neutrophils # 6.9 (1.6-8.9) K/mcL BMP 03/13/17 Range/Units 04:51 Sodium 136 (136-145) mEq/L Potassium 3.7 (3.5-4.5) mEq/L Chloride 101 (98-109) mEq/L Carbon Dioxide 25 (19-29) mEq/L BUN 19 (7-20) mg/dL Creatinine 0.87 (0.57-1.11) mg/dL Glucose 176 H (70-99) mg/dL Calcium 8.2 L (8.6-10.8) mg/dL Active Medications Acetaminophen (Tylenol) 650 mg PO Q6HR PRN PRN Reason: Mild Pain (1-3) Stop: 09/05/17 18:30 Hydrocodone Bitart/Acetaminophen ([place] 5-325 Mg) 1 tab PO Q4HR PRN PRN Reason: Moderate Pain (4-6) Stop: 09/05/17 18:30 Last Admin: 03/13/17 08:32 Dose: 1 tab Acetylcysteine (Acetylcysteine 10%) 2 ml IH Q6OREGL [facility] Stop: 09/05/17 23:01 Last Admin: 03/13/17 09:09 Dose: 2 ml Allopurinol (Zyloprim) 100 mg PO DAILY [facility] Stop: 09/06/17 09:01 Last Admin: 03/13/17 08:38 Dose: 100 mg Amiodarone HCl (Cordarone) 200 mg PO BID [facility] Stop: 09/07/17 21:01 Last Admin: 03/13/17 08:38 Dose: 200 mg Atorvastatin Calcium (Lipitor) 10 mg PO HS [facility] Stop: 09/05/17 21:01 Last Admin: 03/12/17 20:47 Dose: 10 mg Budesonide/Formoterol Fumarate (Symbicort) 2 puff IH BIDR [facility] PRN Reason: Protocol Stop: 09/06/17 10:01 Last Admin: 03/13/17 09:10 Dose: 2 puff Dextrose/Water (Dextrose 50% (Syg)) 25 ml IVP AD PRN PRN Reason: Hypoglycemia Stop: 09/05/17 18:48 Digoxin (Lanoxin) 0.125 mg PO DAILY [facility] Stop: 09/11/17 09:01 Last Admin: 03/13/17 08:38 Dose: 0.125 mg Diltiazem HCl (Cardizem Cd) 360 mg PO DAILY [facility] Stop: 09/12/17 09:01 Last Admin: 03/13/17 08:37 Dose: 360 mg Doxycycline Hyclate (Doxycycline) 100 mg PO BID [facility] Stop: 09/11/17 21:01 Last Admin: 03/13/17 08:38 Dose: 100 mg Fluticasone Propionate (Flonase) 50 mcg NS DAILY [facility] PRN Reason: Protocol Stop: 09/06/17 09:01 Last Admin: 03/13/17 08:37 Dose: 50 mcg Folic Acid (Folic Acid) 1 mg PO DAILY [facility] Stop: 09/06/17 09:01 Last Admin: 03/13/17 08:38 Dose: 1 mg Furosemide (Lasix) 40 mg PO BIDDIURETIC [facility] Stop: 09/05/17 21:01 Last Admin: 03/13/17 08:38 Dose: 40 mg Gabapentin (Neurontin) 200 mg PO HS [facility] Stop: 09/05/17 21:01 Last Admin: 03/12/17 20:47 Dose: 200 mg Glucagon (Glucagen) 1 mg IM ONCE PRN PRN Reason: Hypoglycemia Stop: 09/05/17 18:48 Glucose (Gluctose) 15 gm PO ONCE PRN PRN Reason: Hypoglycemia Stop: 09/05/17 18:48 Glucose (Gluctose) 30 gm PO ONCE PRN PRN Reason: Hypoglycemia Stop: 09/05/17 18:48 Heparin Sodium (Porcine) (Heparin) 3,800 unit 70 unit/kg (3800 unit) IVP Q6HR PRN PRN Reason: SEE COMMENTS Stop: 09/11/17 07:58 Heparin Sodium (Porcine) (Heparin) 1,900 unit 35 unit/kg (1900 unit) IVP Q6H PRN PRN Reason: SEE COMMENTS Stop: 09/11/17 07:58 Dextrose (Dextrose 5%) 1,000 mls @ 100 mls/hr IVC .Q10H PRN PRN Reason: HYPOGLYCEMIA Stop: 09/05/17 18:48 Heparin Sodium/Dextrose (Heparin 25,000 Unit/500 Ml D5w) 25,000 unit in 500 mls @ 15.12 mls/hr IVC .Q24H [facility]; 14 UNIT/KG/HR PRN Reason: Protocol Stop: 09/11/17 08:01 Last Admin: 03/13/17 08:46 Dose: Not Given Insulin Human Lispro (Humalog) 0 units SQ TIDAC [facility] PRN Reason: Protocol Stop: 09/06/17 07:31 Last Admin: 03/13/17 08:43 Dose: 2 units Insulin Human Lispro (Humalog) 0 units SQ HS [facility] PRN Reason: Protocol Stop: 09/05/17 21:01 Last Admin: 03/12/17 20:40 Dose: Not Given Ipratropium [place] (Atrovent Neb) 0.5 mg IH [id number] [facility] Stop: 09/11/17 22:01 Last Admin: 03/13/17 09:09 Dose: 0.5 mg Lactobacillus Acidophilus/Rhamnosus (Culturelle) 1 each PO BID [facility] Stop: 09/08/17 21:01 Last Admin: 03/13/17 08:38 Dose: 1 each Levalbuterol HCl (Xopenex) 0.63 mg IH [id number] [facility] Stop: 09/08/17 08:01 Last Admin: 03/13/17 09:09 Dose: 0.63 mg Loratadine (Claritin) 10 mg PO DAILY [facility] PRN Reason: Protocol Stop: 09/06/17 09:01 Last Admin: 03/13/17 08:38 Dose: 10 mg Montelukast Sodium (Singulair) 10 mg PO DAILY [facility] Stop: 09/06/17 09:01 Last Admin: 03/13/17 08:37 Dose: 10 mg Morphine Sulfate (Morphine Sulfate) 2 mg IVP Q4HR PRN PRN Reason: Severe Pain (7-10) Stop: 09/05/17 18:30 Naloxone HCl (Narcan) 0.4 mg IVP Q2MIN PRN PRN Reason: Opioid Reversal Stop: 09/05/17 18:30 Nitroglycerin (Nitroglycerin) 0.4 mg SL Q5M PRN PRN Reason: Chest Pain Stop: 09/05/17 18:24 Nortriptyline HCl (Pamelor) 10 mg PO HS [facility] Stop: 09/05/17 21:01 Last Admin: 03/12/17 20:48 Dose: 10 mg Omeprazole (Prilosec) 40 mg PO DAILY@0730 [facility] Stop: 09/09/17 09:01 Last Admin: 03/13/17 08:38 Dose: 40 mg Ondansetron HCl (Zofran) 4 mg IVP Q8HR PRN PRN Reason: Nausea And Vomiting Stop: 09/05/17 18:30 Pharmacy Profile Note (Patient Taking Own Medication) 0 each PO DAILY [facility] Stop: 09/06/17 09:01 Last Admin: 03/13/17 08:44 Dose: Not Given Potassium Chloride (Potassium Chloride) 20 meq PO DAILY [facility] Stop: 09/06/17 09:01 Last Admin: 03/13/17 08:37 Dose: 20 meq Prednisone (Prednisone) 60 mg PO DAILY [facility] Stop: 09/11/17 18:16 Last Admin: 03/13/17 08:38 Dose: 60 mg Senna/Docusate Sodium (Senna Plus) 2 each PO BID [facility] PRN Reason: Protocol Stop: 09/05/17 21:01 Last Admin: 03/13/17 08:38 Dose: 2 each Vitamin D (Vitamin D) 1,000 unit PO DAILY [facility] Stop: 09/06/17 09:01 Last Admin: 03/13/17 08:38 Dose: 1,000 unit Warfarin Sodium (Coumadin Perpt) 1 each PO DAILY@1800 PRN PRN Reason: SEE COMMENTS Stop: 09/06/17 18:01 - EKG Interpretation EKG results cardiology: other (12 hr tele AVG HR 95, mostly A-Fib, occasional sinus tach) - VTE Documentation of Mechanical Device: Graduated compression elastic hosiery Consult Discharge Plan - Plan Referrals: Manuel Andrade CNP [Advanced Practice Nurse] - 03/23/17 1:00 pm Christoph Hughes DO [Primary Care Provider] - 03/19/17 10:00 am ()
[2017-03-13] MEDS ORDERED: Albuterol 2.5 MG/3 ML NEBULIZER IH PRN (10:48)
--- NOTE | 2017-03-13 10:51 | Pulmonology Progress Note ---
Date of Encounter: 03/13/17 Time of Encounter: 10:30 Assessment and Plan (1) Acute and chronic respiratory failure Current Visit: No Status: Chronic This episode more look like diastolic dysfunction secondary to atrial fibrillation with RVR . Because of increased sputum production and worsening wheezing will continue antibiotics agree with steroids will monitor her symptoms closely . To continue Levalbuterol and symbicort. Qualifiers: Respiratory failure complication: hypoxia and hypercapnia Qualified Code(s) : J96.21 - Acute and chronic respiratory failure with hypoxia; J96.22 - Acute and chronic respiratory failure with hypercapnia (2) COPD (chronic obstructive pulmonary disease) Current Visit: No Status: Chronic To continue Symbicort , To cotinue Xopenex as needed for wheezing . Because of sputum production and wheezing symptoms will start back on steroids . Qualifiers: COPD type: COPD with acute exacerbation Qualified Code(s): J44.1 - Chronic obstructive pulmonary disease with (acute) exacerbation (3) Lung cancer Current Visit: Yes Status: Acute Waiting for Chemotherapy as outpatient Qualifiers: Laterality: right Lung location: unspecified part of lung Qualified Code( s): C34.91 - Malignant neoplasm of unspecified part of right bronchus or lung (4) Atrial fibrillation with RVR Current Visit: No Status: Acute Patient is still in Atrial fibrillation with RVR patient is on amiodarone , cardiology following Subjective Principal diagnosis: Afib RVR Interval history: Came to see as she had a rough night , patient is bringing cough with sputum production had some hemoptysis , patient is on Heparin drip for mechanical mitral valve . Patient said last night show woke up with shortness of breadth her heart rate was around 120's according to nurse she was in atrial fibrillation Objective PUL Vital signs: Last Vital Signs Temp 98.0 F 03/12/17 23:43 Pulse 89 03/13/17 03:45 Resp 16 03/13/17 09:33 BP 112/70 03/13/17 03:50 Pulse Ox 99 03/13/17 09:33 General appearance: other (Mild respiratory distress) Effort: mildly labored Auscultation: bilateral: wheezes Cardiovascular: irregular rhythm Results - Laboratory Findings CBC and BMP: 03/13/17 04:51 03/13/17 04:51 PT/INR, D-dimer PT 18.5 Seconds (9.4-12.1) H 03/13/17 04:51 Abnormal lab findings: Abnormal lab results Hgb 10.3 g/dL (11.5-15.4) L 03/13/17 04:51 Hct 34.1 % (35.3-44.9) L 03/13/17 04:51 MCH 25.7 pg (28.0-33.3) L 03/13/17 04:51 MCHC 30.2 g/dL (31.6-35.5) L 03/13/17 04:51 RDW 17.4 % (11.5-14.5) H 03/13/17 04:51 Lymphocytes # 0.3 K/mcL (0.6-4.6) L 03/13/17 04:51 Nucleated RBCs/100 WBC 0.2 /100 WBC (0) H 03/12/17 05:07 PT 18.5 Seconds (9.4-12.1) H 03/13/17 04:51 APTT 80.1 Seconds (26.0-36.0) H 03/13/17 04:51 Glucose 176 mg/dL (70-99) H 03/13/17 04:51 POC Glucose 169 (58-89) H 03/12/17 20:37 Calcium 8.2 mg/dL (8.6-10.8) L 03/13/17 04:51 Magnesium 1.5 mg/dL (1.6-2.6) L 03/13/17 04:51 Triglycerides 249 mg/dL (< 150) H 03/07/17 05:30 VLDL Cholesterol, Calc 50 mg/dL (< 31) H 03/07/17 05:30 - Clinical Findings Intake & Output: Intake & Output 03/12/17 03/13/17 03/13/17 23:59 07:59 15:59 Intake Total 120 / 120 590 / 590 Output Total 1000 / 1000 500 / 500 Balance 120 / 120 -1000 / -1000 90 / 90 - VTE Documentation of Mechanical Device: Graduated compression elastic hosiery Consult Discharge Plan - Plan Referrals: Manuel Andrade CNP [Advanced Practice Nurse] - 03/23/17 1:00 pm Christoph Hughes DO [Primary Care Provider] - 03/19/17 10:00 am ()
[2017-03-13] MEDS: Magnesium Oxide 400 MG TABLET PO SCH ×2 (11:54→21:01)
--- NOTE | 2017-03-13 17:48 | Internal Med Progress Note ---
Date of Encounter: 03/13/17 Time of Encounter: 15:00 - Assessment and plan (1) CKD (chronic kidney disease) stage 3, GFR 30-59 ml/min Current Visit: No Status: Chronic Assessment and plan: Avoid nephrotoxins. Adjust medications according to GFR. Monitor BUN and creatinine daily. (2) Acute respiratory failure with hypoxia Current Visit: No Status: Acute Assessment and plan: Likely secondary to CHF exacerbation now with a combination of COPD exacerbation. I will continue with levalbuterol, ipratropium prednisone. Continue with doxycycline started yesterday. If there is no improvement I will consider switching to IV steroids. We will use BiPAP when necessary. We will check overnight BiPAP qualification. Check ABG in the morning. We will treat COPD exacerbation and acute bronchitis with azithromycin and prednisone. Will use bronchodilators. Continue with supplemental oxygen by high flow nasal cannula at 6 L/m to maintain saturation above 89%. (3) Atrial fibrillation with rapid ventricular response Current Visit: Yes Status: Acute Assessment and plan: Appreciate cardiology recommendations. She completed loaded with amiodarone and digoxin. Continue these oral. Continue with diltiazem. Continue cardiac rehabilitation specialist. Continue anticoagulation with warfarin. check INR in the morning (4) COPD exacerbation Current Visit: No Status: Acute Assessment and plan: This is a new problem for today. I will continue prednisone, doxycycline and continued Xopenex and ipratropium. - Subjective Interval history: 03/13/2017: The patient reports that she had a severe bout of shortness of breath and wheezing last night and some blood tinged sputum production. No chest pain. No fever. This has improved by now. Inhaled albuterol helped with her symptoms. 03/12/2017: Patient reports severe shortness of breath and dyspnea on exertion with minimal exertion which she says is worse from yesterday. She appears very comfortable lying in bed speaking in full sentences while using high flow nasal cannula at 6 L/m. Denies associated chest pain she continues to have cough productive of sputum. 03/11/2017: Patient reported moderate shortness of breath, unchanged from yesterday no chest pain, mild to moderate rest, worse with minimal exertion. She continues to be in atrial fibrillation with rapid ventricular response. She requires slightly more oxygen than yesterday, on her usual 5 L she is anywhere from 85-95%.. - Constitutional Vitals: Temp Pulse Resp BP Pulse Ox 97.6 F 93 16 127/69 98 03/13/17 16:16 03/13/17 16:16 03/13/17 16:52 03/13/17 16:16 03/13/17 16:52 General appearance: Present: cooperative, mild distress, A&O X 3, pleasant, obese, answers questions appropriately - Respiratory Respiratory exam: Present: wheezes. Absent: accessory muscle use, rales, rhonchi - Cardiovascular Cardiovascular exam: Present: RRR, +S1, +S2. Absent: diastolic murmur, gallop, rubs, systolic murmur - GI/Abdominal GI/Abdominal exam: Present: normal bowel sounds, soft, no peritoneal signs. Absent: distended, tenderness - Extremities Exam Extremities exam: Present: pedal edema, warm, radial pulses palpable and symmetrical. Absent: calf tenderness, cyanotic - Skin Skin exam: Present: dry, intact Internal Medicine: Result - Labs CBC & Chem 7: 03/13/17 04:51 03/13/17 04:51 Labs: Short CBC 03/13/17 Range/Units 04:51 WBC 7.6 (4.3-11.1) K/mcL Hgb 10.3 L (11.5-15.4) g/dL Hct 34.1 L (35.3-44.9) % Plt Count 148 (140-400) K/mcL Neutrophils # 6.9 (1.6-8.9) K/mcL BMP 03/13/17 04:51 Sodium 136 Potassium 3.7 Chloride 101 Carbon Dioxide 25 BUN 19 Creatinine 0.87 Glucose 176 H Calcium 8.2 L - ABG Interpretation ABG results: PT/INR, D-dimer PT 18.5 Seconds (9.4-12.1) H 03/13/17 04:51 - VTE Documentation of Mechanical Device: Graduated compression elastic hosiery Consult Discharge Plan - Plan Referrals: Manuel Andrade CNP [Advanced Practice Nurse] - 03/23/17 1:00 pm Christoph Hughes DO [Primary Care Provider] - 03/19/17 10:00 am ()
[2017-03-13] MEDS ORDERED: *HR* Warfarin 5 MG TABLET PO ONE (18:00)
[2017-03-13] MEDS: Gabapentin 100 MG CAPSULE PO SCH (21:02)
[2017-03-14] MEDS: Ipratropium Neb 0.5 MG NEBULIZER IH SCH ×4 (03:57→21:20)
[2017-03-14] MEDS: Levalbuterol Neb 0.63 MG/3 ML IH SCH ×4 (03:57→21:20)
[2017-03-14 05:39] LABS: Basophils % 0.1 %; Hematocrit 31.2 % (35.3-44.9); Hemoglobin 9.8 g/dL (11.5-15.4); Immature Granulocytes % 1.7 % (0-4); Lymphocytes # 0.7 K/mcL (0.6-4.6); Lymphocytes % 5.9 %; Mean Corpuscular HGB Conc 31.4 g/dL (31.6-35.5); Mean Corpuscular Hemoglobin 25.5 pg (28.0-33.3); Mean Corpuscular Volume 81.3 fL (83.0-100.0); Mean Platelet Volume 11.2 fL (9.4-12.4); Monocytes # 0.8 K/mcL (0.0-1.3); Monocytes % 7.1 %; Neutrophils # 9.4 K/mcL (1.6-8.9); Platelet Count 185 K/mcL (140-400); Red Blood Count 3.84 M/mcL (3.82-4.97); Red Cell Distribution Width 17.1 % (11.5-14.5); Segmented Neutrophils % 85.2 %
[2017-03-14 05:43] LABS: INR 2.5; Prothrombin Time 27.7 Seconds (9.4-12.1)
[2017-03-14 05:46] LABS: Activated Partial Thrombo Time 102.8 Seconds (26.0-36.0)
[2017-03-14 05:50] LABS: BUN/Creatinine Ratio 27 (6-26); Blood Urea Nitrogen 27 mg/dL (7-20); Calcium 8.3 mg/dL (8.6-10.8); Carbon Dioxide 30 mEq/L (19-29); Chloride 98 mEq/L (98-109); Glucose 121 mg/dL (70-99); Magnesium 1.6 mg/dL (1.6-2.6); Osmolality,Calculated 286 (280-300); Potassium 3.3 mEq/L (3.5-4.5); Sodium 135 mEq/L (136-145); eGFR For African Americans > 60 (> 60); eGFR For Non-African Americans 54 (> 60)
--- NOTE | 2017-03-14 07:58 | Pulmonology Progress Note ---
Date of Encounter: 03/14/17 Time of Encounter: 07:50 Assessment and Plan (1) Acute and chronic respiratory failure Current Visit: No Status: Chronic This episode more look like diastolic dysfunction secondary to atrial fibrillation with RVR . Because of increased sputum production and worsening wheezing will continue antibiotics agree with steroids will monitor her symptoms closely . To continue Levalbuterol and symbicort. Tomorrow we can change to prednisone 40 mg PO Qualifiers: Respiratory failure complication: hypoxia and hypercapnia Qualified Code(s) : J96.21 - Acute and chronic respiratory failure with hypoxia; J96.22 - Acute and chronic respiratory failure with hypercapnia (2) COPD (chronic obstructive pulmonary disease) Current Visit: No Status: Chronic To continue Symbicort , To cotinue Xopenex as needed for wheezing . To continue steroids Qualifiers: COPD type: COPD with acute exacerbation Qualified Code(s): J44.1 - Chronic obstructive pulmonary disease with (acute) exacerbation (3) Lung cancer Current Visit: Yes Status: Acute Waiting for Chemotherapy as outpatient . Patient is having hemoptysis in the background of lung cancer , she is having blood tinged sputum , patient is anticoagulated for mechanical mitral valve if the hemoptysis we need to stop the heparin drip for now continue with low intensity heparin drip , patient is bridged to coumadin for her mitral valve . Discussed with patient the hemoptysis worsen we need to stop the anticoagulation Qualifiers: Laterality: right Lung location: unspecified part of lung Qualified Code( s): C34.91 - Malignant neoplasm of unspecified part of right bronchus or lung (4) Atrial fibrillation with RVR Current Visit: No Status: Acute Patient is still in Atrial fibrillation with RVR patient is on amiodarone , cardiology following Subjective Principal diagnosis: Afib RVR Interval history: Came to see she is doing well today way better that night before . Objective PUL Vital signs: Last Vital Signs Temp 97.8 F 03/14/17 03:48 Pulse 93 03/14/17 05:00 Resp 17 03/14/17 03:57 BP 125/73 03/14/17 03:48 Pulse Ox 94 03/14/17 03:57 Auscultation: bilateral: wheezes (mild scattered wheezes ) Cardiovascular: irregular rhythm Results - Laboratory Findings CBC and BMP: 03/14/17 04:55 03/14/17 04:55 PT/INR, D-dimer PT 27.7 Seconds (9.4-12.1) H 03/14/17 04:55 Abnormal lab findings: Abnormal lab results Hgb 9.8 g/dL (11.5-15.4) L 03/14/17 04:55 Hct 31.2 % (35.3-44.9) L 03/14/17 04:55 MCV 81.3 fL (83.0-100.0) L 03/14/17 04:55 MCH 25.5 pg (28.0-33.3) L 03/14/17 04:55 MCHC 31.4 g/dL (31.6-35.5) L 03/14/17 04:55 RDW 17.1 % (11.5-14.5) H 03/14/17 04:55 Neutrophils # 9.4 K/mcL (1.6-8.9) H 03/14/17 04:55 Nucleated RBCs/100 WBC 0.2 /100 WBC (0) H 03/12/17 05:07 PT 27.7 Seconds (9.4-12.1) H 03/14/17 04:55 APTT 102.8 Seconds (26.0-36.0) H 03/14/17 04:55 Sodium 135 mEq/L (136-145) L 03/14/17 04:55 Potassium 3.3 mEq/L (3.5-4.5) L 03/14/17 04:55 Carbon Dioxide 30 mEq/L (19-29) H 03/14/17 04:55 BUN 27 mg/dL (7-20) H 03/14/17 04:55 Est GFR (Non-Af Amer) 54 (> 60) L 03/14/17 04:55 BUN/Creatinine Ratio 27 (6-26) H 03/14/17 04:55 Glucose 121 mg/dL (70-99) H 03/14/17 04:55 POC Glucose 229 (58-89) H 03/13/17 20:24 Calcium 8.3 mg/dL (8.6-10.8) L 03/14/17 04:55 Triglycerides 249 mg/dL (< 150) H 03/07/17 05:30 VLDL Cholesterol, Calc 50 mg/dL (< 31) H 03/07/17 05:30 - Clinical Findings Intake & Output: Intake & Output 03/13/17 03/13/17 03/14/17 15:59 23:59 07:59 Intake Total 830 / 830 270 / 270 190 / 190 Output Total 900 / 900 250 / 250 500 / 500 Balance -70 / -70 -310 / -310 - VTE Documentation of Mechanical Device: Graduated compression elastic hosiery Consult Discharge Plan - Plan Referrals: Manuel Andrade CNP [Advanced Practice Nurse] - 03/23/17 1:00 pm Christoph Hughes DO [Primary Care Provider] - 03/19/17 10:00 am ()
[2017-03-14] MEDS: *HR* HYDROcodone/Acet 5/325 mg TABLET PO PRN ×2 (09:07→16:56)
[2017-03-14] MEDS: *HR* Digoxin 0.125 MG TABLET PO SCH (09:07)
[2017-03-14] MEDS: Diltiazem CD (24hr) 180 MG CAPSULE PO SCH (09:08)
[2017-03-14] MEDS: Doxycycline 100 MG CAPSULE PO SCH ×2 (09:08→20:16)
[2017-03-14] MEDS: Folic Acid 1 MG TABLET PO SCH (09:08)
[2017-03-14] MEDS: Loratadine 10 MG TABLET PO SCH (09:08)
[2017-03-14] MEDS: Furosemide 40 MG TABLET PO SCH ×2 (09:08→16:57)
[2017-03-14] MEDS: Sennosides/Docusate Sodium TABLET PO SCH ×2 (09:08→20:17)
[2017-03-14] MEDS: Magnesium Oxide 400 MG TABLET PO SCH ×2 (09:08→20:16)
[2017-03-14] MEDS: Cholecalciferol (D-3) 1,000 UNIT TABLET PO SCH (09:08)
[2017-03-14] MEDS: Lactobacillus 1 EACH CAP.SPRINK PO SCH ×2 (09:08→20:15)
[2017-03-14] MEDS: *HR* Amiodarone 200 MG TABLET PO SCH (09:09)
[2017-03-14] MEDS: Insulin LISPRO 300 UNITS/3 ML VIAL SQ SCH ×4 (09:09→20:18)
[2017-03-14] MEDS: predniSONE 20 MG TABLET PO SCH (09:09)
[2017-03-14] MEDS: Heparin 25,000 UNIT/500 ML D5W 25,000 UNIT/500 ML MLS IVC SCH (09:10)
[2017-03-14] MEDS: (Roflumilast [Daliresp] 500 MCG) PO SCH (09:12)
[2017-03-14] MEDS: Fluticasone Propionate Nasal 50 MCG/SPRAY BOTTLE NS SCH (09:12)
[2017-03-14] MEDS: Budesonide/Formoterol 160/4.5 MDI IH SCH ×2 (10:47→21:21)
[2017-03-14] MEDS: Acetylcysteine 10% 2 ML INHSOL IH SCH ×3 (10:47→21:20)
--- NOTE | 2017-03-14 15:58 | Internal Med Progress Note ---
Date of Encounter: 03/14/17 Time of Encounter: 13:00 - Assessment and plan (1) CKD (chronic kidney disease) stage 3, GFR 30-59 ml/min Current Visit: No Status: Chronic Assessment and plan: Avoid nephrotoxins. Adjust medications according to GFR. Monitor BUN and creatinine daily. (2) Acute respiratory failure with hypoxia Current Visit: No Status: Acute Assessment and plan: Likely secondary to CHF exacerbation now with a combination of COPD exacerbation. I will continue with levalbuterol, ipratropium prednisone. Continue with doxycycline started yesterday. If there is no improvement I will consider switching to IV steroids. We will use BiPAP when necessary. We will check overnight BiPAP qualification. Check ABG in the morning. We will treat COPD exacerbation and acute bronchitis with azithromycin and prednisone. Will use bronchodilators. Continue with supplemental oxygen by high flow nasal cannula at 6 L/m to maintain saturation above 89%. (3) Atrial fibrillation with rapid ventricular response Current Visit: Yes Status: Acute Assessment and plan: Appreciate cardiology recommendations. She completed her loading with amiodarone and digoxin. Continue these oral. Continue with diltiazem. Continue engine monitor. Continue anticoagulation with warfarin. check INR in the morning (4) COPD exacerbation Current Visit: No Status: Acute Assessment and plan: This is a new problem for today. I will continue prednisone, doxycycline and continued Xopenex and ipratropium. (5) H/O mitral valve replacement with mechanical valve Current Visit: No Status: Chronic Assessment and plan: Heparin bridging to Coumadin with goal INR 2.5-3.5. INR is 2.5 this morning and therefore I will discontinue heparin. (6) Anxiety Current Visit: Yes Status: Acute Assessment and plan: Start Ativan. (7) CAD in [place] artery Current Visit: No Status: Acute Assessment and plan: Continue aspirin, beta halle and Lipitor (8) Lung cancer Current Visit: Yes Status: Acute Qualifiers: Laterality: right Lung location: unspecified part of lung Qualified Code( s): C34.91 - Malignant neoplasm of unspecified part of right bronchus or lung - Subjective Interval history: 03/14/2017: She says her shortness of breath has improved since yesterday. Continues to have dry cough and wheezing but overall feels better. High flow nasal oxygen saturation helps. She reports some anxiety. 03/13/2017: The patient reports that she had a severe bout of shortness of breath and wheezing last night and some blood tinged sputum production. No chest pain. No fever. This has improved by now. Inhaled albuterol helped with her symptoms. 03/12/2017: Patient reports severe shortness of breath and dyspnea on exertion with minimal exertion which she says is worse from yesterday. She appears very comfortable lying in bed speaking in full sentences while using high flow nasal cannula at 6 L/m. Denies associated chest pain she continues to have cough productive of sputum. 03/11/2017: Patient reported moderate shortness of breath, unchanged from yesterday no chest pain, mild to moderate rest, worse with minimal exertion. She continues to be in atrial fibrillation with rapid ventricular response. She requires slightly more oxygen than yesterday, on her usual 5 L she is anywhere from 85-95%.. - Constitutional Vitals: Temp Pulse Resp BP Pulse Ox 97.6 F 124 18 113/91 93 03/14/17 11:38 03/14/17 11:38 03/14/17 15:26 03/14/17 11:38 03/14/17 15:26 General appearance: Present: cooperative, mild distress, A&O X 3, pleasant, obese, answers questions appropriately - Eye Eye exam: Present: PERRL, conjuntiva pink, sclera anicteric Pupils: Present: PERRL - Respiratory Respiratory exam: Present: CTAB. Absent: accessory muscle use, rales, rhonchi, wheezes - Cardiovascular Cardiovascular exam: Present: RRR, +S1, +S2, tachycardia. Absent: diastolic murmur, gallop, rubs, systolic murmur - GI/Abdominal GI/Abdominal exam: Present: normal bowel sounds, soft, no peritoneal signs. Absent: distended, tenderness - Extremities Exam Extremities exam: Present: warm, radial pulses palpable and symmetrical. Absent : calf tenderness, cyanotic, pedal edema - Skin Skin exam: Present: dry, intact Internal Medicine: Result - Labs CBC & Chem 7: 03/14/17 04:55 03/14/17 04:55 Labs: Short CBC 03/14/17 Range/Units 04:55 WBC 11.0 (4.3-11.1) K/mcL Hgb 9.8 L (11.5-15.4) g/dL Hct 31.2 L (35.3-44.9) % Plt Count 185 (140-400) K/mcL Neutrophils # 9.4 H (1.6-8.9) K/mcL BMP 03/14/17 04:55 Sodium 135 L Potassium 3.3 L Chloride 98 Carbon Dioxide 30 H BUN 27 H Creatinine 1.01 Glucose 121 H Calcium 8.3 L - ABG Interpretation ABG results: PT/INR, D-dimer PT 27.7 Seconds (9.4-12.1) H 03/14/17 04:55 - VTE Documentation of Mechanical Device: Graduated compression elastic hosiery Consult Discharge Plan - Plan Referrals: Manuel Andrade CNP [Advanced Practice Nurse] - 03/23/17 1:00 pm Christoph Hughes DO [Primary Care Provider] - 03/19/17 10:00 am ()
[2017-03-14] MEDS: *HR* LORazepam 0.5 MG TABLET PO PRN (16:57)
[2017-03-14] MEDS ORDERED: *HR* Warfarin 2.5 MG TABLET PO ONE (18:00)
[2017-03-14] MEDS: Gabapentin 100 MG CAPSULE PO SCH (20:15)
[2017-03-15] MEDS: *HR* HYDROcodone/Acet 5/325 mg TABLET PO PRN ×4 (00:13→19:54)
[2017-03-15] MEDS: Ipratropium Neb 0.5 MG NEBULIZER IH SCH ×4 (04:22→21:04)
[2017-03-15] MEDS: Levalbuterol Neb 0.63 MG/3 ML IH SCH ×4 (04:22→21:04)
[2017-03-15] MEDS: *HR* LORazepam 0.5 MG TABLET PO PRN ×2 (04:47→10:57)
[2017-03-15 05:33] LABS: Basophils % 0.1 %; Hematocrit 32.2 % (35.3-44.9); Hemoglobin 9.7 g/dL (11.5-15.4); Immature Granulocytes % 1.1 % (0-4); Lymphocytes # 0.9 K/mcL (0.6-4.6); Lymphocytes % 7.5 %; Mean Corpuscular HGB Conc 30.1 g/dL (31.6-35.5); Mean Corpuscular Hemoglobin 24.7 pg (28.0-33.3); Mean Corpuscular Volume 81.9 fL (83.0-100.0); Mean Platelet Volume 10.3 fL (9.4-12.4); Monocytes % 8.3 %; Neutrophils # 10.3 K/mcL (1.6-8.9); Platelet Count 198 K/mcL (140-400); Red Blood Count 3.93 M/mcL (3.82-4.97); Red Cell Distribution Width 17.3 % (11.5-14.5)
[2017-03-15 05:41] LABS: INR 3.5; Prothrombin Time 38.7 Seconds (9.4-12.1)
[2017-03-15 05:46] LABS: BUN/Creatinine Ratio 29 (6-26); Blood Urea Nitrogen 31 mg/dL (7-20); Calcium 8.8 mg/dL (8.6-10.8); Carbon Dioxide 30 mEq/L (19-29); Chloride 100 mEq/L (98-109); Glucose 101 mg/dL (70-99); Magnesium 1.8 mg/dL (1.6-2.6); Osmolality,Calculated 293 (280-300); Potassium 3.6 mEq/L (3.5-4.5); Sodium 138 mEq/L (136-145); eGFR For African Americans > 60 (> 60); eGFR For Non-African Americans 50 (> 60)
[2017-03-15] MEDS: Diltiazem CD (24hr) 180 MG CAPSULE PO SCH (07:46)
[2017-03-15] MEDS: Sennosides/Docusate Sodium TABLET PO SCH ×2 (07:46→19:55)
[2017-03-15] MEDS: Magnesium Oxide 400 MG TABLET PO SCH ×2 (07:47→19:54)
[2017-03-15] MEDS: *HR* Amiodarone 200 MG TABLET PO SCH (07:47)
[2017-03-15] MEDS: Lactobacillus 1 EACH CAP.SPRINK PO SCH ×2 (07:47→19:54)
[2017-03-15] MEDS: Doxycycline 100 MG CAPSULE PO SCH (07:47)
[2017-03-15] MEDS: *HR* Digoxin 0.125 MG TABLET PO SCH (07:48)
[2017-03-15] MEDS: Loratadine 10 MG TABLET PO SCH (07:48)
[2017-03-15] MEDS: Folic Acid 1 MG TABLET PO SCH (07:48)
[2017-03-15] MEDS: predniSONE 20 MG TABLET PO SCH (07:48)
[2017-03-15] MEDS: Cholecalciferol (D-3) 1,000 UNIT TABLET PO SCH (07:48)
[2017-03-15] MEDS: Furosemide 40 MG TABLET PO SCH ×2 (07:48→16:40)
[2017-03-15] MEDS: Insulin LISPRO 300 UNITS/3 ML VIAL SQ SCH ×4 (07:49→21:31)
[2017-03-15] MEDS: Fluticasone Propionate Nasal 50 MCG/SPRAY BOTTLE NS SCH (07:49)
[2017-03-15] MEDS: (Roflumilast [Daliresp] 500 MCG) PO SCH (07:50)
--- NOTE | 2017-03-15 08:09 | Pulmonology Progress Note ---
Date of Encounter: 03/15/17 Time of Encounter: 07:05 Assessment and Plan (1) Cough with hemoptysis Current Visit: Yes Status: Acute This is most likely from anticoagulation and affect patient has endobronchial lesion from her adenocarcinoma, however at this time it is minimal and continue to monitor, however if he starts to have major hemoptysis then anticoagulation needs to be stopped. (2) Acute and chronic respiratory failure Current Visit: No Status: Chronic Keep SPO2 around 90% and wean off FiO2 Qualifiers: Respiratory failure complication: hypoxia Qualified Code(s): J96.21 - Acute and chronic respiratory failure with hypoxia (3) Chronic respiratory failure with hypoxia Current Visit: No Status: Chronic (4) Atrial fibrillation with RVR Current Visit: No Status: Chronic Rate is under better control and patient is breathing better. (5) Adenocarcinoma of lung Current Visit: No Status: Chronic Qualifiers: Laterality: right Qualified Code(s): C34.91 - Malignant neoplasm of unspecified part of right bronchus or lung Subjective Principal diagnosis: Afib RVR Interval history: Patient continued to have some hemoptysis, but it is not worsening. Objective PUL Vital signs: Last Vital Signs Temp 97.3 F L 03/15/17 07:45 Pulse 98 03/15/17 07:45 Resp 20 03/15/17 07:45 BP 124/71 03/15/17 07:45 Pulse Ox 91 03/15/17 07:45 General appearance: no acute distress Eyes: nonicteric ENT: oropharynx moist Neck: supple, no lymphadenopathy Effort: normal Auscultation: bilateral: diminished breath sounds Cardiovascular: irregular rhythm, murmur noted Gastrointestinal: normoactive bowel sounds Extremities: no cyanosis, edema normal mental status, non-focal exam mood appropriate Results - Laboratory Findings CBC and BMP: 03/15/17 05:25 03/15/17 05:25 PT/INR, D-dimer PT 38.7 Seconds (9.4-12.1) H 03/15/17 05:25 Abnormal lab findings: Abnormal lab results WBC 12.4 K/mcL (4.3-11.1) H 03/15/17 05:25 Hgb 9.7 g/dL (11.5-15.4) L 03/15/17 05:25 Hct 32.2 % (35.3-44.9) L 03/15/17 05:25 MCV 81.9 fL (83.0-100.0) L 03/15/17 05:25 MCH 24.7 pg (28.0-33.3) L 03/15/17 05:25 MCHC 30.1 g/dL (31.6-35.5) L 03/15/17 05:25 RDW 17.3 % (11.5-14.5) H 03/15/17 05:25 Neutrophils # 10.3 K/mcL (1.6-8.9) H 03/15/17 05:25 Nucleated RBCs/100 WBC 0.2 /100 WBC (0) H 03/12/17 05:07 PT 38.7 Seconds (9.4-12.1) H 03/15/17 05:25 APTT 102.8 Seconds (26.0-36.0) H 03/14/17 04:55 Carbon Dioxide 30 mEq/L (19-29) H 03/15/17 05:25 BUN 31 mg/dL (7-20) H 03/15/17 05:25 Est GFR (Non-Af Amer) 50 (> 60) L 03/15/17 05:25 BUN/Creatinine Ratio 29 (6-26) H 03/15/17 05:25 Glucose 101 mg/dL (70-99) H 03/15/17 05:25 POC Glucose 187 (58-89) H 03/14/17 20:07 Triglycerides 249 mg/dL (< 150) H 03/07/17 05:30 VLDL Cholesterol, Calc 50 mg/dL (< 31) H 03/07/17 05:30 - Clinical Findings Intake & Output: Intake & Output 03/14/17 03/15/17 03/15/17 23:59 07:59 15:59 Intake Total 600 / 600 Output Total 1100 / 1100 400 / 400 Balance -500 / -500 -400 / -400 - VTE Documentation of Mechanical Device: Intermittent pneumatic compression device Consult Discharge Plan - Plan Referrals: Manuel Andrade, VANESSA [Advanced Practice Nurse] - 03/23/17 1:00 pm Christoph Hughes DO [Primary Care Provider] - 03/19/17 10:00 am ()
[2017-03-15] MEDS: Budesonide/Formoterol 160/4.5 MDI IH SCH ×2 (09:29→21:03)
[2017-03-15] MEDS: Acetylcysteine 10% 2 ML INHSOL IH SCH ×3 (09:29→21:04)
--- NOTE | 2017-03-15 12:04 | Palliative Progress Note ---
Date of Encounter: 03/15/17 Time of Encounter: 08:50 - Assessment and plan (1) Constipation by delayed colonic transit Current Visit: Yes Status: Acute Assessment and plan: Increasing senna to 3, 2 times a day. Continue to watch. (2) Acute and chronic respiratory failure Current Visit: No Status: Chronic Assessment and plan: Patient states she is feeling better, however she does have an increased oxygen requirement T scan shows possible progression of the tumor but otherwise not much else, plan per pulmonary and hospitalist team. Qualifiers: Respiratory failure complication: hypoxia and hypercapnia Qualified Code(s) : J96.21 - Acute and chronic respiratory failure with hypoxia; J96.22 - Acute and chronic respiratory failure with hypercapnia (3) Diastolic heart failure Current Visit: No Status: Chronic Assessment and plan: plan per hospitalist team. Qualifiers: Heart failure chronicity: chronic Qualified Code(s): I50.32 - Chronic diastolic (congestive) heart failure (4) Rapid atrial fibrillation Current Visit: No Status: Acute Assessment and plan: Currently controlled. Continue current medications plan per cardiology and hospitalist team (5) Goals of care, counseling/discussion Current Visit: No Status: Acute Assessment and plan: CODE STATUS DNR CCA DNI, plan is for the patient to start chemotherapy when this is available. She is interested in pursuing aggressive care for her lung cancer at this time. Patient also understands where hospice fits into her plans will avail herself when she feels is appropriate. (6) Lung cancer Current Visit: Yes Status: Acute Assessment and plan: She will be starting chemotherapy with the cancer center as soon as she is over this episode with her lungs, as well as her heart. Patient is interested in aggressive care for as long as it is available. Qualifiers: Laterality: right Lung location: unspecified part of lung Qualified Code( s): C34.91 - Malignant neoplasm of unspecified part of right bronchus or lung - Time Spent With Patient Total time spent is greater than 50% in coordination of care (as documented) at patient's floor/unit and/or counseling patient: - Subjective Interval history: Patient reports feeling somewhat better, although she does have little blood tinge to the sputum. He has no other complaints at this time, she states she has not had a bowel movement but it usual for her to go 3-4 days between them. - Constitutional Vitals: Abnormal lab results WBC 12.4 K/mcL (4.3-11.1) H 03/15/17 05:25 Hgb 9.7 g/dL (11.5-15.4) L 03/15/17 05:25 Hct 32.2 % (35.3-44.9) L 03/15/17 05:25 MCV 81.9 fL (83.0-100.0) L 03/15/17 05:25 MCH 24.7 pg (28.0-33.3) L 03/15/17 05:25 MCHC 30.1 g/dL (31.6-35.5) L 03/15/17 05:25 RDW 17.3 % (11.5-14.5) H 03/15/17 05:25 Neutrophils # 10.3 K/mcL (1.6-8.9) H 03/15/17 05:25 Nucleated RBCs/100 WBC 0.2 /100 WBC (0) H 03/12/17 05:07 PT 38.7 Seconds (9.4-12.1) H 03/15/17 05:25 APTT 102.8 Seconds (26.0-36.0) H 03/14/17 04:55 Carbon Dioxide 30 mEq/L (19-29) H 03/15/17 05:25 BUN 31 mg/dL (7-20) H 03/15/17 05:25 Est GFR (Non-Af Amer) 50 (> 60) L 03/15/17 05:25 BUN/Creatinine Ratio 29 (6-26) H 03/15/17 05:25 Glucose 101 mg/dL (70-99) H 03/15/17 05:25 POC Glucose 187 (58-89) H 03/14/17 20:07 Triglycerides 249 mg/dL (< 150) H 03/07/17 05:30 VLDL Cholesterol, Calc 50 mg/dL (< 31) H 03/07/17 05:30 General appearance: Present: no acute distress - Head Head exam: Present: atraumatic, normal inspection - Eye Eye exam: Present: normal appearance - ENT ENT exam: Present: mucous membranes moist - Respiratory Respiratory exam: Present: decreased breath sounds - Cardiovascular Cardiovascular exam: Present: irregular rhythm - GI/Abdominal GI/Abdominal exam: Present: normal bowel sounds, soft. Absent: tenderness - Extremities Exam Extremities exam: Absent: tenderness - Neurological Exam Neurological exam: Present: alert, oriented X3 - Psychiatric Psychiatric exam: Absent: agitated, anxious - Skin Skin exam: Present: dry, warm Palliative Quality Palliative Quality: Screen for Code Status: Yes, Screen for Goals of Care: Yes, Screen for Pain: Yes, If Pain Regimen Started, Initiate Bowel Regimen: Yes, Screen for Nausea/Vomitting: Yes - Labs CBC & Chem 7: 03/15/17 05:25 03/15/17 05:25 Labs: Laboratory Results - last 24 hr 03/14/17 03/14/17 03/14/17 08:07 11:43 16:28 WBC RBC Hgb Hct MCV MCH MCHC RDW Plt Count MPV Immature Gran % Seg Neutrophils % Lymphocytes % Monocytes % Eosinophils % Basophils % Neutrophils # Lymphocytes # Monocytes # Eosinophils # Basophils # PT INR Sodium Potassium Chloride Carbon Dioxide BUN Creatinine Est GFR ( Amer) Est GFR (Non-Af Amer) BUN/Creatinine Ratio Glucose POC Glucose 100 H 129 H 185 H Calculated Osmolality Calcium Magnesium 03/14/17 03/15/17 03/15/17 20:07 05:25 05:25 WBC 12.4 H RBC 3.93 Hgb 9.7 L Hct 32.2 L MCV 81.9 L MCH 24.7 L MCHC 30.1 L RDW 17.3 H Plt Count 198 MPV 10.3 Immature Gran % 1.1 Seg Neutrophils % 83.0 Lymphocytes % 7.5 Monocytes % 8.3 Eosinophils % 0.0 Basophils % 0.1 Neutrophils # 10.3 H Lymphocytes # 0.9 Monocytes # 1.0 Eosinophils # 0.0 Basophils # 0.0 PT INR Sodium 138 Potassium 3.6 Chloride 100 Carbon Dioxide 30 H BUN 31 H Creatinine 1.08 Est GFR ( Amer) > 60 Est GFR (Non-Af Amer) 50 L BUN/Creatinine Ratio 29 H Glucose 101 H POC Glucose 187 H Calculated Osmolality 293 Calcium 8.8 Magnesium 1.8 03/15/17 05:25 WBC RBC Hgb Hct MCV MCH MCHC RDW Plt Count MPV Immature Gran % Seg Neutrophils % Lymphocytes % Monocytes % Eosinophils % Basophils % Neutrophils # Lymphocytes # Monocytes # Eosinophils # Basophils # PT 38.7 H INR 3.5 Sodium Potassium Chloride Carbon Dioxide BUN Creatinine Est GFR ( Amer) Est GFR (Non-Af Amer) BUN/Creatinine Ratio Glucose POC Glucose Calculated Osmolality Calcium Magnesium - Impressions Impressions Chest CT 03/15/17 10:09 IMPRESSION: Persistent masslike opacification in the perihilar right lower lobe worrisome for malignancy. Some postobstructive pneumonia and consolidation in the right lower lobe and right middle lobe. Some atelectasis also present medially in the base the left lower lobe. Precarinal and right paratracheal mediastinal adenopathy unchanged. Left adrenal lesion and spinal lesions consistent with metastatic disease. 7 mm subpleural left upper lobe pulmonary nodule favored to be of benign etiology and slightly larger than December 2014. Very small right pleural effusion. Severe emphysematous changes. Overall little change from 02/23/2017. D/ / James Salazar MD / James Salazar MD Interpreting Provider: James Salazar MD - ABG Interpretation ABG results: PT/INR, D-dimer PT 38.7 Seconds (9.4-12.1) H 03/15/17 05:25 Consult Discharge Plan - Plan Referrals: Manuel Andrade CNP [Advanced Practice Nurse] - 03/23/17 1:00 pm Christoph Hughes DO [Primary Care Provider] - 03/19/17 10:00 am ()
[2017-03-15] MEDS: Aztreonam 1,000 MG in D5% in Water (Mini-Bag+) 100 ML IVPB SCH (17:33)
--- NOTE | 2017-03-15 17:52 | Internal Med Progress Note ---
Date of Encounter: 03/15/17 Time of Encounter: 13:00 - Assessment and plan (1) CKD (chronic kidney disease) stage 3, GFR 30-59 ml/min Current Visit: No Status: Chronic Assessment and plan: Avoid nephrotoxins. Adjust medications according to GFR. Monitor BUN and creatinine daily. (2) Acute respiratory failure with hypoxia Current Visit: No Status: Acute Assessment and plan: Likely secondary to CHF exacerbation and COPD exacerbation. I will continue with levalbuterol, ipratropium . Started IV steroids. She did not improve with oral prednisone. BiPAP daily at bedtime. She does have BiPAP and CPAP at home. Resume BiPAP on discharge. Continue with supplemental oxygen by high flow nasal cannula at 6-7 L/m to maintain saturation above 89%. (3) Atrial fibrillation with rapid ventricular response Current Visit: Yes Status: Acute Assessment and plan: Appreciate cardiology recommendations. She completed her loading with amiodarone and digoxin. Continue these oral. Continue with diltiazem. Continue lunchroom monitor. Continue anticoagulation with warfarin. check INR in the morning (4) COPD exacerbation Current Visit: No Status: Acute Assessment and plan: Treat with Xopenex and ipratropium. Start IV steroids. (5) H/O mitral valve replacement with mechanical valve Current Visit: No Status: Chronic Assessment and plan: Heparin bridging to Coumadin with goal INR 2.5-3.5. INR is 3.5 today. She is off the heparin. (6) Anxiety Current Visit: Yes Status: Acute Assessment and plan: Start Ativan. (7) CAD in [place] artery Current Visit: No Status: Acute Assessment and plan: Continue aspirin, beta halle and Lipitor (8) Lung cancer Current Visit: Yes Status: Acute Qualifiers: Laterality: right Lung location: unspecified part of lung Qualified Code( s): C34.91 - Malignant neoplasm of unspecified part of right bronchus or lung (9) Pneumonia Current Visit: No Status: Acute Assessment and plan: I obtained a CT of the chest which reveals possible postobstructive pneumonia. The patient has an allergy to cephalosporins vancomycin and fluoroquinolones. I will start treatment with aztreonam and monitor clinically. Qualifiers: Pneumonia type: due to methicillin-sensitive Staphylococcus aureus (MSSA) Laterality: right Lung location: lower lobe of lung Qualified Code(s): J15.211 - Pneumonia due to Methicillin susceptible Staphylococcus aureus - Subjective Interval history: 03/15/2017: She reports severe shortness of breath with minimal exertion. At rest she requires short 6 L/m and at times she needs several liters per minute. She reports a great deal of anxiety associated with this and nonproductive cough. 03/14/2017: She says her shortness of breath has improved since yesterday. Continues to have dry cough and wheezing but overall feels better. High flow nasal oxygen saturation helps. She reports some anxiety. 03/13/2017: The patient reports that she had a severe bout of shortness of breath and wheezing last night and some blood tinged sputum production. No chest pain. No fever. This has improved by now. Inhaled albuterol helped with her symptoms. 03/12/2017: Patient reports severe shortness of breath and dyspnea on exertion with minimal exertion which she says is worse from yesterday. She appears very comfortable lying in bed speaking in full sentences while using high flow nasal cannula at 6 L/m. Denies associated chest pain she continues to have cough productive of sputum. 03/11/2017: Patient reported moderate shortness of breath, unchanged from yesterday no chest pain, mild to moderate rest, worse with minimal exertion. She continues to be in atrial fibrillation with rapid ventricular response. She requires slightly more oxygen than yesterday, on her usual 5 L she is anywhere from 85-95%.. - Constitutional Vitals: Temp Pulse Resp BP Pulse Ox 97.6 F 97 18 121/69 92 03/15/17 16:21 03/15/17 16:21 03/15/17 16:21 03/15/17 16:21 03/15/17 16:21 General appearance: Present: cooperative, mild distress, A&O X 3, pleasant, obese, answers questions appropriately - Eye Eye exam: Present: PERRL, conjuntiva pink, sclera anicteric Pupils: Present: PERRL - Respiratory Respiratory exam: Present: rales, wheezes. Absent: accessory muscle use, rhonchi - Cardiovascular Cardiovascular exam: Present: irregular rhythm, +S1, +S2, tachycardia. Absent: diastolic murmur, gallop, rubs, systolic murmur - GI/Abdominal GI/Abdominal exam: Present: normal bowel sounds, soft, no peritoneal signs. Absent: distended, tenderness - Extremities Exam Extremities exam: Present: pedal edema, warm, radial pulses palpable and symmetrical. Absent: calf tenderness, cyanotic - Skin Skin exam: Present: dry, intact Internal Medicine: Result - Labs CBC & Chem 7: 03/15/17 05:25 03/15/17 05:25 Labs: Short CBC 03/15/17 Range/Units 05:25 WBC 12.4 H (4.3-11.1) K/mcL Hgb 9.7 L (11.5-15.4) g/dL Hct 32.2 L (35.3-44.9) % Plt Count 198 (140-400) K/mcL Neutrophils # 10.3 H (1.6-8.9) K/mcL BMP 03/15/17 05:25 Sodium 138 Potassium 3.6 Chloride 100 Carbon Dioxide 30 H BUN 31 H Creatinine 1.08 Glucose 101 H Calcium 8.8 - ABG Interpretation ABG results: PT/INR, D-dimer PT 38.7 Seconds (9.4-12.1) H 03/15/17 05:25 - Impressions Impressions Chest CT 03/15/17 10:09 IMPRESSION: Persistent masslike opacification in the perihilar right lower lobe worrisome for malignancy. Some postobstructive pneumonia and consolidation in the right lower lobe and right middle lobe. Some atelectasis also present medially in the base the left lower lobe. Precarinal and right paratracheal mediastinal adenopathy unchanged. Left adrenal lesion and spinal lesions consistent with metastatic disease. 7 mm subpleural left upper lobe pulmonary nodule favored to be of benign etiology and slightly larger than December 2014. Very small right pleural effusion. Severe emphysematous changes. Overall little change from 02/23/2017. D/ / James Salazar MD / James Salazar MD Interpreting Provider: James Salazar MD - VTE Documentation of Mechanical Device: Intermittent pneumatic compression device Consult Discharge Plan - Plan Referrals: Manuel Andrade CNP [Advanced Practice Nurse] - 03/23/17 1:00 pm Christoph Hughes DO [Primary Care Provider] - 03/19/17 10:00 am ()
[2017-03-15] MEDS ORDERED: *HR* Warfarin 2.5 MG TABLET PO ONE (18:00)
[2017-03-15] MEDS: methylPREDNISolone 125 MG/2 ML VIAL IVP SCH (18:43)
[2017-03-15] MEDS: Gabapentin 100 MG CAPSULE PO SCH (19:55)
[2017-03-16] MEDS: methylPREDNISolone 125 MG/2 ML VIAL IVP SCH ×5 (00:03→23:50)
[2017-03-16] MEDS: *HR* HYDROcodone/Acet 5/325 mg TABLET PO PRN ×5 (00:03→21:12)
[2017-03-16] MEDS: Aztreonam 1,000 MG in D5% in Water (Mini-Bag+) 100 ML IVPB SCH ×3 (00:04→16:17)
[2017-03-16] MEDS: *HR* LORazepam 0.5 MG TABLET PO PRN ×4 (00:21→21:13)
[2017-03-16 03:35] LABS: Basophils % 0.1 %; Hematocrit 29.5 % (35.3-44.9); Hemoglobin 8.8 g/dL (11.5-15.4); Immature Granulocytes % 1.9 % (0-4); Lymphocytes # 0.3 K/mcL (0.6-4.6); Lymphocytes % 4.1 %; Mean Corpuscular HGB Conc 29.8 g/dL (31.6-35.5); Mean Corpuscular Hemoglobin 24.4 pg (28.0-33.3); Mean Corpuscular Volume 81.9 fL (83.0-100.0); Mean Platelet Volume 10.5 fL (9.4-12.4); Monocytes # 0.2 K/mcL (0.0-1.3); Monocytes % 2.2 %; Neutrophils # 6.2 K/mcL (1.6-8.9); Platelet Count 160 K/mcL (140-400); Red Cell Distribution Width 17.2 % (11.5-14.5); Segmented Neutrophils % 91.7 %
[2017-03-16 03:39] LABS: INR 3.3; Prothrombin Time 36.5 Seconds (9.4-12.1)
[2017-03-16 03:49] LABS: BUN/Creatinine Ratio 34 (6-26); Blood Urea Nitrogen 32 mg/dL (7-20); Calcium 8.5 mg/dL (8.6-10.8); Carbon Dioxide 29 mEq/L (19-29); Chloride 99 mEq/L (98-109); Glucose 167 mg/dL (70-99); Magnesium 1.8 mg/dL (1.6-2.6); Osmolality,Calculated 295 (280-300); Potassium 4.1 mEq/L (3.5-4.5); Sodium 137 mEq/L (136-145); eGFR For African Americans > 60 (> 60); eGFR For Non-African Americans 59 (> 60)
[2017-03-16] MEDS: Levalbuterol Neb 0.63 MG/3 ML IH SCH ×4 (04:44→21:44)
[2017-03-16] MEDS: Ipratropium Neb 0.5 MG NEBULIZER IH SCH ×4 (04:44→21:44)
[2017-03-16] MEDS: Cholecalciferol (D-3) 1,000 UNIT TABLET PO SCH (09:20)
[2017-03-16] MEDS: Loratadine 10 MG TABLET PO SCH (09:20)
[2017-03-16] MEDS: Lactobacillus 1 EACH CAP.SPRINK PO SCH ×2 (09:20→21:13)
[2017-03-16] MEDS: Furosemide 40 MG TABLET PO SCH (09:21)
[2017-03-16] MEDS: Magnesium Oxide 400 MG TABLET PO SCH ×2 (09:21→21:13)
[2017-03-16] MEDS: *HR* Digoxin 0.125 MG TABLET PO SCH (09:21)
[2017-03-16] MEDS: Diltiazem CD (24hr) 180 MG CAPSULE PO SCH (09:21)
[2017-03-16] MEDS: Folic Acid 1 MG TABLET PO SCH (09:21)
[2017-03-16] MEDS: *HR* Amiodarone 200 MG TABLET PO SCH (09:21)
[2017-03-16] MEDS: Sennosides/Docusate Sodium TABLET PO SCH ×2 (09:22→21:12)
[2017-03-16] MEDS: Insulin LISPRO 300 UNITS/3 ML VIAL SQ SCH ×4 (09:23→21:14)
[2017-03-16] MEDS: (Roflumilast [Daliresp] 500 MCG) PO SCH (09:24)
[2017-03-16] MEDS: Fluticasone Propionate Nasal 50 MCG/SPRAY BOTTLE NS SCH (09:30)
--- NOTE | 2017-03-16 10:03 | Palliative Progress Note ---
Date of Encounter: 03/16/17 Time of Encounter: 09:10 - Assessment and plan (1) Constipation by delayed colonic transit Current Visit: Yes Status: Acute Assessment and plan: Increasing senna to 3, 2 times a day. Did have bowel movement yesterday. Continue to watch. (2) Acute and chronic respiratory failure Current Visit: No Status: Chronic Assessment and plan: Patient states she is feeling better, oxygen use is at 5 L today, she is concerned about having a teaching concentrator this portable and allow her to get up and get around. I will discuss with social work. He is hoping to go home soon. However she just restarted on IV steroids and this may delay her departure. Qualifiers: Respiratory failure complication: hypoxia and hypercapnia Qualified Code(s) : J96.21 - Acute and chronic respiratory failure with hypoxia; J96.22 - Acute and chronic respiratory failure with hypercapnia (3) Diastolic heart failure Current Visit: No Status: Chronic Assessment and plan: plan per hospitalist team. Qualifiers: Heart failure chronicity: chronic Qualified Code(s): I50.32 - Chronic diastolic (congestive) heart failure (4) Rapid atrial fibrillation Current Visit: No Status: Acute Assessment and plan: Currently controlled. Continue current medications plan per cardiology and hospitalist team (5) Goals of care, counseling/discussion Current Visit: No Status: Acute Assessment and plan: CODE STATUS DNR CCA DNI, plan is for the patient to start chemotherapy when this is available. She is interested in pursuing aggressive care for her lung cancer at this time. Patient also understands where hospice fits into her plans will avail herself when she feels is appropriate. Discuss with social work regarding her oxygen concentrator. We will continue to follow but will follow from a distance at this point. (6) Lung cancer Current Visit: Yes Status: Acute Assessment and plan: She will be starting chemotherapy with the cancer center as soon as she is over this episode with her lungs, as well as her heart. Patient is interested in aggressive care for as long as it is available. Qualifiers: Laterality: right Lung location: unspecified part of lung Qualified Code( s): C34.91 - Malignant neoplasm of unspecified part of right bronchus or lung - Time Spent With Patient Total time spent is greater than 50% in coordination of care (as documented) at patient's floor/unit and/or counseling patient: - Subjective Interval history: Patient reports feeling much better today. Patient is going up and down, patient got started on IV airways and is continuing antibiotics at this time. She needs to be some hemoptysis but is not getting worse. She does report having a small bowel movement. - Constitutional Vitals: Abnormal lab results RBC 3.60 M/mcL (3.82-4.97) L 03/16/17 03:25 Hgb 8.8 g/dL (11.5-15.4) L 03/16/17 03:25 Hct 29.5 % (35.3-44.9) L 03/16/17 03:25 MCV 81.9 fL (83.0-100.0) L 03/16/17 03:25 MCH 24.4 pg (28.0-33.3) L 03/16/17 03:25 MCHC 29.8 g/dL (31.6-35.5) L 03/16/17 03:25 RDW 17.2 % (11.5-14.5) H 03/16/17 03:25 Lymphocytes # 0.3 K/mcL (0.6-4.6) L 03/16/17 03:25 Nucleated RBCs/100 WBC 0.2 /100 WBC (0) H 03/12/17 05:07 PT 36.5 Seconds (9.4-12.1) H 03/16/17 03:25 APTT 102.8 Seconds (26.0-36.0) H 03/14/17 04:55 BUN 32 mg/dL (7-20) H 03/16/17 03:25 Est GFR (Non-Af Amer) 59 (> 60) L 03/16/17 03:25 BUN/Creatinine Ratio 34 (6-26) H 03/16/17 03:25 Glucose 167 mg/dL (70-99) H 03/16/17 03:25 POC Glucose 141 (58-89) H 03/15/17 11:23 Calcium 8.5 mg/dL (8.6-10.8) L 03/16/17 03:25 Triglycerides 249 mg/dL (< 150) H 03/07/17 05:30 VLDL Cholesterol, Calc 50 mg/dL (< 31) H 03/07/17 05:30 General appearance: Present: no acute distress - Head Head exam: Present: atraumatic, normal inspection - Eye Eye exam: Present: normal appearance - ENT ENT exam: Present: mucous membranes moist - Neck Neck exam: Present: normal inspection - Respiratory Respiratory exam: Present: decreased breath sounds - Cardiovascular Cardiovascular exam: Present: irregular rhythm - GI/Abdominal GI/Abdominal exam: Present: normal bowel sounds, soft. Absent: tenderness - Extremities Exam Extremities exam: Absent: tenderness - Neurological Exam Neurological exam: Present: alert, oriented X3 - Psychiatric Psychiatric exam: Present: normal affect, normal mood. Absent: agitated, anxious - Skin Skin exam: Present: dry, warm Palliative Quality Palliative Quality: Screen for Code Status: Yes, Screen for Goals of Care: Yes, Screen for Pain: Yes, If Pain Regimen Started, Initiate Bowel Regimen: Yes, Screen for Nausea/Vomitting: Yes - Labs CBC & Chem 7: 03/16/17 03:25 03/16/17 03:25 Labs: Laboratory Results - last 24 hr 03/15/17 03/15/17 03/16/17 07:44 11:23 03:25 WBC 6.8 RBC 3.60 L Hgb 8.8 L Hct 29.5 L MCV 81.9 L MCH 24.4 L MCHC 29.8 L RDW 17.2 H Plt Count 160 MPV 10.5 Immature Gran % 1.9 Seg Neutrophils % 91.7 Lymphocytes % 4.1 Monocytes % 2.2 Eosinophils % 0.0 Basophils % 0.1 Neutrophils # 6.2 Lymphocytes # 0.3 L Monocytes # 0.2 Eosinophils # 0.0 Basophils # 0.0 PT INR Sodium Potassium Chloride Carbon Dioxide BUN Creatinine Est GFR ( Amer) Est GFR (Non-Af Amer) BUN/Creatinine Ratio Glucose POC Glucose 94 H 141 H Calculated Osmolality Calcium Magnesium 03/16/17 03/16/17 03:25 03:25 WBC RBC Hgb Hct MCV MCH MCHC RDW Plt Count MPV Immature Gran % Seg Neutrophils % Lymphocytes % Monocytes % Eosinophils % Basophils % Neutrophils # Lymphocytes # Monocytes # Eosinophils # Basophils # PT 36.5 H INR 3.3 Sodium 137 Potassium 4.1 Chloride 99 Carbon Dioxide 29 BUN 32 H Creatinine 0.94 Est GFR ( Amer) > 60 Est GFR (Non-Af Amer) 59 L BUN/Creatinine Ratio 34 H Glucose 167 H POC Glucose Calculated Osmolality 295 Calcium 8.5 L Magnesium 1.8 - Impressions Impressions Chest CT 03/15/17 10:09 IMPRESSION: Persistent masslike opacification in the perihilar right lower lobe worrisome for malignancy. Some postobstructive pneumonia and consolidation in the right lower lobe and right middle lobe. Some atelectasis also present medially in the base the left lower lobe. Precarinal and right paratracheal mediastinal adenopathy unchanged. Left adrenal lesion and spinal lesions consistent with metastatic disease. 7 mm subpleural left upper lobe pulmonary nodule favored to be of benign etiology and slightly larger than December 2014. Very small right pleural effusion. Severe emphysematous changes. Overall little change from 02/23/2017. D/ / James Salazar MD / James Salazar MD Interpreting Provider: James Salazar MD - ABG Interpretation ABG results: PT/INR, D-dimer PT 36.5 Seconds (9.4-12.1) H 03/16/17 03:25 Consult Discharge Plan - Plan Referrals: Manuel Andrade CNP [Advanced Practice Nurse] - 03/23/17 1:00 pm Christoph Hughes DO [Primary Care Provider] - 03/19/17 10:00 am ()
[2017-03-16] MEDS: Budesonide/Formoterol 160/4.5 MDI IH SCH ×2 (11:15→21:44)
[2017-03-16] MEDS: Acetylcysteine 10% 2 ML INHSOL IH SCH (11:15)
[2017-03-16] MEDS: Furosemide 80 MG in 0.9 % Sodium Chloride 50 ML IVPB SCH (17:02)
--- NOTE | 2017-03-16 17:34 | Internal Med Progress Note ---
Date of Encounter: 03/16/17 Time of Encounter: 17:32 - Assessment and plan (1) Acute and chronic respiratory failure Current Visit: No Status: Chronic Qualifiers: Respiratory failure complication: hypoxia and hypercapnia Qualified Code(s) : J96.21 - Acute and chronic respiratory failure with hypoxia; J96.22 - Acute and chronic respiratory failure with hypercapnia (2) COPD exacerbation Current Visit: No Status: Acute (3) Rapid atrial fibrillation Current Visit: No Status: Acute (4) Pneumonia Current Visit: No Status: Acute Qualifiers: Pneumonia type: due to methicillin-sensitive Staphylococcus aureus (MSSA) Laterality: right Lung location: lower lobe of lung Qualified Code(s): J15.211 - Pneumonia due to Methicillin susceptible Staphylococcus aureus (5) H/O mitral valve replacement with mechanical valve Current Visit: No Status: Chronic (6) Pneumonia Current Visit: No Status: Chronic Qualifiers: Pneumonia type: due to unspecified organism Laterality: right Lung location: lower lobe of lung Qualified Code(s): J18.9 - Pneumonia, unspecified organism (7) Hypertension Current Visit: Yes Status: Chronic Qualifiers: Hypertension type: essential hypertension Qualified Code(s): I10 - Essential (primary) hypertension (8) Diastolic CHF Current Visit: Yes Status: Chronic Qualifiers: Congestive heart failure chronicity: chronic Qualified Code(s): I50.32 - Chronic diastolic (congestive) heart failure - Subjective Interval history: Ms. Vaz is no was seen today. She is admitted for CHF COPD exacerbation and pneumonia. She has history of MVR and she is on Coumadin. INR is therapeutic. Rate is controlled. She has history of A. fib. She still feels short of breath. Oxygen was increased recently. I noted she has JVD and rhonchi. We will maximize her lung treatment including IV steroid nebulizer mucinous and antibiotics . I will increase her Lasix 80 mg IV twice a day with Zaroxolyn 10 and will try to diurese her aggressively as she appears to be in CHF. - Constitutional Vitals: Temp Pulse Resp BP Pulse Ox 97.5 F L 93 18 133/75 96 03/16/17 15:08 03/16/17 15:08 03/16/17 16:49 03/16/17 15:08 03/16/17 16:49 General appearance: Present: cooperative, mild distress, A&O X 3, pleasant, obese, answers questions appropriately - Head Head exam: Present: atraumatic, normocephalic - Eye Eye exam: Present: PERRL, conjuntiva pink, sclera anicteric Pupils: Present: PERRL - Neck Neck exam general surgery: Present: supple, trachea midline. Absent: lymphadenopathy - Respiratory Respiratory exam: Present: decreased breath sounds, rhonchi, wheezes. Absent: accessory muscle use, rales - Cardiovascular Cardiovascular exam: Present: irregular rhythm, +S1, +S2. Absent: diastolic murmur, gallop, rubs, systolic murmur - GI/Abdominal GI/Abdominal exam: Present: normal bowel sounds, soft, no peritoneal signs. Absent: distended, tenderness - Extremities Exam Extremities exam: Present: warm, radial pulses palpable and symmetrical. Absent : calf tenderness, cyanotic, pedal edema - Neurological Exam Neurological exam: Present: CN II-XII intact, oriented X3, no focal deficits. Absent: pronater drift, facial droop, speech deficit - Skin Skin exam: Present: dry, intact Internal Medicine: Result - Labs CBC & Chem 7: 03/16/17 03:25 03/16/17 03:25 Labs: Short CBC 03/16/17 Range/Units 03:25 WBC 6.8 (4.3-11.1) K/mcL Hgb 8.8 L (11.5-15.4) g/dL Hct 29.5 L (35.3-44.9) % Plt Count 160 (140-400) K/mcL Neutrophils # 6.2 (1.6-8.9) K/mcL BMP 03/16/17 03:25 Sodium 137 Potassium 4.1 Chloride 99 Carbon Dioxide 29 BUN 32 H Creatinine 0.94 Glucose 167 H Calcium 8.5 L - ABG Interpretation ABG results: PT/INR, D-dimer PT 36.5 Seconds (9.4-12.1) H 03/16/17 03:25 - VTE Documentation of Mechanical Device: Intermittent pneumatic compression device Consult Discharge Plan - Plan Referrals: Manuel Andrade CNP [Advanced Practice Nurse] - 03/23/17 1:00 pm Christoph Hughes DO [Primary Care Provider] - 03/19/17 10:00 am ()
[2017-03-16] MEDS ORDERED: *HR* Warfarin 3 MG TABLET PO ONE (18:00)
[2017-03-16] MEDS: Gabapentin 100 MG CAPSULE PO SCH (21:12)
[2017-03-17] MEDS: Aztreonam 1,000 MG in D5% in Water (Mini-Bag+) 100 ML IVPB SCH ×3 (00:23→16:00)
[2017-03-17] MEDS: Ipratropium Neb 0.5 MG NEBULIZER IH SCH ×4 (04:00→22:39)
[2017-03-17] MEDS: Levalbuterol Neb 0.63 MG/3 ML IH SCH ×4 (04:00→22:39)
[2017-03-17 05:13] LABS: INR 3.1; Prothrombin Time 33.7 Seconds (9.4-12.1)
[2017-03-17] MEDS: methylPREDNISolone 125 MG/2 ML VIAL IVP SCH ×3 (06:33→17:54)
[2017-03-17] MEDS: metOLazone 5 MG TABLET PO SCH (06:34)
[2017-03-17] MEDS: Insulin LISPRO 300 UNITS/3 ML VIAL SQ SCH ×5 (07:47→20:40)
[2017-03-17] MEDS: Furosemide 80 MG in 0.9 % Sodium Chloride 50 ML IVPB SCH ×2 (08:22→17:53)
[2017-03-17] MEDS: Cholecalciferol (D-3) 1,000 UNIT TABLET PO SCH (08:27)
[2017-03-17] MEDS: Folic Acid 1 MG TABLET PO SCH (08:27)
[2017-03-17] MEDS: Sennosides/Docusate Sodium TABLET PO SCH ×2 (08:27→21:50)
[2017-03-17] MEDS: Lactobacillus 1 EACH CAP.SPRINK PO SCH ×2 (08:27→21:50)
[2017-03-17] MEDS: *HR* Amiodarone 200 MG TABLET PO SCH (08:27)
[2017-03-17] MEDS: Diltiazem CD (24hr) 180 MG CAPSULE PO SCH (08:27)
[2017-03-17] MEDS: Fluticasone Propionate Nasal 50 MCG/SPRAY BOTTLE NS SCH (08:28)
[2017-03-17] MEDS: Loratadine 10 MG TABLET PO SCH (08:28)
[2017-03-17] MEDS: *HR* Digoxin 0.125 MG TABLET PO SCH (08:28)
[2017-03-17] MEDS: Magnesium Oxide 400 MG TABLET PO SCH ×2 (08:28→21:50)
[2017-03-17] MEDS: *HR* LORazepam 0.5 MG TABLET PO PRN ×2 (08:33→21:51)
[2017-03-17] MEDS: *HR* HYDROcodone/Acet 5/325 mg TABLET PO PRN ×3 (08:36→21:51)
[2017-03-17] MEDS: Budesonide/Formoterol 160/4.5 MDI IH SCH ×2 (10:55→22:40)
--- NOTE | 2017-03-17 11:52 | Internal Med Progress Note ---
Date of Encounter: 03/17/17 Time of Encounter: 11:49 - Assessment and plan (1) Acute and chronic respiratory failure Current Visit: Yes Status: Chronic Qualifiers: Respiratory failure complication: hypoxia and hypercapnia Qualified Code(s) : J96.21 - Acute and chronic respiratory failure with hypoxia; J96.22 - Acute and chronic respiratory failure with hypercapnia (2) COPD exacerbation Current Visit: Yes Status: Acute (3) Rapid atrial fibrillation Current Visit: Yes Status: Acute (4) Pneumonia Current Visit: Yes Status: Acute Qualifiers: Pneumonia type: due to methicillin-sensitive Staphylococcus aureus (MSSA) Laterality: right Lung location: lower lobe of lung Qualified Code(s): J15.211 - Pneumonia due to Methicillin susceptible Staphylococcus aureus (5) H/O mitral valve replacement with mechanical valve Current Visit: Yes Status: Chronic (6) Pneumonia Current Visit: Yes Status: Chronic Qualifiers: Pneumonia type: due to unspecified organism Laterality: right Lung location: lower lobe of lung Qualified Code(s): J18.9 - Pneumonia, unspecified organism (7) Hypertension Current Visit: Yes Status: Chronic Qualifiers: Hypertension type: essential hypertension Qualified Code(s): I10 - Essential (primary) hypertension (8) Diastolic CHF Current Visit: Yes Status: Chronic Qualifiers: Congestive heart failure chronicity: chronic Qualified Code(s): I50.32 - Chronic diastolic (congestive) heart failure - Subjective Interval history: Ms. Yasmeen Dewitt was seen today. She is admitted for CHF COPD exacerbation and pneumonia. She has history of MVR and she is on Coumadin. INR is therapeutic. Rate is controlled. She has history of A. fib. She still feels short of breath. Oxygen was increased recently. I noted she has JVD and rhonchi. We will maximize her lung treatment including IV steroid nebulizer mucinous and antibiotics . I will increase her Lasix 80 mg IV twice a day with Zaroxolyn 10 and will try to diurese her aggressively as she appears to be in CHF. 03/17 Patient was placed on higher dose of Lasix and Zaroxolyn and she has produced significant amount of urine and now she is -4500 for this admission. Renal function is still reasonable. I will continue to diurese her for next couple of days at least. - Constitutional Vitals: Temp Pulse Resp BP Pulse Ox 97.3 F L 107 18 135/89 99 09/13/17 11:19 03/17/17 11:19 03/17/17 11:19 03/17/17 11:19 03/17/17 11:19 General appearance: Present: cooperative, mild distress, A&O X 3, pleasant, obese, answers questions appropriately - Head Head exam: Present: atraumatic, normocephalic - Eye Eye exam: Present: PERRL, conjuntiva pink, sclera anicteric Pupils: Present: PERRL - Neck Neck exam general surgery: Present: supple, trachea midline. Absent: lymphadenopathy - Respiratory Respiratory exam: Present: CTAB. Absent: accessory muscle use, rales, rhonchi, wheezes - Cardiovascular Cardiovascular exam: Present: RRR, +S1, +S2. Absent: diastolic murmur, gallop, rubs, systolic murmur - GI/Abdominal GI/Abdominal exam: Present: normal bowel sounds, soft, no peritoneal signs. Absent: distended, tenderness - Extremities Exam Extremities exam: Present: warm, radial pulses palpable and symmetrical. Absent : calf tenderness, cyanotic, pedal edema - Neurological Exam Neurological exam: Present: CN II-XII intact, oriented X3, no focal deficits. Absent: pronater drift, facial droop, speech deficit - Skin Skin exam: Present: dry, intact Internal Medicine: Result - Labs CBC & Chem 7: 03/16/17 03:25 03/16/17 03:25 - ABG Interpretation ABG results: PT/INR, D-dimer PT 33.7 Seconds (9.4-12.1) H 03/17/17 04:55 - VTE Documentation of Mechanical Device: Intermittent pneumatic compression device Consult Discharge Plan - Plan Referrals: Manuel Andrade CNP [Advanced Practice Nurse] - 03/23/17 1:00 pm Christoph Hughes DO [Primary Care Provider] - 03/19/17 10:00 am ()
[2017-03-17] MEDS ORDERED: *HR* Warfarin 3 MG TABLET PO ONE (18:00)
[2017-03-17] MEDS: Gabapentin 100 MG CAPSULE PO SCH (21:50)
[2017-03-17] MEDS: Acetylcysteine 10% 2 ML INHSOL IH SCH (22:39)
[2017-03-18] MEDS: Aztreonam 1,000 MG in D5% in Water (Mini-Bag+) 100 ML IVPB SCH ×3 (00:23→16:19)
[2017-03-18] MEDS: methylPREDNISolone 125 MG/2 ML VIAL IVP SCH ×3 (02:45→17:58)
[2017-03-18] MEDS: Levalbuterol Neb 0.63 MG/3 ML IH SCH ×4 (04:09→22:03)
[2017-03-18] MEDS: Ipratropium Neb 0.5 MG NEBULIZER IH SCH ×4 (04:09→22:03)
[2017-03-18 04:36] LABS: INR 3.2; Prothrombin Time 35.8 Seconds (9.4-12.1)
--- NOTE | 2017-03-18 08:03 | Palliative Progress Note ---
Date of Encounter: 03/18/17 Time of Encounter: 07:15 - Assessment and plan (1) Constipation by delayed colonic transit Current Visit: Yes Status: Acute Assessment and plan: . Did have bowel movement . Continue to watch. (2) Acute and chronic respiratory failure Current Visit: Yes Status: Chronic Assessment and plan: Patient states she is feeling better, on nasal cannula at this time and breathing well. Qualifiers: Respiratory failure complication: hypoxia and hypercapnia Qualified Code(s) : J96.21 - Acute and chronic respiratory failure with hypoxia; J96.22 - Acute and chronic respiratory failure with hypercapnia (3) Diastolic heart failure Current Visit: No Status: Chronic Assessment and plan: plan per hospitalist team. Qualifiers: Heart failure chronicity: chronic Qualified Code(s): I50.32 - Chronic diastolic (congestive) heart failure (4) Rapid atrial fibrillation Current Visit: Yes Status: Acute Assessment and plan: Currently controlled. Continue current medications plan per cardiology and hospitalist team (5) Goals of care, counseling/discussion Current Visit: No Status: Acute Assessment and plan: CODE STATUS DNR CCA DNI, plan is for the patient to start chemotherapy when this is available. She is interested in pursuing aggressive care for her lung cancer at this time. Patient also understands where hospice fits into her plans will avail herself when she feels is appropriate. Discuss with social work regarding her oxygen concentrator. We will continue to follow but will follow from a distance at this point. Patient will need a specific prescription for blood draws by [facility] be taken to the [facility] Coumadin clinic for her Coumadin management. We will discuss further with social work. (6) Lung cancer Current Visit: Yes Status: Acute Assessment and plan: She will be starting chemotherapy with the cancer center as soon as she is over this episode with her lungs, as well as her heart. Patient is interested in aggressive care for as long as it is available. Qualifiers: Laterality: right Lung location: unspecified part of lung Qualified Code( s): C34.91 - Malignant neoplasm of unspecified part of right bronchus or lung - Time Spent With Patient Total time spent is greater than 50% in coordination of care (as documented) at patient's floor/unit and/or counseling patient: - Subjective Interval history: Patient reports feeling much better today. She is concerned regarding a concentrator for her oxygen at home being portable. He is hoping to go home soon but understands that they are trying to get some more fluid off her. - Constitutional Vitals: Abnormal lab results RBC 3.60 M/mcL (3.82-4.97) L 03/16/17 03:25 Hgb 8.8 g/dL (11.5-15.4) L 03/16/17 03:25 Hct 29.5 % (35.3-44.9) L 03/16/17 03:25 MCV 81.9 fL (83.0-100.0) L 03/16/17 03:25 MCH 24.4 pg (28.0-33.3) L 03/16/17 03:25 MCHC 29.8 g/dL (31.6-35.5) L 03/16/17 03:25 RDW 17.2 % (11.5-14.5) H 03/16/17 03:25 Lymphocytes # 0.3 K/mcL (0.6-4.6) L 03/16/17 03:25 Nucleated RBCs/100 WBC 0.2 /100 WBC (0) H 03/12/17 05:07 PT 35.8 Seconds (9.4-12.1) H 03/18/17 03:30 APTT 102.8 Seconds (26.0-36.0) H 03/14/17 04:55 BUN 32 mg/dL (7-20) H 03/16/17 03:25 Est GFR (Non-Af Amer) 59 (> 60) L 03/16/17 03:25 BUN/Creatinine Ratio 34 (6-26) H 03/16/17 03:25 Glucose 167 mg/dL (70-99) H 03/16/17 03:25 POC Glucose 326 (58-89) H 03/17/17 20:21 Calcium 8.5 mg/dL (8.6-10.8) L 03/16/17 03:25 Triglycerides 249 mg/dL (< 150) H 03/07/17 05:30 VLDL Cholesterol, Calc 50 mg/dL (< 31) H 03/07/17 05:30 General appearance: Present: no acute distress - Head Head exam: Present: atraumatic, normal inspection - Eye Eye exam: Present: normal appearance - ENT ENT exam: Present: mucous membranes moist - Respiratory Respiratory exam: Present: decreased breath sounds - Cardiovascular Cardiovascular exam: Present: RRR - GI/Abdominal GI/Abdominal exam: Present: normal bowel sounds, soft. Absent: tenderness - Extremities Exam Extremities exam: Present: normal inspection. Absent: pedal edema, tenderness - Neurological Exam Neurological exam: Present: alert, oriented X3 - Psychiatric Psychiatric exam: Present: normal affect, normal mood. Absent: agitated, anxious - Skin Skin exam: Present: dry, warm Palliative Quality Palliative Quality: Screen for Code Status: Yes, Screen for Goals of Care: Yes, Screen for Pain: Yes, If Pain Regimen Started, Initiate Bowel Regimen: Yes, Screen for Nausea/Vomitting: Yes - Labs CBC & Chem 7: 03/16/17 03:25 03/16/17 03:25 Labs: Laboratory Results - last 24 hr 03/17/17 03/17/17 03/17/17 07:45 11:25 16:20 PT INR POC Glucose 182 H 298 H 207 H 03/17/17 03/18/17 20:21 03:30 PT 35.8 H INR 3.2 POC Glucose 326 H - ABG Interpretation ABG results: PT/INR, D-dimer PT 35.8 Seconds (9.4-12.1) H 03/18/17 03:30 Consult Discharge Plan - Plan Referrals: Manuel Andrade CNP [Advanced Practice Nurse] - 03/23/17 1:00 pm Christoph Hughes DO [Primary Care Provider] - 03/19/17 10:00 am ()
[2017-03-18] MEDS: Cholecalciferol (D-3) 1,000 UNIT TABLET PO SCH (09:03)
[2017-03-18] MEDS: Folic Acid 1 MG TABLET PO SCH (09:03)
[2017-03-18] MEDS: Loratadine 10 MG TABLET PO SCH (09:03)
[2017-03-18] MEDS: *HR* Digoxin 0.125 MG TABLET PO SCH (09:03)
[2017-03-18] MEDS: *HR* Amiodarone 200 MG TABLET PO SCH (09:04)
[2017-03-18] MEDS: Sennosides/Docusate Sodium TABLET PO SCH ×2 (09:05→21:49)
[2017-03-18] MEDS: Diltiazem CD (24hr) 180 MG CAPSULE PO SCH (09:05)
[2017-03-18] MEDS: Lactobacillus 1 EACH CAP.SPRINK PO SCH ×2 (09:06→21:48)
[2017-03-18] MEDS: Magnesium Oxide 400 MG TABLET PO SCH ×2 (09:06→21:48)
[2017-03-18] MEDS: metOLazone 5 MG TABLET PO SCH (09:07)
[2017-03-18] MEDS: Insulin LISPRO 300 UNITS/3 ML VIAL SQ SCH ×4 (09:08→21:48)
[2017-03-18] MEDS: Fluticasone Propionate Nasal 50 MCG/SPRAY BOTTLE NS SCH (09:09)
[2017-03-18] MEDS: *HR* LORazepam 0.5 MG TABLET PO PRN ×2 (09:19→21:49)
[2017-03-18] MEDS: *HR* HYDROcodone/Acet 5/325 mg TABLET PO PRN ×3 (09:19→21:51)
[2017-03-18] MEDS: Furosemide 80 MG in 0.9 % Sodium Chloride 50 ML IVPB SCH (10:17)
[2017-03-18] MEDS: Budesonide/Formoterol 160/4.5 MDI IH SCH ×2 (11:35→22:03)
[2017-03-18] MEDS: Acetylcysteine 10% 2 ML INHSOL IH SCH ×3 (11:35→22:02)
--- NOTE | 2017-03-18 12:56 | Internal Med Progress Note ---
Date of Encounter: 03/18/17 Time of Encounter: 12:55 - Assessment and plan (1) Acute and chronic respiratory failure Current Visit: Yes Status: Chronic Qualifiers: Respiratory failure complication: hypoxia and hypercapnia Qualified Code(s) : J96.21 - Acute and chronic respiratory failure with hypoxia; J96.22 - Acute and chronic respiratory failure with hypercapnia (2) COPD exacerbation Current Visit: Yes Status: Acute (3) Rapid atrial fibrillation Current Visit: Yes Status: Acute (4) Pneumonia Current Visit: Yes Status: Acute Qualifiers: Pneumonia type: due to methicillin-sensitive Staphylococcus aureus (MSSA) Laterality: right Lung location: lower lobe of lung Qualified Code(s): J15.211 - Pneumonia due to Methicillin susceptible Staphylococcus aureus (5) H/O mitral valve replacement with mechanical valve Current Visit: Yes Status: Chronic (6) Pneumonia Current Visit: Yes Status: Chronic Qualifiers: Pneumonia type: due to unspecified organism Laterality: right Lung location: lower lobe of lung Qualified Code(s): J18.1 - Lobar pneumonia, unspecified organism (7) Hypertension Current Visit: Yes Status: Chronic Qualifiers: Hypertension type: essential hypertension Qualified Code(s): I10 - Essential (primary) hypertension (8) Diastolic CHF Current Visit: Yes Status: Chronic Qualifiers: Congestive heart failure chronicity: chronic Qualified Code(s): I50.32 - Chronic diastolic (congestive) heart failure - Subjective Interval history: Ms. Yasmeen Dewitt was seen today. She is admitted for CHF COPD exacerbation and pneumonia. She has history of MVR and she is on Coumadin. INR is therapeutic. Rate is controlled. She has history of A. fib. She still feels short of breath. Oxygen was increased recently. I noted she has JVD and rhonchi. We will maximize her lung treatment including IV steroid nebulizer mucinous and antibiotics . I will increase her Lasix 80 mg IV twice a day with Zaroxolyn 10 and will try to diurese her aggressively as she appears to be in CHF. 03/17 Patient was placed on higher dose of Lasix and Zaroxolyn and she has produced significant amount of urine and now she is -4500 for this admission. Renal function is still reasonable. I will continue to diurese her for next couple of days at least. 03/18 Clinically feels better less symptomatic less short of breath. Eager to go home. Potassium was low and will be supplemented. Morning labs checked and repeat level for tomorrow ordered.. -2 L net every day and -5 L total in the last 2 days. - Constitutional Vitals: Temp Pulse Resp BP Pulse Ox 97.9 F 96 16 125/73 95 03/18/17 11:01 03/18/17 11:05 03/18/17 11:38 03/18/17 11:05 03/18/17 11:38 General appearance: Present: cooperative, mild distress, A&O X 3, pleasant, obese, answers questions appropriately - Head Head exam: Present: atraumatic, normocephalic - Eye Eye exam: Present: PERRL, conjuntiva pink, sclera anicteric Pupils: Present: PERRL - Neck Neck exam general surgery: Present: supple, trachea midline. Absent: lymphadenopathy - Respiratory Respiratory exam: Present: CTAB. Absent: accessory muscle use, rales, rhonchi, wheezes - Cardiovascular Cardiovascular exam: Present: RRR, +S1, +S2. Absent: diastolic murmur, gallop, rubs, systolic murmur - GI/Abdominal GI/Abdominal exam: Present: normal bowel sounds, soft, no peritoneal signs. Absent: distended, tenderness - Extremities Exam Extremities exam: Present: warm, radial pulses palpable and symmetrical. Absent : calf tenderness, cyanotic, pedal edema - Neurological Exam Neurological exam: Present: CN II-XII intact, oriented X3, no focal deficits. Absent: pronater drift, facial droop, speech deficit - Skin Skin exam: Present: dry, intact Internal Medicine: Result - Labs CBC & Chem 7: 03/16/17 03:25 03/18/17 14:39 - ABG Interpretation ABG results: PT/INR, D-dimer PT 35.8 Seconds (9.4-12.1) H 03/18/17 03:30 - VTE Documentation of Mechanical Device: Intermittent pneumatic compression device Consult Discharge Plan - Plan Referrals: Manuel Andrade, VANESSA [Advanced Practice Nurse] - 03/23/17 1:00 pm Christoph Hughes DO [Primary Care Provider] - 03/29/17 10:15 am ()
[2017-03-18 15:04] LABS: Calcium 9.1 mg/dL (8.6-10.8)
[2017-03-18] MEDS: Furosemide 40 MG TABLET PO SCH (16:23)
[2017-03-18] MEDS ORDERED: *HR* Warfarin 2.5 MG TABLET PO ONE (18:00)
[2017-03-18] MEDS: Gabapentin 100 MG CAPSULE PO SCH (21:49)
[2017-03-19] MEDS: methylPREDNISolone 125 MG/2 ML VIAL IVP SCH ×3 (00:33→17:15)
[2017-03-19] MEDS: Aztreonam 1,000 MG in D5% in Water (Mini-Bag+) 100 ML IVPB SCH ×4 (00:33→23:39)
[2017-03-19 04:32] LABS: INR 3.1; Prothrombin Time 34.6 Seconds (9.4-12.1)
[2017-03-19 04:37] LABS: Basophils % 0.2 %; Hematocrit 38.1 % (35.3-44.9); Immature Granulocytes % 1.6 % (0-4); Lymphocytes # 0.8 K/mcL (0.6-4.6); Lymphocytes % 4.5 %; Mean Corpuscular HGB Conc 31.2 g/dL (31.6-35.5); Mean Corpuscular Hemoglobin 25.5 pg (28.0-33.3); Mean Corpuscular Volume 81.6 fL (83.0-100.0); Mean Platelet Volume 10.6 fL (9.4-12.4); Monocytes % 4.3 %; Neutrophils # 15.5 K/mcL (1.6-8.9); Nucleated Red Blood Cells 0.2 /100 WBC (0); Platelet Count 248 K/mcL (140-400); Red Blood Count 4.67 M/mcL (3.82-4.97); Red Cell Distribution Width 16.7 % (11.5-14.5); Segmented Neutrophils % 89.4 %
[2017-03-19 04:40] LABS: Alanine Aminotransferase 26 Units/L (0-55); Albumin 2.8 g/dL (3.5-5.0); Albumin/Globulin Ratio 0.8 (1.1-2.2); Alkaline Phosphatase 252 Units/L (38-126); Aspartate Amino Transferase 22 Units/L (5-34); BUN/Creatinine Ratio 65 (6-26); Bilirubin,Total 0.4 mg/dL (0.2-1.2); Blood Urea Nitrogen 60 mg/dL (7-20); Calcium 8.8 mg/dL (8.6-10.8); Carbon Dioxide 36 mEq/L (19-29); Chloride 88 mEq/L (98-109); Globulin 3.3 g/dL (2.4-3.5); Glucose 187 mg/dL (70-99); Osmolality,Calculated 310 (280-300); Potassium 3.6 mEq/L (3.5-4.5); Sodium 139 mEq/L (136-145); Total Protein 6.1 g/dL (6.0-8.3); eGFR For African Americans > 60 (> 60); eGFR For Non-African Americans 60 (> 60)
[2017-03-19 04:44] LABS: Hemoglobin 11.9 g/dL (11.5-15.4); Monocytes # 0.7 K/mcL (0.0-1.3)
[2017-03-19] MEDS: metOLazone 5 MG TABLET PO SCH (06:11)
[2017-03-19] MEDS: Ipratropium Neb 0.5 MG NEBULIZER IH SCH ×4 (06:26→22:21)
[2017-03-19] MEDS: Levalbuterol Neb 0.63 MG/3 ML IH SCH ×4 (06:26→22:21)
[2017-03-19] MEDS: Insulin LISPRO 300 UNITS/3 ML VIAL SQ SCH ×4 (08:28→21:14)
[2017-03-19] MEDS: *HR* HYDROcodone/Acet 5/325 mg TABLET PO PRN ×3 (08:31→21:19)
[2017-03-19] MEDS: Diltiazem CD (24hr) 180 MG CAPSULE PO SCH (08:31)
[2017-03-19] MEDS: *HR* LORazepam 0.5 MG TABLET PO PRN ×2 (08:31→21:19)
[2017-03-19] MEDS: Cholecalciferol (D-3) 1,000 UNIT TABLET PO SCH (08:32)
[2017-03-19] MEDS: Fluticasone Propionate Nasal 50 MCG/SPRAY BOTTLE NS SCH (08:32)
[2017-03-19] MEDS: Magnesium Oxide 400 MG TABLET PO SCH ×2 (08:32→21:13)
[2017-03-19] MEDS: Folic Acid 1 MG TABLET PO SCH (08:32)
[2017-03-19] MEDS: Lactobacillus 1 EACH CAP.SPRINK PO SCH ×2 (08:32→21:12)
[2017-03-19] MEDS: Sennosides/Docusate Sodium TABLET PO SCH ×2 (08:32→21:12)
[2017-03-19] MEDS: Furosemide 40 MG TABLET PO SCH ×2 (08:32→17:14)
[2017-03-19] MEDS: Loratadine 10 MG TABLET PO SCH (08:32)
[2017-03-19] MEDS: *HR* Digoxin 0.125 MG TABLET PO SCH (08:32)
[2017-03-19] MEDS: *HR* Amiodarone 200 MG TABLET PO SCH (08:34)
--- NOTE | 2017-03-19 09:23 | Internal Med Progress Note ---
Date of Encounter: 03/19/17 Time of Encounter: 09:21 - Assessment and plan (1) Acute and chronic respiratory failure Current Visit: Yes Status: Chronic Qualifiers: Respiratory failure complication: hypoxia and hypercapnia Qualified Code(s) : J96.21 - Acute and chronic respiratory failure with hypoxia; J96.22 - Acute and chronic respiratory failure with hypercapnia (2) COPD exacerbation Current Visit: Yes Status: Acute (3) Rapid atrial fibrillation Current Visit: Yes Status: Acute (4) Pneumonia Current Visit: Yes Status: Acute Qualifiers: Pneumonia type: due to methicillin-sensitive Staphylococcus aureus (MSSA) Laterality: right Lung location: lower lobe of lung Qualified Code(s): J15.211 - Pneumonia due to Methicillin susceptible Staphylococcus aureus (5) H/O mitral valve replacement with mechanical valve Current Visit: Yes Status: Chronic (6) Pneumonia Current Visit: Yes Status: Chronic Qualifiers: Pneumonia type: due to unspecified organism Laterality: right Lung location: lower lobe of lung Qualified Code(s): J18.1 - Lobar pneumonia, unspecified organism (7) Hypertension Current Visit: Yes Status: Chronic Qualifiers: Hypertension type: essential hypertension Qualified Code(s): I10 - Essential (primary) hypertension (8) Diastolic CHF Current Visit: Yes Status: Chronic Qualifiers: Congestive heart failure chronicity: chronic Qualified Code(s): I50.32 - Chronic diastolic (congestive) heart failure - Subjective Interval history: Ms. Yasmeen Dewitt was seen today. She is admitted for CHF COPD exacerbation and pneumonia. She has history of MVR and she is on Coumadin. INR is therapeutic. Rate is controlled. She has history of A. fib. She still feels short of breath. Oxygen was increased recently. I noted she has JVD and rhonchi. We will maximize her lung treatment including IV steroid nebulizer mucinous and antibiotics . I will increase her Lasix 80 mg IV twice a day with Zaroxolyn 10 and will try to diurese her aggressively as she appears to be in CHF. 03/17 Patient was placed on higher dose of Lasix and Zaroxolyn and she has produced significant amount of urine and now she is -4500 for this admission. Renal function is still reasonable. I will continue to diurese her for next couple of days at least. 03/18 Clinically feels better less symptomatic less short of breath. Eager to go home. Potassium was low and will be supplemented. Morning labs checked and repeat level for tomorrow ordered.. -2 L net every day and -5 L total in the last 2 days. 03/19 breathing has improved. We have diuresed her enough therefore we have switched her to oral Lasix and stop her Zaroxolyn. Renal function seems much better this morning now and creatinine has normalized.. Potassium is borderline around 3.6 therefore Mary Jo Ciel 40 mg twice a day given and recheck potassium tomorrow. She Is still on nebulizers and high-dose IV steroid. She has a lot of rhonchi and I tried to switch her from Mucomyst to Mucinex which she had declined. WBC count has gone up which I suspect is due to steroid however chest x-ray will be done to make sure not pneumonia started getting worse. I have advised her to use incentive spirometry and asked nurse to arrange for chest PT - Constitutional Vitals: Temp Pulse Resp BP Pulse Ox 97.6 F 90 19 131/72 91 03/19/17 07:28 03/19/17 08:13 03/19/17 07:28 03/19/17 07:28 03/19/17 07:28 General appearance: Present: cooperative, mild distress, A&O X 3, pleasant, obese, answers questions appropriately - Head Head exam: Present: atraumatic, normocephalic - Eye Eye exam: Present: PERRL, conjuntiva pink, sclera anicteric Pupils: Present: PERRL - Neck Neck exam general surgery: Present: supple, trachea midline. Absent: lymphadenopathy - Respiratory Respiratory exam: Present: decreased breath sounds, rhonchi, wheezes. Absent: accessory muscle use, rales - Cardiovascular Cardiovascular exam: Present: RRR, +S1, +S2. Absent: diastolic murmur, gallop, rubs, systolic murmur - GI/Abdominal GI/Abdominal exam: Present: normal bowel sounds, soft, no peritoneal signs. Absent: distended, tenderness - Extremities Exam Extremities exam: Present: warm, radial pulses palpable and symmetrical. Absent : calf tenderness, cyanotic, pedal edema - Neurological Exam Neurological exam: Present: CN II-XII intact, oriented X3, no focal deficits. Absent: pronater drift, facial droop, speech deficit - Skin Skin exam: Present: dry, intact Internal Medicine: Result - Labs CBC & Chem 7: 03/19/17 04:17 03/19/17 04:17 Labs: Short CBC 03/19/17 Range/Units 04:17 WBC 17.3 H D (4.3-11.1) K/mcL Hgb 11.9 D (11.5-15.4) g/dL Hct 38.1 (35.3-44.9) % Plt Count 248 D (140-400) K/mcL Neutrophils # 15.5 H (1.6-8.9) K/mcL BMP 03/18/17 03/19/17 14:39 04:17 Sodium 135 L 139 Potassium 3.0 L D 3.6 Chloride 88 L 88 L Carbon Dioxide 35 H 36 H BUN 56 H D 60 H Creatinine 1.42 H D 0.93 Glucose 193 H 187 H Calcium 9.1 8.8 Liver Function 03/19/17 Range/Units 04:17 Total Bilirubin 0.4 (0.2-1.2) mg/dL AST 22 (5-34) Units/L ALT 26 (0-55) Units/L Alkaline Phosphatase 252 H (38-126) Units/L Albumin 2.8 L (3.5-5.0) g/dL - ABG Interpretation ABG results: PT/INR, D-dimer PT 34.6 Seconds (9.4-12.1) H 03/19/17 04:17 - VTE Documentation of Mechanical Device: Intermittent pneumatic compression device Consult Discharge Plan - Plan Referrals: Manuel Andrade CNP [Advanced Practice Nurse] - 03/23/17 1:00 pm Christoph Hughes DO [Primary Care Provider] - 03/29/17 10:15 am ()
[2017-03-19] MEDS: Budesonide/Formoterol 160/4.5 MDI IH SCH ×2 (11:08→22:21)
[2017-03-19] MEDS: Acetylcysteine 10% 2 ML INHSOL IH SCH ×3 (11:08→22:22)
[2017-03-19] MEDS ORDERED: *HR* Warfarin 3 MG TABLET PO ONE (18:00)
[2017-03-19] MEDS: Gabapentin 100 MG CAPSULE PO SCH (21:13)
[2017-03-20] MEDS: Levalbuterol Neb 0.63 MG/3 ML IH SCH ×4 (04:29→22:42)
[2017-03-20] MEDS: Ipratropium Neb 0.5 MG NEBULIZER IH SCH ×4 (04:30→22:42)
[2017-03-20] MEDS: methylPREDNISolone 125 MG/2 ML VIAL IVP SCH ×3 (04:52→17:59)
[2017-03-20 05:26] LABS: Basophils % 0.2 %; Hematocrit 36.4 % (35.3-44.9); Hemoglobin 11.1 g/dL (11.5-15.4); Immature Granulocytes % 1.5 % (0-4); Lymphocytes # 0.7 K/mcL (0.6-4.6); Lymphocytes % 3.9 %; Mean Corpuscular HGB Conc 30.5 g/dL (31.6-35.5); Mean Corpuscular Hemoglobin 24.4 pg (28.0-33.3); Mean Corpuscular Volume 80.2 fL (83.0-100.0); Mean Platelet Volume 10.6 fL (9.4-12.4); Monocytes # 1.2 K/mcL (0.0-1.3); Monocytes % 6.9 %; Neutrophils # 14.8 K/mcL (1.6-8.9); Platelet Count 176 K/mcL (140-400); Red Blood Count 4.54 M/mcL (3.82-4.97); Red Cell Distribution Width 16.2 % (11.5-14.5); Segmented Neutrophils % 87.5 %
[2017-03-20 05:31] LABS: INR 3.4; Prothrombin Time 37.2 Seconds (9.4-12.1)
[2017-03-20 06:19] LABS: Bilirubin,Total 0.5 mg/dL (0.2-1.2); Calcium 8.7 mg/dL (8.6-10.8); Potassium 2.9 mEq/L (3.5-4.5); Total Protein 5.5 g/dL (6.0-8.3)
[2017-03-20 07:33] LABS: Albumin 3.1 g/dL (3.5-5.0); Albumin/Globulin Ratio 1.3 (1.1-2.2); Globulin 2.4 g/dL (2.4-3.5)
[2017-03-20] MEDS: Insulin LISPRO 300 UNITS/3 ML VIAL SQ SCH ×4 (08:47→21:45)
[2017-03-20] MEDS: Loratadine 10 MG TABLET PO SCH (08:57)
[2017-03-20] MEDS: Diltiazem CD (24hr) 180 MG CAPSULE PO SCH (08:57)
[2017-03-20] MEDS: Furosemide 40 MG TABLET PO SCH (08:57)
[2017-03-20] MEDS: *HR* Amiodarone 200 MG TABLET PO SCH (08:58)
[2017-03-20] MEDS: Fluticasone Propionate Nasal 50 MCG/SPRAY BOTTLE NS SCH (08:58)
[2017-03-20] MEDS: Lactobacillus 1 EACH CAP.SPRINK PO SCH ×2 (08:58→21:41)
[2017-03-20] MEDS: Cholecalciferol (D-3) 1,000 UNIT TABLET PO SCH (08:59)
[2017-03-20] MEDS: *HR* Digoxin 0.125 MG TABLET PO SCH (08:59)
[2017-03-20] MEDS: Magnesium Oxide 400 MG TABLET PO SCH ×2 (08:59→21:43)
[2017-03-20] MEDS: Sennosides/Docusate Sodium TABLET PO SCH ×2 (08:59→21:42)
[2017-03-20] MEDS: Folic Acid 1 MG TABLET PO SCH (08:59)
[2017-03-20] MEDS: Aztreonam 1,000 MG in D5% in Water (Mini-Bag+) 100 ML IVPB SCH ×2 (09:03→15:49)
[2017-03-20] MEDS: *HR* LORazepam 0.5 MG TABLET PO PRN ×2 (09:04→21:42)
[2017-03-20] MEDS: *HR* HYDROcodone/Acet 5/325 mg TABLET PO PRN ×3 (09:04→21:41)
[2017-03-20] MEDS ORDERED: Potassium Chloride 40 MEQ, Lidocaine 1% 2 ML in D5% in Water 500 ML IVPB ONE (10:01)
[2017-03-20] MEDS ORDERED: Magnesium Sulfate 2 GM in D5% in Water 100 ML IVPB ONE (10:01)
[2017-03-20] MEDS: Budesonide/Formoterol 160/4.5 MDI IH SCH ×2 (10:07→22:42)
[2017-03-20] MEDS: Acetylcysteine 10% 2 ML INHSOL IH SCH (10:09)
--- NOTE | 2017-03-20 10:09 | Internal Med Progress Note ---
Date of Encounter: 03/20/17 Time of Encounter: 10:05 - Assessment and plan (1) Acute and chronic respiratory failure Current Visit: Yes Status: Chronic Qualifiers: Respiratory failure complication: hypoxia and hypercapnia Qualified Code(s) : J96.21 - Acute and chronic respiratory failure with hypoxia; J96.22 - Acute and chronic respiratory failure with hypercapnia (2) COPD exacerbation Current Visit: Yes Status: Acute (3) Rapid atrial fibrillation Current Visit: Yes Status: Acute (4) Pneumonia Current Visit: Yes Status: Acute Qualifiers: Pneumonia type: due to methicillin-sensitive Staphylococcus aureus (MSSA) Laterality: right Lung location: lower lobe of lung Qualified Code(s): J15.211 - Pneumonia due to Methicillin susceptible Staphylococcus aureus (5) H/O mitral valve replacement with mechanical valve Current Visit: Yes Status: Chronic (6) Pneumonia Current Visit: Yes Status: Chronic Qualifiers: Pneumonia type: due to unspecified organism Laterality: right Lung location: lower lobe of lung Qualified Code(s): J18.1 - Lobar pneumonia, unspecified organism (7) Hypertension Current Visit: Yes Status: Chronic Qualifiers: Hypertension type: essential hypertension Qualified Code(s): I10 - Essential (primary) hypertension (8) Diastolic CHF Current Visit: Yes Status: Chronic Qualifiers: Congestive heart failure chronicity: chronic Qualified Code(s): I50.32 - Chronic diastolic (congestive) heart failure - Subjective Interval history: Ms. Yasmeen Dewitt was seen today. She is admitted for CHF COPD exacerbation and pneumonia. She has history of MVR and she is on Coumadin. INR is therapeutic. She has history of A. fib and Rate is controlled. Patient is diuresed very well and she is -10 L before this admission. However her creatinine has gone up therefore at this time I will hold her Lasix and daily potassium. I will also DC her Mucomyst for the same reason. Her potassium is 2.9 this morning therefore only for today I will give her 40 mEq by mouth and 40 IV dose. Will repeat potassium and renal function tomorrow morning. Unfortunately she is still have rhonchi and diffuse wheezing in her lungs and I think part of it is COPD exacerbation but part of it is due to her underlying pulmonary pathology. She Is still on nebulizers and high-dose IV steroid. Add Mucinex. WBC count is still 16.9 and repeat chest x-ray yesterday has been shown no worsening of her right lower lobe pneumonia and effusion. I have advised her to use incentive spirometry and asked nurse to arrange for chest PT - Constitutional Vitals: Temp Pulse Resp BP Pulse Ox 98.2 F 91 18 123/79 95 03/20/17 07:29 03/20/17 07:29 03/20/17 07:29 03/20/17 07:29 03/20/17 07:29 General appearance: Present: cooperative, A&O X 3, pleasant, no acute distress, obese, answers questions appropriately - Head Head exam: Present: atraumatic, normocephalic - Eye Eye exam: Present: PERRL, conjuntiva pink, sclera anicteric Pupils: Present: PERRL - Neck Neck exam general surgery: Present: supple, trachea midline. Absent: lymphadenopathy - Respiratory Respiratory exam: Present: CTAB, rhonchi, wheezes. Absent: accessory muscle use , rales - Cardiovascular Cardiovascular exam: Present: RRR, +S1, +S2. Absent: diastolic murmur, gallop, rubs, systolic murmur - GI/Abdominal GI/Abdominal exam: Present: normal bowel sounds, soft, no peritoneal signs. Absent: distended, tenderness - Extremities Exam Extremities exam: Present: warm, radial pulses palpable and symmetrical. Absent : calf tenderness, cyanotic, pedal edema - Neurological Exam Neurological exam: Present: CN II-XII intact, oriented X3, no focal deficits. Absent: pronater drift, facial droop, speech deficit - Skin Skin exam: Present: dry, intact Internal Medicine: Result - Labs CBC & Chem 7: 03/20/17 05:09 03/20/17 05:09 Labs: Short CBC 03/20/17 Range/Units 05:09 WBC 16.9 H (4.3-11.1) K/mcL Hgb 11.1 L (11.5-15.4) g/dL Hct 36.4 (35.3-44.9) % Plt Count 176 (140-400) K/mcL Neutrophils # 14.8 H (1.6-8.9) K/mcL BMP 03/20/17 05:09 Sodium 135 L Potassium 2.9 L Chloride 86 L Carbon Dioxide 39 H BUN 70 H Creatinine 1.36 H Glucose 201 H Calcium 8.7 Liver Function 03/20/17 Range/Units 05:09 Total Bilirubin 0.5 (0.2-1.2) mg/dL AST 24 (5-34) Units/L ALT 24 (0-55) Units/L Alkaline Phosphatase 278 H (38-126) Units/L Albumin 3.1 L (3.5-5.0) g/dL - ABG Interpretation ABG results: PT/INR, D-dimer PT 37.2 Seconds (9.4-12.1) H 03/20/17 05:09 - Impressions Impressions Chest X-Ray 03/19/17 09:20 IMPRESSION: No acute cardiopulmonary process. No significant change in small right pleural effusion and right infrahilar and basilar airspace disease. Findings compatible with background COPD. D/ / 03/19/2017 11:34:56 Aggie Spence MD / bcarter Interpreting Provider: Aggie Spence MD - VTE Documentation of Mechanical Device: Intermittent pneumatic compression device Consult Discharge Plan - Plan Referrals: Manuel Andrade CNP [Advanced Practice Nurse] - 03/23/17 1:00 pm Christoph Hughes DO [Primary Care Provider] - 03/29/17 10:15 am ()
[2017-03-20] MEDS: *HR* Warfarin 2.5 MG TABLET PO SCH (17:59)
[2017-03-20] MEDS: Gabapentin 100 MG CAPSULE PO SCH (21:41)
[2017-03-21] MEDS: Aztreonam 1,000 MG in D5% in Water (Mini-Bag+) 100 ML IVPB SCH ×3 (00:07→16:51)
[2017-03-21] MEDS: methylPREDNISolone 125 MG/2 ML VIAL IVP SCH ×3 (02:40→17:39)
[2017-03-21] MEDS: Levalbuterol Neb 0.63 MG/3 ML IH SCH ×4 (04:07→22:58)
[2017-03-21] MEDS: Ipratropium Neb 0.5 MG NEBULIZER IH SCH ×4 (04:07→22:58)
[2017-03-21 04:16] LABS: Basophils % 0.1 %; Hematocrit 34.3 % (35.3-44.9); Hemoglobin 10.4 g/dL (11.5-15.4); Immature Granulocytes % 1.3 % (0-4); Lymphocytes # 0.4 K/mcL (0.6-4.6); Lymphocytes % 2.6 %; Mean Corpuscular HGB Conc 30.3 g/dL (31.6-35.5); Mean Corpuscular Hemoglobin 24.5 pg (28.0-33.3); Mean Corpuscular Volume 80.7 fL (83.0-100.0); Mean Platelet Volume 10.3 fL (9.4-12.4); Monocytes # 0.5 K/mcL (0.0-1.3); Monocytes % 3.8 %; Neutrophils # 13.2 K/mcL (1.6-8.9); Nucleated Red Blood Cells 0.1 /100 WBC (0); Platelet Count 132 K/mcL (140-400); Red Blood Count 4.25 M/mcL (3.82-4.97); Red Cell Distribution Width 16.3 % (11.5-14.5); Segmented Neutrophils % 92.2 %
[2017-03-21 04:31] LABS: Albumin 2.7 g/dL (3.5-5.0); Bilirubin,Total 0.6 mg/dL (0.2-1.2); Calcium 8.5 mg/dL (8.6-10.8); Globulin 2.7 g/dL (2.4-3.5); Potassium 3.4 mEq/L (3.5-4.5); Total Protein 5.4 g/dL (6.0-8.3)
[2017-03-21] MEDS: Insulin LISPRO 300 UNITS/3 ML VIAL SQ SCH ×4 (08:42→20:56)
[2017-03-21] MEDS: Sennosides/Docusate Sodium TABLET PO SCH ×2 (08:43→20:53)
[2017-03-21] MEDS: *HR* Amiodarone 200 MG TABLET PO SCH (08:43)
[2017-03-21] MEDS: *HR* Digoxin 0.125 MG TABLET PO SCH (08:43)
[2017-03-21] MEDS: Cholecalciferol (D-3) 1,000 UNIT TABLET PO SCH (08:43)
[2017-03-21] MEDS: Lactobacillus 1 EACH CAP.SPRINK PO SCH ×2 (08:43→20:53)
[2017-03-21] MEDS: Fluticasone Propionate Nasal 50 MCG/SPRAY BOTTLE NS SCH (08:43)
[2017-03-21] MEDS: Diltiazem CD (24hr) 180 MG CAPSULE PO SCH (08:43)
[2017-03-21] MEDS: Folic Acid 1 MG TABLET PO SCH (08:43)
[2017-03-21] MEDS: Magnesium Oxide 400 MG TABLET PO SCH ×2 (08:43→20:53)
[2017-03-21] MEDS: Loratadine 10 MG TABLET PO SCH (08:44)
[2017-03-21] MEDS: *HR* HYDROcodone/Acet 5/325 mg TABLET PO PRN ×2 (08:46→22:43)
[2017-03-21] MEDS: *HR* LORazepam 0.5 MG TABLET PO PRN ×2 (09:00→22:43)
[2017-03-21] MEDS: Budesonide/Formoterol 160/4.5 MDI IH SCH ×2 (11:00→22:58)
--- NOTE | 2017-03-21 16:05 | Internal Med Progress Note ---
Date of Encounter: 03/21/17 Time of Encounter: 16:04 - Assessment and plan (1) Acute and chronic respiratory failure Current Visit: Yes Status: Chronic Qualifiers: Respiratory failure complication: hypoxia and hypercapnia Qualified Code(s) : J96.21 - Acute and chronic respiratory failure with hypoxia; J96.22 - Acute and chronic respiratory failure with hypercapnia (2) COPD exacerbation Current Visit: Yes Status: Acute (3) Rapid atrial fibrillation Current Visit: Yes Status: Acute (4) Pneumonia Current Visit: Yes Status: Acute Qualifiers: Pneumonia type: due to methicillin-sensitive Staphylococcus aureus (MSSA) Laterality: right Lung location: lower lobe of lung Qualified Code(s): J15.211 - Pneumonia due to Methicillin susceptible Staphylococcus aureus (5) H/O mitral valve replacement with mechanical valve Current Visit: Yes Status: Chronic (6) Pneumonia Current Visit: Yes Status: Chronic Qualifiers: Pneumonia type: due to unspecified organism Laterality: right Lung location: lower lobe of lung Qualified Code(s): J18.1 - Lobar pneumonia, unspecified organism (7) Hypertension Current Visit: Yes Status: Chronic Qualifiers: Hypertension type: essential hypertension Qualified Code(s): I10 - Essential (primary) hypertension (8) Diastolic CHF Current Visit: Yes Status: Chronic Qualifiers: Congestive heart failure chronicity: chronic Qualified Code(s): I50.32 - Chronic diastolic (congestive) heart failure - Subjective Interval history: Ms. Yasmeen Dewitt was seen today. She is admitted for CHF COPD exacerbation and pneumonia. She has history of MVR and she is on Coumadin. INR is therapeutic. She has history of A. fib and Rate is controlled. Patient is diuresed very well and she is -10 L before this admission. However her creatinine has gone up therefore at this time I will hold her Lasix and daily potassium. I will also DC her Mucomyst for the same reason. Her potassium is 2.9 this morning therefore only for today I will give her 40 mEq by mouth and 40 IV dose. Will repeat potassium and renal function tomorrow morning. Unfortunately she is still have rhonchi and diffuse wheezing in her lungs and I think part of it is COPD exacerbation but part of it is due to her underlying pulmonary pathology. She Is still on nebulizers and high-dose IV steroid. Add Mucinex. WBC count is still 16.9 and repeat chest x-ray yesterday has been shown no worsening of her right lower lobe pneumonia and effusion. I have advised her to use incentive spirometry and asked nurse to arrange for chest PT 03/21 overall feels some improvement. White count is coming down nicely as well as creatinine is improving. PT/INR pending. Order any own. Chest examination showed scattered rhonchi better breath sounds. Continue current level of IV steroid and probably from tomorrow can switch her to high-dose oral steroid versus slow taper and then discharge home. She is due to start her chemotherapy treatment for her lung cancer from of this month. - Constitutional Vitals: Temp Pulse Resp BP Pulse Ox 98.4 F 90 17 163/81 95 03/21/17 15:46 03/21/17 15:46 03/21/17 15:46 03/21/17 15:46 03/21/17 15:46 General appearance: Present: cooperative, A&O X 3, pleasant, no acute distress, obese, answers questions appropriately - Head Head exam: Present: atraumatic, normocephalic - Eye Eye exam: Present: PERRL, conjuntiva pink, sclera anicteric Pupils: Present: PERRL - Neck Neck exam general surgery: Present: supple, trachea midline. Absent: lymphadenopathy - Respiratory Respiratory exam: Present: CTAB, rhonchi, wheezes. Absent: accessory muscle use , rales - Cardiovascular Cardiovascular exam: Present: RRR, +S1, +S2. Absent: diastolic murmur, gallop, rubs, systolic murmur - GI/Abdominal GI/Abdominal exam: Present: normal bowel sounds, soft, no peritoneal signs. Absent: distended, tenderness - Extremities Exam Extremities exam: Present: warm, radial pulses palpable and symmetrical. Absent : calf tenderness, cyanotic, pedal edema - Neurological Exam Neurological exam: Present: CN II-XII intact, oriented X3, no focal deficits. Absent: pronater drift, facial droop, speech deficit - Skin Skin exam: Present: dry, intact Internal Medicine: Result - Labs CBC & Chem 7: 03/21/17 04:10 03/21/17 04:10 Labs: Short CBC 03/21/17 Range/Units 04:10 WBC 14.3 H (4.3-11.1) K/mcL Hgb 10.4 L (11.5-15.4) g/dL Hct 34.3 L (35.3-44.9) % Plt Count 132 L (140-400) K/mcL Neutrophils # 13.2 H (1.6-8.9) K/mcL BMP 03/21/17 04:10 Sodium 135 L Potassium 3.4 L Chloride 87 L Carbon Dioxide 37 H BUN 70 H Creatinine 1.21 H Glucose 178 H Calcium 8.5 L Liver Function 03/21/17 Range/Units 04:10 Total Bilirubin 0.6 (0.2-1.2) mg/dL AST 24 (5-34) Units/L ALT 24 (0-55) Units/L Alkaline Phosphatase 245 H (38-126) Units/L Albumin 2.7 L (3.5-5.0) g/dL - ABG Interpretation ABG results: PT/INR, D-dimer PT 37.2 Seconds (9.4-12.1) H 03/20/17 05:09 - VTE Documentation of Mechanical Device: Graduated compression elastic hosiery Consult Discharge Plan - Plan Referrals: Manuel Andrade CNP [Advanced Practice Nurse] - 03/23/17 1:00 pm Christoph Hughes DO [Primary Care Provider] - 03/29/17 10:15 am ()
[2017-03-21 16:54] LABS: INR 2.5; Prothrombin Time 26.9 Seconds (9.4-12.1)
[2017-03-21] MEDS: *HR* Warfarin 2.5 MG TABLET PO SCH (17:39)
[2017-03-21] MEDS: Gabapentin 100 MG CAPSULE PO SCH (20:53)
[2017-03-22] MEDS: Aztreonam 1,000 MG in D5% in Water (Mini-Bag+) 100 ML IVPB SCH ×3 (00:27→17:50)
[2017-03-22] MEDS: methylPREDNISolone 125 MG/2 ML VIAL IVP SCH ×3 (02:46→17:50)
[2017-03-22] MEDS: Ipratropium Neb 0.5 MG NEBULIZER IH SCH ×3 (03:57→16:16)
[2017-03-22] MEDS: Levalbuterol Neb 0.63 MG/3 ML IH SCH ×3 (03:57→16:16)
[2017-03-22 04:39] LABS: Basophils % 0.1 %; Hematocrit 32.8 % (35.3-44.9); Hemoglobin 10.1 g/dL (11.5-15.4); Immature Granulocytes % 2.2 % (0-4); Lymphocytes # 0.3 K/mcL (0.6-4.6); Lymphocytes % 2.5 %; Mean Corpuscular HGB Conc 30.8 g/dL (31.6-35.5); Mean Corpuscular Volume 81.2 fL (83.0-100.0); Mean Platelet Volume 10.5 fL (9.4-12.4); Monocytes # 0.5 K/mcL (0.0-1.3); Monocytes % 3.9 %; Neutrophils # 11.6 K/mcL (1.6-8.9); Platelet Count 136 K/mcL (140-400); Red Blood Count 4.04 M/mcL (3.82-4.97); Red Cell Distribution Width 16.1 % (11.5-14.5); Segmented Neutrophils % 91.3 %
[2017-03-22 04:44] LABS: INR 2.2; Prothrombin Time 24.5 Seconds (9.4-12.1)
[2017-03-22 05:01] LABS: Alanine Aminotransferase 25 Units/L (0-55); Albumin 2.6 g/dL (3.5-5.0); Albumin/Globulin Ratio 0.9 (1.1-2.2); Alkaline Phosphatase 254 Units/L (38-126); Aspartate Amino Transferase 22 Units/L (5-34); BUN/Creatinine Ratio 64 (6-26); Bilirubin,Total 0.5 mg/dL (0.2-1.2); Blood Urea Nitrogen 58 mg/dL (7-20); Calcium 9.1 mg/dL (8.6-10.8); Carbon Dioxide 38 mEq/L (19-29); Chloride 93 mEq/L (98-109); Globulin 2.8 g/dL (2.4-3.5); Glucose 219 mg/dL (70-99); Osmolality,Calculated 307 (280-300); Potassium 3.4 mEq/L (3.5-4.5); Sodium 137 mEq/L (136-145); Total Protein 5.4 g/dL (6.0-8.3); eGFR For African Americans > 60 (> 60); eGFR For Non-African Americans > 60 (> 60)
[2017-03-22] MEDS: Sennosides/Docusate Sodium TABLET PO SCH (09:10)
[2017-03-22] MEDS: Cholecalciferol (D-3) 1,000 UNIT TABLET PO SCH (09:10)
[2017-03-22] MEDS: Magnesium Oxide 400 MG TABLET PO SCH (09:10)
[2017-03-22] MEDS: Diltiazem CD (24hr) 180 MG CAPSULE PO SCH (09:10)
[2017-03-22] MEDS: *HR* Digoxin 0.125 MG TABLET PO SCH (09:11)
[2017-03-22] MEDS: Loratadine 10 MG TABLET PO SCH (09:11)
[2017-03-22] MEDS: Folic Acid 1 MG TABLET PO SCH (09:11)
[2017-03-22] MEDS: *HR* Amiodarone 200 MG TABLET PO SCH (09:11)
[2017-03-22] MEDS: *HR* LORazepam 0.5 MG TABLET PO PRN (09:17)
[2017-03-22] MEDS: *HR* HYDROcodone/Acet 5/325 mg TABLET PO PRN (09:17)
[2017-03-22] MEDS: Insulin LISPRO 300 UNITS/3 ML VIAL SQ SCH ×3 (09:18→17:51)
[2017-03-22] MEDS: Fluticasone Propionate Nasal 50 MCG/SPRAY BOTTLE NS SCH (09:23)
[2017-03-22] MEDS: Lactobacillus 1 EACH CAP.SPRINK PO SCH (10:54)
[2017-03-22] MEDS: Budesonide/Formoterol 160/4.5 MDI IH SCH (10:58)
[2017-03-22 15:35] VITALS: BP 109/62
--- NOTE | 2017-03-22 16:59 | Discharge Summary ---
Date of Encounter: 03/22/17 Time of Encounter: 16:45 - Discharge Diagnosis (1) Acute and chronic respiratory failure Priority: Primary Status: Chronic Qualifiers: Respiratory failure complication: hypoxia and hypercapnia Qualified Code(s) : J96.21 - Acute and chronic respiratory failure with hypoxia; J96.22 - Acute and chronic respiratory failure with hypercapnia (2) COPD exacerbation Priority: Secondary Status: Acute (3) Rapid atrial fibrillation Priority: Secondary Status: Acute (4) Pneumonia Priority: Secondary Status: Acute Qualifiers: Pneumonia type: due to methicillin-sensitive Staphylococcus aureus (MSSA) Laterality: right Lung location: lower lobe of lung Qualified Code(s): J15.211 - Pneumonia due to Methicillin susceptible Staphylococcus aureus (5) H/O mitral valve replacement with mechanical valve Priority: Secondary Status: Chronic (6) Pneumonia Priority: Secondary Status: Chronic Qualifiers: Pneumonia type: due to unspecified organism Laterality: right Lung location: lower lobe of lung Qualified Code(s): J18.1 - Lobar pneumonia, unspecified organism (7) Hypertension Priority: Secondary Status: Chronic Qualifiers: Hypertension type: essential hypertension Qualified Code(s): I10 - Essential (primary) hypertension (8) Diastolic CHF Priority: Secondary Status: Chronic Qualifiers: Congestive heart failure chronicity: chronic Qualified Code(s): I50.32 - Chronic diastolic (congestive) heart failure - Discharge Medications Prescriptions: Ipratropium Neb [Atrovent Neb] 0.5 mg IH [id number] #120 inh Levalbuterol Neb [Xopenex Neb] 0.63 mg IH [id number] #120 inh Amiodarone [Cordarone] 200 mg PO DAILY #30 tab Digoxin [Lanoxin] 0.125 mg PO DAILY #30 tab Diltiazem CD (24hr) [Cardizem CD] 360 mg PO DAILY #60 tab Enoxaparin [Lovenox] 60 mg SQ BID #6 mg Furosemide [Lasix] 40 mg PO BID #60 tablet GuaiFENesin ER [Mucinex] 1,200 mg PO BID #20 tab LORazepam [Ativan] 0.5 mg PO TID PRN #20 tab PRN Reason: Anxiety Magnesium Oxide [Mag-Ox] 400 mg PO BID #60 tab Potassium Chloride [K-Tab ER] 20 meq PO DAILY #30 tab predniSONE [PredniSONE] 10 mg PO DAILY #75 tablet Sotalol [Betapace] 80 mg PO Q12H #60 tab Warfarin [Coumadin] 3 mg PO DAILY #15 tab Home Medications: Albuterol Sulfate [Albuterol Inhaler] 1 - 2 puff IH Q4HR PRN 11/24/15 [History] Allopurinol [Zyloprim 100 MG] 100 mg PO DAILY 11/24/15 [History] Budesonide/Formoterol 160/4.5 [Symbicort 160/4.5] 2 puff IH BIDR 11/24/15 [ History] Calcium Carbonate [Calcium] 500 mg PO BID 11/24/15 [History] Cholecalciferol (D-3) [Vitamin D] 2,000 unit PO DAILY 11/24/15 [History] Fluticasone Propionate Nasal [Flonase] 1 spray NS DAILY 11/24/15 [History] Gabapentin [Neurontin] 200 mg PO HS 11/24/15 [History] Loratadine [Claritin] 10 mg PO DAILY 11/24/15 [History] Montelukast [Singulair] 10 mg PO DAILY 11/24/15 [History] Nitroglycerin [Nitrostat] 0.4 mg SL Q5M PRN 11/24/15 [History] Nortriptyline [Pamelor] 10 mg PO HS 11/24/15 [History] Roflumilast [Daliresp] 500 mcg PO DAILY 11/24/15 [History] Vitamin B Complex [B Complex] 1 tab PO DAILY 11/24/15 [History] Umeclidinium [place] [Incruse Ellipta] 1 puff IH DAILY 12/17/15 [History] Atorvastatin [Lipitor] 10 mg PO HS 01/01/16 [History] Albuterol Neb [Proventil Neb] 2.5 mg IH Q4HR PRN 08/25/16 [History] Bifidobacterium Infantis [Align] 4 mg PO DAILY 08/25/16 [History] Oxygen 2 l IN CONT #1 each 08/26/16 [Rx] Esomeprazole Magnesium [Nexium] 40 mg PO DAILY #30 capsule. 10/03/16 [Rx] Acetylcysteine 10% 2 ml IH Q8H #90 inhsol 03/02/17 [Rx] Folic Acid 1 mg PO DAILY #30 tablet 03/02/17 [Rx] HYDROcodone/Acet 5/325 mg [[place] 5-325 mg] 1 tab PO Q4HR PRN #14 tab 03/02/17 [ Rx] Sennosides/Docusate Sodium [Senna Plus] 2 each PO BID #90 tab 03/02/17 [Rx] predniSONE [PredniSONE] See Taper PO AD 03/06/17 [History] Acetaminophen [Tylenol] 650 mg PO Q6HR PRN tab 03/22/17 [Rx] Amiodarone [Cordarone] 200 mg PO DAILY #30 tab 03/22/17 [Rx] Digoxin [Lanoxin] 0.125 mg PO DAILY #30 tab 03/22/17 [Rx] Diltiazem CD (24hr) [Cardizem CD] 360 mg PO DAILY #60 tab 03/22/17 [Rx] Enoxaparin [Lovenox] 60 mg SQ BID #6 mg 03/22/17 [Rx] Furosemide [Lasix] 40 mg PO BID #60 tablet 03/22/17 [Rx] GuaiFENesin ER [Mucinex] 1,200 mg PO BID #20 tab 03/22/17 [Rx] Ipratropium Neb [Atrovent Neb] 0.5 mg IH [id number] #120 inh 03/22/17 [Rx] LORazepam [Ativan] 0.5 mg PO TID PRN #20 tab 03/22/17 [Rx] Levalbuterol Neb [Xopenex Neb] 0.63 mg IH [id number] #120 inh 03/22/17 [Rx] Magnesium Oxide [Mag-Ox] 400 mg PO BID #60 tab 03/22/17 [Rx] Potassium Chloride [K-Tab ER] 20 meq PO DAILY #30 tab 03/22/17 [Rx] Sotalol [Betapace] 80 mg PO Q12H #60 tab 03/22/17 [Rx] Warfarin [Coumadin] 3 mg PO DAILY #15 tab 03/22/17 [Rx] predniSONE [PredniSONE] 10 mg PO DAILY #75 tablet 03/22/17 [Rx] Allergies/Adverse Reactions: 3 Allergy/AdvReac Type Severity Reaction Status Date / Time ceftriaxone Allergy Hives Verified 02/18/17 16:28 ciprofloxacin Allergy Hives Verified 02/18/17 16:28 levofloxacin Allergy Hives Verified 02/18/17 16:28 vancomycin Allergy Rash Verified 02/18/17 16:28 Date of admission: 03/06/17 18:29 Primary care physician: Christoph Hughes Consults: 03/06/17 21:30 Consult to Pulmonology [CONS] Routine Consulting Provider: [facility] Reason for Consult: Patient has SOB related to current acute exacerbation of COPD as well as new diagnosis of lung cancer. Patient is experiencing cough and excessive sputum production as well. Patient has hx of CHF and COPD and reports using O2 at home @ 5L. Call Completed: Yes 03/09/17 11:08 Consult to Oncology [CONS] Routine Consulting Provider: [facility] Reason for Consult: Adenocarcinoma of the lung Call Completed: Yes 03/10/17 14:03 Consult to Palliative Care [CONS] Routine Comment: Consulting Provider: [facility] [place] Reason for Consult: discussion of palliative care services Time Notified: 14:06 Call Completed: Yes Discharging clinician: Crista Rea Anticipated date of discharge: 03/22/17 - Patient Status Disposition: Home Health Service Condition: Fair Overall status at discharge: patient is progressing back to baseline - Discharge Instructions Follow Up With: Manuel Andrade, VANESSA [Advanced Practice Nurse] - 03/23/17 1:00 pm Christoph Hughes DO [Primary Care Provider] - 03/29/17 10:15 am () - Diet and Activity Activity: increase activity as tolerated Diet: advance to your usual diet, diabetic diet, low fat, low cholesterol, low salt diet, other Hospital course: Ms. Yasmeen Dewitt is a 71-year-old female who is admitted for CHF COPD exacerbation and pneumonia and uncontrolled atrial fibrillation. She has history of MVR and she is on Coumadin. INR is supple therapeutic. She has been started on Lovenox 60 mg daily while Coumadin 3 mg daily will be given and once INR is above 2.5 Lovenox can be stopped. She will follow up in Coumadin clinic. She has history of A. fib and Rate is controlled after cardiology started on sotalol 80 twice a day Cardizem CD 360 daily and digoxin 0.125 daily.. Patient is diuresed very well and she has lost -11.5 L during this admission. She has history of CKD but after diuresis her creatinine has become normal . She has already completed her antibiotic for pneumonia and will be continued on nebulizers and oral steroids along with Mucinex at home. Her PT/ INR and potassium need to be checked every day until it becomes is stable. I have advised her to use incentive spirometry and asked nurse to arrange for chest PT. Patient has lung cancer and planned to be started on chemotherapy when couple of weeks. Follow with her family doctor. - Time Spent with Patient Total time spent providing and/or coordinating discharge services: Greater than 30 minutes - Constitutional Vitals: Temp Pulse Resp BP Pulse Ox 98.0 F 100 20 109/62 95 03/22/17 15:32 03/22/17 15:32 03/22/17 15:32 03/22/17 15:32 03/22/17 15:32 General appearance: Present: cooperative, A&O X 3, pleasant, no acute distress, obese, answers questions appropriately - Head Head exam: Present: atraumatic, normocephalic - Eye Eye exam: Present: PERRL, conjuntiva pink, sclera anicteric Pupils: Present: PERRL - Neck Neck exam general surgery: Present: supple, trachea midline. Absent: lymphadenopathy - Respiratory Respiratory exam: Present: rhonchi, wheezes. Absent: accessory muscle use, rales Additional comments: Breath sounds have improved bilateral scattered wheezing and rhonchi - Cardiovascular Cardiovascular exam: Present: RRR, +S1, +S2. Absent: diastolic murmur, gallop, rubs, systolic murmur - GI/Abdominal GI/Abdominal exam: Present: normal bowel sounds, soft, no peritoneal signs. Absent: distended, tenderness - Extremities Exam Extremities exam: Present: pedal edema, warm, radial pulses palpable and symmetrical. Absent: calf tenderness, cyanotic - Neurological Exam Neurological exam: Present: CN II-XII intact, oriented X3, no focal deficits. Absent: pronater drift, facial droop, speech deficit - Skin Skin exam: Present: dry, intact - VTE Documentation of Mechanical Device: Graduated compression elastic hosiery
--- NOTE | 2017-03-22 17:59 | Physician Discharge Referral ---
Home Health/Hosp Referral Info Transfer to: Home Health Attending Provider: angelica Provider in Charge Post Discharge: PCP - Diagnosis (1) Acute and chronic respiratory failure Status: Chronic (2) COPD exacerbation Status: Acute (3) Rapid atrial fibrillation Status: Acute (4) Pneumonia Status: Acute (5) H/O mitral valve replacement with mechanical valve Status: Chronic (6) Pneumonia Status: Chronic (7) Hypertension Status: Chronic (8) Diastolic CHF Status: Chronic - Respiratory Orders Oxygen / L per min Smoking Cessation: Smoking cessation has been advised. For more information, call the [place] Tobacco Quit Line at 0-681-OPFE-NOW. - Services Needed Following services are medically necessary services: Nursing, Home Health Aide, Physical Therapy, Occupational Therapy, Med Social Work Home Care Orders: Please to have daily PT/INR and BMP forwarded to primary care physician and Coumadin clinic to adjust patient potassium intake and Coumadin dose. Her INR must be at least 2.5 as she has a prosthetic mitral valve and I have restarted on Lovenox 60 twice daily which can be discontinued once INR is above 2.5. Patient is planned to start chemotherapy from March 31. - Transfer Medications Prescriptions: Ipratropium Neb [Atrovent Neb] 0.5 mg IH [id number] #120 inh Levalbuterol Neb [Xopenex Neb] 0.63 mg IH [id number] #120 inh Amiodarone [Cordarone] 200 mg PO DAILY #30 tab Digoxin [Lanoxin] 0.125 mg PO DAILY #30 tab Diltiazem CD (24hr) [Cardizem CD] 360 mg PO DAILY #60 tab Enoxaparin [Lovenox] 60 mg SQ BID #6 mg Furosemide [Lasix] 40 mg PO BID #60 tablet GuaiFENesin ER [Mucinex] 1,200 mg PO BID #20 tab LORazepam [Ativan] 0.5 mg PO TID PRN #20 tab PRN Reason: Anxiety Magnesium Oxide [Mag-Ox] 400 mg PO BID #60 tab Potassium Chloride [K-Tab ER] 20 meq PO DAILY #30 tab predniSONE [PredniSONE] 10 mg PO DAILY #75 tablet Sotalol [Betapace] 80 mg PO Q12H #60 tab Warfarin [Coumadin] 3 mg PO DAILY #15 tab Home Medications: Albuterol Sulfate [Albuterol Inhaler] 1 - 2 puff IH Q4HR PRN 11/24/15 [History] Allopurinol [Zyloprim 100 MG] 100 mg PO DAILY 11/24/15 [History] Budesonide/Formoterol 160/4.5 [Symbicort 160/4.5] 2 puff IH BIDR 11/24/15 [ History] Calcium Carbonate [Calcium] 500 mg PO BID 11/24/15 [History] Cholecalciferol (D-3) [Vitamin D] 2,000 unit PO DAILY 11/24/15 [History] Fluticasone Propionate Nasal [Flonase] 1 spray NS DAILY 11/24/15 [History] Gabapentin [Neurontin] 200 mg PO HS 11/24/15 [History] Loratadine [Claritin] 10 mg PO DAILY 11/24/15 [History] Montelukast [Singulair] 10 mg PO DAILY 11/24/15 [History] Nitroglycerin [Nitrostat] 0.4 mg SL Q5M PRN 11/24/15 [History] Nortriptyline [Pamelor] 10 mg PO HS 11/24/15 [History] Roflumilast [Daliresp] 500 mcg PO DAILY 11/24/15 [History] Vitamin B Complex [B Complex] 1 tab PO DAILY 11/24/15 [History] Umeclidinium [place] [Incruse Ellipta] 1 puff IH DAILY 12/17/15 [History] Atorvastatin [Lipitor] 10 mg PO HS 01/01/16 [History] Albuterol Neb [Proventil Neb] 2.5 mg IH Q4HR PRN 08/25/16 [History] Bifidobacterium Infantis [Align] 4 mg PO DAILY 08/25/16 [History] Oxygen 2 l IN CONT #1 each 08/26/16 [Rx] Esomeprazole Magnesium [Nexium] 40 mg PO DAILY #30 capsule. 10/03/16 [Rx] Acetylcysteine 10% 2 ml IH Q8H #90 inhsol 03/02/17 [Rx] Folic Acid 1 mg PO DAILY #30 tablet 03/02/17 [Rx] HYDROcodone/Acet 5/325 mg [[place] 5-325 mg] 1 tab PO Q4HR PRN #14 tab 03/02/17 [ Rx] Sennosides/Docusate Sodium [Senna Plus] 2 each PO BID #90 tab 03/02/17 [Rx] predniSONE [PredniSONE] See Taper PO AD 03/06/17 [History] Acetaminophen [Tylenol] 650 mg PO Q6HR PRN tab 03/22/17 [Rx] Amiodarone [Cordarone] 200 mg PO DAILY #30 tab 03/22/17 [Rx] Digoxin [Lanoxin] 0.125 mg PO DAILY #30 tab 03/22/17 [Rx] Diltiazem CD (24hr) [Cardizem CD] 360 mg PO DAILY #60 tab 03/22/17 [Rx] Enoxaparin [Lovenox] 60 mg SQ BID #6 mg 03/22/17 [Rx] Furosemide [Lasix] 40 mg PO BID #60 tablet 03/22/17 [Rx] GuaiFENesin ER [Mucinex] 1,200 mg PO BID #20 tab 03/22/17 [Rx] Ipratropium Neb [Atrovent Neb] 0.5 mg IH [id number] #120 inh 03/22/17 [Rx] LORazepam [Ativan] 0.5 mg PO TID PRN #20 tab 03/22/17 [Rx] Levalbuterol Neb [Xopenex Neb] 0.63 mg IH [id number] #120 inh 03/22/17 [Rx] Magnesium Oxide [Mag-Ox] 400 mg PO BID #60 tab 03/22/17 [Rx] Potassium Chloride [K-Tab ER] 20 meq PO DAILY #30 tab 03/22/17 [Rx] Sotalol [Betapace] 80 mg PO Q12H #60 tab 03/22/17 [Rx] Warfarin [Coumadin] 3 mg PO DAILY #15 tab 03/22/17 [Rx] predniSONE [PredniSONE] 10 mg PO DAILY #75 tablet 03/22/17 [Rx] Allergies/Adverse Reactions: 3 Allergy/AdvReac Type Severity Reaction Status Date / Time ceftriaxone Allergy Hives Verified 02/18/17 16:28 ciprofloxacin Allergy Hives Verified 02/18/17 16:28 levofloxacin Allergy Hives Verified 02/18/17 16:28 vancomycin Allergy Rash Verified 02/18/17 16:28 Certification: Further, I certify that my clinical findings support that this patient is homebound (i.e. absences from home require considerable and taxing effort and are for medical reasons or jainism services or infrequently or short duration when for other reasons) because: Homebound Reason: Patient requires assistance of a person or device to safely leave home, Leaving home requires considerable and taxing effort due to condition Attestation: My signature below is to certify that this patient is under my care and that I, or nurse practitioner, or a physician's respiratory equipment assistant working with me, has a face-to -face encounter with this patient.
[2017-03-22] MEDS ORDERED: *HR* Warfarin 5 MG TABLET PO ONE (18:00)
[2017-03-22] MEDS ORDERED: *HR* Enoxaparin 30 MG/0.3 ML SYRINGE SQ ONE (18:13)
[2017-03-22] MEDS ORDERED: *HR* Enoxaparin 80 MG/0.8 ML SYRINGE SQ ONE (18:30)
== END 2017-03-22 20:25 | disposition home health service (06) | DRG 291 ==
LOC: EMEROO 13:47 → 3ANU 13:47 → 2NENU 16:32 → SUATTDRO 18:29 → 2NNU 03-09 11:48
PROVIDERS: ADMIT Nurse Practitioner Acute Care; ATTEND Internal Medicine

== ENCOUNTER 2017-03-25 14:53 | Inpatient (IN) ==
--- NOTE | 2017-03-25 16:54 | Emergency Department Note ---
Disposition Clinical Impression: Sepsis, Elevated troponin, Abnormal EKG, Frail elderly, Malignancy, Leukocytosis, History of Coumadin therapy, Nosebleed, History of heart valve replacement, CAD (coronary artery disease) Disposition: Admitted As Inpatient Condition: Good Referrals: Christoph Hughes DO [Primary Care Provider] - Forms: ED Satisfaction Letter General Adult HPI - General Chief complaint: ED Epistaxis Stated complaint: Nose bleed elevated INR Time Seen by Provider: 03/25/17 16:52 Source: patient Limitations: no limitations - History of Present Illness HPI Narrative: 71-year-old female reports emergency department with complaints of nasal bleeding. She is on Coumadin secondary to her cardiac valve replacement. The patient has a history of atrial fibrillation was recently admitted to the hospital. She had nasal bleeding and went to the anticoagulation clinic where the INR is noted be 5.1. They felt she was stable sent her home, she had persistent nasal bleeding should she came to the ED. The nasal bleeding has spontaneously abated. There is no history of trauma. The patient denies any chest pain but has had a cough. She has had no syncope. No leg swelling or pain or bleeding from any other source. No abdominal pain vomiting or diarrhea. There is no history of headache or confusion. No difficulty moving the arms or legs independently. The patient has been generally weak. 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 There is been no fever. She is been taking Cardizem as well as amiodarone for her chronic atrial fibrillation. Since family members our nurses, one of them walks here. Pain Scale: 6 - Related Data Home Medications Medication Instructions Recorded Confirmed Albuterol Sulfate [Albuterol 1 - 2 puff IH Q4HR PRN 11/24/15 03/06/17 Inhaler] Allopurinol [Zyloprim 100 MG] 100 mg PO DAILY 11/24/15 03/06/17 Budesonide/Formoterol 160/4.5 2 puff IH BIDR 11/24/15 03/06/17 [Symbicort 160/4.5] Calcium Carbonate [Calcium] 500 mg PO BID 11/24/15 03/06/17 Cholecalciferol (D-3) [Vitamin D] 2,000 unit PO DAILY 11/24/15 03/06/17 Fluticasone Propionate Nasal 1 spray NS DAILY 11/24/15 03/06/17 [Flonase] Gabapentin [Neurontin] 200 mg PO HS 11/24/15 03/06/17 Loratadine [Claritin] 10 mg PO DAILY 11/24/15 03/06/17 Montelukast [Singulair] 10 mg PO DAILY 11/24/15 03/06/17 Nitroglycerin [Nitrostat] 0.4 mg SL Q5M PRN 11/24/15 03/06/17 Nortriptyline [Pamelor] 10 mg PO HS 11/24/15 03/06/17 Roflumilast [Daliresp] 500 mcg PO DAILY 11/24/15 03/06/17 Vitamin B Complex [B Complex] 1 tab PO DAILY 11/24/15 03/06/17 Umeclidinium [place] [Incruse 1 puff IH DAILY 12/17/15 03/06/17 Ellipta] Atorvastatin [Lipitor] 10 mg PO HS 01/01/16 03/06/17 Albuterol Neb [Proventil Neb] 2.5 mg IH Q4HR PRN 08/25/16 03/06/17 Bifidobacterium Infantis [Align] 4 mg PO DAILY 08/25/16 03/06/17 predniSONE [PredniSONE] See Taper PO AD 03/06/17 03/06/17 Previous Rx's Medication Instructions Recorded Oxygen 2 l IN CONT #1 each 08/26/16 Esomeprazole Magnesium [Nexium] 40 mg PO DAILY #30 capsule. 10/03/16 Acetylcysteine 10% 2 ml IH Q8H #90 inhsol 03/02/17 Folic Acid 1 mg PO DAILY #30 tablet 03/02/17 HYDROcodone/Acet 5/325 mg [[place] 1 tab PO Q4HR PRN #14 tab 03/02/17 5-325 mg] Sennosides/Docusate Sodium [Senna 2 each PO BID #90 tab 03/02/17 Plus] Acetaminophen [Tylenol] 650 mg PO Q6HR PRN tab 03/22/17 Amiodarone [Cordarone] 200 mg PO DAILY #30 tab 03/22/17 Digoxin [Lanoxin] 0.125 mg PO DAILY #30 tab 03/22/17 Diltiazem CD (24hr) [Cardizem CD] 360 mg PO DAILY #60 tab 03/22/17 Enoxaparin [Lovenox] 60 mg SQ BID #6 mg 03/22/17 Furosemide [Lasix] 40 mg PO BID #60 tablet 03/22/17 GuaiFENesin ER [Mucinex] 1,200 mg PO BID #20 tab 03/22/17 Ipratropium Neb [Atrovent Neb] 0.5 mg IH [id number] #120 inh 03/22/17 LORazepam [Ativan] 0.5 mg PO TID PRN #20 tab 03/22/17 Levalbuterol Neb [Xopenex Neb] 0.63 mg IH [id number] #120 inh 03/22/17 Magnesium Oxide [Mag-Ox] 400 mg PO BID #60 tab 03/22/17 Potassium Chloride [K-Tab ER] 20 meq PO DAILY #30 tab 03/22/17 Sotalol [Betapace] 80 mg PO Q12H #60 tab 03/22/17 Warfarin [Coumadin] 3 mg PO DAILY #15 tab 03/22/17 predniSONE [PredniSONE] 10 mg PO DAILY #75 tablet 03/22/17 Allergies Allergy/AdvReac Type Severity Reaction Status Date / Time ceftriaxone Allergy Hives Verified 03/25/17 15:16 ciprofloxacin Allergy Hives Verified 03/25/17 15:16 levofloxacin Allergy Hives Verified 03/25/17 15:16 vancomycin Allergy Rash Verified 03/25/17 15:16 All systems ED: reviewed and negative except as stated. Past Medical History - Past Medical History Medical history: Reports: arthritis, atrial fibrillation, cancer, cardiomyopathy , CHF, COPD, fibromyalgia, hypertension, myocardial infarction, osteoporosis, RA , other Surgical history: Reports: angioplasty/stent, cholecystectomy, coronary bypass ( CABG), heart valve replacement (Mitral valve), orthopedic, other Psychiatric history: Reports: no psych history - Social History Smoking Status: Former smoker Smokeless Tobacco Status: No Alcohol use: Reports: none Drug use: Reports: none Physical Exam - General Limitations: no limitations General appearance: alert, in no apparent distress - Head Head exam: atraumatic, normocephalic, normal inspection - Eye Eye exam: Present: normal appearance, PERRL, EOMI - ENT ENT exam: normal exam, normal oropharynx, mucous membranes moist, TM's normal bilaterally, normal external ear exam, other (Nares patent with crusted blood no active bleeding) - Neck Neck exam: Present: normal inspection, full ROM, trachea midline. Absent: tenderness - Chest Chest inspection: Present: symmetric chest wall rise. Absent: tenderness - Respiratory Respiratory exam: Present: prolonged expiratory phase, other (Coarse Rales right side) - Cardiovascular Cardiovascular exam: Present: regular rate - Abdominal Exam Abdominal exam: Present: soft, Non-Tender, normal bowel sounds. Absent: tenderness, distention, guarding, rebound, rigidity, Shahid's sign, Rovsing's sign, tenderness at McBurney's Point, pulsatile mass - Extremities Exam Extremities exam: Present: normal inspection, full ROM, pedal edema. Absent: tenderness, normal capillary refill, joint swelling, calf tenderness - Expanded Lower Extremity Exam Lower leg exam: Absent: Homans' sign - Back Exam Back exam: Present: normal inspection, full ROM. Absent: tenderness, CVA tenderness (R), CVA tenderness (L), vertebral tenderness - Neurological Exam Neurological exam: Present: alert, oriented X3, CN II-XII intact. Absent: motor sensory deficit - Psychiatric Psychiatric exam: Present: normal affect, normal mood - Skin Skin exam: Present: warm, dry, intact, normal color. Absent: rash, cyanosis, diaphoresis, erythema, pallor, mottled Course Vital Signs Temperature 97.8 F 03/25/17 15:11 Pulse Rate 103 03/25/17 15:11 Respiratory Rate 20 03/25/17 15:11 Blood Pressure 127/62 03/25/17 15:11 O2 Sat by Pulse Oximetry 97 03/25/17 15:11 Temperature 97.8 F 03/25/17 15:11 Pulse Rate 91 03/25/17 18:42 Respiratory Rate 16 03/25/17 18:42 Blood Pressure 141/79 03/25/17 18:42 O2 Sat by Pulse Oximetry 98 03/25/17 18:42 Oxygen Delivery Oxygen Delivery Room Air Medical Decision Making - [facility] Narrative Medical decision making narrative: Patient has coarse rales on the right chest, she has postobstructive pneumonia markedly leukocytosis a notably elevated troponin and abnormal EKG with ST depressions anterior and laterally which appear to be worse than previous. The patient is not describing chest pain or acute shortness of breath she has a history of CHF and multiple comorbidities including malignancy. The patient's INR is elevated, she demonstrates no active bleeding at this time. She has a history of cardiac valve replacement. Based on the patient's age, rales, pneumonia, abnormal EKG, notably elevated troponin, malignancy and COPD, with Coumadin therapy and leading, I thought it be appropriate to admit the patient hospital. She has multiple significant allergies to antibiotics. A lactic acid level is pending. She Disse saturation has been ordered secondary to the patient's known CHF. Zosyn was ordered as initial antibiotic after review with the hospitalist who has accepted the patient to their care. The patient is currently stable pending admission for further evaluation. She does meet sepsis criteria based on elevated white count, tachycardia, tachypnea, and apparent pneumonitis. NSTEMI is in the differential. The lactic acid is pending and fluids will be managed per the hospitalist. Aspirin was ordered. - Lab Data Lab results reviewed: Yes I reviewed the patient's lab results. Result diagrams: 03/25/17 17:11 03/25/17 17:11 Lab Results 03/25/17 03/25/17 03/25/17 Range/Units 17:11 17:11 17:11 WBC 30.2 H* D (4.3-11.1) K/mcL RBC 4.22 (3.82-4.97) M/mcL Hgb 10.8 L (11.5-15.4) g/dL Hct 34.8 L (35.3-44.9) % MCV 82.5 L (83.0-100.0) fL MCH 25.6 L (28.0-33.3) pg MCHC 31.0 L (31.6-35.5) g/dL RDW 17.0 H (11.5-14.5) % Plt Count 196 (140-400) K/mcL MPV 11.8 (9.4-12.4) fL PT 54.5 H* D (9.4-12.1) Seconds INR 4.9 H* D APTT 54.0 H (26.0-36.0) Seconds Sodium 137 (136-145) mEq/L Potassium 3.1 L (3.5-4.5) mEq/L Chloride 90 L (98-109) mEq/L Carbon Dioxide 35 H (19-29) mEq/L BUN 51 H (7-20) mg/dL Creatinine 0.83 (0.57-1.11) mg/dL Est GFR ( Amer) > 60 (> 60) Est GFR (Non-Af Amer) > 60 (> 60) BUN/Creatinine Ratio 61 H (6-26) Glucose 163 H (70-99) mg/dL Calculated Osmolality 301 H (280-300) Calcium 9.0 (8.6-10.8) mg/dL Total Bilirubin 0.6 (0.2-1.2) mg/dL Direct Bilirubin 0.3 (0.0-0.5) mg/dL Indirect Bilirubin 0.3 (0.0-1.2) mg/dL AST 35 H (5-34) Units/L ALT 36 (0-55) Units/L Alkaline Phosphatase 223 H (38-126) Units/L Troponin I (0-0.03) ng/mL B-Natriuretic Peptide (0-100) pg/mL Serum Total Protein 5.7 L (6.0-8.3) g/dL Albumin 2.8 L (3.5-5.0) g/dL Globulin 2.9 (2.4-3.5) g/dL Albumin/Globulin Ratio 1.0 L (1.1-2.2) Digoxin 1.4 (0.8-2.0) ng/mL 03/25/17 03/25/17 Range/Units 17:11 17:11 WBC (4.3-11.1) K/mcL RBC (3.82-4.97) M/mcL Hgb (11.5-15.4) g/dL Hct (35.3-44.9) % MCV (83.0-100.0) fL MCH (28.0-33.3) pg MCHC (31.6-35.5) g/dL RDW (11.5-14.5) % Plt Count (140-400) K/mcL MPV (9.4-12.4) fL PT (9.4-12.1) Seconds INR APTT (26.0-36.0) Seconds Sodium (136-145) mEq/L Potassium (3.5-4.5) mEq/L Chloride (98-109) mEq/L Carbon Dioxide (19-29) mEq/L BUN (7-20) mg/dL Creatinine (0.57-1.11) mg/dL Est GFR ( Amer) (> 60) Est GFR (Non-Af Amer) (> 60) BUN/Creatinine Ratio (6-26) Glucose (70-99) mg/dL Calculated Osmolality (280-300) Calcium (8.6-10.8) mg/dL Total Bilirubin (0.2-1.2) mg/dL Direct Bilirubin (0.0-0.5) mg/dL Indirect Bilirubin (0.0-1.2) mg/dL AST (5-34) Units/L ALT (0-55) Units/L Alkaline Phosphatase (38-126) Units/L Troponin I 0.27 H* (0-0.03) ng/mL B-Natriuretic Peptide 132 H (0-100) pg/mL Serum Total Protein (6.0-8.3) g/dL Albumin (3.5-5.0) g/dL Globulin (2.4-3.5) g/dL Albumin/Globulin Ratio (1.1-2.2) Digoxin (0.8-2.0) ng/mL - Radiology Data Radiology results reviewed: Yes I reviewed the patient's radiology results. Critical Care Time Critical Care Time: Yes Total Critical Care Time: 31 Attestation: 10 minutes initial evaluation 10 minutes completing the medical record 5 minutes reevaluation 6 minutes arranging for admission discussing with the hospitalist.
[2017-03-25 17:21] LABS: Hemoglobin 10.8 g/dL (11.5-15.4)
[2017-03-25 17:22] LABS: Hematocrit 34.8 % (35.3-44.9); Mean Corpuscular Hemoglobin 25.6 pg (28.0-33.3); Mean Corpuscular Volume 82.5 fL (83.0-100.0); Mean Platelet Volume 11.8 fL (9.4-12.4); Platelet Count 196 K/mcL (140-400); Red Blood Count 4.22 M/mcL (3.82-4.97)
[2017-03-25 17:35] LABS: Alanine Aminotransferase 36 Units/L (0-55); Albumin 2.8 g/dL (3.5-5.0); Alkaline Phosphatase 223 Units/L (38-126); Aspartate Amino Transferase 35 Units/L (5-34); BUN/Creatinine Ratio 61 (6-26); Bilirubin,Direct 0.3 mg/dL (0.0-0.5); Bilirubin,Indirect 0.3 mg/dL (0.0-1.2); Bilirubin,Total 0.6 mg/dL (0.2-1.2); Blood Urea Nitrogen 51 mg/dL (7-20); Carbon Dioxide 35 mEq/L (19-29); Chloride 90 mEq/L (98-109); Globulin 2.9 g/dL (2.4-3.5); Glucose 163 mg/dL (70-99); Osmolality,Calculated 301 (280-300); Potassium 3.1 mEq/L (3.5-4.5); Sodium 137 mEq/L (136-145); Total Protein 5.7 g/dL (6.0-8.3); eGFR For African Americans > 60 (> 60); eGFR For Non-African Americans > 60 (> 60)
[2017-03-25 17:40] LABS: INR 4.9; Prothrombin Time 54.5 Seconds (9.4-12.1)
[2017-03-25 18:43] LABS: Digoxin 1.4 ng/mL (0.8-2.0)
[2017-03-25] MEDS ORDERED: Aspirin 325 MG TABLET PO ONE (18:53)
[2017-03-25] MEDS ORDERED: Piperacillin/Tazobactam 3.375 GM in D5% in Water (Mini-Bag+) 100 ML IVPB ONE (19:28)
[2017-03-25] MEDS ORDERED: 0.9 % Sodium Chloride 1,000 ML IVC SCH (19:45)
[2017-03-25] MEDS ORDERED: Levalbuterol Neb 0.63 MG/3 ML IH ONE ×2 (21:31→21:35)
[2017-03-25] MEDS ORDERED: Naloxone 0.4 MG/ML INJ IVP PRN (22:33)
[2017-03-25] MEDS ORDERED: Acetaminophen 325 MG TABLET PO PRN (22:33)
--- NOTE | 2017-03-25 22:42 | Internal Med History&Physical ---
Date of Encounter: 03/25/17 Time of Encounter: 22:39 Assessment and Plan (1) Supratherapeutic INR Current visit: Yes Status: Acute Hold tonight's dose of coumadin Patient's epistaxis has stopped spontaneously and she has bleeding around her right chest wall port entry point Type and screen We will give vitamin K. 5 mg stat Rpt Heme STAT INR goal for patient with mechanical MV is 2.5-3.5 (2) Elevated troponin Current visit: Yes Status: Acute Patient did not present with chest pain, she denies any current cardiac symptoms. She has known CAD Her INR is 4.9 with epistaxis Continue to trend troponin Continue ASA/Statin ECHO from 09/2016 noted (3) History of heart valve replacement Current visit: Yes Status: Chronic Mgt as in INR (4) Leukocytosis Current visit: Yes Status: Acute Etiology at this time likely from steroids vs acute reaction to bleeding Rpt Hb now Continue to monitor Qualifiers: Leukocytosis type: unspecified Qualified Code(s): D72.829 - Elevated white blood cell count, unspecified (5) CAD (coronary artery disease) Current visit: Yes Status: Chronic Chronic, as in elevated troponin Qualifiers: Coronary Disease-Associated Artery/Lesion type: enterprise artery [place] vs. transplanted heart: enterprise heart Associated angina: without angina Qualified Code(s): I25.10 - Atherosclerotic heart disease of enterprise coronary artery without angina pectoris (6) Lung cancer Current visit: Yes Status: Chronic Patient is supposed to start chemotherapy next week. Her daughters and the patient herself requested to have an oncology review inpatient Oncology consult placed. Qualifiers: Laterality: right Lung location: unspecified part of lung Qualified Code( s): C34.91 - Malignant neoplasm of unspecified part of right bronchus or lung (7) PAF (paroxysmal atrial fibrillation) Current visit: Yes Status: Chronic rate controlled, continue home meds anticoagulation as in Supratherapeutic INR (8) Pneumonia Current visit: Yes Status: Acute Patient with recently treated for pneumonia patient with no chest symptoms, she denies new cough, worsening sputum production or worsening shortness of breath. Her oxygen requirement has not changed. CXR not changed from prior Obtain sputum culture We will hold off antibiotics for now Patient is at her baseline for O2 requirement Qualifiers: Pneumonia type: due to unspecified organism Laterality: right Lung location: unspecified part of lung Qualified Code(s): J18.9 - Pneumonia, unspecified organism (9) CKD (chronic kidney disease) stage 3, GFR 30-59 ml/min Current visit: Yes Status: Chronic Chronic, stable (10) COPD (chronic obstructive pulmonary disease) Current visit: Yes Status: Chronic Continue home meds Qualifiers: COPD type: unspecified COPD Qualified Code(s): J44.9 - Chronic obstructive pulmonary disease, unspecified (11) Chronic respiratory failure with hypoxia Current visit: Yes Status: Chronic Continue O2 (12) Diastolic CHF Current visit: Yes Status: Chronic DisContinue IV fluids Continue current meds Qualifiers: Congestive heart failure chronicity: chronic Qualified Code(s): I50.32 - Chronic diastolic (congestive) heart failure (13) HLD (hyperlipidemia) Current visit: Yes Status: Chronic Continue Lipitor. Qualifiers: Hyperlipidemia type: unspecified Qualified Code(s): E78.5 - Hyperlipidemia , unspecified (14) Hypertension Current visit: Yes Status: Chronic controlled, continue home meds Qualifiers: Hypertension type: essential hypertension Qualified Code(s): I10 - Essential (primary) hypertension (15) KYLIE (obstructive sleep apnea) Current visit: Yes Status: Chronic CPAP at night Internal Medicine - H&P: HPI Chief complaint: Nose bleed Admitted From: Home Plans for Post Hospital Care: Home History of present illness: Ms. Dewitt is a 71 year old female with extensive medical history including CKD III, diastolic CHF, COPD, atrial fibrillation, mechanical mitral valve, rheumatoid arthritis, right lung cancer with metastasis and anxiety. The patient was recently discharged 3 days ago after about 16 days of hospital stay during which she was treated for pneumonia, COPD exacerbation, and a right lung mass. The patient went to her Coumadin clinic this afternoon and was found to have an INR 5.1. Was recommended that she go to the ER but she went home. On arrival at home she developed epistaxis which was said to have lasted about 30 minutes. Spontaneously resolved. She continues to have blood tinged sputum production whenever she coughs. However, she denies chest pain, she denies new onset of cough, she denies worsening of her baseline shortness of breath, she denies increase in oxygen requirement at home. She reports that she has improved significantly from when she was discharged and she is only in the hospital because she has nosebleeds. Denies nausea vomiting or diarrhea, abdominal pain, or changes in bowel movement. She denies any genitourinary symptoms. On presentation to the ER, she was found to have INR 4.9, epistaxis has resolved spontaneously. White count was 20.2 thousand. Potassium was 3.1. She was also found to have troponin elevation of 0.7. Her EKG changes are chronic. Past Med Surg Social Fam HX - Past Medical History Medical history: arthritis, atrial fibrillation, cancer, cardiomyopathy, CHF, COPD, fibromyalgia, hypertension, myocardial infarction, osteoporosis, RA, other Psychiatric history: no psych history - Past Surgical History Surgical History: angioplasty/stent, cholecystectomy, coronary bypass (CABG), heart valve replacement (Mitral valve), orthopedic, other - Social History Smoking Status: Former smoker Smokeless Tobacco Status: No Alcohol use: none Drug use: none - Family History Father Family Member Ethnicity: Non- Living Status: Hx Family Cardiac Disorders: Yes (MS, HTN, HD) Hx Family Respiratory Disorders: No Hx Family Cancer: Yes (Lung ) Hx Family GI Disorders: No Hx Family Endocrine Disorder: No Hx Family Neuromuscular Disorders: No Hx Family Neurologic Disorders: No Hx Family HEENT Disorders: No Hx Family Autoimmune Disorders: No Brother Family Member Ethnicity: Non- Living Status: Hx Family Cardiac Disorders: Yes (MS) Mother Family Member Ethnicity: Non- Living Status: Hx Family Cardiac Disorders: No Hx Family Respiratory Disorders: Yes (COPD) Hx Family Cancer: Yes (Lung, bone) Hx Family GI Disorders: No Hx Family Endocrine Disorder: No Hx Family Neuromuscular Disorders: No Hx Family Neurologic Disorders: No Hx Family HEENT Disorders: No Hx Family Autoimmune Disorders: No Internal Medicine - H&P: Meds Albuterol Sulfate [Albuterol Inhaler] 1 - 2 puff IH Q4HR PRN 11/24/15 [History] Allopurinol [Zyloprim 100 MG] 100 mg PO DAILY 11/24/15 [History] Budesonide/Formoterol 160/4.5 [Symbicort 160/4.5] 2 puff IH BIDR 11/24/15 [ History] Calcium Carbonate [Calcium] 500 mg PO DAILY 11/24/15 [History] Cholecalciferol (D-3) [Vitamin D] 2,000 unit PO DAILY 11/24/15 [History] Fluticasone Propionate Nasal [Flonase] 1 spray NS DAILY 11/24/15 [History] Gabapentin [Neurontin] 200 mg PO HS 11/24/15 [History] Loratadine [Claritin] 10 mg PO DAILY 11/24/15 [History] Montelukast [Singulair] 10 mg PO DAILY 11/24/15 [History] Nitroglycerin [Nitrostat] 0.4 mg SL Q5M PRN 11/24/15 [History] Nortriptyline [Pamelor] 10 mg PO HS 11/24/15 [History] Roflumilast [Daliresp] 500 mcg PO DAILY 11/24/15 [History] Vitamin B Complex [B Complex] 1 tab PO DAILY 11/24/15 [History] Umeclidinium [place] [Incruse Ellipta] 1 puff IH DAILY 12/17/15 [History] Atorvastatin [Lipitor] 10 mg PO HS 01/01/16 [History] Albuterol Neb [Proventil Neb] 2.5 mg IH Q4HR PRN 08/25/16 [History] Bifidobacterium Infantis [Align] 4 mg PO DAILY 08/25/16 [History] Esomeprazole Magnesium [Nexium] 40 mg PO DAILY #30 capsule. 10/03/16 [Rx] Acetylcysteine 10% 2 ml IH Q8H #90 inhsol 03/02/17 [Rx] Folic Acid 1 mg PO DAILY #30 tablet 03/02/17 [Rx] HYDROcodone/Acet 5/325 mg [[place] 5-325 mg] 1 tab PO Q4HR PRN #14 tab 03/02/17 [ Rx] Amiodarone [Cordarone] 200 mg PO DAILY #30 tab 03/22/17 [Rx] Digoxin [Lanoxin] 0.125 mg PO DAILY #30 tab 03/22/17 [Rx] Diltiazem CD (24hr) [Cardizem CD] 360 mg PO DAILY #60 tab 03/22/17 [Rx] Furosemide [Lasix] 40 mg PO BID #60 tablet 03/22/17 [Rx] GuaiFENesin ER [Mucinex] 1,200 mg PO BID #20 tab 03/22/17 [Rx] Ipratropium Neb [Atrovent Neb] 0.5 mg IH [id number] #120 inh 03/22/17 [Rx] LORazepam [Ativan] 0.5 mg PO TID PRN #20 tab 03/22/17 [Rx] Levalbuterol Neb [Xopenex Neb] 0.63 mg IH [id number] #120 inh 03/22/17 [Rx] Magnesium Oxide [Mag-Ox] 400 mg PO BID #60 tab 03/22/17 [Rx] Potassium Chloride [K-Tab ER] 20 meq PO DAILY #30 tab 03/22/17 [Rx] Sotalol [Betapace] 80 mg PO Q12H #60 tab 03/22/17 [Rx] Acetylcysteine [A-[place]-m-Cysteine] 600 mg PO BID 03/25/17 [History] Oxygen 5 l IN CONT 03/25/17 [History] Sennosides/Docusate Sodium [Senna Plus] 3 each PO BID 03/25/17 [History] Warfarin [Coumadin] 2.5 mg PO WESA 03/25/17 [History] Warfarin [Coumadin] 5 mg PO SUMOTU 03/25/17 [History] predniSONE [PredniSONE] See Taper PO DAILY 03/25/17 [History] 3 Allergy/AdvReac Type Severity Reaction Status Date / Time ceftriaxone Allergy Hives Verified 03/25/17 15:16 ciprofloxacin Allergy Hives Verified 03/25/17 15:16 levofloxacin Allergy Hives Verified 03/25/17 15:16 vancomycin Allergy Rash Verified 03/25/17 15:16 All Systems PM: A 10-system review of systems was performed and is negative for pertinent findings except as documented above in the HPI. - Constitutional Constitutional: no chills, no fever(s), no night sweats - EENT Eyes: no change in vision, no discharge, no pain, no photophobia Nose, mouth and throat: as per HPI, epistaxis - Cardiovascular Cardiovascular ROS IM: no chest pain, no diaphoresis, no dyspnea, no lightheadedness, no palpitations, no syncope - Respiratory Respiratory: as per HPI - Gastrointestinal Gastrointestinal: as per HPI - Genitourinary Genitourinary: as per HPI - Musculoskeletal Musculoskeletal ROS IM: as per HPI - Integumentary Integumentary IM: as per HPI - Neurological Neurological ROS: as per HPI - Hematologic/Lymphatic Hematologic/Lymphatic: as per HPI - Constitutional Vitals: Temp Pulse Resp BP Pulse Ox 97.8 F 96 18 122/79 99 03/25/17 21:25 03/25/17 21:25 03/25/17 21:38 03/25/17 21:25 03/25/17 21:38 General appearance: Present: A&O X 3, pleasant, no acute distress - Head Head exam: Present: atraumatic, normocephalic - Eye Eye exam: Present: PERRL, conjuntiva pink, sclera anicteric Pupils: Present: PERRL - ENT Additional comments: No evidence of nosebleeds on examination. - Respiratory Additional comments: She has a right chest wall port which is bleeding around the entry point. She has right middle and lower lobe rhonchi and wheezing. - Cardiovascular Cardiovascular exam: Present: RRR, +S1, +S2. Absent: diastolic murmur, gallop, rubs, systolic murmur - GI/Abdominal GI/Abdominal exam: Present: normal bowel sounds, soft, no peritoneal signs. Absent: distended, tenderness - Extremities Exam Extremities exam: Present: pedal edema, warm, radial pulses palpable and symmetrical. Absent: calf tenderness, cyanotic - Neurological Exam Neurological exam: Present: alert, CN II-XII intact, oriented X3, no focal deficits. Absent: pronater drift, facial droop, speech deficit - Skin Skin exam: Present: dry Internal Med - H&P Results - Labs CBC & Chem 7: 03/25/17 17:11 03/25/17 17:11
[2017-03-25] MEDS ORDERED: *HR* Phytonadione 5 MG TABLET PO ONE (23:29)
[2017-03-25] MEDS: Furosemide 40 MG TABLET PO SCH (23:33)
[2017-03-26] MEDS: *HR* LORazepam 0.5 MG TABLET PO PRN ×2 (00:51→21:30)
[2017-03-26] MEDS: Ipratropium Neb 0.5 MG NEBULIZER IH SCH ×4 (03:49→22:44)
[2017-03-26 04:46] LABS: Basophils % 0.1 %; Hematocrit 31.8 % (35.3-44.9); Hemoglobin 9.6 g/dL (11.5-15.4); Lymphocytes # 0.8 K/mcL (0.6-4.6); Lymphocytes % 3.7 %; Mean Corpuscular HGB Conc 30.2 g/dL (31.6-35.5); Mean Corpuscular Hemoglobin 24.9 pg (28.0-33.3); Mean Corpuscular Volume 82.6 fL (83.0-100.0); Mean Platelet Volume 11.6 fL (9.4-12.4); Monocytes % 4.9 %; Neutrophils # 17.7 K/mcL (1.6-8.9); Nucleated Red Blood Cells 0.2 /100 WBC (0); Platelet Count 182 K/mcL (140-400); Red Blood Count 3.85 M/mcL (3.82-4.97); Red Cell Distribution Width 17.1 % (11.5-14.5); Segmented Neutrophils % 87.3 %
[2017-03-26 04:52] LABS: INR 4.2
[2017-03-26 04:54] LABS: Activated Partial Thrombo Time 42.9 Seconds (26.0-36.0)
[2017-03-26 04:57] LABS: Prothrombin Time 46.3 Seconds (9.4-12.1)
[2017-03-26 05:01] LABS: BUN/Creatinine Ratio 59 (6-26); Blood Urea Nitrogen 46 mg/dL (7-20); Calcium 8.5 mg/dL (8.6-10.8); Carbon Dioxide 39 mEq/L (19-29); Chloride 92 mEq/L (98-109); Glucose 62 mg/dL (70-99); Magnesium 2.1 mg/dL (1.6-2.6); Osmolality,Calculated 300 (280-300); Potassium 3.1 mEq/L (3.5-4.5); Sodium 140 mEq/L (136-145); eGFR For African Americans > 60 (> 60); eGFR For Non-African Americans > 60 (> 60)
[2017-03-26] MEDS ORDERED: Doxycycline 100 MG in 0.9 % Sodium Chloride Mini Bag 100 ML IVPB SCH (06:00)
[2017-03-26] MEDS: Diltiazem CD (24hr) 180 MG CAPSULE PO SCH (08:49)
[2017-03-26] MEDS: Magnesium Oxide 400 MG TABLET PO SCH ×2 (08:49→21:23)
[2017-03-26] MEDS: Cholecalciferol (D-3) 1,000 UNIT TABLET PO SCH (08:49)
[2017-03-26] MEDS: Vitamin B Complex/Vit C/Vit E 1 EACH TABLET PO SCH (08:49)
[2017-03-26] MEDS: *HR* Amiodarone 200 MG TABLET PO SCH (08:50)
[2017-03-26] MEDS: *HR* Digoxin 0.125 MG TABLET PO SCH (08:50)
[2017-03-26] MEDS: Lactobacillus 1 EACH CAP.SPRINK PO SCH (08:50)
[2017-03-26] MEDS: Furosemide 40 MG TABLET PO SCH ×2 (08:50→17:12)
[2017-03-26] MEDS: Loratadine 10 MG TABLET PO SCH (08:50)
[2017-03-26] MEDS: Fluticasone Propionate Nasal 50 MCG/SPRAY BOTTLE NS SCH (08:51)
[2017-03-26] MEDS: Folic Acid 1 MG TABLET PO SCH (08:52)
[2017-03-26] MEDS ORDERED: *HR* Acetylcysteine 20% 600 MG/3 ML ORAL SYRINGE PO SCH (09:00)
[2017-03-26] MEDS ORDERED: DALIRESP 500 MCG PO SCH (09:00)
[2017-03-26] MEDS ORDERED: Sennosides/Docusate Sodium TABLET PO SCH ×2 (09:00→21:00)
[2017-03-26] MEDS: Budesonide/Formoterol 160/4.5 MDI IH SCH ×2 (11:17→22:44)
--- NOTE | 2017-03-26 11:45 | Cardiology Consult Note ---
<Eve Wolfe - Last Filed: 03/26/17 11:48> Date of Encounter: 03/26/17 Time of Encounter: 09:30 Assessment and Plan (1) Nosebleed Current Visit: Yes Status: Acute Per cardiology: -Admission with acute nosebleed. -Management per primary service. (2) Acute blood loss anemia Current Visit: No Status: Acute Per cardiology: -Hemoglobin on admission 10.8, today 9.6. -Had nosebleed. -Management per primary service. (3) Supratherapeutic INR Current Visit: Yes Status: Acute Per cardiology: -INR 4.9 on admission. -INR today 4.2. -Coumadin currently being dosed by pharmacy while inpatient. -Goal INR 2.5-3.5. (4) Elevated troponin Current Visit: Yes Status: Acute Per cardiology: -Troponin flat and adynamic in the setting of anemia, bleeding, and leukocytosis (WBC 30.2). -Troponins 0.27, 0.23, 0.23. -Deneis chest pain or worsening shortness of breath. Denies worsening fatigue. -ECG with subtle changes in precordial leads. -Will check limited echo. (5) CAD (coronary artery disease) Current Visit: Yes Status: Chronic Per cardiology: -[place]own CAD with CABG x3 [address] [facility]. -2013 negative stress test. -09/2016 [facility] with preserved EF, no wall motion abnormalities. -Denies chest pain. -Subtle ECG changes. -On statin and beta halle. -Will order limited ehco. Qualifiers: Coronary Disease-Associated Artery/Lesion type: [place] artery [place] vs. transplanted heart: [place] heart Associated angina: without angina Qualified Code(s): I25.10 - Atherosclerotic heart disease of [place] coronary artery without angina pectoris (6) H/O mitral valve replacement with mechanical valve Current Visit: Yes Status: Chronic Per cardiology: -history of mechanical mitral valve replacement. -ON coumadin. -Goal INR 2.5-3.5. (7) Lung cancer Current Visit: Yes Status: Chronic Per cardiology: -KNown lung cancer. -Management per primary service. Qualifiers: Laterality: right Lung location: unspecified part of lung Qualified Code( s): C34.91 - Malignant neoplasm of unspecified part of right bronchus or lung (8) PAF (paroxysmal atrial fibrillation) Current Visit: Yes Status: Chronic Per cardiology: -KNown PAF. -ON sotalol, digoxin, cardizem, and amiodarone. -Currently SR. HR controlled. -ON coumadin for anticoagulation. -WIll continue to monitor. Discussion w patient/family: The assessment and plan as outlined above was discussed with the patient who expressed understanding and agreement. All questions were answered. Thank you for involving us in the care of your patient. Please call with any questions. Discussed and reviewed with . History of Present Illness Consult date: 03/25/17 Requesting physician: Emiliano Rodriguze Consult reason: elevated troponin, abnormal ECG Chief complaint: epistaxis History of present illness: Ms. Dewitt is a 71 year old female with a relevant past medical history of COPD, CAD s/p CABG x 3 [facility] 2007, lung CA, atrial fibrillation, mechanical mitral valve, HTN, pulmonary HTN, KYLIE, and CHF. Patient is on coumadin for mechanical mitral valve and atrial fibrillation. Patient had a nose bleed at home and preseneted to [facility]. INR was noted to be 4.9. Troponin was noted to be elevated and cardiology has been consulted. Patient denies any active bleeding today. Patient denies chest pain. Patient admits to chronic shortness of breath , however states it is no worse than usual. Patient admits to fatigue, however states this is no worse than usual either. Past Med Surg Social Fam HX - Past Medical History Attestation: Yes The following information was validated with the patient. Source: patient, old records reviewed Medical history: arthritis, atrial fibrillation, cancer, cardiomyopathy, CHF, COPD, fibromyalgia, hypertension, myocardial infarction, osteoporosis, RA, other Psychiatric history: no psych history - Past Surgical History Surgical History: angioplasty/stent, cholecystectomy, coronary bypass (CABG), heart valve replacement (Mitral valve), orthopedic, other - Social History Smoking Status: Former smoker Smokeless Tobacco Status: No Alcohol use: none Drug use: none - Family History Father Family Member Ethnicity: Non- Living Status: Hx Family Cardiac Disorders: Yes (VA, HTN, HD) Hx Family Respiratory Disorders: No Hx Family Cancer: Yes (Lung ) Hx Family GI Disorders: No Hx Family Endocrine Disorder: No Hx Family Neuromuscular Disorders: No Hx Family Neurologic Disorders: No Hx Family HEENT Disorders: No Hx Family Autoimmune Disorders: No Brother Family Member Ethnicity: Non- Living Status: Hx Family Cardiac Disorders: Yes (VA) Mother Family Member Ethnicity: Non- Living Status: Hx Family Cardiac Disorders: No Hx Family Respiratory Disorders: Yes (COPD) Hx Family Cancer: Yes (Lung, bone) Hx Family GI Disorders: No Hx Family Endocrine Disorder: No Hx Family Neuromuscular Disorders: No Hx Family Neurologic Disorders: No Hx Family HEENT Disorders: No Hx Family Autoimmune Disorders: No Medications and Allergies Albuterol Sulfate [Albuterol Inhaler] 1 - 2 puff IH Q4HR PRN 11/24/15 [History] Allopurinol [Zyloprim 100 MG] 100 mg PO DAILY 11/24/15 [History] Budesonide/Formoterol 160/4.5 [Symbicort 160/4.5] 2 puff IH BIDR 11/24/15 [ History] Calcium Carbonate [Calcium] 500 mg PO DAILY 11/24/15 [History] Cholecalciferol (D-3) [Vitamin D] 2,000 unit PO DAILY 11/24/15 [History] Fluticasone Propionate Nasal [Flonase] 1 spray NS DAILY 11/24/15 [History] Gabapentin [Neurontin] 200 mg PO HS 11/24/15 [History] Loratadine [Claritin] 10 mg PO DAILY 11/24/15 [History] Montelukast [Singulair] 10 mg PO DAILY 11/24/15 [History] Nitroglycerin [Nitrostat] 0.4 mg SL Q5M PRN 11/24/15 [History] Nortriptyline [Pamelor] 10 mg PO HS 11/24/15 [History] Roflumilast [Daliresp] 500 mcg PO DAILY 11/24/15 [History] Vitamin B Complex [B Complex] 1 tab PO DAILY 11/24/15 [History] Umeclidinium [place] [Incruse Ellipta] 1 puff IH DAILY 12/17/15 [History] Atorvastatin [Lipitor] 10 mg PO HS 01/01/16 [History] Albuterol Neb [Proventil Neb] 2.5 mg IH Q4HR PRN 08/25/16 [History] Bifidobacterium Infantis [Align] 4 mg PO DAILY 08/25/16 [History] Esomeprazole Magnesium [Nexium] 40 mg PO DAILY #30 capsule. 10/03/16 [Rx] Acetylcysteine 10% 2 ml IH Q8H #90 inhsol 03/02/17 [Rx] Folic Acid 1 mg PO DAILY #30 tablet 03/02/17 [Rx] HYDROcodone/Acet 5/325 mg [[place] 5-325 mg] 1 tab PO Q4HR PRN #14 tab 03/02/17 [ Rx] Amiodarone [Cordarone] 200 mg PO DAILY #30 tab 03/22/17 [Rx] Digoxin [Lanoxin] 0.125 mg PO DAILY #30 tab 03/22/17 [Rx] Diltiazem CD (24hr) [Cardizem CD] 360 mg PO DAILY #60 tab 03/22/17 [Rx] Furosemide [Lasix] 40 mg PO BID #60 tablet 03/22/17 [Rx] GuaiFENesin ER [Mucinex] 1,200 mg PO BID #20 tab 03/22/17 [Rx] Ipratropium Neb [Atrovent Neb] 0.5 mg IH [id number] #120 inh 03/22/17 [Rx] LORazepam [Ativan] 0.5 mg PO TID PRN #20 tab 03/22/17 [Rx] Levalbuterol Neb [Xopenex Neb] 0.63 mg IH [id number] #120 inh 03/22/17 [Rx] Magnesium Oxide [Mag-Ox] 400 mg PO BID #60 tab 03/22/17 [Rx] Potassium Chloride [K-Tab ER] 20 meq PO DAILY #30 tab 03/22/17 [Rx] Oxygen 5 l IN CONT 03/25/17 [History] Sennosides/Docusate Sodium [Senna Plus] 3 each PO BID 03/25/17 [History] Warfarin [Coumadin] 2.5 mg PO WESA 03/25/17 [History] Warfarin [Coumadin] 5 mg PO SUMOTU 03/25/17 [History] predniSONE [PredniSONE] See Taper PO DAILY 03/25/17 [History] 3 Allergy/AdvReac Type Severity Reaction Status Date / Time ceftriaxone Allergy Hives Verified 03/25/17 15:16 ciprofloxacin Allergy Hives Verified 03/25/17 15:16 levofloxacin Allergy Hives Verified 03/25/17 15:16 vancomycin Allergy Rash Verified 03/25/17 15:16 All Systems Review: A 10-system review of systems was performed and is negative for pertinent findings except as documented above in the HPI. - EENT Nose, mouth and throat: epistaxis - Cardiovascular Cardiovascular: as per HPI Physical Examination Vital Signs, Last 4 Hours Temp Pulse Resp BP Pulse Ox 03/26/17 11:22 97.9 F 72 18 121/71 95 03/26/17 11:17 18 95 General: Conversant, No Apparent Distress HEENT: Atraumatic, Normocephaly, Mucus Membranes Moist Neck: No JVD, Normal carotid pulses Cardiac: Reg Rate and Rhythm, Normal S1 and S2, No Murmur Lungs: Normal Breath Sounds, No Wheeze, Rales, Rhonchi Neuro: Alert and responsive, No focal deficits noted Abdomen: Soft, Non-Tender Skin: No rashes noted on visualized skin Musculoskeletal: No Chest Wall Tenderness Extremities: No Clubbing, No Cyanosis, No Edema, Normal Pulses Results 03/26/17 04:30 03/26/17 04:30 Lab Results Impressions Chest X-Ray 03/25/17 18:10 IMPRESSION: There is persistent masslike consolidation in the right hilar region concerning for underlying malignancy. Mild patchy airspace disease more peripherally in the right lower lobe may be related to postobstructive pneumonia. There has been no significant change compared to prior radiograph. D/ / Payal Sena MD / Payal Sena MD Interpreting Provider: Payal Sena MD Active Medications Acetaminophen (Tylenol) 650 mg PO Q6HR PRN PRN Reason: Mild Pain (1-3) Stop: 09/24/17 22:34 Hydrocodone Bitart/Acetaminophen ([place] 5-325 Mg) 1 tab PO Q4HR PRN PRN Reason: Severe Pain (7-10) Stop: 09/24/17 22:30 Acetylcysteine (Acetylcysteine 20%) 600 mg PO BID [facility] Stop: 09/25/17 09:01 Last Admin: 03/26/17 09:15 Dose: 600 mg Allopurinol (Zyloprim) 100 mg PO DAILY [facility] Stop: 09/25/17 09:01 Last Admin: 03/26/17 08:50 Dose: 100 mg Amiodarone HCl (Cordarone) 200 mg PO DAILY [facility] Stop: 09/25/17 09:01 Last Admin: 03/26/17 08:50 Dose: 200 mg Atorvastatin Calcium (Lipitor) 10 mg PO HS [facility] Stop: 09/25/17 21:01 Budesonide/Formoterol Fumarate (Symbicort) 2 puff IH BIDR [facility] PRN Reason: Protocol Stop: 09/25/17 10:01 Last Admin: 03/26/17 11:17 Dose: 2 puff Calcium Carbonate (Tums) 500 mg PO DAILY [facility] Stop: 09/25/17 09:01 Last Admin: 03/26/17 08:50 Dose: 500 mg Digoxin (Lanoxin) 0.125 mg PO DAILY [facility] Stop: 09/25/17 09:01 Last Admin: 03/26/17 08:50 Dose: 0.125 mg Diltiazem HCl (Cardizem Cd) 360 mg PO DAILY [facility] Stop: 09/25/17 09:01 Last Admin: 03/26/17 08:49 Dose: 360 mg Fluticasone Propionate (Flonase) 50 mcg NS DAILY [facility] PRN Reason: Protocol Stop: 09/25/17 09:01 Last Admin: 03/26/17 08:51 Dose: Not Given Folic Acid (Folic Acid) 1 mg PO DAILY [facility] Stop: 09/25/17 09:01 Last Admin: 03/26/17 08:52 Dose: 1 mg Furosemide (Lasix) 40 mg PO BIDDIURETIC [facility] Stop: 09/24/17 23:16 Last Admin: 03/26/17 08:50 Dose: 40 mg Gabapentin (Neurontin) 200 mg PO HS [facility] Stop: 09/25/17 21:01 Guaifenesin (Mucinex) 1,200 mg PO BID [facility] Stop: 09/25/17 09:01 Last Admin: 03/26/17 08:50 Dose: 1,200 mg Ipratropium [place] (Atrovent Neb) 0.5 mg IH [id number] [facility] Stop: 09/25/17 04:01 Last Admin: 03/26/17 11:17 Dose: 0.5 mg Lactobacillus Acidophilus/Rhamnosus (Culturelle) 1 each PO DAILY [facility] Stop: 09/25/17 09:01 Last Admin: 03/26/17 08:50 Dose: 1 each Loratadine (Claritin) 10 mg PO DAILY [facility] PRN Reason: Protocol Stop: 09/25/17 09:01 Last Admin: 03/26/17 08:50 Dose: 10 mg Lorazepam (Ativan) 0.5 mg PO TID PRN PRN Reason: Anxiety Stop: 09/24/17 22:30 Last Admin: 03/26/17 00:51 Dose: 0.5 mg Magnesium Oxide (Mag-Ox) 400 mg PO BID [facility] PRN Reason: Protocol Stop: 09/25/17 09:01 Last Admin: 03/26/17 08:49 Dose: 400 mg Montelukast Sodium (Singulair) 10 mg PO DAILY [facility] Stop: 09/25/17 09:01 Last Admin: 03/26/17 08:50 Dose: 10 mg Naloxone HCl (Narcan) 0.4 mg IVP Q2MIN PRN PRN Reason: Opioid Reversal Stop: 09/24/17 22:34 Nortriptyline HCl (Pamelor) 10 mg PO HS [facility] Stop: 09/25/17 21:01 Omeprazole (Prilosec) 40 mg PO 0630 [facility] Stop: 09/25/17 06:31 Last Admin: 03/26/17 08:50 Dose: 40 mg Pharmacy Profile Note (Patient Taking Own Medication) 1 each PO DAILY [facility] Stop: 09/25/17 09:01 Last Admin: 03/26/17 08:51 Dose: Not Given Pharmacy Profile Note (Patient Taking Own Medication) 1 each IH DAILY [facility] Stop: 09/25/17 09:01 Last Admin: 03/26/17 08:59 Dose: Not Given Potassium Chloride (Potassium Chloride) 20 meq PO DAILY [facility] Stop: 09/25/17 09:01 Last Admin: 03/26/17 08:50 Dose: 20 meq Senna/Docusate Sodium (Senna Plus) 3 each PO BID [facility] PRN Reason: Protocol Stop: 09/25/17 09:01 Last Admin: 03/26/17 08:49 Dose: 3 each Sotalol HCl (Betapace) 80 mg PO Q12H [facility] Stop: 09/24/17 22:31 Last Admin: 03/25/17 23:33 Dose: 80 mg Vitamin B Complex/Vit C/Vit E (Stresstab) 1 each PO DAILY [facility] Stop: 09/25/17 09:01 Last Admin: 03/26/17 08:49 Dose: 1 each Vitamin D (Vitamin D) 1,000 unit PO DAILY [facility] Stop: 09/25/17 09:01 Last Admin: 03/26/17 08:49 Dose: 1,000 unit Warfarin Sodium (Coumadin Perpt) 1 each PO DAILY@1800 PRN PRN Reason: SEE COMMENTS Stop: 09/25/17 18:01 Laboratory Tests 03/25/17 03/25/17 03/25/17 17:11 17:11 17:11 WBC 30.2 H* D Hgb 10.8 L INR 4.9 H* D Potassium Creatinine Troponin I 0.27 H* 03/25/17 03/26/17 03/26/17 22:45 04:30 04:30 WBC 20.3 H Hgb 9.6 L INR 4.2 Potassium Creatinine Troponin I 0.23 H* 03/26/17 03/26/17 04:30 04:30 WBC Hgb INR Potassium 3.1 L Creatinine 0.78 Troponin I 0.23 H* - Imaging and Cardiology Chest Xray: report reviewed Echo: report reviewed - EKG Interpretation EKG results cardiology: personally reviewed (ECG with SR, HR 89. Subtle ECG changes in precordial leads when compared to 03/02/17. ECGs reviewed with ..), other (Telemetry reviewed with average HR 71, sinus rhythm, PVCs and PACs noted.) Consult Discharge Plan - Plan Referrals: Christoph Hughes, [Primary Care Provider] - <Amelia Page - Last Filed: 03/26/17 19:02> Date of Encounter: 03/26/17 Assessment and Plan Discussion w patient/family: The assessment and plan as outlined above was discussed with the patient and/or family members who expressed understanding and agreement. All questions were answered. Thank you for involving us in the care of your patient. Please call with any questions. History of Present Illness History of present illness: Ms. Dewitt is a 71 year old female All Systems Review: A 10-system review of systems was performed and is negative for pertinent findings except as documented above in the HPI. Physical Examination Vital Signs, Last 4 Hours Temp Pulse Resp BP Pulse Ox 03/26/17 15:32 18 93 03/26/17 15:00 97.5 F L 89 18 114/74 91 Results 03/26/17 04:30 03/26/17 04:30 Lab Results 03/25/17 03/25/17 03/26/17 22:45 22:45 04:30 WBC 20.3 H Hgb 9.6 L Hct 32.0 L 31.8 L Plt Count 182 INR APTT Sodium Potassium Chloride Carbon Dioxide BUN Creatinine Glucose Calcium Magnesium Troponin I 0.23 H* 03/26/17 03/26/17 03/26/17 04:30 04:30 04:30 WBC Hgb Hct Plt Count INR 4.2 APTT 42.9 H Sodium 140 Potassium 3.1 L Chloride 92 L Carbon Dioxide 39 H BUN 46 H Creatinine 0.78 Glucose 62 L Calcium 8.5 L Magnesium 2.1 Troponin I 0.23 H* - Attending Attestation I examined this patient and my medical decision-making was reviewed with the Resident Physician. I agree with the documented findings, disposition and treatment plan. Ms. Dewitt presented with epistaxis in setting of supratherapeutic INR. She has a mechanical mitral valve and atrial fibrillation on coumadin for anticoagulation. Hemoglobin with mild decrease (now 9.6 from 10.8). Incidentally, troponin also noted to be mildly elevated, flat and adynamic in setting of anemia, epistaxis and leukocytosis (possibly reflecting recent steroid use). Patient denies chest pain. ECG with subtle precordial lead changes. Recommend checking limited echo. Prior echo with preserved EF. Continue statin. It should be noted that patient has plans for chemotherapy for lung CA. Patient and family are interested in a conservative cardiology approach at this time. Recommend pharmacy continue to dose coumadin. Continue rate control medications for atrial fibrillation.
--- NOTE | 2017-03-26 16:19 | Internal Med Progress Note ---
Date of Encounter: 03/26/17 Time of Encounter: 10:00 - Assessment and plan (1) Hypertension Current Visit: Yes Status: Chronic Assessment and plan: Continue home medications. Avoid hypertension because patient has bleeding. Qualifiers: Hypertension type: essential hypertension Qualified Code(s): I10 - Essential (primary) hypertension (2) H/O mitral valve replacement with mechanical valve Current Visit: Yes Status: Chronic Assessment and plan: On coumadin, INR goal 2.5-3.5 (3) DVT prophylaxis Current Visit: No Status: Acute Assessment and plan: Patient is on Coumadin (4) Supratherapeutic INR Current Visit: Yes Status: Acute Assessment and plan: Patient was treated with vitamin K in emergency room. Continue closely monitor INR. (5) Leukocytosis Current Visit: Yes Status: Acute Assessment and plan: No signs of infection. Probably reactive. WBC trended down now. Qualifiers: Leukocytosis type: unspecified Qualified Code(s): D72.829 - Elevated white blood cell count, unspecified (6) COPD (chronic obstructive pulmonary disease) Current Visit: Yes Status: Chronic Assessment and plan: Stable, no signs of exacerbation, continue home medications Qualifiers: COPD type: unspecified COPD Qualified Code(s): J44.9 - Chronic obstructive pulmonary disease, unspecified (7) Hypokalemia Current Visit: No Status: Resolved Assessment and plan: Potassium supplement. Follow-up BMP (8) Atrial fibrillation Current Visit: No Status: Chronic Assessment and plan: Heart rate is well controlled on Cardizem, digoxin, and amiodarone . On Coumadin for anticoagulation. Qualifiers: Atrial fibrillation type: paroxysmal Qualified Code(s): I48.0 - Paroxysmal atrial fibrillation (9) KYLIE (obstructive sleep apnea) Current Visit: Yes Status: Chronic Assessment and plan: Continue CPAP during night (10) Lung cancer Current Visit: Yes Status: Chronic Assessment and plan: Patient will follow-up with oncology as outpatient. Plan to start chemotherapy Qualifiers: Laterality: right Lung location: unspecified part of lung Qualified Code( s): C34.91 - Malignant neoplasm of unspecified part of right bronchus or lung (11) Nosebleed Current Visit: Yes Status: Acute Assessment and plan: Patient admitted as active nosebleeding. Right now bleeding stopped. Continue closely monitor patient. Try to keep INR at 2.5-3.5 (12) Elevated troponin Current Visit: Yes Status: Acute Assessment and plan: 3 sets of troponin 0.27/0.23/0.23. Cardiology consultation appreciated. Recommendations will be followed. (13) CAD (coronary artery disease) Current Visit: Yes Status: Chronic Assessment and plan: No chest pain at this point. Continue home medications. Cardiology consult for elevated troponin Qualifiers: Coronary Disease-Associated Artery/Lesion type: [place] artery [place] vs. transplanted heart: [place] heart Associated angina: without angina Qualified Code(s): I25.10 - Atherosclerotic heart disease of [place] coronary artery without angina pectoris - Subjective Interval history: Patient is a 71 -year-old female admitted for nose bleeding. Past medical history significant for A. fib, lung cancer, CHF, COPD, CAD, S/P valve replacement (mechanical valve). Patient was seen and examined. No active bleeding at this point. INR get down to 4.1. Denies chest pain or shortness of breath. Vitals are stable. Cardiology consult appreciated. We will continue closely monitor patient with vitals, H&H, and INR level. - Constitutional Vitals: Temp Pulse Resp BP Pulse Ox 97.5 F L 89 18 114/74 93 03/26/17 15:00 03/26/17 15:00 03/26/17 15:32 03/26/17 15:00 03/26/17 15:32 General appearance: Present: A&O X 3, pleasant, no acute distress - Head Head exam: Present: atraumatic, normocephalic - Eye Eye exam: Present: PERRL, conjuntiva pink, sclera anicteric Pupils: Present: PERRL - Neck Neck exam general surgery: Present: supple, trachea midline. Absent: lymphadenopathy - Respiratory Respiratory exam: Present: CTAB. Absent: accessory muscle use, rales, rhonchi, wheezes - Cardiovascular Cardiovascular exam: Present: RRR, +S1, +S2. Absent: diastolic murmur, gallop, rubs, systolic murmur - GI/Abdominal GI/Abdominal exam: Present: normal bowel sounds, soft, no peritoneal signs. Absent: distended, tenderness - Extremities Exam Extremities exam: Present: warm, radial pulses palpable and symmetrical. Absent : calf tenderness, cyanotic, pedal edema - Neurological Exam Neurological exam: Present: CN II-XII intact, oriented X3, no focal deficits. Absent: pronater drift, facial droop, speech deficit - Skin Skin exam: Present: dry, intact Internal Medicine: Result - Labs CBC & Chem 7: 03/26/17 04:30 03/26/17 04:30 Labs: Short CBC 03/25/17 03/26/17 Range/Units 22:45 04:30 WBC 20.3 H (4.3-11.1) K/mcL Hgb 9.6 L (11.5-15.4) g/dL Hct 32.0 L 31.8 L (35.3-44.9) % Plt Count 182 (140-400) K/mcL Neutrophils # 17.7 H (1.6-8.9) K/mcL BMP 03/26/17 04:30 Sodium 140 Potassium 3.1 L Chloride 92 L Carbon Dioxide 39 H BUN 46 H Creatinine 0.78 Glucose 62 L Calcium 8.5 L Cardiac Enzymes 03/25/17 03/26/17 Range/Units 22:45 04:30 Troponin I 0.23 H* 0.23 H* (0-0.03) ng/mL - ABG Interpretation ABG results: PT/INR, D-dimer PT 46.3 Seconds (9.4-12.1) H* 03/26/17 04:30 Consult Discharge Plan - Plan Referrals: Christoph Hughes DO [Primary Care Provider] -
[2017-03-26] MEDS ORDERED: Diphenoxylate/Atropine 1 TAB TABLET PO ONE (16:50)
[2017-03-26] MEDS ORDERED: Warfarin perPT PO PRN (18:00)
[2017-03-26] MEDS ORDERED: *HR* Warfarin 2 MG TABLET PO ONE (18:00)
[2017-03-26] MEDS: Gabapentin 100 MG CAPSULE PO SCH (21:22)
[2017-03-26] MEDS: *HR* HYDROcodone/Acet 5/325 mg TABLET PO PRN (21:30)
[2017-03-27] MEDS: Ipratropium Neb 0.5 MG NEBULIZER IH SCH ×4 (04:13→22:11)
[2017-03-27 04:33] LABS: Basophils % 0.1 %; Hematocrit 32.3 % (35.3-44.9); Hemoglobin 9.9 g/dL (11.5-15.4); Immature Granulocytes % 3.5 % (0-4); Lymphocytes # 0.8 K/mcL (0.6-4.6); Lymphocytes % 5.1 %; Mean Corpuscular HGB Conc 30.7 g/dL (31.6-35.5); Mean Corpuscular Hemoglobin 25.3 pg (28.0-33.3); Mean Corpuscular Volume 82.6 fL (83.0-100.0); Monocytes # 0.9 K/mcL (0.0-1.3); Monocytes % 5.5 %; Neutrophils # 14.2 K/mcL (1.6-8.9); Nucleated Red Blood Cells 0.2 /100 WBC (0); Platelet Count 175 K/mcL (140-400); Red Blood Count 3.91 M/mcL (3.82-4.97); Red Cell Distribution Width 17.5 % (11.5-14.5); Segmented Neutrophils % 85.8 %
[2017-03-27 04:37] LABS: INR 1.3; Prothrombin Time 14.1 Seconds (9.4-12.1)
[2017-03-27 04:48] LABS: BUN/Creatinine Ratio 51 (6-26); Blood Urea Nitrogen 42 mg/dL (7-20); Calcium 8.3 mg/dL (8.6-10.8); Carbon Dioxide 36 mEq/L (19-29); Chloride 92 mEq/L (98-109); Glucose 70 mg/dL (70-99); Osmolality,Calculated 293 (280-300); Potassium 3.2 mEq/L (3.5-4.5); Sodium 137 mEq/L (136-145); eGFR For African Americans > 60 (> 60); eGFR For Non-African Americans > 60 (> 60)
[2017-03-27 04:57] LABS: Bilirubin,Urine Negative (Negative); Blood,Urine Negative (Negative); Clarity,Urine Clear (Clear); Color,Urine Yellow (Yellow); Glucose,Urine (UA) Normal (Normal); Ketones,Urine Negative (Negative); Leukocyte Esterase,Urine Negative (Negative); Nitrite,Urine Negative (Negative); PH,Urine 6.5 pH Units (5.0-8.0); Protein,Urine Negative (Neg-Trace); Specific Gravity,Urine 1.018 (1.010-1.025); Urobilinogen,Urine Normal (Normal)
[2017-03-27] MEDS ORDERED: *HR* Enoxaparin 60 MG/0.6 ML SYRINGE SQ SCH (07:30)
[2017-03-27] MEDS: Budesonide/Formoterol 160/4.5 MDI IH SCH ×2 (10:52→22:12)
[2017-03-27] MEDS: Furosemide 40 MG TABLET PO SCH ×2 (11:24→17:47)
[2017-03-27] MEDS: *HR* Amiodarone 200 MG TABLET PO SCH (11:24)
[2017-03-27] MEDS: Cholecalciferol (D-3) 1,000 UNIT TABLET PO SCH (11:26)
[2017-03-27] MEDS: Vitamin B Complex/Vit C/Vit E 1 EACH TABLET PO SCH (11:26)
[2017-03-27] MEDS: Magnesium Oxide 400 MG TABLET PO SCH ×2 (11:26→22:32)
[2017-03-27] MEDS: Loratadine 10 MG TABLET PO SCH (11:26)
[2017-03-27] MEDS: Diltiazem CD (24hr) 180 MG CAPSULE PO SCH (11:26)
[2017-03-27] MEDS: Folic Acid 1 MG TABLET PO SCH (11:26)
[2017-03-27] MEDS: *HR* Digoxin 0.125 MG TABLET PO SCH (11:27)
[2017-03-27] MEDS: Lactobacillus 1 EACH CAP.SPRINK PO SCH (11:27)
[2017-03-27] MEDS: Fluticasone Propionate Nasal 50 MCG/SPRAY BOTTLE NS SCH (11:27)
[2017-03-27] MEDS ORDERED: Furosemide 20 MG/2 ML VIAL IVP ONE (12:49)
--- NOTE | 2017-03-27 12:51 | Cardiology Progress Note ---
Date of Encounter: 03/27/17 Time of Encounter: 10:00 Assessment and Plan (1) Supratherapeutic INR Current Visit: Yes Status: Acute Presented with supratherapeutic INR. Apparently received Vitamin K, now INR 1.3. She is being bridged with lovenox. Pharmacy to dose coumadin. Goal INR 2.5-3.5 for mechanical mitral valve. (2) Atrial fibrillation Current Visit: No Status: Chronic Known history of PAF on sotalol, digoxin, cardizem and amiodarone. Presently in rate controlled AFIB. No concerning dysrhythmia overnight. Anticoagulation dosing per pharmacy. Qualifiers: Atrial fibrillation type: paroxysmal Qualified Code(s): I48.0 - Paroxysmal atrial fibrillation (3) Elevated troponin Current Visit: Yes Status: Acute Troponin elevation flat in the setting of anemia and epistaxis. Limited echo returned demonstrating preserved LV systolic function. Patient denies chest pain or worsening SOB. Troponin elevation does not appear to represent ACS. Invasive testing is not warranted at this time. (4) Nosebleed Current Visit: Yes Status: Acute Presented with epistaxis in setting of supratherapeutic INR. This has resolved. Blood count is stable. (5) Weakness generalized Current Visit: Yes Status: Acute Patient complaining of generalized weakness over the last 2 days. Reviewed labs and VS with patient - all without new changes. Suspect recent bout of loose stool/diarrhea has precipitated her symptoms. Will defer management to primary service. Oncology evaluation pending. Discussion w patient/family: The assessment and plan as outlined above was discussed with the patient and/or family members who expressed understanding and agreement. All questions were answered. Thank you for involving us in the care of your patient. Will sign off. Please call with any questions. Subjective Principal diagnosis: Epistaxis Interval history: Ms. Dewitt feels very weak today. She reports having loose stool and diarrhea over the past 3-4 days. There have been no further nosebleeds and patient denies hematochezia or melena. She has no other symptoms to report today. Objective Vital Signs, Last 4 Hours Temp Pulse Resp BP Pulse Ox 03/27/17 11:15 97.8 F 88 18 129/76 95 03/27/17 10:53 18 98 General: Conversant, No Apparent Distress HEENT: Atraumatic, Mucus Membranes Moist Neck: No JVD Cardiac: Normal S1 and S2, Other (irregularly irregular, soft 2/6 systolic murmur LSB) Lungs: Normal Breath Sounds, No Wheeze, Rales, Rhonchi Neuro: Alert and responsive, No focal deficits noted Abdomen: Soft, Non-Tender, Other (normal bowel sounds) Extremities: Other (mild bilateral LE edema) Results 03/27/17 04:00 03/27/17 04:00 Lab Results 03/27/17 03/27/17 03/27/17 04:00 04:00 04:00 WBC 16.5 H Hgb 9.9 L Hct 32.3 L Plt Count 175 INR 1.3 D Sodium 137 Potassium 3.2 L Chloride 92 L Carbon Dioxide 36 H BUN 42 H Creatinine 0.82 Glucose 70 Calcium 8.3 L - Imaging and Cardiology Echo: report reviewed, image reviewed (24h telemetry demonstrates average HR 80 bpm, no concerning dysrhythmia) Consult Discharge Plan - Plan Referrals: Christoph Hughes DO [Primary Care Provider] -
--- NOTE | 2017-03-27 12:57 | Internal Med Progress Note ---
Date of Encounter: 03/27/17 Time of Encounter: 10:00 - Assessment and plan (1) Hypertension Current Visit: Yes Status: Chronic Assessment and plan: Continue home medications. Avoid hypertension because patient has bleeding. Qualifiers: Qualified Code(s): I10 - Essential (primary) hypertension (2) H/O mitral valve replacement with mechanical valve Current Visit: Yes Status: Chronic Assessment and plan: On coumadin, INR goal 2.5-3.5. Today INR is 1.3, give lovenox 50mg sc Q12hr to bridge, cont po coumadin (3) DVT prophylaxis Current Visit: No Status: Acute Assessment and plan: Patient is on Coumadin (4) Supratherapeutic INR Current Visit: Yes Status: Acute Assessment and plan: Patient was treated with vitamin K in emergency room. Continue closely monitor INR. (5) Leukocytosis Current Visit: Yes Status: Acute Assessment and plan: No signs of infection. Probably reactive. WBC trended down now. Patient was prescribed high-dose prednisone and on tapered down process, Which may account leukocytosis. We will continue tapered down prednisone. Qualifiers: Qualified Code(s): D72.829 - Elevated white blood cell count, unspecified (6) COPD (chronic obstructive pulmonary disease) Current Visit: Yes Status: Chronic Assessment and plan: Stable, no signs of exacerbation, continue home medications. On taper down prednisone. Qualifiers: Qualified Code(s): J44.9 - Chronic obstructive pulmonary disease, unspecified (7) Hypokalemia Current Visit: No Status: Resolved Assessment and plan: Cont potassium supplement. Follow-up BMP (8) Atrial fibrillation Current Visit: No Status: Chronic Assessment and plan: Heart rate is well controlled on Cardizem, digoxin, and amiodarone . On Coumadin for anticoagulation. Qualifiers: Qualified Code(s): I48.0 - Paroxysmal atrial fibrillation (9) KYLIE (obstructive sleep apnea) Current Visit: Yes Status: Chronic Assessment and plan: Continue CPAP during night (10) Lung cancer Current Visit: Yes Status: Chronic Assessment and plan: Patient will follow-up with oncology as outpatient. Plan to start chemotherapy Qualifiers: Qualified Code(s): C34.91 - Malignant neoplasm of unspecified part of right bronchus or lung (11) Nosebleed Current Visit: Yes Status: Acute Assessment and plan: Patient admitted as active nosebleeding. Right now bleeding stopped. Continue closely monitor patient. Try to keep INR at 2.5-3.5 (12) Elevated troponin Current Visit: Yes Status: Acute Assessment and plan: 3 sets of troponin 0.27/0.23/0.23. Cardiology consultation appreciated. Recommendations will be followed. (13) CAD (coronary artery disease) Current Visit: Yes Status: Chronic Assessment and plan: No chest pain at this point. Continue home medications. Cardiology consult for elevated troponin Qualifiers: Qualified Code(s): I25.10 - Atherosclerotic heart disease of [place] coronary artery without angina pectoris - Time Spent With Patient 25 - 35 minutes - Subjective Interval history: Patient is a 71 -year-old female admitted for nose bleeding. Past medical history significant for A. fib, lung cancer, CHF, COPD, CAD, S/P valve replacement (mechanical valve). Patient was seen and examined. No active bleeding today. INR get down to 1.3. Feels very weak and c/o legs and face swelling. Vitals are stable. As patient has mechanical valve replacement, will add Lovenox 50mg sc bid to bridge the low INR, cont by mouth Coumadin. Patient c/o diarrhea, reviews her medication she is taking senna/docusate at home, which is discontinued and diarrhea has improved today. Patient has CHF, on Lasix 40 mg by mouth twice a day. Will give her extra 20 mg IV once for swelling. She has no difficulty breathing. Will order ultrasound left arm to rule out DVT although she is on full anticoagulation - Constitutional Vitals: Temp Pulse Resp BP Pulse Ox 97.8 F 88 18 129/76 95 03/27/17 11:15 03/27/17 11:15 03/27/17 11:15 03/27/17 11:15 03/27/17 11:15 General appearance: Present: A&O X 3, pleasant, no acute distress - Head Head exam: Present: atraumatic, normocephalic - Eye Eye exam: Present: PERRL, conjuntiva pink, sclera anicteric Pupils: Present: PERRL - Neck Neck exam general surgery: Present: supple, trachea midline. Absent: lymphadenopathy - Respiratory Respiratory exam: Present: CTAB. Absent: accessory muscle use, rales, rhonchi, wheezes - Cardiovascular Cardiovascular exam: Present: RRR, +S1, +S2. Absent: diastolic murmur, gallop, rubs, systolic murmur - GI/Abdominal GI/Abdominal exam: Present: normal bowel sounds, soft, no peritoneal signs. Absent: distended, tenderness - Extremities Exam Extremities exam: Present: pedal edema (Mild to moderate pedal edema bilaterally ), warm, radial pulses palpable and symmetrical. Absent: calf tenderness, cyanotic Additional comments: Left forearm swelling - Neurological Exam Neurological exam: Present: CN II-XII intact, oriented X3, no focal deficits. Absent: pronater drift, facial droop, speech deficit - Skin Skin exam: Present: dry, intact Internal Medicine: Result - Labs CBC & Chem 7: 03/27/17 04:00 03/27/17 04:00 Labs: Short CBC 03/27/17 Range/Units 04:00 WBC 16.5 H (4.3-11.1) K/mcL Hgb 9.9 L (11.5-15.4) g/dL Hct 32.3 L (35.3-44.9) % Plt Count 175 (140-400) K/mcL Neutrophils # 14.2 H (1.6-8.9) K/mcL BMP 03/27/17 04:00 Sodium 137 Potassium 3.2 L Chloride 92 L Carbon Dioxide 36 H BUN 42 H Creatinine 0.82 Glucose 70 Calcium 8.3 L Urine 03/27/17 Range/Units 04:49 Urine Color Yellow (Yellow) Urine Clarity Clear (Clear) Urine pH 6.5 (5.0-8.0) pH Units Ur Specific [place] 1.018 (1.010-1.025) Urine Protein Negative (Neg-Trace) mg/dL Urine Glucose (UA) Normal (Normal) mg/dL - ABG Interpretation ABG results: PT/INR, D-dimer PT 14.1 Seconds (9.4-12.1) H D 03/27/17 04:00 Consult Discharge Plan - Plan Referrals: Christoph Hughes DO [Primary Care Provider] -
[2017-03-27] MEDS: predniSONE 20 MG TABLET PO SCH (14:36)
[2017-03-27] MEDS: Levalbuterol Neb 0.63 MG/3 ML IH SCH ×2 (15:29→22:11)
--- NOTE | 2017-03-27 17:00 | Oncology Inp Consult Note ---
Date of Encounter: 03/27/17 Time of Encounter: 17:00 Assessment and Plan (1) Supratherapeutic INR Status: Acute Assessment and plan: INR is normal today was revered with vit K due to bleeding/epistaxis per records. She does not have any concerns with bleeding currently. She has resumed anticoagulation with warfarin/lovenox bridging. (2) Lung cancer Status: Chronic Assessment and plan: We again discussed extensively with the patient and family risk benefits of treatment for stage IV metastatic lung cancer with concurrent multiple comorbid issues. Chemotherapy is expected to improve quality of life from lung cancer and a with immunotherapy possibly improved outcome down the line, but she could also have significant side effects requiring hospitalization and further decline in her general condition due to co-mobidities. Palliative care (best supportive care) with clinic follow up without active treatment (PDl1 <1%) reviewed, additionally help with home hospice discussed. Daughter will communicate with her sister and keep us updated on any changes in plan. She does have an appt next wk with us in clinic. Qualifiers: Laterality: right Lung location: unspecified part of lung Qualified Code( s): C34.91 - Malignant neoplasm of unspecified part of right bronchus or lung - Data of Consult Requesting Physician: Richard Cohen MD Primary Care Provider: Christoph Hughes - Consult Narrative Reason for consult: lung ca, A fib-elevated INR History of present illness: Ms. Dewitt is a 71 year old female with medical history significant for COPD on home oxygen, atrial fibrillation, valvular heart disease requiring anticoagulations that the warfarin, with a diagnosis of stage IV lung cancer with bony metastatic disease, adrenal metastatic disease, status post lung biopsy as well as recent adrenal gland biopsy, PDL 1 score is less than 1% to targetable mutations were negative patient was planned for systemic chemotherapy as an outpatient but patient has had multiple hospitalizations including earlier this month as well as twice last month. She is in the hospital due to supratherapeutic INR of 4.9 on admission. Coumadin has been held since hospitalization with repeat INR of 1.3 today. Patient also had epistaxis and was given vitamin K. Patient is seen bedside with her daughter today. She denies any significant complaints today other than feeling tired and wanting to feel better and spent few days at home. She states that she has been ill since the beginning of this year. She denies any hematuria blood in stools, bilateral lower extremity swelling stable. Past Med Surg Social Fam HX - Past Medical History Medical history: arthritis, atrial fibrillation, cancer, cardiomyopathy, CHF, COPD, fibromyalgia, hypertension, myocardial infarction, osteoporosis, RA, other Psychiatric history: no psych history - Past Surgical History Surgical History: angioplasty/stent, cholecystectomy, coronary bypass (CABG), heart valve replacement (Mitral valve), orthopedic, other - Social History Smoking Status: Former smoker Smokeless Tobacco Status: No Alcohol use: none Drug use: none - Family History Father Family Member Ethnicity: Non- Living Status: Hx Family Cardiac Disorders: Yes (GA, HTN, HD) Hx Family Respiratory Disorders: No Hx Family Cancer: Yes (Lung ) Hx Family GI Disorders: No Hx Family Endocrine Disorder: No Hx Family Neuromuscular Disorders: No Hx Family Neurologic Disorders: No Hx Family HEENT Disorders: No Hx Family Autoimmune Disorders: No Brother Family Member Ethnicity: Non- Living Status: Hx Family Cardiac Disorders: Yes (GA) Mother Family Member Ethnicity: Non- Living Status: Hx Family Cardiac Disorders: No Hx Family Respiratory Disorders: Yes (COPD) Hx Family Cancer: Yes (Lung, bone) Hx Family GI Disorders: No Hx Family Endocrine Disorder: No Hx Family Neuromuscular Disorders: No Hx Family Neurologic Disorders: No Hx Family HEENT Disorders: No Hx Family Autoimmune Disorders: No Medications and Allergies Albuterol Sulfate [Albuterol Inhaler] 1 - 2 puff IH Q4HR PRN 11/24/15 [History] Allopurinol [Zyloprim 100 MG] 100 mg PO DAILY 11/24/15 [History] Budesonide/Formoterol 160/4.5 [Symbicort 160/4.5] 2 puff IH BIDR 11/24/15 [ History] Calcium Carbonate [Calcium] 500 mg PO DAILY 11/24/15 [History] Cholecalciferol (D-3) [Vitamin D] 2,000 unit PO DAILY 11/24/15 [History] Fluticasone Propionate Nasal [Flonase] 1 spray NS DAILY 11/24/15 [History] Gabapentin [Neurontin] 200 mg PO HS 11/24/15 [History] Loratadine [Claritin] 10 mg PO DAILY 11/24/15 [History] Montelukast [Singulair] 10 mg PO DAILY 11/24/15 [History] Nitroglycerin [Nitrostat] 0.4 mg SL Q5M PRN 11/24/15 [History] Nortriptyline [Pamelor] 10 mg PO HS 11/24/15 [History] Roflumilast [Daliresp] 500 mcg PO DAILY 11/24/15 [History] Vitamin B Complex [B Complex] 1 tab PO DAILY 11/24/15 [History] Umeclidinium Maize [Incruse Ellipta] 1 puff IH DAILY 12/17/15 [History] Atorvastatin [Lipitor] 10 mg PO HS 01/01/16 [History] Albuterol Neb [Proventil Neb] 2.5 mg IH Q4HR PRN 08/25/16 [History] Bifidobacterium Infantis [Align] 4 mg PO DAILY 08/25/16 [History] Esomeprazole Magnesium [Nexium] 40 mg PO DAILY #30 capsule. 10/03/16 [Rx] Acetylcysteine 10% 2 ml IH Q8H #90 inhsol 03/02/17 [Rx] Folic Acid 1 mg PO DAILY #30 tablet 03/02/17 [Rx] HYDROcodone/Acet 5/325 mg [[place] 5-325 mg] 1 tab PO Q4HR PRN #14 tab 03/02/17 [ Rx] Amiodarone [Cordarone] 200 mg PO DAILY #30 tab 03/22/17 [Rx] Digoxin [Lanoxin] 0.125 mg PO DAILY #30 tab 03/22/17 [Rx] Diltiazem CD (24hr) [Cardizem CD] 360 mg PO DAILY #60 tab 03/22/17 [Rx] Furosemide [Lasix] 40 mg PO BID #60 tablet 03/22/17 [Rx] GuaiFENesin ER [Mucinex] 1,200 mg PO BID #20 tab 03/22/17 [Rx] Ipratropium Neb [Atrovent Neb] 0.5 mg IH [id number] #120 inh 03/22/17 [Rx] LORazepam [Ativan] 0.5 mg PO TID PRN #20 tab 03/22/17 [Rx] Levalbuterol Neb [Xopenex Neb] 0.63 mg IH B1RCSEO #120 inh 03/22/17 [Rx] Magnesium Oxide [Mag-Ox] 400 mg PO BID #60 tab 03/22/17 [Rx] Potassium Chloride [K-Tab ER] 20 meq PO DAILY #30 tab 03/22/17 [Rx] Oxygen 5 l IN CONT 03/25/17 [History] Sennosides/Docusate Sodium [Senna Plus] 3 each PO BID 03/25/17 [History] Warfarin [Coumadin] 2.5 mg PO WESA 03/25/17 [History] Warfarin [Coumadin] 5 mg PO SUMOTU 03/25/17 [History] predniSONE [PredniSONE] See Taper PO DAILY 03/25/17 [History] 3 Allergy/AdvReac Type Severity Reaction Status Date / Time ceftriaxone Allergy Hives Verified 03/25/17 15:16 ciprofloxacin Allergy Hives Verified 03/25/17 15:16 levofloxacin Allergy Hives Verified 03/25/17 15:16 vancomycin Allergy Rash Verified 03/25/17 15:16 Review of systems: as in HPI otherwise neg Oncology - Exam - Constitutional Vitals: Temp Pulse Resp BP Pulse Ox 98.1 F 88 16 136/78 95 03/27/17 16:00 03/27/17 16:00 03/27/17 16:00 03/27/17 16:00 03/27/17 16:00 General appearance: no acute distress - Head Head exam: Present: atraumatic, normal inspection - Eye Eye exam: Present: normal appearance - ENT Additional comments: On O2 NC, dry - Neck Neck exam: Present: full ROM - Respiratory Respiratory exam: Present: CTAB - Cardiovascular Cardiovascular exam: Present: irregular rhythm, +S1, +S2 - GI/Abdominal GI/Abdominal exam: Present: normal bowel sounds, soft - Extremities Exam Extremities exam: Present: pedal edema - Neurological Exam Neurological exam: Present: alert, oriented X3 - Psychiatric Psychiatric exam: Present: normal mood - Skin Skin exam: Present: dry Additional comments: bruising Oncology - Results Labs: Short CBC 03/27/17 Range/Units 04:00 WBC 16.5 H (4.3-11.1) K/mcL Hgb 9.9 L (11.5-15.4) g/dL Hct 32.3 L (35.3-44.9) % Plt Count 175 (140-400) K/mcL Neutrophils # 14.2 H (1.6-8.9) K/mcL BMP 03/27/17 04:00 Sodium 137 Potassium 3.2 L Chloride 92 L Carbon Dioxide 36 H BUN 42 H Creatinine 0.82 Glucose 70 Calcium 8.3 L Urine 03/27/17 Range/Units 04:49 Urine Color Yellow (Yellow) Urine Clarity Clear (Clear) Urine pH 6.5 (5.0-8.0) pH Units Ur Specific [place] 1.018 (1.010-1.025) Urine Protein Negative (Neg-Trace) mg/dL Urine Glucose (UA) Normal (Normal) mg/dL Consult Discharge Plan - Plan Referrals: Christoph Hughes DO [Primary Care Provider] -
[2017-03-27] MEDS: *HR* HYDROcodone/Acet 5/325 mg TABLET PO PRN ×2 (17:48→22:31)
[2017-03-27] MEDS ORDERED: *HR* Warfarin 2 MG TABLET PO ONE (18:00)
[2017-03-27] MEDS: Gabapentin 100 MG CAPSULE PO SCH (22:31)
[2017-03-27] MEDS: *HR* Enoxaparin 60 MG/0.6 ML SYRINGE SQ SCH (22:32)
[2017-03-28] MEDS: Levalbuterol Neb 0.63 MG/3 ML IH SCH ×4 (04:11→22:04)
[2017-03-28] MEDS: Ipratropium Neb 0.5 MG NEBULIZER IH SCH ×4 (04:11→22:04)
[2017-03-28 04:38] LABS: Basophils % 0.1 %; Hematocrit 32.8 % (35.3-44.9); Lymphocytes # 0.6 K/mcL (0.6-4.6); Lymphocytes % 3.2 %; Mean Corpuscular HGB Conc 30.5 g/dL (31.6-35.5); Mean Corpuscular Hemoglobin 24.7 pg (28.0-33.3); Monocytes # 0.9 K/mcL (0.0-1.3); Monocytes % 4.9 %; Nucleated Red Blood Cells 0.1 /100 WBC (0); Platelet Count 191 K/mcL (140-400); Red Blood Count 4.05 M/mcL (3.82-4.97); Red Cell Distribution Width 17.2 % (11.5-14.5); Segmented Neutrophils % 87.8 %
[2017-03-28 04:42] LABS: INR 1.2; Prothrombin Time 13.5 Seconds (9.4-12.1)
[2017-03-28 04:48] LABS: BUN/Creatinine Ratio 47 (6-26); Blood Urea Nitrogen 35 mg/dL (7-20); Calcium 8.1 mg/dL (8.6-10.8); Carbon Dioxide 36 mEq/L (19-29); Chloride 91 mEq/L (98-109); Glucose 110 mg/dL (70-99); Osmolality,Calculated 291 (280-300); Potassium 3.6 mEq/L (3.5-4.5); Sodium 136 mEq/L (136-145); eGFR For African Americans > 60 (> 60); eGFR For Non-African Americans > 60 (> 60)
[2017-03-28] MEDS ORDERED: Levalbuterol Neb 0.63 MG/3 ML IH STA (08:10)
[2017-03-28] MEDS: Diltiazem CD (24hr) 180 MG CAPSULE PO SCH (09:04)
[2017-03-28] MEDS: *HR* Amiodarone 200 MG TABLET PO SCH (09:05)
[2017-03-28] MEDS: predniSONE 20 MG TABLET PO SCH (09:05)
[2017-03-28] MEDS: *HR* Digoxin 0.125 MG TABLET PO SCH (09:05)
[2017-03-28] MEDS: Folic Acid 1 MG TABLET PO SCH (09:05)
[2017-03-28] MEDS: Cholecalciferol (D-3) 1,000 UNIT TABLET PO SCH (09:05)
[2017-03-28] MEDS: Loratadine 10 MG TABLET PO SCH (09:05)
[2017-03-28] MEDS: Magnesium Oxide 400 MG TABLET PO SCH ×2 (09:05→21:08)
[2017-03-28] MEDS: Lactobacillus 1 EACH CAP.SPRINK PO SCH (09:06)
[2017-03-28] MEDS: Vitamin B Complex/Vit C/Vit E 1 EACH TABLET PO SCH (09:06)
[2017-03-28] MEDS: Furosemide 40 MG TABLET PO SCH ×2 (09:07→18:39)
[2017-03-28] MEDS: Fluticasone Propionate Nasal 50 MCG/SPRAY BOTTLE NS SCH (09:08)
[2017-03-28] MEDS ORDERED: Furosemide 20 MG/2 ML VIAL IVP ONE (09:56)
[2017-03-28] MEDS: Budesonide/Formoterol 160/4.5 MDI IH SCH ×2 (11:22→22:03)
[2017-03-28] MEDS: *HR* Enoxaparin 60 MG/0.6 ML SYRINGE SQ SCH ×2 (11:44→21:12)
--- NOTE | 2017-03-28 14:06 | Internal Med Progress Note ---
Date of Encounter: 03/28/17 Time of Encounter: 10:00 - Assessment and plan (1) Hypertension Current Visit: Yes Status: Chronic Assessment and plan: Continue home medications. Avoid hypertension because patient has bleeding. Qualifiers: Hypertension type: essential hypertension Qualified Code(s): I10 - Essential (primary) hypertension (2) H/O mitral valve replacement with mechanical valve Current Visit: Yes Status: Chronic Assessment and plan: On coumadin, INR goal 2.5-3.5. Today INR is 1.2, give lovenox 50mg sc Q12hr to bridge, cont po coumadin (3) DVT prophylaxis Current Visit: No Status: Acute Assessment and plan: Patient is on Coumadin (4) Supratherapeutic INR Current Visit: Yes Status: Acute Assessment and plan: Patient was treated with vitamin K in emergency room. INR get down to 1.2. Continue closely monitor INR. (5) Leukocytosis Current Visit: Yes Status: Acute Assessment and plan: No signs of infection. Probably reactive. Patient was prescribed high-dose prednisone and on tapered down process, Which may account leukocytosis. We will continue tapered down prednisone. Qualifiers: Leukocytosis type: unspecified Qualified Code(s): D72.829 - Elevated white blood cell count, unspecified (6) COPD (chronic obstructive pulmonary disease) Current Visit: Yes Status: Chronic Assessment and plan: Stable, no signs of exacerbation, continue home medications. On taper down prednisone. Qualifiers: COPD type: unspecified COPD Qualified Code(s): J44.9 - Chronic obstructive pulmonary disease, unspecified (7) Hypokalemia Current Visit: No Status: Resolved Assessment and plan: Cont potassium supplement. Follow-up BMP. Improved after potassium supplement. (8) Atrial fibrillation Current Visit: No Status: Chronic Assessment and plan: Heart rate is well controlled on Cardizem, digoxin, and amiodarone . On Coumadin/lovenox for anticoagulation. Qualifiers: Atrial fibrillation type: paroxysmal Qualified Code(s): I48.0 - Paroxysmal atrial fibrillation (9) KYLIE (obstructive sleep apnea) Current Visit: Yes Status: Chronic Assessment and plan: Continue CPAP during night (10) Lung cancer Current Visit: Yes Status: Chronic Assessment and plan: Stage iv lung ca. Oncology consult appreciated. Patient will follow-up with oncology as outpatient. Plan to start chemotherapy Qualifiers: Laterality: right Lung location: lower lobe of lung Qualified Code(s): C34.31 - Malignant neoplasm of lower lobe, right bronchus or lung (11) Nosebleed Current Visit: Yes Status: Acute Assessment and plan: Patient admitted as active nosebleeding. Right now bleeding stopped. Continue closely monitor patient. Try to keep INR at 2.5-3.5 (12) Elevated troponin Current Visit: Yes Status: Acute Assessment and plan: 3 sets of troponin 0.27/0.23/0.23. Cardiology consultation appreciated. Recommendations will be followed. (13) CAD (coronary artery disease) Current Visit: Yes Status: Chronic Assessment and plan: No chest pain at this point. Continue home medications. Cardiology consult for elevated troponin Qualifiers: Coronary Disease-Associated Artery/Lesion type: [place] artery [place] vs. transplanted heart: [place] heart Associated angina: without angina Qualified Code(s): I25.10 - Atherosclerotic heart disease of [place] coronary artery without angina pectoris (14) Diastolic heart failure Current Visit: No Status: Chronic Assessment and plan: Has legs swelling, no SOB or signs of pulmonary edema. On po lasix, will give extra dose of IV lasix 20mg today. Qualifiers: Heart failure chronicity: chronic Qualified Code(s): I50.32 - Chronic diastolic (congestive) heart failure - Time Spent With Patient 25 - 35 minutes - Subjective Interval history: Patient is a 71 -year-old female admitted for nose bleeding. Past medical history significant for A. fib, lung cancer, CHF, COPD, CAD, S/P valve replacement (mechanical valve). Patient was seen and examined. No active bleeding today. INR get down to 1.2. Still c/o very weak and c/o legs and face swelling. Vitals are stable. Will cont coumadin with lovenox sc bid for bridging. Pt easy to get bruise or skin bleeding, will add vit C considering she has poor uptake for a retirement. US left arm reveals patially blocked DVT per vascular preliminary report, as pt is already on full anticoagulation and stage IV lung cancer, no further workup/ treatment added. Pt has multiple comorbidities and prognosis is guarded. - Constitutional Vitals: Temp Pulse Resp BP Pulse Ox 97.8 F 97 18 112/74 100 03/28/17 11:05 03/28/17 11:05 03/28/17 11:25 03/28/17 11:05 03/28/17 13:29 General appearance: Present: A&O X 3, pleasant, no acute distress - Head Head exam: Present: atraumatic, normocephalic - Eye Eye exam: Present: PERRL, conjuntiva pink, sclera anicteric Pupils: Present: PERRL - Neck Neck exam general surgery: Present: supple, trachea midline. Absent: lymphadenopathy - Respiratory Respiratory exam: Present: CTAB. Absent: accessory muscle use, rales, rhonchi, wheezes - Cardiovascular Cardiovascular exam: Present: irregular rhythm, +S1, +S2. Absent: diastolic murmur, gallop, rubs, systolic murmur - GI/Abdominal GI/Abdominal exam: Present: normal bowel sounds, soft, no peritoneal signs. Absent: distended, tenderness - Extremities Exam Extremities exam: Present: pedal edema (B/L), warm, radial pulses palpable and symmetrical. Absent: calf tenderness, cyanotic - Neurological Exam Neurological exam: Present: CN II-XII intact, oriented X3, no focal deficits. Absent: pronater drift, facial droop, speech deficit - Skin Skin exam: Present: dry, intact Internal Medicine: Result - Labs CBC & Chem 7: 03/28/17 04:20 03/28/17 04:20 Labs: Short CBC 03/28/17 Range/Units 04:20 WBC 18.2 H (4.3-11.1) K/mcL Hgb 10.0 L (11.5-15.4) g/dL Hct 32.8 L (35.3-44.9) % Plt Count 191 (140-400) K/mcL Neutrophils # 16.0 H (1.6-8.9) K/mcL BMP 03/28/17 04:20 Sodium 136 Potassium 3.6 Chloride 91 L Carbon Dioxide 36 H BUN 35 H Creatinine 0.75 Glucose 110 H Calcium 8.1 L - ABG Interpretation ABG results: PT/INR, D-dimer PT 13.5 Seconds (9.4-12.1) H 03/28/17 04:20 Consult Discharge Plan - Plan Referrals: Christoph Hughes DO [Primary Care Provider] -
[2017-03-28] MEDS: Ascorbic Acid 500 MG TABLET PO SCH (15:09)
[2017-03-28] MEDS ORDERED: *HR* Warfarin 3 MG TABLET PO ONE (18:00)
[2017-03-28] MEDS: *HR* LORazepam 0.5 MG TABLET PO PRN (21:07)
[2017-03-28] MEDS: Gabapentin 100 MG CAPSULE PO SCH (21:07)
[2017-03-28] MEDS: *HR* HYDROcodone/Acet 5/325 mg TABLET PO PRN (21:07)
[2017-03-29] MEDS: Levalbuterol Neb 0.63 MG/3 ML IH SCH ×4 (04:02→21:32)
[2017-03-29] MEDS: Ipratropium Neb 0.5 MG NEBULIZER IH SCH ×4 (04:02→21:33)
[2017-03-29 04:15] LABS: INR 1.2; Prothrombin Time 12.8 Seconds (9.4-12.1)
[2017-03-29 04:23] LABS: Basophils % 0.1 %; Hematocrit 29.5 % (35.3-44.9); Hemoglobin 9.2 g/dL (11.5-15.4); Lymphocytes % 4.6 %; Mean Corpuscular HGB Conc 31.2 g/dL (31.6-35.5); Mean Corpuscular Hemoglobin 25.1 pg (28.0-33.3); Mean Corpuscular Volume 80.6 fL (83.0-100.0); Mean Platelet Volume 10.3 fL (9.4-12.4); Monocytes % 4.8 %; Neutrophils # 17.9 K/mcL (1.6-8.9); Nucleated Red Blood Cells 0.2 /100 WBC (0); Platelet Count 195 K/mcL (140-400); Red Blood Count 3.66 M/mcL (3.82-4.97); Red Cell Distribution Width 17.1 % (11.5-14.5); Segmented Neutrophils % 86.5 %
[2017-03-29 04:27] LABS: BUN/Creatinine Ratio 40 (6-26); Blood Urea Nitrogen 30 mg/dL (7-20); Calcium 8.1 mg/dL (8.6-10.8); Carbon Dioxide 34 mEq/L (19-29); Chloride 89 mEq/L (98-109); Glucose 93 mg/dL (70-99); Osmolality,Calculated 280 (280-300); Potassium 3.8 mEq/L (3.5-4.5); Sodium 132 mEq/L (136-145); eGFR For African Americans > 60 (> 60); eGFR For Non-African Americans > 60 (> 60)
--- NOTE | 2017-03-29 08:36 | Electrocardiograph Report ---
[place] [id number] Test Date: 2017-03-25 Pat Name: Yasmeen Dewitt Department: 103 Room: [id number] Gender: F [employer] Ad[employer]er: CHANI : 1945 Requested By: Emiliano Rodriguez Order Number: [id number] Reading MD: Juan Jose Stephens DO Measurements Intervals [place] Rate: 89 P: 0 GA: 100 QRS: 29 QRSD: 77 T: 48 QT: 362 QTc: 408 Interpretive Statements Sinus rhythm with short GA interval Nonspecific ST-T changes Electronically Signed On 03-28-2017 9:58:18 EDT by Juan Jose Stephens DO
[2017-03-29] MEDS: predniSONE 20 MG TABLET PO SCH (09:15)
[2017-03-29] MEDS: Ascorbic Acid 500 MG TABLET PO SCH (09:15)
[2017-03-29] MEDS: *HR* Digoxin 0.125 MG TABLET PO SCH (09:15)
[2017-03-29] MEDS: Loratadine 10 MG TABLET PO SCH (09:15)
[2017-03-29] MEDS: Cholecalciferol (D-3) 1,000 UNIT TABLET PO SCH (09:15)
[2017-03-29] MEDS: Diltiazem CD (24hr) 180 MG CAPSULE PO SCH (09:15)
[2017-03-29] MEDS: Vitamin B Complex/Vit C/Vit E 1 EACH TABLET PO SCH (09:15)
[2017-03-29] MEDS: Lactobacillus 1 EACH CAP.SPRINK PO SCH (09:15)
[2017-03-29] MEDS: Furosemide 40 MG TABLET PO SCH ×2 (09:16→17:27)
[2017-03-29] MEDS: *HR* HYDROcodone/Acet 5/325 mg TABLET PO PRN ×3 (09:16→22:27)
[2017-03-29] MEDS: Fluticasone Propionate Nasal 50 MCG/SPRAY BOTTLE NS SCH (09:16)
[2017-03-29] MEDS: Folic Acid 1 MG TABLET PO SCH (09:16)
[2017-03-29] MEDS: *HR* Amiodarone 200 MG TABLET PO SCH (09:16)
[2017-03-29] MEDS: Magnesium Oxide 400 MG TABLET PO SCH ×2 (09:16→20:41)
[2017-03-29] MEDS: Budesonide/Formoterol 160/4.5 MDI IH SCH ×2 (10:55→21:33)
--- NOTE | 2017-03-29 11:41 | Venous Imaging Report ---
UE Venous Duplex Patient Name:Yasmeen Dewitt Order Number:[id number] Procedure Date:03/28/2017 Date:8Age:71 yrs Gender:Female Location:[facility] Room #: 2NE22 [employer] Specialist:Ryann Hayes RVT Referring MD:Richard Cohen MD Reading MD:Ozzy Ramey MD Primary Indications:Swelling Secondary Indications: Impressions: Upper extremity abnormal deep exam: left Axillary vein acute thrombosis. Recommendations: Test completed on 03/28/2017 at 1:10:00 pm. Findings Venous Duplex Results: Left: Venous imaging of the upper extremity reveals full patency and normal vessel compressibility of the left jugular, left subclavian, left brachial, left basilic, left radial and left ulnar. Doppler signals in the evaluated veins were normal. There is an acute partially occlusive thrombus seen in the left axillary. It demonstrates a partially compressible vein. Flow was continuous and it did not augment. The left cephalic demonstrates a compressible vein. Flow was absent and it did augment. Prior Study: No prior study available for comparison. Results to Dr Cohen on 03/28/17 @ 6842. Not able to image R Subclavian V d/t central line placement. Upper Extremity Venous Duplex Side Vein Compress Spontaneous Flow Augment Left Jugular Normal yes Phasic yes Left Subclavian Normal yes Phasic yes Left Axillary Partial no Continuous no Left Brachial Normal yes Phasic yes Left Cephalic Normal yes Absent yes Left Basilic Normal yes Phasic yes Left Radial Normal yes Phasic yes Left Ulnar Normal yes Phasic yes Updated by Ozzy Ramey MD on 03/29/2017 11:34:12 AM electronically signed on 03/29/2017 11:34:27 AM with status of Final
[2017-03-29] MEDS: *HR* Enoxaparin 60 MG/0.6 ML SYRINGE SQ SCH ×2 (13:36→22:26)
--- NOTE | 2017-03-29 14:06 | Discharge Summary ---
Date of Encounter: 03/29/17 Time of Encounter: 11:00 - Discharge Diagnosis (1) Hypertension Priority: Secondary Status: Chronic Qualifiers: Hypertension type: essential hypertension Qualified Code(s): I10 - Essential (primary) hypertension (2) H/O mitral valve replacement with mechanical valve Priority: Secondary Status: Chronic (3) DVT prophylaxis Priority: Secondary Status: Acute (4) Supratherapeutic INR Priority: Secondary Status: Acute (5) Leukocytosis Priority: Primary Status: Acute Qualifiers: Leukocytosis type: unspecified Qualified Code(s): D72.829 - Elevated white blood cell count, unspecified (6) COPD (chronic obstructive pulmonary disease) Priority: Secondary Status: Chronic Qualifiers: COPD type: unspecified COPD Qualified Code(s): J44.9 - Chronic obstructive pulmonary disease, unspecified (7) Hypokalemia Priority: Primary Status: Resolved (8) Atrial fibrillation Priority: Secondary Status: Chronic Qualifiers: Atrial fibrillation type: paroxysmal Qualified Code(s): I48.0 - Paroxysmal atrial fibrillation (9) KYLIE (obstructive sleep apnea) Priority: Secondary Status: Chronic (10) Lung cancer Priority: Secondary Status: Chronic Qualifiers: Laterality: right Lung location: lower lobe of lung Qualified Code(s): C34.31 - Malignant neoplasm of lower lobe, right bronchus or lung (11) Nosebleed Priority: Primary Status: Acute (12) Elevated troponin Priority: Primary Status: Acute (13) CAD (coronary artery disease) Priority: Secondary Status: Chronic Qualifiers: Coronary Disease-Associated Artery/Lesion type: [place] artery [place] vs. transplanted heart: [place] heart Associated angina: without angina Qualified Code(s): I25.10 - Atherosclerotic heart disease of [place] coronary artery without angina pectoris (14) Diastolic heart failure Priority: Secondary Status: Chronic Qualifiers: Heart failure chronicity: chronic Qualified Code(s): I50.32 - Chronic diastolic (congestive) heart failure - Discharge Medications Prescriptions: Loperamide [Imodium] 2 mg PO Q4HR PRN #20 capsule PRN Reason: Diarrhea Ascorbic Acid [Vitamin C] 500 mg PO DAILY #30 tablet Enoxaparin [Lovenox] 50 mg SQ Q12H #8 syringe Home Medications: Allopurinol [Zyloprim 100 MG] 100 mg PO DAILY 11/24/15 [History] Budesonide/Formoterol 160/4.5 [Symbicort 160/4.5] 2 puff IH BIDR 11/24/15 [ History] Calcium Carbonate [Calcium] 500 mg PO DAILY 11/24/15 [History] Cholecalciferol (D-3) [Vitamin D] 2,000 unit PO DAILY 11/24/15 [History] Fluticasone Propionate Nasal [Flonase] 1 spray NS DAILY 11/24/15 [History] Gabapentin [Neurontin] 200 mg PO HS 11/24/15 [History] Loratadine [Claritin] 10 mg PO DAILY 11/24/15 [History] Montelukast [Singulair] 10 mg PO DAILY 11/24/15 [History] Nitroglycerin [Nitrostat] 0.4 mg SL Q5M PRN 11/24/15 [History] Nortriptyline [Pamelor] 10 mg PO HS 11/24/15 [History] Roflumilast [Daliresp] 500 mcg PO DAILY 11/24/15 [History] Vitamin B Complex [B Complex] 1 tab PO DAILY 11/24/15 [History] Umeclidinium [place] [Incruse Ellipta] 1 puff IH DAILY 12/17/15 [History] Atorvastatin [Lipitor] 10 mg PO HS 01/01/16 [History] Bifidobacterium Infantis [Align] 4 mg PO DAILY 08/25/16 [History] Esomeprazole Magnesium [Nexium] 40 mg PO DAILY #30 capsule. 10/03/16 [Rx] Acetylcysteine 10% 2 ml IH Q8H #90 inhsol 03/02/17 [Rx] Folic Acid 1 mg PO DAILY #30 tablet 03/02/17 [Rx] HYDROcodone/Acet 5/325 mg [[place] 5-325 mg] 1 tab PO Q4HR PRN #14 tab 03/02/17 [ Rx] Amiodarone [Cordarone] 200 mg PO DAILY #30 tab 03/22/17 [Rx] Digoxin [Lanoxin] 0.125 mg PO DAILY #30 tab 03/22/17 [Rx] Diltiazem CD (24hr) [Cardizem CD] 360 mg PO DAILY #60 tab 03/22/17 [Rx] Furosemide [Lasix] 40 mg PO BID #60 tablet 03/22/17 [Rx] GuaiFENesin ER [Mucinex] 1,200 mg PO BID #20 tab 03/22/17 [Rx] Ipratropium Neb [Atrovent Neb] 0.5 mg IH [id number] #120 inh 03/22/17 [Rx] LORazepam [Ativan] 0.5 mg PO TID PRN #20 tab 03/22/17 [Rx] Levalbuterol Neb [Xopenex Neb] 0.63 mg IH [id number] #120 inh 03/22/17 [Rx] Magnesium Oxide [Mag-Ox] 400 mg PO BID #60 tab 03/22/17 [Rx] Potassium Chloride [K-Tab ER] 20 meq PO DAILY #30 tab 03/22/17 [Rx] Oxygen 5 l IN CONT 03/25/17 [History] Warfarin [Coumadin] 2.5 mg PO WESA 03/25/17 [History] predniSONE [PredniSONE] See Taper PO DAILY 03/25/17 [History] Ascorbic Acid [Vitamin C] 500 mg PO DAILY #30 tablet 03/29/17 [Rx] Enoxaparin [Lovenox] 50 mg SQ Q12H #8 syringe 03/29/17 [Rx] Loperamide [Imodium] 2 mg PO Q4HR PRN #20 capsule 03/29/17 [Rx] Allergies/Adverse Reactions: 3 Allergy/AdvReac Type Severity Reaction Status Date / Time ceftriaxone Allergy Hives Verified 03/25/17 15:16 ciprofloxacin Allergy Hives Verified 03/25/17 15:16 levofloxacin Allergy Hives Verified 03/25/17 15:16 vancomycin Allergy Rash Verified 03/25/17 15:16 Procedures/tests Complete & Pending: Procedures Performed prior 72 hours Category Date Time Status EV venous imaging UE LT Routine Y 03/28/17 12:51 Completed - Notes to Outpatient Provider 1. Patient's Coumadin dose has been changed to 2.5mg po daily, and she is on lovenox 50mg sc q12h for bridging. Please check INR closely (need to check on Wed03/31/17). And adjust Coumadin dose accordingly by PCP. 2. Patient is generalized decondition, need hospital bed and keep HOB elevation more than 30 degrees for her CHF, COPD, stage IV lung cancer, and general deconditioning. Date of admission: 03/25/17 22:33 Primary care physician: Christoph Hughes Consults: 03/25/17 23:40 Consult to Oncology [CONS] Routine Consulting Provider: Oncology [facility] Reason for Consult: PEr request from family, known Lung CA with mets Call Completed: Yes 03/27/17 10:50 Consult to Occupational Therapy [CONS] Routine Comment: Evaluate, develop and implement POC Reason for Consult: Weakness Consult to Physical Therapy [CONS] Routine Comment: Evaluate, develop and implement POC Reason for Consult: Weakness 03/27/17 13:27 Consult to Tractor Operator Battery [CONS] Routine Reason for SW Consult: family requesting a hospital bed at home. ESTELLA Garzon is aware. 03/28/17 14:13 consult to heavy equipment operator/paver [Consult to Nutrition] [CONS] Routine Comment: Consulting Provider: NUTRITION Reason for Dietary Consult: PO Supplementation Discharging clinician: Richard Cohen Anticipated date of discharge: 03/29/17 - Patient Status Disposition: Home Health Service Condition: Fair Functional capacity at discharge: bed bound Overall status at discharge: patient is back to baseline - Discharge Instructions Follow Up With: Christoph Hughes DO [Primary Care Provider] - - Diet and Activity Activity: as per physical therapy, wear oxygen at all times Diet: low fat, low cholesterol, low salt diet Interval History: HPI on Adm: Ms. Gamboa is a 70 year old female with hypertension, atrial fibrillation on Coumadin, end-stage renal disease on hemodialysis, presents emergency department today with complaints of dizziness, weakness. Patient had presented to dialysis this morning but she was noted to be dizzy and pale and since the emergency department. Hemoglobin was found to be 5.3. Patient does report black stools for the past month, though she is on iron supplements and thought that was what the cause. She denies any maryjane blood in her stools, or any other bleeding. She does report easy bruising. She reports lightheadedness, shortness of breath with activity, occasional chest pain. She denies any nausea or vomiting, but does report abdominal pain on and off. She denies any fever or chills or sweats. Evaluation emergency department revealed hemoglobin of 5.3, hematocrit of 16.8. Her INR was supratherapeutic at 3.2. Troponin was negative at 0.01. BUN and creatinine of 56 and 5.04, respectively are consistent with her baseline end-stage renal disease. Chest x-ray showed stable cardiomegaly with no acute process. Blood pressure was running low for patient 90s systolic. Dr[address] Gonzalez of nephrology was consulted and plans to for dialysis today. 2 units of red blood cells and 2 units of FFP were ordered. On exam, patient alert and oriented, in no acute distress. She appeared pale. Heart had regular rate and rhythm. Lungs are clear bilaterally to auscultation. Abdomen was soft with mild tenderness in bilateral lower quadrants. +1 peripheral edema. Hospital course: Ms. Dewitt is a 71 year old female with history of stage IV lung cancer, mechanical valve replacement on Coumadin, A. fib, CHF, COPD admitted her for supratherapeutic INR and nose bleeding. Patient was treated with vitamin K in emergent room. Her nose bleeding has stopped. Her INR Down to 1.2-1.3 level. Coumadin resumed and bridged by lovenox sc. Patient is generally weak, deconditioned. PT OT evaluation done, recommend SNF discharge. However, patient's 2 daughters are nurses and patient and family insists to be discharged home. We will discharge patient home with hospital bed for her general deconditioning, severe CHF and COPD. Patient will follow-up with PCP and oncology as outpatient. I saw and examined the patient today. No further bleeding. Generally weak, denies chest pain or shortness of breath. vitals are general stable. Will discharge patient home with home health and home palliative care, continue follow-up with PCP and oncology as outpatient - Time Spent with Patient Total time spent providing and/or coordinating discharge services: 40 min Greater than 30 minutes - Constitutional Vitals: Temp Pulse Resp BP Pulse Ox 97.8 F 102 24 122/68 100 03/29/17 12:04 03/29/17 12:04 03/29/17 12:04 03/29/17 12:04 03/29/17 12:04 General appearance: Present: A&O X 3, pleasant, no acute distress - Head Head exam: Present: atraumatic, normocephalic - Eye Eye exam: Present: PERRL, conjuntiva pink, sclera anicteric Pupils: Present: PERRL - Neck Neck exam general surgery: Present: supple, trachea midline. Absent: lymphadenopathy - Respiratory Respiratory exam: Present: CTAB. Absent: accessory muscle use, rales, rhonchi, wheezes - Cardiovascular Cardiovascular exam: Present: irregular rhythm, +S1, +S2. Absent: diastolic murmur, gallop, rubs, systolic murmur - GI/Abdominal GI/Abdominal exam: Present: normal bowel sounds, soft, no peritoneal signs. Absent: distended, tenderness - Extremities Exam Extremities exam: Present: pedal edema (Bilaterally), warm, radial pulses palpable and symmetrical. Absent: calf tenderness, cyanotic - Neurological Exam Neurological exam: Present: CN II-XII intact, oriented X3, no focal deficits. Absent: pronater drift, facial droop, speech deficit - Skin Skin exam: Present: dry, intact - VTE Documentation of Mechanical Device: Intermittent pneumatic compression device
--- NOTE | 2017-03-29 14:26 | Physician Discharge Referral ---
Home Health/Hosp Referral Info Transfer to: Home Health Provider in Charge Post Discharge: PCP - Diagnosis (1) Hypertension Status: Chronic (2) H/O mitral valve replacement with mechanical valve Status: Chronic (3) DVT prophylaxis Status: Acute (4) Supratherapeutic INR Status: Acute (5) Leukocytosis Status: Acute (6) COPD (chronic obstructive pulmonary disease) Status: Chronic (7) Hypokalemia Status: Resolved (8) Atrial fibrillation Status: Chronic (9) KYLIE (obstructive sleep apnea) Status: Chronic (10) Lung cancer Status: Chronic (11) Nosebleed Status: Acute (12) Elevated troponin Status: Acute (13) CAD (coronary artery disease) Status: Chronic (14) Diastolic heart failure Status: Chronic - Respiratory Orders Oxygen / L per min (2-3), Other (CPAP during night) Smoking Cessation: Smoking cessation has been advised. For more information, call the [employer] Quit Line at 3-937-MGJJ-NOW. - Diet/Nutrition Diet/Nutrition Orders: Cardiac - Services Needed Following services are medically necessary services: Nursing, Home Health Aide, Physical Therapy, Occupational Therapy Home Care Orders: Home palliative care Other Treatments: Check INR on Wed03/31/17, INR result and will be followed by PCP and cardiology VANESSA Andrade. - Transfer Medications Prescriptions: Loperamide [Imodium] 2 mg PO Q4HR PRN #20 capsule PRN Reason: Diarrhea Ascorbic Acid [Vitamin C] 500 mg PO DAILY #30 tablet Enoxaparin [Lovenox] 50 mg SQ Q12H #8 syringe Home Medications: Allopurinol [Zyloprim 100 MG] 100 mg PO DAILY 11/24/15 [History] Budesonide/Formoterol 160/4.5 [Symbicort 160/4.5] 2 puff IH BIDR 11/24/15 [ History] Calcium Carbonate [Calcium] 500 mg PO DAILY 11/24/15 [History] Cholecalciferol (D-3) [Vitamin D] 2,000 unit PO DAILY 11/24/15 [History] Fluticasone Propionate Nasal [Flonase] 1 spray NS DAILY 11/24/15 [History] Gabapentin [Neurontin] 200 mg PO HS 11/24/15 [History] Loratadine [Claritin] 10 mg PO DAILY 11/24/15 [History] Montelukast [Singulair] 10 mg PO DAILY 11/24/15 [History] Nitroglycerin [Nitrostat] 0.4 mg SL Q5M PRN 11/24/15 [History] Nortriptyline [Pamelor] 10 mg PO HS 11/24/15 [History] Roflumilast [Daliresp] 500 mcg PO DAILY 11/24/15 [History] Vitamin B Complex [B Complex] 1 tab PO DAILY 11/24/15 [History] Umeclidinium [place] [Incruse Ellipta] 1 puff IH DAILY 12/17/15 [History] Atorvastatin [Lipitor] 10 mg PO HS 01/01/16 [History] Bifidobacterium Infantis [Align] 4 mg PO DAILY 08/25/16 [History] Esomeprazole Magnesium [Nexium] 40 mg PO DAILY #30 capsule. 10/03/16 [Rx] Acetylcysteine 10% 2 ml IH Q8H #90 inhsol 03/02/17 [Rx] Folic Acid 1 mg PO DAILY #30 tablet 03/02/17 [Rx] HYDROcodone/Acet 5/325 mg [[place] 5-325 mg] 1 tab PO Q4HR PRN #14 tab 03/02/17 [ Rx] Amiodarone [Cordarone] 200 mg PO DAILY #30 tab 03/22/17 [Rx] Digoxin [Lanoxin] 0.125 mg PO DAILY #30 tab 03/22/17 [Rx] Diltiazem CD (24hr) [Cardizem CD] 360 mg PO DAILY #60 tab 03/22/17 [Rx] Furosemide [Lasix] 40 mg PO BID #60 tablet 03/22/17 [Rx] GuaiFENesin ER [Mucinex] 1,200 mg PO BID #20 tab 03/22/17 [Rx] Ipratropium Neb [Atrovent Neb] 0.5 mg IH [id number] #120 inh 03/22/17 [Rx] LORazepam [Ativan] 0.5 mg PO TID PRN #20 tab 03/22/17 [Rx] Levalbuterol Neb [Xopenex Neb] 0.63 mg IH [id number] #120 inh 03/22/17 [Rx] Magnesium Oxide [Mag-Ox] 400 mg PO BID #60 tab 03/22/17 [Rx] Potassium Chloride [K-Tab ER] 20 meq PO DAILY #30 tab 03/22/17 [Rx] Oxygen 5 l IN CONT 03/25/17 [History] Warfarin [Coumadin] 2.5 mg PO WESA 03/25/17 [History] predniSONE [PredniSONE] See Taper PO DAILY 03/25/17 [History] Ascorbic Acid [Vitamin C] 500 mg PO DAILY #30 tablet 03/29/17 [Rx] Enoxaparin [Lovenox] 50 mg SQ Q12H #8 syringe 03/29/17 [Rx] Loperamide [Imodium] 2 mg PO Q4HR PRN #20 capsule 03/29/17 [Rx] Allergies/Adverse Reactions: 3 Allergy/AdvReac Type Severity Reaction Status Date / Time ceftriaxone Allergy Hives Verified 03/25/17 15:16 ciprofloxacin Allergy Hives Verified 03/25/17 15:16 levofloxacin Allergy Hives Verified 03/25/17 15:16 vancomycin Allergy Rash Verified 03/25/17 15:16 Certification: Further, I certify that my clinical findings support that this patient is homebound (i.e. absences from home require considerable and taxing effort and are for medical reasons or episcopal services or infrequently or short duration when for other reasons) because: Homebound Reason: Patient requires assistance of a person or device to safely leave home Attestation: My signature below is to certify that this patient is under my care and that I, or nurse practitioner, or a physician's legal assistant working with me, has a face-to -face encounter with this patient.
[2017-03-29] MEDS: Acetylcysteine 10% 2 ML INHSOL IH SCH ×2 (15:11→21:33)
[2017-03-29] MEDS ORDERED: Furosemide 20 MG/2 ML VIAL IVP ONE (15:42)
--- NOTE | 2017-03-29 16:55 | Event Note ---
Date of Encounter: 03/29/17 Time of Encounter: 16:35 Patient was supposed to to discharge home with home health today. However, she developed another episode of shortness or breath, which improved after nebulizer. Patient still feel a lot of mucus and chest congestion. Will hold discharge for today, place on respiratory rehabilitation to help the patient expel sputum. Give another extra dose of Lasix 20 mg IV. Reevaluate in a.m.
[2017-03-29] MEDS ORDERED: *HR* Warfarin 2.5 MG TABLET PO ONE (18:00)
[2017-03-29] MEDS: Gabapentin 100 MG CAPSULE PO SCH (20:40)
[2017-03-29] MEDS: *HR* LORazepam 0.5 MG TABLET PO PRN (20:49)
[2017-03-30] MEDS: Ipratropium Neb 0.5 MG NEBULIZER IH SCH ×4 (03:23→21:38)
[2017-03-30] MEDS: Levalbuterol Neb 0.63 MG/3 ML IH SCH ×4 (03:23→21:38)
[2017-03-30] MEDS: Acetylcysteine 10% 2 ML INHSOL IH SCH ×4 (03:24→21:38)
[2017-03-30 06:55] LABS: INR 1.5; Prothrombin Time 16.5 Seconds (9.4-12.1)
[2017-03-30] MEDS ORDERED: Ipratropium/Albuterol Neb 3 ML IH STA (08:45)
[2017-03-30] MEDS: Lactobacillus 1 EACH CAP.SPRINK PO SCH (08:48)
[2017-03-30] MEDS: Magnesium Oxide 400 MG TABLET PO SCH ×2 (08:48→22:30)
[2017-03-30] MEDS: *HR* Amiodarone 200 MG TABLET PO SCH (08:48)
[2017-03-30] MEDS: *HR* Digoxin 0.125 MG TABLET PO SCH (08:48)
[2017-03-30] MEDS: Folic Acid 1 MG TABLET PO SCH (08:48)
[2017-03-30] MEDS: Diltiazem CD (24hr) 180 MG CAPSULE PO SCH (08:48)
[2017-03-30] MEDS: Ascorbic Acid 500 MG TABLET PO SCH (08:49)
[2017-03-30] MEDS: Loratadine 10 MG TABLET PO SCH (08:49)
[2017-03-30] MEDS: predniSONE 20 MG TABLET PO SCH (08:49)
[2017-03-30] MEDS: Furosemide 40 MG TABLET PO SCH ×2 (08:49→17:00)
[2017-03-30] MEDS: Cholecalciferol (D-3) 1,000 UNIT TABLET PO SCH (08:50)
[2017-03-30] MEDS: Vitamin B Complex/Vit C/Vit E 1 EACH TABLET PO SCH (08:50)
[2017-03-30] MEDS: Fluticasone Propionate Nasal 50 MCG/SPRAY BOTTLE NS SCH (08:51)
[2017-03-30] MEDS: Budesonide/Formoterol 160/4.5 MDI IH SCH ×2 (10:03→21:38)
--- NOTE | 2017-03-30 11:35 | Internal Med Progress Note ---
<Steph Richey - Last Filed: 03/30/17 17:08> Date of Encounter: 03/30/17 Time of Encounter: 08:30 - Assessment and plan (1) Dyspnea Current Visit: No Status: Acute Assessment and plan: Started on Mucomyst aerosol yesterday evening Most likely due to stage IV lung cancer and COPD Qualifiers: Dyspnea type: dyspnea on exertion Qualified Code(s): R06.09 - Other forms of dyspnea (2) Nosebleed Current Visit: Yes Status: Resolved Assessment and plan: resolved (3) Supratherapeutic INR Current Visit: Yes Status: Resolved Assessment and plan: resolved (4) Elevated troponin Current Visit: Yes Status: Acute Assessment and plan: Limited echo showed preserved left ventricular systolic function. Troponin elevation does not appear to represent a ACS. Invasive testing not warranted at this time. (5) Leukocytosis Current Visit: Yes Status: Acute Assessment and plan: No signs of infection. Probably reactive. Patient was prescribed high-dose prednisone and on tapered down process, which may account leukocytosis. Continue tapered down prednisone. Qualifiers: Leukocytosis type: unspecified Qualified Code(s): D72.829 - Elevated white blood cell count, unspecified (6) COPD (chronic obstructive pulmonary disease) Current Visit: Yes Status: Chronic Assessment and plan: Continue home medications, on taper down prednisone. Qualifiers: COPD type: unspecified COPD Qualified Code(s): J44.9 - Chronic obstructive pulmonary disease, unspecified (7) Lung cancer Current Visit: Yes Status: Chronic Assessment and plan: Stage iv lung ca. Oncology consult appreciated. Patient will follow-up with oncology as outpatient. Plan to start chemotherapy Qualifiers: Laterality: right Lung location: lower lobe of lung Qualified Code(s): C34.31 - Malignant neoplasm of lower lobe, right bronchus or lung (8) H/O mitral valve replacement with mechanical valve Current Visit: Yes Status: Chronic Assessment and plan: On coumadin, INR goal 2.5-3.5. (9) CAD (coronary artery disease) Current Visit: No Status: Chronic Assessment and plan: No chest pain at this point. Continue home medications. Qualifiers: Coronary Disease-Associated Artery/Lesion type: [place] artery [place] vs. transplanted heart: [place] heart Associated angina: without angina Qualified Code(s): I25.10 - Atherosclerotic heart disease of [place] coronary artery without angina pectoris (10) Diastolic CHF Current Visit: No Status: Chronic Qualifiers: Congestive heart failure chronicity: chronic Qualified Code(s): I50.32 - Chronic diastolic (congestive) heart failure (11) Hypertension Current Visit: No Status: Chronic Assessment and plan: Continue home medications. Qualifiers: Hypertension type: essential hypertension Qualified Code(s): I10 - Essential (primary) hypertension (12) KYLIE (obstructive sleep apnea) Current Visit: No Status: Chronic Assessment and plan: Continue CPAP during night (13) PAF (paroxysmal atrial fibrillation) Current Visit: No Status: Chronic - Subjective Interval history: Patient extremely dyspneic on exam. Unable to complete a sentence without pausing for breath. - Constitutional Vitals: Temp Pulse Resp BP Pulse Ox 97.6 F 65 14 118/73 94 03/30/17 10:39 03/30/17 10:39 03/30/17 10:39 03/30/17 10:39 03/30/17 10:39 General appearance: Present: A&O X 3, pleasant, no acute distress - Head Head exam: Present: atraumatic, normocephalic - Eye Eye exam: Present: PERRL, conjuntiva pink, sclera anicteric Pupils: Present: PERRL - Neck Neck exam general surgery: Present: supple, trachea midline - Respiratory Respiratory exam: Present: rhonchi (coarse rhonchi throughout) - Cardiovascular Cardiovascular exam: Present: irregular rhythm, +S1, +S2, systolic murmur - GI/Abdominal GI/Abdominal exam: Present: normal bowel sounds, soft - Extremities Exam Extremities exam: Present: warm. Absent: pedal edema, tenderness - Neurological Exam Neurological exam: Present: alert. Absent: facial droop, speech deficit - Skin Skin exam: Present: dry, intact, warm Internal Medicine: Result - Labs CBC & Chem 7: 03/29/17 04:02 03/29/17 04:02 - ABG Interpretation ABG results: PT/INR, D-dimer PT 16.5 Seconds (9.4-12.1) H 03/30/17 06:30 - VTE Documentation of Mechanical Device: Intermittent pneumatic compression device Consult Discharge Plan - Plan Referrals: Christoph Hughes DO [Primary Care Provider] - 04/06/17 2:00 pm Prescriptions: Loperamide [Imodium] 2 mg PO Q4HR PRN #20 capsule PRN Reason: Diarrhea Ascorbic Acid [Vitamin C] 500 mg PO DAILY #30 tablet Enoxaparin [Lovenox] 50 mg SQ Q12H #8 syringe <David Hatfieldroel Riley - Last Filed: 03/30/17 18:57> Date of Encounter: 03/30/17 - Assessment and plan (1) Acute on chronic respiratory failure with hypoxemia Current Visit: No Status: Acute (2) CKD (chronic kidney disease) stage 3, GFR 30-59 ml/min Current Visit: Yes Status: Chronic (3) COPD (chronic obstructive pulmonary disease) Current Visit: Yes Status: Chronic Qualifiers: COPD type: unspecified COPD Qualified Code(s): J44.9 - Chronic obstructive pulmonary disease, unspecified (4) Paroxysmal a-fib Current Visit: No Status: Chronic (5) Diastolic heart failure Current Visit: No Status: Chronic Qualifiers: Heart failure chronicity: chronic Qualified Code(s): I50.32 - Chronic diastolic (congestive) heart failure (6) Leukocytosis Current Visit: Yes Status: Acute Qualifiers: Leukocytosis type: unspecified Qualified Code(s): D72.829 - Elevated white blood cell count, unspecified (7) Adenocarcinoma of lung Current Visit: No Status: Chronic Qualifiers: Laterality: right Qualified Code(s): C34.91 - Malignant neoplasm of unspecified part of right bronchus or lung - Constitutional Vitals: Temp Pulse Resp BP Pulse Ox 97.8 F 87 12 127/73 97 03/30/17 16:21 03/30/17 16:21 03/30/17 16:28 03/30/17 16:21 03/30/17 16:28 Internal Medicine: Result - Labs CBC & Chem 7: 03/30/17 17:45 03/30/17 17:45 Labs: Short CBC 03/30/17 Range/Units 17:45 WBC 30.2 H* (4.3-11.1) K/mcL Hgb 9.3 L (11.5-15.4) g/dL Hct 30.4 L (35.3-44.9) % Plt Count 161 (140-400) K/mcL Neutrophils # 29.0 H (1.6-8.9) K/mcL BMP 03/30/17 17:45 Sodium 134 L Potassium 4.2 Chloride 90 L Carbon Dioxide 34 H BUN 23 H Creatinine 0.89 Glucose 192 H Calcium 8.6 - ABG Interpretation ABG results: PT/INR, D-dimer PT 16.5 Seconds (9.4-12.1) H 03/30/17 06:30 - Attending Attestation I examined this patient and my medical decision-making was reviewed with the Resident Physician on 03/30/17. I agree with the documented findings, disposition and treatment plan as described except to the extent set forth below. Ms Dewitt is currently admitted for epistaxis and now has worsening dyspnea. She has significant leukocytosis as well. She remains moderate to high risk due to potential for worsening resp status. Ms. Dewitt is anxious about condition. No fever or chills. Feels more dyspneic today. Has appt with onc tomorrow. Considering going to SNF. Exam Alert. Anxious Heart reg Rhonchi Abd soft I/P 1. Hypoxia 2. Lung cancer Further diagnoses and plan as above.
[2017-03-30] MEDS: *HR* Enoxaparin 60 MG/0.6 ML SYRINGE SQ SCH ×2 (11:44→22:29)
[2017-03-30] MEDS: *HR* HYDROcodone/Acet 5/325 mg TABLET PO PRN ×3 (11:48→22:35)
[2017-03-30 17:49] LABS: Hematocrit 30.4 % (35.3-44.9); Hemoglobin 9.3 g/dL (11.5-15.4); Mean Corpuscular HGB Conc 30.6 g/dL (31.6-35.5); Mean Corpuscular Hemoglobin 25.2 pg (28.0-33.3); Mean Corpuscular Volume 82.4 fL (83.0-100.0); Mean Platelet Volume 9.7 fL (9.4-12.4); Platelet Count 161 K/mcL (140-400); Red Blood Count 3.69 M/mcL (3.82-4.97); Red Cell Distribution Width 18.1 % (11.5-14.5)
[2017-03-30 17:54] LABS: Ionized Calcium 1.04 mmol/L (1.15-1.35)
[2017-03-30] MEDS ORDERED: *HR* Warfarin 2.5 MG TABLET PO ONE (18:00)
[2017-03-30 18:01] LABS: BUN/Creatinine Ratio 26 (6-26); Blood Urea Nitrogen 23 mg/dL (7-20); Calcium 8.6 mg/dL (8.6-10.8); Carbon Dioxide 34 mEq/L (19-29); Chloride 90 mEq/L (98-109); Glucose 192 mg/dL (70-99); Magnesium 2.1 mg/dL (1.6-2.6); Osmolality,Calculated 287 (280-300); Phosphorous 2.6 mg/dL (2.3-4.7); Potassium 4.2 mEq/L (3.5-4.5); Sodium 134 mEq/L (136-145); eGFR For African Americans > 60 (> 60); eGFR For Non-African Americans > 60 (> 60)
[2017-03-30 18:22] LABS: Anisocytosis 1+ (Not Present); Lymphocytes # 0.6 K/mcL (0.6-4.6); Monocytes # 0.6 K/mcL (0.0-1.3); Platelet Estimate Normal (Normal)
[2017-03-30] MEDS: Gabapentin 100 MG CAPSULE PO SCH (22:30)
[2017-03-30] MEDS: *HR* LORazepam 0.5 MG TABLET PO PRN (22:36)
[2017-03-31] MEDS: Ipratropium Neb 0.5 MG NEBULIZER IH SCH ×3 (03:02→16:27)
[2017-03-31] MEDS: Levalbuterol Neb 0.63 MG/3 ML IH SCH ×3 (03:02→16:27)
[2017-03-31] MEDS: Acetylcysteine 10% 2 ML INHSOL IH SCH ×3 (03:03→16:27)
--- NOTE | 2017-03-31 08:25 | Discharge Summary ---
<Naveen Hatfield - Last Filed: 03/31/17 18:56> Date of Encounter: 03/31/17 - Discharge Diagnosis (1) Acute on chronic respiratory failure with hypoxemia Priority: Primary Status: Acute (2) CKD (chronic kidney disease) stage 3, GFR 30-59 ml/min Priority: Secondary Status: Chronic (3) COPD (chronic obstructive pulmonary disease) Status: Chronic Qualifiers: COPD type: unspecified COPD Qualified Code(s): J44.9 - Chronic obstructive pulmonary disease, unspecified (4) Paroxysmal a-fib Priority: Secondary Status: Chronic (5) Diastolic heart failure Priority: Secondary Status: Chronic Qualifiers: Heart failure chronicity: chronic Qualified Code(s): I50.32 - Chronic diastolic (congestive) heart failure (6) Leukocytosis Status: Acute Qualifiers: Leukocytosis type: unspecified Qualified Code(s): D72.829 - Elevated white blood cell count, unspecified (7) Adenocarcinoma of lung Priority: Secondary Status: Chronic Qualifiers: Laterality: right Qualified Code(s): C34.91 - Malignant neoplasm of unspecified part of right bronchus or lung - Discharge Medications Prescriptions: Loperamide [Imodium] 2 mg PO Q4HR PRN #20 capsule PRN Reason: Diarrhea Acetylcysteine 10% 2 ml IH [id number] PRN #120 inhsol PRN Reason: Shortness Of Breath Enoxaparin [Lovenox] 50 mg SQ Q12HR #10 syr Ascorbic Acid [Vitamin C] 500 mg PO DAILY #30 tablet Enoxaparin [Lovenox] 50 mg SQ Q12H #8 syringe Home Medications: Allopurinol [Zyloprim 100 MG] 100 mg PO DAILY 11/24/15 [History] Budesonide/Formoterol 160/4.5 [Symbicort 160/4.5] 2 puff IH BIDR 11/24/15 [ History] Calcium Carbonate [Calcium] 500 mg PO DAILY 11/24/15 [History] Cholecalciferol (D-3) [Vitamin D] 2,000 unit PO DAILY 11/24/15 [History] Fluticasone Propionate Nasal [Flonase] 1 spray NS DAILY 11/24/15 [History] Gabapentin [Neurontin] 200 mg PO HS 11/24/15 [History] Loratadine [Claritin] 10 mg PO DAILY 11/24/15 [History] Montelukast [Singulair] 10 mg PO DAILY 11/24/15 [History] Nitroglycerin [Nitrostat] 0.4 mg SL Q5M PRN 11/24/15 [History] Nortriptyline [Pamelor] 10 mg PO HS 11/24/15 [History] Roflumilast [Daliresp] 500 mcg PO DAILY 11/24/15 [History] Vitamin B Complex [B Complex] 1 tab PO DAILY 11/24/15 [History] Umeclidinium [place] [Incruse Ellipta] 1 puff IH DAILY 12/17/15 [History] Atorvastatin [Lipitor] 10 mg PO HS 01/01/16 [History] Bifidobacterium Infantis [Align] 4 mg PO DAILY 08/25/16 [History] Esomeprazole Magnesium [Nexium] 40 mg PO DAILY #30 capsule. 10/03/16 [Rx] Acetylcysteine 10% 2 ml IH Q8H #90 inhsol 03/02/17 [Rx] Folic Acid 1 mg PO DAILY #30 tablet 03/02/17 [Rx] HYDROcodone/Acet 5/325 mg [[place] 5-325 mg] 1 tab PO Q4HR PRN #14 tab 03/02/17 [ Rx] Amiodarone [Cordarone] 200 mg PO DAILY #30 tab 03/22/17 [Rx] Digoxin [Lanoxin] 0.125 mg PO DAILY #30 tab 03/22/17 [Rx] Diltiazem CD (24hr) [Cardizem CD] 360 mg PO DAILY #60 tab 03/22/17 [Rx] Furosemide [Lasix] 40 mg PO BID #60 tablet 03/22/17 [Rx] GuaiFENesin ER [Mucinex] 1,200 mg PO BID #20 tab 03/22/17 [Rx] Ipratropium Neb [Atrovent Neb] 0.5 mg IH [id number] #120 inh 03/22/17 [Rx] LORazepam [Ativan] 0.5 mg PO TID PRN #20 tab 03/22/17 [Rx] Levalbuterol Neb [Xopenex Neb] 0.63 mg IH [id number] #120 inh 03/22/17 [Rx] Magnesium Oxide [Mag-Ox] 400 mg PO BID #60 tab 03/22/17 [Rx] Potassium Chloride [K-Tab ER] 20 meq PO DAILY #30 tab 03/22/17 [Rx] Oxygen 5 l IN CONT 03/25/17 [History] Warfarin [Coumadin] 2.5 mg PO WESA 03/25/17 [History] predniSONE [PredniSONE] See Taper PO DAILY 03/25/17 [History] Ascorbic Acid [Vitamin C] 500 mg PO DAILY #30 tablet 03/29/17 [Rx] Enoxaparin [Lovenox] 50 mg SQ Q12H #8 syringe 03/29/17 [Rx] Loperamide [Imodium] 2 mg PO Q4HR PRN #20 capsule 03/29/17 [Rx] Acetylcysteine 10% 2 ml IH [id number] PRN #120 inhsol 03/31/17 [Rx] Enoxaparin [Lovenox] 50 mg SQ Q12HR #10 syr 03/31/17 [Rx] Allergies/Adverse Reactions: 3 Allergy/AdvReac Type Severity Reaction Status Date / Time ceftriaxone Allergy Hives Verified 03/25/17 15:16 ciprofloxacin Allergy Hives Verified 03/25/17 15:16 levofloxacin Allergy Hives Verified 03/25/17 15:16 vancomycin Allergy Rash Verified 03/25/17 15:16 Date of admission: 03/25/17 22:33 Primary care physician: Christoph Hughes Consults: 03/25/17 23:40 Consult to Oncology [CONS] Routine Consulting Provider: Oncology [facility] Reason for Consult: PEr request from family, known Lung CA with mets Call Completed: Yes 03/27/17 10:50 Consult to Occupational Therapy [CONS] Routine Comment: Evaluate, develop and implement POC Reason for Consult: Weakness Consult to Physical Therapy [CONS] Routine Comment: Evaluate, develop and implement POC Reason for Consult: Weakness 03/27/17 13:27 Consult to Office Administration [CONS] Routine Reason for SW Consult: family requesting a hospital bed at home. ESTELLA Garzon is aware. 03/28/17 14:13 consult to metallurgical or materials technician [Consult to Nutrition] [CONS] Routine Comment: Consulting Provider: NUTRITION Reason for Dietary Consult: PO Supplementation - Patient Status Disposition: Transfer SNF Condition: Fair - Discharge Instructions Instructions: Pneumonia (DC) Follow Up With: Christoph Hughes DO [Primary Care Provider] - 04/06/17 2:00 pm Hospital course: Ms. Dewitt is a 71 year old female - Time Spent with Patient Total time spent providing and/or coordinating discharge services: 37 min - Constitutional Vitals: Temp Pulse Resp BP Pulse Ox 97.9 F 89 12 130/68 97 03/31/17 11:35 03/31/17 11:35 03/31/17 16:27 03/31/17 11:35 03/31/17 16:27 - Attending Attestation I examined this patient and my medical decision-making was reviewed with the Resident Physician on 03/31/17. I agree with the documented findings, disposition and treatment plan as described except to the extent set forth below. Ms Dewitt has been admitted for epistaxis and dyspnea related to lung cancer. She is now afebrile and vitals stable. She is going to rehab today. Exam alert. Comfortable Heart distant Rhonchi heard Edema present Plan D/C to SNF today. <Steph Richey - Last Filed: 03/31/17 20:41> Date of Encounter: 03/31/17 Time of Encounter: 08:22 - Discharge Diagnosis (1) Dyspnea Priority: Primary Status: Acute Qualifiers: Dyspnea type: dyspnea on exertion Qualified Code(s): R06.09 - Other forms of dyspnea (2) Nosebleed Priority: Primary Status: Resolved (3) Supratherapeutic INR Priority: Primary Status: Resolved (4) Elevated troponin Priority: Secondary Status: Acute (5) Leukocytosis Priority: Secondary Status: Acute Qualifiers: Leukocytosis type: unspecified Qualified Code(s): D72.829 - Elevated white blood cell count, unspecified (6) COPD (chronic obstructive pulmonary disease) Priority: Secondary Status: Chronic Qualifiers: COPD type: unspecified COPD Qualified Code(s): J44.9 - Chronic obstructive pulmonary disease, unspecified (7) Lung cancer Priority: Secondary Status: Chronic Qualifiers: Laterality: right Lung location: lower lobe of lung Qualified Code(s): C34.31 - Malignant neoplasm of lower lobe, right bronchus or lung (8) H/O mitral valve replacement with mechanical valve Priority: Secondary Status: Chronic (9) CAD (coronary artery disease) Priority: Secondary Status: Chronic Qualifiers: Coronary Disease-Associated Artery/Lesion type: [place] artery [place] vs. transplanted heart: [place] heart Associated angina: without angina Qualified Code(s): I25.10 - Atherosclerotic heart disease of [place] coronary artery without angina pectoris (10) Diastolic CHF Priority: Secondary Status: Chronic Qualifiers: Congestive heart failure chronicity: chronic Qualified Code(s): I50.32 - Chronic diastolic (congestive) heart failure (11) Hypertension Priority: Secondary Status: Chronic Qualifiers: Hypertension type: essential hypertension Qualified Code(s): I10 - Essential (primary) hypertension (12) KYLIE (obstructive sleep apnea) Priority: Secondary Status: Chronic (13) PAF (paroxysmal atrial fibrillation) Priority: Secondary Status: Chronic Procedures/tests Complete & Pending: Procedures Performed prior 72 hours Category Date Time Status EV venous imaging UE LT Routine Y 03/28/17 12:51 Completed Date of admission: 03/25/17 22:33 Primary care physician: Christoph Hughes Consults: 03/25/17 23:40 Consult to Oncology [CONS] Routine Consulting Provider: Oncology [facility] Reason for Consult: PEr request from family, known Lung CA with mets Call Completed: Yes 03/27/17 10:50 Consult to Occupational Therapy [CONS] Routine Comment: Evaluate, develop and implement POC Reason for Consult: Weakness Consult to Physical Therapy [CONS] Routine Comment: Evaluate, develop and implement POC Reason for Consult: Weakness 03/27/17 13:27 Consult to Office Administration [CONS] Routine Reason for SW Consult: family requesting a hospital bed at home. ESTELLA Garzon is aware. 03/28/17 14:13 consult to metallurgical or materials technician [Consult to Nutrition] [CONS] Routine Comment: Consulting Provider: NUTRITION Reason for Dietary Consult: PO Supplementation Discharging clinician: Steph Richey Anticipated date of discharge: 03/31/17 - Patient Status Functional capacity at discharge: uses cane/walker Overall status at discharge: patient is progressing back to baseline - Diet and Activity Diet: low salt diet Interval History: Patient doing well this morning. Still with some dyspnea at rest. Hospital course: Ms. Dewitt is a 71 year old female admitted to the hospital for supratherapeutic INR and discussed cysts which have resolved spontaneously before she came to the hospital. She was given vitamin K during this admission. Her hospital stay was lengthened due to the development of dyspnea on the day that she would have been discharged. She has a past medical history of stage IV lung cancer and COPD and a recent hospital discharge for pneumonia and COPD exacerbation. She chronically uses 5 L of supplemental oxygen via nasal cannula at home. Mucomyst was added to her breathing regimen and wash was inpatient. She was discharged to rehabilitation at [facility]. - Time Spent with Patient Total time spent providing and/or coordinating discharge services: - Constitutional Vitals: Temp Pulse Resp BP Pulse Ox 98.0 F 85 12 119/60 96 03/31/17 07:01 03/31/17 07:01 03/31/17 07:01 03/31/17 07:01 03/31/17 07:01 General appearance: Present: A&O X 3, pleasant, no acute distress - Head Head exam: Present: atraumatic, normocephalic - Eye Eye exam: Present: PERRL, conjuntiva pink, sclera anicteric Pupils: Present: PERRL - Neck Neck exam general surgery: Present: supple, trachea midline - Respiratory Additional comments: Very coarse breath sounds throughout - Cardiovascular Cardiovascular exam: Present: irregular rhythm, +S1, +S2, systolic murmur - GI/Abdominal GI/Abdominal exam: Present: normal bowel sounds, soft. Absent: tenderness - Extremities Exam Extremities exam: Present: pedal edema (trace), warm. Absent: tenderness - Neurological Exam Neurological exam: Present: alert. Absent: facial droop, speech deficit - Skin Skin exam: Present: dry, intact, warm - VTE Documentation of Mechanical Device: Intermittent pneumatic compression device
--- NOTE | 2017-03-31 08:42 | Physician Discharge Referral ---
ExtendedCare Referral Info Transfer To: [facility] Provider in Charge after Transfer: Other Institutional Level of Care: Skilled - Diagnosis (1) Dyspnea Priority: Primary Status: Acute (2) Nosebleed Priority: Secondary Status: Resolved (3) Supratherapeutic INR Priority: Secondary Status: Resolved (4) Elevated troponin Priority: Secondary Status: Acute (5) Leukocytosis Priority: Secondary Status: Acute (6) COPD (chronic obstructive pulmonary disease) Priority: Secondary Status: Chronic (7) Lung cancer Priority: Secondary Status: Chronic (8) H/O mitral valve replacement with mechanical valve Priority: Secondary Status: Chronic (9) CAD (coronary artery disease) Priority: Secondary Status: Chronic (10) Diastolic CHF Priority: Secondary Status: Chronic (11) Hypertension Priority: Secondary Status: Chronic (12) KYLIE (obstructive sleep apnea) Priority: Secondary Status: Chronic (13) PAF (paroxysmal atrial fibrillation) Priority: Secondary Status: Chronic - Transfer Medications Prescriptions: Loperamide [Imodium] 2 mg PO Q4HR PRN #20 capsule PRN Reason: Diarrhea Acetylcysteine 10% 2 ml IH [id number] PRN #120 inhsol PRN Reason: Shortness Of Breath Enoxaparin [Lovenox] 50 mg SQ Q12HR #10 syr Ascorbic Acid [Vitamin C] 500 mg PO DAILY #30 tablet Enoxaparin [Lovenox] 50 mg SQ Q12H #8 syringe Home Medications: Allopurinol [Zyloprim 100 MG] 100 mg PO DAILY 11/24/15 [History] Budesonide/Formoterol 160/4.5 [Symbicort 160/4.5] 2 puff IH BIDR 11/24/15 [ History] Calcium Carbonate [Calcium] 500 mg PO DAILY 11/24/15 [History] Cholecalciferol (D-3) [Vitamin D] 2,000 unit PO DAILY 11/24/15 [History] Fluticasone Propionate Nasal [Flonase] 1 spray NS DAILY 11/24/15 [History] Gabapentin [Neurontin] 200 mg PO HS 11/24/15 [History] Loratadine [Claritin] 10 mg PO DAILY 11/24/15 [History] Montelukast [Singulair] 10 mg PO DAILY 11/24/15 [History] Nitroglycerin [Nitrostat] 0.4 mg SL Q5M PRN 11/24/15 [History] Nortriptyline [Pamelor] 10 mg PO HS 11/24/15 [History] Roflumilast [Daliresp] 500 mcg PO DAILY 11/24/15 [History] Vitamin B Complex [B Complex] 1 tab PO DAILY 11/24/15 [History] Umeclidinium [place] [Incruse Ellipta] 1 puff IH DAILY 12/17/15 [History] Atorvastatin [Lipitor] 10 mg PO HS 01/01/16 [History] Bifidobacterium Infantis [Align] 4 mg PO DAILY 08/25/16 [History] Esomeprazole Magnesium [Nexium] 40 mg PO DAILY #30 capsule. 10/03/16 [Rx] Acetylcysteine 10% 2 ml IH Q8H #90 inhsol 03/02/17 [Rx] Folic Acid 1 mg PO DAILY #30 tablet 03/02/17 [Rx] HYDROcodone/Acet 5/325 mg [[place] 5-325 mg] 1 tab PO Q4HR PRN #14 tab 03/02/17 [ Rx] Amiodarone [Cordarone] 200 mg PO DAILY #30 tab 03/22/17 [Rx] Digoxin [Lanoxin] 0.125 mg PO DAILY #30 tab 03/22/17 [Rx] Diltiazem CD (24hr) [Cardizem CD] 360 mg PO DAILY #60 tab 03/22/17 [Rx] Furosemide [Lasix] 40 mg PO BID #60 tablet 03/22/17 [Rx] GuaiFENesin ER [Mucinex] 1,200 mg PO BID #20 tab 03/22/17 [Rx] Ipratropium Neb [Atrovent Neb] 0.5 mg IH [id number] #120 inh 03/22/17 [Rx] LORazepam [Ativan] 0.5 mg PO TID PRN #20 tab 03/22/17 [Rx] Levalbuterol Neb [Xopenex Neb] 0.63 mg IH [id number] #120 inh 03/22/17 [Rx] Magnesium Oxide [Mag-Ox] 400 mg PO BID #60 tab 03/22/17 [Rx] Potassium Chloride [K-Tab ER] 20 meq PO DAILY #30 tab 03/22/17 [Rx] Oxygen 5 l IN CONT 03/25/17 [History] Warfarin [Coumadin] 2.5 mg PO WESA 03/25/17 [History] predniSONE [PredniSONE] See Taper PO DAILY 03/25/17 [History] Ascorbic Acid [Vitamin C] 500 mg PO DAILY #30 tablet 03/29/17 [Rx] Enoxaparin [Lovenox] 50 mg SQ Q12H #8 syringe 03/29/17 [Rx] Loperamide [Imodium] 2 mg PO Q4HR PRN #20 capsule 03/29/17 [Rx] Acetylcysteine 10% 2 ml IH [id number] PRN #120 inhsol 03/31/17 [Rx] Enoxaparin [Lovenox] 50 mg SQ Q12HR #10 syr 03/31/17 [Rx] Allergies/Adverse Reactions: 3 Allergy/AdvReac Type Severity Reaction Status Date / Time ceftriaxone Allergy Hives Verified 03/25/17 15:16 ciprofloxacin Allergy Hives Verified 03/25/17 15:16 levofloxacin Allergy Hives Verified 03/25/17 15:16 vancomycin Allergy Rash Verified 03/25/17 15:16 - Respiratory Orders Oxygen / L per min (5) Smoking Cessation: Smoking cessation has been advised. For more information, call the [employer] Quit Line at 3-427-DHZI-NOW. - Lab Orders Lab Orders: Other (include drug levels w/frequency) (INR daily) - Advance Directives Code Status: DNR-Arrest/Don't Intubate - Mobility Orders Chair, Ambulate (with assistance) - Rehabiliation Orders Rehab Potential: Fair Rehab Orders: Evaluation for Physical Therapy, Evaluation for Occupational Therapy - Diet Orders Cardiac CERTIFICATION: I certify that the transfer of the above named patient to an Extended Care Facility is necessary for the continuing treatment of the diagnosis listed. The above information is true and accurate reflection of patient's current condition. Confidential - Redisclosure prohibited without a patient's written consent.
[2017-03-31] MEDS: *HR* Digoxin 0.125 MG TABLET PO SCH (09:44)
[2017-03-31] MEDS: Diltiazem CD (24hr) 180 MG CAPSULE PO SCH (09:44)
[2017-03-31] MEDS: Vitamin B Complex/Vit C/Vit E 1 EACH TABLET PO SCH (09:46)
[2017-03-31] MEDS: predniSONE 20 MG TABLET PO SCH (09:46)
[2017-03-31] MEDS: Furosemide 40 MG TABLET PO SCH (09:46)
[2017-03-31] MEDS: *HR* Amiodarone 200 MG TABLET PO SCH (09:46)
[2017-03-31] MEDS: Cholecalciferol (D-3) 1,000 UNIT TABLET PO SCH (09:46)
[2017-03-31] MEDS: Magnesium Oxide 400 MG TABLET PO SCH (09:47)
[2017-03-31] MEDS: Folic Acid 1 MG TABLET PO SCH (09:47)
[2017-03-31] MEDS: Fluticasone Propionate Nasal 50 MCG/SPRAY BOTTLE NS SCH (09:47)
[2017-03-31] MEDS: Ascorbic Acid 500 MG TABLET PO SCH (09:47)
[2017-03-31] MEDS: Lactobacillus 1 EACH CAP.SPRINK PO SCH (09:47)
[2017-03-31] MEDS: Loratadine 10 MG TABLET PO SCH (09:47)
[2017-03-31] MEDS: Budesonide/Formoterol 160/4.5 MDI IH SCH (10:47)
[2017-03-31 11:34] LABS: INR 1.5; Prothrombin Time 15.9 Seconds (9.4-12.1)
[2017-03-31 11:38] VITALS: BP 130/68
[2017-03-31] MEDS ORDERED: FLUARIX QUAD 2017-18 36MOS UP/PF 0.5 ML SYRINGE IM ONE (11:41)
[2017-03-31] MEDS: *HR* HYDROcodone/Acet 5/325 mg TABLET PO PRN (15:20)
[2017-03-31] MEDS: *HR* Enoxaparin 60 MG/0.6 ML SYRINGE SQ SCH (15:25)
[2017-03-31] MEDS: *HR* LORazepam 0.5 MG TABLET PO PRN (16:28)
[2017-03-31] MEDS ORDERED: *HR* Warfarin 2.5 MG TABLET PO SCH (18:00)
== END 2017-03-31 16:35 | DRG 150 ==
LOC: 2NENU 14:53 → EMEROO 14:53 → 2NENU 20:56 → SUATTDRO 22:33
PROVIDERS: ADMIT Internal Medicine; ATTEND Internal Medicine

== ENCOUNTER 2017-04-08 12:14 | Observation (INO) ==
--- NOTE | 2017-04-08 12:17 | Emergency Department Note ---
Disposition Clinical Impression: Palpitations, Rapid atrial fibrillation, Anemia, Elevated troponin I level Disposition: Admitted As Inpatient Condition: Fair General Adult HPI - General Chief complaint: ED Arrhythmia/Palpitations Stated complaint: palpitations Time Seen by Provider: 04/08/17 12:16 - Related Data Home Medications Medication Instructions Recorded Confirmed Allopurinol [Zyloprim 100 MG] 100 mg PO DAILY 11/24/15 04/08/17 Budesonide/Formoterol 160/4.5 2 puff IH BIDR 11/24/15 04/08/17 [Symbicort 160/4.5] Calcium Carbonate [Calcium] 500 mg PO DAILY 11/24/15 04/08/17 Cholecalciferol (D-3) [Vitamin D] 2,000 unit PO DAILY 11/24/15 04/08/17 Fluticasone Propionate Nasal 1 spray NS DAILY 11/24/15 04/08/17 [Flonase] Gabapentin [Neurontin] 200 mg PO HS 11/24/15 04/08/17 Loratadine [Claritin] 10 mg PO DAILY 11/24/15 04/08/17 Montelukast [Singulair] 10 mg PO DAILY 11/24/15 04/08/17 Nitroglycerin [Nitrostat] 0.4 mg SL Q5M PRN 11/24/15 04/08/17 Nortriptyline [Pamelor] 10 mg PO HS 11/24/15 04/08/17 Roflumilast [Daliresp] 500 mcg PO DAILY 11/24/15 04/08/17 Vitamin B Complex [B Complex] 1 tab PO DAILY 11/24/15 04/08/17 Umeclidinium [place] [Incruse 1 puff IH DAILY 12/17/15 04/08/17 Ellipta] Atorvastatin [Lipitor] 10 mg PO HS 01/01/16 04/08/17 Bifidobacterium Infantis [Align] 4 mg PO DAILY 08/25/16 04/08/17 Oxygen 5 l IN CONT 03/25/17 04/08/17 Warfarin [Coumadin] 2.5 mg PO WESA 03/25/17 04/08/17 Acetylcysteine 10% 2 ml IH Q6H 04/08/17 04/08/17 Ipratropium Neb [Atrovent Neb] 0.5 mg IH [id number] PRN 04/08/17 04/08/17 Warfarin [Coumadin] 5 mg PO SUMOTU 04/08/17 04/08/17 predniSONE [PredniSONE] 30 mg PO DAILY 04/08/17 04/08/17 Previous Rx's Medication Instructions Recorded Esomeprazole Magnesium [Nexium] 40 mg PO DAILY #30 capsule. 10/03/16 Folic Acid 1 mg PO DAILY #30 tablet 03/02/17 HYDROcodone/Acet 5/325 mg [[place] 1 tab PO Q4HR PRN #14 tab 03/02/17 5-325 mg] Amiodarone [Cordarone] 200 mg PO DAILY #30 tab 03/22/17 Digoxin [Lanoxin] 0.125 mg PO DAILY #30 tab 03/22/17 Diltiazem CD (24hr) [Cardizem CD] 360 mg PO DAILY #60 tab 03/22/17 Furosemide [Lasix] 40 mg PO BID #60 tablet 03/22/17 GuaiFENesin ER [Mucinex] 1,200 mg PO BID #20 tab 03/22/17 LORazepam [Ativan] 0.5 mg PO TID PRN #20 tab 03/22/17 Levalbuterol Neb [Xopenex Neb] 0.63 mg IH [id number] #120 inh 03/22/17 Magnesium Oxide [Mag-Ox] 400 mg PO BID #60 tab 03/22/17 Potassium Chloride [K-Tab ER] 20 meq PO DAILY #30 tab 03/22/17 Ascorbic Acid [Vitamin C] 500 mg PO DAILY #30 tablet 03/29/17 Loperamide [Imodium] 2 mg PO Q4HR PRN #20 capsule 03/29/17 HYDROcodone/Acet 5/325 mg [[place] 1 tab PO Q4H PRN #20 tab 04/09/17 5-325 mg] LORazepam [Lorazepam] 0.5 - 1 mg PO Q4-6H PRN #30 mls 04/09/17 Morphine Oral CONC [Roxanol] 0.25 - 0.5 ml PO Q4H PRN #30 ml 04/09/17 Allergies Allergy/AdvReac Type Severity Reaction Status Date / Time ceftriaxone Allergy Hives Verified 03/25/17 15:16 ciprofloxacin Allergy Hives Verified 03/25/17 15:16 levofloxacin Allergy Hives Verified 03/25/17 15:16 vancomycin Allergy Rash Verified 03/25/17 15:16 Past Medical History - Past Medical History Medical history: Reports: arthritis, atrial fibrillation, cancer, cardiomyopathy , CHF, COPD, fibromyalgia, hypertension, myocardial infarction, osteoporosis, RA , other Surgical history: Reports: angioplasty/stent, cholecystectomy, coronary bypass ( CABG), heart valve replacement (Mitral valve), orthopedic, other Psychiatric history: Reports: no psych history - Social History Smoking Status: Former smoker Smokeless Tobacco Status: No Alcohol use: Reports: none Drug use: Reports: none Course Vital Signs Temperature 98.2 F 04/08/17 12:15 Pulse Rate 140 04/08/17 12:15 Respiratory Rate 24 04/08/17 12:15 Blood Pressure 124/81 04/08/17 12:15 O2 Sat by Pulse Oximetry 94 04/08/17 12:15 Temperature 97.9 F 04/09/17 11:26 Pulse Rate 93 04/09/17 11:26 Respiratory Rate 16 04/09/17 11:26 Blood Pressure 125/76 04/09/17 11:26 O2 Sat by Pulse Oximetry 97 04/09/17 11:26 Oxygen Delivery Oxygen Delivery Nasal Cannula Medical Decision Making - Lab Data Result diagrams: 04/09/17 01:45 04/09/17 01:45 Lab Results 04/08/17 04/08/17 04/08/17 Range/Units 13:20 13:20 13:20 WBC 9.6 (4.3-11.1) K/mcL RBC 3.50 L (3.82-4.97) M/mcL Hgb 8.6 L (11.5-15.4) g/dL Hct 29.1 L (35.3-44.9) % MCV 83.1 (83.0-100.0) fL MCH 24.6 L (28.0-33.3) pg MCHC 29.6 L (31.6-35.5) g/dL RDW 19.0 H (11.5-14.5) % Plt Count 176 (140-400) K/mcL MPV 9.0 L (9.4-12.4) fL Immature Gran % 1.6 (0-4) % Seg Neutrophils % 93.2 % Lymphocytes % 2.2 % Monocytes % 2.9 % Eosinophils % 0.0 % Basophils % 0.1 % Neutrophils # 9.0 H (1.6-8.9) K/mcL Lymphocytes # 0.2 L (0.6-4.6) K/mcL Monocytes # 0.3 (0.0-1.3) K/mcL Eosinophils # 0.0 (0.0-0.6) K/mcL Basophils # 0.0 (0.0-0.2) K/mcL Nucleated RBCs/100 WBC 0.4 H (0) /100 WBC PT 37.7 H (9.4-12.1) Seconds INR 3.4 Sodium 137 (136-145) mEq/L Potassium 4.1 (3.5-4.5) mEq/L Chloride 99 (98-109) mEq/L Carbon Dioxide 31 H (19-29) mEq/L BUN 19 (7-20) mg/dL Creatinine 0.69 (0.57-1.11) mg/dL Est GFR ( Amer) > 60 (> 60) Est GFR (Non-Af Amer) > 60 (> 60) BUN/Creatinine Ratio 28 H (6-26) Glucose 129 H (70-99) mg/dL Calculated Osmolality 288 (280-300) Calcium 8.3 L (8.6-10.8) mg/dL Magnesium 1.9 (1.6-2.6) mg/dL Total Bilirubin 0.3 (0.2-1.2) mg/dL AST 29 (5-34) Units/L ALT 38 (0-55) Units/L Alkaline Phosphatase 255 H (38-126) Units/L Troponin I (0-0.03) ng/mL Serum Total Protein 5.4 L (6.0-8.3) g/dL Albumin 2.3 L (3.5-5.0) g/dL Globulin 3.1 (2.4-3.5) g/dL Albumin/Globulin Ratio 0.7 L (1.1-2.2) Digoxin (0.8-2.0) ng/mL 04/08/17 04/08/17 Range/Units 13:20 13:20 WBC (4.3-11.1) K/mcL RBC (3.82-4.97) M/mcL Hgb (11.5-15.4) g/dL Hct (35.3-44.9) % MCV (83.0-100.0) fL MCH (28.0-33.3) pg MCHC (31.6-35.5) g/dL RDW (11.5-14.5) % Plt Count (140-400) K/mcL MPV (9.4-12.4) fL Immature Gran % (0-4) % Seg Neutrophils % % Lymphocytes % % Monocytes % % Eosinophils % % Basophils % % Neutrophils # (1.6-8.9) K/mcL Lymphocytes # (0.6-4.6) K/mcL Monocytes # (0.0-1.3) K/mcL Eosinophils # (0.0-0.6) K/mcL Basophils # (0.0-0.2) K/mcL Nucleated RBCs/100 WBC (0) /100 WBC PT (9.4-12.1) Seconds INR Sodium (136-145) mEq/L Potassium (3.5-4.5) mEq/L Chloride (98-109) mEq/L Carbon Dioxide (19-29) mEq/L BUN (7-20) mg/dL Creatinine (0.57-1.11) mg/dL Est GFR ( Amer) (> 60) Est GFR (Non-Af Amer) (> 60) BUN/Creatinine Ratio (6-26) Glucose (70-99) mg/dL Calculated Osmolality (280-300) Calcium (8.6-10.8) mg/dL Magnesium (1.6-2.6) mg/dL Total Bilirubin (0.2-1.2) mg/dL AST (5-34) Units/L ALT (0-55) Units/L Alkaline Phosphatase (38-126) Units/L Troponin I 0.05 H* (0-0.03) ng/mL Serum Total Protein (6.0-8.3) g/dL Albumin (3.5-5.0) g/dL Globulin (2.4-3.5) g/dL Albumin/Globulin Ratio (1.1-2.2) Digoxin 1.8 (0.8-2.0) ng/mL Critical Care Time Critical Care Time: Yes Total Critical Care Time: 30 Attestation: Atrial flutter with RVR requiring Cardizem drip Attestation Statement - Attestation Attestation: I examined this patient and my medical decision-making was reviewed with the Resident Physician. I agree with the documented findings, disposition and treatment plan as described except to the extent set forth below. Face to face time provided in conjunction with the resident physician Patient arrives by ambulance complaining of palpitations. History of atrial fibrillation. Also has a history of advanced cancer. Appears in no acute distress on exam. EKG shows a regular narrow complex tachycardia. Suspected atrial flutter with 2 -1 block. IV Cardizem initiated. Rate controlled at time of reassessment.
--- NOTE | 2017-04-08 12:37 | Emergency Department Note ---
Disposition Clinical Impression: Palpitations, Rapid atrial fibrillation, Elevated troponin I level Anemia Qualifiers: Anemia type: unspecified type Qualified Code(s): D64.9 - Anemia, unspecified Disposition: Admitted As Inpatient Condition: Fair Time of Disposition: 14:41 Arrhythmia/Palpitations HPI - General Chief Complaint: ED Arrhythmia/Palpitations Stated Complaint: palpitations Time Seen by Provider: 04/08/17 12:16 Source: patient, EMS Limitations: no limitations Nursing Notes Reviewed: Yes Vital Signs Reviewed: Yes - History of Present Illness HPI Narrative: 71-year-old female history of A. fib, lung cancer, CAD, hypertension, hyperlipidemia mitral valve [facility] replacement, on Coumadin, amiodarone, digoxin, diltiazem, follows up with [facility], presents with palpitations since this morning. Patient was recently in the hospital week ago for palpitations, left upper extremity DVT, subtherapeutic Coumadin. Patient states she has no chest pain, but feels her heart racing. Patient states that her INR was 2.5 yesterday, and since she was put on amiodarone it is been very labile. Patient had multiple admissions in the past. She states she has some generalized weakness but denies any pain. +hemoptysis intermittent she attributes to her Lung CA Patient denies any productive cough dysuria or hematuria but has been prone to UTIs in the past. Pt Subjective Complaint: "heart racing", palpitations, atrial fibrillation Onset (ago): hour(s) Duration: intermittent Severity: mild Context: occurred during rest Arrhythmia History: atrial fibrillation Associated symptoms: Denies: chest pain, shortness of breath, syncope, near- syncope, diaphoresis, cough - Related Data Home Medications Medication Instructions Recorded Confirmed Allopurinol [Zyloprim 100 MG] 100 mg PO DAILY 11/24/15 04/08/17 Budesonide/Formoterol 160/4.5 2 puff IH BIDR 11/24/15 04/08/17 [Symbicort 160/4.5] Calcium Carbonate [Calcium] 500 mg PO DAILY 11/24/15 04/08/17 Cholecalciferol (D-3) [Vitamin D] 2,000 unit PO DAILY 11/24/15 04/08/17 Fluticasone Propionate Nasal 1 spray NS DAILY 11/24/15 04/08/17 [Flonase] Gabapentin [Neurontin] 200 mg PO HS 11/24/15 04/08/17 Loratadine [Claritin] 10 mg PO DAILY 11/24/15 04/08/17 Montelukast [Singulair] 10 mg PO DAILY 11/24/15 04/08/17 Nitroglycerin [Nitrostat] 0.4 mg SL Q5M PRN 11/24/15 04/08/17 Nortriptyline [Pamelor] 10 mg PO HS 11/24/15 04/08/17 Roflumilast [Daliresp] 500 mcg PO DAILY 11/24/15 04/08/17 Vitamin B Complex [B Complex] 1 tab PO DAILY 11/24/15 04/08/17 Umeclidinium [place] [Incruse 1 puff IH DAILY 12/17/15 04/08/17 Ellipta] Atorvastatin [Lipitor] 10 mg PO HS 01/01/16 04/08/17 Bifidobacterium Infantis [Align] 4 mg PO DAILY 08/25/16 04/08/17 Oxygen 5 l IN CONT 03/25/17 04/08/17 Warfarin [Coumadin] 2.5 mg PO WESA 03/25/17 04/08/17 Acetylcysteine 10% 2 ml IH Q6H 04/08/17 04/08/17 Ipratropium Neb [Atrovent Neb] 0.5 mg IH [id number] PRN 04/08/17 04/08/17 Warfarin [Coumadin] 5 mg PO SUMOTU 04/08/17 04/08/17 predniSONE [PredniSONE] 30 mg PO DAILY 04/08/17 04/08/17 Previous Rx's Medication Instructions Recorded Esomeprazole Magnesium [Nexium] 40 mg PO DAILY #30 capsule. 10/03/16 Folic Acid 1 mg PO DAILY #30 tablet 03/02/17 HYDROcodone/Acet 5/325 mg [[place] 1 tab PO Q4HR PRN #14 tab 03/02/17 5-325 mg] Amiodarone [Cordarone] 200 mg PO DAILY #30 tab 03/22/17 Digoxin [Lanoxin] 0.125 mg PO DAILY #30 tab 03/22/17 Diltiazem CD (24hr) [Cardizem CD] 360 mg PO DAILY #60 tab 03/22/17 Furosemide [Lasix] 40 mg PO BID #60 tablet 03/22/17 GuaiFENesin ER [Mucinex] 1,200 mg PO BID #20 tab 03/22/17 LORazepam [Ativan] 0.5 mg PO TID PRN #20 tab 03/22/17 Levalbuterol Neb [Xopenex Neb] 0.63 mg IH [id number] #120 inh 03/22/17 Magnesium Oxide [Mag-Ox] 400 mg PO BID #60 tab 03/22/17 Potassium Chloride [K-Tab ER] 20 meq PO DAILY #30 tab 03/22/17 Ascorbic Acid [Vitamin C] 500 mg PO DAILY #30 tablet 03/29/17 Loperamide [Imodium] 2 mg PO Q4HR PRN #20 capsule 03/29/17 Allergies Allergy/AdvReac Type Severity Reaction Status Date / Time ceftriaxone Allergy Hives Verified 03/25/17 15:16 ciprofloxacin Allergy Hives Verified 03/25/17 15:16 levofloxacin Allergy Hives Verified 03/25/17 15:16 vancomycin Allergy Rash Verified 03/25/17 15:16 All systems ED: reviewed and negative except as stated. Review of Systems: As Per HPI Constitutional: Reports: as per HPI, weakness Eyes: Denies: eye pain ENT ED: Denies: ear pain Cardiovascular: Reports: as per HPI, palpitations, dyspnea on exertion. Denies : chest pain, syncope Respiratory: Denies: cough, dyspnea Gastrointestinal: Denies: abdominal pain, nausea, vomiting, melena Genitourinary: Denies: urgency Musculoskeletal: Denies: back pain, neck pain Integumentary: Denies: rash Neurological: Denies: headache Past Medical History - Past Medical History Attestation: Yes The following information was validated with the patient. Source: patient Medical history: Reports: arthritis, atrial fibrillation, cancer, cardiomyopathy , CHF, COPD, fibromyalgia, hypertension, myocardial infarction, osteoporosis, RA , other Surgical history: Reports: angioplasty/stent, cholecystectomy, coronary bypass ( CABG), heart valve replacement (Mitral valve), orthopedic, other Psychiatric history: Reports: no psych history - Social History Smoking Status: Former smoker Smokeless Tobacco Status: No Alcohol use: Reports: none Drug use: Reports: none Physical Exam Constitutional: Shaky frail elderly female appears older than stated age, irregularly irregular rhythm in the 140s Eyes: Tearful, PERRL, sclera anicteric ENT & Mouth: Mucous membranes dry Neck: normal inspection, neck is supple Resp: CTA bilaterally, no resp distress CV: Irregularly irregular rhythm ejection click systolic murmur left sternal border, +2 pitting edema GI: normal inspection, soft, no guarding or rigidity Neuro: A&O3, CNII-XII grossly intact, STEPHEN Skin: on limited exam, , seeping lesions to left upper extremity consistent with venous stasis dermatitis bilateral lower extremity with erythema this maculopapular rash poor skin turgor - General Limitations: no limitations General appearance: alert Course Course Narrative: 71-year-old female with new onset atrial fibrillation will start diltiazem drip check basic lab work EKG shows atrial fibrillation 140s plan for admission after labs and rate control - Reevaluation(s) Reevaluation #1: Patient's rate improved to 90s, repeat EKG shows sinus rhythm she still has diffuse ST segment depressions in her precordial leads this was seen but not as prominent on her previous EKGs, given lung cancer, with some hemoptysis, and some intermittent hemorrhoids in the past, at this time we will defer anticoagulation, Dmitri has a therapeutic INR 3.4 with a mechanical valve and history of upper extremity DVT, she feels better she denies any chest pain, plan for admission for palpitations elevated troponin anemia, Dr Buck accepting Time: 14:41 Vital Signs Temperature 98.2 F 04/08/17 12:15 Pulse Rate 140 04/08/17 12:15 Respiratory Rate 24 04/08/17 12:15 Blood Pressure 124/81 04/08/17 12:15 O2 Sat by Pulse Oximetry 94 04/08/17 12:15 Temperature 98.2 F 04/08/17 12:15 Pulse Rate 106 04/08/17 12:47 Respiratory Rate 24 04/08/17 12:15 Blood Pressure 118/62 04/08/17 13:20 O2 Sat by Pulse Oximetry 97 04/08/17 12:47 Oxygen Delivery Oxygen Delivery Nasal Cannula Arrhythmia/Palpitations - Differential Diagnosis Differential Diagnosis: Likely: palpitations, artial arrhythmia - Medical Records Medical records reviewed: Yes I reviewed the patient's medical records. - Lab Data Lab results reviewed: Yes I reviewed the patient's lab results. Result diagrams: 04/08/17 13:20 10/05/17 13:20 Lab Results 04/08/17 04/08/17 04/08/17 Range/Units 13:20 13:20 13:20 WBC 9.6 (4.3-11.1) K/mcL RBC 3.50 L (3.82-4.97) M/mcL Hgb 8.6 L (11.5-15.4) g/dL Hct 29.1 L (35.3-44.9) % MCV 83.1 (83.0-100.0) fL MCH 24.6 L (28.0-33.3) pg MCHC 29.6 L (31.6-35.5) g/dL RDW 19.0 H (11.5-14.5) % Plt Count 176 (140-400) K/mcL MPV 9.0 L (9.4-12.4) fL Immature Gran % 1.6 (0-4) % Seg Neutrophils % 93.2 % Lymphocytes % 2.2 % Monocytes % 2.9 % Eosinophils % 0.0 % Basophils % 0.1 % Neutrophils # 9.0 H (1.6-8.9) K/mcL Lymphocytes # 0.2 L (0.6-4.6) K/mcL Monocytes # 0.3 (0.0-1.3) K/mcL Eosinophils # 0.0 (0.0-0.6) K/mcL Basophils # 0.0 (0.0-0.2) K/mcL Nucleated RBCs/100 WBC 0.4 H (0) /100 WBC PT 37.7 H (9.4-12.1) Seconds INR 3.4 Sodium 137 (136-145) mEq/L Potassium 4.1 (3.5-4.5) mEq/L Chloride 99 (98-109) mEq/L Carbon Dioxide 31 H (19-29) mEq/L BUN 19 (7-20) mg/dL Creatinine 0.69 (0.57-1.11) mg/dL Est GFR ( Amer) > 60 (> 60) Est GFR (Non-Af Amer) > 60 (> 60) BUN/Creatinine Ratio 28 H (6-26) Glucose 129 H (70-99) mg/dL Calculated Osmolality 288 (280-300) Calcium 8.3 L (8.6-10.8) mg/dL Total Bilirubin 0.3 (0.2-1.2) mg/dL AST 29 (5-34) Units/L ALT 38 (0-55) Units/L Alkaline Phosphatase 255 H (38-126) Units/L Troponin I (0-0.03) ng/mL Serum Total Protein 5.4 L (6.0-8.3) g/dL Albumin 2.3 L (3.5-5.0) g/dL Globulin 3.1 (2.4-3.5) g/dL Albumin/Globulin Ratio 0.7 L (1.1-2.2) Digoxin (0.8-2.0) ng/mL 04/08/17 04/08/17 Range/Units 13:20 13:20 WBC (4.3-11.1) K/mcL RBC (3.82-4.97) M/mcL Hgb (11.5-15.4) g/dL Hct (35.3-44.9) % MCV (83.0-100.0) fL MCH (28.0-33.3) pg MCHC (31.6-35.5) g/dL RDW (11.5-14.5) % Plt Count (140-400) K/mcL MPV (9.4-12.4) fL Immature Gran % (0-4) % Seg Neutrophils % % Lymphocytes % % Monocytes % % Eosinophils % % Basophils % % Neutrophils # (1.6-8.9) K/mcL Lymphocytes # (0.6-4.6) K/mcL Monocytes # (0.0-1.3) K/mcL Eosinophils # (0.0-0.6) K/mcL Basophils # (0.0-0.2) K/mcL Nucleated RBCs/100 WBC (0) /100 WBC PT (9.4-12.1) Seconds INR Sodium (136-145) mEq/L Potassium (3.5-4.5) mEq/L Chloride (98-109) mEq/L Carbon Dioxide (19-29) mEq/L BUN (7-20) mg/dL Creatinine (0.57-1.11) mg/dL Est GFR ( Amer) (> 60) Est GFR (Non-Af Amer) (> 60) BUN/Creatinine Ratio (6-26) Glucose (70-99) mg/dL Calculated Osmolality (280-300) Calcium (8.6-10.8) mg/dL Total Bilirubin (0.2-1.2) mg/dL AST (5-34) Units/L ALT (0-55) Units/L Alkaline Phosphatase (38-126) Units/L Troponin I 0.05 H* (0-0.03) ng/mL Serum Total Protein (6.0-8.3) g/dL Albumin (3.5-5.0) g/dL Globulin (2.4-3.5) g/dL Albumin/Globulin Ratio (1.1-2.2) Digoxin 1.8 (0.8-2.0) ng/mL - Radiology Data Radiology results reviewed: Yes I reviewed the patient's radiology results. Chest X-Ray 04/08/17 12:17 IMPRESSION: Stable consolidation unchanged from the prior exam with bilateral pleural effusions. D/ / 04/08/2017 12:56:02 Tony Ricks MD / Maryse [place] Interpreting Provider: Tony Ricks MD - EKG Data EKG attestation: Yes I reviewed and interpreted this EKG. Rate: tachycardia Rhythm: A.Fib (142 bpm ME 157 curettes [address] segment depressions in V2 V3 and V4 and V5 similar to previous EKG in March 2017)
[2017-04-08 13:29] LABS: Basophils % 0.1 %; Hematocrit 29.1 % (35.3-44.9); Hemoglobin 8.6 g/dL (11.5-15.4); Immature Granulocytes % 1.6 % (0-4); Lymphocytes # 0.2 K/mcL (0.6-4.6); Lymphocytes % 2.2 %; Mean Corpuscular HGB Conc 29.6 g/dL (31.6-35.5); Mean Corpuscular Hemoglobin 24.6 pg (28.0-33.3); Mean Corpuscular Volume 83.1 fL (83.0-100.0); Monocytes # 0.3 K/mcL (0.0-1.3); Monocytes % 2.9 %; Nucleated Red Blood Cells 0.4 /100 WBC (0); Platelet Count 176 K/mcL (140-400); Segmented Neutrophils % 93.2 %
[2017-04-08 13:39] LABS: INR 3.4; Prothrombin Time 37.7 Seconds (9.4-12.1)
[2017-04-08 13:44] LABS: Alanine Aminotransferase 38 Units/L (0-55); Albumin 2.3 g/dL (3.5-5.0); Albumin/Globulin Ratio 0.7 (1.1-2.2); Alkaline Phosphatase 255 Units/L (38-126); Aspartate Amino Transferase 29 Units/L (5-34); BUN/Creatinine Ratio 28 (6-26); Bilirubin,Total 0.3 mg/dL (0.2-1.2); Blood Urea Nitrogen 19 mg/dL (7-20); Calcium 8.3 mg/dL (8.6-10.8); Carbon Dioxide 31 mEq/L (19-29); Chloride 99 mEq/L (98-109); Globulin 3.1 g/dL (2.4-3.5); Glucose 129 mg/dL (70-99); Osmolality,Calculated 288 (280-300); Potassium 4.1 mEq/L (3.5-4.5); Sodium 137 mEq/L (136-145); Total Protein 5.4 g/dL (6.0-8.3); eGFR For African Americans > 60 (> 60); eGFR For Non-African Americans > 60 (> 60)
[2017-04-08] MEDS ORDERED: Acetaminophen 325 MG TABLET PO PRN (14:45)
[2017-04-08] MEDS ORDERED: Naloxone 0.4 MG/ML INJ IVP PRN (14:45)
[2017-04-08] MEDS ORDERED: Ipratropium Neb 0.5 MG NEBULIZER IH PRN (14:52)
[2017-04-08] MEDS ORDERED: Nitroglycerin 0.4 MG TAB.SUBL SL PRN (14:52)
[2017-04-08 15:03] LABS: Magnesium 1.9 mg/dL (1.6-2.6)
--- NOTE | 2017-04-08 15:06 | Internal Med History&Physical ---
Date of Encounter: 04/08/17 Time of Encounter: 15:03 Assessment and Plan (1) Atrial flutter with rapid ventricular response Current visit: Yes Status: Chronic Patient presented with palpitations and shortness of breath. She was found to be in aflutter with RVR, HR in the 140s. She was converted to sinus rhythm with Cardizem bolus and drip. She is already taking digoxin, amiodarone, diltiazem for rhythm control at home. Digoxin level is therapeutic. Continue these doses. Stop Cardizem drip. 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 Check magnesium level. Cardiology consulted to recommend any changes to medication dosing. (2) Supratherapeutic INR Current visit: Yes Status: Resolved Patient on coumadin for INR and mechanical mitral valve. INR today was 3.4. Patient denies any black or bloody stools or signs of bleeding. PHarmacy to dose coumadin. (3) Diastolic heart failure Current visit: Yes Status: Chronic Patient reports increased peripheral swelling. CXR shows bilateral pleural effusions. She has a history of CHF, with last echocardiogram on 03/26 showing LVEF of 65-70%. Will give lasix 40mg IVP BID daily weights strict I/Os cardiac diet. 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 Qualifiers: Heart failure chronicity: acute on chronic Qualified Code(s): I50.33 - Acute on chronic diastolic (congestive) heart failure (4) COPD exacerbation Current visit: Yes Status: Acute Patient reporting some shortness of breath increase from baseline this morning. Lungs with bilateral rhonchi. Dr. Arteaga recently increased PO prednisone to 30mg. Will increase to 40mg PO daily. Continue home doses of nebulizers and COPD medications. (5) Elevated troponin Current visit: Yes Status: Acute Patient presented with palpitations and shortness of breath. Found to be in aflutter with RVR, HR in th 140s. She converted with Cardizem and there were ST depressions on new EKG. Troponin also elevated at 0.05, though down from previous hospitalization. Patient has history of CAD with CABG. She is denying any chest pain. 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 (6) Adenocarcinoma of lung Current visit: Yes Status: Chronic Patient recently diagnosed with metastatic lung cancer, without plan for chemotherapy or treatment. Continue oxygen therapy and breathing treatments. Qualifiers: Laterality: right Qualified Code(s): C34.91 - Malignant neoplasm of unspecified part of right bronchus or lung (7) Frail elderly Current visit: Yes Status: Acute Patient has generalized weakness and is residing at rehab facility. [facility] consulted for discharge planning PT/OT consults. (8) History of heart valve replacement Current visit: Yes Status: Chronic Patient has mechanical mitral valve and is on coumadin. Pharmacy to dose coumadin. (9) DVT prophylaxis Current visit: Yes Status: Acute anti-embolic stockings Patient on coumadin for afib, additional pharmacologic prophylaxis not warranted. Internal Medicine - H&P: HPI Chief complaint: palpitations Admitted From: Emergency Dept Plans for Post Hospital Care: Home History of present illness: Ms. Dewitt is a 71 year old female with hypertension, hy atrial fibrillation on Coumadin, and metastatic lung cancer this into the emergency department today with from her rehabilitation facility for palpitations. Patient reports that she was sitting in a chair after breakfast this morning when she developed palpitations, and lightheadedness. She had increased shortness of breath at that time as well. She reports occasional lightheadedness, denies any headache , chest pain, nausea, vomiting, abdominal pain. She denies any fever, chills or sweats. Evaluation emergency department revealed she was in a flutter with heart rate in the 140s. Her troponin level was mildly elevated at 0.05. Her INR was supratherapeutic at 3.4. Digoxin level was within normal range at 1.8. Chest x-ray showed stable consolidation in the right lower lobe unchanged from prior exam with bilateral pleural effusions. Embolus and started on a Cardizem drip and her heart rate converted to normal sinus. On exam, patient alert and oriented, in no acute distress. Heart had regular rate and rhythm. Lungs with rhonchi bilaterally. Patient had diffuse peripheral edema. Abdomen was distended, but soft, with positive bowel sounds, no tenderness. Past Med Surg Social Fam HX - Past Medical History Medical history: arthritis, atrial fibrillation, cancer, cardiomyopathy, CHF, COPD, fibromyalgia, hypertension, myocardial infarction, osteoporosis, RA, other Psychiatric history: no psych history - Past Surgical History Surgical History: angioplasty/stent, cholecystectomy, coronary bypass (CABG), heart valve replacement (Mitral valve), orthopedic, other - Social History Smoking Status: Former smoker Smokeless Tobacco Status: No Alcohol use: none Drug use: none - Family History Father Family Member Ethnicity: Non- Living Status: Hx Family Cardiac Disorders: Yes ([place], HTN, HD) Hx Family Respiratory Disorders: No Hx Family Cancer: Yes (Lung ) Hx Family GI Disorders: No Hx Family Endocrine Disorder: No Hx Family Neuromuscular Disorders: No Hx Family Neurologic Disorders: No Hx Family HEENT Disorders: No Hx Family Autoimmune Disorders: No Brother Family Member Ethnicity: Non- Living Status: Hx Family Cardiac Disorders: Yes ([place]) Mother Family Member Ethnicity: Non- Living Status: Hx Family Cardiac Disorders: No Hx Family Respiratory Disorders: Yes (COPD) Hx Family Cancer: Yes (Lung, bone) Hx Family GI Disorders: No Hx Family Endocrine Disorder: No Hx Family Neuromuscular Disorders: No Hx Family Neurologic Disorders: No Hx Family HEENT Disorders: No Hx Family Autoimmune Disorders: No Internal Medicine - H&P: Meds Allopurinol [Zyloprim 100 MG] 100 mg PO DAILY 11/24/15 [History] Budesonide/Formoterol 160/4.5 [Symbicort 160/4.5] 2 puff IH BIDR 11/24/15 [ History] Calcium Carbonate [Calcium] 500 mg PO DAILY 11/24/15 [History] Cholecalciferol (D-3) [Vitamin D] 2,000 unit PO DAILY 11/24/15 [History] Fluticasone Propionate Nasal [Flonase] 1 spray NS DAILY 11/24/15 [History] Gabapentin [Neurontin] 200 mg PO HS 11/24/15 [History] Loratadine [Claritin] 10 mg PO DAILY 11/24/15 [History] Montelukast [Singulair] 10 mg PO DAILY 11/24/15 [History] Nitroglycerin [Nitrostat] 0.4 mg SL Q5M PRN 11/24/15 [History] Nortriptyline [Pamelor] 10 mg PO HS 11/24/15 [History] Roflumilast [Daliresp] 500 mcg PO DAILY 11/24/15 [History] Vitamin B Complex [B Complex] 1 tab PO DAILY 11/24/15 [History] Umeclidinium Marlette [Incruse Ellipta] 1 puff IH DAILY 12/17/15 [History] Atorvastatin [Lipitor] 10 mg PO HS 01/01/16 [History] Bifidobacterium Infantis [Align] 4 mg PO DAILY 08/25/16 [History] Esomeprazole Magnesium [Nexium] 40 mg PO DAILY #30 dianne. 10/03/16 [Rx] Folic Acid 1 mg PO DAILY #30 tablet 03/02/17 [Rx] HYDROcodone/Acet 5/325 mg [[place] 5-325 mg] 1 tab PO Q4HR PRN #14 tab 03/02/17 [ Rx] Amiodarone [Cordarone] 200 mg PO DAILY #30 tab 03/22/17 [Rx] Digoxin [Lanoxin] 0.125 mg PO DAILY #30 tab 03/22/17 [Rx] Diltiazem CD (24hr) [Cardizem CD] 360 mg PO DAILY #60 tab 03/22/17 [Rx] Furosemide [Lasix] 40 mg PO BID #60 tablet 03/22/17 [Rx] GuaiFENesin ER [Mucinex] 1,200 mg PO BID #20 tab 03/22/17 [Rx] LORazepam [Ativan] 0.5 mg PO TID PRN #20 tab 03/22/17 [Rx] Levalbuterol Neb [Xopenex Neb] 0.63 mg IH [id number] #120 inh 03/22/17 [Rx] Magnesium Oxide [Mag-Ox] 400 mg PO BID #60 tab 03/22/17 [Rx] Potassium Chloride [K-Tab ER] 20 meq PO DAILY #30 tab 03/22/17 [Rx] Oxygen 5 l IN CONT 03/25/17 [History] Warfarin [Coumadin] 2.5 mg PO WESA 03/25/17 [History] Ascorbic Acid [Vitamin C] 500 mg PO DAILY #30 tablet 03/29/17 [Rx] Loperamide [Imodium] 2 mg PO Q4HR PRN #20 capsule 03/29/17 [Rx] Acetylcysteine 10% 2 ml IH Q6H 04/08/17 [History] Ipratropium Neb [Atrovent Neb] 0.5 mg IH [id number] PRN 04/08/17 [History] Warfarin [Coumadin] 5 mg PO SUMOTU 04/08/17 [History] predniSONE [PredniSONE] 30 mg PO DAILY 04/08/17 [History] 3 Allergy/AdvReac Type Severity Reaction Status Date / Time ceftriaxone Allergy Hives Verified 03/25/17 15:16 ciprofloxacin Allergy Hives Verified 03/25/17 15:16 levofloxacin Allergy Hives Verified 03/25/17 15:16 vancomycin Allergy Rash Verified 03/25/17 15:16 All Systems PM: A 10-system review of systems was performed and is negative for pertinent findings except as documented above in the HPI. - Constitutional Constitutional: no chills, no fever(s), no night sweats - EENT Eyes: no change in vision, no discharge, no pain, no photophobia Ears: no ear discharge, no ear pain, no tinnitus Nose, mouth and throat: no dysphagia, no nasal discharge, no neck pain, no sore throat - Cardiovascular Cardiovascular ROS IM: dyspnea, dyspnea on exertion, edema, lightheadedness, palpitations, no chest pain, no diaphoresis, no syncope - Respiratory Respiratory: cough (dry), dyspnea, dyspnea on exertion, no wheezing, no excessive phlegm production - Gastrointestinal Gastrointestinal: no abdominal pain, no diarrhea, no hematemesis, no hematochezia, no melena, no nausea, no vomiting - Genitourinary Genitourinary: no change in urinary stream, no dysuria, no flank pain, no hematuria - Musculoskeletal Musculoskeletal ROS IM: no numbness, no tingling - Integumentary Integumentary IM: no rash, no unusual bruising - Neurological Neurological ROS: no confusion, no convulsions, no focal weakness, no numbness, no tingling, no tremor(s) - Hematologic/Lymphatic Hematologic/Lymphatic: no easy bruising - Constitutional Vitals: Temp Pulse Resp BP Pulse Ox 98.2 F 106 24 118/62 97 04/08/17 12:15 04/08/17 12:47 04/08/17 12:15 04/08/17 13:20 04/08/17 12:47 General appearance: Present: A&O X 3, pleasant, no acute distress - Head Head exam: Present: atraumatic, normocephalic - Eye Eye exam: Present: PERRL, conjuntiva pink, sclera anicteric Pupils: Present: PERRL - Neck Neck exam general surgery: Present: supple, trachea midline. Absent: lymphadenopathy - Respiratory Respiratory exam: Present: rhonchi. Absent: accessory muscle use, rales, wheezes - Cardiovascular Cardiovascular exam: Present: RRR, +S1, +S2. Absent: diastolic murmur, gallop, rubs, systolic murmur - GI/Abdominal GI/Abdominal exam: Present: distended, normal bowel sounds, soft, no peritoneal signs. Absent: tenderness - Extremities Exam Extremities exam: Present: pedal edema (BLE, BUE edema), warm, radial pulses palpable and symmetrical. Absent: calf tenderness, cyanotic - Neurological Exam Neurological exam: Present: CN II-XII intact, oriented X3, no focal deficits. Absent: pronater drift, facial droop, speech deficit - Skin Skin exam: Present: dry, intact Internal Med - H&P Results - Labs CBC & Chem 7: 04/08/17 13:20 04/08/17 13:20 Labs: All Lab Results (24 Hours) 04/08/17 04/08/17 04/08/17 Range/Units 13:20 13:20 13:20 WBC 9.6 (4.3-11.1) K/mcL RBC 3.50 L (3.82-4.97) M/mcL Hgb 8.6 L (11.5-15.4) g/dL Hct 29.1 L (35.3-44.9) % MCV 83.1 (83.0-100.0) fL MCH 24.6 L (28.0-33.3) pg MCHC 29.6 L (31.6-35.5) g/dL RDW 19.0 H (11.5-14.5) % Plt Count 176 (140-400) K/mcL MPV 9.0 L (9.4-12.4) fL Immature Gran % 1.6 (0-4) % Seg Neutrophils % 93.2 % Lymphocytes % 2.2 % Monocytes % 2.9 % Eosinophils % 0.0 % Basophils % 0.1 % Neutrophils # 9.0 H (1.6-8.9) K/mcL Lymphocytes # 0.2 L (0.6-4.6) K/mcL Monocytes # 0.3 (0.0-1.3) K/mcL Eosinophils # 0.0 (0.0-0.6) K/mcL Basophils # 0.0 (0.0-0.2) K/mcL Nucleated RBCs/100 WBC 0.4 H (0) /100 WBC PT 37.7 H (9.4-12.1) Seconds INR 3.4 Sodium 137 (136-145) mEq/L Potassium 4.1 (3.5-4.5) mEq/L Chloride 99 (98-109) mEq/L Carbon Dioxide 31 H (19-29) mEq/L BUN 19 (7-20) mg/dL Creatinine 0.69 (0.57-1.11) mg/dL Est GFR ( Amer) > 60 (> 60) Est GFR (Non-Af Amer) > 60 (> 60) BUN/Creatinine Ratio 28 H (6-26) Glucose 129 H (70-99) mg/dL Calculated Osmolality 288 (280-300) Calcium 8.3 L (8.6-10.8) mg/dL Magnesium 1.9 (1.6-2.6) mg/dL Total Bilirubin 0.3 (0.2-1.2) mg/dL AST 29 (5-34) Units/L ALT 38 (0-55) Units/L Alkaline Phosphatase 255 H (38-126) Units/L Troponin I (0-0.03) ng/mL Serum Total Protein 5.4 L (6.0-8.3) g/dL Albumin 2.3 L (3.5-5.0) g/dL Globulin 3.1 (2.4-3.5) g/dL Albumin/Globulin Ratio 0.7 L (1.1-2.2) Digoxin (0.8-2.0) ng/mL 04/08/17 04/08/17 Range/Units 13:20 13:20 WBC (4.3-11.1) K/mcL RBC (3.82-4.97) M/mcL Hgb (11.5-15.4) g/dL Hct (35.3-44.9) % MCV (83.0-100.0) fL MCH (28.0-33.3) pg MCHC (31.6-35.5) g/dL RDW (11.5-14.5) % Plt Count (140-400) K/mcL MPV (9.4-12.4) fL Immature Gran % (0-4) % Seg Neutrophils % % Lymphocytes % % Monocytes % % Eosinophils % % Basophils % % Neutrophils # (1.6-8.9) K/mcL Lymphocytes # (0.6-4.6) K/mcL Monocytes # (0.0-1.3) K/mcL Eosinophils # (0.0-0.6) K/mcL Basophils # (0.0-0.2) K/mcL Nucleated RBCs/100 WBC (0) /100 WBC PT (9.4-12.1) Seconds INR Sodium (136-145) mEq/L Potassium (3.5-4.5) mEq/L Chloride (98-109) mEq/L Carbon Dioxide (19-29) mEq/L BUN (7-20) mg/dL Creatinine (0.57-1.11) mg/dL Est GFR ( Amer) (> 60) Est GFR (Non-Af Amer) (> 60) BUN/Creatinine Ratio (6-26) Glucose (70-99) mg/dL Calculated Osmolality (280-300) Calcium (8.6-10.8) mg/dL Magnesium (1.6-2.6) mg/dL Total Bilirubin (0.2-1.2) mg/dL AST (5-34) Units/L ALT (0-55) Units/L Alkaline Phosphatase (38-126) Units/L Troponin I 0.05 H* (0-0.03) ng/mL Serum Total Protein (6.0-8.3) g/dL Albumin (3.5-5.0) g/dL Globulin (2.4-3.5) g/dL Albumin/Globulin Ratio (1.1-2.2) Digoxin 1.8 (0.8-2.0) ng/mL - Diagnostic Studies Chest x-ray Additional comments: Chest X-Ray 04/08/17 12:17 IMPRESSION: Stable consolidation unchanged from the prior exam with bilateral pleural effusions. D/ / 04/08/2017 12:56:02 Tony Ricks MD / Maryse Samayoa Interpreting Provider: Tony Ricks MD
--- NOTE | 2017-04-08 16:54 | Event Note ---
Date of Encounter: 04/08/17 Time of Encounter: 16:54 Patient seen and examined with nurse practitioner. Agree with assessment and plan.
[2017-04-08] MEDS: Levalbuterol Neb 0.63 MG/3 ML IH SCH ×2 (16:55→20:33)
[2017-04-08] MEDS: Acetylcysteine 10% 2 ML INHSOL IH SCH ×2 (16:55→20:33)
[2017-04-08] MEDS: Furosemide 40 MG/4 ML VIAL IVP SCH ×2 (17:52→23:11)
[2017-04-08] MEDS ORDERED: *HR* Warfarin 2.5 MG TABLET PO ONE (18:00)
[2017-04-08] MEDS ORDERED: Warfarin perPT PO PRN (18:00)
[2017-04-08] MEDS: *HR* LORazepam 0.5 MG TABLET PO PRN (19:30)
[2017-04-08] MEDS: *HR* HYDROcodone/Acet 5/325 mg TABLET PO PRN (20:11)
[2017-04-08] MEDS: Magnesium Oxide 400 MG TABLET PO SCH (20:11)
[2017-04-08] MEDS: Budesonide/Formoterol 160/4.5 MDI IH SCH (20:33)
[2017-04-08 20:50] LABS: Bilirubin,Urine Negative (Negative); Blood,Urine Negative (Negative); Clarity,Urine Clear (Clear); Color,Urine Yellow (Yellow); Glucose,Urine (UA) Normal (Normal); Ketones,Urine Negative (Negative); Leukocyte Esterase,Urine Negative (Negative); Nitrite,Urine Negative (Negative); PH,Urine 6.5 pH Units (5.0-8.0); Protein,Urine Negative (Neg-Trace); Specific Gravity,Urine 1.009 (1.010-1.025); Urobilinogen,Urine Normal (Normal)
[2017-04-08] MEDS ORDERED: Gabapentin 100 MG CAPSULE PO SCH (21:00)
--- NOTE | 2017-04-08 21:57 | Electrocardiograph Report ---
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
[2017-04-09 02:05] LABS: Basophils % 0.1 %; Hematocrit 27.1 % (35.3-44.9); Immature Granulocytes % 1.8 % (0-4); Lymphocytes # 0.6 K/mcL (0.6-4.6); Lymphocytes % 8.1 %; Mean Corpuscular HGB Conc 29.5 g/dL (31.6-35.5); Mean Corpuscular Hemoglobin 24.8 pg (28.0-33.3); Mean Corpuscular Volume 83.9 fL (83.0-100.0); Mean Platelet Volume 8.9 fL (9.4-12.4); Monocytes # 0.5 K/mcL (0.0-1.3); Monocytes % 6.5 %; Neutrophils # 6.5 K/mcL (1.6-8.9); Nucleated Red Blood Cells 0.4 /100 WBC (0); Platelet Count 170 K/mcL (140-400); Red Blood Count 3.23 M/mcL (3.82-4.97); Red Cell Distribution Width 18.6 % (11.5-14.5); Segmented Neutrophils % 83.5 %
[2017-04-09 02:11] LABS: INR 3.1; Prothrombin Time 34.4 Seconds (9.4-12.1)
[2017-04-09 02:14] LABS: Activated Partial Thrombo Time 33.9 Seconds (26.0-36.0)
[2017-04-09 02:17] LABS: BUN/Creatinine Ratio 26 (6-26); Blood Urea Nitrogen 18 mg/dL (7-20); Calcium 7.9 mg/dL (8.6-10.8); Carbon Dioxide 33 mEq/L (19-29); Chloride 99 mEq/L (98-109); Glucose 90 mg/dL (70-99); Osmolality,Calculated 289 (280-300); Potassium 3.2 mEq/L (3.5-4.5); Sodium 139 mEq/L (136-145); eGFR For African Americans > 60 (> 60); eGFR For Non-African Americans > 60 (> 60)
[2017-04-09] MEDS: Acetylcysteine 10% 2 ML INHSOL IH SCH ×3 (03:46→15:33)
[2017-04-09] MEDS: Levalbuterol Neb 0.63 MG/3 ML IH SCH ×3 (03:47→15:33)
--- NOTE | 2017-04-09 08:27 | Cardiology Consult Note ---
Date of Encounter: 04/09/17 Time of Encounter: 08:30 Assessment and Plan (1) Adenocarcinoma of lung Current Visit: Yes Status: Chronic Per Cardiology: Recent diagnosis of stage IV metastatic lung cancer and follows with [facility]. Primary team had discussions with oncology and recommendations for no chemotherapy due to her comorbid conditions-- recommendations to evaluate hospice care. I've had multiple conversations today with palliative care team and primary service with family and patient. They've now concluded they would like to proceed with discharge home today in hospice care. Again, patient is DNR /Comfort Care arrest, DNI. Qualifiers: Laterality: right Qualified Code(s): C34.91 - Malignant neoplasm of unspecified part of right bronchus or lung (2) Rapid atrial fibrillation Current Visit: Yes Status: Acute Per Cardiology: Patient with yet another recurrence of paroxysmal A. fib with RVR with multiple comorbid conditions including stage IV metastatic lung cancer. Patient has recently failed sotalol therapy and now currently taking at home amiodarone 200 mg by mouth daily, Digoxin 0.125mg PO daily, Cardizem CD 360mg PO daily. Dig level 1.8, kidney fxn stable, will resume home dose of digoxin. Now resolved. Suspect improved after diuresis and resp. treatments. (3) Elevated troponin Current Visit: Yes Status: Acute Per Cardiology: Suspect demand ischemia in the setting of multiple comorbidities and recent A. fib with RVR. Denies any chest pain. Patient proceeding with hospice care. Do not suspect non-STEMI. No cardiac rehabilitation warranted. (4) CAD in [place] artery Current Visit: No Status: Chronic Per Cardiology: Known history of CAD with CABG 3 at [facility] in 2007 and negative stress test in 2013. (5) History of heart valve replacement Current Visit: Yes Status: Chronic Per Cardiology: Patient has history of mechanical mitral valve (St. Tj) at [facility] in 2007. Patient must remain on Coumadin to prevent acute mechanical valve thrombosis. Patient is experiencing hemoptysis. H&H remained stable around her baseline. Current INR being managed by [facility] (just recent assumed responsibility). INR upon arrival 3.4, now 3.1. Remains on Coumadin 2.5 mg by mouth daily. Recommend continue current dose and will check INR this Wednesday ( [facility] office staff aware and will monitor for INR results on Wednesday) through hospice to be managed by [facility]. Patient and family aware of increased risk of remaining on Coumadin and risk of bleeding. Discussed and reviewed with Drs. Espinal and Maria Guadalupe Fierro. (6) Hypokalemia Current Visit: No Status: Acute Per Cardiology: On IV Lasix 40mg BID. Will replace K+. Discussion w patient/family: The assessment and plan as outlined above was discussed with the patient and/or family members who expressed understanding and agreement. All questions were answered. Thank you for involving us in the care of your patient. Please call with any questions. History of Present Illness Consult date: 04/09/17 Consult reason: Afib RVR, SOB Chief complaint: SOB, Rapid HR History of present illness: Ms. Dewitt is a 71 year old female with a relevant past medical history of CAD/ CABG, mechanical mitral valve replacement on Coumadin previously managed by [facility] and now being managed by edema and cardiology, paroxysmal atrial fibrillation with most recent treatment of calcium channel halle and amiodarone, COPD, obstructive sleep apnea, restless leg syndrome, hypertension, and history of CHF. Of note, this is patient's 13th hospital stay since 08/2016. Patient well-known to me as outpatient. Cardiology consult for recurrent A. fib with RVR. I initially saw patient with family yesterday evening and patient had converted back to sinus rhythm with bolus of IV Cardizem. Patient seen this morning with family at bedside and she reports overall shortness of breath and rapid heart rate have improved. She reports 1 episode yesterday evening after the night of waking up very anxious and short of breath. She reports currently back to her baseline shortness of breath at rest. She denies any chest pain. Does report positive cough with blood tinged sputum intermittently the past few days. She denies any other active medical loss. Denies any fever, chills, nausea, vomiting, diarrhea. She reports overall somewhat improved, however still feels overall short of breath and fatigue which is chronically worsening for her. They do report she has followed up with oncology was not deemed a good candidate for chemotherapy for palliation. Do confirm she remains a DNR Comfort Care arrest DNI. Past Med Surg Social Fam HX - Past Medical History Attestation: Yes The following information was validated with the patient. Source: patient, old records reviewed, obtained from family Medical history: arthritis, atrial fibrillation, cancer, cardiomyopathy, CHF, COPD, fibromyalgia, hypertension, myocardial infarction, osteoporosis, RA, other Psychiatric history: no psych history - Past Surgical History Surgical History: angioplasty/stent, cholecystectomy, coronary bypass (CABG), heart valve replacement, orthopedic, other - Social History Smoking Status: Former smoker Smokeless Tobacco Status: No Alcohol use: none Drug use: none - Family History Father Family Member Ethnicity: Non- Living Status: Age at : 60 Cause of : cancer Hx Family Cardiac Disorders: Yes (open heart) Hx Family Respiratory Disorders: No Hx Family Cancer: Yes (lung cancer) Hx Family GI Disorders: No Hx Family Endocrine Disorder: No Hx Family Neuromuscular Disorders: No Hx Family Neurologic Disorders: No Hx Family HEENT Disorders: No Hx Family Autoimmune Disorders: No Brother Family Member Ethnicity: Non- Living Status: Hx Family Cardiac Disorders: Yes ([place]) Mother Family Member Ethnicity: Non- Living Status: Age at : 62 Cause of : lung cancer Hx Family Cardiac Disorders: No Hx Family Respiratory Disorders: Yes (emphysema) Hx Family Cancer: Yes (lung cancer) Hx Family GI Disorders: No Hx Family Endocrine Disorder: No Hx Family Neuromuscular Disorders: No Hx Family Neurologic Disorders: No Hx Family HEENT Disorders: No Hx Family Autoimmune Disorders: No Medications and Allergies Allopurinol [Zyloprim 100 MG] 100 mg PO DAILY 11/24/15 [History] Budesonide/Formoterol 160/4.5 [Symbicort 160/4.5] 2 puff IH BIDR 11/24/15 [ History] Calcium Carbonate [Calcium] 500 mg PO DAILY 11/24/15 [History] Cholecalciferol (D-3) [Vitamin D] 2,000 unit PO DAILY 11/24/15 [History] Fluticasone Propionate Nasal [Flonase] 1 spray NS DAILY 11/24/15 [History] Gabapentin [Neurontin] 200 mg PO HS 11/24/15 [History] Loratadine [Claritin] 10 mg PO DAILY 11/24/15 [History] Montelukast [Singulair] 10 mg PO DAILY 11/24/15 [History] Nitroglycerin [Nitrostat] 0.4 mg SL Q5M PRN 11/24/15 [History] Nortriptyline [Pamelor] 10 mg PO HS 11/24/15 [History] Roflumilast [Daliresp] 500 mcg PO DAILY 11/24/15 [History] Vitamin B Complex [B Complex] 1 tab PO DAILY 11/24/15 [History] Umeclidinium [place] [Incruse Ellipta] 1 puff IH DAILY 12/17/15 [History] Atorvastatin [Lipitor] 10 mg PO HS 01/01/16 [History] Bifidobacterium Infantis [Align] 4 mg PO DAILY 08/25/16 [History] Esomeprazole Magnesium [Nexium] 40 mg PO DAILY #30 capsule. 10/03/16 [Rx] Folic Acid 1 mg PO DAILY #30 tablet 03/02/17 [Rx] HYDROcodone/Acet 5/325 mg [[place] 5-325 mg] 1 tab PO Q4HR PRN #14 tab 03/02/17 [ Rx] Amiodarone [Cordarone] 200 mg PO DAILY #30 tab 03/22/17 [Rx] Digoxin [Lanoxin] 0.125 mg PO DAILY #30 tab 03/22/17 [Rx] Diltiazem CD (24hr) [Cardizem CD] 360 mg PO DAILY #60 tab 03/22/17 [Rx] Furosemide [Lasix] 40 mg PO BID #60 tablet 03/22/17 [Rx] GuaiFENesin ER [Mucinex] 1,200 mg PO BID #20 tab 03/22/17 [Rx] LORazepam [Ativan] 0.5 mg PO TID PRN #20 tab 03/22/17 [Rx] Levalbuterol Neb [Xopenex Neb] 0.63 mg IH [id number] #120 inh 03/22/17 [Rx] Magnesium Oxide [Mag-Ox] 400 mg PO BID #60 tab 03/22/17 [Rx] Potassium Chloride [K-Tab ER] 20 meq PO DAILY #30 tab 03/22/17 [Rx] Oxygen 5 l IN CONT 03/25/17 [History] Warfarin [Coumadin] 2.5 mg PO WESA 03/25/17 [History] Ascorbic Acid [Vitamin C] 500 mg PO DAILY #30 tablet 03/29/17 [Rx] Loperamide [Imodium] 2 mg PO Q4HR PRN #20 capsule 03/29/17 [Rx] Acetylcysteine 10% 2 ml IH Q6H 04/08/17 [History] Ipratropium Neb [Atrovent Neb] 0.5 mg IH [id number] PRN 04/08/17 [History] Warfarin [Coumadin] 5 mg PO SUMOTU 04/08/17 [History] predniSONE [PredniSONE] 30 mg PO DAILY 04/08/17 [History] 3 Allergy/AdvReac Type Severity Reaction Status Date / Time ceftriaxone Allergy Hives Verified 03/25/17 15:16 ciprofloxacin Allergy Hives Verified 03/25/17 15:16 levofloxacin Allergy Hives Verified 03/25/17 15:16 vancomycin Allergy Rash Verified 03/25/17 15:16 All Systems Review: A 10-system review of systems was performed and is negative for pertinent findings except as documented above in the HPI. - Constitutional Constitutional: fatigue, weakness - Cardiovascular Cardiovascular: as per HPI, dyspnea at rest, dyspnea on exertion, irregular heart rhythm, leg edema, orthopnea, palpitations, rapid heart rate - Respiratory Respiratory: cough, hemoptysis Physical Examination Vital Signs, Last 4 Hours Temp Pulse Resp BP Pulse Ox 04/09/17 07:22 97.7 F 89 16 111/62 97 General: Conversant, Other (Pale) HEENT: Atraumatic, Normocephaly, Mucus Membranes Moist Neck: No JVD, Normal carotid pulses Cardiac: Reg Rate and Rhythm, Normal S1 and S2, No Murmur, Other (audible clicking noted) Lungs: Other (Diminished breath sounds throughout, respirations mild to moderately labored at rest, utilizing these, O2, conversational dyspnea noted, scattered rhonchi and wheezes throughout) Neuro: Alert and responsive, No focal deficits noted Abdomen: Soft, Non-Tender Skin: Other (Multiple ecchymotic areas noted bilateral legs and arms) Musculoskeletal: No Chest Wall Tenderness Extremities: Normal Pulses, Other (+1-2 nonpitting bilateral lower extremity edema) Results 04/09/17 01:45 04/09/17 01:45 Lab Results Laboratory Tests 03/09/17 03/25/17 03/30/17 04:10 17:11 17:45 Hgb 9.3 L Hct 30.4 L INR 2.5 Potassium Magnesium Troponin I 0.27 H* Digoxin 04/08/17 04/08/17 04/08/17 13:20 13:20 13:20 Hgb 8.6 L Hct 29.1 L INR Potassium Magnesium Troponin I 0.05 H* Digoxin 1.8 04/08/17 04/09/17 04/09/17 20:41 01:45 01:45 Hgb 8.0 L Hct 27.1 L INR Potassium Magnesium Troponin I 0.07 H* 0.07 H* Digoxin 04/09/17 04/09/17 01:45 01:45 Hgb Hct INR 3.1 Potassium 3.2 L Magnesium 2.0 Troponin I Digoxin ITS Impressions Chest X-Ray 04/08/17 12:17 IMPRESSION: Stable consolidation unchanged from the prior exam with bilateral pleural effusions. D/ / 04/08/2017 12:56:02 Tony Ricks MD / Maryse aSmayoa Interpreting Provider: Tony Ricks MD Active Medications Acetaminophen (Tylenol) 650 mg PO Q6HR PRN PRN Reason: Mild Pain (1-3) Stop: 10/08/17 14:46 Hydrocodone Bitart/Acetaminophen ([place] 5-325 Mg) 1 tab PO Q4HR PRN PRN Reason: Severe Pain (7-10) Stop: 10/08/17 14:53 Last Admin: 04/08/17 20:11 Dose: 1 tab Acetylcysteine (Acetylcysteine 10%) 2 ml IH [id number] [facility] Stop: 10/08/17 16:01 Last Admin: 04/09/17 03:46 Dose: 2 ml Allopurinol (Zyloprim) 100 mg PO DAILY [facility] Stop: 10/09/17 09:01 Amiodarone HCl (Cordarone) 200 mg PO DAILY [facility] Stop: 10/09/17 09:01 Ascorbic Acid (Vitamin C) 500 mg PO DAILY [facility] Stop: 10/09/17 09:01 Atorvastatin Calcium (Lipitor) 10 mg PO HS [facility] Stop: 10/08/17 21:01 Last Admin: 04/08/17 20:10 Dose: 10 mg Budesonide/Formoterol Fumarate (Symbicort) 2 puff IH BIDR [facility] PRN Reason: Protocol Stop: 10/08/17 22:01 Last Admin: 04/08/17 20:33 Dose: 2 puff Diltiazem HCl (Cardizem Cd) 360 mg PO DAILY [facility] Stop: 10/09/17 09:01 Docusate Sodium (Colace) 100 mg PO BID PRN PRN Reason: Constipation Stop: 10/08/17 14:46 Last Admin: 04/08/17 20:11 Dose: 100 mg Fluticasone Propionate (Flonase) 50 mcg NS DAILY [facility] PRN Reason: Protocol Stop: 10/09/17 09:01 Folic Acid (Folic Acid) 1 mg PO DAILY [facility] Stop: 10/09/17 09:01 Furosemide (Lasix) 40 mg IVP BID [facility] Stop: 10/08/17 15:16 Last Admin: 04/08/17 23:11 Dose: 40 mg Gabapentin (Neurontin) 200 mg PO HS [facility] Stop: 10/08/17 21:01 Last Admin: 04/08/17 20:12 Dose: 200 mg Guaifenesin (Mucinex) 1,200 mg PO BID [facility] Stop: 10/08/17 21:01 Last Admin: 04/08/17 20:11 Dose: 1,200 mg Ipratropium [place] (Atrovent Neb) 0.5 mg IH [id number] PRN PRN Reason: Shortness Of Breath/Wheezing Stop: 10/08/17 14:53 Levalbuterol HCl (Xopenex) 0.63 mg IH [id number] [facility] Stop: 10/08/17 16:01 Last Admin: 04/09/17 03:47 Dose: 0.63 mg Lorazepam (Ativan) 0.5 mg PO TID PRN PRN Reason: Anxiety Stop: 10/08/17 14:53 Last Admin: 04/08/17 19:30 Dose: 0.5 mg Magnesium Oxide (Mag-Ox) 400 mg PO BID [facility] PRN Reason: Protocol Stop: 10/08/17 21:01 Last Admin: 04/08/17 20:11 Dose: 400 mg Montelukast Sodium (Singulair) 10 mg PO DAILY [facility] Stop: 10/09/17 09:01 Naloxone HCl (Narcan) 0.4 mg IVP Q2MIN PRN PRN Reason: Opioid Reversal Stop: 10/08/17 14:46 Nitroglycerin (Nitroglycerin) 0.4 mg SL Q5M PRN PRN Reason: Chest Pain Stop: 10/08/17 14:53 Nortriptyline HCl (Pamelor) 10 mg PO HS [facility] Stop: 10/08/17 21:01 Last Admin: 04/08/17 20:11 Dose: 10 mg Omeprazole (Prilosec) 40 mg PO DAILY [facility] Stop: 10/09/17 09:01 Pharmacy Profile Note (Patient Taking Own Medication) 0 each PO DAILY [facility] Stop: 10/09/17 09:01 Pharmacy Profile Note (Patient Taking Own Medication) 0 each IH DAILYR [facility] Stop: 10/09/17 10:01 Prednisone (Prednisone) 40 mg PO DAILY [facility] Stop: 10/09/17 09:01 Warfarin Sodium (Coumadin Perpt) 1 each PO DAILY@1800 PRN PRN Reason: SEE COMMENTS Stop: 10/08/17 18:01 - Imaging and Cardiology Chest Xray: report reviewed Echo: report reviewed - EKG Interpretation EKG results cardiology: personally reviewed (Juma eli with RVR), other (Currently sinus rhythm on telemetry with average heart rate 86 the past 12 hours.) Consult Discharge Plan - Plan Referrals: Christoph Hughes DO [Primary Care Provider] -
[2017-04-09] MEDS ORDERED: Potassium Chloride Elixir 20 MEQ/15 ML UDC PO ONE (08:28)
[2017-04-09] MEDS: Magnesium Oxide 400 MG TABLET PO SCH ×2 (08:38→08:40)
[2017-04-09] MEDS: *HR* LORazepam 0.5 MG TABLET PO PRN ×2 (08:40→16:14)
[2017-04-09] MEDS: Furosemide 40 MG/4 ML VIAL IVP SCH (08:41)
[2017-04-09] MEDS ORDERED: Fluticasone Propionate Nasal 50 MCG/SPRAY BOTTLE NS SCH (09:00)
[2017-04-09] MEDS ORDERED: *HR* Digoxin 0.125 MG TABLET PO SCH ×2 (09:00→13:15)
[2017-04-09] MEDS ORDERED: predniSONE 20 MG TABLET PO SCH (09:00)
[2017-04-09] MEDS ORDERED: Folic Acid 1 MG TABLET PO SCH (09:00)
[2017-04-09] MEDS ORDERED: Ascorbic Acid 500 MG TABLET PO SCH (09:00)
[2017-04-09] MEDS ORDERED: (Roflumilast [Daliresp] 500 MCG) PO SCH (09:00)
[2017-04-09] MEDS ORDERED: *HR* Amiodarone 200 MG TABLET PO SCH (09:00)
[2017-04-09] MEDS ORDERED: Diltiazem CD (24hr) 180 MG CAPSULE PO SCH (09:00)
[2017-04-09] MEDS ORDERED: INCRUSE ELLIPTA IH SCH (10:00)
[2017-04-09] MEDS: Budesonide/Formoterol 160/4.5 MDI IH SCH (10:22)
[2017-04-09 11:27] VITALS: BP 125/76
[2017-04-09] MEDS: *HR* HYDROcodone/Acet 5/325 mg TABLET PO PRN (12:20)
--- NOTE | 2017-04-09 13:40 | Discharge Summary ---
<Steph Richey Gloria - Last Filed: 04/09/17 13:51> Date of Encounter: 04/09/17 Time of Encounter: 13:38 - Discharge Diagnosis (1) Atrial flutter with rapid ventricular response Priority: Secondary Status: Chronic (2) Frail elderly Priority: Primary Status: Acute (3) Adenocarcinoma of lung Priority: Primary Status: Chronic Qualifiers: Laterality: right Qualified Code(s): C34.91 - Malignant neoplasm of unspecified part of right bronchus or lung (4) Diastolic heart failure Priority: Secondary Status: Chronic Qualifiers: Heart failure chronicity: acute on chronic Qualified Code(s): I50.33 - Acute on chronic diastolic (congestive) heart failure (5) History of heart valve replacement Priority: Secondary Status: Chronic Comments: goal INR 2.5-3.5 - Discharge Medications Prescriptions: HYDROcodone/Acet 5/325 mg [[place] 5-325 mg] 1 tab PO Q4H PRN #20 tab PRN Reason: generalized pain LORazepam [Lorazepam] 0.5 - 1 mg PO Q4-6H PRN #30 mls PRN Reason: Anxiety Morphine Oral CONC [Roxanol] 0.25 - 0.5 ml PO Q4H PRN #30 ml PRN Reason: dyspnea/pain Home Medications: Allopurinol [Zyloprim 100 MG] 100 mg PO DAILY 11/24/15 [History] Budesonide/Formoterol 160/4.5 [Symbicort 160/4.5] 2 puff IH BIDR 11/24/15 [ History] Fluticasone Propionate Nasal [Flonase] 1 spray NS DAILY 11/24/15 [History] Gabapentin [Neurontin] 200 mg PO HS 11/24/15 [History] Loratadine [Claritin] 10 mg PO DAILY 11/24/15 [History] Montelukast [Singulair] 10 mg PO DAILY 11/24/15 [History] Nitroglycerin [Nitrostat] 0.4 mg SL Q5M PRN 11/24/15 [History] Nortriptyline [Pamelor] 10 mg PO HS 11/24/15 [History] Roflumilast [Daliresp] 500 mcg PO DAILY 11/24/15 [History] Umeclidinium [place] [Incruse Ellipta] 1 puff IH DAILY 12/17/15 [History] Atorvastatin [Lipitor] 10 mg PO HS 01/01/16 [History] Esomeprazole Magnesium [Nexium] 40 mg PO DAILY #30 capsule. 10/03/16 [Rx] HYDROcodone/Acet 5/325 mg [[place] 5-325 mg] 1 tab PO Q4HR PRN #14 tab 03/02/17 [ Rx] Amiodarone [Cordarone] 200 mg PO DAILY #30 tab 03/22/17 [Rx] Digoxin [Lanoxin] 0.125 mg PO DAILY #30 tab 03/22/17 [Rx] Diltiazem CD (24hr) [Cardizem CD] 360 mg PO DAILY #60 tab 03/22/17 [Rx] Furosemide [Lasix] 40 mg PO BID #60 tablet 03/22/17 [Rx] GuaiFENesin ER [Mucinex] 1,200 mg PO BID #20 tab 03/22/17 [Rx] LORazepam [Ativan] 0.5 mg PO TID PRN #20 tab 03/22/17 [Rx] Levalbuterol Neb [Xopenex Neb] 0.63 mg IH [id number] #120 inh 03/22/17 [Rx] Potassium Chloride [K-Tab ER] 20 meq PO DAILY #30 tab 03/22/17 [Rx] Oxygen 5 l IN CONT 03/25/17 [History] Warfarin [Coumadin] 2.5 mg PO WESA 03/25/17 [History] Loperamide [Imodium] 2 mg PO Q4HR PRN #20 capsule 03/29/17 [Rx] Acetylcysteine 10% 2 ml IH Q6H 04/08/17 [History] Ipratropium Neb [Atrovent Neb] 0.5 mg IH [id number] PRN 04/08/17 [History] Warfarin [Coumadin] 5 mg PO SUMOTU 04/08/17 [History] predniSONE [PredniSONE] 30 mg PO DAILY 04/08/17 [History] HYDROcodone/Acet 5/325 mg [[place] 5-325 mg] 1 tab PO Q4H PRN #20 tab 04/09/17 [Rx ] LORazepam [Lorazepam] 0.5 - 1 mg PO Q4-6H PRN #30 mls 04/09/17 [Rx] Morphine Oral CONC [Roxanol] 0.25 - 0.5 ml PO Q4H PRN #30 ml 04/09/17 [Rx] Allergies/Adverse Reactions: 3 Allergy/AdvReac Type Severity Reaction Status Date / Time ceftriaxone Allergy Hives Verified 03/25/17 15:16 ciprofloxacin Allergy Hives Verified 03/25/17 15:16 levofloxacin Allergy Hives Verified 03/25/17 15:16 vancomycin Allergy Rash Verified 03/25/17 15:16 Date of admission: 04/08/17 14:13 Primary care physician: Christoph Hughes Consults: 04/08/17 15:01 Consult to Cardiology [CONS] Routine Comment: Consulting Provider: Cardiology Jennifer Reason for Consult: 71F with aflutter/rvr converted with cardizem, but with ST depressions on ekg. Extensive history. Call Completed: No 04/08/17 15:21 Consult to Occupational Therapy [CONS] Routine Comment: Evaluate, develop and implement POC Reason for Consult: generalized weakness Consult to Physical Therapy [CONS] Routine Comment: Evaluate, develop and implement POC Reason for Consult: generalized weakness 04/08/17 19:45 Consult to Wound Care [CONS] Routine Reason for Consult: sacral redness Call Completed: No 04/08/17 20:44 Consult to Nutrition [CONS] Routine Comment: Consulting Provider: NUTRITION Reason for Dietary Consult: PO Supplementation Consult to Accounts Payable Accountant [CONS] Routine Reason for SW Consult: discharge needs possible home with hospice care 04/09/17 10:29 Consult to Oncology [CONS] Routine Consulting Provider: [facility] Reason for Consult: stage IV lung cancer Time Notified: 10:31 Call Completed: Yes Consult to Palliative Care [CONS] Routine Comment: Consulting Provider: Palliative Care Jennifer Reason for Consult: potential hospice Time Notified: 10:31 Call Completed: Yes Discharging clinician: Steph Richey Anticipated date of discharge: 04/09/17 - Patient Status Disposition: Hospice - Home Condition: Fair Functional capacity at discharge: uses cane/walker Overall status at discharge: patient is not back to baseline - Discharge Instructions Instructions: Warfarin (Injection), Atrial Flutter (DC), Atrial Fibrillation ( DC), Chronic Obstructive Pulmonary Disease (DC), Vitamin K in Foods (DC), Vitamin K in Foods (GEN), Venous Thromboembolism (DC), Venous Thromboembolism ( GEN) Follow Up With: Christoph Hughes DO [Primary Care Provider] - - Diet and Activity Diet: advance to your usual diet Interval History: Complaints of dyspnea, not worsened from previous. Hospital course: Ms. Dewitt is a 71 year old female admitted for atrial flutter with RVR. She has a complex chronic medical history which includes stage 4 lung cancer, COPD, and diastolic CHF. Her heart converted to sinus rhythm with cardizem drip. The drip was stopped and she has been rate controlled in and out of a fib. She is being discharged home with hospice. - Time Spent with Patient Total time spent providing and/or coordinating discharge services: - Constitutional Vitals: Temp Pulse Resp BP Pulse Ox 97.9 F 93 16 125/76 97 04/09/17 11:26 04/09/17 11:26 04/09/17 11:26 04/09/17 11:26 04/09/17 11:26 General appearance: Present: mild distress, A&O X 3, pleasant, answers questions appropriately - Head Head exam: Present: atraumatic, normocephalic - Eye Eye exam: Present: PERRL, conjuntiva pink, sclera anicteric Pupils: Present: PERRL - Neck Neck exam general surgery: Present: supple, trachea midline - Respiratory Respiratory exam: Present: decreased breath sounds, rales (throughout) - Cardiovascular Cardiovascular exam: Present: irregular rhythm, +S1, +S2. Absent: systolic murmur, tachycardia - GI/Abdominal GI/Abdominal exam: Present: normal bowel sounds, soft, no peritoneal signs. Absent: distended, tenderness - Extremities Exam Additional comments: clubbing of fingers, petechia/purpura of lower extremities, 1+ pedal edema bilaterally - Neurological Exam Neurological exam: Present: alert, oriented X3. Absent: facial droop, speech deficit <Naveen Hatfield - Last Filed: 04/09/17 18:48> Date of Encounter: 04/09/17 - Discharge Diagnosis (1) Atrial fibrillation Priority: Primary Status: Chronic Qualifiers: Atrial fibrillation type: paroxysmal Qualified Code(s): I48.0 - Paroxysmal atrial fibrillation (2) Adenocarcinoma of lung Priority: Secondary Status: Chronic Qualifiers: Laterality: right Qualified Code(s): C34.91 - Malignant neoplasm of unspecified part of right bronchus or lung (3) CKD (chronic kidney disease) stage 3, GFR 30-59 ml/min Priority: Secondary Status: Chronic Date of admission: 04/08/17 14:13 Primary care physician: Christoph Hughes Consults: 04/08/17 15:01 Consult to Cardiology [CONS] Routine Comment: Consulting Provider: Cardiology Jennifer Reason for Consult: 71F with aflutter/rvr converted with cardizem, but with ST depressions on ekg. Extensive history. Call Completed: No 04/08/17 15:21 Consult to Occupational Therapy [CONS] Routine Comment: Evaluate, develop and implement POC Reason for Consult: generalized weakness Consult to Physical Therapy [CONS] Routine Comment: Evaluate, develop and implement POC Reason for Consult: generalized weakness 04/08/17 19:45 Consult to Wound Care [CONS] Routine Reason for Consult: sacral redness Call Completed: No 04/08/17 20:44 Consult to Nutrition [CONS] Routine Comment: Consulting Provider: NUTRITION Reason for Dietary Consult: PO Supplementation Consult to Accounts Payable Accountant [CONS] Routine Reason for SW Consult: discharge needs possible home with hospice care 04/09/17 10:29 Consult to Oncology [CONS] Routine Consulting Provider: [facility] [place] Reason for Consult: stage IV lung cancer Time Notified: 10:31 Call Completed: Yes Consult to Palliative Care [CONS] Routine Comment: Consulting Provider: Palliative Care [place] Reason for Consult: potential hospice Time Notified: 10:31 Call Completed: Yes Hospital course: Ms. Dewitt is a 71 year old female - Time Spent with Patient Total time spent providing and/or coordinating discharge services: 28min - Constitutional Vitals: Temp Pulse Resp BP Pulse Ox 97.9 F 93 16 125/76 97 04/09/17 11:26 04/09/17 11:26 04/09/17 15:35 04/09/17 11:26 04/09/17 15:35 - Attending Attestation I examined this patient and my medical decision-making was reviewed with the Resident Physician on 04/09/17. I agree with the documented findings, disposition and treatment plan as described except to the extent set forth below. Ms Dewitt has been admitted with rapid a fib. She is being discharged with Hospice arranged by palliative care Exam Alert. Comfortable Heart irreg and tachy Plan D/C home with hospice.
--- NOTE | 2017-04-09 13:51 | Physician Discharge Referral ---
Home Health/Hosp Referral Info Transfer to: Hospice Attending Provider: Dr. Naveen Hatfield Provider in Charge Post Discharge: Sole Ruffer - Diagnosis (1) Atrial flutter with rapid ventricular response Priority: Secondary Status: Chronic (2) Frail elderly Priority: Primary Status: Acute (3) Adenocarcinoma of lung Priority: Primary Status: Chronic (4) Diastolic heart failure Priority: Primary Status: Chronic (5) History of heart valve replacement Priority: Secondary Status: Chronic - Respiratory Orders Oxygen / L per min (5) Smoking Cessation: Smoking cessation has been advised. For more information, call the [employer] Tobacco Quit Line at 2-510-IAHJ-NOW. - Diet/Nutrition Diet/Nutrition Orders: Regular - Activity Activity Orders: Walker - Services Needed Following services are medically necessary services: Nursing, Home Health Aide Other Treatments: Check INR on Wednesday, then once a week on Wednesday. Send results to Manuel Andrade CNP at [facility]. - Transfer Medications Prescriptions: HYDROcodone/Acet 5/325 mg [[place] 5-325 mg] 1 tab PO Q4H PRN #20 tab PRN Reason: generalized pain LORazepam [Lorazepam] 0.5 - 1 mg PO Q4-6H PRN #30 mls PRN Reason: Anxiety Morphine Oral CONC [Roxanol] 0.25 - 0.5 ml PO Q4H PRN #30 ml PRN Reason: dyspnea/pain Home Medications: Allopurinol [Zyloprim 100 MG] 100 mg PO DAILY 11/24/15 [History] Budesonide/Formoterol 160/4.5 [Symbicort 160/4.5] 2 puff IH BIDR 11/24/15 [ History] Fluticasone Propionate Nasal [Flonase] 1 spray NS DAILY 11/24/15 [History] Gabapentin [Neurontin] 200 mg PO HS 11/24/15 [History] Loratadine [Claritin] 10 mg PO DAILY 11/24/15 [History] Montelukast [Singulair] 10 mg PO DAILY 11/24/15 [History] Nitroglycerin [Nitrostat] 0.4 mg SL Q5M PRN 11/24/15 [History] Nortriptyline [Pamelor] 10 mg PO HS 11/24/15 [History] Roflumilast [Daliresp] 500 mcg PO DAILY 11/24/15 [History] Umeclidinium [place] [Incruse Ellipta] 1 puff IH DAILY 12/17/15 [History] Atorvastatin [Lipitor] 10 mg PO HS 01/01/16 [History] Esomeprazole Magnesium [Nexium] 40 mg PO DAILY #30 capsule. 10/03/16 [Rx] HYDROcodone/Acet 5/325 mg [[place] 5-325 mg] 1 tab PO Q4HR PRN #14 tab 03/02/17 [ Rx] Amiodarone [Cordarone] 200 mg PO DAILY #30 tab 03/22/17 [Rx] Digoxin [Lanoxin] 0.125 mg PO DAILY #30 tab 03/22/17 [Rx] Diltiazem CD (24hr) [Cardizem CD] 360 mg PO DAILY #60 tab 03/22/17 [Rx] Furosemide [Lasix] 40 mg PO BID #60 tablet 03/22/17 [Rx] GuaiFENesin ER [Mucinex] 1,200 mg PO BID #20 tab 03/22/17 [Rx] LORazepam [Ativan] 0.5 mg PO TID PRN #20 tab 03/22/17 [Rx] Levalbuterol Neb [Xopenex Neb] 0.63 mg IH [id number] #120 inh 03/22/17 [Rx] Potassium Chloride [K-Tab ER] 20 meq PO DAILY #30 tab 03/22/17 [Rx] Oxygen 5 l IN CONT 03/25/17 [History] Warfarin [Coumadin] 2.5 mg PO WESA 03/25/17 [History] Loperamide [Imodium] 2 mg PO Q4HR PRN #20 capsule 03/29/17 [Rx] Acetylcysteine 10% 2 ml IH Q6H 04/08/17 [History] Ipratropium Neb [Atrovent Neb] 0.5 mg IH [id number] PRN 04/08/17 [History] Warfarin [Coumadin] 5 mg PO SUMOTU 04/08/17 [History] predniSONE [PredniSONE] 30 mg PO DAILY 04/08/17 [History] HYDROcodone/Acet 5/325 mg [[place] 5-325 mg] 1 tab PO Q4H PRN #20 tab 04/09/17 [Rx ] LORazepam [Lorazepam] 0.5 - 1 mg PO Q4-6H PRN #30 mls 10/06/17 [Rx] Morphine Oral CONC [Roxanol] 0.25 - 0.5 ml PO Q4H PRN #30 ml 04/09/17 [Rx] Allergies/Adverse Reactions: 3 Allergy/AdvReac Type Severity Reaction Status Date / Time ceftriaxone Allergy Hives Verified 03/25/17 15:16 ciprofloxacin Allergy Hives Verified 03/25/17 15:16 levofloxacin Allergy Hives Verified 03/25/17 15:16 vancomycin Allergy Rash Verified 03/25/17 15:16 Certification: Further, I certify that my clinical findings support that this patient is homebound (i.e. absences from home require considerable and taxing effort and are for medical reasons or baptism services or infrequently or short duration when for other reasons) because: Homebound Reason: Patient requires assistance of a person or device to safely leave home, Leaving home requires considerable and taxing effort due to condition, Severity of cardiac or pulmonary status limits activity tolerance Attestation: My signature below is to certify that this patient is under my care and that I, or nurse practitioner, or a physician's retail event assistant working with me, has a face-to -face encounter with this patient.
[2017-04-09] MEDS ORDERED: Miconazole w/zinc oxide&karaya 92 APPL/92 GM TUBE TP SCH (14:30)
--- NOTE | 2017-04-09 17:05 | Palliative - Consult Note ---
Date of Encounter: 04/09/17 Time of Encounter: 12:30 - Assessment and Plan (1) Dyspnea Current Visit: Yes Status: Acute Assessment and plan: Will add Roxanol for home use. HOspice can titrate as needed. Prescription written Qualifiers: Dyspnea type: unspecified Qualified Code(s): R06.00 - Dyspnea, unspecified (2) Generalized pain Current Visit: Yes Status: Acute Assessment and plan: Continue [place] as at home and can utilized Roxanol for pain as well (3) Counseling regarding advanced care planning and goals of care Current Visit: Yes Status: Acute Assessment and plan: Long meeting with Manuel Andrade, [facility], Dr. Richey, and myself with pt //2daughters/son r/t goals of care. She is not a candidate for chemotherapy. Family has already discussed with pt and they desires to go home with hospice care. Per cardiology, pt will continue to need INR draws for Coumadin management r/t Mechanical Valve. Referral made to [facility] hospice. They will enroll pt this evening when she returns home. Provided emotional support to family. (4) Acute respiratory failure with hypoxia Current Visit: No Status: Acute (5) Lung cancer Current Visit: Yes Status: Acute Qualifiers: Qualified Code(s): C34.90 - Malignant neoplasm of unspecified part of unspecified bronchus or lung Palliative-CN HPI - Data of Consult Consult date: 04/09/17 Requesting Physician: Naveen Hatfield DO Primary Care Provider: Christoph Hughes - Consult Narrative History of present illness: Ms. Dewitt is a 71 year old female well known to the palliative care team with history of end stage COPD, metastatic lung cancer, atrial fibrillation, mechanical heart valve, and multiple other comorbidities, who was admitted after c/o tachycardia and shortness of breath at the [facility]. She was discharged f rom here last week to [facility] in [place]. She was began on Cardizem drip in ERShe has declined rapidly and has difficulty controlling shortness of breath and anxiety outside of the hospital. Upon my visit, family is present. Meeting held with pt and all family members as per goals of care discussion below. CC: Naveen Hatfield DO Past Med Surg Social Fam HX - Past Medical History Medical history: arthritis, atrial fibrillation, cancer, cardiomyopathy, CHF, COPD, fibromyalgia, hypertension, myocardial infarction, osteoporosis, RA, other Psychiatric history: no psych history - Past Surgical History Surgical History: angioplasty/stent, cholecystectomy, coronary bypass (CABG), heart valve replacement (Mitral valve), orthopedic, other - Social History Smoking Status: Former smoker Smokeless Tobacco Status: No Alcohol use: none Drug use: none - Family History Father Family Member Ethnicity: Non- Living Status: Age at : 60 Cause of : cancer Hx Family Cardiac Disorders: Yes (open heart) Hx Family Respiratory Disorders: No Hx Family Cancer: Yes (lung cancer) Hx Family GI Disorders: No Hx Family Endocrine Disorder: No Hx Family Neuromuscular Disorders: No Hx Family Neurologic Disorders: No Hx Family HEENT Disorders: No Hx Family Autoimmune Disorders: No Brother Family Member Ethnicity: Non- Living Status: Hx Family Cardiac Disorders: Yes ([place]) Mother Family Member Ethnicity: Non- Living Status: Age at : 62 Cause of : lung cancer Hx Family Cardiac Disorders: No Hx Family Respiratory Disorders: Yes (emphysema) Hx Family Cancer: Yes (lung cancer) Hx Family GI Disorders: No Hx Family Endocrine Disorder: No Hx Family Neuromuscular Disorders: No Hx Family Neurologic Disorders: No Hx Family HEENT Disorders: No Hx Family Autoimmune Disorders: No Medications and Allergies Allopurinol [Zyloprim 100 MG] 100 mg PO DAILY 11/24/15 [History] Budesonide/Formoterol 160/4.5 [Symbicort 160/4.5] 2 puff IH BIDR 11/24/15 [ History] Fluticasone Propionate Nasal [Flonase] 1 spray NS DAILY 11/24/15 [History] Gabapentin [Neurontin] 200 mg PO HS 11/24/15 [History] Loratadine [Claritin] 10 mg PO DAILY 11/24/15 [History] Montelukast [Singulair] 10 mg PO DAILY 11/24/15 [History] Nitroglycerin [Nitrostat] 0.4 mg SL Q5M PRN 11/24/15 [History] Nortriptyline [Pamelor] 10 mg PO HS 11/24/15 [History] Roflumilast [Daliresp] 500 mcg PO DAILY 11/24/15 [History] Umeclidinium [place] [Incruse Ellipta] 1 puff IH DAILY 12/17/15 [History] Atorvastatin [Lipitor] 10 mg PO HS 01/01/16 [History] Esomeprazole Magnesium [Nexium] 40 mg PO DAILY #30 dianne. 10/03/16 [Rx] HYDROcodone/Acet 5/325 mg [[place] 5-325 mg] 1 tab PO Q4HR PRN #14 tab 03/02/17 [ Rx] Amiodarone [Cordarone] 200 mg PO DAILY #30 tab 03/22/17 [Rx] Digoxin [Lanoxin] 0.125 mg PO DAILY #30 tab 03/22/17 [Rx] Diltiazem CD (24hr) [Cardizem CD] 360 mg PO DAILY #60 tab 03/22/17 [Rx] Furosemide [Lasix] 40 mg PO BID #60 tablet 03/22/17 [Rx] GuaiFENesin ER [Mucinex] 1,200 mg PO BID #20 tab 03/22/17 [Rx] LORazepam [Ativan] 0.5 mg PO TID PRN #20 tab 03/22/17 [Rx] Levalbuterol Neb [Xopenex Neb] 0.63 mg IH [id number] #120 inh 03/22/17 [Rx] Potassium Chloride [K-Tab ER] 20 meq PO DAILY #30 tab 03/22/17 [Rx] Oxygen 5 l IN CONT 03/25/17 [History] Warfarin [Coumadin] 2.5 mg PO WESA 03/25/17 [History] Loperamide [Imodium] 2 mg PO Q4HR PRN #20 capsule 03/29/17 [Rx] Acetylcysteine 10% 2 ml IH Q6H 04/08/17 [History] Ipratropium Neb [Atrovent Neb] 0.5 mg IH [id number] PRN 04/08/17 [History] Warfarin [Coumadin] 5 mg PO SUMOTU 04/08/17 [History] predniSONE [PredniSONE] 30 mg PO DAILY 04/08/17 [History] HYDROcodone/Acet 5/325 mg [[place] 5-325 mg] 1 tab PO Q4H PRN #20 tab 04/09/17 [Rx ] LORazepam [Lorazepam] 0.5 - 1 mg PO Q4-6H PRN #30 mls 04/09/17 [Rx] Morphine Oral CONC [Roxanol] 0.25 - 0.5 ml PO Q4H PRN #30 ml 04/09/17 [Rx] 3 Allergy/AdvReac Type Severity Reaction Status Date / Time ceftriaxone Allergy Hives Verified 03/25/17 15:16 ciprofloxacin Allergy Hives Verified 03/25/17 15:16 levofloxacin Allergy Hives Verified 03/25/17 15:16 vancomycin Allergy Rash Verified 03/25/17 15:16 All systems: reviewed and no additional remarkable complaints except as stated ( anxiety, shortness of breath, poor appetite,) Palliative Care-Exam - Constitutional Vitals: Temp Pulse Resp BP Pulse Ox 97.9 F 93 16 125/76 97 04/09/17 11:26 04/09/17 11:26 04/09/17 11:26 04/09/17 11:26 04/09/17 11:26 General appearance: Present: no acute distress - Head Head Exam: Present: normal inspection, normocephalic - Eye Eye exam: Present: normal appearance, PERRL - Respiratory Respiratory exam: Present: decreased breath sounds, wheezes - Cardiovascular Cardiovascular exam: Present: irregular rhythm - GI/Abdominal Exam GI/Abdominal exam: Present: normal bowel sounds, soft - Extremities Exam Extremities exam: Present: normal capillary refill, normal inspection - Neurological Exam Neurological exam: Present: alert, oriented X3, strengths equal and symetr throughout - Skin Skin exam: Present: dry, pallor, warm Internal Medicine - CN: Reslt - Labs CBC & Chem 7: 04/09/17 01:45 04/09/17 01:45 Labs: Short CBC 04/09/17 Range/Units 01:45 WBC 7.8 (4.3-11.1) K/mcL Hgb 8.0 L (11.5-15.4) g/dL Hct 27.1 L (35.3-44.9) % Plt Count 170 (140-400) K/mcL Neutrophils # 6.5 (1.6-8.9) K/mcL BMP 04/09/17 01:45 Sodium 139 Potassium 3.2 L Chloride 99 Carbon Dioxide 33 H BUN 18 Creatinine 0.69 Glucose 90 Calcium 7.9 L Cardiac Enzymes 04/08/17 04/09/17 04/09/17 Range/Units 20:41 01:45 08:30 Troponin I 0.07 H* 0.07 H* 0.07 H* (0-0.03) ng/mL Urine 04/08/17 Range/Units 20:30 Urine Color Yellow (Yellow) Urine Clarity Clear (Clear) Urine pH 6.5 (5.0-8.0) pH Units Ur Specific [place] 1.009 L (1.010-1.025) Urine Protein Negative (Neg-Trace) mg/dL Urine Glucose (UA) Normal (Normal) mg/dL - ABG Interpretation ABG results: PT/INR, D-dimer PT 34.4 Seconds (9.4-12.1) H 04/09/17 01:45 Consult Discharge Plan - Plan Instructions: Warfarin (Injection), Atrial Flutter (DC), Atrial Fibrillation ( DC), Chronic Obstructive Pulmonary Disease (DC), Vitamin K in Foods (DC), Vitamin K in Foods (GEN), Venous Thromboembolism (DC), Venous Thromboembolism ( GEN) Referrals: Christoph Hughes DO [Primary Care Provider] - Prescriptions: HYDROcodone/Acet 5/325 mg [[place] 5-325 mg] 1 tab PO Q4H PRN #20 tab PRN Reason: generalized pain LORazepam [Lorazepam] 0.5 - 1 mg PO Q4-6H PRN #30 mls PRN Reason: Anxiety Morphine Oral CONC [Roxanol] 0.25 - 0.5 ml PO Q4H PRN #30 ml PRN Reason: dyspnea/pain Palliative Quality Palliative Quality: Screen for Code Status: Yes, Screen for Goals of Care: Yes, Screen for Pain: Yes, If Pain Regimen Started, Initiate Bowel Regimen: Yes, Screen for Nausea/Vomitting: Yes Code Status: 04/08/17 14:45 Resuscitation Status: Active [RES] Routine Comment: Resuscitation Status: [id number]
[2017-04-09] MEDS ORDERED: *HR* Warfarin 2.5 MG TABLET PO SCH (18:00)
--- NOTE | 2017-04-12 17:50 | Electrocardiograph Report ---
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
== END 2017-04-09 18:45 | disposition hospice, home (50) ==
LOC: EMEROO 12:14 → 2NENU 12:14 → SUATTDRO 14:13 → 2NENU 15:36
PROVIDERS: ADMIT Internal Medicine; ATTEND Internal Medicine